=== PATIENT | male | born 1960 | race Caucasian/White ===

== ENCOUNTER 2024-06-16 12:46 | Inpatient (IN) | payer MEDICARE, SELFPAY ==
[2024-06-16] VITALS (7 sets, daily range): BP systolic 111–130; BP diastolic 60–66; PULSE 71–130; RESP 12–24; TEMP 37.1–37.8; O2SAT 93–99; BMI 56.2
--- NOTE | 2024-06-16 12:43 | ECG_ITS ---
APPROVED REPORT Exam: Resting ECG HR:102 bpm ECG Measurements Heart Rate 102 AXES QRSd 101 QRS 132 QT 365 T 115 QTc 424 Conclusion ATRIAL FIBRILLATION WITH RAPID VENTRICULAR RESPONSE POSSIBLE ANTERIOR MYOCARDIAL INFARCTION , OF INDETERMINATE AGE [30 ms Q WAVE IN V3/V4, OR R < 0.2 mV IN V4] ABNORMAL ECG UNCONFIRMED REPORT Electronically signed by : Cullen Felix, 06/16/2024 15:23:35
--- NOTE | 2024-06-16 12:50 | XR_ITS ---
FINAL REPORT CLINICAL HISTORY: Shortness of breath COMPARISON: None FINDINGS: A single frontal view of the chest was obtained. No acute pulmonary opacity is present. There is no evidence of effusion or pneumothorax. Mediastinum is unremarkable. There are fixation rods involving most of the thoracic spine. Heart size is mildly enlarged. IMPRESSION: Mild cardiomegaly. Reviewed, Interpreted and Dictated by Aixa Carrillo MD Transcribed by Amanda Landa Authenticated and [facility]
--- NOTE | 2024-06-16 12:54 | ED_ITS ---
<Statement entered by Jennifer Felix MD - 06/18/24 08:22> I was consulted by the KRISTY, and we discussed the complexity of the problems being addressed. I approved the treatment and management plan for this patient's care in the emergency department, thus performing a substantive portion of the medical decision making. Jennifer Felix MD, MOE, FACEP Discharge Plan Disposition Patient Disposition: Admitted Condition: Serious Prescriptions Prescriptions: No Action torsemide 20 mg tablet 20 mg PO DAILY Patient Comments: TAKE 1 TABLET BY MOUTH ONCE DAILY metoprolol succinate 50 mg tablet extended release 24 hr 50 mg PO DAILY Patient Comments: TAKE 1 TABLET BY MOUTH DAILY valsartan 40 mg tablet 40 mg PO DAILY Patient Comments: TAKE 1 TABLET BY MOUTH DAILY Referrals Follow up/Referrals: Saulo Martinez DO [Primary Care Provider] - See instructions Clinical Impressions Clinical Impression: Adult failure to thrive Cellulitis Qualifiers: Site of cellulitis: extremity Site of cellulitis of extremity: lower extremity Laterality: left Qualified Code(s): L03.116 - Cellulitis of left lower limb Acute exacerbation of CHF (congestive heart failure) Qualifiers: Heart failure type: unspecified Qualified Code(s): I50.9 - Heart failure, unspecified Print Language Print Language: Nigerian Discharge ED Provider: Gino Ardon General Adult HPI General Chief complaint: Weakness Stated complaint: Weakness/LE swelling Time Seen by Provider: 06/16/24 12:50 Mode of Arrival: EMS Source of Information: Patient and EMS Description of Symptoms (Recalled from ER Triage Doc. by RN): increased weakness,fever, wounds. pt spemt 3 weeks in [facility], discharged 3 weeks ago History of Present Illness HPI narrative: Patient presents for increasing swelling weakness redness of his legs. Patient has multiple comorbidities and is spent the majority of April and May hospitalized or in acute rehab. We are waiting on the discharge summary from [facility] for full summary however patient reportedly arrived in March in bad shape with multiple infected decubitus ulcers diabetic foot ulcers venous stasis ulcers. Patient reports that they diuresed over 115 pounds from him over the course of his hospital stays and reports that he weighed 388 pounds at the time of his discharge 3 weeks ago. Patient is residing with his sister who is helping with wound care however she is of limited resources and given the patient's body habitus very difficult to manage him fully. He apparently was not a candidate for rehab placement after his last discharge and so they have been trying to manage at home. Patient also reports that he has been unable to check his blood sugar his he does not have access to a glucometer, he is supposed to be on Eliquis for chronic A-fib has been out of that since his discharge. He does not have a local doctor as he is from [place] and has not establish care with 1 on an outpatient basis yet. Patient denies chest pain fever chills hemoptysis hematochezia melena nausea vomiting diarrhea but does endorse that he has chronic wounds on both the backs of his legs and on his buttocks. He reports that his left leg has turned significantly red proximally which is new since his discharge as well. Related Data Home Medications ?Medication ?Instructions ?Recorded ?Confirmed metoprolol succinate 50 mg 50 mg PO DAILY 06/16/24 06/16/24 tablet,extended release 24 hr torsemide 20 mg tablet 20 mg PO DAILY 06/16/24 06/16/24 valsartan 40 mg tablet 40 mg PO DAILY 06/16/24 06/16/24 Allergies Allergy/AdvReac Type Severity Reaction Status Date / Time hydromorphone (From Dilaudid) AdvReac Vomiting Verified 06/16/24 12:57 morphine AdvReac Vomiting Verified 06/16/24 12:57 [facility] Disclaimer: The information contained in this section may have been updated after the patient was seen, as this information can be updated by other users. Social History Smoking Status: Never smoker alcohol intake: never current occupational status: retired and disabled Travel in the last 8 weeks: None ROS Obtained: Yes Systems reviewed as appropriate & no additional complaints except as documented Physical Exam General General appearance: alert and in no apparent distress Respiratory Respiratory exam: Present normal lung sounds bilaterally Cardiovascular Cardiovascular exam: Present tachycardia and irregular rhythm Neurological Exam Neurological exam: Present alert, oriented X3 and CN II-XII intact Medical Decision Making Medical Records Medical records reviewed: Yes I reviewed the patient's medical records. Screening: Per USPSTF and CDC recommendations, given the prevalence of disease in our region, it is our hospital?s policy to screen for HIV and viral Hepatitis for all patients aged 18 and over and those with ongoing risk factors. Madi Inquiry Pt receiving controlled substance: No Vital Signs: 06/16/24 12:49 06/16/24 13:00 06/16/24 13:30 Temperature 98.7 F Temperature Source Oral Pulse Rate 94 H 105 H Pulse Rate [Right] 102 H Respiratory Rate 24 12 Blood Pressure 124/66 129/64 Blood Pressure [Right Arm] 111/63 Blood Pressure Mean 94 Blood Pressure Mean [Right Arm] 79 02 Sat by Pulse Oximetry 97 97 98 Oxygen Delivery Method Room Air Room Air Room Air 06/16/24 14:00 Temperature Temperature Source Pulse Rate 90 Pulse Rate [Right] Respiratory Rate 14 Blood Pressure 125/65 Blood Pressure [Right Arm] Blood Pressure Mean Blood Pressure Mean [Right Arm] 02 Sat by Pulse Oximetry 97 Oxygen Delivery Method Room Air Lab Data Lab results reviewed: Yes I reviewed the patient's lab results. Lab Results 06/16/24 12:55: Sodium 133 L, Potassium 4.3, Chloride 96 L, Carbon Dioxide 32 H, Anion Gap 9.3, BUN 30 H, Creatinine 0.90, Estimated Creat Clear 92, Estimated GFR 86, Est GFR ( Amer) 103, Glucose 330 H, Calcium 9.0, Magnesium 2.0, Total Bilirubin 0.4, AST 28, ALT 27, Alkaline Phosphatase 183 H, Troponin I < 0.01, NT-Pro-B Natriuret Pep 3540 H, Total Protein 6.9, Albumin 3.7, Globulin 3.2, Albumin/Globulin Ratio 1.2, Procalcitonin 0.301 06/16/24 12:57: WBC 10.9 H, RBC 4.21 L, Hgb 10.3 L, Hct 33.5 L, MCV 79.6 L, MCH 24.5 L, MCHC 30.7 L, RDW 17.9 H, Plt Count 303, MPV 9.8, Neut % (Auto) 84.4 H, L ymph % (Auto) 9.4 L, [place] % (Auto) 5.0, Eos % (Auto) 0.6, Baso % (Auto) 0.1, N eut # (Auto) 9.2 H, Lymph # (Auto) 1.0, [place] # (Auto) 0.5, Eos # (Auto) 0.1, Baso # (Auto) 0.0, PT 11.4, INR 1.02 06/16/24 13:03: VBG pH 7.34, VBG pCO2 54.8 H, VBG pO2 34.2, VBG HCO3 29.0, VBG Total CO2 30.7 H, VBG O2 Saturation 62.1, VBG Base Excess 3.3 H, VBG Lactic Acid 1.2 06/16/24 13:05: Chlamy pneumoniae PCR Not detected, Adenovirus (PCR) Not detected, B. pertussis DNA (PCR) Not detected, Coronavirus OC43 (PCR) Not detected, Coronavirus HKU1 (PCR) Not detected, Coronavirus 229E (PCR) Not detected, SARS-CoV-2 (PCR) Not detected, Coronavirus NL63 (PCR) Not detected, Human Metapneumovir PCR Not detected, Influenza A (H1) PCR Not detected, Influ A (H1N1/09) PCR Not detected, Influenza A (H3) PCR Not detected, Influenza Type A (PCR) Not detected, Influenza Type B (PCR) Not detected, M. pneumoniae (PCR) Not detected, Parainfluenza 1 (PCR) Not detected, Parainfluenza 2 (PCR) Not detected, Parainfluenza 3 (PCR) Not detected, Parainfluenza 4 (PCR) Not detected, RSV (PCR) Not detected, Entero/Rhino (PCR) Not detected 06/16/24 12:57 06/16/24 12:55 Orders (Tests/Meds): ED MEDICATIONS Generic Name Dose Route Start Last Admin Trade Name Freq PRN Reason Stop Dose Admin Benzonatate 100 mg 06/16/24 15:30 06/16/24 15:23 Benzonatate 100mg Capsule PO 07/16/24 15:29 100 mg ONCE JESSICA Administration Vancomycin HCl 3,000 mg/ 500 mls @ 166.667 mls/hr 06/16/24 15:00 06/16/24 14:53 Sodium Chloride IV 06/16/24 17:59 166.667 mls/hr ONCE ONE Administration Discontinued Medications Generic Name Dose Route Start Last Admin Trade Name Freq PRN Reason Stop Dose Admin Albuterol/Ipratropium 3 ml 06/16/24 15:36 06/16/24 15:38 Ipratropium/Albuterol 3 Ml Neb IH 06/16/24 15:37 3 ml ONCE ONE Administration Bumetanide 1 mg 06/16/24 14:07 06/16/24 14:36 Bumetanide 1mg/4ml Vial IV 06/16/24 14:08 1 mg ONCE ONE Administration Ketorolac Tromethamine 15 mg 06/16/24 13:43 06/16/24 13:49 Ketorolac 30mg/Ml Vial IV 06/16/24 13:44 15 mg ONCE ONE Administration Miscellaneous 1 each 06/16/24 14:45 Vancomycin Consult Request NOTAPPLIC 07/16/24 14:44 CONSULT PHARMACY [facility] Ondansetron HCl 4 mg 06/16/24 13:07 06/16/24 13:14 Ondansetron 4mg/2ml Vial IV 06/16/24 13:08 4 mg ONCE ONE Administration ORDERS Category Date Time Status Chest XR -- portable [XR chest portable] Stat Exams 06/16/24 12:50 Completed BNP [NT Pro Brain Natriuretic Pep.] Stat Lab 06/16/24 12:55 Completed CBC w/Auto Diff [Complete Blood Count Auto Diff] Stat Lab 06/16/24 12:57 Completed CMP [Comprehensive Metabolic Panel] Stat Lab 06/16/24 12:55 Completed Full Resp Panel w/COVID ([facility]) Routine Lab 06/16/24 13:05 Completed INR [Prothrombin Time INR] Stat Lab 06/16/24 12:57 Completed Magnesium Stat Lab 06/16/24 12:55 Completed Procalcitonin Stat Lab 06/16/24 12:55 Completed Trop I [Troponin I] Stat Lab 06/16/24 12:55 Completed Troponin I Q3H Lab 06/16/24 16:00 Ordered Troponin I Q3H Lab 06/16/24 19:00 Ordered UA [Urinalysis and Microscopic] Stat Lab 06/16/24 12:51 Ordered Blood Culture Stat Micro 06/16/24 12:57 Received Wound Culture and Gram Stain Stat Micro 06/16/24 14:35 Results VBG [Venous Blood Gas] Stat RT 06/16/24 13:03 Completed Tissue Perfus/Sepsis Re-Eval Sepsis Re-Evaluation Performed: Yes Date Performed: 06/16/24 Time Performed: 14:52 HEART Score History (anamnesis): Slightly suspicious ECG: Non-specific disturbance Age: 45-65 years Risk factors: Atherosclerosis history Troponin: </= normal limit HEART Score: 4 Medical Decision Narrative: In summary patient is a 83-year-old male who presents to the emergency department for evaluation of asthenia and volume overload. Patient is initially normotensive at 111/63 and atrial fibrillation with rapid ventricular response but a rate hovering around 100 and atrial fibrillation RVR on the bedside monitor breathing 24 times a minute satting at 97% on room air upon arrival, afebrile at 98.7. Physical exam is remarkable for a severely morbidly obese, with a BMI of 56 which is only an estimate as he is heavier than our scales in the ER can weigh, who appears to be breathless but otherwise in no acute distress. Physical exam is remarkable for multiple stages of wounds across his entire torso but predominantly concerning all the ones on his posterior calves and buttocks. The ones on his buttocks appear to be superficial the ones on his bilateral posterior lower extremities appear to be venous stasis versus pressure or both. Both feet are erythematous appearing he has tense brawny edema and brawny skin. There is erythema however of the proximal left thigh and the borders have been marked by myself. He also has an area on his right flank that is also been marked by myself. He has no fluctuance no actual purulence noted. Patient has clear breath sounds currently without adventitious sounds noted.. Differential diagnosis includes cellulitis versus lymphangitis versus venous stasis versus heart failure versus hyperglycemia versus blood clot versus sepsis etc. Initial workup will be conducted with [facility] labs twelve-lead EKG plain film chest x-ray analysis.. Initial interventions were considered include fluid challenge versus diuresis versus antibiotics however will await initial workup before initiating as patient is currently hemodynamically stable. Initial workup reviewed by me and his hematologic labs are remarkable for white count of 10.9 hemoglobin and hematocrit of 10.3 and 33.5 respectively with a platelet count of 303 absolute neutrophil count of 9.2, INR is 1.02, VBG shows pH 7.34 with a VBG lactic acid of 1.2. CMP is significant for a sodium of 133 potassium 4.3 CO2 of 32 gap of 9.3 creatinine 0.9 GFR is 86 serum glucose 330, alk phos 183 initial troponin is less than 0.01 NT proBNP is elevated at 3540 and my informal interpretation of his plain from chest x-ray shows no pleural effusions or significant pulmonary edema but does show cardiomegaly. Given his volume overload we have initiated blood cultures, Bumex dose and then started vancomycin. I then had a direct discussion with hospital medicine regarding patient SURESH findings and patient management and he will subsequently be admitted for further evaluation and care.. Critical Care Critical Care Time Critical Care Time: Yes Attestation: On 06/16/24, the high probability of a clinically significant, sudden or life threatening deterioration of the following system(s) required my full and direct attention, intervention and personal management. The time I documented below is in addition to time spent performing reported procedures but includes the following listed in this critical care notation. Total Time Total Critical Care Time: 35
--- NOTE | 2024-06-16 13:04 | PC.NURSE ---
trent guerrier spoke with magdi from respiratory about VBG sent to lab
[2024-06-16 13:07] LABS: Lactate Venous 1.2 mmol/L (0.4-2.0); VBG Base Excess 3.3 mmol/L (-2.4-2.3); VBG Oxygen Saturation 62.1 % (50-70); VBG PCO2 54.8 mmol/L (35-51); VBG PH 7.34 mmol/L (7.31-7.41); VBG PO2 34.2 mmol/L (28-40); VBG Total CO2 30.7 mmol/L (23-27)
[2024-06-16 13:09] LABS: Adenovirus,PCR Not Detected (NotDetected); Bordetella Pertussis Not Detected (NotDetected); Chlamydophila Pneumoniae, PCR Not Detected (NotDetected); Coronavirus 19, PCR Not Detected (NotDetected); Coronavirus 229E Not Detected (NotDetected); Coronavirus NL63 Not Detected (NotDetected); Coronavirus OC43 Not Detected (NotDetected); Coronovirus HKU1,PCR Not Detected (NotDetected); Human Metapneumovirus Not Detected (NotDetected); Influenza A, PCR Not Detected (NotDetected); Influenza AH1, 2009 Not Detected (NotDetected); Influenza AH1, PCR Not Detected (NotDetected); Influenza AH3,PCR Not Detected (NotDetected); Influenza B, PCR Not Detected (NotDetected); Mycoplasma Pneumoniae, PCR Not Detected (NotDetected); Parainfluenza 1, PCR Not Detected (NotDetected); Parainfluenza 2, PCR Not Detected (NotDetected); Parainfluenza 3, PCR Not Detected (NotDetected); Parainfluenza 4, PCR Not Detected (NotDetected); Respiratory Syncytial Virus Not Detected (NotDetected); Rhinovirus/Enterovirus Not Detected (NotDetected)
[2024-06-16 13:11] LABS: Basophils % 0.1 % (0.1-2.0); Eosinophils # 0.1 K/mm3 (0.0-0.4); Eosinophils % 0.6 % (0.1-12.0); Hematocrit 33.5 % (42.0-52.0); Hemoglobin 10.3 g/dL (14.1-18.0); Lymphocytes % 9.4 % (10-50); Mean Corpuscular HGB Conc 30.7 g/dL (31.8-35.4); Mean Corpuscular Hemoglobin 24.5 pg (27.0-31.2); Mean Corpuscular Volume 79.6 fl (80-94); Mean Platelet Volume 9.8 fl (7.4-10.4); Monocytes # 0.5 K/mm3 (0.1-1.0); Neutrophils # 9.2 K/mm3 (1.8-7.8); Neutrophils % 84.4 % (37.0-80.0); Platelet Count 303 K/mm3 (142-424); Red Blood Count 4.21 M/mm3 (4.60-6.20); Red Cell Distribution Width 17.9 % (11.5-17.5); White Blood Count 10.9 K/mm3 (4.8-10.8)
[2024-06-16] MEDS: ONDANSETRON 4MG/2ML VIAL 4 MG IV ×2 (13:14→22:48)
[2024-06-16 13:15] LABS: Albumin Level 3.7 g/dl (3.5-5.0); Chloride 96 mmol/L (98-107)
[2024-06-16 13:16] LABS: Sodium 133 mmol/L (136-145)
[2024-06-16 13:18] LABS: Blood Urea Nitrogen 30 mg/dl (9-20); Carbon Dioxide 32 mmol/L (22.0-30.0); Creatinine Clearance Estimated 92 mL/min (50-200); Estimated Glomerular Filt Rate 86 ml/min (>60); GFR (African American) 103 ML/MIN (>60)
[2024-06-16 13:19] LABS: Alanine Aminotransferase 27 U/L (12-78); Albumin/Globulin Ratio 1.2 (1.1-1.8); Alkaline Phosphatase 183 U/L (38-126); Anion Gap 9.3 mEq/L (5-15); Aspartate Amino Transferase 28 U/L (17-59); Bilirubin,Total 0.4 mg/dl (0.2-1.3); Globulin 3.2 g/dL (1.3-3.2); Glucose 330 mg/dl (74-100); Potassium 4.3 mmoL/L (3.5-5.1); Total Protein,Serum 6.9 g/dl (6.3-8.2)
[2024-06-16 13:20] LABS: INR 1.02 (0.9-1.1); Prothrombin Time 11.4 seconds (10.1-12.5)
[2024-06-16 13:27] LABS: NT Pro Brain Natriuretic Pep. 3540 pg/mL (0-125)
[2024-06-16 13:35] LABS: Troponin I < 0.01 ng/ml (0.00-0.034)
[2024-06-16] MEDS: KETOROLAC 30MG/ML VIAL 15 MG IV (13:49)
--- NOTE | 2024-06-16 14:13 | PC.NURSE ---
Called [facility] to receive records.
--- NOTE | 2024-06-16 14:31 | PC.NURSE ---
cultures obtained of pts wounds in perineum
--- NOTE | 2024-06-16 14:35 | PC.NURSE ---
Received records from [facility], given to MIAH LEAL
[2024-06-16] MEDS: BUMETANIDE 1MG/4ML VIAL 1 MG IV (14:36)
[2024-06-16] MEDS: SODIUM CHLORIDE 0.9% IV (14:53)
[2024-06-16] MEDS: VANCOMYCIN HCL IV (14:53)
[2024-06-16 14:57] LABS: Procalcitonin 0.301 ng/mL (0.0-2.0)
--- NOTE | 2024-06-16 15:22 | [facility].PHAINT1 ---
Pharmacy Intervention Comments: MEDICATION RECONCILIATION COMPLETED ON PATIENT USING EXTERNAL FILL HISTORY FROM PHARMACY. -LISA CALDERON, JEANCARLOSD
[2024-06-16] MEDS: BENZONATATE 100MG CAPSULE 100 MG PO (15:23)
[2024-06-16] MEDS: IPRATROPIUM/ALBUTEROL 3 ML NEB IH ×2 (15:38→20:33)
--- NOTE | 2024-06-16 15:40 | PC.NURSE ---
at bs with pt and famiy member
--- NOTE | 2024-06-16 15:42 | PC.NURSE ---
I rounded on the pt and took him two pillows to help resposition for comfort. no other needs voiced. no new complaints. call wynne in reach.
--- NOTE | 2024-06-16 15:54 | PC.NURSE ---
Dr. Wu at BS for update on POC
--- NOTE | 2024-06-16 16:10 | PC.NURSE ---
AB RN called and requested a bed for admission
--- NOTE | 2024-06-16 16:14 | EXP.HP ---
History of Present Illness *Admission Date: 06/16/24 *Reason for visit:: Shortness of breath, swelling and redness in left leg *History of present illness: Mr. Christiansen is a 63-year-old male who was recently moved to the area to live with his sister due to poor health and declining status living with family in [place]. He has a history of morbid obesity, CHF, diabetes, LORI. Had developed significant debility and numerous pressure wounds. Per review of notes from [facility] and ER documentation, the patient had recently spent 6 weeks hospitalized at [facility] for heart failure, infected decubitus wounds, osteomyelitis of his foot status post amputation, and significant debility. He discharged to rehab for several weeks and then got readmitted to [facility] for 3 more weeks due to recurrent heart failure and volume overload. Was not a candidate for rehab placement after that admission and discharged home where he has been for approximately 3 weeks. Has not had follow-up as an outpatient with PCP or specialists as of yet. Taking some but not all of the medications prescribed at last visit. Has not been on blood thinners due to cost and insurance issues. Received stents in his lower extremities due to peripheral artery disease during one of his previous hospitalizations. Diabetes has been poorly controlled as he has not had a glucometer. He presented to the ER today due to worsening weakness, shortness of breath, swelling in legs and redness especially in his left leg. On presentation, concern for acute on chronic heart failure, volume overload, cellulitis. Patient's weight is up approximately 40 pounds from his last documented weight and discharge from [facility] several weeks ago. He has draining ulcerative wounds on his lower extremities. Redness progressing up his left leg almost to his thigh. Also has a red patch of skin on his right side. Decubitus wound on his bottom reportedly appears better than images from when he first presented to [facility] in March. He is afebrile and has normal kidney function on labs and a white count of 10.9. Is dyspneic, unable to lay flat due to shortness of breath, chest imaging positive for cardiomegaly. Medicine was consulted for consideration for admission and further management. On evaluation, patient appears in moderate distress. Is morbidly obese and chronically ill. Able to answer questions but dyspneic after each sentence. On room air with sats in the low 90s. Currently receiving IV vancomycin. Received one-time dose of Bumex in the ER. After evaluation, determination made that patient was appropriate for admission at this time as there is no emergent need for transfer however had candid conversation with patient that if he has worsening condition, needs imaging such as CT's, we may have to transfer due to his size and complexity and limitations of our facility. Patient states understanding. Patient sisters at bedside helps supplement history. [facility] Disclaimer: The information contained in this section may have been updated after the patient was seen, as this information can be updated by other users. Medical History LORI (obstructive sleep apnea) Social History Smoking Status: Never smoker alcohol intake: never current occupational status: retired and disabled Travel in the last 8 weeks: None Have you lived/traveled outside US in past 30 days?: No Contact w/someone who lives/traveled outside US past 30 days?: No Exposure to someone with infectious disease in past 14 days?: No Do you have a fever (greater than 100.4 F or 38 C)?: No Have you tested positive for COVID-19: No Exposed to someone with COVID-19 in past 14 days?: No Do you have a sore throat?: No Do you have a cough?: No Do you have any weakness?: No Do you have any diarrhea?: No Are you experiencing any unusual bleeding?: No Do you have any muscle aches/pain?: No Do you have any abdominal pain?: No Are you experiencing loss of taste or smell?: No Review of Systems Review of Systems Review of systems (narrative): 14 point review of systems performed, pertinent positives and negatives as per HPI Meds Home Medications and Allergies Home Medications ?Medication ?Instructions ?Recorded ?Confirmed ?Type metoprolol succinate 50 mg 50 mg PO DAILY 06/16/24 06/16/24 History tablet,extended release 24 hr torsemide 20 mg tablet 20 mg PO DAILY 06/16/24 06/16/24 History valsartan 40 mg tablet 40 mg PO DAILY 06/16/24 06/16/24 History New Prescriptions to Start Prescriptions: Allergies Allergy/AdvReac Type Severity Reaction Status Date / Time hydromorphone (From Dilaudid) AdvReac Vomiting Verified 06/16/24 12:57 morphine AdvReac Vomiting Verified 06/16/24 12:57 Exam Data for Last 24 hours Vital signs and Labs for Last 24 Hours: Temp Pulse Resp BP Pulse Ox O2 Del Method 98.7 F 90 14 125/65 97 Room Air 06/16/24 12:49 06/16/24 14:00 06/16/24 14:00 06/16/24 14:00 06/16/24 14:00 06/16/24 14:00 Laboratory Results - last 24 hr 06/16/24 12:55: Sodium 133 L, Potassium 4.3, Chloride 96 L, Carbon Dioxide 32 H, Anion Gap 9.3, BUN 30 H, Creatinine 0.90, Estimated Creat Clear 92, Estimated GFR 86, Est GFR ( Amer) 103, Glucose 330 H, Calcium 9.0, Magnesium 2.0, Total Bilirubin 0.4, AST 28, ALT 27, Alkaline Phosphatase 183 H, Troponin I < 0.01, NT-Pro-B Natriuret Pep 3540 H, Total Protein 6.9, Albumin 3.7, Globulin 3.2, Albumin/Globulin Ratio 1.2, Procalcitonin 0.301 06/16/24 12:57: WBC 10.9 H, RBC 4.21 L, Hgb 10.3 L, Hct 33.5 L, MCV 79.6 L, MCH 24.5 L, MCHC 30.7 L, RDW 17.9 H, Plt Count 303, MPV 9.8, Neut % (Auto) 84.4 H, Lymph % (Auto) 9.4 L, [place] % (Auto) 5.0, Eos % (Auto) 0.6, Baso % (Auto) 0.1, Neut # (Auto) 9.2 H, Lymph # (Auto) 1.0, [place] # (Auto) 0.5, Eos # (Auto) 0.1, Baso # (Auto) 0.0, PT 11.4, INR 1.02 06/16/24 13:03: VBG pH 7.34, VBG pCO2 54.8 H, VBG pO2 34.2, VBG HCO3 29.0, VBG Total CO2 30.7 H, VBG O2 Saturation 62.1, VBG Base Excess 3.3 H, VBG Lactic Acid 1.2 06/16/24 13:05: Chlamy pneumoniae PCR Not detected, Adenovirus (PCR) Not detected, B. pertussis DNA (PCR) Not detected, Coronavirus OC43 (PCR) Not detected, Coronavirus HKU1 (PCR) Not detected, Coronavirus 229E (PCR) Not detected, SARS-CoV-2 (PCR) Not detected, Coronavirus NL63 (PCR) Not detected, Human Metapneumovir PCR Not detected, Influenza A (H1) PCR Not detected, Influ A (H1N1/09) PCR Not detected, Influenza A (H3) PCR Not detected, Influenza Type A (PCR) Not detected, Influenza Type B (PCR) Not detected, M. pneumoniae (PCR) Not detected, Parainfluenza 1 (PCR) Not detected, Parainfluenza 2 (PCR) Not detected, Parainfluenza 3 (PCR) Not detected, Parainfluenza 4 (PCR) Not detected, RSV (PCR) Not detected, Entero/Rhino (PCR) Not detected I & O for Last 24 hours: Intake & Output 06/13/24 06/14/24 06/15/24 06/16/24 23:59 23:59 23:59 23:59 Weight 204.117 kg Microbiology Reports for the Last 24 Hours: Microbiology 06/16/24 14:35 Buttock Gram Stain - Final Constitutional Constitutional: mild distress, morbidly obese, chronically ill appearing, disheveled and cooperative *Routine HEENT Exam Head: Present normocephalic Eye: Present EOMI and PERRL ENT: Present mucous membranes moist *Routine Neck Exam Neck: Present supple; Absent lymphadenopathy *Routine Respiratory Exam Respiratory: Present prolonged expiratory phase, rhonchi, crackles (bases) and distant breath sounds; Absent wheezes *Routine Cardiovascular Exam Cardiovascular: Present RRR *Routine Abdominal Exam Abdominal: Present soft, normoactive bowel sounds and obese; Absent tenderness *Routine Rectal Exam Rectal:: deferred *Routine Genitalia Exam Genitalia:: deferred *Routine Extremities Exam Extremities: Present edema (4+ to abdomen); Absent cyanosis or clubbing *Routine Skin Exam Skin: Present cyanosis (Left foot), erythema (up left leg to thigh), warm, lesions, wounds and rash; Absent mottling Comments: Stasis changes in bilateral lower extremities. Ulcerations posterior lower extremities bilaterally with weeping of serous fluid. Numerous excoriations on extremities and torso *Routine Neurological Exam Neurological: Present alert and oriented X3 Assessment and Plan *Assessment and plan (1) Acute on chronic heart failure with preserved ejection fraction (HFpEF): Status: Acute Category: Medical Code(s): I50.33 - Acute on chronic diastolic (congestive) heart failure (2) Morbid obesity with BMI of 50.0-59.9, adult: Status: Acute Category: Medical Code(s): E66.01 - Morbid (severe) obesity due to excess calories; Z68.43 - Body mass index [BMI] 50.0-59.9, adult (3) Volume overload: Status: Acute Category: Medical Code(s): E87.70 - Fluid overload, unspecified (4) Venous stasis ulcer of both lower extremities without varicose veins: Status: Acute Category: Medical Code(s): I87.2 - Venous insufficiency (chronic) (peripheral); L97.919 - Non-pressure chronic ulcer of unspecified part of right lower leg with unspecified severity; L97.929 - Non-pressure chronic ulcer of unspecified part of left lower leg with unspecified severity (5) Cellulitis of left lower extremity: Status: Acute Category: Medical Code(s): L03.116 - Cellulitis of left lower limb (6) Microcytic anemia: Status: Acute Category: Medical Code(s): D50.9 - Iron deficiency anemia, unspecified (7) Adult failure to thrive: Status: Acute Category: Medical Code(s): R62.7 - Adult failure to thrive (8) LORI (obstructive sleep apnea): Status: Acute Category: Medical Code(s): G47.33 - Obstructive sleep apnea (adult) (pediatric) (9) Diabetes mellitus: Status: Acute Category: Medical Code(s): E11.9 - Type 2 diabetes mellitus without complications Plan 63-year-old male with morbid obesity, acute on chronic HFpEF, volume overload, cellulitis. Discussed case with ER physician, after much discussion and evaluation of patient, decision made to admit for acute on chronic conditions, IV antibiotics, aggressive diuresis, and evaluation by therapy for possible placement. Acute on Chronic HFpEF A-fib Hypertension -Reviewed limited echo from records from [facility], shows diastolic dysfunction with preserved EF. Cardiomegaly on chest imaging. Aggressive diuresis due to volume overload, patient has at least 40 pounds of fluid based on his weights on discharge from [facility] and current weight on admission. Initiated on Bumex drip 0.5 mg/h. Place Chiu for strict I's and O's. -Anticipate electrolyte shifts, potassium 4.3, sodium 133. Will monitor electrolytes closely with CBC, CMP, magnesium ordered for the morning. Electrolyte protocol replacement ordered. -Repeat echo ordered to evaluate EF and RVSP. Cardiology consulted to assist with management and medical optimization. -Supplemental oxygen if needed, currently stable on room air. Goal sats greater 90% -Resume metoprolol succinate 50 mg daily. Will hold on ARELY/ARB/ARNI pending cardiology recommendations -Aspirin 81 mg daily. -Eliquis 40 mg SQ twice daily, will discuss NOAC with cardiology due to [id number] risk. Diabetes: - A1c 9.9. Initiate sliding scale insulin with fingersticks ACHS. Will initiate 20 units Lantus this evening. Evaluate morning glucose. If remains above 150, will double Lantus to 40 units tomorrow. Diabetic counseling during admission from nutrition. Diabetic diet of 1800 jone. -Will consider initiation of Jardiance for diabetes and heart failure as above cellulitis -White count 10.9. ESR and CRP ordered. Repeat inflammatory markers with ESR and CRP ordered for the morning to trend Chronic stasis dermatitis with decubitus ulcers -Concern for cellulitis in left lower leg. Initiate vancomycin IV and cefepime 2gm q8h -Blood cultures obtained and pending along with wound culture from foot. -Wound consult placed for decubitus ulcers on bilateral posterior legs -Mupirocin for excoriations on torso -If wounds on foot worsen, will consider podiatry consult next week when she is back in the hospital. Kidney function appears normal at this time with BUN of 30, creatinine 0.9. Monitor for LUPE. Microcytic anemia: Hemoglobin 10.3. Transfusion threshold hemoglobin less than 7. No active signs of bleeding. Iron studies ordered for the morning, will consider replacement pending study results LORI: Consider oxygen at night versus CPAP after discussion with patient about his home regimen. Morbid obesity complicates all aspects of his care. PT and OT consulted along with social work to assist with dispo planning in next site of care Full code Lovenox 40 mg SQ twice daily Diabetic diet
--- NOTE | 2024-06-16 16:21 | P.CONPHA_ITS ---
Pharmacy Consult Date: 06/16/24 Time: 16:21 Referring provider: DR. ROBERTS Reason for Consult:: VANCOMYCIN DOSING Allergies Allergy/AdvReac Type Severity Reaction Status Date / Time hydromorphone (From Dilaudid) AdvReac Vomiting Verified 06/16/24 12:57 morphine AdvReac Vomiting Verified 06/16/24 12:57 Home Medications ?Medication ?Instructions ?Recorded ?Confirmed ?Type metoprolol succinate 50 mg 50 mg PO DAILY 06/16/24 06/16/24 History tablet,extended release 24 hr torsemide 20 mg tablet 20 mg PO DAILY 06/16/24 06/16/24 History valsartan 40 mg tablet 40 mg PO DAILY 06/16/24 06/16/24 History New Prescriptions to Start Prescriptions: Height: 1.91 m Weight: 204.117 kg Laboratory Results:: Laboratory Results - last 24 hr 06/16/24 12:55: Sodium 133 L, Potassium 4.3, Chloride 96 L, Carbon Dioxide 32 H, Anion Gap 9.3, BUN 30 H, Creatinine 0.90, Estimated Creat Clear 92, Estimated GFR 86, Est GFR ( Amer) 103, Glucose 330 H, Calcium 9.0, Magnesium 2.0, Total Bilirubin 0.4, AST 28, ALT 27, Alkaline Phosphatase 183 H, Troponin I < 0.01, NT-Pro-B Natriuret Pep 3540 H, Total Protein 6.9, Albumin 3.7, Globulin 3.2, Albumin/Globulin Ratio 1.2, Procalcitonin 0.301 06/16/24 12:57: WBC 10.9 H, RBC 4.21 L, Hgb 10.3 L, Hct 33.5 L, MCV 79.6 L, MCH 24.5 L, MCHC 30.7 L, RDW 17.9 H, Plt Count 303, MPV 9.8, Neut % (Auto) 84.4 H, Lymph % (Auto) 9.4 L, [place] % (Auto) 5.0, Eos % (Auto) 0.6, Baso % (Auto) 0.1, Neut # (Auto) 9.2 H, Lymph # (Auto) 1.0, [place] # (Auto) 0.5, Eos # (Auto) 0.1, Baso # (Auto) 0.0, PT 11.4, INR 1.02 06/16/24 13:03: VBG pH 7.34, VBG pCO2 54.8 H, VBG pO2 34.2, VBG HCO3 29.0, VBG Total CO2 30.7 H, VBG O2 Saturation 62.1, VBG Base Excess 3.3 H, VBG Lactic Acid 1.2 06/16/24 13:05: Chlamy pneumoniae PCR Not detected, Adenovirus (PCR) Not detected, B. pertussis DNA (PCR) Not detected, Coronavirus OC43 (PCR) Not detected, Coronavirus HKU1 (PCR) Not detected, Coronavirus 229E (PCR) Not detected, SARS-CoV-2 (PCR) Not detected, Coronavirus NL63 (PCR) Not detected, Human Metapneumovir PCR Not detected, Influenza A (H1) PCR Not detected, Influ A (H1N1/09) PCR Not detected, Influenza A (H3) PCR Not detected, Influenza Type A (PCR) Not detected, Influenza Type B (PCR) Not detected, M. pneumoniae (PCR) Not detected, Parainfluenza 1 (PCR) Not detected, Parainfluenza 2 (PCR) Not detected, Parainfluenza 3 (PCR) Not detected, Parainfluenza 4 (PCR) Not detected, RSV (PCR) Not detected, Entero/Rhino (PCR) Not detected Assessment and Plan Assessment and plan all Dx Assessment and Plan for all problems:: Pharmacokinetic dosing service Objective: Patient: Floor: Age: 63 yo Serum creatinine: 0.90 mg/dL Height: 75.0 Inches Weight (kg): 204.1 Assessment: IBW (kg): 84.50 Dosing wt(kg): 204.1 Estimated Creatinine clearance (ml/min): 101.7 CRCL method: Cockcroft and Gault using ibw(default). Drug selected: Vancomycin Loading dose (mg): Vd (liters): 163.3 (factor used: 0.8 L/kg) Stephan (hr-1): 0.089 Half life (hrs): 7.79 CLvanco=?? 14.534 L/hr Recommended dose: 2500 mg Interval: 8 hrs Infusion time (hrs): 2.0 Predicted peak (mcg/mL): 27.5 Predicted trough (mcg/mL): 16.12 Total body weight is being used for vancomycin dosing. Recommendations: Give Vancomycin 2500 mg q 8 hrs with an expected Cpeak of 27.5 mcg/ml and an expected Ctrough of 16.12 mcg/ml AUC 0-24 /LENARD Data: LENARD 0.5 mcg/mL:?? AUC/LENARD:? 1032.1 LENARD 1.0 mcg/mL:?? AUC/LENARD:? 516.0 --------- LENARD 1.5 mcg/mL:?? AUC/LENARD:? 344.0 LENARD 2.0 mcg/mL:?? AUC/LENARD:? 258.0 Thank you for the consult, will continue to follow. -JEANCARLOS YOUSSEFD
--- NOTE | 2024-06-16 16:22 | PC.NURSE ---
Report called to Susie Kasper RN
[2024-06-16] MEDS: BUMETANIDE 10 MG in 0.9 % SODIUM CHLORIDE 60 ML 5 MG IV (17:46)
[2024-06-16] MEDS: CEFEPIME HCL 2 GM in 0.9 % SODIUM CHLORIDE 100 ML IV (17:48)
[2024-06-16 18:34] LABS: C-Reactive Protein 313.6 mg/L (0-4)
[2024-06-16 18:40] LABS: Erythrocyte Sedimentation Rate 55 mm/hr (0-20)
[2024-06-16 18:49] LABS: Troponin I 0.01 ng/ml (0.00-0.034)
--- NOTE | 2024-06-16 18:49 | PC.NURSE ---
Addendum entered by Debby Maldonado RN 06/16/24 19:27: told pt i would be placing a peña catheter and he said at the last hospital he was at they had a rough time inserting one. pt states he does not want one and would rather have the female cathiwick stating thats what they used at the other hospital. Original Note: pt brought up to room from er in a wheelchair. he smells like urine and has refused a bath. pt states he uses a standard walker at home to get around and he does majority of ADLs independently. attempted to transfer from wheelchair to bed and states he is weak and unable to help. currently waiting on help to transfer. BLE +4 weeping clear fluid. pt has scattered scabs and discoloration t/o body. pt also states hes got a small place on his buttocks, unable to see wounds at this time. med rec not completed, pt does not know all of meds he is on, says my daughter will be in later and she may know .
[2024-06-16 18:52] LABS: HIV Combo NEGATIVE (Negative)
[2024-06-16 19:00] LABS: Hepatitis C Ab Qual. W/ RFX NEGATIVE (Negative)
[2024-06-16 19:00] LABS: Thyroid Stimulating Hormone 1.16 uIU/mL (0.465-4.68)
[2024-06-16 19:03] LABS: Hemoglobin A1C 9.9 % (4.0-6.0)
[2024-06-16] MEDS: MUPIROCIN 2% OINTMENT 22GM TUBE TP (20:33)
[2024-06-16] MEDS: ENOXAPARIN 60MG/0.6ML SYRINGE 60 MG SUBCUT (20:33)
[2024-06-16] MEDS: PANTOPRAZOLE 40MG TABLET 40 MG PO (20:34)
[2024-06-16] MEDS: HYDROCODONE/APAP 5/325 MG TABLET 1 TAB PO (20:34)
[2024-06-16] MEDS: GABAPENTIN 300MG CAPSULE 300 MG PO (20:34)
[2024-06-16] MEDS: humaLOG 100 UNITS/ML 10ML VIAL (SSI) SUBCUT (20:36)
[2024-06-16] MEDS: INSULIN GLARGINE 100 UNITS/ML 3ML FLEXPEN 20 UNIT SUBCUT (20:36)
[2024-06-16 20:45] LABS: POC Glucose,Bedside 331 (70-110)
[2024-06-16] MEDS: BENZONATATE 100MG CAPSULE 200 MG PO (20:50)
--- NOTE | 2024-06-16 20:55 | PC.NURSE ---
unable to insert catheter r/t patient anatomy.
[2024-06-16 21:40] LABS: Troponin I < 0.01 ng/ml (0.00-0.034)
[2024-06-16] MEDS: METOPROLOL TARTRATE 5MG/5ML VIAL 5 MG IV (22:04)
--- NOTE | 2024-06-16 22:44 | XR_ITS ---
PROCEDURE INFORMATION: Exam: XR Chest Exam date and time: 06/16/2024 10:46 PM Age: 63 years old Clinical indication: Shortness of breath; Additional info: SOB TECHNIQUE: Imaging protocol: Radiologic exam of the chest. Views: 1 view. COMPARISON: CR XR CHEST PORTABLE 06/16/2024 1:00 PM FINDINGS: Lungs: Unremarkable. No consolidation. Pleural spaces: Unremarkable. No pleural effusion. No pneumothorax. Heart/Mediastinum: Stable cardiomegaly. Bones/joints: Unremarkable. Stable ORIF of visualized thoracic spine. IMPRESSION: No acute findings.
[2024-06-16] MEDS: HYDROMORPHONE 2MG/ML SYRINGE 0.5 MG IV (22:48)
[2024-06-16 23:34] LABS: Chloride 97 mmol/L (98-107); Sodium 134 mmol/L (136-145)
[2024-06-16 23:35] LABS: Potassium 3.9 mmoL/L (3.5-5.1)
[2024-06-16 23:38] LABS: Anion Gap 9.9 mEq/L (5-15); Blood Urea Nitrogen 27 mg/dl (9-20); Calcium 8.9 mg/dl (8.4-10.2); Carbon Dioxide 31 mmol/L (22.0-30.0); Creatinine Clearance Estimated 92 mL/min (50-200); Estimated Glomerular Filt Rate 86 ml/min (>60); GFR (African American) 103 ML/MIN (>60); Glucose 222 mg/dl (74-100)
[2024-06-17] VITALS (23 sets, daily range): BP systolic 110–152; BP diastolic 55–82; PULSE 70–145; RESP 16–22; TEMP 36.7–37.9; O2SAT 90–98; BMI 55.9
[2024-06-17] MEDS: METOPROLOL TARTRATE 5MG/5ML VIAL 5 MG IV (00:15)
[2024-06-17] MEDS: KETOROLAC 30MG/ML VIAL 15 MG IV ×2 (00:28→21:01)
[2024-06-17] MEDS: dilTIAZem 25MG/5ML VIAL 25 MG IV (01:43)
[2024-06-17] MEDS: LEVALBUTEROL 1.25MG/3ML NEB 1.25 MG IH ×4 (02:33→18:40)
[2024-06-17] MEDS: CEFEPIME HCL 2 GM in 0.9 % SODIUM CHLORIDE 100 ML IV ×3 (03:36→19:20)
[2024-06-17] MEDS: dilTIAZem HCL 100 MG in 0.9 % SODIUM CHLORIDE 100 ML IV (04:04)
--- NOTE | 2024-06-17 04:04 | PC.NURSE ---
patient arrived to ICU unit from [facility] @03:50
[2024-06-17] MEDS: HYDROCODONE/APAP 5/325 MG TABLET 1 TAB PO ×2 (04:18→10:44)
[2024-06-17] MEDS: HYDROMORPHONE 2MG/ML SYRINGE 1 MG IV ×2 (05:03)
[2024-06-17] MEDS: ONDANSETRON 4MG/2ML VIAL 4 MG IV ×3 (05:04→17:25)
--- NOTE | 2024-06-17 05:44 | PC.NURSE ---
positive blood cultures resulted at 0540 called to deysi villatoro rn reported to Olivia gutierres at 0556
[2024-06-17 06:07] LABS: POC Glucose,Bedside 229 (70-110)
[2024-06-17] MEDS: humaLOG 100 UNITS/ML 10ML VIAL (SSI) SUBCUT ×4 (06:17→21:15)
[2024-06-17 06:21] LABS: Microscopic, Urine URINE MICROSCOPIC (MICROSCOPIC)
[2024-06-17 06:32] LABS: Basophils % 0.2 % (0.1-2.0); Eosinophils # 0.2 K/mm3 (0.0-0.4); Eosinophils % 1.2 % (0.1-12.0); Hematocrit 31.8 % (42.0-52.0); Hemoglobin 9.7 g/dL (14.1-18.0); Lymphocytes # 1.2 K/mm3 (0.7-4.5); Mean Corpuscular HGB Conc 30.5 g/dL (31.8-35.4); Mean Corpuscular Hemoglobin 23.8 pg (27.0-31.2); Mean Corpuscular Volume 78.1 fl (80-94); Mean Platelet Volume 9.7 fl (7.4-10.4); Monocytes # 0.8 K/mm3 (0.1-1.0); Monocytes % 6.8 % (1.7-9.3); Neutrophils # 9.8 K/mm3 (1.8-7.8); Neutrophils % 80.8 % (37.0-80.0); Platelet Count 321 K/mm3 (142-424); Red Blood Count 4.07 M/mm3 (4.60-6.20); Red Cell Distribution Width 17.7 % (11.5-17.5); White Blood Count 12.1 K/mm3 (4.8-10.8)
[2024-06-17 06:39] LABS: Alanine Aminotransferase 31 U/L (12-78); Albumin Level 3.4 g/dl (3.5-5.0); Albumin/Globulin Ratio 1.1 (1.1-1.8); Alkaline Phosphatase 172 U/L (38-126); Anion Gap 8.7 mEq/L (5-15); Aspartate Amino Transferase 33 U/L (17-59); Bilirubin,Total 0.4 mg/dl (0.2-1.3); Blood Urea Nitrogen 22 mg/dl (9-20); Calcium 8.4 mg/dl (8.4-10.2); Carbon Dioxide 30 mmol/L (22.0-30.0); Chloride 99 mmol/L (98-107); Chol/HDL Ratio 4.3 (1-3.5); Cholesterol 150 mg/dl (140-200); Creatinine Clearance Estimated 92 mL/min (50-200); Estimated Glomerular Filt Rate 86 ml/min (>60); GFR (African American) 103 ML/MIN (>60); Globulin 3.1 g/dL (1.3-3.2); Glucose 209 mg/dl (74-100); HDL Cholesterol 35 mg/dl (40-60); Magnesium 1.6 mg/dl (1.6-2.3); Potassium 3.7 mmoL/L (3.5-5.1); Sodium 134 mmol/L (136-145); Total Protein,Serum 6.5 g/dl (6.3-8.2); Triglycerides 182 mg/dl (30-150); VLDL Cholesterol 36 mg/dL (0-40)
[2024-06-17 06:50] LABS: C-Reactive Protein 246.9 mg/L (0-4); Direct LDL Cholesterol 65.94 mg/dL (100-129)
[2024-06-17 06:59] LABS: Appearance,Urine CLEAR (Clear); Bilirubin,Urine Negative (Negative); Blood, Urine Negative (Negative); Color,Urine YELLOW (Yellow); Glucose,Urine (UA) Negative (Negative); Ketones,Urine Negative (Negative); Leukocyte Esterase,Urine Negative (Negative); Nitrate,Urine Negative (Negative); PH,Urine 5.5 (5.0-8.5); Protein,Urine Negative (Negative); Urobilinogen,Urine 0.2 EU/dl (0.2)
[2024-06-17 07:05] LABS: Erythrocyte Sedimentation Rate 102 mm/hr (0-20)
[2024-06-17 07:18] LABS: RBC,Urine Occasional #/hpf (0-3); WBC,Urine Occasional #/hpf (0-3)
[2024-06-17] MEDS: MAGNESIUM SULFATE IN WATER 2 GM/50 ML PIGGYBACK IV ×2 (07:51→09:52)
[2024-06-17] MEDS: VANCOMYCIN HCL 2,500 MG in 0.9 % SODIUM CHLORIDE 500 ML 250 MG IV ×2 (07:51)
--- NOTE | 2024-06-17 08:00 | CA_ITS ---
APPROVED REPORT EXAM: Limited 2D Echocardiogram Jewelry Dipper: Jodie Lucio CRT Ht: 6 ft 3 in Wt: 455lbs BSA: 3.11 BP: 125/65 mmHg Indications: Afib, dm, Pt declined additional images due to pain while attempting apical images. Changed to a limited exam. Best exam possible. M-Mode Dimensions RVDd 3.57 cm (0.9-2.6) LA Diam 4.75 cm (1.9-4.0) LVDd 4.68 cm (3.5-5.7) LVDs 3.21 cm (3.5-5.7) IVSd 1.86 cm (0.6-1.1) PWd 1.33 cm (0.6-1.1) EF (Teich) 59.20% FS 31.40% EDV (Teich) 101.30 mL ESV (Teich) 41.30 mL LV Diastology E Decel Time 130 (160-240 msec) E/A Ratio 1.91 Aortic Valve AO Peak GR. 12.50 mmHg Mitral Valve MV E Max Ki. 70.0 (40-130 cm/s) MV A Velocity 36.0 (40-130 cm/s) E/A Ratio 1.91 MV PHT 38.0 ms Pulmonary Valve PV Peak Velocity 148.0 (50-150 cm/s) Tricuspid Valve TR P. Velocity 288.00 cm/s RAP Estimate 10.00 mmHg RVSP 43.10 mmHg Other Information Study Quality: Technically Difficult Conclusion This is a limited TTE to evaluate for LV systolic function. Limited windows are obtained. Technically difficult study. The left ventricle is normal in size. There is increased LV wall thickness. Regional wall motion cannot be reliably estimated due to technically difficult study. LV systolic function is grossly normal. LVEF is 55%. The right ventricle is not well visualized. In the setting of technically difficult study, future TTEs are suggested with administration of ultrasound enhancing agent. Electronically signed by : Shannon Crocker MD 06/17/2024 12:05:34
[2024-06-17] MEDS: BENZONATATE 100MG CAPSULE 200 MG PO (08:15)
--- NOTE | 2024-06-17 08:15 | PC.NURSE ---
Dr. Faye and Dr. Wu at bedside. Pt turned and wounds assessed. Dr. Faye states to use dry dressing. Pt educated on the importance of turning to help with wounds. Attempted to place pt on left side with wedge. patient refused and asked nurse to remove wedge. pt back on his back at this time.
[2024-06-17] MEDS: ENOXAPARIN 60MG/0.6ML SYRINGE 60 MG SUBCUT (08:17)
[2024-06-17] MEDS: ASPIRIN EC 81MG TABLET 81 MG PO (08:17)
--- NOTE | 2024-06-17 08:17 | P.CONS_ITS ---
History of Present Illness *Admission Date: 06/16/24 *Reason for visit:: Sacral/buttock wounds *History of present illness: Is a 61-year-old gentleman seen in consultation from the primary service for evaluation regarding sacral/buttock wounds. The patient reports that his sacral/buttock wounds got much worse after recent hospitalization in [place] . See HPI forwarded from admission H&P/emergency department evaluation below. Forwarded from admission H&P/emergency department evaluation: Mr. Christiansen is a 63-year-old male who was recently moved to the area to live with his sister due to poor health and declining status living with family in [place]. He has a history of morbid obesity, CHF, diabetes, LORI. Had developed significant debility and numerous pressure wounds. Per review of notes from [facility] and ER documentation, the patient had recently spent 6 weeks hospitalized at [facility] for heart failure, infected decubitus wounds, osteomyelitis of his foot status post amputation, and significant debility. He discharged to rehab for several weeks and then got readmitted to [facility] for 3 more weeks due to recurrent heart failure and volume overload. Was not a candidate for rehab placement after that admission and discharged home where he has been for approximately 3 weeks. Has not had follow-up as an outpatient with PCP or specialists as of yet. Taking some but not all of the medications prescribed at last visit. Has not been on blood thinners due to cost and insurance issues. Received stents in his lower extremities due to peripheral artery disease during one of his previous hospitalizations. Diabetes has been poorly controlled as he has not had a glucometer. He presented to the ER today due to worsening weakness, shortness of breath, swelling in legs and redness especially in his left leg. On presentation, concern for acute on chronic heart failure, volume overload, cellulitis. Patient's weight is up approximately 40 pounds from his last documented weight and discharge from [facility] several weeks ago. He has draining ulcerative wounds on his lower extremities. Redness progressing up his left leg almost to his thigh. Also has a red patch of skin on his right side. Decubitus wound on his bottom reportedly appears better than images from when he first presented to [facility] in March. He is afebrile and has normal kidney function on labs and a white count of 10.9. Is dyspneic, unable to lay flat due to shortness of breath, chest imaging positive for cardiomegaly. Medicine was consulted for consideration for admission and further management. On evaluation, patient appears in moderate distress. Is morbidly obese and chronically ill. Able to answer questions but dyspneic after each sentence. On room air with sats in the low 90s. Currently receiving IV vancomycin. Received one-time dose of Bumex in the ER. After evaluation, determination made that patient was appropriate for admission at this time as there is no emergent need for transfer however had candid conversation with patient that if he has worsening condition, needs imaging such as CT's, we may have to transfer due to his size and complexity and limitations of our facility. Patient states understanding. Patient sisters at bedside helps supplement history. [facility] Disclaimer: The information contained in this section may have been updated after the patient was seen, as this information can be updated by other users. Medical History LORI (obstructive sleep apnea) Social History Smoking Status: Never smoker alcohol intake: never current occupational status: retired and disabled Travel in the last 8 weeks: None Have you lived/traveled outside US in past 30 days?: No Contact w/someone who lives/traveled outside US past 30 days?: No Exposure to someone with infectious disease in past 14 days?: No Do you have a fever (greater than 100.4 F or 38 C)?: No Have you tested positive for COVID-19: No Exposed to someone with COVID-19 in past 14 days?: No Do you have a sore throat?: No Do you have a cough?: No Do you have any weakness?: No Do you have any diarrhea?: No Are you experiencing any unusual bleeding?: No Do you have any muscle aches/pain?: No Do you have any abdominal pain?: No Are you experiencing loss of taste or smell?: No Meds Home Medications and Allergies Home Medications ?Medication ?Instructions ?Recorded ?Confirmed ?Type metoprolol succinate 50 mg 50 mg PO DAILY 06/16/24 06/16/24 History tablet,extended release 24 hr torsemide 20 mg tablet 20 mg PO DAILY 06/16/24 06/16/24 History valsartan 40 mg tablet 40 mg PO DAILY 06/16/24 06/16/24 History New Prescriptions to Start Prescriptions: Allergies Allergy/AdvReac Type Severity Reaction Status Date / Time hydromorphone (From Dilaudid) AdvReac Vomiting Verified 06/16/24 12:57 morphine AdvReac Vomiting Verified 06/16/24 12:57 Exam (Inpt) Vital signs and Labs for Last 24 Hours: Temp Pulse Resp BP Pulse Ox O2 Del Method O2 Flow Rate 100.2 F H 115 H 17 128/71 98 Nasal Cannula 4 06/17/24 05:33 06/17/24 07:06 06/17/24 05:01 06/17/24 05:01 06/17/24 07:06 06/17/24 07:06 06/17/24 07:06 Laboratory Results - last 24 hr 06/16/24 12:55: Sodium 133 L, Potassium 4.3, Chloride 96 L, Carbon Dioxide 32 H, Anion Gap 9.3, BUN 30 H, Creatinine 0.90, Estimated Creat Clear 92, Estimated GFR 86, Est GFR ( Amer) 103, Glucose 330 H, Calcium 9.0, Magnesium 2.0, Total Bilirubin 0.4, AST 28, ALT 27, Alkaline Phosphatase 183 H, Troponin I < 0.01, NT-Pro-B Natriuret Pep 3540 H, Total Protein 6.9, Albumin 3.7, Globulin 3.2, Albumin/Globulin Ratio 1.2, Procalcitonin 0.301 06/16/24 12:57: WBC 10.9 H, RBC 4.21 L, Hgb 10.3 L, Hct 33.5 L, MCV 79.6 L, MCH 24.5 L, MCHC 30.7 L, RDW 17.9 H, Plt Count 303, MPV 9.8, Neut % (Auto) 84.4 H, L ymph % (Auto) 9.4 L, [place] % (Auto) 5.0, Eos % (Auto) 0.6, Baso % (Auto) 0.1, N eut # (Auto) 9.2 H, Lymph # (Auto) 1.0, [place] # (Auto) 0.5, Eos # (Auto) 0.1, Baso # (Auto) 0.0, ESR 55 H, PT 11.4, INR 1.02, Hemoglobin A1c 9.9 H, HCV Ab HAROLDO w/Rflx PCR Qn Negative, HIV Ag/Ab Combo Qual Negative 06/16/24 13:03: VBG pH 7.34, VBG pCO2 54.8 H, VBG pO2 34.2, VBG HCO3 29.0, VBG Total CO2 30.7 H, VBG O2 Saturation 62.1, VBG Base Excess 3.3 H, VBG Lactic Acid 1.2 06/16/24 13:05: Chlamy pneumoniae PCR Not detected, Adenovirus (PCR) Not detected, B. pertussis DNA (PCR) Not detected, Coronavirus OC43 (PCR) Not detected, Coronavirus HKU1 (PCR) Not detected, Coronavirus 229E (PCR) Not detected, SARS-CoV-2 (PCR) Not detected, Coronavirus NL63 (PCR) Not detected, Human Metapneumovir PCR Not detected, Influenza A (H1) PCR Not detected, Influ A (H1N1/09) PCR Not detected, Influenza A (H3) PCR Not detected, Influenza Type A (PCR) Not detected, Influenza Type B (PCR) Not detected, M. pneumoniae (PCR) Not detected, Parainfluenza 1 (PCR) Not detected, Parainfluenza 2 (PCR) Not detected, Parainfluenza 3 (PCR) Not detected, Parainfluenza 4 (PCR) Not detected, RSV (PCR) Not detected, Entero/Rhino (PCR) Not detected 06/16/24 17:46: Troponin I 0.01, C-Reactive Protein 313.6 H, TSH 1.16 06/16/24 20:36: POC Glucose 331 H* 06/16/24 20:47: Troponin I < 0.01 06/16/24 23:15: Sodium 134 L, Potassium 3.9, Chloride 97 L, Carbon Dioxide 31 H, Anion Gap 9.9, BUN 27 H, Creatinine 0.90, Estimated Creat Clear 92, Estimated GFR 86, Est GFR ( Amer) 103, Glucose 222 H D, Calcium 8.9 06/17/24 05:20: Urine Color Yellow, Urine Appearance Clear, Urine pH 5.5, Ur Specific [place] 1.020, Urine Protein Negative, Urine Glucose (UA) Negative, Urine Ketones Negative, Urine Blood Negative, Urine Nitrate Negative, Urine Bilirubin Negative, Urine Urobilinogen 0.2, Ur Leukocyte Esterase Negative, Urine RBC Occasional, Urine WBC Occasional, Ur Squamous Epith Cells 3-5 06/17/24 05:42: WBC 12.1 H, RBC 4.07 L, Hgb 9.7 L, Hct 31.8 L, MCV 78.1 L, MCH 23.8 L, MCHC 30.5 L, RDW 17.7 H, Plt Count 321, MPV 9.7, Neut % (Auto) 80.8 H, Lymph % (Auto) 10.0, [place] % (Auto) 6.8, Eos % (Auto) 1.2, Baso % (Auto) 0.2, N eut # (Auto) 9.8 H, Lymph # (Auto) 1.2, [place] # (Auto) 0.8, Eos # (Auto) 0.2, Baso # (Auto) 0.0, ESR 102 H, Sodium 134 L, Potassium 3.7, Chloride 99, Carbon Dioxide 30, Anion Gap 8.7, BUN 22 H, Creatinine 0.90, Estimated Creat Clear 92, Estimated GFR 86, Est GFR ( Amer) 103, Glucose 209 H, Calcium 8.4, M agnesium 1.6 D, Total Bilirubin 0.4, AST 33, ALT 31, Alkaline Phosphatase 172 H , C-Reactive Protein 246.9 H, Total Protein 6.5, Albumin 3.4 L, Globulin 3.1, Albumin/Globulin Ratio 1.1, Triglycerides 182 H, Cholesterol 150, LDL Cholesterol Direct 65.94 L, VLDL Cholesterol 36, HDL Cholesterol 35 L, C holesterol/HDL Ratio 4.3 H 06/17/24 06:00: POC Glucose 229 H I & O for Labs for Last 24 Hours: Intake & Output 06/14/24 06/15/24 06/16/24 06/17/24 11:59 11:59 11:59 11:59 Intake Total 74.666 / 74.666 Output Total 2099 / 2099 Balance -334 / - Weight 450 lb Microbiology Reports for the Last 24 Hours: Microbiology 06/16/24 12:57 Blood Blood Culture - Preliminary 06/16/24 14:35 Buttock Gram Stain - Final Constitutional: morbidly obese Respiratory: Absent respiratory distress Comment:: Multifocal areas of maceration and superficial soft tissue thickening along sacral region, buttock, and malina-scrotal region. No eschar or superficial necrosis. Patchy dark discoloration possibly secondary to hemosiderin deposition/superficial soft tissue damage versus deeper necrosis. Results Labs 06/17/24 05:42 06/17/24 05:42 Labs: Laboratory Results - last 24 hr 06/16/24 12:55: Sodium 133 L, Potassium 4.3, Chloride 96 L, Carbon Dioxide 32 H, Anion Gap 9.3, BUN 30 H, Creatinine 0.90, Estimated Creat Clear 92, Estimated GFR 86, Est GFR ( Amer) 103, Glucose 330 H, Calcium 9.0, Magnesium 2.0, Total Bilirubin 0.4, AST 28, ALT 27, Alkaline Phosphatase 183 H, Troponin I < 0.01, NT-Pro-B Natriuret Pep 3540 H, Total Protein 6.9, Albumin 3.7, Globulin 3.2, Albumin/Globulin Ratio 1.2, Procalcitonin 0.301 06/16/24 12:57: WBC 10.9 H, RBC 4.21 L, Hgb 10.3 L, Hct 33.5 L, MCV 79.6 L, MCH 24.5 L, MCHC 30.7 L, RDW 17.9 H, Plt Count 303, MPV 9.8, Neut % (Auto) 84.4 H, L ymph % (Auto) 9.4 L, [place] % (Auto) 5.0, Eos % (Auto) 0.6, Baso % (Auto) 0.1, N eut # (Auto) 9.2 H, Lymph # (Auto) 1.0, [place] # (Auto) 0.5, Eos # (Auto) 0.1, Baso # (Auto) 0.0, ESR 55 H, PT 11.4, INR 1.02, Hemoglobin A1c 9.9 H, HCV Ab HAROLDO w/Rflx PCR Qn Negative, HIV Ag/Ab Combo Qual Negative 06/16/24 13:03: VBG pH 7.34, VBG pCO2 54.8 H, VBG pO2 34.2, VBG HCO3 29.0, VBG Total CO2 30.7 H, VBG O2 Saturation 62.1, VBG Base Excess 3.3 H, VBG Lactic Acid 1.2 06/16/24 13:05: Chlamy pneumoniae PCR Not detected, Adenovirus (PCR) Not detected, B. pertussis DNA (PCR) Not detected, Coronavirus OC43 (PCR) Not detected, Coronavirus HKU1 (PCR) Not detected, Coronavirus 229E (PCR) Not detected, SARS-CoV-2 (PCR) Not detected, Coronavirus NL63 (PCR) Not detected, Human Metapneumovir PCR Not detected, Influenza A (H1) PCR Not detected, Influ A (H1N1/09) PCR Not detected, Influenza A (H3) PCR Not detected, Influenza Type A (PCR) Not detected, Influenza Type B (PCR) Not detected, M. pneumoniae (PCR) Not detected, Parainfluenza 1 (PCR) Not detected, Parainfluenza 2 (PCR) Not detected, Parainfluenza 3 (PCR) Not detected, Parainfluenza 4 (PCR) Not detected, RSV (PCR) Not detected, Entero/Rhino (PCR) Not detected 06/16/24 17:46: Troponin I 0.01, C-Reactive Protein 313.6 H, TSH 1.16 06/16/24 20:36: POC Glucose 331 H* 06/16/24 20:47: Troponin I < 0.01 06/16/24 23:15: Sodium 134 L, Potassium 3.9, Chloride 97 L, Carbon Dioxide 31 H, Anion Gap 9.9, BUN 27 H, Creatinine 0.90, Estimated Creat Clear 92, Estimated GFR 86, Est GFR ( Amer) 103, Glucose 222 H D, Calcium 8.9 06/17/24 05:20: Urine Color Yellow, Urine Appearance Clear, Urine pH 5.5, Ur Specific [place] 1.020, Urine Protein Negative, Urine Glucose (UA) Negative, Urine Ketones Negative, Urine Blood Negative, Urine Nitrate Negative, Urine Bilirubin Negative, Urine Urobilinogen 0.2, Ur Leukocyte Esterase Negative, Urine RBC Occasional, Urine WBC Occasional, Ur Squamous Epith Cells 3-5 06/17/24 05:42: WBC 12.1 H, RBC 4.07 L, Hgb 9.7 L, Hct 31.8 L, MCV 78.1 L, MCH 23.8 L, MCHC 30.5 L, RDW 17.7 H, Plt Count 321, MPV 9.7, Neut % (Auto) 80.8 H, Lymph % (Auto) 10.0, [place] % (Auto) 6.8, Eos % (Auto) 1.2, Baso % (Auto) 0.2, N eut # (Auto) 9.8 H, Lymph # (Auto) 1.2, [place] # (Auto) 0.8, Eos # (Auto) 0.2, Baso # (Auto) 0.0, ESR 102 H, Sodium 134 L, Potassium 3.7, Chloride 99, Carbon Dioxide 30, Anion Gap 8.7, BUN 22 H, Creatinine 0.90, Estimated Creat Clear 92, Estimated GFR 86, Est GFR ( Amer) 103, Glucose 209 H, Calcium 8.4, M agnesium 1.6 D, Total Bilirubin 0.4, AST 33, ALT 31, Alkaline Phosphatase 172 H , C-Reactive Protein 246.9 H, Total Protein 6.5, Albumin 3.4 L, Globulin 3.1, Albumin/Globulin Ratio 1.1, Triglycerides 182 H, Cholesterol 150, LDL Cholesterol Direct 65.94 L, VLDL Cholesterol 36, HDL Cholesterol 35 L, C holesterol/HDL Ratio 4.3 H 06/17/24 06:00: POC Glucose 229 H Assessment and Plan *Assessment and plan (1) Sacral wound: Status: Acute Qualifiers: Encounter type: initial encounter Qualified Code(s): S31.000A - Unspecified open wound of lower back and pelvis without penetration into retroperitoneum, initial encounter Category: Medical Code(s): S31.000A - Unspecified open wound of lower back and pelvis without penetration into retroperitoneum, initial encounter Plan: No significant superficial breakdown or necrosis. No overlying spreading cellulitis. Secondary fungal overgrowth noted. Deeper soft tissue injury and possible necrosis cannot be ruled out with certainty; however, hemosiderin deposition and superficial tissue injury more likely. Initially proceed with dry dressing changes Keep area as clean and dry as possible Pressure relief to the degree possible Continue serial exams If the patient develops evidence of complex deeper soft tissue necrosis or need for urgent surgical intervention, immediate transfer to tertiary center warranted. (2) Acute exacerbation of CHF (congestive heart failure): Status: Acute Qualifiers: Heart failure type: unspecified Qualified Code(s): I50.9 - Heart failure, unspecified Category: Medical Code(s): I50.9 - Heart failure, unspecified (3) Morbid obesity with BMI of 50.0-59.9, adult: Status: Acute Category: Medical Code(s): E66.01 - Morbid (severe) obesity due to excess calories; Z68.43 - Body mass index [BMI] 50.0-59.9, adult (4) Acute on chronic heart failure with preserved ejection fraction (HFpEF): Status: Acute Category: Medical Code(s): I50.33 - Acute on chronic diastolic (congestive) heart failure (5) Volume overload: Status: Acute Qualifiers: Hypervolemia type: unspecified Qualified Code(s): E87.70 - Fluid overload, unspecified Category: Medical Code(s): E87.70 - Fluid overload, unspecified (6) LORI (obstructive sleep apnea): Status: Acute Category: Medical Code(s): G47.33 - Obstructive sleep apnea (adult) (pediatric)
[2024-06-17] MEDS: MUPIROCIN 2% OINTMENT 22GM TUBE TP ×3 (08:20→21:26)
[2024-06-17] MEDS: METHOCARBAMOL 500MG TABLET 500 MG PO ×3 (08:20→21:01)
[2024-06-17] MEDS: GABAPENTIN 300MG CAPSULE 300 MG PO ×2 (08:20→13:20)
[2024-06-17] MEDS: METOPROLOL SUCCINATE XL 100MG TABLET 100 MG PO (08:21)
--- NOTE | 2024-06-17 08:45 | P.PN_ITS ---
Subjective *Date: 06/17/24 *Time: 14:27 Interval history: Patient initiated on 2 L oxygen overnight while sleeping. Has had at least -2 L volume status since starting Bumex drip. Still complaining of leg pain. Did not want bariatric bed last night but complaining of bed being too small this morning. Blood cultures returned positive overnight for group B strep. Became tachycardic necessitating initiation of Cardizem drip. Moved to ICU. No nausea or vomiting. Alert and oriented x 4. Medical Exam Vital signs and Labs for Last 24 Hours: Vital Signs Temp Pulse Pulse Resp BP BP Pulse Ox 06/17/24 08:01 99.6 F 98 H 20 136/63 95 06/17/24 07:08 124 H 22 136/74 91 L 06/17/24 07:06 115 H 06/17/24 07:06 118 H 06/17/24 07:06 98 06/17/24 06:19 06/17/24 05:33 100.2 F H 06/17/24 05:24 06/17/24 05:01 76 17 97 06/17/24 05:01 128/71 06/17/24 05:00 06/17/24 04:02 98 06/17/24 04:00 100 F H 145 H 19 125/64 98 06/17/24 03:50 100.0 F H 06/17/24 02:35 121 H 06/17/24 02:35 121 H 06/17/24 02:05 06/17/24 01:00 06/17/24 00:00 99.8 F H 128 H 18 117/74 92 L 06/17/24 00:00 130 H 06/16/24 23:55 06/16/24 23:00 06/16/24 21:00 06/16/24 20:45 119 H 06/16/24 20:45 118 H 06/16/24 20:00 06/16/24 20:00 130 H 06/16/24 20:00 100.1 F H 126 H 18 130/60 99 06/16/24 19:00 06/16/24 17:20 98.7 F 71 22 125/65 06/16/24 17:00 06/16/24 16:19 06/16/24 14:00 90 14 125/65 97 06/16/24 13:30 105 H 129/64 98 06/16/24 13:00 94 H 12 124/66 97 06/16/24 12:49 98.7 F 102 H 24 111/63 97 O2 Del Method O2 Flow Rate 06/17/24 08:01 Nasal Cannula 1 06/17/24 07:08 Nasal Cannula 1 06/17/24 07:06 06/17/24 07:06 06/17/24 07:06 Nasal Cannula 4 06/17/24 06:19 Nasal Cannula 1 06/17/24 05:33 06/17/24 05:24 Nasal Cannula 1 06/17/24 05:01 Nasal Cannula 1 06/17/24 05:01 06/17/24 05:00 Nasal Cannula 1 06/17/24 04:02 Nasal Cannula 1 06/17/24 04:00 Nasal Cannula 1 06/17/24 03:50 06/17/24 02:35 06/17/24 02:35 06/17/24 02:05 Nasal Cannula 4 06/17/24 01:00 Nasal Cannula 4 06/17/24 00:00 Nasal Cannula 4 06/17/24 00:00 06/16/24 23:55 Nasal Cannula 2 06/16/24 23:00 Nasal Cannula 4 06/16/24 21:00 Nasal Cannula 4 06/16/24 20:45 06/16/24 20:45 06/16/24 20:00 Nasal Cannula 4 06/16/24 20:00 06/16/24 20:00 Nasal Cannula 2 06/16/24 19:00 Room Air 06/16/24 17:20 Room Air 06/16/24 17:00 Room Air 06/16/24 16:19 Room Air 06/16/24 14:00 Room Air 06/16/24 13:30 Room Air 06/16/24 13:00 Room Air 06/16/24 12:49 Room Air Intake and Output 06/16/24 06/17/24 06/17/24 23:59 07:59 15:59 Intake Total 60 / 60 14.6 14.666 Output Total 400 / 400 1700 / 1700 Balance -340 / -340 -1685.334 / -1685.334 Intake: Intake, Oral Amount 60 / 60 Intake, Total IV Amount 14. Output: Output, Urine Amount 400 / 400 1700 / 1700 Other: Number of Unmeasured Voids 1 0 Weight 204.117 kg 204.117 kg Patient Weight 06/17/24 23:59 Weight 204.117 kg Laboratory Results - last 24 hr 06/16/24 12:55: Sodium 133 L, Potassium 4.3, Chloride 96 L, Carbon Dioxide 32 H, Anion Gap 9.3, BUN 30 H, Creatinine 0.90, Estimated Creat Clear 92, Estimated GFR 86, Est GFR ( Amer) 103, Glucose 330 H, Calcium 9.0, Magnesium 2.0, Total Bilirubin 0.4, AST 28, ALT 27, Alkaline Phosphatase 183 H, Troponin I < 0.01, NT-Pro-B Natriuret Pep 3540 H, Total Protein 6.9, Albumin 3.7, Globulin 3.2, Albumin/Globulin Ratio 1.2, Procalcitonin 0.301 06/16/24 12:57: WBC 10.9 H, RBC 4.21 L, Hgb 10.3 L, Hct 33.5 L, MCV 79.6 L, MCH 24.5 L, MCHC 30.7 L, RDW 17.9 H, Plt Count 303, MPV 9.8, Neut % (Auto) 84.4 H, Lymph % (Auto) 9.4 L, [place] % (Auto) 5.0, Eos % (Auto) 0.6, Baso % (Auto) 0.1, Neut # (Auto) 9.2 H, Lymph # (Auto) 1.0, [place] # (Auto) 0.5, Eos # (Auto) 0.1, Baso # (Auto) 0.0, ESR 55 H, PT 11.4, INR 1.02, Hemoglobin A1c 9.9 H, HCV Ab HAROLDO w/Rflx PCR Qn Negative, HIV Ag/Ab Combo Qual Negative 06/16/24 13:03: VBG pH 7.34, VBG pCO2 54.8 H, VBG pO2 34.2, VBG HCO3 29.0, VBG Total CO2 30.7 H, VBG O2 Saturation 62.1, VBG Base Excess 3.3 H, VBG Lactic Acid 1.2 06/16/24 13:05: Chlamy pneumoniae PCR Not detected, Adenovirus (PCR) Not detected, B. pertussis DNA (PCR) Not detected, Coronavirus OC43 (PCR) Not detected, Coronavirus HKU1 (PCR) Not detected, Coronavirus 229E (PCR) Not detect ed, SARS-CoV-2 (PCR) Not detected, Coronavirus NL63 (PCR) Not detected, Human Metapneumovir PCR Not detected, Influenza A (H1) PCR Not detected, Influ A (H1N1/09) PCR Not detected, Influenza A (H3) PCR Not detected, Influenza Type A (PCR) Not detected, Influenza Type B (PCR) Not detected, M. pneumoniae (PCR) Not detected, Parainfluenza 1 (PCR) Not detected, Parainfluenza 2 (PCR) Not detected, Parainfluenza 3 (PCR) Not detected, Parainfluenza 4 (PCR) Not detected, RSV (PCR) Not detected, Entero/Rhino (PCR) Not detected 06/16/24 17:46: Troponin I 0.01, C-Reactive Protein 313.6 H, TSH 1.16 06/16/24 20:36: POC Glucose 331 H* 06/16/24 20:47: Troponin I < 0.01 06/16/24 23:15: Sodium 134 L, Potassium 3.9, Chloride 97 L, Carbon Dioxide 31 H, Anion Gap 9.9, BUN 27 H, Creatinine 0.90, Estimated Creat Clear 92, Estimated GFR 86, Est GFR ( Amer) 103, Glucose 222 H D, Calcium 8.9 06/17/24 05:20: Urine Color Yellow, Urine Appearance Clear, Urine pH 5.5, Ur Specific [place] 1.020, Urine Protein Negative, Urine Glucose (UA) Negative, Urine Ketones Negative, Urine Blood Negative, Urine Nitrate Negative, Urine Bilirubin Negative, Urine Urobilinogen 0.2, Ur Leukocyte Esterase Negative, Urine RBC Occasional, Urine WBC Occasional, Ur Squamous Epith Cells 3-5 06/17/24 05:42: WBC 12.1 H, RBC 4.07 L, Hgb 9.7 L, Hct 31.8 L, MCV 78.1 L, MCH 23.8 L, MCHC 30.5 L, RDW 17.7 H, Plt Count 321, MPV 9.7, Neut % (Auto) 80.8 H, Lymph % (Auto) 10.0, [place] % (Auto) 6.8, Eos % (Auto) 1.2, Baso % (Auto) 0.2, Neut # (Auto) 9.8 H, Lymph # (Auto) 1.2, [place] # (Auto) 0.8, Eos # (Auto) 0.2, Baso # (Auto) 0.0, ESR 102 H, Sodium 134 L, Potassium 3.7, Chloride 99, Carbon Dioxide 30, Anion Gap 8.7, BUN 22 H, Creatinine 0.90, Estimated Creat Clear 92, Estimated GFR 86, Est GFR ( Amer) 103, Glucose 209 H, Calcium 8.4, Magnesium 1.6 D, Total Bilirubin 0.4, AST 33, ALT 31, Alkaline Phosphatase 172 H, C-Reactive Protein 246.9 H, Total Protein 6.5, Albumin 3.4 L, Globulin 3.1, Albumin/Globulin Ratio 1.1, Triglycerides 182 H, Cholesterol 150, LDL Cholesterol Direct 65.94 L, VLDL Cholesterol 36, HDL Cholesterol 35 L, Cholesterol/HDL Ratio 4.3 H 06/17/24 06:00: POC Glucose 229 H I & O for Labs for Last 24 Hours: Intake & Output 06/14/24 06/15/24 06/16/24 06/17/24 23:59 23:59 23:59 23:59 Intake Total 60 / 60 14.666 / 14.666 Output Total 400 / 400 1700 / 1700 Balance -340 / -340 -1685.334 / -1685.334 Weight 204.117 kg 204.117 kg Microbiology Reports for the Last 24 Hours: Microbiology 06/16/24 14:35 Buttock Gram Stain - Final 06/16/24 14:35 Buttock Wound Culture - Preliminary Gram Negative Rods 06/16/24 12:57 Blood Blood Culture - Preliminary Constitutional: Present mild distress, morbidly obese and chronically ill appearing Comment:: Demanding Head: Present atraumatic and normocephalic ENT: Present normal exam Respiratory: Present accessory muscle use and distant breath sounds; Absent respiratory distress, stridor, wheezes or crackles Cardiac: Present Tachycardia Comment:: Irregularly irregular, tachycardic GI: Present soft, distention and normal bowel sounds; Absent tenderness Rectal (male): Present normal inspection Comments:: In the perianal region however patient has breakdown of skin through the epidermis in multiple spots. No appreciable fluctuance or draining lesions. Area significantly moist. Comment:: Unable to find penis due to prominent suprapubic fat pad. Severely retracted. Extremities: Present full ROM, tenderness and edema (4+ to lower abdomen) Comment:: Erythema bilateral legs, worse in left leg up to thigh, marginally improved after starting antibiotic, retracted from leading edge marking Skin: Present erythema and wounds Comment:: Wounds in perineal region as mentioned above. Draining ulcerations on backs of bilateral lower legs. Numerous scabbed lesions on torso and arms Neuro: Present Grossly Intact, alert, awake, oriented x 3 and moves all extremities Assessment and Plan *Assessment and plan (1) Acute on chronic heart failure with preserved ejection fraction (HFpEF): Status: Acute Category: Medical Code(s): I50.33 - Acute on chronic diastolic (congestive) heart failure (2) Bacteremia due to group B Streptococcus: Status: Acute Category: Medical Code(s): R78.81 - Bacteremia; B95.1 - Streptococcus, group B, as the cause of diseases classified elsewhere (3) Morbid obesity with BMI of 50.0-59.9, adult: Status: Acute Category: Medical Code(s): E66.01 - Morbid (severe) obesity due to excess calories; Z68.43 - Body mass index [BMI] 50.0-59.9, adult (4) Volume overload: Status: Acute Qualifiers: Hypervolemia type: unspecified Qualified Code(s): E87.70 - Fluid overload, unspecified Category: Medical Code(s): E87.70 - Fluid overload, unspecified (5) Venous stasis ulcer of both lower extremities without varicose veins: Status: Acute Category: Medical Code(s): I87.2 - Venous insufficiency (chronic) (peripheral); L97.919 - Non-pressure chronic ulcer of unspecified part of right lower leg with unspecified severity; L97.929 - Non-pressure chronic ulcer of unspecified part of left lower leg with unspecified severity (6) Cellulitis of left lower extremity: Status: Acute Category: Medical Code(s): L03.116 - Cellulitis of left lower limb (7) Microcytic anemia: Status: Acute Category: Medical Code(s): D50.9 - Iron deficiency anemia, unspecified (8) Adult failure to thrive: Status: Acute Category: Medical Code(s): R62.7 - Adult failure to thrive (9) LORI (obstructive sleep apnea): Status: Acute Category: Medical Code(s): G47.33 - Obstructive sleep apnea (adult) (pediatric) (10) Diabetes mellitus: Status: Acute Category: Medical Code(s): E11.9 - Type 2 diabetes mellitus without complications (11) Sacral wound: Status: Acute Qualifiers: Encounter type: initial encounter Qualified Code(s): S31.000A - Unspecified open wound of lower back and pelvis without penetration into retroperitoneum, initial encounter Category: Medical Code(s): S31.000A - Unspecified open wound of lower back and pelvis without penetration into retroperitoneum, initial encounter Plan 63-year-old male with morbid obesity, acute on chronic HFpEF, volume overload, cellulitis. Discussed case with ER physician, after much discussion and evaluation of patient, decision made to admit for acute on chronic conditions, IV antibiotics, aggressive diuresis, and evaluation by therapy for possible placement. Patient's blood cultures came back positive overnight. Escalated to ICU due to A-fib with RVR. Continues to require diltiazem drip. Surgery consu lted to evaluate wounds in scrotal region today. Patient's prognosis guarded. Problems addressed as follows: Acute on Chronic HFpEF A-fib with RVR Hypertension -Cardiology consulted, appreciate their recommendations. Discussed case today. Continue Bumex. Patient increased to 1 mg/h. Monitoring of output as best as possible as we are unable to place a Chiu. Negative at least 2 L as best we can tell. -Continue valsartan per home regimen -Add spironolactone 25 mg daily -Initiate oral diltiazem 360 mg daily and stop diltiazem drip. Continue metoprolol succinate 100 mg daily -Transition to oral Eliquis 5 mg twice daily. -Continue aspirin 81 mg daily for PAD. -Echo obtained, formal read still pending. Preliminary appears to show preserved EF with diastolic dysfunction Diabetes: - A1c 9.9. Initiate sliding scale insulin with fingersticks ACHS. -Morning glucose 209, increase Lantus to 40 units tonight. - diabetic diet of 1800 jone. -Cardiology recommends considering initiation of Jardiance for diabetes and heart failure as above; in light of patient's breakdown of skin in his groin however, concerned that SGLT2 would drastically increase his risk for Marilin's and will hold on initiating at this time. cellulitis Group B strep bacteremia -White count increased at 12.1. CRP 247, ESR increased from 55-1 02. 1 bottle showing GBS and blood cultures. Repeat blood cultures pending -Repeat CBC, CMP, ESR and CRP ordered for the morning -Wound care assisting with ulcerations on legs. Erythema somewhat better in left lower leg -Continue cefepime 2 g every 8 hours. Due to the volume of IV fluids with vancomycin exceeding 1500 cc a day, will transition to Zyvox 600 mg twice daily given patient's severe volume overload and need for aggressive diuresis. - Mupirocin for excoriations on torso -If wounds on foot worsen, will consider podiatry consult next week when she is back in the hospital. -Discussed case with surgery today for wounds and scrotal region. Nothing n eeding debridement at this time. Recommend dry dressings to help keep region dry. Appear to be skin breakdown from moisture and limited mobility. Rotate patient every 2 hours. Will discuss with patient about getting an Bariatric bed as he was not amenable to this last night Kidney function appears normal at this time with BUN of 22, creatinine 0.9. Monitor for LUPE. Microcytic anemia: Hemoglobin 9.7 today, iron studies show low levels. Will administer Venofer 200 mg IV once today; no active signs of bleeding. Transfusion threshold hemoglobin less than 7 LORI: Consider oxygen at night versus CPAP after discussion with patient about his home regimen. Morbid obesity complicates all aspects of his care. PT and OT consulted along with social work to assist with dispo planning in next site of care; PT evaluated and states patient is independently mobile. Safe to discharge home when medically stable. Full code eliquis 5mg BID Diabetic diet
--- NOTE | 2024-06-17 08:51 | PC.NURSE ---
Pete, PT/Wound care at bedside.
[2024-06-17 08:53] LABS: Iron 17 ug/dL (49-181)
[2024-06-17 09:03] LABS: Total Iron Binding Capacity 280 ug/dL (261-462)
[2024-06-17] MEDS: BUMETANIDE 1MG/4ML VIAL 2 MG IV (09:10)
[2024-06-17 09:29] LABS: Ferritin 128 ng/ml (17.9-464)
[2024-06-17] MEDS: BUMETANIDE 10 MG in 0.9 % SODIUM CHLORIDE 60 ML IV ×2 (09:36→20:59)
[2024-06-17] MEDS: dilTIAZem HCL 100 MG in 0.9 % SODIUM CHLORIDE 100 ML 15 MG IV (09:36)
[2024-06-17] MEDS: IRON SUCROSE COMPLEX 200 MG in 0.9 % SODIUM CHLORIDE 100 ML 220 MG IV (09:36)
--- NOTE | 2024-06-17 10:44 | HMH.PTEV ---
Physical Therapy Evaluation Rehab PT IP Evaluation Start: 06/16/24 22:30 Freq: ONCE Status: Active Protocol: Document 06/17/24 09:58 NANCY (Rec: 06/17/24 10:44 NANCY [id number]) Subjective/History History History 63-year-old male who was recently moved to the area to live with his sister due to poor health and declining status living with family in [place]. He has a history of morbid obesity, CHF, diabetes, LORI. Had developed significant debility and numerous pressure wounds. Per review of notes from [facility] and ER documentation, the patient had recently spent 6 weeks hospitalized at [facility] for heart failure, infected decubitus wounds, osteomyelitis of his foot status post amputation, and significant debility. He discharged to rehab for several weeks and then got readmitted to [facility] for 3 more weeks due to recurrent heart failure and volume overload. Was not a candidate for rehab placement after that admission and discharged home where he has been for approximately 3 weeks. Has not had follow-up as an outpatient with PCP or specialists as of yet. Taking some but not all of the medications prescribed at last visit. Has not been on blood thinners due to cost and insurance issues. Received stents in his lower extremities due to peripheral artery disease during one of his previous hospitalizations. Diabetes has been poorly controlled as he has not had a glucometer. He reports he lives with many family members , ramp to enter the home, he is generally independent with all mobility and has walker, manual w/c, power w/c, BSC at home already. Subjective Subjective He reports pain is 8/10 in B LE at this time, but he does agree to mobility assessment. [facility] How much help from another person do you currently need... Turning from your back to your side A little while in a flat bed without using bedrails? Moving from lying on back to sitting on A little the side of a flat bed without using bedrails? Moving to and from a bed to a chair ( A little including a wheelchair)? Standing up from a chair using your arms A little ? (e.g., wheelchair, bedside chair) Walking in hospital room? A little Climbing 3-5 steps with a railing? A lot Mobility Score 17 Mobility Level [facility] Mobility Calculator Mobility 5 Stand (1 or more minutes) Rehab PT IP Eval Objective Appearance Patient Behavior Appropriate Patient Orientation Person,Place,Time Difficulty following instructions none Speech Pattern Clear Ambulation Patient Able to Ambulate No Balance Ability to Arise Able, uses arms to help Sitting Balance Steady, safe Standing Balance Steady, wide stance Dynamic Sitting Balance Ability Good Dynamic Standing Balance Ability Poor Transfers Bed Transfer Ability Minimal x 1 (25% assist) Chair Transfer Ability Minimal x 1 (25% assist) Sit to Stand Bed Transfer Ability Minimal x 1 (25% assist) Sit to Stand Chair Transfer Ability Minimal x 1 (25% assist) Rehab PT IP prob,goals,plan Problems Date of Evaluation: 06/17/24 PT IP Problems Bed Mobility,Transfers,Gait Rehab Potential Rehab Potential Good Plan PT Intervention Plan Bed Mobility,Transfers,Gait, Therapeutic Exercise PT Plan Frequency Daily Duration LOS Discharge Goals Bed Transfer Ability Contact Guard/Hand Hold Sit to Stand Chair Transfer Ability Contact Guard/Hand Hold Ambulation Assistive Device Standard Walker Ambulation Distance (feet) 5 Discharge Plan PT Discharge Plan Pt is currently appropriate to return home once medically stable with currently available equipment and assistance per his report. Skilled inpatient acute therapy is indicated to aid pt return to [facility]. Eval Complexity Eval Charge Codes 71037 - High Complexity PHYSICIAN CERTIFICATION: I certify the specified therapy services for Bebeto Christiansen are required, authorized, and reviewed every 30 days.
--- NOTE | 2024-06-17 10:56 | HMH.PTWOUND ---
Rehab Inpt Wound Evaluation Rehab IP Wound Evaluation Start: 06/16/24 16:07 Freq: ONCE Status: Active Protocol: Document 06/17/24 10:50 NANCY (Rec: 06/17/24 10:56 NANCY [id number]) Rehab PT Wound Assessment Subjective Subjective 63-year-old male who was recently moved to the area to live with his sister due to poor health and declining status living with family in [place]. He has a history of morbid obesity, CHF, diabetes, LORI. Had developed significant debility and numerous pressure wounds. Per review of notes from [facility] and ER documentation, the patient had recently spent 6 weeks hospitalized at [facility] for heart failure, infected decubitus wounds, osteomyelitis of his foot status post amputation, and significant debility. He discharged to rehab for several weeks and then got readmitted to [facility] for 3 more weeks due to recurrent heart failure and volume overload. Was not a candidate for rehab placement after that admission and discharged home where he has been for approximately 3 weeks. Has not had follow-up as an outpatient with PCP or specialists as of yet. Taking some but not all of the medications prescribed at last visit. Has not been on blood thinners due to cost and insurance issues. Received stents in his lower extremities due to peripheral artery disease during one of his previous hospitalizations. Diabetes has been poorly controlled as he has not had a glucometer. Pt presents upon admission with multiple wounds on B lower legs and buttocks. Wound Buttock Wound Type Pressure Ulcer Is This a Chronic Wound Yes Wound Staging Stage II Query Text:Stage I - Unbroken, red skin, no blanching. Stage II - Skin broken, superficial skin loss involving epidermis alone or also dermis. Partial loss of skin layers. Stage III - Pressure area involves epidermis, dermis and subcutaneous tissue, full thickness skin loss. Stage IV - Pressure area involves epidermis, subcutaneous tissue, bone and other supportive tissue. Full thickness skin loss with extensive destruction of underlying tissue and structures. Wound Length (cm) 2.0 Wound Width (cm) 2.0 Wound Depth (cm) 0.1 Wound Bed Appearance [place] Wound Margins Description Well Defined Surrounding Tissue Appearance [place] Wound Drainage Description Serous Drainage Amount Scant Right Anterior Ankle Wound Type Stasis Ulcer Is This a Chronic Wound Yes Wound Length (cm) 2.0 Wound Width (cm) 4.0 Wound Depth (cm) 0.1 Wound Bed Appearance [place] Wound Margins Description Well Defined Surrounding Tissue Appearance Bright Red Edema Type Pitting Edema Degree 2+ Query Text:1+ Trace, Barely Detectable, Rebound 15-30 seconds 2+ Moderate, Slight Indentation, Rebound 10-20 seconds 3+ Deep, Deeper Indentation, Rebound > 30 seconds 4+ Very Deep, Rebound > 60 seconds Edema Appearance Puffy Drainage Amount None Dressing Change Patient Tolerance Tolerated Well Plan/Recommendation Comment AT this time pt has multiple wounds that appear to be pressure injury of the buttock associated with MASD. LE wounds appears to be stais ulcers related to fluid overload and CHF exac. General surgery evaluated the patient and I agree with their recommendations. Petroleum based barrier cream may also be helpful in treatment performed by [facility] staff at this time. No current needs for wound debridement at this time . Continue appropriate pressure relief as able per protocols. Eval Complexity Eval Charge Codes 40071 - High Complexity PHYSICIAN CERTIFICATION: I certify the specified therapy services for Bebeto Christiansen are required, authorized, and reviewed every 30 days.
[2024-06-17 10:57] LABS: POC Glucose,Bedside 294 (70-110)
--- NOTE | 2024-06-17 11:10 | PC.NURSE ---
pt keeps removing bp cuff and pulse ox. pt won't wear gown.
--- NOTE | 2024-06-17 11:51 | P.CONCA_ITS ---
History of Present Illness History of Present Illness Consult date: 06/17/24 Requesting physician: Cullen Wu Chief complaint: SOB, edema History of present illness: This is a 63-year-old white gentleman who presented to the emergency department with complaints of shortness of breath and lower extremity edema. He states that he recently moved to the area from [place] to live with his sister due to poor health and declining status while living with his and daughter at home. The patient has recently been admitted to [facility] for 6 weeks because of heart failure, infected decubitus ulcers and osteomyelitis of the foot status post recent amputation. The patient states that he was discharged home and then readmitted to the hospital for the same issues. He states following the second hospitalization he was discharged to rehab and then recently went home from rehab. He states that he went back to [place] on Thursday of this week and following that visit home he had worsening symptoms. He states that his shortness of breath since significantly worsened after Thursday and riding in the car. He states that his shortness of breath became severe as well as having bilateral lower extremity edema and redness in his bilateral lower extremities. He denies any chest pain or pressure. He has significant orthopnea associated with his shortness of breath. He denies any fever, chills, nausea, vomiting or diarrhea. The patient has very poorly controlled diabetes and does not have a glucometer at home. The patient states that he began swelling and having worsening redness in his lower extremities after his trip to [place] on Thursday. He states that he has gained approximately 40 to 50 pounds since being discharged from the hospital. He has been admitted for an acute on chronic exacerbation of his HFpEF. He is currently getting IV Bumex. He states his shortness of breath has slightly improved. He states he has had no improvement in his edema with diuresis. His BNP is elevated as well as his CRP. His troponins are negative and he is ruled out for an NM. [facility] Disclaimer: The information contained in this section may have been updated after the patient was seen, as this information can be updated by other users. Medical History (Updated 06/17/24 @ 12:11 by Missy Chandra APRN) Atrial fibrillation Peripheral arterial disease Hypertension Diabetes mellitus Cellulitis of left lower extremity Venous stasis ulcer of both lower extremities without varicose veins Volume overload Cellulitis Acute on chronic heart failure with preserved ejection fraction (HFpEF) LORI (obstructive sleep apnea) Surgical History (Updated 06/17/24 @ 12:03 by Missy Chandra APRN) History of amputation of right fourth toe History of amputation of left fifth toe Social History Smoking Status: Never smoker alcohol intake: never current occupational status: retired and disabled Travel in the last 8 weeks: None Have you lived/traveled outside US in past 30 days?: No Contact w/someone who lives/traveled outside US past 30 days?: No Exposure to someone with infectious disease in past 14 days?: No Do you have a fever (greater than 100.4 F or 38 C)?: No Have you tested positive for COVID-19: No Exposed to someone with COVID-19 in past 14 days?: No Do you have a sore throat?: No Do you have a cough?: No Do you have any weakness?: No Do you have any diarrhea?: No Are you experiencing any unusual bleeding?: No Do you have any muscle aches/pain?: No Do you have any abdominal pain?: No Are you experiencing loss of taste or smell?: No Review of Systems Review of Systems Review of systems:: pertinent systems reviewed and negative unless documented below Constitutional Constitutional: Reports system reviewed and no additional complaints, except as documented, Reports fatigue and Reports lethargy Eyes Eyes: Reports system reviewed and no additional complaints, except as documented ENT Ears, Nose, Mouth, and Throat: Reports system reviewed and no additional complaints, except as documented *Cardiovascular Cardiovascular: Reports system reviewed and no additional complaints, except as documented, Denies chest pain, Reports diaphoresis, Reports dyspnea, Reports dyspnea on exertion, Reports edema, Reports leg edema, Reports leg ulcers, Reports orthopnea, Reports palpitations, Reports paroxysmal nocturnal dyspnea and Reports rapid heart rate *Respiratory Respiratory: Reports system reviewed and no additional complaints, except as documented, Reports dyspnea and Reports dyspnea on exertion *Gastrointestinal Gastrointestinal: Reports system reviewed and no additional complaints, except as documented *Genitourinary Genitourinary: Reports system reviewed and no additional complaints, except as documented *Musculoskeletal Musculoskeletal: Reports system reviewed and no additional complaints, except as documented Integumentary/Breasts Skin/Breast: Reports system reviewed and no additional complaints, except as documented, Reports wounds and Reports other (Erythema noted to the lower extremities) *Neurologic Neurologic: Reports system reviewed and no additional complaints, except as documented Psychiatric Psychiatric: Reports system reviewed and no additional complaints, except as documented Endocrine Endocrine: Reports system reviewed and no additional complaints, except as documented, Reports fatigue and Reports palpitations Hematologic/Lymphatic Hematologic/Lymphatic: Reports system reviewed and no additional complaints, except as documented Allergic/Immunologic Allergic/Immunologic: Reports system reviewed and no additional complaints, except as documented Exam Data for Last 24 hours Vital signs and Labs for Last 24 Hours: Temp Pulse Resp BP Pulse Ox O2 Del Method O2 Flow Rate 99.6 F 141 H 18 124/69 90 L Room Air 1 06/17/24 08:01 06/17/24 11:04 06/17/24 10:00 06/17/24 10:00 06/17/24 10:00 06/17/24 11:00 06/17/24 09:00 Laboratory Results - last 24 hr 06/16/24 12:55: Sodium 133 L, Potassium 4.3, Chloride 96 L, Carbon Dioxide 32 H, Anion Gap 9.3, BUN 30 H, Creatinine 0.90, Estimated Creat Clear 92, Estimated GFR 86, Est GFR ( Amer) 103, Glucose 330 H, Calcium 9.0, Magnesium 2.0, Total Bilirubin 0.4, AST 28, ALT 27, Alkaline Phosphatase 183 H, Troponin I < 0.01, NT-Pro-B Natriuret Pep 3540 H, Total Protein 6.9, Albumin 3.7, Globulin 3.2, Albumin/Globulin Ratio 1.2, Procalcitonin 0.301 06/16/24 12:57: WBC 10.9 H, RBC 4.21 L, Hgb 10.3 L, Hct 33.5 L, MCV 79.6 L, MCH 24.5 L, MCHC 30.7 L, RDW 17.9 H, Plt Count 303, MPV 9.8, Neut % (Auto) 84.4 H, Lymph % (Auto) 9.4 L, [place] % (Auto) 5.0, Eos % (Auto) 0.6, Baso % (Auto) 0.1, Neut # (Auto) 9.2 H, Lymph # (Auto) 1.0, [place] # (Auto) 0.5, Eos # (Auto) 0.1, Baso # (Auto) 0.0, ESR 55 H, PT 11.4, INR 1.02, Hemoglobin A1c 9.9 H, HCV Ab HAROLDO w/Rflx PCR Qn Negative, HIV Ag/Ab Combo Qual Negative 06/16/24 13:03: VBG pH 7.34, VBG pCO2 54.8 H, VBG pO2 34.2, VBG HCO3 29.0, VBG Total CO2 30.7 H, VBG O2 Saturation 62.1, VBG Base Excess 3.3 H, VBG Lactic Acid 1.2 06/16/24 13:05: Chlamy pneumoniae PCR Not detected, Adenovirus (PCR) Not detected, B. pertussis DNA (PCR) Not detected, Coronavirus OC43 (PCR) Not detected, Coronavirus HKU1 (PCR) Not detected, Coronavirus 229E (PCR) Not detected, SARS-CoV-2 (PCR) Not detected, Coronavirus NL63 (PCR) Not detected, Human Metapneumovir PCR Not detected, Influenza A (H1) PCR Not detected, Influ A (H1N1/09) PCR Not detected, Influenza A (H3) PCR Not detected, Influenza Type A (PCR) Not detected, Influenza Type B (PCR) Not detected, M. pneumoniae (PCR) Not detected, Parainfluenza 1 (PCR) Not detected, Parainfluenza 2 (PCR) Not detected, Parainfluenza 3 (PCR) Not detected, Parainfluenza 4 (PCR) Not detected, RSV (PCR) Not detected, Entero/Rhino (PCR) Not detected 06/16/24 17:46: Troponin I 0.01, C-Reactive Protein 313.6 H, TSH 1.16 06/16/24 20:36: POC Glucose 331 H* 06/16/24 20:47: Troponin I < 0.01 06/16/24 23:15: Sodium 134 L, Potassium 3.9, Chloride 97 L, Carbon Dioxide 31 H, Anion Gap 9.9, BUN 27 H, Creatinine 0.90, Estimated Creat Clear 92, Estimated GFR 86, Est GFR ( Amer) 103, Glucose 222 H D, Calcium 8.9 06/17/24 05:20: Urine Color Yellow, Urine Appearance Clear, Urine pH 5.5, Ur Specific [place] 1.020, Urine Protein Negative, Urine Glucose (UA) Negative, Urine Ketones Negative, Urine Blood Negative, Urine Nitrate Negative, Urine Bilirubin Negative, Urine Urobilinogen 0.2, Ur Leukocyte Esterase Negative, Urine RBC Occasional, Urine WBC Occasional, Ur Squamous Epith Cells 3-5 06/17/24 05:42: WBC 12.1 H, RBC 4.07 L, Hgb 9.7 L, Hct 31.8 L, MCV 78.1 L, MCH 23.8 L, MCHC 30.5 L, RDW 17.7 H, Plt Count 321, MPV 9.7, Neut % (Auto) 80.8 H, Lymph % (Auto) 10.0, [place] % (Auto) 6.8, Eos % (Auto) 1.2, Baso % (Auto) 0.2, Neut # (Auto) 9.8 H, Lymph # (Auto) 1.2, [place] # (Auto) 0.8, Eos # (Auto) 0.2, Baso # (Auto) 0.0, ESR 102 H, Sodium 134 L, Potassium 3.7, Chloride 99, Carbon Dioxide 30, Anion Gap 8.7, BUN 22 H, Creatinine 0.90, Estimated Creat Clear 92, Estimated GFR 86, Est GFR ( Amer) 103, Glucose 209 H, Calcium 8.4, Magnesium 1.6 D, Iron 17 L, TIBC 280, Iron Saturation 6.77528 L, Ferritin 128, Total Bilirubin 0.4, AST 33, ALT 31, Alkaline Phosphatase 172 H, C-Reactive Protein 246.9 H, Total Protein 6.5, Albumin 3.4 L, Globulin 3.1, Albumin/Globulin Ratio 1.1, Triglycerides 182 H, Cholesterol 150, LDL Cholesterol Direct 65.94 L, VLDL Cholesterol 36, HDL Cholesterol 35 L, Cholesterol/HDL Ratio 4.3 H 06/17/24 06:00: POC Glucose 229 H 06/17/24 10:50: POC Glucose 294 H I & O for Last 24 hours: Intake & Output 06/14/24 06/15/24 06/16/24 06/17/24 23:59 23:59 23:59 23:59 Intake Total 60 / 60 699.583 / 699.583 Output Total 400 / 400 3650 / 3650 Balance -340 / -340 -2950.417 / -2950.417 Weight 450 lb 0.005 oz 449 lb 11.888 oz Microbiology Reports for the Last 24 Hours: Microbiology 06/16/24 14:35 Buttock Gram Stain - Final 06/16/24 14:35 Buttock Wound Culture - Preliminary Gram Negative Rods 06/16/24 12:57 Blood Blood Culture - Preliminary Constitutional Constitutional: no acute distress, morbidly obese and chronically ill appearing *Routine HEENT Exam Head: Present normocephalic and atraumatic ENT: Present mucous membranes moist; Absent dentition normal *Routine Neck Exam Neck: Present supple, full ROM and normal carotid upstroke; Absent JVD, carotid bruit or lymphadenopathy *Routine Respiratory Exam Respiratory: Present decreased breath sounds, rales, rhonchi, wheezes, normal respiratory effort, able to speak in complete sentences and symmetric chest movement *Routine Cardiovascular Exam Cardiovascular: Present Normal S1, Normal S2 and irregularly irregular; Absent murmur or gallop *Routine Abdominal Exam Abdominal: Present soft, normoactive bowel sounds and obese; Absent tenderness, distended or organomegaly *Routine Extremities Exam Extremities: Present edema, pulses intact and normal capillary refill; Absent cyanosis or clubbing *Routine Skin Exam Skin: Present erythema and warm *Routine Neurological Exam Neurological: Present alert, oriented X3 and CN II-XII intact; Absent sensory deficit or motor deficit Routine Psychiatric Exam Psychiatric: Present normal affect Meds Home Medications and Allergies Home Medications ?Medication ?Instructions ?Recorded ?Confirmed ?Type metoprolol succinate 50 mg 50 mg PO DAILY 06/16/24 06/16/24 History tablet,extended release 24 hr torsemide 20 mg tablet 20 mg PO DAILY 06/16/24 06/16/24 History valsartan 40 mg tablet 40 mg PO DAILY 06/16/24 06/16/24 History New Prescriptions to Start Prescriptions: Allergies Allergy/AdvReac Type Severity Reaction Status Date / Time hydromorphone (From Dilaudid) AdvReac Vomiting Verified 06/16/24 12:57 morphine AdvReac Vomiting Verified 06/16/24 12:57 Assessment and Plan *Assessment and plan (1) Acute on chronic heart failure with preserved ejection fraction (HFpEF): Status: Acute Category: Medical Code(s): I50.33 - Acute on chronic diastolic (congestive) heart failure (2) Cellulitis: Status: Acute Qualifiers: Laterality: left Site of cellulitis: extremity Site of cellulitis of extremity: lower extremity Qualified Code(s): L03.116 - Cellulitis of left lower limb Category: Medical Code(s): L03.90 - Cellulitis, unspecified (3) Volume overload: Status: Acute Qualifiers: Hypervolemia type: unspecified Qualified Code(s): E87.70 - Fluid overload, unspecified Category: Medical Code(s): E87.70 - Fluid overload, unspecified (4) Cellulitis of left lower extremity: Status: Acute Category: Medical Code(s): L03.116 - Cellulitis of left lower limb (5) Atrial fibrillation: Status: Acute Qualifiers: Atrial fibrillation type: unspecified chronic Qualified Code(s): I48.20 - Chronic atrial fibrillation, unspecified Category: Medical Code(s): I48.91 - Unspecified atrial fibrillation (6) Peripheral arterial disease: Status: Acute Category: Medical Code(s): I73.9 - Peripheral vascular disease, unspecified (7) Diabetes mellitus: Status: Acute Qualifiers: Diabetes mellitus complication status: with hyperglycemia Diabetes mellitus longterm insulin use: without longterm use Diabetes mellitus type: type 2 Qualified Code(s): E11.65 - Type 2 diabetes mellitus with hyperglycemia Category: Medical Code(s): E11.9 - Type 2 diabetes mellitus without complications (8) Hypertension: Status: Acute Qualifiers: Hypertension type: primary hypertension Qualified Code(s): I10 - Essential (primary) hypertension Category: Medical Code(s): I10 - Essential (primary) hypertension (9) LORI (obstructive sleep apnea): Status: Acute Category: Medical Code(s): G47.33 - Obstructive sleep apnea (adult) (pediatric) Plan Plan: 1. The patient was admitted to the hospital with shortness of breath. He had an elevated BNP. The patient has recently been admitted to [facility] with an exacerbation of CHF. He is currently being treated for acute on chronic HFpEF. He has a -1 L fluid balance. Will continue diuresis with a Bumex drip. 2. Add spironolactone 25 mg p.o. daily for continued diuresis. 3. Continue valsartan for his acute on chronic HFpEF. 4. Once he is euvolemic start Jardiance 10 mg daily for HFpEF. 5. The patient did have atrial fibrillation with RVR on admission. He has been started on a diltiazem drip. He is currently rate controlled in atrial fibrillation. Will start him on oral diltiazem 360 mg p.o. daily and stop his diltiazem drip 1 hour after his first p.o. dose has been given. Continue metoprolol succinate 100 mg p.o. daily as well for atrial fibrillation suppression. 6. The patient reports that he is supposed to be on Eliquis 5 mg p.o. twice daily but after he got discharged from the rehabilitation facility he has not been given any prescriptions for the Eliquis but he has been on this for known atrial fibrillation. He states multiple medications have not been given to him since being discharged from the rehabilitation facility. He will need to be on long-term anticoagulation with Eliquis 5 mg p.o. twice daily before he is discharged from the hospital. He is currently on subcu Lovenox. 7. His blood pressure is well-controlled. 8. His LDL goal is less than 55. His LDL is 65. We do recommend low-dose Lipitor 10 mg p.o. nightly due to his history of PAD. 9. The patient does report a history of PAD with stenting to his lower extremities in the past. We do recommend aspirin 81 mg daily. 10. He denies any chest pain or pressure. His troponins are negative. No plans for invasive left cardiac catheterization at this time. 11. Will obtain an echocardiogram to evaluate his LV function due to his shortness of breath and acute on chronic HFpEF. 12. The patient does have an elevated CRP and known infective decubitus ulcers. He is getting IV antibiotics. Will defer to the hospitalist. 13. The patient is diabetic. He will need aggressive control of his diabetes. Will defer this to the hospitalist. 14. The patient is anemic. He is getting iron studies. Will defer management of this to the hospitalist. 15. Further recommendations will be made pending the patient's response to treatment. The patient will need to be diuresed over the weekend and will resume cardiology follow-up on Thursday. Thank you for the opportunity to help participate in the care of this patient. All recommendations and orders are per Dr. Crocker.
[2024-06-17] MEDS: SPIRONOLACTONE 25MG TABLET 25 MG PO (12:18)
[2024-06-17] MEDS: dilTIAZem HCL 180MG CAP.ER.24H 360 MG PO (12:18)
[2024-06-17] MEDS: IRBESARTAN 75MG TABLET 37.5 MG PO (12:19)
--- NOTE | 2024-06-17 12:27 | HMH.OTEV ---
OT Inpatient Evaluation Rehab OT IP Evaluation Start: 06/16/24 22:30 Freq: ONCE Status: Active Protocol: Document 06/17/24 12:14 GÓMEZ (Rec: 06/17/24 12:24 [id number]) Rehab OT IP Assessment Subjective History Mr. Christiansen is a 63-year-old male who was recently moved to the area to live with his sister due to poor health and declining status living with family in [place]. He has a history of morbid obesity, CHF , diabetes, LORI. Had developed significant debility and numerous pressure wounds. Per review of notes from [facility] and ER documentation, the patient had recently spent 6 weeks hospitalized at [facility] for heart failure, infected decubitus wounds, osteomyelitis of his foot status post amputation, and significant debility. He discharged to rehab for several weeks and then got readmitted to [facility] for 3 more weeks due to recurrent heart failure and volume overload. Was not a candidate for rehab placement after that admission and discharged home where he has been for approximately 3 weeks. Has not had follow-up as an outpatient with PCP or specialists as of yet. Taking some but not all of the medications prescribed at last visit. Has not been on blood thinners due to cost and insurance issues. Received stents in his lower extremities due to peripheral artery disease during one of his previous hospitalizations. Diabetes has been poorly controlled as he has not had a glucometer. He presented to the ER today due to worsening weakness, shortness of breath, swelling in legs and redness especially in his left leg. On presentation, concern for acute on chronic heart failure , volume overload, cellulitis. Patient's weight is up approximately 40 pounds from his last documented weight and discharge from [facility] several weeks ago. He has draining ulcerative wounds on his lower extremities. Redness progressing up his left leg almost to his thigh. Also has a red patch of skin on his right side. Decubitus wound on his bottom reportedly appears better than images from when he first presented to [facility] in March. He is afebrile and has normal kidney function on labs and a white count of 10.9. Is dyspneic, unable to lay flat due to shortness of breath, chest imaging positive for cardiomegaly. Medicine was consulted for consideration for admission and further management. On evaluation, patient appears in moderate distress. Is morbidly obese and chronically ill. Able to answer questions but dyspneic after each sentence. On room air with sats in the low 90s. Currently receiving IV vancomycin. Received one-time dose of Bumex in the ER. After evaluation, determination made that patient was appropriate for admission at this time as there is no emergent need for transfer however had candid conversation with patient that if he has worsening condition , needs imaging such as CT's, we may have to transfer due to his size and complexity and limitations of our facility. Patient states understanding. Patient sisters at bedside helps supplement history. Patient lives in 1 story home with ramp to enter with multiple family members. Patient completed all ADLs and fx'l mobility independently. Subjective I need help to stand. Instructed Patient on STS with usage of RW requiring CGA. Patient completed 3 side steps to move more to the head of the bed. Good static standing balance. Patient requiring Max A x2 from EOB->supine. Left Patient sitting upright in bed with needs met. Objective Patient Orientation Person,Place,Name,Birthday Right Upper Extremity Gross ROM WFL Left Upper Extremity Gross ROM WFL Bed Mobility bed mobility - supine/sit Assist Level Maximum x 2 (75% assist) Transfer Training Sit/Stand Transfer Assist Level Contact Guard/Hand Hold Chair Transfer Ability Supervision/Stand by,Contact Guard/Hand Hold Chair Transfer Assistive Devices Rolling Walker Rehab OT IP prob,goals,plan Problems Date of Evaluation: 06/17/24 OT IP Problems Bed Mobility,Transfers,Balance ,Self care,Safety Rehab Potential Rehab Potential Good Equipment Needs Assistive Devices Rolling / Wheeled Walker Plan OT intervention Plan Bed Mobility,Transfers,Balance ,Self care,Safety,Therapeutic Exercise OT Plan Frequency Daily Duration LOS Discharge Goals Bed Mobility Ability Assistance x1 Sit to Stand Chair Transfer Ability Maximum x 1 (75% assist) Chair Transfer Ability Maximum x 1 (75% assist) Chair Transfer Technique Sit to/from Ambulatory Chair Transfer Assistive Devices Rolling Walker Discharge Plan OT Discharge Plan Recommend placement for patient after medical d/c. Patient will continue to need 1-2 assistance for ADLs and fx 'l mobility. Patient will continue to be seen by OT IP services while here at [facility]. Eval Complexity Eval Charge Codes 23809 - Low Complexity PHYSICIAN CERTIFICATION: I certify the specified therapy services for Bebeto Nease are required, authorized, and reviewed every 30 days.
--- NOTE | 2024-06-17 13:07 | PC.NURSE ---
Alfreda at bedside to do ultrasound of pt's renal arteries. pt refused at this time stating he wants to sit up on the side of the bed right now. This nurse to call Alfreda once patient wants to lay back in bed.
--- NOTE | 2024-06-17 13:20 | PC.NURSE ---
cardizem drip stopped at this time.
[2024-06-17] MEDS: LINEZOLID 600 MG/300 ML IV.SOLN 300 MG IV (14:06)
--- NOTE | 2024-06-17 16:24 | PC.NURSE ---
report given to KARTHIK Valdovinos at this time.
--- NOTE | 2024-06-17 16:44 | PC.NURSE ---
arrived to floor by w/c from ICU
[2024-06-17 17:06] LABS: POC Glucose,Bedside 325 (70-110)
[2024-06-17] MEDS: HYDROCODONE/APAP 5/325 MG TABLET 2 TAB PO ×2 (17:24→21:00)
--- NOTE | 2024-06-17 18:27 | PC.NURSE ---
Pt transferred from ICU at 1644. Controlled afib. Up with 2 and FWW but does not need as much assistance as he requests. Multiple skin issues as charted in photos. Wounds continue to drain. [place] given for chronic pain.
[2024-06-17] MEDS: PANTOPRAZOLE 40MG TABLET 40 MG PO (20:59)
[2024-06-17] MEDS: GABAPENTIN 300MG CAPSULE 600 MG PO (21:00)
[2024-06-17] MEDS: ATORVASTATIN 10MG TABLET 10 MG PO (21:01)
[2024-06-17] MEDS: APIXABAN 5MG TABLET 5 MG PO (21:01)
[2024-06-17 21:15] LABS: POC Glucose,Bedside 379 (70-110)
[2024-06-17] MEDS: INSULIN GLARGINE 100 UNITS/ML 3ML FLEXPEN 40 UNIT SUBCUT (21:15)
[2024-06-18] VITALS (14 sets, daily range): BP systolic 121–136; BP diastolic 43–88; PULSE 70–120; RESP 15–19; TEMP 36.5–37; O2SAT 93–96; BMI 55.9
[2024-06-18] MEDS: LEVALBUTEROL 1.25MG/3ML NEB 1.25 MG IH ×4 (00:19→18:32)
[2024-06-18] MEDS: CEFEPIME HCL 2 GM in 0.9 % SODIUM CHLORIDE 100 ML IV ×3 (03:27→18:27)
[2024-06-18] MEDS: LINEZOLID 600 MG/300 ML IV.SOLN 300 MG IV ×2 (03:28→15:05)
--- NOTE | 2024-06-18 04:25 | INFXCTL.NOTE ---
V/s, Ox4. Pt continues to tolerate IV ABX. No acute events to report. Plan of care ongoing.
[2024-06-18 07:05] LABS: POC Glucose,Bedside 321 (70-110)
[2024-06-18] MEDS: humaLOG 100 UNITS/ML 10ML VIAL (SSI) SUBCUT ×4 (07:08→21:07)
[2024-06-18] MEDS: BUMETANIDE 10 MG in 0.9 % SODIUM CHLORIDE 60 ML IV ×2 (07:29→17:11)
[2024-06-18] MEDS: BENZONATATE 100MG CAPSULE 200 MG PO (08:31)
[2024-06-18] MEDS: HYDROCODONE/APAP 5/325 MG TABLET 2 TAB PO ×2 (08:31→19:48)
[2024-06-18] MEDS: dilTIAZem HCL 180MG CAP.ER.24H 360 MG PO (08:31)
[2024-06-18] MEDS: METOPROLOL SUCCINATE XL 100MG TABLET 100 MG PO ×2 (08:32→21:12)
[2024-06-18] MEDS: IRBESARTAN 75MG TABLET 37.5 MG PO (08:32)
[2024-06-18] MEDS: APIXABAN 5MG TABLET 5 MG PO ×2 (08:32→21:11)
[2024-06-18] MEDS: ASPIRIN EC 81MG TABLET 81 MG PO (08:32)
[2024-06-18] MEDS: METHOCARBAMOL 500MG TABLET 500 MG PO ×3 (08:32→21:13)
[2024-06-18] MEDS: GABAPENTIN 300MG CAPSULE 600 MG PO ×3 (08:32→21:10)
[2024-06-18] MEDS: SPIRONOLACTONE 25MG TABLET 25 MG PO ×2 (08:32→15:16)
[2024-06-18] MEDS: ONDANSETRON 4MG/2ML VIAL 4 MG IV (08:33)
[2024-06-18] MEDS: MUPIROCIN 2% OINTMENT 22GM TUBE TP ×3 (08:55→21:13)
[2024-06-18] MEDS: KETOROLAC 30MG/ML VIAL 15 MG IV (09:18)
--- NOTE | 2024-06-18 10:15 | EXP.SURG.PN ---
Subjective Patient reports: no new complaints, feels better and still having pain Narrative: Complaining of back/leg pain. Exam Data for Last 24 hours Vital signs and Labs for Last 24 Hours: Temp Pulse Resp BP Pulse Ox O2 Del Method O2 Flow Rate 98.6 F 91 H 19 125/58 L 96 Room Air 1 06/18/24 08:00 06/18/24 08:00 06/18/24 08:00 06/18/24 08:00 06/18/24 08:00 06/18/24 09:00 06/18/24 06:59 Laboratory Results - last 24 hr 06/17/24 10:50: POC Glucose 294 H 06/17/24 16:55: POC Glucose 325 H* 06/17/24 20:58: POC Glucose 379 H* 06/18/24 06:54: POC Glucose 321 H* I & O for Last 24 hours: Intake & Output 06/15/24 06/16/24 06/17/24 06/18/24 11:59 11:59 11:59 11:59 Intake Total 759.583 / 899.384 6025 / 1897 Output Total 4050 / 4050 4450 / 4450 Balance -3290.417 / -3290.417 -2553 / -2553 Weight 449 lb 11.888 oz 449 lb 11.888 oz Microbiology Reports for the Last 24 Hours: Microbiology 06/16/24 14:35 Buttock Gram Stain - Final 06/16/24 14:35 Buttock Wound Culture - Preliminary Providencia rettgeri Gram Positive Cocci 06/17/24 05:00 Buttock Gram Stain - Final 06/17/24 05:00 Buttock Wound Culture - Preliminary 06/17/24 05:00 Leg,Left Gram Stain - Final 06/17/24 05:00 Leg,Left Wound Culture - Preliminary 06/16/24 12:57 Blood Blood Culture - Preliminary Gram Positive Cocci 06/17/24 07:50 Blood Blood Culture - Preliminary NO GROWTH AFTER 24 HOURS 06/17/24 07:50 Blood Blood Culture - Preliminary NO GROWTH AFTER 24 HOURS 06/16/24 12:55 Blood Blood Culture - Preliminary NO GROWTH AFTER 24 HOURS Constitutional Constitutional: no acute distress *Routine Skin Exam Comments: Improvement with regard to multifocal areas of maceration and superficial soft tissue thickening along sacral region, buttock, and malina-scrotal region. Stable with regard to patchy dark discoloration . No evidence of spreading cellulitis. No definitive evidence of necrosis. Progress Note: A&P Assessment and plan (1) Sacral wound: Status: Acute Assessment and plan: Overall, showing some improvement with dry dressing changes. Continue dry dressing changes Continue pressure relief to the degree possible
--- NOTE | 2024-06-18 10:16 | PC.NURSE ---
Pt. moved to chair with Dr. Wu and Yunier in patient's room. Multiple towels placed under and around patient's buttock and legs, groin placed L AND R with pillowcase to absorb fluid.
[2024-06-18 11:08] LABS: POC Glucose,Bedside 348 (70-110)
[2024-06-18 11:47] LABS: Basophils % 0.2 % (0.1-2.0); Eosinophils # 0.3 K/mm3 (0.0-0.4); Eosinophils % 3.4 % (0.1-12.0); Hematocrit 29.2 % (42.0-52.0); Lymphocytes # 0.9 K/mm3 (0.7-4.5); Lymphocytes % 9.5 % (10-50); Mean Corpuscular HGB Conc 30.8 g/dL (31.8-35.4); Mean Corpuscular Hemoglobin 24.1 pg (27.0-31.2); Mean Corpuscular Volume 78.3 fl (80-94); Mean Platelet Volume 9.5 fl (7.4-10.4); Monocytes # 0.6 K/mm3 (0.1-1.0); Monocytes % 7.1 % (1.7-9.3); Neutrophils % 78.3 % (37.0-80.0); Platelet Count 313 K/mm3 (142-424); Red Blood Count 3.73 M/mm3 (4.60-6.20); Red Cell Distribution Width 17.5 % (11.5-17.5); White Blood Count 8.9 K/mm3 (4.8-10.8)
[2024-06-18 11:54] LABS: Albumin Level 3.4 g/dl (3.5-5.0); Chloride 93 mmol/L (98-107); Potassium 3.8 mmoL/L (3.5-5.1); Sodium 131 mmol/L (136-145)
[2024-06-18 11:56] LABS: Blood Urea Nitrogen 20 mg/dl (9-20); Creatinine Clearance Estimated 92 mL/min (50-200); Estimated Glomerular Filt Rate 76 ml/min (>60); GFR (African American) 92 ML/MIN (>60)
[2024-06-18 11:57] LABS: Alanine Aminotransferase 32 U/L (12-78); Albumin/Globulin Ratio 1.1 (1.1-1.8); Alkaline Phosphatase 181 U/L (38-126); Anion Gap 9.8 mEq/L (5-15); Aspartate Amino Transferase 32 U/L (17-59); Bilirubin,Total 0.3 mg/dl (0.2-1.3); Carbon Dioxide 32 mmol/L (22.0-30.0); Glucose 318 mg/dl (74-100); Magnesium 1.6 mg/dl (1.6-2.3); Total Protein,Serum 6.4 g/dl (6.3-8.2)
--- NOTE | 2024-06-18 14:20 | P.PN_ITS ---
Subjective *Date: 06/18/24 *Time: 14:25 Interval history: Breathing little better today. Wore oxygen overnight. Weaned to room air during the day. Patient able to get up with assistance from bed and ambulate with walker. Denies chest pain. -5 L total since admission, -3 L in the past 24 hours. Afebrile overnight. Medical Exam Vital signs and Labs for Last 24 Hours: Vital Signs Temp Pulse Pulse Resp BP Pulse Ox O2 Del Method 06/18/24 12:48 Room Air 06/18/24 12:00 120 H 06/18/24 11:48 98.5 F 74 15 121/43 L 94 L Room Air 06/18/24 11:17 72 06/18/24 11:17 71 06/18/24 11:17 94 L Room Air 06/18/24 10:19 Room Air 06/18/24 09:00 Room Air 06/18/24 08:00 120 H 06/18/24 08:00 Room Air 06/18/24 08:00 98.6 F 91 H 19 125/58 L 96 Room Air 06/18/24 06:59 Nasal Cannula 06/18/24 06:22 96 H 06/18/24 06:22 96 H 06/18/24 06:22 94 L Room Air 06/18/24 04:23 Nasal Cannula 06/18/24 04:00 70 06/18/24 04:00 97.9 F 91 H 131/88 96 Nasal Cannula 06/18/24 03:15 70 06/18/24 02:11 Nasal Cannula 06/18/24 00:35 Nasal Cannula 06/18/24 00:20 78 06/18/24 00:20 76 06/18/24 00:00 98.6 F 79 18 128/59 L 93 L Room Air 06/17/24 22:01 Nasal Cannula 06/17/24 20:13 Nasal Cannula 06/17/24 20:00 70 06/17/24 19:41 Room Air, Nasal Cannula 06/17/24 19:39 98.5 F 73 16 110/57 L 96 Room Air 06/17/24 18:57 Room Air 06/17/24 18:44 87 06/17/24 18:44 85 06/17/24 18:44 95 Room Air 06/17/24 17:07 80 06/17/24 17:00 Room Air 06/17/24 16:00 90 06/17/24 16:00 98.0 F 06/17/24 15:59 92 H 18 98 Room Air 06/17/24 15:00 Room Air O2 Flow Rate 06/18/24 12:48 06/18/24 12:00 06/18/24 11:48 06/18/24 11:17 06/18/24 11:17 06/18/24 11:17 06/18/24 10:19 06/18/24 09:00 06/18/24 08:00 06/18/24 08:00 06/18/24 08:00 06/18/24 06:59 1 06/18/24 06:22 06/18/24 06:22 06/18/24 06:22 06/18/24 04:23 1 06/18/24 04:00 06/18/24 04:00 4 06/18/24 03:15 06/18/24 02:11 1 06/18/24 00:35 1 06/18/24 00:20 06/18/24 00:20 06/18/24 00:00 06/17/24 22:01 1 06/17/24 20:13 1 06/17/24 20:00 06/17/24 19:41 1 06/17/24 19:39 06/17/24 18:57 06/17/24 18:44 06/17/24 18:44 06/17/24 18:44 06/17/24 17:07 06/17/24 17:00 06/17/24 16:00 06/17/24 16:00 06/17/24 15:59 06/17/24 15:00 Intake and Output 06/17/24 06/18/24 06/18/24 23:59 07:59 15:59 Intake Total 843 / 2156.583 160 / 500 340 / 500 Output Total 1000 / 5950 1000 / 2150 1150 / 2150 Balance -157 / -3793.417 -840 / -1650 -810 / -1650 Intake: Intake, Oral Amount 240 / 240 Intake, Total IV Amount 843 / 1062.583 160 / 260 100 / 260 Bumetanide 10 mg In 0.9 % 143 / 203 60 / 60 Sodium Chloride 60 ml @ 10 mls/ hr IV .Q10H [facility] Rx#:[id number] Cefepime HCl 2 gm In 0.9 % 100 / 100 Sodium Chloride 100 ml @ 200 mls/hr IV Q8H [facility] Rx#:[id number] Iron Sucrose Complex 200 mg In 100 / 100 0.9 % Sodium Chloride 100 ml @ 220 mls/hr IV ONCE ONE Rx#: [id number] Vancomycin HCl 2,500 mg In 0.9 500 / 500 % Sodium Chloride 500 ml @ 250 mls/hr IV Q8H [facility] Rx#:[id number] Output: Output, Urine Amount 1000 / 5950 1000 / 2150 1150 / 2150 Other: Number of Unmeasured Voids 1 1 0 Weight 204 kg Patient Weight 06/18/24 23:59 Weight 204 kg Laboratory Results - last 24 hr 06/17/24 16:55: POC Glucose 325 H* 06/17/24 20:58: POC Glucose 379 H* 06/18/24 06:54: POC Glucose 321 H* 06/18/24 11:01: POC Glucose 348 H* 06/18/24 11:35: WBC 8.9 D, RBC 3.73 L, Hgb 9.0 L, Hct 29.2 L, MCV 78.3 L, MCH 24.1 L, MCHC 30.8 L, RDW 17.5, Plt Count 313, MPV 9.5, Neut % (Auto) 78.3, Lymph % (Auto) 9.5 L, [place] % (Auto) 7.1, Eos % (Auto) 3.4, Baso % (Auto) 0.2, Neut # (Auto) 7.0, Lymph # (Auto) 0.9, [place] # (Auto) 0.6, Eos # (Auto) 0.3, Baso # (Auto) 0.0, Sodium 131 L, Potassium 3.8, Chloride 93 L, Carbon Dioxide 32 H, Anion Gap 9.8, BUN 20, Creatinine 1.00, Estimated Creat Clear 92, Estimated GFR 76, Est GFR ( Amer) 92, Glucose 318 H, Calcium 8.0 L, Magnesium 1.6, Total Bilirubin 0.3, AST 32, ALT 32, Alkaline Phosphatase 181 H, Total Protein 6.4, Albumin 3.4 L, Globulin 3.0, Albumin/Globulin Ratio 1.1 I & O for Labs for Last 24 Hours: Intake & Output 06/15/24 06/16/24 06/17/24 06/18/24 23:59 23:59 23:59 23:59 Intake Total 60 / 60 2096.583 / 2156.583 500 / 500 Output Total 400 / 400 5950 / 5950 2150 / 2150 Balance -340 / -340 -3853.417 / -3793.417 -1650 / -1650 Weight 204.117 kg 204 kg 204 kg Microbiology Reports for the Last 24 Hours: Microbiology 06/16/24 12:55 Blood Blood Culture - Preliminary 06/16/24 14:35 Buttock Gram Stain - Final 06/16/24 14:35 Buttock Wound Culture - Preliminary Providencia rettgeri Gram Positive Cocci 06/17/24 05:00 Buttock Gram Stain - Final 06/17/24 05:00 Buttock Wound Culture - Preliminary 06/17/24 05:00 Leg,Left Gram Stain - Final 06/17/24 05:00 Leg,Left Wound Culture - Preliminary 06/16/24 12:57 Blood Blood Culture - Preliminary Gram Positive Cocci 06/17/24 07:50 Blood Blood Culture - Preliminary NO GROWTH AFTER 24 HOURS 06/17/24 07:50 Blood Blood Culture - Preliminary NO GROWTH AFTER 24 HOURS Constitutional: Present no acute distress, morbidly obese, chronically ill appearing and cooperative Head: Present atraumatic and normocephalic ENT: Present normal exam Respiratory: Present distant breath sounds and normal respiratory effort; Absent accessory muscle use, respiratory distress, stridor, wheezes or crackles Cardiac: Present Reg Rate and Rhythm Comment:: Irregularly irregular, tachycardic GI: Present soft, distention and normal bowel sounds; Absent tenderness Rectal (male): Present normal inspection Comments:: In the perianal region however patient has breakdown of skin through the epidermis in multiple spots. No appreciable fluctuance or draining lesions. Area significantly moist. Comment:: Unable to find penis due to prominent suprapubic fat pad. Severely retracted. Extremities: Present full ROM, tenderness and edema (4+ to lower abdomen) Comment:: Erythema bilateral legs improving, still has significant stasis dermatitis in lower extremities. Skin: Present erythema and wounds Comment:: Wounds in perineal region as mentioned above. More dry today. No weeping or draining today. Weeping on lower legs however. Numerous scabbed lesions on torso and arms Neuro: Present Grossly Intact, alert, awake, oriented x 3 and moves all extremities Assessment and Plan *Assessment and plan (1) Acute on chronic heart failure with preserved ejection fraction (HFpEF): Status: Acute Category: Medical Code(s): I50.33 - Acute on chronic diastolic (congestive) heart failure (2) Bacteremia due to group B Streptococcus: Status: Acute Category: Medical Code(s): R78.81 - Bacteremia; B95.1 - Streptococcus, group B, as the cause of diseases classified elsewhere (3) Morbid obesity with BMI of 50.0-59.9, adult: Status: Acute Category: Medical Code(s): E66.01 - Morbid (severe) obesity due to excess calories; Z68.43 - Body mass index [BMI] 50.0-59.9, adult (4) Volume overload: Status: Acute Qualifiers: Hypervolemia type: unspecified Qualified Code(s): E87.70 - Fluid overload, unspecified Category: Medical Code(s): E87.70 - Fluid overload, unspecified (5) Venous stasis ulcer of both lower extremities without varicose veins: Status: Acute Category: Medical Code(s): I87.2 - Venous insufficiency (chronic) (peripheral); L97.919 - Non-pressure chronic ulcer of unspecified part of right lower leg with unspecified severity; L97.929 - Non-pressure chronic ulcer of unspecified part of left lower leg with unspecified severity (6) Cellulitis of left lower extremity: Status: Acute Category: Medical Code(s): L03.116 - Cellulitis of left lower limb (7) Microcytic anemia: Status: Acute Category: Medical Code(s): D50.9 - Iron deficiency anemia, unspecified (8) Adult failure to thrive: Status: Acute Category: Medical Code(s): R62.7 - Adult failure to thrive (9) LORI (obstructive sleep apnea): Status: Acute Category: Medical Code(s): G47.33 - Obstructive sleep apnea (adult) (pediatric) (10) Diabetes mellitus: Status: Acute Qualifiers: Diabetes mellitus complication status: with hyperglycemia Diabetes mellitus assisted insulin use: without bed bug exterminator use Diabetes mellitus type: type 2 Qualified Code(s): E11.65 - Type 2 diabetes mellitus with hyperglycemia Category: Medical Code(s): E11.9 - Type 2 diabetes mellitus without complications (11) Sacral wound: Status: Acute Qualifiers: Encounter type: initial encounter Qualified Code(s): S31.000A - Unspecified open wound of lower back and pelvis without penetration into retroperitoneum, initial encounter Category: Medical Code(s): S31.000A - Unspecified open wound of lower back and pelvis without penetration into retroperitoneum, initial encounter Plan 63-year-old male with morbid obesity, acute on chronic HFpEF, volume overload, cellulitis. Discussed case with ER physician, after much discussion and evaluation of patient, decision made to admit for acute on chronic conditions, IV antibiotics, aggressive diuresis, and evaluation by therapy for possible placement. Patient's blood cultures came back positive overnight. Doing better over the past 24 hours. Responding to diuresis. Cardiology and surgery assisting with care and management. Continues to require patient management. Tolerating Bumex drip. On oral rate controlling meds. Problems addressed as follows: Acute on Chronic HFpEF A-fib with RVR Hypertension -Cardiology assisting with care. Will continue Bumex drip 1 mg/h, -5 L since admission, -3 L in the past 24 hours. Continue to monitor close output. Does not include output that has spilled in bed which has been significant. Legs appearing better. Patient reports less swelling in his legs. -Continue spironolactone 25 mg, increase to twice daily. Continue irbesartan as formulary conversion for home valsartan at 37-1/2 mg daily -Continue oral diltiazem 360 mg daily; increase metoprolol succinate to 100 mg twice daily - Eliquis 5 mg twice daily. -Continue aspirin 81 mg daily for PAD. -Echo obtained, formal read still pending. Preliminary appears to show preserved EF with diastolic dysfunction Diabetes: - A1c 9.9. Continue high intensity sliding scale insulin with fingersticks ACHS. Morning glucose 318. Increase Lantus to 65 units tonight - diabetic diet of 1800 jone. -Cardiology recommends considering initiation of Jardiance for diabetes and heart failure as above; in light of patient's breakdown of skin in his groin however, concerned that SGLT2 would drastically increase his risk for Marilin's and will hold on initiating at this time. cellulitis Group B strep bacteremia -White count improved to 8.9, blood cultures growing group B strep, wound culture with Hubbard. -Continue Zyvox 600 mg twice daily and cefepime 2 g every 8 hours. -Repeat CBC, CMP, ESR and CRP ordered for the morning -Wound care assisting with ulcerations on legs. Erythema somewhat better in left lower leg - Mupirocin for excoriations on torso -If wounds on foot worsen, will consider podiatry consult next week when she is back in the hospital. -Wounds evaluated and perineal region, looking better today with dry dressings. Continue dry dressings. No plan for intervention at this time. Discussed case with surgery, continue wound management as stated. Kidney function appears normal at this time with BUN of 20, creatinine 1.2. Monitor for LUPE. Microcytic anemia: Hemoglobin 9.0 today, iron studies show low levels. Status post 1 dose Venofer 200 mg IV, Transfusion threshold hemoglobin less than 7 LORI: Consider oxygen at night versus CPAP after discussion with patient about his home regimen. Morbid obesity complicates all aspects of his care. PT and OT consulted along with social work to assist with dispo planning in next site of care; PT evaluated and states patient is independently mobile. Safe to discharge home when medically stable. Full code eliquis 5mg BID Diabetic diet
[2024-06-18] MEDS: POLYETHYLENE GLYCOL 3350 17 GM PACKET PO (15:05)
--- NOTE | 2024-06-18 16:20 | PC.NURSE ---
Pt is aox 4, up with assistance times 2 with walker to chair, 95% on RA, fsbg achs, 20g AC Bumex gtt at 10ml / hr, 20g L AC SL, consult PT, OT, NUTRITION, SURGERY, cardiology, CM, purewick in place, diabetic diet 1,500 fluid restriction.
[2024-06-18 16:22] LABS: POC Glucose,Bedside 249 (70-110)
[2024-06-18] MEDS: INSULIN GLARGINE 100 UNITS/ML 3ML FLEXPEN 65 UNIT SUBCUT (21:08)
[2024-06-18] MEDS: PANTOPRAZOLE 40MG TABLET 40 MG PO (21:11)
[2024-06-18] MEDS: SENNOSIDES 8.6MG/DOCUSATE 50MG TABLET 2 TAB PO (21:11)
[2024-06-18] MEDS: ATORVASTATIN 10MG TABLET 10 MG PO (21:11)
[2024-06-18 21:27] LABS: POC Glucose,Bedside 333 (70-110)
[2024-06-19] VITALS (12 sets, daily range): BP systolic 100–154; BP diastolic 61–78; PULSE 60–96; RESP 16–20; TEMP 36.2–36.9; O2SAT 94–100
[2024-06-19] MEDS: CEFEPIME HCL 2 GM in 0.9 % SODIUM CHLORIDE 100 ML IV ×2 (01:40→10:50)
[2024-06-19] MEDS: HYDROCODONE/APAP 5/325 MG TABLET 2 TAB PO ×4 (01:46→22:37)
[2024-06-19] MEDS: LINEZOLID 600 MG/300 ML IV.SOLN 300 MG IV (03:51)
[2024-06-19 06:11] LABS: POC Glucose,Bedside 295 (70-110)
[2024-06-19] MEDS: humaLOG 100 UNITS/ML 10ML VIAL (SSI) SUBCUT ×4 (06:25→21:45)
--- NOTE | 2024-06-19 06:32 | PC.NURSE ---
Pt is alert and oriented x4 and tolerating RA well at this time. Pt has c/o back and leg pain this shift and was treated per JUN. Pt Bumex drip continues @ 10/hr. Pt has had multiple snacks and drinks despite education of diet and restrictions.
[2024-06-19] MEDS: LEVALBUTEROL 1.25MG/3ML NEB 1.25 MG IH ×5 (06:45→23:12)
[2024-06-19] MEDS: BUMETANIDE 10 MG in 0.9 % SODIUM CHLORIDE 60 ML IV ×2 (07:29→19:48)
[2024-06-19] MEDS: METOPROLOL SUCCINATE XL 100MG TABLET 100 MG PO ×2 (08:08→21:19)
[2024-06-19] MEDS: GABAPENTIN 300MG CAPSULE 600 MG PO (08:08)
[2024-06-19] MEDS: ASPIRIN EC 81MG TABLET 81 MG PO (08:08)
[2024-06-19] MEDS: APIXABAN 5MG TABLET 5 MG PO ×2 (08:09→21:18)
[2024-06-19] MEDS: dilTIAZem HCL 180MG CAP.ER.24H 360 MG PO (08:09)
[2024-06-19] MEDS: IRBESARTAN 75MG TABLET 37.5 MG PO (08:09)
[2024-06-19] MEDS: METHOCARBAMOL 500MG TABLET 500 MG PO ×3 (08:09→21:18)
[2024-06-19] MEDS: SENNOSIDES 8.6MG/DOCUSATE 50MG TABLET 2 TAB PO ×2 (08:10→21:19)
[2024-06-19] MEDS: MUPIROCIN 2% OINTMENT 22GM TUBE TP ×2 (08:11→21:19)
[2024-06-19] MEDS: SPIRONOLACTONE 25MG TABLET 50 MG PO ×2 (08:12→16:21)
[2024-06-19] MEDS: INSULIN GLARGINE 100 UNITS/ML 3ML FLEXPEN 30 UNIT SUBCUT (08:19)
[2024-06-19 08:44] LABS: POC Glucose,Bedside 291 (70-110)
--- NOTE | 2024-06-19 09:24 | P.PN_ITS ---
Subjective Patient reports: no new complaints Narrative: Feels a little better today . He states that his dressing changes are going fine . Exam Data for Last 24 hours Vital signs and Labs for Last 24 Hours: Temp Pulse Resp BP Pulse Ox O2 Del Method O2 Flow Rate 97.9 F 94 H 17 154/72 H 95 Room Air 1 06/19/24 08:00 06/19/24 08:00 06/19/24 08:00 06/19/24 08:00 06/19/24 08:00 06/19/24 08:00 06/18/24 06:59 Laboratory Results - last 24 hr 06/18/24 11:01: POC Glucose 348 H* 06/18/24 11:35: WBC 8.9 D, RBC 3.73 L, Hgb 9.0 L, Hct 29.2 L, MCV 78.3 L, MCH 24.1 L, MCHC 30.8 L, RDW 17.5, Plt Count 313, MPV 9.5, Neut % (Auto) 78.3, Lymph % (Auto) 9.5 L, [place] % (Auto) 7.1, Eos % (Auto) 3.4, Baso % (Auto) 0.2, Neut # (Auto) 7.0, Lymph # (Auto) 0.9, [place] # (Auto) 0.6, Eos # (Auto) 0.3, Baso # (Auto) 0.0, Sodium 131 L, Potassium 3.8, Chloride 93 L, Carbon Dioxide 32 H, Anion Gap 9.8, BUN 20, Creatinine 1.00, Estimated Creat Clear 92, Estimated GFR 76, Est GFR ( Amer) 92, Glucose 318 H, Calcium 8.0 L, Magnesium 1.6, Total Bilirubin 0.3, AST 32, ALT 32, Alkaline Phosphatase 181 H, Total Protein 6.4, Albumin 3.4 L, Globulin 3.0, Albumin/Globulin Ratio 1.1 06/18/24 16:14: POC Glucose 249 H 06/18/24 21:06: POC Glucose 333 H* 06/19/24 05:59: POC Glucose 295 H 06/19/24 08:17: POC Glucose 291 H I & O for Last 24 hours: Intake & Output 06/16/24 06/17/24 06/18/24 06/19/24 11:59 11:59 11:59 12:59 Intake Total 759.583 / 472.341 2636 / 1897 1287 / 1287 Output Total 4050 / 4050 4450 / 4450 3825 / 3825 Balance -3290.417 / -3290.417 -2553 / -2553 -2538 / -2538 Weight 449 lb 11.888 oz 449 lb 11.888 oz Microbiology Reports for the Last 24 Hours: Microbiology 06/16/24 14:35 Buttock Gram Stain - Final 06/16/24 14:35 Buttock Wound Culture - Final Providencia rettgeri Globicatella sanguinis 06/16/24 12:57 Blood Blood Culture - Final Strep agalactiae - (group b) 06/17/24 07:50 Blood Blood Culture - Preliminary NO GROWTH AFTER 48 HOURS 06/17/24 07:50 Blood Blood Culture - Preliminary NO GROWTH AFTER 48 HOURS 06/16/24 12:55 Blood Blood Culture - Preliminary 06/17/24 05:00 Buttock Gram Stain - Final 06/17/24 05:00 Buttock Wound Culture - Preliminary 06/17/24 05:00 Leg,Left Gram Stain - Final 06/17/24 05:00 Leg,Left Wound Culture - Preliminary Constitutional Constitutional: no acute distress Progress Note: A&P Assessment and plan (1) Sacral wound: Status: Acute Assessment and plan: Continue overall management as per primary service Continue dry dressing changes Continue pressure relief to the degree possible
[2024-06-19 09:56] LABS: Albumin Level 3.7 g/dl (3.5-5.0); Chloride 95 mmol/L (98-107); Potassium 3.9 mmoL/L (3.5-5.1); Sodium 134 mmol/L (136-145)
[2024-06-19 09:59] LABS: Alanine Aminotransferase 31 U/L (12-78); Albumin/Globulin Ratio 1.2 (1.1-1.8); Alkaline Phosphatase 195 U/L (38-126); Anion Gap 8.9 mEq/L (5-15); Aspartate Amino Transferase 31 U/L (17-59); Bilirubin,Total 0.3 mg/dl (0.2-1.3); Blood Urea Nitrogen 23 mg/dl (9-20); Calcium 8.1 mg/dl (8.4-10.2); Carbon Dioxide 34 mmol/L (22.0-30.0); Creatinine Clearance Estimated 76 mL/min (50-200); Estimated Glomerular Filt Rate 61 ml/min (>60); GFR (African American) 74 ML/MIN (>60); Globulin 3.2 g/dL (1.3-3.2); Glucose 239 mg/dl (74-100); Total Protein,Serum 6.9 g/dl (6.3-8.2)
[2024-06-19 10:00] LABS: Magnesium 1.6 mg/dl (1.6-2.3)
[2024-06-19 10:02] LABS: Basophils % 0.3 % (0.1-2.0); Eosinophils # 0.5 K/mm3 (0.0-0.4); Eosinophils % 5.4 % (0.1-12.0); Hematocrit 31.8 % (42.0-52.0); Hemoglobin 9.8 g/dL (14.1-18.0); Lymphocytes # 1.2 K/mm3 (0.7-4.5); Lymphocytes % 13.1 % (10-50); Mean Corpuscular HGB Conc 30.8 g/dL (31.8-35.4); Mean Corpuscular Volume 77.9 fl (80-94); Mean Platelet Volume 9.6 fl (7.4-10.4); Monocytes # 0.7 K/mm3 (0.1-1.0); Neutrophils # 6.8 K/mm3 (1.8-7.8); Neutrophils % 72.6 % (37.0-80.0); Platelet Count 397 K/mm3 (142-424); Red Blood Count 4.08 M/mm3 (4.60-6.20); Red Cell Distribution Width 17.7 % (11.5-17.5); White Blood Count 9.3 K/mm3 (4.8-10.8)
[2024-06-19 10:05] LABS: C-Reactive Protein 181.3 mg/L (0-4)
--- NOTE | 2024-06-19 10:24 | P.PN_ITS ---
Subjective *Date: 06/19/24 *Time: 10:46 Interval history: Patient continues to complain of back pain and leg pain. Tolerating gabapentin 600 mg 3 times a day. States he has been taking this from his previous doctor in [place] at home. Does not feel it is giving much relief. Has taken 2 doses total of hydrocodone yesterday but 2 overnight. Give some temporary relief in pain. Improved oxygenation, will 1 L overnight, on room air during morning rounds. 1 bowel movement in the past 24 hours. No nausea or vomiting. Having good output. -7.6 L at least since admission Medical Exam Vital signs and Labs for Last 24 Hours: Vital Signs Temp Pulse Pulse Resp BP Pulse Ox O2 Del Method 06/19/24 09:00 Room Air 06/19/24 08:00 Room Air 06/19/24 08:00 97.9 F 94 H 17 154/72 H 95 Room Air 06/19/24 06:46 68 06/19/24 06:46 69 06/19/24 06:46 94 L Room Air 06/19/24 06:38 Room Air 06/19/24 05:00 Room Air 06/19/24 04:00 70 06/19/24 04:00 72 16 122/64 96 Room Air 06/19/24 03:00 Room Air 06/19/24 01:00 Room Air 06/19/24 00:35 72 06/19/24 00:34 76 06/19/24 00:00 98.4 F 87 18 134/61 100 Room Air 06/19/24 00:00 70 06/18/24 23:00 Room Air 06/18/24 21:00 Room Air 06/18/24 20:00 Room Air 06/18/24 20:00 97.7 F 91 H 18 136/71 96 Room Air 06/18/24 20:00 100 H 06/18/24 19:06 77 06/18/24 19:05 75 06/18/24 17:42 Room Air 06/18/24 16:17 Room Air 06/18/24 16:00 70 06/18/24 15:30 98.2 F 94 H 134/85 95 Room Air 06/18/24 14:41 Room Air 06/18/24 12:48 Room Air 06/18/24 12:00 120 H 06/18/24 11:48 98.5 F 74 15 121/43 L 94 L Room Air 06/18/24 11:17 72 06/18/24 11:17 71 06/18/24 11:17 94 L Room Air 06/18/24 10:19 Room Air Intake and Output 06/18/24 06/19/24 06/19/24 23:59 08:59 15:59 Intake Total 537 / 1687 450 / 450 Output Total 525 / 4875 2600 / 3300 700 / 3300 Balance 12 / 3188 -2150 / -2850 -700 / -2850 Intake: Intake, Oral Amount 240 / 780 300 / 300 Intake, Total IV Amount 297 / 907 150 / 150 Bumetanide 10 mg In 0.9 % 100 / 210 50 / 50 Sodium Chloride 60 ml @ 10 mls/ hr IV .Q10H [facility] Rx#:[id number] Cefepime HCl 2 gm In 0.9 % 100 / 200 Sodium Chloride 100 ml @ 200 mls/hr IV Q8H [facility] Rx#:[id number] Output: Output, Urine Amount 525 / 4875 2600 / 3300 700 / 3300 Other: Number of Unmeasured Voids 0 0 Number of Bowel Movements 1 1 Laboratory Results - last 24 hr 06/18/24 11:01: POC Glucose 348 H* 06/18/24 11:35: WBC 8.9 D, RBC 3.73 L, Hgb 9.0 L, Hct 29.2 L, MCV 78.3 L, MCH 24.1 L, MCHC 30.8 L, RDW 17.5, Plt Count 313, MPV 9.5, Neut % (Auto) 78.3, Lymph % (Auto) 9.5 L, [place] % (Auto) 7.1, Eos % (Auto) 3.4, Baso % (Auto) 0.2, Neut # (Auto) 7.0, Lymph # (Auto) 0.9, [place] # (Auto) 0.6, Eos # (Auto) 0.3, Baso # (Auto) 0.0, Sodium 131 L, Potassium 3.8, Chloride 93 L, Carbon Dioxide 32 H, Anion Gap 9.8, BUN 20, Creatinine 1.00, Estimated Creat Clear 92, Estimated GFR 76, Est GFR ( Amer) 92, Glucose 318 H, Calcium 8.0 L, Magnesium 1.6, Total Bilirubin 0.3, AST 32, ALT 32, Alkaline Phosphatase 181 H, Total Protein 6.4, Albumin 3.4 L, Globulin 3.0, Albumin/Globulin Ratio 1.1 06/18/24 16:14: POC Glucose 249 H 06/18/24 21:06: POC Glucose 333 H* 06/19/24 05:59: POC Glucose 295 H 06/19/24 08:17: POC Glucose 291 H 06/19/24 09:32: WBC 9.3, RBC 4.08 L, Hgb 9.8 L, Hct 31.8 L, MCV 77.9 L, MCH 24.0 L, MCHC 30.8 L, RDW 17.7 H, Plt Count 397 D, MPV 9.6, Neut % (Auto) 72.6, Lymph % (Auto) 13.1, [place] % (Auto) 7.0, Eos % (Auto) 5.4, Baso % (Auto) 0.3, Neut # (Auto) 6.8, Lymph # (Auto) 1.2, [place] # (Auto) 0.7, Eos # (Auto) 0.5 H, Baso # (Auto) 0.0, Sodium 134 L, Potassium 3.9, Chloride 95 L, Carbon Dioxide 34 H, Anion Gap 8.9, BUN 23 H, Creatinine 1.20, Estimated Creat Clear 76, Estimated GFR 61, Est GFR ( Amer) 74, Glucose 239 H D, Calcium 8.1 L, Magnesium 1.6, Total Bilirubin 0.3, AST 31, ALT 31, Alkaline Phosphatase 195 H, C-Reactive Protein 181.3 H, Total Protein 6.9, Albumin 3.7, Globulin 3.2, Albumin/Globulin Ratio 1.2 I & O for Labs for Last 24 Hours: Intake & Output 06/16/24 06/17/24 06/18/24 06/20/24 23:59 23:59 23:59 00:59 Intake Total 60 / 60 2096.583 / 2156.583 1337 / 1687 450 / 450 Output Total 400 / 400 5950 / 5950 2675 / 4875 3300 / 3300 Balance -340 / -340 -3853.417 / -3793.417 -1338 / -3188 -2850 / -2850 Weight 204.117 kg 204 kg 204 kg Microbiology Reports for the Last 24 Hours: Microbiology 06/16/24 14:35 Buttock Gram Stain - Final 06/16/24 14:35 Buttock Wound Culture - Final Providencia rettgeri Globicatella sanguinis 06/16/24 12:57 Blood Blood Culture - Final Strep agalactiae - (group b) 06/17/24 07:50 Blood Blood Culture - Preliminary NO GROWTH AFTER 48 HOURS 06/17/24 07:50 Blood Blood Culture - Preliminary NO GROWTH AFTER 48 HOURS 06/16/24 12:55 Blood Blood Culture - Preliminary 06/17/24 05:00 Buttock Gram Stain - Final 06/17/24 05:00 Buttock Wound Culture - Preliminary 06/17/24 05:00 Leg,Left Gram Stain - Final 06/17/24 05:00 Leg,Left Wound Culture - Preliminary Constitutional: Present no acute distress, morbidly obese, chronically ill appearing and cooperative Head: Present atraumatic and normocephalic ENT: Present normal exam Respiratory: Present distant breath sounds and normal respiratory effort; Absent accessory muscle use, respiratory distress, stridor, wheezes or crackles Cardiac: Present Reg Rate and Rhythm Comment:: Irregularly irregular, tachycardic GI: Present soft, distention and normal bowel sounds; Absent tenderness Rectal (male): Present normal inspection Comment:: Unable to find penis due to prominent suprapubic fat pad. Severely retracted. Extremities: Present full ROM, tenderness and edema (4+ to lower abdomen) Comment:: Erythema bilateral legs improving, still has significant stasis dermatitis in lower extremities. Skin: Present erythema and wounds Comment:: Wounds in perineal region as mentioned above. More dry today. No weeping or draining today. Weeping on lower legs however. Numerous scabbed lesions on torso and arms Neuro: Present Grossly Intact, alert, awake, oriented x 3 and moves all extremities Assessment and Plan *Assessment and plan (1) Acute on chronic heart failure with preserved ejection fraction (HFpEF): Status: Acute Category: Medical Code(s): I50.33 - Acute on chronic diastolic (congestive) heart failure (2) Bacteremia due to group B Streptococcus: Status: Acute Category: Medical Code(s): R78.81 - Bacteremia; B95.1 - Streptococcus, group B, as the cause of diseases classified elsewhere (3) Morbid obesity with BMI of 50.0-59.9, adult: Status: Acute Category: Medical Code(s): E66.01 - Morbid (severe) obesity due to excess calories; Z68.43 - Body mass index [BMI] 50.0-59.9, adult (4) Volume overload: Status: Acute Qualifiers: Hypervolemia type: unspecified Qualified Code(s): E87.70 - Fluid overload, unspecified Category: Medical Code(s): E87.70 - Fluid overload, unspecified (5) Venous stasis ulcer of both lower extremities without varicose veins: Status: Acute Category: Medical Code(s): I87.2 - Venous insufficiency (chronic) (peripheral); L97.919 - Non-pressure chronic ulcer of unspecified part of right lower leg with unspecified severity; L97.929 - Non-pressure chronic ulcer of unspecified part of left lower leg with unspecified severity (6) Cellulitis of left lower extremity: Status: Acute Category: Medical Code(s): L03.116 - Cellulitis of left lower limb (7) Microcytic anemia: Status: Acute Category: Medical Code(s): D50.9 - Iron deficiency anemia, unspecified (8) Adult failure to thrive: Status: Acute Category: Medical Code(s): R62.7 - Adult failure to thrive (9) LORI (obstructive sleep apnea): Status: Acute Category: Medical Code(s): G47.33 - Obstructive sleep apnea (adult) (pediatric) (10) Diabetes mellitus: Status: Acute Qualifiers: Diabetes mellitus complication status: with hyperglycemia Diabetes mellitus detention insulin use: without detention use Diabetes mellitus type: type 2 Qualified Code(s): E11.65 - Type 2 diabetes mellitus with hyperglycemia Category: Medical Code(s): E11.9 - Type 2 diabetes mellitus without complications (11) Sacral wound: Status: Acute Qualifiers: Encounter type: initial encounter Qualified Code(s): S31.000A - Unspecified open wound of lower back and pelvis without penetration into retroperitoneum, initial encounter Category: Medical Code(s): S31.000A - Unspecified open wound of lower back and pelvis without penetration into retroperitoneum, initial encounter Plan 63-year-old male with morbid obesity, acute on chronic HFpEF, volume overload, cellulitis. Discussed case with ER physician, after much discussion and evaluation of patient, decision made to admit for acute on chronic conditions, IV antibiotics, aggressive diuresis, and evaluation by therapy for possible placement. Patient's blood cultures came back positive overnight. Doing better over the past 24 hours. Responding to diuresis. Cardiology and surgery assisting with care and management. Continues to require patient management. Tolerating Bumex drip. On oral rate controlling meds. Problems addressed as follows: Acute on Chronic HFpEF A-fib with RVR Hypertension -Cardiology assisting with care. Will continue Bumex drip 1 mg/h, -7.6 L since admission, -2.5 L in the past 24 hours. Continue to monitor close output. Does not include output that has spilled in bed which has been significant. Legs appearing better. Patient reports less swelling in his legs. -Continue spironolactone increased to 50 mg BIDL. Continue irbesartan as formulary conversion for home valsartan at 37-1/2 mg daily -Continue oral diltiazem 360 mg daily and metoprolol succinate 100 mg twice da doretha - Eliquis 5 mg twice daily. -Continue aspirin 81 mg daily for PAD. -Echo obtained, formal read still pending. Preliminary appears to show preserved EF with diastolic dysfunction Diabetes: - A1c 9.9. Continue high intensity sliding scale insulin with fingersticks ACHS. Morning glucose slightly improved to 239, continue 65 units Lantus nightly and 30 units of Lantus in the morning. -Received at least 43 units short acting insulin yesterday - diabetic diet of 1800 jone. -Cardiology recommended considering initiation of Jardiance for diabetes and heart failure as above; in light of patient's breakdown of skin in his groin however, concerned that SGLT2 would drastically increase his risk for Marilin's and will hold on initiating at this time. cellulitis Group B strep bacteremia -White count normal at 9.3, CRP improved to 181, hemoglobin 9.8. - Blood and wound cultures with group B strep and providencia, Sensitive to cephalosporins and vancomycin. -Given sensitivities, will discontinue Zyvox. Transition cefepime to ceftriaxone 2 g twice daily. - Repeat CBC, CMP, ESR and CRP ordered for the morning - Wound care assisting with ulcerations on legs. Erythema somewhat better in left lower leg - Mupirocin for excoriations on torso - If wounds on foot worsen, will consider podiatry consult next week when she is back in the hospital. -Continue dry dressings in perineal region. No plan for intervention at this time. Discussed case with surgery, continue wound management as stated. Kidney function appears normal at this time with BUN of 23, creatinine 1.2. Monitor closely with aggressive diuresis. Potassium 3.9, magnesium 1.6. Microcytic anemia: Hemoglobin 9.8 today, iron studies show low levels. Status post 1 dose Venofer 200 mg IV, Transfusion threshold hemoglobin less than 7 LORI: Consider oxygen at night versus CPAP after discussion with patient about his home regimen. On room air during the day for goal sats greater 90%. Morbid obesity complicates all aspects of his care. PT and OT consulted along with social work to assist with dispo planning in next site of care; PT evaluated and states patient is independently mobile. Safe to discharge home when medically stable. Full code eliquis 5mg BID Diabetic diet
[2024-06-19 11:03] LABS: POC Glucose,Bedside 274 (70-110)
[2024-06-19 11:10] LABS: Erythrocyte Sedimentation Rate 91 mm/hr (0-20)
[2024-06-19] MEDS: GABAPENTIN 300MG CAPSULE 900 MG PO ×2 (13:26→21:18)
[2024-06-19] MEDS: MAGNESIUM SULFATE IN WATER 2 GM/50 ML PIGGYBACK IV ×2 (13:40→15:14)
--- NOTE | 2024-06-19 14:14 | PC.NURSE ---
pt is a/o x4. has been on RA this shift, tolerating well above 95%. patient has ambulated via walker to bathroom several times to have BMs. patient has c/o lower back and leg pain, treated per JUN. electrolyte protocol in place. currently sitting up in chair. glucose levels treated per sliding scale insulin.
[2024-06-19 16:49] LABS: POC Glucose,Bedside 507 (70-110)
--- NOTE | 2024-06-19 17:32 | PC.NURSE ---
blood glucose level at 1630 was 507, MD notified, new orders received. also notified of patient intake being 1800 mls.
[2024-06-19 17:45] LABS: Glucose,Random 420 mg/dL (74-100)
[2024-06-19] MEDS: CEFTRIAXONE SODIUM 2 GM in 0.9 % SODIUM CHLORIDE 100 ML IV (21:18)
[2024-06-19] MEDS: ATORVASTATIN 10MG TABLET 10 MG PO (21:18)
[2024-06-19] MEDS: PANTOPRAZOLE 40MG TABLET 40 MG PO (21:19)
[2024-06-19] MEDS: INSULIN GLARGINE 100 UNITS/ML 3ML FLEXPEN 65 UNIT SUBCUT (21:45)
[2024-06-19 21:46] LABS: POC Glucose,Bedside 233 (70-110)
[2024-06-20] VITALS (13 sets, daily range): BP systolic 105–148; BP diastolic 47–77; PULSE 60–102; RESP 16–22; TEMP 36.6–37; O2SAT 94–99
--- NOTE | 2024-06-20 05:09 | PC.NURSE ---
Patient is alert and oriented x4. He was observed to be awake for the majority of the night. Bumex drip has been continuing to infuse at 10 mL/hr. Scheduled medications were administered as appropriately per MAR. Patient has been quite noncompliant with fluid restriction diet despite offered education and reiterating by staff about its significance. A male purewick has remained in place (changed once) this shift with adequate, frequent urine output; urine output has been measured and documented accordingly. He has complained of significant pain in his bilateral lower extremities and back this shift. [place] was given once per MAR with some reported relief. Extremities have been elevated with pillows. Patient has multiple wounds that have been assessed, and placements can be viewed in the patient's nursing biophysical. Some wounds were observed to be seeping, other wounds were observed to be closed. Patient's buttock wound was dressed with a foam flower pad dressing this shift. Patient's bilateral lower extremities are very edematous with redness from the [place] down. Patient has been ambulating fairly well with standby assistance + walker to the bathroom. He has had a couple large, formed bowel movements this shift. He has been up to the chair in the evening and was later transferred back to bed for resting. A bed bath was given this shift. Mupirocin cream was applied to lesions on the patient's torso. ACHS glucose checks performed. Upon auscultation of his lungs, expiratory wheezing and diminished lung sounds were heard. Auscultation of his heart and bowels were within normal findings. Oxygen saturations > 90% on room air. Heart rate has been controlled. At this time, the patient is resting upright in bed without any other complaints. No new needs thus far. Call light within reach.
[2024-06-20 06:02] LABS: POC Glucose,Bedside 243 (70-110)
[2024-06-20] MEDS: humaLOG 100 UNITS/ML 10ML VIAL (SSI) SUBCUT ×4 (06:21→21:07)
[2024-06-20] MEDS: LEVALBUTEROL 1.25MG/3ML NEB 1.25 MG IH ×3 (06:38→18:13)
[2024-06-20 07:18] LABS: Basophils # 0.1 K/mm3 (0-0.2); Basophils % 0.4 % (0.1-2.0); Eosinophils # 0.5 K/mm3 (0.0-0.4); Eosinophils % 4.4 % (0.1-12.0); Hematocrit 34.2 % (42.0-52.0); Hemoglobin 10.5 g/dL (14.1-18.0); Lymphocytes # 1.9 K/mm3 (0.7-4.5); Lymphocytes % 15.8 % (10-50); Mean Corpuscular HGB Conc 30.7 g/dL (31.8-35.4); Mean Corpuscular Hemoglobin 24.6 pg (27.0-31.2); Mean Corpuscular Volume 80.3 fl (80-94); Mean Platelet Volume 9.4 fl (7.4-10.4); Monocytes # 0.7 K/mm3 (0.1-1.0); Monocytes % 6.2 % (1.7-9.3); Neutrophils # 8.6 K/mm3 (1.8-7.8); Neutrophils % 71.5 % (37.0-80.0); Platelet Count 435 K/mm3 (142-424); Red Blood Count 4.26 M/mm3 (4.60-6.20); Red Cell Distribution Width 17.9 % (11.5-17.5)
[2024-06-20 07:25] LABS: Alanine Aminotransferase 28 U/L (12-78); Albumin Level 3.9 g/dl (3.5-5.0); Albumin/Globulin Ratio 1.1 (1.1-1.8); Alkaline Phosphatase 166 U/L (38-126); Anion Gap 16.4 mEq/L (5-15); Aspartate Amino Transferase 34 U/L (17-59); Bilirubin,Total 0.3 mg/dl (0.2-1.3); Blood Urea Nitrogen 21 mg/dl (9-20); Calcium 8.4 mg/dl (8.4-10.2); Carbon Dioxide 31 mmol/L (22.0-30.0); Chloride 98 mmol/L (98-107); Creatinine Clearance Estimated 83 mL/min (50-200); Estimated Glomerular Filt Rate 68 ml/min (>60); GFR (African American) 82 ML/MIN (>60); Globulin 3.4 g/dL (1.3-3.2); Glucose 223 mg/dl (74-100); Potassium 4.4 mmoL/L (3.5-5.1); Sodium 141 mmol/L (136-145); Total Protein,Serum 7.3 g/dl (6.3-8.2)
--- NOTE | 2024-06-20 07:26 | P.PN_ITS ---
Subjective Patient reports: no new complaints Narrative: The patient states he feels better today . He is hopeful that he will be discharged home soon. He states that the nurses are keeping the dressing changes going and keeping everything dry . Exam Data for Last 24 hours Vital signs and Labs for Last 24 Hours: Temp Pulse Resp BP Pulse Ox O2 Del Method O2 Flow Rate 98.0 F 102 H 16 148/77 H 94 L Room Air 1 06/20/24 04:00 06/20/24 06:38 06/20/24 04:00 06/20/24 04:00 06/20/24 06:38 06/20/24 07:00 06/18/24 06:59 Laboratory Results - last 24 hr 06/19/24 08:17: POC Glucose 291 H 06/19/24 09:32: WBC 9.3, RBC 4.08 L, Hgb 9.8 L, Hct 31.8 L, MCV 77.9 L, MCH 24.0 L, MCHC 30.8 L, RDW 17.7 H, Plt Count 397 D, MPV 9.6, Neut % (Auto) 72.6, Lymph % (Auto) 13.1, [place] % (Auto) 7.0, Eos % (Auto) 5.4, Baso % (Auto) 0.3, Neut # (Auto) 6.8, Lymph # (Auto) 1.2, [place] # (Auto) 0.7, Eos # (Auto) 0.5 H, Baso # (Auto) 0.0, ESR 91 H, Sodium 134 L, Potassium 3.9, Chloride 95 L, Carbon Dioxide 34 H, Anion Gap 8.9, BUN 23 H, Creatinine 1.20, Estimated Creat Clear 76, Estimated GFR 61, Est GFR ( Amer) 74, Glucose 239 H D, Calcium 8.1 L, Magnesium 1.6, Total Bilirubin 0.3, AST 31, ALT 31, Alkaline Phosphatase 195 H, C-Reactive Protein 181.3 H, Total Protein 6.9, Albumin 3.7, Globulin 3.2, Albumin/Globulin Ratio 1.2 06/19/24 10:54: POC Glucose 274 H 06/19/24 16:26: POC Glucose 507 H* 06/19/24 17:20: Random Glucose 420 H* 06/19/24 21:32: POC Glucose 233 H 06/20/24 05:51: POC Glucose 243 H I & O for Last 24 hours: Intake & Output 06/17/24 06/18/24 06/19/24 06/20/24 11:59 11:59 12:59 11:59 Intake Total 759.583 / 335.132 0707 / 1897 2229 / 2229 1588 / 1588 Output Total 4050 / 4050 4450 / 4450 3825 / 3825 2300 / 2300 Balance -3290.417 / -3290.417 -2553 / -2553 -1596 / -1596 -712 / -712 Weight 449 lb 11.888 oz 449 lb 11.888 oz Microbiology Reports for the Last 24 Hours: Microbiology 06/17/24 05:00 Buttock Gram Stain - Final 06/17/24 05:00 Buttock Wound Culture - Preliminary Gram Negative Rods 06/17/24 05:00 Anus CRE Surveillance Culture - Final 06/16/24 12:55 Blood Blood Culture - Preliminary 06/16/24 14:35 Buttock Gram Stain - Final 06/16/24 14:35 Buttock Wound Culture - Final Providencia rettgeri Globicatella sanguinis 06/16/24 12:57 Blood Blood Culture - Final Strep agalactiae - (group b) 06/17/24 07:50 Blood Blood Culture - Preliminary NO GROWTH AFTER 48 HOURS 06/17/24 07:50 Blood Blood Culture - Preliminary NO GROWTH AFTER 48 HOURS Constitutional Constitutional: no acute distress Progress Note: A&P Assessment and plan (1) Sacral wound: Status: Acute Assessment and plan: Continue overall management as per primary service Continue dry dressing changes Continue pressure relief to the degree possible
--- NOTE | 2024-06-20 09:10 | PC.NURSE ---
Pt wounds: bilateral lower extremities reddened and edematous. Bilateral feet wrapped and dry and intact. Mupirocin to be applied to upper extremity wounds. Patient declines request to stand and allow me to assess his buttocks wounds.
[2024-06-20] MEDS: MUPIROCIN 2% OINTMENT 22GM TUBE TP ×3 (09:16→21:08)
[2024-06-20] MEDS: IRBESARTAN 75MG TABLET 37.5 MG PO (09:17)
[2024-06-20] MEDS: METOPROLOL SUCCINATE XL 100MG TABLET 100 MG PO ×2 (09:17→21:08)
[2024-06-20] MEDS: dilTIAZem HCL 180MG CAP.ER.24H 360 MG PO (09:18)
[2024-06-20] MEDS: METHOCARBAMOL 500MG TABLET 500 MG PO ×3 (09:18→21:08)
[2024-06-20] MEDS: APIXABAN 5MG TABLET 5 MG PO ×2 (09:18→21:06)
[2024-06-20] MEDS: SPIRONOLACTONE 25MG TABLET 50 MG PO ×2 (09:18→16:19)
[2024-06-20] MEDS: GABAPENTIN 300MG CAPSULE 900 MG PO ×3 (09:19→21:07)
[2024-06-20] MEDS: ASPIRIN EC 81MG TABLET 81 MG PO (09:20)
[2024-06-20] MEDS: CEFTRIAXONE SODIUM 2 GM in 0.9 % SODIUM CHLORIDE 100 ML IV ×2 (09:21→21:06)
[2024-06-20] MEDS: BUMETANIDE 1MG/4ML VIAL 2 MG IV (09:21)
[2024-06-20] MEDS: INSULIN GLARGINE 100 UNITS/ML 3ML FLEXPEN 60 UNIT SUBCUT ×2 (09:22→21:07)
[2024-06-20] MEDS: HYDROCODONE/APAP 5/325 MG TABLET 2 TAB PO ×4 (09:30→23:04)
--- NOTE | 2024-06-20 09:54 | SW/DCPLANNER ---
Per PT/OT no needs at this time.
--- NOTE | 2024-06-20 10:38 | EXP.CARD.PN ---
Subjective Subjective Date: 06/20/24 Time: 08:30 Principal diagnosis: Volume overload, A-fib RVR Interval history: Patient remained on Bumex drip over the weekend and was transitioned to Bumex 2 mg p.o. twice daily today. Aldactone has been increased to 50 mg p.o. twice daily. Patient has diuresed over 8 L and reports shortness of breath and LE edema have improved. This morning patient is sitting in bedside chair complaining of low back pain and leg pain. Denies chest pain. Morning labs reviewed. Exam Data for Last 24 hours Vital signs and Labs for Last 24 Hours: Temp Pulse Resp BP Pulse Ox O2 Del Method O2 Flow Rate 98.2 F 100 H 22 111/47 L 94 L Room Air 1 06/20/24 07:36 06/20/24 08:00 06/20/24 07:36 06/20/24 07:36 06/20/24 07:36 06/20/24 09:20 06/18/24 06:59 Laboratory Results - last 24 hr 06/19/24 09:32: ESR 91 H 06/19/24 10:54: POC Glucose 274 H 06/19/24 16:26: POC Glucose 507 H* 06/19/24 17:20: Random Glucose 420 H* 06/19/24 21:32: POC Glucose 233 H 06/20/24 05:51: POC Glucose 243 H 06/20/24 06:53: WBC 12.0 H D, RBC 4.26 L, Hgb 10.5 L, Hct 34.2 L, MCV 80.3, MCH 24.6 L, MCHC 30.7 L, RDW 17.9 H, Plt Count 435 H, MPV 9.4, Neut % (Auto) 71.5, Lymph % (Auto) 15.8, [place] % (Auto) 6.2, Eos % (Auto) 4.4, Baso % (Auto) 0.4, Neut # (Auto) 8.6 H, Lymph # (Auto) 1.9, [place] # (Auto) 0.7, Eos # (Auto) 0.5 H, Baso # (Auto) 0.1, Sodium 141, Potassium 4.4, Chloride 98, Carbon Dioxide 31 H, Anion Gap 16.4 H, BUN 21 H, Creatinine 1.10, Estimated Creat Clear 83, Estimated GFR 68, Est GFR ( Amer) 82, Glucose 223 H, Calcium 8.4, Magnesium 2.0 D, Total Bilirubin 0.3, AST 34, ALT 28, Alkaline Phosphatase 166 H, Total Protein 7.3, Albumin 3.9, Globulin 3.4 H, Albumin/Globulin Ratio 1.1 I & O for Last 24 hours: Intake & Output 06/17/24 06/18/24 06/20/24 06/20/24 23:59 23:59 00:59 23:59 Intake Total 2096.583 / 2156.583 1337 / 1687 2272 / 2626 708 / 708 Output Total 5950 / 5950 2675 / 4875 4400 / 4400 1200 / 1200 Balance -3853.417 / -3793.417 -1338 / -3188 -2128 / -1774 -492 / -492 Weight 449 lb 11.888 oz 449 lb 11.888 oz Microbiology Reports for the Last 24 Hours: Microbiology 06/17/24 05:00 Leg,Left Gram Stain - Final 06/17/24 05:00 Leg,Left Wound Culture - Preliminary Gram Positive Cocci Gram Positive Cocci#2 06/17/24 05:00 Buttock Gram Stain - Final 06/17/24 05:00 Buttock Wound Culture - Final Proteus mirabilis 06/17/24 05:00 Anus CRE Surveillance Culture - Final 06/16/24 12:55 Blood Blood Culture - Preliminary 06/16/24 14:35 Buttock Gram Stain - Final 06/16/24 14:35 Buttock Wound Culture - Final Providencia rettgeri Globicatella sanguinis 06/16/24 12:57 Blood Blood Culture - Final Strep agalactiae - (group b) 06/17/24 07:50 Blood Blood Culture - Preliminary NO GROWTH AFTER 48 HOURS 06/17/24 07:50 Blood Blood Culture - Preliminary NO GROWTH AFTER 48 HOURS Constitutional Constitutional: no acute distress *Routine Respiratory Exam Respiratory: Present CTA bilaterally and symmetric chest movement *Routine Cardiovascular Exam Cardiovascular: Present Normal S1, Normal S2 and irregular rhythm Comments: A-fib noted *Routine Abdominal Exam Abdominal: Present soft and normoactive bowel sounds; Absent tenderness *Routine Extremities Exam Extremities: Present edema, full ROM and normal capillary refill *Routine Skin Exam Skin: Present intact, dry and warm Detailed Neck Exam: Thyroids Thyroid: Absent bruit Progress Note: A&P Assessment and plan (1) Sacral wound: Status: Acute (2) Atrial fibrillation: Status: Acute (3) Acute on chronic heart failure with preserved ejection fraction (HFpEF): Status: Acute Assessment and Plan Assessment and Plan for All Diagnoses:: Acute on Chronic HFpEF- NYHA III-IV Echo shows an estimated EF of 55% with increased LV wall thickness Patient was on Bumex drip over the weekend and has diuresed over 8 L Continue Bumex at increased rate of 2 mg/h and continue until creatinine increases A-fib RVR Currently rate controlled on diltiazem 360 mg p.o. daily and metoprolol succinate 100 mg p.o. twice daily Continue Eliquis 5 mg p.o. twice daily 06/20/2024 summary: Continue to diurese patient with Bumex drip, increase rate to 2 mg/h. Can continue until creatinine starts to increase. CV Meds: Bumex drip Aldactone 50 mg p.o. twice daily Irbesartan 37.5 mg p.o. daily Diltiazem 360 mg p.o. daily Metoprolol succinate 100 mg p.o. twice daily Eliquis 5 mg p.o. twice daily Aspirin 81 mg p.o. daily
[2024-06-20 11:36] LABS: POC Glucose,Bedside 239 (70-110)
--- NOTE | 2024-06-20 11:42 | SW/DCPLANNER ---
Addendum entered by Olga Maradiaga 06/20/24 14:22: Sent patients info to [facility], [facility], [facility]. Each one that i sent it to either was having staffing issues or they did not take patients Insurance. Talked to patient about coming back for outpatient unna boot changes and patient stated that he will get his nephew's girlfriend to change it. Prashanth BOYCE Business Database Analyst Original Note: Spoke with patient about home health. Patient stated that he has no preference. Faxed patients info to [facility]. Will update when i hear back if they can accept patient or not. Prashanth BOYCE Business Database Analyst
[2024-06-20] MEDS: BUMETANIDE 10 MG in 0.9 % SODIUM CHLORIDE 60 ML 20 MG IV ×2 (13:43→18:42)
--- NOTE | 2024-06-20 15:07 | EXP.ACUTE.PN ---
Subjective *Date: 06/20/24 *Time: 16:58 Interval history: Continues to diurese, -8 L since admission. Stable on room air during the day. 1 to 2 L at night due to suspected sleep apnea. No nausea or vomiting. Continues to have pain in back and legs. Acute on chronic. Leg pain burning likely related to edema and neuropathy. Getting some relief from hydrocodone and gabapentin. Patient ambulating to bathroom with assistance and walker. Cardiology evaluating today. Medical Exam Vital signs and Labs for Last 24 Hours: Vital Signs Temp Pulse Pulse Resp BP Pulse Ox O2 Del Method 06/20/24 12:50 Room Air 06/20/24 12:00 70 06/20/24 11:37 98.6 F 83 22 106/52 L 94 L Room Air 06/20/24 11:29 80 06/20/24 11:29 84 06/20/24 10:57 Room Air 06/20/24 09:20 Room Air 06/20/24 09:10 Room Air 06/20/24 08:00 100 H 06/20/24 07:36 98.2 F 88 22 111/47 L 94 L Room Air 06/20/24 07:00 Room Air 06/20/24 06:38 102 H 06/20/24 06:38 97 H 06/20/24 06:38 94 L Room Air 06/20/24 05:00 Room Air 06/20/24 04:00 98.0 F 64 16 148/77 H 99 Room Air 06/20/24 04:00 70 06/20/24 03:00 Room Air 06/20/24 02:58 77 06/20/24 01:00 Room Air 06/20/24 01:00 98.3 F 96 H 20 105/54 L 99 Room Air 06/20/24 00:00 76 06/20/24 00:00 85 06/19/24 23:00 Room Air 06/19/24 21:00 Room Air 06/19/24 20:00 96 H 20 99 Room Air 06/19/24 20:00 97.2 F L 84 18 130/75 97 Room Air 06/19/24 20:00 80 06/19/24 19:06 73 06/19/24 19:06 73 06/19/24 18:44 Room Air 06/19/24 17:00 Room Air 06/19/24 16:00 70 Intake and Output 06/19/24 06/20/24 06/20/24 23:59 07:59 15:59 Intake Total 880 / 2626 708 / 708 Output Total 1100 / 4400 1200 / 2100 900 / 2100 Balance -220 / -1774 -492 / -1392 -900 / -1392 Intake: Intake, Oral Amount 780 / 2376 708 / 708 Intake, Total IV Amount 100 / 250 Output: Output, Urine Amount 1100 / 4400 1200 / 2100 900 / 2100 Other: Number of Voids 0 Number of Unmeasured Voids 1 Number of Bowel Movements 1 1 1 Laboratory Results - last 24 hr 06/19/24 16:26: POC Glucose 507 H* 06/19/24 17:20: Random Glucose 420 H* 06/19/24 21:32: POC Glucose 233 H 06/20/24 05:51: POC Glucose 243 H 06/20/24 06:53: WBC 12.0 H D, RBC 4.26 L, Hgb 10.5 L, Hct 34.2 L, MCV 80.3, MCH 24.6 L, MCHC 30.7 L, RDW 17.9 H, Plt Count 435 H, MPV 9.4, Neut % (Auto) 71.5, Lymph % (Auto) 15.8, [place] % (Auto) 6.2, Eos % (Auto) 4.4, Baso % (Auto) 0.4, Neut # (Auto) 8.6 H, Lymph # (Auto) 1.9, [place] # (Auto) 0.7, Eos # (Auto) 0.5 H, Baso # (Auto) 0.1, Sodium 141, Potassium 4.4, Chloride 98, Carbon Dioxide 31 H, Anion Gap 16.4 H, BUN 21 H, Creatinine 1.10, Estimated Creat Clear 83, Estimated GFR 68, Est GFR ( Amer) 82, Glucose 223 H, Calcium 8.4, Magnesium 2.0 D, Total Bilirubin 0.3, AST 34, ALT 28, Alkaline Phosphatase 166 H, Total Protein 7.3, Albumin 3.9, Globulin 3.4 H, Albumin/Globulin Ratio 1.1 06/20/24 11:28: POC Glucose 239 H I & O for Labs for Last 24 Hours: Intake & Output 03/0706/18/24 06/20/24 06/20/24 23:59 23:59 00:59 23:59 Intake Total 2096.583 / 2156.583 1337 / 1687 2272 / 2626 708 / 708 Output Total 5950 / 5950 2675 / 4875 4400 / 4400 2099 / 2099 Balance -3853.417 / -3793.417 -1338 / -3188 -2128 / -1774 -1392 / -1392 Weight 204 kg 204 kg Microbiology Reports for the Last 24 Hours: Microbiology 06/17/24 05:00 Leg,Left Gram Stain - Final 06/17/24 05:00 Leg,Left Wound Culture - Preliminary Gram Positive Cocci Gram Positive Cocci#2 06/17/24 05:00 Buttock Gram Stain - Final 06/17/24 05:00 Buttock Wound Culture - Final Proteus mirabilis 06/17/24 05:00 Anus CRE Surveillance Culture - Final 06/16/24 12:55 Blood Blood Culture - Preliminary Constitutional: Present no acute distress, morbidly obese, chronically ill appearing and cooperative Head: Present atraumatic and normocephalic ENT: Present normal exam Respiratory: Present distant breath sounds and normal respiratory effort; Absent accessory muscle use, respiratory distress, stridor, wheezes or crackles Cardiac: Present Reg Rate and Rhythm Comment:: Irregularly irregular, tachycardic GI: Present soft, distention and normal bowel sounds; Absent tenderness Rectal (male): Present normal inspection Comment:: Unable to find penis due to prominent suprapubic fat pad. Severely retracted. Extremities: Present full ROM, tenderness and edema (4+ to lower abdomen) Comment:: Stasis changes bilateral lower extremities. Erythema on left thigh resolved Skin: Present erythema (Bilateral lower legs) and wounds Comment:: Numerous scabbed lesions on arms and torso Neuro: Present Grossly Intact, alert, awake, oriented x 3 and moves all extremities Assessment and Plan *Assessment and plan (1) Acute on chronic heart failure with preserved ejection fraction (HFpEF): Status: Acute Category: Medical Code(s): I50.33 - Acute on chronic diastolic (congestive) heart failure (2) Bacteremia due to group B Streptococcus: Status: Acute Category: Medical Code(s): R78.81 - Bacteremia; B95.1 - Streptococcus, group B, as the cause of diseases classified elsewhere (3) Morbid obesity with BMI of 50.0-59.9, adult: Status: Acute Category: Medical Code(s): E66.01 - Morbid (severe) obesity due to excess calories; Z68.43 - Body mass index [BMI] 50.0-59.9, adult (4) Volume overload: Status: Acute Qualifiers: Hypervolemia type: unspecified Qualified Code(s): E87.70 - Fluid overload, unspecified Category: Medical Code(s): E87.70 - Fluid overload, unspecified (5) Venous stasis ulcer of both lower extremities without varicose veins: Status: Acute Category: Medical Code(s): I87.2 - Venous insufficiency (chronic) (peripheral); L97.919 - Non-pressure chronic ulcer of unspecified part of right lower leg with unspecified severity; L97.929 - Non-pressure chronic ulcer of unspecified part of left lower leg with unspecified severity (6) Cellulitis of left lower extremity: Status: Acute Category: Medical Code(s): L03.116 - Cellulitis of left lower limb (7) Microcytic anemia: Status: Acute Category: Medical Code(s): D50.9 - Iron deficiency anemia, unspecified (8) Adult failure to thrive: Status: Acute Category: Medical Code(s): R62.7 - Adult failure to thrive (9) LORI (obstructive sleep apnea): Status: Acute Category: Medical Code(s): G47.33 - Obstructive sleep apnea (adult) (pediatric) (10) Diabetes mellitus: Status: Acute Qualifiers: Diabetes mellitus complication status: with hyperglycemia Diabetes mellitus long term acute care registered nurse insulin use: without long term acute care registered nurse use Diabetes mellitus type: type 2 Qualified Code(s): E11.65 - Type 2 diabetes mellitus with hyperglycemia Category: Medical Code(s): E11.9 - Type 2 diabetes mellitus without complications (11) Sacral wound: Status: Acute Qualifiers: Encounter type: initial encounter Qualified Code(s): S31.000A - Unspecified open wound of lower back and pelvis without penetration into retroperitoneum, initial encounter Category: Medical Code(s): S31.000A - Unspecified open wound of lower back and pelvis without penetration into retroperitoneum, initial encounter Plan 63-year-old male with morbid obesity, acute on chronic HFpEF, volume overload, cellulitis. Discussed case with ER physician, after much discussion and evaluation of patient, decision made to admit for acute on chronic conditions, IV antibiotics, aggressive diuresis, and evaluation by therapy for possible placement. Patient's blood cultures came back positive overnight. Doing better over the past 24 hours. Responding to diuresis. Cardiology and surgery assisting with care and management. Continues to require patient management. Increase Bumex drip today. On oral rate controlling meds. Problems addressed as follows: Acute on Chronic HFpEF A-fib with RVR Hypertension -Cardiology assisting with care. Recommend increasing Bumex to 2 mg/h. -8 L since admission. Monitor for improved diuresis. Kidney function remains normal with BUN 21, creatinine 1.1. -Continue spironolactone increased to 50 mg BIDL. Continue irbesartan as formulary conversion for home valsartan at 37.5mg daily -Continue oral diltiazem 360 mg daily and metoprolol succinate 100 mg twice daily - Eliquis 5 mg twice daily. -Continue aspirin 81 mg daily for PAD. -Echo obtained, formal read still pending. Preliminary appears to show preserved EF with diastolic dysfunction -Close monitoring of electrolytes with diuresis. Potassium 4.4, magnesium 2.0 Diabetes: - A1c 9.9. Continue high intensity sliding scale insulin with fingersticks ACHS. Morning glucose elevated to 33. Increase Lantus to 60 units twice daily. - Sl continue high intensity sliding scale with fingersticks ACHS - diabetic diet of 1800 jone. -Cardiology recommended considering initiation of Jardiance for diabetes and heart failure as above; in light of patient's breakdown of skin in his groin however, concerned that SGLT2 would drastically increase his risk for Marilin's and will hold on initiating at this time. cellulitis Group B strep bacteremia -White count normal at 12. Hemoglobin 10.5 - Blood and wound cultures with group B strep and providencia, Sensitive to cephalosporins and vancomycin. -Continue ceftriaxone 2 g twice daily. - Repeat CBC, CMP, ESR and CRP ordered for the morning - Wound care assisting with ulcerations on legs. Erythema somewhat better in left lower leg - Mupirocin for excoriations on torso - If wounds on foot worsen, will consider podiatry consult next week when she is back in the hospital. -Continue dry dressings in perineal region. No plan for intervention at this time. Discussed case with surgery, continue wound management as stated. Microcytic anemia: Hemoglobin 9.8 today, iron studies show low levels. Status post 1 dose Venofer 200 mg IV, Transfusion threshold hemoglobin less than 7 LORI: Consider oxygen at night versus CPAP after discussion with patient about his home regimen. On room air during the day for goal sats greater 90%. Morbid obesity complicates all aspects of his care. PT and OT consulted along with social work to assist with dispo planning in next site of care; PT evaluated and states patient is independently mobile. Safe to discharge home when medically stable. Needs referral to outpatient PT, OT, wound at discharge Full code eliquis 5mg BID Diabetic diet
--- NOTE | 2024-06-20 15:20 | PC.NURSE ---
Addendum entered by Aruna Dale 06/20/24 17:10: Patient noncompliant with calorie and fluid restrictions. Education provided regarding fluid overload and importance of fluid restrictions. Education provided regarding hyperglycemia and importance of observing diet restrictions Original Note: Patient alert and oriented. VSS. On room air. Up with 2 and FWW to BR for BM's. Voiding per purewick. [place] prn for pain. Bumex gtt and antibiotics administered per orders. Plan to continue diuresis and reevaluate in the morning.
[2024-06-20 16:37] LABS: POC Glucose,Bedside 214 (70-110)
[2024-06-20] MEDS: ATORVASTATIN 10MG TABLET 10 MG PO (21:06)
[2024-06-20] MEDS: PANTOPRAZOLE 40MG TABLET 40 MG PO (21:08)
[2024-06-20] MEDS: SENNOSIDES 8.6MG/DOCUSATE 50MG TABLET 2 TAB PO (21:09)
[2024-06-21] VITALS (7 sets, daily range): BP systolic 99–156; BP diastolic 59–71; PULSE 70–97; RESP 17–22; TEMP 36.4–37.1; O2SAT 95–98; BMI 56.0
[2024-06-21] MEDS: BUMETANIDE 10 MG in 0.9 % SODIUM CHLORIDE 60 ML 20 MG IV ×3 (00:12→12:39)
--- NOTE | 2024-06-21 04:18 | PC.NURSE ---
Pt A&OX4 and has tolerated room air. Lung sounds clear and bowel sounds active. 4+ edema noted to BLE. Bumex gtt going at 20ml/hr. Purewick in place with good output. He has complained of back and leg pain multiple times this shift and was medicated per JUN. He has ambulated to the bathroom with x1 assist. He has remained AFib on tele. No other complains at this time, call light within reach.
[2024-06-21] MEDS: humaLOG 100 UNITS/ML 10ML VIAL (SSI) 10 UNIT SUBCUT ×3 (05:42→16:43)
[2024-06-21] MEDS: humaLOG 100 UNITS/ML 10ML VIAL (SSI) SUBCUT ×3 (05:43→16:42)
[2024-06-21] MEDS: LEVALBUTEROL 1.25MG/3ML NEB 1.25 MG IH (06:16)
[2024-06-21] MEDS: HYDROCODONE/APAP 5/325 MG TABLET 2 TAB PO (06:22)
[2024-06-21] MEDS: BENZONATATE 100MG CAPSULE 200 MG PO (06:22)
[2024-06-21 06:42] LABS: POC Glucose,Bedside 230 (70-110)
[2024-06-21 06:42] LABS: POC Glucose,Bedside 499 (70-110)
--- NOTE | 2024-06-21 08:21 | P.PN_ITS ---
Subjective Narrative: He states that he had a rough night with coughing . This morning he feels somewhat short of air. When asked about dressing changes he is uncertain. Exam Data for Last 24 hours Vital signs and Labs for Last 24 Hours: Temp Pulse Resp BP Pulse Ox O2 Del Method O2 Flow Rate 97.5 F L 78 19 99/71 L 95 Room Air 1 06/21/24 07:36 06/21/24 07:36 06/21/24 07:36 06/21/24 07:36 06/21/24 07:36 06/21/24 07:36 06/18/24 06:59 Laboratory Results - last 24 hr 06/20/24 11:28: POC Glucose 239 H 06/20/24 16:17: POC Glucose 214 H 06/20/24 20:54: POC Glucose 499 H* 06/21/24 05:41: POC Glucose 230 H I & O for Last 24 hours: Intake & Output 06/18/24 06/19/24 06/20/24 06/21/24 11:59 12:59 11:59 11:59 Intake Total 1897 / 1897 2229 / 2229 1588 / 1588 3094.667 / 3094.667 Output Total 4450 / 4450 3825 / 3825 2300 / 2300 5300 / 5300 Balance -2553 / -2553 -1596 / -1596 -712 / -712 -2205.333 / -2205.333 Weight 449 lb 11.888 oz 450 lb 6.47 oz Microbiology Reports for the Last 24 Hours: Microbiology 06/17/24 07:50 Blood Blood Culture - Preliminary NO GROWTH AFTER 4 DAYS 06/17/24 07:50 Blood Blood Culture - Preliminary NO GROWTH AFTER 4 DAYS 06/17/24 05:00 Leg,Left Gram Stain - Final 06/17/24 05:00 Leg,Left Wound Culture - Preliminary Gram Positive Cocci Gram Positive Cocci#2 06/17/24 05:00 Buttock Gram Stain - Final 06/17/24 05:00 Buttock Wound Culture - Final Proteus mirabilis Constitutional Comments: Exam deferred (patient currently being evaluated by furniture shampooer for a.m. lab draw) Progress Note: A&P Assessment and plan (1) Sacral wound: Status: Acute Assessment and plan: Continue dry dressing changes
[2024-06-21 08:51] LABS: Basophils # 0.1 K/mm3 (0-0.2); Basophils % 0.4 % (0.1-2.0); Eosinophils # 0.6 K/mm3 (0.0-0.4); Eosinophils % 4.7 % (0.1-12.0); Hematocrit 36.6 % (42.0-52.0); Hemoglobin 10.9 g/dL (14.1-18.0); Lymphocytes # 2.2 K/mm3 (0.7-4.5); Lymphocytes % 18.4 % (10-50); Mean Corpuscular HGB Conc 29.8 g/dL (31.8-35.4); Mean Corpuscular Hemoglobin 23.6 pg (27.0-31.2); Mean Corpuscular Volume 79.4 fl (80-94); Mean Platelet Volume 8.8 fl (7.4-10.4); Monocytes # 0.7 K/mm3 (0.1-1.0); Monocytes % 5.4 % (1.7-9.3); Neutrophils # 8.5 K/mm3 (1.8-7.8); Neutrophils % 69.5 % (37.0-80.0); Platelet Count 429 K/mm3 (142-424); Red Blood Count 4.61 M/mm3 (4.60-6.20); Red Cell Distribution Width 17.6 % (11.5-17.5); White Blood Count 12.2 K/mm3 (4.8-10.8)
[2024-06-21 08:55] LABS: Alanine Aminotransferase 26 U/L (12-78); Albumin Level 3.9 g/dl (3.5-5.0); Albumin/Globulin Ratio 1.1 (1.1-1.8); Alkaline Phosphatase 161 U/L (38-126); Anion Gap 9.4 mEq/L (5-15); Aspartate Amino Transferase 27 U/L (17-59); Blood Urea Nitrogen 23 mg/dl (9-20); Carbon Dioxide 39 mmol/L (22.0-30.0); Chloride 91 mmol/L (98-107); Creatinine Clearance Estimated 76 mL/min (50-200); Estimated Glomerular Filt Rate 61 ml/min (>60); GFR (African American) 74 ML/MIN (>60); Globulin 3.5 g/dL (1.3-3.2); Glucose 194 mg/dl (74-100); Potassium 4.4 mmoL/L (3.5-5.1); Sodium 135 mmol/L (136-145); Total Protein,Serum 7.4 g/dl (6.3-8.2)
[2024-06-21 09:17] LABS: Bilirubin,Total 0.1 mg/dl (0.2-1.3)
[2024-06-21] MEDS: GABAPENTIN 300MG CAPSULE 900 MG PO ×2 (09:27→12:27)
[2024-06-21] MEDS: IRBESARTAN 75MG TABLET 37.5 MG PO (09:27)
[2024-06-21] MEDS: METHOCARBAMOL 500MG TABLET 500 MG PO ×2 (09:27→12:38)
[2024-06-21] MEDS: APIXABAN 5MG TABLET 5 MG PO (09:27)
[2024-06-21] MEDS: SENNOSIDES 8.6MG/DOCUSATE 50MG TABLET 2 TAB PO (09:27)
[2024-06-21] MEDS: ASPIRIN EC 81MG TABLET 81 MG PO (09:27)
[2024-06-21] MEDS: SPIRONOLACTONE 25MG TABLET 50 MG PO ×2 (09:27→16:42)
[2024-06-21] MEDS: METOPROLOL SUCCINATE XL 100MG TABLET 100 MG PO (09:27)
[2024-06-21] MEDS: dilTIAZem HCL 180MG CAP.ER.24H 360 MG PO (09:27)
[2024-06-21] MEDS: CEFTRIAXONE SODIUM 2 GM in 0.9 % SODIUM CHLORIDE 100 ML IV (09:27)
[2024-06-21] MEDS: MUPIROCIN 2% OINTMENT 22GM TUBE TP ×2 (09:28→12:38)
[2024-06-21 09:30] LABS: Erythrocyte Sedimentation Rate 37 mm/hr (0-20)
[2024-06-21 09:45] LABS: Magnesium 1.8 mg/dl (1.6-2.3)
[2024-06-21] MEDS: INSULIN GLARGINE 100 UNITS/ML 3ML FLEXPEN 60 UNIT SUBCUT (09:48)
[2024-06-21 09:50] LABS: C-Reactive Protein 116.2 mg/L (0-4)
[2024-06-21] MEDS: ONDANSETRON 4MG/2ML VIAL 4 MG IV (10:04)
[2024-06-21 10:19] LABS: POC Glucose,Bedside 201 (70-110)
[2024-06-21 10:26] LABS: NT Pro Brain Natriuretic Pep. 1130 pg/mL (0-125)
--- NOTE | 2024-06-21 10:36 | EXP.CARD.PN ---
Subjective Subjective Date: 06/21/24 Time: 08:30 Principal diagnosis: Volume overload, A-fib RVR Interval history: Continued on Bumex drip. Labs reviewed. Good urine OP noted. Exam Data for Last 24 hours Vital signs and Labs for Last 24 Hours: Temp Pulse Resp BP Pulse Ox O2 Del Method O2 Flow Rate 97.5 F L 90 19 99/71 L 95 Room Air 1 06/21/24 07:36 06/21/24 08:15 06/21/24 07:36 06/21/24 07:36 06/21/24 07:36 06/21/24 07:36 06/18/24 06:59 Laboratory Results - last 24 hr 06/20/24 11:28: POC Glucose 239 H 06/20/24 16:17: POC Glucose 214 H 06/20/24 20:54: POC Glucose 499 H* 06/21/24 05:41: POC Glucose 230 H 06/21/24 08:30: WBC 12.2 H, RBC 4.61, Hgb 10.9 L, Hct 36.6 L, MCV 79.4 L, MCH 23.6 L, MCHC 29.8 L, RDW 17.6 H, Plt Count 429 H, MPV 8.8, Neut % (Auto) 69.5, Lymph % (Auto) 18.4, [place] % (Auto) 5.4, Eos % (Auto) 4.7, Baso % (Auto) 0.4, Neut # (Auto) 8.5 H, Lymph # (Auto) 2.2, [place] # (Auto) 0.7, Eos # (Auto) 0.6 H, Baso # (Auto) 0.1, ESR 37 H, Sodium 135 L, Potassium 4.4, Chloride 91 L, Carbon Dioxide 39 H, Anion Gap 9.4, BUN 23 H, Creatinine 1.20, Estimated Creat Clear 76, Estimated GFR 61, Est GFR ( Amer) 74, Glucose 194 H, Calcium 9.0, Magnesium 1.8, Total Bilirubin 0.1 L, AST 27, ALT 26, Alkaline Phosphatase 161 H, C-Reactive Protein 116.2 H, Total Protein 7.4, Albumin 3.9, Globulin 3.5 H, Albumin/Globulin Ratio 1.1 06/21/24 09:47: POC Glucose 201 H I & O for Last 24 hours: Intake & Output 06/18/24 06/20/24 06/20/24 06/21/24 23:59 00:59 23:59 23:59 Intake Total 1337 / 1687 2272 / 2626 2571.667 / 3091.667 1638 / 1638 Output Total 2675 / 4875 4400 / 4400 4400 / 4400 2600 / 2600 Balance -1338 / -3188 -2128 / -1774 -1828.333 / -1308.333 -962 / -962 Weight 449 lb 11.888 oz 450 lb 6.47 oz Microbiology Reports for the Last 24 Hours: Microbiology 06/17/24 05:00 Leg,Left Gram Stain - Final 06/17/24 05:00 Leg,Left Wound Culture - Final Staphylococcus aureus Strep agalactiae - (group b) 06/16/24 12:55 Blood Blood Culture - Preliminary Strep agalactiae - (group b) 06/17/24 07:50 Blood Blood Culture - Preliminary NO GROWTH AFTER 4 DAYS 06/17/24 07:50 Blood Blood Culture - Preliminary NO GROWTH AFTER 4 DAYS 06/17/24 05:00 Buttock Gram Stain - Final 06/17/24 05:00 Buttock Wound Culture - Final Proteus mirabilis Constitutional Constitutional: no acute distress *Routine Respiratory Exam Respiratory: Present rhonchi and symmetric chest movement *Routine Cardiovascular Exam Cardiovascular: Present RRR, Normal S1 and Normal S2 *Routine Abdominal Exam Abdominal: Present soft and normoactive bowel sounds; Absent tenderness *Routine Extremities Exam Extremities: Present edema, full ROM and normal capillary refill *Routine Skin Exam Skin: Present intact, dry and warm Detailed Neck Exam: Thyroids Thyroid: Absent bruit Progress Note: A&P Assessment and plan (1) Sacral wound: Status: Acute Assessment and Plan Assessment and Plan for All Diagnoses:: Acute on Chronic HFpEF- NYHA III-IV Echo shows an estimated EF of 55% with increased LV wall thickness Continue Bumex at increased rate of 2 mg/h and continue until creatinine increases A-fib RVR Currently rate controlled on diltiazem 360 mg p.o. daily and metoprolol succinate 100 mg p.o. twice daily Continue Eliquis 5 mg p.o. twice daily 06/21/2024 summary: Continue to diurese patient with Bumex drip, increase rate to 2 mg/h. Can continue until creatinine starts to increase. CV Meds: Bumex drip Aldactone 50 mg p.o. twice daily Irbesartan 37.5 mg p.o. daily Diltiazem 360 mg p.o. daily Metoprolol succinate 100 mg p.o. twice daily Eliquis 5 mg p.o. twice daily Aspirin 81 mg p.o. daily
--- NOTE | 2024-06-21 11:06 | PC.NURSE ---
lab notifed this RN of MRSA positive culture. pt placed in contact precautions
[2024-06-21 11:31] LABS: POC Glucose,Bedside 255 (70-110)
--- NOTE | 2024-06-21 11:57 | PC.NURSE ---
dressing on bottom changed per Dr. Al order. verbally discussed dressing preference with surgeon and placed kerlex and tape per surgeon wishes. this keeps crevices clean. pt unable to stand for long periods for dressing change and refuses to lay in bed for change. dressing applied and inital/dated. pt tolerated well.
[2024-06-21 16:31] LABS: POC Glucose,Bedside 243 (70-110)
[2024-06-21 16:57] LABS: Chloride 89 mmol/L (98-107)
[2024-06-21 16:58] LABS: Potassium 4.7 mmoL/L (3.5-5.1); Sodium 131 mmol/L (136-145)
[2024-06-21 17:00] LABS: Blood Urea Nitrogen 23 mg/dl (9-20); Creatinine Clearance Estimated 70 mL/min (50-200); Estimated Glomerular Filt Rate 56 ml/min (>60); GFR (African American) 68 ML/MIN (>60)
[2024-06-21 17:01] LABS: Calcium 8.8 mg/dl (8.4-10.2); Glucose 255 mg/dl (74-100)
[2024-06-21 17:08] LABS: Anion Gap 11.7 mEq/L (5-15); Carbon Dioxide 35 mmol/L (22.0-30.0)
--- NOTE | 2024-06-21 17:24 | P.DS_ITS ---
General Admission date:: 06/16/24 HPI HPI HPI: Is a 61-year-old gentleman seen in consultation from the primary service for evaluation regarding sacral/buttock wounds. The patient reports that his sacral/buttock wounds got much worse after recent hospitalization in [place] . See HPI forwarded from admission H&P/emergency department evaluation below. Forwarded from admission H&P/emergency department evaluation: Mr. Christiansen is a 63-year-old male who was recently moved to the area to live with his sister due to poor health and declining status living with family in [place]. He has a history of morbid obesity, CHF, diabetes, LORI. Had developed significant debility and numerous pressure wounds. Per review of notes from [facility] and ER documentation, the patient had recently spent 6 weeks hospitalized at [facility] for heart failure, infected decubitus wounds, osteomyelitis of his foot status post amputation, and significant debility. He discharged to rehab for several weeks and then got readmitted to [facility] for 3 more weeks due to recurrent heart failure and volume overload. Was not a candidate for rehab placement after that admission and discharged home where he has been for approximately 3 weeks. Has not had follow-up as an outpatient with PCP or specialists as of yet. Taking some but not all of the medications prescribed at last visit. Has not been on blood thinners due to cost and insurance issues. Received stents in his lower extremities due to peripheral artery disease during one of his previous hospitalizations. Diabetes has been poorly controlled as he has not had a glucometer. He presented to the ER today due to worsening weakness, shortness of breath, swelling in legs and redness especially in his left leg. On presentation, concern for acute on chronic heart failure, volume overload, cellulitis. Patient's weight is up approximately 40 pounds from his last documented weight and discharge from [facility] several weeks ago. He has draining ulcerative wounds on his lower extremities. Redness progressing up his left leg almost to his thigh. Also has a red patch of skin on his right side. Decubitus wound on his bottom reportedly appears better than images from when he first presented to [facility] in March. He is afebrile and has normal kidney function on labs and a white count of 10.9. Is dyspneic, unable to lay flat due to shortness of breath, chest imaging positive for cardiomegaly. Medicine was consulted for consideration for admission and further management. On evaluation, patient appears in moderate distress. Is morbidly obese and chronically ill. Able to answer questions but dyspneic after each sentence. On room air with sats in the low 90s. Currently receiving IV vancomycin. Received one-time dose of Bumex in the ER. After evaluation, determination made that patient was appropriate for admission at this time as there is no emergent need for transfer however had candid conversation with patient that if he has worsening condition, needs imaging such as CT's, we may have to transfer due to his size and complexity and limitations of our facility. Patient states understanding. Patient sisters at bedside helps supplement history. Hospital Course Hospital Course Hospital Course: Bebeto Christiansen is a 63-year-old male with morbid obesity was admitted for acute on chronic HFpEF, volume overload, lower extremity cellulitis. #Acute on chronic HFpEF #Venous insufficiency ? Presented with progressive anasarca, has not been adherent to medications due to unfortunate significant life stressors at this time. Recently admitted to [facility] in [place] within the last month for similar presentation. ? Cardiology consulted, and spironolactone diuresed with Bumex drip, had net -10 L output during admission. ? Still has quite a bit of volume to diurese, but patient wanted to go home to attend to his family affairs today. At this time, I do feel this is reasonable as patient is on room air and responding well to Bumex diuresis. ? Discharged with Bumex 2 mg 3 times daily, spironolactone 50 mg twice daily for now. Strongly encourage patient to follow-up with cardiology within the next week to further evaluate diuretic regimen, and follow-up on renal function. ? Unna boots applied to lower extremities. #Hypertension #A-fib ? Discharged with irbesartan 37.5 mg, metoprolol succinate 100 mg twice daily, spironolactone 50 mg twice daily, diltiazem 360 mg daily. ? Eliquis 5 mg twice daily for A-fib. Currently rate controlled. #Type 2 diabetes ? Hemoglobin A1c 9.9. Will need close follow-up with PCP for further evaluation management. ? Discharged with glargine 60 units twice daily, metformin 500 mg twice daily. - Cardiology recommended considering initiation of Jardiance for diabetes and heart failure as above; in light of patient's breakdown of skin in his groin however, concerned that SGLT2 would drastically increase his risk for Marilin's and will hold on initiating at this time. #Lower extremity cellulitis #Group B strep bacteremia ? Clinically improved with ceftriaxone. Blood and wound cultures. Blood and wound cultures with group B strep and providencia, Sensitive to cephalosporins and clindamycin. ? Discharged with cefdinir, clindamycin. Morbid obesity complicates all aspects of his care. PT and OT consulted along with social work to assist with dispo planning in next site of care; PT evaluated and states patient is independently mobile. Safe to discharge home when medically stable. Referred to to outpatient PT, OT, wound. Exam Data for Last 24 hours Vital signs and Labs for Last 24 Hours: Temp Pulse Resp BP Pulse Ox O2 Del Method O2 Flow Rate 98.7 F 82 22 141/68 H 97 Room Air 1 06/21/24 12:00 06/21/24 12:00 06/21/24 12:00 06/21/24 12:00 06/21/24 12:00 06/21/24 17:00 06/18/24 06:59 Laboratory Results - last 24 hr 06/20/24 20:54: POC Glucose 499 H* 06/21/24 05:41: POC Glucose 230 H 06/21/24 08:30: WBC 12.2 H, RBC 4.61, Hgb 10.9 L, Hct 36.6 L, MCV 79.4 L, MCH 23.6 L, MCHC 29.8 L, RDW 17.6 H, Plt Count 429 H, MPV 8.8, Neut % (Auto) 69.5, Lymph % (Auto) 18.4, [place] % (Auto) 5.4, Eos % (Auto) 4.7, Baso % (Auto) 0.4, Neut # (Auto) 8.5 H, Lymph # (Auto) 2.2, [place] # (Auto) 0.7, Eos # (Auto) 0.6 H, Baso # (Auto) 0.1, ESR 37 H, Sodium 135 L, Potassium 4.4, Chloride 91 L, Carbon Dioxide 39 H, Anion Gap 9.4, BUN 23 H, Creatinine 1.20, Estimated Creat Clear 76, Estimated GFR 61, Est GFR ( Amer) 74, Glucose 194 H, Calcium 9.0, Magnesium 1.8, Total Bilirubin 0.1 L, AST 27, ALT 26, Alkaline Phosphatase 161 H , C-Reactive Protein 116.2 H, NT-Pro-B Natriuret Pep 1130 H, Total Protein 7.4, Albumin 3.9, Globulin 3.5 H, Albumin/Globulin Ratio 1.1 06/21/24 09:47: POC Glucose 201 H 06/21/24 11:24: POC Glucose 255 H 06/21/24 16:15: Sodium 131 L, Potassium 4.7, Chloride 89 L, Carbon Dioxide 35 H, Anion Gap 11.7, BUN 23 H, Creatinine 1.30 H, Estimated Creat Clear 70, Estimated GFR 56 L, Est GFR ( Amer) 68, Glucose 255 H D, Calcium 8.8 06/21/24 16:20: POC Glucose 243 H I & O for Last 24 hours: Intake & Output 06/18/24 06/20/24 06/20/24 06/21/24 23:59 00:59 23:59 23:59 Intake Total 1337 / 1687 2272 / 2626 2571.667 / 3091.667 2248 / 2248 Output Total 2675 / 4875 4400 / 4400 4400 / 4400 3600 / 3600 Balance -1338 / -3188 -2128 / -1774 -1828.333 / -1308.333 -1352 / -1352 Weight 204 kg 204.3 kg Microbiology Reports for the Last 24 Hours: Microbiology 06/17/24 05:00 Leg,Left Gram Stain - Final 06/17/24 05:00 Leg,Left Wound Culture - Final Staphylococcus aureus Strep agalactiae - (group b) 06/16/24 12:55 Blood Blood Culture - Preliminary Strep agalactiae - (group b) 06/17/24 07:50 Blood Blood Culture - Preliminary NO GROWTH AFTER 4 DAYS 06/17/24 07:50 Blood Blood Culture - Preliminary NO GROWTH AFTER 4 DAYS Constitutional Constitutional: no acute distress *Routine Respiratory Exam Respiratory: Present rhonchi and symmetric chest movement *Routine Cardiovascular Exam Cardiovascular: Present RRR, Normal S1 and Normal S2 *Routine Abdominal Exam Abdominal: Present soft and normoactive bowel sounds; Absent tenderness *Routine Extremities Exam Extremities: Present edema, full ROM and normal capillary refill *Routine Skin Exam Skin: Present intact, dry and warm Detailed Neck Exam: Thyroids Thyroid: Absent bruit Results Data Completed and Pending Labs on day of discharge: Labs from last 24 hours 06/21/24 06/21/24 06/21/24 16:20 16:15 11:24 WBC RBC Hgb Hct MCV MCH MCHC RDW Plt Count MPV Neut % (Auto) Lymph % (Auto) [place] % (Auto) Eos % (Auto) Baso % (Auto) Neut # (Auto) Lymph # (Auto) [place] # (Auto) Eos # (Auto) Baso # (Auto) ESR Sodium 131 L Potassium 4.7 Chloride 89 L Carbon Dioxide 35 H Anion Gap 11.7 BUN 23 H Creatinine 1.30 H Estimated Creat Clear 70 Estimated GFR 56 L Est GFR ( Amer) 68 Glucose 255 H D POC Glucose 243 H 255 H Calcium 8.8 Magnesium Total Bilirubin AST ALT Alkaline Phosphatase C-Reactive Protein NT-Pro-B Natriuret Pep Total Protein Albumin Globulin Albumin/Globulin Ratio 06/21/24 06/21/24 06/21/24 09:47 08:30 05:41 WBC 12.2 H RBC 4.61 Hgb 10.9 L Hct 36.6 L MCV 79.4 L MCH 23.6 L MCHC 29.8 L RDW 17.6 H Plt Count 429 H MPV 8.8 Neut % (Auto) 69.5 Lymph % (Auto) 18.4 [place] % (Auto) 5.4 Eos % (Auto) 4.7 Baso % (Auto) 0.4 Neut # (Auto) 8.5 H Lymph # (Auto) 2.2 [place] # (Auto) 0.7 Eos # (Auto) 0.6 H Baso # (Auto) 0.1 ESR 37 H Sodium 135 L Potassium 4.4 Chloride 91 L Carbon Dioxide 39 H Anion Gap 9.4 BUN 23 H Creatinine 1.20 Estimated Creat Clear 76 Estimated GFR 61 Est GFR ( Amer) 74 Glucose 194 H POC Glucose 201 H 230 H Calcium 9.0 Magnesium 1.8 Total Bilirubin 0.1 L AST 27 ALT 26 Alkaline Phosphatase 161 H C-Reactive Protein 116.2 H NT-Pro-B Natriuret Pep 1130 H Total Protein 7.4 Albumin 3.9 Globulin 3.5 H Albumin/Globulin Ratio 1.1 06/20/24 20:54 WBC RBC Hgb Hct MCV MCH MCHC RDW Plt Count MPV Neut % (Auto) Lymph % (Auto) [place] % (Auto) Eos % (Auto) Baso % (Auto) Neut # (Auto) Lymph # (Auto) [place] # (Auto) Eos # (Auto) Baso # (Auto) ESR Sodium Potassium Chloride Carbon Dioxide Anion Gap BUN Creatinine Estimated Creat Clear Estimated GFR Est GFR ( Amer) Glucose POC Glucose 499 H* Calcium Magnesium Total Bilirubin AST ALT Alkaline Phosphatase C-Reactive Protein NT-Pro-B Natriuret Pep Total Protein Albumin Globulin Albumin/Globulin Ratio Preliminary micro results at discharge 06/16/24 12:55 Blood Culture - Preliminary Blood Strep agalactiae - (group b) 06/17/24 07:50 Blood Culture - Preliminary Blood NO GROWTH AFTER 4 DAYS 06/17/24 07:50 Blood Culture - Preliminary Blood NO GROWTH AFTER 4 DAYS DS: Diagnosis Discharge Diagnosis (1) Sacral wound: Status: Acute Code(s): S31.000A - Unspecified open wound of lower back and pelvis without penetration into retroperitoneum, initial encounter Qualifiers: Encounter type: initial encounter Qualified Code(s): S31.000A - Unspecified open wound of lower back and pelvis without penetration into retroperitoneum, initial encounter Meds Home Medications and Allergies Home Medications ?Medication ?Instructions ?Recorded ?Confirmed ?Type apixaban 5 mg tablet (Eliquis) 5 mg PO BID 30 days #60 tabs 06/21/24 Rx aspirin 81 mg tablet,delayed 81 mg PO DAILY 30 days #30 tabs 06/21/24 Rx release atorvastatin 10 mg tablet 10 mg PO HS 30 days #30 tabs 06/21/24 Rx bumetanide 2 mg tablet 2 mg PO TID 30 days #90 tabs 06/21/24 Rx cefdinir 300 mg capsule 300 mg PO BID 5 days #10 caps 06/21/24 Rx diltiazem HCl 180 mg 360 mg (2 x 180 mg) PO DAILY 30 06/21/24 Rx capsule,extended release 24 hr days #60 caps gabapentin 300 mg capsule 900 mg (3 x 300 mg) PO TID 30 days 06/21/24 Rx #270 caps insulin glargine 100 unit/mL (3 60 unit (0.6 mL) SQ BID 30 days 06/21/24 Rx mL) subcutaneous pen (Lantus #36 mL Solostar U-100 Insulin) irbesartan 75 mg tablet 37.5 mg (1/2 x 75 mg) PO DAILY 30 06/21/24 Rx days #15 tabs metformin 500 mg tablet 500 mg PO BID #30 tabs 06/21/24 Rx metoprolol succinate 100 mg 100 mg PO BID 30 days #60 tabs 06/21/24 Rx tablet,extended release 24 hr pantoprazole 40 mg tablet,delayed 40 mg PO HS 30 days #30 tabs 06/21/24 Rx release polyethylene glycol 3350 17 gram 17 g PO DAILY 30 days #30 ea 06/21/24 Rx oral powder packet (HealthyLax) spironolactone 25 mg tablet 50 mg (2 x 25 mg) PO BIDL 30 days 06/21/24 Rx #120 tabs clindamycin HCl 300 mg capsule 300 mg PO TID 7 days #21 caps 06/22/24 Rx New Prescriptions to Start Prescriptions: apixaban [Eliquis] Mario,Jorge A aspirin [place],Jorge A atorvastatin [place],Jorge A bumetanide [place],Jorge A cefdinir [place],Jorge A clindamycin HCl [place],Jorge A diltiazem HCl [place],Jorge A gabapentin [place],Jorge A insulin glargine [Lantus Solostar U-100 Insulin] Pidque,Jorge A irbesartan P[place],Jorge A metformin [place],Jorge A metoprolol succinate [place],Jorge A pantoprazole Mario,Jorge A polyethylene glycol 3350 [HealthyLax] Mario,Jorge A spironolactone Mario,Jorge A Allergies Allergy/AdvReac Type Severity Reaction Status Date / Time hydromorphone (From Dilaudid) AdvReac Vomiting Verified 07/17/24 13:54 morphine AdvReac Vomiting Verified 07/17/24 13:54 Discharge Plan Disposition Patient Disposition: Home, Self-Care Condition: Fair Discharge Order Discharge Orders: Discharge Order (Routine); Ordered 06/21/24 Ordered By: Jorge A Martin Follow up Plan Follow up with: Saulo Martinez DO [Primary Care Provider] - 06/28/24 9:30 am Gordon Crocker MD [Staff Physician] - Enter time for follow up (please call for appointment) Prescriptions/Medication Reconciliation: New polyethylene glycol 3350 [HealthyLax] 17 gram Powder In Packet 17 g PO DAILY 30 Days Qty: 30 0RF atorvastatin 10 mg Tablet 10 mg PO HS 30 Days Qty: 30 0RF diltiazem HCl 180 mg Capsule,Extended Release 24hr 360 mg PO DAILY 30 Days Qty: 60 0RF metoprolol succinate 100 mg Tablet Extended Release 24 Hr 100 mg PO BID 30 Days Qty: 60 0RF aspirin 81 mg Tablet,Delayed Release (Dr/Ec) 81 mg PO DAILY 30 Days Qty: 30 0RF spironolactone 25 mg Tablet 50 mg PO BIDL 30 Days Qty: 120 0RF pantoprazole 40 mg Tablet,Delayed Release (Dr/Ec) 40 mg PO HS 30 Days Qty: 30 0RF irbesartan 75 mg Tablet 37.5 mg PO DAILY 30 Days Qty: 15 0RF insulin glargine [Lantus Solostar U-100 Insulin] 100 unit/mL (3 mL) Insulin Pen 60 unit SQ BID 30 Days Qty: 36 0RF Eliquis 5 mg Tablet 5 mg PO BID 30 Days Qty: 60 0RF cefdinir 300 mg capsule 300 mg PO BID 5 Days Qty: 10 0RF bumetanide 2 mg tablet 2 mg PO TID 30 Days Qty: 90 0RF metformin 500 mg tablet 500 mg PO BID Qty: 30 0RF gabapentin 300 mg capsule 900 mg PO TID 30 Days Qty: 270 0RF clindamycin HCl 300 mg capsule 300 mg PO TID 7 Days Qty: 21 0RF Discontinued torsemide 20 mg tablet 20 mg PO DAILY Patient Comments: TAKE 1 TABLET BY MOUTH ONCE DAILY metoprolol succinate 50 mg tablet extended release 24 hr 50 mg PO DAILY Patient Comments: TAKE 1 TABLET BY MOUTH DAILY valsartan 40 mg tablet 40 mg PO DAILY Patient Comments: TAKE 1 TABLET BY MOUTH DAILY Other Ambulatory Orders: Rehab Eval, OP (Routine) Timeframe: 2 Weeks Facility: [facility] - Location: Physical Therapy Ordered By: Jorge A Martin Problem Reconciliation Problems Reviewed?: Yes Patient Discharge Instructions Patient Instructions: DI for Heart Failure, DI for Atrial Fibrillation Print Language: Maori Providers Primary Care Provider: Saulo Martinez Admit Provider: Cullen Wu Attending Provider: Cullen Wu
--- NOTE | 2024-06-22 09:57 | SW/DCPLANNER ---
Spoke with patient on the phone. patient stated he could be better. Patient stated that he is aware of his upcoming appointments. Patient stated that he has not picked his medicine up from [facility] [place] yet plans on getting them today. Patient stated that he left some things at the hospital and i stated to him to go to 2nd floor and see the floor steward/stewardess. Patient stated that he has no concerns or questions at this time. Prashanth [facility] [employer] Specialist.
--- OUTSIDE RECORDS SUMMARY | 2024-07-21 10:22 | XMS_ITS ---
Author Organization Unknown TREATMENT PLAN Planned [facility] Start Date Provider Encounter for Check-up [phone] [facility]
--- OUTSIDE RECORDS SUMMARY | 2024-07-21 10:23 | XMS_ITS | Continuity of Care Document ---
Author Organization [employer] Formerly [facility] Address [address] [facility] [address] [place] [address] Assessment Encounter Date Assessment Date Assessment LastModified by Organization Details LastModified Time 05/24/2024 05/24/2024 45 mins spent on visit w/ pt, chart review, care coordination and counseling The care of this patient was conducted under the direct supervision of Patricia Brown MD . Chronic care management / Remote patient monitoring was discussed with patient during visit. Pt wishes to participate in CCM/RPM. Health goals and care plans discussed with patient and optimized based on patient's wishes, current health state, resources available and goals of care. Provider recommendations and extensive counseling given to patient, start to follow on CCM/RPM at this time. CCM program services described to patient. Possible cost sharing explained to patient in context of those with secondary insurances will likely have no out of pocket costs and per CMS guidelines CCM may help avoid costly services in the future by proactively managing patient health, rather than only treating severe or acute disease and illness. Patient confirms at this time is not participating in CCM/RPM with another provider. Patient understands can stop RPM/CCM services at any time. ueyoh Not available 05/24/2024 22:21:41 Plan of Treatment Reminders Order Date Submit Date Provider Last Modified By Organization Details Last Modified Time Details Appointments None record ed. Lab None record ed. Referral None record ed. Procedures None record ed. Surgeries None record ed. Imaging None record ed. Medication Orders None record ed. Patient TargetsNo targets recorded. Patient InstructionsNo instructions recorded. Reason for Referral None Reported. Problems Name Problem SNOMED Code Status Onset Date Resolution Date Notes Provider Name and Address Organization Details Recorded Time 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 581745543 Active 2024 Rigoberto Rucker, [employer] [address], [place], [address], [place] [employer] [facility] [facility] 5 09:10:54 Peripheral arterial disease 590437465 Active 2024 Rigoberto Rucker, [employer] [address], [place], [address], [place] [employer] [facility] 5 09:11:40 Paroxysmal atrial fibrillatio n 826397667 Active 2024 Rigoberto Rucker, [employer] [address], [place], [address], [place] [employer] [facility] 5 09:14:46 Type 2 diabetes mellitus with peripheral angiopathy 721384392 Active 2024 Rigoberto Rucker, [employer] [address], [place], [address], [facility] 5 09:16:10 Microcytic anemia 670747014 Active 2024 Rigoberto Rucker [employer] [address], [place], [address], [place] [employer] 5 09:16:33 Essential hypertensio n 91990887 Active 2024 Rigoberto Rucker [employer] [address], [place], [address], [place] [employer] 5 09:16:50 Body mass index 40+ - severely obese 852663298 Active 2024 Rigoberto Rucker NP [address], [place], [address], [employer] 5 09:18:52 Mixed anxiety and depressive disorder 525659730 Active 2024 Rigoberto Rucker [employer] [address], [place], [address], [facility] 5 09:19:48 Peripheral neuropathy due to type 2 diabetes mellitus 7861099291156 Active 2024 Rigoberto Rucker [employer] [address], [place], [address], [employer] 5 09:31:19 Muscle weakness 73638337 Active 2024 Rigoberto Rucker, [employer] [address] [facility] [address], [place], [address], [employer] 5 22:21:47 Problem Notes None recorded. Medical Equipment None Reported. Allergies Allergen ID Allergen Name Allergen Category Reaction Reaction Severity Criticality Documentation Date Start Date Code Code System Note Provider Name and Address Organization Details Recorded Time 90561 Substance with sulfonami de structure and antibacte rial mechanism of action (substanc e) medicatio n Not available Not available Not available 05/23/2024 39211 8003 SNOMED naima page null, [employer] 5 10:26:26 09907 hydromorp desiree medicatio n Not available Not available Not available 05/23/2024 3423 RxNorm naima page null, [employer] 5 10:26:37 20698 furosemid e medicatio n Not available Not available Not available 05/23/2024 4603 RxNorm naima page null, [employer] 5 10:26:45 62875 morphine medicatio n Not available Not available Not available 05/23/2024 7052 RxNorm naima page null, [employer] 5 10:26:52 Medications Name Sig Start Date Stop Date Status Note LastModified by Organization Details LastModified Time Miralax 17 gram oral powder packet Take 1 packet every day by oral route as needed. active Not Available Not Available No t Available bumetanide 2 mg tablet Take 1 tablet twice a day by oral route. active Not Available Not Available No t Available lidocaine 4 % topical patch apply to lower back every 24 hours active Not Available Not Available No t Available trazodone 50 mg tablet Take 2 tablets every day by oral route in the evening. active Not Available Not Available No t Available gabapentin 400 mg capsule Take 1 capsule every 8 hours by oral route. active Not Available Not Available Not Available clopidogrel 75 mg tablet Take 1 tablet every day by oral route. active Not Available Not Available No t Available methocarbamo l 750 mg tablet Take 1 tablet 3 times a day by oral route. active Not Available Not Available No t Available pantoprazole 40 mg tablet,delay ed release Take 1 tablet twice a day by oral route. active Not Available Not Available No t Available hydroxyzine HCl 25 mg tablet Take 1 tablet 3 times a day by oral route as needed. active Not Available Not Available No t Available metoprolol succinate ER 25 mg tablet,exten ded release 24 hr Take 1 tablet twice a day by oral route. active Not Available Not Available No t Available ondansetron 4 mg disintegrati ng tablet Place 1 tablet every 4 hours by translingua l route as needed. active Not Available Not Available No t Available insulin lispro (U-100) 100 unit/mL subcutaneous cartridge s-s, 150-199=2 units, 200-249=4 units, 250-299=6 units, 300-349=8 units, 350-399=10 units active Not Available Not Available No t Available rosuvastatin 40 mg tablet Take 1 tablet every day by oral route in the evening. active Not Available Not Available No t Available Senna with Docusate Sodium 8.6 mg-50 mg tablet Take 2 tablets twice a day by oral route as needed. active Not Available Not Available No t Available diclofenac 1 % topical gel APPLY 2 GRAMS TO THE AFFECTED AREA(S) BY TOPICAL ROUTE 3 TIMES PER DAY active Not Available Not Available No t Available melatonin 5 mg tablet Take 2 tablets every day by oral route in the evening. active Not Available Not Available No t Available Eliquis 5 mg tablet Take 1 tablet twice a day by oral route. active Not Available Not Available No t Available Jardiance 10 mg tablet Take 1 tablet every day by oral route. active Not Available Not Available No t Available Entresto 24 mg-26 mg tablet Take 2 tablets every 12 hours by oral route. active Not Available Not Available Not Available acetaminophe n 325 mg chewable tablet Chew 2 tablets twice a day by oral route. active Not Available Not Available No t Available Semglee (insulin glargine-yfg n) 100 unit/mL subcutaneous solution Inject 34 units every 12 hours by subcutaneou s route. active Not Available Not Available No t Available Vitals Date Recorded Body weight Body mass index (BMI) Body height Provider Name and Address Organization Details Last Updated DateTime 05/24/2024 457143.8 g 49.1 kg/m2 190.5 cm Rigoberto Rucker [employer] [address], [place], [address], [place] - [facility] 05/24/2024 08:59:26 Social History None recorded. Functional Status None recorded. Mental Status None recorded. Family History Nothing Reported. Medical History No medical history recorded. Past Encounters Encounter ID Performer Location Encounter Start Date Encounter Closed Date Diagnosis/Indication Diagnosis SNOMED-CT Code Diagnosis ICD10 Code Diagnosis Note [id number] Rigoberto Rucker NP [facility] [place] [address] [place] [id number] 05/24/2024 08:58:51 05/24/2024 22:25:01 Osteomyelitis of forefoot 604855806 M86.9 S/p right fourth toe amputation on 04/23/2024. Patient completed IV Zosyn. Patient advised to keep f/u appointmen t for suture removal. SN for wound management and close monitoring . Peripheral arterial disease 579826479 I73.9 continue to foot ulcers, s/p right 4th toe amputation . Continue Plavix, statin and AC. F/U with vascular surgeon. Paroxysmal atrial fibrillation 418573168 I48.0 Continue Metoprolol for rate control and Eliquis for stroke risk reduction. High risk med, monitor for bleeding. Type 2 ryan betes mellitus with peripheral angiopathy 796991806 E11.52 Z79.4 Reports BG controlled . Continue current diabetic regimen, monitor BG closely to assess for lows and assist with insulin adjustment . Consistent carbohydra te. Microcytic anemia 805809 007 D50.9 Hgb stable per hospital record, continue to optimize dietary iron intake. F/U with PCP for labs monitoring . Essential hypertension 64187858 I10 Continue b/p meds, monitor b/p closely, limit salt. SN for diseases/m eds management and education. Body mass index 40+ - severely obese 858860264 E66.01 Z68.42 BMI 49.1. Discussed at length most important aspect of weight management being calorie balance, and more specifical ly calorie deficit to begin weight loss. Discussed hypothesis of insulin resistance , intermitte nt fasting, and time restricted feeding. Reviewed protocols and recommenda tions. Mixed anxi ety and depressive disorder 104765778 F41.9 F32.A Continue Hydroxyzin e and Trazodone. Peripheral neuropathy due to type 2 diabetes mellitus 8397800407 107 E11.42 Continue Gabapentin for pain management . Muscle weakness 35877141 M62.81 HH PT/OT eval and treat to address mobility, gait, transfer and ADLs deficits. Fall precaution s. Health Concerns Section Related Observation LastModified by Organization Detai ls LastModified Time None Recorded Concern Status LastModified by Organization Details LastModified Time None Recorded Payers Encounter Date Sequence Insurance Name Policy Number Policy Arevalo Covered Member ID Arevalo Member ID Guarantor Name 05/24/2024 1 [facility] (MEDICARE REPLACEMENT/A DVANTAGE - PPO) [id number] Bebeto Christiansen [id number] Bebeto Christiansen Notes Date Note Type Note Provider Name and Address Organization Details Recorded Time 05/24/2024 text/html A 63 y/o male pa tient was seen remotely via telemedicine using either a 2-way live phone call or video. The method of visit was based on the patient's preference or their inability to use video. Verbal informed consent was obtained from the patient or their caregiver before the visit. Audio only scheduled. Patient seen to establish care and assist home health with care coordination. Patient with h/o PAF (on Eliquis), HTN, HLD, T2DM, chronic anemia, recurrent BLE cellulitis with chronic wounds was admitted to hospital 03/27/24-05/06/24 with progressive leg swelling. Work-up was concerning for sepsis secondary to BLE cellulitis (WBCs 18.80, lactic acid 2.8). Hospital course has been complicated by a-fib RVR. Cardiology and ID followed. Orthopedic surgery was consulted 04/08 for further wound management. However, patient was unable to tolerate being in the MRI machine, so imaging was delayed. Patient also required revascularization by Dr. Lazaro with cardiology after duplex revealed bilateral arterial disease. Patient ultimately underwent right fourth toe amputation with Dr. Richard on 04/23/2024. ID followed for antibiotic management given concern for osteomyelitis. Patient completed IV Zosyn. He was eventually discharged to SNF rehab on 05/06/24 for therapy. Patient was in rehab until 05/21/24 when he was discharged home with home health. Mobility: walker/wheelchair, reports wound is still open and draining with suture intact, does know when his f/u with the surgeon but her sister discharge. Patient advised to keep f/u appointment for suture removal. Patient will benefit from [facility] services to assist with needs. Hospital records reviewed. Medications reviewed and reconciled. Rigoberto Rucker NP [address] [place] [address], [address], [employer] 05/24/2024 22:24:32
== END 2024-06-21 18:30 | disposition home or self-care (01) | DRG 602 ==
LOC: ER 16:09 → 2ND 16:13 → ICU 06-17 05:11 → 2ND 06-17 16:03
PROVIDERS: Nurse Practitioner; Nurse Practitioner Family; Physician Assistant; Student in an Organized Health Care Education/Training Program; Admitting Provider Internal Medicine Adolescent Medicine; Emergency Provider Emergency Medicine; PCP Internal Medicine; Visit Provider Internal Medicine Adolescent Medicine
DX: L03.116 Cellulitis of left lower limb (principal); I50.33 Acute on chronic diastolic (congestive) heart failure; Z68.43 Body mass index [BMI] 50.0-59.9, adult; L97.919 Non-pressure chronic ulcer of unspecified part of right lower leg with unspecified severity; L97.929 Non-pressure chronic ulcer of unspecified part of left lower leg with unspecified severity; Z16.24 Resistance to multiple antibiotics; I11.0 Hypertensive heart disease with heart failure; E66.01 Morbid (severe) obesity due to excess calories; E87.70 Fluid overload, unspecified; I87.2 Venous insufficiency (chronic) (peripheral); D50.9 Iron deficiency anemia, unspecified; R62.7 Adult failure to thrive; G47.33 Obstructive sleep apnea (adult) (pediatric); E11.9 Type 2 diabetes mellitus without complications
CPT/HCPCS: 36415; 71045; 80048; 80053; 80061; 81001; 82728; 82803; 82947; 82962; 83036; 83540; 83550; 83735; 83880; 84145; 84443; 84484; 85025; 85610; 85651; 86140; 86803; 87040; 87070; 87077; 87081; 87186; 87205; 87389; 87633; 93005; 93306; 93308; 94640; 94760; 94761; 97116; 97163; 97165; 97530; 99291; J0696; J1171; J1650; J1756; J1885; J1939; J2020; J2405; J3370; J3475; J7614; J7620

== ENCOUNTER 2024-07-17 13:24 | Observation (INO) | payer MEDICARE, SELFPAY ==
[2024-07-17] VITALS (10 sets, daily range): BP systolic 110–150; BP diastolic 61–90; PULSE 65–97; RESP 16–18; TEMP 36.6–37.1; O2SAT 88–100; BMI 53.1; BMI 54.8
--- NOTE | 2024-07-17 13:45 | ED_ITS ---
Discharge Plan Disposition Patient Disposition: Home, Self-Care Chief Complaint: Skin/Abscess/Foreign Body Prescriptions Prescriptions: No Action polyethylene glycol 3350 [HealthyLax] 17 gram Powder In Packet 17 g PO DAILY 30 Days Qty: 30 0RF atorvastatin 10 mg Tablet 10 mg PO HS 30 Days Qty: 30 0RF diltiazem HCl 180 mg Capsule,Extended Release 24hr 360 mg PO DAILY 30 Days Qty: 60 0RF metoprolol succinate 100 mg Tablet Extended Release 24 Hr 100 mg PO BID 30 Days Qty: 60 0RF aspirin 81 mg Tablet,Delayed Release (Dr/Ec) 81 mg PO DAILY 30 Days Qty: 30 0RF spironolactone 25 mg Tablet 50 mg PO BIDL 30 Days Qty: 120 0RF pantoprazole 40 mg Tablet,Delayed Release (Dr/Ec) 40 mg PO HS 30 Days Qty: 30 0RF irbesartan 75 mg Tablet 37.5 mg PO DAILY 30 Days Qty: 15 0RF insulin glargine [Lantus Solostar U-100 Insulin] 100 unit/mL (3 mL) Insulin Pen 60 unit SQ BID 30 Days Qty: 36 0RF Eliquis 5 mg Tablet 5 mg PO BID 30 Days Qty: 60 0RF cefdinir 300 mg capsule 300 mg PO BID 5 Days Qty: 10 0RF bumetanide 2 mg tablet 2 mg PO TID 30 Days Qty: 90 0RF metformin 500 mg tablet 500 mg PO BID Qty: 30 0RF gabapentin 300 mg capsule 900 mg PO TID 30 Days Qty: 270 0RF clindamycin HCl 300 mg capsule 300 mg PO TID 7 Days Qty: 21 0RF Referrals Follow up/Referrals: Saulo Martinez DO [Primary Care Provider] - See instructions Clinical Impressions Clinical Impression: Cellulitis, Lymphedema Instructions Patient Instructions: DI for Skin Abscess Print Language Print Language: Serbian Discharge ED Provider: Leonard Masterson General Adult HPI General Chief complaint: Skin/Abscess/Foreign Body Stated complaint: BLE CELLULITIS Time Seen by Provider: 07/17/24 13:32 Mode of Arrival: EMS Source of Information: Patient Description of Symptoms (Recalled from ER Triage Doc. by RN): patient states he has been being treated for BLE redness swelling in both legs for a while he has been here and [facility]. he reports he just recently got out of this hospital and had a long car ride yesterday and when he woke up today his legs were red and swollen weeping again. History of Present Illness HPI narrative: Patient is a 64-year-old male past medical history of insulin-dependent diabetes, lymphedema bilateral lower extremities and venous stasis who presents emergency department for evaluation of red swollen legs. History is obtained by patient at bedside. His legs been swollen for a while . However they had not been open and weeping until the last 24 to 48 hours. He says he has been intermittently compliant with his wraps. His right leg is more red than his left causing him to become concerned. He presents here for continued evaluation. No trauma. No other acute complaints at this time. Please note that above description of symptoms, in this electronic medical record under categorization of recalled from ER triage doctor by RN are reflective of an initial nursing assessment, however, is not reflective of my full history and physical exam that was personally taken and clarified. Consequentially, this preceding description of symptoms, which may include the patient's categorized chief complaint in the EMR, do not reflect my personal clinical impression, and the ultimate description of history of present illness and patient stated complaints should be deferred to this section of the note. Unless stated otherwise or congruent with this section of the note, additional signs, symptoms, or incongruence should be interpreted as inaccurate with my clinical impression. Related Data Previous Rx's ?Medication ?Instructions ?Recorded apixaban 5 mg tablet (Eliquis) 5 mg PO BID 30 days #60 tabs 06/21/24 aspirin 81 mg tablet,delayed 81 mg PO DAILY 30 days #30 tabs 06/21/24 release atorvastatin 10 mg tablet 10 mg PO HS 30 days #30 tabs 06/21/24 bumetanide 2 mg tablet 2 mg PO TID 30 days #90 tabs 06/21/24 cefdinir 300 mg capsule 300 mg PO BID 5 days #10 caps 06/21/24 diltiazem HCl 180 mg 360 mg (2 x 180 mg) PO DAILY 30 06/21/24 capsule,extended release 24 hr days #60 caps gabapentin 300 mg capsule 900 mg (3 x 300 mg) PO TID 30 days 06/21/24 #270 caps insulin glargine 100 unit/mL (3 60 unit (0.6 mL) SQ BID 30 days 06/21/24 mL) subcutaneous pen (Lantus #36 mL Solostar U-100 Insulin) irbesartan 75 mg tablet 37.5 mg (1/2 x 75 mg) PO DAILY 30 06/21/24 days #15 tabs metformin 500 mg tablet 500 mg PO BID #30 tabs 06/21/24 metoprolol succinate 100 mg 100 mg PO BID 30 days #60 tabs 06/21/24 tablet,extended release 24 hr pantoprazole 40 mg tablet,delayed 40 mg PO HS 30 days #30 tabs 06/21/24 release polyethylene glycol 3350 17 gram 17 g PO DAILY 30 days #30 ea 06/21/24 oral powder packet (HealthyLax) spironolactone 25 mg tablet 50 mg (2 x 25 mg) PO BIDL 30 days 06/21/24 #120 tabs clindamycin HCl 300 mg capsule 300 mg PO TID 7 days #21 caps 06/22/24 Allergies Allergy/AdvReac Type Severity Reaction Status Date / Time hydromorphone (From Dilaudid) AdvReac Vomiting Verified 07/17/24 13:54 morphine AdvReac Vomiting Verified 07/17/24 13:54 PFSH [facility] Disclaimer: The information contained in this section may have been updated after the patient was seen, as this information can be updated by other users. 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: No Are you experiencing any unusual bleeding?: No Do you have any muscle aches/pain?: No Do you have any abdominal pain?: No Are you experiencing loss of taste or smell?: No Other Medical History Have you received the Flu Vaccine for this season: No Have you received the Pneumonia Vaccine: No ROS Obtained: Yes Systems reviewed as appropriate & no additional complaints except as documented Physical Exam General General appearance: alert and in no apparent distress Head Head exam: atraumatic and normocephalic Eye Eye exam: Present PERRL ENT ENT exam: Present mucous membranes moist Neck Neck exam: Present normal inspection Chest Chest inspection: Present normal inspection and symmetric chest wall rise Respiratory Respiratory exam: Present normal lung sounds bilaterally; Absent respiratory distress Cardiovascular Cardiovascular exam: Present regular rate and normal rhythm Abdominal Exam Abdominal exam: Present soft; Absent tenderness Extremities Exam Extremities exam: Present other (Frankly edematous large bilateral lower extremities with changes consistent with venous stasis. There is fluid-filled blisters some of which are open and weeping some which are closed. Right lower extremity distal to the knee is more erythematous and warm compared to the left.) Neurological Exam Neurological exam: Present alert Psychiatric Psychiatric exam: Present normal affect Skin Skin exam: Present warm and dry Medical Decision Making Medical Records Screening: Per USPSTF and CDC recommendations, given the prevalence of disease in our region, it is our hospital?s policy to screen for HIV and viral Hepatitis for all patients aged 18 and over and those with ongoing risk factors. Madi Inquiry Pt receiving controlled substance: No Vital Signs: 07/17/24 13:30 07/17/24 13:36 07/17/24 14:39 Temperature 98.4 F Temperature Source Oral Pulse Rate 77 91 H Pulse Rate [Right] 83 Respiratory Rate 18 Blood Pressure 150/69 H Blood Pressure [Right Arm] 150/69 H Blood Pressure Mean [Right Arm] 96 Blood Pressure Source [Right Arm] Automatic Cuff Blood Pressure Position [Right Arm] Supine 02 Sat by Pulse Oximetry 99 98 100 Oxygen Delivery Method Room Air Room Air Room Air 07/17/24 14:40 07/17/24 15:00 07/17/24 15:30 Temperature Temperature Source Pulse Rate 77 82 75 Pulse Rate [Right] Respiratory Rate Blood Pressure 127/76 112/67 129/71 Blood Pressure [Right Arm] Blood Pressure Mean [Right Arm] Blood Pressure Source [Right Arm] Blood Pressure Position [Right Arm] 02 Sat by Pulse Oximetry 99 99 99 Oxygen Delivery Method Room Air Room Air Room Air Lab Data Lab Results 07/17/24 13:55: WBC 9.9, RBC 4.43 L, Hgb 11.1 L, Hct 36.0 L, MCV 81.3, MCH 25.1 L, MCHC 30.8 L, RDW 16.6, Plt Count 275, MPV 9.1, Neut % (Auto) 73.6, Lymph % (Auto) 16.4, Runnels % (Auto) 5.5, Eos % (Auto) 3.6, Baso % (Auto) 0.5, Neut # (Auto) 7.3, Lymph # (Auto) 1.6, Runnels # (Auto) 0.5, Eos # (Auto) 0.4, Baso # (Auto) 0.1, Sodium 138, Potassium 4.9, Chloride 100, Carbon Dioxide 30, Anion Gap 12.9, BUN 30 H, Creatinine 1.20, Estimated Creat Clear 75, Estimated GFR 61, Est GFR ( Amer) 74, Glucose 224 H, Calcium 9.4, Total Bilirubin 0.4, AST 21, ALT 15, Alkaline Phosphatase 124, C-Reactive Protein 40.0 H, Total Protein 7.4, Albumin 3.8, Globulin 3.6 H, Albumin/Globulin Ratio 1.1 07/17/24 13:55 07/17/24 13:55 Orders (Tests/Meds): ED MEDICATIONS Generic Name Dose Route Start Last Admin Trade Name Freq PRN Reason Stop Dose Admin Apixaban 5 mg 07/17/24 21:00 Apixaban 5mg Tablet PO 08/16/24 20:59 BID JESSICA Atorvastatin Calcium 10 mg 07/17/24 21:00 Atorvastatin 10mg Tablet PO 08/16/24 20:59 HS JESSICA Bumetanide 2 mg 07/17/24 15:46 Bumetanide 1mg/4ml Vial IV 07/17/24 15:47 ONCE ONE Diltiazem HCl 360 mg 07/18/24 09:00 Diltiazem Hcl 180mg Cap.Er.24h PO 08/17/24 08:59 DAILY [facility] Gabapentin 900 mg 07/17/24 21:00 Gabapentin 300mg Capsule PO 08/16/24 20:59 TID [facility] Vancomycin HCl 3,000 mg/ 500 mls @ 250 mls/hr 07/17/24 14:00 07/17/24 14:40 Sodium Chloride IV 07/17/24 15:59 250 mls/hr ONCE ONE Administration Bumetanide 10 mg/ Sodium 100 mls @ 20 mls/hr 07/17/24 15:46 Chloride IV 08/16/24 15:45 .Q5H [facility] Insulin Glargine 60 unit 07/17/24 21:00 Insulin Glargine 100 Units/Ml 3ml Flexpen SUBCUT 08/16/24 20:59 BID [facility] Metformin HCl 500 mg 07/17/24 21:00 Metformin 500mg Tablet PO 08/16/24 20:59 BID [facility] Metoprolol Succinate 100 mg 07/17/24 21:00 Metoprolol Succinate Xl 100mg Tablet PO 08/16/24 20:59 BID [facility] Miscellaneous 1 each 07/17/24 13:45 07/17/24 14:40 Vancomycin Consult Request NOTAPPLIC 08/16/24 13:44 1 each CONSULT PHARMACY [facility] Administration Pantoprazole Sodium 40 mg 07/17/24 21:00 Pantoprazole 40mg Tablet PO 08/16/24 20:59 HS [facility] Polyethylene Glycol 17 gm 07/18/24 09:00 Polyethylene Glycol 3350 17 Gm Packet PO 08/17/24 08:59 DAILY [facility] Spironolactone 100 mg 07/17/24 16:00 Spironolactone 25mg Tablet PO 08/16/24 15:59 BIDL [facility] Discontinued Medications Generic Name Dose Route Start Last Admin Trade Name Freq PRN Reason Stop Dose Admin Acetaminophen 1,000 mg 07/17/24 13:59 07/17/24 14:18 Acetaminophen 1,000mg/100ml Vial IV 07/17/24 14:00 1,000 mg ONCE ONE Administration Ketorolac Tromethamine 30 mg 07/17/24 13:59 07/17/24 14:18 Ketorolac 30mg/Ml Vial IV 07/17/24 14:00 30 mg ONCE ONE Administration Ondansetron HCl 4 mg 07/17/24 13:59 07/17/24 14:18 Ondansetron 4mg/2ml Vial IV 07/17/24 14:00 4 mg ONCE ONE Administration Oxycodone HCl 5 mg 07/17/24 14:51 07/17/24 14:57 Oxycodone 5mg Immediate Release Tablet PO 07/17/24 14:52 5 mg ONCE ONE Administration ORDERS Category Date Time Status CBC w/Auto Diff [Complete Blood Count Auto Diff] Stat Lab 07/17/24 13:55 Completed CMP [Comprehensive Metabolic Panel] Stat Lab 07/17/24 13:55 Completed CRP [C-Reactive Protein] Stat Lab 07/17/24 13:55 Completed Complete Blood Count Auto Diff [facility] Lab 07/18/24 06:00 Ordered Comprehensive Metabolic Panel [facility] Lab 07/18/24 06:00 Ordered Magnesium [facility] 07/18/24 06:00 Ordered Blood Culture Stat Micro 07/17/24 14:23 ORD Medical Decision Narrative: In summary patient is a 64-year-old male past medical history described above who presents emergency department for evaluation of bilateral lower extremity edema and weeping. Patient is hemodynamically stable nontoxic-appearing upon arrival, afebrile. Right lower extremity is more erythematous and warm compared to the left. I suspect that most of these changes are due to chronic venous stasis and medical noncompliance with his lymphedema regimen. However superimposed infection is on the differential for which vancomycin will be administered. Hematologic labs to be obtained. Patient request to go to [facility] for inpatient management. I agree patient will likely need inpatient management and will call [facility] per his request. Initial workup reviewed by me, hematologic labs are nonactionable, no significant leukocytosis no LUPE or critical electrolyte abnormality, mild hyperglycemia without evidence of DKA. CRP mildly elevated. The case was discussed with [facility], they are on extended wait list. Given this case was discussed with Dr. Wu regarding management who admit the patient to her service for continued evaluation at this time. Critical Care Critical Care Time Critical Care Time: No
[2024-07-17 14:03] LABS: Basophils # 0.1 K/mm3 (0-0.2); Basophils % 0.5 % (0.1-2.0); Eosinophils # 0.4 K/mm3 (0.0-0.4); Eosinophils % 3.6 % (0.1-12.0); Hemoglobin 11.1 g/dL (14.1-18.0); Lymphocytes # 1.6 K/mm3 (0.7-4.5); Lymphocytes % 16.4 % (10-50); Mean Corpuscular HGB Conc 30.8 g/dL (31.8-35.4); Mean Corpuscular Hemoglobin 25.1 pg (27.0-31.2); Mean Corpuscular Volume 81.3 fl (80-94); Mean Platelet Volume 9.1 fl (7.4-10.4); Monocytes # 0.5 K/mm3 (0.1-1.0); Monocytes % 5.5 % (1.7-9.3); Neutrophils # 7.3 K/mm3 (1.8-7.8); Neutrophils % 73.6 % (37.0-80.0); Platelet Count 275 K/mm3 (142-424); Red Blood Count 4.43 M/mm3 (4.60-6.20); Red Cell Distribution Width 16.6 % (11.5-17.5); White Blood Count 9.9 K/mm3 (4.8-10.8)
[2024-07-17] MEDS: ACETAMINOPHEN 1,000MG/100ML VIAL 1000 MG IV (14:18)
[2024-07-17] MEDS: KETOROLAC 30MG/ML VIAL 30 MG IV (14:18)
[2024-07-17] MEDS: ONDANSETRON 4MG/2ML VIAL 4 MG IV ×2 (14:18→21:06)
--- NOTE | 2024-07-17 14:20 | PC.NURSE ---
Spoke with Dr. Masterson related to need for blood cultures. States to obtain one set then start the antibiotic.
[2024-07-17 14:23] LABS: Albumin Level 3.8 g/dl (3.5-5.0); Chloride 100 mmol/L (98-107); Sodium 138 mmol/L (136-145)
[2024-07-17 14:24] LABS: Potassium 4.9 mmoL/L (3.5-5.1)
[2024-07-17 14:26] LABS: Alanine Aminotransferase 15 U/L (12-78); Anion Gap 12.9 mEq/L (5-15); Aspartate Amino Transferase 21 U/L (17-59); Bilirubin,Total 0.4 mg/dl (0.2-1.3); Blood Urea Nitrogen 30 mg/dl (9-20); Carbon Dioxide 30 mmol/L (22.0-30.0); Creatinine Clearance Estimated 75 mL/min (50-200); Estimated Glomerular Filt Rate 61 ml/min (>60); GFR (African American) 74 ML/MIN (>60)
[2024-07-17 14:27] LABS: Albumin/Globulin Ratio 1.1 (1.1-1.8); Alkaline Phosphatase 124 U/L (38-126); Calcium 9.4 mg/dl (8.4-10.2); Globulin 3.6 g/dL (1.3-3.2); Glucose 224 mg/dl (74-100); Total Protein,Serum 7.4 g/dl (6.3-8.2)
--- NOTE | 2024-07-17 14:39 | PC.NURSE ---
Called [facility] per Dr. Masterson for poss transfer. [facility] stated they would give us a call back.
[2024-07-17] MEDS: VANCOMYCIN CONSULT REQUEST 1 EACH NOTAPPLIC (14:40)
[2024-07-17] MEDS: SODIUM CHLORIDE 0.9% IV (14:40)
[2024-07-17] MEDS: VANCOMYCIN HCL IV (14:40)
[2024-07-17] MEDS: OXYCODONE 5MG IMMEDIATE RELEASE TABLET 5 MG PO (14:57)
--- NOTE | 2024-07-17 15:21 | PC.NURSE ---
HOSPITALIST AT BEDSIDE
--- NOTE | 2024-07-17 15:45 | P.HP_ITS ---
History of Present Illness *Admission Date: 07/17/24 *Reason for visit:: leg swelling and pain *History of present illness: Mr. Christiansen is a 64-year-old male who was recently moved to the area to live with his sister due to poor health and declining status living with family in [place]. He has a history of morbid obesity, CHF, diabetes, LORI. Had developed significant debility and numerous pressure wounds. Was previously admitted to our facility a month ago for volume overload and swelling in his legs. Reported worsening weakness. After a week admission with diuresis, was discharged home with plan for outpatient follow-up. Had previously been seen at [facility] multiple times and even spent 6 weeks hospitalized at [facility] for heart failure, infected decubitus wounds, osteomyelitis of his foot status post amputation, and significant debility. He discharged to rehab for several weeks and then got readmitted to [facility] for 3 more weeks due to recurrent heart failure and volume overload. Was not a candidate for rehab placement after that admission and discharged home where he has been for approximately 3 weeks. Has not had follow-up as an outpatient with PCP or specialists as of yet. Was admitted to our facility a month ago, states he was home for a few days and then got readmitted to [facility] for about 3 weeks. After getting out took a trip to [place] and just got back yesterday and noted increased weeping from his right leg. States he did not take his diuretics during his travels due to difficulty with finding a bathroom. Having increased pain and weeping from right leg in particular. Denies any fever or chills. No shortness of breath. On room air at time presentation to the ED. Patient's mobility limited by swelling in his feet and legs, morbid obesity. Of note, received stents in his lower extremities due to peripheral artery disease during one of his previous hospitalizations. Diabetes has been poorly controlled as he has not had a glucometer. On evaluation, patient appears in mild distress. Is morbidly obese and chronically ill. Able to answer questions and speak in complete sentences without dyspnea. On room air with sats in the mid 80s. Currently receiving a dose of IV vancomycin. Discussed discharging home with increased diuretic regimen versus admission for diuretic drip. Patient does not have a ride home as his vehicle broke down on his recent trip to [place]. Due to complex combination of medical conditions and social hurdles, patient will be admitted for management. [facility] Disclaimer: The information contained in this section may have been updated after the patient was seen, as this information can be updated by other users. 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 Social History Smoking Status: Never smoker alcohol intake: never current occupational status: retired and disabled Travel in the last 8 weeks: None Have you lived/traveled outside US in past 30 days?: No Contact w/someone who lives/traveled outside US past 30 days?: No Exposure to someone with infectious disease in past 14 days?: No Do you have a fever (greater than 100.4 F or 38 C)?: No Have you tested positive for COVID-19: No Exposed to someone with COVID-19 in past 14 days?: No Do you have a sore throat?: No Do you have a cough?: No Do you have any weakness?: No Do you have any diarrhea?: No Are you experiencing any unusual bleeding?: No Do you have any muscle aches/pain?: No Do you have any abdominal pain?: No Are you experiencing loss of taste or smell?: No Other Medical History Have you received the Flu Vaccine for this season: No Have you received the Pneumonia Vaccine: No Review of Systems Review of Systems Review of systems (narrative): 14 point review of systems performed, pertinent positives and negatives as per HPI Meds Home Medications and Allergies Home Medications ?Medication ?Instructions ?Recorded ?Confirmed ?Type apixaban 5 mg tablet (Eliquis) 5 mg PO BID 30 days #60 tabs 06/21/24 Rx aspirin 81 mg tablet,delayed 81 mg PO DAILY 30 days #30 tabs 06/21/24 Rx release atorvastatin 10 mg tablet 10 mg PO HS 30 days #30 tabs 06/21/24 Rx bumetanide 2 mg tablet 2 mg PO TID 30 days #90 tabs 06/21/24 Rx cefdinir 300 mg capsule 300 mg PO BID 5 days #10 caps 06/21/24 Rx diltiazem HCl 180 mg 360 mg (2 x 180 mg) PO DAILY 30 06/21/24 Rx capsule,extended release 24 hr days #60 caps gabapentin 300 mg capsule 900 mg (3 x 300 mg) PO TID 30 days 06/21/24 Rx #270 caps insulin glargine 100 unit/mL (3 60 unit (0.6 mL) SQ BID 30 days 06/21/24 Rx mL) subcutaneous pen (Lantus #36 mL Solostar U-100 Insulin) irbesartan 75 mg tablet 37.5 mg (1/2 x 75 mg) PO DAILY 30 06/21/24 Rx days #15 tabs metformin 500 mg tablet 500 mg PO BID #30 tabs 06/21/24 Rx metoprolol succinate 100 mg 100 mg PO BID 30 days #60 tabs 06/21/24 Rx tablet,extended release 24 hr pantoprazole 40 mg tablet,delayed 40 mg PO HS 30 days #30 tabs 06/21/24 Rx release polyethylene glycol 3350 17 gram 17 g PO DAILY 30 days #30 ea 06/21/24 Rx oral powder packet (HealthyLax) spironolactone 25 mg tablet 50 mg (2 x 25 mg) PO BIDL 30 days 06/21/24 Rx #120 tabs clindamycin HCl 300 mg capsule 300 mg PO TID 7 days #21 caps 06/22/24 Rx New Prescriptions to Start Prescriptions: Allergies Allergy/AdvReac Type Severity Reaction Status Date / Time hydromorphone (From Dilaudid) AdvReac Vomiting Verified 07/17/24 13:54 morphine AdvReac Vomiting Verified 07/17/24 13:54 Exam Data for Last 24 hours Vital signs and Labs for Last 24 Hours: Temp Pulse Resp BP Pulse Ox O2 Del Method 98.4 F 75 18 129/71 99 Room Air 07/17/24 13:36 07/17/24 15:30 07/17/24 13:36 07/17/24 15:30 07/17/24 15:30 07/17/24 15:30 Laboratory Results - last 24 hr 07/17/24 13:55: WBC 9.9, RBC 4.43 L, Hgb 11.1 L, Hct 36.0 L, MCV 81.3, MCH 25.1 L, MCHC 30.8 L, RDW 16.6, Plt Count 275, MPV 9.1, Neut % (Auto) 73.6, Lymph % (Auto) 16.4, [place] % (Auto) 5.5, Eos % (Auto) 3.6, Baso % (Auto) 0.5, Neut # (Auto) 7.3, Lymph # (Auto) 1.6, [place] # (Auto) 0.5, Eos # (Auto) 0.4, Baso # (Auto) 0.1, Sodium 138, Potassium 4.9, Chloride 100, Carbon Dioxide 30, Anion Gap 12.9, BUN 30 H, Creatinine 1.20, Estimated Creat Clear 75, Estimated GFR 61, Est GFR ( Amer) 74, Glucose 224 H, Calcium 9.4, Total Bilirubin 0.4, AST 21, ALT 15, Alkaline Phosphatase 124, C-Reactive Protein 40.0 H, Total Protein 7.4, Albumin 3.8, Globulin 3.6 H, Albumin/Globulin Ratio 1.1 I & O for Last 24 hours: Intake & Output 07/14/24 07/15/24 07/16/24 07/17/24 23:59 23:59 23:59 23:59 Weight 192.777 kg Constitutional Constitutional: mild distress, morbidly obese, chronically ill appearing, disheveled and cooperative *Routine HEENT Exam Head: Present normocephalic Eye: Present EOMI and PERRL ENT: Present mucous membranes moist *Routine Neck Exam Neck: Present supple; Absent lymphadenopathy *Routine Respiratory Exam Respiratory: Present prolonged expiratory phase, rhonchi, crackles (bases) and distant breath sounds; Absent wheezes *Routine Cardiovascular Exam Cardiovascular: Present RRR *Routine Abdominal Exam Abdominal: Present soft, normoactive bowel sounds and obese; Absent tenderness *Routine Rectal Exam Rectal:: deferred *Routine Genitalia Exam Genitalia:: deferred *Routine Extremities Exam Extremities: Present edema (3+ to thighs) and tenderness (Bilateral lower extremities. No significant warmth but legs are red from stasis); Absent cyanosis or clubbing *Routine Skin Exam Skin: Present cyanosis (Left foot), erythema (up left leg to thigh), warm, le sions, wounds and rash; Absent mottling Comments: Stasis changes in bilateral lower extremities. Ulcerations posterior lower extremities bilaterally with weeping of serous fluid. Numerous excoriations on extremities and torso *Routine Neurological Exam Neurological: Present alert, oriented X3 and moving all extremities; Absent altered mental status Assessment and Plan *Assessment and plan (1) Acute on chronic heart failure with preserved ejection fraction (HFpEF): Status: Acute Category: Medical Code(s): I50.33 - Acute on chronic diastolic (congestive) heart failure (2) Morbid obesity with BMI of 50.0-59.9, adult: Status: Acute Category: Medical Code(s): E66.01 - Morbid (severe) obesity due to excess calories; Z68.43 - Body mass index [BMI] 50.0-59.9, adult (3) Volume overload: Status: Acute Qualifiers: Hypervolemia type: unspecified Qualified Code(s): E87.70 - Fluid overload, unspecified Category: Medical Code(s): E87.70 - Fluid overload, unspecified (4) Venous stasis ulcer of both lower extremities without varicose veins: Status: Acute Category: Medical Code(s): I87.2 - Venous insufficiency (chronic) (peripheral); L97.919 - Non-pressure chronic ulcer of unspecified part of right lower leg with unspecified severity; L97.929 - Non-pressure chronic ulcer of unspecified part of left lower leg with unspecified severity (5) Cellulitis of left lower extremity: Status: Acute Category: Medical Code(s): L03.116 - Cellulitis of left lower limb (6) Microcytic anemia: Status: Acute Category: Medical Code(s): D50.9 - Iron deficiency anemia, unspecified (7) Adult failure to thrive: Status: Acute Category: Medical Code(s): R62.7 - Adult failure to thrive (8) LORI (obstructive sleep apnea): Status: Acute Category: Medical Code(s): G47.33 - Obstructive sleep apnea (adult) (pediatric) (9) Diabetes mellitus: Status: Acute Qualifiers: Diabetes mellitus complication status: with hyperglycemia Diabetes mellitus assistant terminal manager insulin use: without group home use Diabetes mellitus type: type 2 Qualified Code(s): E11.65 - Type 2 diabetes mellitus with hyperglycemia Category: Medical Code(s): E11.9 - Type 2 diabetes mellitus without complications (10) Sacral wound: Status: Acute Qualifiers: Encounter type: initial encounter Qualified Code(s): S31.000A - Unspecified open wound of lower back and pelvis without penetration into retroperitoneum, initial encounter Category: Medical Code(s): S31.000A - Unspecified open wound of lower back and pelvis without penetration into retroperitoneum, initial encounter Plan 64-year-old male with morbid obesity, acute on chronic HFpEF, volume overload, lower extremity erythema. Discussed case with ER physician. Requested admission for further management of fluid status. Patient's physical and social barriers necessitated him to be admitted. I agreed to admit for further care. Initiate Bumex drip. Monitor urine output and electrolytes over the next 2 to 3 days. Problems addressed as follows: Acute on Chronic HFpEF Atrial fibrillation Hypertension -Heart rate appears controlled at this time. Appears frankly volume overloaded. BNP pending -Weight down at least 8 kg from last admission. -Initiate Bumex drip 2 mg/h after 2 mg IV once load. Strict I's and O's -Fluid restrict to 2 L a day -Continue spironolactone 100 mg twice daily -Continue oral diltiazem 360 mg daily and metoprolol succinate 100 mg twice daily - Eliquis 5 mg twice daily. -Continue aspirin 81 mg daily for PAD. -Echo obtained last visit with severe diastolic dysfunction but preserved ejection fraction. - Electrolytes normal with sodium 138, potassium 4.9, chloride 100. BUN 30, creatinine 1.2. Glucose elevated at 224. CRP 40, improved from last admission Diabetes: - A1c 9.9 1 month ago. Repeat A1c ordered for the morning.. Continue high intensity sliding scale insulin with fingersticks ACHS. Continue Lantus to 60 units twice daily. -Glucose 224 on presentation. -Diabetic diet of 1500 jone -Holding Jardiance due to risk for Marilin's gangrene given groin wounds and retracted penis Cellulitis versus stasis erythema/edema -White count normal at 9.9, CRP 40, improved from last admission. Patient afebrile. Received vancomycin in the ED. Will hold on further treatment pending response to diuresis. -Wound care consulted to assist with management of ulcerations on legs. - Repeat CBC, CMP, ESR and CRP ordered for the morning - Wound care assisting with ulcerations on legs. Erythema somewhat better in left lower leg - If wounds on foot worsen, will consider podiatry consult. -Continue dry dressing on wounds Microcytic anemia: Hemoglobin 11.1, improved from last admission. White count normal at 9.9. No neutrophil predominance. Platelets 275. Previous iron studies showed low levels. Transfusion threshold hemoglobin less than 7 LORI: Consider oxygen at night versus CPAP after discussion with patient about his home regimen. On room air at this time; goal sats greater 90% Morbid obesity complicates all aspects of his care. PT and OT consulted along with social work to assist with dispo planning in next site of care Wound care consulted to assist with legs and stasis ulcers Full code eliquis 5mg BID Diabetic diet
[2024-07-17] MEDS: BUMETANIDE 1MG/4ML VIAL 2 MG IV (16:33)
[2024-07-17] MEDS: BUMETANIDE 10 MG in 0.9 % SODIUM CHLORIDE 60 ML 20 MG IV ×2 (16:33→21:55)
[2024-07-17] MEDS: SPIRONOLACTONE 25MG TABLET 100 MG PO (17:37)
--- NOTE | 2024-07-17 17:39 | PC.NURSE ---
AOX4, UP TO CHAIR. AMBULATED TO RESTROOM WITH WALKER. REFUSED BARIATRIC BED. MALE PUREWICK IN PLACE.
[2024-07-17 18:10] LABS: NT Pro Brain Natriuretic Pep. 1030 pg/mL (0-125)
[2024-07-17] MEDS: APIXABAN 5MG TABLET 5 MG PO (20:43)
[2024-07-17] MEDS: PANTOPRAZOLE 40MG TABLET 40 MG PO (20:43)
[2024-07-17] MEDS: METFORMIN 500MG TABLET 500 MG PO (20:43)
[2024-07-17] MEDS: GABAPENTIN 300MG CAPSULE 900 MG PO (20:43)
[2024-07-17] MEDS: INSULIN GLARGINE 100 UNITS/ML 3ML FLEXPEN 60 UNIT SUBCUT (20:44)
[2024-07-17] MEDS: humaLOG 100 UNITS/ML 10ML VIAL (SSI) SUBCUT (20:45)
[2024-07-17] MEDS: METOPROLOL SUCCINATE XL 100MG TABLET 100 MG PO (20:47)
[2024-07-17 20:49] LABS: POC Glucose,Bedside 282 (70-110)
--- NOTE | 2024-07-17 21:00 | PC.NURSE ---
Pt c/o severe pain in legs, Ashia Carl APRn contacted at this time, new orders obtained (see MAR)
[2024-07-17] MEDS: HYDROCODONE/APAP 5/325 MG TABLET 2 TAB PO (21:06)
[2024-07-18] MEDS: BUMETANIDE 10 MG in 0.9 % SODIUM CHLORIDE 60 ML 20 MG IV ×5 (02:34→21:11)
[2024-07-18] MEDS: HYDROCODONE/APAP 5/325 MG TABLET 2 TAB PO ×5 (02:34→20:49)
[2024-07-18 04:00] VITALS: BP 124/74; PULSE 86; RESP 16; TEMP 36.9; O2SAT 97; BMI 53.4
[2024-07-18 06:45] LABS: POC Glucose,Bedside 144 (70-110)
[2024-07-18] MEDS: ONDANSETRON 4MG/2ML VIAL 4 MG IV ×2 (06:49→23:54)
[2024-07-18 06:53] LABS: Basophils # 0.1 K/mm3 (0-0.2); Basophils % 0.7 % (0.1-2.0); Eosinophils # 0.5 K/mm3 (0.0-0.4); Hematocrit 39.5 % (42.0-52.0); Hemoglobin 11.9 g/dL (14.1-18.0); Lymphocytes # 2.8 K/mm3 (0.7-4.5); Lymphocytes % 20.8 % (10-50); Mean Corpuscular HGB Conc 30.1 g/dL (31.8-35.4); Mean Corpuscular Volume 79.6 fl (80-94); Mean Platelet Volume 9.4 fl (7.4-10.4); Monocytes # 0.8 K/mm3 (0.1-1.0); Monocytes % 5.6 % (1.7-9.3); Neutrophils # 9.2 K/mm3 (1.8-7.8); Neutrophils % 68.5 % (37.0-80.0); Platelet Count 357 K/mm3 (142-424); Red Blood Count 4.96 M/mm3 (4.60-6.20); Red Cell Distribution Width 16.6 % (11.5-17.5); White Blood Count 13.4 K/mm3 (4.8-10.8)
[2024-07-18 07:05] LABS: Alanine Aminotransferase 17 U/L (12-78); Albumin Level 4.1 g/dl (3.5-5.0); Alkaline Phosphatase 108 U/L (38-126); Anion Gap 15.2 mEq/L (5-15); Aspartate Amino Transferase 22 U/L (17-59); Bilirubin,Total 0.6 mg/dl (0.2-1.3); Blood Urea Nitrogen 27 mg/dl (9-20); Calcium 9.2 mg/dl (8.4-10.2); Carbon Dioxide 31 mmol/L (22.0-30.0); Chloride 96 mmol/L (98-107); Creatinine Clearance Estimated 82 mL/min (50-200); Estimated Glomerular Filt Rate 68 ml/min (>60); GFR (African American) 82 ML/MIN (>60); Globulin 4.2 g/dL (1.3-3.2); Glucose 152 mg/dl (74-100); Magnesium 1.8 mg/dl (1.6-2.3); Potassium 4.2 mmoL/L (3.5-5.1); Sodium 138 mmol/L (136-145); Total Protein,Serum 8.3 g/dl (6.3-8.2)
[2024-07-18 07:09] LABS: Hemoglobin A1C 9.8 % (4.0-6.0)
--- NOTE | 2024-07-18 07:38 | HMH.PHAINT1 ---
Pharmacy Intervention Comments: MEDICATION RECONCILIATION COMPLETED ON PATIENT USING EXTERNAL FILL HISTORY FROM PHARMACY AND DISCHARGE SUMMARY FROM PREVIOUS ADMISSION. -LISA CALDERON, JEANCARLOSD
[2024-07-18 07:41] VITALS: BP 157/78; PULSE 88; RESP 21; TEMP 37.2; O2SAT 97
--- NOTE | 2024-07-18 08:45 | EXP.ACUTE.PN ---
Subjective *Date: 07/18/24 *Time: 08:49 Interval history: Remained stable on room air. Showing response to diuresis. -3.5 L since admission. Patient feeling better. Legs less red today. No nausea or vomiting. Medical Exam Vital signs and Labs for Last 24 Hours: Vital Signs Temp Pulse Pulse Resp BP BP Pulse Ox 07/18/24 07:41 98.9 F 88 21 157/78 H 97 07/18/24 06:41 07/18/24 05:00 07/18/24 04:00 98.5 F 86 16 124/74 97 07/18/24 03:00 07/18/24 01:00 07/17/24 23:00 07/17/24 21:00 07/17/24 20:00 07/17/24 20:00 97.9 F 97 H 16 129/90 88 L 07/17/24 18:32 07/17/24 16:45 98.4 F 65 18 110/61 99 07/17/24 16:13 98.7 F 75 16 129/71 07/17/24 16:00 71 110/61 100 07/17/24 15:30 75 129/71 99 07/17/24 15:00 82 112/67 99 07/17/24 14:40 77 127/76 99 07/17/24 14:39 91 H 100 07/17/24 13:36 98.4 F 83 18 150/69 H 98 07/17/24 13:30 77 150/69 H 99 O2 Del Method 07/18/24 07:41 Room Air 07/18/24 06:41 Room Air 07/18/24 05:00 Room Air 07/18/24 04:00 Room Air 07/18/24 03:00 Room Air 07/18/24 01:00 Room Air 07/17/24 23:00 Room Air 07/17/24 21:00 Room Air 07/17/24 20:00 Room Air 07/17/24 20:00 Room Air 07/17/24 18:32 Room Air 07/17/24 16:45 Room Air 07/17/24 16:13 Room Air 07/17/24 16:00 Room Air 07/17/24 15:30 Room Air 07/17/24 15:00 Room Air 07/17/24 14:40 Room Air 07/17/24 14:39 Room Air 07/17/24 13:36 Room Air 07/17/24 13:30 Room Air Intake and Output 07/17/24 07/18/24 07/18/24 23:59 07:59 15:59 Intake Total 750 / 1110 538.333 / 1078.333 540 / 1078.333 Output Total 3700 / 4000 1100 / 1100 Balance -2950 / -2890 -561.667 / -21.667 540 / -21.667 Intake: Intake, Oral Amount 650 / 1010 360 / 900 540 / 900 Intake, Total IV Amount 100 / 100 178.333 / 178.333 Output: Output, Urine Amount 3700 / 4000 1100 / 1100 Other: Number of Unmeasured Voids 0 0 Weight 198.9 kg 194.79 kg Patient Weight 07/18/24 23:59 Weight 194.79 kg Laboratory Results - last 24 hr 07/17/24 13:55: WBC 9.9, RBC 4.43 L, Hgb 11.1 L, Hct 36.0 L, MCV 81.3, MCH 25.1 L, MCHC 30.8 L, RDW 16.6, Plt Count 275, MPV 9.1, Neut % (Auto) 73.6, Lymph % (Auto) 16.4, [place] % (Auto) 5.5, Eos % (Auto) 3.6, Baso % (Auto) 0.5, Neut # (Auto) 7.3, Lymph # (Auto) 1.6, [place] # (Auto) 0.5, Eos # (Auto) 0.4, Baso # (Auto) 0.1, Sodium 138, Potassium 4.9, Chloride 100, Carbon Dioxide 30, Anion Gap 12.9, BUN 30 H, Creatinine 1.20, Estimated Creat Clear 75, Estimated GFR 61, Est GFR ( Amer) 74, Glucose 224 H, Calcium 9.4, Total Bilirubin 0.4, AST 21, ALT 15, Alkaline Phosphatase 124, C-Reactive Protein 40.0 H, NT-Pro-B Natriuret Pep 1030 H, Total Protein 7.4, Albumin 3.8, Globulin 3.6 H, Albumin/Globulin Ratio 1.1 07/17/24 20:38: POC Glucose 282 H 07/18/24 05:21: POC Glucose 144 H 07/18/24 06:18: WBC 13.4 H D, RBC 4.96, Hgb 11.9 L, Hct 39.5 L, MCV 79.6 L, MCH 24.0 L, MCHC 30.1 L, RDW 16.6, Plt Count 357 D, MPV 9.4, Neut % (Auto) 68.5, Lymph % (Auto) 20.8, [place] % (Auto) 5.6, Eos % (Auto) 4.0, Baso % (Auto) 0.7, Neut # (Auto) 9.2 H, Lymph # (Auto) 2.8, [place] # (Auto) 0.8, Eos # (Auto) 0.5 H, Baso # (Auto) 0.1, Sodium 138, Potassium 4.2, Chloride 96 L, Carbon Dioxide 31 H, Anion Gap 15.2 H, BUN 27 H, Creatinine 1.10, Estimated Creat Clear 82, Estimated GFR 68, Est GFR ( Amer) 82, Glucose 152 H D, Hemoglobin A1c 9.8 H, Calcium 9.2, Magnesium 1.8, Total Bilirubin 0.6, AST 22, ALT 17, Alkaline Phosphatase 108, Total Protein 8.3 H, Albumin 4.1, Globulin 4.2 H, Albumin/Globulin Ratio 1.0 L I & O for Labs for Last 24 Hours: Intake & Output 07/15/24 07/16/24 07/17/24 07/18/24 23:59 23:59 23:59 23:59 Intake Total 750 / 1110 1078.333 / 1078.333 Output Total 3700 / 4000 1100 / 1100 Balance -2950 / -2890 -21.667 / -21.667 Weight 198.9 kg 194.79 kg Constitutional: Present no acute distress, morbidly obese, chronically ill appearing and cooperative Head: Present atraumatic and normocephalic ENT: Present normal exam Respiratory: Present distant breath sounds and normal respiratory effort; Absent accessory muscle use, respiratory distress, stridor, wheezes or crackles Cardiac: Present Reg Rate and Rhythm Comment:: Irregularly irregular, tachycardic GI: Present soft, distention and normal bowel sounds; Absent tenderness Rectal (male): Present normal inspection Comment:: Unable to find penis due to prominent suprapubic fat pad. Severely retracted. Comment:: Chronic stasis changes, legs and bandages with improved erythema. Still has 3+ edema to thighs. Improved weeping of legs Skin: Present erythema (Bilateral lower legs) and wounds Comment:: Numerous scabbed lesions on arms and torso Neuro: Present Grossly Intact, alert, awake, oriented x 3 and moves all extremities Assessment and Plan *Assessment and plan (1) Acute on chronic heart failure with preserved ejection fraction (HFpEF): Status: Acute Category: Medical Code(s): I50.33 - Acute on chronic diastolic (congestive) heart failure (2) Morbid obesity with BMI of 50.0-59.9, adult: Status: Acute Category: Medical Code(s): E66.01 - Morbid (severe) obesity due to excess calories; Z68.43 - Body mass index [BMI] 50.0-59.9, adult (3) Volume overload: Status: Acute Qualifiers: Hypervolemia type: unspecified Qualified Code(s): E87.70 - Fluid overload, unspecified Category: Medical Code(s): E87.70 - Fluid overload, unspecified (4) Venous stasis ulcer of both lower extremities without varicose veins: Status: Acute Category: Medical Code(s): I87.2 - Venous insufficiency (chronic) (peripheral); L97.919 - Non-pressure chronic ulcer of unspecified part of right lower leg with unspecified severity; L97.929 - Non-pressure chronic ulcer of unspecified part of left lower leg with unspecified severity (5) Cellulitis of left lower extremity: Status: Acute Category: Medical Code(s): L03.116 - Cellulitis of left lower limb (6) Microcytic anemia: Status: Acute Category: Medical Code(s): D50.9 - Iron deficiency anemia, unspecified (7) Adult failure to thrive: Status: Acute Category: Medical Code(s): R62.7 - Adult failure to thrive (8) LORI (obstructive sleep apnea): Status: Acute Category: Medical Code(s): G47.33 - Obstructive sleep apnea (adult) (pediatric) (9) Diabetes mellitus: Status: Acute Qualifiers: Diabetes mellitus complication status: with hyperglycemia Diabetes mellitus intermediate insulin use: without ad terminal makeup operator use Diabetes mellitus type: type 2 Qualified Code(s): E11.65 - Type 2 diabetes mellitus with hyperglycemia Category: Medical Code(s): E11.9 - Type 2 diabetes mellitus without complications (10) Sacral wound: Status: Acute Qualifiers: Encounter type: initial encounter Qualified Code(s): S31.000A - Unspecified open wound of lower back and pelvis without penetration into retroperitoneum, initial encounter Category: Medical Code(s): S31.000A - Unspecified open wound of lower back and pelvis without penetration into retroperitoneum, initial encounter Plan 64-year-old male with morbid obesity, acute on chronic HFpEF, volume overload, lower extremity erythema. Discussed case with ER physician. Requested admission for further management of fluid status. Patient's physical and social barriers necessitated him to be admitted. I agreed to admit for further care. Continue Bumex drip. Monitoring urine output. Given his clinical response instability today, anticipate discharge tomorrow with adjustments of home diuretic regimen. Problems addressed as follows: Acute on Chronic HFpEF Atrial fibrillation Hypertension -Heart rate appears controlled at this time. Appears frankly volume overloaded. BNP 1000 -Down 3.5 L overnight. Continue Bumex drip 2 mg/h - Fluid restrict to 2 L a day -Continue spironolactone 100 mg twice daily -Continue oral diltiazem 360 mg daily and metoprolol succinate 100 mg twice daily - Eliquis 5 mg twice daily. -Continue aspirin 81 mg daily for PAD. -Echo obtained last visit with severe diastolic dysfunction but preserved ejection fraction. -Electrolytes stable this morning with sodium 138, potassium 4.2, magnesium 1.8. Kidney function stable with BUN 27, creatinine 1.1. -Repeat CBC, CMP, magnesium ordered for the morning Diabetes: - A1c 9. 8 on admission. Continue Lantus 60 units twice daily. Continue sliding scale high intensity. Will consider scheduled mealtime at discharge -Morning glucose 152 -Increase metformin to 1000 mg twice daily -Diabetic diet of 1500 jone -Holding Jardiance due to risk for Marilin's gangrene given groin wounds and retracted penis Cellulitis versus stasis erythema/edema -White count slightly up this morning at 13.4. Patient afebrile. CRP was 40 on admission. Received antibiotics in the ED. Legs actually appear clinically better today with improved erythema after diuresis. -Wound care consulted to assist with management of ulcerations on legs. - Repeat CBC, CMP, ESR and CRP ordered for the morning - Wound care assisting with ulcerations on legs. Erythema somewhat better in left lower leg - If wounds on foot worsen, will consider podiatry consult. - Continue dry dressing on wounds Microcytic anemia: Hemoglobin 11.9, improved from last admission. Platelets 357. Previous iron studies showed low levels. Transfusion threshold hemoglobin less than 7 LORI: Consider oxygen at night versus CPAP after discussion with patient about his home regimen. On room air at this time; goal sats greater 90% Morbid obesity complicates all aspects of his care. PT and OT consulted along with social work to assist with dispo planning in next site of care Wound care consulted to assist with legs and stasis ulcers Full code eliquis 5mg BID Diabetic diet
[2024-07-18] MEDS: dilTIAZem HCL 180MG CAP.ER.24H 360 MG PO (08:51)
[2024-07-18] MEDS: APIXABAN 5MG TABLET 5 MG PO ×2 (08:55→20:49)
[2024-07-18] MEDS: SPIRONOLACTONE 25MG TABLET 100 MG PO ×2 (08:55→15:50)
[2024-07-18] MEDS: GABAPENTIN 300MG CAPSULE 900 MG PO ×3 (08:56→20:48)
[2024-07-18] MEDS: METOPROLOL SUCCINATE XL 100MG TABLET 150 MG PO (08:56)
[2024-07-18] MEDS: INSULIN GLARGINE 100 UNITS/ML 3ML FLEXPEN 60 UNIT SUBCUT ×2 (09:05→20:50)
--- NOTE | 2024-07-18 10:46 | HMH.PTEV ---
Physical Therapy Evaluation Rehab PT IP Evaluation Start: 07/17/24 15:51 Freq: ONCE Status: Active Protocol: Document 07/18/24 10:27 NANCY (Rec: 07/18/24 10:46 NANCY [id number]) Subjective/History History History 64-year-old male who was recently moved to the area to live with his sister due to poor health and declining status living with family in [place]. He has a history of morbid obesity, CHF, diabetes, LORI. Had developed significant debility and numerous pressure wounds. Was previously admitted to our facility a month ago for volume overload and swelling in his legs. Pt reports he lives with family, ramp to enter the home, and he is able to ambulate short household distances with walker. He does typically use a w/c for long distance mobility. He presents with wounds to B lower legs and posterior R thigh upon admission. Subjective Subjective Pt reports increased pain in B lower legs this am, but otherwise feeling better. [facility] How much help from another person do you currently need... Turning from your back to your side None while in a flat bed without using bedrails? Moving from lying on back to sitting on None the side of a flat bed without using bedrails? Moving to and from a bed to a chair ( A little including a wheelchair)? Standing up from a chair using your arms A little ? (e.g., wheelchair, bedside chair) Walking in hospital room? A little Climbing 3-5 steps with a railing? A little Mobility Score 20 Mobility Level [facility] Mobility Calculator Mobility 6 Walk 10 steps or more Rehab PT IP Eval Objective Appearance Patient Behavior Appropriate Patient Orientation Person,Place,Time Difficulty following instructions none Speech Pattern Clear Ambulation Patient Able to Ambulate Yes Ambulation Observation IP General Gait Pattern Observation Wide Based Gait,Shuffling Step Ambulation Distance (feet) 3 Ambulation Assistive Device Rolling Walker Ambulation Ability Supervision/Stand by Balance Ability to Arise Able, uses arms to help Sitting Balance Steady, safe Standing Balance Steady, wide stance Dynamic Sitting Balance Ability Good Dynamic Standing Balance Ability Fair Transfers Chair Transfer Ability Contact Guard/Hand Hold Sit to Stand Bed Transfer Ability Contact Guard/Hand Hold Sit to Stand Chair Transfer Ability Contact Guard/Hand Hold Rehab PT IP prob,goals,plan Problems Date of Evaluation: 07/18/24 PT IP Problems Transfers,Gait Rehab Potential Rehab Potential Good Plan PT Intervention Plan Transfers,Gait,Therapeutic Exercise PT Plan Frequency Daily Duration LOS Discharge Goals Bed Transfer Ability Supervision/Stand by Sit to Stand Chair Transfer Ability Supervision/Stand by Ambulation Assistive Device Rolling Walker Ambulation Distance (feet) 15 Discharge Plan PT Discharge Plan Pt is currently appropriate to return home once medically stable for d/c if he has assistance or ability to receive wound care after d/c. Skilled acute therapy is indicated to improve strength, transfers, and ambulation in order to return pt to [facility]. Eval Complexity Eval Charge Codes 50671 - High Complexity PHYSICIAN CERTIFICATION: I certify the specified therapy services for Bebeto Christiansen are required, authorized, and reviewed every 30 days.
[2024-07-18] MEDS: humaLOG 100 UNITS/ML 10ML VIAL (SSI) SUBCUT ×3 (11:07→20:49)
--- NOTE | 2024-07-18 11:31 | HMH.PTWOUND ---
Rehab Inpt Wound Evaluation Rehab IP Wound Evaluation Start: 07/17/24 15:51 Freq: ONCE Status: Active Protocol: Document 07/18/24 11:24 NANCY (Rec: 07/18/24 11:31 NANCY [id number]) Rehab PT Wound Assessment Subjective Subjective 64-year-old male who was recently moved to the area to live with his sister due to poor health and declining status living with family in [place]. He has a history of morbid obesity, CHF, diabetes, LORI. Had developed significant debility and numerous pressure wounds. Was previously admitted to our facility a month ago for volume overload and swelling in his legs. Pt reports he lives with family, ramp to enter the home, and he is able to ambulate short household distances with walker. He does typically use a w/c for long distance mobility. He presents with wounds to B lower legs and posterior R thigh upon admission. Wound Right Posterior Medial Calf Wound Type Stasis Ulcer Is This a Chronic Wound Yes Wound Length (cm) 11.0 Wound Width (cm) 7.0 Wound Depth (cm) 0.1 Wound Bed Appearance Beefy Red Wound Margins Description Well Defined Surrounding Tissue Appearance Bright Red Wound Drainage Description Serosanguineous Drainage Amount Moderate Primary Dressing Absorbant Pad Comment calcium alginate Wound Secondary Dressing Type Unna Boot Wound Debridement Method Gauze,Mechanical Wound Debridement Amount of Tissue Minimal Removed Dressing Change Patient Tolerance Tolerated Well Plan/Recommendation Comment Unna boot can remain in place to B lower legs x 2-3 days. Will follow as needed for further debridement in necessary. Eval Complexity Eval Charge Codes 90355 - High Complexity PHYSICIAN CERTIFICATION: I certify the specified therapy services for Bebeto Christiansen are required, authorized, and reviewed every 30 days.
--- NOTE | 2024-07-18 15:09 | SW/DCPLANNER ---
Spoke with PT and they stated that patient is at his base line and feels no other needs for patient. Prashanth BOYCE Medical Psychotherapist
[2024-07-18 16:00] VITALS: BP 126/66; PULSE 67; RESP 18; TEMP 36.6; O2SAT 94
[2024-07-18 16:11] LABS: POC Glucose,Bedside 209 (70-110)
--- NOTE | 2024-07-18 16:32 | PC.NURSE ---
PT IS SITTING UP IN THE CHAIR. ALERT AND ORIENTED X4. EATING AND DRINKING WELL. 3-4+ PITTING EDEMA NOTED TO BLE. DRESSINGS TO BLE C/D/I. MEDICATED PER MAR FOR BACK AND LEG DISCOMFORT. PURWICK IN PLACE. 1700 ML'S UOP THIS SHIFT. LUNG SOUNDS DIMINISHED. ABDOMEN LARGE/FIRM WITH HYPOACTIVE BOWEL SOUNDS. VSS. WILL CONTINUE TO MONITOR.
[2024-07-18 20:00] VITALS: BP 131/68; PULSE 68; RESP 16; TEMP 36.4; O2SAT 94
[2024-07-18 20:15] LABS: POC Glucose,Bedside 272 (70-110)
[2024-07-18] MEDS: PANTOPRAZOLE 40MG TABLET 40 MG PO (20:49)
[2024-07-18] MEDS: HYDROMORPHONE 2MG/ML SYRINGE 2 MG IV (23:54)
[2024-07-19] MEDS: BUMETANIDE 10 MG in 0.9 % SODIUM CHLORIDE 60 ML 20 MG IV ×2 (01:44→07:28)
[2024-07-19] MEDS: HYDROCODONE/APAP 5/325 MG TABLET 2 TAB PO ×2 (01:48→06:19)
[2024-07-19 04:00] VITALS: BP 139/67; PULSE 63; RESP 14; TEMP 36.8; O2SAT 97; BMI 53.8
--- NOTE | 2024-07-19 05:57 | PC.NURSE ---
Pt A&OX4 and has tolerated room air. 4+ edema noted to BLE. Dressing remained c/d/i. Bumex gtt has been infusing at 20 ml/hr. He has complained of left leg pain multiple times and was medicated per MAR. Purewick has remained in place and is draining well. He has remained up to chair the majority of the shift. Currently resting with call light within reach.
[2024-07-19] MEDS: humaLOG 100 UNITS/ML 10ML VIAL (SSI) SUBCUT ×2 (06:40→11:58)
[2024-07-19 07:08] LABS: POC Glucose,Bedside 188 (70-110)
[2024-07-19 08:00] VITALS: BP 140/76; PULSE 82; RESP 18; TEMP 36.6; O2SAT 97
[2024-07-19] MEDS: GABAPENTIN 300MG CAPSULE 900 MG PO ×2 (08:57→12:00)
[2024-07-19] MEDS: SPIRONOLACTONE 25MG TABLET 100 MG PO (08:57)
[2024-07-19] MEDS: dilTIAZem HCL 180MG CAP.ER.24H 360 MG PO (08:58)
[2024-07-19] MEDS: METOPROLOL SUCCINATE XL 100MG TABLET 150 MG PO (08:58)
[2024-07-19] MEDS: APIXABAN 5MG TABLET 5 MG PO (08:58)
[2024-07-19] MEDS: INSULIN GLARGINE 100 UNITS/ML 3ML FLEXPEN 60 UNIT SUBCUT (08:59)
[2024-07-19 09:10] LABS: Basophils # 0.1 K/mm3 (0-0.2); Basophils % 0.4 % (0.1-2.0); Eosinophils # 0.4 K/mm3 (0.0-0.4); Eosinophils % 3.4 % (0.1-12.0); Hemoglobin 11.1 g/dL (14.1-18.0); Lymphocytes % 16.6 % (10-50); Mean Corpuscular HGB Conc 30.8 g/dL (31.8-35.4); Mean Corpuscular Hemoglobin 24.6 pg (27.0-31.2); Mean Corpuscular Volume 79.6 fl (80-94); Mean Platelet Volume 9.3 fl (7.4-10.4); Monocytes # 0.7 K/mm3 (0.1-1.0); Monocytes % 6.2 % (1.7-9.3); Neutrophils # 8.8 K/mm3 (1.8-7.8); Neutrophils % 73.2 % (37.0-80.0); Platelet Count 314 K/mm3 (142-424); Red Blood Count 4.52 M/mm3 (4.60-6.20); Red Cell Distribution Width 16.7 % (11.5-17.5)
[2024-07-19 09:16] LABS: POC Glucose,Bedside 194 (70-110)
--- NOTE | 2024-07-19 09:16 | HMH.OTEV ---
OT Inpatient Evaluation Rehab OT IP Evaluation Start: 07/17/24 15:51 Freq: ONCE Status: Active Protocol: Document 07/19/24 09:03 ANDERS (Rec: 07/19/24 09:15 [facility] [id number]) Rehab OT IP Assessment Subjective History Pt oriented x 3 on arrival. Pt agreeable to engage in therapy evaluation. Pt admitted on 07/17/24 due to leg swelling and cellulitis. History and Physical: Mr. Christiansen is a 64-year-old male who was recently moved to the area to live with his sister due to poor health and declining status living with family in [place]. He has a history of morbid obesity, CHF , diabetes, LORI. Had developed significant debility and numerous pressure wounds. Was previously admitted to our facility a month ago for volume overload and swelling in his legs. Reported worsening weakness. After a week admission with diuresis, was discharged home with plan for outpatient follow-up. Had previously been seen at [facility] multiple times and even spent 6 weeks hospitalized at [facility] for heart failure, infected decubitus wounds, osteomyelitis of his foot status post amputation, and significant debility. He discharged to rehab for several weeks and then got readmitted to [facility] for 3 more weeks due to recurrent heart failure and volume overload. Was not a candidate for rehab placement after that admission and discharged home where he has been for approximately 3 weeks. Has not had follow-up as an outpatient with PCP or specialists as of yet. Was admitted to our facility a month ago, states he was home for a few days and then got readmitted to [facility] for about 3 weeks. After getting out took a trip to [place] and just got back yesterday and noted increased weeping from his right leg. States he did not take his diuretics during his travels due to difficulty with finding a bathroom. Having increased pain and weeping from right leg in particular. Denies any fever or chills. No shortness of breath. On room air at time presentation to the ED. Patient's mobility limited by swelling in his feet and legs, morbid obesity. Of note, received stents in his lower extremities due to peripheral artery disease during one of his previous hospitalizations. Diabetes has been poorly controlled as he has not had a glucometer. Subjective Prior to being in the hospital , pt lived at home with his sister and multiple other members of his family. Pt claims normally he is independent with all ADLs and is able to complete simple IADLs. However, family assists with heavier IADLS. He does use a rolling walker during functional transfers and also has wheelchair to complete longer distances. Objective Patient Orientation Person,Place,Birthday Right Upper Extremity Gross ROM WFL Left Upper Extremity Gross ROM WFL Transfer Training Sit/Stand Transfer,Sit/Stand/ Step Transfer Assist Level Contact Guard/Hand Hold Chair Transfer Ability Contact Guard/Hand Hold Chair Transfer Technique Sit to/from Ambulatory Chair Transfer Assistive Devices Rolling Walker Rehab OT IP prob,goals,plan Problems Date of Evaluation: 07/19/24 OT IP Problems Bed Mobility,Transfers,Balance ,Self care,Safety Rehab Potential Rehab Potential Good Equipment Needs Assistive Devices Rolling / Wheeled Walker Plan OT intervention Plan Bed Mobility,Transfers,Balance ,Self care,Safety,Therapeutic Exercise OT Plan Frequency Daily Duration LOS Discharge Goals Bed Mobility Ability Standby Assistance Sit to Stand Chair Transfer Ability Contact Guard/Hand Hold Chair Transfer Ability Contact Guard/Hand Hold Chair Transfer Technique Sit to/from Ambulatory Chair Transfer Assistive Devices Rolling Walker Lower Body Dressing Ability Minimal Assistance Upper Body Dressing Ability Standby Assistance Bathing Ability Minimal Assistance Performing Toilet Hygiene Ability Contact Guard Overall Commode/Toilet Transfer Ability Standby Assistance,Contact Guard Commode/Toilet Transfer Technique Sit to/from Ambulatory Oral Care Assist Contact Guard Decrease in Endurance Yes Discharge Plan OT Discharge Plan Pt will continue to be seen for OT services while at [facility]. Pt can return home with family once he is medically stable per physician. Therapist does recommend OT evaluation upon returning home for continued skilled therapy to reach PLOF. Eval Complexity Eval Charge Codes 23247 - Moderate Complexity PHYSICIAN CERTIFICATION: I certify the specified therapy services for Bebeto Christiansen are required, authorized, and reviewed every 30 days.
[2024-07-19 09:19] LABS: Chloride 94 mmol/L (98-107); Potassium 4.4 mmoL/L (3.5-5.1); Sodium 136 mmol/L (136-145)
[2024-07-19 09:21] LABS: Blood Urea Nitrogen 27 mg/dl (9-20); Creatinine Clearance Estimated 60 mL/min (50-200); Estimated Glomerular Filt Rate 47 ml/min (>60); GFR (African American) 57 ML/MIN (>60)
[2024-07-19 09:22] LABS: Alanine Aminotransferase 17 U/L (12-78); Albumin/Globulin Ratio 1.1 (1.1-1.8); Alkaline Phosphatase 100 U/L (38-126); Anion Gap 14.4 mEq/L (5-15); Aspartate Amino Transferase 22 U/L (17-59); Bilirubin,Total 0.4 mg/dl (0.2-1.3); Calcium 8.5 mg/dl (8.4-10.2); Carbon Dioxide 32 mmol/L (22.0-30.0); Globulin 3.6 g/dL (1.3-3.2); Glucose 239 mg/dl (74-100); Magnesium 1.5 mg/dl (1.6-2.3); Total Protein,Serum 7.6 g/dl (6.3-8.2)
[2024-07-19 09:27] LABS: C-Reactive Protein 49.5 mg/L (0-4)
[2024-07-19 11:52] LABS: POC Glucose,Bedside 238 (70-110)
--- NOTE | 2024-07-19 13:01 | P.DS_ITS ---
General Admission date:: 07/17/24 HPI HPI HPI: Mr. Christiansen is a 64-year-old male who was recently moved to the area to live with his sister due to poor health and declining status living with family in [place]. He has a history of morbid obesity, CHF, diabetes, LORI. Had developed significant debility and numerous pressure wounds. Was previously admitted to our facility a month ago for volume overload and swelling in his legs. Reported worsening weakness. After a week admission with diuresis, was discharged home with plan for outpatient follow-up. Had previously been seen at [facility] multiple times and even spent 6 weeks hospitalized at [facility] for heart failure, infected decubitus wounds, osteomyelitis of his foot status post amputation, and significant debility. He discharged to rehab for several weeks and then got readmitted to [facility], [place] for 3 more weeks due to recurrent heart failure and volume overload. Was not a candidate for rehab placement after that admission and discharged home where he has been for approximately 3 weeks. Has not had follow-up as an outpatient with PCP or specialists as of yet. Was admitted to our facility a month ago, states he was home for a few days and then got readmitted to [facility], [place] for about 3 weeks. After getting out took a trip to [place] and just got back yesterday and noted increased weeping from his right leg. States he did not take his diuretics during his travels due to difficulty with finding a bathroom. Having increased pain and weeping from right leg in particular. Denies any fever or chills. No shortness of breath. On room air at time presentation to the ED. Patient's mobility limited by swelling in his feet and legs, morbid obesity. Of note, received stents in his lower extremities due to peripheral artery disease during one of his previous hospitalizations. Diabetes has been poorly controlled as he has not had a glucometer. On evaluation, patient appears in mild distress. Is morbidly obese and chronically ill. Able to answer questions and speak in complete sentences without dyspnea. On room air with sats in the mid 80s. Currently receiving a dose of IV vancomycin. Discussed discharging home with increased diuretic regimen versus admission for diuretic drip. Patient does not have a ride home as his vehicle broke down on his recent trip to [place]. Due to complex combination of medical conditions and social hurdles, patient will be admitted for management. Hospital Course Hospital Course Hospital Course: Bebeto Christiansen is a 63-year-old male with morbid obesity was admitted for acute on chronic HFpEF, volume overload after not being able to take his diuretics on his trip to [place]. #Acute on chronic HFpEF #Venous insufficiency, stasis dermatitis ? Presented with progressive anasarca, has not been adherent to medications on a trip to [place] lasting 2 days. Recently admitted to our facility for similar presentation, and [facility] in [place] within the last month for similar presentation. ? Clinically improved with IV Bumex drip diuresis, increasing spironolactone dose to 100 mg twice daily. Net -5.2 L output. ? Discharged with Bumex 2 mg 3 times daily for 5 more days then wean to twice daily, spironolactone 100 mg twice daily for now. Strongly encourage patient to follow-up with cardiology within the next week to further evaluate diuretic regimen, and follow-up on renal function. ? Unna boots applied to lower extremities. ? Will follow-up with cardiology within 2 weeks. #Hypertension #A-fib ? Discharged with irbesartan 37.5 mg, metoprolol succinate 100 mg twice daily, spironolactone 50 mg twice daily, diltiazem 360 mg daily. ? Eliquis 5 mg twice daily for A-fib. Currently rate controlled. #Type 2 diabetes ? Hemoglobin A1c 9.7. Will need close follow-up with PCP for further evaluation management. ? Discharged with glargine 60 units twice daily, increased metformin from 500 to 1000 mg twice daily. - Cardiology recommended considering initiation of Jardiance for diabetes and heart failure as above; in light of patient's breakdown of skin in his groin however, concerned that SGLT2 would drastically increase his risk for Marilin's and will hold on initiating at this time. Morbid obesity complicates all aspects of his care. PT and OT consulted along with social work to assist with dispo planning in next site of care; PT evaluated and states patient is independently mobile. Safe to discharge home when medically stable. Referred to to outpatient PT, OT, wound. Total time spent on discharge: 32 minutes on chart review, counseling, documentation, and direct care with patient. Exam Data for Last 24 hours Vital signs and Labs for Last 24 Hours: Temp Pulse Resp BP Pulse Ox O2 Del Method 97.8 F 82 18 140/76 97 Room Air 07/19/24 08:00 07/19/24 08:00 07/19/24 08:00 07/19/24 08:00 07/19/24 08:00 07/19/24 11:00 Laboratory Results - last 24 hr 07/18/24 15:48: POC Glucose 209 H 07/18/24 20:04: POC Glucose 272 H 07/19/24 06:38: POC Glucose 188 H 07/19/24 08:40: WBC 12.0 H, RBC 4.52 L, Hgb 11.1 L, Hct 36.0 L, MCV 79.6 L, MCH 24.6 L, MCHC 30.8 L, RDW 16.7, Plt Count 314, MPV 9.3, Neut % (Auto) 73.2, Lymph % (Auto) 16.6, [place] % (Auto) 6.2, Eos % (Auto) 3.4, Baso % (Auto) 0.4, Neut # (Auto) 8.8 H, Lymph # (Auto) 2.0, [place] # (Auto) 0.7, Eos # (Auto) 0.4, Baso # (Auto) 0.1, Sodium 136, Potassium 4.4, Chloride 94 L, Carbon Dioxide 32 H, Anion Gap 14.4, BUN 27 H, Creatinine 1.50 H D, Estimated Creat Clear 60, Estimated GFR 47 L, Est GFR ( Amer) 57 L D, Glucose 239 H, Calcium 8.5, Magnesium 1.5 L D, Total Bilirubin 0.4, AST 22, ALT 17, Alkaline Phosphatase 100, C-Reactive Protein 49.5 H, Total Protein 7.6, Albumin 4.0, Globulin 3.6 H, Albumin/Globulin Ratio 1.1 07/19/24 08:57: POC Glucose 194 H 07/19/24 11:40: POC Glucose 238 H I & O for Last 24 hours: Intake & Output 07/16/24 07/17/24 07/18/24 07/19/24 23:59 23:59 23:59 23:59 Intake Total 750 / 1110 2893.000 / 3013.000 791 / 791 Output Total 3700 / 4000 3700 / 4500 2825 / 2825 Balance -2950 / -2890 -807.000 / -1487.000 -2034 / -2033 Weight 198.9 kg 194.79 kg 196.547 kg Microbiology Reports for the Last 24 Hours: Microbiology 07/17/24 14:23 Blood Blood Culture - Preliminary 07/17/24 19:37 Blood Blood Culture - Preliminary NO GROWTH AFTER 24 HOURS Results Data Completed and Pending Labs on day of discharge: Labs from last 24 hours 07/19/24 07/19/24 07/19/24 11:40 08:57 08:40 WBC 12.0 H RBC 4.52 L Hgb 11.1 L Hct 36.0 L MCV 79.6 L MCH 24.6 L MCHC 30.8 L RDW 16.7 Plt Count 314 MPV 9.3 Neut % (Auto) 73.2 Lymph % (Auto) 16.6 [place] % (Auto) 6.2 Eos % (Auto) 3.4 Baso % (Auto) 0.4 Neut # (Auto) 8.8 H Lymph # (Auto) 2.0 [place] # (Auto) 0.7 Eos # (Auto) 0.4 Baso # (Auto) 0.1 Sodium 136 Potassium 4.4 Chloride 94 L Carbon Dioxide 32 H Anion Gap 14.4 BUN 27 H Creatinine 1.50 H D Estimated Creat Clear 60 Estimated GFR 47 L Est GFR ( Amer) 57 L D Glucose 239 H POC Glucose 238 H 194 H Calcium 8.5 Magnesium 1.5 L D Total Bilirubin 0.4 AST 22 ALT 17 Alkaline Phosphatase 100 C-Reactive Protein 49.5 H Total Protein 7.6 Albumin 4.0 Globulin 3.6 H Albumin/Globulin Ratio 1.1 07/19/24 07/18/24 07/18/24 06:38 20:04 15:48 WBC RBC Hgb Hct MCV MCH MCHC RDW Plt Count MPV Neut % (Auto) Lymph % (Auto) [place] % (Auto) Eos % (Auto) Baso % (Auto) Neut # (Auto) Lymph # (Auto) [place] # (Auto) Eos # (Auto) Baso # (Auto) Sodium Potassium Chloride Carbon Dioxide Anion Gap BUN Creatinine Estimated Creat Clear Estimated GFR Est GFR ( Amer) Glucose POC Glucose 188 H 272 H 209 H Calcium Magnesium Total Bilirubin AST ALT Alkaline Phosphatase C-Reactive Protein Total Protein Albumin Globulin Albumin/Globulin Ratio Preliminary micro results at discharge 07/17/24 14:23 Blood Culture - Preliminary Blood 07/17/24 19:37 Blood Culture - Preliminary Blood NO GROWTH AFTER 24 HOURS DS: Diagnosis Discharge Diagnosis (1) Acute on chronic heart failure with preserved ejection fraction (HFpEF): Status: Acute Code(s): I50.33 - Acute on chronic diastolic (congestive) heart failure (2) Morbid obesity with BMI of 50.0-59.9, adult: Status: Acute Code(s): E66.01 - Morbid (severe) obesity due to excess calories; Z68.43 - Body mass index [BMI] 50.0-59.9, adult (3) Volume overload: Status: Acute Code(s): E87.70 - Fluid overload, unspecified Qualifiers: Hypervolemia type: unspecified Qualified Code(s): E87.70 - Fluid overload, unspecified (4) Venous stasis ulcer of both lower extremities without varicose veins: Status: Acute Code(s): I87.2 - Venous insufficiency (chronic) (peripheral); L97.919 - Non-pressure chronic ulcer of unspecified part of right lower leg with unspecified severity; L97.929 - Non-pressure chronic ulcer of unspecified part of left lower leg with unspecified severity (5) Cellulitis of left lower extremity: Status: Acute Code(s): L03.116 - Cellulitis of left lower limb (6) Microcytic anemia: Status: Acute Code(s): D50.9 - Iron deficiency anemia, unspecified (7) Adult failure to thrive: Status: Acute Code(s): R62.7 - Adult failure to thrive (8) LORI (obstructive sleep apnea): Status: Acute Code(s): G47.33 - Obstructive sleep apnea (adult) (pediatric) (9) Diabetes mellitus: Status: Acute Code(s): E11.9 - Type 2 diabetes mellitus without complications Qualifiers: Diabetes mellitus complication status: with hyperglycemia Diabetes mellitus intermediate insulin use: without superintendent terminal use Diabetes mellitus type: type 2 Qualified Code(s): E11.65 - Type 2 diabetes mellitus with hyperglycemia (10) Sacral wound: Status: Acute Code(s): S31.000A - Unspecified open wound of lower back and pelvis without penetration into retroperitoneum, initial encounter Qualifiers: Encounter type: initial encounter Qualified Code(s): S31.000A - Unspecified open wound of lower back and pelvis without penetration into retroperitoneum, initial encounter Meds Home Medications and Allergies Home Medications ?Medication ?Instructions ?Recorded ?Confirmed ?Type apixaban 5 mg tablet (Eliquis) 5 mg PO BID 30 days #60 tabs 06/21/24 07/18/24 Rx aspirin 81 mg tablet,delayed 81 mg PO DAILY 30 days #30 tabs 06/21/24 07/18/24 Rx release atorvastatin 10 mg tablet 10 mg PO HS 30 days #30 tabs 06/21/24 07/18/24 Rx diltiazem HCl 180 mg 360 mg (2 x 180 mg) PO DAILY 30 06/21/24 07/18/24 Rx capsule,extended release 24 hr days #60 caps gabapentin 300 mg capsule 900 mg (3 x 300 mg) PO TID 30 days 06/21/24 07/18/24 Rx #270 caps insulin glargine 100 unit/mL (3 60 unit (0.6 mL) SQ BID 30 days 06/21/24 07/18/24 Rx mL) subcutaneous pen (Lantus #36 mL Solostar U-100 Insulin) irbesartan 75 mg tablet 37.5 mg (1/2 x 75 mg) PO DAILY 30 06/21/24 07/18/24 Rx days #15 tabs pantoprazole 40 mg tablet,delayed 40 mg PO HS 30 days #30 tabs 06/21/24 07/18/24 Rx release polyethylene glycol 3350 17 gram 17 g PO DAILY 30 days #30 ea 06/21/24 07/18/24 Rx oral powder packet (HealthyLax) metoprolol succinate 50 mg 150 mg PO DAILY 07/18/24 07/18/24 History tablet,extended release 24 hr spironolactone 100 mg tablet 100 mg PO BIDL 30 days #60 tabs 07/18/24 Rx bumetanide 2 mg tablet See Rx Instructions .Route 07/19/24 07/18/24 Rx .COMPLEX 30 days #90 tabs metformin 500 mg tablet 1,000 mg (2 x 500 mg) PO BID 30 07/19/24 07/18/24 Rx days #30 tabs New Prescriptions to Start Prescriptions: spironolactone Cullen Wu Allergies Allergy/AdvReac Type Severity Reaction Status Date / Time hydromorphone (From Dilaudid) AdvReac Vomiting Verified 07/17/24 13:54 morphine AdvReac Vomiting Verified 07/17/24 13:54 Discharge Plan Disposition Patient Disposition: Home, Self-Care Condition: Fair Follow up Plan Follow up with: Alfredo Burton PA [Physician Beauty Consultant] - 07/25/24 1:45 pm Saulo Martinez DO [Primary Care Provider] - 08/03/24 9:15 am Abimael Herron MD [Staff Physician] - 07/22/24 11:20 am Prescriptions/Medication Reconciliation: New spironolactone 100 mg tablet 100 mg PO BIDL 30 Days Qty: 60 0RF Continued polyethylene glycol 3350 [HealthyLax] 17 gram Powder In Packet 17 g PO DAILY 30 Days Qty: 30 0RF atorvastatin 10 mg Tablet 10 mg PO HS 30 Days Qty: 30 0RF diltiazem HCl 180 mg Capsule,Extended Release 24hr 360 mg PO DAILY 30 Days Qty: 60 0RF aspirin 81 mg Tablet,Delayed Release (Dr/Ec) 81 mg PO DAILY 30 Days Qty: 30 0RF pantoprazole 40 mg Tablet,Delayed Release (Dr/Ec) 40 mg PO HS 30 Days Qty: 30 0RF irbesartan 75 mg Tablet 37.5 mg PO DAILY 30 Days Qty: 15 0RF insulin glargine [Lantus Solostar U-100 Insulin] 100 unit/mL (3 mL) Insulin Pen 60 unit SQ BID 30 Days Qty: 36 0RF Eliquis 5 mg Tablet 5 mg PO BID 30 Days Qty: 60 0RF gabapentin 300 mg capsule 900 mg PO TID 30 Days Qty: 270 0RF metoprolol succinate 50 mg tablet extended release 24 hr 150 mg PO DAILY Patient Comments: TAKE 3 TABLETS BY MOUTH DAILY Changed metformin 500 mg tablet 1,000 mg PO BID 30 Days Qty: 30 0RF bumetanide 2 mg tablet See Rx Instructions .ROUTE .COMPLEX 30 Days Qty: 90 0RF Rx Instructions: Take 2mg three times a day for the next 5 days. Then take 2mg twice a day. Discontinued spironolactone 25 mg Tablet 50 mg PO BIDL 30 Days Qty: 120 0RF Problem Reconciliation Problems Reviewed?: Yes Patient Discharge Instructions ACTIVITY: Continue current activity DIET: continue same diet Patient Instructions: DI for Lymphedema, Venous Stasis Ulcer Print Language: Georgian Providers Primary Care Provider: Saulo Martinez Admjanice Provider: Cullen Wu Attending Provider: Cullen Wu
[2024-07-19] MEDS: ONDANSETRON 4MG/2ML VIAL 4 MG IV (13:18)
[2024-07-19 13:55] LABS: Hemoglobin A1C 9.7 % (4.0-6.0)
--- NOTE | 2024-07-21 10:49 | SW/DCPLANNER ---
Spoke with patient on the phone. Patient stated that he isnt feeling well and that he is weak. Patient stated that he is aware of his upcoming appointments. Patient stated that he isnt able to get his new medicine when he was discharged from the hospital and that he is going today to get it. Patient stated that he has no concerns or questions at this time. Prashanth Hardy
--- OUTSIDE RECORDS SUMMARY | 2024-07-21 19:59 | XMS_ITS | Data Portability ---
Author Organization [employer] [facility], [employer] [facility] Address [address] [facility] [address] [place] [address] Assessment Encounter Date Assessment Date Assessment LastModified [...] Details Recorded Time 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 168545453 Active 2024 Rigoberto Rucker NP [address], [place], [address], [employer] [facility] [employer] 5 09:10:54 Peripheral arterial disease 759184533 Active 2024 Rigoberto Rucker [employer] [address], [place], [address], [place] [employer] 5 09:11:40 Paroxysmal atrial fibrillatio n 560919621 Active 2024 Rigoberto Rucker NP [address], [place], [address], [employer] 5 09:14:46 Type 2 diabetes mellitus with peripheral angiopathy 205811787 Active 2024 Rigoberto Rucker NP [address], [place], [address], [employer] 5 09:16:10 Microcytic anemia 820786995 Active 2024 Rigoberto Rucker NP [address], [place], [address], [employer] 5 09:16:33 Essential hypertensio n 39601089 Active 2024 Rigoberto Rucker NP [address], [place], [address], [employer] 5 09:16:50 Body mass index 40+ - severely obese 947661188 Active 2024 Rigoberto Rucker NP [address], [place], [address], [employer] 5 09:18:52 Mixed anxiety and depressive disorder 625979895 Active 2024 Rigoberto Rucker NP [address], [place], [address], [employer] 5 09:19:48 Peripheral neuropathy due to type 2 diabetes mellitus 5831499094141 Active 2024 Rigoberto Rucker NP [address], [place], [address], [employer] 5 09:31:19 Muscle weakness 41708805 Active 2024 Rigoberto Rucker, [employer] [address], [place], [address], [employer] 5 22:21:47 Problem Notes None recorded. Medical Equipment None Reported. Allergies Allergen ID Allergen Name Allergen Category Reaction Reaction Severity Criticality Documentation Date Start Date Code Code System Note Provider Name and Address Organization Details Recorded Time 29291 Substance with sulfonami de structure and antibacte rial mechanism of action (substanc e) medicatio n Not available Not available Not available 05/23/2024 53447 8003 SNOMED naima page null, [employer] 5 10:26:26 40256 hydromorp desiree medicatio n Not available Not available Not available 05/23/2024 3423 RxNorm naima page null, [employer] 5 10:26:37 32173 furosemid e medicatio n Not available Not available Not available 05/23/2024 4603 RxNorm naima page null, [employer] 5 10:26:45 32757 morphine medicatio n Not available Not available Not available 05/23/2024 7052 RxNorm naima page null, [employer] 5 10:26:52 Medications Name Sig Start Date [...] Address Organization Details Last Updated DateTime 05/24/2024 126339.8 g 49.1 kg/m2 190.5 cm Unyime Eyoh, [employer] [address], [place], [address], [place] - [employer] 05/24/2024 08:59:26 Social History None recorded. Functional Status None recorded. Mental Status None recorded. Family History Nothing Reported. Medical History No medical history recorded. Past Encounters Encounter ID Performer Location Encounter Start Date Encounter Closed Date Diagnosis/Indication Diagnosis SNOMED-CT Code Diagnosis ICD10 Code Diagnosis Note [id number] Rigoberto Rucker NP [place] [facility] [place] [address] [place] [id number] 05/24/2024 08:58:51 05/24/2024 22:25:01 Osteomyelitis of forefoot 938931357 M86.9 S/p right fourth toe amputation on 04/23/2024. Patient completed IV Zosyn. Patient advised to keep f/u appointmen t for suture removal. HH SN for wound management and close monitoring . Peripheral arterial disease 332685926 I73.9 continue to foot ulcers, s/p right 4th toe amputation . Continue Plavix, statin and AC. F/U with vascular surgeon. Paroxysmal atrial fibrillation 195887750 I48.0 Continue Metoprolol for rate control and Eliquis for stroke risk reduction. High risk med, monitor for bleeding. Type 2 ryan betes mellitus with peripheral angiopathy 896934580 E11.52 Z79.4 Reports BG controlled . Continue current diabetic regimen, monitor BG closely to assess for lows and assist with insulin adjustment . Consistent carbohydra te. Microcytic anemia 779089 007 D50.9 Hgb stable per hospital record, continue to optimize dietary iron intake. F/U with PCP for labs monitoring . Essential hypertension 87685771 I10 Continue b/p meds, monitor b/p closely, limit salt. SN for diseases/m eds management and education. Body mass index 40+ - severely obese 529956080 E66.01 Z68.42 BMI 49.1. Discussed at length most important aspect of weight management being calorie balance, and more specifical ly calorie deficit to begin weight loss. Discussed hypothesis of insulin resistance , intermitte nt fasting, and time restricted feeding. Reviewed protocols and recommenda tions. Mixed anxi ety and depressive disorder 042107639 F41.9 F32.A Continue Hydroxyzin e and Trazodone. Peripheral neuropathy due to type 2 diabetes mellitus 3716953525 107 E11.42 Continue Gabapentin for pain management . Muscle weakness 31505438 M62.81 HH PT/OT eval and treat to address mobility, gait, transfer and ADLs deficits. Fall precaution s. Health Concerns Section Related Observation LastModified by Organization Detai ls LastModified Time None Recorded Concern Status LastModified by Organization Details LastModified Time None Recorded Advance Directives Directive None Recorded Payers Encounter Date Sequence Insurance Name Policy Number Policy Arevalo Covered Member ID Arevalo Member ID Guarantor Name 05/24/2024 1 [facility] (MEDICARE REPLACEMENT/A DVANTAGE - PPO) [id number] Bebeto Christiansen [id number] Bebeto Christiansen Notes Date Note Type Note [...] for suture removal. Patient will benefit from [facility] services to assist with needs. Hospital records reviewed. Medications reviewed and reconciled. Rigoberto Rucker NP [address] [place] [address], [address], [employer] 05/24/2024 22:24:32
== END 2024-07-19 14:36 | disposition home or self-care (01) ==
LOC: ER 15:56 → 2ND 17:18
PROVIDERS: Student in an Organized Health Care Education/Training Program; Admitting Provider Internal Medicine Adolescent Medicine; Emergency Provider Emergency Medicine; PCP Internal Medicine; Visit Provider Internal Medicine Adolescent Medicine
DX: I11.0 Hypertensive heart disease with heart failure (principal); I50.33 Acute on chronic diastolic (congestive) heart failure; E66.01 Morbid (severe) obesity due to excess calories; Z68.43 Body mass index [BMI] 50.0-59.9, adult; E87.70 Fluid overload, unspecified; I87.2 Venous insufficiency (chronic) (peripheral); I48.91 Unspecified atrial fibrillation; E11.51 Type 2 diabetes mellitus with diabetic peripheral angiopathy without gangrene; L97.919 Non-pressure chronic ulcer of unspecified part of right lower leg with unspecified severity; L97.929 Non-pressure chronic ulcer of unspecified part of left lower leg with unspecified severity; L03.116 Cellulitis of left lower limb; D50.9 Iron deficiency anemia, unspecified; R62.7 Adult failure to thrive; G47.33 Obstructive sleep apnea (adult) (pediatric); E11.65 Type 2 diabetes mellitus with hyperglycemia; S31.000A Unspecified open wound of lower back and pelvis without penetration into retroperitoneum, initial encounter; I89.0 Lymphedema, not elsewhere classified; Z91.128 Patient's intentional underdosing of medication regimen for other reason; Z95.828 Presence of other vascular implants and grafts; Z74.1 Need for assistance with personal care; Z89.422 Acquired absence of other left toe(s); Z89.421 Acquired absence of other right toe(s); Z79.01 Long term (current) use of anticoagulants; Z79.82 Long term (current) use of aspirin; Z79.2 Long term (current) use of antibiotics; Z79.4 Long term (current) use of insulin; Z79.84 Long term (current) use of oral hypoglycemic drugs; Z79.899 Other long term (current) drug therapy; Z88.6 Allergy status to analgesic agent; Z88.5 Allergy status to narcotic agent; L53.9 Erythematous condition, unspecified; Z99.3 Dependence on wheelchair; Z99.89 Dependence on other enabling machines and devices
CPT/HCPCS: 36415; 80053; 82962; 83036; 83735; 83880; 85025; 86140; 87040; 87186; 97116; 97163; 97166; 99285; G0378; J0131; J1171; J1885; J1939; J2405; J3370

== ENCOUNTER 2024-07-20 09:56 | Emergency (ER) | payer MEDICARE, SELFPAY ==
[2024-07-20] VITALS (9 sets, daily range): BP systolic 91–133; BP diastolic 38–72; PULSE 53–77; RESP 13–18; TEMP 36.6; O2SAT 93–98; BMI 55.0
--- NOTE | 2024-07-20 10:02 | HMH.EDGENADL ---
Discharge Plan Disposition Patient Disposition: Home, Self-Care Condition: Good Prescriptions Prescriptions: New ondansetron 4 mg tablet,disintegrating 4 mg PO Q8H PRN (Reason: nausea and vomiting) 4 Days Qty: 12 0RF No Action polyethylene glycol 3350 [HealthyLax] 17 gram Powder In Packet 17 g PO DAILY 30 Days Qty: 30 0RF atorvastatin 10 mg Tablet 10 mg PO HS 30 Days Qty: 30 0RF diltiazem HCl 180 mg Capsule,Extended Release 24hr 360 mg PO DAILY 30 Days Qty: 60 0RF aspirin 81 mg Tablet,Delayed Release (Dr/Ec) 81 mg PO DAILY 30 Days Qty: 30 0RF pantoprazole 40 mg Tablet,Delayed Release (Dr/Ec) 40 mg PO HS 30 Days Qty: 30 0RF irbesartan 75 mg Tablet 37.5 mg PO DAILY 30 Days Qty: 15 0RF insulin glargine [Lantus Solostar U-100 Insulin] 100 unit/mL (3 mL) Insulin Pen 60 unit SQ BID 30 Days Qty: 36 0RF Eliquis 5 mg Tablet 5 mg PO BID 30 Days Qty: 60 0RF gabapentin 300 mg capsule 900 mg PO TID 30 Days Qty: 270 0RF metoprolol succinate 50 mg tablet extended release 24 hr 150 mg PO DAILY Patient Comments: TAKE 3 TABLETS BY MOUTH DAILY spironolactone 100 mg tablet 100 mg PO BIDL 30 Days Qty: 60 0RF metformin 500 mg tablet 1,000 mg PO BID 30 Days Qty: 30 0RF bumetanide 2 mg tablet See Rx Instructions .ROUTE .COMPLEX 30 Days Qty: 90 0RF Rx Instructions: Take 2mg three times a day for the next 5 days. Then take 2mg twice a day. Referrals Follow up/Referrals: Saulo Martinez DO [Primary Care Provider] - See instructions Activity Restrictions/Add. Instructions Additional Instructions/Restrictions: You were evaluated in the emergency department today. At this time, your labs demonstrate a slight elevation in your creatinine or acute kidney injury. White blood cell count is slightly elevated, but it appears to be chronically elevated. Given that you are acutely sick and have a mild kidney injury, I recommend decreasing your diuresis. You previously were told to take Bumex 2 mg 3 times daily, but I recommend taking 2 mg Bumex twice daily instead of 3 times daily. Please follow-up closely with primary care over the next 48 hours for recheck of your labs and for close monitoring. 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 Eat a bland diet until symptoms have resolved. Make sure you stay hydrated. Return to the emergency department for new or worsening symptoms. Clinical Impressions Clinical Impression: LUPE (acute kidney injury), Nausea & vomiting Instructions Patient Instructions: DI for Nausea -- Adult, DI for Acute Kidney Injury Print Language Print Language: Occitan Discharge ED Provider: Leticia Giang General Adult HPI General Chief complaint: Nausea/Vomiting/Diarrhea Stated complaint: N/V this AM, recently dc from [facility] Time Seen by Provider: 07/20/24 10:01 Mode of Arrival: EMS Source of Information: Patient Description of Symptoms (Recalled from ER Triage Doc. by RN): pt to the ED via EMS with complaints of nausea/vomiting. pt reports he was D/C from [facility] yesterday and was feeling fine until he went to [facility] to run errands. pt reports he has one episode of emesis in [facility] but had no other complaints or episodes until this morning when he reports nausea and dry heaving. pt reports chronic back pain rating a 4 at this time. pt normally smokes marijuana for his pain but has been unable to due to his resent admission History of Present Illness HPI narrative: This patient is a 64-year-old male with a history of morbid obesity, atrial fibrillation, CHF, chronic venous stasis of his lower extremities with chronic weeping and skin wounds, sacral wounds, LORI, and poor overall health with general debility presenting to the emergency department for evaluation concern for nausea and vomiting. Patient was admitted to our hospital 07/17 through 07/19/24 for acute exacerbation of heart failure, lower extremity edema. He was diuresed 5 L and discharged home clinically improved. He states he went to [facility] yesterday after being discharged, and he suddenly started feeling very nauseated and lightheaded. He had an episode of nonbloody nonbilious emesis, did not think much of it until the emesis continued this morning. No pain associated with this. No changes in bowel movements with last bowel movement being today being normal for him. He notes that he is prone to nausea and gets vomiting a lot. No fevers, cough, congestion, shortness of breath, or other concerns. No other significant issues since being discharged Related Data Home Medications ?Medication ?Instructions ?Recorded ?Confirmed metoprolol succinate 50 mg 150 mg PO DAILY 07/18/24 07/18/24 tablet,extended release 24 hr Previous Rx's ?Medication ?Instructions ?Recorded apixaban 5 mg tablet (Eliquis) 5 mg PO BID 30 days #60 tabs 06/21/24 aspirin 81 mg tablet,delayed 81 mg PO DAILY 30 days #30 tabs 06/21/24 release atorvastatin 10 mg tablet 10 mg PO HS 30 days #30 tabs 06/21/24 diltiazem HCl 180 mg 360 mg (2 x 180 mg) PO DAILY 30 06/21/24 capsule,extended release 24 hr days #60 caps gabapentin 300 mg capsule 900 mg (3 x 300 mg) PO TID 30 days 06/21/24 #270 caps insulin glargine 100 unit/mL (3 60 unit (0.6 mL) SQ BID 30 days 06/21/24 mL) subcutaneous pen (Lantus #36 mL Solostar U-100 Insulin) irbesartan 75 mg tablet 37.5 mg (1/2 x 75 mg) PO DAILY 30 06/21/24 days #15 tabs pantoprazole 40 mg tablet,delayed 40 mg PO HS 30 days #30 tabs 06/21/24 release polyethylene glycol 3350 17 gram 17 g PO DAILY 30 days #30 ea 06/21/24 oral powder packet (HealthyLax) spironolactone 100 mg tablet 100 mg PO BIDL 30 days #60 tabs 07/18/24 bumetanide 2 mg tablet See Rx Instructions .Route 07/19/24 .COMPLEX 30 days #90 tabs metformin 500 mg tablet 1,000 mg (2 x 500 mg) PO BID 30 07/19/24 days #30 tabs ondansetron 4 mg disintegrating 4 mg PO Q8H PRN nausea and 07/20/24 tablet vomiting 4 days #12 tabs Allergies Allergy/AdvReac Type Severity Reaction Status Date / Time hydromorphone (From Dilaudid) AdvReac Vomiting Verified 07/17/24 13:54 morphine AdvReac Vomiting Verified 07/17/24 13:54 [facility] Disclaimer: The information contained in this section may have been updated after the patient was seen, as this information can be updated by other users. 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 Social History Smoking Status: Never smoker alcohol intake: never current occupational status: retired and disabled Travel in the last 8 weeks: None Have you lived/traveled outside [place] in past 30 days?: No Contact w/someone who lives/traveled outside [place] past 30 days?: No Exposure to someone with infectious disease in past 14 days?: No Do you have a fever (greater than 100.4 F or 38 C)?: No Have you tested positive for COVID-19: No Exposed to someone with COVID-19 in past 14 days?: No Do you have a sore throat?: No Do you have a cough?: No Do you have any weakness?: Yes Do you have any diarrhea?: Yes Are you experiencing any unusual bleeding?: No Do you have any muscle aches/pain?: No Do you have any abdominal pain?: No Are you experiencing loss of taste or smell?: No Other Medical History Have you received the Flu Vaccine for this season: No Have you received the Pneumonia Vaccine: No ROS Obtained: Yes All systems reviewed & no additional complaints except as documented Physical Exam General General appearance: alert, in no apparent distress and obese Comment: Morbidly obese Head Head exam: atraumatic and normocephalic Eye Eye exam: Present normal appearance, PERRL and EOMI ENT ENT exam: Present normal exam, normal oropharynx, mucous membranes moist and normal external ear exam Neck Neck exam: Present normal inspection, full ROM and trachea midline; Absent tenderness Chest Chest inspection: Present normal inspection and symmetric chest wall rise; Absent tenderness Respiratory Respiratory exam: Present normal lung sounds bilaterally; Absent respiratory distress, wheezes, stridor or accessory muscle use Cardiovascular Cardiovascular exam: Present regular rate and normal rhythm Abdominal Exam Abdominal exam: Present soft; Absent distention, tenderness or guarding Extremities Exam Extremities exam: Present full ROM, normal capillary refill, edema and other (Symmetric bilateral lower extremity edema with chronic skin changes); Absent tenderness Back Exam Back exam: Present normal inspection and full ROM; Absent tenderness Neurological Exam Neurological exam: Present alert, oriented X3 and CN II-XII intact; Absent motor sensory deficit Psychiatric Psychiatric exam: Present normal affect and normal mood Skin Skin exam: Present warm and dry Medical Decision Making Medical Records Medical records reviewed: Yes I reviewed the patient's medical records. Screening: Per USPSTF and CDC recommendations, given the prevalence of disease in our region, it is our hospital?s policy to screen for HIV and viral Hepatitis for all patients aged 18 and over and those with ongoing risk factors. Madi Inquiry Pt receiving controlled substance: No Vital Signs: 07/20/24 09:55 07/20/24 09:56 07/20/24 10:01 Temperature 97.9 F Temperature Source Oral Pulse Rate 60 62 Pulse Rate [Left Radial] 65 Respiratory Rate 15 17 13 Blood Pressure 130/66 110/57 L Blood Pressure [Right Arm] 133/66 Blood Pressure Mean 85 74 Blood Pressure Mean [Right Arm] 88 Blood Pressure Source Blood Pressure Source [Right Arm] Automatic Cuff Blood Pressure Position [Right Arm] Sitting 02 Sat by Pulse Oximetry 96 98 93 L Oxygen Delivery Method Room Air Room Air Room Air 07/20/24 10:31 07/20/24 10:45 07/20/24 11:31 Temperature Temperature Source Pulse Rate 77 73 56 L Pulse Rate [Left Radial] Respiratory Rate 16 17 16 Blood Pressure 91/48 L 104/46 L 122/57 L Blood Pressure [Right Arm] Blood Pressure Mean 62 76 Blood Pressure Mean [Right Arm] Blood Pressure Source Blood Pressure Source [Right Arm] Blood Pressure Position [Right Arm] 02 Sat by Pulse Oximetry 98 94 L 94 L Oxygen Delivery Method Room Air Room Air Room Air 07/20/24 12:01 07/20/24 13:15 07/20/24 13:22 Temperature 97.9 F Temperature Source Oral Pulse Rate 53 L 72 58 L Pulse Rate [Left Radial] Respiratory Rate 16 16 18 Blood Pressure 121/38 L 117/56 L 108/72 L Blood Pressure [Right Arm] Blood Pressure Mean 65 Blood Pressure Mean [Right Arm] Blood Pressure Source Automatic Cuff Blood Pressure Source [Right Arm] Blood Pressure Position [Right Arm] 02 Sat by Pulse Oximetry 98 95 Oxygen Delivery Method Room Air Room Air Lab Data Lab results reviewed: Yes I reviewed the patient's lab results. Lab Results 07/20/24 10:18: WBC 14.5 H, RBC 4.57 L, Hgb 11.2 L, Hct 36.6 L, MCV 80.1, MCH 24.5 L, MCHC 30.6 L, RDW 16.7, Plt Count 322, MPV 9.3, Neut % (Auto) 84.9 H, Lymph % (Auto) 6.8 L, Graves % (Auto) 5.4, Eos % (Auto) 2.3, Baso % (Auto) 0.3, Neut # (Auto) 12.3 H, Lymph # (Auto) 1.0, Graves # (Auto) 0.8, Eos # (Auto) 0.3, Baso # (Auto) 0.1, Sodium 135 L, Potassium 4.9, Chloride 94 L, Carbon Dioxide 31 H, Anion Gap 14.9, BUN 35 H D, Creatinine 1.90 H D, Estimated Creat Clear 48, Estimated GFR 36 L, Est GFR ( Amer) 44 L D, Phosphorus 5.9 H, Magnesium 1.7 D, Total Bilirubin 0.6, AST 23, ALT 17, Alkaline Phosphatase 127 H, Troponin I < 0.01, Albumin 4.1 07/20/24 10:18 07/20/24 10:18 Orders (Tests/Meds): ED MEDICATIONS Discontinued Medications Generic Name Dose Route Start Last Admin Trade Name Freq PRN Reason Stop Dose Admin Lactated Ringer's 500 mls @ 999 mls/hr 07/20/24 10:49 07/20/24 11:00 Lactated Ringer's 500ml IV 07/20/24 11:19 999 mls/hr .Q31M ONE Administration Ondansetron HCl 4 mg 07/20/24 10:01 07/20/24 10:19 Ondansetron 4mg/2ml Vial IV 07/20/24 10:02 4 mg ONCE ONE Administration ORDERS Category Date Time Status Complete Blood Count Auto Diff Stat Lab 07/20/24 10:18 Completed Comprehensive Metabolic Panel Stat Lab 07/20/24 10:18 Results Lipase Stat Lab 07/20/24 10:18 Results MAG [Magnesium] Stat Lab 07/20/24 10:18 Completed PHOS [Phosphorous] Stat Lab 07/20/24 10:18 Completed Trop I [Troponin I] Stat Lab 07/20/24 10:18 Results UA [Urinalysis and Microscopic] Stat Lab 07/20/24 10:40 Ordered ECG Data Tracing #1: I reviewed this ECG and interpreted as documented below: Atrial fibrillation with a ventricular of [address] changes concerning for STEMI. ECG initial impression date: 07/20/24 ECG initial impression time: 10:18 Tracing #2: I reviewed this ECG and interpreted as documented below: Atrial fibrillation with slow ventricular response with a rate of [address] changes concerning for ischemia. Normal QTc at 381 ms ECG initial impression date: 07/20/24 ECG initial impression time: 12:25 Medical Decision Narrative: In summary, this patient is a 64-year-old male presenting to the Emergency Department for evaluation of nausea, vomiting, and lightheadedness that started yesterday after being discharged from the hospital for CHF exacerbation and aggressive diuresis. Differential diagnoses considered include but are not limited to gastroenteritis, colitis, pancreatitis, dehydration, electrolyte derangements, ACS, CHF exacerbation. Ruling out the most morbid conditions drove assessment. It should be noted patient's history includes morbid obesity, extensive cardiovascular history, venous stasis which are not at goal therapy. This complicates all aspects of care by increasing patient's risk for morbidity. I reviewed patient's past medical records and noted recent admission with discharge after aggressive diuresis as detailed in HPI. On exam, the patient is sitting upright in no acute distress. Vitals are normal on cardiac telemetry. He has reassuring abdominal exam with no localizable tenderness. No abdominal pain. Given this, doubt surgical intra-abdominal pathology. Cardiopulmonary exam is also reassuring. Workup included CBC, CMP, lipase, magnesium, phosphorus, troponin, urinalysis, EKG. He was given IV Zofran for symptomatic improvement. EKG obtained demonstrates slow A-fib with a rate in the 60s. He has chronic A-fib. On reassessment, patient is resting comfortably in no acute distress. Labs demonstrated mild leukocytosis, which is chronic. Slightly worse in the setting of aggressive diuresis, possibly hemoconcentration. He also has an LUPE with creatinine up to 1.9. His creatinine was normal at the beginning of his last admission, 1.5 yesterday, today 1.9. Again, this is in the setting of aggressive diuresis and now vomiting. He is afebrile, nontoxic with no complaints of pain, benign abdominal exam. I don't feel sepsis or acute infection is likely. On multiple subsequent reassessments, he is hemodynamically stable, resting comfortably in no acute distress. He has been bradycardic with A-fib, that is chronic. He is normotensive with slow a-fib on EKG. He was given a small bolus of IV fluids, 500 cc, given the recent diuresis and now acute GI illness. Abdominal exam remains benign. He is able to tolerate oral intake without issue after administration of Zofran. He states he is feeling better. I had an interactive discussion with Dr. Martin the hospitalist who discharged the patient yesterday and recommended decreasing Bumex to 2 mg twice daily instead of 3 times daily in the setting of acute illness and LUPE. Patient has close follow-up arranged with primary care provider in 2 days. He was given strict return precautions and was discharged after all questions were answered. Critical Care Critical Care Time Critical Care Time: No
--- NOTE | 2024-07-20 10:17 | ECG_ITS ---
APPROVED REPORT Exam: Resting ECG HR:61 bpm ECG Measurements Heart Rate 61 AXES QRSd 107 QRS 87 QT 430 T 68 QTc 434 Conclusion ATRIAL FIBRILLATION LOW QRS VOLTAGE IN PRECORDIAL LEADS [QRS DEFLECTION < 1.0 mV IN CHEST LEADS] POSSIBLE ANTERIOR MYOCARDIAL INFARCTION , PROBABLY OLD [30 ms Q WAVE IN V3/V4, OR R < 0.2 mV IN V4] no STEMI Electronically signed by : JOCELYN PEREZ, 07/20/2024 15:38:43
[2024-07-20] MEDS: ONDANSETRON 4MG/2ML VIAL 4 MG IV (10:19)
[2024-07-20 10:26] LABS: Basophils # 0.1 K/mm3 (0-0.2); Basophils % 0.3 % (0.1-2.0); Eosinophils # 0.3 K/mm3 (0.0-0.4); Eosinophils % 2.3 % (0.1-12.0); Hematocrit 36.6 % (42.0-52.0); Hemoglobin 11.2 g/dL (14.1-18.0); Lymphocytes % 6.8 % (10-50); Mean Corpuscular HGB Conc 30.6 g/dL (31.8-35.4); Mean Corpuscular Hemoglobin 24.5 pg (27.0-31.2); Mean Corpuscular Volume 80.1 fl (80-94); Mean Platelet Volume 9.3 fl (7.4-10.4); Monocytes # 0.8 K/mm3 (0.1-1.0); Monocytes % 5.4 % (1.7-9.3); Neutrophils # 12.3 K/mm3 (1.8-7.8); Neutrophils % 84.9 % (37.0-80.0); Platelet Count 322 K/mm3 (142-424); Red Blood Count 4.57 M/mm3 (4.60-6.20); Red Cell Distribution Width 16.7 % (11.5-17.5); White Blood Count 14.5 K/mm3 (4.8-10.8)
[2024-07-20 10:34] LABS: Albumin Level 4.1 g/dl (3.5-5.0); Chloride 94 mmol/L (98-107); Sodium 135 mmol/L (136-145)
[2024-07-20 10:35] LABS: Potassium 4.9 mmoL/L (3.5-5.1)
[2024-07-20 10:37] LABS: Alanine Aminotransferase 17 U/L (12-78); Alkaline Phosphatase 127 U/L (38-126); Anion Gap 14.9 mEq/L (5-15); Aspartate Amino Transferase 23 U/L (17-59); Bilirubin,Total 0.6 mg/dl (0.2-1.3); Blood Urea Nitrogen 35 mg/dl (9-20); Carbon Dioxide 31 mmol/L (22.0-30.0); Creatinine Clearance Estimated 48 mL/min (50-200); Estimated Glomerular Filt Rate 36 ml/min (>60); GFR (African American) 44 ML/MIN (>60)
[2024-07-20 10:50] LABS: Troponin I < 0.01 ng/ml (0.00-0.034)
[2024-07-20] MEDS: RINGERS SOLUTION,LACTATED 500 ML 999 ML IV (11:00)
[2024-07-20 11:05] LABS: Magnesium 1.7 mg/dl (1.6-2.3); Phosphorous 5.9 mg/dl (2.5-4.5)
--- NOTE | 2024-07-20 12:23 | ECG_ITS ---
APPROVED REPORT Exam: Resting ECG HR:49 bpm ECG Measurements Heart Rate 49 AXES QRSd 81 QRS 88 QT 410 T 55 QTc 381 Conclusion ATRIAL FIBRILLATION WITH SLOW VENTRICULAR RESPONSE LOW QRS VOLTAGE IN PRECORDIAL LEADS [QRS DEFLECTION < 1.0 mV IN CHEST LEADS] POSSIBLE ANTERIOR MYOCARDIAL INFARCTION , PROBABLY OLD [30 ms Q WAVE IN V3/V4, OR R < 0.2 mV IN V4] No STEMI Electronically signed by : JOCELYN PEREZ, 07/20/2024 15:38:53
--- NOTE | 2024-07-20 13:20 | PC.NURSE ---
pt refused an in and out cath for a urine specimen after 2 failed attempts at collection
--- NOTE | 2024-07-20 13:39 | PC.NURSE ---
attempted x2 to get UA, was unsuccessful at this time.
[2024-07-20 13:56] LABS: Lipase 70 U/L (23-300)
[2024-07-20 13:57] LABS: Albumin/Globulin Ratio 1.2 (1.1-1.8); Calcium 9.2 mg/dl (8.4-10.2); Globulin 3.4 g/dL (1.3-3.2); Glucose 264 mg/dl (74-100); Total Protein,Serum 7.5 g/dl (6.3-8.2)
== END 2024-07-20 15:57 | disposition home or self-care (01) ==
PROVIDERS: Emergency Provider Emergency Medicine; PCP Internal Medicine
DX: N17.9 Acute kidney failure, unspecified (principal); R11.2 Nausea with vomiting, unspecified; M54.9 Dorsalgia, unspecified; G89.29 Other chronic pain; R42 Dizziness and giddiness
CPT/HCPCS: 80053; 83690; 83735; 84100; 84484; 85025; 93005; 96361; 96374; 99283; J2405; J7120

== ENCOUNTER 2024-07-27 20:22 | Inpatient (IN) | payer MEDICARE, SELFPAY ==
--- NOTE | 2024-07-27 20:24 | ECG_ITS ---
APPROVED REPORT Exam: Resting ECG HR:89 bpm ECG Measurements Heart Rate 89 AXES QRSd 94 QRS 109 QT 352 T 31 QTc 399 Conclusion ATRIAL FIBRILLATION RIGHT AXIS DEVIATION [QRS AXIS > 100] LOW QRS VOLTAGE IN PRECORDIAL LEADS [QRS DEFLECTION < 1.0 mV IN CHEST LEADS] ABNORMAL ECG UNCONFIRMED REPORT Electronically signed by : Cullen Felix, 07/27/2024 23:34:51
[2024-07-27 20:27] VITALS: BP 137/73; PULSE 94; RESP 20; TEMP 37.1; O2SAT 100; BMI 53.1
--- OUTSIDE RECORDS SUMMARY | 2024-07-27 20:34 | XMS_ITS | Data Portability ---
Author Organization [employer] [facility], [employer] Address [address] [facility] [address] [place] [address] Assessment Encounter Date Assessment Date Assessment LastModified [...] Details Recorded Time 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 728291011 Active 2024 Rigoberto Rucker NP [address], [place], [address], [employer] 5 09:10:54 Peripheral arterial disease 754207654 Active 2024 Rigoberto Rucker [employer] [address], [place], [address], [place] [employer] 5 09:11:40 Paroxysmal atrial fibrillatio n 434069754 Active 2024 Rigoberto Rucker NP [address], [place], [address], [employer] 5 09:14:46 Type 2 diabetes mellitus with peripheral angiopathy 669079921 Active 2024 Rigoberto Rucker NP [address], [place], [address], [employer] 5 09:16:10 Microcytic anemia 745046149 Active 2024 Rigoberto Rucker NP [address], [place], [address], [employer] 5 09:16:33 Essential hypertensio n 37712954 Active 2024 Rigoberto Rucker NP [address], [place], [address], [employer] 5 09:16:50 Body mass index 40+ - severely obese 784445698 Active 2024 Rigoberto Rucker NP [address], [place], [address], [employer] 5 09:18:52 Mixed anxiety and depressive disorder 772716376 Active 2024 Rigoberto Rucker NP [address], [place], [address], [employer] 5 09:19:48 Peripheral neuropathy due to type 2 diabetes mellitus 0509273762309 Active 2024 Rigoberto Rucker NP [address], [place], [address], [employer] 5 09:31:19 Muscle weakness 43113857 Active 2024 Rigoberto Rucker, [employer] [address], [place], [address], [employer] 5 22:21:47 Problem Notes None recorded. Medical Equipment None Reported. Allergies Allergen ID Allergen Name Allergen Category Reaction Reaction Severity Criticality Documentation Date Start Date Code Code System Note Provider Name and Address Organization Details Recorded Time 08337 Substance with sulfonami de structure and antibacte rial mechanism of action (substanc e) medicatio n Not available Not available Not available 05/23/2024 98854 8003 SNOMED Not Available Not Available Not Available 19164 hydromorp desiree medicatio n Not available Not available Not available 05/23/2024 3423 RxNorm Not Available Not Available Not Available 18345 furosemid e medicatio n Not available Not available Not available 05/23/2024 4603 RxNorm Not Available Not Available Not Available 65904 morphine medicatio n Not available Not available Not available 05/23/2024 7052 RxNorm Not Available Not Available Not Available Medications Name Sig Start Date Stop Date [...] Address Organization Details Last Updated DateTime 05/24/2024 972745.8 g 49.1 kg/m2 190.5 cm Unyime Chaim, [employer] [address] [address], [place], [address], [employer] 05/24/2024 08:59:26 Social History None recorded. Functional Status None recorded. Mental Status None recorded. Family History Nothing Reported. Medical History No medical history recorded. Past Encounters Encounter ID Performer Location Encounter Start Date Encounter Closed Date Diagnosis/Indication Diagnosis SNOMED-CT Code Diagnosis ICD10 Code Diagnosis Note [id number] Unph[employer]ong[employer] CALLUM Rucker [facility] [address] [place] [id number] 05/24/2024 08:58:51 05/24/2024 22:25:01 Osteomyelitis of forefoot 661772156 M86.9 S/p right fourth toe amputation on 04/23/2024. Patient completed IV Zosyn. Patient advised to keep f/u appointmen t for suture removal. SN for wound management and close monitoring . Peripheral arterial disease 676561365 I73.9 continue to foot ulcers, s/p right 4th toe amputation . Continue Plavix, statin and AC. F/U with vascular surgeon. Paroxysmal atrial fibrillation 481729060 I48.0 Continue Metoprolol for rate control and Eliquis for stroke risk reduction. High risk med, monitor for bleeding. Type 2 ryan betes mellitus with peripheral angiopathy 529712474 E11.52 Z79.4 Reports BG controlled . Continue current diabetic regimen, monitor BG closely to assess for lows and assist with insulin adjustment . Consistent carbohydra te. Microcytic anemia 579495 007 D50.9 Hgb stable per hospital record, continue to optimize dietary iron intake. F/U with PCP for labs monitoring . Essential hypertension 61350477 I10 Continue b/p meds, monitor b/p closely, limit salt. SN for diseases/m eds management and education. Body mass index 40+ - severely obese 809193853 E66.01 Z68.42 BMI 49.1. Discussed at length most important aspect of weight management being calorie balance, and more specifical ly calorie deficit to begin weight loss. Discussed hypothesis of insulin resistance , intermitte nt fasting, and time restricted feeding. Reviewed protocols and recommenda tions. Mixed anxi ety and depressive disorder 634079403 F41.9 F32.A Continue Hydroxyzin e and Trazodone. Peripheral neuropathy due to type 2 diabetes mellitus 4379999747 107 E11.42 Continue Gabapentin for pain management . Muscle weakness 74885574 M62.81 PT/OT eval and treat to address mobility, [...] Are[employer] Member ID Guarantor Name 05/24/2024 1 [facility] (MEDICARE REPLACEMENT/A DVANTAGE - PPO) [id number] Bebeto Stuartraul [id number] Bebeto Kuldip Notes Date Note Type Note Provider Name and Address Organization Details Recorded Time 05/24/2024 text/html A 63 y/o male pa zhang was seen remotely via telemedicine using either [...] for suture removal. Patient will benefit from [facility] services to assist with needs. Hospital records reviewed. Medications reviewed and reconciled. Rigoberto Rucker NP [address] [place] [address], [place], [address], [employer] 05/24/2024 22:24:32
--- NOTE | 2024-07-27 20:41 | XR_ITS ---
PROCEDURE INFORMATION: Exam: XR Chest Exam date and time: 07/27/2024 8:55 PM Age: 64 years old Clinical indication: Dyspnea TECHNIQUE: Imaging protocol: Radiologic exam of the chest. Views: 1 view. COMPARISON: CR XR CHEST PORTABLE 06/16/2024 10:46 PM FINDINGS: Lungs: Unremarkable. No consolidation. Pleural spaces: Unremarkable. No pleural effusion. No pneumothorax. Heart/Mediastinum: Cardiomegaly. Bones/joints: Thoracic spinal fixation hardware is unchanged. IMPRESSION: Cardiomegaly. No acute process.
[2024-07-27 20:46] LABS: Basophils # 0.1 K/mm3 (0-0.2); Basophils % 0.4 % (0.1-2.0); Eosinophils # 0.4 K/mm3 (0.0-0.4); Eosinophils % 3.4 % (0.1-12.0); Hematocrit 29.6 % (42.0-52.0); Hemoglobin 9.2 g/dL (14.1-18.0); Lymphocytes % 16.4 % (10-50); Mean Corpuscular HGB Conc 31.1 g/dL (31.8-35.4); Mean Corpuscular Volume 80.4 fl (80-94); Mean Platelet Volume 9.1 fl (7.4-10.4); Monocytes # 0.7 K/mm3 (0.1-1.0); Monocytes % 5.8 % (1.7-9.3); Neutrophils # 8.8 K/mm3 (1.8-7.8); Neutrophils % 72.7 % (37.0-80.0); Nucleated Red Blood Cells # 0 10^3/uL; Nucleated Red Blood Cells % 0 %; Platelet Count 354 K/mm3 (142-424); Red Blood Count 3.68 M/mm3 (4.60-6.20); Red Cell Distribution Width 17.6 % (11.5-17.5); Red Cell Distribution Width-SD 50.3 fL; White Blood Count 12.1 K/mm3 (4.8-10.8)
[2024-07-27] MEDS: ONDANSETRON 4MG/2ML VIAL 4 MG IV (20:47)
--- NOTE | 2024-07-27 20:50 | HMH.EDGENADL ---
Discharge Plan Disposition Patient Disposition: Home, Self-Care Chief Complaint: Shortness of Breath/Dyspnea Clinical Impressions Clinical Impression: Volume overload, Acute exacerbation of chronic heart failure, Dyspnea, Morbid obesity Discharge ED Provider: Jennifer Felix General Adult HPI General Chief complaint: Shortness of Breath/Dyspnea Stated complaint: shortness of air Time Seen by Provider: 07/27/24 20:24 Mode of Arrival: EMS Source of Information: Patient and EMS Description of Symptoms (Recalled from ER Triage Doc. by RN): Pt complains of feeling SOA and multiple wounds on his BLE and buttocks History of Present Illness HPI narrative: Patient is a 64-year-old man who is becoming a well-known patient to our emergency department has a history of morbid obesity chronic lower extremity lymphedema known history of heart failure with preserved ejection fraction atrial fibrillation chronically anticoagulated on Eliquis who presents today with increasing shortness of breath. States that he believes that he is 60 pounds or so up from his discharge dry weight. Denies any other significant symptoms fevers chills cough states that his sister who has been managing his wounds was concerned about the posterior right lower extremity ulceration which is causing him significant pain. Related Data Home Medications ?Medication ?Instructions ?Recorded ?Confirmed metoprolol succinate 50 mg 150 mg PO DAILY 07/18/24 07/18/24 tablet,extended release 24 hr Previous Rx's ?Medication ?Instructions ?Recorded apixaban 5 mg tablet (Eliquis) 5 mg PO BID 30 days #60 tabs 06/21/24 aspirin 81 mg tablet,delayed 81 mg PO DAILY 30 days #30 tabs 06/21/24 release atorvastatin 10 mg tablet 10 mg PO HS 30 days #30 tabs 06/21/24 diltiazem HCl 180 mg 360 mg (2 x 180 mg) PO DAILY 30 06/21/24 capsule,extended release 24 hr days #60 caps gabapentin 300 mg capsule 900 mg (3 x 300 mg) PO TID 30 days 06/21/24 #270 caps insulin glargine 100 unit/mL (3 60 unit (0.6 mL) SQ BID 30 days 06/21/24 mL) subcutaneous pen (Lantus #36 mL Solostar U-100 Insulin) irbesartan 75 mg tablet 37.5 mg (1/2 x 75 mg) PO DAILY 30 06/21/24 days #15 tabs pantoprazole 40 mg tablet,delayed 40 mg PO HS 30 days #30 tabs 06/21/24 release polyethylene glycol 3350 17 gram 17 g PO DAILY 30 days #30 ea 06/21/24 oral powder packet (HealthyLax) spironolactone 100 mg tablet 100 mg PO BIDL 30 days #60 tabs 07/18/24 bumetanide 2 mg tablet See Rx Instructions .Route 07/19/24 .COMPLEX 30 days #90 tabs metformin 500 mg tablet 1,000 mg (2 x 500 mg) PO BID 30 07/19/24 days #30 tabs ondansetron 4 mg disintegrating 4 mg PO Q8H PRN nausea and 07/20/24 tablet vomiting 4 days #12 tabs Allergies Allergy/AdvReac Type Severity Reaction Status Date / Time hydromorphone (From Dilaudid) AdvReac Vomiting Verified 07/17/24 13:54 morphine AdvReac Vomiting Verified 07/17/24 13:54 PFSH PFSH Disclaimer: The information contained in this section may have been updated after the patient was seen, as this information can be updated by other users. 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 Social History Smoking Status: Former smoker alcohol intake: never current occupational status: retired and disabled Travel in the last 8 weeks: None Have you lived/traveled outside [place] in past 30 days?: No Contact w/someone who lives/traveled outside US past 30 days?: No Exposure to someone with infectious disease in past 14 days?: No Do you have a fever (greater than 100.4 F or 38 C)?: No Have you tested positive for COVID-19: No Exposed to someone with COVID-19 in past 14 days?: No Do you have a sore throat?: No Do you have a cough?: No Do you have any weakness?: No Do you have any diarrhea?: No Are you experiencing any unusual bleeding?: No Do you have any muscle aches/pain?: No Do you have any abdominal pain?: No Are you experiencing loss of taste or smell?: No Other Medical History Have you received the Flu Vaccine for this season: No Have you received the Pneumonia Vaccine: No ROS Obtained: Yes All systems reviewed & no additional complaints except as documented Physical Exam General General appearance: alert, in no apparent distress and other (Morbidly obese) Respiratory Respiratory exam: Present normal lung sounds bilaterally; Absent respiratory distress Cardiovascular Cardiovascular exam: Present regular rate and normal rhythm Extremities Exam Extremities exam: Present other (Bilateral lower extremity severe edema on the posterior aspect of the right leg there is a superficial ulceration that has been well-managed for without any pathologic erythema or purulent drainage) Neurological Exam Neurological exam: Present alert and oriented X3 Medical Decision Making Medical Records Screening: Per USPSTF and CDC recommendations, given the prevalence of disease in our region, it is our hospital?s policy to screen for HIV and viral Hepatitis for all patients aged 18 and over and those with ongoing risk factors. Madi Inquiry Pt receiving controlled substance: No Vital Signs: 07/27/24 20:27 07/27/24 21:48 Temperature 98.8 F 98.9 F Temperature Source Axillary Pulse Rate 108 H Pulse Rate [Right Radial] 94 H Respiratory Rate 20 13 Blood Pressure 120/64 Blood Pressure [Right Arm] 137/73 Blood Pressure Mean [Right Arm] 94 Blood Pressure Source [Right Arm] Automatic Cuff 02 Sat by Pulse Oximetry 100 Oxygen Delivery Method Room Air Room Air Lab Data Lab results reviewed: Yes I reviewed the patient's lab results. Lab Results 07/27/24 20:35: WBC 12.1 H, RBC 3.68 L, Hgb 9.2 L, Hct 29.6 L, MCV 80.4, MCH 25.0 L, MCHC 31.1 L, RDW 17.6 H, Plt Count 354, MPV 9.1, Neut % (Auto) 72.7, Lymph % (Auto) 16.4, [place] % (Auto) 5.8, Eos % (Auto) 3.4, Baso % (Auto) 0.4, Neut # (Auto) 8.8 H, Lymph # (Auto) 2.0, [place] # (Auto) 0.7, Eos # (Auto) 0.4, Baso # (Auto) 0.1, D-Dimer 0.55 H, Sodium 137, Potassium 5.5 H, Chloride 101, Carbon Dioxide 27, Anion Gap 14.5, BUN 37 H, Creatinine 1.10, Estimated Creat Clear 82, Estimated GFR 68, Est GFR ( Amer) 82, Glucose 247 H, Calcium 9.1, Total Bilirubin 0.5, AST 24, ALT 17, Alkaline Phosphatase 143 H, Troponin I < 0.01, NT-Pro-B Natriuret Pep 2090 H, Total Protein 7.5, Albumin 3.7, Globulin 3.8 H, Albumin/Globulin Ratio 1.0 L 07/27/24 20:35 07/27/24 20:35 Orders (Tests/Meds): ED MEDICATIONS Generic Name Dose Route Start Last Admin Trade Name Freq PRN Reason Stop Dose Admin Acetaminophen 650 mg 07/27/24 21:53 Acetaminophen 325mg Tab PO 08/26/24 21:52 Q4HP PRN Fever or Mild Pain (1-3) Docusate Sodium 100 mg 07/28/24 09:00 Docusate Sodium 100 Mg Capsule PO 08/27/24 08:59 DAILY JESSICA Heparin Sodium (Porcine) 5,000 unit 07/28/24 09:00 Heparin Sodium 5,000 Unit/Ml Vial SUBCUT 08/27/24 08:59 TID JESSICA Ondansetron HCl 4 mg 07/27/24 21:53 Ondansetron 4mg/2ml Vial IV 08/26/24 21:52 Q8HP PRN Nausea Pantoprazole Sodium 40 mg 07/28/24 21:00 Pantoprazole 40mg Tablet PO 08/27/24 20:59 HS JESSICA Discontinued Medications Generic Name Dose Route Start Last Admin Trade Name Freq PRN Reason Stop Dose Admin Acetaminophen 1,000 mg 07/27/24 20:51 Acetaminophen 1,000mg/100ml Vial IV 07/27/24 20:52 ONCE ONE Ondansetron HCl 4 mg 07/27/24 20:44 07/27/24 20:47 Ondansetron 4mg/2ml Vial IV 07/27/24 20:45 4 mg ONCE ONE Administration ORDERS Category Date Time Status XR chest portable Stat Exams 07/27/24 20:41 Completed BNP [NT Pro Brain Natriuretic Pep.] Stat Lab 07/27/24 20:35 Completed CBC w/Auto Diff [Complete Blood Count Auto Diff] Stat Lab 07/27/24 20:35 Completed CMP [Comprehensive Metabolic Panel] Stat Lab 07/27/24 20:35 Completed D-Dimer Stat Lab 07/27/24 20:35 Completed Trop I [Troponin I] Stat Lab 07/27/24 20:35 Completed Troponin I Q3H Lab 07/27/24 23:45 Ordered Troponin I Q3H Lab 07/28/24 02:45 Ordered Medical Decision Narrative: 64-year-old morbidly obese with above history and physical presented today with worsening shortness of breath. Has a known history of heart failure with reduced ejection fraction chronic lymphedema likely is retaining fluid and heart failure exacerbation again. Does very well with IV Bumex when he comes into the hospital. States his oral Bumex has not been working. Will get basic blood work likely administer IV diuretics while in the emergency department. Other things in the differential would include pneumonia pulmonary embolism etc. However those are less likely. Reassessment 1015 patient remained stable chest x-ray performed I personally interpreted shows cardiomegaly but no significant thoracic abnormality. Radiology read consistent with this. Patient has mild hyperkalemia no significant renal insufficiency some mild anemia with a hemoglobin and hematocrit of 9 and 29. Overall patient has significant clinical whole body edema and states he is short of breath likely needs to be diuresed. States he has been having decreased response to his Bumex. Spoke with hospital medicine who agreed to admit him for further diuresis and management. Critical Care Critical Care Time Critical Care Time: No
[2024-07-27 20:51] VITALS: BP 123/50; PULSE 94; O2SAT 99
[2024-07-27 21:04] LABS: Alanine Aminotransferase 17 U/L (12-78); Albumin Level 3.7 g/dl (3.5-5.0); Alkaline Phosphatase 143 U/L (38-126); Anion Gap 14.5 mEq/L (5-15); Aspartate Amino Transferase 24 U/L (17-59); Bilirubin,Total 0.5 mg/dl (0.2-1.3); Blood Urea Nitrogen 37 mg/dl (9-20); Calcium 9.1 mg/dl (8.4-10.2); Carbon Dioxide 27 mmol/L (22.0-30.0); Chloride 101 mmol/L (98-107); Creatinine Clearance Estimated 82 mL/min (50-200); Estimated Glomerular Filt Rate 68 ml/min (>60); GFR (African American) 82 ML/MIN (>60); Globulin 3.8 g/dL (1.3-3.2); Glucose 247 mg/dl (74-100); Potassium 5.5 mmoL/L (3.5-5.1); Sodium 137 mmol/L (136-145); Total Protein,Serum 7.5 g/dl (6.3-8.2)
[2024-07-27 21:08] LABS: D-Dimer 0.55 ug/mL (0.0-0.5)
[2024-07-27 21:16] LABS: NT Pro Brain Natriuretic Pep. 2090 pg/mL (0-125)
[2024-07-27 21:24] VITALS: BMI 54.1
[2024-07-27 21:30] VITALS: BP 120/64; PULSE 88; RESP 16; O2SAT 100
[2024-07-27 21:50] LABS: Troponin I < 0.01 ng/ml (0.00-0.034)
--- NOTE | 2024-07-27 21:50 | P.HP_ITS ---
<Statement entered by Cullen Wu MD - 07/28/24 21:24> Rounded on patient after nurse practitioner. Personally examined and interviewed patient. Agree with exam findings and care plan as documented. Discussed with ER physician request admission due to volume overload, weeping legs, swelling and pain. Medicine agreed to admit for further management. Agree with Bumex drip. Will increase diabetic regimen. CBC, CMP, magnesium ordered for the morning to monitor kidney function, potassium, sodium. History of Present Illness *Admission Date: 07/27/24 *Reason for visit:: Shortness of breath, lower extremity swelling *History of present illness: A 64-year-old male with a history of morbid obesity, congestive heart failure with preserved ejection fraction (HFpEF, LVEF 55% on 06/17/2024 echocardiogram), diabetes mellitus, obstructive sleep apnea (LORI), chronic lower extremity lymphedema, multiple pressure wounds, and partial right foot amputation for osteomyelitis presents to the emergency department with increasing shortness of breath. He subjectively reports a 60-pound weight gain above his discharge dry weight, suggesting fluid retention, and denies fevers, chills, cough, or chest pain. Recheck weight actually shows weight loss from previous admission. His sister, managing his wounds, noted a painful posterior right lower extremity ulceration. He has frequent hospitalizations, including June and last week at this facility for volume overload and leg swelling, a 6-week stay at [facility] for heart failure, infected decubitus wounds, osteomyelitis, and debility, followed by rehab, and a 3-week readmission at [facility] for recurrent heart failure. He was discharged home without rehab placement due to ineligibility and personal preference. He is chronically anticoagulated on apixaban (Eliquis) for atrial fibrillation and reports poor response to oral bumetanide (Bumex), with IV Bumex effective during hospitalizations. The history was obtained through interactive discussion with the patient and sister, with the patient deemed reliable. On examination, the patient is hemodynamically stable, with significant whole- body edema and a painful right lower extremity ulceration. Physical exam is otherwise unremarkable from previous hospitalization and debility noted in prior records. Diagnostic workup includes labs and chest X-ray. Labs show leukocytosis (WBC 12.1), anemia (hemoglobin 9.2, hematocrit 29.6), hyperkalemia (potassium 5.5), elevated BUN (37), normal creatinine (1.1), GFR (68), elevated glucose (247), normal troponin (<0.01), elevated NT-proBNP (2090), elevated alkaline phosphatase (143), elevated globulin (3.8), and elevated D-dimer (0.55). Chest X-ray, independently interpreted, shows cardiomegaly without significant thoracic abnormality, consistent with radiology read and prior X-ray (06/16/2024). Treatments implemented in the emergency department include planned IV bumetanide (Bumex, dose not specified, assumed 1?2 mg), with no other interventions noted. . Hospital medicine accepted the patient for admission for further diuresis and management in stable condition. [facility] Disclaimer: The information contained in this section may have been updated after the patient was seen, as this information can be updated by other users. 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 Social History (Updated 07/28/24 @ 04:29 by Néstor Haines RN) Smoking Status: Former smoker alcohol intake: never current occupational status: retired and disabled Travel in the last 8 weeks: None Have you lived/traveled outside [place] in past 30 days?: No Contact w/someone who lives/traveled outside US past 30 days?: No Exposure to someone with infectious disease in past 14 days?: No Do you have a fever (greater than 100.4 F or 38 C)?: No Have you tested positive for COVID-19: No Exposed to someone with COVID-19 in past 14 days?: No Do you have a sore throat?: No Do you have a cough?: No Do you have any weakness?: No Do you have any diarrhea?: No Are you experiencing any unusual bleeding?: No Do you have any muscle aches/pain?: No Do you have any abdominal pain?: No Are you experiencing loss of taste or smell?: No Other Medical History Have you received the Flu Vaccine for this season: No Have you received the Pneumonia Vaccine: No Review of Systems Review of Systems Review of systems (narrative): 14 point review of systems negative except as listed in HPI Meds Home Medications and Allergies Home Medications ?Medication ?Instructions ?Recorded ?Confirmed ?Type apixaban 5 mg tablet (Eliquis) 5 mg PO BID 30 days #60 tabs 06/21/24 07/18/24 Rx aspirin 81 mg tablet,delayed 81 mg PO DAILY 30 days #30 tabs 06/21/24 07/18/24 Rx release atorvastatin 10 mg tablet 10 mg PO HS 30 days #30 tabs 06/21/24 07/18/24 Rx diltiazem HCl 180 mg 360 mg (2 x 180 mg) PO DAILY 30 06/21/24 07/18/24 Rx capsule,extended release 24 hr days #60 caps gabapentin 300 mg capsule 900 mg (3 x 300 mg) PO TID 30 days 06/21/24 07/18/24 Rx #270 caps insulin glargine 100 unit/mL (3 60 unit (0.6 mL) SQ BID 30 days 06/21/24 07/18/24 Rx mL) subcutaneous pen (Lantus #36 mL Solostar U-100 Insulin) irbesartan 75 mg tablet 37.5 mg (1/2 x 75 mg) PO DAILY 30 06/21/24 07/18/24 Rx days #15 tabs pantoprazole 40 mg tablet,delayed 40 mg PO HS 30 days #30 tabs 06/21/24 07/18/24 Rx release polyethylene glycol 3350 17 gram 17 g PO DAILY 30 days #30 ea 06/21/24 07/18/24 Rx oral powder packet (HealthyLax) metoprolol succinate 50 mg 150 mg PO DAILY 07/18/24 07/18/24 History tablet,extended release 24 hr spironolactone 100 mg tablet 100 mg PO BIDL 30 days #60 tabs 07/18/24 Rx bumetanide 2 mg tablet See Rx Instructions .Route 07/19/24 07/18/24 Rx .COMPLEX 30 days #90 tabs metformin 500 mg tablet 1,000 mg (2 x 500 mg) PO BID 30 07/19/24 07/18/24 Rx days #30 tabs ondansetron 4 mg disintegrating 4 mg PO Q8H PRN nausea and 07/20/24 Rx tablet vomiting 4 days #12 tabs New Prescriptions to Start Prescriptions: Allergies Allergy/AdvReac Type Severity Reaction Status Date / Time hydromorphone (From Dilaudid) AdvReac Vomiting Verified 07/17/24 13:54 morphine AdvReac Vomiting Verified 07/17/24 13:54 Exam Data for Last 24 hours Vital signs and Labs for Last 24 Hours: Temp Pulse Resp BP Pulse Ox O2 Del Method 98.9 F 108 H 13 120/64 100 Room Air 07/27/24 21:48 07/27/24 21:48 07/27/24 21:48 07/27/24 21:48 07/27/24 20:27 07/27/24 21:48 Laboratory Results - last 24 hr 07/27/24 20:35: WBC 12.1 H, RBC 3.68 L, Hgb 9.2 L, Hct 29.6 L, MCV 80.4, MCH 25.0 L, MCHC 31.1 L, RDW 17.6 H, Plt Count 354, MPV 9.1, Neut % (Auto) 72.7, Lymph % (Auto) 16.4, Ware % (Auto) 5.8, Eos % (Auto) 3.4, Baso % (Auto) 0.4, Neut # (Auto) 8.8 H, Lymph # (Auto) 2.0, Ware # (Auto) 0.7, Eos # (Auto) 0.4, Baso # (Auto) 0.1, D-Dimer 0.55 H, Sodium 137, Potassium 5.5 H, Chloride 101, Carbon Dioxide 27, Anion Gap 14.5, BUN 37 H, Creatinine 1.10, Estimated Creat Clear 82, Estimated GFR 68, Est GFR ( Amer) 82, Glucose 247 H, Calcium 9.1, Total Bilirubin 0.5, AST 24, ALT 17, Alkaline Phosphatase 143 H, Troponin I < 0.01, NT-Pro-B Natriuret Pep 2090 H, Total Protein 7.5, Albumin 3.7, Globulin 3.8 H, Albumin/Globulin Ratio 1.0 L I & O for Last 24 hours: Intake & Output 07/24/24 07/25/24 07/26/24 07/27/24 23:59 23:59 23:59 23:59 Weight 197.766 kg Constitutional Constitutional: mild distress, morbidly obese, chronically ill appearing, disheveled and cooperative *Routine HEENT Exam Head: Present normocephalic Eye: Present EOMI and PERRL ENT: Present mucous membranes moist *Routine Neck Exam Neck: Present supple; Absent lymphadenopathy *Routine Respiratory Exam Respiratory: Present prolonged expiratory phase, rhonchi, crackles (bases) and distant breath sounds; Absent wheezes *Routine Cardiovascular Exam Cardiovascular: Present RRR *Routine Abdominal Exam Abdominal: Present soft, normoactive bowel sounds and obese; Absent tenderness *Routine Rectal Exam Rectal:: deferred *Routine Genitalia Exam Genitalia:: deferred *Routine Extremities Exam Extremities: Present edema (3+ to thighs) and tenderness (Bilateral lower extremities. No significant warmth but legs are red from stasis); Absent cyanosis or clubbing *Routine Skin Exam Skin: Present cyanosis (Left foot), erythema (up left leg to thigh), warm, lesions, wounds and rash; Absent mottling Comments: Stasis changes in bilateral lower extremities. Ulcerations posterior lower extremities bilaterally with weeping of serous fluid. Numerous excoriations on extremities and torso *Routine Neurological Exam Neurological: Present alert, oriented X3 and moving all extremities; Absent altered mental status Assessment and Plan *Assessment and plan (1) Morbid obesity: Status: Acute Category: Medical Code(s): E66.01 - Morbid (severe) obesity due to excess calories (2) Dyspnea: Status: Acute Category: Medical Code(s): R06.00 - Dyspnea, unspecified (3) Volume overload: Status: Acute Category: Medical Code(s): E87.70 - Fluid overload, unspecified (4) Nausea & vomiting: Status: Acute Category: Medical Code(s): R11.2 - Nausea with vomiting, unspecified (5) Lymphedema: Status: Acute Category: Medical Code(s): I89.0 - Lymphedema, not elsewhere classified (6) Atrial fibrillation: Status: Acute Qualifiers: Atrial fibrillation type: unspecified chronic Qualified Code(s): I48.20 - Chronic atrial fibrillation, unspecified Category: Medical Code(s): I48.91 - Unspecified atrial fibrillation (7) History of amputation of right fourth toe: Status: Acute Category: Surgical Code(s): Z89.421 - Acquired absence of other right toe(s) (8) History of amputation of left fifth toe: Status: Acute Category: Surgical Code(s): Z89.422 - Acquired absence of other left toe(s) (9) Peripheral arterial disease: Status: Acute Category: Medical Code(s): I73.9 - Peripheral vascular disease, unspecified (10) Hypertension: Status: Acute Qualifiers: Hypertension type: primary hypertension Qualified Code(s): I10 - Essential (primary) hypertension Category: Medical Code(s): I10 - Essential (primary) hypertension (11) Sacral wound: Status: Acute Qualifiers: Encounter type: initial encounter Qualified Code(s): S31.000A - Unspecified open wound of lower back and pelvis without penetration into retroperitoneum, initial encounter Category: Medical Code(s): S31.000A - Unspecified open wound of lower back and pelvis without penetration into retroperitoneum, initial encounter (12) Diabetes mellitus: Status: Acute Qualifiers: Diabetes mellitus type: type 2 Diabetes mellitus [facility] 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 Diabetes mellitus complication status: with hyperglycemia Qualified Code(s): E11.65 - Type 2 diabetes mellitus with hyperglycemia Category: Medical Code(s): E11.9 - Type 2 diabetes mellitus without complications (13) LORI (obstructive sleep apnea): Status: Acute Category: Medical Code(s): G47.33 - Obstructive sleep apnea (adult) (pediatric) (14) Morbid obesity with BMI of 50.0-59.9, adult: Status: Acute Category: Medical Code(s): E66.01 - Morbid (severe) obesity due to excess calories; Z68.43 - Body mass index [BMI] 50.0-59.9, adult (15) Venous stasis ulcer of both lower extremities without varicose veins: Status: Acute Category: Medical Code(s): I87.2 - Venous insufficiency (chronic) (peripheral); L97.919 - Non-pressure chronic ulcer of unspecified part of right lower leg with unspecified severity; L97.929 - Non-pressure chronic ulcer of unspecified part of left lower leg with unspecified severity (16) Adult failure to thrive: Status: Acute Category: Medical Code(s): R62.7 - Adult failure to thrive (17) Acute on chronic heart failure with preserved ejection fraction (HFpEF): Status: Acute Category: Medical Code(s): I50.33 - Acute on chronic diastolic (congestive) heart failure Plan * Heart Failure Exacerbation with Preserved Ejection Fraction: Worsening shortness of breath, 60-pound weight gain, NT-proBNP 2089, cardiomegaly on chest X-ray, in a patient with HFpEF (LVEF 55%), morbid obesity, atrial fibrillation, diabetes, and LORI, with poor response to oral bumetanide. * Initiate Bumex drip, target output of 200 mL urine per hour, hold for SBP less than 90 * Monitor daily weights, input/output, and edema every 8 hours; restrict sodium to 2 g/day. * Order echocardiogram to reassess LVEF and diastolic function, comparing to 06/17/2024 (LVEF 55%). * Continue apixaban 5 mg twice daily for atrial fibrillation stroke prevention, monitoring for bleeding (hemoglobin 9.2). * Monitor for dyspnea, orthopnea, or worsening edema every 4 hours; consult cardiology for HFpEF optimization. * Recheck NT-proBNP in 24 hours to trend; target weight loss to approach dry weight. * Admit to medical-surgical floor with telemetry for diuresis and heart failure management. * Chronic Lower Extremity Lymphedema with Pressure Wounds: Painful posterior right lower extremity ulceration, likely a pressure wound, worsened by edema and obesity, with history of infected decubitus wounds and debility, in a patient with prior foot amputation. * Consult alternative financing specialist for ulcer assessment, debridement, and dressings; obtain wound culture to rule out infection. * Elevate right leg to reduce edema; apply multilayer compression wraps if tolerated, per wound care guidance. * Monitor ulcer for signs of infection (erythema, warmth, discharge) every 4 hours; order X-ray or MRI of right leg if osteomyelitis suspected (prior history). * Administer acetaminophen 650 mg oral every 6 hours as needed for pain; avoid NSAIDs due to renal (creatinine 1.1) and bleeding risks (Eliquis). * Continue diuresis as above to reduce lymphedema; monitor for new pressure wounds or skin breakdown every 8 hours. * Atrial Fibrillation, Chronic: Chronic A-fib on Eliquis, no current arrhythmia (HR 61 previously noted), but at risk with heart failure exacerbation, hyperkalemia (potassium 5.5), and diabetes. * Continue apixaban as above, ensuring no bleeding (monitor hemoglobin 9.2). * Monitor for palpitations, syncope, or tachycardia every 4 hours; repeat EKG if HR >100 or irregular rhythm noted. * Verify home rate-control medications (e.g., metoprolol); hold if BP <100 systolic due to diuresis. * Consult cardiology for A-fib management, considering rate vs. rhythm control post-diuresis. * Recheck potassium (5.5) every 6 hours to guide heart failure therapy adjustments. * Diabetes Mellitus: Elevated glucose 247, likely uncontrolled diabetes exacerbated by stress or infection in a patient with heart failure and obesity. * Administer sliding-scale insulin restart home Lantus regimen. * Monitor glucose every 6 hours; recheck with morning labs. * Educate patient on low-carb, heart-healthy diet to support diabetes and he art failure management. * Obstructive Sleep Apnea (LORI): History of LORI, likely contributing to heart failure and dyspnea, no mention of CPAP use, with significant debility valencia iting compliance. * Verify home CPAP use and ensure access during admission; encourage nightly use at prescribed settings. * Monitor for snoring, desaturations, or daytime somnolence every 8 hours; c heck oxygen saturation every 4 hours. * Consult pulmonology for LORI management optimization, especially with heart failure exacerbation. * Order overnight pulse oximetry if CPAP non-compliant to assess nocturnal hypoxia. * Hyperkalemia (Potassium 5.5): Mild hyperkalemia, likely from CKD (creatinine 1.1, GFR 68), heart failure medications, or diabetes, no EKG changes reported. * Administer insulin 10 units IV with 10 g dextrose IV to lower potassium followed by dextrose D50, and 1 g calcium gluconate; repeat if potassium remains >5.5 in 6 hours. * Recheck potassium every 6 hours until <5.0; avoid potassium-sparing diuretics (e.g., spironolactone) until resolved. * Monitor EKG for peaked T-waves or arrhythmias; obtain stat EKG if potassium rises above 6.0. * Anemia (Mild): Hemoglobin 9.2, hematocrit 29.6, likely chronic from heart failure, diabetes, or inflammation, no active bleeding noted. * Recheck CBC in 24 hours to monitor anemia; consult hematology if hemoglobin falls below 8.0 or symptoms (fatigue, dyspnea) worsen. * Monitor for pallor, fatigue, or new bleeding (e.g., melena) every 8 hours; ensure Eliquis safety. * Order iron studies and ferritin if anemia progresses to assess for deficiency vs. chronic disease. * Morbid Obesity and Debility: Morbid obesity and significant debility from prior hospitalizations, foot amputation, and pressure wounds, limiting mobility and complicating heart failure/lymphedema management. * Consult physical therapy for mobility assessment and safe ambulation post-diuresis; consider assistive devices, encourage bariatric bed, bariatric chair * Monitor for pressure ulcers or skin breakdown every 8 hours; ensure pressure-relieving mattress. * Consult dietitian for low-sodium, low-carb, heart-healthy diet to support weight loss, diabetes, and heart failure. * Engage social work to assess home support and rehab eligibility post- discharge. * Educate patient/family on weight management and mobility to reduce recurrence risk. * Chronic Kidney Disease (CKD, Stage 3): Creatinine 1.1, GFR 68, elevated BUN (37), stable, likely prerenal from heart failure or dehydration. * Continue IV fluids as above to support renal perfusion; monitor urine output every 4 hours, targeting >0.5 mL/kg/hour. * Avoid nephrotoxic agents (e.g., NSAIDs); adjust Eliquis dose if renal function worsens. Additional Orders: * Admit to stepdown floor for heart failure diuresis, lymphedema, and wound management. * Maintain telemetry for arrhythmia monitoring; check vitals every 2 hours, including glucose every 4 hours. * Offer acetaminophen 650 mg oral every 6 hours as needed; avoid NSAIDs. * Educate patient/family on heart failure, lymphedema, wound care, and diabetes management. * Consider echocardiogram, wound care consult, potassium recheck
[2024-07-27 21:56] VITALS: BP 114/54; PULSE 100; RESP 16; O2SAT 98
[2024-07-27] MEDS: ACETAMINOPHEN 1,000MG/100ML VIAL 1000 MG IV (22:18)
[2024-07-28] VITALS (14 sets, daily range): BP systolic 102–142; BP diastolic 42–86; PULSE 47–120; RESP 13–22; TEMP 36.3–37.2; O2SAT 92–100
--- NOTE | 2024-07-28 00:16 | PC.NURSE ---
Patient arrived to floor via wheelchair from ED at 00:14.
[2024-07-28 00:47] LABS: Troponin I < 0.01 ng/ml (0.00-0.034)
[2024-07-28] MEDS: DEXTROSE 50% 50ML SYRINGE (CRASH CART) 25 ML IVP (00:50)
[2024-07-28] MEDS: CALCIUM GLUC IN NACL, ISO-OSM 2 GM/100 ML BAG IV (00:50)
[2024-07-28] MEDS: INSULIN HUMAN REGULAR 100 UNITS/ML 10ML VIAL 10 UNIT IV (00:50)
[2024-07-28] MEDS: ONDANSETRON 4MG/2ML VIAL 4 MG IV ×3 (01:02→11:29)
[2024-07-28] MEDS: OXYCODONE 10MG W/APAP 325MG TABLET 1 EACH PO ×3 (01:02→14:24)
[2024-07-28] MEDS: BUMETANIDE 10 MG in 0.9 % SODIUM CHLORIDE 60 ML 5 MG IV (01:10)
[2024-07-28 01:22] LABS: POC Glucose,Bedside 236 (70-110)
--- NOTE | 2024-07-28 01:36 | PC.WOUNDNOTE ---
buttocks posterior upper right extremity posterior lower right extremity lateral right lower extremity
[2024-07-28 03:06] LABS: Troponin I < 0.01 ng/ml (0.00-0.034)
[2024-07-28] MEDS: humaLOG 100 UNITS/ML 10ML VIAL (SSI) SUBCUT ×4 (05:19→20:10)
[2024-07-28 05:21] LABS: POC Glucose,Bedside 337 (70-110)
[2024-07-28] MEDS: HYDROMORPHONE 2MG/ML SYRINGE 1 MG IV ×2 (05:27→09:24)
[2024-07-28 08:03] LABS: Basophils # 0.1 K/mm3 (0-0.2); Basophils % 0.4 % (0.1-2.0); Eosinophils # 0.5 K/mm3 (0.0-0.4); Eosinophils % 3.3 % (0.1-12.0); Hematocrit 31.3 % (42.0-52.0); Hemoglobin 9.7 g/dL (14.1-18.0); Lymphocytes # 2.3 K/mm3 (0.7-4.5); Lymphocytes % 16.7 % (10-50); Mean Corpuscular Hemoglobin 24.8 pg (27.0-31.2); Mean Corpuscular Volume 80.1 fl (80-94); Mean Platelet Volume 8.9 fl (7.4-10.4); Monocytes # 0.8 K/mm3 (0.1-1.0); Monocytes % 5.9 % (1.7-9.3); Neutrophils % 72.8 % (37.0-80.0); Nucleated Red Blood Cells # 0 10^3/uL; Nucleated Red Blood Cells % 0 %; Platelet Count 365 K/mm3 (142-424); Red Blood Count 3.91 M/mm3 (4.60-6.20); Red Cell Distribution Width 17.6 % (11.5-17.5); Red Cell Distribution Width-SD 49.8 fL; White Blood Count 13.8 K/mm3 (4.8-10.8)
[2024-07-28 08:08] LABS: Chloride 100 mmol/L (98-107); Potassium 5.3 mmoL/L (3.5-5.1); Sodium 137 mmol/L (136-145)
[2024-07-28 08:11] LABS: Anion Gap 15.3 mEq/L (5-15); Blood Urea Nitrogen 34 mg/dl (9-20); Calcium 9.1 mg/dl (8.4-10.2); Carbon Dioxide 27 mmol/L (22.0-30.0); Creatinine Clearance Estimated 82 mL/min (50-200); Estimated Glomerular Filt Rate 68 ml/min (>60); GFR (African American) 82 ML/MIN (>60); Glucose 260 mg/dl (74-100)
[2024-07-28 08:52] LABS: Magnesium 1.7 mg/dl (1.6-2.3); Phosphorous 4.1 mg/dl (2.5-4.5)
[2024-07-28] MEDS: GABAPENTIN 300MG CAPSULE 900 MG PO ×3 (09:00→20:09)
[2024-07-28] MEDS: SPIRONOLACTONE 25MG TABLET 100 MG PO ×2 (09:00→16:59)
[2024-07-28] MEDS: dilTIAZem HCL 180MG CAP.ER.24H 360 MG PO (09:01)
[2024-07-28] MEDS: ASPIRIN EC 81MG TABLET 81 MG PO (09:01)
[2024-07-28] MEDS: APIXABAN 5MG TABLET 5 MG PO ×2 (09:01→20:09)
[2024-07-28] MEDS: IRBESARTAN 75MG TABLET 37.5 MG PO (09:01)
[2024-07-28] MEDS: METOPROLOL SUCCINATE XL 50MG TABLET 150 MG PO (09:01)
[2024-07-28] MEDS: INSULIN GLARGINE 100 UNITS/ML 3ML FLEXPEN 70 UNIT SUBCUT ×2 (09:02→20:10)
[2024-07-28] MEDS: LIDOCAINE/PRILOCAINE 5GM TUBE 5 GM TP (09:29)
[2024-07-28 11:19] LABS: POC Glucose,Bedside 341 (70-110)
[2024-07-28 11:38] LABS: Anion Gap 16.4 mEq/L (5-15); Blood Urea Nitrogen 35 mg/dl (9-20); Calcium 9.4 mg/dl (8.4-10.2); Carbon Dioxide 26 mmol/L (22.0-30.0); Chloride 97 mmol/L (98-107); Creatinine Clearance Estimated 82 mL/min (50-200); Estimated Glomerular Filt Rate 68 ml/min (>60); GFR (African American) 82 ML/MIN (>60); Glucose 323 mg/dl (74-100); Potassium 5.4 mmoL/L (3.5-5.1); Sodium 134 mmol/L (136-145)
--- NOTE | 2024-07-28 12:02 | [facility].PTEV ---
Physical Therapy Evaluation Rehab PT IP Evaluation Start: 07/27/24 21:53 Freq: ONCE Status: Active Protocol: Document 07/28/24 11:18 NANCY (Rec: 07/28/24 12:02 NANCY [id number]) Subjective/History History History A 64-year-old male with a history of morbid obesity, congestive heart failure with preserved ejection fraction ( HFpEF, LVEF 55% on 06/17/2024 echocardiogram), diabetes mellitus, obstructive sleep apnea (LORI), chronic lower extremity lymphedema, multiple pressure wounds, and partial right foot amputation for osteomyelitis presents to the emergency department with increasing shortness of breath . Patient has significant whole-body edema and a painful right lower extremity ulceration. Subjective Subjective Patient presented sitting at edge of bed and completed a transfer with SBA using a RW to bedside chair. Patient has multiple wounds on buttocks and B LE. Patient was left in chair with nsg staff at bedside. [facility] How much help from another person do you currently need... Turning from your back to your side None while in a flat bed without using bedrails? Moving from lying on back to sitting on None the side of a flat bed without using bedrails? Moving to and from a bed to a chair ( None including a wheelchair)? Standing up from a chair using your arms None ? (e.g., wheelchair, bedside chair) Walking in hospital room? None Climbing 3-5 steps with a railing? None Mobility Score 24 Mobility Level [facility] Mobility Calculator Mobility 8 Walk 250 feet or more Rehab PT IP Eval Objective Appearance Patient Behavior Appropriate,Cooperative Patient Orientation Person,Place,Time Difficulty following instructions none Speech Pattern Clear,Appropriate Ambulation Patient Able to Ambulate Yes Ambulation Observation IP General Gait Pattern Observation Wide Based Gait Ambulation Distance (feet) 5 Ambulation Assistive Device Rolling Walker Ambulation Ability Supervision/Stand by Balance Ability to Arise Able, uses arms to help Sitting Balance Steady, safe Standing Balance Steady, wide stance Dynamic Sitting Balance Ability Normal Dynamic Standing Balance Ability Normal Transfers Bed Transfer Ability Supervision/Stand by Chair Transfer Ability Supervision/Stand by Sit to Stand Bed Transfer Ability Supervision/Stand by Sit to Stand Chair Transfer Ability Supervision/Stand by Rehab PT IP prob,goals,plan Problems Date of Evaluation: 07/28/24 Discharge Plan PT Discharge Plan Patient is currently appropriate to return home once medically stable to d/c with assistance for care of wounds and maintaining skin integrity. Skilled acute therapy is currently not indicated as patient can ambulate short distances independently as he did at baseline. Eval Complexity Eval Charge Codes 59717 - High Complexity PHYSICIAN CERTIFICATION: I certify the specified therapy services for Bebeto Christiansen are required, authorized, and reviewed every 30 days.
[2024-07-28] MEDS: humaLOG 100 UNITS/ML 10ML VIAL (SSI) 10 UNIT SUBCUT ×2 (12:23→17:00)
--- NOTE | 2024-07-28 13:23 | HMH.PHAINT1 ---
Pharmacy Intervention Comments: MEDICATION RECONCILIATION COMPLETED ON PATIENT USING EXTERNAL FILL HISTORY FROM PHARMACY AND DISCHARGE SUMMARY FROM PREVIOUS ADMISSION. -LISA CALDERON, JEANCARLOSD
--- NOTE | 2024-07-28 14:46 | SW/DCPLANNER ---
Patient is scheduled for wound care ([facility]) on 08/03/2024 at 11AM.
--- NOTE | 2024-07-28 16:28 | EXP.ACUTE.PN ---
Subjective *Date: 07/28/24 *Time: 21:13 Interval history: Continues to feel poorly morning. Stable on room air however. Having some nausea and dry heaves. Denies chest pain. Complaining of pain in his legs, mainly cramping in character. Wounds painful on back of his legs, right 1 in particular. Afebrile. Responding well to Bumex drip. -2 L so far since admission. When asked about his follow-ups after last admission, states he missed them because he was not feeling well. Stressed to him the importance of keeping his appointments as he is still yet to establish with a PCP which complicates the ability to care for him in the outpatient setting and is high risk for his readmissions. Medical Exam Vital signs and Labs for Last 24 Hours: Vital Signs Temp Pulse Pulse Pulse Resp BP BP 07/28/24 12:00 110 H 07/28/24 12:00 89 17 106/71 L 07/28/24 11:58 97.6 F 07/28/24 11:15 07/28/24 10:45 110 H 20 122/70 07/28/24 09:00 07/28/24 08:00 120 H 07/28/24 08:00 98 F 116 H 22 138/86 07/28/24 07:25 114 H 07/28/24 06:00 94 H 128/70 07/28/24 04:00 98.2 F 104 H 19 109/57 L 07/28/24 04:00 100 H 07/28/24 02:00 94 H 127/68 07/28/24 01:03 91 H 07/28/24 01:00 07/28/24 00:20 97.9 F 93 H 142/42 H 07/28/24 00:16 98.9 F 80 20 114/54 L 07/28/24 00:16 98.9 F 108 H 13 120/64 07/27/24 21:56 100 H 16 114/54 L 07/27/24 21:30 88 16 120/64 07/27/24 20:51 94 H 123/50 L 07/27/24 20:27 98.8 F 94 H 20 137/73 Pulse Ox O2 Del Method 07/28/24 12:00 07/28/24 12:00 96 Room Air 07/28/24 11:58 07/28/24 11:15 Room Air 07/28/24 10:45 93 L Room Air 07/28/24 09:00 Room Air 07/28/24 08:00 07/28/24 08:00 100 Room Air 07/28/24 07:25 99 Room Air 07/28/24 06:00 92 L Room Air 07/28/24 04:00 95 Room Air 07/28/24 04:00 07/28/24 02:00 07/28/24 01:03 07/28/24 01:00 Room Air 07/28/24 00:20 92 L Room Air 07/28/24 00:16 Room Air 07/28/24 00:16 Room Air 07/27/24 21:56 98 07/27/24 21:30 100 07/27/24 20:51 99 07/27/24 20:27 100 Room Air Intake and Output 07/28/24 07/28/24 07/28/24 07:59 15:59 23:59 Intake Total 0 862 862 / 862 Output Total 2199 / 4249 Balance -2200 / -3388 -1188 / -3388 0 / -3388 Intake: Intake, Oral Amount 0 810 810 / 810 Intake, Total IV Amount Bumetanide 10 mg In 0.9 % Sodium Chloride 60 ml @ 5 mls/ hr IV .Q20H [facility] Rx#:[id number] Output: Output, Urine Amount 2199 / 4250 2049 0 4249 Other: Number of Voids 0 0 Number of Unmeasured Voids 0 Number of Bowel Movements 1 Laboratory Results - last 24 hr 07/27/24 20:35: WBC 12.1 H, RBC 3.68 L, Hgb 9.2 L, Hct 29.6 L, MCV 80.4, MCH 25.0 L, MCHC 31.1 L, RDW 17.6 H, Plt Count 354, MPV 9.1, Neut % (Auto) 72.7, Lymph % (Auto) 16.4, [place] % (Auto) 5.8, Eos % (Auto) 3.4, Baso % (Auto) 0.4, Neut # (Auto) 8.8 H, Lymph # (Auto) 2.0, [place] # (Auto) 0.7, Eos # (Auto) 0.4, Baso # (Auto) 0.1, D-Dimer 0.55 H, Sodium 137, Potassium 5.5 H, Chloride 101, Carbon Dioxide 27, Anion Gap 14.5, BUN 37 H, Creatinine 1.10, Estimated Creat Clear 82, Estimated GFR 68, Est GFR ( Amer) 82, Glucose 247 H, Calcium 9.1, Total Bilirubin 0.5, AST 24, ALT 17, Alkaline Phosphatase 143 H, Troponin I < 0.01, NT-Pro-B Natriuret Pep 2090 H, Total Protein 7.5, Albumin 3.7, Globulin 3.8 H, Albumin/Globulin Ratio 1.0 L 07/28/24 00:05: Troponin I < 0.01 07/28/24 00:40: POC Glucose 236 H 07/28/24 02:32: Troponin I < 0.01 07/28/24 05:14: POC Glucose 337 H* 07/28/24 07:45: WBC 13.8 H, RBC 3.91 L, Hgb 9.7 L, Hct 31.3 L, MCV 80.1, MCH 24.8 L, MCHC 31.0 L, RDW 17.6 H, Plt Count 365, MPV 8.9, Neut % (Auto) 72.8, Lymph % (Auto) 16.7, [place] % (Auto) 5.9, Eos % (Auto) 3.3, Baso % (Auto) 0.4, Neut # (Auto) 10.0 H, Lymph # (Auto) 2.3, [place] # (Auto) 0.8, Eos # (Auto) 0.5 H, Baso # (Auto) 0.1, Sodium 137, Potassium 5.3 H, Chloride 100, Carbon Dioxide 27, Anion Gap 15.3 H, BUN 34 H, Creatinine 1.10, Estimated Creat Clear 82, Estimated GFR 68, Est GFR ( Amer) 82, Glucose 260 H, Calcium 9.1, Phosphorus 4.1, Magnesium 1.7 07/28/24 11:07: POC Glucose 341 H* 07/28/24 11:15: Sodium 134 L, Potassium 5.4 H, Chloride 97 L, Carbon Dioxide 26, Anion Gap 16.4 H, BUN 35 H, Creatinine 1.10, Estimated Creat Clear 82, Estimated GFR 68, Est GFR ( Amer) 82, Glucose 323 H D, Calcium 9.4 I & O for Labs for Last 24 Hours: Intake & Output 07/25/24 07/26/24 07/27/24 07/28/24 23:59 23:59 23:59 23:59 Intake Total 862 / 862 Output Total 4250 / 4250 Balance -3388 / -3388 Weight 197.766 kg Constitutional: Present mild distress, morbidly obese, chronically ill appearing and cooperative Head: Present atraumatic and normocephalic ENT: Present normal exam Comment:: Poor dentition Respiratory: Present distant breath sounds and normal respiratory effort; Absent accessory muscle use, respiratory distress, stridor, wheezes or crackles Cardiac: Present Reg Rate and Rhythm Comment:: Irregularly irregular, tachycardic GI: Present soft, distention and normal bowel sounds; Absent tenderness Rectal (male): Present normal inspection Comment:: Chronic stasis changes. Curlex wraps around bilateral legs. 3+ edema to thighs. Wounds weeping Skin: Present erythema (Bilateral lower legs) and wounds (Stasis ulceration, worse on right posterior leg) Neuro: Present Grossly Intact, alert, awake, oriented x 3 and moves all extremities Assessment and Plan *Assessment and plan (1) Acute on chronic heart failure with preserved ejection fraction (HFpEF): Status: Acute Category: Medical Code(s): I50.33 - Acute on chronic diastolic (congestive) heart failure (2) Morbid obesity with BMI of 50.0-59.9, adult: Status: Acute Category: Medical Code(s): E66.01 - Morbid (severe) obesity due to excess calories; Z68.43 - Body mass index [BMI] 50.0-59.9, adult (3) Volume overload: Status: Acute Qualifiers: Hypervolemia type: unspecified Qualified Code(s): E87.70 - Fluid overload, unspecified Category: Medical Code(s): E87.70 - Fluid overload, unspecified (4) Venous stasis ulcer of both lower extremities without varicose veins: Status: Acute Category: Medical Code(s): I87.2 - Venous insufficiency (chronic) (peripheral); L97.919 - Non-pressure chronic ulcer of unspecified part of right lower leg with unspecified severity; L97.929 - Non-pressure chronic ulcer of unspecified part of left lower leg with unspecified severity (5) Microcytic anemia: Status: Acute Category: Medical Code(s): D50.9 - Iron deficiency anemia, unspecified (6) Adult failure to thrive: Status: Acute Category: Medical Code(s): R62.7 - Adult failure to thrive (7) LORI (obstructive sleep apnea): Status: Acute Category: Medical Code(s): G47.33 - Obstructive sleep apnea (adult) (pediatric) (8) Diabetes mellitus: Status: Acute Qualifiers: Diabetes mellitus complication status: with hyperglycemia 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: without 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 use Diabetes mellitus type: type 2 Qualified Code(s): E11.65 - Type 2 diabetes mellitus with hyperglycemia Category: Medical Code(s): E11.9 - Type 2 diabetes mellitus without complications (9) Sacral wound: Status: Acute Qualifiers: Encounter type: initial encounter Qualified Code(s): S31.000A - Unspecified open wound of lower back and pelvis without penetration into retroperitoneum, initial encounter Category: Medical Code(s): S31.000A - Unspecified open wound of lower back and pelvis without penetration into retroperitoneum, initial encounter Plan 64-year-old male with morbid obesity, acute on chronic HFpEF, volume overload, lower extremity erythema. Admitted due to worsening volume overload. Patient reports missing his scheduled follow-ups to establish with primary care and cardiology. High risk for readmission. Case management assisting with care. Expressed to him that we are unsure how else to help when he is stable to discharge given the need to establish with outpatient providers. In light of previous efforts for close follow-up, patient has still not gone to his appointments. Has various obstacles including car trouble, not feeling well, recurrent admissions. Already has an appointment scheduled next week on Thursday. Stressed the importance of keeping this appointment. Continuing Bumex drip. Having response. Problems addressed as follows: Acute on Chronic HFpEF Atrial fibrillation Hypertension -Heart rate appears controlled at this time. Appears frankly volume overloaded. BNP 2000 -Down 2 L overnight. Continue Bumex drip 2 mg/hr - Fluid restrict to 2 L a day -Continue spironolactone 100 mg twice daily -Continue oral diltiazem 360 mg daily and metoprolol succinate 100 mg twice daily - Eliquis 5 mg twice daily. -Continue aspirin 81 mg daily for PAD. -Echo obtained last month with severe diastolic dysfunction but preserved ejection fraction. -Electrolytes stable this morning with sodium 137, potassium 5.5. Kidney function stable with BUN 37, creatinine 1.1. -Repeat CBC, CMP, magnesium ordered for the morning Diabetes: - A1c 9. 8 last admission. increase Lantus to 70 units twice daily. Continue sliding scale high intensity. Will consider scheduled mealtime at discharge -Morning glucose 247 -metformin to 1000 mg twice daily -Diabetic diet of 1500 jone -Holding Jardiance due to risk for Marilin's gangrene given groin wounds and retracted penis Stasis erythema/edema Leg pain -White count 12. Patient afebrile. n o significant wewrythema, weeping serous, no purulence. -Wound care consulted to assist with management of ulcerations on legs. - Continue dry dressing on wounds - EMLA for pain, initiate tizanidine for leg cramping 2mg TID - decreasing opiates to 5mg oxycodone q6hp due to concern for developing opiate dependence with withdrawal after dscharge due to withdrawal type sx once home Microcytic anemia: Hemoglobin 9.2. Platelets 354. Previous iron studies showed low levels. Transfusion threshold hemoglobin less than 7 LORI: Consider oxygen at night versus CPAP after discussion with patient about his home regimen. On room air at this time; goal sats greater 90% Morbid obesity complicates all aspects of his care. Wound care consulted to assist with legs and stasis ulcers, refer to outpt wound care after DC Full code eliquis 5mg BID Diabetic diet
[2024-07-28 16:50] LABS: POC Glucose,Bedside 307 (70-110)
[2024-07-28] MEDS: BUMETANIDE 10 MG in 0.9 % SODIUM CHLORIDE 60 ML 20 MG IV (16:59)
[2024-07-28 17:46] LABS: Chloride 96 mmol/L (98-107)
[2024-07-28 17:47] LABS: Potassium 5.4 mmoL/L (3.5-5.1); Sodium 135 mmol/L (136-145)
[2024-07-28 17:50] LABS: Anion Gap 15.4 mEq/L (5-15); Blood Urea Nitrogen 38 mg/dl (9-20); Calcium 9.3 mg/dl (8.4-10.2); Carbon Dioxide 29 mmol/L (22.0-30.0); Creatinine Clearance Estimated 75 mL/min (50-200); Estimated Glomerular Filt Rate 61 ml/min (>60); GFR (African American) 74 ML/MIN (>60); Glucose 311 mg/dl (74-100)
[2024-07-28] MEDS: PANTOPRAZOLE 40MG TABLET 40 MG PO (20:09)
[2024-07-28] MEDS: TIZANIDINE 4MG TABLET 2 MG PO (20:09)
[2024-07-28 20:44] LABS: POC Glucose,Bedside 340 (70-110)
[2024-07-28 23:38] LABS: Anion Gap 16.9 mEq/L (5-15); Blood Urea Nitrogen 42 mg/dl (9-20); Carbon Dioxide 28 mmol/L (22.0-30.0); Chloride 94 mmol/L (98-107); Creatinine Clearance Estimated 50 mL/min (50-200); Estimated Glomerular Filt Rate 38 ml/min (>60); GFR (African American) 46 ML/MIN (>60); Glucose 239 mg/dl (74-100); Potassium 5.9 mmoL/L (3.5-5.1); Sodium 133 mmol/L (136-145)
[2024-07-29] MEDS: OXYCODONE 10MG W/APAP 325MG TABLET 0.5 EACH PO ×2 (00:57→08:53)
[2024-07-29] MEDS: BUMETANIDE 10 MG in 0.9 % SODIUM CHLORIDE 60 ML 20 MG IV ×2 (02:12→07:15)
[2024-07-29] MEDS: ACETAMINOPHEN 325MG TAB 650 MG PO (03:04)
[2024-07-29] MEDS: HYDROMORPHONE 2MG/ML SYRINGE 1 MG IV (03:40)
[2024-07-29] MEDS: ONDANSETRON 4MG/2ML VIAL 4 MG IV (03:44)
[2024-07-29 04:00] VITALS: BP 100/60; PULSE 73; RESP 18; TEMP 36.4; O2SAT 100; BMI 54.1
--- NOTE | 2024-07-29 04:57 | PC.NURSE ---
Pt A&OX4 and has tolerated room air. Bumex gtt has remained at 20 ml/hr. Purewick in place and in draining well. He has complained of leg pain multiple times and was medicated per JUN. Dressings of BLE has remained c/d/i. Pt has remained up to the chair the majority of the shift. Currently resting with call light within reach.
[2024-07-29] MEDS: humaLOG 100 UNITS/ML 10ML VIAL (SSI) SUBCUT ×4 (06:28→22:00)
[2024-07-29] MEDS: humaLOG 100 UNITS/ML 10ML VIAL (SSI) 10 UNIT SUBCUT ×3 (06:28→16:26)
[2024-07-29 06:38] LABS: POC Glucose,Bedside 226 (70-110)
[2024-07-29 07:48] LABS: Basophils # 0.1 K/mm3 (0-0.2); Basophils % 0.4 % (0.1-2.0); Eosinophils # 0.6 K/mm3 (0.0-0.4); Eosinophils % 3.5 % (0.1-12.0); Hematocrit 32.1 % (42.0-52.0); Hemoglobin 9.7 g/dL (14.1-18.0); Lymphocytes # 2.7 K/mm3 (0.7-4.5); Mean Corpuscular HGB Conc 30.2 g/dL (31.8-35.4); Mean Corpuscular Hemoglobin 24.6 pg (27.0-31.2); Mean Corpuscular Volume 81.5 fl (80-94); Mean Platelet Volume 8.8 fl (7.4-10.4); Monocytes % 6.1 % (1.7-9.3); Neutrophils # 11.3 K/mm3 (1.8-7.8); Neutrophils % 71.9 % (37.0-80.0); Nucleated Red Blood Cells # 0 10^3/uL; Nucleated Red Blood Cells % 0 %; Platelet Count 395 K/mm3 (142-424); Red Blood Count 3.94 M/mm3 (4.60-6.20); Red Cell Distribution Width 17.7 % (11.5-17.5); Red Cell Distribution Width-SD 51.4 fL; White Blood Count 15.8 K/mm3 (4.8-10.8)
[2024-07-29 07:54] LABS: Chloride 93 mmol/L (98-107); MANUAL DIFFERENTIAL MANUAL DIFFERENTIAL (MANUAL DIFF); Potassium 5.5 mmoL/L (3.5-5.1); Sodium 133 mmol/L (136-145)
[2024-07-29 07:57] LABS: Anion Gap 19.5 mEq/L (5-15); Blood Urea Nitrogen 47 mg/dl (9-20); Carbon Dioxide 26 mmol/L (22.0-30.0); Creatinine Clearance Estimated 45 mL/min (50-200); Estimated Glomerular Filt Rate 34 ml/min (>60); GFR (African American) 41 ML/MIN (>60); Glucose 225 mg/dl (74-100)
[2024-07-29 08:00] VITALS: BP 110/76; PULSE 89; RESP 18; TEMP 36.5; O2SAT 96
[2024-07-29] MEDS: TIZANIDINE 4MG TABLET 2 MG PO ×3 (08:54→21:47)
[2024-07-29 08:56] LABS: Eosinophils % 1 % (0-3); Lymphocytes % 20 % (10-50); Monocytes % 1 % (2-9); Neutrophils % 78 % (42-76); Platelet Estimate Normal; RBC Morphology Normal; Total Cells Counted 100
[2024-07-29] MEDS: APIXABAN 5MG TABLET 5 MG PO ×2 (08:57→21:47)
[2024-07-29] MEDS: *PAT OWN MED* ASPIRIN EC 81MG TABLET 81 MG PO (08:58)
[2024-07-29] MEDS: METOPROLOL SUCCINATE XL 50MG TABLET 150 MG PO (08:59)
[2024-07-29] MEDS: DOCUSATE SODIUM 100 MG CAPSULE PO (08:59)
[2024-07-29] MEDS: SPIRONOLACTONE 100 MG 1 EACH PO (09:00)
[2024-07-29] MEDS: GABAPENTIN 300MG CAPSULE 900 MG PO ×3 (09:02→21:47)
[2024-07-29] MEDS: INSULIN GLARGINE 100 UNITS/ML 3ML FLEXPEN 70 UNIT SUBCUT ×2 (09:10→22:00)
[2024-07-29 09:18] LABS: POC Glucose,Bedside 183 (70-110)
[2024-07-29 12:00] VITALS: BP 111/74; PULSE 89; RESP 17; TEMP 36.6; O2SAT 96
[2024-07-29 12:49] VITALS: BMI 54.6
--- NOTE | 2024-07-29 12:58 | EXP.ACUTE.PN ---
Subjective *Date: 07/29/24 *Time: 21:24 Interval history: Seeing some improvement in his leg pain after starting muscle relaxer. Still having mild drainage from his right leg in particular. -4 L since admission. Denies chest pain shortness of breath. No nausea or vomiting. Patient does have slight bump in his creatinine today however. Tolerating p.o. intake. Afebrile. On room air Medical Exam Vital signs and Labs for Last 24 Hours: Vital Signs Temp Pulse Pulse Resp BP Pulse Ox O2 Del Method 07/29/24 12:51 Room Air 07/29/24 12:00 98 F 89 17 111/74 96 Room Air 07/29/24 11:00 Room Air 07/29/24 09:00 Room Air 07/29/24 08:00 Room Air 07/29/24 08:00 97.7 F 89 18 110/76 96 Room Air 07/29/24 06:47 Room Air 07/29/24 05:00 Room Air 07/29/24 04:00 97.5 F L 73 18 100/60 L 100 Room Air 07/29/24 03:00 Room Air 07/29/24 00:21 Room Air 07/28/24 23:55 97.4 F L 47 L 18 107/49 L 96 Room Air 07/28/24 23:00 Room Air 07/28/24 21:00 Room Air 07/28/24 20:00 Room Air 07/28/24 19:42 97.6 F 65 18 102/52 L 100 Room Air 07/28/24 18:45 Room Air 07/28/24 17:00 Room Air 07/28/24 16:00 97.8 F 76 19 136/77 97 Room Air 07/28/24 15:00 Room Air 07/28/24 13:00 Room Air Intake and Output 07/28/24 07/29/24 07/29/24 23:59 07:59 15:59 Intake Total 719.083 / 1581.083 100 / 460 360 / 460 Output Total 1150 / 5400 550 / 550 Balance -430.917 / -3818.917 -450 / -90 360 / -90 Intake: Intake, Oral Amount 540 / 1350 360 / 360 Intake, Total IV Amount 179.083 / 231.083 100 / 100 Output: Output, Urine Amount 1150 / 5400 550 / 550 Other: Number of Voids 0 700 Number of Unmeasured Voids 0 0 Weight 197.766 kg Patient Weight 07/29/24 23:59 Weight 197.766 kg Laboratory Results - last 24 hr 07/28/24 16:36: POC Glucose 307 H* 07/28/24 17:14: Sodium 135 L, Potassium 5.4 H, Chloride 96 L, Carbon Dioxide 29, Anion Gap 15.4 H, BUN 38 H, Creatinine 1.20, Estimated Creat Clear 75, Estimated GFR 61, Est GFR ( Amer) 74, Glucose 311 H, Calcium 9.3 07/28/24 20:08: POC Glucose 340 H* 07/28/24 23:12: Sodium 133 L, Potassium 5.9 H, Chloride 94 L, Carbon Dioxide 28, Anion Gap 16.9 H, BUN 42 H, Creatinine 1.80 H D, Estimated Creat Clear 50, Estimated GFR 38 L, Est GFR ( Amer) 46 L D, Glucose 239 H D, Calcium 9.0 07/29/24 06:26: POC Glucose 226 H 07/29/24 07:45: WBC 15.8 H, RBC 3.94 L, Hgb 9.7 L, Hct 32.1 L, MCV 81.5, MCH 24.6 L, MCHC 30.2 L, RDW 17.7 H, Plt Count 395, MPV 8.8, Neut % (Auto) 71.9, Lymph % (Auto) 17.0, [place] % (Auto) 6.1, Eos % (Auto) 3.5, Baso % (Auto) 0.4, Neut # (Auto) 11.3 H, Lymph # (Auto) 2.7, [place] # (Auto) 1.0, Eos # (Auto) 0.6 H, Baso # (Auto) 0.1, Total Counted 100, Neutrophils % (Manual) 78 H, Lymphocytes % (Manual) 20, Monocytes % (Manual) 1 L, Eosinophils % (Manual) 1, Platelet Estimate Normal, RBC Morphology Normal, Sodium 133 L, Potassium 5.5 H, Chloride 93 L, Carbon Dioxide 26, Anion Gap 19.5 H, BUN 47 H, Creatinine 2.00 H, Estimated Creat Clear 45, Estimated GFR 34 L, Est GFR ( Amer) 41 L, Glucose 225 H, Calcium 9.0 04/18/25 09:09: POC Glucose 183 H I & O for Labs for Last 24 Hours: Intake & Output 07/26/24 07/27/24 07/28/24 07/29/24 23:59 23:59 23:59 23:59 Intake Total 1581.083 / 1581.083 460 / 460 Output Total 5400 / 5400 550 / 550 Balance -3818.917 / -3818.917 -90 / -90 Weight 197.766 kg 197.766 kg Constitutional: Present no acute distress, morbidly obese, chronically ill appearing and cooperative Head: Present atraumatic and normocephalic ENT: Present normal exam Comment:: Poor dentition Respiratory: Present distant breath sounds and normal respiratory effort; Absent accessory muscle use, respiratory distress, stridor, wheezes or crackles Cardiac: Present Reg Rate and Rhythm Comment:: Irregularly irregular, tachycardic GI: Present soft, distention and normal bowel sounds; Absent tenderness Rectal (male): Present normal inspection Comment:: Chronic stasis changes. Curlex wraps around bilateral legs. 3+ edema to thighs. Wounds weeping Skin: Present erythema (Bilateral lower legs) and wounds (Stasis ulceration, worse on right posterior leg) Neuro: Present Grossly Intact, alert, awake, oriented x 3 and moves all extremities Assessment and Plan *Assessment and plan (1) Acute on chronic heart failure with preserved ejection fraction (HFpEF): Status: Acute Category: Medical Code(s): I50.33 - Acute on chronic diastolic (congestive) heart failure (2) LUPE (acute kidney injury): Status: Acute Category: Medical Code(s): N17.9 - Acute kidney failure, unspecified (3) Morbid obesity with BMI of 50.0-59.9, adult: Status: Acute Category: Medical Code(s): E66.01 - Morbid (severe) obesity due to excess calories; Z68.43 - Body mass index [BMI] 50.0-59.9, adult (4) Volume overload: Status: Acute Qualifiers: Hypervolemia type: unspecified Qualified Code(s): E87.70 - Fluid overload, unspecified Category: Medical Code(s): E87.70 - Fluid overload, unspecified (5) Venous stasis ulcer of both lower extremities without varicose veins: Status: Acute Category: Medical Code(s): I87.2 - Venous insufficiency (chronic) (peripheral); L97.919 - Non-pressure chronic ulcer of unspecified part of right lower leg with unspecified severity; L97.929 - Non-pressure chronic ulcer of unspecified part of left lower leg with unspecified severity (6) Microcytic anemia: Status: Acute Category: Medical Code(s): D50.9 - Iron deficiency anemia, unspecified (7) Adult failure to thrive: Status: Acute Category: Medical Code(s): R62.7 - Adult failure to thrive (8) LORI (obstructive sleep apnea): Status: Acute Category: Medical Code(s): G47.33 - Obstructive sleep apnea (adult) (pediatric) (9) Diabetes mellitus: Status: Acute Qualifiers: Diabetes mellitus type: type 2 Diabetes mellitus long-term insulin use: without long-term use Diabetes mellitus complication status: with hyperglycemia Qualified Code(s): E11.65 - Type 2 diabetes mellitus with hyperglycemia Category: Medical Code(s): E11.9 - Type 2 diabetes mellitus without complications (10) Sacral wound: Status: Acute Qualifiers: Encounter type: initial encounter Qualified Code(s): S31.000A - Unspecified open wound of lower back and pelvis without penetration into retroperitoneum, initial encounter Category: Medical Code(s): S31.000A - Unspecified open wound of lower back and pelvis without penetration into retroperitoneum, initial encounter Plan 64-year-old male with morbid obesity, acute on chronic HFpEF, volume overload, lower extremity erythema. Admitted due to worsening volume overload. Patient reports missing his scheduled follow-ups to establish with primary care and cardiology. High risk for readmission. Case management assisting with care. Expressed to him that we are unsure how else to help when he is stable to discharge given the need to establish with outpatient providers. In light of previous efforts for close follow-up, patient has still not gone to his appointments. Has various obstacles including car trouble, not feeling well, recurrent admissions. Already has an appointment scheduled next week on Thursday. Stressed the importance of keeping this appointment. Discontinue Bumex drip due to LUPE. Negative volume status since admission. Serial labs every 12 hours. Continues to require inpatient management. Problems addressed as follows: Acute on Chronic HFpEF Atrial fibrillation Hypertension -Heart rate appears controlled at this time. Appears frankly volume overloaded. BNP 1999 -Down 4 L since admission. Given LUPE, will hold Bumex. - Fluid restrict to 2 L a day -Continue spironolactone 100 mg twice daily - Continue metoprolol succinate 100 mg twice daily, hold oral diltiazem today due to LUPE and well-controlled heart rate along with soft blood pressure this morning. - Eliquis 5 mg twice daily. -Continue aspirin 81 mg daily for PAD. -Echo obtained last month with severe diastolic dysfunction but preserved ejection fraction. -Electrolytes stable this morning with sodium 133, potassium 5.5. Slight bump in creatinine, BUN 47, creatinine 2.0. Repeat CBC, CMP, magnesium ordered for the morning. Repeat BMP ordered for the evening, monitoring every 12 hours. Diabetes: - A1c 9.8 last admission. increase Lantus to 70 units twice daily. Continue sliding scale high intensity. Will consider scheduled mealtime at discharge -Morning glucose 225 -metformin to 1000 mg twice daily -Diabetic diet of 1500 jone -Holding Jardiance due to risk for Marilin's gangrene given groin wounds and retracted penis - Continue Lantus, increased to 70 units twice daily. Continue scheduled mealtime insulin increased to 15 units with meals plus sliding scale. Glucose is remaining in the 200s. Stasis erythema/edema Leg pain -White count 15. Patient afebrile. n o significant wewrythema, weeping serous, no purulence. -Wound care consulted to assist with management of ulcerations on legs. - Continue dry dressing on wounds - EMLA for pain, initiate tizanidine for leg cramping 2mg TID - decreasing opiates to 5mg hydrocodone today every 6 hours as needed. concern for developing opiate dependence with withdrawal after dscharge due to withdrawal type sx once home Microcytic anemia: Hemoglobin 9.7. Platelets 395. Cell lines consistent with hemoconcentration. Previous iron studies showed low levels. Transfusion threshold hemoglobin less than 7 LORI: Consider oxygen at night versus CPAP after discussion with patient about his home regimen. On room air at this time; goal sats greater 90% Morbid obesity complicates all aspects of his care. Wound care consulted to assist with legs and stasis ulcers, refer to outpt wound care after DC Full code eliquis 5mg BID Diabetic diet
[2024-07-29 16:00] VITALS: BP 116/68; PULSE 64; RESP 18; TEMP 36.6; O2SAT 96
[2024-07-29 17:37] LABS: POC Glucose,Bedside 279 (70-110)
[2024-07-29 17:37] LABS: POC Glucose,Bedside 236 (70-110)
--- NOTE | 2024-07-29 18:05 | PC.NURSE ---
AOX4, HAS SAT UP TO CHAIR FOR MOST OF THE SHIFT. TOLERATING ROOM AIR. PUREWICK IN PLACE. AMBULATED WITH WALKER AND STANDBY ASSIST TO RESTROOM,
[2024-07-29 18:18] LABS: Chloride 94 mmol/L (98-107); Potassium 5.6 mmoL/L (3.5-5.1); Sodium 131 mmol/L (136-145)
[2024-07-29 18:21] LABS: Alanine Aminotransferase 18 U/L (12-78); Alkaline Phosphatase 119 U/L (38-126); Anion Gap 15.6 mEq/L (5-15); Aspartate Amino Transferase 21 U/L (17-59); Bilirubin,Total 0.4 mg/dl (0.2-1.3); Blood Urea Nitrogen 55 mg/dl (9-20); Carbon Dioxide 27 mmol/L (22.0-30.0); Creatinine Clearance Estimated 42 mL/min (50-200); Estimated Glomerular Filt Rate 32 ml/min (>60); GFR (African American) 39 ML/MIN (>60); Total Protein,Serum 7.8 g/dl (6.3-8.2)
[2024-07-29 18:22] LABS: Calcium 8.7 mg/dl (8.4-10.2); Glucose 213 mg/dl (74-100)
[2024-07-29 18:39] LABS: Magnesium 1.9 mg/dl (1.6-2.3)
[2024-07-29 20:00] VITALS: BP 122/61; PULSE 86; RESP 20; TEMP 36.9; O2SAT 92
[2024-07-29 20:31] LABS: Albumin Level 4.1 g/dl (3.5-5.0); Albumin/Globulin Ratio 1.1 (1.1-1.8); Globulin 3.7 g/dL (1.3-3.2)
[2024-07-29] MEDS: PANTOPRAZOLE 40MG TABLET 40 MG PO (21:47)
[2024-07-29 22:25] LABS: POC Glucose,Bedside 302 (70-110)
[2024-07-30] VITALS (8 sets, daily range): BP systolic 101–124; BP diastolic 52–94; PULSE 67–120; RESP 17–24; TEMP 36.6–37; O2SAT 91–100; BMI 54.1
[2024-07-30] MEDS: ONDANSETRON 4MG/2ML VIAL 4 MG IV ×3 (00:40→18:35)
[2024-07-30] MEDS: HYDROCODONE/APAP 5/325 MG TABLET 1 TAB PO ×4 (00:45→19:52)
[2024-07-30] MEDS: LIDOCAINE/PRILOCAINE 5GM TUBE 5 GM TP ×2 (00:50→22:01)
--- NOTE | 2024-07-30 04:30 | PC.NURSE ---
Patient is alert and oriented x4. He was observed to be awake for the majority of the shift. Patient has remained up to chair for personal comfort. He had complaints of generalized pain; Ocate was given per MAR. Zofran was given once per MAR this shift per complaint of sudden nausea. Patient has significant swelling in his bilateral lower extremities. Both shins (with leaky ulcerations) remain wrapped. Dry, flaky skin noted throughout the patient's body. Right foot was newly dressed this shift, using an ABD pad, sterile Kerlix wrap, and coban. Other seeping wounds were noted, with one on the anterior side of his right foot and one towards the ball of the same foot, underneath the pinkie toe. Drainage appearance serosanguineous. Patient has open wounds on his lower buttocks as well; bleeding noted. Absorbent pads were changed regularly in patient's chair (where he has been resting this shift) to minimize constant exposure to moisture. Patient has been ambulating in his room/to the bathroom with standby assistance + use of a walker. He had one bowel movement this shift. A purewick remains in place; urine output emptied and documented accordingly. Scheduled medications administered as appropriately per MAR. Patient has consumed numerous snacks and fluids (daron stella and ice water). ACHS glucose checks performed. Vital signs stable. At this time, the patient is resting up to the chair without any further complaints. No new needs at this time. Call light within reach.
[2024-07-30] MEDS: humaLOG 100 UNITS/ML 10ML VIAL (SSI) SUBCUT ×4 (05:22→21:43)
[2024-07-30] MEDS: humaLOG 100 UNITS/ML 10ML VIAL (SSI) 15 UNIT SUBCUT ×3 (05:22→16:30)
[2024-07-30 05:46] LABS: POC Glucose,Bedside 266 (70-110)
[2024-07-30 08:23] LABS: Albumin Level 3.9 g/dl (3.5-5.0); Chloride 98 mmol/L (98-107); Sodium 130 mmol/L (136-145)
[2024-07-30 08:26] LABS: Alanine Aminotransferase 12 U/L (12-78); Albumin/Globulin Ratio 1.3 (1.1-1.8); Alkaline Phosphatase 124 U/L (38-126); Anion Gap 17.3 mEq/L (5-15); Aspartate Amino Transferase 27 U/L (17-59); Bilirubin,Total 0.5 mg/dl (0.2-1.3); Blood Urea Nitrogen 58 mg/dl (9-20); Carbon Dioxide 21 mmol/L (22.0-30.0); Creatinine Clearance Estimated 53 mL/min (50-200); Estimated Glomerular Filt Rate 41 ml/min (>60); GFR (African American) 50 ML/MIN (>60); Globulin 3.1 g/dL (1.3-3.2)
[2024-07-30 08:27] LABS: Calcium 8.7 mg/dl (8.4-10.2); Glucose 210 mg/dl (74-100)
[2024-07-30 08:29] LABS: Potassium 6.3 mmoL/L (3.5-5.1)
[2024-07-30] MEDS: LOKELMA 5GM PACKET 10 GM PO ×3 (09:12→21:51)
[2024-07-30] MEDS: TIZANIDINE 4MG TABLET 2 MG PO ×3 (09:17→21:40)
[2024-07-30] MEDS: BUMETANIDE 1 MG TABLET 2 MG PO ×2 (09:17→16:30)
[2024-07-30] MEDS: ASPIRIN EC 81MG TABLET 81 MG PO (09:18)
[2024-07-30] MEDS: DOCUSATE SODIUM 100 MG CAPSULE PO (09:18)
[2024-07-30] MEDS: APIXABAN 5MG TABLET 5 MG PO ×2 (09:19→21:40)
[2024-07-30] MEDS: METOPROLOL SUCCINATE XL 50MG TABLET 150 MG PO (09:19)
[2024-07-30] MEDS: GABAPENTIN 300MG CAPSULE 900 MG PO ×3 (09:24→21:40)
[2024-07-30] MEDS: INSULIN GLARGINE 100 UNITS/ML 3ML FLEXPEN 70 UNIT SUBCUT ×2 (09:29→21:42)
--- NOTE | 2024-07-30 09:41 | PC.NURSE ---
lab states they are unable to obtain blood cultures
--- NOTE | 2024-07-30 11:10 | ECG_ITS ---
APPROVED REPORT Exam: Resting ECG HR:110 bpm ECG Measurements Heart Rate 110 AXES QRSd 97 QRS 99 QT 316 T 51 QTc 381 Conclusion ATRIAL FIBRILLATION WITH RAPID VENTRICULAR RESPONSE BORDERLINE RIGHT AXIS DEVIATION [QRS AXIS > 90] LOW QRS VOLTAGE IN PRECORDIAL LEADS [QRS DEFLECTION < 1.0 mV IN CHEST LEADS] POSSIBLE ANTERIOR MYOCARDIAL INFARCTION , PROBABLY OLD [30 ms Q WAVE IN V3/V4, OR R < 0.2 mV IN V4] ABNORMAL RHYTHM ECG UNCONFIRMED REPORT Electronically signed by : Abimael Zee MD 07/31/2024 14:59:11
[2024-07-30] MEDS: PARoxetine 20MG TABLET 20 MG PO (12:25)
[2024-07-30] MEDS: dilTIAZem HCL 180MG CAP.ER.24H 360 MG PO (12:26)
[2024-07-30 12:34] LABS: POC Glucose,Bedside 283 (70-110)
[2024-07-30 12:34] LABS: POC Glucose,Bedside 174 (70-110)
[2024-07-30 16:31] LABS: Basophils % 0.3 % (0.1-2.0); Chloride 94 mmol/L (98-107); Eosinophils # 0.4 Kmm3 (0.0-0.4); Eosinophils % 3.2 % (0.1-12.0); Hematocrit 31.9 % (42.0-52.0); Hemoglobin 9.9 g/dL (14.1-18.0); Lymphocytes # 2.4 K/mm3 (0.7-4.5); Lymphocytes % 20.3 % (10-50); Mean Corpuscular Hemoglobin 24.9 pg (27.0-31.2); Mean Corpuscular Volume 80.2 fl (80-94); Mean Platelet Volume 8.9 fl (7.4-10.4); Monocytes # 0.7 K/mm3 (0.1-1.0); Monocytes % 5.6 % (1.7-9.3); Neutrophils # 8.1 K/mm3 (1.8-7.8); Neutrophils % 69.9 % (37.0-80.0); Nucleated Red Blood Cells # 0 10^3/uL; Nucleated Red Blood Cells % 0 %; Platelet Count 400 K/mm3 (142-424); Potassium 5.3 mmoL/L (3.5-5.1); Red Blood Count 3.98 M/mm3 (4.60-6.20); Red Cell Distribution Width 17.6 % (11.5-17.5); Red Cell Distribution Width-SD 51.2 fL; Sodium 132 mmol/L (136-145); White Blood Count 11.6 K/mm3 (4.8-10.8)
[2024-07-30 16:34] LABS: Anion Gap 15.3 mEq/L (5-15); Blood Urea Nitrogen 54 mg/dl (9-20); Calcium 8.9 mg/dl (8.4-10.2); Carbon Dioxide 28 mmol/L (22.0-30.0); Creatinine Clearance Estimated 56 mL/min (50-200); Estimated Glomerular Filt Rate 44 ml/min (>60); GFR (African American) 53 ML/MIN (>60); Glucose 178 mg/dl (74-100)
[2024-07-30 17:01] LABS: Microscopic, Urine URINE MICROSCOPIC (MICROSCOPIC)
--- NOTE | 2024-07-30 17:01 | PC.NURSE ---
aox4, has sat up to chair for duration of shift. leg dsg changed today.
[2024-07-30 17:21] LABS: Appearance,Urine CLEAR (Clear); Bilirubin,Urine Negative (Negative); Blood, Urine Negative (Negative); Color,Urine YELLOW (Yellow); Glucose,Urine (UA) Negative (Negative); Ketones,Urine Negative (Negative); Leukocyte Esterase,Urine Negative (Negative); Nitrate,Urine Negative (Negative); Protein,Urine Negative (Negative); Urobilinogen,Urine 0.2 EU/dl (0.2)
[2024-07-30 18:24] LABS: POC Glucose,Bedside 235 (70-110)
[2024-07-30 18:44] LABS: POC Glucose,Bedside 207 (70-110)
[2024-07-30 20:55] LABS: POC Glucose,Bedside 175 (70-110)
--- NOTE | 2024-07-30 21:21 | P.PN_ITS ---
Subjective *Date: 07/30/24 *Time: 21:21 Interval history: Patient doing well, LUPE improving. Restarted Bumex 2 mg twice daily. Consider increasing to 3 times daily if LUPE continues to improve. Exam Data for Last 24 hours Vital signs and Labs for Last 24 Hours: Temp Pulse Resp BP Pulse Ox O2 Del Method 97.8 F 72 20 104/58 L 97 Room Air 07/30/24 19:42 07/30/24 19:42 07/30/24 19:42 07/30/24 19:42 07/30/24 19:42 07/30/24 19:42 Laboratory Results - last 24 hr 07/29/24 21:52: POC Glucose 302 H* 07/30/24 05:07: POC Glucose 266 H 07/30/24 06:30: Magnesium 2.0 07/30/24 07:00: Sodium 130 L, Potassium 6.3 H*, Chloride 98, Carbon Dioxide 21 L , Anion Gap 17.3 H, BUN 58 H, Creatinine 1.70 H, Estimated Creat Clear 53, Estimated GFR 41 L, Est GFR ( Amer) 50 L D, Glucose 210 H, Calcium 8.7, Total Bilirubin 0.5, AST 27 D, ALT 12 D, Alkaline Phosphatase 124, Total Protein 7.0, Albumin 3.9, Globulin 3.1, Albumin/Globulin Ratio 1.3 07/30/24 09:28: POC Glucose 174 H 07/30/24 12:11: POC Glucose 283 H 07/30/24 15:36: POC Glucose 235 H 07/30/24 16:10: WBC 11.6 H, RBC 3.98 L, Hgb 9.9 L, Hct 31.9 L, MCV 80.2, MCH 24.9 L, MCHC 31.0 L, RDW 17.6 H, Plt Count 400, MPV 8.9, Neut % (Auto) 69.9, Lymph % (Auto) 20.3, [place] % (Auto) 5.6, Eos % (Auto) 3.2, Baso % (Auto) 0.3, Neut # (Auto) 8.1 H, Lymph # (Auto) 2.4, [place] # (Auto) 0.7, Eos # (Auto) 0.4, Baso # (Auto) 0.0, Sodium 132 L, Potassium 5.3 H, Chloride 94 L, Carbon Dioxide 28, Anion Gap 15.3 H, BUN 54 H, Creatinine 1.60 H, Estimated Creat Clear 56, Estimated GFR 44 L, Est GFR ( Amer) 53 L, Glucose 178 H, Calcium 8.9 07/30/24 16:55: Urine Color Yellow, Urine Appearance Clear, Urine pH 6.0, Ur Specific [place] 1.020, Urine Protein Negative, Urine Glucose (UA) Negative, Urine Ketones Negative, Urine Blood Negative, Urine Nitrate Negative, Urine Bilirubin Negative, Urine Urobilinogen 0.2, Ur Leukocyte Esterase Negative, Urine RBC None, Urine WBC None, Ur Squamous Epith Cells None, Urine Bacteria None 07/30/24 18:32: POC Glucose 207 H 07/30/24 20:26: POC Glucose 175 H I & O for Last 24 hours: Intake & Output 07/27/24 07/28/24 07/29/24 07/30/24 23:59 23:59 23:59 23:59 Intake Total 1581.083 / 3782.778 8127 / 2290 2304 / 2304 Output Total 5400 / 5400 2050 / 2050 1150 / 1150 Balance -3818.917 / -3818.917 -780 / 240 1154 / 1154 Weight 197.766 kg 197 kg 197.766 kg Constitutional Constitutional: no acute distress Comments: Anasarca. *Routine Respiratory Exam Respiratory: Present rhonchi and symmetric chest movement *Routine Cardiovascular Exam Cardiovascular: Present RRR, Normal S1 and Normal S2 *Routine Abdominal Exam Abdominal: Present soft and normoactive bowel sounds; Absent tenderness *Routine Extremities Exam Extremities: Present edema, full ROM and normal capillary refill *Routine Skin Exam Skin: Present intact, dry and warm Detailed Neck Exam: Thyroids Thyroid: Absent bruit Assessment and Plan *Assessment and plan (1) Acute on chronic heart failure with preserved ejection fraction (HFpEF): Status: Acute Category: Medical Code(s): I50.33 - Acute on chronic diastolic (congestive) heart failure (2) LUPE (acute kidney injury): Status: Acute Category: Medical Code(s): N17.9 - Acute kidney failure, unspecified (3) Morbid obesity with BMI of 50.0-59.9, adult: Status: Acute Category: Medical Code(s): E66.01 - Morbid (severe) obesity due to excess calories; Z68.43 - Body mass index [BMI] 50.0-59.9, adult (4) Volume overload: Status: Acute Qualifiers: Hypervolemia type: unspecified Qualified Code(s): E87.70 - Fluid overload, unspecified Category: Medical Code(s): E87.70 - Fluid overload, unspecified (5) Venous stasis ulcer of both lower extremities without varicose veins: Status: Acute Category: Medical Code(s): I87.2 - Venous insufficiency (chronic) (peripheral); L97.919 - Non-pressure geophysical engineer latonya ulcer of unspecified part of right lower leg with unspecified severity; L97.929 - Non-pressure chronic ulcer of unspecified part of left lower leg with unspecified severity (6) Microcytic anemia: Status: Acute Category: Medical Code(s): D50.9 - Iron deficiency anemia, unspecified (7) Adult failure to thrive: Status: Acute Category: Medical Code(s): R62.7 - Adult failure to thrive (8) LORI (obstructive sleep apnea): Status: Acute Category: Medical Code(s): G47.33 - Obstructive sleep apnea (adult) (pediatric) (9) Diabetes mellitus: Status: Acute Qualifiers: Diabetes mellitus type: type 2 Diabetes mellitus custodial insulin use: without long term care pharmacist use Diabetes mellitus complication status: with hyperglycemia Qualified Code(s): E11.65 - Type 2 diabetes mellitus with hyperglycemia Category: Medical Code(s): E11.9 - Type 2 diabetes mellitus without complications (10) Sacral wound: Status: Acute Qualifiers: Encounter type: initial encounter Qualified Code(s): S31.000A - Unspecified open wound of lower back and pelvis without penetration into retroperitoneum, initial encounter Category: Medical Code(s): S31.000A - Unspecified open wound of lower back and pelvis without penetration into retroperitoneum, initial encounter Plan 64-year-old male with morbid obesity, acute on chronic HFpEF, volume overload, lower extremity erythema. Admitted due to worsening volume overload. Patient reports missing his scheduled follow-ups to establish with primary care and cardiology. High risk for readmission. Case management assisting with care. Expressed to him that we are unsure how else to help when he is stable to discharge given the need to establish with outpatient providers. In light of previous efforts for close follow-up, patient has still not gone to his appointments. Has various obstacles including car trouble, not feeling well, recurrent admissions. Already has an appointment scheduled next week on Thursday. Stressed the importance of keeping this appointment. Discontinue Bumex drip due to LUPE. Negative volume status since admission. Serial labs every 12 hours. Continues to require inpatient management. Problems addressed as follows: Acute on Chronic HFpEF Atrial fibrillation Hypertension - Heart rate appears controlled at this time. Appears frankly volume overloaded. BNP 2000 ? Restarted Bumex 2 mg twice daily, LUPE improving. - Continue spironolactone 100 mg twice daily - Continue metoprolol succinate 100 mg twice daily, diltiazem. - Eliquis 5 mg twice daily. -Continue aspirin 81 mg daily for PAD. -Echo obtained last month with severe diastolic dysfunction but preserved ejection fraction. Repeat CBC, CMP, magnesium ordered for the morning. #Hypokalemia ? Potassium 6.2 this morning, improved with Kayexalate 10g 3 times daily. Diabetes: - A1c 9.8 last admission. increase Lantus to 70 units twice daily. Continue sliding scale high intensity. Will consider scheduled mealtime at discharge -metformin to 1000 mg twice daily -Diabetic diet of 1500 jone -Holding Jardiance due to risk for Marilin's gangrene given groin wounds and retracted penis - Continue Lantus, increased to 70 units twice daily. Continue scheduled mealtime insulin increased to 15 units with meals plus sliding scale. Stasis erythema/edema Leg pain -Wound care consulted to assist with management of ulcerations on legs. - Continue dry dressing on wounds - EMLA for pain, initiate tizanidine for leg cramping 2mg TID - decreasing opiates to 5mg hydrocodone today every 6 hours as needed. concern for developing opiate dependence with withdrawal after dscharge due to withdrawal type sx once home Microcytic anemia: Hemoglobin 9.7. Platelets 395. Cell lines consistent with hemoconcentration. Previous iron studies showed low levels. Transfusion threshold hemoglobin less than 7 LORI: Consider oxygen at night versus CPAP after discussion with patient about his home regimen. On room air at this time; goal sats greater 90% Morbid obesity complicates all aspects of his care. Wound care consulted to assist with legs and stasis ulcers, refer to outpt wound care after DC Full code eliquis 5mg BID Diabetic diet
[2024-07-30] MEDS: PANTOPRAZOLE 40MG TABLET 40 MG PO (21:40)
[2024-07-30] MEDS: diazePAM 10MG/2ML SYRINGE 2 MG IV (22:47)
[2024-07-31] VITALS (7 sets, daily range): BP systolic 107–136; BP diastolic 61–88; PULSE 60–80; RESP 16–20; TEMP 36.4–36.6; O2SAT 96–98; BMI 54.1
[2024-07-31] MEDS: ONDANSETRON 4MG/2ML VIAL 4 MG IV ×3 (00:53→13:55)
[2024-07-31] MEDS: HYDROCODONE/APAP 5/325 MG TABLET 1 TAB PO (03:30)
--- NOTE | 2024-07-31 05:15 | PC.NURSE ---
Pt. is alert and orientated x 4. Pt. is on room air. Pt. c/o BLE extremity pain right leg more than left leg. BLE very edematous . Pt. has BLE ulcertive wounds, seeping clear fluids. right leg dressing changed this shift. Pt. c/o cramping pain. Pt. requested Dilaudid but providers did not agree. Due to cramping pain, Pt. medicated with one time dose of Valium . Pt. got some relief of pain with the Valium. Pt. up in chair this whole shift. states that he can not lay down in the bed. Pt. encouaged to have legs elevated. P.t has wounds on buttocks. Pt. did ambulate from the chair to the bathroom 3 times this shift. Pt. had one BM. Purewick in place. Pt. with multiple c/o pain and cramping and not being happy about not getting Dilauidid as requested. Personal items and call wynne in reach.
[2024-07-31] MEDS: humaLOG 100 UNITS/ML 10ML VIAL (SSI) SUBCUT ×4 (06:15→20:32)
[2024-07-31 06:16] LABS: POC Glucose,Bedside 240 (70-110)
[2024-07-31] MEDS: humaLOG 100 UNITS/ML 10ML VIAL (SSI) 15 UNIT SUBCUT ×3 (06:16→16:46)
[2024-07-31] MEDS: TIZANIDINE 4MG TABLET 4 MG PO ×3 (06:38→20:16)
[2024-07-31 08:10] LABS: Basophils % 0.3 % (0.1-2.0); Eosinophils # 0.3 Kmm3 (0.0-0.4); Eosinophils % 2.5 % (0.1-12.0); Hemoglobin 9.3 g/dL (14.1-18.0); Lymphocytes % 16.6 % (10-50); Mean Corpuscular Hemoglobin 24.8 pg (27.0-31.2); Mean Platelet Volume 9.3 fl (7.4-10.4); Monocytes # 0.7 K/mm3 (0.1-1.0); Monocytes % 5.8 % (1.7-9.3); Neutrophils # 8.8 K/mm3 (1.8-7.8); Neutrophils % 74.2 % (37.0-80.0); Nucleated Red Blood Cells # 0 10^3/uL; Nucleated Red Blood Cells % 0 %; Platelet Count 407 K/mm3 (142-424); Red Blood Count 3.75 M/mm3 (4.60-6.20); Red Cell Distribution Width 17.5 % (11.5-17.5); Red Cell Distribution Width-SD 50.2 fL; White Blood Count 11.8 K/mm3 (4.8-10.8)
[2024-07-31 08:38] LABS: Albumin Level 4.1 g/dl (3.5-5.0); Chloride 93 mmol/L (98-107); Potassium 5.4 mmoL/L (3.5-5.1); Sodium 133 mmol/L (136-145)
[2024-07-31 08:40] LABS: Blood Urea Nitrogen 56 mg/dl (9-20); Creatinine Clearance Estimated 56 mL/min (50-200); Estimated Glomerular Filt Rate 44 ml/min (>60); GFR (African American) 53 ML/MIN (>60)
[2024-07-31 08:41] LABS: Alanine Aminotransferase 15 U/L (12-78); Albumin/Globulin Ratio 1.1 (1.1-1.8); Alkaline Phosphatase 118 U/L (38-126); Anion Gap 16.4 mEq/L (5-15); Aspartate Amino Transferase 23 U/L (17-59); Bilirubin,Total 0.3 mg/dl (0.2-1.3); Carbon Dioxide 29 mmol/L (22.0-30.0); Globulin 3.6 g/dL (1.3-3.2); Glucose 223 mg/dl (74-100); Magnesium 2.2 mg/dl (1.6-2.3); Total Protein,Serum 7.7 g/dl (6.3-8.2)
[2024-07-31] MEDS: APIXABAN 5MG TABLET 5 MG PO ×2 (09:21→20:16)
[2024-07-31] MEDS: ASPIRIN EC 81MG TABLET 81 MG PO (09:21)
[2024-07-31] MEDS: BUMETANIDE 1 MG TABLET 2 MG PO ×3 (09:22→16:51)
[2024-07-31] MEDS: dilTIAZem ER 180 MG CAPSULE 360 MG PO (09:23)
[2024-07-31] MEDS: METOPROLOL SUCCINATE XL 50MG TABLET 150 MG PO (09:24)
[2024-07-31] MEDS: INSULIN GLARGINE 100 UNITS/ML 3ML FLEXPEN 70 UNIT SUBCUT ×2 (09:24→20:32)
[2024-07-31] MEDS: PARoxetine 20MG TABLET 20 MG PO (09:25)
[2024-07-31] MEDS: GABAPENTIN 300MG CAPSULE 900 MG PO ×3 (09:27→20:16)
[2024-07-31] MEDS: SPIRONOLACTONE 25MG TABLET 100 MG PO (09:27)
[2024-07-31 11:42] LABS: POC Glucose,Bedside 185 (70-110)
--- NOTE | 2024-07-31 16:11 | EXP.PN ---
Subjective *Date: 07/31/24 *Time: 16:11 Interval history: Patient feeling better today, improvement of edema. Increase Bumex 2 mg to 3 times daily. Follow-up response, kidney function. Anticipate discharge tomorrow if stable on this regimen. Exam Data for Last 24 hours Vital signs and Labs for Last 24 Hours: Temp Pulse Resp BP Pulse Ox O2 Del Method 98 F 68 18 107/72 L 98 Room Air 07/31/24 12:00 07/31/24 15:53 07/31/24 15:53 07/31/24 15:53 07/31/24 15:53 07/31/24 15:53 Laboratory Results - last 24 hr 07/30/24 15:36: POC Glucose 235 H 07/30/24 16:10: WBC 11.6 H, RBC 3.98 L, Hgb 9.9 L, Hct 31.9 L, MCV 80.2, MCH 24.9 L, MCHC 31.0 L, RDW 17.6 H, Plt Count 400, MPV 8.9, Neut % (Auto) 69.9, Lymph % (Auto) 20.3, [place] % (Auto) 5.6, Eos % (Auto) 3.2, Baso % (Auto) 0.3, Neut # (Auto) 8.1 H, Lymph # (Auto) 2.4, [place] # (Auto) 0.7, Eos # (Auto) 0.4, Baso # (Auto) 0.0, Sodium 132 L, Potassium 5.3 H, Chloride 94 L, Carbon Dioxide 28, Anion Gap 15.3 H, BUN 54 H, Creatinine 1.60 H, Estimated Creat Clear 56, Estimated GFR 44 L, Est GFR ( Amer) 53 L, Glucose 178 H, Calcium 8.9 07/30/24 16:55: Urine Color Yellow, Urine Appearance Clear, Urine pH 6.0, Ur Specific [place] 1.020, Urine Protein Negative, Urine Glucose (UA) Negative, Urine Ketones Negative, Urine Blood Negative, Urine Nitrate Negative, Urine Bilirubin Negative, Urine Urobilinogen 0.2, Ur Leukocyte Esterase Negative, Urine RBC None, Urine WBC None, Ur Squamous Epith Cells None, Urine Bacteria None 07/30/24 18:32: POC Glucose 207 H 07/30/24 20:26: POC Glucose 175 H 07/31/24 06:04: POC Glucose 240 H 07/31/24 06:50: WBC 11.8 H, RBC 3.75 L, Hgb 9.3 L, Hct 30.0 L, MCV 80.0, MCH 24.8 L, MCHC 31.0 L, RDW 17.5, Plt Count 407, MPV 9.3, Neut % (Auto) 74.2, Lymph % (Auto) 16.6, [place] % (Auto) 5.8, Eos % (Auto) 2.5, Baso % (Auto) 0.3, Neut # (Auto) 8.8 H, Lymph # (Auto) 2.0, [place] # (Auto) 0.7, Eos # (Auto) 0.3, Baso # (Auto) 0.0, Sodium 133 L, Potassium 5.4 H, Chloride 93 L, Carbon Dioxide 29, Anion Gap 16.4 H, BUN 56 H, Creatinine 1.60 H, Estimated Creat Clear 56, Estimated GFR 44 L, Est GFR ( Amer) 53 L, Glucose 223 H D, Calcium 9.0, Magnesium 2.2, Total Bilirubin 0.3, AST 23, ALT 15, Alkaline Phosphatase 118, Total Protein 7.7, Albumin 4.1, Globulin 3.6 H, Albumin/Globulin Ratio 1.1 07/31/24 11:34: POC Glucose 185 H I & O for Last 24 hours: Intake & Output 07/28/24 07/29/24 07/30/24 07/31/24 23:59 23:59 23:59 23:59 Intake Total 1581.083 / 6893.291 9086 / 2290 2304 / 2304 Output Total 5400 / 5400 2049 / 2049 1850 / 1850 1500 / 1500 Balance -3818.917 / -3818.917 -780 / 240 454 / 454 -1500 / -1500 Weight 197 kg 197.766 kg 197.766 kg Assessment and Plan *Assessment and plan (1) Acute on chronic heart failure with preserved ejection fraction (HFpEF): Status: Acute Category: Medical Code(s): I50.33 - Acute on chronic diastolic (congestive) heart failure (2) LUPE (acute kidney injury): Status: Acute Category: Medical Code(s): N17.9 - Acute kidney failure, unspecified (3) Morbid obesity with BMI of 50.0-59.9, adult: Status: Acute Category: Medical Code(s): E66.01 - Morbid (severe) obesity due to excess calories; Z68.43 - Body mass index [BMI] 50.0-59.9, adult (4) Volume overload: Status: Acute Qualifiers: Hypervolemia type: unspecified Qualified Code(s): E87.70 - Fluid overload, unspecified Category: Medical Code(s): E87.70 - Fluid overload, unspecified (5) Venous stasis ulcer of both lower extremities without varicose veins: Status: Acute Category: Medical Code(s): I87.2 - Venous insufficiency (chronic) (peripheral); L97.919 - Non-pressure chronic ulcer of unspecified part of right lower leg with unspecified severity; L97.929 - Non-pressure chronic ulcer of unspecified part of left lower leg with unspecified severity (6) Microcytic anemia: Status: Acute Category: Medical Code(s): D50.9 - Iron deficiency anemia, unspecified (7) Adult failure to thrive: Status: Acute Category: Medical Code(s): R62.7 - Adult failure to thrive (8) LORI (obstructive sleep apnea): Status: Acute Category: Medical Code(s): G47.33 - Obstructive sleep apnea (adult) (pediatric) (9) Diabetes mellitus: Status: Acute Qualifiers: Diabetes mellitus type: type 2 Diabetes mellitus intermediate frame tender insulin use: without intermediate frame tender use Diabetes mellitus complication status: with hyperglycemia Qualified Code(s): E11.65 - Type 2 diabetes mellitus with hyperglycemia Category: Medical Code(s): E11.9 - Type 2 diabetes mellitus without complications (10) Sacral wound: Status: Acute Qualifiers: Encounter type: initial encounter Qualified Code(s): S31.000A - Unspecified open wound of lower back and pelvis without penetration into retroperitoneum, initial encounter Category: Medical Code(s): S31.000A - Unspecified open wound of lower back and pelvis without penetration into retroperitoneum, initial encounter Plan Bebeto Vegas is a 64-year-old male with morbid obesity, acute on chronic HFpEF, volume overload, lower extremity erythema. Admitted due to worsening volume overload. Patient reports missing his scheduled follow-ups to establish with primary care and cardiology. High risk for readmission. Case management assisting with care. Expressed to him that we are unsure how else to help when he is stable to discharge given the need to establish with outpatient providers. In light of previous efforts for close follow-up, patient has still not gone to his appointments. Has various obstacles including car trouble, not feeling well, recurrent admissions. Already has an appointment scheduled next week on Thursday. Stressed the importance of keeping this appointment. Acute on Chronic HFpEF #Anasarca Atrial fibrillation Hypertension - Heart rate appears controlled at this time. Appears frankly volume overloaded. BNP 2000 ? Increased Bumex 2 mg to 3 times daily, creatinine stable at 1.6. - Decreased spironolactone to 50 mg due to hyperkalemia. - Continue metoprolol succinate 100 mg twice daily, diltiazem 360 mg. - Eliquis 5 mg twice daily. - Continue aspirin 81 mg daily for PAD. - Echo obtained last month with severe diastolic dysfunction but preserved ejection fraction. ?Repeat CBC, CMP, magnesium ordered for the morning. ? Fluid restriction 1800. #Hyperkalemia ? Decrease spironolactone to 50 mg daily. Continue Kayexalate. Potassium 5.4. Diabetes: - A1c 9.8 last admission. Continue Lantus to 70 units twice daily. Continue sliding scale high intensity. Will consider scheduled mealtime at discharge -metformin to 1000 mg twice daily -Diabetic diet of 1500 jone -Holding Jardiance due to risk for Marilin's gangrene given groin wounds and retracted penis - Continue Lantus, increased to 70 units twice daily. Continue scheduled mealtime insulin increased to 15 units with meals plus sliding scale. Stasis erythema/edema Leg pain -Wound care consulted to assist with management of ulcerations on legs. - Continue dry dressing on wounds - EMLA for pain, initiate tizanidine for leg cramping 2mg TID - decreasing opiates to 5mg hydrocodone today every 6 hours as needed. concern for developing opiate dependence with withdrawal after dscharge due to withdrawal type sx once home Microcytic anemia: Hemoglobin 9.7. Platelets 395. Cell lines consistent with hemoconcentration. Previous iron studies showed low levels. Transfusion threshold hemoglobin less than 7 LORI: Consider oxygen at night versus CPAP after discussion with patient about his home regimen. On room air at this time; goal sats greater 90% Morbid obesity complicates all aspects of his care. Wound care consulted to assist with legs and stasis ulcers, refer to outpt wound care after DC Full code eliquis 5mg BID Diabetic diet
[2024-07-31 17:00] LABS: POC Glucose,Bedside 189 (70-110)
[2024-07-31] MEDS: PANTOPRAZOLE 40MG TABLET 40 MG PO (20:16)
[2024-07-31] MEDS: LIDOCAINE/PRILOCAINE 5GM TUBE 5 GM TP ×2 (23:07→23:08)
[2024-08-01] VITALS: BP 111/48; PULSE 60; PULSE 61; RESP 16; TEMP 36.6; O2SAT 98
[2024-08-01] MEDS: HYDROCODONE/APAP 5/325 MG TABLET 1 TAB PO ×2 (02:44→08:42)
[2024-08-01] MEDS: diazePAM 10MG/2ML SYRINGE 2 MG IV (02:44)
[2024-08-01 04:00] VITALS: BP 149/69; PULSE 129; RESP 18; TEMP 36.6; O2SAT 98; BMI 54.1
--- NOTE | 2024-08-01 05:16 | PC.NURSE ---
Pt. is alert and orientated x 4. Pt. is on room air. Pt. sitting up in chair. has not layed in the bed at all. Pt. sleeping off and on in the chair. Pt. ambulates from chair to bathroom using a walker. Pt. stand by assist for safety. Pt. c/o BLE pain right hurt worse than left. Pt. c/o RLL dressing was wet and wanted it changed. Gauze, Kerlix, and Coban dressings very wet, taken off. Leg/foot cleaned with H[place]., and gauze. Pt. has open ulcerations to back of right leg and foot. after cleaning, leg patted dry Lidocaine cream was added to ABD PAD and applied over the wounds. Kerlix dressing was applied over wounds and than coban was applied. Pt. c/o cramping to legs. Zanaflex given and one dose of Valium given overnight. Pt. on fluid restrictions but has ignored the restrictions . Family brings in sugary drinks. Pt. also constantly asking for sndwhiches, chips, ice cream, ect. Pt. very edematous all over body. Personal items and call wynne in reach.
[2024-08-01 06:35] LABS: POC Glucose,Bedside 295 (70-110)
[2024-08-01] MEDS: humaLOG 100 UNITS/ML 10ML VIAL (SSI) 15 UNIT SUBCUT (06:35)
[2024-08-01] MEDS: humaLOG 100 UNITS/ML 10ML VIAL (SSI) SUBCUT ×2 (06:35→11:42)
[2024-08-01] MEDS: BUMETANIDE 1 MG TABLET 2 MG PO (06:37)
[2024-08-01] MEDS: ONDANSETRON 4MG/2ML VIAL 4 MG IV (06:48)
[2024-08-01 07:17] LABS: Basophils # 0.1 K/mm3 (0-0.2); Basophils % 0.4 % (0.1-2.0); Eosinophils # 0.3 Kmm3 (0.0-0.4); Hematocrit 30.6 % (42.0-52.0); Hemoglobin 9.4 g/dL (14.1-18.0); Lymphocytes # 2.1 K/mm3 (0.7-4.5); Lymphocytes % 16.8 % (10-50); Mean Corpuscular HGB Conc 30.7 g/dL (31.8-35.4); Mean Corpuscular Hemoglobin 24.6 pg (27.0-31.2); Mean Corpuscular Volume 80.1 fl (80-94); Mean Platelet Volume 9.2 fl (7.4-10.4); Monocytes # 0.6 K/mm3 (0.1-1.0); Monocytes % 4.9 % (1.7-9.3); Neutrophils # 9.5 K/mm3 (1.8-7.8); Neutrophils % 75.5 % (37.0-80.0); Nucleated Red Blood Cells # 0 10^3/uL; Nucleated Red Blood Cells % 0 %; Platelet Count 424 K/mm3 (142-424); Red Blood Count 3.82 M/mm3 (4.60-6.20); Red Cell Distribution Width 17.4 % (11.5-17.5); Red Cell Distribution Width-SD 50.4 fL; White Blood Count 12.5 K/mm3 (4.8-10.8)
[2024-08-01 07:49] LABS: Alanine Aminotransferase 15 U/L (12-78); Alkaline Phosphatase 125 U/L (38-126); Anion Gap 15.3 mEq/L (5-15); Aspartate Amino Transferase 22 U/L (17-59); Bilirubin,Total 0.4 mg/dl (0.2-1.3); Blood Urea Nitrogen 60 mg/dl (9-20); Calcium 9.2 mg/dl (8.4-10.2); Carbon Dioxide 32 mmol/L (22.0-30.0); Chloride 91 mmol/L (98-107); Creatinine Clearance Estimated 56 mL/min (50-200); Estimated Glomerular Filt Rate 44 ml/min (>60); GFR (African American) 53 ML/MIN (>60); Globulin 3.9 g/dL (1.3-3.2); Glucose 282 mg/dl (74-100); Magnesium 2.7 mg/dl (1.6-2.3); Potassium 5.3 mmoL/L (3.5-5.1); Sodium 133 mmol/L (136-145); Total Protein,Serum 7.9 g/dl (6.3-8.2)
[2024-08-01 08:00] VITALS: BP 138/79; PULSE 69; RESP 21; TEMP 36.6; O2SAT 99
[2024-08-01] MEDS: GABAPENTIN 300MG CAPSULE 900 MG PO ×2 (08:42→12:28)
[2024-08-01] MEDS: ASPIRIN EC 81MG TABLET 81 MG PO (08:43)
[2024-08-01] MEDS: SPIRONOLACTONE 25MG TABLET 25 MG PO (08:43)
[2024-08-01] MEDS: METOPROLOL SUCCINATE XL 50MG TABLET 150 MG PO (08:43)
[2024-08-01] MEDS: TIZANIDINE 4MG TABLET 4 MG PO ×2 (08:44→12:28)
[2024-08-01] MEDS: PARoxetine 20MG TABLET 20 MG PO (08:44)
[2024-08-01] MEDS: APIXABAN 5MG TABLET 5 MG PO (08:44)
[2024-08-01] MEDS: INSULIN GLARGINE 100 UNITS/ML 3ML FLEXPEN 70 UNIT SUBCUT (08:49)
[2024-08-01] MEDS: dilTIAZem ER 180 MG CAPSULE 360 MG PO (08:53)
[2024-08-01 11:48] LABS: POC Glucose,Bedside 190 (70-110)
[2024-08-01 12:00] VITALS: BP 144/66; PULSE 68; RESP 20; TEMP 36.8; O2SAT 97
--- NOTE | 2024-08-01 12:17 | P.DS_ITS ---
General Admission date:: 07/27/24 HPI HPI HPI: A 64-year-old male with a history of morbid obesity, congestive heart failure with preserved ejection fraction (HFpEF, LVEF 55% on 06/17/2024 echocardiogram), diabetes mellitus, obstructive sleep apnea (LORI), chronic lower extremity lymphedema, multiple pressure wounds, and partial right foot amputation for osteomyelitis presents to the emergency department with increasing shortness of breath. He subjectively reports a 60-pound weight gain above his discharge dry weight, suggesting fluid retention, and denies fevers, chills, cough, or chest pain. Recheck weight actually shows weight loss from previous admission. His sister, managing his wounds, noted a painful posterior right lower extremity ulceration. He has frequent hospitalizations, including June and last week at this facility for volume overload and leg swelling, a 6-week stay at [facility] for heart failure, infected decubitus wounds, osteomyelitis, and debility, followed by rehab, and a 3-week readmission at [facility] for recurrent heart failure. He was discharged home without rehab placement due to ineligibility and personal preference. He is chronically anticoagulated on apixaban (Eliquis) for atrial fibrillation and reports poor response to oral bumetanide (Bumex), with IV Bumex effective during hospitalizations. The history was obtained through interactive discussion with the patient and sister, with the patient deemed reliable. On examination, the patient is hemodynamically stable, with significant whole- body edema and a painful right lower extremity ulceration. Physical exam is otherwise unremarkable from previous hospitalization and debility noted in prior records. Diagnostic workup includes labs and chest X-ray. Labs show leukocytosis (WBC 12.1), anemia (hemoglobin 9.2, hematocrit 29.6), hyperkalemia (potassium 5.5), elevated BUN (37), normal creatinine (1.1), GFR (68), elevated glucose (247), normal troponin (<0.01), elevated NT-proBNP (2090), elevated alkaline phosphatase (143), elevated globulin (3.8), and elevated D-dimer (0.55). Chest X-ray, independently interpreted, shows cardiomegaly without significant thoracic abnormality, consistent with radiology read and prior X-ray (06/16/2024). Treatments implemented in the emergency department include planned IV bumetanide (Bumex, dose not specified, assumed 1?2 mg), with no other interventions noted. . Hospital medicine accepted the patient for admission for further diuresis and management in stable condition. Hospital Course Hospital Course Hospital Course: Bebeto Christiansen is a 63-year-old male with morbid obesity was admitted for acute on chronic HFpEF, volume overload after not being able to again take his diuretics on his trip to [place]. 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 Has long-standing history of medical non-adherence, and feels more comfortable in medical facilities. Has had multiple admissions to our facility for similar presentation, and [facility] in [place]. #Acute on chronic HFpEF #Anasarca #Venous insufficiency, stasis dermatitis ? Presented with progressive anasarca, has not been adherent to medications on a trip again to [place] lasting 2 days. 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 Has long-standing history of medical non-adherence, and feels more comfortable in medical facilities. Has had multiple admissions to our facility for similar presentation, and [facility] in [place]. ? Clinically improved with IV Bumex drip diuresis, discontinued spironolactone due to refractory hyperkalemia. ? Continues to be chronically volume overloaded, but on room air with appropriate saturations. Ambulating without dyspnea. Will need to continue oral diuretic regimen upon discharge and have close follow-up with PCP. ? Increased Bumex 2 mg to 3 times daily. Strongly encourage patient to follow- up with cardiology and PCP within the next week to further evaluate diuretic regimen, and follow-up on renal function. ? Unna boots applied to lower extremities. #Hypertension #A-fib ? Metoprolol succinate 100 mg twice daily, diltiazem 360 mg daily. Discontinue spironolactone and irbesartan due to persistent hyperkalemia, and normal pressures. ? Eliquis 5 mg twice daily for A-fib. Currently rate controlled. #Type 2 diabetes ? Hemoglobin A1c 9.7. ? Increase Lantus to 75 units twice daily with sliding scale insulin with meals, continue metformin 1000 mg twice daily. ? Started Mounjaro, will need close follow-up with PCP. ? Holding off on starting SGLT2i due to skin breakdown right groin and high risk for Marilin's disease. Morbid obesity complicates all aspects of his care. PT and OT consulted along with social work to assist with dispo planning in next site of care; PT evaluated and states patient is independently mobile. Safe to discharge home when medically stable. Referred to to outpatient PT, OT, wound. Total time spent on discharge: 33 minutes on chart review, counseling, documentation, and direct care with patient. Exam Data for Last 24 hours Vital signs and Labs for Last 24 Hours: Temp Pulse Resp BP Pulse Ox O2 Del Method 98 F 69 21 138/79 99 Room Air 08/01/24 08:00 08/01/24 08:00 08/01/24 08:00 08/01/24 08:00 08/01/24 08:00 08/01/24 10:26 Laboratory Results - last 24 hr 07/31/24 16:42: POC Glucose 189 H 08/01/24 06:26: POC Glucose 295 H 08/01/24 06:38: WBC 12.5 H, RBC 3.82 L, Hgb 9.4 L, Hct 30.6 L, MCV 80.1, MCH 24.6 L, MCHC 30.7 L, RDW 17.4, Plt Count 424, MPV 9.2, Neut % (Auto) 75.5, Lymph % (Auto) 16.8, [place]ack[place]ord % (Auto) 4.9, Eos % (Auto) 2.0, Baso % (Auto) 0.4, Neut # (Auto) 9.5 H, Lymph # (Auto) 2.1, Shackelford # (Auto) 0.6, Eos # (Auto) 0.3, Baso # (Auto) 0.1, Sodium 133 L, Potassium 5.3 H, Chloride 91 L, Carbon Dioxide 32 H, Anion Gap 15.3 H, BUN 60 H, Creatinine 1.60 H, Estimated Creat Clear 56, Estimated GFR 44 L, Est GFR ( Amer) 53 L, Glucose 282 H D, Calcium 9.2, Magnesium 2.7 H D, Total Bilirubin 0.4, AST 22, ALT 15, Alkaline Phosphatase 125, Total Protein 7.9, Albumin 4.0, Globulin 3.9 H, Albumin/Globulin Ratio 1.0 L 08/01/24 11:29: POC Glucose 190 H I & O for Last 24 hours: Intake & Output 07/29/24 07/30/24 07/31/24 08/01/24 23:59 23:59 23:59 23:59 Intake Total 1270 / 2290 2304 / 2304 1910 / 2910 1360 / 1360 Output Total 2049 / 2049 1850 / 1850 2400 / 3000 1600 / 1600 Balance -780 / 240 454 / 454 -490 / -90 -240 / -240 Weight 197 kg 197.766 kg 197.766 kg 197.766 kg Microbiology Reports for the Last 24 Hours: Microbiology 07/30/24 16:10 Blood Blood Culture - Preliminary NO GROWTH AFTER 24 HOURS 07/30/24 16:10 Blood Blood Culture - Preliminary NO GROWTH AFTER 24 HOURS Constitutional Constitutional: no acute distress *Routine Respiratory Exam Respiratory: Present rhonchi and symmetric chest movement *Routine Cardiovascular Exam Cardiovascular: Present RRR, Normal S1 and Normal S2 *Routine Abdominal Exam Abdominal: Present soft and normoactive bowel sounds; Absent tenderness *Routine Extremities Exam Extremities: Present edema, full ROM and normal capillary refill *Routine Skin Exam Skin: Present intact, dry and warm Detailed Neck Exam: Thyroids Thyroid: Absent bruit Results Data Completed and Pending Labs on day of discharge: Labs from last 24 hours 08/01/24 08/01/24 08/01/24 11:29 06:38 06:26 WBC 12.5 H RBC 3.82 L Hgb 9.4 L Hct 30.6 L MCV 80.1 MCH 24.6 L MCHC 30.7 L RDW 17.4 Plt Count 424 MPV 9.2 Neut % (Auto) 75.5 Lymph % (Auto) 16.8 Shackelford % (Auto) 4.9 Eos % (Auto) 2.0 Baso % (Auto) 0.4 Neut # (Auto) 9.5 H Lymph # (Auto) 2.1 Shackelford # (Auto) 0.6 Eos # (Auto) 0.3 Baso # (Auto) 0.1 Sodium 133 L Potassium 5.3 H Chloride 91 L Carbon Dioxide 32 H Anion Gap 15.3 H BUN 60 H Creatinine 1.60 H Estimated Creat Clear 56 Estimated GFR 44 L Est GFR ( Amer) 53 L Glucose 282 H D POC Glucose 190 H 295 H Calcium 9.2 Magnesium 2.7 H D Total Bilirubin 0.4 AST 22 ALT 15 Alkaline Phosphatase 125 Total Protein 7.9 Albumin 4.0 Globulin 3.9 H Albumin/Globulin Ratio 1.0 L 07/31/24 16:42 WBC RBC Hgb Hct MCV MCH MCHC RDW Plt Count MPV Neut % (Auto) Lymph % (Auto) Shackelford % (Auto) Eos % (Auto) Baso % (Auto) Neut # (Auto) Lymph # (Auto) Shackelford # (Auto) Eos # (Auto) Baso # (Auto) Sodium Potassium Chloride Carbon Dioxide Anion Gap BUN Creatinine Estimated Creat Clear Estimated GFR Est GFR ( Amer) Glucose POC Glucose 189 H Calcium Magnesium Total Bilirubin AST ALT Alkaline Phosphatase Total Protein Albumin Globulin Albumin/Globulin Ratio Preliminary micro results at discharge 07/30/24 16:10 Blood Culture - Preliminary Blood NO GROWTH AFTER 24 HOURS 07/30/24 16:10 Blood Culture - Preliminary Blood NO GROWTH AFTER 24 HOURS DS: Diagnosis Discharge Diagnosis (1) Acute on chronic heart failure with preserved ejection fraction (HFpEF): Status: Acute Code(s): I50.33 - Acute on chronic diastolic (congestive) heart failure (2) LUPE (acute kidney injury): Status: Acute Code(s): N17.9 - Acute kidney failure, unspecified (3) Morbid obesity with BMI of 50.0-59.9, adult: Status: Acute Code(s): E66.01 - Morbid (severe) obesity due to excess calories; Z68.43 - Body mass index [BMI] 50.0-59.9, adult (4) Volume overload: Status: Acute Code(s): E87.70 - Fluid overload, unspecified Qualifiers: Hypervolemia type: unspecified Qualified Code(s): E87.70 - Fluid overload, unspecified (5) Venous stasis ulcer of both lower extremities without varicose veins: Status: Acute Code(s): I87.2 - Venous insufficiency (chronic) (peripheral); L97.919 - Non-pressure chronic ulcer of unspecified part of right lower leg with unspecified severity; L97.929 - Non-pressure chronic ulcer of unspecified part of left lower leg with unspecified severity (6) Microcytic anemia: Status: Acute Code(s): D50.9 - Iron deficiency anemia, unspecified (7) Adult failure to thrive: Status: Acute Code(s): R62.7 - Adult failure to thrive (8) LORI (obstructive sleep apnea): Status: Acute Code(s): G47.33 - Obstructive sleep apnea (adult) (pediatric) (9) Diabetes mellitus: Status: Acute Code(s): E11.9 - Type 2 diabetes mellitus without complications Qualifiers: Diabetes mellitus complication status: with hyperglycemia Diabetes mellitus [facility] insulin use: without intermediate accountant use Diabetes mellitus type: type 2 Qualified Code(s): E11.65 - Type 2 diabetes mellitus with hyperglycemia (10) Sacral wound: Status: Acute Code(s): S31.000A - Unspecified open wound of lower back and pelvis without penetration into retroperitoneum, initial encounter Qualifiers: Encounter type: initial encounter Qualified Code(s): S31.000A - Unspecified open wound of lower back and pelvis without penetration into retroperitoneum, initial encounter Meds Home Medications and Allergies Home Medications ?Medication ?Instructions ?Recorded ?Confirmed ?Type apixaban 5 mg tablet (Eliquis) 5 mg PO BID 30 days #60 tabs 06/21/24 08/12/24 Rx aspirin 81 mg tablet,delayed 81 mg PO DAILY 30 days #30 tabs 06/21/24 08/12/24 Rx release atorvastatin 10 mg tablet 10 mg PO HS 30 days #30 tabs 06/21/24 08/12/24 Rx diltiazem HCl 180 mg 360 mg (2 x 180 mg) PO DAILY 30 06/21/24 08/12/24 Rx capsule,extended release 24 hr days #60 caps gabapentin 300 mg capsule 900 mg (3 x 300 mg) PO TID 30 days 06/21/24 08/12/24 Rx #270 caps pantoprazole 40 mg tablet,delayed 40 mg PO HS 30 days #30 tabs 06/21/24 08/12/24 Rx release polyethylene glycol 3350 17 gram 17 g PO DAILY 30 days #30 ea 06/21/24 08/12/24 Rx oral powder packet (HealthyLax) metoprolol succinate 50 mg 150 mg PO DAILY 07/18/24 08/12/24 History tablet,extended release 24 hr metformin 500 mg tablet 1,000 mg (2 x 500 mg) PO BID 30 07/19/24 08/12/24 Rx days #30 tabs ondansetron 4 mg disintegrating 4 mg PO Q8HP PRN nausea and 07/28/24 08/12/24 History tablet vomiting paroxetine HCl 20 mg tablet 20 mg PO DAILY 07/30/24 08/12/24 History bumetanide 2 mg tablet 2 mg PO TID 30 days #90 tabs 08/01/24 08/12/24 Rx insulin glargine 100 unit/mL (3 75 unit (0.75 mL) SQ BID 30 days 08/01/24 08/12/24 Rx mL) subcutaneous pen (Lantus #36 mL Solostar U-100 Insulin) insulin lispro 100 unit/mL See Protocol SQ ACHS 30 days #1.2 08/01/24 08/12/24 Rx subcutaneous solution (Humalog mL U-100 Insulin) tizanidine 4 mg tablet 4 mg PO TID PRN Muscle cramps 30 08/01/24 08/12/24 Rx days #30 tabs tramadol 50 mg tablet 50 mg PO Q8H PRN pain #15 tabs 08/12/24 Rx New Prescriptions to Start Prescriptions: natalyametanide Jorge A Martin insulin glargine [Lantus Solostar U-100 Insulin] Jorge A Martin insulin lispro [Humalog U-100 Insulin] Jorge A Martin tizanidine Jorge A Martin Allergies Allergy/AdvReac Type Severity Reaction Status Date / Time hydromorphone (From Dilaudid) AdvReac Vomiting Verified 08/12/24 10:36 morphine AdvReac Vomiting Verified 08/12/24 10:36 Discharge Plan Disposition Patient Disposition: Home, Self-Care Condition: Fair Discharge Order Discharge Orders: Discharge Order (Routine); Ordered 08/01/24 Ordered By: Jorge A Martin Follow up Plan Follow up with: Missy Chandra APRN [Nurse Practitioner] - 08/10/24 11:15 am Saulo Martinez DO [Staff Physician] - 08/10/24 3:45 pm Prescriptions/Medication Reconciliation: New insulin lispro [Humalog U-100 Insulin] 100 unit/mL Solution See Protocol SQ ACHS 30 Days Qty: 1.2 4RF Protocol: Insulin Corrective Med-Dose Regimen Condition: Fingerstick Blood Glucose Dose/Route: Insulin Units Condition: 151-200 mg/dl Dose/Route: 2 units/SQ Condition: 201-250 mg/dl Dose/Route: 5 units/SQ Condition: 251-300 mg/dl Dose/Route: 8 units/SQ Condition: 301-350 mg/dl Dose/Route: 10 units/SQ Condition: 351-400 mg/dl Dose/Route: 12 units/SQ Condition: 401-450 mg/dl Dose/Route: 15 units/SQ Condition: > 450 mg/dl Dose/Route: CALL Protocol Text: Medium Intensity Sliding Scale Insulin tizanidine 4 mg Tablet 4 mg PO TID PRN (Reason: Muscle cramps) 30 Days Qty: 30 0RF bumetanide 2 mg tablet 2 mg PO TID 30 Days Qty: 90 0RF Continued ondansetron 4 mg tablet,disintegrating 4 mg PO Q8HP PRN (Reason: nausea and vomiting) paroxetine HCl 20 mg Tablet 20 mg PO DAILY polyethylene glycol 3350 [HealthyLax] 17 gram Powder In Packet 17 g PO DAILY 30 Days Qty: 30 0RF atorvastatin 10 mg Tablet 10 mg PO HS 30 Days Qty: 30 0RF diltiazem HCl 180 mg Capsule,Extended Release 24hr 360 mg PO DAILY 30 Days Qty: 60 0RF aspirin 81 mg Tablet,Delayed Release (Dr/Ec) 81 mg PO DAILY 30 Days Qty: 30 0RF pantoprazole 40 mg Tablet,Delayed Release (Dr/Ec) 40 mg PO HS 30 Days Qty: 30 0RF Eliquis 5 mg Tablet 5 mg PO BID 30 Days Qty: 60 0RF gabapentin 300 mg capsule 900 mg PO TID 30 Days Qty: 270 0RF metoprolol succinate 50 mg tablet extended release 24 hr 150 mg PO DAILY Patient Comments: TAKE 3 TABLETS BY MOUTH DAILY metformin 500 mg tablet 1,000 mg PO BID 30 Days Qty: 30 0RF Changed insulin glargine [Lantus Solostar U-100 Insulin] 100 unit/mL (3 mL) Insulin Pen 75 unit SQ BID 30 Days Qty: 36 0RF Discontinued bumetanide 2 mg tablet 2 mg PO BID irbesartan 75 mg Tablet 37.5 mg PO DAILY 30 Days Qty: 15 0RF spironolactone 100 mg tablet 100 mg PO BIDL 30 Days Qty: 60 0RF No Action Mounjaro 2.5 mg/0.5 mL pen injector 0RF tramadol 50 mg tablet 50 mg PO Q8H PRN (Reason: pain) Qty: 15 0RF Problem Reconciliation Problems Reviewed?: Yes Patient Discharge Instructions Patient Instructions: DI for Obesity -- Adult, DI for Shortness of Breath, DI for Heart Failure Exacerbations, Stop Light Pneumonia, Stop Light Heart Failure, Stop Light Infection Print Language: Welsh Providers Primary Care Provider: Provider,Referral Admit Provider: Cullen Wu Attending Provider: Cullen Wu
--- NOTE | 2024-08-02 12:43 | SW/DCPLANNER ---
Spoke with patient on the phone. Patient stated that he has the diarrhea and has been up and down all day long. Patient stated that he is aware of his upcoming appointments. Patient stated that he was able to get his medicine picked up. Patient stated that he has no concerns or questions at this time. Prashanth Hardy
== END 2024-08-01 14:48 | disposition home or self-care (01) | DRG 291 ==
LOC: ER 20:40 → 2ND 22:16
PROVIDERS: Nurse Practitioner Family; Student in an Organized Health Care Education/Training Program; Admitting Provider Internal Medicine Adolescent Medicine; Emergency Provider Student in an Organized Health Care Education/Training Program; Visit Provider Internal Medicine Adolescent Medicine
DX: I13.0 Hypertensive heart and chronic kidney disease with heart failure and stage 1 through stage 4 chronic kidney disease, or unspecified chronic kidney disease (principal); I50.33 Acute on chronic diastolic (congestive) heart failure; Z68.43 Body mass index [BMI] 50.0-59.9, adult; N17.9 Acute kidney failure, unspecified; L97.819 Non-pressure chronic ulcer of other part of right lower leg with unspecified severity; I48.20 Chronic atrial fibrillation, unspecified; E66.01 Morbid (severe) obesity due to excess calories; R62.7 Adult failure to thrive; G47.33 Obstructive sleep apnea (adult) (pediatric); E11.65 Type 2 diabetes mellitus with hyperglycemia; D72.829 Elevated white blood cell count, unspecified; R11.2 Nausea with vomiting, unspecified; E87.5 Hyperkalemia; I89.0 Lymphedema, not elsewhere classified; I87.2 Venous insufficiency (chronic) (peripheral); E11.51 Type 2 diabetes mellitus with diabetic peripheral angiopathy without gangrene; E11.22 Type 2 diabetes mellitus with diabetic chronic kidney disease; N18.30 Chronic kidney disease, stage 3 unspecified; T50.1X6A Underdosing of loop [high-ceiling] diuretics, initial encounter; L89.899 Pressure ulcer of other site, unspecified stage; R79.89 Other specified abnormal findings of blood chemistry; D64.9 Anemia, unspecified; Z88.5 Allergy status to narcotic agent; Z91.148 Patient's other noncompliance with medication regimen for other reason; Z79.4 Long term (current) use of insulin; Z79.84 Long term (current) use of oral hypoglycemic drugs; Z87.891 Personal history of nicotine dependence; Z79.82 Long term (current) use of aspirin; Z79.899 Other long term (current) drug therapy; Z86.31 Personal history of diabetic foot ulcer; Z89.422 Acquired absence of other left toe(s); Z89.421 Acquired absence of other right toe(s); Z79.01 Long term (current) use of anticoagulants; Z91.198 Patient's noncompliance with other medical treatment and regimen for other reason
CPT/HCPCS: 36415; 71045; 80048; 80053; 81001; 82962; 83735; 83880; 84100; 84484; 85007; 85025; 85378; 87040; 93005; 97163; 99285; J0131; J1171; J1939; J2405; J3360

== ENCOUNTER 2024-08-03 10:59 | Outpatient (RCR) | payer MEDICARE, SELFPAY ==
--- NOTE | 2024-08-03 15:52 | HMH.PTOPWND ---
Rehab Outpt Wound Evaluation Rehab OP Wound Evaluation Start: 08/03/24 14:45 Freq: Status: Active Protocol: Document 08/03/24 14:46 PHOABBE (Rec: 08/03/24 15:51 [email or web address] [id number]) E-signed By Pete Coyle, PT Subjective/History History History This is the initial PT wound care eval for Bebeto Christiansen, 64 yowm who presents with multiple wounds to B lower legs due to CVI and fluid retention. He has been recently hospitalized on several occasions for cellulitis and fluid overload. He reports significant pain this date, worse on the R LE. He does ambulate, but only limited distances with walker. He has PMH of DM, HTN, cellulitis, HFpEF, LORI, R foot toe amputation, PAD, CVI. Subjective Subjective Pain at this time 7/10, intermittently 10/10 in the R lower leg this date. 2+ pitting edema to B lower legs. R LE with copious amts of serous drainage noted. L LE with moderate amts of bright green drainage noted (likely due to pseudomonas). 2/4 TTP to B lower legs. Moderate erythema noted this date. Wound Eval Wound Left Anterior Lateral [place] Wound Type Stasis Ulcer Is This a Chronic Wound Yes Wound Length (cm) 6.5 Wound Width (cm) 5.0 Wound Depth (cm) 0.1 Wound Bed Appearance Beefy Red Percentage Granulated (%) 100 Wound Margins Description Well Defined Surrounding Tissue Appearance [place] Edema Type Pitting Edema Degree 2+ Query Text:1+ Trace, Barely Detectable, Rebound 15-30 seconds 2+ Moderate, Slight Indentation, Rebound 10-20 seconds 3+ Deep, Deeper Indentation, Rebound > 30 seconds 4+ Very Deep, Rebound > 60 seconds Drainage Description Green Drainage Amount Moderate Wound Topical Solution/Irrigant Saline Irrigant Primary Dressing Absorbant Pad Comment optilock Wound Secondary Dressing Type Unna Boot Comment 2 layer zinc compression system Wound Debridement Method Gauze,Mechanical Wound Debridement Amount of Tissue Minimal Removed Dressing Change Patient Tolerance Tolerated Well Right Posterior Calf Wound Type Stasis Ulcer Is This a Chronic Wound Yes Wound Length (cm) 12.0 Wound Width (cm) 10.0 Wound Depth (cm) 0.1 Wound Bed Appearance Beefy Red Percentage Granulated (%) 100 Wound Margins Description Well Defined Surrounding Tissue Appearance [place] Edema Type Pitting Edema Degree 2+ Query Text:1+ Trace, Barely Detectable, Rebound 15-30 seconds 2+ Moderate, Slight Indentation, Rebound 10-20 seconds 3+ Deep, Deeper Indentation, Rebound > 30 seconds 4+ Very Deep, Rebound > 60 seconds Drainage Description Serous Drainage Amount Copious Drainage Odor No Odor Wound Topical Solution/Irrigant Saline Irrigant Primary Dressing Absorbant Pad Comment optilock Wound Secondary Dressing Type Unna Boot Comment 2 layer zinc compression system with kerlix Wound Debridement Method Gauze,Mechanical Wound Debridement Amount of Tissue None Removed Dressing Change Patient Tolerance Tolerated Well Wound Problems/Impairments Impairments Problems/Impairmments Palpation Tenderness,Impaired Endurance,Impaired Transfers, Impaired Gait Pattern,Impaired Walking,Impaired Standing, Impaired Shower/Bathing, Impaired Household Care, Increased Edema,Lymphedema Present,Wound Care Needs, Subjective C/O Pain,Impaired Self Care/Self Management Prognosis Rehab Potential Good Comment Skilled therapy is indicated to reduce overall wound surface area in order to aid pt return to independence with all ADLs. Clinical Impression Consistent with Diagnosis Yes Short Term Goals Number of Weeks 4 Decreased Palpation Tenderness Yes: 1/4 B lower legs Decrease Edema Yes: 1+ pitting edema to B lower legs Decrease Wound Area Yes: by 25% Decrease Subjective C/O Pain Yes: 09/20 B Lower legs Clearance Center Manager Goals Number of Weeks 8 Decreased Palpation Tenderness Yes: 0/4 B lower legs Decrease Edema Yes: no pitting edema B lower legs Decrease Wound Area Yes: by 75% Decrease Subjective C/O Pain Yes: 06/20 B lower legs Patient to be Ind w/ HEP Yes Outpatient Therapy Plan of Care Treatment Plan May Include Therapeutic Exercise Including Home Yes Exercise Program Manual Therapy Techniques Yes Neuromuscular Re-education Yes Therapeutic Activities to Return to Yes Previous Functional/Work Level ADL/Self Care Education Yes Orthotics/Bracing/Splinting Yes Manual Lymphatic Drainage Yes Wound Care Yes Eval/Re-Eval Yes Frequency Times per week 2 Duration Number of Weeks 8 Addendums This patient is a candidate for social No or vocational rehab? Patient/Guardian verbally acknowledges Yes understanding of treatment program and consents to further treatment? Patient/Guardian verbally acknowledges Yes understanding of diagnosis, prognosis and goals for treatment? Eval Complexity PT Charges 83179 - High Complexity PHYSICIAN CERTIFICATION: I certify the specified therapy services for Bebeto Nease are required, authorized, and reviewed every 30 days.
== END 2024-08-03 23:59 | disposition home or self-care (01) ==
LOC: PT 10:59
PROVIDERS: Visit Provider Internal Medicine Adolescent Medicine
DX: L97.919 Non-pressure chronic ulcer of unspecified part of right lower leg with unspecified severity (principal); L97.929 Non-pressure chronic ulcer of unspecified part of left lower leg with unspecified severity
CPT/HCPCS: 29580; 97163

== ENCOUNTER 2024-08-07 11:17 | Emergency (ER) | payer MEDICARE, SELFPAY ==
[2024-08-07] VITALS (9 sets, daily range): BP systolic 108–142; BP diastolic 66–85; PULSE 75–109; RESP 14–25; TEMP 36.9–37.1; O2SAT 96–99; BMI 53.1
--- NOTE | 2024-08-07 10:54 | XR_ITS ---
PROCEDURE INFORMATION: Exam: XR Chest Exam date and time: 08/07/2024 12:22 PM Age: 64 years old Clinical indication: Shortness of breath; Additional info: SOB TECHNIQUE: Imaging protocol: Radiologic exam of the chest. Views: 1 view. COMPARISON: CR XR CHEST PORTABLE 07/27/2024 8:55 PM FINDINGS: Lungs: Streaky airspace opacities in lower lobes could be attributed to atelectasis versus developing pneumonia/aspiration in the appropriate clinical context. There is poor ventilation of the lungs, with perihilar vascular crowding and a diffuse increase in pulmonary parenchymal density. Pleural spaces: Unremarkable. No pleural effusion. No pneumothorax. Heart/Mediastinum: Cardiomegaly noted. Bones/joints: Bilateral Glasgow rods in the thoracic spine. IMPRESSION: Streaky airspace opacities in lower lobes could be attributed to atelectasis versus developing pneumonia/aspiration in the appropriate clinical context.
--- NOTE | 2024-08-07 10:57 | HMH.EDGENADL ---
Discharge Plan Disposition Patient Disposition: Home, Self-Care Prescriptions Prescriptions: No Action ondansetron 4 mg tablet,disintegrating 4 mg PO Q8HP PRN (Reason: nausea and vomiting) paroxetine HCl 20 mg Tablet 20 mg PO DAILY insulin lispro [Humalog U-100 Insulin] 100 unit/mL Solution See Protocol SQ ACHS 30 Days Qty: 1.2 4RF Protocol: Insulin Corrective Med-Dose Regimen Condition: Fingerstick Blood Glucose Dose/Route: Insulin Units Condition: 151-200 mg/dl Dose/Route: 2 units/SQ Condition: 201-250 mg/dl Dose/Route: 5 units/SQ Condition: 251-300 mg/dl Dose/Route: 8 units/SQ Condition: 301-350 mg/dl Dose/Route: 10 units/SQ Condition: 351-400 mg/dl Dose/Route: 12 units/SQ Condition: 401-450 mg/dl Dose/Route: 15 units/SQ Condition: > 450 mg/dl Dose/Route: CALL MD Protocol Text: Medium Intensity Sliding Scale Insulin tizanidine 4 mg Tablet 4 mg PO TID PRN (Reason: Muscle cramps) 30 Days Qty: 30 0RF bumetanide 2 mg tablet 2 mg PO TID 30 Days Qty: 90 0RF insulin glargine [Lantus Solostar U-100 Insulin] 100 unit/mL (3 mL) Insulin Pen 75 unit SQ BID 30 Days Qty: 36 0RF Ozempic 0.25 mg or 0.5 mg (2 mg/3 mL) pen injector 0.25 mg SQ WEEKLY Qty: 3 0RF Rx Instructions: for 4 weeks polyethylene glycol 3350 [HealthyLax] 17 gram Powder In Packet 17 g PO DAILY 30 Days Qty: 30 0RF atorvastatin 10 mg Tablet 10 mg PO HS 30 Days Qty: 30 0RF diltiazem HCl 180 mg Capsule,Extended Release 24hr 360 mg PO DAILY 30 Days Qty: 60 0RF aspirin 81 mg Tablet,Delayed Release (Dr/Ec) 81 mg PO DAILY 30 Days Qty: 30 0RF pantoprazole 40 mg Tablet,Delayed Release (Dr/Ec) 40 mg PO HS 30 Days Qty: 30 0RF Eliquis 5 mg Tablet 5 mg PO BID 30 Days Qty: 60 0RF gabapentin 300 mg capsule 900 mg PO TID 30 Days Qty: 270 0RF metoprolol succinate 50 mg tablet extended release 24 hr 150 mg PO DAILY Patient Comments: TAKE 3 TABLETS BY MOUTH DAILY metformin 500 mg tablet 1,000 mg PO BID 30 Days Qty: 30 0RF Referrals Follow up/Referrals: Provider,Referral, [Primary Care Provider] - See instructions Activity Restrictions/Add. Instructions Additional Instructions/Restrictions: Recommend discontinuing Ozempic. Continue wound care at home. Follow-up with primary care doctor. Otherwise, continue all of your chronic home medications. Clinical Impressions Clinical Impression: Atrial fibrillation with RVR, Shortness of breath, Nausea, vomiting and diarrhea Instructions Patient Instructions: DI for Acute Abdominal Pain Print Language Print Language: Hungarian Discharge ED Provider: Ricardo Estrada General Adult HPI General Chief complaint: Abdominal Pain Stated complaint: n/v/d Time Seen by Provider: 08/07/24 11:25 Mode of Arrival: EMS Source of Information: Patient Limitations: No Limitations History of Present Illness HPI narrative: This is a 64-year-old male with a past medical history of morbid obesity, congestive heart failure with preserved ejection fraction (HFpEF, LVEF 55% on 06/17/2024 echocardiogram), diabetes mellitus, obstructive sleep apnea (LORI), chronic lower extremity lymphedema, multiple pressure wounds, and partial right foot amputation for osteomyelitis who presents with multiple complaints. States that he feels more short of breath than usual as well as feeling sick all night. States that he has had 1 episode of diarrhea. On EMS arrival, patient was placed on 3 L nasal cannula. Unknown initial O2 sat however satting appropriately on nasal cannula during transport. No medications given prior to arrival. Otherwise stable. Related Data Home Medications ?Medication ?Instructions ?Recorded ?Confirmed metoprolol succinate 50 mg 150 mg PO DAILY 07/18/24 07/28/24 tablet,extended release 24 hr ondansetron 4 mg disintegrating 4 mg PO Q8HP PRN nausea and 07/28/24 07/28/24 tablet vomiting paroxetine HCl 20 mg tablet 20 mg PO DAILY 07/30/24 07/30/24 Previous Rx's ?Medication ?Instructions ?Recorded apixaban 5 mg tablet (Eliquis) 5 mg PO BID 30 days #60 tabs 06/21/24 aspirin 81 mg tablet,delayed 81 mg PO DAILY 30 days #30 tabs 06/21/24 release atorvastatin 10 mg tablet 10 mg PO HS 30 days #30 tabs 06/21/24 diltiazem HCl 180 mg 360 mg (2 x 180 mg) PO DAILY 30 06/21/24 capsule,extended release 24 hr days #60 caps gabapentin 300 mg capsule 900 mg (3 x 300 mg) PO TID 30 days 06/21/24 #270 caps pantoprazole 40 mg tablet,delayed 40 mg PO HS 30 days #30 tabs 06/21/24 release polyethylene glycol 3350 17 gram 17 g PO DAILY 30 days #30 ea 06/21/24 oral powder packet (HealthyLax) metformin 500 mg tablet 1,000 mg (2 x 500 mg) PO BID 30 07/19/24 days #30 tabs bumetanide 2 mg tablet 2 mg PO TID 30 days #90 tabs 08/01/24 insulin glargine 100 unit/mL (3 75 unit (0.75 mL) SQ BID 30 days 08/01/24 mL) subcutaneous pen (Lantus #36 mL Solostar U-100 Insulin) insulin lispro 100 unit/mL See Protocol SQ ACHS 30 days #1.2 08/01/24 subcutaneous solution (Humalog mL U-100 Insulin) semaglutide 0.25 mg or 0.5 mg (2 0.25 mg (0.368 mL) SQ WEEKLY #3 mL 08/01/24 mg/3 mL) subcutaneous pen injector (Ozempic) tizanidine 4 mg tablet 4 mg PO TID PRN Muscle cramps 30 08/01/24 days #30 tabs Allergies Allergy/AdvReac Type Severity Reaction Status Date / Time hydromorphone (From Dilaudid) AdvReac Vomiting Verified 07/17/24 13:54 morphine AdvReac Vomiting Verified 07/17/24 13:54 [facility] Disclaimer: The information contained in this section may have been updated after the patient was seen, as this information can be updated by other users. 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 Social History (Updated 07/28/24 @ 04:29 by Néstor Haines RN) Smoking Status: Current every day smoker alcohol intake: never current occupational status: retired and disabled Travel in the last 8 weeks: None Have you lived/traveled outside US in past 30 days?: No Contact w/someone who lives/traveled outside US past 30 days?: No Exposure to someone with infectious disease in past 14 days?: No Do you have a fever (greater than 100.4 F or 38 C)?: No Have you tested positive for COVID-19: No Exposed to someone with COVID-19 in past 14 days?: No Do you have a sore throat?: No Do you have a cough?: No Do you have any weakness?: No Do you have any diarrhea?: Yes Are you experiencing any unusual bleeding?: No Do you have any muscle aches/pain?: No Do you have any abdominal pain?: No Are you experiencing loss of taste or smell?: No Other Medical History Have you received the Flu Vaccine for this season: No Have you received the Pneumonia Vaccine: No ROS Obtained: Yes All systems reviewed & no additional complaints except as documented Physical Exam General General appearance: alert and in distress Head Head exam: atraumatic and normocephalic Eye Eye exam: Present normal appearance, PERRL and EOMI Neck Neck exam: Present normal inspection and full ROM Chest Chest inspection: Present normal inspection and symmetric chest wall rise Respiratory Respiratory exam: Present normal lung sounds bilaterally and respiratory distress (Labored breathing); Absent wheezes, stridor or prolonged expiratory phase Cardiovascular Cardiovascular exam: Present regular rate and normal rhythm Abdominal Exam Abdominal exam: Present soft; Absent distention, tenderness, guarding or rebound Extremities Exam Extremities exam: Present edema (Extensive 3+ bilateral pitting edema) Neurological Exam Neurological exam: Present alert and oriented X3 Psychiatric Psychiatric exam: Present normal affect and normal mood Skin Skin exam: Present warm and dry Medical Decision Making Medical Records Medical records reviewed: Yes I reviewed the patient's medical records. Screening: Per USPSTF and CDC recommendations, given the prevalence of disease in our region, it is our hospital?s policy to screen for HIV and viral Hepatitis for all patients aged 18 and over and those with ongoing risk factors. MR Comment: Hospital medicine discharge summary from 08/01/2024 notable for patient's past medical history as noted above and admission for LUPE Madi Inquiry Pt receiving controlled substance: No Vital Signs: 08/07/24 10:53 08/07/24 11:47 08/07/24 12:00 Temperature 98.7 F Temperature Source Oral Pulse Rate 80 90 Pulse Rate [Apical] 85 Respiratory Rate 20 25 H 14 Blood Pressure 131/66 108/68 L Blood Pressure [Left Arm] 131/72 Blood Pressure Mean [Left Arm] 91 Blood Pressure Source [Left Arm] Automatic Cuff Blood Pressure Position [Left Arm] Sitting 02 Sat by Pulse Oximetry 97 99 98 Oxygen Delivery Method Room Air Room Air Room Air 08/07/24 12:30 08/07/24 13:00 08/07/24 14:13 Temperature Temperature Source Pulse Rate 85 75 109 H Pulse Rate [Apical] Respiratory Rate 20 17 20 Blood Pressure 142/82 H 117/85 129/70 Blood Pressure [Left Arm] Blood Pressure Mean [Left Arm] Blood Pressure Source [Left Arm] Blood Pressure Position [Left Arm] 02 Sat by Pulse Oximetry 99 97 99 Oxygen Delivery Method Room Air Room Air Room Air 08/07/24 14:31 08/07/24 14:49 Temperature Temperature Source Pulse Rate 98 H 105 H Pulse Rate [Apical] Respiratory Rate 14 15 Blood Pressure 126/69 136/75 Blood Pressure [Left Arm] Blood Pressure Mean [Left Arm] Blood Pressure Source [Left Arm] Blood Pressure Position [Left Arm] 02 Sat by Pulse Oximetry 96 99 Oxygen Delivery Method Room Air Room Air Lab Data Lab Results 08/07/24 11:39: WBC 12.8 H, RBC 3.84 L, Hgb 9.4 L, Hct 29.7 L, MCV 77.3 L, MCH 24.5 L, MCHC 31.6 L, RDW 16.8, Plt Count 402, MPV 8.9, Neut % (Auto) 78.9, Lymph % (Auto) 13.3, [place] % (Auto) 6.0, Eos % (Auto) 1.0, Baso % (Auto) 0.4, Neut # (Auto) 10.1 H, Lymph # (Auto) 1.7, [place] # (Auto) 0.8, Eos # (Auto) 0.1, Baso # (Auto) 0.1, VBG pH 7.45 H, VBG pCO2 29.9 L, VBG pO2 49.3 H, VBG HCO3 20.1 L, VBG Total CO2 21.0 L, VBG O2 Saturation 86.6 H, VBG Base Excess -3.9 L, VBG Lactic Acid 3.6 H, Sodium 133 L, Potassium 5.3 H, Chloride 101, Carbon Dioxide 23, Anion Gap 14.3, BUN 39 H, Creatinine 1.00, Estimated Creat Clear 90, Estimated GFR 75, Est GFR ( Amer) 91, Glucose 324 H, Calcium 9.5, Total Bilirubin 0.5, AST 20, ALT 20, Alkaline Phosphatase 148 H, Troponin I < 0.01, NT-Pro-B Natriuret Pep 1870 H, Total Protein 7.4, Albumin 3.9, Globulin 3.5 H, Albumin/Globulin Ratio 1.1 08/07/24 11:43: SARS-CoV-2 (PCR) Not detected, Influenza A Untype (PCR) Not detected, Influenza Type B (PCR) Not detected 08/07/24 11:39 08/07/24 11:39 Orders (Tests/Meds): ED MEDICATIONS Generic Name Dose Route Start Last Admin Trade Name Freq PRN Reason Stop Dose Admin Sodium Chloride 10 ml 08/07/24 11:47 Sodium Chloride 0.9% 10ml Flush Syringe IV 09/06/24 11:46 NEEDED PRN Maintain IV Site Discontinued Medications Generic Name Dose Route Start Last Admin Trade Name Freq PRN Reason Stop Dose Admin Bumetanide 2 mg 08/07/24 13:27 08/07/24 13:30 Bumetanide 1mg/4ml Vial IV 08/07/24 13:28 2 mg ONCE ONE Administration Diltiazem HCl 360 mg 08/07/24 12:35 08/07/24 12:50 Diltiazem Hcl 180mg Cap.Er.24h PO 08/07/24 12:36 360 mg DAILY ONE Administration Metoprolol Succinate 150 mg 08/07/24 12:36 08/07/24 12:50 Metoprolol Succinate Xl 100mg Tablet PO 08/07/24 12:37 150 mg DAILY ONE Administration Metoprolol Tartrate 5 mg 08/07/24 13:58 08/07/24 14:14 Metoprolol Tartrate 5mg/5ml Vial IV 08/07/24 13:59 5 mg ONCE ONE Administration Metoprolol Tartrate 5 mg 08/07/24 14:22 08/07/24 14:26 Metoprolol Tartrate 5mg/5ml Vial IV 08/07/24 14:23 5 mg ONCE ONE Administration Ondansetron HCl 4 mg 08/07/24 13:26 08/07/24 13:29 Ondansetron 4mg/2ml Vial IV 08/07/24 13:27 4 mg ONCE ONE Administration ORDERS Category Date Time Status CT abdomen pelvis w con Stat Cat Scan 08/07/24 10:54 Ordered CTA Chest [CT angio chest PE protocol] Stat Cat Scan 08/07/24 10:53 Ordered Chest XR -- portable [XR chest portable] Stat Exams 08/07/24 10:54 Completed BNP [NT Pro Brain Natriuretic Pep.] Stat Lab 08/07/24 11:39 Completed CBC w/Auto Diff [Complete Blood Count Auto Diff] Stat Lab 08/07/24 11:39 Completed CMP [Comprehensive Metabolic Panel] Stat Lab 08/07/24 11:39 Completed Diarrhea 23 Panel, PCR Stat Lab 08/07/24 13:15 Received Diarrhea 6-11 Panel, Cdiff PCR Stat Lab 08/07/24 10:50 Received Full Resp Panel w/COVID ([facility]) Routine Lab 08/07/24 11:43 Received Rapid PCR Covid and Flu A/B Stat Lab 08/07/24 11:43 Completed Troponin I Stat Lab 08/07/24 11:39 Completed Blood Culture Stat Micro 08/07/24 12:34 Received VBG [Venous Blood Gas] Stat RT 08/07/24 11:39 Completed ECG Data Tracing #1: I reviewed this ECG and interpreted as documented below: Atrial fibrillation with RVR at a rate of 165, QTc 355, normal axis, no STEMI Medical Decision Narrative: In summary, this 64-year-old male with a past medical history of morbid obesity, congestive heart failure with preserved ejection fraction (HFpEF, LVEF 55% on 06/17/2024 echocardiogram), diabetes mellitus, obstructive sleep apnea (LORI), chronic lower extremity lymphedema, multiple pressure wounds, and partial right foot amputation for osteomyelitis, A-fib on Eliquis presents to the emergency department today with shortness of breath and nausea/vomiting. On initial evaluation patient is afebrile, hemodynamically stable, satting 100% on room air. Differential diagnosis includes but is not limited to ACS, arrhythmia, pulmonary embolism, bowel obstruction, gastroenteritis, electrolyte abnormality, CHF exacerbation. Based on these concerns, I ordered CBC, CMP, troponin, BNP, VBG, chest x-ray, blood cultures, urinalysis, viral swab, CT PE, CT abdomen pelvis with IV contrast. ECG personally interpreted as noted above. Labs personally reviewed demonstrate white blood cell count of 12.8 which is similar to labs performed on 08/01, chronic anemia with a hemoglobin of 9.4, respiratory alkalosis with venous pH of 7.45 and a pCO2 of 29, lactate of 3.6, potassium of 5.3 which is similar to prior, baseline renal function. XR personally interpreted demonstrates bilateral airspace opacities that likely represents atelectasis. Patient adamantly refused CT imaging due to claustrophobia. Offered the patient anxiolysis, however he was adamant that he would not agree to CT imaging unless he were fully sedated. It was felt to be unsafe to perform a moderate sedation to perform CT imaging at this time. This was discussed with the patient extensively and he understood the risks of not obtaining CT imaging. At this point, the patient had developed atrial fibrillation with RVR up to the 180s. It was discussed that we could not rule out any acute intra-abdominal pathology or pulmonary embolism that could be causing his RVR. Patient understood this however still refused. Ultimately, I consulted hospital medicine for evaluation of the patient at bedside for admission. The patient disclosed that he had not taken any of his cardiac medications this morning including his diltiazem or metoprolol. After evaluation, it was felt the patient's presentation favored to gastroenteritis. On my initial evaluation, he had stated that he had only had 1 episode of diarrhea however his sister disclosed that he has had many more. It was felt that patient was mildly volume overloaded and diuresis with 2 mg of Bumex was recommended. Also recommended reinitiating cardiac medications including diltiazem and metoprolol which were ordered to be taken orally. Patient remained in atrial fibrillation with RVR with a rate greater than 150. Ultimately administered metoprolol 5 mg IV x 2 with improvement down to the 90s to 100. Discussed with hospitalist again who stated that this is adequate in the setting of patient's likely viral illness. Patient was otherwise stable and in no acute distress with no new oxygen requirement, appropriate for discharge with continued management at home with his oral agents, however hospitalization was considered. Critical Care Critical Care Time Critical Care Time: No Total Time Total Critical Care Time: 35
--- OUTSIDE RECORDS SUMMARY | 2024-08-07 11:35 | XMS_ITS | Data Portability ---
Author Organization [facility], [employer] [facility] Address [address] [place] [address] Assessment Encounter Date Assessment Date Assessment LastModified [...] Details Recorded Time 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 294883365 Active 2024 Rigoberto Rucker NP [address], [place], [address], [employer] 5 09:10:54 Peripheral arterial disease 567054807 Active 2024 Rigoberto Rucker [employer] [address], [place], [address], [employer] 5 09:11:40 Paroxysmal atrial fibrillatio n 644242418 Active 2024 Rigoberto Rucker NP [address], [place], [address], [employer] 5 09:14:46 Type 2 diabetes mellitus with peripheral angiopathy 953309010 Active 2024 Rigoberto Rucker NP [address], [place], [address], [employer] 5 09:16:10 Microcytic anemia 816549314 Active 2024 Rigoberto Rucker NP [address], [place], [address], [employer] 5 09:16:33 Essential hypertensio n 18897338 Active 2024 Rigoberto Rucker NP [address], [place], [address], [employer] 5 09:16:50 Body mass index 40+ - severely obese 441754211 Active 2024 Rigoberto Rucker NP [address], [place], [address], [employer] 5 09:18:52 Mixed anxiety and depressive disorder 886550703 Active 2024 Rigoberto Rucker NP [address], [place], [address], [employer] 5 09:19:48 Peripheral neuropathy due to type 2 diabetes mellitus 9220894408863 Active 2024 Rigoberto Rucker NP [address], [place], [address], [employer] 5 09:31:19 Muscle weakness 81332091 Active 2024 Rigoberto Rucker, [employer] [address], [place], [address], [employer] 5 22:21:47 Problem Notes None recorded. Medical Equipment None Reported. Allergies Allergen ID Allergen Name Allergen Category Reaction Reaction Severity Criticality Documentation Date Start Date Code Code System Note Provider Name and Address Organization Details Recorded Time 33241 Substance with sulfonami de structure and antibacte rial mechanism of action (substanc e) medicatio n Not available Not available Not available 05/23/2024 09155 8003 SNOMED Not Available Not Available Not Available 86909 hydromorp desiree medicatio n Not available Not available Not available 05/23/2024 3423 RxNorm Not Available Not Available Not Available 34151 furosemid e medicatio n Not available Not available Not available 05/23/2024 4603 RxNorm Not Available Not Available Not Available 32588 morphine medicatio n Not available Not available [...] Address Organization Details Last Updated DateTime 05/24/2024 477832.8 g 49.1 kg/m2 190.5 cm Unyime Chaim, [employer] [address] [address], [place], [address], [employer] 05/24/2024 08:59:26 Social History None recorded. Functional Status None recorded. Mental Status None recorded. Family History Nothing Reported. Medical History No medical history recorded. Past Encounters Encounter ID Performer Location Encounter Start Date Encounter Closed Date Diagnosis/Indication Diagnosis SNOMED-CT Code Diagnosis ICD10 Code Diagnosis Note [id number] Unphuongme CALLUM Rucker [facility] [address] [place] [id number] 05/24/2024 08:58:51 05/24/2024 22:25:01 Osteomyelitis of forefoot 532089455 M86.9 S/p right fourth toe amputation on 04/23/2024. Patient completed IV Zosyn. Patient advised to keep f/u appointmen t for suture removal. SN for wound management and close monitoring . Peripheral arterial disease 600703040 I73.9 continue to foot ulcers, s/p right 4th toe amputation . Continue Plavix, statin and AC. F/U with vascular surgeon. Paroxysmal atrial fibrillation 492210504 I48.0 Continue Metoprolol for rate control and Eliquis for stroke risk reduction. High risk med, monitor for bleeding. Type 2 ryan betes mellitus with peripheral angiopathy 846755433 E11.52 Z79.4 Reports BG controlled . Continue current diabetic regimen, monitor BG closely to assess for lows and assist with insulin adjustment . Consistent carbohydra te. Microcytic anemia 553041 007 D50.9 Hgb stable per hospital record, continue to optimize dietary iron intake. F/U with PCP for labs monitoring . Essential hypertension 40039876 I10 Continue b/p meds, monitor b/p closely, limit salt. SN for diseases/m eds management and education. Body mass index 40+ - severely obese 381034487 E66.01 Z68.42 BMI 49.1. Discussed at length most important aspect of weight management being calorie balance, and more specifical ly calorie deficit to begin weight loss. Discussed hypothesis of insulin resistance , intermitte nt fasting, and time restricted feeding. Reviewed protocols and recommenda tions. Mixed anxi ety and depressive disorder 087594332 F41.9 F32.A Continue Hydroxyzin e and Trazodone. Peripheral neuropathy due to type 2 diabetes mellitus 9638928973 107 E11.42 Continue Gabapentin for pain management . Muscle weakness 55668496 M62.81 PT/OT eval and treat to address [...] [employer] Member ID Guarantor Name 05/24/2024 1 [facility] (MEDICARE REPLACEMENT/A DVANTAGE - PPO) [id number] Bebeto Stuartraul [id number] Bebeto Kuldip Notes Date Note Type Note [...] for suture removal. Patient will benefit from [facility] services to assist with needs. Hospital records reviewed. Medications reviewed and reconciled. Rigoberto Rucker NP [address] [place] [address], [place], [address], [employer] 05/24/2024 22:24:32
--- NOTE | 2024-08-07 11:41 | ECG_ITS ---
APPROVED REPORT Exam: Resting ECG HR:165 bpm ECG Measurements Heart Rate 165 AXES QRSd 100 QRS 50 QT 264 T -1 QTc 355 Conclusion ATRIAL FIBRILLATION WITH RAPID VENTRICULAR RESPONSE LOW QRS VOLTAGE IN PRECORDIAL LEADS [QRS DEFLECTION < 1.0 mV IN CHEST LEADS] POSSIBLE ANTERIOR MYOCARDIAL INFARCTION , PROBABLY OLD [30 ms Q WAVE IN V3/V4, OR R < 0.2 mV IN V4] CRITICAL TEST RESULT UNCONFIRMED REPORT Electronically signed by : JENNIFER ELIZONDO, 08/08/2024 03:47:45
[2024-08-07 11:47] LABS: Coronavirus 19, PCR Not Detected (NotDetected); Influenza A, PCR Not Detected (NotDetected); Influenza B, PCR Not Detected (NotDetected)
[2024-08-07 11:47] LABS: VBG Base Excess -3.9 mmol/L (-2.4-2.3); VBG HCO3 20.1 mmol/L (23-30); VBG Oxygen Saturation 86.6 % (50-70); VBG PCO2 29.9 mmol/L (35-51); VBG PH 7.45 mmol/L (7.31-7.41); VBG PO2 49.3 mmol/L (28-40)
[2024-08-07 11:50] LABS: Basophils # 0.1 K/mm3 (0-0.2); Basophils % 0.4 % (0.1-2.0); Eosinophils # 0.1 Kmm3 (0.0-0.4); Hematocrit 29.7 % (42.0-52.0); Hemoglobin 9.4 g/dL (14.1-18.0); Lactate Venous 3.6 mmol/L (0.4-2.0); Lymphocytes # 1.7 K/mm3 (0.7-4.5); Lymphocytes % 13.3 % (10-50); Mean Corpuscular HGB Conc 31.6 g/dL (31.8-35.4); Mean Corpuscular Hemoglobin 24.5 pg (27.0-31.2); Mean Corpuscular Volume 77.3 fl (80-94); Mean Platelet Volume 8.9 fl (7.4-10.4); Monocytes # 0.8 K/mm3 (0.1-1.0); Neutrophils # 10.1 K/mm3 (1.8-7.8); Neutrophils % 78.9 % (37.0-80.0); Nucleated Red Blood Cells # 0 10^3/uL; Nucleated Red Blood Cells % 0 %; Platelet Count 402 K/mm3 (142-424); Red Blood Count 3.84 M/mm3 (4.60-6.20); Red Cell Distribution Width 16.8 % (11.5-17.5); Red Cell Distribution Width-SD 47.3 fL; White Blood Count 12.8 K/mm3 (4.8-10.8)
[2024-08-07 11:56] LABS: Chloride 101 mmol/L (98-107)
[2024-08-07 11:57] LABS: Albumin Level 3.9 g/dl (3.5-5.0); Potassium 5.3 mmoL/L (3.5-5.1); Sodium 133 mmol/L (136-145)
[2024-08-07 11:59] LABS: Alanine Aminotransferase 20 U/L (12-78); Anion Gap 14.3 mEq/L (5-15); Aspartate Amino Transferase 20 U/L (17-59); Blood Urea Nitrogen 39 mg/dl (9-20); Carbon Dioxide 23 mmol/L (22.0-30.0); Creatinine Clearance Estimated 90 mL/min (50-200); Estimated Glomerular Filt Rate 75 ml/min (>60); GFR (African American) 91 ML/MIN (>60)
[2024-08-07 12:00] LABS: Albumin/Globulin Ratio 1.1 (1.1-1.8); Alkaline Phosphatase 148 U/L (38-126); Bilirubin,Total 0.5 mg/dl (0.2-1.3); Calcium 9.5 mg/dl (8.4-10.2); Globulin 3.5 g/dL (1.3-3.2); Glucose 324 mg/dl (74-100); Total Protein,Serum 7.4 g/dl (6.3-8.2)
[2024-08-07 12:09] LABS: NT Pro Brain Natriuretic Pep. 1870 pg/mL (0-125)
[2024-08-07 12:17] LABS: Troponin I < 0.01 ng/ml (0.00-0.034)
--- NOTE | 2024-08-07 12:17 | PC.NURSE ---
pt removed his cardiac monitoring stickers, they were reapplied and he was asked to leave them on. no new complaints at this time. no needs voiced. call wynne in reach.
--- NOTE | 2024-08-07 12:20 | PC.NURSE ---
PT REFUSES TO HAVE CT SCAN, DR HAMPTON AT BEDSIDE EXPLAINING IMPORTANCE OF SCAN. PT YELLING AT STAFF REFUSING CT BECAUSE HE IS CLAUSTROPHOBIC. DR HAMPTON OFFERED MEDICATION FOR ANXIETY. PT CONTINUES TO YELL AT STAFF AND REFUSE CT SCAN
--- NOTE | 2024-08-07 12:24 | PC.NURSE ---
DR HAMPTON SPEAKING WITH HOSPITALIST
--- NOTE | 2024-08-07 12:25 | PC.NURSE ---
XR AT BEDSIDE
--- NOTE | 2024-08-07 12:27 | PC.NURSE ---
DR HAMPTON AT BEDSIDE TO UPDATE PT AND FAMILY
--- NOTE | 2024-08-07 12:28 | PC.NURSE ---
PT REQUESTING TO BE TRANSFERRED TO [facility] FOR CT SCAN UNDER SEDATION, DR HAMPTON EXPLAINING TO PT POC
--- NOTE | 2024-08-07 12:34 | HMH.ITSTN ---
pt refuses to have CT scans
[2024-08-07 12:45] LABS: Adenovirus,PCR Not Detected (NotDetected); Bordetella Pertussis Not Detected (NotDetected); Chlamydophila Pneumoniae, PCR Not Detected (NotDetected); Coronavirus 19, PCR Not Detected (NotDetected); Coronavirus 229E Not Detected (NotDetected); Coronavirus NL63 Not Detected (NotDetected); Coronavirus OC43 Not Detected (NotDetected); Coronovirus HKU1,PCR Not Detected (NotDetected); Human Metapneumovirus Not Detected (NotDetected); Influenza A, PCR Not Detected (NotDetected); Influenza AH1, 2009 Not Detected (NotDetected); Influenza AH1, PCR Not Detected (NotDetected); Influenza AH3,PCR Not Detected (NotDetected); Influenza B, PCR Not Detected (NotDetected); Mycoplasma Pneumoniae, PCR Not Detected (NotDetected); Parainfluenza 1, PCR Not Detected (NotDetected); Parainfluenza 2, PCR Not Detected (NotDetected); Parainfluenza 3, PCR Not Detected (NotDetected); Parainfluenza 4, PCR Not Detected (NotDetected); Respiratory Syncytial Virus Not Detected (NotDetected); Rhinovirus/Enterovirus Not Detected (NotDetected)
[2024-08-07] MEDS: METOPROLOL SUCCINATE XL 100MG TABLET 150 MG PO (12:50)
[2024-08-07] MEDS: dilTIAZem HCL 180MG CAP.ER.24H 360 MG PO (12:50)
--- NOTE | 2024-08-07 12:53 | PC.NURSE ---
PT MEDICATED PER EMAR, REPOSITIONED IN CHAIR, PT REFUSES TO SIT IN BED. CALL LIGHT WITHIN REACH. FAMILY AT BEDSIDE
--- NOTE | 2024-08-07 12:55 | PC.NURSE ---
HOSPITALIST AT BEDSIDE
[2024-08-07 13:17] LABS: Campylobacter Not Detected (NotDetected); Clostridium Difficile A/B, PCR Not Detected (NotDetected); Cryptosporidium Not Detected (NotDetected); Cyclospora Cayetanesis Not Detected (NotDetected); Entamoeba histolytica Not Detected (NotDetected); Enteroaggregative E coli Not Detected (NotDetected); Enteropathogenic E coli Not Detected (NotDetected); Enterotoxigenic E coli Not Detected (NotDetected); Plesimonas Shigalloides, PCR Not Detected (NotDetected); Salmonella, PCR Not Detected (NotDetected); Shiga-like toxin E coli Not Detected (NotDetected); Shigella Enterovasive E coli Not Detected (NotDetected); Vibrio Cholerae Not Detected (NotDetected); Vibrio, PCR Not Detected (NotDetected); Yersinia Entercolitica, PCR Not Detected (NotDetected)
[2024-08-07 13:18] LABS: Adenovirus F 40/41, stool Not Detected (NotDetected); Astrovirus Not Detected (NotDetected); Giardia lamblia Not Detected (NotDetected); Norovirus Not Detected (NotDetected); Rotavirus A Not Detected (NotDetected); Sapovirus Not Detected (NotDetected)
--- NOTE | 2024-08-07 13:19 | P.CONS_ITS ---
[facility] Disclaimer: The information contained in this section may have been updated after the patient was seen, as this information can be updated by other users. 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 Social History (Updated 07/28/24 @ 04:29 by Néstor Haines RN) Smoking Status: Current every day smoker alcohol intake: never current occupational status: retired and disabled Travel in the last 8 weeks: None Have you lived/traveled outside [place] in past 30 days?: No Contact w/someone who lives/traveled outside US past 30 days?: No Exposure to someone with infectious disease in past 14 days?: No Do you have a fever (greater than 100.4 F or 38 C)?: No Have you tested positive for COVID-19: No Exposed to someone with COVID-19 in past 14 days?: No Do you have a sore throat?: No Do you have a cough?: No Do you have any weakness?: No Do you have any diarrhea?: Yes Are you experiencing any unusual bleeding?: No Do you have any muscle aches/pain?: No Do you have any abdominal pain?: No Are you experiencing loss of taste or smell?: No Exam Data for Last 24 hours Vital signs and Labs for Last 24 Hours: Temp Pulse Resp BP Pulse Ox O2 Del Method 98.7 F 75 17 117/85 97 Room Air 08/07/24 10:53 08/07/24 13:00 08/07/24 13:00 08/07/24 13:00 08/07/24 13:00 08/07/24 13:00 Laboratory Results - last 24 hr 08/07/24 11:39: WBC 12.8 H, RBC 3.84 L, Hgb 9.4 L, Hct 29.7 L, MCV 77.3 L, MCH 24.5 L, MCHC 31.6 L, RDW 16.8, Plt Count 402, MPV 8.9, Neut % (Auto) 78.9, Lymph % (Auto) 13.3, Stone % (Auto) 6.0, Eos % (Auto) 1.0, Baso % (Auto) 0.4, Neut # (Auto) 10.1 H, Lymph # (Auto) 1.7, Stone # (Auto) 0.8, Eos # (Auto) 0.1, Baso # (Auto) 0.1, VBG pH 7.45 H, VBG pCO2 29.9 L, VBG pO2 49.3 H, VBG HCO3 20.1 L, VBG Total CO2 21.0 L, VBG O2 Saturation 86.6 H, VBG Base Excess -3.9 L, VBG Lactic Acid 3.6 H, Sodium 133 L, Potassium 5.3 H, Chloride 101, Carbon Dioxide 23, Anion Gap 14.3, BUN 39 H, Creatinine 1.00, Estimated Creat Clear 90, Estimated GFR 75, Est GFR ( Amer) 91, Glucose 324 H, Calcium 9.5, Total Bilirubin 0.5, AST 20, ALT 20, Alkaline Phosphatase 148 H, Troponin I < 0.01, NT-Pro-B Natriuret Pep 1870 H, Total Protein 7.4, Albumin 3.9, Globulin 3.5 H, Albumin/Globulin Ratio 1.1 08/07/24 11:43: SARS-CoV-2 (PCR) Not detected, Influenza A Untype (PCR) Not detected, Influenza Type B (PCR) Not detected I & O for Last 24 hours: Intake & Output 08/04/24 08/05/24 08/06/24 08/07/24 23:59 23:59 23:59 23:59 Weight 192.777 kg Meds Home Medications and Allergies Home Medications ?Medication ?Instructions ?Recorded ?Confirmed ?Type apixaban 5 mg tablet (Eliquis) 5 mg PO BID 30 days #60 tabs 06/21/24 07/28/24 Rx aspirin 81 mg tablet,delayed 81 mg PO DAILY 30 days #30 tabs 06/21/24 07/28/24 Rx release atorvastatin 10 mg tablet 10 mg PO HS 30 days #30 tabs 06/21/24 07/28/24 Rx diltiazem HCl 180 mg 360 mg (2 x 180 mg) PO DAILY 30 06/21/24 07/28/24 Rx capsule,extended release 24 hr days #60 caps gabapentin 300 mg capsule 900 mg (3 x 300 mg) PO TID 30 days 06/21/24 07/28/24 Rx #270 caps pantoprazole 40 mg tablet,delayed 40 mg PO HS 30 days #30 tabs 06/21/24 07/28/24 Rx release polyethylene glycol 3350 17 gram 17 g PO DAILY 30 days #30 ea 06/21/24 07/28/24 Rx oral powder packet (HealthyLax) metoprolol succinate 50 mg 150 mg PO DAILY 07/18/24 07/28/24 History tablet,extended release 24 hr metformin 500 mg tablet 1,000 mg (2 x 500 mg) PO BID 30 07/19/24 07/28/24 Rx days #30 tabs ondansetron 4 mg disintegrating 4 mg PO Q8HP PRN nausea and 07/28/24 07/28/24 History tablet vomiting paroxetine HCl 20 mg tablet 20 mg PO DAILY 07/30/24 07/30/24 History bumetanide 2 mg tablet 2 mg PO TID 30 days #90 tabs 08/01/24 Rx insulin glargine 100 unit/mL (3 75 unit (0.75 mL) SQ BID 30 days 08/01/24 Rx mL) subcutaneous pen (Lantus #36 mL Solostar U-100 Insulin) insulin lispro 100 unit/mL See Protocol SQ ACHS 30 days #1.2 08/01/24 Rx subcutaneous solution (Humalog mL U-100 Insulin) semaglutide 0.25 mg or 0.5 mg (2 0.25 mg (0.368 mL) SQ WEEKLY #3 mL 08/01/24 Rx mg/3 mL) subcutaneous pen injector (Ozempic) tizanidine 4 mg tablet 4 mg PO TID PRN Muscle cramps 30 08/01/24 Rx days #30 tabs New Prescriptions to Start Prescriptions: Allergies Allergy/AdvReac Type Severity Reaction Status Date / Time hydromorphone (From Dilaudid) AdvReac Vomiting Verified 07/17/24 13:54 morphine AdvReac Vomiting Verified 07/17/24 13:54 Results Labs 08/07/24 11:39 08/07/24 11:39 Labs: Abnormal lab results 08/07/24 Range/Units 11:39 WBC 12.8 H (4.8-10.8) K/mm3 RBC 3.84 L (4.60-6.20) M/mm3 Hgb 9.4 L (14.1-18.0) g/dL Hct 29.7 L (42.0-52.0) % MCV 77.3 L (80-94) fl MCH 24.5 L (27.0-31.2) pg MCHC 31.6 L (31.8-35.4) g/dL Neut # (Auto) 10.1 H (1.8-7.8) K/mm3 VBG pH 7.45 H (7.31-7.41) mmol/L VBG pCO2 29.9 L (35-51) mmol/L VBG pO2 49.3 H (28-40) mmol/L VBG HCO3 20.1 L (23-30) mmol/L VBG Total CO2 21.0 L (23-27) mmol/L VBG O2 Saturation 86.6 H (50-70) % VBG Base Excess -3.9 L (-2.4-2.3) mmol/L VBG Lactic Acid 3.6 H (0.4-2.0) mmol/L Sodium 133 L (136-145) mmol/L Potassium 5.3 H (3.5-5.1) mmoL/L BUN 39 H (9-20) mg/dl Glucose 324 H (74-100) mg/dl Alkaline Phosphatase 148 H (38-126) U/L NT-Pro-B Natriuret Pep 1870 H (0-125) pg/mL Globulin 3.5 H (1.3-3.2) g/dL H & H 08/07/24 Range/Units 11:39 Hgb 9.4 L (14.1-18.0) g/dL Hct 29.7 L (42.0-52.0) % All other labs normal.
[2024-08-07] MEDS: ONDANSETRON 4MG/2ML VIAL 4 MG IV (13:29)
[2024-08-07] MEDS: BUMETANIDE 1MG/4ML VIAL 2 MG IV (13:30)
--- NOTE | 2024-08-07 13:32 | PC.NURSE ---
MOP RN replaced the pts cardiac monitoring leads, he removed them again. Pt was asked to leave them on so we can monitor his heart. no needs voiced. call wynne in reach.
[2024-08-07] MEDS: METOPROLOL TARTRATE 5MG/5ML VIAL 5 MG IV ×2 (14:14→14:26)
--- NOTE | 2024-08-07 14:52 | PC.NURSE ---
emptied 900 out of urinal
--- NOTE | 2024-08-07 14:52 | PC.NURSE ---
pt was taken to restroom via wheel chair and back to room
--- NOTE | 2024-08-07 14:52 | PC.NURSE ---
dr wallace at bedside to update pt and family
--- NOTE | 2024-08-07 14:52 | PC.NURSE ---
is at bs speaking with pt and family about next plan of care
[2024-08-07 15:49] LABS: Reflex Lactic Add Lactic Reflex
--- NOTE | 2024-08-08 19:42 | PC.NURSE ---
KARTHIK Bills called pt to inform him that he left home medications here. Pt states he will come and pick them up soon.
== END 2024-08-07 15:13 | disposition home or self-care (01) ==
PROVIDERS: Student in an Organized Health Care Education/Training Program; Emergency Provider Student in an Organized Health Care Education/Training Program
DX: I48.91 Unspecified atrial fibrillation (principal); R06.02 Shortness of breath; E87.3 Alkalosis; R11.2 Nausea with vomiting, unspecified; R19.7 Diarrhea, unspecified
CPT/HCPCS: 71045; 80053; 82803; 83880; 84484; 85025; 87040; 87507; 87633; 87636; 93005; 96374; 96375; 99285; J1939; J2405

== ENCOUNTER 2024-08-10 08:44 | Outpatient (CLI) | payer MEDICARE, SELFPAY ==
--- OUTSIDE RECORDS SUMMARY | 2024-08-12 08:46 | XMS_ITS | Data Portability ---
Author Organization [facility] [facility], [facility] [facility] Address [address] [place] [address] Assessment Encounter Date Assessment Date Assessment LastModified [...] Details Recorded Time 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 495046723 Active 2024 Rigoberto Rucker NP [address], [place], [address], [employer] [facility] 5 09:10:54 Peripheral arterial disease 387072915 Active 2024 Rigoberto Rucker HIM ASSISTANT [address], [place], [address], [place] [employer] 5 09:11:40 Paroxysmal atrial fibrillatio n 296094965 Active 2024 Rigoberto Rucker NP [address], [place], [address], [employer] 5 09:14:46 Type 2 diabetes mellitus with peripheral angiopathy 103644375 Active 2024 Rigoberto Rucker NP [address], [place], [address], [employer] 5 09:16:10 Microcytic anemia 580014438 Active 2024 Rigoberto Rucker NP [address], [place], [address], [employer] 5 09:16:33 Essential hypertensio n 13291065 Active 2024 Rigoberto Rucker NP [address], [place], [address], [employer] 5 09:16:50 Body mass index 40+ - severely obese 568147195 Active 2024 Rigoberto Rucker NP [address], [place], [address], [employer] 5 09:18:52 Mixed anxiety and depressive disorder 557364102 Active 2024 Rigoberto Rucker NP [address], [place], [address], [employer] 5 09:19:48 Peripheral neuropathy due to type 2 diabetes mellitus 6758125993970 Active 2024 Rigoberto Rucker NP [address], [place], [address], [employer] 5 09:31:19 Muscle weakness 21951666 Active 2024 Rigoberto Rucker, HIM ASSISTANT [address], [place], [address], [employer] 5 22:21:47 Problem Notes None recorded. Medical Equipment None Reported. Allergies Allergen ID Allergen Name Allergen Category Reaction Reaction Severity Criticality Documentation Date Start Date Code Code System Note Provider Name and Address Organization Details Recorded Time 55852 Substance with sulfonami de structure and antibacte rial mechanism of action (substanc e) medicatio n Not available Not available Not available 05/23/2024 54548 8003 SNOMED naima page null, [employer] 5 10:26:26 26270 hydromorp desiree medicatio n Not available Not available Not available 05/23/2024 3423 RxNorm naima page null, [employer] 5 10:26:37 00599 furosemid e medicatio n Not available Not available Not available 05/23/2024 4603 RxNorm naima page null, [employer] 5 10:26:45 91952 morphine medicatio n Not available Not available Not available 05/23/2024 7052 RxNorm naima page null, [employer] 5 10:26:52 Medications Name Sig Start Date [...] Address Organization Details Last Updated DateTime 05/24/2024 254195.8 g 49.1 kg/m2 190.5 cm Unyime Eyoh, HIM ASSISTANT [address], [place], [address], [place] - [employer] 05/24/2024 08:59:26 Social History None recorded. Functional Status None recorded. Mental Status None recorded. Family History Nothing Reported. Medical History No medical history recorded. Past Encounters Encounter ID Performer Location Encounter Start Date Encounter Closed Date Diagnosis/Indication Diagnosis SNOMED-CT Code Diagnosis ICD10 Code Diagnosis Note [id number] Rigoberto Rucker NP [place] [facility] [place] [address] [place] [phone] 05/24/2024 08:58:51 05/24/2024 22:25:01 Osteomyelitis of forefoot 025114406 M86.9 S/p right fourth toe amputation on 04/23/2024. Patient completed IV Zosyn. Patient advised to keep f/u appointmen t for suture removal. HH SN for wound management and close monitoring . Peripheral arterial disease 565769297 I73.9 continue to foot ulcers, s/p right 4th toe amputation . Continue Plavix, statin and AC. F/U with vascular surgeon. Paroxysmal atrial fibrillation 472202673 I48.0 Continue Metoprolol for rate control and Eliquis for stroke risk reduction. High risk med, monitor for bleeding. Type 2 ryan betes mellitus with peripheral angiopathy 011172738 E11.52 Z79.4 Reports BG controlled . Continue current diabetic regimen, monitor BG closely to assess for lows and assist with insulin adjustment . Consistent carbohydra te. Microcytic anemia 762690 007 D50.9 Hgb stable per hospital record, continue to optimize dietary iron intake. F/U with PCP for labs monitoring . Essential hypertension 22695044 I10 Continue b/p meds, monitor b/p closely, limit salt. SN for diseases/m eds management and education. Body mass index 40+ - severely obese 498251091 E66.01 Z68.42 BMI 49.1. Discussed at length most important aspect of weight management being calorie balance, and more specifical ly calorie deficit to begin weight loss. Discussed hypothesis of insulin resistance , intermitte nt fasting, and time restricted feeding. Reviewed protocols and recommenda tions. Mixed anxi ety and depressive disorder 847063882 F41.9 F32.A Continue Hydroxyzin e and Trazodone. Peripheral neuropathy due to type 2 diabetes mellitus 0276189667 107 E11.42 Continue Gabapentin for pain management . Muscle weakness 37579898 M62.81 HH PT/OT eval and treat to [...] Are[employer]o Member ID Guarantor Name 05/24/2024 1 [facility] (MEDICARE REPLACEMENT/A DVANTAGE - PPO) [id number] Bebeto Christiansen [id number] Bebeto Christiansen Notes Date Note Type Note [...] for suture removal. Patient will benefit from [facility] services to assist with needs. Hospital records reviewed. Medications reviewed and reconciled. Rigoberto Rucker NP [address] [place] [address], [phone], [employer] 05/24/2024 22:24:32
== END 2024-08-10 23:59 | disposition home or self-care (01) ==
LOC: LAB.DROPOF 08-12 08:44
PROVIDERS: PCP Internal Medicine; Visit Provider Internal Medicine
DX: S81.809A Unspecified open wound, unspecified lower leg, initial encounter (principal); R60.0 Localized edema
CPT/HCPCS: 87070; 87077; 87186; 87205

== ENCOUNTER 2024-08-11 07:34 | Emergency (ER) | payer MEDICARE, SELFPAY ==
[2024-08-11 07:52] VITALS: BP 167/74; PULSE 113; RESP 20; TEMP 36.8; O2SAT 98; BMI 57.7
--- OUTSIDE RECORDS SUMMARY | 2024-08-11 07:58 | XMS_ITS | Data Portability ---
Author Organization [facility], [facility] Address [address] [place] [address] Assessment Encounter Date Assessment Date Assessment LastModified [...] Details Recorded Time 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 702012699 Active 2024 Rigoberto Rucker NP [address], [place], [address], [employer] 5 09:10:54 Peripheral arterial disease 187079747 Active 2024 Rigoberto Rucker [employer] [address], [place], [address], [place] [employer] 5 09:11:40 Paroxysmal atrial fibrillatio n 020156629 Active 2024 Rigoberto Rucker NP [address], [place], [address], [employer] 5 09:14:46 Type 2 diabetes mellitus with peripheral angiopathy 640369656 Active 2024 Rigoberto Rucker NP [address], [place], [address], [employer] 5 09:16:10 Microcytic anemia 934503956 Active 2024 Rigoberto Rucker NP [address], [place], [address], [employer] 5 09:16:33 Essential hypertensio n 36319080 Active 2024 Rigoberto Rucker NP [address], [place], [address], [employer] 5 09:16:50 Body mass index 40+ - severely obese 162214211 Active 2024 Rigoberto Rucker NP [address], [place], [address], [employer] 5 09:18:52 Mixed anxiety and depressive disorder 322477354 Active 2024 Rigoberto Rucker NP [address], [place], [address], [employer] 5 09:19:48 Peripheral neuropathy due to type 2 diabetes mellitus 1758684464503 Active 2024 Rigoberto Rucker NP [address], [place], [address], [employer] 5 09:31:19 Muscle weakness 88362906 Active 2024 Rigoberto Rucker, [employer] [address], [place], [address], [employer] 5 22:21:47 Problem Notes None recorded. Medical Equipment None Reported. Allergies Allergen ID Allergen Name Allergen Category Reaction Reaction Severity Criticality Documentation Date Start Date Code Code System Note Provider Name and Address Organization Details Recorded Time 39718 Substance with sulfonami de structure and antibacte rial mechanism of action (substanc e) medicatio n Not available Not available Not available 05/23/2024 73177 8003 SNOMED niama page null, [employer] 5 10:26:26 29527 hydromorp desiree medicatio n Not available Not available Not available 05/23/2024 3423 RxNorm naima page null, [employer] 5 10:26:37 16288 furosemid e medicatio n Not available Not available Not available 05/23/2024 4603 RxNorm naima page null, [employer] 5 10:26:45 40024 morphine medicatio n Not available Not available Not available 05/23/2024 7052 RxNorm naima page null, [employer] 5 10:26:52 Medications Name Sig Start Date [...] Address Organization Details Last Updated DateTime 05/24/2024 225133.8 g 49.1 kg/m2 190.5 cm Unyime Eyoh, [employer] [address], [place], [address], [place] [facility] [employer] 05/24/2024 08:59:26 Social History None recorded. Functional Status None recorded. Mental Status None recorded. Family History Nothing Reported. Medical History No medical history recorded. Past Encounters Encounter ID Performer Location Encounter Start Date Encounter Closed Date Diagnosis/Indication Diagnosis SNOMED-CT Code Diagnosis ICD10 Code Diagnosis Note [id number] Rigoberto Rucker NP [place] [facility] [place] [address] [place] [id number] 05/24/2024 08:58:51 05/24/2024 22:25:01 Osteomyelitis of forefoot 107643380 M86.9 S/p right fourth toe amputation on 04/23/2024. Patient completed IV Zosyn. Patient advised to keep f/u appointmen t for suture removal. HH SN for wound management and close monitoring . Peripheral arterial disease 066824531 I73.9 continue to foot ulcers, s/p right 4th toe amputation . Continue Plavix, statin and AC. F/U with vascular surgeon. Paroxysmal atrial fibrillation 626306712 I48.0 Continue Metoprolol for rate control and Eliquis for stroke risk reduction. High risk med, monitor for bleeding. Type 2 ryan betes mellitus with peripheral angiopathy 163768312 E11.52 Z79.4 Reports BG controlled . Continue current diabetic regimen, monitor BG closely to assess for lows and assist with insulin adjustment . Consistent carbohydra te. Microcytic anemia 134188 007 D50.9 Hgb stable per hospital record, continue to optimize dietary iron intake. F/U with PCP for labs monitoring . Essential hypertension 16214201 I10 Continue b/p meds, monitor b/p closely, limit salt. SN for diseases/m eds management and education. Body mass index 40+ - severely obese 877238179 E66.01 Z68.42 BMI 49.1. Discussed at length most important aspect of weight management being calorie balance, and more specifical ly calorie deficit to begin weight loss. Discussed hypothesis of insulin resistance , intermitte nt fasting, and time restricted feeding. Reviewed protocols and recommenda tions. Mixed anxi ety and depressive disorder 551308672 F41.9 F32.A Continue Hydroxyzin e and Trazodone. Peripheral neuropathy due to type 2 diabetes mellitus 4062422430 107 E11.42 Continue Gabapentin for pain management . Muscle weakness 24699769 M62.81 HH PT/OT eval and treat to [...] [employer] Member ID Guarantor Name 05/24/2024 1 [facility] (MEDICARE REPLACEMENT/A DVANTAGE - PPO) [id number] Bebeto Christiansen [id number] Bebeto Christiansen Notes Date Note Type Note [...] for suture removal. Patient will benefit from [facility] services to assist with needs. Hospital records reviewed. Medications reviewed and reconciled. Rigoberto Rucekr NP [address] [place] [address], [phone], [employer] 05/24/2024 22:24:32
--- NOTE | 2024-08-11 08:36 | ED_ITS ---
Discharge Plan Disposition Patient Disposition: Home, Self-Care Chief Complaint: Recheck/Abnormal Lab/Rx Prescriptions Prescriptions: No Action ondansetron 4 mg tablet,disintegrating 4 mg PO Q8HP PRN (Reason: nausea and vomiting) paroxetine HCl 20 mg Tablet 20 mg PO DAILY insulin lispro [Humalog U-100 Insulin] 100 unit/mL Solution See Protocol SQ ACHS 30 Days Qty: 1.2 4RF Protocol: Insulin Corrective Med-Dose Regimen Condition: Fingerstick Blood Glucose Dose/Route: Insulin Units Condition: 151-200 mg/dl Dose/Route: 2 units/SQ Condition: 201-250 mg/dl Dose/Route: 5 units/SQ Condition: 251-300 mg/dl Dose/Route: 8 units/SQ Condition: 301-350 mg/dl Dose/Route: 10 units/SQ Condition: 351-400 mg/dl Dose/Route: 12 units/SQ Condition: 401-450 mg/dl Dose/Route: 15 units/SQ Condition: > 450 mg/dl Dose/Route: CALL MD Protocol Text: Medium Intensity Sliding Scale Insulin tizanidine 4 mg Tablet 4 mg PO TID PRN (Reason: Muscle cramps) 30 Days Qty: 30 0RF bumetanide 2 mg tablet 2 mg PO TID 30 Days Qty: 90 0RF insulin glargine [Lantus Solostar U-100 Insulin] 100 unit/mL (3 mL) Insulin Pen 75 unit SQ BID 30 Days Qty: 36 0RF Ozempic 0.25 mg or 0.5 mg (2 mg/3 mL) pen injector 0.25 mg SQ WEEKLY Qty: 3 0RF Rx Instructions: for 4 weeks polyethylene glycol 3350 [HealthyLax] 17 gram Powder In Packet 17 g PO DAILY 30 Days Qty: 30 0RF atorvastatin 10 mg Tablet 10 mg PO HS 30 Days Qty: 30 0RF diltiazem HCl 180 mg Capsule,Extended Release 24hr 360 mg PO DAILY 30 Days Qty: 60 0RF aspirin 81 mg Tablet,Delayed Release (Dr/Ec) 81 mg PO DAILY 30 Days Qty: 30 0RF pantoprazole 40 mg Tablet,Delayed Release (Dr/Ec) 40 mg PO HS 30 Days Qty: 30 0RF Eliquis 5 mg Tablet 5 mg PO BID 30 Days Qty: 60 0RF gabapentin 300 mg capsule 900 mg PO TID 30 Days Qty: 270 0RF metoprolol succinate 50 mg tablet extended release 24 hr 150 mg PO DAILY Patient Comments: TAKE 3 TABLETS BY MOUTH DAILY metformin 500 mg tablet 1,000 mg PO BID 30 Days Qty: 30 0RF Referrals Follow up/Referrals: Saulo Martinez DO [Primary Care Provider] - See instructions Activity Restrictions/Add. Instructions Additional Instructions/Restrictions: Up with your family doctor and with wound care. Have labs intermittently drawn to follow BNP, kidney function. Also continue elevating legs when not using them. Call your family doctor to establish care for this visit to the emergency department and schedule follow-up within 48 hours to ensure improvement. If you have any worsening of your condition or any other concerning signs or symptoms, return to the emergency department or your primary care doctor for further evaluation. Clinical Impressions Clinical Impression: Bilateral edema of lower extremity, LUPE (acute kidney injury) Print Language Print Language: Algerian Discharge ED Provider: Gino Ardon General Adult HPI General Chief complaint: Recheck/Abnormal Lab/Rx Stated complaint: Leg Pain Time Seen by Provider: 08/11/24 07:42 Mode of Arrival: EMS Source of Information: Patient Description of Symptoms (Recalled from ER Triage Doc. by RN): pt is here today for same cc that he is here for frequently, leg wound issues, pt is over 400lbs and refuses to care for himself. pt states he saw pcp yesterday and is suppose to see him again tmrw. pt states he just wants to be admitted to the hospital and have everyone care for him History of Present Illness HPI narrative: Please note that above description of symptoms, in this electronic medical record under categorization of recalled from ER triage doctor by RN are reflective of an initial nursing assessment, however, is not reflective of my full history and physical exam that was personally taken and clarified. Consequentially, this preceding description of symptoms, which may include the patient's categorized chief complaint in the EMR, do not reflect my personal clinical impression, and the ultimate description of history of present illness and patient stated complaints should be deferred to this section of the note. Unless stated otherwise or congruent with this section of the note, additional signs, symptoms, or incongruence should be interpreted as inaccurate with my clinical impression. Related Data Home Medications ?Medication ?Instructions ?Recorded ?Confirmed metoprolol succinate 50 mg 150 mg PO DAILY 07/18/24 08/10/24 tablet,extended release 24 hr ondansetron 4 mg disintegrating 4 mg PO Q8HP PRN nausea and 07/28/24 08/10/24 tablet vomiting paroxetine HCl 20 mg tablet 20 mg PO DAILY 07/30/24 08/10/24 Previous Rx's ?Medication ?Instructions ?Recorded apixaban 5 mg tablet (Eliquis) 5 mg PO BID 30 days #60 tabs 06/21/24 aspirin 81 mg tablet,delayed 81 mg PO DAILY 30 days #30 tabs 06/21/24 release atorvastatin 10 mg tablet 10 mg PO HS 30 days #30 tabs 06/21/24 diltiazem HCl 180 mg 360 mg (2 x 180 mg) PO DAILY 30 06/21/24 capsule,extended release 24 hr days #60 caps gabapentin 300 mg capsule 900 mg (3 x 300 mg) PO TID 30 days 06/21/24 #270 caps pantoprazole 40 mg tablet,delayed 40 mg PO HS 30 days #30 tabs 06/21/24 release polyethylene glycol 3350 17 gram 17 g PO DAILY 30 days #30 ea 06/21/24 oral powder packet (HealthyLax) metformin 500 mg tablet 1,000 mg (2 x 500 mg) PO BID 30 07/19/24 days #30 tabs bumetanide 2 mg tablet 2 mg PO TID 30 days #90 tabs 08/01/24 insulin glargine 100 unit/mL (3 75 unit (0.75 mL) SQ BID 30 days 08/01/24 mL) subcutaneous pen (Lantus #36 mL Solostar U-100 Insulin) insulin lispro 100 unit/mL See Protocol SQ ACHS 30 days #1.2 08/01/24 subcutaneous solution (Humalog mL U-100 Insulin) semaglutide 0.25 mg or 0.5 mg (2 0.25 mg (0.368 mL) SQ WEEKLY #3 mL 08/01/24 mg/3 mL) subcutaneous pen injector (Ozempic) tizanidine 4 mg tablet 4 mg PO TID PRN Muscle cramps 30 08/01/24 days #30 tabs Allergies Allergy/AdvReac Type Severity Reaction Status Date / Time hydromorphone (From Dilaudid) AdvReac Vomiting Verified 08/10/24 15:59 morphine AdvReac Vomiting Verified 08/10/24 15:59 [facility] Disclaimer: The information contained in this section may have been updated after the patient was seen, as this information can be updated by other users. 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 Social History Smoking Status: Never smoker alcohol intake: never current occupational status: retired and disabled Travel in the last 8 weeks?: None Have you lived/traveled outside US in past 30 days?: No Contact w/someone who lives/traveled outside US past 30 days?: No Exposure to someone with infectious disease in past 14 days?: No Do you have a fever (greater than 100.4 F or 38 C)?: No Have you tested positive for COVID-19?: No Exposed to someone with COVID-19 in past 14 days?: No Do you have a sore throat?: No Do you have a cough?: No Do you have any weakness?: No Do you have any diarrhea?: No Are you experiencing any unusual bleeding?: No Do you have any muscle aches/pain?: No Do you have any abdominal pain?: No Are you experiencing loss of taste or smell?: No Other Medical History Have you received the Flu Vaccine for this season: No Have you received the Pneumonia Vaccine: No ROS Obtained: Yes All systems reviewed & no additional complaints except as documented Physical Exam General General appearance: alert, in no apparent distress and obese Head Head exam: atraumatic and normocephalic Eye Eye exam: Present normal appearance, PERRL and EOMI Neck Neck exam: Present normal inspection, full ROM and trachea midline Respiratory Respiratory exam: Absent respiratory distress, wheezes, stridor, accessory muscle use or prolonged expiratory phase Cardiovascular Cardiovascular exam: Present other (Pulses equal symmetric in upper and lower extremities) Abdominal Exam Abdominal exam: Present soft; Absent distention, tenderness or pulsatile mass Extremities Exam Extremities exam: Present edema (With weeping and superficial ulcerations) Neurological Exam Neurological exam: Present alert, oriented X3 and CN II-XII intact; Absent motor sensory deficit Skin Skin exam: Present warm and dry; Absent diaphoresis or erythema Medical Decision Making Medical Records Medical records reviewed: Yes I reviewed the patient's medical records. Screening: Per USPSTF and CDC recommendations, given the prevalence of disease in our region, it is our hospital?s policy to screen for HIV and viral Hepatitis for all patients aged 18 and over and those with ongoing risk factors. Madi Inquiry Pt receiving controlled substance: No Madi was queried for this patient: No Vital Signs: 08/11/24 07:52 Temperature 98.2 F Temperature Source Oral Pulse Rate [Left Radial] 113 H Respiratory Rate 20 Blood Pressure [Right Arm] 167/74 H Blood Pressure Mean [Right Arm] 105 02 Sat by Pulse Oximetry 98 Oxygen Delivery Method Room Air Lab Data Lab Results 08/11/24 08:41: WBC 13.9 H, RBC 3.94 L, Hgb 9.6 L, Hct 30.3 L, MCV 76.9 L, MCH 24.4 L, MCHC 31.7 L, RDW 16.5, Plt Count 409, MPV 9.1, Neut % (Auto) 82.7 H, Lymph % (Auto) 10.6, [place] % (Auto) 5.3, Eos % (Auto) 0.8, Baso % (Auto) 0.4, N eut # (Auto) 11.5 H, Lymph # (Auto) 1.5, [place] # (Auto) 0.7, Eos # (Auto) 0.1, Baso # (Auto) 0.1, Sodium 132 L, Potassium 4.8, Chloride 98, Carbon Dioxide 28, Anion Gap 10.8, BUN 30 H, Creatinine 1.30 H, Estimated Creat Clear 68, Estimated GFR 56 L, Est GFR ( Amer) 67, Glucose 339 H, Calcium 9.4, Total Bilirubin 0.5, AST 21, ALT 16, Alkaline Phosphatase 129 H, NT-Pro-B Natriuret Pep 2510 H, Total Protein 7.4, Albumin 3.9, Globulin 3.5 H, Albumin/Globulin Ratio 1.1 08/11/24 08:47: VBG pH 7.38, VBG pCO2 45.7, VBG pO2 38.1, VBG HCO3 26.4, VBG Total CO2 27.8 H, VBG O2 Saturation 69.8, VBG Base Excess 1.2, VBG Lactic Acid 2.4 H 08/11/24 08:41 08/11/24 08:41 Orders (Tests/Meds): ORDERS Category Date Time Status Consult to Case Management [CONS] Routine Cons 08/11/24 08:04 Active CBC w/Auto Diff [Complete Blood Count Auto Diff] Stat Lab 08/11/24 08:41 Completed CMP [Comprehensive Metabolic Panel] Stat Lab 08/11/24 08:41 Completed NT Pro Brain Natriuretic Pep. Stat Lab 08/11/24 08:41 Completed VBG [Venous Blood Gas] Stat RT 08/11/24 08:47 Completed Medical Decision Narrative: This is a 64-year-old male presenting with lower extremity swelling and weeping. He was just seen in the emergency department a couple days prior to this for lower extremity swelling, CHF, atrial fibrillation. States that he is supposed to follow-up with the family doctor tomorrow, 08/12. Family doctor said that if he had any more hiccups, that he should come back to the emergency department. Patient states that he had a hiccup, today and that he noticed his legs felt like they were more swollen and they were continuing to weep. No changes. States he has not looked at them, his sister lives with him and not to changes his dressings. No fevers or chills, nausea or vomiting, worsening chest pain, shortness of breath, or any changes from baseline. History was obtained via conversation with patient and EMS. On arrival, patient hemodynamically stable, alert, oriented x4, appropriate, GCS 15, moving all extremities spontaneously, pupils equal and reactive to light. Full physical exam performed and significant for chronically ill-appearing male who is obese, in no acute distress. Superficially tender secondary to diabetic neuropathy of the lower extremities. Bilateral lower extremities are edematous, weeping, they have size 8 toddler diapers wrapped around them to control the weeping. Superficial ulcerations associated. No evidence of cellulitis. Does have amputated digits on both feet, neither of which appears to be purulent and both have granulation tissue in the beds. Able to lift legs straight out extend and flex at knees and hips. Differential includes dependent edema, CHF, cellulitis, sepsis, less likely be NSTI, among others. Patient placed on continuous cardiac monitoring and continuous pulse ox with initial blood pressure 167/74, heart rate 113, saturation 98% on room air. Patient's dressings were removed. When he looked down to look at them, he states they actually look a lot better than they did yesterday! Still weeping. Legs are tender secondary to neuropathy. I do not appreciate anything that looks like cellulitis. Basic labs to be drawn to compare with previous, especially since he has no changes from baseline other than continued swelling, which he states is not any worse than he is used to. His biggest concern is the weeping feels that its gotten worse. On independent interpretation, patient has chronically elevated white blood cell count, slight LUPE, mildly elevated BNP, but states that subjectively the swelling is gotten better. No oxygen requirement, no increased work of breathing, patient clinically well otherwise in no acute distress. Given patient presentation, workup, history, this most likely represents chronic lower extremity edema. Patient states that regarding social determinants of health, he has good follow-up tomorrow, 08/12 with his family doctor, family at home able to dress his wounds and help him out, wound consultation to be put in to help him with his wounds chronically. Because patient at baseline without signs or symptoms of clinical decompensation, deemed appropriate for discharge. Results were relayed to patient who voiced understanding and were agreeable to outpatient management and follow up. I discussed my clinical impression with patient and answered all questions. At this time, the evidence for any other entities in the differential is insufficient to warrant any further testing or ED observation. This was explained as well. Advisory was given that persistent or worsening symptoms require further evaluation. I confirmed the understanding of this discussion. Assistant Community Manager disclaimer Much of this encounter note is an electronic annual giving officer spoken language to printed text. Electronic annual giving officer of the spoken language may permit errors. Although I have reviewed the note, some errors may still exist. Critical Care Critical Care Time Critical Care Time: No
--- NOTE | 2024-08-11 08:46 | PC.NURSE ---
respiratory aware of vbg order
[2024-08-11 08:48] LABS: Basophils # 0.1 K/mm3 (0-0.2); Basophils % 0.4 % (0.1-2.0); Eosinophils # 0.1 Kmm3 (0.0-0.4); Eosinophils % 0.8 % (0.1-12.0); Hematocrit 30.3 % (42.0-52.0); Hemoglobin 9.6 g/dL (14.1-18.0); Lymphocytes # 1.5 K/mm3 (0.7-4.5); Lymphocytes % 10.6 % (10-50); Mean Corpuscular HGB Conc 31.7 g/dL (31.8-35.4); Mean Corpuscular Hemoglobin 24.4 pg (27.0-31.2); Mean Corpuscular Volume 76.9 fl (80-94); Mean Platelet Volume 9.1 fl (7.4-10.4); Monocytes # 0.7 K/mm3 (0.1-1.0); Monocytes % 5.3 % (1.7-9.3); Neutrophils # 11.5 K/mm3 (1.8-7.8); Neutrophils % 82.7 % (37.0-80.0); Nucleated Red Blood Cells # 0 10^3/uL; Nucleated Red Blood Cells % 0 %; Platelet Count 409 K/mm3 (142-424); Red Blood Count 3.94 M/mm3 (4.60-6.20); Red Cell Distribution Width 16.5 % (11.5-17.5); Red Cell Distribution Width-SD 46.1 fL; White Blood Count 13.9 K/mm3 (4.8-10.8)
[2024-08-11 08:51] LABS: VBG Base Excess 1.2 mmol/L (-2.4-2.3); VBG HCO3 26.4 mmol/L (23-30); VBG Oxygen Saturation 69.8 % (50-70); VBG PCO2 45.7 mmol/L (35-51); VBG PH 7.38 mmol/L (7.31-7.41); VBG PO2 38.1 mmol/L (28-40); VBG Total CO2 27.8 mmol/L (23-27)
[2024-08-11 08:53] LABS: Lactate Venous 2.4 mmol/L (0.4-2.0)
[2024-08-11 08:54] LABS: Albumin Level 3.9 g/dl (3.5-5.0); Chloride 98 mmol/L (98-107); Potassium 4.8 mmoL/L (3.5-5.1); Sodium 132 mmol/L (136-145)
[2024-08-11 08:57] LABS: Alanine Aminotransferase 16 U/L (12-78); Albumin/Globulin Ratio 1.1 (1.1-1.8); Alkaline Phosphatase 129 U/L (38-126); Anion Gap 10.8 mEq/L (5-15); Aspartate Amino Transferase 21 U/L (17-59); Bilirubin,Total 0.5 mg/dl (0.2-1.3); Blood Urea Nitrogen 30 mg/dl (9-20); Calcium 9.4 mg/dl (8.4-10.2); Carbon Dioxide 28 mmol/L (22.0-30.0); Creatinine Clearance Estimated 68 mL/min (50-200); Estimated Glomerular Filt Rate 56 ml/min (>60); GFR (African American) 67 ML/MIN (>60); Globulin 3.5 g/dL (1.3-3.2); Glucose 339 mg/dl (74-100); Total Protein,Serum 7.4 g/dl (6.3-8.2)
[2024-08-11 09:06] LABS: NT Pro Brain Natriuretic Pep. 2510 pg/mL (0-125)
--- NOTE | 2024-08-11 09:29 | SW/DCPLANNER ---
I received a consult on this patient regarding pt needs LTC and wants to be admitted to [facility]. ED nursing staff suggested an LTAC facility. I did explain to ED staff that patient would not meet LTAC criteria for wound care. Patient expressed that he is not interested in placement at this time. Patient is currently established w/ outpatient wound care and PCP (Dr Martinez). I will continue to follow up w/ patient to assist w/ any further needs. Patient is not a candidate for home health services at this time due to insurance.
[2024-08-11 09:46] VITALS: BP 147/84; PULSE 90; O2SAT 99
[2024-08-11 11:26] VITALS: BP 146/78; PULSE 80; RESP 20; TEMP 36.8; O2SAT 98
[2024-08-11 12:53] LABS: Reflex Lactic Add Lactic Reflex
== END 2024-08-11 11:27 | disposition home or self-care (01) ==
PROVIDERS: Emergency Provider Emergency Medicine; PCP Internal Medicine
DX: I87.2 Venous insufficiency (chronic) (peripheral) (principal); I73.9 Peripheral vascular disease, unspecified; E66.01 Morbid (severe) obesity due to excess calories; E87.1 Hypo-osmolality and hyponatremia; E11.65 Type 2 diabetes mellitus with hyperglycemia; R22.43 Localized swelling, mass and lump, lower limb, bilateral; Z68.43 Body mass index [BMI] 50.0-59.9, adult
CPT/HCPCS: 80053; 82803; 83880; 85025; 99284

== ENCOUNTER 2024-08-31 10:00 | Outpatient (RCR) | payer MEDICARE, SELFPAY ==
--- NOTE | 2024-08-31 13:04 | HMH.RHREAS ---
Rehab Reassessment Rehab OP Re-assessment Start: 08/12/24 16:01 Freq: Status: Active Protocol: Document 08/31/24 12:52 PHORNEGRA (Rec: 08/31/24 13:04 PHORNE [id number]) E-signed By Pete Coyle, PT Jose Alberto Wound Assessment Tool Assessment Wound size 5=Length x Width >80 sq cm Wound depth 2=Partial thickness skin loss involving epidermis &/or dermis Wound edges 2=Distinct, outline clearly visible, attached, even with wound base Wound undermining 1=None present Necrotic tissue type 2=White/bhakta non-viable tissue &/or non-adherent yellow slough Necrotic tissue amount 2=<25% of wound bed covered Exudate type 4=Serous: thin, watery, clear Exudate amount 5=Large Skin color surrounding wound 2=Bright red &/or blanches to touch Peripheral tissue edema 5=Crepitus and/or pitting edema extends > or = 4 cm around wound Peripheral tissue induration 1=None present Granulation tissue 1=Skin intact or partial thickness wound Epithelialization 5= < 25% wound covered Wound assessment total score 37 Rehab Re-assessment Subjective Subjective Pt with much less pain in B LE at this time, remains moderately tender with dressing changes, but overall improved. Imporved mentation this date with medication changes. Objective Objective Notes R Lower leg wound: L= 15.0 cm, W= 15.0 cm, D= 0.1 cm. L Lower leg wound: L= 13.0 cm, W- 11.0 cm, D= 0.1 cm. Drainage remains yellow and copious in nature. Edema: remains 2+ pitting to B LE Assessment Progress Assessment Slower Than Expected Assessment Notes Pt has been present for 3 visits since his initial evaluation. He has shown significant increase in overall B lower leg wound surface area since his initial evaluation. He continues to have severe amounts of yellow drainage from B LE and significant mobility issues that have been a problem for him for some time. Skilled therapy remains indicated to aid reduction of total wound surface area and help control edema in order to return pt to PLOF. Patient goals met ST LT/5 Plan Plan Continue per initial POC. Frequency of Therapy 2 x/wk Duration of therapy 4 wks Time and Billing Re-Eval Time 11 Re-Eval Billing Units 0 Charge for PT reassessment? No PHYSICIAN CERTIFICATION: I certify the specified therapy services for Bebeto Nease are required, authorized, and reviewed every 30 days.
== END 2024-08-31 23:59 | disposition home or self-care (01) ==
LOC: PT 10:00
PROVIDERS: Visit Provider Internal Medicine Adolescent Medicine
DX: L97.919 Non-pressure chronic ulcer of unspecified part of right lower leg with unspecified severity (principal); L97.929 Non-pressure chronic ulcer of unspecified part of left lower leg with unspecified severity
CPT/HCPCS: 97597; 97598

== ENCOUNTER 2024-09-10 22:49 | Inpatient (IN) | payer MEDICARE, SELFPAY ==
[2024-09-10 22:47] VITALS: BP 158/75; PULSE 76; RESP 20; TEMP 37; O2SAT 100; BMI 50.0
[2024-09-10 22:54] VITALS: BP 158/75; PULSE 77; O2SAT 100
--- OUTSIDE RECORDS SUMMARY | 2024-09-10 23:04 | XMS_ITS | Data Portability ---
Author Organization [email or web address] [facility], [employer] Address [address] [place] [address] Assessment Encounter Date Assessment Date Assessment LastModified [...] instructions recorded. Reason for Referral None Reported. Results Created Date Observation Date Name Description Value Unit Range Abnormal Flag Note LastModifiedBy Organization Detail LastModifiedTime 04/23/19 25 04/23/2024 Basic metab olic 2000 panel - Serum or Plasm a glucose [mass/volume ] in capillary blood by glucometer 282 mg/dL low: 70mg/d Lhigh: 130mg/ dL high Gluco se 282 (H) 70 - 130 mg/dL 04/23 7:37 PM EST [facility] Not Available Not Available 09/01/2024 16:25:14 04/23/19 25 04/23/2024 Basic metab olic 2000 panel - Serum or Plasm a interpretati on and review of laboratory results Abnorm al Not Available Not Available 16:25:14 04/23/19 25 04/23/2024 Basic metab olic 2000 panel - Serum or Plasm a glucose [mass/volume ] in capillary blood by glucometer 273 mg/dL low: 70mg/d Lhigh: 130mg/ dL high Gluco se 273 (H) 70 - 130 mg/dL 04/23 4:47 PM EST [facility] [employer] [facility] Not Available Not Available 09/01/2024 16:25:14 04/23/19 25 04/23/2024 Basic metab olic 2000 panel - Serum or Plasm a interpretati on and review of laboratory results Abnorm al Not Available Not Available 16:25:14 04/23/19 25 04/23/2024 Basic metab olic 2000 panel - Serum or Plasm a glucose [mass/volume ] in capillary blood by glucometer 141 mg/dL low: 70mg/d Lhigh: 130mg/ dL high Gluco se 141 (H) 70 - 130 mg/dL 04/23 2:20 PM EST [facility] [employer] [facility] Not Available Not Available 09/01/2024 16:25:14 04/23/19 25 04/23/2024 Basic metab olic 2000 panel - Serum or Plasm a interpretati on and review of laboratory results Abnorm al Not Available Not Available 16:25:14 04/23/19 25 04/23/2024 Basic metab olic 2000 panel - Serum or Plasm a glucose [mass/volume ] in capillary blood by glucometer 137 mg/dL low: 70mg/d Lhigh: 130mg/ dL high Gluco se 137 (H) 70 - 130 mg/dL 04/23 7:18 AM EST [facility] [employer] [employer] Not Available Not Available 09/01/2024 16:25:14 04/23/19 25 04/23/2024 Basic metab olic 2000 panel - Serum or Plasm a interpretati on and review of laboratory results Abnorm al Not Available Not Available 16:25:14 04/23/19 25 04/23/2024 Basic metab olic 1999 panel - Serum or Plasm a glucose [mass/volume ] in serum or plasma 152 mg/dL low: 65mg/d Lhigh: 99mg/d L high Gluco se 152 (H) 65 - 99 mg/dL 04/23 6:03 AM EST [facility] [employer] [employer] Not Available Not Available 09/01/2024 16:25:14 04/23/19 25 04/23/2024 Basic metab olic 1999 panel - Serum or Plasm a urea nitrogen [mass/volume ] in serum or plasma 26 mg/dL low: 8mg/dL high: 23mg/d L high BUN 26 (H) 8 - 23 mg/dL 04/23 6:03 AM EST [facility] [employer] Not Available Not Available 09/01/2024 16:25:14 04/23/19 25 04/23/2024 Basic metab olic 1999 panel - Serum or Plasm a creatinine [mass/volume ] in serum or plasma 1.06 mg/dL low: 0.76mg /dLhig h: 1.27mg /dL Creat inine 1.06 0.76 - 1.27 mg/dL 04/23 6:03 AM EST [employer] [facility] Not Available Not Available 09/01/2024 16:25:14 04/23/19 25 04/23/2024 Basic metab olic 1999 panel - Serum or Plasm a sodium [moles/volum e] in serum or plasma 143 mmol/ L low: 136mmo l/Lhig h: 145mmo l/L Sodiu m 143 136 - 145 mmol/ L 04/23 6:[address] [address] [facility] Not Available Not Available 09/01/2024 16:25:14 04/23/19 25 04/23/2024 Basic metab olic 1999 panel - Serum or Plasm a potassium [moles/volum e] in serum or plasma 4 mmol/ L low: 3.5mmo l/Lhig h: 5.2mmo l/L Potas sium 4.0 3.5 - 5.2 mmol/ L 04/23 6:03 AM EST [facility] [employer] [facility] Not Available Not Available 09/01/2024 16:25:14 04/23/19 25 04/23/2024 Basic metab olic 1999 panel - Serum or Plasm a chloride [moles/volum e] in serum or plasma 101 mmol/ L low: 98mmol /Lhigh : 107mmo l/L Chlor chava 101 98 - 107 mmol/ L 04/23 6:03 AM EST [facility] Not Available Not Available 09/01/2024 16:25:14 04/23/19 25 04/23/2024 Basic metab olic 1999 panel - Serum or Plasm a carbon dioxide, total [moles/volum e] in serum or plasma 33 mmol/ L low: 22mmol /Lhigh : 29mmol /L high CO2 33.0 (H) 22.0 - 29.0 mmol/ L 04/23 6:03 AM EST [facility] [employer] [facility] Not Available Not Available 09/01/2024 16:25:14 04/23/19 25 04/23/2024 Basic metab olic 1999 panel - Serum or Plasm a calcium [moles/volum e] in specimen 9.3 mg/dL low: 8.6mg/ dLhigh : 10.5mg /dL Calci um 9.3 8.6 - 10.5 mg/dL 04/23 6:03 AM EST [employer] [facility] Not Available Not Available 09/01/2024 16:25:14 04/23/19 25 04/23/2024 Basic metab olic 2000 panel - Serum or Plasm a urea nitrogen/cre atinine [mass ratio] in serum or plasma 24.5 low: 7high: 25 BUN/C reati nine Ratio 24.5 7.0 - 25.0 04/23 6:03 AM EST [employer] [facility] [employer] [facility] Not Available Not Available 09/01/2024 16:25:14 04/23/19 25 04/23/2024 Basic metab olic 1999 panel - Serum or Plasm a anion gap in serum or plasma by calculated.3 ions 9 mmol/ L low: 5mmol/ Lhigh: 15mmol /L Anion Gap 9.0 5.0 - 15.0 mmol/ L 04/23 6:03 AM EST [employer] [facility] Not Available Not Available 09/01/2024 16:25:14 04/23/19 25 04/23/2024 Basic metab olic 2000 panel - Serum or Plasm a glomerular filtration rate [volume rate/area] in serum, plasma or blood by creatinine-b ased formula (CKD-epi 2020)/1.73 sq M 79.4 mL/mi n/1.7 3 low: 60mL/m in/1.7 3 eGFR 79.4 >60.0 mL/mi n/1.7 3 04/23 6:03 AM EST [employer] [facility] Not Available Not Available 09/01/2024 16:25:14 04/23/19 25 04/23/2024 Basic metab olic 2000 panel - Serum or Plasm a Unknown Analyte GFR Catego kylee in Chroni c Kidney Diseas e (CKD) GFR Catego ry GFR (mL/mi n/1.73 ) Interp retati on G1 90 or greate r Normal or high (1) G2 60-89 Mild decrea se (1) G3a 45-59 Mild to modera te decrea se G3b 30-44 Modera te to severe decrea se G4 15-29 Severe decrea se G5 14 or less Kidney failur e (1)In the absenc e of eviden ce of kidney diseas e, neithe r GFR catego ry G1 or G2 fulfil l the criter ia for CKD. eGFR calcul ation 2020 CKD-EP I creati nine equati on, which does not includ e race as a factor GFR Categ ories in Chron ic Kidne y Disea se (CKD) GFR Categ ory GFR (mL/m in/1. 73) Inter preta tion G1 90 or great er Etta l or high (1) G2 60-89 Mild decre ase (1) G3a 45-59 Mild to moder ate decre ase G3b 30-44 Moder ate to sever e decre ase G4 15-29 Sever e decre ase G5 14 or less Kidne y failu re (1)In the absen ce of evide nce of kidne y disea se, neith er GFR categ ory G1 or G2 fulfi ll the crite [place] for CKD. eGFR calcu latio n 2020 CKD-E PI creat inine equat ion, which does not inclu de race as a facto r Not Available Not Available 09/01/2024 16:25:14 04/23/19 25 04/23/2024 Basic metab olic 2000 panel - Serum or Plasm a interpretati on and review of laboratory results Abnorm al Not Available Not Available 16:25:14 04/24/19 25 04/24/2024 Basic metab olic 2000 panel - Serum or Plasm a glucose [mass/volume ] in capillary blood by glucometer 144 mg/dL low: 70mg/d Lhigh: 130mg/ dL high Gluco se 144 (H) 70 - 130 mg/dL 04/24 7:[address] Not Available Not Available 09/01/2024 16:25:14 04/24/19 25 04/24/2024 Basic metab olic 2000 panel - Serum or Plasm a interpretati on and review of laboratory results Abnorm al Not Available Not Available 16:25:14 04/24/19 25 04/24/2024 Basic metab olic 2000 panel - Serum or Plasm a glucose [mass/volume ] in capillary blood by glucometer 123 mg/dL low: 70mg/d Lhigh: 130mg/ dL Gluco se 123 70 - 130 mg/dL 04/24 5:[address] Not Available Not Available 09/01/2024 16:25:14 04/24/19 25 04/24/2024 Basic metab olic 2000 panel - Serum or Plasm a interpretati on and review of laboratory results Normal Not Available Not Available 08/12 16:25:14 04/24/19 25 04/24/2024 Basic metab olic 1999 panel - Serum or Plasm a glucose [mass/volume ] in capillary blood by glucometer 184 mg/dL low: 70mg/d Lhigh: 130mg/ dL high Gluco se 184 (H) 70 - 130 mg/dL 04/24 11:[address] Not Available Not Available 09/01/2024 16:25:14 04/24/19 25 04/24/2024 Basic metab olic 2000 panel - Serum or Plasm a interpretati on and review of laboratory results Abnorm al Not Available Not Available 16:25:14 04/24/19 25 04/24/2024 Basic metab olic 2000 panel - Serum or Plasm a glucose [mass/volume ] in serum or plasma 189 mg/dL low: 65mg/d Lhigh: 99mg/d L high Gluco se 189 (H) 65 - 99 mg/dL 04/24 8:[address] Not Available Not Available 09/01/2024 16:25:14 04/24/19 25 04/24/2024 Basic metab olic 2000 panel - Serum or Plasm a urea nitrogen [mass/volume ] in serum or plasma 28 mg/dL low: 8mg/dL high: 23mg/d L high BUN 28 (H) 8 - 23 mg/dL 04/24 8:[address] Not Available Not Available 09/01/2024 16:25:14 04/24/19 25 04/24/2024 Basic metab olic 2000 panel - Serum or Plasm a creatinine [mass/volume ] in serum or plasma 1.14 mg/dL low: 0.76mg /dLhig h: 1.27mg /dL Creat inine 1.14 0.76 - 1.27 mg/dL 04/24 8:[address] Not Available Not Available 09/01/2024 16:25:14 04/24/19 25 04/24/2024 Basic metab olic 1999 panel - Serum or Plasm a sodium [moles/volum e] in serum or plasma 139 mmol/ L low: 136mmo l/Lhig h: 145mmo l/L Sodiu m 139 136 - 145 mmol/ L 04/24 8:43 AM EST [facility] [email or web address] [facility] Not Available Not Available 09/01/2024 16:25:14 04/24/19 25 04/24/2024 Basic metab olic 1999 panel - Serum or Plasm a potassium [moles/volum e] in serum or plasma 4.3 mmol/ L low: 3.5mmo l/Lhig h: 5.2mmo l/L Potas sium 4.3 3.5 - 5.2 mmol/ L 04/24 8:43 AM EST [employer] [facility] Not Available Not Available 09/01/2024 16:25:14 04/24/19 25 04/24/2024 Basic metab olic 1999 panel - Serum or Plasm a chloride [moles/volum e] in serum or plasma 97 mmol/ L low: 98mmol /Lhigh : 107mmo l/L low Chlor chava 97 (L) 98 - 107 mmol/ L 04/24 8:43 AM EST [employer] [facility] Not Available Not Available 09/01/2024 16:25:14 04/24/19 25 04/24/2024 Basic metab olic 1999 panel - Serum or Plasm a carbon dioxide, total [moles/volum e] in serum or plasma 34 mmol/ L low: 22mmol /Lhigh : 29mmol /L high CO2 34.0 (H) 22.0 - 29.0 mmol/ L 04/24 8:43 AM EST [employer] [facility] Not Available Not Available 09/01/2024 16:25:14 04/24/19 25 04/24/2024 Basic metab olic 1999 panel - Serum or Plasm a calcium [moles/volum e] in specimen 9.3 mg/dL low: 8.6mg/ dLhigh : 10.5mg /dL Calci um 9.3 8.6 - 10.5 mg/dL 04/24 8:43 AM EST [employer] [facility] Not Available Not Available 09/01/2024 16:25:14 04/24/19 25 04/24/2024 Basic metab olic 2000 panel - Serum or Plasm a urea nitrogen/cre atinine [mass ratio] in serum or plasma 24.6 low: 7high: 25 BUN/C reati nine Ratio 24.6 7.0 - 25.0 04/24 8:43 AM [employer] [facility] Not Available Not Available 09/01/2024 16:25:14 04/24/19 25 04/24/2024 Basic metab olic 1999 panel - Serum or Plasm a anion gap in serum or plasma by calculated.3 ions 8 mmol/ L low: 5mmol/ Lhigh: 15mmol /L Anion Gap 8.0 5.0 - 15.0 mmol/ L 04/24 8:43 AM [employer] [facility] Not Available Not Available 09/01/2024 16:25:14 04/24/19 25 04/24/2024 Basic metab olic 1999 panel - Serum or Plasm a glomerular filtration rate [volume rate/area] in serum, plasma or blood by creatinine-b ased formula (CKD-epi 2020)/1.73 sq M 72.7 mL/mi n/1.7 3 low: 60mL/m in/1.7 3 eGFR 72.7 >60.0 mL/mi n/1.7 3 04/24 8:43 AM [employer] [facility] Not Available Not Available 09/01/2024 16:25:14 04/24/19 25 04/24/2024 Basic metab olic 2000 panel - Serum or Plasm a Unknown Analyte GFR Catego kylee in Chroni c Kidney Diseas e (CKD) GFR Catego ry GFR (mL/mi n/1.73 ) Interp retati on G1 90 or greate r Normal or high (1) G2 60-89 Mild decrea se (1) G3a 45-59 Mild to modera te decrea se G3b 30-44 Modera te to severe decrea se G4 15-29 Severe decrea se G5 14 or less Kidney failur e (1)In the absenc e of eviden ce of kidney diseas e, neithe r GFR catego ry G1 or G2 fulfil l the criter ia for CKD. eGFR calcul ation 2020 CKD-EP I creati nine equati on, which does not includ e race as a factor GFR Categ ories in Chron ic Kidne y Disea se (CKD) GFR Categ ory GFR (mL/m in/1. 73) Inter preta tion G1 90 or great er Etta l or high (1) G2 60-89 Mild decre ase (1) G3a 45-59 Mild to moder ate decre ase G3b 30-44 Moder ate to sever e decre ase G4 15-29 Sever e decre ase G5 14 or less Kidne y failu re (1)In the absen ce of evide nce of kidne y disea se, neith er GFR categ ory G1 or G2 fulfi ll the crite [place] for CKD. eGFR calcu latio n 2020 CKD-E PI creat inine equat ion, which does not inclu de race as a facto r Not Available Not Available 09/01/2024 16:25:14 04/24/19 25 04/24/2024 Basic metab olic 2000 panel - Serum or Plasm a interpretati on and review of laboratory results Abnorm al Not Available Not Available 16:25:14 04/24/19 25 04/24/2024 Basic metab olic 2000 panel - Serum or Plasm a glucose [mass/volume ] in capillary blood by glucometer 170 mg/dL low: 70mg/d Lhigh: 130mg/ dL high Gluco se 170 (H) 70 - 130 mg/dL 04/24 7:[address] Not Available Not Available 09/01/2024 16:25:14 04/24/19 25 04/24/2024 Basic metab olic 2000 panel - Serum or Plasm a interpretati on and review of laboratory results Abnorm al Not Available Not Available 16:25:14 04/25/19 25 04/25/2024 Basic metab olic 2000 panel - Serum or Plasm a glucose [mass/volume ] in capillary blood by glucometer 107 mg/dL low: 70mg/d Lhigh: 130mg/ dL Gluco se 107 70 - 130 mg/dL 04/25 8:38 PM EST [facility] [employer] [facility] Not Available Not Available 09/01/2024 16:25:14 04/25/19 25 04/25/2024 Basic metab olic 2000 panel - Serum or Plasm a interpretati on and review of laboratory results Normal Not Available Not Available 08/12 16:25:14 04/25/19 25 04/25/2024 Basic metab olic 2000 panel - Serum or Plasm a glucose [mass/volume ] in capillary blood by glucometer 157 mg/dL low: 70mg/d Lhigh: 130mg/ dL high Gluco se 157 (H) 70 - 130 mg/dL 04/25 4:41 PM EST [facility] [employer] [facility] Not Available Not Available 09/01/2024 16:25:14 04/25/19 25 04/25/2024 Basic metab olic 2000 panel - Serum or Plasm a interpretati on and review of laboratory results Abnorm al Not Available Not Available 16:25:14 04/25/19 25 04/25/2024 Basic metab olic 2000 panel - Serum or Plasm a glucose [mass/volume ] in capillary blood by glucometer 198 mg/dL low: 70mg/d Lhigh: 130mg/ dL high Gluco se 198 (H) 70 - 130 mg/dL 04/25 11:28 AM EST [employer] [facility] [employer] [facility] Not Available Not Available 09/01/2024 16:25:14 04/25/19 25 04/25/2024 Basic metab olic 2000 panel - Serum or Plasm a interpretati on and review of laboratory results Abnorm al Not Available Not Available 16:25:14 04/25/19 25 04/25/2024 Basic metab olic 2000 panel - Serum or Plasm a glucose [mass/volume ] in capillary blood by glucometer 128 mg/dL low: 70mg/d Lhigh: 130mg/ dL Gluco se 128 70 - 130 mg/dL 04/25 8:[address] Not Available Not Available 09/01/2024 16:25:14 04/25/19 25 04/25/2024 Basic metab olic 2000 panel - Serum or Plasm a interpretati on and review of laboratory results Normal Not Available Not Available 08/12 16:25:14 04/25/19 25 04/25/2024 Basic metab olic 1999 panel - Serum or Plasm a glucose [mass/volume ] in serum or plasma 131 mg/dL low: 65mg/d Lhigh: 99mg/d L high Gluco se 131 (H) 65 - 99 mg/dL 04/25 5:[address] Not Available Not Available 09/01/2024 16:25:14 04/25/19 25 04/25/2024 Basic metab olic 1999 panel - Serum or Plasm a urea nitrogen [mass/volume ] in serum or plasma 32 mg/dL low: 8mg/dL high: 23mg/d L high BUN 32 (H) 8 - 23 mg/dL 04/25 5:27 AM EST [employer] [facility] Not Available Not Available 09/01/2024 16:25:14 04/25/19 25 04/25/2024 Basic metab olic 1999 panel - Serum or Plasm a creatinine [mass/volume ] in serum or plasma 1.23 mg/dL low: 0.76mg /dLhig h: 1.27mg /dL Creat inine 1.23 0.76 - 1.27 mg/dL 04/25 5:[address] [employer] [facility] Not Available Not Available 09/01/2024 16:25:14 04/25/19 25 04/25/2024 Basic metab olic 1999 panel - Serum or Plasm a sodium [moles/volum e] in serum or plasma 137 mmol/ L low: 136mmo l/Lhig h: 145mmo l/L Sodiu m 137 136 - 145 mmol/ L 04/25 5:[address] Not Available Not Available 09/01/2024 16:25:14 04/25/19 25 04/25/2024 Basic metab olic 1999 panel - Serum or Plasm a potassium [moles/volum e] in serum or plasma 4.2 mmol/ L low: 3.5mmo l/Lhig h: 5.2mmo l/L Potas sium 4.2 3.5 - 5.2 mmol/ L 04/25 5:27 AM EST [facility] [employer] [facility] Not Available Not Available 09/01/2024 16:25:14 04/25/19 25 04/25/2024 Basic metab olic 1999 panel - Serum or Plasm a chloride [moles/volum e] in serum or plasma 96 mmol/ L low: 98mmol /Lhigh : 107mmo l/L low Chlor chava 96 (L) 98 - 107 mmol/ L 04/25 5:27 AM EST [employer] [facility] Not Available Not Available 09/01/2024 16:25:14 04/25/19 25 04/25/2024 Basic metab olic 1999 panel - Serum or Plasm a carbon dioxide, total [moles/volum e] in serum or plasma 35 mmol/ L low: 22mmol /Lhigh : 29mmol /L high CO2 35.0 (H) 22.0 - 29.0 mmol/ L 04/25 5:27 AM EST [employer] [facility] Not Available Not Available 09/01/2024 16:25:14 04/25/19 25 04/25/2024 Basic metab olic 1999 panel - Serum or Plasm a calcium [moles/volum e] in specimen 9 mg/dL low: 8.6mg/ dLhigh : 10.5mg /dL Calci um 9.0 8.6 - 10.5 mg/dL 04/25 5:27 AM EST [employer] [facility] Not Available Not Available 09/01/2024 16:25:14 04/25/19 25 04/25/2024 Basic metab olic 2000 panel - Serum or Plasm a urea nitrogen/cre atinine [mass ratio] in serum or plasma 26 low: 7high: 25 high BUN/C reati nine Ratio 26.0 (H) 7.0 - 25.0 04/25 5:[address] [employer] [facility] [employer] [facility] Not Available Not Available 09/01/2024 16:25:14 04/25/19 25 04/25/2024 Basic metab olic 1999 panel - Serum or Plasm a anion gap in serum or plasma by calculated.3 ions 6 mmol/ L low: 5mmol/ Lhigh: 15mmol /L Anion Gap 6.0 5.0 - 15.0 mmol/ L 04/25 5:[address] [facility] [email or web address] [facility] Not Available Not Available 09/01/2024 16:25:14 04/25/19 25 04/25/2024 Basic metab olic 1999 panel - Serum or Plasm a glomerular filtration rate [volume rate/area] in serum, plasma or blood by creatinine-b ased formula (CKD-epi 2020)/1.73 sq M 66.4 mL/mi n/1.7 3 low: 60mL/m in/1.7 3 eGFR 66.4 >60.0 mL/mi n/1.7 3 04/25 5:27 AM EST [employer] [facility] Not Available Not Available 09/01/2024 16:25:14 04/25/19 25 04/25/2024 Basic metab olic 2000 panel - Serum or Plasm a Unknown Analyte GFR Catego kylee in Chroni c Kidney Diseas e (CKD) GFR Catego ry GFR (mL/mi n/1.73 ) Interp retati on G1 90 or greate r Normal or high (1) G2 60-89 Mild decrea se (1) G3a 45-59 Mild to modera te decrea se G3b 30-44 Modera te to severe decrea se G4 15-29 Severe decrea se G5 14 or less Kidney failur e (1)In the absenc e of eviden ce of kidney diseas e, neithe r GFR catego ry G1 or G2 fulfil l the criter ia for CKD. eGFR calcul ation 2020 CKD-EP I creati nine equati on, which does not includ e race as a factor GFR Categ ories in Chron ic Kidne y Disea se (CKD) GFR Categ ory GFR (mL/m in/1. 73) Inter preta tion G1 90 or great er Etta l or high (1) G2 60-89 Mild decre ase (1) G3a 45-59 Mild to moder ate decre ase G3b 30-44 Moder ate to sever e decre ase G4 15-29 Sever e decre ase G5 14 or less Kidne y failu re (1)In the absen ce of evide nce of kidne y disea se, neith er GFR categ ory G1 or G2 fulfi ll the crite [place] for CKD. eGFR calcu latio n 2020 CKD-E PI creat inine equat ion, which does not inclu de race as a facto r Not Available Not Available 09/01/2024 16:25:14 04/25/19 25 04/25/2024 Basic metab olic 2000 panel - Serum or Plasm a interpretati on and review of laboratory results Abnorm al Not Available Not Available 16:25:14 04/26/19 25 04/26/2024 Basic metab olic 2000 panel - Serum or Plasm a glucose [mass/volume ] in capillary blood by glucometer 96 mg/dL low: 70mg/d Lhigh: 130mg/ dL Gluco se 96 70 - 130 mg/dL 04/26 9:[address] Not Available Not Available 09/01/2024 16:25:15 04/26/19 25 04/26/2024 Basic metab olic 2000 panel - Serum or Plasm a interpretati on and review of laboratory results Normal Not Available Not Available 08/12 16:25:15 04/26/19 25 04/26/2024 Basic metab olic 2000 panel - Serum or Plasm a glucose [mass/volume ] in capillary blood by glucometer 121 mg/dL low: 70mg/d Lhigh: 130mg/ dL Gluco se 121 70 - 130 mg/dL 04/26 3:[address] [facility] Not Available Not Available 09/01/2024 16:25:14 04/26/19 25 04/26/2024 Basic metab olic 2000 panel - Serum or Plasm a interpretati on and review of laboratory results Normal Not Available Not Available 08/12 16:25:14 04/26/19 25 04/26/2024 Basic metab olic 2000 panel - Serum or Plasm a glucose [mass/volume ] in capillary blood by glucometer 157 mg/dL low: 70mg/d Lhigh: 130mg/ dL high Gluco se 157 (H) 70 - 130 mg/dL 04/26 11:[address] Not Available Not Available 09/01/2024 16:25:14 04/26/19 25 04/26/2024 Basic metab olic 2000 panel - Serum or Plasm a interpretati on and review of laboratory results Abnorm al Not Available Not Available 16:25:14 04/26/19 25 04/26/2024 Basic metab olic 2000 panel - Serum or Plasm a glucose [mass/volume ] in capillary blood by glucometer 154 mg/dL low: 70mg/d Lhigh: 130mg/ dL high Gluco se 154 (H) 70 - 130 mg/dL 04/26 7:[address] Not Available Not Available 09/01/2024 16:25:14 04/26/19 25 04/26/2024 Basic metab olic 2000 panel - Serum or Plasm a interpretati on and review of laboratory results Abnorm al Not Available Not Available 16:25:14 04/26/19 25 04/26/2024 Basic metab olic 2000 panel - Serum or Plasm a glucose [mass/volume ] in serum or plasma 161 mg/dL low: 65mg/d Lhigh: 99mg/d L high Gluco se 161 (H) 65 - 99 mg/dL 04/26 6:[address] Not Available Not Available 09/01/2024 16:25:14 04/26/19 25 04/26/2024 Basic metab olic 2000 panel - Serum or Plasm a urea nitrogen [mass/volume ] in serum or plasma 35 mg/dL low: 8mg/dL high: 23mg/d L high BUN 35 (H) 8 - 23 mg/dL 04/26 6:48 AM EST [employer] [facility] [employer] [facility] [employer] [facility] Not Available Not Available 09/01/2024 16:25:14 04/26/19 25 04/26/2024 Basic metab olic 1999 panel - Serum or Plasm a creatinine [mass/volume ] in serum or plasma 1.13 mg/dL low: 0.76mg /dLhig h: 1.27mg /dL Creat inine 1.13 0.76 - 1.27 mg/dL 04/26 6:48 AM EST [employer] [facility] [employer] [facility] [employer] [facility] Not Available Not Available 09/01/2024 16:25:14 04/26/19 25 04/26/2024 Basic metab olic 1999 panel - Serum or Plasm a sodium [moles/volum e] in serum or plasma 140 mmol/ L low: 136mmo l/Lhig h: 145mmo l/L Sodiu m 140 136 - 145 mmol/ L 04/26 6:48 AM EST [employer] [facility] [email or web address] [facility] Not Available Not Available 09/01/2024 16:25:14 04/26/19 25 04/26/2024 Basic metab olic 1999 panel - Serum or Plasm a potassium [moles/volum e] in serum or plasma 4.3 mmol/ L low: 3.5mmo l/Lhig h: 5.2mmo l/L Potas sium 4.3 3.5 - 5.2 mmol/ L 04/26 6:48 AM EST [employer] [facility] [employer] [facility] Not Available Not Available 09/01/2024 16:25:14 04/26/19 25 04/26/2024 Basic metab olic 1999 panel - Serum or Plasm a chloride [moles/volum e] in serum or plasma 98 mmol/ L low: 98mmol /Lhigh : 107mmo l/L Chlor chava 98 98 - 107 mmol/ L 04/26 6:48 AM EST [facility] [employer] [facility] Not Available Not Available 09/01/2024 16:25:14 04/26/19 25 04/26/2024 Basic metab olic 1999 panel - Serum or Plasm a carbon dioxide, total [moles/volum e] in serum or plasma 34 mmol/ L low: 22mmol /Lhigh : 29mmol /L high CO2 34.0 (H) 22.0 - 29.0 mmol/ L 04/26 6:48 AM EST [employer] ATORY Not Available Not Available 09/01/2024 16:25:14 04/26/19 25 04/26/2024 Basic metab olic 2000 panel - Serum or Plasm a calcium [moles/volum e] in specimen 9.4 mg/dL low: 8.6mg/ dLhigh : 10.5mg /dL Calci um 9.4 8.6 - 10.5 mg/dL 04/26 6:48 AM [employer] ATORY Not Available Not Available 09/01/2024 16:25:14 04/26/19 25 04/26/2024 Basic metab olic 1999 panel - Serum or Plasm a urea nitrogen/cre atinine [mass ratio] in serum or plasma 31 low: 7high: 25 high BUN/C reati nine Ratio 31.0 (H) 7.0 - 25.0 04/26 6:48 AM [employer] ATORY Not Available Not Available 09/01/2024 16:25:14 04/26/19 25 04/26/2024 Basic metab olic 2000 panel - Serum or Plasm a anion gap in serum or plasma by calculated.3 ions 8 mmol/ L low: 5mmol/ Lhigh: 15mmol /L Anion Gap 8.0 5.0 - 15.0 mmol/ L 04/26 6:48 AM [employer] ATORY Not Available Not Available 09/01/2024 16:25:14 04/26/19 25 04/26/2024 Basic metab olic 2000 panel - Serum or Plasm a glomerular filtration rate [volume rate/area] in serum, plasma or blood by creatinine-b ased formula (CKD-epi 2020)/1.73 sq M 73.5 mL/mi n/1.7 3 low: 60mL/m in/1.7 3 eGFR 73.5 >60.0 mL/mi n/1.7 3 04/26 6:[address] Not Available Not Available 09/01/2024 16:25:14 04/26/19 25 04/26/2024 Basic metab olic 2000 panel - Serum or Plasm a Unknown Analyte GFR Catego kylee in Chroni c Kidney Diseas e (CKD) GFR Catego ry GFR (mL/mi n/1.73 ) Interp retati on G1 90 or greate r Normal or high (1) G2 60-89 Mild decrea se (1) G3a 45-59 Mild to modera te decrea se G3b 30-44 Modera te to severe decrea se G4 15-29 Severe decrea se G5 14 or less Kidney failur e (1)In the absenc e of eviden ce of kidney diseas e, neithe r GFR catego ry G1 or G2 fulfil l the criter ia for CKD. eGFR calcul ation 2020 CKD-EP I creati nine equati on, which does not includ e race as a factor GFR Categ ories in Chron ic Kidne y Disea se (CKD) GFR Categ ory GFR (mL/m in/1. 73) Inter preta tion G1 90 or great er Etta l or high (1) G2 60-89 Mild decre ase (1) G3a 45-59 Mild to moder ate decre ase G3b 30-44 Moder ate to sever e decre ase G4 15-29 Sever e decre ase G5 14 or less Kidne y failu re (1)In the absen ce of evide nce of kidne y disea se, neith er GFR categ ory G1 or G2 fulfi ll the crite bethany for CKD. eGFR calcu latio n 2020 CKD-E PI creat inine equat ion, which does not inclu de race as a facto r Not Available Not Available 09/01/2024 16:25:14 04/26/19 25 04/26/2024 Basic metab olic 2000 panel - Serum or Plasm a interpretati on and review of laboratory results Abnorm al Not Available Not Available 16:25:14 04/27/19 25 04/27/2024 Basic metab olic 2000 panel - Serum or Plasm a glucose [mass/volume ] in capillary blood by glucometer 194 mg/dL low: 70mg/d Lhigh: 130mg/ dL high Gluco se 194 (H) 70 - 130 mg/dL 04/27 9:39 PM EST [employer] [facility] [employer] Not Available Not Available 09/01/2024 16:25:15 04/27/19 25 04/27/2024 Basic metab olic 2000 panel - Serum or Plasm a interpretati on and review of laboratory results Abnorm al Not Available Not Available 16:25:15 04/27/19 25 04/27/2024 Basic metab olic 2000 panel - Serum or Plasm a glucose [mass/volume ] in capillary blood by glucometer 109 mg/dL low: 70mg/d Lhigh: 130mg/ dL Gluco se 109 70 - 130 mg/dL 04/27 4:[address] [employer] [facility] [email or web address] LAB[facility] AT[facility] Not Available Not Available 09/01/2024 16:25:15 04/27/19 25 04/27/2024 Basic metab olic 2000 panel - Serum or Plasm a interpretati on and review of laboratory results Normal Not Available Not Available 08/12 16:25:15 04/27/19 25 04/27/2024 Basic metab olic 2000 panel - Serum or Plasm a glucose [mass/volume ] in capillary blood by glucometer 214 mg/dL low: 70mg/d Lhigh: 130mg/ dL high Gluco se 214 (H) 70 - 130 mg/dL 04/27 10:[address] [employer] [facility] [employer] LABOR ATORY Not Available Not Available 09/01/2024 16:25:15 04/27/19 25 04/27/2024 Basic metab olic 2000 panel - Serum or Plasm a interpretati on and review of laboratory results Abnorm al Not Available Not Available 16:25:15 04/27/19 25 04/27/2024 Basic metab olic 2000 panel - Serum or Plasm a glucose [mass/volume ] in capillary blood by glucometer 127 mg/dL low: 70mg/d Lhigh: 130mg/ dL Gluco se 127 70 - 130 mg/dL 01/15 /2025 7:36 AM EST [employer] [facility] Not Available Not Available 09/01/2024 16:25:15 04/27/19 25 04/27/2024 Basic metab olic 2000 panel - Serum or Plasm a interpretati on and review of laboratory results Normal Not Available Not Available 08/12 16:25:15 04/28/19 25 04/28/2024 Basic metab olic 2000 panel - Serum or Plasm a glucose [mass/volume ] in capillary blood by glucometer 98 mg/dL low: 70mg/d Lhigh: 130mg/ dL Gluco se 98 70 - 130 mg/dL 04/28 7:49 PM EST [employer] [facility] [employer] [place] Not Available Not Available 09/01/2024 16:25:15 04/28/19 25 04/28/2024 Basic metab olic 2000 panel - Serum or Plasm a interpretati on and review of laboratory results Normal Not Available Not Available 08/12 16:25:15 04/28/19 25 04/28/2024 Basic metab olic 2000 panel - Serum or Plasm a glucose [mass/volume ] in capillary blood by glucometer 155 mg/dL low: 70mg/d Lhigh: 130mg/ dL high Gluco se 155 (H) 70 - 130 mg/dL 04/28 5:22 PM EST [employer] [place] Not Available Not Available 09/01/2024 16:25:15 04/28/19 25 04/28/2024 Basic metab olic 2000 panel - Serum or Plasm a interpretati on and review of laboratory results Abnorm al Not Available Not Available 16:25:15 04/28/19 25 04/28/2024 Basic metab olic 2000 panel - Serum or Plasm a glucose [mass/volume ] in capillary blood by glucometer 160 mg/dL low: 70mg/d Lhigh: 130mg/ dL high Gluco se 160 (H) 70 - 130 mg/dL 04/28 11:27 AM EST [facility] [employer] [facility] Not Available Not Available 09/01/2024 16:25:15 04/28/19 25 04/28/2024 Basic metab olic 2000 panel - Serum or Plasm a interpretati on and review of laboratory results Abnorm al Not Available Not Available 16:25:15 04/28/19 25 04/28/2024 Basic metab olic 2000 panel - Serum or Plasm a glucose [mass/volume ] in capillary blood by glucometer 171 mg/dL low: 70mg/d Lhigh: 130mg/ dL high Gluco se 171 (H) 70 - 130 mg/dL 04/28 7:[address] Not Available Not Available 09/01/2024 16:25:15 04/28/19 25 04/28/2024 Basic metab olic 2000 panel - Serum or Plasm a interpretati on and review of laboratory results Abnorm al Not Available Not Available 16:25:15 04/29/19 25 04/29/2024 Basic metab olic 2000 panel - Serum or Plasm a glucose [mass/volume ] in capillary blood by glucometer 142 mg/dL low: 70mg/d Lhigh: 130mg/ dL high Gluco se 142 (H) 70 - 130 mg/dL 04/29 8:[address] Not Available Not Available 09/01/2024 16:25:15 04/29/19 25 04/29/2024 Basic metab olic 2000 panel - Serum or Plasm a interpretati on and review of laboratory results Abnorm al Not Available Not Available 16:25:15 04/29/19 25 04/29/2024 Basic metab olic 2000 panel - Serum or Plasm a glucose [mass/volume ] in capillary blood by glucometer 108 mg/dL low: 70mg/d Lhigh: 130mg/ dL Gluco se 108 70 - 130 mg/dL 04/29 5:[address] [facility] Not Available Not Available 09/01/2024 16:25:15 04/29/19 25 04/29/2024 Basic metab olic 2000 panel - Serum or Plasm a interpretati on and review of laboratory results Normal Not Available Not Available 08/12 16:25:15 04/29/19 25 04/29/2024 Basic metab olic 2000 panel - Serum or Plasm a glucose [mass/volume ] in capillary blood by glucometer 171 mg/dL low: 70mg/d Lhigh: 130mg/ dL high Gluco se 171 (H) 70 - 130 mg/dL 04/29 11:04 AM EST [employer] LABOR ATORY Not Available Not Available 09/01/2024 16:25:15 04/29/19 25 04/29/2024 Basic metab olic 2000 panel - Serum or Plasm a interpretati on and review of laboratory results Abnorm al Not Available Not Available 16:25:15 04/29/19 25 04/29/2024 Basic metab olic 1999 panel - Serum or Plasm a glucose [mass/volume ] in capillary blood by glucometer 168 mg/dL low: 70mg/d Lhigh: 130mg/ dL high Gluco se 168 (H) 70 - 130 mg/dL 04/29 7:59 AM EST [employer] LABOR ATORY Not Available Not Available 09/01/2024 16:25:15 04/29/19 25 04/29/2024 Basic metab olic 2000 panel - Serum or Plasm a interpretati on and review of laboratory results Abnorm al Not Available Not Available 16:25:15 04/30/19 25 04/30/2024 Basic metab olic 2000 panel - Serum or Plasm a glucose [mass/volume ] in capillary blood by glucometer 156 mg/dL low: 70mg/d Lhigh: 130mg/ dL high Gluco se 156 (H) 70 - 130 mg/dL 04/30 7:48 PM EST [employer] LABOR ATORY Not Available Not Available 09/01/2024 16:25:16 04/30/19 25 04/30/2024 Basic metab olic 2000 panel - Serum or Plasm a interpretati on and review of laboratory results Abnorm al Not Available Not Available 16:25:16 04/30/19 25 04/30/2024 Potas sium [Mole s/vol ume] in Serum or Plasm a potassium [moles/volum e] in serum or plasma 4.3 mmol/ L low: 3.5mmo l/Lhig h: 5.2mmo l/L Potas sium 4.3 3.5 - 5.2 mmol/ L 04/30 5:51 PM EST [employer] [facility] [employer] Not Available Not Available 09/01/2024 16:25:15 04/30/19 25 04/30/2024 Potas sium [Mole s/vol ume] in Serum or Plasm a interpretati on and review of laboratory results Normal Not Available Not Available 08/12 16:25:15 04/30/19 25 04/30/2024 Basic metab olic 2000 panel - Serum or Plasm a glucose [mass/volume ] in capillary blood by glucometer 134 mg/dL low: 70mg/d Lhigh: 130mg/ dL high Gluco se 134 (H) 70 - 130 mg/dL 04/30 4:29 PM EST [facility] [employer] [facility] Not Available Not Available 09/01/2024 16:25:15 04/30/19 25 04/30/2024 Basic metab olic 2000 panel - Serum or Plasm a interpretati on and review of laboratory results Abnorm al Not Available Not Available 16:25:15 04/30/19 25 04/30/2024 Basic metab olic 2000 panel - Serum or Plasm a glucose [mass/volume ] in capillary blood by glucometer 125 mg/dL low: 70mg/d Lhigh: 130mg/ dL Gluco se 125 70 - 130 mg/dL 04/30 11:09 AM EST [employer] LAB[facility] AT[facility] Not Available Not Available 09/01/2024 16:25:15 04/30/19 25 04/30/2024 Basic metab olic 2000 panel - Serum or Plasm a interpretati on and review of laboratory results Normal Not Available Not Available 08/12 16:25:15 04/30/19 25 04/30/2024 CBC W Diffe renti al panel , metho d unspe cifie d - Blood leukocytes [#/volume] corrected for nucleated erythrocytes in blood by automated count 9.64 10*3/ mm3 low: 3.410* 3/mm3h igh: 10.810 *3/mm3 WBC 9.64 3.40 - 10.80 10*3/ mm3 04/30 9:26 AM [employer] ATORY Not Available Not Available 09/01/2024 16:25:15 04/30/19 25 04/30/2024 CBC W Diffe renti al panel , metho d unspe cifie d - Blood erythrocytes [#/volume] in blood by automated count 5.6 10*6/ mm3 low: 4.1410 *6/mm3 high: 5.810* 6/mm3 RBC 5.60 4.14 - 5.80 10*6/ mm3 04/30 9:26 AM [employer] ATORY Not Available Not Available 09/01/2024 16:25:15 04/30/19 25 04/30/2024 CBC W Anthony rodriguezti al panel , metho d unspe cifie d - Blood hemoglobin [mass/volume ] in blood 13.4 g/dL low: 13g/dL high: 17.7g/ dL Hemog lobin 13.4 13.0 - 17.7 g/dL 04/30 9:26 AM [employer] ATORY Not Available Not Available 09/01/2024 16:25:15 04/30/19 25 04/30/2024 CBC W Anthony rodriguezti al panel , metho d unspe cifie d - Blood hematocrit [volume fraction] of blood by automated count 44.1 % low: 37.5%h igh: 51% Hemat ocrit 44.1 37.5 - 51.0 % 04/30 9:26 AM [employer] ATORY Not Available Not Available 09/01/2024 16:25:15 04/30/19 25 04/30/2024 CBC W Diffe renti al panel , metho d unspe cifie d - Blood MCV [entitic mean volume] in red blood cells by automated count 78.8 fL low: 79fLhi gh: 97fL low MCV 78.8 (L) 79.0 - 97.0 fL 04/30 9:26 AM [employer] LAB[facility] AT[facility] Not Available Not Available 09/01/2024 16:25:15 04/30/19 25 04/30/2024 CBC W Diffe renti al panel , metho d unspe cifie d - Blood MCH [entitic mass] by automated count 23.9 pg low: 26.6pg high: 33pg low MCH 23.9 (L) 26.6 - 33.0 pg 04/30 9:26 AM EST [facility] [facility] [facility] Not Available Not Available 09/01/2024 16:25:15 04/30/19 25 04/30/2024 CBC W Diffe renti al panel , metho d unspe cifie d - Blood MCHC [entitic mass/volume] in red blood cells by automated count 30.4 g/dL low: 31.5g/ dLhigh : 35.7g/ dL low MCHC 30.4 (L) 31.5 - 35.7 g/dL 04/30 9:26 AM [facility] [facility] Not Available Not Available 09/01/2024 16:25:15 04/30/19 25 04/30/2024 CBC W Diffe renti al panel , metho d unspe cifie d - Blood erythrocyte [distwidth] in red blood cells by automated count 19.9 % low: 12.3%h igh: 15.4% high RDW 19.9 (H) 12.3 - 15.4 % 04/30 9:26 AM [facility] [facility] Not Available Not Available 09/01/2024 16:25:15 04/30/19 25 04/30/2024 CBC W Diffe renti al panel , metho d unspe cifie d - Blood RDW-SD 54.4 fL low: 37fLhi gh: 54fL high RDW-S D 54.4 (H) 37.0 - 54.0 fl 04/30 9:26 AM EST [facility] [facility] Not Available Not Available 09/01/2024 16:25:15 04/30/19 25 04/30/2024 CBC W Diffe renti al panel , metho d unspe cifie d - Blood platelet [entitic mean volume] in blood by automated count 9.3 fL low: 6fLhig h: 12fL MPV 9.3 6.0 - 12.0 fL 04/30 9:26 AM [employer] ATORY Not Available Not Available 09/01/2024 16:25:15 04/30/19 25 04/30/2024 CBC W Anthony kumar al panel , metho d unspe cifie d - Blood platelets [#/volume] in blood by automated count 232 10*3/ mm3 low: 02873* 3/mm3h igh: 12142* 3/mm3 Plate lets 232 140 - 450 10*3/ mm3 04/30 9:26 AM [employer] ATORY Not Available Not Available 09/01/2024 16:25:15 04/30/19 25 04/30/2024 CBC W Anthony kumar al panel , metho d unspe cifie d - Blood neutrophils/ leukocytes in blood by automated count 63.4 % low: 42.7%h igh: 76% Neutr ophil % 63.4 42.7 - 76.0 % 04/30 9:26 AM [employer] ATORY Not Available Not Available 09/01/2024 16:25:15 04/30/19 25 04/30/2024 CBC W Anthony kumar al panel , metho d unspe cifie d - Blood lymphocytes/ leukocytes in blood by automated count 25 % low: 19.6%h igh: 45.3% Lymph ocyte % 25.0 19.6 - 45.3 % 04/30 9:26 AM [facility] LAB[facility] AT[facility] Not Available Not Available 09/01/2024 16:25:15 04/30/19 25 04/30/2024 CBC W Anthony kumar al panel , metho d unspe cifie d - Blood monocytes/le ukocytes in blood by automated count 6.8 % low: 5%high : 12% Monoc yte % 6.8 5.0 - 12.0 % 04/30 9:[address] [facility] Not Available Not Available 09/01/2024 16:25:15 04/30/19 25 04/30/2024 CBC W Diffe renti al panel , metho d unspe cifie d - Blood eosinophils/ leukocytes in blood by automated count 4.1 % low: 0.3%hi gh: 6.2% Eosin ophil % 4.1 0.3 - 6.2 % 04/30 9:[address] Not Available Not Available 09/01/2024 16:25:15 04/30/19 25 04/30/2024 CBC W Diffe renti al panel , metho d unspe cifie d - Blood basophils/le ukocytes in blood by automated count 0.5 % low: 0%high : 1.5% Basop hil % 0.5 0.0 - 1.5 % 04/30 9:[address] Not Available Not Available 09/01/2024 16:25:15 04/30/19 25 04/30/2024 CBC W Diffe renti al panel , metho d unspe cifie d - Blood immature granulocytes /leukocytes in blood by automated count 0.2 % low: 0%high : 0.5% Immat ure Grans % 0.2 0.0 - 0.5 % 04/30 9:[address] Not Available Not Available 09/01/2024 16:25:15 04/30/19 25 04/30/2024 CBC W Diffe renti al panel , metho d unspe cifie d - Blood neutrophils/ leukocytes in blood by automated count 6.1 10*3/ mm3 low: 1.710* 3/mm3h igh: 710*3/ mm3 Neutr ophil s, Absol naknek 6.10 1.70 - 7.00 10*3/ mm3 04/30 9:[address] [address] [facility] Not Available Not Available 09/01/2024 16:25:15 04/30/19 25 04/30/2024 CBC W Diffe renti al panel , metho d unspe cifie d - Blood lymphocytes [#/volume] in blood by automated count 2.41 10*3/ mm3 low: 0.710* 3/mm3h igh: 3.110* 3/mm3 Lymph ocyte s, Absol naknek 2.41 0.70 - 3.10 10*3/ mm3 04/30 9:26 AM EST [employer] [facility] AT[facility] Not Available Not Available 09/01/2024 16:25:15 04/30/19 25 04/30/2024 CBC W Diffe renti al panel , metho d unspe cifie d - Blood monocytes [#/volume] in blood by automated count 0.66 10*3/ mm3 low: 0.110* 3/mm3h igh: 0.910* 3/mm3 Monoc ytes, Absol naknek 0.66 0.10 - 0.90 10*3/ mm3 04/30 9:26 AM EST [employer] [facility] AT[facility] Not Available Not Available 09/01/2024 16:25:15 04/30/19 25 04/30/2024 CBC W Diffe renti al panel , metho d unspe cifie d - Blood eosinophils [#/volume] in blood by automated count 0.4 10*3/ mm3 low: 010*3/ mm3hig h: 0.410* 3/mm3 Eosin ophil s, Absol naknek 0.40 0.00 - 0.40 10*3/ mm3 04/30 9:26 AM EST [employer] ATORY Not Available Not Available 09/01/2024 16:25:15 04/30/19 25 04/30/2024 CBC W Diffe renti al panel , metho d unspe cifie d - Blood basophils [#/volume] in blood by automated count 0.05 10*3/ mm3 low: 010*3/ mm3hig h: 0.210* 3/mm3 Basop hils, Absol naknek 0.05 0.00 - 0.20 10*3/ mm3 04/30 9:26 AM EST [employer] [facility] Not Available Not Available 09/01/2024 16:25:15 04/30/19 25 04/30/2024 CBC W Diffe renti al panel , metho d unspe cifie d - Blood immature granulocytes [#/volume] in blood by automated count 0.02 10*3/ mm3 low: 010*3/ mm3hig h: 0.0510 *3/mm3 Immat ure Grans , Absol naknek 0.02 0.00 - 0.05 10*3/ mm3 04/30 9:26 AM EST [email or web address] LAB[facility] ATORY Not Available Not Available 09/01/2024 16:25:15 04/30/19 25 04/30/2024 CBC W Diffe renti al panel , metho d unspe cifie d - Blood nucleated erythrocytes /leukocytes [ratio] in blood by automated count 0 text: 0.0 - 0.2 /100 WBC nRBC 0.0 0.0 - 0.2 /100 WBC 04/30 9:26 AM EST [employer] [facility] AT[facility] Not Available Not Available 09/01/2024 16:25:15 04/30/19 25 04/30/2024 CBC W Diffe renti al panel , metho d unspe cifie d - Blood interpretati on and review of laboratory results Abnorm al Not Available Not Available 16:25:15 04/30/19 25 04/30/2024 Magne sium Ioniz ed [Mass /volu me] in Serum or Plasm a magnesium [mass/volume ] in serum or plasma 2.3 mg/dL low: 1.6mg/ dLhigh : 2.4mg/ dL Magne sium 2.3 1.6 - 2.4 mg/dL 04/30 9:[address] [employer] [facility] [employer] [facility] Not Available Not Available 09/01/2024 16:25:15 04/30/19 25 04/30/2024 Magne sium Ioniz ed [Mass /volu me] in Serum or Plasm a interpretati on and review of laboratory results Normal Not Available Not Available 08/12 16:25:15 04/30/19 25 04/30/2024 Basic metab olic 2000 panel - Serum or Plasm a glucose [mass/volume ] in capillary blood by glucometer 131 mg/dL low: 70mg/d Lhigh: 130mg/ dL high Gluco se 131 (H) 70 - 130 mg/dL 04/30 7:08 AM EST [employer] [facility] [employer] [facility] Not Available Not Available 09/01/2024 16:25:15 04/30/19 25 04/30/2024 Basic metab olic 2000 panel - Serum or Plasm a interpretati on and review of laboratory results Abnorm al Not Available Not Available 16:25:15 05/01/19 25 05/01/2024 Basic metab olic 2000 panel - Serum or Plasm a glucose [mass/volume ] in capillary blood by glucometer 166 mg/dL low: 70mg/d Lhigh: 130mg/ dL high Gluco se 166 (H) 70 - 130 mg/dL 05/01 8:36 PM EST [facility] [facility] [employer] [facility] Not Available Not Available 09/01/2024 16:25:16 05/01/19 25 05/01/2024 Basic metab olic 2000 panel - Serum or Plasm a interpretati on and review of laboratory results Abnorm al Not Available Not Available 16:25:16 05/01/19 25 05/01/2024 Basic metab olic 2000 panel - Serum or Plasm a glucose [mass/volume ] in capillary blood by glucometer 146 mg/dL low: 70mg/d Lhigh: 130mg/ dL high Gluco se 146 (H) 70 - 130 mg/dL 05/01 4:58 PM EST [facility] [employer] [facility] [employer] [facility] Not Available Not Available 09/01/2024 16:25:16 05/01/19 25 05/01/2024 Basic metab olic 2000 panel - Serum or Plasm a interpretati on and review of laboratory results Abnorm al Not Available Not Available 16:25:16 05/01/19 25 05/01/2024 Basic metab olic 2000 panel - Serum or Plasm a glucose [mass/volume ] in capillary blood by glucometer 165 mg/dL low: 70mg/d Lhigh: 130mg/ dL high Gluco se 165 (H) 70 - 130 mg/dL 05/01 11:34 AM EST [employer] [facility] Not Available Not Available 09/01/2024 16:25:16 05/01/19 25 05/01/2024 Basic metab olic 2000 panel - Serum or Plasm a interpretati on and review of laboratory results Abnorm al Not Available Not Available 16:25:16 05/01/19 25 05/01/2024 Basic metab olic 2000 panel - Serum or Plasm a glucose [mass/volume ] in capillary blood by glucometer 199 mg/dL low: 70mg/d Lhigh: 130mg/ dL high Gluco se 199 (H) 70 - 130 mg/dL 05/01 7:22 AM EST [facility] Not Available Not Available 09/01/2024 16:25:16 05/01/19 25 05/01/2024 Basic metab olic 2000 panel - Serum or Plasm a interpretati on and review of laboratory results Abnorm al Not Available Not Available 16:25:16 05/02/19 25 05/02/2024 Basic metab olic 2000 panel - Serum or Plasm a glucose [mass/volume ] in capillary blood by glucometer 213 mg/dL low: 70mg/d Lhigh: 130mg/ dL high Gluco se 213 (H) 70 - 130 mg/dL 05/02 9:26 PM EST [facility] [employer] [facility] [employer] [facility] Not Available Not Available 09/01/2024 16:25:16 05/02/19 25 05/02/2024 Basic metab olic 2000 panel - Serum or Plasm a interpretati on and review of laboratory results Abnorm al Not Available Not Available 16:25:16 05/02/19 25 05/02/2024 Basic metab olic 2000 panel - Serum or Plasm a glucose [mass/volume ] in capillary blood by glucometer 71 mg/dL low: 70mg/d Lhigh: 130mg/ dL Gluco se 71 70 - 130 mg/dL 05/02 8:34 PM EST [facility] Not Available Not Available 09/01/2024 16:25:16 05/02/19 25 05/02/2024 Basic metab olic 2000 panel - Serum or Plasm a interpretati on and review of laboratory results Normal Not Available Not Available 08/12 16:25:16 05/02/19 25 05/02/2024 Basic metab olic 2000 panel - Serum or Plasm a glucose [mass/volume ] in capillary blood by glucometer 126 mg/dL low: 70mg/d Lhigh: 130mg/ dL Gluco se 126 70 - 130 mg/dL 05/02 4:[address] [facility] [employer] [facility] Not Available Not Available 09/01/2024 16:25:16 05/02/19 25 05/02/2024 Basic metab olic 2000 panel - Serum or Plasm a interpretati on and review of laboratory results Normal Not Available Not Available 08/12 16:25:16 05/02/19 25 05/02/2024 Basic metab olic 2000 panel - Serum or Plasm a glucose [mass/volume ] in capillary blood by glucometer 269 mg/dL low: 70mg/d Lhigh: 130mg/ dL high Gluco se 269 (H) 70 - 130 mg/dL 05/02 12:21 PM EST [employer] [facility] [employer] [employer] [facility] AT[facility] Not Available Not Available 09/01/2024 16:25:16 05/02/19 25 05/02/2024 Basic metab olic 2000 panel - Serum or Plasm a interpretati on and review of laboratory results Abnorm al Not Available Not Available 16:25:16 05/02/19 25 05/02/2024 Basic metab olic 2000 panel - Serum or Plasm a glucose [mass/volume ] in capillary blood by glucometer 152 mg/dL low: 70mg/d Lhigh: 130mg/ dL high Gluco se 152 (H) 70 - 130 mg/dL 05/02 7:42 AM EST [employer] [facility] [employer] [facility] [employer] Not Available Not Available 09/01/2024 16:25:16 05/02/19 25 05/02/2024 Basic metab olic 2000 panel - Serum or Plasm a interpretati on and review of laboratory results Abnorm al Not Available Not Available 16:25:16 05/02/19 25 05/02/2024 CBC W Diffe renti al panel , metho d unspe cifie d - Blood leukocytes [#/volume] corrected for nucleated erythrocytes in blood by automated count 9.3 10*3/ mm3 low: 3.410* 3/mm3h igh: 10.810 *3/mm3 WBC 9.30 3.40 - 10.80 10*3/ mm3 05/02 6:05 AM EST [employer] [facility] Not Available Not Available 09/01/2024 16:25:16 05/02/19 25 05/02/2024 CBC W Diffe renti al panel , metho d unspe cifie d - Blood erythrocytes [#/volume] in blood by automated count 5.65 10*6/ mm3 low: 4.1410 *6/mm3 high: 5.810* 6/mm3 RBC 5.65 4.14 - 5.80 10*6/ mm3 05/02 6:05 AM EST [employer] [facility] Not Available Not Available 09/01/2024 16:25:16 05/02/19 25 05/02/2024 CBC W Diffe renti al panel , metho d unspe cifie d - Blood hemoglobin [mass/volume ] in blood 13.4 g/dL low: 13g/dL high: 17.7g/ dL Hemog lobin 13.4 13.0 - 17.7 g/dL 05/02 6:05 AM EST [employer] [facility] Not Available Not Available 09/01/2024 16:25:16 05/02/19 25 05/02/2024 CBC W Diffe renti al panel , metho d unspe cifie d - Blood hematocrit [volume fraction] of blood by automated count 44.4 % low: 37.5%h igh: 51% Hemat ocrit 44.4 37.5 - 51.0 % 05/02 6:05 AM EST [employer] Not Available Not Available 09/01/2024 16:25:16 05/02/19 25 05/02/2024 CBC W Diffe renti al panel , metho d unspe cifie d - Blood MCV [entitic mean volume] in red blood cells by automated count 78.6 fL low: 79fLhi gh: 97fL low MCV 78.6 (L) 79.0 - 97.0 fL 05/02 6:05 AM [facility] Not Available Not Available 09/01/2024 16:25:16 05/02/19 25 05/02/2024 CBC W Diffe renti al panel , metho d unspe cifie d - Blood MCH [entitic mass] by automated count 23.7 pg low: 26.6pg high: 33pg low MCH 23.7 (L) 26.6 - 33.0 pg 05/02 6:05 AM [employer] AT[facility] Not Available Not Available 09/01/2024 16:25:16 05/02/19 25 05/02/2024 CBC W Diffe renti al panel , metho d unspe cifie d - Blood MCHC [entitic mass/volume] in red blood cells by automated count 30.2 g/dL low: 31.5g/ dLhigh : 35.7g/ dL low MCHC 30.2 (L) 31.5 - 35.7 g/dL 05/02 6:05 AM [facility] Not Available Not Available 09/01/2024 16:25:16 05/02/19 25 05/02/2024 CBC W Diffe renti al panel , metho d unspe cifie d - Blood erythrocyte [distwidth] in red blood cells by automated count 19.8 % low: 12.3%h igh: 15.4% high RDW 19.8 (H) 12.3 - 15.4 % 05/02 6:05 AM [employer] AT[facility] Not Available Not Available 09/01/2024 16:25:16 05/02/19 25 05/02/2024 CBC W Diffe renti al panel , metho d unspe cifie d - Blood RDW-SD 53.8 fL low: 37fLhi gh: 54fL RDW-S D 53.8 37.0 - 54.0 fl 05/02 6:05 AM [facility] Not Available Not Available 09/01/2024 16:25:16 05/02/19 25 05/02/2024 CBC W Diffe renti al panel , metho d unspe cifie d - Blood platelet [entitic mean volume] in blood by automated count 9.4 fL low: 6fLhig h: 12fL MPV 9.4 6.0 - 12.0 fL 05/02 6:05 AM [facility] Not Available Not Available 09/01/2024 16:25:16 05/02/19 25 05/02/2024 CBC W Diffe michaelti al panel , metho d unspe cifie d - Blood platelets [#/volume] in blood by automated count 245 10*3/ mm3 low: 40207* 3/mm3h igh: 87113* 3/mm3 Plate lets 245 140 - 450 10*3/ mm3 05/02 6:05 AM [facility] Not Available Not Available 09/01/2024 16:25:16 05/02/19 25 05/02/2024 CBC W Diffe michaelti al panel , metho d unspe cifie d - Blood neutrophils/ leukocytes in blood by automated count 61 % low: 42.7%h igh: 76% Neutr ophil % 61.0 42.7 - 76.0 % 05/02 6:05 AM [facility] Not Available Not Available 09/01/2024 16:25:16 05/02/19 25 05/02/2024 CBC W Diffe renti al panel , metho d unspe cifie d - Blood lymphocytes/ leukocytes in blood by automated count 26.2 % low: 19.6%h igh: 45.3% Lymph ocyte % 26.2 19.6 - 45.3 % 05/02 6:[address] Not Available Not Available 09/01/2024 16:25:16 05/02/19 25 05/02/2024 CBC W Diffe renti al panel , metho d unspe cifie d - Blood monocytes/le ukocytes in blood by automated count 7 % low: 5%high : 12% Monoc yte % 7.0 5.0 - 12.0 % 05/02 6:05 AM EST [employer] [facility] Not Available Not Available 09/01/2024 16:25:16 05/02/19 25 05/02/2024 CBC W Diffe renti al panel , metho d unspe cifie d - Blood eosinophils/ leukocytes in blood by automated count 4.7 % low: 0.3%hi gh: 6.2% Eosin ophil % 4.7 0.3 - 6.2 % 05/02 6:05 AM EST [employer] [facility] Not Available Not Available 09/01/2024 16:25:16 05/02/19 25 05/02/2024 CBC W Diffe renti al panel , metho d unspe cifie d - Blood basophils/le ukocytes in blood by automated count 0.8 % low: 0%high : 1.5% Basop hil % 0.8 0.0 - 1.5 % 05/02 6:05 AM EST [employer] [facility] Not Available Not Available 09/01/2024 16:25:16 05/02/19 25 05/02/2024 CBC W Diffe renti al panel , metho d unspe cifie d - Blood immature granulocytes /leukocytes in blood by automated count 0.3 % low: 0%high : 0.5% Immat ure Grans % 0.3 0.0 - 0.5 % 05/02 6:05 AM EST [employer] [facility] Not Available Not Available 09/01/2024 16:25:16 05/02/19 25 05/02/2024 CBC W Diffe renti al panel , metho d unspe cifie d - Blood neutrophils/ leukocytes in blood by automated count 5.67 10*3/ mm3 low: 1.710* 3/mm3h igh: 710*3/ mm3 Neutr ophil s, Absol naknek 5.67 1.70 - 7.00 10*3/ mm3 05/02 6:05 AM EST [employer] [facility] Not Available Not Available 09/01/2024 16:25:16 05/02/19 25 05/02/2024 CBC W Diffe renti al panel , metho d unspe cifie d - Blood lymphocytes [#/volume] in blood by automated count 2.44 10*3/ mm3 low: 0.710* 3/mm3h igh: 3.110* 3/mm3 Lymph ocyte s, Absol n[place] 2.44 0.70 - 3.10 10*3/ mm3 05/02 6:05 AM EST [employer] [facility] Not Available Not Available 09/01/2024 16:25:16 05/02/19 25 05/02/2024 CBC W Diffe renti al panel , metho d unspe cifie d - Blood monocytes [#/volume] in blood by automated count 0.65 10*3/ mm3 low: 0.110* 3/mm3h igh: 0.910* 3/mm3 Monoc ytes, Absol n[place] 0.65 0.10 - 0.90 10*3/ mm3 05/02 6:05 AM EST [employer] [facility] Not Available Not Available 09/01/2024 16:25:16 05/02/19 25 05/02/2024 CBC W Diffe renti al panel , metho d unspe cifie d - Blood eosinophils [#/volume] in blood by automated count 0.44 10*3/ mm3 low: 010*3/ mm3hig h: 0.410* 3/mm3 high Eosin ophil s, Absol naknek 0.44 (H) 0.00 - 0.40 10*3/ mm3 05/02 6:05 AM [employer] AT[facility] Not Available Not Available 09/01/2024 16:25:16 05/02/19 25 05/02/2024 CBC W Diffe renti al panel , metho d unspe cifie d - Blood basophils [#/volume] in blood by automated count 0.07 10*3/ mm3 low: 010*3/ mm3hig h: 0.210* 3/mm3 Basop hils, Absol naknek 0.07 0.00 - 0.20 10*3/ mm3 05/02 6:05 AM EST [employer] [facility] [employer] Not Available Not Available 09/01/2024 16:25:16 05/02/19 25 05/02/2024 CBC W Diffe renti al panel , metho d unspe cifie d - Blood immature granulocytes [#/volume] in blood by automated count 0.03 10*3/ mm3 low: 010*3/ mm3hig h: 0.0510 *3/mm3 Immat ure Grans , Absol naknek 0.03 0.00 - 0.05 10*3/ mm3 05/02 6:05 AM EST [facility] Not Available Not Available 09/01/2024 16:25:16 05/02/19 25 05/02/2024 CBC W Diffe renti al panel , metho d unspe cifie d - Blood nucleated erythrocytes /leukocytes [ratio] in blood by automated count 0 text: 0.0 - 0.2 /100 WBC nRBC 0.0 0.0 - 0.2 /100 WBC 05/02 6:05 AM EST [facility] [employer] [facility] Not Available Not Available 09/01/2024 16:25:16 05/02/19 25 05/02/2024 CBC W Diffe renti al panel , metho d unspe cifie d - Blood interpretati on and review of laboratory results Abnorm al Not Available Not Available 16:25:16 05/02/19 25 05/02/2024 Magne sium Ioniz ed [Mass /volu me] in Serum or Plasm a magnesium [mass/volume ] in serum or plasma 2.3 mg/dL low: 1.6mg/ dLhigh : 2.4mg/ dL Magne sium 2.3 1.6 - 2.4 mg/dL 05/02 6:[address] [facility] [employer] [facility] Not Available Not Available 09/01/2024 16:25:16 05/02/19 25 05/02/2024 Magne sium Ioniz ed [Mass /volu me] in Serum or Plasm a interpretati on and review of laboratory results Normal Not Available Not Available 08/12 16:25:16 05/02/19 25 05/02/2024 Basic metab olic 2000 panel - Serum or Plasm a glucose [mass/volume ] in serum or plasma 143 mg/dL low: 65mg/d Lhigh: 99mg/d L high Gluco se 143 (H) 65 - 99 mg/dL 05/02 6:30 AM EST [employer] [facility] [employer] Not Available Not Available 09/01/2024 16:25:16 05/02/19 25 05/02/2024 Basic metab olic 2000 panel - Serum or Plasm a urea nitrogen [mass/volume ] in serum or plasma 30 mg/dL low: 8mg/dL high: 23mg/d L high BUN 30 (H) 8 - 23 mg/dL 05/02 6:30 AM EST [employer] [facility] Not Available Not Available 09/01/2024 16:25:16 05/02/19 25 05/02/2024 Basic metab olic 2000 panel - Serum or Plasm a creatinine [mass/volume ] in serum or plasma 1.15 mg/dL low: 0.76mg /dLhig h: 1.27mg /dL Creat inine 1.15 0.76 - 1.27 mg/dL 05/02 6:30 AM EST [employer] [facility] [employer] Not Available Not Available 09/01/2024 16:25:16 05/02/19 25 05/02/2024 Basic metab olic 2000 panel - Serum or Plasm a sodium [moles/volum e] in serum or plasma 142 mmol/ L low: 136mmo l/Lhig h: 145mmo l/L Sodiu m 142 136 - 145 mmol/ L 05/02 6:30 AM EST [employer] [facility] [employer] Not Available Not Available 09/01/2024 16:25:16 05/02/19 25 05/02/2024 Basic metab olic 1999 panel - Serum or Plasm a potassium [moles/volum e] in serum or plasma 4.9 mmol/ L low: 3.5mmo l/Lhig h: 5.2mmo l/L Potas sium 4.9 3.5 - 5.2 mmol/ L 05/02 6:30 AM EST [employer] [facility] Not Available Not Available 09/01/2024 16:25:16 05/02/19 25 05/02/2024 Basic metab olic 1999 panel - Serum or Plasm a chloride [moles/volum e] in serum or plasma 98 mmol/ L low: 98mmol /Lhigh : 107mmo l/L Chlor chava 98 98 - 107 mmol/ L 05/02 6:30 AM EST [employer] [facility] Not Available Not Available 09/01/2024 16:25:16 05/02/19 25 05/02/2024 Basic metab olic 1999 panel - Serum or Plasm a carbon dioxide, total [moles/volum e] in serum or plasma 34 mmol/ L low: 22mmol /Lhigh : 29mmol /L high CO2 34.0 (H) 22.0 - 29.0 mmol/ L 05/02 6:30 AM EST [employer] [facility] Not Available Not Available 09/01/2024 16:25:16 05/02/19 25 05/02/2024 Basic metab olic 1999 panel - Serum or Plasm a calcium [moles/volum e] in specimen 9.1 mg/dL low: 8.6mg/ dLhigh : 10.5mg /dL Calci um 9.1 8.6 - 10.5 mg/dL 05/02 6:30 AM EST [employer] [facility] Not Available Not Available 09/01/2024 16:25:16 05/02/19 25 05/02/2024 Basic metab olic 2000 panel - Serum or Plasm a urea nitrogen/cre atinine [mass ratio] in serum or plasma 26.1 low: 7high: 25 high BUN/C reati nine Ratio 26.1 (H) 7.0 - 25.0 05/02 6:30 AM EST [facility] Not Available Not Available 09/01/2024 16:25:16 05/02/19 25 05/02/2024 Basic metab olic 2000 panel - Serum or Plasm a anion gap in serum or plasma by calculated.3 ions 10 mmol/ L low: 5mmol/ Lhigh: 15mmol /L Anion Gap 10.0 5.0 - 15.0 mmol/ L 05/02 6:30 AM EST [employer] [facility] [employer] [facility] [email or web address] [facility] Not Available Not Available 09/01/2024 16:25:16 05/02/19 25 05/02/2024 Basic metab olic 1999 panel - Serum or Plasm a glomerular filtration rate [volume rate/area] in serum, plasma or blood by creatinine-b ased formula (CKD-epi 2020)/1.73 sq M 72 mL/mi n/1.7 3 low: 60mL/m in/1.7 3 eGFR 72.0 >60.0 mL/mi n/1.7 3 05/02 6:30 AM EST [employer] [facility] Not Available Not Available 09/01/2024 16:25:16 05/02/19 25 05/02/2024 Basic metab olic 2000 panel - Serum or Plasm a Unknown Analyte GFR Catego kylee in Chroni c Kidney Diseas e (CKD) GFR Catego ry GFR (mL/mi n/1.73 ) Interp retati on G1 90 or greate r Normal or high (1) G2 60-89 Mild decrea se (1) G3a 45-59 Mild to modera te decrea se G3b 30-44 Modera te to severe decrea se G4 15-29 Severe decrea se G5 14 or less Kidney failur e (1)In the absenc e of eviden ce of kidney diseas e, neithe r GFR catego ry G1 or G2 fulfil l the criter ia for CKD. eGFR calcul ation 2020 CKD-EP I creati nine equati on, which does not includ e race as a factor GFR Categ ories in Chron ic Kidne y Disea se (CKD) GFR Categ ory GFR (mL/m in/1. 73) Inter preta tion G1 90 or great er Etta l or high (1) G2 60-89 Mild decre ase (1) G3a 45-59 Mild to moder ate decre ase G3b 30-44 Moder ate to sever e decre ase G4 15-29 Sever e decre ase G5 14 or less Kidne y failu re (1)In the absen ce of evide nce of kidne y disea se, neith er GFR categ ory G1 or G2 fulfi ll the crite [place] for CKD. eGFR calcu latio n 2020 CKD-E PI creat inine equat ion, which does not inclu de race as a facto r Not Available Not Available 09/01/2024 16:25:16 05/02/19 25 05/02/2024 Basic metab olic 2000 panel - Serum or Plasm a interpretati on and review of laboratory results Abnorm al Not Available Not Available 16:25:16 05/03/19 25 05/03/2024 Basic metab olic 2000 panel - Serum or Plasm a glucose [mass/volume ] in capillary blood by glucometer 202 mg/dL low: 70mg/d Lhigh: 130mg/ dL high Gluco se 202 (H) 70 - 130 mg/dL 05/03 8:[address] Not Available Not Available 09/01/2024 16:25:16 05/03/19 25 05/03/2024 Basic metab olic 2000 panel - Serum or Plasm a interpretati on and review of laboratory results Abnorm al Not Available Not Available 16:25:16 05/03/19 25 05/03/2024 Basic metab olic 2000 panel - Serum or Plasm a glucose [mass/volume ] in capillary blood by glucometer 89 mg/dL low: 70mg/d Lhigh: 130mg/ dL Gluco se 89 70 - 130 mg/dL 05/03 5:[address] Not Available Not Available 09/01/2024 16:25:16 05/03/19 25 05/03/2024 Basic metab olic 2000 panel - Serum or Plasm a interpretati on and review of laboratory results Normal Not Available Not Available 08/12 16:25:16 05/03/19 25 05/03/2024 Basic metab olic 2000 panel - Serum or Plasm a glucose [mass/volume ] in capillary blood by glucometer 191 mg/dL low: 70mg/d Lhigh: 130mg/ dL high Gluco se 191 (H) 70 - 130 mg/dL 05/03 11:[address] Not Available Not Available 09/01/2024 16:25:16 05/03/19 25 05/03/2024 Basic metab olic 2000 panel - Serum or Plasm a interpretati on and review of laboratory results Abnorm al Not Available Not Available 16:25:16 05/03/19 25 05/03/2024 Basic metab olic 2000 panel - Serum or Plasm a glucose [mass/volume ] in capillary blood by glucometer 198 mg/dL low: 70mg/d Lhigh: 130mg/ dL high Gluco se 198 (H) 70 - 130 mg/dL 05/03 7:[address] Not Available Not Available 09/01/2024 16:25:16 05/03/19 25 05/03/2024 Basic metab olic 2000 panel - Serum or Plasm a interpretati on and review of laboratory results Abnorm al Not Available Not Available 16:25:16 05/04/19 25 05/04/2024 Basic metab olic 2000 panel - Serum or Plasm a glucose [mass/volume ] in capillary blood by glucometer 136 mg/dL low: 70mg/d Lhigh: 130mg/ dL high Gluco se 136 (H) 70 - 130 mg/dL 05/04 8:[address] Not Available Not Available 09/01/2024 16:25:17 05/04/19 25 05/04/2024 Basic metab olic 2000 panel - Serum or Plasm a interpretati on and review of laboratory results Abnorm al Not Available Not Available 16:25:17 05/04/19 25 05/04/2024 Basic metab olic 2000 panel - Serum or Plasm a glucose [mass/volume ] in capillary blood by glucometer 169 mg/dL low: 70mg/d Lhigh: 130mg/ dL high Gluco se 169 (H) 70 - 130 mg/dL 05/04 5:05 PM EST [facility] [employer] Not Available Not Available 09/01/2024 16:25:17 05/04/19 25 05/04/2024 Basic metab olic 2000 panel - Serum or Plasm a interpretati on and review of laboratory results Abnorm al Not Available Not Available 16:25:17 05/04/19 25 05/04/2024 Basic metab olic 2000 panel - Serum or Plasm a glucose [mass/volume ] in capillary blood by glucometer 245 mg/dL low: 70mg/d Lhigh: 130mg/ dL high Gluco se 245 (H) 70 - 130 mg/dL 05/04 12:03 PM EST [facility] Not Available Not Available 09/01/2024 16:25:16 05/04/19 25 05/04/2024 Basic metab olic 2000 panel - Serum or Plasm a interpretati on and review of laboratory results Abnorm al Not Available Not Available 16:25:16 05/04/19 25 05/04/2024 Basic metab olic 2000 panel - Serum or Plasm a glucose [mass/volume ] in capillary blood by glucometer 143 mg/dL low: 70mg/d Lhigh: 130mg/ dL high Gluco se 143 (H) 70 - 130 mg/dL 05/04 8:18 AM [employer] [facility] Not Available Not Available 09/01/2024 16:25:16 05/04/19 25 05/04/2024 Basic metab olic 2000 panel - Serum or Plasm a interpretati on and review of laboratory results Abnorm al Not Available Not Available 16:25:16 05/05/19 25 05/05/2024 Basic metab olic 2000 panel - Serum or Plasm a glucose [mass/volume ] in capillary blood by glucometer 224 mg/dL low: 70mg/d Lhigh: 130mg/ dL high Gluco se 224 (H) 70 - 130 mg/dL 05/05 8:[address] [facility] [employer] [facility] Not Available Not Available 09/01/2024 16:25:17 05/05/19 25 05/05/2024 Basic metab olic 2000 panel - Serum or Plasm a interpretati on and review of laboratory results Abnorm al Not Available Not Available 16:25:17 05/05/19 25 05/05/2024 Basic metab olic 2000 panel - Serum or Plasm a glucose [mass/volume ] in capillary blood by glucometer 191 mg/dL low: 70mg/d Lhigh: 130mg/ dL high Gluco se 191 (H) 70 - 130 mg/dL 05/05 4:49 PM EST [employer] [facility] [employer] [facility] Not Available Not Available 09/01/2024 16:25:17 05/05/19 25 05/05/2024 Basic metab olic 2000 panel - Serum or Plasm a interpretati on and review of laboratory results Abnorm al Not Available Not Available 16:25:17 05/05/19 25 05/05/2024 Basic metab olic 2000 panel - Serum or Plasm a glucose [mass/volume ] in capillary blood by glucometer 251 mg/dL low: 70mg/d Lhigh: 130mg/ dL high Gluco se 251 (H) 70 - 130 mg/dL 05/05 12:13 PM EST [facility] [employer] [facility] [employer] Not Available Not Available 09/01/2024 16:25:17 05/05/19 25 05/05/2024 Basic metab olic 2000 panel - Serum or Plasm a interpretati on and review of laboratory results Abnorm al Not Available Not Available 16:25:17 05/05/19 25 05/05/2024 Basic metab olic 2000 panel - Serum or Plasm a glucose [mass/volume ] in capillary blood by glucometer 203 mg/dL low: 70mg/d Lhigh: 130mg/ dL high Gluco se 203 (H) 70 - 130 mg/dL 05/05 7:39 [address] [facility] [employer] [facility] Not Available Not Available 09/01/2024 16:25:17 05/05/19 25 05/05/2024 Basic metab olic 2000 panel - Serum or Plasm a interpretati on and review of laboratory results Abnorm al Not Available Not Available 16:25:17 05/06/19 25 05/06/2024 Basic metab olic 2000 panel - Serum or Plasm a glucose [mass/volume ] in capillary blood by glucometer 153 mg/dL low: 70mg/d Lhigh: 130mg/ dL high Gluco se 153 (H) 70 - 130 mg/dL 05/06 4:[address] Not Available Not Available 09/01/2024 16:25:17 05/06/19 25 05/06/2024 Basic metab olic 2000 panel - Serum or Plasm a interpretati on and review of laboratory results Abnorm al Not Available Not Available 16:25:17 05/06/19 25 05/06/2024 Basic metab olic 2000 panel - Serum or Plasm a glucose [mass/volume ] in capillary blood by glucometer 126 mg/dL low: 70mg/d Lhigh: 130mg/ dL Gluco se 126 70 - 130 mg/dL 05/06 11:[address] [facility] Not Available Not Available 09/01/2024 16:25:17 05/06/19 25 05/06/2024 Basic metab olic 2000 panel - Serum or Plasm a interpretati on and review of laboratory results Normal Not Available Not Available 08/12 16:25:17 05/06/19 25 05/06/2024 Magne sium Ioniz ed [Mass /volu me] in Serum or Plasm a magnesium [mass/volume ] in serum or plasma 2.2 mg/dL low: 1.6mg/ dLhigh : 2.4mg/ dL Magne sium 2.2 1.6 - 2.4 mg/dL 05/06 10:[address] Not Available Not Available 09/01/2024 16:25:17 05/06/19 25 05/06/2024 Magne sium Ioniz ed [Mass /volu me] in Serum or Plasm a interpretati on and review of laboratory results Normal Not Available Not Available 08/12 16:25:17 05/06/19 25 05/06/2024 Basic metab olic 1999 panel - Serum or Plasm a glucose [mass/volume ] in serum or plasma 244 mg/dL low: 65mg/d Lhigh: 99mg/d L high Gluco se 244 (H) 65 - 99 mg/dL 05/06 10:30 AM EST [employer] [facility] [employer] [facility] [employer] [employer] Not Available Not Available 09/01/2024 16:25:17 05/06/19 25 05/06/2024 Basic metab olic 1999 panel - Serum or Plasm a urea nitrogen [mass/volume ] in serum or plasma 24 mg/dL low: 8mg/dL high: 23mg/d L high BUN 24 (H) 8 - 23 mg/dL 05/06 10:30 AM EST [facility] [employer] [facility] [employer] Not Available Not Available 09/01/2024 16:25:17 05/06/19 25 05/06/2024 Basic metab olic 1999 panel - Serum or Plasm a creatinine [mass/volume ] in serum or plasma 0.94 mg/dL low: 0.76mg /dLhig h: 1.27mg /dL Creat inine 0.94 0.76 - 1.27 mg/dL 05/06 10:30 AM EST [employer] [facility] [employer] [facility] Not Available Not Available 09/01/2024 16:25:17 05/06/19 25 05/06/2024 Basic metab olic 1999 panel - Serum or Plasm a sodium [moles/volum e] in serum or plasma 138 mmol/ L low: 136mmo l/Lhig h: 145mmo l/L Sodiu m 138 136 - 145 mmol/ L 05/06 10:30 AM EST [facility] [employer] Not Available Not Available 09/01/2024 16:25:17 05/06/19 25 05/06/2024 Basic metab olic 1999 panel - Serum or Plasm a potassium [moles/volum e] in serum or plasma 4 mmol/ L low: 3.5mmo l/Lhig h: 5.2mmo l/L Potas sium 4.0 3.5 - 5.2 mmol/ L 05/06 10:30 AM EST [employer] LAB[facility] AT[facility] Not Available Not Available 09/01/2024 16:25:17 05/06/19 25 05/06/2024 Basic metab olic 2000 panel - Serum or Plasm a chloride [moles/volum e] in serum or plasma 96 mmol/ L low: 98mmol /Lhigh : 107mmo l/L low Chlor chava 96 (L) 98 - 107 mmol/ L 05/06 10:30 AM EST [employer] [facility] AT[facility] Not Available Not Available 09/01/2024 16:25:17 05/06/19 25 05/06/2024 Basic metab olic 2000 panel - Serum or Plasm a carbon dioxide, total [moles/volum e] in serum or plasma 32 mmol/ L low: 22mmol /Lhigh : 29mmol /L high CO2 32.0 (H) 22.0 - 29.0 mmol/ L 05/06 10:30 AM [facility] Not Available Not Available 09/01/2024 16:25:17 05/06/19 25 05/06/2024 Basic metab olic 2000 panel - Serum or Plasm a calcium [moles/volum e] in specimen 9.1 mg/dL low: 8.6mg/ dLhigh : 10.5mg /dL Calci um 9.1 8.6 - 10.5 mg/dL 05/06 10:30 AM [facility] Not Available Not Available 09/01/2024 16:25:17 05/06/19 25 05/06/2024 Basic metab olic 2000 panel - Serum or Plasm a urea nitrogen/cre atinine [mass ratio] in serum or plasma 25.5 low: 7high: 25 high BUN/C reati nine Ratio 25.5 (H) 7.0 - 25.0 05/06 10:30 AM [facility] Not Available Not Available 09/01/2024 16:25:17 05/06/19 25 05/06/2024 Basic metab olic 2000 panel - Serum or Plasm a anion gap in serum or plasma by calculated.3 ions 10 mmol/ L low: 5mmol/ Lhigh: 15mmol /L Anion Gap 10.0 5.0 - 15.0 mmol/ L 05/06 10:30 AM EST [facility] Not Available Not Available 09/01/2024 16:25:17 05/06/19 25 05/06/2024 Basic metab olic 2000 panel - Serum or Plasm a glomerular filtration rate [volume rate/area] in serum, plasma or blood by creatinine-b ased formula (CKD-epi 2020)/1.73 sq M 91.7 mL/mi n/1.7 3 low: 60mL/m in/1.7 3 eGFR 91.7 >60.0 mL/mi n/1.7 3 05/06 10:30 AM EST [employer] ATORY Not Available Not Available 09/01/2024 16:25:17 05/06/19 25 05/06/2024 Basic metab olic 1999 panel - Serum or Plasm a Unknown Analyte GFR Catego kylee in Chroni c Kidney Diseas e (CKD) GFR Catego ry GFR (mL/mi n/1.73 ) Interp retati on G1 90 or greate r Normal or high (1) G2 60-89 Mild decrea se (1) G3a 45-59 Mild to modera te decrea se G3b 30-44 Modera te to severe decrea se G4 15-29 Severe decrea se G5 14 or less Kidney failur e (1)In the absenc e of eviden ce of kidney diseas e, neithe r GFR catego ry G1 or G2 fulfil l the criter ia for CKD. eGFR calcul ation 2020 CKD-EP I creati nine equati on, which does not includ e race as a factor GFR Categ ories in Chron ic Kidne y Disea se (CKD) GFR Categ ory GFR (mL/m in/1. 73) Inter preta tion G1 90 or great er Etta l or high (1) G2 60-89 Mild decre ase (1) G3a 45-59 Mild to moder ate decre ase G3b 30-44 Moder ate to sever e decre ase G4 15-29 Sever e decre ase G5 14 or less Kidne y failu re (1)In the absen ce of evide nce of kidne y disea se, neith er GFR categ ory G1 or G2 fulfi ll the crite b[place] for CKD. eGFR calcu latio n 2020 CKD-E PI creat inine equat ion, which does not inclu de race as a facto r Not Available Not Available 09/01/2024 16:25:17 05/06/19 25 05/06/2024 Basic metab olic 2000 panel - Serum or Plasm a interpretati on and review of laboratory results Abnorm al Not Available Not Available 16:25:17 05/06/19 25 05/06/2024 CBC panel - Blood by Autom ated count leukocytes [#/volume] corrected for nucleated erythrocytes in blood by automated count 8.88 10*3/ mm3 low: 3.410* 3/mm3h igh: 10.810 *3/mm3 WBC 8.88 3.40 - 10.80 10*3/ mm3 05/06 9:[address] [facility] Not Available Not Available 09/01/2024 16:25:17 05/06/19 25 05/06/2024 CBC panel - Blood by Autom ated count erythrocytes [#/volume] in blood by automated count 5.35 10*6/ mm3 low: 4.1410 *6/mm3 high: 5.810* 6/mm3 RBC 5.35 4.14 - 5.80 10*6/ mm3 05/06 9:[address] [facility] Not Available Not Available 09/01/2024 16:25:17 05/06/1905/06/2024 CBC panel - Blood by Autom ated count hemoglobin [mass/volume ] in blood 12.9 g/dL low: 13g/dL high: 17.7g/ dL low Hemog lobin 12.9 (L) 13.0 - 17.7 g/dL 05/06 9:[address] [facility] Not Available Not Available 09/01/2024 16:25:17 05/06/19 25 05/06/2024 CBC panel - Blood by Autom ated count hematocrit [volume fraction] of blood by automated count 42 % low: 37.5%h igh: 51% Hemat ocrit 42.0 37.5 - 51.0 % 05/06 9:59 AM [facility] [employer] [facility] [employer] ATORY Not Available Not Available 09/01/2024 16:25:17 05/06/19 25 05/06/2024 CBC panel - Blood by Autom ated count MCV [entitic mean volume] in red blood cells by automated count 78.5 fL low: 79fLhi gh: 97fL low MCV 78.5 (L) 79.0 - 97.0 fL 05/06 9:59 AM [facility] [employer] [facility] [employer] ATORY Not Available Not Available 09/01/2024 16:25:17 05/06/19 25 05/06/2024 CBC panel - Blood by Autom ated count MCH [entitic mass] by automated count 24.1 pg low: 26.6pg high: 33pg low MCH 24.1 (L) 26.6 - 33.0 pg 05/06 9:59 AM [facility] [employer] [facility] [employer] ATORY Not Available Not Available 09/01/2024 16:25:17 05/06/19 25 05/06/2024 CBC panel - Blood by Autom ated count MCHC [entitic mass/volume] in red blood cells by automated count 30.7 g/dL low: 31.5g/ dLhigh : 35.7g/ dL low MCHC 30.7 (L) 31.5 - 35.7 g/dL 05/06 9:[address] [employer] [employer] ATORY Not Available Not Available 09/01/2024 16:25:17 05/06/19 25 05/06/2024 CBC panel - Blood by Autom ated count erythrocyte [distwidth] in red blood cells by automated count 19.9 % low: 12.3%h igh: 15.4% high RDW 19.9 (H) 12.3 - 15.4 % 05/06 9:59 AM [facility] Not Available Not Available 09/01/2024 16:25:17 05/06/19 25 05/06/2024 CBC panel - Blood by Autom ated count RDW-SD 53.5 fL low: 37fLhi gh: 54fL RDW-S D 53.5 37.0 - 54.0 fl 05/06 9:59 AM EST [employer] [facility] ATORY Not Available Not Available 09/01/2024 16:25:17 05/06/19 25 05/06/2024 CBC panel - Blood by Autom ated count platelet [entitic mean volume] in blood by automated count 9.5 fL low: 6fLhig h: 12fL MPV 9.5 6.0 - 12.0 fL 05/06 9:59 AM [facility] Not Available Not Available 09/01/2024 16:25:17 05/06/19 25 05/06/2024 CBC panel - Blood by Autom ated count platelets [#/volume] in blood by automated count 256 10*3/ mm3 low: 16317* 3/mm3h igh: 22471* 3/mm3 Plate lets 256 140 - 450 10*3/ mm3 05/06 9:59 AM [employer] ATORY Not Available Not Available 09/01/2024 16:25:17 05/06/19 25 05/06/2024 CBC panel - Blood by Autom ated count interpretati on and review of laboratory results Abnorm al Not Available Not Available 16:25:17 05/06/19 25 05/06/2024 Basic metab olic 2000 panel - Serum or Plasm a glucose [mass/volume ] in capillary blood by glucometer 227 mg/dL low: 70mg/d Lhigh: 130mg/ dL high Gluco se 227 (H) 70 - 130 mg/dL 05/06 7:55 AM [facility] Not Available Not Available 09/01/2024 16:25:17 05/06/19 25 05/06/2024 Basic metab olic 1999 panel - Serum or Plasm a interpretati on and review of laboratory results Abnorm al Not Available Not Available 16:25:17 05/26/19 25 05/26/2024 Basic metab olic 1999 panel - Serum or Plasm a glucose [mass/volume ] in capillary blood by glucometer 189 mg/dL low: 70mg/d Lhigh: 130mg/ dL high Gluco se 189 (H) 70 - 130 mg/dL 05/26 8:[address] [facility] Not Available Not Available 09/01/2024 16:28:05 05/26/19 25 05/26/2024 Basic metab olic 1999 panel - Serum or Plasm a interpretati on and review of laboratory results Abnorm al Not Available Not Available 16:28:05 05/26/19 25 05/26/2024 Tropo basim T.car diac [Mass /volu me] in Serum or Plasm a by High sensi tivit y metho d troponin T.cardiac [mass/volume ] in serum or plasma by high sensitivity method 23 NG/L high: 22NG/L high HS Tropo basim T 23 (H) <22 ng/L 05/26 8:[address] [facility] Not Available Not Available 09/01/2024 16:28:05 05/26/19 25 05/26/2024 Tropo basim T.car diac [Mass /volu me] in Serum or Plasm a by High sensi tivit y metho d Unknown Analyte High Sensit minh Tropon in T Refere nce Range: <14.0 ng/L- Negati ve Female for AMI <22.0 ng/L- Negati ve Male for AMI >=14 - Abnorm al Female indica ting possib le myocar dial injury . >=22 - Abnorm al Male indica ting possib le myocar dial injury . Clinic ians would have to utiliz e clinic al acumen , EKG, Tropon in, and serial change s to determ ine if it is an Acute Myocar dial Infarc tion or myocar dial injury due to an underl andrei chroni c condit ion. High Sensi tive Tropo basim T Refer ence Range : <14.0 ng/L- Negat minh Femal e for AMI <22.0 ng/L- Negat minh Male for AMI >=14 - Abnor mal Femal e indic ating possi ble myoca rdial injur y. >=22 - Abnor mal Male indic ating possi ble myoca rdial injur y. Clini cians would have to utili ze clini jone acume n, EKG, Tropo basim, and seria l manzanares es to deter mine if it is an Acute Myoca rdial Infar ction or myoca rdial injur y due to an under lying chron ic condi tion. Not Available Not Available 09/01/2024 16:28:05/26/1905/26/2024 Tropo basim T.car diac [Mass /volu me] in Serum or Plasm a by High sensi tivit y metho d interpretati on and review of laboratory results Abnorm al Not Available Not Available 16:28:05/26/1905/26/2024 Lipid panel with direc t LDL - Serum or Plasm a cholesterol [mass/volume ] in serum or plasma 155 mg/dL low: 0mg/dL high: 200mg/ dL Total Trudy stero l 155 0 - 200 mg/dL 05/26 4:[address] [facility] Not Available Not Available 09/01/2024 16:28:05/26/1905/26/2024 Lipid panel with direc t LDL - Serum or Plasm a triglyceride [mass/volume ] in serum or plasma 165 mg/dL low: 0mg/dL high: 150mg/ dL high Trigl yceri jagdeep 165 (H) 0 - 150 mg/dL 05/26 4:[address] [facility] Not Available Not Available 09/01/2024 16:28:05/26/19 25 05/26/2024 Lipid panel with direc t LDL - Serum or Plasm a cholesterol in HDL [mass/volume ] in serum or plasma 53 mg/dL low: 40mg/d Lhigh: 60mg/d L HDL Trudy stero l 53 40 - 60 mg/dL 05/26 4:35 PM [address] [facility] [employer] [facility] [employer] [facility] Not Available Not Available 09/01/2024 16:28:05 05/26/19 25 05/26/2024 Lipid panel with direc t LDL - Serum or Plasm a cholesterol in LDL [mass/volume ] in serum or plasma by calculation 74 mg/dL low: 0mg/dL high: 100mg/ dL LDL Trudy stero l 74 0 - 100 mg/dL 05/26 4:35 PM EST [employer] [facility] Not Available Not Available 09/01/2024 16:28:05 05/26/19 25 05/26/2024 Lipid panel with direc t LDL - Serum or Plasm a cholesterol in VLDL [mass/volume ] in serum or plasma 28 mg/dL low: 5mg/dL high: 40mg/d L VLDL Trudy stero l 28 5 - 40 mg/dL 05/26 4:35 PM EST [employer] [facility] Not Available Not Available 09/01/2024 16:28:05 05/26/19 25 05/26/2024 Lipid panel with direc t LDL - Serum or Plasm a cholesterol in LDL/choleste rol in HDL [mass ratio] in serum or plasma 1.3 LDL/H DL Ratio 1.30 05/26 4:35 PM EST [employer] [facility] Not Available Not Available 09/01/2024 16:28:05 05/26/19 25 05/26/2024 Lipid panel with direc t LDL - Serum or Plasm a Unknown Analyte Choles terol Refere nce Ranges ([facility] ATP III Classi ficati ons) Desira ble <200 mg/dL Border line High 200-23 9 mg/dL High Risk >240 mg/dL Trigly ceride Refere nce Ranges ([facility] ATP III Classi ficati ons) Normal <150 mg/dL Border line High 150-19 9 mg/dL High 200-49 9 mg/dL Very High >500 mg/dL HDL Refere nce Ranges ([facility] ATP III Classi ficati ons) Low <40 mg/dl (major risk factor for CHD) High >60 mg/dl ('nega tive' risk factor for CHD) LDL Refere nce Ranges ([facility] ATP III Classi ficati ons) [place] l <100 mg/dL Near [place] l 100-12 9 mg/dL Border line High 130-15 9 mg/dL High 160-18 9 mg/dL Very High >189 mg/dL LDL is calcul ated using the NIH LDL-C calcul ation. Trudy stero l Refer ence Range s ([facility] kristan ATP III Class ifica tions ) Raad able <200 mg/dL Borde rline High 200-2 39 mg/dL High Risk >240 mg/dL Trigl yceri de Refer ence Range s ([facility] kristan ATP III Class ifica tions ) Etta l <150 mg/dL Borde rline High 150-1 99 mg/dL High 200-4 99 mg/dL Very High >500 mg/dL HDL Refer ence Range s ([facility] kristan ATP III Class ifica tions ) Low <40 mg/dl (lanie r risk facto r for CHD) High >60 mg/dl ('neg ative ' risk facto r for CHD) LDL Refer ence Range s ([facility] kristan ATP III Class ifica tions ) Optim al <100 mg/dL Near Optim al 100-1 29 mg/dL Borde rline High 130-1 59 mg/dL High 160-1 89 mg/dL Very High >189 mg/dL LDL is calcu lated using the NIH LDL-C calcu latio n. Not Available Not Available 09/01/2024 16:28:05 05/26/19 25 05/26/2024 Lipid panel with direc t LDL - Serum or Plasm a interpretati on and review of laboratory results Abnorm al Not Available Not Available 16:28:05 05/26/19 25 05/26/2024 Tropo basim T.car diac [Mass /volu me] in Serum or Plasm a by High sensi tivit y metho d hs troponin T 27 NG/L high: 22NG/L high HS Tropo basim T 27 (H) <22 ng/L 05/26 3:[address] [facility] Not Available Not Available 09/01/2024 16:28:05 05/26/19 25 05/26/2024 Tropo basim T.car diac [Mass /volu me] in Serum or Plasm a by High sensi tivit y metho d troponin T numeric delta 4 NG/L Tropo basim T Numer ic Delta 4 ng/L 05/26 3:[address] [facility] Not Available Not Available 09/01/2024 16:28:05 05/26/19 25 05/26/2024 Tropo basim T.car diac [Mass /volu me] in Serum or Plasm a by High sensi tivit y metho d troponin T % delta 17 text: abnorm al if >/= 20% Tropo basim T % Delta 17 Abnor mal if >/= 20% 05/26 3:[address] [facility] Not Available Not Available 09/01/2024 16:28:05 05/26/19 25 05/26/2024 Tropo basim T.car diac [Mass /volu me] in Serum or Plasm a by High sensi tivit y metho d Unknown Analyte High Sensit minh Tropon in T Refere nce Range: <14.0 ng/L- Negati ve Female for AMI <22.0 ng/L- Negati ve Male for AMI >=14 - Abnorm al Female indica ting possib le myocar dial injury . >=22 - Abnorm al Male indica ting possib le myocar dial injury . Clinic ians would have to utiliz e clinic al acumen , EKG, Tropon in, and serial change s to determ ine if it is an Acute Myocar dial Infarc tion or myocar dial injury due to an underl andrei chroni c condit ion. High Sensi tive Tropo basim T Refer ence Range : <14.0 ng/L- Negat minh Femal e for AMI <22.0 ng/L- Negat minh Male for AMI >=14 - Abnor mal Femal e indic ating possi ble myoca rdial injur y. >=22 - Abnor mal Male indic ating possi ble myoca rdial injur y. Clini cians would have to utili ze clini jone acume n, EKG, Tropo basim, and seria l manzanares es to deter mine if it is an Acute Myoca rdial Infar ction or myoca rdial injur y due to an under lying chron ic condi tion. Not Available Not Available 09/01/2024 16:28:05/26/1905/26/2024 Tropo basim T.car diac [Mass /volu me] in Serum or Plasm a by High sensi tivit y metho d interpretati on and review of laboratory results Abnorm al Not Available Not Available 16:28:05/26/1905/26/2024 Magne sium Ioniz ed [Mass /volu me] in Serum or Plasm a magnesium [mass/volume ] in serum or plasma 1.9 mg/dL low: 1.6mg/ dLhigh : 2.4mg/ dL Magne sium 1.9 1.6 - 2.4 mg/dL 05/26 3:[address] [facility] Not Available Not Available 09/01/2024 16:28:05/26/19 25 05/26/2024 Magne sium Ioniz ed [Mass /volu me] in Serum or Plasm a interpretati on and review of laboratory results Normal Not Available Not Available 08/12 16:28:05/26/19 25 05/26/2024 CBC W Diffe renti al panel , metho d unspe cifie d - Blood leukocytes [#/volume] corrected for nucleated erythrocytes in blood by automated count 9.37 10*3/ mm3 low: 3.410* 3/mm3h igh: 10.810 *3/mm3 WBC 9.37 3.40 - 10.80 10*3/ mm3 05/26 2:20 PM EST [employer] [facility] Not Available Not Available 09/01/2024 16:28:04 05/26/1905/26/2024 CBC W Anthony kumar al panel , metho d unspe cifie d - Blood erythrocytes [#/volume] in blood by automated count 4.88 10*6/ mm3 low: 4.1410 *6/mm3 high: 5.810* 6/mm3 RBC 4.88 4.14 - 5.80 10*6/ mm3 05/26 2:20 PM EST [employer] [facility] Not Available Not Available 09/01/2024 16:28:04 05/26/1905/26/2024 CBC W Anthony kumar al panel , metho d unspe cifie d - Blood hemoglobin [mass/volume ] in blood 11.7 g/dL low: 13g/dL high: 17.7g/ dL low Hemog lobin 11.7 (L) 13.0 - 17.7 g/dL 05/26 2:20 PM EST [employer] [facility] AT[facility] Not Available Not Available 09/01/2024 16:28:04 05/26/1905/26/2024 CBC W Anthony kumar al panel , metho d unspe cifie d - Blood hematocrit [volume fraction] of blood by automated count 38.6 % low: 37.5%h igh: 51% Hemat ocrit 38.6 37.5 - 51.0 % 05/26 2:20 PM EST [email or web address] [facility] AT[facility] Not Available Not Available 09/01/2024 16:28:04 05/26/19 25 05/26/2024 CBC W Anthony kumar al panel , metho d unspe cifie d - Blood MCV [entitic mean volume] in red blood cells by automated count 79.1 fL low: 79fLhi gh: 97fL MCV 79.1 79.0 - 97.0 fL 05/26 2:20 PM EST [email or web address] [facility] Not Available Not Available 09/01/2024 16:28:04 05/26/19 25 05/26/2024 CBC W Diffe renti al panel , metho d unspe cifie d - Blood MCH [entitic mass] by automated count 24 pg low: 26.6pg high: 33pg low MCH 24.0 (L) 26.6 - 33.0 pg 05/26 2:20 PM EST [employer] [facility] ATORY Not Available Not Available 09/01/2024 16:28:04 05/26/19 25 05/26/2024 CBC W Diffe renti al panel , metho d unspe cifie d - Blood MCHC [entitic mass/volume] in red blood cells by automated count 30.3 g/dL low: 31.5g/ dLhigh : 35.7g/ dL low MCHC 30.3 (L) 31.5 - 35.7 g/dL 05/26 2:20 PM [facility] Not Available Not Available 09/01/2024 16:28:04 05/26/19 25 05/26/2024 CBC W Diffe renti al panel , metho d unspe cifie d - Blood erythrocyte [distwidth] in red blood cells by automated count 18.4 % low: 12.3%h igh: 15.4% high RDW 18.4 (H) 12.3 - 15.4 % 05/26 2:20 PM [facility] Not Available Not Available 09/01/2024 16:28:04 05/26/19 25 05/26/2024 CBC W Diffe renti al panel , metho d unspe cifie d - Blood RDW-SD 52.8 fL low: 37fLhi gh: 54fL RDW-S D 52.8 37.0 - 54.0 fl 05/26 2:20 PM [facility] Not Available Not Available 09/01/2024 16:28:04 05/26/19 25 05/26/2024 CBC W Diffe renti al panel , metho d unspe cifie d - Blood platelet [entitic mean volume] in blood by automated count 9.2 fL low: 6fLhig h: 12fL MPV 9.2 6.0 - 12.0 fL 05/26 2:20 PM EST [employer] [facility] AT[facility] Not Available Not Available 09/01/2024 16:28:04 05/26/19 25 05/26/2024 CBC W Diffe renti al panel , metho d unspe cifie d - Blood platelets [#/volume] in blood by automated count 279 10*3/ mm3 low: 65047* 3/mm3h igh: 92510* 3/mm3 Plate lets 279 140 - 450 10*3/ mm3 05/26 2:20 PM EST [employer] [facility] ATORY Not Available Not Available 09/01/2024 16:28:04 05/26/19 25 05/26/2024 CBC W Jennifere michaelti al panel , metho d unspe cifie d - Blood neutrophils/ leukocytes in blood by automated count 75 % low: 42.7%h igh: 76% Neutr ophil % 75.0 42.7 - 76.0 % 05/26 2:20 PM EST [employer] [facility] ATORY Not Available Not Available 09/01/2024 16:28:04 05/26/19 25 05/26/2024 CBC W Jennifere michaelti al panel , metho d unspe cifie d - Blood lymphocytes/ leukocytes in blood by automated count 14 % low: 19.6%h igh: 45.3% low Lymph ocyte % 14.0 (L) 19.6 - 45.3 % 05/26 2:20 PM EST [employer] [facility] ATORY Not Available Not Available 09/01/2024 16:28:04 05/26/19 25 05/26/2024 CBC W Diffe renti al panel , metho d unspe cifie d - Blood monocytes/le ukocytes in blood by automated count 6.9 % low: 5%high : 12% Monoc yte % 6.9 5.0 - 12.0 % 05/26 2:[address] Not Available Not Available 09/01/2024 16:28:04 05/26/19 25 05/26/2024 CBC W Diffe renti al panel , metho d unspe cifie d - Blood eosinophils/ leukocytes in blood by automated count 3.5 % low: 0.3%hi gh: 6.2% Eosin ophil % 3.5 0.3 - 6.2 % 05/26 2:[address] [employer] [facility] Not Available Not Available 09/01/2024 16:28:04 05/26/19 25 05/26/2024 CBC W Diffe renti al panel , metho d unspe cifie d - Blood basophils/le ukocytes in blood by automated count 0.3 % low: 0%high : 1.5% Basop hil % 0.3 0.0 - 1.5 % 05/26 2:20 PM [address] [email or web address] [facility] Not Available Not Available 09/01/2024 16:28:04 05/26/19 25 05/26/2024 CBC W Diffe renti al panel , metho d unspe cifie d - Blood immature granulocytes /leukocytes in blood by automated count 0.3 % low: 0%high : 0.5% Immat ure Grans % 0.3 0.0 - 0.5 % 05/26 2:20 PM EST [employer] [facility] Not Available Not Available 09/01/2024 16:28:04 05/26/19 25 05/26/2024 CBC W Diffe renti al panel , metho d unspe cifie d - Blood neutrophils/ leukocytes in blood by automated count 7.02 10*3/ mm3 low: 1.710* 3/mm3h igh: 710*3/ mm3 high Neutr ophil s, Absol naknek 7.02 (H) 1.70 - 7.00 10*3/ mm3 05/26 2:20 PM EST [employer] [facility] Not Available Not Available 09/01/2024 16:28:04 05/26/19 25 05/26/2024 CBC W Diffe renti al panel , metho d unspe cifie d - Blood lymphocytes [#/volume] in blood by automated count 1.31 10*3/ mm3 low: 0.710* 3/mm3h igh: 3.110* 3/mm3 Lymph ocyte s, Absol naknek 1.31 0.70 - 3.10 10*3/ mm3 05/26 2:20 PM [address] [facility] [employer] [facility] AT[facility] Not Available Not Available 09/01/2024 16:28:04 05/26/19 25 05/26/2024 CBC W Diffe renti al panel , metho d unspe cifie d - Blood monocytes [#/volume] in blood by automated count 0.65 10*3/ mm3 low: 0.110* 3/mm3h igh: 0.910* 3/mm3 Monoc ytes, Absol naknek 0.65 0.10 - 0.90 10*3/ mm3 05/26 2:20 PM EST [employer] [facility] AT[facility] Not Available Not Available 09/01/2024 16:28:04 05/26/19 25 05/26/2024 CBC W Diffe renti al panel , metho d unspe cifie d - Blood eosinophils [#/volume] in blood by automated count 0.33 10*3/ mm3 low: 010*3/ mm3hig h: 0.410* 3/mm3 Eosin ophil s, Absol naknek 0.33 0.00 - 0.40 10*3/ mm3 05/26 2:20 PM EST [employer] [facility] Not Available Not Available 09/01/2024 16:28:04 05/26/19 25 05/26/2024 CBC W Diffe renti al panel , metho d unspe cifie d - Blood basophils [#/volume] in blood by automated count 0.03 10*3/ mm3 low: 010*3/ mm3hig h: 0.210* 3/mm3 Basop hils, Absol naknek 0.03 0.00 - 0.20 10*3/ mm3 05/26 2:20 PM EST [employer] [facility] Not Available Not Available 09/01/2024 16:28:04 05/26/19 25 05/26/2024 CBC W Diffe renti al panel , metho d unspe cifie d - Blood immature granulocytes [#/volume] in blood by automated count 0.03 10*3/ mm3 low: 010*3/ mm3hig h: 0.0510 *3/mm3 Immat ure Grans , Absol naknek 0.03 0.00 - 0.05 10*3/ mm3 05/26 2:[address] [employer] [facility] [employer] [facility] Not Available Not Available 09/01/2024 16:28:04 05/26/19 25 05/26/2024 CBC W Diffe renti al panel , metho d unspe cifie d - Blood nucleated erythrocytes /leukocytes [ratio] in blood by automated count 0 text: 0.0 - 0.2 /100 WBC nRBC 0.0 0.0 - 0.2 /100 WBC 05/26 2:[address] [employer] [facility] [employer] [facility] Not Available Not Available 09/01/2024 16:28:04 05/26/19 25 05/26/2024 CBC W Diffe renti al panel , metho d unspe cifie d - Blood interpretati on and review of laboratory results Abnorm al Not Available Not Available 16:28:04 05/26/19 25 05/26/2024 Tropo basim T.car diac [Mass /volu me] in Serum or Plasm a by High sensi tivit y metho d troponin T.cardiac [mass/volume ] in serum or plasma by high sensitivity method 23 NG/L high: 22NG/L high HS Tropo basim T 23 (H) <22 ng/L 05/26 2:[address] [facility] [employer] [facility] Not Available Not Available 09/01/2024 16:28:04 05/26/19 25 05/26/2024 Tropo basim T.car diac [Mass /volu me] in Serum or Plasm a by High sensi tivit y metho d Unknown Analyte High Sensit minh Tropon in T Refere nce Range: <14.0 ng/L- Negati ve Female for AMI <22.0 ng/L- Negati ve Male for AMI >=14 - Abnorm al Female indica ting possib le myocar dial injury . >=22 - Abnorm al Male indica ting possib le myocar dial injury . Clinic ians would have to utiliz e clinic al acumen , EKG, Tropon in, and serial change s to determ ine if it is an Acute Myocar dial Infarc tion or myocar dial injury due to an underl andrei chroni c condit ion. High Sensi tive Tropo basim T Refer ence Range : <14.0 ng/L- Negat minh Femal e for AMI <22.0 ng/L- Negat minh Male for AMI >=14 - Abnor mal Femal e indic ating possi ble myoca rdial injur y. >=22 - Abnor mal Male indic ating possi ble myoca rdial injur y. Clini cians would have to utili ze clini jone acume n, EKG, Tropo basim, and seria l manzanares es to deter mine if it is an Acute Myoca rdial Infar ction or myoca rdial injur y due to an under lying chron ic condi tion. Not Available Not Available 09/01/2024 16:28:04 05/26/1905/26/2024 Tropo basim T.car diac [Mass /volu me] in Serum or Plasm a by High sensi tivit y metho d interpretati on and review of laboratory results Abnorm al Not Available Not Available 16:28:04 05/26/1905/26/2024 Natri ureti c pepti de B [Mass /volu me] in Serum or Plasm a natriuretic peptide.B prohormone N-terminal [mass/volume ] in serum or plasma 1337 pg/mL low: 0pg/mL high: 900pg/ mL high proBN P 1,337 .0 (H) 0.0 - 900.0 pg/mL 05/26 2:[address] [facility] Not Available Not Available 09/01/2024 16:28:04 05/26/1905/26/2024 Natri ureti c pepti de B [Mass /volu me] in Serum or Plasm a Unknown Analyte This assay is used as an aid in the diagno sis of indivi duals suspec contreras of having heart failur e. It can be used as an aid in the diagno sis of acute decomp ensate d heart failur e (ADHF) in patien ts presen ting with signs and sympto ms of ADHF to the emerge ncy depart ment (ED). In additi on, NT-pro BNP of <300 pg/mL indica elizabeth ADHF is not likely . Age Range Result Interp retati on NT-pro BNP Concen tratio n (pg/mL : <50 Positi ve >450 Mac 300-45 0 Negati ve <300 50-75 Positi ve >900 Mac 300-90 0 Negati ve <300 >75 Positi ve >1800 Mac 300-18 00 Negati ve <300 This assay is used as an aid in the diagn osis of indiv idual s suspe cted of havin g heart failu re. It can be used as an aid in the diagn osis of acute decom pensa contreras heart failu re (ADHF ) in patie nts prese nting with signs and sympt oms of ADHF to the emerg ency depar tment (ED). In addit ion, NT-pr oBNP of <300 pg/mL indic ates ADHF is not likel y. Age Range Resul t Inter preta tion NT-pr oBNP Sylvia ntrat ion (pg/m L: <50 Posit minh >450 Mac 300-4 50 Negat minh <300 50-75 Posit minh >900 Mac 300-9 00 Negat minh <300 >75 Posit minh >1800 Mac 300-1 800 Negat minh <300 Not Available Not Available 09/01/2024 16:28:04 05/26/19 25 05/26/2024 Natri ureti c pepti de B [Mass /volu me] in Serum or Plasm a interpretati on and review of laboratory results Abnorm al Not Available Not Available 16:28:04 05/27/19 25 05/27/2024 Basic metab olic 2000 panel - Serum or Plasm a glucose [mass/volume ] in capillary blood by glucometer 203 mg/dL low: 70mg/d Lhigh: 130mg/ dL high Gluco se 203 (H) 70 - 130 mg/dL 05/27 7:57 PM EST [facility] Not Available Not Available 09/01/2024 16:28:05 05/27/19 25 05/27/2024 Basic metab olic 2000 panel - Serum or Plasm a interpretati on and review of laboratory results Abnorm al Not Available Not Available 16:28:05 05/27/19 25 05/27/2024 Basic metab olic 2000 panel - Serum or Plasm a glucose [mass/volume ] in capillary blood by glucometer 257 mg/dL low: 70mg/d Lhigh: 130mg/ dL high Gluco se 257 (H) 70 - 130 mg/dL 05/27 4:43 PM EST [facility] Not Available Not Available 09/01/2024 16:28:05 05/27/19 25 05/27/2024 Basic metab olic 2000 panel - Serum or Plasm a interpretati on and review of laboratory results Abnorm al Not Available Not Available 16:28:05 05/27/19 25 05/27/2024 Basic metab olic 2000 panel - Serum or Plasm a glucose [mass/volume ] in capillary blood by glucometer 188 mg/dL low: 70mg/d Lhigh: 130mg/ dL high Gluco se 188 (H) 70 - 130 mg/dL 05/27 11:47 AM EST [facility] Not Available Not Available 09/01/2024 16:28:05 05/27/19 25 05/27/2024 Basic metab olic 2000 panel - Serum or Plasm a interpretati on and review of laboratory results Abnorm al Not Available Not Available 16:28:05 05/27/19 25 05/27/2024 Basic metab olic 2000 panel - Serum or Plasm a glucose [mass/volume ] in capillary blood by glucometer 171 mg/dL low: 70mg/d Lhigh: 130mg/ dL high Gluco se 171 (H) 70 - 130 mg/dL 05/27 7:[address] [facility] Not Available Not Available 09/01/2024 16:28:05/27/19 25 05/27/2024 Basic metab olic 2000 panel - Serum or Plasm a interpretati on and review of laboratory results Abnorm al Not Available Not Available 16:28:05/27/19 25 05/27/2024 Phosp hate [Mass /volu me] in Serum or Plasm a phosphate [mass/volume ] in serum or plasma 3.9 mg/dL low: 2.5mg/ dLhigh : 4.5mg/ dL Phosp horus 3.9 2.5 - 4.5 mg/dL 05/27 6:[address] [facility] Not Available Not Available 09/01/2024 16:28:05/27/19 25 05/27/2024 Phosp hate [Mass /volu me] in Serum or Plasm a interpretati on and review of laboratory results Normal Not Available Not Available 08/12 16:28:05/27/19 25 05/27/2024 Hemog lobin A1c/H emogl obin. total in Blood hemoglobin A1C/hemoglob in.total in blood 9.2 % low: 4.8%hi gh: 5.6% high Hemog lobin A1C 9.20 (H) 4.80 - 5.60 % 05/27 6:[address] [facility] Not Available Not Available 09/01/2024 16:28:05/27/19 25 05/27/2024 Hemog lobin A1c/H emogl obin. total in Blood Unknown Analyte Hemogl obin A1C Ranges : Increa sed Risk for Diabet es 5.7% to 6.4% Diabet es >= 6.5% Diabet ic Goal < 7.0% Hemog lobin A1C Range s: Incre ased Risk for Diabe elizabeth 5.7% to 6.4% Diabe elizabeth >= 6.5% Diabe tic Goal < 7.0% Not Available Not Available 09/01/2024 16:28:05/27/19 25 05/27/2024 Hemog lobin A1c/H emogl obin. total in Blood interpretati on and review of laboratory results Abnorm al Not Available Not Available 16:28:05/27/1905/27/2024 CBC W Diffe renti al panel , metho d unspe cifie d - Blood leukocytes [#/volume] corrected for nucleated erythrocytes in blood by automated count 8.71 10*3/ mm3 low: 3.410* 3/mm3h igh: 10.810 *3/mm3 WBC 8.71 3.40 - 10.80 10*3/ mm3 05/27 5:[address] [facility] Not Available Not Available 09/01/2024 16:28:05/27/1905/27/2024 CBC W Diffe josé al panel , metho d unspe cifie d - Blood erythrocytes [#/volume] in blood by automated count 4.66 10*6/ mm3 low: 4.1410 *6/mm3 high: 5.810* 6/mm3 RBC 4.66 4.14 - 5.80 10*6/ mm3 05/27 5:[address] [facility] Not Available Not Available 09/01/2024 16:28:05/27/1905/27/2024 CBC W Jennifere josé al panel , metho d unspe cifie d - Blood hemoglobin [mass/volume ] in blood 11.2 g/dL low: 13g/dL high: 17.7g/ dL low Hemog lobin 11.2 (L) 13.0 - 17.7 g/dL 05/27 5:[address] [facility] Not Available Not Available 09/01/2024 16:28:05/27/1905/27/2024 CBC W Diffe renti al panel , metho d unspe cifie d - Blood hematocrit [volume fraction] of blood by automated count 37.7 % low: 37.5%h igh: 51% Hemat ocrit 37.7 37.5 - 51.0 % 05/27 5:[address] [facility] Not Available Not Available 09/01/2024 16:28:05 05/27/19 25 05/27/2024 CBC W Diffe renti al panel , metho d unspe cifie d - Blood MCV [entitic mean volume] in red blood cells by automated count 80.9 fL low: 79fLhi gh: 97fL MCV 80.9 79.0 - 97.0 fL 05/27 5:46 AM EST [employer] [facility] Not Available Not Available 09/01/2024 16:28:05 05/27/19 25 05/27/2024 CBC W Diffe josé al panel , metho d unspe cifie d - Blood MCH [entitic mass] by automated count 24 pg low: 26.6pg high: 33pg low MCH 24.0 (L) 26.6 - 33.0 pg 05/27 5:46 AM EST [employer] [facility] Not Available Not Available 09/01/2024 16:28:05 05/27/19 25 05/27/2024 CBC W Diffe josé al panel , metho d unspe cifie d - Blood MCHC [entitic mass/volume] in red blood cells by automated count 29.7 g/dL low: 31.5g/ dLhigh : 35.7g/ dL low MCHC 29.7 (L) 31.5 - 35.7 g/dL 05/27 5:46 AM EST [employer] [facility] Not Available Not Available 09/01/2024 16:28:05 05/27/19 25 05/27/2024 CBC W Diffe josé al panel , metho d unspe cifie d - Blood erythrocyte [distwidth] in red blood cells by automated count 18.6 % low: 12.3%h igh: 15.4% high RDW 18.6 (H) 12.3 - 15.4 % 05/27 5:46 AM EST [employer] [facility] Not Available Not Available 09/01/2024 16:28:05 05/27/19 25 05/27/2024 CBC W Diffe josé al panel , metho d unspe cifie d - Blood RDW-SD 54.4 fL low: 37fLhi gh: 54fL high RDW-S D 54.4 (H) 37.0 - 54.0 fl 05/27 5:46 AM EST [employer] [facility] Not Available Not Available 09/01/2024 16:28:05 05/27/19 25 05/27/2024 CBC W Anthony kumar al panel , metho d unspe cifie d - Blood platelet [entitic mean volume] in blood by automated count 9.3 fL low: 6fLhig h: 12fL MPV 9.3 6.0 - 12.0 fL 05/27 5:46 AM EST [facility] Not Available Not Available 09/01/2024 16:28:05 05/27/19 25 05/27/2024 CBC W Anthony kumar al panel , metho d unspe cifie d - Blood platelets [#/volume] in blood by automated count 266 10*3/ mm3 low: 90327* 3/mm3h igh: 78352* 3/mm3 Plate lets 266 140 - 450 10*3/ mm3 05/27 5:46 AM EST [facility] Not Available Not Available 09/01/2024 16:28:05 05/27/19 25 05/27/2024 CBC W Anthony kumar al panel , metho d unspe cifie d - Blood neutrophils/ leukocytes in blood by automated count 62 % low: 42.7%h igh: 76% Neutr ophil % 62.0 42.7 - 76.0 % 05/27 5:46 AM [facility] Not Available Not Available 09/01/2024 16:28:05 05/27/19 25 05/27/2024 CBC W Diffnaren kumar al panel , metho d unspe cifie d - Blood lymphocytes/ leukocytes in blood by automated count 23.1 % low: 19.6%h igh: 45.3% Lymph ocyte % 23.1 19.6 - 45.3 % 05/27 5:[address] [facility] Not Available Not Available 09/01/2024 16:28:05 05/27/19 25 05/27/2024 CBC W Diffe renti al panel , metho d unspe cifie d - Blood monocytes/le ukocytes in blood by automated count 10.2 % low: 5%high : 12% Monoc yte % 10.2 5.0 - 12.0 % 05/27 5:[address] [facility] Not Available Not Available 09/01/2024 16:28:05 05/27/19 25 05/27/2024 CBC W Diffe renti al panel , metho d unspe cifie d - Blood eosinophils/ leukocytes in blood by automated count 4.2 % low: 0.3%hi gh: 6.2% Eosin ophil % 4.2 0.3 - 6.2 % 05/27 5:[address] [facility] Not Available Not Available 09/01/2024 16:28:05 05/27/19 25 05/27/2024 CBC W Diffe renti al panel , metho d unspe cifie d - Blood basophils/le ukocytes in blood by automated count 0.2 % low: 0%high : 1.5% Basop hil % 0.2 0.0 - 1.5 % 05/27 5:[address] [facility] Not Available Not Available 09/01/2024 16:28:05 05/27/19 25 05/27/2024 CBC W Diffe renti al panel , metho d unspe cifie d - Blood immature granulocytes /leukocytes in blood by automated count 0.3 % low: 0%high : 0.5% Immat ure Grans % 0.3 0.0 - 0.5 % 05/27 5:[address] [facility] Not Available Not Available 09/01/2024 16:28:05 05/27/19 25 05/27/2024 CBC W Diffe renti al panel , metho d unspe cifie d - Blood neutrophils/ leukocytes in blood by automated count 5.39 10*3/ mm3 low: 1.710* 3/mm3h igh: 710*3/ mm3 Neutr ophil s, Absol naknek 5.39 1.70 - 7.00 10*3/ mm3 05/27 5:[address] [facility] Not Available Not Available 09/01/2024 16:28:05 05/27/19 25 05/27/2024 CBC W Diffe renti al panel , metho d unspe cifie d - Blood lymphocytes [#/volume] in blood by automated count 2.01 10*3/ mm3 low: 0.710* 3/mm3h igh: 3.110* 3/mm3 Lymph ocyte s, Absol naknek 2.01 0.70 - 3.10 10*3/ mm3 05/27 5:[address] [facility] [email or web address] Not Available Not Available 09/01/2024 16:28:05 05/27/19 25 05/27/2024 CBC W Diffe renti al panel , metho d unspe cifie d - Blood monocytes [#/volume] in blood by automated count 0.89 10*3/ mm3 low: 0.110* 3/mm3h igh: 0.910* 3/mm3 Monoc ytes, Absol naknek 0.89 0.10 - 0.90 10*3/ mm3 05/27 5:[address] [facility] Not Available Not Available 09/01/2024 16:28:05 05/27/19 25 05/27/2024 CBC W Diffe renti al panel , metho d unspe cifie d - Blood eosinophils [#/volume] in blood by automated count 0.37 10*3/ mm3 low: 010*3/ mm3hig h: 0.410* 3/mm3 Eosin ophil s, Absol naknek 0.37 0.00 - 0.40 10*3/ mm3 05/27 5:[address] [facility] Not Available Not Available 09/01/2024 16:28:05/27/1905/27/2024 CBC W Diffe renti al panel , metho d unspe cifie d - Blood basophils [#/volume] in blood by automated count 0.02 10*3/ mm3 low: 010*3/ mm3hig h: 0.210* 3/mm3 Basop hils, Absol naknek 0.02 0.00 - 0.20 10*3/ mm3 05/27 5:[address] [facility] Not Available Not Available 09/01/2024 16:28:05/27/19 25 05/27/2024 CBC W Diffe renti al panel , metho d unspe cifie d - Blood immature granulocytes [#/volume] in blood by automated count 0.03 10*3/ mm3 low: 010*3/ mm3hig h: 0.0510 *3/mm3 Immat ure Grans , Absol naknek 0.03 0.00 - 0.05 10*3/ mm3 05/27 5:[address] [facility] Not Available Not Available 09/01/2024 16:28:05/27/19 25 05/27/2024 CBC W Diffe renti al panel , metho d unspe cifie d - Blood nucleated erythrocytes /leukocytes [ratio] in blood by automated count 0 text: 0.0 - 0.2 /100 WBC nRBC 0.0 0.0 - 0.2 /100 WBC 05/27 5:[address] [facility] Not Available Not Available 09/01/2024 16:28:05/27/1905/27/2024 CBC W Diffe renti al panel , metho d unspe cifie d - Blood interpretati on and review of laboratory results Abnorm al Not Available Not Available 16:28:05/27/19 25 05/27/2024 Magne sium Ioniz ed [Mass /volu me] in Serum or Plasm a magnesium [mass/volume ] in serum or plasma 2 mg/dL low: 1.6mg/ dLhigh : 2.4mg/ dL Magne sium 2.0 1.6 - 2.4 mg/dL 05/27 6:04 AM EST [employer] [facility] Not Available Not Available 09/01/2024 16:28:05 05/27/19 25 05/27/2024 Magne sium Ioniz ed [Mass /volu me] in Serum or Plasm a interpretati on and review of laboratory results Normal Not Available Not Available 08/12 16:28:05 05/28/19 25 05/28/2024 Basic metab olic 2000 panel - Serum or Plasm a glucose [mass/volume ] in capillary blood by glucometer 210 mg/dL low: 70mg/d Lhigh: 130mg/ dL high Gluco se 210 (H) 70 - 130 mg/dL 05/28 8:09 PM EST [employer] [facility] Not Available Not Available 09/01/2024 16:28:06 05/28/19 25 05/28/2024 Basic metab olic 2000 panel - Serum or Plasm a interpretati on and review of laboratory results Abnorm al Not Available Not Available 16:28:06 05/28/19 25 05/28/2024 CBC W Diffe renti al panel , metho d unspe cifie d - Blood leukocytes [#/volume] corrected for nucleated erythrocytes in blood by automated count 10 10*3/ mm3 low: 3.410* 3/mm3h igh: 10.810 *3/mm3 WBC 10.00 3.40 - 10.80 10*3/ mm3 05/28 3:17 PM EST [employer] [facility] Not Available Not Available 09/01/2024 16:28:06 05/28/19 25 05/28/2024 CBC W Diffe renti al panel , metho d unspe cifie d - Blood erythrocytes [#/volume] in blood by automated count 4.97 10*6/ mm3 low: 4.1410 *6/mm3 high: 5.810* 6/mm3 RBC 4.97 4.14 - 5.80 10*6/ mm3 05/28 3:17 PM EST [employer] [facility] Not Available Not Available 09/01/2024 16:28:06 05/28/19 25 05/28/2024 CBC W Diffe renti al panel , metho d unspe cifie d - Blood hemoglobin [mass/volume ] in blood 11.9 g/dL low: 13g/dL high: 17.7g/ dL low Hemog lobin 11.9 (L) 13.0 - 17.7 g/dL 05/28 3:17 PM EST [facility] Not Available Not Available 09/01/2024 16:28:06 05/28/19 25 05/28/2024 CBC W Diffe renti al panel , metho d unspe cifie d - Blood hematocrit [volume fraction] of blood by automated count 38.9 % low: 37.5%h igh: 51% Hemat ocrit 38.9 37.5 - 51.0 % 05/28 3:17 PM EST [facility] Not Available Not Available 09/01/2024 16:28:05/28/19 25 05/28/2024 CBC W Diffe renti al panel , metho d unspe cifie d - Blood MCV [entitic mean volume] in red blood cells by automated count 78.3 fL low: 79fLhi gh: 97fL low MCV 78.3 (L) 79.0 - 97.0 fL 05/28 3:17 PM [facility] Not Available Not Available 09/01/2024 16:28:06 05/28/19 25 05/28/2024 CBC W Diffe renti al panel , metho d unspe cifie d - Blood MCH [entitic mass] by automated count 23.9 pg low: 26.6pg high: 33pg low MCH 23.9 (L) 26.6 - 33.0 pg 05/28 3:17 PM EST [employer] [facility] Not Available Not Available 09/01/2024 16:28:06 05/28/19 25 05/28/2024 CBC W Diffe renti al panel , metho d unspe cifie d - Blood MCHC [entitic mass/volume] in red blood cells by automated count 30.6 g/dL low: 31.5g/ dLhigh : 35.7g/ dL low MCHC 30.6 (L) 31.5 - 35.7 g/dL 05/28 3:17 PM [facility] Not Available Not Available 09/01/2024 16:28:06 05/28/19 25 05/28/2024 CBC W Anthony kumar al panel , metho d unspe cifie d - Blood erythrocyte [distwidth] in red blood cells by automated count 17.6 % low: 12.3%h igh: 15.4% high RDW 17.6 (H) 12.3 - 15.4 % 05/28 3:17 PM [facility] Not Available Not Available 09/01/2024 16:28:06 05/28/1905/28/2024 CBC W Anthony kumar al panel , metho d unspe cifie d - Blood RDW-SD 49.8 fL low: 37fLhi gh: 54fL RDW-S D 49.8 37.0 - 54.0 fl 05/28 3:17 PM [facility] Not Available Not Available 09/01/2024 16:28:06 05/28/19 25 05/28/2024 CBC W Anthony kumar al panel , metho d unspe cifie d - Blood platelet [entitic mean volume] in blood by automated count 9.2 fL low: 6fLhig h: 12fL MPV 9.2 6.0 - 12.0 fL 05/28 3:17 PM [facility] Not Available Not Available 09/01/2024 16:28:06 05/28/1905/28/2024 CBC W Anthony kumar al panel , metho d unspe cifie d - Blood platelets [#/volume] in blood by automated count 305 10*3/ mm3 low: 58935* 3/mm3h igh: 88313* 3/mm3 Plate lets 305 140 - 450 10*3/ mm3 05/28 3:17 PM EST [employer] [facility] Not Available Not Available 09/01/2024 16:28:06 05/28/19 25 05/28/2024 CBC W Diffe renti al panel , metho d unspe cifie d - Blood neutrophils/ leukocytes in blood by automated count 65.8 % low: 42.7%h igh: 76% Neutr ophil % 65.8 42.7 - 76.0 % 05/28 3:17 PM EST [employer] [facility] Not Available Not Available 09/01/2024 16:28:06 05/28/1905/28/2024 CBC W Diffe renti al panel , metho d unspe cifie d - Blood lymphocytes/ leukocytes in blood by automated count 20.5 % low: 19.6%h igh: 45.3% Lymph ocyte % 20.5 19.6 - 45.3 % 05/28 3:17 PM EST [facility] Not Available Not Available 09/01/2024 16:28:06 05/28/19 25 05/28/2024 CBC W Diffe renti al panel , metho d unspe cifie d - Blood monocytes/le ukocytes in blood by automated count 7.8 % low: 5%high : 12% Monoc yte % 7.8 5.0 - 12.0 % 05/28 3:17 PM EST [facility] Not Available Not Available 09/01/2024 16:28:06 05/28/19 25 05/28/2024 CBC W Diffe renti al panel , metho d unspe cifie d - Blood eosinophils/ leukocytes in blood by automated count 5.2 % low: 0.3%hi gh: 6.2% Eosin ophil % 5.2 0.3 - 6.2 % 05/28 3:[address] [facility] Not Available Not Available 09/01/2024 16:28:06 05/28/19 25 05/28/2024 CBC W Diffe renti al panel , metho d unspe cifie d - Blood basophils/le ukocytes in blood by automated count 0.4 % low: 0%high : 1.5% Basop hil % 0.4 0.0 - 1.5 % 05/28 3:17 PM EST [employer] [facility] Not Available Not Available 09/01/2024 16:28:06 05/28/19 25 05/28/2024 CBC W Diffe renti al panel , metho d unspe cifie d - Blood immature granulocytes /leukocytes in blood by automated count 0.3 % low: 0%high : 0.5% Immat ure Grans % 0.3 0.0 - 0.5 % 05/28 3:17 PM EST [employer] [facility] Not Available Not Available 09/01/2024 16:28:06 05/28/19 25 05/28/2024 CBC W Diffe renti al panel , metho d unspe cifie d - Blood neutrophils/ leukocytes in blood by automated count 6.58 10*3/ mm3 low: 1.710* 3/mm3h igh: 710*3/ mm3 Neutr ophil s, Absol naknek 6.58 1.70 - 7.00 10*3/ mm3 05/28 3:17 PM EST [employer] [facility] Not Available Not Available 09/01/2024 16:28:06 05/28/19 25 05/28/2024 CBC W Diffe renti al panel , metho d unspe cifie d - Blood lymphocytes [#/volume] in blood by automated count 2.05 10*3/ mm3 low: 0.710* 3/mm3h igh: 3.110* 3/mm3 Lymph ocyte s, Absol naknek 2.05 0.70 - 3.10 10*3/ mm3 05/28 3:17 PM EST [employer] [facility] Not Available Not Available 09/01/2024 16:28:06 05/28/19 25 05/28/2024 CBC W Diffe renti al panel , metho d unspe cifie d - Blood monocytes [#/volume] in blood by automated count 0.78 10*3/ mm3 low: 0.110* 3/mm3h igh: 0.910* 3/mm3 Monoc ytes, Absol naknek 0.78 0.10 - 0.90 10*3/ mm3 05/28 3:[address] [facility] [employer] Not Available Not Available 09/01/2024 16:28:06 05/28/19 25 05/28/2024 CBC W Diffe renti al panel , metho d unspe cifie d - Blood eosinophils [#/volume] in blood by automated count 0.52 10*3/ mm3 low: 010*3/ mm3hig h: 0.410* 3/mm3 high Eosin ophil s, Absol naknek 0.52 (H) 0.00 - 0.40 10*3/ mm3 05/28 3:17 PM [address] [facility] [email or web address] [facility] Not Available Not Available 09/01/2024 16:28:06 05/28/19 25 05/28/2024 CBC W Diffe renti al panel , metho d unspe cifie d - Blood basophils [#/volume] in blood by automated count 0.04 10*3/ mm3 low: 010*3/ mm3hig h: 0.210* 3/mm3 Basop hils, Absol naknek 0.04 0.00 - 0.20 10*3/ mm3 05/28 3:17 PM EST [facility] Not Available Not Available 09/01/2024 16:28:06 05/28/19 25 05/28/2024 CBC W Diffe renti al panel , metho d unspe cifie d - Blood immature granulocytes [#/volume] in blood by automated count 0.03 10*3/ mm3 low: 010*3/ mm3hig h: 0.0510 *3/mm3 Immat ure Grans , Absol naknek 0.03 0.00 - 0.05 10*3/ mm3 05/28 3:17 PM EST [facility] Not Available Not Available 09/01/2024 16:28:06 05/28/19 25 05/28/2024 CBC W Diffe renti al panel , metho d unspe cifie d - Blood nucleated erythrocytes /leukocytes [ratio] in blood by automated count 0 text: 0.0 - 0.2 /100 WBC nRBC 0.0 0.0 - 0.2 /100 WBC 05/28 3:[address] [facility] Not Available Not Available 09/01/2024 16:28:06 05/28/1905/28/2024 CBC W Diffe renti al panel , metho d unspe cifie d - Blood interpretati on and review of laboratory results Abnorm al Not Available Not Available 16:28:05/28/1905/28/2024 Phosp hate [Mass /volu me] in Serum or Plasm a phosphate [mass/volume ] in serum or plasma 5.4 mg/dL low: 2.5mg/ dLhigh : 4.5mg/ dL high Phosp horus 5.4 (H) 2.5 - 4.5 mg/dL 05/28 3:[address] [facility] Not Available Not Available 09/01/2024 16:28:05/28/1905/28/2024 Phosp hate [Mass /volu me] in Serum or Plasm a interpretati on and review of laboratory results Abnorm al Not Available Not Available 16:28:06 05/28/19 25 05/28/2024 Magne sium Ioniz ed [Mass /volu me] in Serum or Plasm a magnesium [mass/volume ] in serum or plasma 1.7 mg/dL low: 1.6mg/ dLhigh : 2.4mg/ dL Magne sium 1.7 1.6 - 2.4 mg/dL 05/28 3:[address] [facility] Not Available Not Available 09/01/2024 16:28:06 05/28/19 25 05/28/2024 Magne sium Ioniz ed [Mass /volu me] in Serum or Plasm a interpretati on and review of laboratory results Normal Not Available Not Available 08/12 16:28:06 05/28/19 25 05/28/2024 Basic metab olic 2000 panel - Serum or Plasm a glucose [mass/volume ] in capillary blood by glucometer 198 mg/dL low: 70mg/d Lhigh: 130mg/ dL high Gluco se 198 (H) 70 - 130 mg/dL 05/28 11:[address] [facility] Not Available Not Available 09/01/2024 16:28:06 05/28/19 25 05/28/2024 Basic metab olic 2000 panel - Serum or Plasm a interpretati on and review of laboratory results Abnorm al Not Available Not Available 16:28:06 05/28/19 25 05/28/2024 Basic metab olic 2000 panel - Serum or Plasm a glucose [mass/volume ] in capillary blood by glucometer 201 mg/dL low: 70mg/d Lhigh: 130mg/ dL high Gluco se 201 (H) 70 - 130 mg/dL 05/28 7:[address] [facility] Not Available Not Available 09/01/2024 16:28:05 05/28/19 25 05/28/2024 Basic metab olic 2000 panel - Serum or Plasm a interpretati on and review of laboratory results Abnorm al Not Available Not Available 16:28:05 05/29/19 25 05/29/2024 Basic metab olic 2000 panel - Serum or Plasm a glucose [mass/volume ] in capillary blood by glucometer 252 mg/dL low: 70mg/d Lhigh: 130mg/ dL high Gluco se 252 (H) 70 - 130 mg/dL 05/29 7:[address] [facility] Not Available Not Available 09/01/2024 16:28:06 05/29/19 25 05/29/2024 Basic metab olic 2000 panel - Serum or Plasm a interpretati on and review of laboratory results Abnorm al Not Available Not Available 16:28:06 05/29/19 25 05/29/2024 Basic metab olic 2000 panel - Serum or Plasm a glucose [mass/volume ] in capillary blood by glucometer 262 mg/dL low: 70mg/d Lhigh: 130mg/ dL high Gluco se 262 (H) 70 - 130 mg/dL 05/29 4:43 PM EST [employer] [facility] Not Available Not Available 09/01/2024 16:28:06 05/29/19 25 05/29/2024 Basic metab olic 2000 panel - Serum or Plasm a interpretati on and review of laboratory results Abnorm al Not Available Not Available 16:28:06 05/29/19 25 05/29/2024 Basic metab olic 2000 panel - Serum or Plasm a glucose [mass/volume ] in capillary blood by glucometer 238 mg/dL low: 70mg/d Lhigh: 130mg/ dL high Gluco se 238 (H) 70 - 130 mg/dL 05/29 11:50 AM EST [employer] [facility] Not Available Not Available 09/01/2024 16:28:06 05/29/19 25 05/29/2024 Basic metab olic 2000 panel - Serum or Plasm a interpretati on and review of laboratory results Abnorm al Not Available Not Available 16:28:06 05/29/19 25 05/29/2024 Basic metab olic 2000 panel - Serum or Plasm a glucose [mass/volume ] in capillary blood by glucometer 305 mg/dL low: 70mg/d Lhigh: 130mg/ dL high Gluco se 305 (H) 70 - 130 mg/dL 05/29 7:26 AM EST [employer] [facility] Not Available Not Available 09/01/2024 16:28:06 05/29/19 25 05/29/2024 Basic metab olic 2000 panel - Serum or Plasm a interpretati on and review of laboratory results Abnorm al Not Available Not Available 16:28:06 05/29/19 25 05/29/2024 Magne sium Ioniz ed [Mass /volu me] in Serum or Plasm a magnesium [mass/volume ] in serum or plasma 2.3 mg/dL low: 1.6mg/ dLhigh : 2.4mg/ dL Magne sium 2.3 1.6 - 2.4 mg/dL 05/29 6:54 AM EST [facility] Not Available Not Available 09/01/2024 16:28:06 05/29/19 25 05/29/2024 Bj Yao ed [Mass /volu me] in Serum or Plasm a interpretati on and review of laboratory results Normal Not Available Not Available 08/12 16:28:06 05/30/19 25 05/30/2024 Basic metab olic 2000 panel - Serum or Plasm a glucose [mass/volume ] in capillary blood by glucometer 188 mg/dL low: 70mg/d Lhigh: 130mg/ dL high Gluco se 188 (H) 70 - 130 mg/dL 05/30 8:08 PM EST [employer] [facility] Not Available Not Available 09/01/2024 16:28:06 05/30/19 25 05/30/2024 Basic metab olic 2000 panel - Serum or Plasm a interpretati on and review of laboratory results Abnorm al Not Available Not Available 16:28:06 05/30/19 25 05/30/2024 Basic metab olic 2000 panel - Serum or Plasm a glucose [mass/volume ] in capillary blood by glucometer 174 mg/dL low: 70mg/d Lhigh: 130mg/ dL high Gluco se 174 (H) 70 - 130 mg/dL 05/30 4:45 PM EST [employer] [facility] [employer] Not Available Not Available 09/01/2024 16:28:06 05/30/19 25 05/30/2024 Basic metab olic 2000 panel - Serum or Plasm a interpretati on and review of laboratory results Abnorm al Not Available Not Available 16:28:06 05/30/19 25 05/30/2024 Respi rator y patho gens DNA and RNA panel - Nasop haryn x by MARVIN with non-p robe detec tion adenovirus DNA [identifier] in specimen by MARVIN with probe detection Not Detect ed text: not detect ed ADENO VIRUS , PCR Not Detec contreras Not Detec contreras BIOFI RE FILMA RRAY 05/30 1:[address] [facility] Not Available Not Available 09/01/2024 16:28:06 05/30/19 25 05/30/2024 Respi rator y patho gens DNA and RNA panel - Nasop haryn x by MARVIN with non-p robe detec tion human coronavirus 229E RNA [presence] in specimen by MARVIN with probe detection Not Detect ed text: not detect ed Coron aviru s 229E Not Detec contreras Not Detec contreras BIOFI RE FILMA RRAY 05/30 1:[address] Not Available Not Available 09/01/2024 16:28:06 05/30/19 25 05/30/2024 Respi rator y patho gens DNA and RNA panel - Nasop haryn x by MARVIN with non-p robe detec tion human coronavirus hku1 RNA [presence] in specimen by MARVIN with probe detection Not Detect ed text: not detect ed Coron aviru s HKU1 Not Detec contreras Not Detec contreras BIOFI RE FILMA RRAY 05/30 1:[address] [facility] Not Available Not Available 09/01/2024 16:28:06 05/30/19 25 05/30/2024 Respi rator y patho gens DNA and RNA panel - Nasop haryn x by MARVIN with non-p robe detec tion human coronavirus nl63 RNA [presence] in specimen by MARVIN with probe detection Not Detect ed text: not detect ed Coron aviru s NL63 Not Detec contreras Not Detec contreras BIOFI RE FILMA RRAY 05/30 1:[address] [facility] Not Available Not Available 09/01/2024 16:28:06 05/30/19 25 05/30/2024 Respi rator y patho gens DNA and RNA panel - Nasop haryn x by MARVIN with non-p robe detec tion human coronavirus oc43 RNA [presence] in specimen by MARVIN with probe detection Not Detect ed text: not detect ed Coron aviru s OC43 Not Detec contreras Not Detec contreras BIOFI RE FILMA RRAY 05/30 1:[address] [facility] Not Available Not Available 09/01/2024 16:28:06 05/30/19 25 05/30/2024 Respi rator y patho gens DNA and RNA panel - Nasop haryn x by MARVIN with non-p robe detec tion sars-cov-2 (covid-19) RNA [presence] in nasopharynx by MARVIN with non-probe detection Not Detect ed text: not detect ed - ref. range COVID 19 Not Detec contreras Not Detec contreras - Ref. Range BIOFI RE FILMA RRAY 05/30 1:[address] [facility] Not Available Not Available 09/01/2024 16:28:06 05/30/1905/30/2024 Respi rator y patho gens DNA and RNA panel - Nasop haryn x by MARVIN with non-p robe detec tion human metapneumovi guillermo RNA [presence] in nasopharynx by MARVIN with non-probe detection Not Detect ed text: not detect ed Human Metap neumo virus Not Detec contreras Not Detec contreras BIOFI RE FILMA RRAY 05/30 1:[address] [facility] Not Available Not Available 09/01/2024 16:28:06 05/30/1905/30/2024 Respi rator y patho gens DNA and RNA panel - Nasop haryn x by MARVIN with non-p robe detec tion rhinovirus RNA [identifier] in specimen by MARVIN with probe detection Detect ed text: not detect ed abnormal Human Rhino virus /Ente rovir us Detec contreras (A) Not Detec contreras BIOFI RE FILMA RRAY 05/30 1:[address] [facility] Not Available Not Available 09/01/2024 16:28:06 05/30/19 25 05/30/2024 Respi rator y patho gens DNA and RNA panel - Nasop haryn x by MARVIN with non-p robe detec tion influenza virus A subtype [identifier] in specimen by MARVIN with probe detection Not Detect ed text: not detect ed Influ eliu A PCR Not Detec contreras Not Detec contreras BIOFI RE FILMA RRAY 05/30 1:[address] [facility] Not Available Not Available 09/01/2024 16:28:06 05/30/19 25 05/30/2024 Respi rator y patho gens DNA and RNA panel - Nasop haryn x by MARVIN with non-p robe detec tion influenza virus B RNA [presence] in isolate by MARVIN with probe detection Not Detect ed text: not detect ed Influ eliu B PCR Not Detec contreras Not Detec contreras BIOFI RE FILMA RRAY 05/30 1:[address] [facility] Not Available Not Available 09/01/2024 16:28:06 05/30/19 25 05/30/2024 Respi rator y patho gens DNA and RNA panel - Nasop haryn x by MARVIN with non-p robe detec tion parainfluenz a virus 1 RNA [presence] in isolate by MARVIN with probe detection Not Detect ed text: not detect ed Parai nflue nza Virus 1 Not Detec contreras Not Detec contreras BIOFI RE FILMA RRAY 05/30 1:[address] [facility] Not Available Not Available 09/01/2024 16:28:06 05/30/19 25 05/30/2024 Respi rator y patho gens DNA and RNA panel - Nasop haryn x by MARVIN with non-p robe detec tion parainfluenz a virus 2 RNA [presence] in specimen by MARVIN with probe detection Not Detect ed text: not detect ed Parai nflue nza Virus 2 Not Detec contreras Not Detec contreras BIOFI RE FILMA RRAY 05/30 1:[address] [facility] Not Available Not Available 09/01/2024 16:28:06 05/30/19 25 05/30/2024 Respi rator y patho gens DNA and RNA panel - Nasop haryn x by MARVIN with non-p robe detec tion parainfluenz a virus 3 RNA [presence] in nasopharynx by MARVIN with probe detection Not Detect ed text: not detect ed Parai nflue nza Virus 3 Not Detec contreras Not Detec contreras BIOFI RE FILMA RRAY 05/30 1:[address] [facility] Not Available Not Available 09/01/2024 16:28:06 05/30/19 25 05/30/2024 Respi rator y patho gens DNA and RNA panel - Nasop haryn x by MARVIN with non-p robe detec tion parainfluenz a virus 4 P gene [presence] in nasopharynx by MARVIN with probe detection Not Detect ed text: not detect ed Parai nflue nza Virus 4 Not Detec contreras Not Detec contreras BIOFI RE FILMA RRAY 05/30 1:[address] [facility] Not Available Not Available 09/01/2024 16:28:06 05/30/19 25 05/30/2024 Respi rator y patho gens DNA and RNA panel - Nasop haryn x by MARVIN with non-p robe detec tion respiratory syncytial virus RNA [presence] in nasopharynx by MARVIN with non-probe detection Not Detect ed text: not detect ed RSV, PCR Not Detec conterras Not Detec contreras BIOFI RE FILMA RRAY 05/30 1:[address] [facility] Not Available Not Available 09/01/2024 16:28:06 05/30/19 25 05/30/2024 Respi rator y patho gens DNA and RNA panel - Nasop haryn x by MARVIN with non-p robe detec tion bordetella pertussis DNA [presence] in specimen by MARVIN with probe detection Not Detect ed text: not detect ed Borde tella pertu ssis pcr Not Detec contreras Not Detec contreras BIOFI RE FILMA RRAY 05/30 1:[address] [facility] Not Available Not Available 09/01/2024 16:28:06 05/30/19 25 05/30/2024 Respi rator y patho gens DNA and RNA panel - Nasop haryn x by MARVIN with non-p robe detec tion bordetella parapertussi s DNA [presence] in specimen by MARVIN with probe detection Not Detect ed text: not detect ed Borde tella parap ertus sis PCR Not Detec contreras Not Detec contreras BIOFI RE FILMA RRAY 05/30 1:[address] [facility] Not Available Not Available 09/01/2024 16:28:06 05/30/19 25 05/30/2024 Respi rator y patho gens DNA and RNA panel - Nasop haryn x by MARVIN with non-p robe detec tion chlamydophil a pneumoniae DNA [presence] in nasopharynx by MARVIN with non-probe detection Not Detect ed text: not detect ed Chlam ydoph africa pneum oniae PCR Not Detec contreras Not Detec contreras BIOFI RE FILMA RRAY 05/30 1:[address] [facility] Not Available Not Available 09/01/2024 16:28:06 05/30/19 25 05/30/2024 Respi rator y patho gens DNA and RNA panel - Nasop haryn x by MARVIN with non-p robe detec tion mycoplasma pneumoniae IgG Ab [units/volum e] in serum by immunoassay Not Detect ed text: not detect ed Mycop lasma pneum o by PCR Not Detec contreras Not Detec contreras BIOFI RE FILMA RRAY 05/30 1:[address] Not Available Not Available 09/01/2024 16:28:06 05/30/19 25 05/30/2024 Respi rator y patho gens DNA and RNA panel - Nasop haryn x by MARVIN with non-p robe detec tion Unknown Analyte In the settin g of a positi ve respir atory panel with a viral infect ion PLUS a negati ve procal citoni n withou t other underl andrei concer n for bacter ial infect ion, consid er observ ing off antibi otics or discon tinuat ion of antibi otics and contin ue suppor tive care. If the respir atory panel is positi ve for atypic al bacter ial infect ion (Borde tella pertus sis, Chlamy dophil a pneumo niae, or Mycopl asma pneumo niae), consid er antibi otic de-esc alatio n to target atypic al bacter ial infect ion. In the setti ng of a posit minh respi rator y panel with a viral infec tion PLUS a negat minh proca lcito basim witho ut other under lying sylvia rn for bacte rial infec tion, consi noe obser ving off antib iotic s or disco ntinu ation of antib iotic s and yumiko nue suppo rtive care. If the respi rator y panel is posit minh for atypi jone bacte rial infec tion (Bord etell a pertu ssis, Chlam ydoph africa pneum oniae , or Mycop lasma pneum oniae ), consi noe antib iotic de-es calat ion to targe t atypi jone bacte rial infec tion. Not Available Not Available 09/01/2024 16:28:05/30/19 25 05/30/2024 Respi rator y patho gens DNA and RNA panel - Nasop haryn x by MARVIN with non-p robe detec tion interpretati on and review of laboratory results Abnorm al Not Available Not Available 16:28:05/30/19 25 05/30/2024 Basic metab olic 2000 panel - Serum or Plasm a glucose [mass/volume ] in capillary blood by glucometer 214 mg/dL low: 70mg/d Lhigh: 130mg/ dL high Gluco se 214 (H) 70 - 130 mg/dL 05/30 11:[address] [facility] Not Available Not Available 09/01/2024 16:28:06 05/30/19 25 05/30/2024 Basic metab olic 2000 panel - Serum or Plasm a interpretati on and review of laboratory results Abnorm al Not Available Not Available 16:28:06 05/30/19 25 05/30/2024 Basic metab olic 2000 panel - Serum or Plasm a glucose [mass/volume ] in capillary blood by glucometer 275 mg/dL low: 70mg/d Lhigh: 130mg/ dL high Gluco se 275 (H) 70 - 130 mg/dL 05/30 7:22 AM EST [employer] [facility] Not Available Not Available 09/01/2024 16:28:06 05/30/19 25 05/30/2024 Basic metab olic 2000 panel - Serum or Plasm a interpretati on and review of laboratory results Abnorm al Not Available Not Available 16:28:06 05/30/19 25 05/30/2024 Magne sium Ioniz ed [Mass /volu me] in Serum or Plasm a magnesium [mass/volume ] in serum or plasma 3.1 mg/dL low: 1.6mg/ dLhigh : 2.4mg/ dL high Magne sium 3.1 (H) 1.6 - 2.4 mg/dL 05/30 6:48 AM EST [employer] [facility] Not Available Not Available 09/01/2024 16:28:06 05/30/19 25 05/30/2024 Magne sium Ioniz ed [Mass /volu me] in Serum or Plasm a interpretati on and review of laboratory results Abnorm al Not Available Not Available 16:28:06 05/30/19 25 05/30/2024 Renal funct ion 1999 panel - Serum or Plasm a glucose [mass/volume ] in serum or plasma 214 mg/dL low: 65mg/d Lhigh: 99mg/d L high Gluco se 214 (H) 65 - 99 mg/dL 05/30 6:41 AM EST [employer] [facility] Not Available Not Available 09/01/2024 16:28:06 05/30/19 25 05/30/2024 Renal funct ion 1999 panel - Serum or Plasm a urea nitrogen [mass/volume ] in serum or plasma 29 mg/dL low: 8mg/dL high: 23mg/d L high BUN 29 (H) 8 - 23 mg/dL 05/30 6:41 AM EST [employer] [facility] Not Available Not Available 09/01/2024 16:28:06 05/30/19 25 05/30/2024 Renal funct ion 1999 panel - Serum or Plasm a creatinine [mass/volume ] in serum or plasma 1.51 mg/dL low: 0.76mg /dLhig h: 1.27mg /dL high Creat inine 1.51 (H) 0.76 - 1.27 mg/dL 05/30 6:41 AM EST [facility] Not Available Not Available 09/01/2024 16:28:06 05/30/19 25 05/30/2024 Renal funct ion 1999 panel - Serum or Plasm a sodium [moles/volum e] in serum or plasma 133 mmol/ L low: 136mmo l/Lhig h: 145mmo l/L low Sodiu m 133 (L) 136 - 145 mmol/ L 05/30 6:41 AM EST [facility] Not Available Not Available 09/01/2024 16:28:06 05/30/19 25 05/30/2024 Renal funct ion 1999 panel - Serum or Plasm a potassium [moles/volum e] in serum or plasma 3.3 mmol/ L low: 3.5mmo l/Lhig h: 5.2mmo l/L low Potas sium 3.3 (L) 3.5 - 5.2 mmol/ L 05/30 6:41 AM EST [facility] Not Available Not Available 09/01/2024 16:28:06 05/30/19 25 05/30/2024 Renal funct ion 1999 panel - Serum or Plasm a chloride [moles/volum e] in serum or plasma 84 mmol/ L low: 98mmol /Lhigh : 107mmo l/L low Chlor chava 84 (L) 98 - 107 mmol/ L 05/30 6:41 AM EST [employer] [facility] Not Available Not Available 09/01/2024 16:28:06 05/30/19 25 05/30/2024 Renal funct ion 1999 panel - Serum or Plasm a carbon dioxide, total [moles/volum e] in serum or plasma 40 mmol/ L low: 22mmol /Lhigh : 29mmol /L high CO2 40.0 (H) 22.0 - 29.0 mmol/ L 05/30 6:41 AM EST [employer] [facility] Not Available Not Available 09/01/2024 16:28:06 05/30/19 25 05/30/2024 Renal funct ion 1999 panel - Serum or Plasm a calcium [moles/volum e] in specimen 9.3 mg/dL low: 8.6mg/ dLhigh : 10.5mg /dL Calci um 9.3 8.6 - 10.5 mg/dL 05/30 6:41 AM EST [employer] [facility] Not Available Not Available 09/01/2024 16:28:06 05/30/19 25 05/30/2024 Renal funct ion 1999 panel - Serum or Plasm a albumin [mass/volume ] in serum or plasma 3.6 g/dL low: 3.5g/d Lhigh: 5.2g/d L Album in 3.6 3.5 - 5.2 g/dL 05/30 6:41 AM EST [employer] [facility] Not Available Not Available 09/01/2024 16:28:06 05/30/19 25 05/30/2024 Renal funct ion 1999 panel - Serum or Plasm a phosphate [mass/volume ] in serum or plasma 5.6 mg/dL low: 2.5mg/ dLhigh : 4.5mg/ dL high Phosp horus 5.6 (H) 2.5 - 4.5 mg/dL 05/30 6:41 AM EST [employer] [facility] [email or web address] [facility] Not Available Not Available 09/01/2024 16:28:06 05/30/19 25 05/30/2024 Renal funct ion 1999 panel - Serum or Plasm a anion gap in serum or plasma by calculated.3 ions 9 mmol/ L low: 5mmol/ Lhigh: 15mmol /L Anion Gap 9.0 5.0 - 15.0 mmol/ L 05/30 6:41 AM EST [facility] [employer] [facility] Not Available Not Available 09/01/2024 16:28:06 05/30/19 25 05/30/2024 Renal funct ion 1999 panel - Serum or Plasm a urea nitrogen/cre atinine [mass ratio] in serum or plasma 19.2 low: 7high: 25 BUN/C reati nine Ratio 19.2 7.0 - 25.0 05/30 6:41 AM EST [facility] Not Available Not Available 09/01/2024 16:28:06 05/30/19 25 05/30/2024 Renal funct ion 1999 panel - Serum or Plasm a glomerular filtration rate [volume rate/area] in serum, plasma or blood by creatinine-b ased formula (CKD-epi 2020)/1.73 sq M 51.9 mL/mi n/1.7 3 low: 60mL/m in/1.7 3 low eGFR 51.9 (L) >60.0 mL/mi n/1.7 3 05/30 6:41 AM EST [facility] Not Available Not Available 09/01/2024 16:28:06 05/30/19 25 05/30/2024 Renal funct ion 1999 panel - Serum or Plasm a Unknown Analyte GFR Catego kylee in Chroni c Kidney Diseas e (CKD) GFR Catego ry GFR (mL/mi n/1.73 ) Interp retati on G1 90 or greate r Normal or high (1) G2 60-89 Mild decrea se (1) G3a 45-59 Mild to modera te decrea se G3b 30-44 Modera te to severe decrea se G4 15-29 Severe decrea se G5 14 or less Kidney failur e (1)In the absenc e of eviden ce of kidney diseas e, neithe r GFR catego ry G1 or G2 fulfil l the criter ia for CKD. eGFR calcul ation 2020 CKD-EP I creati nine equati on, which does not includ e race as a factor GFR Categ ories in Chron ic Kidne y Disea se (CKD) GFR Categ ory GFR (mL/m in/1. 73) Inter preta tion G1 90 or great er Etta l or high (1) G2 60-89 Mild decre ase (1) G3a 45-59 Mild to moder ate decre ase G3b 30-44 Moder ate to sever e decre ase G4 15-29 Sever e decre ase G5 14 or less Kidne y failu re (1)In the absen ce of evide nce of kidne y disea se, neith er GFR categ ory G1 or G2 fulfi ll the crite b[place] for CKD. eGFR calcu latio n 2020 CKD-E PI creat inine equat ion, which does not inclu de race as a facto r Not Available Not Available 09/01/2024 16:28:06 05/30/19 25 05/30/2024 Renal funct ion 1999 panel - Serum or Plasm a interpretati on and review of laboratory results Abnorm al Not Available Not Available 16:28:06 05/31/19 25 05/31/2024 Basic metab olic 2000 panel - Serum or Plasm a glucose [mass/volume ] in capillary blood by glucometer 280 mg/dL low: 70mg/d Lhigh: 130mg/ dL high Gluco se 280 (H) 70 - 130 mg/dL 05/31 7:[address] [facility] Not Available Not Available 09/01/2024 16:28:07 05/31/19 25 05/31/2024 Basic metab olic 2000 panel - Serum or Plasm a interpretati on and review of laboratory results Abnorm al Not Available Not Available 16:28:07 05/31/19 25 05/31/2024 Basic metab olic 2000 panel - Serum or Plasm a glucose [mass/volume ] in capillary blood by glucometer 250 mg/dL low: 70mg/d Lhigh: 130mg/ dL high Gluco se 250 (H) 70 - 130 mg/dL 05/31 4:[address] Not Available Not Available 09/01/2024 16:28:07 05/31/19 25 05/31/2024 Basic metab olic 2000 panel - Serum or Plasm a interpretati on and review of laboratory results Abnorm al Not Available Not Available 16:28:07 05/31/19 25 05/31/2024 Basic metab olic 2000 panel - Serum or Plasm a glucose [mass/volume ] in capillary blood by glucometer 239 mg/dL low: 70mg/d Lhigh: 130mg/ dL high Gluco se 239 (H) 70 - 130 mg/dL 05/31 11:[address] Not Available Not Available 09/01/2024 16:28:07 05/31/19 25 05/31/2024 Basic metab olic 2000 panel - Serum or Plasm a interpretati on and review of laboratory results Abnorm al Not Available Not Available 16:28:07 05/31/19 25 05/31/2024 Basic metab olic 2000 panel - Serum or Plasm a glucose [mass/volume ] in capillary blood by glucometer 248 mg/dL low: 70mg/d Lhigh: 130mg/ dL high Gluco se 248 (H) 70 - 130 mg/dL 05/31 7:42 AM EST [facility] [employer] [facility] Not Available Not Available 09/01/2024 16:28:07 05/31/19 25 05/31/2024 Basic metab olic 2000 panel - Serum or Plasm a interpretati on and review of laboratory results Abnorm al Not Available Not Available 16:28:07 06/01/19 25 06/01/2024 Basic metab olic 2000 panel - Serum or Plasm a glucose [mass/volume ] in capillary blood by glucometer 255 mg/dL low: 70mg/d Lhigh: 130mg/ dL high Gluco se 255 (H) 70 - 130 mg/dL 06/01 8:[address] PM [address] [facility] Not Available Not Available 09/01/2024 16:28:07 06/01/19 25 06/01/2024 Basic metab olic 2000 panel - Serum or Plasm a interpretati on and review of laboratory results Abnorm al Not Available Not Available 16:28:07 06/01/19 25 06/01/2024 Basic metab olic 2000 panel - Serum or Plasm a glucose [mass/volume ] in capillary blood by glucometer 326 mg/dL low: 70mg/d Lhigh: 130mg/ dL high Gluco se 326 (H) 70 - 130 mg/dL 06/01 4:22 PM EST [facility] [employer] [facility] Not Available Not Available 09/01/2024 16:28:07 06/01/19 25 06/01/2024 Basic metab olic 2000 panel - Serum or Plasm a interpretati on and review of laboratory results Abnorm al Not Available Not Available 16:28:07 06/01/19 25 06/01/2024 Basic metab olic 2000 panel - Serum or Plasm a glucose [mass/volume ] in capillary blood by glucometer 432 mg/dL low: 70mg/d Lhigh: 130mg/ dL critical high Gluco se 432 (HH) 70 - 130 mg/dL 06/01 4:22 PM [address] [facility] Not Available Not Available 09/01/2024 16:28:07 06/01/19 25 06/01/2024 Basic metab olic 2000 panel - Serum or Plasm a interpretati on and review of laboratory results Abnorm al Not Available Not Available 16:28:07 06/01/19 25 06/01/2024 Basic metab olic 2000 panel - Serum or Plasm a glucose [mass/volume ] in capillary blood by glucometer 286 mg/dL low: 70mg/d Lhigh: 130mg/ dL high Gluco se 286 (H) 70 - 130 mg/dL 06/01 11:21 AM EST [facility] Not Available Not Available 09/01/2024 16:28:07 06/01/19 25 06/01/2024 Basic metab olic 2000 panel - Serum or Plasm a interpretati on and review of laboratory results Abnorm al Not Available Not Available 16:28:07 06/01/19 25 06/01/2024 Basic metab olic 2000 panel - Serum or Plasm a glucose [mass/volume ] in capillary blood by glucometer 227 mg/dL low: 70mg/d Lhigh: 130mg/ dL high Gluco se 227 (H) 70 - 130 mg/dL 06/01 7:[address] Not Available Not Available 09/01/2024 16:28:07 06/01/19 25 06/01/2024 Basic metab olic 2000 panel - Serum or Plasm a interpretati on and review of laboratory results Abnorm al Not Available Not Available 16:28:07 06/01/19 25 06/01/2024 Basic metab olic 1999 panel - Serum or Plasm a glucose [mass/volume ] in serum or plasma 234 mg/dL low: 65mg/d Lhigh: 99mg/d L high Gluco se 234 (H) 65 - 99 mg/dL 06/01 4:48 AM EST [email or web address] [facility] Not Available Not Available 09/01/2024 16:28:07 06/01/19 25 06/01/2024 Basic metab olic 2000 panel - Serum or Plasm a urea nitrogen [mass/volume ] in serum or plasma 33 mg/dL low: 8mg/dL high: 23mg/d L high BUN 33 (H) 8 - 23 mg/dL 06/01 4:48 AM EST [employer] [facility] Not Available Not Available 09/01/2024 16:28:07 06/01/19 25 06/01/2024 Basic metab olic 1999 panel - Serum or Plasm a creatinine [mass/volume ] in serum or plasma 1.33 mg/dL low: 0.76mg /dLhig h: 1.27mg /dL high Creat inine 1.33 (H) 0.76 - 1.27 mg/dL 06/01 4:48 AM EST [employer] LABOR ATORY Not Available Not Available 09/01/2024 16:28:07 06/01/19 25 06/01/2024 Basic metab olic 1999 panel - Serum or Plasm a sodium [moles/volum e] in serum or plasma 131 mmol/ L low: 136mmo l/Lhig h: 145mmo l/L low Sodiu m 131 (L) 136 - 145 mmol/ L 06/01 4:48 AM EST [email or web address] LABOR ATORY Not Available Not Available 09/01/2024 16:28:07 06/01/19 25 06/01/2024 Basic metab olic 1999 panel - Serum or Plasm a potassium [moles/volum e] in serum or plasma 3.8 mmol/ L low: 3.5mmo l/Lhig h: 5.2mmo l/L Potas sium 3.8 3.5 - 5.2 mmol/ L 06/01 4:48 AM EST [facility] LAB[facility] ATORY Not Available Not Available 09/01/2024 16:28:07 06/01/19 25 06/01/2024 Basic metab olic 1999 panel - Serum or Plasm a chloride [moles/volum e] in serum or plasma 87 mmol/ L low: 98mmol /Lhigh : 107mmo l/L low Chlor chava 87 (L) 98 - 107 mmol/ L 06/01 4:48 AM EST [employer] [facility] LABOR ATORY Not Available Not Available 09/01/2024 16:28:07 06/01/19 25 06/01/2024 Basic metab olic 1999 panel - Serum or Plasm a carbon dioxide, total [moles/volum e] in serum or plasma 37 mmol/ L low: 22mmol /Lhigh : 29mmol /L high CO2 37.0 (H) 22.0 - 29.0 mmol/ L 06/01 4:48 AM EST [employer] [facility] AT[facility] Not Available Not Available 09/01/2024 16:28:07 06/01/19 25 06/01/2024 Basic metab olic 1999 panel - Serum or Plasm a calcium [moles/volum e] in specimen 9.2 mg/dL low: 8.6mg/ dLhigh : 10.5mg /dL Calci um 9.2 8.6 - 10.5 mg/dL 06/01 4:48 AM EST [facility] Not Available Not Available 09/01/2024 16:28:07 06/01/19 25 06/01/2024 Basic metab olic 1999 panel - Serum or Plasm a urea nitrogen/cre atinine [mass ratio] in serum or plasma 24.8 low: 7high: 25 BUN/C reati nine Ratio 24.8 7.0 - 25.0 06/01 4:48 AM EST [employer] [facility] LAB[facility] AT[facility] Not Available Not Available 09/01/2024 16:28:07 06/01/19 25 06/01/2024 Basic metab olic 1999 panel - Serum or Plasm a anion gap in serum or plasma by calculated.3 ions 7 mmol/ L low: 5mmol/ Lhigh: 15mmol /L Anion Gap 7.0 5.0 - 15.0 mmol/ L 06/01 4:48 AM EST [employer] [facility] LAB[facility] AT[facility] Not Available Not Available 09/01/2024 16:28:07 06/01/19 25 06/01/2024 Basic metab olic 1999 panel - Serum or Plasm a glomerular filtration rate [volume rate/area] in serum, plasma or blood by creatinine-b ased formula (CKD-epi 2020)/1.73 sq M 60.4 mL/mi n/1.7 3 low: 60mL/m in/1.7 3 eGFR 60.4 >60.0 mL/mi n/1.7 3 06/01 4:48 AM EST [employer] [facility] LAB[facility] AT[facility] Not Available Not Available 09/01/2024 16:28:07 06/01/19 25 06/01/2024 Basic metab olic 2000 panel - Serum or Plasm a Unknown Analyte GFR Catego kylee in Chroni c Kidney Diseas e (CKD) GFR Catego ry GFR (mL/mi n/1.73 ) Interp retati on G1 90 or greate r Normal or high (1) G2 60-89 Mild decrea se (1) G3a 45-59 Mild to modera te decrea se G3b 30-44 Modera te to severe decrea se G4 15-29 Severe decrea se G5 14 or less Kidney failur e (1)In the absenc e of eviden ce of kidney diseas e, neithe r GFR catego ry G1 or G2 fulfil l the criter ia for CKD. eGFR calcul ation 2020 CKD-EP I creati nine equati on, which does not includ e race as a factor GFR Categ ories in Chron ic Kidne y Disea se (CKD) GFR Categ ory GFR (mL/m in/1. 73) Inter preta tion G1 90 or great er Etta l or high (1) G2 60-89 Mild decre ase (1) G3a 45-59 Mild to moder ate decre ase G3b 30-44 Moder ate to sever e decre ase G4 15-29 Sever e decre ase G5 14 or less Kidne y failu re (1)In the absen ce of evide nce of kidne y disea se, neith er GFR categ ory G1 or G2 fulfi ll the crite [place] for CKD. eGFR calcu latio n 2020 CKD-E PI creat inine equat ion, which does not inclu de race as a facto r Not Available Not Available 09/01/2024 16:28:07 06/01/19 25 06/01/2024 Basic metab olic 2000 panel - Serum or Plasm a interpretati on and review of laboratory results Abnorm al Not Available Not Available 16:28:07 06/02/19 25 06/02/2024 Basic metab olic 2000 panel - Serum or Plasm a glucose [mass/volume ] in capillary blood by glucometer 524 mg/dL low: 70mg/d Lhigh: 130mg/ dL critical high Gluco se 524 (HH) 70 - 130 mg/dL 06/02 7:[address] Not Available Not Available 09/01/2024 16:28:07 06/02/19 25 06/02/2024 Basic metab olic 2000 panel - Serum or Plasm a interpretati on and review of laboratory results Abnorm al Not Available Not Available 16:28:07 06/02/19 25 06/02/2024 Basic metab olic 2000 panel - Serum or Plasm a glucose [mass/volume ] in capillary blood by glucometer 452 mg/dL low: 70mg/d Lhigh: 130mg/ dL critical high Gluco se 452 (HH) 70 - 130 mg/dL 06/02 7:[address] Not Available Not Available 09/01/2024 16:28:07 06/02/19 25 06/02/2024 Basic metab olic 2000 panel - Serum or Plasm a interpretati on and review of laboratory results Abnorm al Not Available Not Available 16:28:07 06/02/19 25 06/02/2024 Basic metab olic 2000 panel - Serum or Plasm a glucose [mass/volume ] in capillary blood by glucometer 390 mg/dL low: 70mg/d Lhigh: 130mg/ dL high Gluco se 390 (H) 70 - 130 mg/dL 06/02 4:[address] [facility] Not Available Not Available 09/01/2024 16:28:07 06/02/19 25 06/02/2024 Basic metab olic 2000 panel - Serum or Plasm a interpretati on and review of laboratory results Abnorm al Not Available Not Available 16:28:07 06/02/19 25 06/02/2024 Basic metab olic 2000 panel - Serum or Plasm a glucose [mass/volume ] in capillary blood by glucometer 392 mg/dL low: 70mg/d Lhigh: 130mg/ dL high Gluco se 392 (H) 70 - 130 mg/dL 06/02 11:[address] Not Available Not Available 09/01/2024 16:28:07 06/02/19 25 06/02/2024 Basic metab olic 2000 panel - Serum or Plasm a interpretati on and review of laboratory results Abnorm al Not Available Not Available 16:28:07 06/02/19 25 06/02/2024 Basic metab olic 2000 panel - Serum or Plasm a glucose [mass/volume ] in capillary blood by glucometer 266 mg/dL low: 70mg/d Lhigh: 130mg/ dL high Gluco se 266 (H) 70 - 130 mg/dL 06/02 7:[address] [facility] Not Available Not Available 09/01/2024 16:28:07 06/02/19 25 06/02/2024 Basic metab olic 2000 panel - Serum or Plasm a interpretati on and review of laboratory results Abnorm al Not Available Not Available 16:28:07 0206/03/2024 Basic metab olic 2000 panel - Serum or Plasm a glucose [mass/volume ] in capillary blood by glucometer 314 mg/dL low: 70mg/d Lhigh: 130mg/ dL high Gluco se 314 (H) 70 - 130 mg/dL 06/03 7:[address] [facility] Not Available Not Available 09/01/2024 16:28:08 06/03/19 25 06/03/2024 Basic metab olic 2000 panel - Serum or Plasm a interpretati on and review of laboratory results Abnorm al Not Available Not Available 16:28:08 06/03/19 25 06/03/2024 CBC W Diffe renti al panel , metho d unspe cifie d - Blood leukocytes [#/volume] corrected for nucleated erythrocytes in blood by automated count 14.07 10*3/ mm3 low: 3.410* 3/mm3h igh: 10.810 *3/mm3 high WBC 14.07 (H) 3.40 - 10.80 10*3/ mm3 06/03 6:[address] [facility] Not Available Not Available 09/01/2024 16:28:08 06/03/1906/03/2024 CBC W Diffe renti al panel , metho d unspe cifie d - Blood erythrocytes [#/volume] in blood by automated count 4.93 10*6/ mm3 low: 4.1410 *6/mm3 high: 5.810* 6/mm3 RBC 4.93 4.14 - 5.80 10*6/ mm3 06/03 6:[address] [facility] Not Available Not Available 09/01/2024 16:28:08 06/03/19 25 06/03/2024 CBC W Diffe renti al panel , metho d unspe cifie d - Blood hemoglobin [mass/volume ] in blood 11.9 g/dL low: 13g/dL high: 17.7g/ dL low Hemog lobin 11.9 (L) 13.0 - 17.7 g/dL 06/03 6:[address] [facility] Not Available Not Available 09/01/2024 16:28:08 06/03/19 25 06/03/2024 CBC W Anthony kumar al panel , metho d unspe cifie d - Blood hematocrit [volume fraction] of blood by automated count 38.7 % low: 37.5%h igh: 51% Hemat ocrit 38.7 37.5 - 51.0 % 06/03 6:50 AM EST [facility] Not Available Not Available 09/01/2024 16:28:08 06/03/19 25 06/03/2024 CBC W Anthony kumar al panel , metho d unspe cifie d - Blood MCV [entitic mean volume] in red blood cells by automated count 78.5 fL low: 79fLhi gh: 97fL low MCV 78.5 (L) 79.0 - 97.0 fL 06/03 6:50 AM EST [facility] Not Available Not Available 09/01/2024 16:28:08 06/03/19 25 06/03/2024 CBC W Anthony kumar al panel , metho d unspe cifie d - Blood MCH [entitic mass] by automated count 24.1 pg low: 26.6pg high: 33pg low MCH 24.1 (L) 26.6 - 33.0 pg 06/03 6:50 AM EST [facility] Not Available Not Available 09/01/2024 16:28:08 06/03/19 25 06/03/2024 CBC W Anthony kumar al panel , metho d unspe cifie d - Blood MCHC [entitic mass/volume] in red blood cells by automated count 30.7 g/dL low: 31.5g/ dLhigh : 35.7g/ dL low MCHC 30.7 (L) 31.5 - 35.7 g/dL 06/03 6:50 AM EST [facility] Not Available Not Available 09/01/2024 16:28:08 06/03/19 25 06/03/2024 CBC W Anthony kumar al panel , metho d unspe cifie d - Blood erythrocyte [distwidth] in red blood cells by automated count 17.6 % low: 12.3%h igh: 15.4% high RDW 17.6 (H) 12.3 - 15.4 % 06/03 6:50 AM EST [employer] LABOR ATORY Not Available Not Available 09/01/2024 16:28:08 06/03/19 25 06/03/2024 CBC W Anthony kumar al panel , metho d unspe cifie d - Blood RDW-SD 48.8 fL low: 37fLhi gh: 54fL RDW-S D 48.8 37.0 - 54.0 fl 06/03 6:50 AM [employer] ATORY Not Available Not Available 09/01/2024 16:28:08 06/03/19 25 06/03/2024 CBC W Anthony kumar al panel , metho d unspe cifie d - Blood platelet [entitic mean volume] in blood by automated count 9.1 fL low: 6fLhig h: 12fL MPV 9.1 6.0 - 12.0 fL 06/03 6:50 AM EST [employer] ATORY Not Available Not Available 09/01/2024 16:28:08 06/03/19 25 06/03/2024 CBC W Anthony kumar al panel , metho d unspe cifie d - Blood platelets [#/volume] in blood by automated count 326 10*3/ mm3 low: 71655* 3/mm3h igh: 65513* 3/mm3 Plate lets 326 140 - 450 10*3/ mm3 06/03 6:50 AM [employer] ATORY Not Available Not Available 09/01/2024 16:28:08 06/03/19 25 06/03/2024 CBC W Diffnaren kumar al panel , metho d unspe cifie d - Blood neutrophils/ leukocytes in blood by automated count 78.7 % low: 42.7%h igh: 76% high Neutr ophil % 78.7 (H) 42.7 - 76.0 % 06/03 6:[address] Not Available Not Available 09/01/2024 16:28:08 06/03/19 25 06/03/2024 CBC W Diffe renti al panel , metho d unspe cifie d - Blood lymphocytes/ leukocytes in blood by automated count 14.6 % low: 19.6%h igh: 45.3% low Lymph ocyte % 14.6 (L) 19.6 - 45.3 % 06/03 6:[address] Not Available Not Available 09/01/2024 16:28:08 06/03/19 25 06/03/2024 CBC W Diffe renti al panel , metho d unspe cifie d - Blood monocytes/le ukocytes in blood by automated count 4.7 % low: 5%high : 12% low Monoc yte % 4.7 (L) 5.0 - 12.0 % 06/03 6:50 AM EST [employer] [facility] Not Available Not Available 09/01/2024 16:28:08 06/03/1906/03/2024 CBC W Diffe renti al panel , metho d unspe cifie d - Blood eosinophils/ leukocytes in blood by automated count 0.1 % low: 0.3%hi gh: 6.2% low Eosin ophil % 0.1 (L) 0.3 - 6.2 % 06/03 6:50 AM EST [employer] [facility] Not Available Not Available 09/01/2024 16:28:08 06/03/19 25 06/03/2024 CBC W Diffe renti al panel , metho d unspe cifie d - Blood basophils/le ukocytes in blood by automated count 0.3 % low: 0%high : 1.5% Basop hil % 0.3 0.0 - 1.5 % 06/03 6:50 AM EST [employer] [facility] Not Available Not Available 09/01/2024 16:28:08 06/03/19 06/03/2024 CBC W Diffe renti al panel , metho d unspe cifie d - Blood immature granulocytes /leukocytes in blood by automated count 1.6 % low: 0%high : 0.5% high Immat ure Grans % 1.6 (H) 0.0 - 0.5 % 06/03 6:[address] [employer] LAB[facility] AT[facility] Not Available Not Available 09/01/2024 16:28:08 06/03/19 25 06/03/2024 CBC W Diffe renti al panel , metho d unspe cifie d - Blood neutrophils/ leukocytes in blood by automated count 11.08 10*3/ mm3 low: 1.710* 3/mm3h igh: 710*3/ mm3 high Neutr ophil s, Absol naknek 11.08 (H) 1.70 - 7.00 10*3/ mm3 06/03 6:50 AM EST [facility] LABOR ATORY Not Available Not Available 09/01/2024 16:28:08 06/03/19 25 06/03/2024 CBC W Diffe renti al panel , metho d unspe cifie d - Blood lymphocytes [#/volume] in blood by automated count 2.05 10*3/ mm3 low: 0.710* 3/mm3h igh: 3.110* 3/mm3 Lymph ocyte s, Absol nak[place] 2.05 0.70 - 3.10 10*3/ mm3 06/03 6:50 AM EST [employer] [facility] LABOR ATORY Not Available Not Available 09/01/2024 16:28:08 06/03/19 25 06/03/2024 CBC W Diffe renti al panel , metho d unspe cifie d - Blood monocytes [#/volume] in blood by automated count 0.66 10*3/ mm3 low: 0.110* 3/mm3h igh: 0.910* 3/mm3 Monoc ytes, Absol naknek 0.66 0.10 - 0.90 10*3/ mm3 06/03 6:50 AM EST [facility] [employer] [facility] [employer] [email or web address] LAB[facility] ATORY Not Available Not Available 09/01/2024 16:28:08 06/03/19 25 06/03/2024 CBC W Diffe renti al panel , metho d unspe cifie d - Blood eosinophils [#/volume] in blood by automated count 0.02 10*3/ mm3 low: 010*3/ mm3hig h: 0.410* 3/mm3 Eosin ophil s, Absol [place]ak[place] 0.02 0.00 - 0.40 10*3/ mm3 06/03 6:[address] Not Available Not Available 09/01/2024 16:28:08 06/03/19 25 06/03/2024 CBC W Diffe renti al panel , metho d unspe cifie d - Blood basophils [#/volume] in blood by automated count 0.04 10*3/ mm3 low: 010*3/ mm3hig h: 0.210* 3/mm3 Basop hils, Absol nak[place] 0.04 0.00 - 0.20 10*3/ mm3 06/03 6:[address] Not Available Not Available 09/01/2024 16:28:08 06/03/19 25 06/03/2024 CBC W Diffe renti al panel , metho d unspe cifie d - Blood immature granulocytes [#/volume] in blood by automated count 0.22 10*3/ mm3 low: 010*3/ mm3hig h: 0.0510 *3/mm3 high Immat ure Grans , Absol naknek 0.22 (H) 0.00 - 0.05 10*3/ mm3 06/03 6:[address] Not Available Not Available 09/01/2024 16:28:08 06/03/19 25 06/03/2024 CBC W Diffe renti al panel , metho d unspe cifie d - Blood nucleated erythrocytes /leukocytes [ratio] in blood by automated count 0 text: 0.0 - 0.2 /100 WBC nRBC 0.0 0.0 - 0.2 /100 WBC 06/03 6:[address] Not Available Not Available 09/01/2024 16:28:08 06/03/19 25 06/03/2024 CBC W Diffe renti al panel , metho d unspe cifie d - Blood interpretati on and review of laboratory results Abnorm al Not Available Not Available 16:28:08 06/03/19 25 06/03/2024 Magne sium Ioniz ed [Mass /volu me] in Serum or Plasm a magnesium [mass/volume ] in serum or plasma 2.5 mg/dL low: 1.6mg/ dLhigh : 2.4mg/ dL high Magne sium 2.5 (H) 1.6 - 2.4 mg/dL 06/03 7:08 AM EST [employer] LABOR ATORY Not Available Not Available 09/01/2024 16:28:08 06/03/19 25 06/03/2024 Magne sium Ioniz ed [Mass /volu me] in Serum or Plasm a interpretati on and review of laboratory results Abnorm al Not Available Not Available 16:28:08 06/03/19 25 06/03/2024 Basic metab olic 2000 panel - Serum or Plasm a glucose [mass/volume ] in serum or plasma 330 mg/dL low: 65mg/d Lhigh: 99mg/d L high Gluco se 330 (H) 65 - 99 mg/dL 06/03 7:08 AM [employer] LABOR ATORY Not Available Not Available 09/01/2024 16:28:08 06/03/19 25 06/03/2024 Basic metab olic 2000 panel - Serum or Plasm a urea nitrogen [mass/volume ] in serum or plasma 30 mg/dL low: 8mg/dL high: 23mg/d L high BUN 30 (H) 8 - 23 mg/dL 06/03 7:08 AM EST [employer] ATORY Not Available Not Available 09/01/2024 16:28:08 06/03/19 25 06/03/2024 Basic metab olic 2000 panel - Serum or Plasm a creatinine [mass/volume ] in serum or plasma 1.11 mg/dL low: 0.76mg /dLhig h: 1.27mg /dL Creat inine 1.11 0.76 - 1.27 mg/dL 06/03 7:08 AM EST [employer] LABOR ATORY Not Available Not Available 09/01/2024 16:28:08 06/03/19 25 06/03/2024 Basic metab olic 1999 panel - Serum or Plasm a sodium [moles/volum e] in serum or plasma 133 mmol/ L low: 136mmo l/Lhig h: 145mmo l/L low Sodiu m 133 (L) 136 - 145 mmol/ L 06/03 7:08 AM EST [employer] LABOR ATORY Not Available Not Available 09/01/2024 16:28:08 06/03/19 25 06/03/2024 Basic metab olic 1999 panel - Serum or Plasm a potassium [moles/volum e] in serum or plasma 4.3 mmol/ L low: 3.5mmo l/Lhig h: 5.2mmo l/L Potas sium 4.3 3.5 - 5.2 mmol/ L 06/03 7:08 AM [facility] LABOR ATORY Not Available Not Available 09/01/2024 16:28:08 06/03/19 25 06/03/2024 Basic metab olic 1999 panel - Serum or Plasm a chloride [moles/volum e] in serum or plasma 89 mmol/ L low: 98mmol /Lhigh : 107mmo l/L low Chlor chava 89 (L) 98 - 107 mmol/ L 06/03 7:08 AM EST [employer] LABOR ATORY Not Available Not Available 09/01/2024 16:28:08 06/03/19 25 06/03/2024 Basic metab olic 1999 panel - Serum or Plasm a carbon dioxide, total [moles/volum e] in serum or plasma 35 mmol/ L low: 22mmol /Lhigh : 29mmol /L high CO2 35.0 (H) 22.0 - 29.0 mmol/ L 06/03 7:08 AM EST [employer] LABOR ATORY Not Available Not Available 09/01/2024 16:28:08 06/03/19 25 06/03/2024 Basic metab olic 1999 panel - Serum or Plasm a calcium [moles/volum e] in specimen 9.4 mg/dL low: 8.6mg/ dLhigh : 10.5mg /dL Calci um 9.4 8.6 - 10.5 mg/dL 06/03 7:08 AM EST [employer] ATORY Not Available Not Available 09/01/2024 16:28:08 06/03/19 25 06/03/2024 Basic metab olic 1999 panel - Serum or Plasm a urea nitrogen/cre atinine [mass ratio] in serum or plasma 27 low: 7high: 25 high BUN/C reati nine Ratio 27.0 (H) 7.0 - 25.0 06/03 7:08 AM [employer] ATORY Not Available Not Available 09/01/2024 16:28:08 06/03/19 25 06/03/2024 Basic metab olic 2000 panel - Serum or Plasm a anion gap in serum or plasma by calculated.3 ions 9 mmol/ L low: 5mmol/ Lhigh: 15mmol /L Anion Gap 9.0 5.0 - 15.0 mmol/ L 06/03 7:08 AM [employer] ATORY Not Available Not Available 09/01/2024 16:28:08 06/03/19 25 06/03/2024 Basic metab olic 2000 panel - Serum or Plasm a glomerular filtration rate [volume rate/area] in serum, plasma or blood by creatinine-b ased formula (CKD-epi 2020)/1.73 sq M 75.1 mL/mi n/1.7 3 low: 60mL/m in/1.7 3 eGFR 75.1 >60.0 mL/mi n/1.7 3 06/03 7:08 AM [employer] ATORY Not Available Not Available 09/01/2024 16:28:08 06/03/19 25 06/03/2024 Basic metab olic 2000 panel - Serum or Plasm a Unknown Analyte GFR Catego kylee in Chroni c Kidney Diseas e (CKD) GFR Catego ry GFR (mL/mi n/1.73 ) Interp retati on G1 90 or greate r Normal or high (1) G2 60-89 Mild decrea se (1) G3a 45-59 Mild to modera te decrea se G3b 30-44 Modera te to severe decrea se G4 15-29 Severe decrea se G5 14 or less Kidney failur e (1)In the absenc e of eviden ce of kidney diseas e, neithe r GFR catego ry G1 or G2 fulfil l the criter ia for CKD. eGFR calcul ation 2020 CKD-EP I creati nine equati on, which does not includ e race as a factor GFR Categ ories in Chron ic Kidne y Disea se (CKD) GFR Categ ory GFR (mL/m in/1. 73) Inter preta tion G1 90 or great er Etta l or high (1) G2 60-89 Mild decre ase (1) G3a 45-59 Mild to moder ate decre ase G3b 30-44 Moder ate to sever e decre ase G4 15-29 Sever e decre ase G5 14 or less Kidne y failu re (1)In the absen ce of evide nce of kidne y disea se, neith er GFR categ ory G1 or G2 fulfi ll the crite [place] for CKD. eGFR calcu latio n 2020 CKD-E PI creat inine equat ion, which does not inclu de race as a facto r Not Available Not Available 09/01/2024 16:28:08 06/03/19 25 06/03/2024 Basic metab olic 1999 panel - Serum or Plasm a interpretati on and review of laboratory results Abnorm al Not Available Not Available 16:28:08 06/03/19 25 06/03/2024 Basic metab olic 2000 panel - Serum or Plasm a glucose [mass/volume ] in capillary blood by glucometer 355 mg/dL low: 70mg/d Lhigh: 130mg/ dL high Gluco se 355 (H) 70 - 130 mg/dL 06/03 12:[address] [facility] Not Available Not Available 09/01/2024 16:28:07 06/03/19 25 06/03/2024 Basic metab olic 2000 panel - Serum or Plasm a interpretati on and review of laboratory results Abnorm al Not Available Not Available 16:28:07 06/30/19 25 06/29/2024 Basic metab olic 2000 panel - Serum or Plasm a glucose [mass/volume ] in capillary blood by glucometer 272 mg/dL low: 70mg/d Lhigh: 130mg/ dL high Gluco se 272 (H) 70 - 130 mg/dL 06/29 10:[address] Not Available Not Available 09/01/2024 16:25:56 06/30/19 25 06/29/2024 Basic metab olic 2000 panel - Serum or Plasm a interpretati on and review of laboratory results Abnorm al Not Available Not Available 16:25:56 06/30/19 25 06/29/2024 Basic metab olic 2000 panel - Serum or Plasm a glucose [mass/volume ] in capillary blood by glucometer 238 mg/dL low: 70mg/d Lhigh: 130mg/ dL high Gluco se 238 (H) 70 - 130 mg/dL 06/29 8:[address] [facility] Not Available Not Available 09/01/2024 16:25:56 06/30/19 25 06/29/2024 Basic metab olic 2000 panel - Serum or Plasm a interpretati on and review of laboratory results Abnorm al Not Available Not Available 16:25:56 06/30/19 25 06/29/2024 Basic metab olic 2000 panel - Serum or Plasm a glucose [mass/volume ] in capillary blood by glucometer 298 mg/dL low: 70mg/d Lhigh: 130mg/ dL high Gluco se 298 (H) 70 - 130 mg/dL 06/29 6:[address] [facility] Not Available Not Available 09/01/2024 16:25:56 06/30/19 25 06/29/2024 Basic metab olic 2000 panel - Serum or Plasm a interpretati on and review of laboratory results Abnorm al Not Available Not Available 16:25:56 06/30/19 25 06/29/2024 Basic metab olic 1999 panel - Serum or Plasm a glucose [mass/volume ] in capillary blood by glucometer 299 mg/dL low: 70mg/d Lhigh: 130mg/ dL high Gluco se 299 (H) 70 - 130 mg/dL 06/29 4:38 PM EDT [facility] Not Available Not Available 09/01/2024 16:25:56 06/30/19 25 06/29/2024 Basic metab olic 2000 panel - Serum or Plasm a interpretati on and review of laboratory results Abnorm al Not Available Not Available 16:25:56 06/30/19 25 06/29/2024 C react minh prote in [Mass /volu me] in Serum or Plasm a C reactive protein [mass/volume ] in serum or plasma 6.38 mg/dL low: 0mg/dL high: 0.5mg/ dL high [place] ctive Prote in 6.38 (H) 0.00 - 0.50 mg/dL 06/29 4:41 PM EDT [facility] Not Available Not Available 09/01/2024 16:25:56 06/30/19 25 06/29/2024 C react minh prote in [Mass /volu me] in Serum or Plasm a interpretati on and review of laboratory results Abnorm al Not Available Not Available 16:25:56 06/30/19 25 06/29/2024 Tropo basim T.car diac [Mass /volu me] in Serum or Plasm a by High sensi tivit y metho d hs troponin T 29 NG/L high: 22NG/L high HS Tropo basim T 29 (H) <22 ng/L 06/29 1:43 PM EDT [facility] Not Available Not Available 09/01/2024 16:25:56 06/30/19 25 06/29/2024 Tropo basim T.car diac [Mass /volu me] in Serum or Plasm a by High sensi tivit y metho d troponin T numeric delta 0 NG/L Tropo basim T Numer ic Delta 0 ng/L 06/29 1:[address] [facility] Not Available Not Available 09/01/2024 16:25:56 06/30/19 25 06/29/2024 Tropo basim T.car diac [Mass /volu me] in Serum or Plasm a by High sensi tivit y metho d troponin T % delta 0 text: abnorm al if >/= 20% Tropo basim T % Delta 0 Abnor mal if >/= 20% 06/29 1:[address] [facility] Not Available Not Available 09/01/2024 16:25:56 06/30/19 25 06/29/2024 Tropo basim T.car diac [Mass /volu me] in Serum or Plasm a by High sensi tivit y metho d Unknown Analyte High Sensit minh Tropon in T Refere nce Range: <14.0 ng/L- Negati ve Female for AMI <22.0 ng/L- Negati ve Male for AMI >=14 - Abnorm al Female indica ting possib le myocar dial injury . >=22 - Abnorm al Male indica ting possib le myocar dial injury . Clinic ians would have to utiliz e clinic al acumen , EKG, Tropon in, and serial change s to determ ine if it is an Acute Myocar dial Infarc tion or myocar dial injury due to an underl andrei chroni c condit ion. High Sensi tive Tropo basim T Refer ence Range : <14.0 ng/L- Negat minh Femal e for AMI <22.0 ng/L- Negat minh Male for AMI >=14 - Abnor mal Femal e indic ating possi ble myoca rdial injur y. >=22 - Abnor mal Male indic ating possi ble myoca rdial injur y. Clini cians would have to utili ze clini jone acume n, EKG, Tropo basim, and seria l manzanares es to deter mine if it is an Acute Myoca rdial Infar ction or myoca rdial injur y due to an under lying chron ic condi tion. Not Available Not Available 09/01/2024 16:25:56 06/30/19 25 06/29/2024 Tropo basim T.car diac [Mass /volu me] in Serum or Plasm a by High sensi tivit y metho d interpretati on and review of laboratory results Abnorm al Not Available Not Available 16:25:56 06/30/19 25 07/01/2024 Strep tococ cus.b eta-h emoly tic [Pres ence] in Throa t by Organ ism speci fic cultu re bacteria identified in specimen by aerobe culture No Beta Hemoly tic Strept ococcu s Isolat ed at 2 days Throa t Cultu re, Beta Strep No Beta Hemol ytic Strep tococ cus [place] contreras at 2 days LENARD 07/01 11:[address] [facility] Not Available Not Available 09/01/2024 16:25:56 06/30/19 25 07/01/2024 Strep tococ cus.b eta-h emoly tic [Pres ence] in Throa t by Organ ism speci fic cultu re Unknown Analyte Group A Strep incide nce is low in adults . Positi ve cultur e for Beta hemoly tic Strept ococcu s specie s can reflec t coloni zation and not true infect ion. Please correl ate clinic ally. Group A Strep incid ence is low in adult s. Posit minh cultu re for Beta hemol ytic Strep tococ cus speci es can refle ct colon izati on and not true infec tion. Pleas e corre late clini mateus . Not Available Not Available 09/01/2024 16:25:56 06/30/19 25 07/01/2024 Strep tococ cus.b eta-h emoly tic [Pres ence] in Throa t by Organ ism speci fic cultu re interpretati on and review of laboratory results Normal Not Available Not Available 08/12 16:25:56 06/30/19 25 06/29/2024 Strep tococ cus pyoge cristobal Ag [Pres ence] in Throa t streptococcu s pyogenes Ag [presence] in throat Negati ve text: negati ve Strep A Ag Negat minh Negat minh DISK DIFFU ELOY 06/29 12:[address] [facility] Not Available Not Available 09/01/2024 16:25:56 06/30/19 25 06/29/2024 Strep tococ cus pyoge cristobal Ag [Pres ence] in [facility] Unknown Analyte Test perfor med by Direct Antige n Testin g. Test perfo rmed by Dire t Antig en Testi ng. Not Available Not Available 09/01/2024 16:25:56 06/30/19 25 06/29/2024 Strep tococ cus pyoge cristobal Ag [Pres ence] in [facility] interpretati on and review of laboratory results Normal Not Available Not Available 08/12 16:25:56 06/30/19 25 06/29/2024 Urina lysis macro (dips tick) panel - Urine color of urine Yellow text: yellow , straw Color , UA Yello w Yello w, Straw 06/29 12:[address] [facility] Not Available Not Available 09/01/2024 16:25:56 06/30/19 25 06/29/2024 Urina lysis macro (dips tick) panel - Urine clarity of urine Clear text: clear Appea emma , UA Clear Clear 06/29 12:[address] [facility] Not Available Not Available 09/01/2024 16:25:56 06/30/19 25 06/29/2024 Urina lysis macro (dips tick) panel - Urine pH of urine by automated test strip 7 low: 5high: 8 pH, UA 7.0 5.0 - 8.0 06/29 12:[address] [facility] Not Available Not Available 09/01/2024 16:25:56 06/30/19 25 06/29/2024 Urina lysis macro (dips tick) panel - Urine specific gravity of urine by test strip 1.018 low: 1.001h igh: 1.03 Speci fic Gravi ty, UA 1.018 1.001 - 1.030 06/29 12:20 PM EDT [facility] [place] [facility] Not Available Not Available 09/01/2024 16:25:56 06/30/19 25 06/29/2024 Urina lysis macro (dips tick) panel - Urine glucose [mass/volume ] in urine by test strip 500 mg/dL (2+) text: negati ve abnormal Gluco se, UA 500 mg/dL (2+) (A) Negat minh 06/29 12:20 PM EDT [facility] [place] [facility] Not Available Not Available 09/01/2024 16:25:56 06/30/19 25 06/29/2024 Urina lysis macro (dips tick) panel - Urine ketones [presence] in urine by test strip Negati ve text: negati ve [place] es, UA Negat minh Negat minh 06/29 12:20 PM EDT [facility] Not Available Not Available 09/01/2024 16:25:56 06/30/19 25 06/29/2024 Urina lysis macro (dips tick) panel - Urine bilirubin.to alberto [presence] in urine by test strip Negati ve text: negati ve Bilir ubin, UA Negat minh Negat minh 06/29 12:20 PM EDT [facility] [place] [facility] Not Available Not Available 09/01/2024 16:25:56 06/30/19 25 06/29/2024 Urina lysis macro (dips tick) panel - Urine hemoglobin [presence] in urine by automated test strip Negati ve text: negati ve Blood , UA Negat minh Negat minh 06/29 12:20 PM EDT [employer] [facility] Not Available Not Available 09/01/2024 16:25:56 06/30/19 25 06/29/2024 Urina lysis macro (dips tick) panel - Urine protein [presence] in urine by test strip 30 mg/dL (1+) text: negati ve abnormal Prote in, UA 30 mg/dL (1+) (A) Negat minh 06/29 12:20 PM EDT [facility] Not Available Not Available 09/01/2024 16:25:56 06/30/19 25 06/29/2024 Urina lysis macro (dips tick) panel - Urine leukocyte esterase [presence] in urine by automated test strip Negati ve text: negati ve Leuk Kacey ase, UA Negat minh Negat minh 06/29 12:20 PM EDT [facility] Not Available Not Available 09/01/2024 16:25:56 06/30/19 25 06/29/2024 Urina lysis macro (dips tick) panel - Urine nitrite [presence] in urine by test strip Negati ve text: negati ve Nitri te, UA Negat minh Negat minh 06/29 12:20 PM EDT [facility] [place] [facility] Not Available Not Available 09/01/2024 16:25:56 06/30/19 25 06/29/2024 Urina lysis macro (dips tick) panel - Urine urobilinogen [presence] in urine by test strip 0.2 E.U./d L text: 0.2 - 1.0 E.U./d L Urobi linog en, UA 0.2 E.U./ dL 0.2 - 1.0 E.U./ dL 06/29 12:20 PM EDT [facility] Not Available Not Available 09/01/2024 16:25:56 06/30/19 25 06/29/2024 Urina lysis macro (dips tick) panel - Urine Unknown Analyte In absenc e of clinic al sympto ms, the presen ce of pyuria , bacter ia, and/or nitrit es on the urinal ysis result does not correl ate with infect ion. In absen ce of clini jone sympt oms, the prese nce of pyuri a, bacte bethany, and/o r nitri elizabeth on the urina lysis resul t does not corre late with infec tion. Not Available Not Available 09/01/2024 16:25:56 06/30/19 25 06/29/2024 Urina lysis macro (dips tick) panel - Urine interpretati on and review of laboratory results Abnorm al Not Available Not Available 16:25:56 06/30/19 25 06/29/2024 Respi rator y patho gens DNA and RNA panel - Nasop haryn x by MARVIN with non-p robe detec tion adenovirus DNA [identifier] in specimen by MARVIN with probe detection Not Detect ed text: not detect ed ADENO VIRUS , PCR Not Detec contreras Not Detec contreras BIOFI RE FILMA RRAY 06/29 1:[address] [facility] Not Available Not Available 09/01/2024 16:25:56 06/30/19 25 06/29/2024 Respi rator y patho gens DNA and RNA panel - Nasop haryn x by MARVIN with non-p robe detec tion human coronavirus 229E RNA [presence] in specimen by MARVIN with probe detection Not Detect ed text: not detect ed Coron aviru s 229E Not Detec contreras Not Detec contreras BIOFI RE FILMA RRAY 06/29 1:[address] [facility] Not Available Not Available 09/01/2024 16:25:56 06/30/19 25 06/29/2024 Respi rator y patho gens DNA and RNA panel - Nasop haryn x by MARVIN with non-p robe detec tion human coronavirus hku1 RNA [presence] in specimen by MARVIN with probe detection Not Detect ed text: not detect ed Coron aviru s HKU1 Not Detec contreras Not Detec contreras BIOFI RE FILMA RRAY 06/29 1:[address] [facility] Not Available Not Available 09/01/2024 16:25:56 06/30/19 25 06/29/2024 Respi rator y patho gens DNA and RNA panel - Nasop haryn x by MARVIN with non-p robe detec tion human coronavirus nl63 RNA [presence] in specimen by MARVIN with probe detection Not Detect ed text: not detect ed Coron aviru s NL63 Not Detec contreras Not Detec contreras BIOFI RE FILMA RRAY 06/29 1:[address] [facility] Not Available Not Available 09/01/2024 16:25:56 06/30/19 25 06/29/2024 Respi rator y patho gens DNA and RNA panel - Nasop haryn x by MARVIN with non-p robe detec tion human coronavirus oc43 RNA [presence] in specimen by MARVIN with probe detection Not Detect ed text: not detect ed Coron aviru s OC43 Not Detec contreras Not Detec contreras BIOFI RE FILMA RRAY 06/29 1:[address] [facility] Not Available Not Available 09/01/2024 16:25:56 06/30/19 25 06/29/2024 Respi rator y patho gens DNA and RNA panel - Nasop haryn x by MARVIN with non-p robe detec tion sars-cov-2 (covid-19) RNA [presence] in nasopharynx by MARVIN with non-probe detection Not Detect ed text: not detect ed - ref. range COVID 19 Not Detec contreras Not Detec contreras - Ref. Range BIOFI RE FILMA RRAY 06/29 1:[address] [facility] Not Available Not Available 09/01/2024 16:25:56 06/30/19 25 06/29/2024 Respi rator y patho gens DNA and RNA panel - Nasop haryn x by MARVIN with non-p robe detec tion human metapneumovi guillermo RNA [presence] in nasopharynx by MARVIN with non-probe detection Not Detect ed text: not detect ed Human Metap neumo virus Not Detec contreras Not Detec contreras BIOFI RE FILMA RRAY 06/29 1:[address] [facility] Not Available Not Available 09/01/2024 16:25:56 06/30/19 25 06/29/2024 Respi rator y patho gens DNA and RNA panel - Nasop haryn x by MARVIN with non-p robe detec tion rhinovirus RNA [identifier] in specimen by MARVIN with probe detection Not Detect ed text: not detect ed Human Rhino virus /Ente rovir us Not Detec contreras Not Detec contreras BIOFI RE FILMA RRAY 06/29 1:[address] [facility] Not Available Not Available 09/01/2024 16:25:56 06/30/19 25 06/29/2024 Respi rator y patho gens DNA and RNA panel - Nasop haryn x by MARVIN with non-p robe detec tion influenza virus A subtype [identifier] in specimen by MARVIN with probe detection Not Detect ed text: not detect ed Influ eliu A PCR Not Detec contreras Not Detec contreras BIOFI RE FILMA RRAY 06/29 1:[address] [facility] Not Available Not Available 09/01/2024 16:25:56 06/30/19 25 06/29/2024 Respi rator y patho gens DNA and RNA panel - Nasop haryn x by MARVIN with non-p robe detec tion influenza virus B RNA [presence] in isolate by MARVIN with probe detection Not Detect ed text: not detect ed Influ eliu B PCR Not Detec contreras Not Detec contreras BIOFI RE FILMA RRAY 06/29 1:[address] [facility] Not Available Not Available 09/01/2024 16:25:56 06/30/19 25 06/29/2024 Respi rator y patho gens DNA and RNA panel - Nasop haryn x by MARVIN with non-p robe detec tion parainfluenz a virus 1 RNA [presence] in isolate by MARVIN with probe detection Not Detect ed text: not detect ed Parai nflue nza Virus 1 Not Detec contreras Not Detec contreras BIOFI RE FILMA RRAY 06/29 1:[address] [facility] Not Available Not Available 09/01/2024 16:25:56 06/30/19 25 06/29/2024 Respi rator y patho gens DNA and RNA panel - Nasop haryn x by MARVIN with non-p robe detec tion parainfluenz a virus 2 RNA [presence] in specimen by MARVIN with probe detection Not Detect ed text: not detect ed Parai nflue nza Virus 2 Not Detec contreras Not Detec contreras BIOFI RE FILMA RRAY 06/29 1:[address] [facility] Not Available Not Available 09/01/2024 16:25:56 06/30/19 25 06/29/2024 Respi rator y patho gens DNA and RNA panel - Nasop haryn x by MARVIN with non-p robe detec tion parainfluenz a virus 3 RNA [presence] in nasopharynx by MARVIN with probe detection Not Detect ed text: not detect ed Parai nflue nza Virus 3 Not Detec contreras Not Detec contreras BIOFI RE FILMA RRAY 06/29 1:[address] [facility] Not Available Not Available 09/01/2024 16:25:56 06/30/19 25 06/29/2024 Respi rator y patho gens DNA and RNA panel - Nasop haryn x by MARVIN with non-p robe detec tion parainfluenz a virus 4 P gene [presence] in nasopharynx by MARVIN with probe detection Not Detect ed text: not detect ed Parai nflue nza Virus 4 Not Detec contreras Not Detec contreras BIOFI RE FILMA RRAY 06/29 1:[address] [facility] Not Available Not Available 09/01/2024 16:25:56 06/30/19 25 06/29/2024 Respi rator y patho gens DNA and RNA panel - Nasop haryn x by MARVIN with non-p robe detec tion respiratory syncytial virus RNA [presence] in nasopharynx by MARVIN with non-probe detection Not Detect ed text: not detect ed RSV, PCR Not Detec contreras Not Detec contreras BIOFI RE FILMA RRAY 06/29 1:[address] [facility] Not Available Not Available 09/01/2024 16:25:56 06/30/19 25 06/29/2024 Respi rator y patho gens DNA and RNA panel - Nasop haryn x by MARVIN with non-p robe detec tion bordetella pertussis DNA [presence] in specimen by MARVIN with probe detection Not Detect ed text: not detect ed Borde tella pertu ssis pcr Not Detec contreras Not Detec contreras BIOFI RE FILMA RRAY 06/29 1:[address] [facility] Not Available Not Available 09/01/2024 16:25:56 06/30/19 25 06/29/2024 Respi rator y patho gens DNA and RNA panel - Nasop haryn x by MARVIN with non-p robe detec tion bordetella parapertussi s DNA [presence] in specimen by MARVIN with probe detection Not Detect ed text: not detect ed Borde tella parap ertus sis PCR Not Detec contreras Not Detec contreras BIOFI RE FILMA RRAY 06/29 1:[address] [facility] Not Available Not Available 09/01/2024 16:25:56 06/30/19 25 06/29/2024 Respi rator y patho gens DNA and RNA panel - Nasop haryn x by MARVIN with non-p robe detec tion chlamydophil a pneumoniae DNA [presence] in nasopharynx by MARVIN with non-probe detection Not Detect ed text: not detect ed Chlam ydoph africa pneum oniae PCR Not Detec contreras Not Detec contreras BIOFI RE FILMA RRAY 06/29 1:[address] [facility] Not Available Not Available 09/01/2024 16:25:56 06/30/19 25 06/29/2024 Respi rator y patho gens DNA and RNA panel - Nasop haryn x by MARVIN with non-p robe detec tion mycoplasma pneumoniae IgG Ab [units/volum e] in serum by immunoassay Not Detect ed text: not detect ed Mycop lasma pneum o by PCR Not Detec contreras Not Detec contreras BIOFI RE FILMA RRAY 06/29 1:[address] [facility] Not Available Not Available 09/01/2024 16:25:56 06/30/1906/29/2024 Respi rator y patho gens DNA and RNA panel - Nasop haryn x by MARVIN with non-p robe detec tion Unknown Analyte In the settin g of a positi ve respir atory panel with a viral infect ion PLUS a negati ve procal citoni n withou t other underl andrei concer n for bacter ial infect ion, consid er observ ing off antibi otics or discon tinuat ion of antibi otics and contin ue suppor tive care. If the respir atory panel is positi ve for atypic al bacter ial infect ion (Borde tella pertus sis, Chlamy dophil a pneumo niae, or Mycopl asma pneumo niae), consid er antibi otic de-esc alatio n to target atypic al bacter ial infect ion. In the setti ng of a posit minh respi rator y panel with a viral infec tion PLUS a negat minh proca lcito basim witho ut other under lying sylvia rn for bacte rial infec tion, consi noe obser ving off antib iotic s or disco ntinu ation of antib iotic s and yumiko nue suppo rtive care. If the respi rator y panel is posit minh for atypi jone bacte rial infec tion (Bord etell a pertu ssis, Chlam ydoph africa pneum oniae , or Mycop lasma pneum oniae ), consi noe antib iotic de-es calat ion to targe t atypi jone bacte rial infec tion. Not Available Not Available 09/01/2024 16:25:56 06/30/1906/29/2024 Respi rator y patho gens DNA and RNA panel - Nasop haryn x by MARVIN with non-p robe detec tion interpretati on and review of laboratory results Normal Not Available Not Available 08/12 16:25:56 06/30/1906/29/2024 Magne sium Ioniz ed [Mass /volu me] in Serum or Plasm a magnesium [mass/volume ] in serum or plasma 2.4 mg/dL low: 1.6mg/ dLhigh : 2.4mg/ dL Magne sium 2.4 1.6 - 2.4 mg/dL 06/29 12:41 PM EDT [facility] [employer] [facility] Not Available Not Available 09/01/2024 16:25:56 06/30/19 25 06/29/2024 Magne sium Ioniz ed [Mass /volu me] in Serum or Plasm a interpretati on and review of laboratory results Normal Not Available Not Available 08/12 16:25:56 06/30/19 25 06/29/2024 Thyro xine (T4) free [Mass /volu me] in Serum or Plasm a thyroxine (T4) free [mass/volume ] in serum or plasma 1.17 NG/dL low: 0.92NG /dLhig h: 1.68NG /dL Free T4 1.17 0.92 - 1.68 ng/dL 06/29 12:25 PM EDT [facility] [facility] Not Available Not Available 09/01/2024 16:25:56 06/30/19 25 06/29/2024 Thyro xine (T4) free [Mass /volu me] in Serum or Plasm a interpretati on and review of laboratory results Normal Not Available Not Available 08/12 16:25:56 06/30/19 25 06/29/2024 Proca lcito basim [Mass /volu me] in Serum or Plasm a procalcitoni n [mass/volume ] in serum or plasma 0.13 NG/mL low: 0NG/mL high: 0.25NG /mL Proca lcito basim 0.13 0.00 - 0.25 ng/mL 06/29 12:24 PM EDT [facility] Not Available Not Available 09/01/2024 16:25:56 06/30/19 25 06/29/2024 Proca lcito basim [Mass /volu me] in Serum or Plasm a Unknown Analyte As a Marker for Sepsis (Non-N eonate s): 1. <0.5 ng/mL repres ents a low risk of severe sepsis and/or septic shock. 2. >2 ng/mL repres ents a high risk of severe sepsis and/or septic shock. As a Marker for Lower Respir atory Tract Infect ions that requir e antibi otic therap y: PCT on Admiss ion Antibi otic Therap y 6-12 Hrs later >0.5 Strong ly Recomm ended >0.25 - <0.5 Recomm ended 0.1 - 0.25 Discou raged Remeas ure/re assess PCT <0.1 Strong ly Discou raged Remeas ure/re assess PCT As 28 day mortal ity risk marker : Kyler sneed in Procal citoni n Result (>80% or <=80%) if Day 0 (or Day 1) and Day 4 values are availa ble. Refer to http:/ /www.[facility]- pct-ca lculat or.com Change in PCT <=80% A decrea se of PCT levels below or equal to 80% define s a positi ve change in PCT test result repres enting a higher risk for 28-day all-ca use mortal ity of patien ts diagno sed with severe sepsis for septic shock. Change in PCT >80% A decrea se of PCT levels of more than 80% define s a negati ve change in PCT result repres enting a lower risk for 28-day all-ca use mortal ity of patien ts diagno sed with severe sepsis or septic shock. As a Marke r for Sepsi s (Non- Neona elizabeth): 1. <0.5 ng/mL repre sents a low risk of sever e sepsi s and/o r septi c shock . 2. >2 ng/mL repre sents a high risk of sever e sepsi s and/o r septi c shock . As a Marke r for Lower Respi rator y Tract Infec tions that requi re antib iotic thera py: PCT on Admis eloy Antib iotic Thera py 6-12 Hrs later >0.5 Stron gly Recom danis d >0.25 - <0.5 Recom danis d 0.1 - 0.25 Disco urage d Remea sure/ reass ess PCT <0.1 Stron gly Disco urage d Remea sure/ reass ess PCT As 28 day morta lity risk marke r: Russ ge in Proca lcito basim Resul t (>80% or <=80% ) if Day 0 (or Day 1) and Day 4 value s are avail able. Refer to http: //www .[facility] ms-pc t-jone culat or.co m Manzanares e in PCT <=80% A decre ase of PCT level s below or equal to 80% defin es a posit minh manzanares e in PCT test resul t repre senti ng a highe r risk for 28-da y all-c ause morta lity of patie nts diagn osed with sever e sepsi s for septi c shock . Manzanares e in PCT >80% A decre ase of PCT level s of more than 80% defin es a negat minh manzanares e in PCT resul t repre senti ng a lower risk for 28-da y all-c ause morta lity of patie nts diagn osed with sever e sepsi s or septi c shock . Not Available Not Available 09/01/2024 16:25:56 06/30/19 25 06/29/2024 Proca lcito basim [Mass /volu me] in Serum or Plasm a interpretati on and review of laboratory results Normal Not Available Not Available 08/12 16:25:56 06/30/19 25 06/29/2024 Lacta te [Mole s/vol ume] in Serum or Plasm a D-lactate [moles/volum e] in serum or plasma 1.8 mmol/ L low: 0.5mmo l/Lhig h: 2mmol/ L Lacta te 1.8 0.5 - 2.0 mmol/ L 06/29 12:[address] [facility] Not Available Not Available 09/01/2024 16:25:56 06/30/19 25 06/29/2024 Lacta te [Mole s/vol ume] in Serum or Plasm a interpretati on and review of laboratory results Normal Not Available Not Available 08/12 16:25:56 06/30/19 25 06/29/2024 CBC W Diffe renti al panel , metho d unspe cifie d - Blood leukocytes [#/volume] corrected for nucleated erythrocytes in blood by automated count 10.35 10*3/ mm3 low: 3.410* 3/mm3h igh: 10.810 *3/mm3 WBC 10.35 3.40 - 10.80 10*3/ mm3 06/29 11:58 AM EDT [employer] [facility] Not Available Not Available 09/01/2024 16:25:56 06/30/19 25 06/29/2024 CBC W Diffe renti al panel , metho d unspe cifie d - Blood erythrocytes [#/volume] in blood by automated count 4.64 10*6/ mm3 low: 4.1410 *6/mm3 high: 5.810* 6/mm3 RBC 4.64 4.14 - 5.80 10*6/ mm3 06/29 11:58 AM EDT [employer] [facility] Not Available Not Available 09/01/2024 16:25:56 06/30/1906/29/2024 CBC W Diffe renti al panel , metho d unspe cifie d - Blood hemoglobin [mass/volume ] in blood 11.2 g/dL low: 13g/dL high: 17.7g/ dL low Hemog lobin 11.2 (L) 13.0 - 17.7 g/dL 06/29 11:58 AM EDT [facility] Not Available Not Available 09/01/2024 16:25:56 06/30/1906/29/2024 CBC W Diffe renti al panel , metho d unspe cifie d - Blood hematocrit [volume fraction] of blood by automated count 38.5 % low: 37.5%h igh: 51% Hemat ocrit 38.5 37.5 - 51.0 % 06/29 11:58 AM EDT [employer] Not Available Not Available 09/01/2024 16:25:56 06/30/19 25 06/29/2024 CBC W Diffe renti al panel , metho d unspe cifie d - Blood MCV [entitic mean volume] in red blood cells by automated count 83 fL low: 79fLhi gh: 97fL MCV 83.0 79.0 - 97.0 fL 06/29 11:58 AM EDT [employer] [facility] Not Available Not Available 09/01/2024 16:25:56 06/30/19 25 06/29/2024 CBC W Diffe renti al panel , metho d unspe cifie d - Blood MCH [entitic mass] by automated count 24.1 pg low: 26.6pg high: 33pg low MCH 24.1 (L) 26.6 - 33.0 pg 06/29 11:58 AM EDT [employer] Not Available Not Available 09/01/2024 16:25:56 06/30/19 25 06/29/2024 CBC W Diffe renti al panel , metho d unspe cifie d - Blood MCHC [entitic mass/volume] in red blood cells by automated count 29.1 g/dL low: 31.5g/ dLhigh : 35.7g/ dL low MCHC 29.1 (L) 31.5 - 35.7 g/dL 06/29 11:58 AM EDT [employer] Not Available Not Available 09/01/2024 16:25:56 06/30/19 25 06/29/2024 CBC W Diffe renti al panel , metho d unspe cifie d - Blood erythrocyte [distwidth] in red blood cells by automated count 17.6 % low: 12.3%h igh: 15.4% high RDW 17.6 (H) 12.3 - 15.4 % 06/29 11:58 AM EDT [employer] Not Available Not Available 09/01/2024 16:25:56 06/30/19 25 06/29/2024 CBC W Diffe renti al panel , metho d unspe cifie d - Blood RDW-SD 53.1 fL low: 37fLhi gh: 54fL RDW-S D 53.1 37.0 - 54.0 fl 06/29 11:58 AM EDT [employer] [facility] Not Available Not Available 09/01/2024 16:25:56 06/30/19 25 06/29/2024 CBC W Diffe renti al panel , metho d unspe cifie d - Blood platelet [entitic mean volume] in blood by automated count 9 fL low: 6fLhig h: 12fL MPV 9.0 6.0 - 12.0 fL 06/29 11:58 AM EDT [facility] Not Available Not Available 09/01/2024 16:25:56 06/30/19 25 06/29/2024 CBC W Diffnaren kumar al panel , metho d unspe cifie d - Blood platelets [#/volume] in blood by automated count 415 10*3/ mm3 low: 81182* 3/mm3h igh: 81901* 3/mm3 Plate lets 415 140 - 450 10*3/ mm3 06/29 11:58 AM EDT [employer] [facility] Not Available Not Available 09/01/2024 16:25:56 06/30/1906/29/2024 CBC W Anthony kumar al panel , metho d unspe cifie d - Blood neutrophils/ leukocytes in blood by automated count 75.9 % low: 42.7%h igh: 76% Neutr ophil % 75.9 42.7 - 76.0 % 06/29 11:58 AM EDT [employer] [facility] Not Available Not Available 09/01/2024 16:25:56 06/30/19 25 06/29/2024 CBC W Diffe josé al panel , metho d unspe cifie d - Blood lymphocytes/ leukocytes in blood by automated count 14.2 % low: 19.6%h igh: 45.3% low Lymph ocyte % 14.2 (L) 19.6 - 45.3 % 06/29 11:58 AM EDT [employer] [facility] Not Available Not Available 09/01/2024 16:25:56 06/30/19 25 06/29/2024 CBC W Diffe renti al panel , metho d unspe cifie d - Blood monocytes/le ukocytes in blood by automated count 6.1 % low: 5%high : 12% Monoc yte % 6.1 5.0 - 12.0 % 06/29 11:58 AM EDT [employer] [facility] [facility] Not Available Not Available 09/01/2024 16:25:56 06/30/19 25 06/29/2024 CBC W Diffe renti al panel , metho d unspe cifie d - Blood eosinophils/ leukocytes in blood by automated count 3.1 % low: 0.3%hi gh: 6.2% Eosin ophil % 3.1 0.3 - 6.2 % 06/29 11:58 AM EDT [employer] [facility] Not Available Not Available 09/01/2024 16:25:56 06/30/19 25 06/29/2024 CBC W Diffe renti al panel , metho d unspe cifie d - Blood basophils/le ukocytes in blood by automated count 0.3 % low: 0%high : 1.5% Basop hil % 0.3 0.0 - 1.5 % 06/29 11:58 AM EDT [employer] Not Available Not Available 09/01/2024 16:25:56 06/30/19 25 06/29/2024 CBC W Diffe renti al panel , metho d unspe cifie d - Blood immature granulocytes /leukocytes in blood by automated count 0.4 % low: 0%high : 0.5% Immat ure Grans % 0.4 0.0 - 0.5 % 06/29 11:58 AM EDT [employer] Not Available Not Available 09/01/2024 16:25:56 06/30/19 25 06/29/2024 CBC W Diffe renti al panel , metho d unspe cifie d - Blood neutrophils/ leukocytes in blood by automated count 7.86 10*3/ mm3 low: 1.710* 3/mm3h igh: 710*3/ mm3 high Neutr ophil s, Absol naknek 7.86 (H) 1.70 - 7.00 10*3/ mm3 06/29 11:58 AM EDT [employer] [facility] Not Available Not Available 09/01/2024 16:25:56 06/30/19 25 06/29/2024 CBC W Diffe renti al panel , metho d unspe cifie d - Blood lymphocytes [#/volume] in blood by automated count 1.47 10*3/ mm3 low: 0.710* 3/mm3h igh: 3.110* 3/mm3 Lymph ocyte s, Absol naknek 1.47 0.70 - 3.10 10*3/ mm3 06/29 11:58 AM EDT [facility] Not Available Not Available 09/01/2024 16:25:56 06/30/19 25 06/29/2024 CBC W Diffe renti al panel , metho d unspe cifie d - Blood monocytes [#/volume] in blood by automated count 0.63 10*3/ mm3 low: 0.110* 3/mm3h igh: 0.910* 3/mm3 Monoc ytes, Absol naknek 0.63 0.10 - 0.90 10*3/ mm3 06/29 11:58 AM EDT [employer] [facility] Not Available Not Available 09/01/2024 16:25:56 06/30/19 25 06/29/2024 CBC W Diffe renti al panel , metho d unspe cifie d - Blood eosinophils [#/volume] in blood by automated count 0.32 10*3/ mm3 low: 010*3/ mm3hig h: 0.410* 3/mm3 Eosin ophil s, Absol naknek 0.32 0.00 - 0.40 10*3/ mm3 06/29 11:58 AM EDT [employer] [facility] Not Available Not Available 09/01/2024 16:25:56 06/30/19 25 06/29/2024 CBC W Diffe renti al panel , metho d unspe cifie d - Blood basophils [#/volume] in blood by automated count 0.03 10*3/ mm3 low: 010*3/ mm3hig h: 0.210* 3/mm3 Basop hils, Absol naknek 0.03 0.00 - 0.20 10*3/ mm3 06/29 11:[address] [facility] Not Available Not Available 09/01/2024 16:25:56 06/30/19 25 06/29/2024 CBC W Diffe renti al panel , metho d unspe cifie d - Blood immature granulocytes [#/volume] in blood by automated count 0.04 10*3/ mm3 low: 010*3/ mm3hig h: 0.0510 *3/mm3 Immat ure Grans , Absol naknek 0.04 0.00 - 0.05 10*3/ mm3 06/29 11:[address] [employer] [email or web address] [facility] Not Available Not Available 09/01/2024 16:25:56 06/30/19 25 06/29/2024 CBC W Diffe renti al panel , metho d unspe cifie d - Blood nucleated erythrocytes /leukocytes [ratio] in blood by automated count 0 text: 0.0 - 0.2 /100 WBC nRBC 0.0 0.0 - 0.2 /100 WBC 06/29 11:[address] Not Available Not Available 09/01/2024 16:25:56 06/30/19 25 06/29/2024 CBC W Diffe renti al panel , metho d unspe cifie d - Blood interpretati on and review of laboratory results Abnorm al Not Available Not Available 16:25:56 06/30/19 25 06/29/2024 Tropo basim T.car diac [Mass /volu me] in Serum or Plasm a by High sensi tivit y metho d troponin T.cardiac [mass/volume ] in serum or plasma by high sensitivity method 29 NG/L high: 22NG/L high HS Tropo basim T 29 (H) <22 ng/L 06/29 12:[address] Not Available Not Available 09/01/2024 16:25:56 06/30/1906/29/2024 Tropo basim T.car diac [Mass /volu me] in Serum or Plasm a by High sensi tivit y metho d Unknown Analyte High Sensit minh Tropon in T Refere nce Range: <14.0 ng/L- Negati ve Female for AMI <22.0 ng/L- Negati ve Male for AMI >=14 - Abnorm al Female indica ting possib le myocar dial injury . >=22 - Abnorm al Male indica ting possib le myocar dial injury . Clinic ians would have to utiliz e clinic al acumen , EKG, Tropon in, and serial change s to determ ine if it is an Acute Myocar dial Infarc tion or myocar dial injury due to an underl andrei chroni c condit ion. High Sensi tive Tropo basim T Refer ence Range : <14.0 ng/L- Negat minh Femal e for AMI <22.0 ng/L- Negat minh Male for AMI >=14 - Abnor mal Femal e indic ating possi ble myoca rdial injur y. >=22 - Abnor mal Male indic ating possi ble myoca rdial injur y. Clini cians would have to utili ze clini jone acume n, EKG, Tropo basim, and seria l manzanares es to deter mine if it is an Acute Myoca rdial Infar ction or myoca rdial injur y due to an under lying chron ic condi tion. Not Available Not Available 09/01/2024 16:25:56 06/30/19 25 06/29/2024 Tropo basim T.car diac [Mass /volu me] in Serum or Plasm a by High sensi tivit y metho d interpretati on and review of laboratory results Abnorm al Not Available Not Available 16:25:56 06/30/19 25 06/29/2024 Natri ureti c pepti de B [Mass /volu me] in Serum or Plasm a natriuretic peptide.B prohormone N-terminal [mass/volume ] in serum or plasma 1620 pg/mL low: 0pg/mL high: 900pg/ mL high proBN P 1,620 .0 (H) 0.0 - 900.0 pg/mL 06/29 12:[address] [facility] Not Available Not Available 09/01/2024 16:25:56 06/30/1906/29/2024 Natri ureti c pepti de B [Mass /volu me] in Serum or Plasm a Unknown Analyte This assay is used as an aid in the diagno sis of indivi duals suspec contreras of having heart failur e. It can be used as an aid in the diagno sis of acute decomp ensate d heart failur e (ADHF) in patien ts presen ting with signs and sympto ms of ADHF to the emerge ncy depart ment (ED). In additi on, NT-pro BNP of <300 pg/mL indica elizabeth ADHF is not likely . Age Range Result Interp retati on NT-pro BNP Concen tratio n (pg/mL : <50 Positi ve >450 Mac 300-45 0 Negati ve <300 50-75 Positi ve >900 Mac 300-90 0 Negati ve <300 >75 Positi ve >1800 Mac 300-18 00 Negati ve <300 This assay is used as an aid in the diagn osis of indiv idual s suspe cted of havin g heart failu re. It can be used as an aid in the diagn osis of acute decom pensa contreras heart failu re (ADHF ) in patie nts prese nting with signs and sympt oms of ADHF to the emerg ency depar tment (ED). In addit ion, NT-pr oBNP of <300 pg/mL indic ates ADHF is not likel y. Age Range Resul t Inter preta tion NT-pr oBNP Sylvia ntrat ion (pg/m L: <50 Posit minh >450 Mac 300-4 50 Negat minh <300 50-75 Posit minh >900 Mac 300-9 00 Negat minh <300 >75 Posit minh >1800 Mac 300-1 800 Negat minh <300 Not Available Not Available 09/01/2024 16:25:56 06/30/19 25 06/29/2024 Natri ureti c pepti de B [Mass /volu me] in Serum or Plasm a interpretati on and review of laboratory results Abnorm al Not Available Not Available 16:25:56 06/30/19 25 07/04/2024 Bacte bethany ident ified in Blood by Cultu re bacteria identified in specimen by aerobe culture No growth at 5 days Blood Cultu re No growt h at 5 days 07/04 12:[address] Not Available Not Available 09/01/2024 16:25:55 06/30/19 25 07/04/2024 Bacte bethany ident ified in Blood by Cultu re Unknown Analyte Less than seven (7) mL's of blood was collec contreras. Insuff icient quanti ty may yield false negati ve result s. Less than seven (7) mL's of blood was colle cted. Insuf ficie nt quant ity may yield false negat minh resul ts. Not Available Not Available 09/01/2024 16:25:55 06/30/19 25 07/04/2024 Bacte bethany ident ified in Blood by Cultu re interpretati on and review of laboratory results Normal Not Available Not Available 08/12 16:25:55 06/30/19 25 07/04/2024 Bacte bethany ident ified in Blood by Cultu re bacteria identified in specimen by aerobe culture No growth at 5 days Blood Cultu re No growt h at 5 days 07/04 12:[address] [facility] Not Available Not Available 09/01/2024 16:25:55 06/30/19 25 07/04/2024 Bacte bethany ident ified in Blood by Cultu re Unknown Analyte Less than seven (7) mL's of blood was collec contreras. Insuff icient quanti ty may yield false negati ve result s. Less than seven (7) mL's of blood was colle cted. Insuf ficie nt quant ity may yield false negat minh resul ts. Not Available Not Available 09/01/2024 16:25:55 06/30/19 25 07/04/2024 Bacte bethany ident ified in Blood by Cultu re interpretati on and review of laboratory results Normal Not Available Not Available 08/12 16:25:55 07/01/19 25 06/30/2024 Basic metab olic 2000 panel - Serum or Plasm a glucose [mass/volume ] in capillary blood by glucometer 281 mg/dL low: 70mg/d Lhigh: 130mg/ dL high Gluco se 281 (H) 70 - 130 mg/dL 06/30 8:[address] Not Available Not Available 09/01/2024 16:25:57 07/01/19 25 06/30/2024 Basic metab olic 2000 panel - Serum or Plasm a interpretati on and review of laboratory results Abnorm al Not Available Not Available 16:25:57 07/01/19 25 06/30/2024 Basic metab olic 2000 panel - Serum or Plasm a glucose [mass/volume ] in capillary blood by glucometer 234 mg/dL low: 70mg/d Lhigh: 130mg/ dL high Gluco se 234 (H) 70 - 130 mg/dL 06/30 7:[address] [facility] Not Available Not Available 09/01/2024 16:25:57 07/01/19 25 06/30/2024 Basic metab olic 2000 panel - Serum or Plasm a interpretati on and review of laboratory results Abnorm al Not Available Not Available 16:25:57 07/01/19 25 06/30/2024 Basic metab olic 2000 panel - Serum or Plasm a glucose [mass/volume ] in capillary blood by glucometer 226 mg/dL low: 70mg/d Lhigh: 130mg/ dL high Gluco se 226 (H) 70 - 130 mg/dL 06/30 4:[address] Not Available Not Available 09/01/2024 16:25:57 07/01/19 25 06/30/2024 Basic metab olic 2000 panel - Serum or Plasm a interpretati on and review of laboratory results Abnorm al Not Available Not Available 16:25:57 07/01/19 25 06/30/2024 Basic metab olic 2000 panel - Serum or Plasm a glucose [mass/volume ] in capillary blood by glucometer 230 mg/dL low: 70mg/d Lhigh: 130mg/ dL high Gluco se 230 (H) 70 - 130 mg/dL 06/30 11:[address] Not Available Not Available 09/01/2024 16:25:57 07/01/19 25 06/30/2024 Basic metab olic 2000 panel - Serum or Plasm a interpretati on and review of laboratory results Abnorm al Not Available Not Available 16:25:57 07/01/19 25 06/30/2024 Basic metab olic 2000 panel - Serum or Plasm a glucose [mass/volume ] in capillary blood by glucometer 251 mg/dL low: 70mg/d Lhigh: 130mg/ dL high Gluco se 251 (H) 70 - 130 mg/dL 06/30 7:[address] [facility] Not Available Not Available 09/01/2024 16:25:57 07/01/19 25 06/30/2024 Basic metab olic 2000 panel - Serum or Plasm a interpretati on and review of laboratory results Abnorm al Not Available Not Available 16:25:57 07/01/19 25 06/30/2024 Basic metab olic 2000 panel - Serum or Plasm a glucose [mass/volume ] in capillary blood by glucometer 238 mg/dL low: 70mg/d Lhigh: 130mg/ dL high Gluco se 238 (H) 70 - 130 mg/dL 06/30 3:[address] [facility] Not Available Not Available 09/01/2024 16:25:57 07/01/19 25 06/30/2024 Basic metab olic 2000 panel - Serum or Plasm a interpretati on and review of laboratory results Abnorm al Not Available Not Available 16:25:57 07/01/19 25 06/30/2024 Creat ine kinas e [Enzy matic activ ity/v olume ] in Serum or Plasm a creatine kinase [enzymatic activity/vol ume] in serum or plasma 85 U/L low: 20U/Lh igh: 200U/L Creat ine Kinas e 85 20 - 200 U/L 06/30 4:[address] [facility] [employer] [facility] Not Available Not Available 09/01/2024 16:25:57 07/01/19 25 06/30/2024 Creat ine kinas e [Enzy matic activ ity/v olume ] in Serum or Plasm a interpretati on and review of laboratory results Normal Not Available Not Available 08/12 16:25:57 07/01/19 25 06/30/2024 Magne sium Ioniz ed [Mass /volu me] in Serum or Plasm a magnesium [mass/volume ] in serum or plasma 2.4 mg/dL low: 1.6mg/ dLhigh : 2.4mg/ dL Magne sium 2.4 1.6 - 2.4 mg/dL 06/30 4:[address] [employer] [facility] [facility] Not Available Not Available 09/01/2024 16:25:57 07/01/19 25 06/30/2024 Magne sium Ioniz ed [Mass /volu me] in Serum or Plasm a interpretati on and review of laboratory results Normal Not Available Not Available 08/12 16:25:57 07/01/19 25 06/30/2024 C react minh prote in [Mass /volu me] in Serum or Plasm a C reactive protein [mass/volume ] in serum or plasma 5.76 mg/dL low: 0mg/dL high: 0.5mg/ dL high [place] ctive Prote in 5.76 (H) 0.00 - 0.50 mg/dL 06/30 4:[address] [employer] [facility] [employer] [employer] [facility] Not Available Not Available 09/01/2024 16:25:57 07/01/19 25 06/30/2024 C react minh prote in [Mass /volu me] in Serum or Plasm a interpretati on and review of laboratory results Abnorm al Not Available Not Available 16:25:57 07/01/19 25 06/30/2024 CBC panel - Blood by Autom ated count leukocytes [#/volume] corrected for nucleated erythrocytes in blood by automated count 7.57 10*3/ mm3 low: 3.410* 3/mm3h igh: 10.810 *3/mm3 WBC 7.57 3.40 - 10.80 10*3/ mm3 06/30 4:35 AM EDT [employer] [facility] Not Available Not Available 09/01/2024 16:25:57 07/01/19 25 06/30/2024 CBC panel - Blood by Autom ated count erythrocytes [#/volume] in blood by automated count 4.28 10*6/ mm3 low: 4.1410 *6/mm3 high: 5.810* 6/mm3 RBC 4.28 4.14 - 5.80 10*6/ mm3 06/30 4:35 AM EDT [employer] [facility] Not Available Not Available 09/01/2024 16:25:57 07/01/19 25 06/30/2024 CBC panel - Blood by Autom ated count hemoglobin [mass/volume ] in blood 10.3 g/dL low: 13g/dL high: 17.7g/ dL low Hemog lobin 10.3 (L) 13.0 - 17.7 g/dL 06/30 4:35 AM EDT [employer] [facility] Not Available Not Available 09/01/2024 16:25:57 07/01/19 25 06/30/2024 CBC panel - Blood by Autom ated count hematocrit [volume fraction] of blood by automated count 35.3 % low: 37.5%h igh: 51% low Hemat ocrit 35.3 (L) 37.5 - 51.0 % 06/30 4:35 AM EDT [employer] [facility] Not Available Not Available 09/01/2024 16:25:57 07/01/19 25 06/30/2024 CBC panel - Blood by Autom ated count MCV [entitic mean volume] in red blood cells by automated count 82.5 fL low: 79fLhi gh: 97fL MCV 82.5 79.0 - 97.0 fL 06/30 4:35 AM EDT [employer] [facility] Not Available Not Available 09/01/2024 16:25:57 07/01/19 25 06/30/2024 CBC panel - Blood by Autom ated count MCH [entitic mass] by automated count 24.1 pg low: 26.6pg high: 33pg low MCH 24.1 (L) 26.6 - 33.0 pg 06/30 4:35 AM EDT [employer] [facility] Not Available Not Available 09/01/2024 16:25:57 07/01/19 25 06/30/2024 CBC panel - Blood by Autom ated count MCHC [entitic mass/volume] in red blood cells by automated count 29.2 g/dL low: 31.5g/ dLhigh : 35.7g/ dL low MCHC 29.2 (L) 31.5 - 35.7 g/dL 06/30 4:35 AM [employer] [facility] Not Available Not Available 09/01/2024 16:25:57 07/01/19 25 06/30/2024 CBC panel - Blood by Autom ated count erythrocyte [distwidth] in red blood cells by automated count 17.6 % low: 12.3%h igh: 15.4% high RDW 17.6 (H) 12.3 - 15.4 % 06/30 4:35 AM EDT [employer] [facility] Not Available Not Available 09/01/2024 16:25:57 07/01/19 25 06/30/2024 CBC panel - Blood by Autom ated count RDW-SD 52.4 fL low: 37fLhi gh: 54fL RDW-S D 52.4 37.0 - 54.0 fl 06/30 4:35 AM [employer] ATORY Not Available Not Available 09/01/2024 16:25:57 07/01/19 25 06/30/2024 CBC panel - Blood by Autom ated count platelet [entitic mean volume] in blood by automated count 9.2 fL low: 6fLhig h: 12fL MPV 9.2 6.0 - 12.0 fL 06/30 4:35 AM EDT [employer] [facility] Not Available Not Available 09/01/2024 16:25:57 07/01/19 25 06/30/2024 CBC panel - Blood by Autom ated count platelets [#/volume] in blood by automated count 376 10*3/ mm3 low: 44528* 3/mm3h igh: 74651* 3/mm3 Plate lets 376 140 - 450 10*3/ mm3 06/30 4:35 AM EDT [employer] [facility] AT[facility] Not Available Not Available 09/01/2024 16:25:57 07/01/19 25 06/30/2024 CBC panel - Blood by Autom ated count interpretati on and review of laboratory results Abnorm al Not Available Not Available 16:25:57 07/01/19 25 06/30/2024 Basic metab olic 2000 panel - Serum or Plasm a glucose [mass/volume ] in serum or plasma 257 mg/dL low: 65mg/d Lhigh: 99mg/d L high Gluco se 257 (H) 65 - 99 mg/dL 06/30 4:47 AM EDT [employer] [facility] Not Available Not Available 09/01/2024 16:25:57 07/01/19 25 06/30/2024 Basic metab olic 2000 panel - Serum or Plasm a urea nitrogen [mass/volume ] in serum or plasma 31 mg/dL low: 8mg/dL high: 23mg/d L high BUN 31 (H) 8 - 23 mg/dL 06/30 4:47 AM EDT [employer] [facility] Not Available Not Available 09/01/2024 16:25:57 07/01/19 25 06/30/2024 Basic metab olic 2000 panel - Serum or Plasm a creatinine [mass/volume ] in serum or plasma 1.16 mg/dL low: 0.76mg /dLhig h: 1.27mg /dL Creat inine 1.16 0.76 - 1.27 mg/dL 06/30 4:47 AM EDT [employer] [facility] Not Available Not Available 09/01/2024 16:25:57 07/01/19 25 06/30/2024 Basic metab olic 1999 panel - Serum or Plasm a sodium [moles/volum e] in serum or plasma 136 mmol/ L low: 136mmo l/Lhig h: 145mmo l/L Sodiu m 136 136 - 145 mmol/ L 06/30 4:47 AM EDT [employer] [facility] Not Available Not Available 09/01/2024 16:25:57 07/01/19 25 06/30/2024 Basic metab olic 1999 panel - Serum or Plasm a potassium [moles/volum e] in serum or plasma 4.7 mmol/ L low: 3.5mmo l/Lhig h: 5.2mmo l/L Potas sium 4.7 3.5 - 5.2 mmol/ L 06/30 4:47 AM EDT [employer] [facility] Not Available Not Available 09/01/2024 16:25:57 07/01/1906/30/2024 Basic metab olic 1999 panel - Serum or Plasm a chloride [moles/volum e] in serum or plasma 96 mmol/ L low: 98mmol /Lhigh : 107mmo l/L low Chlor chava 96 (L) 98 - 107 mmol/ L 06/30 4:47 AM EDT [employer] [facility] Not Available Not Available 09/01/2024 16:25:57 07/01/19 25 06/30/2024 Basic metab olic 1999 panel - Serum or Plasm a carbon dioxide, total [moles/volum e] in serum or plasma 30 mmol/ L low: 22mmol /Lhigh : 29mmol /L high CO2 30.0 (H) 22.0 - 29.0 mmol/ L 06/30 4:47 AM EDT [employer] [facility] Not Available Not Available 09/01/2024 16:25:57 07/01/19 25 06/30/2024 Basic metab olic 1999 panel - Serum or Plasm a calcium [moles/volum e] in specimen 9.1 mg/dL low: 8.6mg/ dLhigh : 10.5mg /dL Calci um 9.1 8.6 - 10.5 mg/dL 06/30 4:47 AM EDT [employer] [facility] Not Available Not Available 09/01/2024 16:25:57 07/01/19 25 06/30/2024 Basic metab olic 1999 panel - Serum or Plasm a urea nitrogen/cre atinine [mass ratio] in serum or plasma 26.7 low: 7high: 25 high BUN/C reati nine Ratio 26.7 (H) 7.0 - 25.0 06/30 4:47 AM EDT [employer] [facility] Not Available Not Available 09/01/2024 16:25:57 07/01/19 25 06/30/2024 Basic [employer] olic 2000 panel - Serum or Plasm a anion gap in serum or plasma by calculated.3 ions 10 mmol/ L low: 5mmol/ Lhigh: 15mmol /L Anion Gap 10.0 5.0 - 15.0 mmol/ L 06/30 4:47 AM EDT [employer] [facility] Not Available Not Available 09/01/2024 16:25:57 07/01/19 25 06/30/2024 Basic metab olic 2000 panel - Serum or Plasm a glomerular filtration rate [volume rate/area] in serum, plasma or blood by creatinine-b ased formula (CKD-epi 2020)/1.73 sq M 70.8 mL/mi n/1.7 3 low: 60mL/m in/1.7 3 eGFR 70.8 >60.0 mL/mi n/1.7 3 06/30 4:47 AM EDT [employer] Not Available Not Available 09/01/2024 16:25:57 07/01/19 25 06/30/2024 Basic metab olic 2000 panel - Serum or Plasm a Unknown Analyte GFR Catego kylee in Chroni c Kidney Diseas e (CKD) GFR Catego ry GFR (mL/mi n/1.73 ) Interp retati on G1 90 or greate r Normal or high (1) G2 60-89 Mild decrea se (1) G3a 45-59 Mild to modera te decrea se G3b 30-44 Modera te to severe decrea se G4 15-29 Severe decrea se G5 14 or less Kidney failur e (1)In the absenc e of eviden ce of kidney diseas e, neithe r GFR catego ry G1 or G2 fulfil l the criter ia for CKD. eGFR calcul ation 2020 CKD-EP I creati nine equati on, which does not includ e race as a factor GFR Categ ories in Chron ic Kidne y Disea se (CKD) GFR Categ ory GFR (mL/m in/1. 73) Inter preta tion G1 90 or great er Etta l or high (1) G2 60-89 Mild decre ase (1) G3a 45-59 Mild to moder ate decre ase G3b 30-44 Moder ate to sever e decre ase G4 15-29 Sever e decre ase G5 14 or less Kidne y failu re (1)In the absen ce of evide nce of kidne y disea se, neith er GFR categ ory G1 or G2 fulfi ll the crite bethany for CKD. eGFR calcu latio n 2020 CKD-E PI creat inine equat ion, which does not inclu de race as a facto r Not Available Not Available 09/01/2024 16:25:57 07/01/19 25 06/30/2024 Basic metab olic 2000 panel - Serum or Plasm a interpretati on and review of laboratory results Abnorm al Not Available Not Available 16:25:57 07/01/19 25 06/30/2024 Hemog lobin A1c/H emogl obin. total in Blood hemoglobin A1C/hemoglob in.total in blood 10.9 % low: 4.8%hi gh: 5.6% high Hemog lobin A1C 10.90 (H) 4.80 - 5.60 % 06/30 4:[address] [facility] Not Available Not Available 09/01/2024 16:25:57 07/01/19 25 06/30/2024 Hemog lobin A1c/H emogl obin. total in Blood Unknown Analyte Hemogl obin A1C Ranges : Increa sed Risk for Diabet es 5.7% to 6.4% Diabet es >= 6.5% Diabet ic Goal < 7.0% Hemog lobin A1C Range s: Incre ased Risk for Diabe elizabeth 5.7% to 6.4% Diabe elizabeth >= 6.5% Diabe tic Goal < 7.0% Not Available Not Available 09/01/2024 16:25:57 07/01/19 25 06/30/2024 Hemog lobin A1c/H emogl obin. total in Blood interpretati on and review of laboratory results Abnorm al Not Available Not Available 16:25:57 07/02/19 25 07/01/2024 Basic metab olic 2000 panel - Serum or Plasm a glucose [mass/volume ] in capillary blood by glucometer 202 mg/dL low: 70mg/d Lhigh: 130mg/ dL high Gluco se 202 (H) 70 - 130 mg/dL 07/01 7:[address] [facility] Not Available Not Available 09/01/2024 16:25:57 07/02/19 25 07/01/2024 Basic metab olic 2000 panel - Serum or Plasm a interpretati on and review of laboratory results Abnorm al Not Available Not Available 16:25:57 07/02/19 25 07/01/2024 Basic metab olic 2000 panel - Serum or Plasm a glucose [mass/volume ] in capillary blood by glucometer 260 mg/dL low: 70mg/d Lhigh: 130mg/ dL high Gluco se 260 (H) 70 - 130 mg/dL 07/01 4:[address] [facility] Not Available Not Available 09/01/2024 16:25:57 07/02/19 25 07/01/2024 Basic metab olic 2000 panel - Serum or Plasm a interpretati on and review of laboratory results Abnorm al Not Available Not Available 16:25:57 07/02/19 25 07/01/2024 Basic metab olic 2000 panel - Serum or Plasm a glucose [mass/volume ] in capillary blood by glucometer 242 mg/dL low: 70mg/d Lhigh: 130mg/ dL high Gluco se 242 (H) 70 - 130 mg/dL 07/01 11:04 AM EDT [facility] Not Available Not Available 09/01/2024 16:25:57 07/02/19 25 07/01/2024 Basic metab olic 2000 panel - Serum or Plasm a interpretati on and review of laboratory results Abnorm al Not Available Not Available 16:25:57 07/02/19 25 07/01/2024 Basic metab olic 2000 panel - Serum or Plasm a glucose [mass/volume ] in capillary blood by glucometer 232 mg/dL low: 70mg/d Lhigh: 130mg/ dL high Gluco se 232 (H) 70 - 130 mg/dL 07/01 6:42 AM EDT [employer] [facility] Not Available Not Available 09/01/2024 16:25:57 07/02/19 25 07/01/2024 Basic metab olic 2000 panel - Serum or Plasm a interpretati on and review of laboratory results Abnorm al Not Available Not Available 16:25:57 07/02/19 25 07/01/2024 CBC panel - Blood by Autom ated count leukocytes [#/volume] corrected for nucleated erythrocytes in blood by automated count 8.6 10*3/ mm3 low: 3.410* 3/mm3h igh: 10.810 *3/mm3 WBC 8.60 3.40 - 10.80 10*3/ mm3 07/01 4:54 AM EDT [facility] Not Available Not Available 09/01/2024 16:25:57 07/02/19 25 07/01/2024 CBC panel - Blood by Autom ated count erythrocytes [#/volume] in blood by automated count 4.48 10*6/ mm3 low: 4.1410 *6/mm3 high: 5.810* 6/mm3 RBC 4.48 4.14 - 5.80 10*6/ mm3 07/01 4:54 AM EDT [employer] [facility] Not Available Not Available 09/01/2024 16:25:57 07/02/19 25 07/01/2024 CBC panel - Blood by Autom ated count hemoglobin [mass/volume ] in blood 10.7 g/dL low: 13g/dL high: 17.7g/ dL low Hemog lobin 10.7 (L) 13.0 - 17.7 g/dL 07/01 4:54 AM EDT [employer] [facility] Not Available Not Available 09/01/2024 16:25:57 07/02/19 25 07/01/2024 CBC panel - Blood by Autom ated count hematocrit [volume fraction] of blood by automated count 37 % low: 37.5%h igh: 51% low Hemat ocrit 37.0 (L) 37.5 - 51.0 % 07/01 4:54 AM EDT [employer] [facility] Not Available Not Available 09/01/2024 16:25:57 07/02/19 25 07/01/2024 CBC panel - Blood by Autom ated count MCV [entitic mean volume] in red blood cells by automated count 82.6 fL low: 79fLhi gh: 97fL MCV 82.6 79.0 - 97.0 fL 07/01 4:54 AM EDT [employer] [facility] Not Available Not Available 09/01/2024 16:25:57 07/02/19 25 07/01/2024 CBC panel - Blood by Autom ated count MCH [entitic mass] by automated count 23.9 pg low: 26.6pg high: 33pg low MCH 23.9 (L) 26.6 - 33.0 pg 07/01 4:54 AM EDT [employer] [facility] Not Available Not Available 09/01/2024 16:25:57 07/02/19 25 07/01/2024 CBC panel - Blood by Autom ated count MCHC [entitic mass/volume] in red blood cells by automated count 28.9 g/dL low: 31.5g/ dLhigh : 35.7g/ dL low MCHC 28.9 (L) 31.5 - 35.7 g/dL 07/01 4:54 AM EDT [employer] [facility] Not Available Not Available 09/01/2024 16:25:57 07/02/19 25 07/01/2024 CBC panel - Blood by Autom ated count erythrocyte [distwidth] in red blood cells by automated count 17.4 % low: 12.3%h igh: 15.4% high RDW 17.4 (H) 12.3 - 15.4 % 07/01 4:54 AM EDT [employer] [facility] Not Available Not Available 09/01/2024 16:25:57 07/02/19 25 07/01/2024 CBC panel - Blood by Autom ated count RDW-SD 52.5 fL low: 37fLhi gh: 54fL RDW-S D 52.5 37.0 - 54.0 fl 07/01 4:54 AM EDT [employer] [facility] Not Available Not Available 09/01/2024 16:25:57 07/02/19 25 07/01/2024 CBC panel - Blood by Autom ated count platelet [entitic mean volume] in blood by automated count 9.6 fL low: 6fLhig h: 12fL MPV 9.6 6.0 - 12.0 fL 07/01 4:54 AM EDT [employer] [facility] Not Available Not Available 09/01/2024 16:25:57 07/02/19 25 07/01/2024 CBC panel - Blood by Autom ated count platelets [#/volume] in blood by automated count 414 10*3/ mm3 low: 51074* 3/mm3h igh: 73008* 3/mm3 Plate lets 414 140 - 450 10*3/ mm3 07/01 4:54 AM EDT [employer] [facility] Not Available Not Available 09/01/2024 16:25:57 07/02/19 25 07/01/2024 CBC panel - Blood by Autom ated count interpretati on and review of laboratory results Abnorm al Not Available Not Available 16:25:57 07/02/19 25 07/01/2024 Basic metab olic 1999 panel - Serum or Plasm a glucose [mass/volume ] in serum or plasma 283 mg/dL low: 65mg/d Lhigh: 99mg/d L high Gluco se 283 (H) 65 - 99 mg/dL 07/01 4:58 AM EDT [facility] Not Available Not Available 09/01/2024 16:25:57 07/02/19 25 07/01/2024 Basic metab olic 1999 panel - Serum or Plasm a urea nitrogen [mass/volume ] in serum or plasma 28 mg/dL low: 8mg/dL high: 23mg/d L high BUN 28 (H) 8 - 23 mg/dL 07/01 4:58 AM EDT [employer] [facility] Not Available Not Available 09/01/2024 16:25:57 07/02/19 25 07/01/2024 Basic metab olic 1999 panel - Serum or Plasm a creatinine [mass/volume ] in serum or plasma 1.19 mg/dL low: 0.76mg /dLhig h: 1.27mg /dL Creat inine 1.19 0.76 - 1.27 mg/dL 07/01 4:58 AM EDT [employer] [facility] Not Available Not Available 09/01/2024 16:25:57 07/02/19 25 07/01/2024 Basic metab olic 1999 panel - Serum or Plasm a sodium [moles/volum e] in serum or plasma 136 mmol/ L low: 136mmo l/Lhig h: 145mmo l/L Sodiu m 136 136 - 145 mmol/ L 07/01 4:58 AM EDT [employer] [facility] Not Available Not Available 09/01/2024 16:25:57 07/02/19 25 07/01/2024 Basic metab olic 1999 panel - Serum or Plasm a potassium [moles/volum e] in serum or plasma 4.6 mmol/ L low: 3.5mmo l/Lhig h: 5.2mmo l/L Potas sium 4.6 3.5 - 5.2 mmol/ L 07/01 4:58 AM EDT [employer] [facility] Not Available Not Available 09/01/2024 16:25:57 07/02/19 25 07/01/2024 Basic metab olic 2000 panel - Serum or Plasm a chloride [moles/volum e] in serum or plasma 95 mmol/ L low: 98mmol /Lhigh : 107mmo l/L low Chlor chava 95 (L) 98 - 107 mmol/ L 07/01 4:58 AM EDT [employer] [facility] Not Available Not Available 09/01/2024 16:25:57 07/02/19 25 07/01/2024 Basic metab olic 2000 panel - Serum or Plasm a carbon dioxide, total [moles/volum e] in serum or plasma 28 mmol/ L low: 22mmol /Lhigh : 29mmol /L CO2 28.0 22.0 - 29.0 mmol/ L 07/01 4:58 AM EDT [employer] [facility] Not Available Not Available 09/01/2024 16:25:57 07/02/19 25 07/01/2024 Basic metab olic 2000 panel - Serum or Plasm a calcium [moles/volum e] in specimen 9.2 mg/dL low: 8.6mg/ dLhigh : 10.5mg /dL Calci um 9.2 8.6 - 10.5 mg/dL 07/01 4:58 AM EDT [employer] [facility] Not Available Not Available 09/01/2024 16:25:57 07/02/19 25 07/01/2024 Basic metab olic 2000 panel - Serum or Plasm a urea nitrogen/cre atinine [mass ratio] in serum or plasma 23.5 low: 7high: 25 BUN/C reati nine Ratio 23.5 7.0 - 25.0 07/01 4:58 AM EDT [employer] [facility] Not Available Not Available 09/01/2024 16:25:57 07/02/19 25 07/01/2024 Basic metab olic 1999 panel - Serum or Plasm a anion gap in serum or plasma by calculated.3 ions 13 mmol/ L low: 5mmol/ Lhigh: 15mmol /L Anion Gap 13.0 5.0 - 15.0 mmol/ L 07/01 4:58 AM EDT [facility] [facility] Not Available Not Available 09/01/2024 16:25:57 07/02/19 25 07/01/2024 Basic metab olic 1999 panel - Serum or Plasm a glomerular filtration rate [volume rate/area] in serum, plasma or blood by creatinine-b ased formula (CKD-epi 2020)/1.73 sq M 68.6 mL/mi n/1.7 3 low: 60mL/m in/1.7 3 eGFR 68.6 >60.0 mL/mi n/1.7 3 07/01 4:58 AM EDT [employer] [facility] Not Available Not Available 09/01/2024 16:25:57 07/02/19 25 07/01/2024 Basic metab olic 1999 panel - Serum or Plasm a Unknown Analyte GFR Catego kylee in Chroni c Kidney Diseas e (CKD) GFR Catego ry GFR (mL/mi n/1.73 ) Interp retati on G1 90 or greate r Normal or high (1) G2 60-89 Mild decrea se (1) G3a 45-59 Mild to modera te decrea se G3b 30-44 Modera te to severe decrea se G4 15-29 Severe decrea se G5 14 or less Kidney failur e (1)In the absenc e of eviden ce of kidney diseas e, neithe r GFR catego ry G1 or G2 fulfil l the criter ia for CKD. eGFR calcul ation 2020 CKD-EP I creati nine equati on, which does not includ e race as a factor GFR Categ ories in Chron ic Kidne y Disea se (CKD) GFR Categ ory GFR (mL/m in/1. 73) Inter preta tion G1 90 or great er Etta l or high (1) G2 60-89 Mild decre ase (1) G3a 45-59 Mild to moder ate decre ase G3b 30-44 Moder ate to sever e decre ase G4 15-29 Sever e decre ase G5 14 or less Kidne y failu re (1)In the absen ce of evide nce of kidne y disea se, neith er GFR categ ory G1 or G2 fulfi ll the crite [place] for CKD. eGFR calcu latio n 2020 CKD-E PI creat inine equat ion, which does not inclu de race as a facto r Not Available Not Available 09/01/2024 16:25:57 07/02/19 25 07/01/2024 Basic metab olic 2000 panel - Serum or Plasm a interpretati on and review of laboratory results Abnorm al Not Available Not Available 16:25:57 07/03/19 25 07/02/2024 Basic metab olic 2000 panel - Serum or Plasm a glucose [mass/volume ] in capillary blood by glucometer 215 mg/dL low: 70mg/d Lhigh: 130mg/ dL high Gluco se 215 (H) 70 - 130 mg/dL 07/02 7:[address] [facility] Not Available Not Available 09/01/2024 16:25:58 07/03/19 25 07/02/2024 Basic metab olic 2000 panel - Serum or Plasm a interpretati on and review of laboratory results Abnorm al Not Available Not Available 16:25:58 07/03/19 25 07/02/2024 Basic metab olic 2000 panel - Serum or Plasm a glucose [mass/volume ] in capillary blood by glucometer 236 mg/dL low: 70mg/d Lhigh: 130mg/ dL high Gluco se 236 (H) 70 - 130 mg/dL 07/02 5:[address] [facility] Not Available Not Available 09/01/2024 16:25:58 07/03/19 25 07/02/2024 Basic metab olic 2000 panel - Serum or Plasm a interpretati on and review of laboratory results Abnorm al Not Available Not Available 16:25:58 07/03/19 25 07/02/2024 Basic metab olic 2000 panel - Serum or Plasm a glucose [mass/volume ] in capillary blood by glucometer 232 mg/dL low: 70mg/d Lhigh: 130mg/ dL high Gluco se 232 (H) 70 - 130 mg/dL 07/02 4:16 PM EDT [facility] [employer] [facility] Not Available Not Available 09/01/2024 16:25:58 07/03/19 25 07/02/2024 Basic metab olic 2000 panel - Serum or Plasm a interpretati on and review of laboratory results Abnorm al Not Available Not Available 16:25:58 07/03/19 25 07/02/2024 Basic metab olic 2000 panel - Serum or Plasm a glucose [mass/volume ] in capillary blood by glucometer 250 mg/dL low: 70mg/d Lhigh: 130mg/ dL high Gluco se 250 (H) 70 - 130 mg/dL 07/02 1:55 PM EDT [facility] [employer] [facility] Not Available Not Available 09/01/2024 16:25:58 07/03/19 25 07/02/2024 Basic metab olic 2000 panel - Serum or Plasm a interpretati on and review of laboratory results Abnorm al Not Available Not Available 16:25:58 07/03/19 25 07/02/2024 Basic metab olic 2000 panel - Serum or Plasm a glucose [mass/volume ] in capillary blood by glucometer 251 mg/dL low: 70mg/d Lhigh: 130mg/ dL high Gluco se 251 (H) 70 - 130 mg/dL 07/02 8:51 AM EDT [facility] [employer] [facility] Not Available Not Available 09/01/2024 16:25:58 07/03/19 25 07/02/2024 Basic metab olic 2000 panel - Serum or Plasm a interpretati on and review of laboratory results Abnorm al Not Available Not Available 16:25:58 07/03/19 25 07/02/2024 Basic metab olic 2000 panel - Serum or Plasm a glucose [mass/volume ] in capillary blood by glucometer 242 mg/dL low: 70mg/d Lhigh: 130mg/ dL high Gluco se 242 (H) 70 - 130 mg/dL 07/02 6:43 AM EDT [facility] Not Available Not Available 09/01/2024 16:25:58 07/03/19 25 07/02/2024 Basic metab olic 2000 panel - Serum or Plasm a interpretati on and review of laboratory results Abnorm al Not Available Not Available 16:25:58 07/03/1907/02/2024 CBC panel - Blood by Autom ated count leukocytes [#/volume] corrected for nucleated erythrocytes in blood by automated count 10.34 10*3/ mm3 low: 3.410* 3/mm3h igh: 10.810 *3/mm3 WBC 10.34 3.40 - 10.80 10*3/ mm3 07/02 6:23 AM EDT [facility] Not Available Not Available 09/01/2024 16:25:58 07/03/1907/02/2024 CBC panel - Blood by Autom ated count erythrocytes [#/volume] in blood by automated count 4.64 10*6/ mm3 low: 4.1410 *6/mm3 high: 5.810* 6/mm3 RBC 4.64 4.14 - 5.80 10*6/ mm3 07/02 6:23 AM EDT [facility] Not Available Not Available 09/01/2024 16:25:58 07/03/1907/02/2024 CBC panel - Blood by Autom ated count hemoglobin [mass/volume ] in blood 11.5 g/dL low: 13g/dL high: 17.7g/ dL low Hemog lobin 11.5 (L) 13.0 - 17.7 g/dL 07/02 6:23 AM EDT [facility] Not Available Not Available 09/01/2024 16:25:58 07/03/19 25 07/02/2024 CBC panel - Blood by Autom ated count hematocrit [volume fraction] of blood by automated count 37.7 % low: 37.5%h igh: 51% Hemat ocrit 37.7 37.5 - 51.0 % 07/02 6:23 AM EDT [facility] Not Available Not Available 09/01/2024 16:25:58 07/03/19 25 07/02/2024 CBC panel - Blood by Autom ated count MCV [entitic mean volume] in red blood cells by automated count 81.3 fL low: 79fLhi gh: 97fL MCV 81.3 79.0 - 97.0 fL 07/02 6:23 AM EDT [employer] [facility] Not Available Not Available 09/01/2024 16:25:58 07/03/19 25 07/02/2024 CBC panel - Blood by Autom ated count MCH [entitic mass] by automated count 24.8 pg low: 26.6pg high: 33pg low MCH 24.8 (L) 26.6 - 33.0 pg 07/02 6:23 AM EDT [facility] Not Available Not Available 09/01/2024 16:25:58 07/03/19 25 07/02/2024 CBC panel - Blood by Autom ated count MCHC [entitic mass/volume] in red blood cells by automated count 30.5 g/dL low: 31.5g/ dLhigh : 35.7g/ dL low MCHC 30.5 (L) 31.5 - 35.7 g/dL 07/02 6:23 AM EDT [employer] Not Available Not Available 09/01/2024 16:25:58 07/03/19 25 07/02/2024 CBC panel - Blood by Autom ated count erythrocyte [distwidth] in red blood cells by automated count 17.5 % low: 12.3%h igh: 15.4% high RDW 17.5 (H) 12.3 - 15.4 % 07/02 6:23 AM [employer] [facility] Not Available Not Available 09/01/2024 16:25:58 07/03/19 25 07/02/2024 CBC panel - Blood by Autom ated count RDW-SD 50.9 fL low: 37fLhi gh: 54fL RDW-S D 50.9 37.0 - 54.0 fl 07/02 6:23 AM EDT [employer] Not Available Not Available 09/01/2024 16:25:58 07/03/19 25 07/02/2024 CBC panel - Blood by Autom ated count platelet [entitic mean volume] in blood by automated count 9.2 fL low: 6fLhig h: 12fL MPV 9.2 6.0 - 12.0 fL 07/02 6:23 AM EDT [facility] Not Available Not Available 09/01/2024 16:25:58 07/03/19 25 07/02/2024 CBC panel - Blood by Autom ated count platelets [#/volume] in blood by automated count 442 10*3/ mm3 low: 94404* 3/mm3h igh: 19051* 3/mm3 Plate lets 442 140 - 450 10*3/ mm3 07/02 6:23 AM EDT [facility] Not Available Not Available 09/01/2024 16:25:58 07/03/19 25 07/02/2024 CBC panel - Blood by Autom ated count interpretati on and review of laboratory results Abnorm al Not Available Not Available 16:25:58 07/03/19 25 07/02/2024 Basic metab olic 2000 panel - Serum or Plasm a glucose [mass/volume ] in serum or plasma 260 mg/dL low: 65mg/d Lhigh: 99mg/d L high Gluco se 260 (H) 65 - 99 mg/dL 07/02 7:40 AM EDT [facility] Not Available Not Available 09/01/2024 16:25:57 07/03/19 25 07/02/2024 Basic metab olic 2000 panel - Serum or Plasm a urea nitrogen [mass/volume ] in serum or plasma 26 mg/dL low: 8mg/dL high: 23mg/d L high BUN 26 (H) 8 - 23 mg/dL 07/02 7:40 AM EDT [facility] [facility] Not Available Not Available 09/01/2024 16:25:57 07/03/19 25 07/02/2024 Basic metab olic 1999 panel - Serum or Plasm a creatinine [mass/volume ] in serum or plasma 1.11 mg/dL low: 0.76mg /dLhig h: 1.27mg /dL Creat inine 1.11 0.76 - 1.27 mg/dL 07/02 7:40 AM EDT [employer] [facility] [facility] [facility] Not Available Not Available 09/01/2024 16:25:57 07/03/19 25 07/02/2024 Basic metab olic 1999 panel - Serum or Plasm a sodium [moles/volum e] in serum or plasma 139 mmol/ L low: 136mmo l/Lhig h: 145mmo l/L Sodiu m 139 136 - 145 mmol/ L 07/02 7:40 AM EDT [employer] [facility] [facility] Not Available Not Available 09/01/2024 16:25:57 07/03/19 25 07/02/2024 Basic metab olic 1999 panel - Serum or Plasm a potassium [moles/volum e] in serum or plasma 4.1 mmol/ L low: 3.5mmo l/Lhig h: 5.2mmo l/L Potas sium 4.1 3.5 - 5.2 mmol/ L 07/02 7:40 AM EDT [facility] [facility] Not Available Not Available 09/01/2024 16:25:57 07/03/19 25 07/02/2024 Basic metab olic 1999 panel - Serum or Plasm a chloride [moles/volum e] in serum or plasma 96 mmol/ L low: 98mmol /Lhigh : 107mmo l/L low Chlor chava 96 (L) 98 - 107 mmol/ L 07/02 7:40 AM EDT [employer] [facility] Not Available Not Available 09/01/2024 16:25:57 07/03/19 25 07/02/2024 Basic metab olic 1999 panel - Serum or Plasm a carbon dioxide, total [moles/volum e] in serum or plasma 24 mmol/ L low: 22mmol /Lhigh : 29mmol /L CO2 24.0 22.0 - 29.0 mmol/ L 07/02 7:40 AM EDT [facility] Not Available Not Available 09/01/2024 16:25:57 07/03/19 25 07/02/2024 Basic metab olic 2000 panel - Serum or Plasm a calcium [moles/volum e] in specimen 9.2 mg/dL low: 8.6mg/ dLhigh : 10.5mg /dL Calci um 9.2 8.6 - 10.5 mg/dL 07/02 7:40 AM EDT [facility] Not Available Not Available 09/01/2024 16:25:57 07/03/19 25 07/02/2024 Basic metab olic 1999 panel - Serum or Plasm a urea nitrogen/cre atinine [mass ratio] in serum or plasma 23.4 low: 7high: 25 BUN/C reati nine Ratio 23.4 7.0 - 25.0 07/02 7:40 AM EDT [facility] Not Available Not Available 09/01/2024 16:25:57 07/03/19 25 07/02/2024 Basic metab olic 2000 panel - Serum or Plasm a anion gap in serum or plasma by calculated.3 ions 19 mmol/ L low: 5mmol/ Lhigh: 15mmol /L high Anion Gap 19.0 (H) 5.0 - 15.0 mmol/ L 07/02 7:40 AM EDT [employer] Not Available Not Available 09/01/2024 16:25:57 07/03/19 25 07/02/2024 Basic metab olic 2000 panel - Serum or Plasm a glomerular filtration rate [volume rate/area] in serum, plasma or blood by creatinine-b ased formula (CKD-epi 2020)/1.73 sq M 74.6 mL/mi n/1.7 3 low: 60mL/m in/1.7 3 eGFR 74.6 >60.0 mL/mi n/1.7 3 07/02 7:[address] [facility] Not Available Not Available 09/01/2024 16:25:57 07/03/19 25 07/02/2024 Basic metab olic 2000 panel - Serum or Plasm a Unknown Analyte GFR Catego kylee in Chroni c Kidney Diseas e (CKD) GFR Catego ry GFR (mL/mi n/1.73 ) Interp retati on G1 90 or greate r Normal or high (1) G2 60-89 Mild decrea se (1) G3a 45-59 Mild to modera te decrea se G3b 30-44 Modera te to severe decrea se G4 15-29 Severe decrea se G5 14 or less Kidney failur e (1)In the absenc e of eviden ce of kidney diseas e, neithe r GFR catego ry G1 or G2 fulfil l the criter ia for CKD. eGFR calcul ation 2020 CKD-EP I creati nine equati on, which does not includ e race as a factor GFR Categ ories in Chron ic Kidne y Disea se (CKD) GFR Categ ory GFR (mL/m in/1. 73) Inter preta tion G1 90 or great er Etta l or high (1) G2 60-89 Mild decre ase (1) G3a 45-59 Mild to moder ate decre ase G3b 30-44 Moder ate to sever e decre ase G4 15-29 Sever e decre ase G5 14 or less Kidne y failu re (1)In the absen ce of evide nce of kidne y disea se, neith er GFR categ ory G1 or G2 fulfi ll the crite [place] for CKD. eGFR calcu latio n 2020 CKD-E PI creat inine equat ion, which does not inclu de race as a facto r Not Available Not Available 09/01/2024 16:25:57 07/03/19 25 07/02/2024 Basic metab olic 2000 panel - Serum or Plasm a interpretati on and review of laboratory results Abnorm al Not Available Not Available 16:25:57 07/04/19 25 07/03/2024 Basic metab olic 2000 panel - Serum or Plasm a glucose [mass/volume ] in capillary blood by glucometer 250 mg/dL low: 70mg/d Lhigh: 130mg/ dL high Gluco se 250 (H) 70 - 130 mg/dL 07/03 10:30 PM EDT [facility] [employer] [facility] Not Available Not Available 09/01/2024 16:25:58 07/04/19 25 07/03/2024 Basic metab olic 2000 panel - Serum or Plasm a interpretati on and review of laboratory results Abnorm al Not Available Not Available 16:25:58 07/04/19 25 07/03/2024 Basic metab olic 2000 panel - Serum or Plasm a glucose [mass/volume ] in capillary blood by glucometer 269 mg/dL low: 70mg/d Lhigh: 130mg/ dL high Gluco se 269 (H) 70 - 130 mg/dL 07/03 8:11 PM EDT [facility] [employer] [facility] Not Available Not Available 09/01/2024 16:25:58 07/04/19 25 07/03/2024 Basic metab olic 2000 panel - Serum or Plasm a interpretati on and review of laboratory results Abnorm al Not Available Not Available 16:25:58 07/04/19 25 07/03/2024 Basic metab olic 2000 panel - Serum or Plasm a glucose [mass/volume ] in capillary blood by glucometer 182 mg/dL low: 70mg/d Lhigh: 130mg/ dL high Gluco se 182 (H) 70 - 130 mg/dL 07/03 5:39 PM EDT [facility] [employer] [facility] Not Available Not Available 09/01/2024 16:25:58 07/04/19 25 07/03/2024 Basic metab olic 2000 panel - Serum or Plasm a interpretati on and review of laboratory results Abnorm al Not Available Not Available 16:25:58 07/04/19 25 07/03/2024 Basic metab olic 2000 panel - Serum or Plasm a glucose [mass/volume ] in capillary blood by glucometer 157 mg/dL low: 70mg/d Lhigh: 130mg/ dL high Gluco se 157 (H) 70 - 130 mg/dL 07/03 12:22 PM EDT [facility] [facility] Not Available Not Available 09/01/2024 16:25:58 07/04/19 25 07/03/2024 Basic metab olic 2000 panel - Serum or Plasm a interpretati on and review of laboratory results Abnorm al Not Available Not Available 16:25:58 07/04/19 25 07/03/2024 Basic metab olic 2000 panel - Serum or Plasm a glucose [mass/volume ] in capillary blood by glucometer 324 mg/dL low: 70mg/d Lhigh: 130mg/ dL high Gluco se 324 (H) 70 - 130 mg/dL 07/03 8:30 AM EDT [facility] [facility] Not Available Not Available 09/01/2024 16:25:58 07/04/19 25 07/03/2024 Basic metab olic 2000 panel - Serum or Plasm a interpretati on and review of laboratory results Abnorm al Not Available Not Available 16:25:58 07/04/19 25 07/03/2024 Basic metab olic 2000 panel - Serum or Plasm a glucose [mass/volume ] in capillary blood by glucometer 283 mg/dL low: 70mg/d Lhigh: 130mg/ dL high Gluco se 283 (H) 70 - 130 mg/dL 07/03 7:07 AM EDT [employer] [facility] [facility] [facility] Not Available Not Available 09/01/2024 16:25:58 07/04/19 25 07/03/2024 Basic metab olic 2000 panel - Serum or Plasm a interpretati on and review of laboratory results Abnorm al Not Available Not Available 16:25:58 07/04/19 25 07/03/2024 CBC panel - Blood by Autom ated count leukocytes [#/volume] corrected for nucleated erythrocytes in blood by automated count 11.21 10*3/ mm3 low: 3.410* 3/mm3h igh: 10.810 *3/mm3 high WBC 11.21 (H) 3.40 - 10.80 10*3/ mm3 07/03 5:55 AM EDT [facility] [employer] Not Available Not Available 09/01/2024 16:25:58 07/04/19 25 07/03/2024 CBC panel - Blood by Autom ated count erythrocytes [#/volume] in blood by automated count 4.71 10*6/ mm3 low: 4.1410 *6/mm3 high: 5.810* 6/mm3 RBC 4.71 4.14 - 5.80 10*6/ mm3 07/03 5:55 AM EDT [facility] [employer] Not Available Not Available 09/01/2024 16:25:58 07/04/19 25 07/03/2024 CBC panel - Blood by Autom ated count hemoglobin [mass/volume ] in blood 11.5 g/dL low: 13g/dL high: 17.7g/ dL low Hemog lobin 11.5 (L) 13.0 - 17.7 g/dL 07/03 5:55 AM EDT [facility] [employer] ATORY Not Available Not Available 09/01/2024 16:25:58 07/04/19 25 07/03/2024 CBC panel - Blood by Autom ated count hematocrit [volume fraction] of blood by automated count 40 % low: 37.5%h igh: 51% Hemat ocrit 40.0 37.5 - 51.0 % 07/03 5:55 AM [facility] [employer] ATORY Not Available Not Available 09/01/2024 16:25:58 07/04/1907/03/2024 CBC panel - Blood by Autom ated count MCV [entitic mean volume] in red blood cells by automated count 84.9 fL low: 79fLhi gh: 97fL MCV 84.9 79.0 - 97.0 fL 07/03 5:55 AM [facility] [employer] ATORY Not Available Not Available 09/01/2024 16:25:58 07/04/19 25 07/03/2024 CBC panel - Blood by Autom ated count MCH [entitic mass] by automated count 24.4 pg low: 26.6pg high: 33pg low MCH 24.4 (L) 26.6 - 33.0 pg 07/03 5:55 AM EDT [employer] ATORY Not Available Not Available 09/01/2024 16:25:58 07/04/19 25 07/03/2024 CBC panel - Blood by Autom ated count MCHC [entitic mass/volume] in red blood cells by automated count 28.8 g/dL low: 31.5g/ dLhigh : 35.7g/ dL low MCHC 28.8 (L) 31.5 - 35.7 g/dL 07/03 5:55 AM EDT [employer] ATORY Not Available Not Available 09/01/2024 16:25:58 07/04/1907/03/2024 CBC panel - Blood by Autom ated count erythrocyte [distwidth] in red blood cells by automated count 17.7 % low: 12.3%h igh: 15.4% high RDW 17.7 (H) 12.3 - 15.4 % 07/03 5:55 AM EDT [employer] ATORY Not Available Not Available 09/01/2024 16:25:58 07/04/19 25 07/03/2024 CBC panel - Blood by Autom ated count RDW-SD 53.3 fL low: 37fLhi gh: 54fL RDW-S D 53.3 37.0 - 54.0 fl 07/03 5:55 AM EDT [employer] AT[facility] Not Available Not Available 09/01/2024 16:25:58 07/04/19 25 07/03/2024 CBC panel - Blood by Autom ated count platelet [entitic mean volume] in blood by automated count 9.3 fL low: 6fLhig h: 12fL MPV 9.3 6.0 - 12.0 fL 07/03 5:55 AM EDT [employer] ATORY Not Available Not Available 09/01/2024 16:25:58 07/04/19 25 07/03/2024 CBC panel - Blood by Autom ated count platelets [#/volume] in blood by automated count 409 10*3/ mm3 low: 00526* 3/mm3h igh: 61921* 3/mm3 Plate lets 409 140 - 450 10*3/ mm3 07/03 5:55 AM EDT [employer] ATORY Not Available Not Available 09/01/2024 16:25:58 07/04/19 25 07/03/2024 CBC panel - Blood by Autom ated count interpretati on and review of laboratory results Abnorm al Not Available Not Available 16:25:58 07/04/19 25 07/03/2024 Basic metab olic 2000 panel - Serum or Plasm a glucose [mass/volume ] in serum or plasma 256 mg/dL low: 65mg/d Lhigh: 99mg/d L high Gluco se 256 (H) 65 - 99 mg/dL 07/03 7:11 AM EDT [employer] ATORY Not Available Not Available 09/01/2024 16:25:58 07/04/19 25 07/03/2024 Basic metab olic 1999 panel - Serum or Plasm a urea nitrogen [mass/volume ] in serum or plasma 24 mg/dL low: 8mg/dL high: 23mg/d L high BUN 24 (H) 8 - 23 mg/dL 07/03 7:11 AM EDT [employer] AT[facility] Not Available Not Available 09/01/2024 16:25:58 07/04/19 25 07/03/2024 Basic metab olic 1999 panel - Serum or Plasm a creatinine [mass/volume ] in serum or plasma 1.04 mg/dL low: 0.76mg /dLhig h: 1.27mg /dL Creat inine 1.04 0.76 - 1.27 mg/dL 07/03 7:11 AM EDT [employer] ATORY Not Available Not Available 09/01/2024 16:25:58 07/04/19 25 07/03/2024 Basic metab olic 2000 panel - Serum or Plasm a sodium [moles/volum e] in serum or plasma 133 mmol/ L low: 136mmo l/Lhig h: 145mmo l/L low Sodiu m 133 (L) 136 - 145 mmol/ L 07/03 7:11 AM EDT [employer] [facility] [employer] [facility] AT[facility] Not Available Not Available 09/01/2024 16:25:58 07/04/19 25 07/03/2024 Basic metab olic 2000 panel - Serum or Plasm a potassium [moles/volum e] in serum or plasma 4.9 mmol/ L low: 3.5mmo l/Lhig h: 5.2mmo l/L Potas sium 4.9 3.5 - 5.2 mmol/ L 07/03 7:[address] [facility] [employer] [employer] ATORY Not Available Not Available 09/01/2024 16:25:58 07/04/19 25 07/03/2024 Basic metab olic 1999 panel - Serum or Plasm a chloride [moles/volum e] in serum or plasma 92 mmol/ L low: 98mmol /Lhigh : 107mmo l/L low Chlor chava 92 (L) 98 - 107 mmol/ L 07/03 7:[address] [facility] [employer] AT[facility] Not Available Not Available 09/01/2024 16:25:58 07/04/19 25 07/03/2024 Basic metab olic 1999 panel - Serum or Plasm a carbon dioxide, total [moles/volum e] in serum or plasma 21 mmol/ L low: 22mmol /Lhigh : 29mmol /L low CO2 21.0 (L) 22.0 - 29.0 mmol/ L 07/03 7:11 AM EDT [employer] [facility] [employer] [facility] AT[facility] Not Available Not Available 09/01/2024 16:25:58 07/04/19 25 07/03/2024 Basic metab olic 1999 panel - Serum or Plasm a calcium [moles/volum e] in specimen 9.2 mg/dL low: 8.6mg/ dLhigh : 10.5mg /dL Calci um 9.2 8.6 - 10.5 mg/dL 07/03 7:[address] [facility] [facility] [employer] ATORY Not Available Not Available 09/01/2024 16:25:58 07/04/19 25 07/03/2024 Basic metab olic 1999 panel - Serum or Plasm a urea nitrogen/cre atinine [mass ratio] in serum or plasma 23.1 low: 7high: 25 BUN/C reati nine Ratio 23.1 7.0 - 25.0 07/03 7:11 AM EDT [employer] ATORY Not Available Not Available 09/01/2024 16:25:58 07/04/19 25 07/03/2024 Basic [employer] olic 1999 panel - Serum or Plasm a anion gap in serum or plasma by calculated.3 ions 20 mmol/ L low: 5mmol/ Lhigh: 15mmol /L high Anion Gap 20.0 (H) 5.0 - 15.0 mmol/ L 07/03 7:11 AM EDT [employer] ATORY Not Available Not Available 09/01/2024 16:25:58 07/04/19 25 07/03/2024 Basic [employer] olic 1999 panel - Serum or Plasm a glomerular filtration rate [volume rate/area] in serum, plasma or blood by creatinine-b ased formula (CKD-epi 2020)/1.73 sq M 80.7 mL/mi n/1.7 3 low: 60mL/m in/1.7 3 eGFR 80.7 >60.0 mL/mi n/1.7 3 07/03 7:11 AM EDT [employer] ATORY Not Available Not Available 09/01/2024 16:25:58 07/04/19 25 07/03/2024 Basic [employer] olic 1999 panel - Serum or Plasm a Unknown Analyte GFR Catego kylee in Chroni c Kidney Diseas e (CKD) GFR Catego ry GFR (mL/mi n/1.73 ) Interp retati on G1 90 or greate r Normal or high (1) G2 60-89 Mild decrea se (1) G3a 45-59 Mild to modera te decrea se G3b 30-44 Modera te to severe decrea se G4 15-29 Severe decrea se G5 14 or less Kidney failur e (1)In the absenc e of eviden ce of kidney diseas e, neithe r GFR catego ry G1 or G2 fulfil l the criter ia for CKD. eGFR calcul ation 2020 CKD-EP I creati nine equati on, which does not includ e race as a factor GFR Categ ories in Chron ic Kidne y Disea se (CKD) GFR Categ ory GFR (mL/m in/1. 73) Inter preta tion G1 90 or great er Etta l or high (1) G2 60-89 Mild decre ase (1) G3a 45-59 Mild to moder ate decre ase G3b 30-44 Moder ate to sever e decre ase G4 15-29 Sever e decre ase G5 14 or less Kidne y failu re (1)In the absen ce of evide nce of kidne y disea se, neith er GFR categ ory G1 or G2 fulfi ll the crite [place] for CKD. eGFR calcu latio n 2020 CKD-E PI creat inine equat ion, which does not inclu de race as a facto r Not Available Not Available 09/01/2024 16:25:58 07/04/19 25 07/03/2024 Basic metab olic 2000 panel - Serum or Plasm a interpretati on and review of laboratory results Abnorm al Not Available Not Available 16:25:58 07/05/19 25 07/04/2024 Basic metab olic 2000 panel - Serum or Plasm a glucose [mass/volume ] in capillary blood by glucometer 221 mg/dL low: 70mg/d Lhigh: 130mg/ dL high Gluco se 221 (H) 70 - 130 mg/dL 07/04 9:[address] [facility] AT[facility] Not Available Not Available 09/01/2024 16:25:59 07/05/19 25 07/04/2024 Basic metab olic 2000 panel - Serum or Plasm a interpretati on and review of laboratory results Abnorm al Not Available Not Available 16:25:59 07/05/19 25 07/04/2024 Basic metab olic 2000 panel - Serum or Plasm a glucose [mass/volume ] in capillary blood by glucometer 222 mg/dL low: 70mg/d Lhigh: 130mg/ dL high Gluco se 222 (H) 70 - 130 mg/dL 07/04 7:[address] [facility] Not Available Not Available 09/01/2024 16:25:59 07/05/19 25 07/04/2024 Basic metab olic 2000 panel - Serum or Plasm a interpretati on and review of laboratory results Abnorm al Not Available Not Available 16:25:59 07/05/19 25 07/04/2024 Basic metab olic 2000 panel - Serum or Plasm a glucose [mass/volume ] in capillary blood by glucometer 220 mg/dL low: 70mg/d Lhigh: 130mg/ dL high Gluco se 220 (H) 70 - 130 mg/dL 07/04 5:[address] [facility] Not Available Not Available 09/01/2024 16:25:59 07/05/19 25 07/04/2024 Basic metab olic 2000 panel - Serum or Plasm a interpretati on and review of laboratory results Abnorm al Not Available Not Available 16:25:59 07/05/19 25 07/04/2024 Basic metab olic 2000 panel - Serum or Plasm a glucose [mass/volume ] in capillary blood by glucometer 171 mg/dL low: 70mg/d Lhigh: 130mg/ dL high Gluco se 171 (H) 70 - 130 mg/dL 07/04 12:28 PM EDT [facility] [employer] [facility] [employer] [facility] Not Available Not Available 09/01/2024 16:25:59 07/05/19 25 07/04/2024 Basic metab olic 2000 panel - Serum or Plasm a interpretati on and review of laboratory results Abnorm al Not Available Not Available 16:25:59 07/05/19 25 07/04/2024 Basic metab olic 2000 panel - Serum or Plasm a glucose [mass/volume ] in capillary blood by glucometer 310 mg/dL low: 70mg/d Lhigh: 130mg/ dL high Gluco se 310 (H) 70 - 130 mg/dL 07/04 7:[address] [facility] Not Available Not Available 09/01/2024 16:25:59 07/05/19 25 07/04/2024 Basic metab olic 2000 panel - Serum or Plasm a interpretati on and review of laboratory results Abnorm al Not Available Not Available 16:25:59 07/05/19 25 07/04/2024 CBC panel - Blood by Autom ated count leukocytes [#/volume] corrected for nucleated erythrocytes in blood by automated count 10.95 10*3/ mm3 low: 3.410* 3/mm3h igh: 10.810 *3/mm3 high WBC 10.95 (H) 3.40 - 10.80 10*3/ mm3 07/04 5:18 AM EDT [employer] ATORY Not Available Not Available 09/01/2024 16:25:59 07/05/19 25 07/04/2024 CBC panel - Blood by Autom ated count erythrocytes [#/volume] in blood by automated count 4.54 10*6/ mm3 low: 4.1410 *6/mm3 high: 5.810* 6/mm3 RBC 4.54 4.14 - 5.80 10*6/ mm3 07/04 5:18 AM EDT [employer] [facility] ATORY Not Available Not Available 09/01/2024 16:25:59 07/05/1907/04/2024 CBC panel - Blood by Autom ated count hemoglobin [mass/volume ] in blood 11.1 g/dL low: 13g/dL high: 17.7g/ dL low Hemog lobin 11.1 (L) 13.0 - 17.7 g/dL 07/04 5:18 AM EDT [employer] ATORY Not Available Not Available 09/01/2024 16:25:59 07/05/19 25 07/04/2024 CBC panel - Blood by Autom ated count hematocrit [volume fraction] of blood by automated count 37.3 % low: 37.5%h igh: 51% low Hemat ocrit 37.3 (L) 37.5 - 51.0 % 07/04 5:18 AM EDT [employer] [facility] ATORY Not Available Not Available 09/01/2024 16:25:59 07/05/19 25 07/04/2024 CBC panel - Blood by Autom ated count MCV [entitic mean volume] in red blood cells by automated count 82.2 fL low: 79fLhi gh: 97fL MCV 82.2 79.0 - 97.0 fL 07/04 5:18 AM EDT [employer] [facility] ATORY Not Available Not Available 09/01/2024 16:25:59 07/05/19 25 07/04/2024 CBC panel - Blood by Autom ated count MCH [entitic mass] by automated count 24.4 pg low: 26.6pg high: 33pg low MCH 24.4 (L) 26.6 - 33.0 pg 07/04 5:18 AM EDT [employer] ATORY Not Available Not Available 09/01/2024 16:25:59 07/05/19 25 07/04/2024 CBC panel - Blood by Autom ated count MCHC [entitic mass/volume] in red blood cells by automated count 29.8 g/dL low: 31.5g/ dLhigh : 35.7g/ dL low MCHC 29.8 (L) 31.5 - 35.7 g/dL 07/04 5:18 AM EDT [employer] ATORY Not Available Not Available 09/01/2024 16:25:59 07/05/19 25 07/04/2024 CBC panel - Blood by Autom ated count erythrocyte [distwidth] in red blood cells by automated count 17.6 % low: 12.3%h igh: 15.4% high RDW 17.6 (H) 12.3 - 15.4 % 07/04 5:18 AM EDT [employer] ATORY Not Available Not Available 09/01/2024 16:25:59 07/05/19 25 07/04/2024 CBC panel - Blood by Autom ated count RDW-SD 51.4 fL low: 37fLhi gh: 54fL RDW-S D 51.4 37.0 - 54.0 fl 07/04 5:18 AM EDT [employer] ATORY Not Available Not Available 09/01/2024 16:25:59 07/05/19 25 07/04/2024 CBC panel - Blood by Autom ated count platelet [entitic mean volume] in blood by automated count 8.8 fL low: 6fLhig h: 12fL MPV 8.8 6.0 - 12.0 fL 07/04 5:18 AM EDT [facility] [employer] AT[facility] Not Available Not Available 09/01/2024 16:25:59 07/05/19 25 07/04/2024 CBC panel - Blood by Autom ated count platelets [#/volume] in blood by automated count 442 10*3/ mm3 low: 89369* 3/mm3h igh: 49429* 3/mm3 Plate lets 442 140 - 450 10*3/ mm3 07/04 5:18 AM EDT [facility] [email or web address] [facility] ATORY Not Available Not Available 09/01/2024 16:25:59 07/05/19 25 07/04/2024 CBC panel - Blood by Autom ated count interpretati on and review of laboratory results Abnorm al Not Available Not Available 16:25:59 07/05/19 25 07/04/2024 Basic metab olic 2000 panel - Serum or Plasm a glucose [mass/volume ] in serum or plasma 320 mg/dL low: 65mg/d Lhigh: 99mg/d L high Gluco se 320 (H) 65 - 99 mg/dL 07/04 5:52 AM EDT [facility] [employer] ATORY Not Available Not Available 09/01/2024 16:25:59 07/05/19 25 07/04/2024 Basic metab olic 2000 panel - Serum or Plasm a urea nitrogen [mass/volume ] in serum or plasma 22 mg/dL low: 8mg/dL high: 23mg/d L BUN 22 8 - 23 mg/dL 07/04 5:52 AM EDT [facility] [email or web address] [facility] ATORY Not Available Not Available 09/01/2024 16:25:59 07/05/19 25 07/04/2024 Basic metab olic 2000 panel - Serum or Plasm a creatinine [mass/volume ] in serum or plasma 1.12 mg/dL low: 0.76mg /dLhig h: 1.27mg /dL Creat inine 1.12 0.76 - 1.27 mg/dL 07/04 5:52 AM EDT [employer] ATORY Not Available Not Available 09/01/2024 16:25:59 07/05/19 25 07/04/2024 Basic metab olic 1999 panel - Serum or Plasm a sodium [moles/volum e] in serum or plasma 133 mmol/ L low: 136mmo l/Lhig h: 145mmo l/L low Sodiu m 133 (L) 136 - 145 mmol/ L 07/04 5:52 AM EDT [employer] ATORY Not Available Not Available 09/01/2024 16:25:59 07/05/19 25 07/04/2024 Basic metab olic 1999 panel - Serum or Plasm a potassium [moles/volum e] in serum or plasma 4.4 mmol/ L low: 3.5mmo l/Lhig h: 5.2mmo l/L Potas sium 4.4 3.5 - 5.2 mmol/ L 07/04 5:52 AM EDT [employer] ATORY Not Available Not Available 09/01/2024 16:25:59 07/05/19 25 07/04/2024 Basic metab olic 1999 panel - Serum or Plasm a chloride [moles/volum e] in serum or plasma 93 mmol/ L low: 98mmol /Lhigh : 107mmo l/L low Chlor chava 93 (L) 98 - 107 mmol/ L 07/04 5:52 AM EDT [employer] [facility] ATORY Not Available Not Available 09/01/2024 16:25:59 07/05/19 25 07/04/2024 Basic metab olic 1999 panel - Serum or Plasm a carbon dioxide, total [moles/volum e] in serum or plasma 29 mmol/ L low: 22mmol /Lhigh : 29mmol /L CO2 29.0 22.0 - 29.0 mmol/ L 07/04 5:52 AM EDT [employer] ATORY Not Available Not Available 09/01/2024 16:25:59 07/05/19 25 07/04/2024 Basic metab olic 2000 panel - Serum or Plasm a calcium [moles/volum e] in specimen 9.3 mg/dL low: 8.6mg/ dLhigh : 10.5mg /dL Calci um 9.3 8.6 - 10.5 mg/dL 07/04 5:52 AM EDT [employer] ATORY Not Available Not Available 09/01/2024 16:25:59 07/05/19 25 07/04/2024 Basic metab olic 1999 panel - Serum or Plasm a urea nitrogen/cre atinine [mass ratio] in serum or plasma 19.6 low: 7high: 25 BUN/C reati nine Ratio 19.6 7.0 - 25.0 07/04 5:52 AM EDT [employer] ATORY Not Available Not Available 09/01/2024 16:25:59 07/05/19 25 07/04/2024 Basic metab olic 1999 panel - Serum or Plasm a anion gap in serum or plasma by calculated.3 ions 11 mmol/ L low: 5mmol/ Lhigh: 15mmol /L Anion Gap 11.0 5.0 - 15.0 mmol/ L 07/04 5:52 AM EDT [employer] ATORY Not Available Not Available 09/01/2024 16:25:59 07/05/19 25 07/04/2024 Basic [employer] olic 2000 panel - Serum or Plasm a glomerular filtration rate [volume rate/area] in serum, plasma or blood by creatinine-b ased formula (CKD-epi 2020)/1.73 sq M 73.8 mL/mi n/1.7 3 low: 60mL/m in/1.7 3 eGFR 73.8 >60.0 mL/mi n/1.7 3 07/04 5:52 AM EDT [employer] ATORY Not Available Not Available 09/01/2024 16:25:59 07/05/19 25 07/04/2024 Basic metab olic 2000 panel - Serum or Plasm a Unknown Analyte GFR Catego kylee in Chroni c Kidney Diseas e (CKD) GFR Catego ry GFR (mL/mi n/1.73 ) Interp retati on G1 90 or greate r Normal or high (1) G2 60-89 Mild decrea se (1) G3a 45-59 Mild to modera te decrea se G3b 30-44 Modera te to severe decrea se G4 15-29 Severe decrea se G5 14 or less Kidney failur e (1)In the absenc e of eviden ce of kidney diseas e, neithe r GFR catego ry G1 or G2 fulfil l the criter ia for CKD. eGFR calcul ation 2020 CKD-EP I creati nine equati on, which does not includ e race as a factor GFR Categ ories in Chron ic Kidne y Disea se (CKD) GFR Categ ory GFR (mL/m in/1. 73) Inter preta tion G1 90 or great er Etta l or high (1) G2 60-89 Mild decre ase (1) G3a 45-59 Mild to moder ate decre ase G3b 30-44 Moder ate to sever e decre ase G4 15-29 Sever e decre ase G5 14 or less Kidne y failu re (1)In the absen ce of evide nce of kidne y disea se, neith er GFR categ ory G1 or G2 fulfi ll the crite [place] for CKD. eGFR calcu latio n 2020 CKD-E PI creat inine equat ion, which does not inclu de race as a facto r Not Available Not Available 09/01/2024 16:25:59 07/05/1907/04/2024 Basic metab olic 2000 panel - Serum or Plasm a interpretati on and review of laboratory results Abnorm al Not Available Not Available 16:25:59 07/06/19 25 07/05/2024 Basic metab olic 2000 panel - Serum or Plasm a glucose [mass/volume ] in capillary blood by glucometer 194 mg/dL low: 70mg/d Lhigh: 130mg/ dL high Gluco se 194 (H) 70 - 130 mg/dL 07/05 8:[address] [employer] [facility] [employer] AT[facility] Not Available Not Available 09/01/2024 16:25:59 07/06/19 25 07/05/2024 Basic metab olic 2000 panel - Serum or Plasm a interpretati on and review of laboratory results Abnorm al Not Available Not Available 16:25:59 07/06/19 25 07/05/2024 Basic metab olic 2000 panel - Serum or Plasm a glucose [mass/volume ] in capillary blood by glucometer 220 mg/dL low: 70mg/d Lhigh: 130mg/ dL high Gluco se 220 (H) 70 - 130 mg/dL 07/05 5:[address] [employer] [facility] [employer] [employer] [facility] AT[facility] Not Available Not Available 09/01/2024 16:25:59 07/06/19 25 07/05/2024 Basic metab olic 2000 panel - Serum or Plasm a interpretati on and review of laboratory results Abnorm al Not Available Not Available 16:25:59 07/06/19 25 07/05/2024 Basic metab olic 2000 panel - Serum or Plasm a glucose [mass/volume ] in capillary blood by glucometer 214 mg/dL low: 70mg/d Lhigh: 130mg/ dL high Gluco se 214 (H) 70 - 130 mg/dL 07/05 12:52 PM EDT [employer] [facility] AT[facility] Not Available Not Available 09/01/2024 16:25:59 07/06/19 25 07/05/2024 Basic metab olic 2000 panel - Serum or Plasm a interpretati on and review of laboratory results Abnorm al Not Available Not Available 16:25:59 07/06/19 25 07/05/2024 Basic metab olic 2000 panel - Serum or Plasm a glucose [mass/volume ] in capillary blood by glucometer 213 mg/dL low: 70mg/d Lhigh: 130mg/ dL high Gluco se 213 (H) 70 - 130 mg/dL 07/05 8:27 AM EDT [employer] [employer] [facility] AT[facility] Not Available Not Available 09/01/2024 16:25:59 07/06/19 25 07/05/2024 Basic metab olic 2000 panel - Serum or Plasm a interpretati on and review of laboratory results Abnorm al Not Available Not Available 16:25:59 07/06/1907/05/2024 Basic metab olic 2000 panel - Serum or Plasm a glucose [mass/volume ] in capillary blood by glucometer 242 mg/dL low: 70mg/d Lhigh: 130mg/ dL high Gluco se 242 (H) 70 - 130 mg/dL 07/05 7:38 AM EDT [employer] LABOR ATORY Not Available Not Available 09/01/2024 16:25:59 07/06/19 25 07/05/2024 Basic metab olic 2000 panel - Serum or Plasm a interpretati on and review of laboratory results Abnorm al Not Available Not Available 16:25:59 07/06/1907/05/2024 CBC panel - Blood by Autom ated count leukocytes [#/volume] corrected for nucleated erythrocytes in blood by automated count 11.56 10*3/ mm3 low: 3.410* 3/mm3h igh: 10.810 *3/mm3 high WBC 11.56 (H) 3.40 - 10.80 10*3/ mm3 07/05 5:00 AM EDT [employer] ATORY Not Available Not Available 09/01/2024 16:25:59 07/06/1907/05/2024 CBC panel - Blood by Autom ated count erythrocytes [#/volume] in blood by automated count 4.52 10*6/ mm3 low: 4.1410 *6/mm3 high: 5.810* 6/mm3 RBC 4.52 4.14 - 5.80 10*6/ mm3 07/05 5:00 AM EDT [employer] ATORY Not Available Not Available 09/01/2024 16:25:59 07/06/19 25 07/05/2024 CBC panel - Blood by Autom ated count hemoglobin [mass/volume ] in blood 11.2 g/dL low: 13g/dL high: 17.7g/ dL low Hemog lobin 11.2 (L) 13.0 - 17.7 g/dL 07/05 5:00 AM EDT [employer] [facility] [facility] [employer] ATORY Not Available Not Available 09/01/2024 16:25:59 07/06/1907/05/2024 CBC panel - Blood by Autom ated count hematocrit [volume fraction] of blood by automated count 36.7 % low: 37.5%h igh: 51% low Hemat ocrit 36.7 (L) 37.5 - 51.0 % 07/05 5:00 AM EDT [employer] [facility] [employer] ATORY Not Available Not Available 09/01/2024 16:25:59 07/06/1907/05/2024 CBC panel - Blood by Autom ated count MCV [entitic mean volume] in red blood cells by automated count 81.2 fL low: 79fLhi gh: 97fL MCV 81.2 79.0 - 97.0 fL 07/05 5:00 AM ED [employer] [facility] [facility] [employer] ATORY Not Available Not Available 09/01/2024 16:25:59 07/06/1907/05/2024 CBC panel - Blood by Autom ated count MCH [entitic mass] by automated count 24.8 pg low: 26.6pg high: 33pg low MCH 24.8 (L) 26.6 - 33.0 pg 07/05 5:00 AM ED [employer] [facility] [employer] ATORY Not Available Not Available 09/01/2024 16:25:59 07/06/1907/05/2024 CBC panel - Blood by Autom ated count MCHC [entitic mass/volume] in red blood cells by automated count 30.5 g/dL low: 31.5g/ dLhigh : 35.7g/ dL low MCHC 30.5 (L) 31.5 - 35.7 g/dL 07/05 5:00 AM EDVinfolio [employer] [facility] [employer] ATORY Not Available Not Available 09/01/2024 16:25:59 07/06/1907/05/2024 CBC panel - Blood by Autom ated count erythrocyte [distwidth] in red blood cells by automated count 18 % low: 12.3%h igh: 15.4% high RDW 18.0 (H) 12.3 - 15.4 % 07/05 5:00 AM EDT [employer] ATORY Not Available Not Available 09/01/2024 16:25:59 07/06/1907/05/2024 CBC panel - Blood by Autom ated count RDW-SD 50.7 fL low: 37fLhi gh: 54fL RDW-S D 50.7 37.0 - 54.0 fl 07/05 5:00 AM EDT [facility] [employer] AT[facility] Not Available Not Available 09/01/2024 16:25:59 07/06/1907/05/2024 CBC panel - Blood by Autom ated count platelet [entitic mean volume] in blood by automated count 9 fL low: 6fLhig h: 12fL MPV 9.0 6.0 - 12.0 fL 07/05 5:00 AM EDT [employer] ATORY Not Available Not Available 09/01/2024 16:25:59 07/06/1907/05/2024 CBC panel - Blood by Autom ated count platelets [#/volume] in blood by automated count 395 10*3/ mm3 low: 39940* 3/mm3h igh: 51921* 3/mm3 Plate lets 395 140 - 450 10*3/ mm3 07/05 5:00 AM EDT [facility] Not Available Not Available 09/01/2024 16:25:59 07/06/1907/05/2024 CBC panel - Blood by Autom ated count interpretati on and review of laboratory results Abnorm al Not Available Not Available 16:25:59 07/06/1907/05/2024 Basic metab olic 2000 panel - Serum or Plasm a glucose [mass/volume ] in serum or plasma 233 mg/dL low: 65mg/d Lhigh: 99mg/d L high Gluco se 233 (H) 65 - 99 mg/dL 07/05 5:42 AM EDT [facility] Not Available Not Available 09/01/2024 16:25:59 07/06/1907/05/2024 Basic metab olic 1999 panel - Serum or Plasm a urea nitrogen [mass/volume ] in serum or plasma 21 mg/dL low: 8mg/dL high: 23mg/d L BUN 21 8 - 23 mg/dL 07/05 5:42 AM EDT [facility] [facility] Not Available Not Available 09/01/2024 16:25:59 07/06/19 25 07/05/2024 Basic metab olic 1999 panel - Serum or Plasm a creatinine [mass/volume ] in serum or plasma 1.18 mg/dL low: 0.76mg /dLhig h: 1.27mg /dL Creat inine 1.18 0.76 - 1.27 mg/dL 07/05 5:42 AM EDT [facility] [place] [employer] [facility] [employer] [facility] ATORY Not Available Not Available 09/01/2024 16:25:59 07/06/1907/05/2024 Basic metab olic 1999 panel - Serum or Plasm a sodium [moles/volum e] in serum or plasma 140 mmol/ L low: 136mmo l/Lhig h: 145mmo l/L Sodiu m 140 136 - 145 mmol/ L 07/05 5:42 AM EDT [facility] [employer] [facility] ATORY Not Available Not Available 09/01/2024 16:25:59 07/06/1907/05/2024 Basic metab olic 1999 panel - Serum or Plasm a potassium [moles/volum e] in serum or plasma 3.9 mmol/ L low: 3.5mmo l/Lhig h: 5.2mmo l/L Potas sium 3.9 3.5 - 5.2 mmol/ L 07/05 5:42 AM EDT [facility] [employer] [facility] AT[facility] Not Available Not Available 09/01/2024 16:25:59 07/06/19 25 07/05/2024 Basic metab olic 1999 panel - Serum or Plasm a chloride [moles/volum e] in serum or plasma 97 mmol/ L low: 98mmol /Lhigh : 107mmo l/L low Chlor chava 97 (L) 98 - 107 mmol/ L 07/05 5:42 AM EDT [employer] [facility] ATORY Not Available Not Available 09/01/2024 16:25:59 07/06/1907/05/2024 Basic metab olic 2000 panel - Serum or Plasm a carbon dioxide, total [moles/volum e] in serum or plasma 31 mmol/ L low: 22mmol /Lhigh : 29mmol /L high CO2 31.0 (H) 22.0 - 29.0 mmol/ L 07/05 5:42 AM EDT [employer] LABOR ATORY Not Available Not Available 09/01/2024 16:25:59 07/06/1907/05/2024 Basic metab olic 2000 panel - Serum or Plasm a calcium [moles/volum e] in specimen 8.9 mg/dL low: 8.6mg/ dLhigh : 10.5mg /dL Calci um 8.9 8.6 - 10.5 mg/dL 07/05 5:42 AM EDT [employer] LABOR ATORY Not Available Not Available 09/01/2024 16:25:59 07/06/1907/05/2024 Basic metab olic 2000 panel - Serum or Plasm a urea nitrogen/cre atinine [mass ratio] in serum or plasma 17.8 low: 7high: 25 BUN/C reati nine Ratio 17.8 7.0 - 25.0 07/05 5:42 AM EDT [employer] LABOR ATORY Not Available Not Available 09/01/2024 16:25:59 07/06/1907/05/2024 Basic metab olic 1999 panel - Serum or Plasm a anion gap in serum or plasma by calculated.3 ions 12 mmol/ L low: 5mmol/ Lhigh: 15mmol /L Anion Gap 12.0 5.0 - 15.0 mmol/ L 07/05 5:42 AM EDT [employer] LABOR ATORY Not Available Not Available 09/01/2024 16:25:59 07/06/1905 0707/05/2024 Basic metab olic 1999 panel - Serum or Plasm a glomerular filtration rate [volume rate/area] in serum, plasma or blood by creatinine-b ased formula (CKD-epi 2020)/1.73 sq M 69.3 mL/mi n/1.7 3 low: 60mL/m in/1.7 3 eGFR 69.3 >60.0 mL/mi n/1.7 3 07/05 5:[address] [facility] Not Available Not Available 09/01/2024 16:25:59 07/06/19 25 07/05/2024 Basic metab olic 1999 panel - Serum or Plasm a Unknown Analyte GFR Catego kylee in Chroni c Kidney Diseas e (CKD) GFR Catego ry GFR (mL/mi n/1.73 ) Interp retati on G1 90 or greate r Normal or high (1) G2 60-89 Mild decrea se (1) G3a 45-59 Mild to modera te decrea se G3b 30-44 Modera te to severe decrea se G4 15-29 Severe decrea se G5 14 or less Kidney failur e (1)In the absenc e of eviden ce of kidney diseas e, neithe r GFR catego ry G1 or G2 fulfil l the criter ia for CKD. eGFR calcul ation 2020 CKD-EP I creati nine equati on, which does not includ e race as a factor GFR Categ ories in Chron ic Kidne y Disea se (CKD) GFR Categ ory GFR (mL/m in/1. 73) Inter preta tion G1 90 or great er Etta l or high (1) G2 60-89 Mild decre ase (1) G3a 45-59 Mild to moder ate decre ase G3b 30-44 Moder ate to sever e decre ase G4 15-29 Sever e decre ase G5 14 or less Kidne y failu re (1)In the absen ce of evide nce of kidne y disea se, neith er GFR categ ory G1 or G2 fulfi ll the crite [place] for CKD. eGFR calcu latio n 2020 CKD-E PI creat inine equat ion, which does not inclu de race as a facto r Not Available Not Available 09/01/2024 16:25:59 07/06/19 25 07/05/2024 Basic metab olic 2000 panel - Serum or Plasm a interpretati on and review of laboratory results Abnorm al Not Available Not Available 16:25:59 07/07/19 25 07/06/2024 Basic metab olic 2000 panel - Serum or Plasm a glucose [mass/volume ] in capillary blood by glucometer 239 mg/dL low: 70mg/d Lhigh: 130mg/ dL high Gluco se 239 (H) 70 - 130 mg/dL 07/06 8:[address] [facility] Not Available Not Available 09/01/2024 16:26:00 07/07/19 25 07/06/2024 Basic metab olic 2000 panel - Serum or Plasm a interpretati on and review of laboratory results Abnorm al Not Available Not Available 16:26:00 07/07/19 25 07/06/2024 Basic metab olic 2000 panel - Serum or Plasm a glucose [mass/volume ] in capillary blood by glucometer 182 mg/dL low: 70mg/d Lhigh: 130mg/ dL high Gluco se 182 (H) 70 - 130 mg/dL 07/06 4:[address] [facility] Not Available Not Available 09/01/2024 16:26:00 07/07/19 25 07/06/2024 Basic metab olic 2000 panel - Serum or Plasm a interpretati on and review of laboratory results Abnorm al Not Available Not Available 16:26:00 07/07/19 25 07/06/2024 Basic metab olic 2000 panel - Serum or Plasm a glucose [mass/volume ] in capillary blood by glucometer 166 mg/dL low: 70mg/d Lhigh: 130mg/ dL high Gluco se 166 (H) 70 - 130 mg/dL 07/06 12:[address] [facility] Not Available Not Available 09/01/2024 16:26:00 07/07/19 25 07/06/2024 Basic metab olic 2000 panel - Serum or Plasm a interpretati on and review of laboratory results Abnorm al Not Available Not Available 16:26:00 07/07/1907/06/2024 Basic metab olic 2000 panel - Serum or Plasm a glucose [mass/volume ] in capillary blood by glucometer 251 mg/dL low: 70mg/d Lhigh: 130mg/ dL high Gluco se 251 (H) 70 - 130 mg/dL 07/06 8:43 AM EDT [employer] [facility] [facility] AT[facility] Not Available Not Available 09/01/2024 16:26:00 07/07/19 25 07/06/2024 Basic metab olic 2000 panel - Serum or Plasm a interpretati on and review of laboratory results Abnorm al Not Available Not Available 16:26:00 07/07/1907/06/2024 CBC panel - Blood by Autom ated count leukocytes [#/volume] corrected for nucleated erythrocytes in blood by automated count 12.55 10*3/ mm3 low: 3.410* 3/mm3h igh: 10.810 *3/mm3 high WBC 12.55 (H) 3.40 - 10.80 10*3/ mm3 07/06 5:22 AM EDT [employer] ATORY Not Available Not Available 09/01/2024 16:25:59 07/07/1907/06/2024 CBC panel - Blood by Autom ated count erythrocytes [#/volume] in blood by automated count 4.62 10*6/ mm3 low: 4.1410 *6/mm3 high: 5.810* 6/mm3 RBC 4.62 4.14 - 5.80 10*6/ mm3 07/06 5:22 AM EDT [employer] LABOR ATORY Not Available Not Available 09/01/2024 16:25:59 07/07/1907/06/2024 CBC panel - Blood by Autom ated count hemoglobin [mass/volume ] in blood 11.1 g/dL low: 13g/dL high: 17.7g/ dL low Hemog lobin 11.1 (L) 13.0 - 17.7 g/dL 07/06 5:22 AM EDT [facility] [employer] ATORY Not Available Not Available 09/01/2024 16:25:59 07/07/1907/06/2024 CBC panel - Blood by Autom ated count hematocrit [volume fraction] of blood by automated count 37.5 % low: 37.5%h igh: 51% Hemat ocrit 37.5 37.5 - 51.0 % 07/06 5:22 AM EDT [facility] [employer] ATORY Not Available Not Available 09/01/2024 16:25:59 07/07/1907/06/2024 CBC panel - Blood by Autom ated count MCV [entitic mean volume] in red blood cells by automated count 81.2 fL low: 79fLhi gh: 97fL MCV 81.2 79.0 - 97.0 fL 07/06 5:22 AM EDT [facility] [employer] ATORY Not Available Not Available 09/01/2024 16:25:59 07/07/1907/06/2024 CBC panel - Blood by Autom ated count MCH [entitic mass] by automated count 24 pg low: 26.6pg high: 33pg low MCH 24.0 (L) 26.6 - 33.0 pg [facility]06 [facility] [employer] [facility] Not Available Not Available 09/01/2024 16:25:59 07/07/1907/06/2024 CBC panel - Blood by Autom ated count MCHC [entitic mass/volume] in red blood cells by automated count 29.6 g/dL low: 31.5g/ dLhigh : 35.7g/ dL low MCHC 29.6 (L) 31.5 - 35.7 g/dL 07/06 5:22 AM EDT [facility] [employer] ATORY Not Available Not Available 09/01/2024 16:25:59 07/07/1907/06/2024 CBC panel - Blood by Autom ated count erythrocyte [distwidth] in red blood cells by automated count 18.1 % low: 12.3%h igh: 15.4% high RDW 18.1 (H) 12.3 - 15.4 % 07/06 5:22 AM EDT [employer] ATORY Not Available Not Available 09/01/2024 16:25:59 07/07/1907/06/2024 CBC panel - Blood by Autom ated count RDW-SD 52.5 fL low: 37fLhi gh: 54fL RDW-S D 52.5 37.0 - 54.0 fl 07/06 5:22 AM EDT [employer] ATORY Not Available Not Available 09/01/2024 16:25:59 07/07/1907/06/2024 CBC panel - Blood by Autom ated count platelet [entitic mean volume] in blood by automated count 9.1 fL low: 6fLhig h: 12fL MPV 9.1 6.0 - 12.0 fL 07/06 5:22 AM EDT [employer] ATORY Not Available Not Available 09/01/2024 16:25:59 07/07/1907/06/2024 CBC panel - Blood by Autom ated count platelets [#/volume] in blood by automated count 454 10*3/ mm3 low: 77942* 3/mm3h igh: 16945* 3/mm3 high Plate lets 454 (H) 140 - 450 10*3/ mm3 07/06 5:22 AM EDT [employer] ATORY Not Available Not Available 09/01/2024 16:25:59 07/07/1907/06/2024 CBC panel - Blood by Autom ated count interpretati on and review of laboratory results Abnorm al Not Available Not Available 16:25:59 07/07/1907/06/2024 Basic metab olic 2000 panel - Serum or Plasm a glucose [mass/volume ] in serum or plasma 297 mg/dL low: 65mg/d Lhigh: 99mg/d L high Gluco se 297 (H) 65 - 99 mg/dL 07/06 5:45 AM EDT [employer] ATORY Not Available Not Available 09/01/2024 16:25:59 07/07/19 25 07/06/2024 Basic metab olic 1999 panel - Serum or Plasm a urea nitrogen [mass/volume ] in serum or plasma 23 mg/dL low: 8mg/dL high: 23mg/d L BUN 23 8 - 23 mg/dL 07/06 5:45 AM EDT [employer] LABOR ATORY Not Available Not Available 09/01/2024 16:25:59 07/07/19 25 07/06/2024 Basic metab olic 1999 panel - Serum or Plasm a creatinine [mass/volume ] in serum or plasma 1.26 mg/dL low: 0.76mg /dLhig h: 1.27mg /dL Creat inine 1.26 0.76 - 1.27 mg/dL 07/06 5:45 AM EDT [employer] LABOR ATORY Not Available Not Available 09/01/2024 16:25:59 07/07/19 25 07/06/2024 Basic metab olic 1999 panel - Serum or Plasm a sodium [moles/volum e] in serum or plasma 135 mmol/ L low: 136mmo l/Lhig h: 145mmo l/L low Sodiu m 135 (L) 136 - 145 mmol/ L 07/06 5:45 AM EDT [employer] ATORY Not Available Not Available 09/01/2024 16:25:59 07/07/19 25 07/06/2024 Basic metab olic 1999 panel - Serum or Plasm a potassium [moles/volum e] in serum or plasma 3.9 mmol/ L low: 3.5mmo l/Lhig h: 5.2mmo l/L Potas sium 3.9 3.5 - 5.2 mmol/ L 07/06 5:45 AM EDT [employer] LABOR ATORY Not Available Not Available 09/01/2024 16:25:59 07/07/19 25 07/06/2024 Basic metab olic 1999 panel - Serum or Plasm a chloride [moles/volum e] in serum or plasma 90 mmol/ L low: 98mmol /Lhigh : 107mmo l/L low Chlor chava 90 (L) 98 - 107 mmol/ L 07/06 5:45 AM EDT [facility] [facility] Not Available Not Available 09/01/2024 16:25:59 07/07/1907/06/2024 Basic metab olic 1999 panel - Serum or Plasm a carbon dioxide, total [moles/volum e] in serum or plasma 30 mmol/ L low: 22mmol /Lhigh : 29mmol /L high CO2 30.0 (H) 22.0 - 29.0 mmol/ L 07/06 5:[address] [employer] [facility] [employer] LABOR ATORY Not Available Not Available 09/01/2024 16:25:59 07/07/1907/06/2024 Basic metab olic 1999 panel - Serum or Plasm a calcium [moles/volum e] in specimen 8.9 mg/dL low: 8.6mg/ dLhigh : 10.5mg /dL Calci um 8.9 8.6 - 10.5 mg/dL 07/06 5:[address] [employer] [facility] [employer] LABOR ATORY Not Available Not Available 09/01/2024 16:25:59 07/07/1907/06/2024 Basic metab olic 1999 panel - Serum or Plasm a urea nitrogen/cre atinine [mass ratio] in serum or plasma 18.3 low: 7high: 25 BUN/C reati nine Ratio 18.3 7.0 - 25.0 07/06 5:45 AM EDT [employer] [facility] [employer] LABOR ATORY Not Available Not Available 09/01/2024 16:25:59 07/07/1907/06/2024 Basic metab olic 1999 panel - Serum or Plasm a anion gap in serum or plasma by calculated.3 ions 15 mmol/ L low: 5mmol/ Lhigh: 15mmol /L Anion Gap 15.0 5.0 - 15.0 mmol/ L 07/06 5:45 AM EDT [facility] [facility] Not Available Not Available 09/01/2024 16:25:59 07/07/1907/06/2024 Basic metab olic 1999 panel - Serum or Plasm a glomerular filtration rate [volume rate/area] in serum, plasma or blood by creatinine-b ased formula (CKD-epi 2020)/1.73 sq M 64.1 mL/mi n/1.7 3 low: 60mL/m in/1.7 3 eGFR 64.1 >60.0 mL/mi n/1.7 3 07/06 5:[address] [facility] Not Available Not Available 09/01/2024 16:25:59 07/07/19 25 07/06/2024 Basic metab olic 1999 panel - Serum or Plasm a Unknown Analyte GFR Catego kylee in Chroni c Kidney Diseas e (CKD) GFR Catego ry GFR (mL/mi n/1.73 ) Interp retati on G1 90 or greate r Normal or high (1) G2 60-89 Mild decrea se (1) G3a 45-59 Mild to modera te decrea se G3b 30-44 Modera te to severe decrea se G4 15-29 Severe decrea se G5 14 or less Kidney failur e (1)In the absenc e of eviden ce of kidney diseas e, neithe r GFR catego ry G1 or G2 fulfil l the criter ia for CKD. eGFR calcul ation 2020 CKD-EP I creati nine equati on, which does not includ e race as a factor GFR Categ ories in Chron ic Kidne y Disea se (CKD) GFR Categ ory GFR (mL/m in/1. 73) Inter preta tion G1 90 or great er Etta l or high (1) G2 60-89 Mild decre ase (1) G3a 45-59 Mild to moder ate decre ase G3b 30-44 Moder ate to sever e decre ase G4 15-29 Sever e decre ase G5 14 or less Kidne y failu re (1)In the absen ce of evide nce of kidne y disea se, neith er GFR categ ory G1 or G2 fulfi ll the crite [place] for CKD. eGFR calcu latio n 2020 CKD-E PI creat inine equat ion, which does not inclu de race as a facto r Not Available Not Available 09/01/2024 16:25:59 07/07/19 25 07/06/2024 Basic metab olic 2000 panel - Serum or Plasm a interpretati on and review of laboratory results Abnorm al Not Available Not Available 16:25:59 07/08/19 25 07/07/2024 Basic metab olic 2000 panel - Serum or Plasm a glucose [mass/volume ] in capillary blood by glucometer 194 mg/dL low: 70mg/d Lhigh: 130mg/ dL high Gluco se 194 (H) 70 - 130 mg/dL 07/07 11:34 AM EDT [facility] [employer] [facility] ATORY Not Available Not Available 09/01/2024 16:26:00 07/08/19 25 07/07/2024 Basic metab olic 2000 panel - Serum or Plasm a interpretati on and review of laboratory results Abnorm al Not Available Not Available 16:26:00 07/08/19 25 07/07/2024 Basic metab olic 2000 panel - Serum or Plasm a glucose [mass/volume ] in capillary blood by glucometer 232 mg/dL low: 70mg/d Lhigh: 130mg/ dL high Gluco se 232 (H) 70 - 130 mg/dL 07/07 7:24 AM EDT [employer] LAB[facility] ATORY Not Available Not Available 09/01/2024 16:26:00 07/08/19 25 07/07/2024 Basic metab olic 2000 panel - Serum or Plasm a interpretati on and review of laboratory results Abnorm al Not Available Not Available 16:26:00 07/08/19 25 07/07/2024 Basic metab olic 2000 panel - Serum or Plasm a glucose [mass/volume ] in serum or plasma 299 mg/dL low: 65mg/d Lhigh: 99mg/d L high Gluco se 299 (H) 65 - 99 mg/dL 07/07 5:17 AM EDT [employer] [facility] [employer] [employer] AT[facility] Not Available Not Available 09/01/2024 16:26:00 07/08/19 25 07/07/2024 Basic metab olic 2000 panel - Serum or Plasm a urea nitrogen [mass/volume ] in serum or plasma 25 mg/dL low: 8mg/dL high: 23mg/d L high BUN 25 (H) 8 - 23 mg/dL 07/07 5:17 AM EDT [employer] [facility] AT[facility] Not Available Not Available 09/01/2024 16:26:00 07/08/1907/07/2024 Basic metab olic 1999 panel - Serum or Plasm a creatinine [mass/volume ] in serum or plasma 1.19 mg/dL low: 0.76mg /dLhig h: 1.27mg /dL Creat inine 1.19 0.76 - 1.27 mg/dL 07/07 5:17 AM EDT [employer] [facility] AT[facility] Not Available Not Available 09/01/2024 16:26:00 07/08/1907/07/2024 Basic metab olic 1999 panel - Serum or Plasm a sodium [moles/volum e] in serum or plasma 137 mmol/ L low: 136mmo l/Lhig h: 145mmo l/L Sodiu m 137 136 - 145 mmol/ L 07/07 5:17 AM EDT [employer] [facility] Not Available Not Available 09/01/2024 16:26:00 07/08/1907/07/2024 Basic metab olic 1999 panel - Serum or Plasm a potassium [moles/volum e] in serum or plasma 3.6 mmol/ L low: 3.5mmo l/Lhig h: 5.2mmo l/L Potas sium 3.6 3.5 - 5.2 mmol/ L 07/07 5:17 AM EDT [employer] [facility] Not Available Not Available 09/01/2024 16:26:00 07/08/1907/07/2024 Basic metab olic 1999 panel - Serum or Plasm a chloride [moles/volum e] in serum or plasma 91 mmol/ L low: 98mmol /Lhigh : 107mmo l/L low Chlor chava 91 (L) 98 - 107 mmol/ L 07/07 5:17 AM EDT [employer] LABOR ATORY Not Available Not Available 09/01/2024 16:26:00 07/08/1907/07/2024 Basic metab olic 1999 panel - Serum or Plasm a carbon dioxide, total [moles/volum e] in serum or plasma 34 mmol/ L low: 22mmol /Lhigh : 29mmol /L high CO2 34.0 (H) 22.0 - 29.0 mmol/ L 07/07 5:17 AM EDT [employer] ATORY Not Available Not Available 09/01/2024 16:26:00 07/08/1907/07/2024 Basic metab olic 1999 panel - Serum or Plasm a calcium [moles/volum e] in specimen 9 mg/dL low: 8.6mg/ dLhigh : 10.5mg /dL Calci um 9.0 8.6 - 10.5 mg/dL 07/07 5:17 AM EDT [employer] ATORY Not Available Not Available 09/01/2024 16:26:00 07/08/1907/07/2024 Basic metab olic 1999 panel - Serum or Plasm a urea nitrogen/cre atinine [mass ratio] in serum or plasma 21 low: 7high: 25 BUN/C reati nine Ratio 21.0 7.0 - 25.0 07/07 5:17 AM EDT [employer] ATORY Not Available Not Available 09/01/2024 16:26:00 07/08/1907/07/2024 Basic metab olic 1999 panel - Serum or Plasm a anion gap in serum or plasma by calculated.3 ions 12 mmol/ L low: 5mmol/ Lhigh: 15mmol /L Anion Gap 12.0 5.0 - 15.0 mmol/ L 07/07 5:17 AM EDT [employer] ATORY Not Available Not Available 09/01/2024 16:26:00 07/08/1907/07/2024 Basic metab olic 2000 panel - Serum or Plasm a glomerular filtration rate [volume rate/area] in serum, plasma or blood by creatinine-b ased formula (CKD-epi 2020)/1.73 sq M 68.6 mL/mi n/1.7 3 low: 60mL/m in/1.7 3 eGFR 68.6 >60.0 mL/mi n/1.7 3 07/07 5:[address] [facility] Not Available Not Available 09/01/2024 16:26:00 07/08/19 25 07/07/2024 Basic metab olic 1999 panel - Serum or Plasm a Unknown Analyte GFR Catego kylee in Chroni c Kidney Diseas e (CKD) GFR Catego ry GFR (mL/mi n/1.73 ) Interp retati on G1 90 or greate r Normal or high (1) G2 60-89 Mild decrea se (1) G3a 45-59 Mild to modera te decrea se G3b 30-44 Modera te to severe decrea se G4 15-29 Severe decrea se G5 14 or less Kidney failur e (1)In the absenc e of eviden ce of kidney diseas e, neithe r GFR catego ry G1 or G2 fulfil l the criter ia for CKD. eGFR calcul ation 2020 CKD-EP I creati nine equati on, which does not includ e race as a factor GFR Categ ories in Chron ic Kidne y Disea se (CKD) GFR Categ ory GFR (mL/m in/1. 73) Inter preta tion G1 90 or great er Etta l or high (1) G2 60-89 Mild decre ase (1) G3a 45-59 Mild to moder ate decre ase G3b 30-44 Moder ate to sever e decre ase G4 15-29 Sever e decre ase G5 14 or less Kidne y failu re (1)In the absen ce of evide nce of kidne y disea se, neith er GFR categ ory G1 or G2 fulfi ll the crite [place] for CKD. eGFR calcu latio n 2020 CKD-E PI creat inine equat ion, which does not inclu de race as a facto r Not Available Not Available 09/01/2024 16:26:00 07/08/19 25 07/07/2024 Basic metab olic 2000 panel - Serum or Plasm a interpretati on and review of laboratory results Abnorm al Not Available Not Available 16:26:00 08/19/19 25 08/18/2024 Basic metab olic 1999 panel - Serum or Plasm a glucose [mass/volume ] in capillary blood by glucometer 174 mg/dL low: 70mg/d Lhigh: 130mg/ dL high Gluco se 174 (H) 70 - 130 mg/dL 08/18 8:[address] [facility] Not Available Not Available 09/01/2024 16:24:24 08/19/19 25 08/18/2024 Basic metab olic 1999 panel - Serum or Plasm a interpretati on and review of laboratory results Abnorm al Not Available Not Available 16:24:24 08/19/19 25 08/18/2024 Potas sium [Mole s/vol ume] in Serum or Plasm a potassium [moles/volum e] in serum or plasma 6.4 mmol/ L low: 3.5mmo l/Lhig h: 5.2mmo l/L critical high Potas sium 6.4 (HH) 3.5 - 5.2 mmol/ L 08/18 3:[address] [facility] Not Available Not Available 09/01/2024 16:24:24 08/19/19 25 08/18/2024 Potas sium [Mole s/vol ume] in Serum or Plasm a interpretati on and review of laboratory results Abnorm al Not Available Not Available 16:24:24 08/19/19 25 08/18/2024 Tropo basim T.car diac [Mass /volu me] in Serum or Plasm a by High sensi tivit y metho d hs troponin T 44 NG/L high: 22NG/L high HS Tropo basim T 44 (H) <22 ng/L 08/18 2:[address] [facility] Not Available Not Available 09/01/2024 16:24:23 08/19/19 25 08/18/2024 Tropo basim T.car diac [Mass /volu me] in Serum or Plasm a by High sensi tivit y metho d troponin T numeric delta 0 NG/L Tropo basim T Numer ic Delta 0 ng/L 08/18 2:[address] [facility] Not Available Not Available 09/01/2024 16:24:23 08/19/19 25 08/18/2024 Tropo basim T.car diac [Mass /volu me] in Serum or Plasm a by High sensi tivit y metho d troponin T % delta 0 text: abnorm al if >/= 20% Tropo basim T % Delta 0 Abnor mal if >/= 20% 08/18 2:[address] [facility] Not Available Not Available 09/01/2024 16:24:23 08/19/19 25 08/18/2024 Tropo basim T.car diac [Mass /volu me] in Serum or Plasm a by High sensi tivit y metho d Unknown Analyte High Sensit minh Tropon in T Refere nce Range: <14.0 ng/L- Negati ve Female for AMI <22.0 ng/L- Negati ve Male for AMI >=14 - Abnorm al Female indica ting possib le myocar dial injury . >=22 - Abnorm al Male indica ting possib le myocar dial injury . Clinic ians would have to utiliz e clinic al acumen , EKG, Tropon in, and serial change s to determ ine if it is an Acute Myocar dial Infarc tion or myocar dial injury due to an underl andrei chroni c condit ion. High Sensi tive Tropo basim T Refer ence Range : <14.0 ng/L- Negat minh Femal e for AMI <22.0 ng/L- Negat minh Male for AMI >=14 - Abnor mal Femal e indic ating possi ble myoca rdial injur y. >=22 - Abnor mal Male indic ating possi ble myoca rdial injur y. Clini cians would have to utili ze clini jone acume n, EKG, Tropo basim, and seria l manzanares es to deter mine if it is an Acute Myoca rdial Infar ction or myoca rdial injur y due to an under lying chron ic condi tion. Not Available Not Available 09/01/2024 16:24:23 08/19/19 25 08/18/2024 Tropo basim T.car diac [Mass /volu me] in Serum or Plasm a by High sensi tivit y metho d interpretati on and review of laboratory results Abnorm al Not Available Not Available 16:24:23 08/19/19 25 08/18/2024 CBC W Diffe renti al panel , metho d unspe cifie d - Blood leukocytes [#/volume] corrected for nucleated erythrocytes in blood by automated count 11.41 10*3/ mm3 low: 3.410* 3/mm3h igh: 10.810 *3/mm3 high WBC 11.41 (H) 3.40 - 10.80 10*3/ mm3 08/18 2:32 PM EDT [facility] [email or web address] Not Available Not Available 09/01/2024 16:24:23 08/19/19 25 08/18/2024 CBC W Diffe renti al panel , metho d unspe cifie d - Blood erythrocytes [#/volume] in blood by automated count 3.9 10*6/ mm3 low: 4.1410 *6/mm3 high: 5.810* 6/mm3 low RBC 3.90 (L) 4.14 - 5.80 10*6/ mm3 08/18 2:32 PM EDT [facility] [employer] [facility] Not Available Not Available 09/01/2024 16:24:23 08/19/19 25 08/18/2024 CBC W Diffe renti al panel , metho d unspe cifie d - Blood hemoglobin [mass/volume ] in blood 9.3 g/dL low: 13g/dL high: 17.7g/ dL low Hemog lobin 9.3 (L) 13.0 - 17.7 g/dL 08/18 2:32 [address] [facility] [employer] Not Available Not Available 09/01/2024 16:24:23 08/19/19 25 08/18/2024 CBC W Diffe renti al panel , metho d unspe cifie d - Blood hematocrit [volume fraction] of blood by automated count 30.4 % low: 37.5%h igh: 51% low Hemat ocrit 30.4 (L) 37.5 - 51.0 % 08/18 2:32 PM EDT [employer] [facility] [facility] [employer] Not Available Not Available 09/01/2024 16:24:23 08/19/19 25 08/18/2024 CBC W Diffe josé al panel , metho d unspe cifie d - Blood MCV [entitic mean volume] in red blood cells by automated count 77.9 fL low: 79fLhi gh: 97fL low MCV 77.9 (L) 79.0 - 97.0 fL 08/18 2:32 PM EDT [employer] [facility] [employer] Not Available Not Available 09/01/2024 16:24:23 08/19/19 25 08/18/2024 CBC W Diffnaren kumar al panel , metho d unspe cifie d - Blood MCH [entitic mass] by automated count 23.8 pg low: 26.6pg high: 33pg low MCH 23.8 (L) 26.6 - 33.0 pg 08/18 2:32 PM EDT [employer] [facility] [facility] [employer] Not Available Not Available 09/01/2024 16:24:23 08/19/19 25 08/18/2024 CBC W Diffnaren kumar al panel , metho d unspe cifie d - Blood MCHC [entitic mass/volume] in red blood cells by automated count 30.6 g/dL low: 31.5g/ dLhigh : 35.7g/ dL low MCHC 30.6 (L) 31.5 - 35.7 g/dL 08/18 2:32 PM EDT [employer] [facility] [employer] Not Available Not Available 09/01/2024 16:24:23 08/19/19 25 08/18/2024 CBC W Diffe renti al panel , metho d unspe cifie d - Blood erythrocyte [distwidth] in red blood cells by automated count 17.2 % low: 12.3%h igh: 15.4% high RDW 17.2 (H) 12.3 - 15.4 % 08/18 2:32 PM EDT [employer] [facility] [employer] ATORY Not Available Not Available 09/01/2024 16:24:23 08/19/19 25 08/18/2024 CBC W Diffe renti al panel , metho d unspe cifie d - Blood RDW-SD 48.5 fL low: 37fLhi gh: 54fL RDW-S D 48.5 37.0 - 54.0 fl 08/18 2:32 PM EDT [employer] [facility] [employer] [facility] AT[facility] Not Available Not Available 09/01/2024 16:24:23 08/19/19 25 08/18/2024 CBC W Anthony kumar al panel , metho d unspe cifie d - Blood platelet [entitic mean volume] in blood by automated count 8.8 fL low: 6fLhig h: 12fL MPV 8.8 6.0 - 12.0 fL 08/18 2:32 PM EDT [employer] [facility] [employer] Not Available Not Available 09/01/2024 16:24:23 08/19/1908/18/2024 CBC W Anthony kumar al panel , metho d unspe cifie d - Blood platelets [#/volume] in blood by automated count 405 10*3/ mm3 low: 11821* 3/mm3h igh: 71550* 3/mm3 Plate lets 405 140 - 450 10*3/ mm3 08/18 2:32 PM EDT [facility] [place] [facility] [employer] Not Available Not Available 09/01/2024 16:24:23 08/19/19 25 08/18/2024 CBC W Diffe josé al panel , metho d unspe cifie d - Blood neutrophils/ leukocytes in blood by automated count 80.6 % low: 42.7%h igh: 76% high Neutr ophil % 80.6 (H) 42.7 - 76.0 % 08/18 2:32 PM EDT [employer] [facility] Not Available Not Available 09/01/2024 16:24:23 08/19/19 25 08/18/2024 CBC W Diffe renti al panel , metho d unspe cifie d - Blood lymphocytes/ leukocytes in blood by automated count 11 % low: 19.6%h igh: 45.3% low Lymph ocyte % 11.0 (L) 19.6 - 45.3 % 08/18 2:32 PM EDT [facility] [place] [facility] [employer] Not Available Not Available 09/01/2024 16:24:23 08/19/19 25 08/18/2024 CBC W Diffe renti al panel , metho d unspe cifie d - Blood monocytes/le ukocytes in blood by automated count 6.6 % low: 5%high : 12% Monoc yte % 6.6 5.0 - 12.0 % 08/18 2:32 PM EDT [facility] [employer] Not Available Not Available 09/01/2024 16:24:23 08/19/19 25 08/18/2024 CBC W Diffe renti al panel , metho d unspe cifie d - Blood eosinophils/ leukocytes in blood by automated count 0.7 % low: 0.3%hi gh: 6.2% Eosin ophil % 0.7 0.3 - 6.2 % 08/18 2:32 PM EDT [facility] [place] [facility] [employer] Not Available Not Available 09/01/2024 16:24:23 08/19/19 25 08/18/2024 CBC W Diffe renti al panel , metho d unspe cifie d - Blood basophils/le ukocytes in blood by automated count 0.4 % low: 0%high : 1.5% Basop hil % 0.4 0.0 - 1.5 % 08/18 2:32 PM EDT [employer] [facility] [facility] [employer] Not Available Not Available 09/01/2024 16:24:23 08/19/19 25 08/18/2024 CBC W Diffe renti al panel , metho d unspe cifie d - Blood immature granulocytes /leukocytes in blood by automated count 0.7 % low: 0%high : 0.5% high Immat ure Grans % 0.7 (H) 0.0 - 0.5 % 08/18 2:32 PM EDT [employer] Not Available Not Available 09/01/2024 16:24:23 08/19/19 25 08/18/2024 CBC W Diffe renti al panel , metho d unspe cifie d - Blood neutrophils/ leukocytes in blood by automated count 9.2 10*3/ mm3 low: 1.710* 3/mm3h igh: 710*3/ mm3 high Neutr ophil s, Absol naknek 9.20 (H) 1.70 - 7.00 10*3/ mm3 08/18 2:32 PM EDT [employer] Not Available Not Available 09/01/2024 16:24:23 08/19/19 25 08/18/2024 CBC W Diffe renti al panel , metho d unspe cifie d - Blood lymphocytes [#/volume] in blood by automated count 1.26 10*3/ mm3 low: 0.710* 3/mm3h igh: 3.110* 3/mm3 Lymph ocyte s, Absol naknek 1.26 0.70 - 3.10 10*3/ mm3 08/18 2:32 PM EDT [employer] Not Available Not Available 09/01/2024 16:24:23 08/19/19 25 08/18/2024 CBC W Diffe renti al panel , metho d unspe cifie d - Blood monocytes [#/volume] in blood by automated count 0.75 10*3/ mm3 low: 0.110* 3/mm3h igh: 0.910* 3/mm3 Monoc ytes, Absol naknek 0.75 0.10 - 0.90 10*3/ mm3 08/18 2:32 PM EDT [employer] Not Available Not Available 09/01/2024 16:24:23 08/19/19 25 08/18/2024 CBC W Diffe renti al panel , metho d unspe cifie d - Blood eosinophils [#/volume] in blood by automated count 0.08 10*3/ mm3 low: 010*3/ mm3hig h: 0.410* 3/mm3 Eosin ophil s, Absol naknek 0.08 0.00 - 0.40 10*3/ mm3 08/18 2:32 PM EDT [employer] [facility] [facility] Not Available Not Available 09/01/2024 16:24:23 08/19/19 25 08/18/2024 CBC W Diffe renti al panel , metho d unspe cifie d - Blood basophils [#/volume] in blood by automated count 0.04 10*3/ mm3 low: 010*3/ mm3hig h: 0.210* 3/mm3 Basop hils, Absol naknek 0.04 0.00 - 0.20 10*3/ mm3 08/18 2:32 PM EDT [employer] [facility] [facility] Not Available Not Available 09/01/2024 16:24:23 08/19/19 25 08/18/2024 CBC W Diffe renti al panel , metho d unspe cifie d - Blood immature granulocytes [#/volume] in blood by automated count 0.08 10*3/ mm3 low: 010*3/ mm3hig h: 0.0510 *3/mm3 high Immat ure Grans , Absol naknek 0.08 (H) 0.00 - 0.05 10*3/ mm3 08/18 2:32 PM EDT [employer] [facility] AT[facility] Not Available Not Available 09/01/2024 16:24:23 08/19/19 25 08/18/2024 CBC W Diffe renti al panel , metho d unspe cifie d - Blood nucleated erythrocytes /leukocytes [ratio] in blood by automated count 0.4 text: 0.0 - 0.2 /100 WBC high nRBC 0.4 (H) 0.0 - 0.2 /100 WBC 08/18 2:32 PM EDT [employer] [facility] AT[facility] Not Available Not Available 09/01/2024 16:24:23 08/19/19 25 08/18/2024 CBC W Diffe renti al panel , metho d unspe cifie d - Blood interpretati on and review of laboratory results Abnorm al Not Available Not Available 16:24:23 08/19/19 25 08/23/2024 Bacte bethany ident ified in Blood by Cultu re bacteria identified in specimen by aerobe culture No growth at 5 days Blood Cultu re No growt h at 5 days 08/23 1:[address] [facility] Not Available Not Available 09/01/2024 16:24:23 08/19/19 25 08/23/2024 Bacte bethany ident ified in Blood by Cultu re interpretati on and review of laboratory results Normal Not Available Not Available 08/12 16:24:23 08/19/19 25 08/23/2024 Bacte bethany ident ified in Blood by Cultu re bacteria identified in specimen by aerobe culture No growth at 5 days Blood Cultu re No growt h at 5 days 08/23 1:[address] [facility] Not Available Not Available 09/01/2024 16:24:23 08/19/19 25 08/23/2024 Bacte bethany ident ified in Blood by Cultu re interpretati on and review of laboratory results Normal Not Available Not Available 08/12 16:24:23 08/19/19 25 08/18/2024 Natri ureti c pepti de.B proho rmone N-Ter claudio [Mass /volu me] in Serum or Plasm a natriuretic peptide.B prohormone N-terminal [mass/volume ] in serum or plasma 3014 pg/mL low: 0pg/mL high: 900pg/ mL high proBN P 3,014 .0 (H) 0.0 - 900.0 pg/mL 08/18 1:[address] [facility] Not Available Not Available 09/01/2024 16:24:23 08/19/19 25 08/18/2024 Natri ureti c pepti de.B proho rmone N-Ter claudio [Mass /volu me] in Serum or Plasm a Unknown Analyte This assay is used as an aid in the diagno sis of indivi duals suspec contreras of having heart failur e. It can be used as an aid in the diagno sis of acute decomp ensate d heart failur e (ADHF) in patien ts presen ting with signs and sympto ms of ADHF to the emerge ncy depart ment (ED). In additi on, NT-pro BNP of <300 pg/mL indica elizabeth ADHF is not likely . Age Range Result Interp retati on NT-pro BNP Concen tratio n (pg/mL : <50 Positi ve >450 Mac 300-45 0 Negati ve <300 50-75 Positi ve >900 Mac 300-90 0 Negati ve <300 >75 Positi ve >1800 Mac 300-18 00 Negati ve <300 This assay is used as an aid in the diagn osis of indiv idual s suspe cted of havin g heart failu re. It can be used as an aid in the diagn osis of acute decom pensa contreras heart failu re (ADHF ) in patie nts prese nting with signs and sympt oms of ADHF to the emerg ency depar tment (ED). In addit ion, NT-pr oBNP of <300 pg/mL indic ates ADHF is not likel y. Age Range Resul t Inter preta tion NT-pr oBNP Sylvia ntrat ion (pg/m L: <50 Posit minh >450 Mac 300-4 50 Negat minh <300 50-75 Posit minh >900 Mac 300-9 00 Negat minh <300 >75 Posit minh >1800 Mac 300-1 800 Negat minh <300 Not Available Not Available 09/01/2024 16:24:23 08/19/19 25 08/18/2024 Natri ureti c pepti de.B proho rmone N-Ter claudio [Mass /volu me] in Serum or Plasm a interpretati on and review of laboratory results Abnorm al Not Available Not Available 16:24:23 08/19/19 25 08/18/2024 Proca lcito basim [Mass /volu me] in Serum or Plasm a procalcitoni n [mass/volume ] in serum or plasma 0.34 NG/mL low: 0NG/mL high: 0.25NG /mL high Proca lcito basim 0.34 (H) 0.00 - 0.25 ng/mL 08/18 1:[address] [facility] Not Available Not Available 09/01/2024 16:24:23 08/19/19 25 08/18/2024 Proca lcito basim [Mass /volu me] in Serum or Plasm a Unknown Analyte As a Marker for Sepsis (Non-N eonate s): 1. <0.5 ng/mL repres ents a low risk of severe sepsis and/or septic shock. 2. >2 ng/mL repres ents a high risk of severe sepsis and/or septic shock. As a Marker for Lower Respir atory Tract Infect ions that requir e antibi otic therap y: PCT on Admiss ion Antibi otic Therap y 6-12 Hrs later >0.5 Strong ly Recomm ended >0.25 - <0.5 Recomm ended 0.1 - 0.25 Discou raged Remeas ure/re assess PCT <0.1 Strong ly Discou raged Remeas ure/re assess PCT As 28 day mortal ity risk marker : Manzanares e in Procal citoni n Result (>80% or <=80%) if Day 0 (or Day 1) and Day 4 values are availa ble. Refer to http:/ /www.[facility]- pct-ca lculat or.com Change in PCT <=80% A decrea se of PCT levels below or equal to 80% define s a positi ve change in PCT test result repres enting a higher risk for 28-day all-ca use mortal ity of patien ts diagno sed with severe sepsis for septic shock. Change in PCT >80% A decrea se of PCT levels of more than 80% define s a negati ve change in PCT result repres enting a lower risk for 28-day all-ca use mortal ity of patien ts diagno sed with severe sepsis or septic shock. As a Marke r for Sepsi s (Non- Neona elizabeth): 1. <0.5 ng/mL repre sents a low risk of sever e sepsi s and/o r septi c shock . 2. >2 ng/mL repre sents a high risk of sever e sepsi s and/o r septi c shock . As a Marke r for Lower Respi rator y Tract Infec tions that requi re antib iotic thera py: PCT on Admis eloy Antib iotic Thera py 6-12 Hrs later >0.5 Stron gly Recom danis d >0.25 - <0.5 Recom danis d 0.1 - 0.25 Disco urage d Remea sure/ reass ess PCT <0.1 Stron gly Disco urage d Remea sure/ reass ess PCT As 28 day morta lity risk marke r: Russ flood in Proca lcito basim Resul t (>80% or <=80% ) if Day 0 (or Day 1) and Day 4 value s are avail able. Refer to http: //www .[facility]- t-jone culat or.co m Manzanares e in PCT <=80% A decre ase of PCT level s below or equal to 80% defin es a posit minh manzanares e in PCT test resul t repre senti ng a highe r risk for 28-da y all-c ause morta lity of patie nts diagn osed with sever e sepsi s for septi c shock . Manzanares e in PCT >80% A decre ase of PCT level s of more than 80% defin es a negat minh manzanares e in PCT resul t repre senti ng a lower risk for 28-da y all-c ause morta lity of patie nts diagn osed with sever e sepsi s or septi c shock . Not Available Not Available 09/01/2024 16:24:23 08/19/19 25 08/18/2024 Proca lcito basim [Mass /volu me] in Serum or Plasm a interpretati on and review of laboratory results Abnorm al Not Available Not Available 16:24:23 08/19/19 25 08/18/2024 Lacta te [Mole s/vol ume] in Serum or Plasm a D-lactate [moles/volum e] in serum or plasma 1.5 mmol/ L low: 0.5mmo l/Lhig h: 2mmol/ L Lacta te 1.5 0.5 - 2.0 mmol/ L 08/18 1:21 PM EDT [employer] Not Available Not Available 09/01/2024 16:24:23 08/19/19 25 08/18/2024 Lacta te [Mole s/vol ume] in Serum or Plasm a interpretati on and review of laboratory results Normal Not Available Not Available 08/12 16:24:23 08/19/19 25 08/18/2024 CBC W Diffe renti al panel , metho d unspe cifie d - Blood leukocytes [#/volume] corrected for nucleated erythrocytes in blood by automated count 11.23 10*3/ mm3 low: 3.410* 3/mm3h igh: 10.810 *3/mm3 high WBC 11.23 (H) 3.40 - 10.80 10*3/ mm3 08/18 1:00 PM EDT [facility] [employer] [facility] Not Available Not Available 09/01/2024 16:24:23 08/19/19 25 08/18/2024 CBC W Diffe renti al panel , metho d unspe cifie d - Blood erythrocytes [#/volume] in blood by automated count 3.94 10*6/ mm3 low: 4.1410 *6/mm3 high: 5.810* 6/mm3 low RBC 3.94 (L) 4.14 - 5.80 10*6/ mm3 08/18 1:00 PM EDT [employer] [facility] Not Available Not Available 09/01/2024 16:24:23 08/19/19 25 08/18/2024 CBC W Diffe renti al panel , metho d unspe cifie d - Blood hemoglobin [mass/volume ] in blood 9.1 g/dL low: 13g/dL high: 17.7g/ dL low Hemog lobin 9.1 (L) 13.0 - 17.7 g/dL 08/18 1:00 PM EDT [employer] AT[employer] Not Available Not Available 09/01/2024 16:24:23 08/19/19 25 08/18/2024 CBC W Diffe renti al panel , metho d unspe cifie d - Blood hematocrit [volume fraction] of blood by automated count 30.8 % low: 37.5%h igh: 51% low Hemat ocrit 30.8 (L) 37.5 - 51.0 % 08/18 1:00 PM EDT [employer] AT[employer] Not Available Not Available 09/01/2024 16:24:23 08/19/19 25 08/18/2024 CBC W Diffe renti al panel , metho d unspe cifie d - Blood MCV [entitic mean volume] in red blood cells by automated count 78.2 fL low: 79fLhi gh: 97fL low MCV 78.2 (L) 79.0 - 97.0 fL 08/18 1:00 PM EDT [employer] [facility] [employer] ATORY Not Available Not Available 09/01/2024 16:24:23 08/19/19 25 08/18/2024 CBC W Diffe renti al panel , metho d unspe cifie d - Blood MCH [entitic mass] by automated count 23.1 pg low: 26.6pg high: 33pg low MCH 23.1 (L) 26.6 - 33.0 pg 08/18 1:00 PM EDT [employer] [facility] [employer] AT[employer] Not Available Not Available 09/01/2024 16:24:23 08/19/19 25 08/18/2024 CBC W Diffe renti al panel , metho d unspe cifie d - Blood MCHC [entitic mass/volume] in red blood cells by automated count 29.5 g/dL low: 31.5g/ dLhigh : 35.7g/ dL low MCHC 29.5 (L) 31.5 - 35.7 g/dL 08/18 1:00 PM EDT [employer] [facility] [employer] AT[employer] Not Available Not Available 09/01/2024 16:24:23 08/19/19 25 08/18/2024 CBC W Diffe renti al panel , metho d unspe cifie d - Blood erythrocyte [distwidth] in red blood cells by automated count 17.2 % low: 12.3%h igh: 15.4% high RDW 17.2 (H) 12.3 - 15.4 % 08/18 1:00 PM EDT [facility] [employer] [facility] AT[facility] Not Available Not Available 09/01/2024 16:24:23 08/19/19 25 08/18/2024 CBC W Diffe renti al panel , metho d unspe cifie d - Blood RDW-SD 48.8 fL low: 37fLhi gh: 54fL RDW-S D 48.8 37.0 - 54.0 fl 08/18 1:00 PM EDT [facility] [employer] Not Available Not Available 09/01/2024 16:24:23 08/19/19 25 08/18/2024 CBC W Diffe renti al panel , metho d unspe cifie d - Blood platelet [entitic mean volume] in blood by automated count 8.7 fL low: 6fLhig h: 12fL MPV 8.7 6.0 - 12.0 fL 08/18 1:00 PM EDT [facility] [employer] Not Available Not Available 09/01/2024 16:24:23 08/19/19 25 08/18/2024 CBC W Diffe michaelti al panel , metho d unspe cifie d - Blood platelets [#/volume] in blood by automated count 403 10*3/ mm3 low: 18469* 3/mm3h igh: 21693* 3/mm3 Plate lets 403 140 - 450 10*3/ mm3 08/18 1:00 PM EDT [facility] [employer] Not Available Not Available 09/01/2024 16:24:23 08/19/19 25 08/18/2024 CBC W Diffe renti al panel , metho d unspe cifie d - Blood neutrophils/ leukocytes in blood by automated count 79.5 % low: 42.7%h igh: 76% high Neutr ophil % 79.5 (H) 42.7 - 76.0 % 08/18 1:00 PM EDT [facility] [employer] [facility] AT[facility] Not Available Not Available 09/01/2024 16:24:23 08/19/19 25 08/18/2024 CBC W Diffe renti al panel , metho d unspe cifie d - Blood lymphocytes/ leukocytes in blood by automated count 11.9 % low: 19.6%h igh: 45.3% low Lymph ocyte % 11.9 (L) 19.6 - 45.3 % 08/18 1:00 PM EDT [facility] [employer] Not Available Not Available 09/01/2024 16:24:23 08/19/19 25 08/18/2024 CBC W Diffe renti al panel , metho d unspe cifie d - Blood monocytes/le ukocytes in blood by automated count 6.9 % low: 5%high : 12% Monoc yte % 6.9 5.0 - 12.0 % 08/18 1:00 PM EDT [facility] [employer] Not Available Not Available 09/01/2024 16:24:23 08/19/19 25 08/18/2024 CBC W Diffe renti al panel , metho d unspe cifie d - Blood eosinophils/ leukocytes in blood by automated count 0.8 % low: 0.3%hi gh: 6.2% Eosin ophil % 0.8 0.3 - 6.2 % 08/18 1:00 PM EDT [facility] [employer] [facility] AT[facility] Not Available Not Available 09/01/2024 16:24:23 08/19/19 25 08/18/2024 CBC W Diffe renti al panel , metho d unspe cifie d - Blood basophils/le ukocytes in blood by automated count 0.2 % low: 0%high : 1.5% Basop hil % 0.2 0.0 - 1.5 % 08/18 1:00 PM EDT [employer] [facility] [employer] Not Available Not Available 09/01/2024 16:24:23 08/19/19 25 08/18/2024 CBC W Diffe renti al panel , metho d unspe cifie d - Blood immature granulocytes /leukocytes in blood by automated count 0.7 % low: 0%high : 0.5% high Immat ure Grans % 0.7 (H) 0.0 - 0.5 % 08/18 1:00 PM EDT [employer] [facility] Not Available Not Available 09/01/2024 16:24:23 08/19/19 25 08/18/2024 CBC W Diffe renti al panel , metho d unspe cifie d - Blood neutrophils/ leukocytes in blood by automated count 8.92 10*3/ mm3 low: 1.710* 3/mm3h igh: 710*3/ mm3 high Neutr ophil s, Absol naknek 8.92 (H) 1.70 - 7.00 10*3/ mm3 08/18 1:00 PM EDT [employer] [facility] Not Available Not Available 09/01/2024 16:24:23 08/19/19 25 08/18/2024 CBC W Jennifere michaelti al panel , metho d unspe cifie d - Blood lymphocytes [#/volume] in blood by automated count 1.34 10*3/ mm3 low: 0.710* 3/mm3h igh: 3.110* 3/mm3 Lymph ocyte s, Absol naknek 1.34 0.70 - 3.10 10*3/ mm3 08/18 1:00 PM EDT [employer] [facility] Not Available Not Available 09/01/2024 16:24:23 08/19/19 25 08/18/2024 CBC W Diffe renti al panel , metho d unspe cifie d - Blood monocytes [#/volume] in blood by automated count 0.78 10*3/ mm3 low: 0.110* 3/mm3h igh: 0.910* 3/mm3 Monoc ytes, Absol naknek 0.78 0.10 - 0.90 10*3/ mm3 08/18 1:00 PM EDT [facility] [employer] [facility] Not Available Not Available 09/01/2024 16:24:23 08/19/19 25 08/18/2024 CBC W Diffe renti al panel , metho d unspe cifie d - Blood eosinophils [#/volume] in blood by automated count 0.09 10*3/ mm3 low: 010*3/ mm3hig h: 0.410* 3/mm3 Eosin ophil s, Absol naknek 0.09 0.00 - 0.40 10*3/ mm3 08/18 1:00 PM EDT [employer] Not Available Not Available 09/01/2024 16:24:23 08/19/19 25 08/18/2024 CBC W Diffe renti al panel , metho d unspe cifie d - Blood basophils [#/volume] in blood by automated count 0.02 10*3/ mm3 low: 010*3/ mm3hig h: 0.210* 3/mm3 Basop hils, Absol naknek 0.02 0.00 - 0.20 10*3/ mm3 08/18 1:00 PM EDT [employer] [facility] Not Available Not Available 09/01/2024 16:24:23 08/19/19 25 08/18/2024 CBC W Diffe renti al panel , metho d unspe cifie d - Blood immature granulocytes [#/volume] in blood by automated count 0.08 10*3/ mm3 low: 010*3/ mm3hig h: 0.0510 *3/mm3 high Immat ure Grans , Absol naknek 0.08 (H) 0.00 - 0.05 10*3/ mm3 08/18 1:00 PM EDT [employer] Not Available Not Available 09/01/2024 16:24:23 08/19/19 25 08/18/2024 CBC W Diffe renti al panel , metho d unspe cifie d - Blood nucleated erythrocytes /leukocytes [ratio] in blood by automated count 0.4 text: 0.0 - 0.2 /100 WBC high nRBC 0.4 (H) 0.0 - 0.2 /100 WBC 08/18 1:00 PM EDT [employer] [facility] Not Available Not Available 09/01/2024 16:24:23 08/19/19 25 08/18/2024 CBC W Diffe renti al panel , metho d unspe cifie d - Blood interpretati on and review of laboratory results Abnorm al Not Available Not Available 16:24:23 08/19/19 25 08/18/2024 Magne sium Ioniz ed [Mass /volu me] in Serum or Plasm a magnesium [mass/volume ] in serum or plasma 2.7 mg/dL low: 1.6mg/ dLhigh : 2.4mg/ dL high Magne sium 2.7 (H) 1.6 - 2.4 mg/dL 08/18 1:[address] [facility] Not Available Not Available 09/01/2024 16:24:23 08/19/19 25 08/18/2024 Magne sium Ioniz ed [Mass /volu me] in Serum or Plasm a interpretati on and review of laboratory results Abnorm al Not Available Not Available 16:24:23 08/19/19 25 08/18/2024 Tropo basim T.car diac [Mass /volu me] in Serum or Plasm a by High sensi tivit y metho d troponin T.cardiac [mass/volume ] in serum or plasma by high sensitivity method 44 NG/L high: 22NG/L high HS Tropo basim T 44 (H) <22 ng/L 08/18 1:[address] [facility] Not Available Not Available 09/01/2024 16:24:23 08/19/19 25 08/18/2024 Tropo basim T.car diac [Mass /volu me] in Serum or Plasm a by High sensi tivit y metho d Unknown Analyte High Sensit minh Tropon in T Refere nce Range: <14.0 ng/L- Negati ve Female for AMI <22.0 ng/L- Negati ve Male for AMI >=14 - Abnorm al Female indica ting possib le myocar dial injury . >=22 - Abnorm al Male indica ting possib le myocar dial injury . Clinic ians would have to utiliz e clinic al acumen , EKG, Tropon in, and serial change s to determ ine if it is an Acute Myocar dial Infarc tion or myocar dial injury due to an underl andrei chroni c condit ion. High Sensi tive Tropo basim T Refer ence Range : <14.0 ng/L- Negat minh Femal e for AMI <22.0 ng/L- Negat minh Male for AMI >=14 - Abnor mal Femal e indic ating possi ble myoca rdial injur y. >=22 - Abnor mal Male indic ating possi ble myoca rdial injur y. Clini cians would have to utili ze clini jone acume n, EKG, Tropo basim, and seria l manzanares es to deter mine if it is an Acute Myoca rdial Infar ction or myoca rdial injur y due to an under lying chron ic condi tion. Not Available Not Available 09/01/2024 16:24:23 08/19/19 25 08/18/2024 Tropo basim T.car diac [Mass /volu me] in Serum or Plasm a by High sensi tivit y metho d interpretati on and review of laboratory results Abnorm al Not Available Not Available 16:24:23 08/19/19 25 08/18/2024 Urina lysis macro (dips tick) panel - Urine color of urine Yellow text: yellow , straw Color , UA Yello w Yello w, Straw 08/18 1:[address] [facility] Not Available Not Available 09/01/2024 16:24:23 08/19/19 25 08/18/2024 Urina lysis macro (dips tick) panel - Urine clarity of urine Clear text: clear Appea emma , UA Clear Clear 08/18 1:09 PM EDT [facility] Not Available Not Available 09/01/2024 16:24:23 08/19/19 25 08/18/2024 Urina lysis macro (dips tick) panel - Urine pH of urine by automated test strip 5.5 low: 5high: 8 pH, UA 5.5 5.0 - 8.0 08/18 1:09 PM EDT [facility] [place] [facility] [employer] [facility] Not Available Not Available 09/01/2024 16:24:23 08/19/19 25 08/18/2024 Urina lysis macro (dips tick) panel - Urine specific gravity of urine by test strip 1.014 low: 1.001h igh: 1.03 Speci fic Gravi ty, UA 1.014 1.001 - 1.030 08/18 1:09 PM EDT [facility] [facility] Not Available Not Available 09/01/2024 16:24:23 08/19/19 25 08/18/2024 Urina lysis macro (dips tick) panel - Urine glucose [mass/volume ] in urine by test strip Negati ve text: negati ve Gluco se, UA Negat minh Negat minh 08/18 1:09 PM EDT [facility] Not Available Not Available 09/01/2024 16:24:23 08/19/19 25 08/18/2024 Urina lysis macro (dips tick) panel - Urine ketones [presence] in urine by test strip Negati ve text: negati ve K[place] es, UA Negat minh Negat minh 08/18 1:09 PM EDT [facility] [facility] Not Available Not Available 09/01/2024 16:24:23 08/19/19 25 08/18/2024 Urina lysis macro (dips tick) panel - Urine bilirubin.to alberto [presence] in urine by test strip Negati ve text: negati ve Bilir ubin, UA Negat minh Negat minh 08/18 1:09 PM EDT [facility] [place] [facility] [facility] Not Available Not Available 09/01/2024 16:24:23 08/19/19 25 08/18/2024 Urina lysis macro (dips tick) panel - Urine hemoglobin [presence] in urine by automated test strip Negati ve text: negati ve Blood , UA Negat minh Negat minh 08/18 1:09 PM EDT [facility] Not Available Not Available 09/01/2024 16:24:23 08/19/19 25 08/18/2024 Urina lysis macro (dips tick) panel - Urine protein [presence] in urine by test strip Trace text: negati ve abnormal Prote in, UA Trace (A) Negat minh 08/18 1:09 PM EDT [facility] Not Available Not Available 09/01/2024 16:24:23 08/19/19 25 08/18/2024 Urina lysis macro (dips tick) panel - Urine leukocyte esterase [presence] in urine by automated test strip Trace text: negati ve abnormal Leuk Kacey ase, UA Trace (A) Negat minh 08/18 1:09 PM EDT [facility] Not Available Not Available 09/01/2024 16:24:23 08/19/19 25 08/18/2024 Urina lysis macro (dips tick) panel - Urine nitrite [presence] in urine by test strip Negati ve text: negati ve Nitri te, UA Negat minh Negat minh 08/18 1:09 PM EDT [facility] Not Available Not Available 09/01/2024 16:24:23 08/19/19 25 08/18/2024 Urina lysis macro (dips tick) panel - Urine urobilinogen [presence] in urine by test strip 0.2 E.U./d L text: 0.2 - 1.0 E.U./d L Urobi linog en, UA 0.2 E.U./ dL 0.2 - 1.0 E.U./ dL 08/18 1:09 PM EDT [facility] [place] [facility] [facility] Not Available Not Available 09/01/2024 16:24:23 08/19/19 25 08/18/2024 Urina lysis macro (dips tick) panel - Urine interpretati on and review of laboratory results Abnorm al Not Available Not Available 16:24:23 08/20/19 25 08/19/2024 Basic metab olic 1999 panel - Serum or Plasm a glucose [mass/volume ] in capillary blood by glucometer 186 mg/dL low: 70mg/d Lhigh: 130mg/ dL high Gluco se 186 (H) 70 - 130 mg/dL 08/19 10:[address] [address] [facility] Not Available Not Available 09/01/2024 16:24:24 08/20/19 25 08/19/2024 Basic metab olic 2000 panel - Serum or Plasm a interpretati on and review of laboratory results Abnorm al Not Available Not Available 16:24:24 08/20/19 25 08/19/2024 Potas sium [Mole s/vol ume] in Serum or Plasm a potassium [moles/volum e] in serum or plasma 6.2 mmol/ L low: 3.5mmo l/Lhig h: 5.2mmo l/L critical high Potas sium 6.2 (HH) 3.5 - 5.2 mmol/ L 08/19 10:47 PM EDT [facility] [place] [facility] [employer] [facility] Not Available Not Available 09/01/2024 16:24:24 08/20/19 25 08/19/2024 Potas sium [Mole s/vol ume] in Serum or Plasm a interpretati on and review of laboratory results Abnorm al Not Available Not Available 16:24:24 08/20/19 25 08/19/2024 Basic metab olic 1999 panel - Serum or Plasm a glucose [mass/volume ] in capillary blood by glucometer 191 mg/dL low: 70mg/d Lhigh: 130mg/ dL high Gluco se 191 (H) 70 - 130 mg/dL 08/19 8:[address] [employer] [facility] [employer] [facility] [facility] Not Available Not Available 09/01/2024 16:24:24 08/20/19 25 08/19/2024 Basic metab olic 2000 panel - Serum or Plasm a interpretati on and review of laboratory results Abnorm al Not Available Not Available 16:24:24 08/20/19 25 08/19/2024 Basic metab olic 2000 panel - Serum or Plasm a glucose [mass/volume ] in capillary blood by glucometer 194 mg/dL low: 70mg/d Lhigh: 130mg/ dL high Gluco se 194 (H) 70 - 130 mg/dL 08/19 4:51 PM EDT [facility] [employer] [facility] Not Available Not Available 09/01/2024 16:24:24 08/20/19 25 08/19/2024 Basic metab olic 2000 panel - Serum or Plasm a interpretati on and review of laboratory results Abnorm al Not Available Not Available 16:24:24 08/20/19 25 08/19/2024 Basic metab olic 2000 panel - Serum or Plasm a glucose [mass/volume ] in capillary blood by glucometer 201 mg/dL low: 70mg/d Lhigh: 130mg/ dL high Gluco se 201 (H) 70 - 130 mg/dL 08/19 11:57 AM EDT [facility] Not Available Not Available 09/01/2024 16:24:24 08/20/19 25 08/19/2024 Basic metab olic 2000 panel - Serum or Plasm a interpretati on and review of laboratory results Abnorm al Not Available Not Available 16:24:24 08/20/19 25 08/19/2024 Basic metab olic 2000 panel - Serum or Plasm a glucose [mass/volume ] in capillary blood by glucometer 343 mg/dL low: 70mg/d Lhigh: 130mg/ dL high Gluco se 343 (H) 70 - 130 mg/dL 08/19 10:24 AM EDT [facility] [employer] [facility] Not Available Not Available 09/01/2024 16:24:24 08/20/19 25 08/19/2024 Basic metab olic 2000 panel - Serum or Plasm a interpretati on and review of laboratory results Abnorm al Not Available Not Available 16:24:24 08/20/19 25 08/19/2024 Basic metab olic 2000 panel - Serum or Plasm a glucose [mass/volume ] in capillary blood by glucometer 187 mg/dL low: 70mg/d Lhigh: 130mg/ dL high Gluco se 187 (H) 70 - 130 mg/dL 08/19 7:08 AM EDT [facility] [place] [facility] Not Available Not Available 09/01/2024 16:24:24 08/20/19 25 08/19/2024 Basic metab olic 2000 panel - Serum or Plasm a interpretati on and review of laboratory results Abnorm al Not Available Not Available 16:24:24 08/20/19 25 08/19/2024 Creat ine kinas e [Enzy matic activ ity/v olume ] in Serum or Plasm a creatine kinase [enzymatic activity/vol ume] in serum or plasma 30 U/L low: 20U/Lh igh: 200U/L Creat ine Kinas e 30 20 - 200 U/L 08/19 6:53 AM EDT [facility] [place] [facility] Not Available Not Available 09/01/2024 16:24:24 08/20/19 25 08/19/2024 Creat ine kinas e [Enzy matic activ ity/v olume ] in Serum or Plasm a interpretati on and review of laboratory results Normal Not Available Not Available 08/12 16:24:24 08/20/19 25 08/19/2024 CBC W Diffe renti al panel , metho d unspe cifie d - Blood leukocytes [#/volume] corrected for nucleated erythrocytes in blood by automated count 11.1 10*3/ mm3 low: 3.410* 3/mm3h igh: 10.810 *3/mm3 high WBC 11.10 (H) 3.40 - 10.80 10*3/ mm3 08/19 6:27 AM EDT [facility] Not Available Not Available 09/01/2024 16:24:24 08/20/19 25 08/19/2024 CBC W Diffe renti al panel , metho d unspe cifie d - Blood erythrocytes [#/volume] in blood by automated count 3.54 10*6/ mm3 low: 4.1410 *6/mm3 high: 5.810* 6/mm3 low RBC 3.54 (L) 4.14 - 5.80 10*6/ mm3 08/19 6:27 AM EDT [facility] Not Available Not Available 09/01/2024 16:24:24 08/20/19 25 08/19/2024 CBC W Diffnaren kumar al panel , metho d unspe cifie d - Blood hemoglobin [mass/volume ] in blood 8.4 g/dL low: 13g/dL high: 17.7g/ dL low Hemog lobin 8.4 (L) 13.0 - 17.7 g/dL 08/19 6:27 AM EDT [employer] [facility] Not Available Not Available 09/01/2024 16:24:24 08/20/1908/19/2024 CBC W Diffe josé al panel , metho d unspe cifie d - Blood hematocrit [volume fraction] of blood by automated count 28 % low: 37.5%h igh: 51% low Hemat ocrit 28.0 (L) 37.5 - 51.0 % 08/19 6:27 AM EDT [employer] [facility] Not Available Not Available 09/01/2024 16:24:24 08/20/1908/19/2024 CBC W Anthony kumar al panel , metho d unspe cifie d - Blood MCV [entitic mean volume] in red blood cells by automated count 79.1 fL low: 79fLhi gh: 97fL MCV 79.1 79.0 - 97.0 fL 08/19 6:27 AM EDT [facility] Not Available Not Available 09/01/2024 16:24:24 08/20/19 25 08/19/2024 CBC W Diffe josé al panel , metho d unspe cifie d - Blood MCH [entitic mass] by automated count 23.7 pg low: 26.6pg high: 33pg low MCH 23.7 (L) 26.6 - 33.0 pg 08/19 6:27 AM EDT [employer] [facility] Not Available Not Available 09/01/2024 16:24:24 08/20/19 25 08/19/2024 CBC W Diffe renti al panel , metho d unspe cifie d - Blood MCHC [entitic mass/volume] in red blood cells by automated count 30 g/dL low: 31.5g/ dLhigh : 35.7g/ dL low MCHC 30.0 (L) 31.5 - 35.7 g/dL 08/19 6:27 AM EDT [facility] Not Available Not Available 09/01/2024 16:24:24 08/20/19 25 08/19/2024 CBC W Diffe renti al panel , metho d unspe cifie d - Blood erythrocyte [distwidth] in red blood cells by automated count 17.2 % low: 12.3%h igh: 15.4% high RDW 17.2 (H) 12.3 - 15.4 % 08/19 6:27 AM EDT [facility] Not Available Not Available 09/01/2024 16:24:24 08/20/19 25 08/19/2024 CBC W Diffe renti al panel , metho d unspe cifie d - Blood RDW-SD 49.6 fL low: 37fLhi gh: 54fL RDW-S D 49.6 37.0 - 54.0 fl 08/19 6:27 AM EDT [facility] Not Available Not Available 09/01/2024 16:24:24 08/20/19 25 08/19/2024 CBC W Diffe renti al panel , metho d unspe cifie d - Blood platelet [entitic mean volume] in blood by automated count 8.7 fL low: 6fLhig h: 12fL MPV 8.7 6.0 - 12.0 fL 08/19 6:27 AM EDT [facility] Not Available Not Available 09/01/2024 16:24:24 08/20/19 25 08/19/2024 CBC W Diffe renti al panel , metho d unspe cifie d - Blood platelets [#/volume] in blood by automated count 390 10*3/ mm3 low: 69072* 3/mm3h igh: 73497* 3/mm3 Plate lets 390 140 - 450 10*3/ mm3 08/19 6:27 AM EDT [facility] Not Available Not Available 09/01/2024 16:24:24 08/20/19 25 08/19/2024 CBC W Diffe renti al panel , metho d unspe cifie d - Blood neutrophils/ leukocytes in blood by automated count 76.7 % low: 42.7%h igh: 76% high Neutr ophil % 76.7 (H) 42.7 - 76.0 % 08/19 6:27 AM EDT [facility] Not Available Not Available 09/01/2024 16:24:24 08/20/19 25 08/19/2024 CBC W Diffe renti al panel , metho d unspe cifie d - Blood lymphocytes/ leukocytes in blood by automated count 12.6 % low: 19.6%h igh: 45.3% low Lymph ocyte % 12.6 (L) 19.6 - 45.3 % 08/19 6:27 AM EDT [facility] Not Available Not Available 09/01/2024 16:24:24 08/20/19 25 08/19/2024 CBC W Diffe renti al panel , metho d unspe cifie d - Blood monocytes/le ukocytes in blood by automated count 8.8 % low: 5%high : 12% Monoc yte % 8.8 5.0 - 12.0 % 08/19 6:27 AM EDT [facility] Not Available Not Available 09/01/2024 16:24:24 08/20/19 25 08/19/2024 CBC W Diffe renti al panel , metho d unspe cifie d - Blood eosinophils/ leukocytes in blood by automated count 0.7 % low: 0.3%hi gh: 6.2% Eosin ophil % 0.7 0.3 - 6.2 % 08/19 6:27 AM EDT [facility] [email or web address] [facility] Not Available Not Available 09/01/2024 16:24:24 08/20/19 25 08/19/2024 CBC W Diffe renti al panel , metho d unspe cifie d - Blood basophils/le ukocytes in blood by automated count 0.4 % low: 0%high : 1.5% Basop hil % 0.4 0.0 - 1.5 % 08/19 6:27 AM EDT [facility] [employer] [facility] Not Available Not Available 09/01/2024 16:24:24 08/20/19 25 08/19/2024 CBC W Diffe renti al panel , metho d unspe cifie d - Blood immature granulocytes /leukocytes in blood by automated count 0.8 % low: 0%high : 0.5% high Immat ure Grans % 0.8 (H) 0.0 - 0.5 % 08/19 6:27 AM EDT [facility] [facility] Not Available Not Available 09/01/2024 16:24:24 08/20/19 25 08/19/2024 CBC W Diffe renti al panel , metho d unspe cifie d - Blood neutrophils/ leukocytes in blood by automated count 8.51 10*3/ mm3 low: 1.710* 3/mm3h igh: 710*3/ mm3 high Neutr ophil s, Absol naknek 8.51 (H) 1.70 - 7.00 10*3/ mm3 08/19 6:27 AM EDT [facility] [place] [employer] [facility] [employer] AT[facility] Not Available Not Available 09/01/2024 16:24:24 08/20/19 25 08/19/2024 CBC W Diffe renti al panel , metho d unspe cifie d - Blood lymphocytes [#/volume] in blood by automated count 1.4 10*3/ mm3 low: 0.710* 3/mm3h igh: 3.110* 3/mm3 Lymph ocyte s, Absol naknek 1.40 0.70 - 3.10 10*3/ mm3 08/19 6:27 AM EDT [employer] [facility] [facility] Not Available Not Available 09/01/2024 16:24:24 08/20/19 25 08/19/2024 CBC W Diffe renti al panel , metho d unspe cifie d - Blood monocytes [#/volume] in blood by automated count 0.98 10*3/ mm3 low: 0.110* 3/mm3h igh: 0.910* 3/mm3 high Monoc ytes, Absol naknek 0.98 (H) 0.10 - 0.90 10*3/ mm3 08/19 6:27 AM EDT [employer] [facility] [employer] [facility] Not Available Not Available 09/01/2024 16:24:24 08/20/19 25 08/19/2024 CBC W Diffe renti al panel , metho d unspe cifie d - Blood eosinophils [#/volume] in blood by automated count 0.08 10*3/ mm3 low: 010*3/ mm3hig h: 0.410* 3/mm3 Eosin ophil s, Absol naknek 0.08 0.00 - 0.40 10*3/ mm3 08/19 6:27 AM EDT [employer] [facility] [facility] Not Available Not Available 09/01/2024 16:24:24 08/20/19 25 08/19/2024 CBC W Diffe renti al panel , metho d unspe cifie d - Blood basophils [#/volume] in blood by automated count 0.04 10*3/ mm3 low: 010*3/ mm3hig h: 0.210* 3/mm3 Basop hils, Absol naknek 0.04 0.00 - 0.20 10*3/ mm3 08/19 6:27 AM EDT [employer] [facility] [facility] Not Available Not Available 09/01/2024 16:24:24 08/20/19 25 08/19/2024 CBC W Diffe renti al panel , metho d unspe cifie d - Blood immature granulocytes [#/volume] in blood by automated count 0.09 10*3/ mm3 low: 010*3/ mm3hig h: 0.0510 *3/mm3 high Immat ure Grans , Absol naknek 0.09 (H) 0.00 - 0.05 10*3/ mm3 08/19 6:27 AM EDT [facility] Not Available Not Available 09/01/2024 16:24:24 08/20/19 25 08/19/2024 CBC W Diffe renti al panel , metho d unspe cifie d - Blood nucleated erythrocytes /leukocytes [ratio] in blood by automated count 0.2 text: 0.0 - 0.2 /100 WBC nRBC 0.2 0.0 - 0.2 /100 WBC 08/19 6:27 AM EDT [employer] [facility] Not Available Not Available 09/01/2024 16:24:24 08/20/19 25 08/19/2024 CBC W Diffe renti al panel , metho d unspe cifie d - Blood interpretati on and review of laboratory results Abnorm al Not Available Not Available 16:24:24 08/20/19 25 08/19/2024 Basic metab olic 2000 panel - Serum or Plasm a glucose [mass/volume ] in serum or plasma 220 mg/dL low: 65mg/d Lhigh: 99mg/d L high Gluco se 220 (H) 65 - 99 mg/dL 08/19 6:58 AM EDT [facility] Not Available Not Available 09/01/2024 16:24:24 08/20/19 25 08/19/2024 Basic metab olic 2000 panel - Serum or Plasm a urea nitrogen [mass/volume ] in serum or plasma 69 mg/dL low: 8mg/dL high: 23mg/d L high BUN 69 (H) 8 - 23 mg/dL 08/19 6:58 AM EDT [facility] Not Available Not Available 09/01/2024 16:24:24 08/20/19 25 08/19/2024 Basic metab olic 2000 panel - Serum or Plasm a creatinine [mass/volume ] in serum or plasma 2.29 mg/dL low: 0.76mg /dLhig h: 1.27mg /dL high Creat inine 2.29 (H) 0.76 - 1.27 mg/dL 08/19 6:58 AM EDT [employer] [facility] [employer] [facility] Not Available Not Available 09/01/2024 16:24:24 08/20/19 25 08/19/2024 Basic metab olic 1999 panel - Serum or Plasm a sodium [moles/volum e] in serum or plasma 136 mmol/ L low: 136mmo l/Lhig h: 145mmo l/L Sodiu m 136 136 - 145 mmol/ L 08/19 6:58 AM EDT [employer] [facility] [employer] [facility] Not Available Not Available 09/01/2024 16:24:24 08/20/19 25 08/19/2024 Basic metab olic 1999 panel - Serum or Plasm a potassium [moles/volum e] in serum or plasma 6.8 mmol/ L low: 3.5mmo l/Lhig h: 5.2mmo l/L critical high Potas sium 6.8 (HH) 3.5 - 5.2 mmol/ L 08/19 6:58 AM EDT [facility] [employer] [facility] Not Available Not Available 09/01/2024 16:24:24 08/20/19 25 08/19/2024 Basic metab olic 1999 panel - Serum or Plasm a chloride [moles/volum e] in serum or plasma 102 mmol/ L low: 98mmol /Lhigh : 107mmo l/L Chlor chava 102 98 - 107 mmol/ L 08/19 6:58 AM EDT [employer] [facility] [employer] [facility] Not Available Not Available 09/01/2024 16:24:24 08/20/19 25 08/19/2024 Basic metab olic 1999 panel - Serum or Plasm a carbon dioxide, total [moles/volum e] in serum or plasma 21 mmol/ L low: 22mmol /Lhigh : 29mmol /L low CO2 21.0 (L) 22.0 - 29.0 mmol/ L 08/19 6:58 AM EDT [employer] [facility] [employer] [facility] Not Available Not Available 09/01/2024 16:24:24 08/20/19 25 08/19/2024 Basic metab olic 1999 panel - Serum or Plasm a calcium [moles/volum e] in specimen 9.5 mg/dL low: 8.6mg/ dLhigh : 10.5mg /dL Calci um 9.5 8.6 - 10.5 mg/dL 08/19 6:58 AM EDT [facility] Not Available Not Available 09/01/2024 16:24:24 08/20/19 25 08/19/2024 Basic metab olic 1999 panel - Serum or Plasm a urea nitrogen/cre atinine [mass ratio] in serum or plasma 30.1 low: 7high: 25 high BUN/C reati nine Ratio 30.1 (H) 7.0 - 25.0 08/19 6:58 AM EDT [facility] Not Available Not Available 09/01/2024 16:24:24 08/20/19 25 08/19/2024 Basic metab olic 2000 panel - Serum or Plasm a anion gap in serum or plasma by calculated.3 ions 13 mmol/ L low: 5mmol/ Lhigh: 15mmol /L Anion Gap 13.0 5.0 - 15.0 mmol/ L 08/19 6:58 AM EDT [facility] Not Available Not Available 09/01/2024 16:24:24 08/20/19 25 08/19/2024 Basic metab olic 2000 panel - Serum or Plasm a glomerular filtration rate [volume rate/area] in serum, plasma or blood by creatinine-b ased formula (CKD-epi 2020)/1.73 sq M 31.3 mL/mi n/1.7 3 low: 60mL/m in/1.7 3 low eGFR 31.3 (L) >60.0 mL/mi n/1.7 3 08/19 6:58 AM EDT [facility] Not Available Not Available 09/01/2024 16:24:24 08/20/19 25 08/19/2024 Basic metab olic 2000 panel - Serum or Plasm a Unknown Analyte GFR Catego kylee in Chroni c Kidney Diseas e (CKD) GFR Catego ry GFR (mL/mi n/1.73 ) Interp retati on G1 90 or greate r Normal or high (1) G2 60-89 Mild decrea se (1) G3a 45-59 Mild to modera te decrea se G3b 30-44 Modera te to severe decrea se G4 15-29 Severe decrea se G5 14 or less Kidney failur e (1)In the absenc e of eviden ce of kidney diseas e, neithe r GFR catego ry G1 or G2 fulfil l the criter ia for CKD. eGFR calcul ation 2020 CKD-EP I creati nine equati on, which does not includ e race as a factor GFR Categ ories in Chron ic Kidne y Disea se (CKD) GFR Categ ory GFR (mL/m in/1. 73) Inter preta tion G1 90 or great er Etta l or high (1) G2 60-89 Mild decre ase (1) G3a 45-59 Mild to moder ate decre ase G3b 30-44 Moder ate to sever e decre ase G4 15-29 Sever e decre ase G5 14 or less Kidne y failu re (1)In the absen ce of evide nce of kidne y disea se, neith er GFR categ ory G1 or G2 fulfi ll the crite bethany for CKD. eGFR calcu latio n 2020 CKD-E PI creat inine equat ion, which does not inclu de race as a facto r Not Available Not Available 09/01/2024 16:24:24 08/20/19 25 08/19/2024 Basic metab olic 2000 panel - Serum or Plasm a interpretati on and review of laboratory results Abnorm al Not Available Not Available 16:24:24 08/20/19 25 08/19/2024 Methi cilli n resis tant Staph yloco ccus aureu s (MRSA ) DNA [Pres ence] in Speci men by MARVIN with probe detec tion methicillin resistant staphylococc us aureus (MRSA) DNA [presence] in specimen by MARVIN with probe detection Negati ve text: negati ve MRSA PCR Negat minh Negat minh CEPHE ID GENEX PERT 08/19 8:[address] [facility] Not Available Not Available 09/01/2024 16:24:24 08/20/1908/19/2024 Methi cilli n resis tant Staph yloco ccus aureu s (MRSA ) DNA [Pres ence] in Speci men by MARVIN with probe detec tion Unknown Analyte The negati ve predic tive value of this diagno stic test is high and should only be used to consid er de-esc alatin g anti-M RSA therap y. A positi ve result may indica te coloni zation with MRSA and must be correl ated clinic ally. MRSA Negati ve The negat minh predi ctive value of this diagn ostic test is high and shoul d only be used to consi noe de-es calat ing anti- MRSA thera py. A posit minh resul t may indic ate colon izati on with MRSA and must be corre lated clini mateus . MRSA Negat minh Not Available Not Available 09/01/2024 16:24:24 08/20/19 25 08/19/2024 Methi cilli n resis tant Staph yloco ccus aureu s (MRSA ) DNA [Pres ence] in Speci men by MARVIN with probe detec tion interpretati on and review of laboratory results Normal Not Available Not Available 08/12 16:24:24 08/21/19 25 08/20/2024 Basic metab olic 2000 panel - Serum or Plasm a glucose [mass/volume ] in capillary blood by glucometer 226 mg/dL low: 70mg/d Lhigh: 130mg/ dL high Gluco se 226 (H) 70 - 130 mg/dL 08/20 9:[address] [facility] Not Available Not Available 09/01/2024 16:24:25 08/21/19 25 08/20/2024 Basic metab olic 2000 panel - Serum or Plasm a interpretati on and review of laboratory results Abnorm al Not Available Not Available 16:24:25 08/21/19 25 08/20/2024 Sodiu m [Mole s/vol ume] in Urine sodium [moles/volum e] in urine 52 mmol/ L Sodiu m, Urine 52 mmol/ L 08/20 10:04 PM [facility] Not Available Not Available 09/01/2024 16:24:25 08/21/19 25 08/20/2024 Sodiu m [Mole s/vol ume] in Urine Unknown Analyte Refere nce interv als for random urine have not been establ ished. Clinic al usage is depend ent upon physic melvin's interp retati on in combin ation with other labora tory tests. Refer ence inter vals for rando m urine have not been estab lishe d. Clini jone usage is depen dent upon physi colette' s inter preta tion in combi natio n with other labor atory tests . Not Available Not Available 09/01/2024 16:24:25 08/21/19 25 08/21/2024 Creat inine [Mass /volu me] in Urine creatinine [mass/volume ] in urine 59.4 mg/dL Creat inine , Urine 59.4 mg/dL 08/21 12:21 PM EDT [facility] Not Available Not Available 09/01/2024 16:24:25 08/21/19 25 08/21/2024 Creat inine [Mass /volu me] in Urine Unknown Analyte Refere nce interv als for random urine have not been establ ished. Clinic al usage is depend ent upon physic melvin's interp retati on in combin ation with other labora tory tests. Refer ence inter vals for rando m urine have not been estab lishe d. Clini jone usage is depen dent upon physi colette' s inter preta tion in combi natio n with other labor atory tests . Not Available Not Available 09/01/2024 16:24:25 08/21/19 25 08/20/2024 Prote in [Mass /volu me] in Urine protein [mass/volume ] in urine collected for unspecified duration 6 mg/dL Total Prote in, Urine 6.0 mg/dL 08/20 10:[address] [facility] Not Available Not Available 09/01/2024 16:24:25 08/21/19 25 08/20/2024 Prote in [Mass /volu me] in Urine Unknown Analyte Refere nce interv als for random urine have not been establ ished. Clinic al usage is depend ent upon physic melvin's interp retati on in combin ation with other labora tory tests. Refer ence inter vals for rando m urine have not been estab lishe d. Clini jone usage is depen dent upon physi colette' s inter preta tion in combi natio n with other labor atory tests . Not Available Not Available 09/01/2024 16:24:25 08/21/19 25 08/21/2024 Urea nitro gen [Mass /volu me] in Urine urea nitrogen [mass/volume ] in 24 hour urine 460 mg/dL Urea Nitro gen, Urine 460 mg/dL 08/21 12:21 PM EDT [facility] Not Available Not Available 09/01/2024 16:24:24 08/21/19 25 08/21/2024 Urea nitro gen [Mass /volu me] in Urine Unknown Analyte Refere nce interv als for random urine have not been establ ished. Clinic al usage is depend ent upon physic melvin's interp retati on in combin ation with other labora tory tests. Refer ence inter vals for rando m urine have not been estab lishe d. Clini jone usage is depen dent upon physi colette' s inter preta tion in combi natio n with other labor atory tests . Not Available Not Available 09/01/2024 16:24:24 08/21/19 25 08/20/2024 Basic metab olic 2000 panel - Serum or Plasm a glucose [mass/volume ] in capillary blood by glucometer 295 mg/dL low: 70mg/d Lhigh: 130mg/ dL high Gluco se 295 (H) 70 - 130 mg/dL 08/20 4:45 PM EDT [facility] Not Available Not Available 09/01/2024 16:24:24 05/01/30 2508/20/2024 Basic metab olic 2000 panel - Serum or Plasm a interpretati on and review of laboratory results Abnorm al Not Available Not Available 16:24:24 08/21/1908/20/2024 CBC panel - Blood by Autom ated count leukocytes [#/volume] corrected for nucleated erythrocytes in blood by automated count 11.4 10*3/ mm3 low: 3.410* 3/mm3h igh: 10.810 *3/mm3 high WBC 11.40 (H) 3.40 - 10.80 10*3/ mm3 08/20 2:28 PM EDT [facility] [employer] [facility] Not Available Not Available 09/01/2024 16:24:24 08/21/1908/20/2024 CBC panel - Blood by Autom ated count erythrocytes [#/volume] in blood by automated count 3.91 10*6/ mm3 low: 4.1410 *6/mm3 high: 5.810* 6/mm3 low RBC 3.91 (L) 4.14 - 5.80 10*6/ mm3 08/20 2:28 PM EDT [facility] Not Available Not Available 09/01/2024 16:24:24 08/21/1908/20/2024 CBC panel - Blood by Autom ated count hemoglobin [mass/volume ] in blood 9 g/dL low: 13g/dL high: 17.7g/ dL low Hemog lobin 9.0 (L) 13.0 - 17.7 g/dL 08/20 2:28 PM EDT [facility] Not Available Not Available 09/01/2024 16:24:24 08/21/19 25 08/20/2024 CBC panel - Blood by Autom ated count hematocrit [volume fraction] of blood by automated count 30.5 % low: 37.5%h igh: 51% low Hemat ocrit 30.5 (L) 37.5 - 51.0 % 08/20 2:28 PM EDT [facility] [employer] [facility] Not Available Not Available 09/01/2024 16:24:24 08/21/19 25 08/20/2024 CBC panel - Blood by Autom ated count MCV [entitic mean volume] in red blood cells by automated count 78 fL low: 79fLhi gh: 97fL low MCV 78.0 (L) 79.0 - 97.0 fL 08/20 2:28 PM EDT [facility] Not Available Not Available 09/01/2024 16:24:24 08/21/19 25 08/20/2024 CBC panel - Blood by Autom ated count MCH [entitic mass] by automated count 23 pg low: 26.6pg high: 33pg low MCH 23.0 (L) 26.6 - 33.0 pg 08/20 2:28 PM EDT [facility] Not Available Not Available 09/01/2024 16:24:24 08/21/1908/20/2024 CBC panel - Blood by Autom ated count MCHC [entitic mass/volume] in red blood cells by automated count 29.5 g/dL low: 31.5g/ dLhigh : 35.7g/ dL low MCHC 29.5 (L) 31.5 - 35.7 g/dL 08/20 2:28 PM EDT [facility] Not Available Not Available 09/01/2024 16:24:24 08/21/19 25 08/20/2024 CBC panel - Blood by Autom ated count erythrocyte [distwidth] in red blood cells by automated count 17.2 % low: 12.3%h igh: 15.4% high RDW 17.2 (H) 12.3 - 15.4 % 08/20 2:28 PM EDT [facility] Not Available Not Available 09/01/2024 16:24:24 08/21/19 25 08/20/2024 CBC panel - Blood by Autom ated count RDW-SD 48.8 fL low: 37fLhi gh: 54fL RDW-S D 48.8 37.0 - 54.0 fl 08/20 2:[address] [facility] Not Available Not Available 09/01/2024 16:24:24 08/21/19 25 08/20/2024 CBC panel - Blood by Autom ated count platelet [entitic mean volume] in blood by automated count 8.8 fL low: 6fLhig h: 12fL MPV 8.8 6.0 - 12.0 fL 08/20 2:28 PM EDT [employer] [facility] [employer] [facility] Not Available Not Available 09/01/2024 16:24:24 08/21/19 25 08/20/2024 CBC panel - Blood by Autom ated count platelets [#/volume] in blood by automated count 425 10*3/ mm3 low: 79486* 3/mm3h igh: 88886* 3/mm3 Plate lets 425 140 - 450 10*3/ mm3 08/20 2:28 PM EDT [facility] [facility] Not Available Not Available 09/01/2024 16:24:24 08/21/19 25 08/20/2024 CBC panel - Blood by Autom ated count interpretati on and review of laboratory results Abnorm al Not Available Not Available 16:24:24 08/21/19 25 08/20/2024 Basic metab olic 2000 panel - Serum or Plasm a glucose [mass/volume ] in serum or plasma 177 mg/dL low: 65mg/d Lhigh: 99mg/d L high Gluco se 177 (H) 65 - 99 mg/dL 08/20 2:47 PM EDT [employer] [facility] [facility] Not Available Not Available 09/01/2024 16:24:24 08/21/19 25 08/20/2024 Basic metab olic 2000 panel - Serum or Plasm a urea nitrogen [mass/volume ] in serum or plasma 55 mg/dL low: 8mg/dL high: 23mg/d L high BUN 55 (H) 8 - 23 mg/dL 08/20 2:47 PM EDT [employer] [facility] [facility] Not Available Not Available 09/01/2024 16:24:24 08/21/19 25 08/20/2024 Basic metab olic 2000 panel - Serum or Plasm a creatinine [mass/volume ] in serum or plasma 1.64 mg/dL low: 0.76mg /dLhig h: 1.27mg /dL high Creat inine 1.64 (H) 0.76 - 1.27 mg/dL 08/20 2:47 PM EDT [employer] [facility] [facility] Not Available Not Available 09/01/2024 16:24:24 08/21/19 25 08/20/2024 Basic metab olic 1999 panel - Serum or Plasm a sodium [moles/volum e] in serum or plasma 135 mmol/ L low: 136mmo l/Lhig h: 145mmo l/L low Sodiu m 135 (L) 136 - 145 mmol/ L 08/20 2:47 PM EDT [employer] [facility] [employer] [facility] Not Available Not Available 09/01/2024 16:24:24 08/21/19 25 08/20/2024 Basic metab olic 1999 panel - Serum or Plasm a potassium [moles/volum e] in serum or plasma 5 mmol/ L low: 3.5mmo l/Lhig h: 5.2mmo l/L Potas sium 5.0 3.5 - 5.2 mmol/ L 08/20 2:47 PM EDT [facility] [employer] [facility] Not Available Not Available 09/01/2024 16:24:24 08/21/19 25 08/20/2024 Basic metab olic 1999 panel - Serum or Plasm a chloride [moles/volum e] in serum or plasma 98 mmol/ L low: 98mmol /Lhigh : 107mmo l/L Chlor chava 98 98 - 107 mmol/ L 08/20 2:47 PM EDT [employer] [facility] [facility] Not Available Not Available 09/01/2024 16:24:24 08/21/19 25 08/20/2024 Basic metab olic 1999 panel - Serum or Plasm a carbon dioxide, total [moles/volum e] in serum or plasma 26 mmol/ L low: 22mmol /Lhigh : 29mmol /L CO2 26.0 22.0 - 29.0 mmol/ L 08/20 2:47 PM EDT [employer] [facility] [facility] Not Available Not Available 09/01/2024 16:24:24 08/21/19 25 08/20/2024 Basic metab olic 2000 panel - Serum or Plasm a calcium [moles/volum e] in specimen 9.5 mg/dL low: 8.6mg/ dLhigh : 10.5mg /dL Calci um 9.5 8.6 - 10.5 mg/dL 08/20 2:47 PM EDT [facility] Not Available Not Available 09/01/2024 16:24:24 08/21/19 25 08/20/2024 Basic metab olic 2000 panel - Serum or Plasm a urea nitrogen/cre atinine [mass ratio] in serum or plasma 33.5 low: 7high: 25 high BUN/C reati nine Ratio 33.5 (H) 7.0 - 25.0 08/20 2:47 PM EDT [employer] [facility] [facility] Not Available Not Available 09/01/2024 16:24:24 08/21/19 25 08/20/2024 Basic metab olic 2000 panel - Serum or Plasm a anion gap in serum or plasma by calculated.3 ions 11 mmol/ L low: 5mmol/ Lhigh: 15mmol /L Anion Gap 11.0 5.0 - 15.0 mmol/ L 08/20 2:47 PM EDT [employer] [facility] Not Available Not Available 09/01/2024 16:24:24 08/21/19 25 08/20/2024 Basic [employer] olic 2000 panel - Serum or Plasm a glomerular filtration rate [volume rate/area] in serum, plasma or blood by creatinine-b ased formula (CKD-epi 2020)/1.73 sq M 46.7 mL/mi n/1.7 3 low: 60mL/m in/1.7 3 low eGFR 46.7 (L) >60.0 mL/mi n/1.7 3 08/20 2:47 PM EDT [employer] [facility] Not Available Not Available 09/01/2024 16:24:24 08/21/19 25 08/20/2024 Basic metab olic 2000 panel - Serum or Plasm a Unknown Analyte GFR Catego kylee in Chroni c Kidney Diseas e (CKD) GFR Catego ry GFR (mL/mi n/1.73 ) Interp retati on G1 90 or greate r Normal or high (1) G2 60-89 Mild decrea se (1) G3a 45-59 Mild to modera te decrea se G3b 30-44 Modera te to severe decrea se G4 15-29 Severe decrea se G5 14 or less Kidney failur e (1)In the absenc e of eviden ce of kidney diseas e, neithe r GFR catego ry G1 or G2 fulfil l the criter ia for CKD. eGFR calcul ation 2020 CKD-EP I creati nine equati on, which does not includ e race as a factor GFR Categ ories in Chron ic Kidne y Disea se (CKD) GFR Categ ory GFR (mL/m in/1. 73) Inter preta tion G1 90 or great er Etta l or high (1) G2 60-89 Mild decre ase (1) G3a 45-59 Mild to moder ate decre ase G3b 30-44 Moder ate to sever e decre ase G4 15-29 Sever e decre ase G5 14 or less Kidne y failu re (1)In the absen ce of evide nce of kidne y disea se, neith er GFR categ ory G1 or G2 fulfi ll the crite bethany for CKD. eGFR calcu latio n 2020 CKD-E PI creat inine equat ion, which does not inclu de race as a facto r Not Available Not Available 09/01/2024 16:24:24 08/21/19 25 08/20/2024 Basic metab olic 2000 panel - Serum or Plasm a interpretati on and review of laboratory results Abnorm al Not Available Not Available 16:24:24 08/21/19 25 08/20/2024 Basic metab olic 2000 panel - Serum or Plasm a glucose [mass/volume ] in capillary blood by glucometer 213 mg/dL low: 70mg/d Lhigh: 130mg/ dL high Gluco se 213 (H) 70 - 130 mg/dL 08/20 11:25 AM EDT [facility] [facility] Not Available Not Available 09/01/2024 16:24:24 08/21/19 25 08/20/2024 Basic metab olic 2000 panel - Serum or Plasm a interpretati on and review of laboratory results Abnorm al Not Available Not Available 16:24:24 08/21/19 25 08/20/2024 Basic metab olic 2000 panel - Serum or Plasm a glucose [mass/volume ] in capillary blood by glucometer 170 mg/dL low: 70mg/d Lhigh: 130mg/ dL high Gluco se 170 (H) 70 - 130 mg/dL 08/20 7:08 AM EDT [employer] [facility] [facility] Not Available Not Available 09/01/2024 16:24:24 08/21/19 25 08/20/2024 Basic metab olic 2000 panel - Serum or Plasm a interpretati on and review of laboratory results Abnorm al Not Available Not Available 16:24:24 08/22/19 25 08/21/2024 CBC W Diffe renti al panel , metho d unspe cifie d - Blood leukocytes [#/volume] corrected for nucleated erythrocytes in blood by automated count 10.51 10*3/ mm3 low: 3.410* 3/mm3h igh: 10.810 *3/mm3 WBC 10.51 3.40 - 10.80 10*3/ mm3 08/21 9:49 PM EDT [employer] [facility] [facility] Not Available Not Available 09/01/2024 16:24:25 08/22/19 25 08/21/2024 CBC W Diffe renti al panel , metho d unspe cifie d - Blood erythrocytes [#/volume] in blood by automated count 3.75 10*6/ mm3 low: 4.1410 *6/mm3 high: 5.810* 6/mm3 low RBC 3.75 (L) 4.14 - 5.80 10*6/ mm3 08/21 9:49 PM EDT [facility] Not Available Not Available 09/01/2024 16:24:08/22/19 25 08/21/2024 CBC W Diffe renti al panel , metho d unspe cifie d - Blood hemoglobin [mass/volume ] in blood 8.8 g/dL low: 13g/dL high: 17.7g/ dL low Hemog lobin 8.8 (L) 13.0 - 17.7 g/dL 08/21 9:49 PM EDT [employer] [facility] [facility] Not Available Not Available 09/01/2024 16:24:25 08/22/19 25 08/21/2024 CBC W Diffe renti al panel , metho d unspe cifie d - Blood hematocrit [volume fraction] of blood by automated count 29 % low: 37.5%h igh: 51% low Hemat ocrit 29.0 (L) 37.5 - 51.0 % 08/21 9:49 PM EDT [employer] [facility] [facility] Not Available Not Available 09/01/2024 16:24:25 08/22/19 25 08/21/2024 CBC W Diffe renti al panel , metho d unspe cifie d - Blood MCV [entitic mean volume] in red blood cells by automated count 77.3 fL low: 79fLhi gh: 97fL low MCV 77.3 (L) 79.0 - 97.0 fL 08/21 9:49 PM EDT [employer] [facility] [employer] [facility] Not Available Not Available 09/01/2024 16:24:25 08/22/19 25 08/21/2024 CBC W Diffe renti al panel , metho d unspe cifie d - Blood MCH [entitic mass] by automated count 23.5 pg low: 26.6pg high: 33pg low MCH 23.5 (L) 26.6 - 33.0 pg 08/21 9:49 PM EDT [employer] [facility] [employer] [facility] Not Available Not Available 09/01/2024 16:24:25 08/22/19 25 08/21/2024 CBC W Diffe renti al panel , metho d unspe cifie d - Blood MCHC [entitic mass/volume] in red blood cells by automated count 30.3 g/dL low: 31.5g/ dLhigh : 35.7g/ dL low MCHC 30.3 (L) 31.5 - 35.7 g/dL 08/21 9:49 PM EDT [employer] [facility] Not Available Not Available 09/01/2024 16:24:25 08/22/19 25 08/21/2024 CBC W Diffe renti al panel , metho d unspe cifie d - Blood erythrocyte [distwidth] in red blood cells by automated count 16.9 % low: 12.3%h igh: 15.4% high RDW 16.9 (H) 12.3 - 15.4 % 08/21 9:49 PM EDT [facility] Not Available Not Available 09/01/2024 16:24:25 08/22/19 25 08/21/2024 CBC W Diffe renti al panel , metho d unspe cifie d - Blood RDW-SD 47.4 fL low: 37fLhi gh: 54fL RDW-S D 47.4 37.0 - 54.0 fl 08/21 9:49 PM EDT [employer] [facility] Not Available Not Available 09/01/2024 16:24:25 08/22/19 25 08/21/2024 CBC W Diffe renti al panel , metho d unspe cifie d - Blood platelet [entitic mean volume] in blood by automated count 8.6 fL low: 6fLhig h: 12fL MPV 8.6 6.0 - 12.0 fL 08/21 9:49 PM EDT [employer] [facility] Not Available Not Available 09/01/2024 16:24:25 08/22/19 25 08/21/2024 CBC W Diffe renti al panel , metho d unspe cifie d - Blood platelets [#/volume] in blood by automated count 433 10*3/ mm3 low: 42552* 3/mm3h igh: 93420* 3/mm3 Plate lets 433 140 - 450 10*3/ mm3 08/21 9:49 PM EDT [facility] [employer] [facility] Not Available Not Available 09/01/2024 16:24:25 08/22/19 25 08/21/2024 CBC W Diffe renti al panel , metho d unspe cifie d - Blood neutrophils/ leukocytes in blood by automated count 69.8 % low: 42.7%h igh: 76% Neutr ophil % 69.8 42.7 - 76.0 % 08/21 9:49 PM EDT [facility] [employer] [facility] Not Available Not Available 09/01/2024 16:24:25 08/22/19 25 08/21/2024 CBC W Diffe renti al panel , metho d unspe cifie d - Blood lymphocytes/ leukocytes in blood by automated count 16.7 % low: 19.6%h igh: 45.3% low Lymph ocyte % 16.7 (L) 19.6 - 45.3 % 08/21 9:49 PM EDT [facility] [email or web address] [facility] Not Available Not Available 09/01/2024 16:24:25 08/22/19 25 08/21/2024 CBC W Diffe renti al panel , metho d unspe cifie d - Blood monocytes/le ukocytes in blood by automated count 6.9 % low: 5%high : 12% Monoc yte % 6.9 5.0 - 12.0 % 08/21 9:49 PM EDT [facility] [employer] [facility] Not Available Not Available 09/01/2024 16:24:25 08/22/19 25 08/21/2024 CBC W Diffe renti al panel , metho d unspe cifie d - Blood eosinophils/ leukocytes in blood by automated count 3.4 % low: 0.3%hi gh: 6.2% Eosin ophil % 3.4 0.3 - 6.2 % 08/21 9:49 PM EDT [facility] [employer] [facility] Not Available Not Available 09/01/2024 16:24:25 08/22/19 25 08/21/2024 CBC W Diffe renti al panel , metho d unspe cifie d - Blood basophils/le ukocytes in blood by automated count 0.4 % low: 0%high : 1.5% Basop hil % 0.4 0.0 - 1.5 % 08/21 9:49 PM EDT [employer] [facility] Not Available Not Available 09/01/2024 16:24:25 08/22/19 25 08/21/2024 CBC W Diffe renti al panel , metho d unspe cifie d - Blood immature granulocytes /leukocytes in blood by automated count 2.8 % low: 0%high : 0.5% high Immat ure Grans % 2.8 (H) 0.0 - 0.5 % 08/21 9:49 PM EDT [facility] Not Available Not Available 09/01/2024 16:24:25 08/22/19 25 08/21/2024 CBC W Diffe renti al panel , metho d unspe cifie d - Blood neutrophils/ leukocytes in blood by automated count 7.35 10*3/ mm3 low: 1.710* 3/mm3h igh: 710*3/ mm3 high Neutr ophil s, Absol naknek 7.35 (H) 1.70 - 7.00 10*3/ mm3 08/21 9:49 PM EDT [employer] [facility] Not Available Not Available 09/01/2024 16:24:25 08/22/19 25 08/21/2024 CBC W Diffe renti al panel , metho d unspe cifie d - Blood lymphocytes [#/volume] in blood by automated count 1.75 10*3/ mm3 low: 0.710* 3/mm3h igh: 3.110* 3/mm3 Lymph ocyte s, Absol naknek 1.75 0.70 - 3.10 10*3/ mm3 08/21 9:49 PM EDT [employer] [facility] Not Available Not Available 09/01/2024 16:24:25 08/22/19 25 08/21/2024 CBC W Diffe renti al panel , metho d unspe cifie d - Blood monocytes [#/volume] in blood by automated count 0.72 10*3/ mm3 low: 0.110* 3/mm3h igh: 0.910* 3/mm3 Monoc ytes, Absol naknek 0.72 0.10 - 0.90 10*3/ mm3 08/21 9:[address] [employer] [facility] Not Available Not Available 09/01/2024 16:24:25 08/22/19 25 08/21/2024 CBC W Diffe renti al panel , metho d unspe cifie d - Blood eosinophils [#/volume] in blood by automated count 0.36 10*3/ mm3 low: 010*3/ mm3hig h: 0.410* 3/mm3 Eosin ophil s, Absol naknek 0.36 0.00 - 0.40 10*3/ mm3 08/21 9:49 PM EDT [employer] [facility] Not Available Not Available 09/01/2024 16:24:25 08/22/19 25 08/21/2024 CBC W Diffe renti al panel , metho d unspe cifie d - Blood basophils [#/volume] in blood by automated count 0.04 10*3/ mm3 low: 010*3/ mm3hig h: 0.210* 3/mm3 Basop hils, Absol naknek 0.04 0.00 - 0.20 10*3/ mm3 08/21 9:49 PM EDT [employer] [facility] Not Available Not Available 09/01/2024 16:24:25 08/22/19 25 08/21/2024 CBC W Diffe renti al panel , metho d unspe cifie d - Blood immature granulocytes [#/volume] in blood by automated count 0.29 10*3/ mm3 low: 010*3/ mm3hig h: 0.0510 *3/mm3 high Immat ure Grans , Absol naknek 0.29 (H) 0.00 - 0.05 10*3/ mm3 08/21 9:49 PM EDT [email or web address] [facility] Not Available Not Available 09/01/2024 16:24:25 08/22/19 25 08/21/2024 CBC W Diffe renti al panel , metho d unspe cifie d - Blood nucleated erythrocytes /leukocytes [ratio] in blood by automated count 0.2 text: 0.0 - 0.2 /100 WBC nRBC 0.2 0.0 - 0.2 /100 WBC 08/21 9:49 PM EDT [facility] Not Available Not Available 09/01/2024 16:24:25 08/22/19 25 08/21/2024 CBC W Diffe renti al panel , metho d unspe cifie d - Blood interpretati on and review of laboratory results Abnorm al Not Available Not Available 16:24:25 08/22/1908/21/2024 Proca lcito basim [Mass /volu me] in Serum or Plasm a procalcitoni n [mass/volume ] in serum or plasma 0.12 NG/mL low: 0NG/mL high: 0.25NG /mL Proca lcito basim 0.12 0.00 - 0.25 ng/mL 08/21 10:18 PM EDT [facility] Not Available Not Available 09/01/2024 16:24:25 08/22/1908/21/2024 Proca lcito basim [Mass /volu me] in Serum or Plasm a Unknown Analyte As a Marker for Sepsis (Non-N eonate s): 1. <0.5 ng/mL repres ents a low risk of severe sepsis and/or septic shock. 2. >2 ng/mL repres ents a high risk of severe sepsis and/or septic shock. As a Marker for Lower Respir atory Tract Infect ions that requir e antibi otic therap y: PCT on Admiss ion Antibi otic Therap y 6-12 Hrs later >0.5 Strong ly Recomm ended >0.25 - <0.5 Recomm ended 0.1 - 0.25 Discou raged Remeas ure/re assess PCT <0.1 Strong ly Discou raged Remeas ure/re assess PCT As 28 day mortal ity risk marker : Manzanares e in Procal citoni n Result (>80% or <=80%) if Day 0 (or Day 1) and Day 4 values are availa ble. Refer to http:/ /www.[email or web address] [place]- pct-ca lculat or.com Change in PCT <=80% A decrea se of PCT levels below or equal to 80% define s a positi ve change in PCT test result repres enting a higher risk for 28-day all-ca use mortal ity of patien ts diagno sed with severe sepsis for septic shock. Change in PCT >80% A decrea se of PCT levels of more than 80% define s a negati ve change in PCT result repres enting a lower risk for 28-day all-ca use mortal ity of patien ts diagno sed with severe sepsis or septic shock. As a Marke r for Sepsi s (Non- Neona elizabeth): 1. <0.5 ng/mL repre sents a low risk of sever e sepsi s and/o r septi c shock . 2. >2 ng/mL repre sents a high risk of sever e sepsi s and/o r septi c shock . As a Marke r for Lower Respi rator y Tract Infec tions that requi re antib iotic thera py: PCT on Admis eloy Antib iotic Thera py 6-12 Hrs later >0.5 Stron gly Recom danis d >0.25 - <0.5 Recom danis d 0.1 - 0.25 Disco urage d Remea sure/ reass ess PCT <0.1 Stron gly Disco urage d Remea sure/ reass ess PCT As 28 day morta lity risk marke r: Russ flood in Proca lcito basim Resul t (>80% or <=80% ) if Day 0 (or Day 1) and Day 4 value s are avail able. Refer to http: //www .[email or web address] ms- isaias-jone farias or.co aleksandr sneed in PCT <=80% A decre ase of PCT level s below or equal to 80% defin es a posit minh sneed in PCT test resul t repre senti ng a highe r risk for 28-da y all-c ause morta lity of patie nts diagn osed with sever e sepsi s for septi c shock . Manzanares e in PCT >80% A decre ase of PCT level s of more than 80% defin es a negat minh manzanares e in PCT resul t repre senti ng a lower risk for 28-da y all-c ause morta lity of patie nts diagn osed with sever e sepsi s or septi c shock . Not Available Not Available 09/01/2024 16:24:25 08/22/19 25 08/21/2024 Proca lcito basim [Mass /volu me] in Serum or Plasm a interpretati on and review of laboratory results Normal Not Available Not Available 08/12 16:24:25 08/22/19 25 08/21/2024 Tropo basim T.car diac [Mass /volu me] in Serum or Plasm a by High sensi tivit y metho d troponin T.cardiac [mass/volume ] in serum or plasma by high sensitivity method 24 NG/L high: 22NG/L high HS Tropo basim T 24 (H) <22 ng/L 08/21 10:[address] Not Available Not Available 09/01/2024 16:24:25 08/22/19 25 08/21/2024 Tropo basim T.car diac [Mass /volu me] in Serum or Plasm a by High sensi tivit y metho d Unknown Analyte High Sensit minh Tropon in T Refere nce Range: <14.0 ng/L- Negati ve Female for AMI <22.0 ng/L- Negati ve Male for AMI >=14 - Abnorm al Female indica ting possib le myocar dial injury . >=22 - Abnorm al Male indica ting possib le myocar dial injury . Clinic ians would have to utiliz e clinic al acumen , EKG, Tropon in, and serial change s to determ ine if it is an Acute Myocar dial Infarc tion or myocar dial injury due to an underl andrei chroni c condit ion. High Sensi tive Tropo basim T Refer ence Range : <14.0 ng/L- Negat minh Femal e for AMI <22.0 ng/L- Negat minh Male for AMI >=14 - Abnor mal Femal e indic ating possi ble myoca rdial injur y. >=22 - Abnor mal Male indic ating possi ble myoca rdial injur y. Clini dionisions would have to utili ze clini jone acume n, EKG, Tropo basim, and seria l manzanares es to deter mine if it is an Acute Myoca rdial Infar ction or myoca rdial injur y due to an under lying chron ic condi tion. Not Available Not Available 09/01/2024 16:24:25 08/22/19 25 08/21/2024 Tropo basim T.car diac [Mass /volu me] in Serum or Plasm a by High sensi tivit y metho d interpretati on and review of laboratory results Abnorm al Not Available Not Available 16:24:25 08/22/19 25 08/21/2024 Basic metab olic 2000 panel - Serum or Plasm a glucose [mass/volume ] in capillary blood by glucometer 240 mg/dL low: 70mg/d Lhigh: 130mg/ dL high Gluco se 240 (H) 70 - 130 mg/dL 08/21 8:[address] [facility] Not Available Not Available 09/01/2024 16:24:25 08/22/19 25 08/21/2024 Basic metab olic 2000 panel - Serum or Plasm a interpretati on and review of laboratory results Abnorm al Not Available Not Available 16:24:25 08/22/19 25 08/21/2024 Basic metab olic 2000 panel - Serum or Plasm a glucose [mass/volume ] in capillary blood by glucometer 267 mg/dL low: 70mg/d Lhigh: 130mg/ dL high Gluco se 267 (H) 70 - 130 mg/dL 08/21 4:[address] [facility] Not Available Not Available 09/01/2024 16:24:25 08/22/19 25 08/21/2024 Basic metab olic 2000 panel - Serum or Plasm a interpretati on and review of laboratory results Abnorm al Not Available Not Available 16:24:25 08/22/19 25 08/21/2024 Basic metab olic 2000 panel - Serum or Plasm a glucose [mass/volume ] in capillary blood by glucometer 232 mg/dL low: 70mg/d Lhigh: 130mg/ dL high Gluco se 232 (H) 70 - 130 mg/dL 08/21 11:31 AM EDT [employer] [facility] Not Available Not Available 09/01/2024 16:24:25 08/22/19 25 08/21/2024 Basic metab olic 2000 panel - Serum or Plasm a interpretati on and review of laboratory results Abnorm al Not Available Not Available 16:24:25 08/22/19 25 08/21/2024 CBC panel - Blood by Autom ated count leukocytes [#/volume] corrected for nucleated erythrocytes in blood by automated count 11.91 10*3/ mm3 low: 3.410* 3/mm3h igh: 10.810 *3/mm3 high WBC 11.91 (H) 3.40 - 10.80 10*3/ mm3 08/21 11:03 AM EDT [facility] Not Available Not Available 09/01/2024 16:24:25 08/22/19 25 08/21/2024 CBC panel - Blood by Autom ated count erythrocytes [#/volume] in blood by automated count 3.76 10*6/ mm3 low: 4.1410 *6/mm3 high: 5.810* 6/mm3 low RBC 3.76 (L) 4.14 - 5.80 10*6/ mm3 08/21 11:03 AM EDT [facility] Not Available Not Available 09/01/2024 16:24:25 08/22/19 25 08/21/2024 CBC panel - Blood by Autom ated count hemoglobin [mass/volume ] in blood 8.8 g/dL low: 13g/dL high: 17.7g/ dL low Hemog lobin 8.8 (L) 13.0 - 17.7 g/dL 08/21 11:03 AM EDT [employer] [facility] Not Available Not Available 09/01/2024 16:24:25 08/22/19 25 08/21/2024 CBC panel - Blood by Autom ated count hematocrit [volume fraction] of blood by automated count 28.9 % low: 37.5%h igh: 51% low Hemat ocrit 28.9 (L) 37.5 - 51.0 % 08/21 11:03 AM EDT [facility] Not Available Not Available 09/01/2024 16:24:25 08/22/19 25 08/21/2024 CBC panel - Blood by Autom ated count MCV [entitic mean volume] in red blood cells by automated count 76.9 fL low: 79fLhi gh: 97fL low MCV 76.9 (L) 79.0 - 97.0 fL 08/21 11:03 AM EDT [facility] Not Available Not Available 09/01/2024 16:24:25 08/22/19 25 08/21/2024 CBC panel - Blood by Autom ated count MCH [entitic mass] by automated count 23.4 pg low: 26.6pg high: 33pg low MCH 23.4 (L) 26.6 - 33.0 pg 08/21 11:03 AM EDT [facility] Not Available Not Available 09/01/2024 16:24:25 08/22/19 25 08/21/2024 CBC panel - Blood by Autom ated count MCHC [entitic mass/volume] in red blood cells by automated count 30.4 g/dL low: 31.5g/ dLhigh : 35.7g/ dL low MCHC 30.4 (L) 31.5 - 35.7 g/dL 08/21 11:03 AM [employer] AT[facility] Not Available Not Available 09/01/2024 16:24:25 08/22/19 25 08/21/2024 CBC panel - Blood by Autom ated count erythrocyte [distwidth] in red blood cells by automated count 17 % low: 12.3%h igh: 15.4% high RDW 17.0 (H) 12.3 - 15.4 % 08/21 11:03 AM EDT [facility] Not Available Not Available 09/01/2024 16:24:25 08/22/19 25 08/21/2024 CBC panel - Blood by Autom ated count RDW-SD 47.3 fL low: 37fLhi gh: 54fL RDW-S D 47.3 37.0 - 54.0 fl 08/21 11:03 AM EDT [facility] [employer] [facility] Not Available Not Available 09/01/2024 16:24:25 08/22/19 25 08/21/2024 CBC panel - Blood by Autom ated count platelet [entitic mean volume] in blood by automated count 8.2 fL low: 6fLhig h: 12fL MPV 8.2 6.0 - 12.0 fL 08/21 11:03 AM EDT [employer] [facility] [employer] [facility] Not Available Not Available 09/01/2024 16:24:25 08/22/19 25 08/21/2024 CBC panel - Blood by Autom ated count platelets [#/volume] in blood by automated count 415 10*3/ mm3 low: 30048* 3/mm3h igh: 00639* 3/mm3 Plate lets 415 140 - 450 10*3/ mm3 08/21 11:03 AM EDT [employer] [facility] [employer] [facility] Not Available Not Available 09/01/2024 16:24:25 08/22/19 25 08/21/2024 CBC panel - Blood by Autom ated count interpretati on and review of laboratory results Abnorm al Not Available Not Available 16:24:25 08/22/19 25 08/21/2024 Basic metab olic 2000 panel - Serum or Plasm a glucose [mass/volume ] in serum or plasma 212 mg/dL low: 65mg/d Lhigh: 99mg/d L high Gluco se 212 (H) 65 - 99 mg/dL 08/21 11:38 AM EDT [facility] [employer] [facility] Not Available Not Available 09/01/2024 16:24:25 08/22/19 25 08/21/2024 Basic metab olic 2000 panel - Serum or Plasm a urea nitrogen [mass/volume ] in serum or plasma 48 mg/dL low: 8mg/dL high: 23mg/d L high BUN 48 (H) 8 - 23 mg/dL 08/21 11:38 AM [employer] ATORY Not Available Not Available 09/01/2024 16:24:25 08/22/19 25 08/21/2024 Basic metab olic 1999 panel - Serum or Plasm a creatinine [mass/volume ] in serum or plasma 1.35 mg/dL low: 0.76mg /dLhig h: 1.27mg /dL high Creat inine 1.35 (H) 0.76 - 1.27 mg/dL 08/21 11:38 AM EDT [facility] Not Available Not Available 09/01/2024 16:24:25 08/22/19 25 08/21/2024 Basic metab olic 1999 panel - Serum or Plasm a sodium [moles/volum e] in serum or plasma 135 mmol/ L low: 136mmo l/Lhig h: 145mmo l/L low Sodiu m 135 (L) 136 - 145 mmol/ L 08/21 11:38 AM [employer] ATORY Not Available Not Available 09/01/2024 16:24:25 08/22/19 25 08/21/2024 Basic metab olic 1999 panel - Serum or Plasm a potassium [moles/volum e] in serum or plasma 4.7 mmol/ L low: 3.5mmo l/Lhig h: 5.2mmo l/L Potas sium 4.7 3.5 - 5.2 mmol/ L 08/21 11:38 AM EDT [facility] Not Available Not Available 09/01/2024 16:24:25 08/22/19 25 08/21/2024 Basic metab olic 1999 panel - Serum or Plasm a chloride [moles/volum e] in serum or plasma 96 mmol/ L low: 98mmol /Lhigh : 107mmo l/L low Chlor chava 96 (L) 98 - 107 mmol/ L 08/21 11:[address] [employer] [facility] [employer] [facility] Not Available Not Available 09/01/2024 16:24:25 08/22/19 25 08/21/2024 Basic metab olic 1999 panel - Serum or Plasm a carbon dioxide, total [moles/volum e] in serum or plasma 28 mmol/ L low: 22mmol /Lhigh : 29mmol /L CO2 28.0 22.0 - 29.0 mmol/ L 08/21 11:38 AM EDT [employer] [facility] [employer] [facility] Not Available Not Available 09/01/2024 16:24:25 08/22/19 25 08/21/2024 Basic metab olic 1999 panel - Serum or Plasm a calcium [moles/volum e] in specimen 9.4 mg/dL low: 8.6mg/ dLhigh : 10.5mg /dL Calci um 9.4 8.6 - 10.5 mg/dL 08/21 11:38 AM EDT [employer] [facility] [facility] Not Available Not Available 09/01/2024 16:24:25 08/22/19 25 08/21/2024 Basic metab olic 1999 panel - Serum or Plasm a urea nitrogen/cre atinine [mass ratio] in serum or plasma 35.6 low: 7high: 25 high BUN/C reati nine Ratio 35.6 (H) 7.0 - 25.0 08/21 11:38 AM EDT [employer] [facility] [facility] Not Available Not Available 09/01/2024 16:24:25 08/22/19 25 08/21/2024 Basic metab olic 1999 panel - Serum or Plasm a anion gap in serum or plasma by calculated.3 ions 11 mmol/ L low: 5mmol/ Lhigh: 15mmol /L Anion Gap 11.0 5.0 - 15.0 mmol/ L 08/21 11:38 AM EDT [employer] [facility] Not Available Not Available 09/01/2024 16:24:25 08/22/19 25 08/21/2024 Basic metab olic 2000 panel - Serum or Plasm a glomerular filtration rate [volume rate/area] in serum, plasma or blood by creatinine-b ased formula (CKD-epi 2020)/1.73 sq M 59 mL/mi n/1.7 3 low: 60mL/m in/1.7 3 low eGFR 59.0 (L) >60.0 mL/mi n/1.7 3 08/21 11:[address] [facility] Not Available Not Available 09/01/2024 16:24:25 08/22/1908/21/2024 Basic metab olic 2000 panel - Serum or Plasm a Unknown Analyte GFR Catego kylee in Chroni c Kidney Diseas e (CKD) GFR Catego ry GFR (mL/mi n/1.73 ) Interp retati on G1 90 or greate r Normal or high (1) G2 60-89 Mild decrea se (1) G3a 45-59 Mild to modera te decrea se G3b 30-44 Modera te to severe decrea se G4 15-29 Severe decrea se G5 14 or less Kidney failur e (1)In the absenc e of eviden ce of kidney diseas e, neithe r GFR catego ry G1 or G2 fulfil l the criter ia for CKD. eGFR calcul ation 2020 CKD-EP I creati nine equati on, which does not includ e race as a factor GFR Categ ories in Chron ic Kidne y Disea se (CKD) GFR Categ ory GFR (mL/m in/1. 73) Inter preta tion G1 90 or great er Etta l or high (1) G2 60-89 Mild decre ase (1) G3a 45-59 Mild to moder ate decre ase G3b 30-44 Moder ate to sever e decre ase G4 15-29 Sever e decre ase G5 14 or less Kidne y failu re (1)In the absen ce of evide nce of kidne y disea se, neith er GFR categ ory G1 or G2 fulfi ll the crite beth[place] for CKD. eGFR calcu latio n 2020 CKD-E PI creat inine equat ion, which does not inclu de race as a facto r Not Available Not Available 09/01/2024 16:24:08/22/19 25 08/21/2024 Basic metab olic 2000 panel - Serum or Plasm a interpretati on and review of laboratory results Abnorm al Not Available Not Available 16:24:25 08/22/19 25 08/21/2024 Basic metab olic 2000 panel - Serum or Plasm a glucose [mass/volume ] in capillary blood by glucometer 217 mg/dL low: 70mg/d Lhigh: 130mg/ dL high Gluco se 217 (H) 70 - 130 mg/dL 08/21 7:[address] [facility] Not Available Not Available 09/01/2024 16:24:25 08/22/19 25 08/21/2024 Basic metab olic 2000 panel - Serum or Plasm a interpretati on and review of laboratory results Abnorm al Not Available Not Available 16:24:25 08/23/19 25 08/22/2024 Basic metab olic 2000 panel - Serum or Plasm a glucose [mass/volume ] in capillary blood by glucometer 360 mg/dL low: 70mg/d Lhigh: 130mg/ dL high Gluco se 360 (H) 70 - 130 mg/dL 08/22 8:[address] [employer] [facility] [facility] Not Available Not Available 09/01/2024 16:24:25 08/23/19 25 08/22/2024 Basic metab olic 2000 panel - Serum or Plasm a interpretati on and review of laboratory results Abnorm al Not Available Not Available 16:24:25 08/23/19 25 08/22/2024 Basic metab olic 2000 panel - Serum or Plasm a glucose [mass/volume ] in capillary blood by glucometer 297 mg/dL low: 70mg/d Lhigh: 130mg/ dL high Gluco se 297 (H) 70 - 130 mg/dL 08/22 4:[address] [employer] [facility] Not Available Not Available 09/01/2024 16:24:25 08/23/19 25 08/22/2024 Basic metab olic 2000 panel - Serum or Plasm a interpretati on and review of laboratory results Abnorm al Not Available Not Available 16:24:25 08/23/19 25 08/22/2024 Basic metab olic 1999 panel - Serum or Plasm a glucose [mass/volume ] in capillary blood by glucometer 276 mg/dL low: 70mg/d Lhigh: 130mg/ dL high Gluco se 276 (H) 70 - 130 mg/dL 08/22 11:[address] Not Available Not Available 09/01/2024 16:24:25 08/23/19 25 08/22/2024 Basic metab olic 2000 panel - Serum or Plasm a interpretati on and review of laboratory results Abnorm al Not Available Not Available 16:24:25 08/23/19 25 08/22/2024 Basic metab olic 1999 panel - Serum or Plasm a glucose [mass/volume ] in capillary blood by glucometer 323 mg/dL low: 70mg/d Lhigh: 130mg/ dL high Gluco se 323 (H) 70 - 130 mg/dL 08/22 7:[address] [facility] Not Available Not Available 09/01/2024 16:24:25 08/23/19 25 08/22/2024 Basic metab olic 2000 panel - Serum or Plasm a interpretati on and review of laboratory results Abnorm al Not Available Not Available 16:24:25 08/23/19 25 08/22/2024 Tropo basim T.car diac [Mass /volu me] in Serum or Plasm a by High sensi tivit y metho d hs troponin T 27 NG/L high: 22NG/L high HS Tropo basim T 27 (H) <22 ng/L 08/22 12:[address] [facility] Not Available Not Available 09/01/2024 16:24:25 08/23/19 25 08/22/2024 Tropo basim T.car diac [Mass /volu me] in Serum or Plasm a by High sensi tivit y metho d troponin T numeric delta 3 NG/L Tropo basim T Numer ic Delta 3 ng/L 08/22 12:[address] Not Available Not Available 09/01/2024 16:24:25 08/23/19 25 08/22/2024 Tropo basim T.car diac [Mass /volu me] in Serum or Plasm a by High sensi tivit y metho d troponin T % delta 13 text: abnorm al if >/= 20% Tropo basim T % Delta 13 Abnor mal if >/= 20% 08/22 12:[address] Not Available Not Available 09/01/2024 16:24:25 08/23/19 25 08/22/2024 Tropo basim T.car diac [Mass /volu me] in Serum or Plasm a by High sensi tivit y metho d Unknown Analyte High Sensit minh Tropon in T Refere nce Range: <14.0 ng/L- Negati ve Female for AMI <22.0 ng/L- Negati ve Male for AMI >=14 - Abnorm al Female indica ting possib le myocar dial injury . >=22 - Abnorm al Male indica ting possib le myocar dial injury . Clinic ians would have to utiliz e clinic al acumen , EKG, Tropon in, and serial change s to determ ine if it is an Acute Myocar dial Infarc tion or myocar dial injury due to an underl andrei chroni c condit ion. High Sensi tive Tropo basim T Refer ence Range : <14.0 ng/L- Negat minh Femal e for AMI <22.0 ng/L- Negat minh Male for AMI >=14 - Abnor mal Femal e indic ating possi ble myoca rdial injur y. >=22 - Abnor mal Male indic ating possi ble myoca rdial injur y. Clini cians would have to utili ze clini jone acume n, EKG, Tropo basim, and seria l manzanares es to deter mine if it is an Acute Myoca rdial Infar ction or myoca rdial injur y due to an under lying chron ic condi tion. Not Available Not Available 09/01/2024 16:24:25 08/23/19 25 08/22/2024 Tropo basim T.car diac [Mass /volu me] in Serum or Plasm a by High sensi tivit y metho d interpretati on and review of laboratory results Abnorm al Not Available Not Available 16:24:25 08/24/19 25 08/23/2024 Basic metab olic 2000 panel - Serum or Plasm a glucose [mass/volume ] in capillary blood by glucometer 257 mg/dL low: 70mg/d Lhigh: 130mg/ dL high Gluco se 257 (H) 70 - 130 mg/dL 08/23 11:[address] Not Available Not Available 09/01/2024 16:24:26 08/24/19 25 08/23/2024 Basic metab olic 2000 panel - Serum or Plasm a interpretati on and review of laboratory results Abnorm al Not Available Not Available 16:24:26 08/24/19 25 08/23/2024 Basic metab olic 2000 panel - Serum or Plasm a glucose [mass/volume ] in capillary blood by glucometer 378 mg/dL low: 70mg/d Lhigh: 130mg/ dL high Gluco se 378 (H) 70 - 130 mg/dL 08/23 6:59 AM EDT [employer] [facility] [employer] [facility] [employer] [employer] [facility] Not Available Not Available 09/01/2024 16:24:26 08/24/19 25 08/23/2024 Basic metab olic 2000 panel - Serum or Plasm a interpretati on and review of laboratory results Abnorm al Not Available Not Available 16:24:26 08/24/19 25 08/23/2024 Basic metab olic 2000 panel - Serum or Plasm a glucose [mass/volume ] in capillary blood by glucometer 413 mg/dL low: 70mg/d Lhigh: 130mg/ dL critical high Gluco se 413 (HH) 70 - 130 mg/dL 08/23 6:[address] Not Available Not Available 09/01/2024 16:24:26 08/24/19 25 08/23/2024 Basic metab olic 2000 panel - Serum or Plasm a interpretati on and review of laboratory results Abnorm al Not Available Not Available 16:24:26 08/24/19 25 08/23/2024 CBC W Diffe renti al panel , metho d unspe cifie d - Blood leukocytes [#/volume] corrected for nucleated erythrocytes in blood by automated count 12.41 10*3/ mm3 low: 3.410* 3/mm3h igh: 10.810 *3/mm3 high WBC 12.41 (H) 3.40 - 10.80 10*3/ mm3 08/23 6:21 AM EDT [employer] [facility] Not Available Not Available 09/01/2024 16:24:26 08/24/19 25 08/23/2024 CBC W Diffe renti al panel , metho d unspe cifie d - Blood erythrocytes [#/volume] in blood by automated count 4.15 10*6/ mm3 low: 4.1410 *6/mm3 high: 5.810* 6/mm3 RBC 4.15 4.14 - 5.80 10*6/ mm3 08/23 6:21 AM EDT [employer] [facility] Not Available Not Available 09/01/2024 16:24:26 08/24/19 25 08/23/2024 CBC W Diffe renti al panel , metho d unspe cifie d - Blood hemoglobin [mass/volume ] in blood 9.5 g/dL low: 13g/dL high: 17.7g/ dL low Hemog lobin 9.5 (L) 13.0 - 17.7 g/dL 08/23 6:21 AM EDT [employer] [facility] Not Available Not Available 09/01/2024 16:24:26 08/24/19 25 08/23/2024 CBC W Diffe renti al panel , metho d unspe cifie d - Blood hematocrit [volume fraction] of blood by automated count 32 % low: 37.5%h igh: 51% low Hemat ocrit 32.0 (L) 37.5 - 51.0 % 08/23 6:21 AM EDT [employer] [facility] Not Available Not Available 09/01/2024 16:24:26 08/24/19 25 08/23/2024 CBC W Diffe renti al panel , metho d unspe cifie d - Blood MCV [entitic mean volume] in red blood cells by automated count 77.1 fL low: 79fLhi gh: 97fL low MCV 77.1 (L) 79.0 - 97.0 fL 08/23 6:21 AM EDT [employer] [facility] Not Available Not Available 09/01/2024 16:24:26 08/24/19 25 08/23/2024 CBC W Diffe renti al panel , metho d unspe cifie d - Blood MCH [entitic mass] by automated count 22.9 pg low: 26.6pg high: 33pg low MCH 22.9 (L) 26.6 - 33.0 pg 08/23 6:21 AM EDT [employer] [facility] [facility] Not Available Not Available 09/01/2024 16:24:26 08/24/19 25 08/23/2024 CBC W Diffe renti al panel , metho d unspe cifie d - Blood MCHC [entitic mass/volume] in red blood cells by automated count 29.7 g/dL low: 31.5g/ dLhigh : 35.7g/ dL low MCHC 29.7 (L) 31.5 - 35.7 g/dL 08/23 6:21 AM EDT [employer] [facility] Not Available Not Available 09/01/2024 16:24:26 08/24/19 25 08/23/2024 CBC W Diffe renti al panel , metho d unspe cifie d - Blood erythrocyte [distwidth] in red blood cells by automated count 16.8 % low: 12.3%h igh: 15.4% high RDW 16.8 (H) 12.3 - 15.4 % 08/23 6:21 AM EDT [employer] [facility] Not Available Not Available 09/01/2024 16:24:26 08/24/19 08/23/2024 CBC W Diffnaren kumar al panel , metho d unspe cifie d - Blood RDW-SD 46.9 fL low: 37fLhi gh: 54fL RDW-S D 46.9 37.0 - 54.0 fl 08/23 6:21 AM EDT [employer] [facility] Not Available Not Available 09/01/2024 16:24:26 08/24/19 25 08/23/2024 CBC W Anthony kumar al panel , metho d unspe cifie d - Blood platelet [entitic mean volume] in blood by automated count 8.4 fL low: 6fLhig h: 12fL MPV 8.4 6.0 - 12.0 fL 08/23 6:21 AM EDT [employer] ATORY Not Available Not Available 09/01/2024 16:24:26 08/24/19 25 08/23/2024 CBC W Anthony kumar al panel , metho d unspe cifie d - Blood platelets [#/volume] in blood by automated count 472 10*3/ mm3 low: 89310* 3/mm3h igh: 53551* 3/mm3 high Plate lets 472 (H) 140 - 450 10*3/ mm3 08/23 6:21 AM EDT [employer] [facility] Not Available Not Available 09/01/2024 16:24:26 08/24/19 25 08/23/2024 CBC W Anthony kumar al panel , metho d unspe cifie d - Blood neutrophils/ leukocytes in blood by automated count 72.6 % low: 42.7%h igh: 76% Neutr ophil % 72.6 42.7 - 76.0 % 08/23 6:21 AM EDT [employer] Not Available Not Available 09/01/2024 16:24:26 08/24/19 25 08/23/2024 CBC W Diffe josé al panel , metho d unspe cifie d - Blood lymphocytes/ leukocytes in blood by automated count 16.5 % low: 19.6%h igh: 45.3% low Lymph ocyte % 16.5 (L) 19.6 - 45.3 % 08/23 6:21 AM EDT [email or web address] [facility] Not Available Not Available 09/01/2024 16:24:26 08/24/19 25 08/23/2024 CBC W Diffe renti al panel , metho d unspe cifie d - Blood monocytes/le ukocytes in blood by automated count 6 % low: 5%high : 12% Monoc yte % 6.0 5.0 - 12.0 % 08/23 6:21 AM EDT [facility] [facility] Not Available Not Available 09/01/2024 16:24:26 08/24/19 25 08/23/2024 CBC W Diffe renti al panel , metho d unspe cifie d - Blood eosinophils/ leukocytes in blood by automated count 0.6 % low: 0.3%hi gh: 6.2% Eosin ophil % 0.6 0.3 - 6.2 % 08/23 6:21 AM EDT [facility] [facility] Not Available Not Available 09/01/2024 16:24:26 08/24/19 25 08/23/2024 CBC W Diffe renti al panel , metho d unspe cifie d - Blood basophils/le ukocytes in blood by automated count 0.4 % low: 0%high : 1.5% Basop hil % 0.4 0.0 - 1.5 % 08/23 6:21 AM EDT [employer] [facility] Not Available Not Available 09/01/2024 16:24:26 08/24/19 25 08/23/2024 CBC W Diffe renti al panel , metho d unspe cifie d - Blood immature granulocytes /leukocytes in blood by automated count 3.9 % low: 0%high : 0.5% high Immat ure Grans % 3.9 (H) 0.0 - 0.5 % 08/23 6:21 AM EDT [employer] [facility] Not Available Not Available 09/01/2024 16:24:26 08/24/19 25 08/23/2024 CBC W Diffe renti al panel , metho d unspe cifie d - Blood neutrophils/ leukocytes in blood by automated count 9 10*3/ mm3 low: 1.710* 3/mm3h igh: 710*3/ mm3 high Neutr ophil s, Absol naknek 9.00 (H) 1.70 - 7.00 10*3/ mm3 08/23 6:21 AM EDT [employer] [facility] Not Available Not Available 09/01/2024 16:24:26 08/24/19 25 08/23/2024 CBC W Diffe renti al panel , metho d unspe cifie d - Blood lymphocytes [#/volume] in blood by automated count 2.05 10*3/ mm3 low: 0.710* 3/mm3h igh: 3.110* 3/mm3 Lymph ocyte s, Absol naknek 2.05 0.70 - 3.10 10*3/ mm3 08/23 6:21 AM EDT [employer] [facility] Not Available Not Available 09/01/2024 16:24:26 08/24/19 25 08/23/2024 CBC W Diffe renti al panel , metho d unspe cifie d - Blood monocytes [#/volume] in blood by automated count 0.74 10*3/ mm3 low: 0.110* 3/mm3h igh: 0.910* 3/mm3 Monoc ytes, Absol naknek 0.74 0.10 - 0.90 10*3/ mm3 08/23 6:21 AM EDT [employer] [facility] Not Available Not Available 09/01/2024 16:24:26 08/24/19 25 08/23/2024 CBC W Diffe renti al panel , metho d unspe cifie d - Blood eosinophils [#/volume] in blood by automated count 0.08 10*3/ mm3 low: 010*3/ mm3hig h: 0.410* 3/mm3 Eosin ophil s, Absol naknek 0.08 0.00 - 0.40 10*3/ mm3 05/13 /2025 6:21 AM EDT [employer] [facility] Not Available Not Available 09/01/2024 16:24:26 08/24/19 25 08/23/2024 CBC W Diffe renti al panel , metho d unspe cifie d - Blood basophils [#/volume] in blood by automated count 0.05 10*3/ mm3 low: 010*3/ mm3hig h: 0.210* 3/mm3 Basop hils, Absol naknek 0.05 0.00 - 0.20 10*3/ mm3 08/23 6:[address] [employer] [facility] Not Available Not Available 09/01/2024 16:24:26 08/24/19 25 08/23/2024 CBC W Diffe renti al panel , metho d unspe cifie d - Blood immature granulocytes [#/volume] in blood by automated count 0.49 10*3/ mm3 low: 010*3/ mm3hig h: 0.0510 *3/mm3 high Immat ure Grans , Absol naknek 0.49 (H) 0.00 - 0.05 10*3/ mm3 08/23 6:21 [address] ED[address] [facility] [employer] [facility] Not Available Not Available 09/01/2024 16:24:26 08/24/19 25 08/23/2024 CBC W Diffe renti al panel , metho d unspe cifie d - Blood nucleated erythrocytes /leukocytes [ratio] in blood by automated count 0.2 text: 0.0 - 0.2 /100 WBC nRBC 0.2 0.0 - 0.2 /100 WBC 08/23 6:21 AM EDT [facility] [place] [facility] [email or web address] [facility] Not Available Not Available 09/01/2024 16:24:26 08/24/19 25 08/23/2024 CBC W Diffe renti al panel , metho d unspe cifie d - Blood interpretati on and review of laboratory results Abnorm al Not Available Not Available 16:24:26 Result Notes None recorded. Problems Name Problem SNOMED Code Status Onset Date Resolution Date Notes Provider Name and Address Organization Details Recorded Time 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 726899663 Active 2024 Rigoberto Rucker, PHYSICS AND ASTRONOMY PROFESSOR [address], [place], [address], [email or web address] 5 09:10:54 Peripheral arterial disease 262201954 Active 2024 Rigoberto Rucker, PHYSICS AND ASTRONOMY PROFESSOR [address], [place], [address], [email or web address] 5 09:11:40 Paroxysmal atrial fibrillatio n [id number] Active 2024 Rigoberto Rucker, PHYSICS AND ASTRONOMY PROFESSOR [address], [place], [address], [email or web address] 5 09:14:46 Type 2 diabetes mellitus with peripheral angiopathy 270103406 Active 2024 Rigoberto Rucker, PHYSICS AND ASTRONOMY PROFESSOR [address], [place], [address], [email or web address] 5 09:16:10 Microcytic anemia 881491899 Active 2024 Rigoberto Rucker, PHYSICS AND ASTRONOMY PROFESSOR [address], [place], [address], [email or web address] 5 09:16:33 Essential hypertensio n 81772002 Active 2024 Rigoberto Rucker, PHYSICS AND ASTRONOMY PROFESSOR [address], [place], [address], [email or web address] 5 09:16:50 Body mass index 40+ - severely obese 079537937 Active 2024 Rigoberto Rucker, PHYSICS AND ASTRONOMY PROFESSOR [address], [place], [address], [email or web address] 5 09:18:52 Mixed anxiety and depressive disorder 671210348 Active 2024 Rigoberto Rucker, PHYSICS AND ASTRONOMY PROFESSOR [address], [place], [address], [email or web address] 5 09:19:48 Peripheral neuropathy due to type 2 diabetes mellitus 0531794721489 Active 2024 Unyime Eyoh, PHYSICS AND ASTRONOMY PROFESSOR [address], [place], [place], [address], [place] [employer] 5 09:31:19 Muscle weakness 40150874 Active 2024 Unyime Eyoh, PHYSICS AND ASTRONOMY PROFESSOR [address], [place], [address], [place] [employer] 5 22:21:47 Problem Notes None recorded. Medical Equipment None Reported. Allergies Allergen ID Allergen Name Allergen Category Reaction Reaction Severity Criticality Documentation Date Start Date Code Code System Note Provider Name and Address Organization Details Recorded Time 94661 Substance with sulfonami de structure and antibacte rial mechanism of action (substanc e) medicatio n Not available Not available Not available 05/23/2024 08236 8003 SNOMED naima page null, [employer] 5 10:26:26 19592 hydromorp desiree medicatio n Not available Not available Not available 05/23/2024 3423 RxNorm naima page null, [employer] 5 10:26:37 04814 furosemid e medicatio n Not available Not available Not available 05/23/2024 4603 RxNorm naima page null, [employer] 5 10:26:45 79937 morphine medicatio n Not available Not available Not available 05/23/2024 7052 RxNorm naima page null, [employer] 5 10:26:52 90922 sulfameth oxazole / trimethop rim medicatio n Not available Not available Not available 09/01/20242023 15970 RxNorm unrec ogniz ed react ion (text : Nause a And Vomit ing, code: 84113 [id number]) (from exter nal sourc e) Not Available yaron - External Data Service - prod 16:35:13 Medications Name Sig Start Date Stop Date [...] Address Organization Details Last Updated DateTime 05/24/2024 771788.8 g 49.1 kg/m2 190.5 cm Rigoberto Rucker NP [address], [place], [address], [place] [employer] 05/24/2024 08:59:26 Social History None recorded. Functional Status None recorded. Mental Status None recorded. Family History Nothing Reported. Medical History No medical history recorded. Past Encounters Encounter ID Performer Location Encounter Start Date Encounter Closed Date Diagnosis/Indication Diagnosis SNOMED-CT Code Diagnosis ICD10 Code Diagnosis Note [id number] Rigoberto Rucker NP [facility] [address] [place] [address] 05/24/2024 08:58:51 05/24/2024 22:25:01 Osteomyelitis of forefoot 208392617 M86.9 S/p right fourth toe amputation on 04/23/2024. Patient completed IV Zosyn. Patient advised to keep f/u appointmen t for suture removal. SN for wound management and close monitoring . Peripheral arterial disease 313189656 I73.9 continue to foot ulcers, s/p right 4th toe amputation . Continue Plavix, statin and AC. F/U with vascular surgeon. Paroxysmal atrial fibrillation 856550057 I48.0 Continue Metoprolol for rate control and Eliquis for stroke risk reduction. High risk med, monitor for bleeding. Type 2 ryan betes mellitus with peripheral angiopathy 244316777 E11.52 Z79.4 Reports BG controlled . Continue current diabetic regimen, monitor BG closely to assess for lows and assist with insulin adjustment . Consistent carbohydra te. Microcytic anemia 914333 007 D50.9 Hgb stable per hospital record, continue to optimize dietary iron intake. F/U with PCP for labs monitoring . Essential hypertension 59617589 I10 Continue b/p meds, monitor b/p closely, limit salt. HH SN for diseases/m eds management and education. Body mass index 40+ - severely obese 098284825 E66.01 Z68.42 BMI 49.1. Discussed at length most important aspect of weight management being calorie balance, and more specifical ly calorie deficit to begin weight loss. Discussed hypothesis of insulin resistance , intermitte nt fasting, and time restricted feeding. Reviewed protocols and recommenda tions. Mixed anxi ety and depressive disorder 705766233 F41.9 F32.A Continue Hydroxyzin e and Trazodone. Peripheral neuropathy due to type 2 diabetes mellitus 8200994591 107 E11.42 Continue Gabapentin for pain management . Muscle weakness 13914425 M62.81 PT/OT eval and treat to address mobility, gait, transfer and ADLs deficits. Fall precaution s. Health Concerns Section Related Observation LastModified by Organization Detai ls LastModified Time None Recorded Concern Status LastModified by Organization Details LastModified Time None Recorded Advance Directives Directive None Recorded Payers Insurance Date Sequence Insurance Name Policy Number Policy Arevalo Covered Member ID Arevalo Member ID Guarantor Name 08/11/2024 1 [facility] (MEDICARE REPLACEMENT/A DVANTAGE - PPO) [id number] Bebeto Christiansen [id number] Bebeto Christiansen Notes Date Note Type Note [...] suture removal. Patient will benefit from [facility] services to assist with needs. Hospital records reviewed. Medications reviewed and reconciled. Rigoberto Rucker NP [address] [place] [address], [place], [address], [employer] 05/24/2024 22:24:32
[2024-09-10 23:08] LABS: Basophils # 0.1 K/mm3 (0-0.2); Basophils % 0.5 % (0.1-2.0); Eosinophils # 0.3 Kmm3 (0.0-0.4); Eosinophils % 2.7 % (0.1-12.0); Hematocrit 31.4 % (42.0-52.0); Hemoglobin 9.5 g/dL (14.1-18.0); Immature Granulocytes # 0.18 10^3uL; Immature Granulocytes % 1.5 %; Lymphocytes % 16.2 % (10-50); Mean Corpuscular HGB Conc 30.3 g/dL (31.8-35.4); Mean Corpuscular Hemoglobin 22.2 pg (27.0-31.2); Mean Corpuscular Volume 73.4 fl (80-94); Mean Platelet Volume 8.7 fl (7.4-10.4); Monocytes # 0.9 K/mm3 (0.1-1.0); Monocytes % 7.1 % (1.7-9.3); Neutrophils # 8.7 K/mm3 (1.8-7.8); Nucleated Red Blood Cells # 0.02 10^3/uL; Nucleated Red Blood Cells % 0.2 %; Platelet Count 578 K/mm3 (142-424); Red Blood Count 4.28 M/mm3 (4.60-6.20); Red Cell Distribution Width 16.6 % (11.5-17.5); Red Cell Distribution Width-SD 43.7 fL
[2024-09-10 23:13] LABS: Chloride 100 mmol/L (98-107)
[2024-09-10 23:14] LABS: Albumin Level 3.7 g/dl (3.5-5.0); Potassium 4.8 mmoL/L (3.5-5.1); Sodium 131 mmol/L (136-145)
[2024-09-10 23:16] LABS: Blood Urea Nitrogen 58 mg/dl (9-20); Creatinine Clearance Estimated 50 mL/min (50-200); Estimated Glomerular Filt Rate 38 ml/min (>60); GFR (African American) 46 ML/MIN (>60)
[2024-09-10 23:17] LABS: Alanine Aminotransferase 14 U/L (12-78); Alkaline Phosphatase 191 U/L (38-126); Anion Gap 9.8 mEq/L (5-15); Aspartate Amino Transferase 15 U/L (17-59); Bilirubin,Total 0.3 mg/dl (0.2-1.3); Carbon Dioxide 26 mmol/L (22.0-30.0); Globulin 3.7 g/dL (1.3-3.2); Glucose 380 mg/dl (74-100); Total Protein,Serum 7.4 g/dl (6.3-8.2)
[2024-09-10 23:22] LABS: C-Reactive Protein 100.1 mg/L (0-4); INR 1.06 (0.9-1.1); Prothrombin Time 11.7 seconds (10.1-12.5)
[2024-09-10 23:26] LABS: Calcium 12.2 mg/dl (8.4-10.2)
--- NOTE | 2024-09-10 23:32 | XR_ITS ---
PROCEDURE INFORMATION: Exam: XR Left Tibia and Fibula Exam date and time: 09/11/2024 12:48 AM Age: 64 years old Clinical indication: Edema; No, it is generalized; Additional info: Possible osteo TECHNIQUE: Imaging protocol: Radiologic exam of the left tibia and fibula. Views: 2 views. COMPARISON: CR XR FOOT LT MIN 3V 09/11/2024 12:48 AM FINDINGS: Bones/joints: The tibia and fibula are intact. There is no fracture, lytic or blastic abnormality. Degenerative changes of the knee and ankle are noted. Soft tissues: There is diffuse significant subcutaneous edema. IMPRESSION: 1. Diffuse subcutaneous edema. 2. No acute findings of tibia or fibula.
--- NOTE | 2024-09-10 23:32 | XR_ITS ---
PROCEDURE INFORMATION: Exam: XR Left Foot Exam date and time: 09/11/2024 12:48 AM Age: 64 years old Clinical indication: Edema; No, it is generalized; Additional info: C/f osteo TECHNIQUE: Imaging protocol: Radiologic exam of the left foot. Views: 3 or more views. COMPARISON: CR XR FOOT LT MIN 3V 09/11/2024 12:48 AM FINDINGS: Bones/joints: There is evidence of amputation at the mid 5th metatarsal level. No acute osseous abnormalities noted. Moderate degenerative changes of the midfoot are evident. Soft tissues: There is significant soft tissue edema. IMPRESSION: 1. Significant soft tissue edema. 2. No acute osseous abnormality or plain film evidence of osteomyelitis.
--- NOTE | 2024-09-10 23:32 | XR_ITS ---
PROCEDURE INFORMATION: Exam: XR Right Tibia and Fibula Exam date and time: 09/11/2024 12:48 AM Age: 64 years old Clinical indication: Edema; No, it is generalized; Additional info: Possible osteo TECHNIQUE: Imaging protocol: Radiologic exam of the right tibia and fibula. Views: 2 views. COMPARISON: CR XR TIBIA FIBULA RT 2V 09/11/2024 12:48 AM FINDINGS: Bones/joints: The tibia and fibula are intact. There is no fracture, lytic or blastic abnormality. Degenerative changes of the knee and ankle are noted. Soft tissues: There is diffuse significant subcutaneous edema. Questionable soft tissue ulceration laterally at the distal lower leg level. IMPRESSION: 1. Diffuse significant subcutaneous edema. 2. No acute osseous abnormality.
--- NOTE | 2024-09-10 23:32 | XR_ITS ---
PROCEDURE INFORMATION: Exam: XR Right Foot Exam date and time: 09/11/2024 12:48 AM Age: 64 years old Clinical indication: Edema; No, it is generalized; Additional info: C/f osteo TECHNIQUE: Imaging protocol: Radiologic exam of the right foot. Views: 3 or more views. COMPARISON: CR XR TIBIA FIBULA RT 2V 09/11/2024 12:48 AM FINDINGS: Bones/joints: There has been amputation of the 4th toe. No acute osseous abnormality. No lytic process to suggest osteomyelitis. [id number] degenerative changes of the midfoot. Soft tissues: No significant soft tissue edema. 10 mm linear metallic foreign body within the soft tissues posterior to the calcaneus having the appearance of a needle tip. IMPRESSION: 1. Diffuse soft tissue swelling. 2. No acute osseous abnormality or plain film evidence for osteomyelitis. 3. Linear metallic foreign body within the soft tissues posterior to the calcaneus having the appearance of a needle tip.
--- NOTE | 2024-09-10 23:33 | PC.NURSE ---
late entry: 2326 pt refusing staff suggestions regarding bowel elimination methods. Pt made aware of the danger of him getting out of the bed and staff capability of not being able to help him up if he was fall. Pt signs paper for refusal of suggestion.
[2024-09-10 23:35] LABS: Lactic Acid 1.6 mmol/L (0.7-2.1)
--- NOTE | 2024-09-10 23:36 | XR_ITS ---
PROCEDURE INFORMATION: Exam: XR Chest Exam date and time: 09/11/2024 12:01 AM Age: 64 years old Clinical indication: Other: General weakness TECHNIQUE: Imaging protocol: Radiologic exam of the chest. Views: 1 view. COMPARISON: CR XR CHEST PORTABLE 08/07/2024 12:22 PM FINDINGS: Lungs: Unremarkable. No consolidation. Pleural spaces: Unremarkable. No pleural effusion. No pneumothorax. Heart/Mediastinum: Unremarkable. The heart is top-normal to mildly enlarged. Vasculature: Unremarkable. Bones/joints: There is hardware fusion of the thoracic spine. IMPRESSION: No acute findings.
--- NOTE | 2024-09-10 23:36 | ECG_ITS ---
APPROVED REPORT Exam: Resting ECG HR:129 bpm ECG Measurements Heart Rate 129 AXES QRSd 108 QRS 106 QT 294 T 24 QTc 370 Conclusion ATRIAL FIBRILLATION WITH RAPID VENTRICULAR RESPONSE RIGHT AXIS DEVIATION [QRS AXIS > 100] LOW QRS VOLTAGE IN PRECORDIAL LEADS [QRS DEFLECTION < 1.0 mV IN CHEST LEADS] No STEMI Electronically signed by : NICOL NUNEZ, 09/11/2024 03:06:40
[2024-09-10 23:41] LABS: Erythrocyte Sedimentation Rate 66 mm/hr (0-20)
--- NOTE | 2024-09-10 23:59 | PC.NURSE ---
patient refusing to wear monitoring devices including BP cuff, O2 probe, cardiac monitoring
[2024-09-11] VITALS (7 sets, daily range): BP systolic 96–156; BP diastolic 48–89; PULSE 46–108; RESP 17–21; TEMP 36.5–36.9; O2SAT 93–100; BMI 51.9
[2024-09-11] MEDS: HYDROMORPHONE 2MG/ML SYRINGE 1 MG IV ×2 (00:09→04:31)
[2024-09-11] MEDS: ONDANSETRON 4MG/2ML VIAL 4 MG IV ×4 (00:09→22:04)
[2024-09-11 00:17] LABS: NT Pro Brain Natriuretic Pep. 2130 pg/mL (0-125); Troponin I < 0.01 ng/ml (0.00-0.034)
[2024-09-11] MEDS: CEFEPIME HCL 2 GM in 0.9 % SODIUM CHLORIDE 100 ML IV ×2 (01:14→20:01)
--- NOTE | 2024-09-11 01:28 | ED_ITS ---
Discharge Plan Disposition Patient Disposition: Admitted Condition: Fair Clinical Impressions Clinical Impression: Morbid obesity, Chronic wound, Cellulitis, Hypercalcemia, Foreign body of right heel Diabetes mellitus Qualifiers: Diabetes mellitus type: type 2 Diabetes mellitus senior care insulin use: without terminal worker use Diabetes mellitus complication status: with hyperglycemia Q ualified Code(s): E11.65 - Type 2 diabetes mellitus with hyperglycemia Discharge ED Provider: Lucia Tinoco Adult HPI General Chief complaint: Wound/Laceration Stated complaint: weakness, drainage from wound dressing Time Seen by Provider: 09/10/24 23:02 Mode of Arrival: EMS Source of Information: Patient and EMS Description of Symptoms (Recalled from ER Triage Doc. by RN): patient c/o weakness and leg pain. patient has wounds to lower bilateral extremities that he goes to wound care for twice a week. patient has missed two visits. History of Present Illness HPI narrative: 64-year-old male with history of diabetes, obesity, atrial fibrillation, chronic wounds of the bilateral lower extremities, HFpEF presents to the ER with complaints of generalized weakness and leg pain. Patient reports he has missed the last 2 visits with wound care. He and family state that his left leg is looking worse in the last few days again. Patient also reports there was an illness that recently went through the house and he just has not felt good since that time but does not specifically have any complaints other than feeling under the weather. He denies any chest pain or difficulty breathing, no nausea, vomiting, or diarrhea. No dysuria or hematuria. Patient has not had fevers or chills. Patient reports wounds on the left lower extremity are getting deeper and he is having more weeping from the wounds than previous. The toes on the left leg were noted to be purple and he and family states they have been like that for years since his spinal stenosis surgery a few years ago. Related Data Home Medications ?Medication ?Instructions ?Recorded ?Confirmed metoprolol succinate 50 mg 150 mg PO DAILY 07/18/24 tablet,extended release 24 hr ondansetron 4 mg disintegrating 4 mg PO Q8HP PRN nause a and 07/28/24 08/12/24 tablet vomiting paroxetine HCl 20 mg tablet 20 mg PO DAILY 07/30/24 insulin glargine 100 unit/mL (3 60 unit SQ BID 5 mL) subcutaneous pen (Lantus Solostar U-100 Insulin) spironolactone 100 mg tablet 100 mg PO DAILY 09/02/24 09/02/24 Previous Rx's ?Medication ?Instructions ?Recorded aspirin 81 mg tablet,delayed 81 mg PO DAILY 30 days #3 0 tabs 06/21/24 release diltiazem HCl 180 mg 360 mg (2 x 180 mg) PO DAILY 30 06/21/24 capsule,extended release 24 hr days #60 caps pantoprazole 40 mg tablet,delayed 40 mg PO HS 30 days #30 tabs 06/21/24 release bumetanide 2 mg tablet 2 mg PO TID 30 days #90 tabs 08/01/24 insulin lispro 100 unit/mL See Protocol SQ ACHS 30 day s #1.2 08/01/24 subcutaneous solution (Humalog mL U-100 Insulin) tizanidine 4 mg tablet 4 mg PO TID PRN Muscle cramp s 30 08/01/24 days #30 tabs tramadol 50 mg tablet 50 mg PO Q8H PRN pain #15 ta bs 08/12/24 gabapentin 300 mg capsule 900 mg (3 x 300 mg) PO TID 3 0 days 08/26/24 #270 caps Allergies Allergy/AdvReac Type Severity Reaction Status Date / Time hydromorphone (From Dilaudid) AdvReac Vomiting Verified 09/02/24 10:49 morphine AdvReac Vomiting Verified 09/02/24 10:49 [facility] Disclaimer: The information contained in this section may have been updated after the patient was seen, as this information can be updated by other users. 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 Social History Smoking Status: Never smoker alcohol intake: never current occupational status: retired and disabled Travel in the last 8 weeks?: None Have you lived/traveled outside [place] in past 30 days?: No Contact w/someone who lives/traveled outside [place] past 30 days?: No Exposure to someone with infectious disease in past 14 days?: No Do you have a fever (greater than 100.4 F or 38 C)?: No Have you tested positive for COVID-19?: No Exposed to someone with COVID-19 in past 14 days?: No Do you have a sore throat?: No Do you have a cough?: No Do you have any weakness?: Yes Do you have any diarrhea?: No Are you experiencing any unusual bleeding?: No Do you have any muscle aches/pain?: No Do you have any abdominal pain?: No Are you experiencing loss of taste or smell?: No Other Medical History Have you received the Flu Vaccine for this season: No Have you received the Pneumonia Vaccine: No ROS Obtained: Yes Systems reviewed as appropriate & no additional complaints except as documented Per HPI Physical Exam General General appearance: alert, in no apparent distress and obese Comment: Chronically ill-appearing Head Head exam: atraumatic and normocephalic Eye Eye exam: Present PERRL and EOMI ENT ENT exam: Present mucous membranes moist Neck Neck exam: Present normal inspection and full ROM Chest Chest inspection: Present symmetric chest wall rise Respiratory Respiratory exam: Present normal lung sounds bilaterally; Absent respiratory distress, wheezes or stridor Cardiovascular Cardiovascular exam: Present regular rate and irregular rhythm Abdominal Exam Abdominal exam: Present soft; Absent distention or tenderness Extremities Exam Extremities exam: Present full ROM and edema (Significant bilateral lower extremity edema) Expanded Lower Extremity Exam Left: Lower leg exam: Present tenderness, swelling, erythema and other (Extensive chronic wounds from the proximal tibia circumferentially all the way down to the end of the toes. There are deep ulcerating wounds within the chronically ulcerated skin of the left leg and foot) Foot/toe exam: Present amputation (Toe amputation) and other (Toes are purple and cool to the touch but brisk capillary refill, dopplerable DP and PT pulses) Comment: Absent sensation in the left foot but sensation is present proximal to the ankle, patient reports this is baseline; wounds on the left lower extremity are weeping extensively, nonpurulent oozing from the wounds Right: Lower leg exam: Present tenderness, swelling, erythema and other (Oozing erythematous wounds from the proximal tibia circumferentially distally all the way to the ends of the toes with areas of deeper ulceration in the chronically ulcerated skin) Foot/toe exam: Present tenderness (Diffuse, sensation present in the foot), swelling and erythema Comment: Nonpurulent weeping from the wounds, dopplerable DP and PT pulses Neurological Exam Neurological exam: Present alert and oriented X3; Absent motor sensory deficit Psychiatric Psychiatric exam: Present normal affect and normal mood Skin Skin exam: Present warm and dry Medical Decision Making Medical Records Medical records reviewed: Yes I reviewed the patient's medical records. Screening: Per USPSTF and CDC recommendations, given the prevalence of disease in our region, it is our hospital?s policy to screen for HIV and viral Hepatitis for all patients aged 18 and over and those with ongoing risk factors. MR Comment: Wound cultures from July with Proteus mirabilis, Pseudomonas aeruginosa, Klebsiella oxytoca, wound cultures from June with Staph aureus and group B strep. Sensitivities were also reviewed. Madi Inquiry Pt receiving controlled substance: No Vital Signs: 09/10/24 22:47 09/10/24 22:54 09/11/24 00:56 Temperature 98.6 F Temperature Source Oral Pulse Rate 77 70 Pulse Rate [Right] 76 Respiratory Rate 20 Blood Pressure 158/75 H Blood Pressure [Left Arm] 158/75 H Blood Pressure Mean [Left Arm] 102 Blood Pressure Source Blood Pressure Source [Left Arm] Automatic Cuff Blood Pressure Position Blood Pressure Position [Left Arm] Supine 02 Sat by Pulse Oximetry 100 100 99 Oxygen Delivery Method 09/11/24 02:22 Temperature 97.9 F Temperature Source Oral Pulse Rate 70 Pulse Rate [Right] Respiratory Rate 20 Blood Pressure 156/78 H Blood Pressure [Left Arm] Blood Pressure Mean [Left Arm] Blood Pressure Source Automatic Cuff Blood Pressure Source [Left Arm] Blood Pressure Position Supine Blood Pressure Position [Left Arm] 02 Sat by Pulse Oximetry Oxygen Delivery Method Room Air Lab Data Lab Results 09/10/24 22:51: WBC 12.0 H, RBC 4.28 L, Hgb 9.5 L, Hct 31.4 L, MCV 73.4 L, MCH 22.2 L, MCHC 30.3 L, RDW 16.6, Plt Count 578 H, MPV 8.7, Neut % (Auto) 72.0, Lymph % (Auto) 16.2, [place] % (Auto) 7.1, Eos % (Auto) 2.7, Baso % (Auto) 0.5, N eut # (Auto) 8.7 H, Lymph # (Auto) 2.0, [place] # (Auto) 0.9, Eos # (Auto) 0.3, Baso # (Auto) 0.1, ESR 66 H, PT 11.7, INR 1.06, Sodium 131 L, Potassium 4.8, Chloride 100, Carbon Dioxide 26, Anion Gap 9.8, BUN 58 H, Creatinine 1.80 H, Estimated Creat Clear 50, Estimated GFR 38 L, Est GFR ( Amer) 46 L, G lucose 380 H, Lactate 1.6, Calcium 12.2 H*, Total Bilirubin 0.3, AST 15 L, ALT 14, Alkaline Phosphatase 191 H, Troponin I < 0.01, C-Reactive Protein 100.1 H, N T-Pro-B Natriuret Pep 2130 H, Total Protein 7.4, Albumin 3.7, Globulin 3.7 H, A lbumin/Globulin Ratio 1.0 L 09/10/24 22:51 09/10/24 22:51 Orders (Tests/Meds): ED MEDICATIONS Generic Name Dose Route Start Last Admin Trade Name Freq PRN Reason Stop Dose Admin Acetaminophen 650 mg 09/11/24 02:00 Acetaminophen 325mg Tab PO 10/11/24 01:59 Q4HP PRN Fever or Mild Pain (1-3) Enoxaparin Sodium 40 mg 09/11/24 09:00 Enoxaparin 40mg/0.4ml Syringe SUBCUT 10/11/24 08:59 DAILY JESSICA Ondansetron HCl 4 mg 09/11/24 02:00 Ondansetron 4mg/2ml Vial IV 10/11/24 01:59 Q8HP PRN Nausea Pantoprazole Sodium 40 mg 09/11/24 21:00 Pantoprazole 40mg Tablet PO 10/11/24 20:59 HS JESSICA Discontinued Medications Generic Name Dose Route Start Last Admin Trade Name Freq PRN Reason Stop Dose Admin Hydromorphone HCl 1 mg 09/11/24 00:01 09/11/24 00:09 Hydromorphone 2mg/Ml Syringe IV 09/11/24 00:02 1 mg ONCE ONE Administration Cefepime HCl 2 gm/ Sodium 100 mls @ 200 mls/hr 09/11/24 00:46 09/11/24 01:14 Chloride IV 09/11/24 01:15 200 mls/hr ONCE ONE Administration Sodium Chloride 500 mls @ 500 mls/hr 09/11/24 01:45 09/11/24 01:51 Sod Chlor 0.9% 1000ml Bag IV 10/11/24 01:44 500 mls/hr .Q1H JESSICA Administration Ondansetron HCl 4 mg 09/11/24 00:01 09/11/24 00:09 Ondansetron 4mg/2ml Vial IV 09/11/24 00:02 4 mg ONCE ONE Administration ORDERS Category Date Time Status CXR --portable [XR chest portable] Stat Exams 09/10/24 23:36 Completed Foot XR left minimum 3 views [XR foot LT min 3V] Stat Exams 09/10/24 23:32 Completed Tibia/fibula XR left 2 views [XR tibia fibula LT 2V] Exams 09/10/24 23:32 Completed Stat Tibia/fibula XR right 2 views [XR tibia fibula RT 2V] Exams 09/10/24 23:32 Completed Stat XR foot RT min 3V Stat Exams 09/10/24 23:32 Completed BNP [NT Pro Brain Natriuretic Pep.] Stat Lab 09/10/24 22:51 Completed CBC w/Auto Diff [Complete Blood Count Auto Diff] Stat Lab 09/10/24 22:51 Completed CMP [Comprehensive Metabolic Panel] Stat Lab 09/10/24 22:51 Completed CRP [C-Reactive Protein] Stat Lab 09/10/24 22:51 Completed ESR [Erythrocyte Sedimentation Rate] Stat Lab 09/10/24 22:51 Completed Hemoglobin A1C Stat Lab 09/11/24 02:10 Received Lactic Acid Stat Lab 09/10/24 22:51 Completed PT INR [Prothrombin Time INR] Stat Lab 09/10/24 22:51 Completed Trop I [Troponin I] Stat Lab 09/10/24 22:51 Completed Troponin I Q3H Lab 09/11/24 05:45 Ordered Blood Culture Stat Micro 09/11/24 00:38 Received Wound Culture and Gram Stain Stat Micro 09/11/24 01:58 Received ECG Request Stat Y 09/10/24 23:36 Ordered Medical Decision Narrative: In summary, this 64-year-old male with comorbidities described in the HPI which are not at goal therapy presents to the emergency department today with generalized weakness, worsening leg wounds. On initial evaluation patient is in atrial fibrillation which is a previously known problem but is hemodynamically stable, afebrile, patient has extensive bilateral lower extremity wounds with areas of deeper ulceration and chronically ulcerated skin, oozing nonpurulent material, malodorous, dopplerable DP and PT pulses bilaterally despite the distal left lower extremity being discolored purple and cool to the touch but brisk capillary refill is present, decreased sensation in the distal left lower extremity reportedly at baseline according to patient and family, patient is chronically ill-appearing. Differential diagnosis includes but is not limited to chronic wounds, poorly controlled diabetes, considered cellulitis or abscess but there is no specific area of fluctuance, cellulitis more likely than abscess, also considered fluid overload, have low suspicion for ACS, higher suspicion for electrolyte abnormality, kidney dysfunction, osteomyelitis, failure to thrive, I considered the possibility of NSTI but have extremely low suspicion for this given the chronicity of wounds and no pain out of proportion of exam, among others. Based on these concerns, I ordered serum labs, cardiac workup, x-ray imaging. ECG personally interpreted demonstrates A-fib with RVR rate 129, right axis deviation, normal QTc, no STEMI. 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 No intervention for A-fib at this time. Patient received Dilaudid, Zofran initially for treatment. Labs personally reviewed are notable for leukocytosis though slightly improved from prior, inflammatory markers increased including CRP now over 100, patient also has kidney dysfunction with creatinine up to 1.8 from 1.2 previously, significantly hypercalcemic with calcium 12.2. EKG does not demonstrate hypercalcemic changes. Patient has elevated BNP and a history of HFpEF with peripheral edema but I did start him on a small amount of normal saline for hypercalcemia. With the findings in his legs and his increasing inflammatory markers, I will treat the patient for suspected infection of the bilateral lower extremities. Based on his most recent cultures and sensitivities I believe cefepime is the best choice. I discussed this with the on-call pharmacist Parish ledbetter. He agrees with cefepime and provided recommendation for 2 g IV every 8 hours. Cefepime initiated. XR personally interpreted demonstrates no acute intrathoracic abnormality, x- rays of the bilateral lower extremities demonstrate soft tissue swelling but I do not appreciate evidence of osteomyelitis. There is a radiopaque foreign body in the right heel, patient has no known history of this but there is no wound that appears to be associated with it and we do not know when this foreign body may have entered the foot. Given his extensive history of diabetes and infections, I am not going to attempt to remove this foreign body at this time. Since patient will require admission for management of his wounds and hypercalcemia I will recommend to the hospitalist that podiatry evaluate him when he is admitted. See radiology read for full interpretation. Patient has been belligerent with staff, at 1 point he threatened to leave AGAINST MEDICAL ADVICE and go to [facility]. I informed him he has that right since he does have capacity to make this decision, however when he asked if he would be admitted and I confirmed that he would be, he was agreeable to stay. I discussed with him the reasons for admission. He is agreeable. Pain has been controlled by the medications that were administered earlier. I discussed this case with the hospitalist including patient's presentation, his history, cultures and antibiotic choice, and hypercalcemia. I recommended that podiatry evaluate the patient for his wounds and for the foreign body in the right heel. Hospitalist agrees with this thoughts. Patient was accepted for admission and admitted in stable condition. Critical Care Critical Care Time Critical Care Time: No
[2024-09-11] MEDS: 0.9 % SODIUM CHLORIDE 1000ML 500 ML IV (01:51)
--- NOTE | 2024-09-11 02:13 | PC.NURSE ---
Attempted to call and give report to jas perea. States she is unable to take report at this time.
--- NOTE | 2024-09-11 02:21 | PC.NURSE ---
Report given to KARTHIK perea med/surg
--- NOTE | 2024-09-11 03:20 | P.HP_ITS ---
<Statement entered by Cullen Wu MD - 09/11/24 18:16> Rounded on patient after nurse practitioner. Personally examined and interviewed patient. Agree with exam findings and care plan as documented. History of Present Illness *Admission Date: 09/11/24 *Reason for visit:: Cellulitis secondary to peripheral edema and diabetes melitis, new hypercal *History of present illness: Mr. Vegas is an extremely obese male with approximately 400 pound, he has had diabetes for quite some time and has been going to a wound center for significant peripheral vascular disease diabetic lower extremities and feet., There has been some upper respiratory illnesses in the family and he has ended up missing the last 2 wound appointments. Redness and drainage of the lower extremities bilaterally has increased., During workup in the ER secondary to the cellulitis found that there was new onset of hypercalcemia that was never noted in his past record. Also noting that there is a foreign body possibly metal located in the posterior right heel. With the patient sitting in a wheelchair noting that both legs are weeping some bloody discharge that the toes are blue. ER provider noted though that there was positive pulses to both lower extremities The patient he has not had any fever he has had no nausea or vomiting bowel and bladder habits have remained the same. Per the patient's and also family history he has had blue toes for quite some time. Also chronic atrial fibs [facility] Disclaimer: The information contained in this section may have been updated after the patient was seen, as this information can be updated by other users. 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 Social History (Updated 09/11/24 @ 04:11 by Johnna Baltazar RN) Smoking Status: Smoker, status unknown alcohol intake: never current occupational status: retired and disabled Travel in the last 8 weeks?: None Have you lived/traveled outside US in past 30 days?: No Contact w/someone who lives/traveled outside US past 30 days?: No Exposure to someone with infectious disease in past 14 days?: No Do you have a fever (greater than 100.4 F or 38 C)?: No Have you tested positive for COVID-19?: No Exposed to someone with COVID-19 in past 14 days?: No Do you have a sore throat?: No Do you have a cough?: No Do you have any weakness?: Yes Do you have any diarrhea?: No Are you experiencing any unusual bleeding?: No Do you have any muscle aches/pain?: No Do you have any abdominal pain?: No Are you experiencing loss of taste or smell?: No Other Medical History Have you received the Flu Vaccine for this season: No Have you received the Pneumonia Vaccine: No Review of Systems Review of Systems Review of systems:: pertinent systems reviewed and negative unless documented below Constitutional Constitutional: Reports as per HPI Comments: Denies fever Eyes Eyes: Reports as per HPI Comments: Denies changes in vision ENT Ears, Nose, Mouth, and Throat: Reports as per HPI *Cardiovascular Cardiovascular: Reports as per HPI and Reports rapid heart rate Comments: Chronic atrial fibs *Respiratory Comments: Patient reports he feels good as far as his breathing he is never smoked *Genitourinary Genitourinary: Reports as per HPI *Musculoskeletal Musculoskeletal: Reports as per HPI Comments: Decreased sensation to both lower extremities *Neurologic Neurologic: Reports as per HPI Comments: Patient has great difficulty walking related to size and peripheral or vascular and neurologic deficit Psychiatric Comments: The patient is very nice he is able to tell you what he wants a little demanding at times, but he is able to tell you what equipment works the best for him for his body habitus Endocrine Endocrine: Reports as per HPI Hematologic/Lymphatic Hematologic/Lymphatic: Reports as per HPI Allergic/Immunologic Allergic/Immunologic: Reports as per HPI Meds Home Medications and Allergies Home Medications ?Medication ?Instructions ?Recorded ?Confirmed ?Type aspirin 81 mg tablet,delayed 81 mg PO DAILY 30 days #3 0 tabs 06/21/24 09/11/24 Rx release diltiazem HCl 180 mg 360 mg (2 x 180 mg) PO DAILY 30 06/21/24 09/11/24 Rx capsule,extended release 24 hr days #60 caps pantoprazole 40 mg tablet,delayed 40 mg PO HS 30 days #30 tabs 06/21/24 09/11/24 Rx release metoprolol succinate 50 mg 150 mg PO DAILY 07/18/24 History tablet,extended release 24 hr ondansetron 4 mg disintegrating 4 mg PO Q8HP PRN nause a and 07/28/24 09/11/24 History tablet vomiting paroxetine HCl 20 mg tablet 20 mg PO DAILY 07/30/24 History bumetanide 2 mg tablet 2 mg PO TID 30 days #90 tabs 08/01/24 09/11/24 Rx insulin lispro 100 unit/mL See Protocol SQ ACHS 30 day s #1.2 08/01/24 09/11/24 Rx subcutaneous solution (Humalog mL U-100 Insulin) tizanidine 4 mg tablet 4 mg PO TID PRN Muscle cramp s 30 08/01/24 09/11/24 Rx days #30 tabs tramadol 50 mg tablet 50 mg PO Q8H PRN pain #15 ta bs 08/12/24 09/11/24 Rx gabapentin 300 mg capsule 900 mg (3 x 300 mg) PO TID 3 0 days 08/26/24 09/11/24 Rx #270 caps insulin glargine 100 unit/mL (3 60 unit SQ BID 5 09/11/24 History mL) subcutaneous pen (Lantus Solostar U-100 Insulin) spironolactone 100 mg tablet 100 mg PO DAILY 09/02/24 09/11/24 History New Prescriptions to Start Prescriptions: Allergies Allergy/AdvReac Type Severity Reaction Status Date / Time hydromorphone (From Dilaudid) AdvReac Vomiting Verified 09/02/24 10:49 morphine AdvReac Vomiting Verified 09/02/24 10:49 Exam Data for Last 24 hours Vital signs and Labs for Last 24 Hours: Temp Pulse Resp BP Pulse Ox O2 Del Method 97.9 F 70 20 156/78 H 99 Room Air 09/11/24 02:22 09/11/24 02:22 09/11/24 02:22 09/11/24 02:22 09/11/24 00:56 09/11/24 02:22 Laboratory Results - last 24 hr 09/10/24 22:51: WBC 12.0 H, RBC 4.28 L, Hgb 9.5 L, Hct 31.4 L, MCV 73.4 L, MCH 22.2 L, MCHC 30.3 L, RDW 16.6, Plt Count 578 H, MPV 8.7, Neut % (Auto) 72.0, Lymph % (Auto) 16.2, Green % (Auto) 7.1, Eos % (Auto) 2.7, Baso % (Auto) 0.5, Neut # (Auto) 8.7 H, Lymph # (Auto) 2.0, Green # (Auto) 0.9, Eos # (Auto) 0.3, Baso # (Auto) 0.1, ESR 66 H, PT 11.7, INR 1.06, Sodium 131 L, Potassium 4.8, Chloride 100, Carbon Dioxide 26, Anion Gap 9.8, BUN 58 H, Creatinine 1.80 H, Estimated Creat Clear 50, Estimated GFR 38 L, Est GFR ( Amer) 46 L, Glucose 380 H, Lactate 1.6, Calcium 12.2 H*, Total Bilirubin 0.3, AST 15 L, ALT 14, Alkaline Phosphatase 191 H, Troponin I < 0.01, C-Reactive Protein 100.1 H, NT-Pro-B Natriuret Pep 2130 H, Total Protein 7.4, Albumin 3.7, Globulin 3.7 H, Albumin/Globulin Ratio 1.0 L I & O for Last 24 hours: Intake & Output 09/08/24 09/09/24 09/10/24 09/11/24 05:59 05:59 05:59 05:59 Weight 400 lb Microbiology Reports for the Last 24 Hours: Not from the last 24 hours but last culture showed Proteus Klebsiella and Pseudomonas the leg wound, presently cultures have been sent from the ER Radiology Reports for the Last 24 Hours: Possible tip of a needle in the right posterior heel Constitutional Constitutional: mild distress, morbidly obese, chronically ill appearing and cooperative Comments: Average weight 400 pounds, noting that the patient is actually pale he says he never gets outside in the sun *Routine HEENT Exam Head: Present atraumatic Eye: Present EOMI and PERRL ENT: Present mucous membranes moist, nares patent and external ear normal *Routine Neck Exam Neck: Present supple *Routine Respiratory Exam Respiratory: Present decreased breath sounds, CTA bilaterally, diminished air movement, normal respiratory effort, able to speak in complete sentences and symmetric chest movement Comments: Patient has a very large chest did not hear really any abnormal sounds but difficult to assess due to the size *Routine Cardiovascular Exam Cardiovascular: Present tachycardia Comments: As noted the patient's been in chronic A-fib rate usually around the 120s he is on medication for the *Routine Abdominal Exam Abdominal: Present soft Comments: Patient's abdomen exam showed no significant pain to palpation very large abdomen unable to assess for any organomegaly related to his body habitus *Routine Rectal Exam Rectal:: deferred *Routine Genitalia Exam Genitalia:: deferred Comment:: Patient was in a wheelchair he is wearing a pair of shorts due to this and his size and the ability to stand unable to fully assess buttocks and groin area. Orders have been placed for the nursing communication order to let me know after patient is in bed he would be able to be assessed for any skin breakdown in the REGAN area *Routine Extremities Exam Extremities: Present edema Comments: Both lower extremities starting just below the knee has redness with significant peripheral diabetic dermatitis with breakdown of the skin weeping some bleeding, skin remaining relatively pink until entering into the midfoot where there is continuous cyanosis to most of the toes bilaterally to both legs. Left a little worse than the right. As noted missing several toes due to amputation Routine Back/Spine/Pelvis Exam Back/Spine: Present full ROM Comments: Did not stand the patient but he sitting up in a wheelchair he is able to move uses his upper extremities well stated that he was not having any back pain sitting in the chair but standing would be extremely difficult *Routine Skin Exam Skin: Present erythema, petechiae, lesions and wounds Comments: Description of both lower extremities and feet there is cyanosis in the feet there is anywhere from clear to bloody drainage from several different areas of the lower extremity above the ankle to just below the knee., Legs are fairly hard to touch there is really no pitting but the legs are actually extremely edematous *Routine Neurological Exam Neurological: Present alert, oriented X3, CN II-XII intact, abnormal gait and normal speech Comments: Patient shows no weakness to either side no acute sign of any cerebral vascular accident. But it definitely decreased to sensation to both lower extremities secondary to significant diabetes that is poorly controlled Routine Psychiatric Exam Psychiatric: Present normal affect, normal thought process, cooperative, good insight and good judgment Comments: Patient is able to express all of his needs clearly., Very clear and what he is needing to help him take care of himself such as what equipment bariatric bed bariatric bedside commode and also a bariatric recliner. Patient prefers to sit up in the recliner when sleeping H&P: Result Impressions 1. Chronic A-fib, with congestive heart failure and significant peripheral vascular disease 2. Slowly worsening kidney function since July of this year with decreased GFR and increased creatinine 3. Lower leg edema with diabetic neuropathy and cellulitis. With significant cyanosis to toes of both feet Imaging and Cardiology Foot: Status: image reviewed by me Additional comments: Small metal object posterior right heel question tip of needle Assessment and Plan *Assessment and plan (1) Acute on chronic heart failure with preserved ejection fraction (HFpEF): Status: Acute Category: Medical Code(s): I50.33 - Acute on chronic diastolic (congestive) heart failure (2) Venous stasis ulcer of both lower extremities without varicose veins: Status: Acute Category: Medical Code(s): I87.2 - Venous insufficiency (chronic) (peripheral); L97.919 - Non-pressure chr onic ulcer of unspecified part of right lower leg with unspecified severity; L97.929 - Non-pressure chronic ulcer of unspecified part of left lower leg with unspecified severity (3) Peripheral vascular disease: Status: Acute Category: Medical Code(s): I73.9 - Peripheral vascular disease, unspecified (4) Cellulitis: Status: Acute Qualifiers: Laterality: unspecified laterality Site of cellulitis: extremity Site of cellulitis of extremity: lower extremity Qualified Code(s): L03.119 - Cellulitis of unspecified part of limb Category: Medical Code(s): L03.90 - Cellulitis, unspecified (5) Hypercalcemia: Status: Acute Category: Medical Code(s): E83.52 - Hypercalcemia (6) Chronic wound: Status: Acute Category: Medical Code(s): T14.8XXA - Other injury of unspecified body region, initial encounter (7) Bilateral edema of lower extremity: Status: Acute Category: Medical Code(s): R60.0 - Localized edema (8) Atrial fibrillation with RVR: Status: Acute Category: Medical Code(s): I48.91 - Unspecified atrial fibrillation (9) Morbid obesity: Status: Acute Category: Medical Code(s): E66.01 - Morbid (severe) obesity due to excess calories (10) Diabetic neuropathy: Status: Acute Qualifiers: Diabetes mellitus complication detail: diabetic polyneuropathy Diabetes mellitus type: type 2 Qualified Code(s): E11.42 - Type 2 diabetes mellitus with diabetic polyneuropathy Category: Medical Code(s): E11.40 - Type 2 diabetes mellitus with diabetic neuropathy, unspecified (11) Morbid obesity with BMI of 50.0-59.9, adult: Status: Acute Category: Medical Code(s): E66.01 - Morbid (severe) obesity due to excess calories; Z68.43 - Body mass index [BMI] 50.0-59.9, adult (12) Volume overload: Status: Acute Qualifiers: Hypervolemia type: unspecified Qualified Code(s): E87.70 - Fluid overload, unspecified Category: Medical Code(s): E87.70 - Fluid overload, unspecified (13) Microcytic anemia: Status: Acute Category: Medical Code(s): D50.9 - Iron deficiency anemia, unspecified (14) Adult failure to thrive: Status: Acute Category: Medical Code(s): R62.7 - Adult failure to thrive (15) LORI (obstructive sleep apnea): Status: Acute Category: Medical Code(s): G47.33 - Obstructive sleep apnea (adult) (pediatric) (16) Diabetes mellitus: Status: Acute Qualifiers: Diabetes mellitus type: type 2 Diabetes mellitus longterm insulin use: without 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 wall shear 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 use Diabetes mellitus complication status: with hyperglycemia Qualified Code(s): E11.65 - Type 2 diabetes mellitus with hyperglycemia Category: Medical Code(s): E11.9 - Type 2 diabetes mellitus without complications (17) Sacral wound: Status: Acute Qualifiers: Encounter type: initial encounter Qualified Code(s): S31.000A - Unspecified open wound of lower back and pelvis without penetration into retroperitoneum, initial encounter Category: Medical Code(s): S31.000A - Unspecified open wound of lower back and pelvis without penetration into retroperitoneum, initial encounter Plan Bebeto Christiansen is a 64-year-old male with morbid obesity, acute on chronic HFpEF, volume overload, lower extremity erythema, stasis ulcerations. Presented with worsening cellulitis and drainage of his legs. Discussed case with ER sanjana varghese, request admission for antibiotics and further management. Medicine agreed to admit for further care. Initiating aggressive diuresis. Initiated on Bumex drip. Podiatry evaluate in the morning. Necessitating inpatient care. Problems addressed as follows: Acute on Chronic HFpEF Anasarca Atrial fibrillation Hypertension - Heart rate appears controlled at this time. Appears frankly volume o verloaded. BNP 2000 ? Initiate Bumex drip 1 mg/h. BUN 55, creatinine 1.4. - Continue spironolactone 50 mg daily. Monitor hyperkalemia. Potassium 5.4 this morning. - Continue metoprolol succinate 150 mg daily and diltiazem 360 mg daily - Eliquis 5 mg twice daily. - Continue aspirin 81 mg daily for PAD. - Echo obtained within the past 2 months with severe diastolic dysfunction but preserved ejection fraction ?Repeat CBC, CMP, magnesium ordered for the morning. ? Fluid restriction 1800. #Hyperkalemia ? spironolactone to 50 mg daily. Potassium 5.4, will consider Kayexalate if potassium continues to elevate. Diabetes: - A1c worsening at 10.5. States he has been compliant. States he is taking 60 units twice a day of Lantus, was on 70 twice daily last admission. Will increase to 75 units twice daily given hyperglycemia and worsening A1c. - Continue sliding scale insulin +10 units ACHS. -Diabetic diet of 1500 jone -Holding Jardiance due to risk for Marilin's gangrene given groin wounds and retracted penis Stasis erythema/edema Leg pain - Wound care consulted to assist with management of ulcerations on legs. - Continue dry dressing on wounds - tizanidine for leg cramping 2mg TID - Continue tramadol 50 mg every 6 hours for pain Microcytic anemia: Hemoglobin 9.1. Platelets 500, likely reactive. Previous iron studies showed low levels. Transfusion threshold hemoglobin less than 7. Administer 1 dose Venofer in the morning LORI: Consider oxygen at night versus CPAP after discussion with patient about his home regimen. On room air at this time; goal sats greater 90% Morbid obesity complicates all aspects of his care. Wound care consulted to assist with legs and stasis ulcers, refer to outpt wound care after DC Full code eliquis 5mg BID Diabetic diet
[2024-09-11 03:29] LABS: Hemoglobin A1C 10.5 % (4.0-6.0)
[2024-09-11 06:26] LABS: POC Glucose,Bedside 307 (70-110)
[2024-09-11 06:38] LABS: Troponin I 0.01 ng/ml (0.00-0.034)
--- NOTE | 2024-09-11 07:35 | PC.NURSE ---
Pt. was admitted overnight with chronic wounds to BLE, BLE with open weeping wounds. Pt. is alert and orientated x 4. Pt. is on room air. C/O pain to BLE. medicated for pain. this RN spent over and hour cleaning and dressing BLE 's. LLE worse than the right. all skin is sloughing off from knee to foot.BLE oozing serrous fluid. After cleaning with wound cleanser, gauze and water. patting dry. Gauze soaked in sterile saline applied to BLE, ABD pads placed next, wrapped in Kerlix and coban. Per patient this is what his sister does at home. Pt. also has wounds to his buttocks. Pt. to weak to stand for long to inspect wounds, sacral foam pad applied to area of concern. Pt. does not roll side to side. Personal items and call wynne in reach.
[2024-09-11 08:07] LABS: Basophils # 0.1 K/mm3 (0-0.2); Basophils % 0.5 % (0.1-2.0); Eosinophils # 0.3 Kmm3 (0.0-0.4); Hematocrit 29.8 % (42.0-52.0); Hemoglobin 9.1 g/dL (14.1-18.0); Immature Granulocytes # 0.17 10^3uL; Immature Granulocytes % 1.3 %; Lymphocytes # 1.6 K/mm3 (0.7-4.5); Lymphocytes % 11.9 % (10-50); Mean Corpuscular HGB Conc 30.5 g/dL (31.8-35.4); Mean Corpuscular Hemoglobin 22.6 pg (27.0-31.2); Mean Corpuscular Volume 74.1 fl (80-94); Mean Platelet Volume 9.1 fl (7.4-10.4); Monocytes % 7.3 % (1.7-9.3); Neutrophils # 10.2 K/mm3 (1.8-7.8); Nucleated Red Blood Cells # 0.02 10^3/uL; Nucleated Red Blood Cells % 0.2 %; Platelet Count 500 K/mm3 (142-424); Red Blood Count 4.02 M/mm3 (4.60-6.20); Red Cell Distribution Width 16.4 % (11.5-17.5); Red Cell Distribution Width-SD 44.2 fL; White Blood Count 13.2 K/mm3 (4.8-10.8)
[2024-09-11 08:14] LABS: Chloride 107 mmol/L (98-107)
[2024-09-11 08:15] LABS: Potassium 5.4 mmoL/L (3.5-5.1); Sodium 132 mmol/L (136-145)
[2024-09-11 08:17] LABS: Anion Gap 11.4 mEq/L (5-15); Blood Urea Nitrogen 55 mg/dl (9-20); Carbon Dioxide 19 mmol/L (22.0-30.0); Creatinine Clearance Estimated 65 mL/min (50-200); Estimated Glomerular Filt Rate 51 ml/min (>60); GFR (African American) 62 ML/MIN (>60)
[2024-09-11 08:18] LABS: Alanine Aminotransferase 13 U/L (12-78); Alkaline Phosphatase 167 U/L (38-126); Aspartate Amino Transferase 14 U/L (17-59); Bilirubin,Total 0.2 mg/dl (0.2-1.3); Calcium 11.5 mg/dl (8.4-10.2); Glucose 330 mg/dl (74-100); Magnesium 1.9 mg/dl (1.6-2.3)
[2024-09-11] MEDS: GABAPENTIN 300MG CAPSULE 900 MG PO ×3 (09:29→20:00)
[2024-09-11] MEDS: TIZANIDINE 4MG TABLET 4 MG PO (09:29)
[2024-09-11] MEDS: PARoxetine 20MG TABLET 20 MG PO (09:30)
[2024-09-11] MEDS: dilTIAZem HCL 180MG CAP.ER.24H 360 MG PO (09:30)
[2024-09-11] MEDS: BUMETANIDE 10 MG in 0.9 % SODIUM CHLORIDE 60 ML IV ×2 (09:30→15:41)
[2024-09-11] MEDS: ASPIRIN EC 81MG TABLET 81 MG PO (09:30)
[2024-09-11] MEDS: ENOXAPARIN 40MG/0.4ML SYRINGE 40 MG SUBCUT (09:30)
[2024-09-11] MEDS: METOPROLOL SUCCINATE XL 50MG TABLET 150 MG PO (09:31)
[2024-09-11] MEDS: SPIRONOLACTONE 25MG TABLET 100 MG PO (09:31)
[2024-09-11] MEDS: INSULIN GLARGINE 100 UNITS/ML 3ML FLEXPEN 60 UNIT SUBCUT (09:32)
[2024-09-11] MEDS: TRAMADOL 50MG TABLET 100 MG PO ×3 (09:59→22:10)
[2024-09-11 10:08] LABS: POC Glucose,Bedside 357 (70-110)
[2024-09-11] MEDS: humaLOG 100 UNITS/ML 10ML VIAL (SSI) SUBCUT ×3 (10:08→20:13)
[2024-09-11] MEDS: humaLOG 100 UNITS/ML 10ML VIAL (SSI) 10 UNIT SUBCUT ×2 (10:09→15:20)
--- NOTE | 2024-09-11 11:25 | [facility].PTEV ---
Physical Therapy Evaluation Rehab PT IP Evaluation Start: 09/11/24 02:00 Freq: ONCE Status: Active Protocol: Document 09/11/24 11:19 ROSA (Rec: 09/11/24 11:24 ROSA [id number]) Subjective/History History History Per H&P: Mr. Vegas is an extremely obese male with approximately 400 pound, he has had diabetes for quite some time and has been going to a wound center for significant peripheral vascular disease diabetic lower extremities and feet., There has been some upper respiratory illnesses in the family and he has ended up missing the last 2 wound appointments. Redness and drainage of the lower extremities bilaterally has increased., During workup in the ER secondary to the cellulitis found that there was new onset of hypercalcemia that was never noted in his past record. Also noting that there is a foreign body possibly metal located in the posterior right heel. With the patient sitting in a wheelchair noting that both legs are weeping some bloody discharge that the toes are blue. ER provider noted though that there was positive pulses to both lower extremities The patient he has not had any fever he has had no nausea or vomiting bowel and bladder habits have remained the same. Per the patient's and also family history he has had blue toes for quite some time. Also chronic atrial fibs Subjective Subjective Pt reports he lives with his sister in a 3 story home ( pt stays on ground floor). Pt reports he is IND with mobility using a RW. Pt reports his sister is able to assist as needed. Pt reports he is weaker. Pt sleeps in a lift chair. [facility] How much help from another person do you currently need... Turning from your A lot back to your side while in a flat bed without using bedrails? Moving from lying on A lot back to sitting on the side of a flat bed without using bedrails? Moving to and from a A little bed to a chair ( including a wheelchair)? Standing up from a A little chair using your arms? (e.g., wheelchair, bedside chair) Walking in hospital A lot room? Climbing 3-5 steps A lot with a railing? Mobility Score 14 Mobility Level [facility] Mobility 4 Move to chair/commode Mobility Calculator Rehab PT IP Eval Objective Appearance Patient Behavior Appropriate,Cooperative Patient Orientation Person Difficulty following none instructions Speech Pattern Clear Ambulation Patient Able to No Ambulate Ambulation Observation IP General Gait Wide Based Gait Pattern Observation Ambulation Distance 1 (feet) Ambulation Assistive Rolling Walker Device Ambulation Ability Supervision/Stand by Balance Ability to Arise Able, uses arms to help Sitting Balance Steady, safe Standing Balance Steady, wide stance Dynamic Sitting Good Balance Ability Dynamic Standing Fair Balance Ability Transfers Chair Transfer Contact Guard/Hand Hold Ability Sit to Stand Bed Contact Guard/Hand Hold Transfer Ability Rehab PT IP prob,goals,plan Problems Date of Evaluation: 09/11/24 PT IP Problems Bed Mobility,Transfers,Gait,Balance,Self care,Safety Rehab Potential Rehab Potential Good Plan PT Intervention Plan Bed Mobility,Transfers,Gait,Balance,Self care,Safety, Therapeutic Exercise Other Intervention 1-2 times Plan PT Plan Frequency Daily Duration LOS Discharge Goals Bed Transfer Ability Maximum x 1 (75% assist) Sit to Stand Chair Independent Transfer Ability Ambulation Distance 10 (feet) Discharge Plan PT Discharge Plan Pt presents below baseline in strength, transfers, and gait. Pt with poor ambulation and standing endurance. Pt required elevated EOB to be able to perform a stand. PT recommending short term rehabilitation stay upon d/c d/t current level of mobility. Pt would benefit from skilled acute care PT while at [facility] to address mobility deficits and prevent further functional decline. Eval Complexity Eval Charge Codes 82280 - Moderate Complexity PHYSICIAN CERTIFICATION: I certify the specified therapy services for Bebeto Christiansen are required, authorized, and reviewed every 30 days.
--- NOTE | 2024-09-11 15:02 | PC.NURSE ---
Aox 4, up with assistance times 2, fsbg, purewick in place on bumex gtt, on RA, 20g r ac, on lovenox, consult to cm, diabetic diet, pain meds given once.
[2024-09-11 15:23] LABS: POC Glucose,Bedside 252 (70-110)
[2024-09-11] MEDS: BUMETANIDE 1MG/4ML VIAL 2 MG IV (15:34)
[2024-09-11] MEDS: PANTOPRAZOLE 40MG TABLET 40 MG PO (20:00)
[2024-09-11] MEDS: INSULIN GLARGINE 100 UNITS/ML 3ML FLEXPEN 75 UNIT SUBCUT (20:13)
[2024-09-11 20:24] LABS: POC Glucose,Bedside 202 (70-110)
[2024-09-12] VITALS (11 sets, daily range): BP systolic 78–115; BP diastolic 32–71; PULSE 34–76; RESP 11–19; TEMP 36.4–36.8; O2SAT 91–100; BMI 51.7
[2024-09-12] MEDS: CEFEPIME HCL 2 GM in 0.9 % SODIUM CHLORIDE 100 ML IV ×2 (01:31→16:24)
[2024-09-12] MEDS: BUMETANIDE 10 MG in 0.9 % SODIUM CHLORIDE 60 ML IV (02:17)
--- NOTE | 2024-09-12 03:27 | PC.NURSE ---
Pt AOx4. Receiving bumex drip at 10mL/hr. Received pain meds and nausea meds prn earlier this shift. Purewick in place. Resting in bed with eyes closed. Respirations even and unlabored on room air. Bed is low, locked, and call light is in reach.
[2024-09-12] MEDS: TIZANIDINE 4MG TABLET 4 MG PO (05:02)
[2024-09-12] MEDS: TRAMADOL 50MG TABLET 100 MG PO ×2 (05:02→10:15)
[2024-09-12] MEDS: humaLOG 100 UNITS/ML 10ML VIAL (SSI) SUBCUT ×4 (05:10→21:33)
[2024-09-12] MEDS: humaLOG 100 UNITS/ML 10ML VIAL (SSI) 15 UNIT SUBCUT ×3 (05:10→16:55)
[2024-09-12 05:12] LABS: POC Glucose,Bedside 205 (70-110)
[2024-09-12 07:20] LABS: Basophils # 0.1 K/mm3 (0-0.2); Basophils % 0.4 % (0.1-2.0); Eosinophils # 0.1 Kmm3 (0.0-0.4); Hematocrit 26.7 % (42.0-52.0); Hemoglobin 8.1 g/dL (14.1-18.0); Immature Granulocytes # 0.28 10^3uL; Immature Granulocytes % 2.3 %; Lymphocytes % 16.2 % (10-50); Mean Corpuscular HGB Conc 30.3 g/dL (31.8-35.4); Mean Corpuscular Hemoglobin 22.4 pg (27.0-31.2); Mean Corpuscular Volume 73.8 fl (80-94); Mean Platelet Volume 8.7 fl (7.4-10.4); Monocytes # 0.8 K/mm3 (0.1-1.0); Monocytes % 6.7 % (1.7-9.3); Neutrophils % 73.4 % (37.0-80.0); Nucleated Red Blood Cells # 0.08 10^3/uL; Nucleated Red Blood Cells % 0.7 %; Platelet Count 492 K/mm3 (142-424); Red Blood Count 3.62 M/mm3 (4.60-6.20); Red Cell Distribution Width 16.6 % (11.5-17.5); Red Cell Distribution Width-SD 44.6 fL; White Blood Count 12.2 K/mm3 (4.8-10.8)
[2024-09-12 07:22] LABS: Albumin Level 3.1 g/dl (3.5-5.0); Chloride 103 mmol/L (98-107); Sodium 130 mmol/L (136-145)
[2024-09-12 07:23] LABS: Potassium 5.2 mmoL/L (3.5-5.1)
[2024-09-12 07:25] LABS: Alanine Aminotransferase 13 U/L (12-78); Albumin/Globulin Ratio 0.9 (1.1-1.8); Anion Gap 9.2 mEq/L (5-15); Aspartate Amino Transferase 15 U/L (17-59); Blood Urea Nitrogen 63 mg/dl (9-20); Carbon Dioxide 23 mmol/L (22.0-30.0); Creatinine Clearance Estimated 41 mL/min (50-200); Estimated Glomerular Filt Rate 30 ml/min (>60); GFR (African American) 37 ML/MIN (>60); Globulin 3.3 g/dL (1.3-3.2); Total Protein,Serum 6.4 g/dl (6.3-8.2)
[2024-09-12 07:26] LABS: Alkaline Phosphatase 117 U/L (38-126); Bilirubin,Total 0.3 mg/dl (0.2-1.3); Glucose 271 mg/dl (74-100); Phosphorous 5.4 mg/dl (2.5-4.5)
--- NOTE | 2024-09-12 07:51 | P.PN_ITS ---
Subjective *Date: 09/12/24 *Time: 22:06 Medical Exam Vital signs and Labs for Last 24 Hours: Vital Signs Temp Pulse Resp BP Pulse Ox O2 Del Method 09/12/24 06:34 Room Air 09/12/24 05:00 Room Air 09/12/24 03:00 Room Air 09/12/24 01:00 Room Air 09/11/24 23:00 Room Air 09/11/24 21:00 Room Air 09/11/24 20:00 Room Air 09/11/24 20:00 98.4 F 62 17 96/48 L 98 09/11/24 17:57 Room Air 09/11/24 17:00 Room Air 09/11/24 16:00 97.7 F 46 L 17 100/48 L 93 L Room Air 09/11/24 14:56 Room Air 09/11/24 12:21 Room Air 09/11/24 09:52 Room Air 09/11/24 09:00 Room Air 09/11/24 08:00 Room Air 09/11/24 08:00 97.8 F 108 H 18 147/89 H 100 Intake and Output 09/11/24 09/11/24 09/12/24 15:59 23:59 07:59 Intake Total 541.833 / 1221.833 480 / 1221.833 300 / 300 Output Total 800 / 950 150 / 950 300 / 300 Balance -258.167 / 271.833 330 / 271.833 0 / 0 Intake: Intake, Oral Amount 480 / 960 480 / 960 Intake, Total IV Amount 61.833 / 261.833 300 / 300 Cefepime HCl 2 gm In 0.9 % 200 / 200 Sodium Chloride 100 ml @ 200 mls/hr IV Q8H [facility] Rx#:[id number] Output: Output, Urine Amount 800 / 950 150 / 950 300 / 300 Other: Number of Unmeasured Voids 0 0 Laboratory Results - last 24 hr 09/11/24 05:40: WBC 13.2 H, RBC 4.02 L, Hgb 9.1 L, Hct 29.8 L, MCV 74.1 L, MCH 22.6 L, MCHC 30.5 L, RDW 16.4, Plt Count 500 H, MPV 9.1, Neut % (Auto) 77.0, Lymph % (Auto) 11.9, [place] % (Auto) 7.3, Eos % (Auto) 2.0, Baso % (Auto) 0.5, Neut # (Auto) 10.2 H, Lymph # (Auto) 1.6, [place] # (Auto) 1.0, Eos # (Auto) 0.3, Baso # (Auto) 0.1, Sodium 132 L, Potassium 5.4 H, Chloride 107, Carbon Dioxide 19 L, Anion Gap 11.4, BUN 55 H, Creatinine 1.40 H D, Estimated Creat Clear 65, Estimated GFR 51 L, Est GFR ( Amer) 62 D, Glucose 330 H, Calcium 11.5 H, Magnesium 1.9, Total Bilirubin 0.2, AST 14 L, ALT 13, Alkaline Phosphatase 167 H , Total Protein 6.0 L, Albumin 3.0 L D, Globulin 3.0, Albumin/Globulin Ratio 1.0 L 09/11/24 09:58: POC Glucose 357 H* 09/11/24 15:16: POC Glucose 252 H 09/11/24 20:09: POC Glucose 202 H 09/12/24 05:04: POC Glucose 205 H 09/12/24 06:40: WBC 12.2 H, RBC 3.62 L, Hgb 8.1 L, Hct 26.7 L, MCV 73.8 L, MCH 22.4 L, MCHC 30.3 L, RDW 16.6, Plt Count 492 H, MPV 8.7, Neut % (Auto) 73.4, Lymph % (Auto) 16.2, [place] % (Auto) 6.7, Eos % (Auto) 1.0, Baso % (Auto) 0.4, Neut # (Auto) 9.0 H, Lymph # (Auto) 2.0, [place] # (Auto) 0.8, Eos # (Auto) 0.1, Baso # (Auto) 0.1 I & O for Labs for Last 24 Hours: Intake & Output 09/09/24 09/10/24 09/11/24 09/12/24 23:59 23:59 23:59 23:59 Intake Total 1021.833 / 1221.833 300 / 300 Output Total 950 / 950 300 / 300 Balance 71.833 / 271.833 0 / 0 Weight 181.437 kg 189.346 kg Microbiology Reports for the Last 24 Hours: Microbiology 09/11/24 00:38 Blood Blood Culture - Preliminary NO GROWTH AFTER 24 HOURS 09/10/24 22:51 Blood Blood Culture - Preliminary NO GROWTH AFTER 24 HOURS 09/11/24 01:58 Leg,Left Gram Stain - Final Assessment and Plan *Assessment and plan (1) Acute on chronic heart failure with preserved ejection fraction (HFpEF): Status: Acute Category: Medical Code(s): I50.33 - Acute on chronic diastolic (congestive) heart failure (2) Venous stasis ulcer of both lower extremities without varicose veins: Status: Acute Category: Medical Code(s): I87.2 - Venous insufficiency (chronic) (peripheral); L97.919 - Non-pressure chronic ulcer of unspecified part of right lower leg with unspecified severity; L97.929 - Non-pressure chronic ulcer of unspecified part of left lower leg with unspecified severity (3) Peripheral vascular disease: Status: Acute Category: Medical Code(s): I73.9 - Peripheral vascular disease, unspecified (4) Cellulitis: Status: Acute Qualifiers: Laterality: unspecified laterality Site of cellulitis: extremity Site of cellulitis of extremity: lower extremity Qualified Code(s): L03.119 - Cellulitis of unspecified part of limb Category: Medical Code(s): L03.90 - Cellulitis, unspecified (5) Hypercalcemia: Status: Acute Category: Medical Code(s): E83.52 - Hypercalcemia (6) Chronic wound: Status: Acute Category: Medical Code(s): T14.8XXA - Other injury of unspecified body region, initial encounter (7) Bilateral edema of lower extremity: Status: Acute Category: Medical Code(s): R60.0 - Localized edema (8) Atrial fibrillation with RVR: Status: Acute Category: Medical Code(s): I48.91 - Unspecified atrial fibrillation (9) Morbid obesity: Status: Acute Category: Medical Code(s): E66.01 - Morbid (severe) obesity due to excess calories (10) Diabetic neuropathy: Status: Acute Qualifiers: Diabetes mellitus complication detail: diabetic polyneuropathy Diabetes mellitus type: type 2 Qualified Code(s): E11.42 - Type 2 diabetes mellitus with diabetic polyneuropathy Category: Medical Code(s): E11.40 - Type 2 diabetes mellitus with diabetic neuropathy, unspecified (11) Morbid obesity with BMI of 50.0-59.9, adult: Status: Acute Category: Medical Code(s): E66.01 - Morbid (severe) obesity due to excess calories; Z68.43 - Body mass index [BMI] 50.0-59.9, adult (12) Volume overload: Status: Acute Qualifiers: Hypervolemia type: unspecified Qualified Code(s): E87.70 - Fluid overload, unspecified Category: Medical Code(s): E87.70 - Fluid overload, unspecified (13) Microcytic anemia: Status: Acute Category: Medical Code(s): D50.9 - Iron deficiency anemia, unspecified (14) Adult failure to thrive: Status: Acute Category: Medical Code(s): R62.7 - Adult failure to thrive (15) LORI (obstructive sleep apnea): Status: Acute Category: Medical Code(s): G47.33 - Obstructive sleep apnea (adult) (pediatric) (16) Diabetes mellitus: Status: Acute Qualifiers: Diabetes mellitus complication status: with hyperglycemia Diabetes mellitus shelter insulin use: without terminal computer operator use Diabetes mellitus type: type 2 Qualified Code(s): E11.65 - Type 2 diabetes mellitus with hyperglycemia Category: Medical Code(s): E11.9 - Type 2 diabetes mellitus without complications (17) Sacral wound: Status: Acute Qualifiers: Encounter type: initial encounter Qualified Code(s): S31.000A - Unspecified open wound of lower back and pelvis without penetration into retroperitoneum, initial encounter Category: Medical Code(s): S31.000A - Unspecified open wound of lower back and pelvis without penetration into retroperitoneum, initial encounter Plan Bebeto Christiansen is a 64-year-old male with morbid obesity, acute on chronic HFpEF, volume overload, lower extremity erythema, stasis ulcerations. Presented with worsening cellulitis and drainage of his legs. Discussed case with ER physician, request admission for antibiotics and further management. Medicine agreed to admit for further care. Bump in creatinine today, will discontinue Bumex drip. Cardiology evaluating today to assist with fluid management. Continues to necessitate inpatient care. Problems addressed as follows: Acute on Chronic HFpEF Anasarca Atrial fibrillation Hypertension - Heart rate appears controlled at this time. Appears frankly volume o verloaded. BNP 1999 ? Unclear his volume status but legs look better with less edema. Given bump in creatinine, hold on further Bumex today. Discontinue drip. Will reevaluate daily diuretic needs - BUN 67, creatinine 2.2. Potassium 5.2 with magnesium 2.0. - Holding spironolactone in the setting of hyperkalemia - Continue metoprolol succinate 150 mg daily and diltiazem 360 mg daily per home regimen - Eliquis 5 mg twice daily. - Continue aspirin 81 mg daily for PAD. - Echo obtained within the past 2 months with severe diastolic dysfunction but preserved ejection fraction ? Repeat CBC, CMP, magnesium ordered for the morning. ? Fluid restriction 1800. #Hyperkalemia ? Hold spironolactone. Potassium 5.2. Will consider Kayexalate if potassium continues to elevate. Diabetes: - A1c worsening at 10.5. States he has been compliant. Lantus increased to 75 units twice daily. Morning glucose 205 - Continue sliding scale insulin +10 units ACHS. -Diabetic diet of 1500 jone -Holding Jardiance due to risk for Marilin's gangrene given groin wounds and retracted penis Stasis erythema/edema Leg pain - Wound care consulted to assist with management of ulcerations on legs. - Continue dry dressing on wounds - tizanidine for leg cramping 2mg TID - Continue tramadol 50 mg every 6 hours for pain Microcytic anemia: Hemoglobin 8, platelets 492, white count improved to 12. Transfusion threshold hemoglobin less than 7. Status post 1 dose Venofer this morning LORI: Consider oxygen at night versus CPAP after discussion with patient about his home regimen. On room air at this time; goal sats greater 90% Morbid obesity complicates all aspects of his care. Wound care consulted to assist with legs and stasis ulcers, refer to outpt wound care after DC Full code eliquis 5mg BID Diabetic diet
[2024-09-12] MEDS: HYDROMORPHONE 2MG/ML SYRINGE 2 MG IV (08:01)
--- NOTE | 2024-09-12 08:05 | EXP.PHA.CONS ---
Pharmacy Consult Date: 09/12/24 Time: 08:05 Referring provider: DR. ROBERTS Reason for Consult:: VANCOMYCIN DOSING Allergies Allergy/AdvReac Type Severity Reaction Status Date / Time hydromorphone (From Dilaudid) AdvReac Vomiting Verified 09/02/24 10:49 morphine AdvReac Vomiting Verified 09/02/24 10:49 Home Medications ?Medication ?Instructions ?Recorded ?Confirmed ?Type aspirin 81 mg tablet,delayed 81 mg PO DAILY 30 days #30 tabs 06/21/24 09/11/24 Rx release diltiazem HCl 180 mg 360 mg (2 x 180 mg) PO DAILY 30 06/21/24 09/11/24 Rx capsule,extended release 24 hr days #60 caps pantoprazole 40 mg tablet,delayed 40 mg PO HS 30 days #30 tabs 06/21/24 09/11/24 Rx release metoprolol succinate 50 mg 150 mg PO DAILY 07/18/24 09/11/24 History tablet,extended release 24 hr ondansetron 4 mg disintegrating 4 mg PO Q8HP PRN nausea and 07/28/24 09/11/24 History tablet vomiting paroxetine HCl 20 mg tablet 20 mg PO DAILY 07/30/24 09/11/24 History bumetanide 2 mg tablet 2 mg PO TID 30 days #90 tabs 08/01/24 09/11/24 Rx insulin lispro 100 unit/mL See Protocol SQ ACHS 30 days #1.2 08/01/24 09/11/24 Rx subcutaneous solution (Humalog mL U-100 Insulin) tizanidine 4 mg tablet 4 mg PO TID PRN Muscle cramps 30 08/01/24 09/11/24 Rx days #30 tabs tramadol 50 mg tablet 50 mg PO Q8H PRN pain #15 tabs 08/12/24 09/11/24 Rx gabapentin 300 mg capsule 900 mg (3 x 300 mg) PO TID 30 days 08/26/24 09/11/24 Rx #270 caps insulin glargine 100 unit/mL (3 60 unit SQ BID 09/02/24 09/11/24 History mL) subcutaneous pen (Lantus Solostar U-100 Insulin) spironolactone 100 mg tablet 100 mg PO DAILY 09/02/24 09/11/24 History New Prescriptions to Start Prescriptions: Height: 1.91 m Weight: 189.346 kg Laboratory Results:: Laboratory Results - last 24 hr 09/11/24 05:40: WBC 13.2 H, RBC 4.02 L, Hgb 9.1 L, Hct 29.8 L, MCV 74.1 L, MCH 22.6 L, MCHC 30.5 L, RDW 16.4, Plt Count 500 H, MPV 9.1, Neut % (Auto) 77.0, Lymph % (Auto) 11.9, [place] % (Auto) 7.3, Eos % (Auto) 2.0, Baso % (Auto) 0.5, Neut # (Auto) 10.2 H, Lymph # (Auto) 1.6, [place] # (Auto) 1.0, Eos # (Auto) 0.3, Baso # (Auto) 0.1, Sodium 132 L, Potassium 5.4 H, Chloride 107, Carbon Dioxide 19 L, Anion Gap 11.4, BUN 55 H, Creatinine 1.40 H D, Estimated Creat Clear 65, Estimated GFR 51 L, Est GFR ( Amer) 62 D, Glucose 330 H, Calcium 11.5 H, Magnesium 1.9, Total Bilirubin 0.2, AST 14 L, ALT 13, Alkaline Phosphatase 167 H, Total Protein 6.0 L, Albumin 3.0 L D, Globulin 3.0, Albumin/Globulin Ratio 1.0 L 09/11/24 09:58: POC Glucose 357 H* 09/11/24 15:16: POC Glucose 252 H 09/11/24 20:09: POC Glucose 202 H 09/12/24 05:04: POC Glucose 205 H 09/12/24 06:40: WBC 12.2 H, RBC 3.62 L, Hgb 8.1 L, Hct 26.7 L, MCV 73.8 L, MCH 22.4 L, MCHC 30.3 L, RDW 16.6, Plt Count 492 H, MPV 8.7, Neut % (Auto) 73.4, Lymph % (Auto) 16.2, [place] % (Auto) 6.7, Eos % (Auto) 1.0, Baso % (Auto) 0.4, Neut # (Auto) 9.0 H, Lymph # (Auto) 2.0, [place] # (Auto) 0.8, Eos # (Auto) 0.1, Baso # (Auto) 0.1 Medical History: Medical History (Updated 09/11/24 @ 03:53 by Tony Carl APRN) Atrial fibrillation Peripheral arterial disease Hypertension Diabetes mellitus Cellulitis of left lower extremity Venous stasis ulcer of both lower extremities without varicose veins Volume overload Cellulitis Acute on chronic heart failure with preserved ejection fraction (HFpEF) LORI (obstructive sleep apnea) Assessment and Plan Assessment and plan all Dx Assessment and Plan for all problems:: Pharmacokinetic dosing service Objective: Patient: Floor: Age: 64 yo Serum creatinine: 1.40 mg/dL Height: 75.2 Inches Weight (kg): 189.3 Assessment: IBW (kg): 84.96 Dosing wt(kg): 189.3 Estimated Creatinine clearance (ml/min): 64.9 CRCL method: Cockcroft and Gault using ibw(default). Drug selected: Vancomycin Loading dose (mg): Vd (liters): 151.4 (factor used: 0.8 L/kg) Stephan (hr-1): 0.058 Half life (hrs): 11.95 CLvanco=?? 8.781 L/hr Recommended dose: 2500 mg Interval: 12 hrs Infusion time (hrs): 2.0 Predicted peak (mcg/mL): 31.1 Predicted trough (mcg/mL): 17.41 Total body weight is being used for vancomycin dosing. Recommendations: Give Vancomycin 2500 mg q 12 hrs with an expected Cpeak of 31.1 mcg/ml and an expected Ctrough of 17.41 mcg/ml AUC 0-24 /LENARD Data: LENARD 0.5 mcg/mL:?? AUC/LENARD:? 1138.8 LENARD 1.0 mcg/mL:?? AUC/LENARD:? 569.4 --------- LENARD 1.5 mcg/mL:?? AUC/LENARD:? 379.6 LENARD 2.0 mcg/mL:?? AUC/LENARD:? 284.7 Thank you for the consult, will continue to follow. -LISA CALDERON, JEANCARLOSD
[2024-09-12] MEDS: IRON SUCROSE COMPLEX 200 MG in 0.9 % SODIUM CHLORIDE 100 ML 220 MG IV (08:23)
[2024-09-12] MEDS: ONDANSETRON 4MG/2ML VIAL 4 MG IV ×3 (08:24→22:05)
--- NOTE | 2024-09-12 08:30 | SW/DCPLANNER ---
Addendum entered by [facility] 09/21/24 12:03: Patient is now refusing placement and prefers to return home. Patient understands that home health services are not available at this time due to insurance. Per MD patient will discharge home tomorrow. I have updated Homer fletcher/ Arcenio Blevins. Addendum entered by [facility] 09/21/24 08:31: Per Homer uribe is still pending at this time. Addendum entered by Bhumika Houston RN 09/20/24 13:53: Per Homer uribe is still pending. Addendum entered by [facility] 09/19/24 15:10: Per Homer fletcher/ Arcenio Blevins precert has been started today. I will update patient. Addendum entered by [facility] 09/19/24 13:28: Patient information has also been faxed to [facility], [facility], [facility], [facility], [facility], [facility] and [facility]. [facility] is not able to accept this patient. Addendum entered by [facility] 09/19/24 08:43: Patient is now agreeable to SNF level of care stating that he is too weak to return home. Patient voiced he preferred [facility] but no preference on facility. I explained to patient that [facility] is the only facility in [place] that accepts his insurance. Patient is agreeable to surrounding [facility] as well. Patient information will be faxed to [facility] [address], [facility] and [facility]. Addendum entered by [facility] 09/15/24 14:00: I did confirm w/ SANDIE, [facility] and [facility] that they could not accept patient for services. Addendum entered by [facility] 09/15/24 13:23: Per [facility] cost will be $100 total for 10 days. Patient is fine w/ cost and will contact [employer] back via phone today. Addendum entered by [facility] 09/15/24 11:23: Patient will require IV antibiotics (Meropenem 3 x day) at time of discharge. CM discussed outpatient vs home w/ prescription from [facility] vs placement. Patient stated that returning 3 times a day would be an issue and is NOT interested in placement. 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 Patient is agreeable for information to be faxed to [facility] this AM. I will fax patient information and order for IV antibiotics and follow up. Discharge date is unknown at this time. Original Note: I spoke w/ this patient regarding plans once medically stable for discharge. PT evaluated patient and recommended placement at this time. I spoke w/ patient regarding placement and he was quick to refuse. Patient stated that he has been to nursing facilities in the past and will not be returning at discharge. I also discussed home health services. Patient stated that he lives close to the hospital and prefers to return to outpatient wound care. Patient is currently established w/ outpatient wound care. I will continue to follow up w/ patient during hospital admission. Discharge date is unknown at this time.
--- NOTE | 2024-09-12 09:36 | EXP.POD.CONS ---
History of Present Illness *Admission Date: 09/11/24 *Reason for visit:: B/L LE cellulitis *History of present illness: Mr. Vegas is an extremely obese male with approximately 400 pound, he has had diabetes for quite some time and has been going to a wound center for significant peripheral vascular disease diabetic lower extremities and feet., There has been some upper respiratory illnesses in the family and he has ended up missing the last 2 wound appointments. Redness and drainage of the lower extremities bilaterally has increased., During workup in the ER secondary to the cellulitis found that there was new onset of hypercalcemia that was never noted in his past record. Also noting that there is a foreign body possibly metal located in the posterior right heel. With the patient sitting in a wheelchair noting that both legs are weeping some bloody discharge that the toes are blue. ER provider noted though that there was positive pulses to both lower extremities The patient he has not had any fever he has had no nausea or vomiting bowel and bladder habits have remained the same. Per the patient's and also family history he has had blue toes for quite some time. Also chronic atrial fibs Podiatry consult: Patient is a 64-year-old obese diabetic male with a history of bilateral lymphedema, PAD, diabetic foot ulcers, right fourth toe amputation, left fifth toe amputation at [facility] March 2024. Podiatry consulted to evaluate for bilateral lower extremity cellulitis and DFU. Patient is well-known to the [facility] wound care team as he has been seeing them outpatient. Patient is new to podiatry team. Podiatry SOFTWARE PACKAGING ENGINEER and myself saw and evaluated the patient this morning. He was abrupt and not pleasant. He seemed annoyed by us asking questions and wanting to evaluate him. He reports Pete knows me, ask him the questions . He reports significant pain to the lower legs, left worse than right. There are some drainage noted to the wounds, strikethrough on the bandage. He denies F/C, N/V. Wants to eat. [facility] Disclaimer: The information contained in this section may have been updated after the patient was seen, as this information can be updated by other users. 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 Social History (Updated 09/11/24 @ 04:11 by Johnna Baltazar RN) Smoking Status: Smoker, status unknown alcohol intake: never current occupational status: retired and disabled Travel in the last 8 weeks?: None Have you lived/traveled outside US in past 30 days?: No Contact w/someone who lives/traveled outside US past 30 days?: No Exposure to someone with infectious disease in past 14 days?: No Do you have a fever (greater than 100.4 F or 38 C)?: No Have you tested positive for COVID-19?: No Exposed to someone with COVID-19 in past 14 days?: No Do you have a sore throat?: No Do you have a cough?: No Do you have any weakness?: Yes Do you have any diarrhea?: No Are you experiencing any unusual bleeding?: No Do you have any muscle aches/pain?: No Do you have any abdominal pain?: No Are you experiencing loss of taste or smell?: No Review of Systems Review of Systems Review of systems:: pertinent systems reviewed and negative unless documented below Constitutional Constitutional: Reports system reviewed and no additional complaints, except as documented Eyes Eyes: Reports system reviewed and no additional complaints, except as documented ENT Ears, Nose, Mouth, and Throat: Reports system reviewed and no additional complaints, except as documented *Cardiovascular Cardiovascular: Reports system reviewed and no additional complaints, except as documented and Reports leg edema *Respiratory Respiratory: Reports system reviewed and no additional complaints, except as documented *Gastrointestinal Gastrointestinal: Reports system reviewed and no additional complaints, except as documented *Genitourinary Genitourinary: Reports system reviewed and no additional complaints, except as documented *Musculoskeletal Musculoskeletal: Reports system reviewed and no additional complaints, except as documented and Reports radiating pain into limb Integumentary/Breasts Skin/Breast: Reports skin ulcer, Reports skin swelling and Reports wounds *Neurologic Neurologic: Reports as per HPI and Reports paresthesias Psychiatric Psychiatric: Reports system reviewed and no additional complaints, except as documented Endocrine Endocrine: Reports system reviewed and no additional complaints, except as documented Hematologic/Lymphatic Hematologic/Lymphatic: Reports system reviewed and no additional complaints, except as documented Allergic/Immunologic Allergic/Immunologic: Reports system reviewed and no additional complaints, except as documented Meds Home Medications and Allergies Home Medications ?Medication ?Instructions ?Recorded ?Confirmed ?Type aspirin 81 mg tablet,delayed 81 mg PO DAILY 30 days #30 tabs 06/21/24 09/11/24 Rx release diltiazem HCl 180 mg 360 mg (2 x 180 mg) PO DAILY 30 06/21/24 09/11/24 Rx capsule,extended release 24 hr days #60 caps pantoprazole 40 mg tablet,delayed 40 mg PO HS 30 days #30 tabs 06/21/24 09/11/24 Rx release metoprolol succinate 50 mg 150 mg PO DAILY 07/18/24 09/11/24 History tablet,extended release 24 hr ondansetron 4 mg disintegrating 4 mg PO Q8HP PRN nausea and 07/28/24 09/11/24 History tablet vomiting paroxetine HCl 20 mg tablet 20 mg PO DAILY 07/30/24 09/11/24 History bumetanide 2 mg tablet 2 mg PO TID 30 days #90 tabs 08/01/24 09/11/24 Rx insulin lispro 100 unit/mL See Protocol SQ ACHS 30 days #1.2 08/01/24 09/11/24 Rx subcutaneous solution (Humalog mL U-100 Insulin) tizanidine 4 mg tablet 4 mg PO TID PRN Muscle cramps 30 08/01/24 09/11/24 Rx days #30 tabs tramadol 50 mg tablet 50 mg PO Q8H PRN pain #15 tabs 08/12/24 09/11/24 Rx gabapentin 300 mg capsule 900 mg (3 x 300 mg) PO TID 30 days 08/26/24 09/11/24 Rx #270 caps insulin glargine 100 unit/mL (3 60 unit SQ BID 09/02/24 09/11/24 History mL) subcutaneous pen (Lantus Solostar U-100 Insulin) spironolactone 100 mg tablet 100 mg PO DAILY 09/02/24 09/11/24 History New Prescriptions to Start Prescriptions: Allergies Allergy/AdvReac Type Severity Reaction Status Date / Time hydromorphone (From Dilaudid) AdvReac Vomiting Verified 09/02/24 10:49 morphine AdvReac Vomiting Verified 09/02/24 10:49 Exam (Inpt) Vital signs and Labs for Last 24 Hours: Temp Pulse Resp BP Pulse Ox O2 Del Method 98.4 F 62 17 96/48 L 98 Room Air 09/11/24 20:00 09/11/24 20:00 09/11/24 20:00 09/11/24 20:00 09/11/24 20:00 09/12/24 06:34 Laboratory Results - last 24 hr 09/11/24 09:58: POC Glucose 357 H* 09/11/24 15:16: POC Glucose 252 H 09/11/24 20:09: POC Glucose 202 H 09/12/24 05:04: POC Glucose 205 H 09/12/24 06:40: WBC 12.2 H, RBC 3.62 L, Hgb 8.1 L, Hct 26.7 L, MCV 73.8 L, MCH 22.4 L, MCHC 30.3 L, RDW 16.6, Plt Count 492 H, MPV 8.7, Neut % (Auto) 73.4, Lymph % (Auto) 16.2, Millard % (Auto) 6.7, Eos % (Auto) 1.0, Baso % (Auto) 0.4, Neut # (Auto) 9.0 H, Lymph # (Auto) 2.0, Millard # (Auto) 0.8, Eos # (Auto) 0.1, Baso # (Auto) 0.1, Sodium 130 L, Potassium 5.2 H, Chloride 103, Carbon Dioxide 23, Anion Gap 9.2, BUN 63 H, Creatinine 2.20 H D, Estimated Creat Clear 41, Estimated GFR 30 L, Est GFR ( Amer) 37 L D, Glucose 271 H, Calcium 10.0, Phosphorus 5.4 H, Magnesium 2.0, Total Bilirubin 0.3, AST 15 L, ALT 13, Alkaline Phosphatase 117, Total Protein 6.4, Albumin 3.1 L, Globulin 3.3 H, Albumin/Globulin Ratio 0.9 L I & O for Labs for Last 24 Hours: Intake & Output 09/09/24 09/10/24 09/11/24 09/12/24 11:59 11:59 11:59 11:59 Intake Total 480 / 480 1150.833 / 1150.833 Output Total 800 / 800 450 / 450 Balance -320 / -320 700.833 / 700.833 Weight 417 lb 7 oz 417 lb 7 oz Microbiology Reports for the Last 24 Hours: Microbiology 09/11/24 00:38 Blood Blood Culture - Preliminary NO GROWTH AFTER 24 HOURS 09/10/24 22:51 Blood Blood Culture - Preliminary NO GROWTH AFTER 24 HOURS 09/11/24 01:58 Leg,Left Gram Stain - Final Constitutional: Present no acute distress and morbidly obese Head: Present normocephalic Neck: Present normal inspection Respiratory: Present normal respiratory effort Cardiac: Present pedal pulses present Comment:: Difficult to palpate secondary to lymphedema, swelling. No pedal hair growth. GI: Present soft Rectal (male): Present deferred (male): Present deferred Extremities: Present edema Skin: Present erythema Comment:: B/L LE edema, erythema with weeping drainage from both legs. Multiple areas of loose peeling sloughing skin to both anterior ankles. Right 2nd toe DFU, sub 5th met DFU. Sharp excisional full-thickness debridement with 15 blade through skin into subcu. Post debridement: Right second toe DFU: 100% granular, 0.3 x 0.3 x 0.2 cm. Right subfifth metatarsal DFU: 100% granular, 4 x 3.1 x 0.2 cm. Dry scab intact to distal right hallux, left hallux. Neuro: Present oriented x 3; Absent Sensory Function Intact Comment:: Some decreased/absent sensation to plantar feet secondary to DM neuropathy. Ankle: bilateral: erythema (cellulitis), bilateral: swelling (2+ pitting edema) and bilateral: tenderness (L>R LE) Feet/Toes: bilateral: amputation (R 4th toe, L 5th toe amp), bilateral: erythema and bilateral: hammer toe Inspection: Present foot deformity deformity: Present hammer toes, nail disorder, skin break, infection and ulceration Pulses: L dorsalis pedis pulse: diminished, R dorsalis pedis pulse: diminished, L posterior tibial pulse: diminished and R posterior tibial pulse: diminished CFT: dim: CFT Results Labs 09/12/24 06:40 09/12/24 06:40 Labs: Abnormal lab results 06/01/25 06/01/25 06/01/25 Range/Units 09:58 15:16 20:09 WBC (4.8-10.8) K/mm3 RBC (4.60-6.20) M/mm3 Hgb (14.1-18.0) g/dL Hct (42.0-52.0) % MCV (80-94) fl MCH (27.0-31.2) pg MCHC (31.8-35.4) g/dL Plt Count (142-424) K/mm3 Neut # (Auto) (1.8-7.8) K/mm3 Sodium (136-145) mmol/L Potassium (3.5-5.1) mmoL/L BUN (9-20) mg/dl Creatinine (0.66-1.25) mg/dl Estimated GFR (>60) ml/min Est GFR ( Amer) (>60) ML/MIN Glucose (74-100) mg/dl POC Glucose 357 H* 252 H 202 H (70-110) Phosphorus (2.5-4.5) mg/dl AST (17-59) U/L Albumin (3.5-5.0) g/dl Globulin (1.3-3.2) g/dL Albumin/Globulin Ratio (1.1-1.8) 09/12/24 09/12/24 Range/Units 05:04 06:40 WBC 12.2 H (4.8-10.8) K/mm3 RBC 3.62 L (4.60-6.20) M/mm3 Hgb 8.1 L (14.1-18.0) g/dL Hct 26.7 L (42.0-52.0) % MCV 73.8 L (80-94) fl MCH 22.4 L (27.0-31.2) pg MCHC 30.3 L (31.8-35.4) g/dL Plt Count 492 H (142-424) K/mm3 Neut # (Auto) 9.0 H (1.8-7.8) K/mm3 Sodium 130 L (136-145) mmol/L Potassium 5.2 H (3.5-5.1) mmoL/L BUN 63 H (9-20) mg/dl Creatinine 2.20 H D (0.66-1.25) mg/dl Estimated GFR 30 L (>60) ml/min Est GFR ( Amer) 37 L D (>60) ML/MIN Glucose 271 H (74-100) mg/dl POC Glucose 205 H (70-110) Phosphorus 5.4 H (2.5-4.5) mg/dl AST 15 L (17-59) U/L Albumin 3.1 L (3.5-5.0) g/dl Globulin 3.3 H (1.3-3.2) g/dL Albumin/Globulin Ratio 0.9 L (1.1-1.8) H & H 09/10/24 09/11/24 09/12/24 Range/Units 22:51 05:40 06:40 Hgb 9.5 L 9.1 L 8.1 L (14.1-18.0) g/dL Hct 31.4 L 29.8 L 26.7 L (42.0-52.0) % Coagulation 09/10/24 Range/Units 22:51 INR 1.06 (0.9-1.1) All other labs normal. Assessment and Plan *Assessment and plan (1) Diabetic neuropathy: Status: Acute Qualifiers: Diabetes mellitus complication detail: diabetic polyneuropathy Diabetes mellitus type: type 2 Qualified Code(s): E11.42 - Type 2 diabetes mellitus with diabetic polyneuropathy Category: Medical Code(s): E11.40 - Type 2 diabetes mellitus with diabetic neuropathy, unspecified (2) Peripheral vascular disease: Status: Acute Category: Medical Code(s): I73.9 - Peripheral vascular disease, unspecified (3) Foreign body of right heel: Status: Acute Category: Medical Code(s): S90.851A - Superficial foreign body, right foot, initial encounter (4) Cellulitis: Status: Acute Qualifiers: Laterality: unspecified laterality Site of cellulitis: extremity Site of cellulitis of extremity: lower extremity Qualified Code(s): L03.119 - Cellulitis of unspecified part of limb Category: Medical Code(s): L03.90 - Cellulitis, unspecified (5) History of amputation of right fourth toe: Status: Acute Category: Surgical Code(s): Z89.421 - Acquired absence of other right toe(s) (6) History of amputation of left fifth toe: Status: Acute Category: Surgical Code(s): Z89.422 - Acquired absence of other left toe(s) (7) Peripheral arterial disease: Status: Acute Category: Medical Code(s): I73.9 - Peripheral vascular disease, unspecified (8) Venous stasis ulcer of both lower extremities without varicose veins: Status: Acute Category: Medical Code(s): I87.2 - Venous insufficiency (chronic) (peripheral); L97.919 - Non-pressure chronic ulcer of unspecified part of right lower leg with unspecified severity; L97.929 - Non-pressure chronic ulcer of unspecified part of left lower leg with unspecified severity (9) Morbid obesity with BMI of 50.0-59.9, adult: Status: Acute Category: Medical Code(s): E66.01 - Morbid (severe) obesity due to excess calories; Z68.43 - Body mass index [BMI] 50.0-59.9, adult (10) Diabetic ulcer of right foot: Status: Acute Qualifiers: Diabetes mellitus type: type 2 Diabetic foot ulcer location: other Non-pressure ulcer stage: with fat layer exposed Qualified Code(s): E11.621 - Type 2 diabetes mellitus with foot ulcer; L97.512 - Non-pressure chronic ulcer of other part of right foot with fat layer exposed Category: Medical Code(s): E11.621 - Type 2 diabetes mellitus with foot ulcer; L97.519 - Non-pressure chronic ulcer of other part of right foot with unspecified severity Plan Specimens: 08/10/24, Right leg WCx (Dr Martinez): Proteus mirabilis, Pseudomonas aeruginosa, Klebsiella oxytoca 09/12/24, Right leg WCx: pending 09/12/24, Left leg WCx: pending Labs: 09/10/24: wbc 12, esr 66, crp 100.1, cr 1.8, gfr 38, glucose 380, albumin 3.7, Ha1c 10.5% 09/12/24: wbc 12.2, cr 1.4, gfr 51, glucose 320/205, albumin 3.0 09/12/24, Podiatry Consult: -B/L LE cellulitis. -New to [facility] Podiatry but sees Pete at [facility]. -Podiatry SOFTWARE PACKAGING ENGINEER and I evaluated patient this am. -I independently reviewed imaging 09/11/24, 3v b/l foot, tib-fib: no acute fracture, no obvious cortial erosions/OM, small FB to right heel. -Suspect FB to heel is chronic. No open to right heel. Given patient large body habitus, uncontrolled diabetes with an A1c of 10.5, history of noncompliance, active infection, no opening to that area, potential difficulty with surgical exploration and foreign body removal to the site-I would not recommend FB removal. -Labs, previous WCx reviewed. -B/L dressing removed, drainage/strike thru noted to both dsg. -Patient was not pleasant and wanted Pete to evaluate since he has been seeing him. -Right foot DFU x2 sharp excisional debridement with 15' blade full thickness. see skin PE for details. -Xerofrom, betadine soaked gauze laid over open wounds. -B/L dsg not fully applied, so Pete could access. -Discussed plan of care with Pete-[facility]. -Discussed plan of care with Dr. Wu. -Continue IV abx based on 08/10/24 WCx results. -No plan for Podiatry surgery. -Defer wound care and dressing changes to [facility]. -Request [facility] workup: ABIs/arterial doppler, CTA, etc. -Podiatry will coordinate with Pete for continued care (patient requesting wound care team.
[2024-09-12] MEDS: SPIRONOLACTONE 25MG TABLET 100 MG PO (10:12)
[2024-09-12] MEDS: ASPIRIN EC 81MG TABLET 81 MG PO (10:13)
[2024-09-12] MEDS: dilTIAZem HCL 180MG CAP.ER.24H 360 MG PO (10:14)
[2024-09-12] MEDS: METOPROLOL SUCCINATE XL 50MG TABLET 150 MG PO (10:14)
[2024-09-12] MEDS: PARoxetine 20MG TABLET 20 MG PO (10:14)
[2024-09-12] MEDS: INSULIN GLARGINE 100 UNITS/ML 3ML FLEXPEN 75 UNIT SUBCUT ×2 (10:17→21:33)
[2024-09-12] MEDS: GABAPENTIN 300MG CAPSULE 900 MG PO ×2 (10:26→14:09)
--- NOTE | 2024-09-12 11:31 | HMH.PTWOUND ---
Rehab Inpt Wound Evaluation Rehab IP Wound Evaluation Start: 09/11/24 18:14 Freq: ONCE Status: Active Protocol: Document 09/12/24 11:18 PHOABBE (Rec: 09/12/24 11:31 PHORNE [id number]) Rehab PT Wound Assessment Subjective Subjective Mr. Vegas is 64yowm adm to [facility] hx of extremely obese male with approximately 400 pound, he has had diabetes for quite some time and has been going to a wound center for significant peripheral vascular disease diabetic lower extremities and feet., There has been some upper respiratory illnesses in the family and he has ended up missing the last 2 wound appointments. Redness and drainage of the lower extremities bilaterally has increased., During workup in the ER secondary to the cellulitis found that there was new onset of hypercalcemia that was never noted in his past record. Also noting that there is a foreign body possibly metal located in the posterior right heel. With the patient sitting in a wheelchair noting that both legs are weeping some bloody discharge that the toes are blue. ER provider noted though that there was positive pulses to both lower extremities The patient he has not had any fever he has had no nausea or vomiting bowel and bladder habits have remained the same. Per the patient's and also family history he has had blue toes for quite some time. Also chronic atrial fibs Wound Right Lower Leg Wound Type Stasis Ulcer Is This a Chronic Yes Wound Wound Length (cm) 20.0 Wound Width (cm) 20.0 Wound Depth (cm) 0.1 Wound Bed Appearance Beefy Red Wound Margins Indistinct Description Surrounding Tissue Bright Red Appearance Edema Degree 2+ Query Text:1+ Trace, Barely Detectable, Rebound 15-30 seconds 2+ Moderate, Slight Indentation, Rebound 10-20 seconds 3+ Deep, Deeper Indentation, Rebound > 30 seconds 4+ Very Deep, Rebound > 60 seconds Edema Appearance Weeping,Open Sores,Red Wound Drainage Yellow Description Drainage Amount Copious Primary Dressing 2 layer compression Comment 2 layer zinc compression wrap Wound Secondary Absorbant Pad Dressing Type Comment optilock and ABD pads Wound Debridement Mechanical Method Dressing Change Tolerated Poorly Patient Tolerance Left Lower Leg Wound Type Stasis Ulcer Is This a Chronic Yes Wound Wound Length (cm) 15.0 Wound Width (cm) 15.0 Wound Depth (cm) 0.1 Wound Bed Appearance Beefy Red,[place] Wound Margins Indistinct Description Surrounding Tissue Bright Red Appearance Edema Degree 2+ Query Text:1+ Trace, Barely Detectable, Rebound 15-30 seconds 2+ Moderate, Slight Indentation, Rebound 10-20 seconds 3+ Deep, Deeper Indentation, Rebound > 30 seconds 4+ Very Deep, Rebound > 60 seconds Edema Appearance Weeping,Open Sores,Red Wound Drainage Yellow Description Drainage Amount Copious Primary Dressing 2 layer compression Comment 2 layer zinc compression system Wound Secondary Absorbant Pad Dressing Type Comment optilock and ABD pads Wound Debridement Mechanical Method Dressing Change Tolerated Poorly Patient Tolerance Plan/Recommendation Comment Topical analgesic medication applied prior to dressing application. Pt remains very tender to palpation throughout B lower legs. Wounds heavily draining and drainage will be very difficult to control. Continue dressing changes as indicated by amount of drainage. Likely will require frequent dressing changes. Will follow and assist nsg staff with dressings as able. Eval Complexity Eval Charge Codes 58181 - High Complexity Rojas-Cornejo Wound Assessment Tool Assessment Wound size 5=Length x Width >80 sq cm Wound depth 3=Full thickness skin loss involving damage or necrosis of Wound edges 3=Well-defined, not attached to wound base Wound undermining 1=None present Necrotic tissue type 1=Non visible Necrotic tissue 1=None visible amount Exudate type 5=Purulent: thin or thick, opaque, martinez/yellow, withour without odor Exudate amount 5=Large Skin color 2=Bright red &/or blanches to touch surrounding wound Peripheral tissue 5=Crepitus and/or pitting edema extends > or = 4 cm edema around wound Peripheral tissue 1=None present induration Granulation tissue 2=Bright, beefy red;75% to 100% of wound filled &/or tissue overgrowth Epithelialization 5= < 25% wound covered Wound assessment 39 total score PHYSICIAN CERTIFICATION: I certify the specified therapy services for Bebeto Christiansen are required, authorized, and reviewed every 30 days.
[2024-09-12] MEDS: BUMETANIDE 10 MG in 0.9 % SODIUM CHLORIDE 60 ML 20 MG IV ×2 (12:20→14:08)
[2024-09-12 12:34] LABS: POC Glucose,Bedside 183 (70-110)
--- NOTE | 2024-09-12 14:57 | EXP.CARD.CON ---
History of Present Illness History of Present Illness Consult date: 09/12/24 Requesting physician: Cullen Wu Consult reason: shortness of breath Chief complaint: Cellulitis and peripheral edema History of present illness: Hospitalist note: Mr. Christiansen is an extremely obese male with approximately 400 pound, he has had diabetes for quite some time and has been going to a wound center for significant peripheral vascular disease diabetic lower extremities and feet., There has been some upper respiratory illnesses in the family and he has ended up missing the last 2 wound appointments. Redness and drainage of the lower extremities bilaterally has increased., During workup in the ER secondary to the cellulitis found that there was new onset of hypercalcemia that was never noted in his past record. Also noting that there is a foreign body possibly metal located in the posterior right heel. With the patient sitting in a wheelchair noting that both legs are weeping some bloody discharge that the toes are blue. ER provider noted though that there was positive pulses to both lower extremities The patient he has not had any fever he has had no nausea or vomiting bowel and bladder habits have remained the same. Per the patient's and also family history he has had blue toes for quite some time. Also chronic atrial fibs Cardiology: This is a 64-year-old white male with a past medical history of heart failure preserved ejection fraction, medical noncompliance and A-fib who is currently inpatient being diuresed and treated for bilateral lower extremity edema and cellulitis per hospital service. Upon presentation to hospital patient was volume overloaded and was started on Bumex drip. He diuresed well over the weekend and has experienced a bump in creatinine up to 2.2 today. Cardiology was asked to evaluate for further management of volume status. This morning patient is resting in bed reporting bilateral lower extremity pain from wraps that were placed on his legs. He denies chest pain or shorntess of breath. [facility] Disclaimer: The information contained in this section may have been updated after the patient was seen, as this information can be updated by other users. 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 Social History (Updated 09/11/24 @ 04:11 by Johnna Baltazar RN) Smoking Status: Smoker, status unknown alcohol intake: never current occupational status: retired and disabled Travel in the last 8 weeks?: None Have you lived/traveled outside [place] in past 30 days?: No Contact w/someone who lives/traveled outside US past 30 days?: No Exposure to someone with infectious disease in past 14 days?: No Do you have a fever (greater than 100.4 F or 38 C)?: No Have you tested positive for COVID-19?: No Exposed to someone with COVID-19 in past 14 days?: No Do you have a sore throat?: No Do you have a cough?: No Do you have any weakness?: Yes Do you have any diarrhea?: No Are you experiencing any unusual bleeding?: No Do you have any muscle aches/pain?: No Do you have any abdominal pain?: No Are you experiencing loss of taste or smell?: No Review of Systems Review of Systems Review of systems:: pertinent systems reviewed and negative unless documented below *Cardiovascular Cardiovascular: Denies chest pain and Reports dyspnea *Respiratory Respiratory: Reports dyspnea *Neurologic Neurologic: Reports as per HPI and Reports paresthesias Exam Data for Last 24 hours Vital signs and Labs for Last 24 Hours: Temp Pulse Resp BP Pulse Ox O2 Del Method 98.2 F 76 19 100/52 L 98 Room Air 09/12/24 08:00 09/12/24 08:00 09/12/24 08:00 09/12/24 08:00 09/12/24 08:00 09/12/24 11:00 Laboratory Results - last 24 hr 09/11/24 15:16: POC Glucose 252 H 09/11/24 20:09: POC Glucose 202 H 09/12/24 05:04: POC Glucose 205 H 09/12/24 06:40: WBC 12.2 H, RBC 3.62 L, Hgb 8.1 L, Hct 26.7 L, MCV 73.8 L, MCH 22.4 L, MCHC 30.3 L, RDW 16.6, Plt Count 492 H, MPV 8.7, Neut % (Auto) 73.4, Lymph % (Auto) 16.2, [place] % (Auto) 6.7, Eos % (Auto) 1.0, Baso % (Auto) 0.4, Neut # (Auto) 9.0 H, Lymph # (Auto) 2.0, [place] # (Auto) 0.8, Eos # (Auto) 0.1, Baso # (Auto) 0.1, Sodium 130 L, Potassium 5.2 H, Chloride 103, Carbon Dioxide 23, Anion Gap 9.2, BUN 63 H, Creatinine 2.20 H D, Estimated Creat Clear 41, Estimated GFR 30 L, Est GFR ( Amer) 37 L D, Glucose 271 H, Calcium 10.0, Phosphorus 5.4 H, Magnesium 2.0, Total Bilirubin 0.3, AST 15 L, ALT 13, Alkaline Phosphatase 117, Total Protein 6.4, Albumin 3.1 L, Globulin 3.3 H, Albumin/Globulin Ratio 0.9 L 09/12/24 12:17: POC Glucose 183 H I & O for Last 24 hours: Intake & Output 09/09/24 09/10/24 09/11/24 09/12/24 23:59 23:59 23:59 23:59 Intake Total 1021.833 / 2129.602 6538 / 1216 Output Total 950 / 950 850 / 850 Balance 71.833 / 271.833 366 / 366 Weight 400 lb 417 lb 7 oz 416 lb 10.778 oz Microbiology Reports for the Last 24 Hours: Microbiology 09/11/24 01:58 Leg,Left Gram Stain - Final 09/11/24 01:58 Leg,Left Wound Culture - Preliminary 09/11/24 00:38 Blood Blood Culture - Preliminary NO GROWTH AFTER 24 HOURS 09/10/24 22:51 Blood Blood Culture - Preliminary NO GROWTH AFTER 24 HOURS Constitutional Constitutional: no acute distress *Routine Respiratory Exam Respiratory: Present CTA bilaterally and symmetric chest movement *Routine Cardiovascular Exam Cardiovascular: Present RRR, Normal S1 and Normal S2 *Routine Abdominal Exam Abdominal: Present soft and normoactive bowel sounds; Absent tenderness *Routine Extremities Exam Extremities: Present edema, full ROM and normal capillary refill *Routine Skin Exam Skin: Present intact, dry and warm Detailed Neck Exam: Thyroids Thyroid: Absent bruit Meds Home Medications and Allergies Home Medications ?Medication ?Instructions ?Recorded ?Confirmed ?Type aspirin 81 mg tablet,delayed 81 mg PO DAILY 30 days #30 tabs 06/21/24 09/11/24 Rx release diltiazem HCl 180 mg 360 mg (2 x 180 mg) PO DAILY 30 06/21/24 09/11/24 Rx capsule,extended release 24 hr days #60 caps pantoprazole 40 mg tablet,delayed 40 mg PO HS 30 days #30 tabs 06/21/24 09/11/24 Rx release metoprolol succinate 50 mg 150 mg PO DAILY 07/18/24 09/11/24 History tablet,extended release 24 hr ondansetron 4 mg disintegrating 4 mg PO Q8HP PRN nausea and 07/28/24 09/11/24 History tablet vomiting paroxetine HCl 20 mg tablet 20 mg PO DAILY 07/30/24 09/11/24 History bumetanide 2 mg tablet 2 mg PO TID 30 days #90 tabs 08/01/24 09/11/24 Rx insulin lispro 100 unit/mL See Protocol SQ ACHS 30 days #1.2 08/01/24 09/11/24 Rx subcutaneous solution (Humalog mL U-100 Insulin) tizanidine 4 mg tablet 4 mg PO TID PRN Muscle cramps 30 08/01/24 09/11/24 Rx days #30 tabs tramadol 50 mg tablet 50 mg PO Q8H PRN pain #15 tabs 08/12/24 09/11/24 Rx gabapentin 300 mg capsule 900 mg (3 x 300 mg) PO TID 30 days 08/26/24 09/11/24 Rx #270 caps insulin glargine 100 unit/mL (3 60 unit SQ BID 09/02/24 09/11/24 History mL) subcutaneous pen (Lantus Solostar U-100 Insulin) spironolactone 100 mg tablet 100 mg PO DAILY 09/02/24 09/11/24 History New Prescriptions to Start Prescriptions: Allergies Allergy/AdvReac Type Severity Reaction Status Date / Time hydromorphone (From Dilaudid) AdvReac Vomiting Verified 09/02/24 10:49 morphine AdvReac Vomiting Verified 09/02/24 10:49 Assessment and Plan *Assessment and plan (1) Heart failure with reduced ejection fraction: Status: Acute Category: Medical Code(s): I50.20 - Unspecified systolic (congestive) heart failure (2) Morbid obesity: Status: Acute Category: Medical Code(s): E66.01 - Morbid (severe) obesity due to excess calories Plan Acute on Chronic HFpEF Echo 06/2024- Normal EF Hx of noncompliance BNP is 2130 on admission Serial troponins negative Chest xray on admission showed no acute findings Patient was started on Bumex drip and has diuresed well Creatinine went from 1.3-2.2 on Bumex drip. Recommend stopping drip at this time Resume Bumex at 2 mg IV twice daily tomorrow Continue Aldactone 100 mg daily. Monitor potassium- if potassium continues to rise consider decreasing to 50 mg daily. History of A-fib Chronic A-fib, currently rate controlled in the 70s Continue metoprolol succinate 150 mg p.o. daily Continue diltiazem 360 mg p.o. daily Currently on Lovenox will need transitioned back to Eliquis or Xarelto prior to discharge home. CV summary 09/12/2024: Stop Bumex drip. Resume Bumex 2 mg IV twice daily tomorrow.
[2024-09-12 16:32] LABS: POC Glucose,Bedside 182 (70-110)
[2024-09-12] MEDS: VANCOMYCIN HCL 2,500 MG in 0.9 % SODIUM CHLORIDE 500 ML 250 MG IV (17:15)
--- NOTE | 2024-09-12 20:05 | PC.NURSE ---
PATIENT ALERT AND ORIENTED X4, VSS. PATIENT HAS REPORTED PAIN THROUGHOUT THE SHIFT, TREATED PER MAR. PATIENT HAS ALSO COMPLAINED OF NAUSEA THROUGHOUT THE SHIFT AND HAS BEEN DRY HEAVING. NAUSEA TREATED PER MAR. THIS NURSE WAS UNABLE TO OBTAIN PICTURES OF CHRONIC WOUNDS TO BILATERAL LOWER EXTREMITIES DUE TO NEW DRESSINGS APPLIED BY WOUND CARE STAFF. PATIENT REMAINS ON BUMEX DRIP AT 20ML/HR, MALE EXTERNAL CATHETER APPLIED. 1800ML FLUID RESTRICTION. CALLED TO REQUEST ADDITIONAL IV ACCESS GUIDED BY ULTRASOUND.
--- NOTE | 2024-09-12 21:04 | PC.NURSE ---
Acute Change in Patient's Status Upon assessment around 21:00, the patient was very feeling nauseous (patient stated that his nausea occurred very suddenly after returning from the bathroom), appeared to be pallor in skin color and [id number] overall, and stated that he was not feeling good at all. Vital sign assessments were not within a desirable range (see vital sign assessments at 20:00). Glucose was checked; the reading was 202. Heart rate irregular, respirations slow, oxygen saturations decreased on room air. servomechanism assembler in place. Carlitos Carl APRN was paged around 21:06 about the patient's change in status, glucose reading, and undesirable vital signs. Datascope was applied to the patient, vital sign assessments set to circulate every 15 minutes. Carlitos Carl APRN requested to place the patient onto 2 L of oxygen via nasal cannula as well for an O2 saturation goal of > 93%. Gabapentin was held for tonight due to change in status and vital signs. Bumex drip had been discontinued during the previous shift and was not infusing during any of this shift. A 500 cc normal saline bolus was ordered. An EKG was performed at 21:11 by Aarti TOWNSEND and Aarti TOWNSEND. Jose Gleason RN (charge nurse) and Carlitos Carl APRN arrived at the bedside, along with additional RNs and SRNAs to help with the patient. Crash cart outside room. Carlitos Carl APRN reviewed the EKG result. Patient was assisted back into the bed using the mechanical temitope lift. He was unable to ambulate or stand safely for longer than 1 minute due to weakness and altered consciousness + lightheadedness. Patient's heart rate continues to remain within the 30s and 40s range. Oxygen saturations 99% to 100% on 2 L. Scheduled medications (except gabapentin) were able to be administered per MAR at 21:33. Additional vital sign assessments documented accordingly. Bolus of 500 cc infusing at 500 mL/hr (initially) at 21:34, decreased to 100 mL/hr at 22:00 per MD/GLASS DRILLER. Patient remains drowsy and lethargic, but is still aware of his situation and surroundings at this time. Zofran was administered for nausea per MAR at 22:05. Blood pressure readings continue to trend down (see vital sign assessments). Report was called to Santos Lloyd RN in the ICU at around 22:14. Patient was transferred to the ICU (room 266) around 22:20 for declining condition and critical care orders per Carlitos Carl APRN.
--- NOTE | 2024-09-12 21:11 | ECG_ITS ---
APPROVED REPORT Exam: Resting ECG HR:34 bpm ECG Measurements Heart Rate 34 AXES QRSd 109 QRS 69 QT 499 T 42 QTc 395 Conclusion ATRIAL FIBRILLATION WITH SLOW VENTRICULAR RESPONSE LOW QRS VOLTAGE IN PRECORDIAL LEADS [QRS DEFLECTION < 1.0 mV IN CHEST LEADS] POSSIBLE ANTERIOR MYOCARDIAL INFARCTION , PROBABLY OLD [30 ms Q WAVE IN V3/V4, OR R < 0.2 mV IN V4] CRITICAL TEST RESULT UNCONFIRMED REPORT Electronically signed by : Abimael Zee MD 09/13/2024 09:20:00
[2024-09-12] MEDS: ENOXAPARIN 60MG/0.6ML SYRINGE 60 MG SUBCUT (21:33)
[2024-09-12] MEDS: PANTOPRAZOLE 40MG TABLET 40 MG PO (21:33)
[2024-09-12] MEDS: 0.9 % SODIUM CHLORIDE 1000ML 1,000 ML 500 ML IV (21:36)
[2024-09-12 22:03] LABS: POC Glucose,Bedside 201 (70-110)
--- NOTE | 2024-09-12 22:37 | PC.NURSE ---
Pt arrived on unit @ 2210 M Funes SRNA
--- NOTE | 2024-09-12 23:17 | P.EN_ITS ---
At approximately at 2100 floor nurse gave me a call that the patient's heart rate had decreased below 40. Also that blood pressure was low. Patient had been up to the bathroom became weak was able to be put into a wheelchair. On arrival found the patient appeared pale but he was alert oriented talking with me heart rate between 34 and 42 bpm twelve-lead EKG done which showed a staci cardia with atrial fibs which is chronic for him. Blood pressure going into the 70 systolic to as high as upper 80s systolic. Was placed on oxygen but O2 saturations remained at 100%, lift was used to put the patient back to the bed. Dr. Wu was updated by phone. exam patient was pale he is looking a little better now that we moved over to the ICU but he remains nauseated holding onto a emesis bag he has received extra Zofran. Blood pressure and pulse slightly elevated but still bradycardic, norepinephrine has not been started and no atropine has been used yet. Plan patient is sitting on the side of the bed sitting up he is talking with me but we will draw a troponin and CMP we will try Reglan 5 mg IV to see if will help with this nausea as it may be more of diabetic gastroparesis. ICU nurses are in the room with him right now if blood pressure was too low or have a ER in order for the norepinephrine and for atropine use as needed. 23:21 will await results of labs for further action. 12: all lab was returned with potassium being at 6.1 normally at about 5.4. This lab has been drawn since the patient had dropped his pulse down into the 30s which is now back into the 70s, blood pressure systolic had been in 80 and sometimes slightly lower for a period of time to getting over to the ICU now around 110. Question whether the patient become acidotic during this severe br adycardic episode.. Patient is doing well at this time he is resting well he is color is looking better his vital signs are much better. Will wait and draw labs again in the morning to see what the potassium is as the patient is stable. Nursing is made aware of this will have a standing order for 20 units of regular insulin followed by 1 amp of glucose and also 150 cc bag of calcium if for some reason the patient did become symptomatic. This would be to draw the potassium back into the cells in case this was an acidotic event and also then keep the patient's blood sugars from really falling below 200 as the patient's blood sugars are usually much higher I do not want to take them below 200 and a rapid rate anyway. Once again the patient is stable at this time sitting up in bed color is much better alert interactive and showing no distress. 02:30 nursing notified me that the patient still has nausea. Not time for the Zofran yet. But nurse noted that the 1 dose of Reglan worked very well we will start 5 mg Reglan every every 6 hours as needed nausea or vomiting, increase to 10 mg if needed. There is some research showing that it works well for diabetic gastroparesis hopefully this medication will be of benefit to the patient
[2024-09-12] MEDS: METOCLOPRAMIDE HCL 10MG/2ML VIAL 5 MG IVP (23:27)
[2024-09-12 23:54] LABS: Alanine Aminotransferase 14 U/L (12-78); Albumin Level 3.6 g/dl (3.5-5.0); Albumin/Globulin Ratio 0.9 (1.1-1.8); Alkaline Phosphatase 120 U/L (38-126); Anion Gap 14.1 mEq/L (5-15); Aspartate Amino Transferase 16 U/L (17-59); Bilirubin,Total 0.5 mg/dl (0.2-1.3); Blood Urea Nitrogen 73 mg/dl (9-20); Calcium 9.3 mg/dl (8.4-10.2); Carbon Dioxide 21 mmol/L (22.0-30.0); Chloride 101 mmol/L (98-107); Creatinine Clearance Estimated 31 mL/min (50-200); Estimated Glomerular Filt Rate 22 ml/min (>60); GFR (African American) 27 ML/MIN (>60); Globulin 3.8 g/dL (1.3-3.2); Glucose 196 mg/dl (74-100); Sodium 130 mmol/L (136-145); Total Protein,Serum 7.4 g/dl (6.3-8.2)
[2024-09-13] VITALS (31 sets, daily range): BP systolic 75–162; BP diastolic 39–94; PULSE 33–93; RESP 12–17; TEMP 36.3–36.7; O2SAT 95–99; BMI 51.0
[2024-09-13 00:01] LABS: Potassium 6.1 mmoL/L (3.5-5.1)
[2024-09-13 00:06] LABS: Troponin I < 0.01 ng/ml (0.00-0.034)
--- NOTE | 2024-09-13 01:32 | PC.NURSE ---
Hospitalist Tony was notified of pts potassium lab value of 6.1. Tony wanted to wait until AM labs were drawn unless pt declines tonight and then orders will be placed.
[2024-09-13] MEDS: METOCLOPRAMIDE HCL 10MG/2ML VIAL 5 MG IVP (02:33)
[2024-09-13] MEDS: ACETAMINOPHEN 325MG TAB 650 MG PO (03:44)
[2024-09-13] MEDS: CEFEPIME HCL 2 GM in 0.9 % SODIUM CHLORIDE 100 ML IV (04:02)
[2024-09-13] MEDS: VANCOMYCIN HCL 2,500 MG in 0.9 % SODIUM CHLORIDE 500 ML 250 MG IV (04:58)
[2024-09-13 05:18] LABS: POC Glucose,Bedside 213 (70-110)
[2024-09-13] MEDS: humaLOG 100 UNITS/ML 10ML VIAL (SSI) 15 UNIT SUBCUT ×2 (06:14→11:39)
[2024-09-13] MEDS: humaLOG 100 UNITS/ML 10ML VIAL (SSI) SUBCUT ×2 (06:18→11:40)
[2024-09-13 06:20] LABS: Basophils # 0.1 K/mm3 (0-0.2); Basophils % 0.3 % (0.1-2.0); Hematocrit 31.9 % (42.0-52.0); Immature Granulocytes # 0.86 10^3uL; Immature Granulocytes % 3.7 %; Lymphocytes # 1.7 K/mm3 (0.7-4.5); Lymphocytes % 7.2 % (10-50); Mean Corpuscular HGB Conc 28.2 g/dL (31.8-35.4); Mean Corpuscular Hemoglobin 21.4 pg (27.0-31.2); Mean Corpuscular Volume 75.8 fl (80-94); Mean Platelet Volume 8.9 fl (7.4-10.4); Monocytes % 4.2 % (1.7-9.3); Neutrophils # 19.8 K/mm3 (1.8-7.8); Neutrophils % 84.6 % (37.0-80.0); Nucleated Red Blood Cells # 0.42 10^3/uL; Nucleated Red Blood Cells % 1.8 %; Platelet Count 653 K/mm3 (142-424); Red Blood Count 4.21 M/mm3 (4.60-6.20); Red Cell Distribution Width 17.1 % (11.5-17.5); Red Cell Distribution Width-SD 46.2 fL; White Blood Count 23.4 K/mm3 (4.8-10.8)
[2024-09-13 06:24] LABS: Albumin Level 3.6 g/dl (3.5-5.0); Chloride 102 mmol/L (98-107)
[2024-09-13 06:27] LABS: Blood Urea Nitrogen 77 mg/dl (9-20); Calcium 9.2 mg/dl (8.4-10.2); Carbon Dioxide 17 mmol/L (22.0-30.0); Creatinine Clearance Estimated 27 mL/min (50-200); Estimated Glomerular Filt Rate 19 ml/min (>60); GFR (African American) 23 ML/MIN (>60); Globulin 3.7 g/dL (1.3-3.2); Glucose 248 mg/dl (74-100); Total Protein,Serum 7.3 g/dl (6.3-8.2)
[2024-09-13 06:28] LABS: Alanine Aminotransferase 64 U/L (12-78); Alkaline Phosphatase 141 U/L (38-126); Aspartate Amino Transferase 89 U/L (17-59); Bilirubin,Total 0.5 mg/dl (0.2-1.3)
[2024-09-13 06:29] LABS: Magnesium 2.2 mg/dl (1.6-2.3)
[2024-09-13 06:37] LABS: MANUAL DIFFERENTIAL MANUAL DIFFERENTIAL (MANUAL DIFF)
[2024-09-13 06:45] LABS: Potassium 6.8 mmoL/L (3.5-5.1)
[2024-09-13 06:49] LABS: Anion Gap 17.8 mEq/L (5-15); Sodium 130 mmol/L (136-145)
--- NOTE | 2024-09-13 07:12 | P.PN_ITS ---
Subjective *Date: 09/13/24 *Time: 07:12 Interval history: 09/13/24: Patient had an bradycardia event yesterday and was moved to the ICU, where he is still having low blood pressures and heart rate between 34-42bpm. He seems to be alert and talking this morning, finished eating his breakfast, HR now at low 50's. Ortho Exam (Inpt) Vital signs and Labs for Last 24 Hours: Temp Pulse Resp BP Pulse Ox O2 Del Method O2 Flow Rate 97.5 F L 37 L 14 99/83 L 96 Room Air 2 09/13/24 04:00 09/13/24 06:00 09/13/24 06:00 09/13/24 06:00 09/13/24 06:00 09/13/24 06:00 09/13/24 02:00 Laboratory Results - last 24 hr 09/12/24 06:40: WBC 12.2 H, RBC 3.62 L, Hgb 8.1 L, Hct 26.7 L, MCV 73.8 L, MCH 22.4 L, MCHC 30.3 L, RDW 16.6, Plt Count 492 H, MPV 8.7, Neut % (Auto) 73.4, Lymph % (Auto) 16.2, [place] % (Auto) 6.7, Eos % (Auto) 1.0, Baso % (Auto) 0.4, Neut # (Auto) 9.0 H, Lymph # (Auto) 2.0, [place] # (Auto) 0.8, Eos # (Auto) 0.1, Baso # (Auto) 0.1, Sodium 130 L, Potassium 5.2 H, Chloride 103, Carbon Dioxide 23, Anion Gap 9.2, BUN 63 H, Creatinine 2.20 H D, Estimated Creat Clear 41, Estimated GFR 30 L, Est GFR ( Amer) 37 L D, Glucose 271 H, Calcium 10.0, Phosphorus 5.4 H, Magnesium 2.0, Total Bilirubin 0.3, AST 15 L, ALT 13, Alkaline Phosphatase 117, Total Protein 6.4, Albumin 3.1 L, Globulin 3.3 H, Albumin/Globulin Ratio 0.9 L 09/12/24 12:17: POC Glucose 183 H 09/12/24 16:21: POC Glucose 182 H 09/12/24 20:59: POC Glucose 201 H 09/12/24 23:36: Sodium 130 L, Potassium 6.1 H*, Chloride 101, Carbon Dioxide 21 L, Anion Gap 14.1, BUN 73 H, Creatinine 2.90 H D, Estimated Creat Clear 31, Estimated GFR 22 L, Est GFR ( Amer) 27 L D, Glucose 196 H D, Calcium 9.3, Total Bilirubin 0.5, AST 16 L, ALT 14, Alkaline Phosphatase 120, Troponin I < 0.01, Total Protein 7.4, Albumin 3.6 D, Globulin 3.8 H, Albumin/Globulin Ratio 0.9 L 09/13/24 05:06: POC Glucose 213 H 09/13/24 05:37: WBC 23.4 H* D, RBC 4.21 L, Hct 31.9 L, MCV 75.8 L, MCH 21.4 L, MCHC 28.2 L, RDW 17.1, Plt Count 653 H D, MPV 8.9, Neut % (Auto) 84.6 H, Lymph % (Auto) 7.2 L, [place] % (Auto) 4.2, Eos % (Auto) 0.0 L, Baso % (Auto) 0.3, Neut # (Auto) 19.8 H, Lymph # (Auto) 1.7, [place] # (Auto) 1.0, Eos # (Auto) 0.0, Baso # (Auto) 0.1, Sodium 130 L, Potassium 6.8 H*, Chloride 102, Carbon Dioxide 17 L, Anion Gap 17.8 H, BUN 77 H, Creatinine 3.30 H, Estimated Creat Clear 27, Estimated GFR 19 L*, Est GFR ( Amer) 23 L, Glucose 248 H D, Calcium 9.2, Magnesium 2.2, Total Bilirubin 0.5, AST 89 H D, ALT 64 D, Alkaline Phosphatase 141 H, Total Protein 7.3, Albumin 3.6, Globulin 3.7 H, Albumin/Globulin Ratio 1.0 L I & O for Labs for Last 24 Hours: Intake & Output 09/10/24 09/11/24 09/12/24 09/13/24 23:59 23:59 23:59 23:59 Intake Total 1021.833 / 3851.967 4144 / 1486 722 / 722 Output Total 950 / 950 1450 / 1450 Balance 71.833 / 71.833 36 / 36 722 / 722 Weight 400 lb 417 lb 7 oz 416 lb 10.778 oz 410 lb 14.4 oz Microbiology Reports for the Last 24 Hours: Microbiology 09/11/24 00:38 Blood Blood Culture - Preliminary NO GROWTH AFTER 48 HOURS 09/10/24 22:51 Blood Blood Culture - Preliminary NO GROWTH AFTER 48 HOURS 09/12/24 07:47 Foot,Right - Wound Gram Stain - Final 09/12/24 07:47 Leg,Left - Drainage Gram Stain - Final 09/11/24 01:58 Leg,Left Gram Stain - Final 09/11/24 01:58 Leg,Left Wound Culture - Preliminary Constitutional: Present no acute distress and cooperative Head: Present normocephalic Eyes: Present as per HPI Neck: Present trachea midline Respiratory: Present normal respiratory effort Cardiac: Present pedal pulses present Comment:: HR improving now in the low 50's. Comments:: deferred (male): Present deferred Extremities: Present edema (B/l lower legs cellulitis/lymphedema wraps intact, no drainage or strikethrough noted. ) Skin: Present erythema, dry, warm and wounds Comment:: B/L LE edema, erythema with weeping drainage from both legs. Multiple areas of loose peeling sloughing skin to both anterior ankles. Right 2nd toe DFU, sub 5th met DFU. -Dressing to b/l lower legs were done per [facility] yesterday and remain intact today with no drainage seen on outer dressings. Neuro: Present oriented x 3; Absent Sensory Function Intact Comment:: Some decreased/absent sensation to plantar feet secondary to DM neuropathy. Ankle: bilateral: erythema, bilateral: swelling and bilateral: tenderness (tenderness (L>R LE)) Feet/Toes: bilateral: amputation (amputation (R 4th toe, L 5th toe amp)), bilateral: erythema and bilateral: tenderness ((L>R LE)) Assessment and Plan *Assessment and plan (1) Diabetic neuropathy: Status: Acute Qualifiers: Diabetes mellitus type: type 2 Diabetes mellitus complication detail: diabetic polyneuropathy Qualified Code(s): E11.42 - Type 2 diabetes mellitus with diabetic polyneuropathy Category: Medical Code(s): E11.40 - Type 2 diabetes mellitus with diabetic neuropathy, unspecified (2) Peripheral vascular disease: Status: Acute Category: Medical Code(s): I73.9 - Peripheral vascular disease, unspecified (3) Foreign body of right heel: Status: Acute Category: Medical Code(s): S90.851A - Superficial foreign body, right foot, initial encounter (4) Cellulitis: Status: Acute Qualifiers: Site of cellulitis: extremity Site of cellulitis of extremity: lower extremity Laterality: unspecified laterality Qualified Code(s): L03.119 - Cellulitis of unspecified part of limb Category: Medical Code(s): L03.90 - Cellulitis, unspecified (5) History of amputation of right fourth toe: Status: Acute Category: Surgical Code(s): Z89.421 - Acquired absence of other right toe(s) (6) History of amputation of left fifth toe: Status: Acute Category: Surgical Code(s): Z89.422 - Acquired absence of other left toe(s) (7) Peripheral arterial disease: Status: Acute Category: Medical Code(s): I73.9 - Peripheral vascular disease, unspecified (8) Venous stasis ulcer of both lower extremities without varicose veins: Status: Acute Category: Medical Code(s): I87.2 - Venous insufficiency (chronic) (peripheral); L97.919 - Non-pressure chronic ulcer of unspecified part of right lower leg with unspecified severity; L97.929 - Non-pressure chronic ulcer of unspecified part of left lower leg with unspecified severity (9) Morbid obesity with BMI of 50.0-59.9, adult: Status: Acute Category: Medical Code(s): E66.01 - Morbid (severe) obesity due to excess calories; Z68.43 - Body mass index [BMI] 50.0-59.9, adult (10) Diabetic ulcer of right foot: Status: Acute Qualifiers: Diabetic foot ulcer location: other Diabetes mellitus type: type 2 Non-pressure ulcer stage: with fat layer exposed Qualified Code(s): E11.621 - Type 2 diabetes mellitus with foot ulcer; L97.512 - Non-pressure chronic ulcer of other part of right foot with fat layer exposed Category: Medical Code(s): E11.621 - Type 2 diabetes mellitus with foot ulcer; L97.519 - Non-pressure chronic ulcer of other part of right foot with unspecified severity Plan Specimens: 08/10/24, Right leg WCx (Dr Martinez): Proteus mirabilis, Pseudomonas aeruginosa, Klebsiella oxytoca 09/12/24, Right leg WCx: pending 09/12/24, Left leg WCx: pending Labs: 09/10/24: wbc 12, esr 66, crp 100.1, cr 1.8, gfr 38, glucose 380, albumin 3.7, Ha1c 10.5% 09/12/24: wbc 12.2, cr 1.4, gfr 51, glucose 320/205, albumin 3.0 09/13/24:wbc 23.4, cr. 3.3 gfr 19, glucose 248, albumin 3.6 09/12/24, Podiatry Consult: -B/L LE cellulitis. -New to [facility] Podiatry but sees Pete at [facility]. -Podiatry [employer] and I evaluated patient this am. -I independently reviewed imaging 09/11/24, 3v b/l foot, tib-fib: no acute fracture, no obvious cortial erosions/OM, small FB to right heel. -Suspect FB to heel is chronic. No open to right heel. Given patient large body habitus, uncontrolled diabetes with an A1c of 10.5, history of noncompliance, active infection, no opening to that area, potential difficulty with surgical exploration and foreign body removal to the site-I would not recommend FB removal. -Labs, previous WCx reviewed. -B/L dressing removed, drainage/strike thru noted to both dsg. -Patient was not pleasant and wanted Pete to evaluate since he has been seeing him. -Right foot DFU x2 sharp excisional debridement with 15' blade full thickness. see skin PE for details. -Xerofrom, betadine soaked gauze laid over open wounds. -B/L dsg not fully applied, so Pete could access. -Discussed plan of care with Pete-[facility]. -Discussed plan of care with Dr. Wu. -Continue IV abx based on 08/10/24 WCx results. -No plan for Podiatry surgery. -Defer wound care and dressing changes to [facility]. -Request [facility] workup: ABIs/arterial doppler, CTA, etc. -Podiatry will coordinate with Pete for continued care (patient requesting wound care team. 09/13/24: Podiatry Consult: -B/L LE cellulitis -B/L dressing were not removed,no drainage or strike thru noted on dressings. -Patient sees Pete at [facility] -Continue IV abx based on 08/10/24 WCx results. -No plan for Podiatry surgery. -Discussed plan of care with Pete-[facility]. -Discussed plan of care with Dr. Wu and Dr. Martin -Defer wound care and dressing changes to [facility]. -All orders and recommendations per Dr. Romero
[2024-09-13] MEDS: INSULIN HUMAN REGULAR 100 UNITS/ML 10ML VIAL 20 UNIT IV (07:16)
[2024-09-13] MEDS: CALCIUM GLUC IN NACL, ISO-OSM 1 GM/50 ML BAG IV (07:17)
[2024-09-13] MEDS: DEXTROSE 50% 50ML SYRINGE (CRASH CART) 50 ML IV (07:17)
[2024-09-13 07:19] LABS: Hypochromasia 2+; Lymphocytes % 12 % (10-50); Monocytes % 3 % (2-9); Neutrophils % 85 % (42-76); Nucleated Red Blood Cells 2; Platelet Estimate Moderate Increase; Total Cells Counted 100
[2024-09-13 07:20] LABS: Microcytosis 1+
[2024-09-13 07:42] LABS: POC Glucose,Bedside 278 (70-110)
[2024-09-13] MEDS: GABAPENTIN 400MG CAPSULE 400 MG PO ×2 (08:20→20:04)
[2024-09-13] MEDS: INSULIN GLARGINE 100 UNITS/ML 3ML FLEXPEN 75 UNIT SUBCUT ×2 (08:21→20:04)
[2024-09-13] MEDS: PARoxetine 20MG TABLET 20 MG PO (08:21)
[2024-09-13] MEDS: ASPIRIN EC 81MG TABLET 81 MG PO (08:21)
[2024-09-13] MEDS: ENOXAPARIN 60MG/0.6ML SYRINGE 60 MG SUBCUT (08:24)
--- NOTE | 2024-09-13 09:04 | CA_ITS ---
APPROVED REPORT EXAM: Limited 2D Echocardiogram Beater Operator: MILO Lane, RVS Ht: 6 ft 2 in Wt: 410lbs BSA: 2.95 BP: 99/83 mmHg Indications: [place], Cellulitis, DM, HTN, HLD, Palpitations, SOB Echo Enhancing Agent Comments: Patient intolerant to test and became hostile, threatening and unwilling to allow exam. Other Information Study Quality: Technically Difficult. Technically limited study due to body habitus. Conclusion This is a very limited TTE to look for LV systolic function. Very limited with those are obtained due to poor acoustic windows. Patient also declined further imaging. Grossly, the left ventricle is normal in size. There is increased LV wall thickness. The global LV systolic function is grossly normal in the available views. LVEF cannot be estimated due to technically difficult study. Electronically signed by : Shannon Crocker MD 09/13/2024 13:18:11
--- NOTE | 2024-09-13 09:44 | XR_ITS ---
FINAL REPORT CLINICAL HISTORY: elevated wbc COMPARISON: 09/11/2024 FINDINGS: A portable view of the chest was obtained. The heart is stable in size. The esophagus within normal limits. The lungs are clear. There is no pleural effusion or pneumothorax. Postoperative changes in the thoracic spine again noted. IMPRESSION: No acute process on this portable exam. Reviewed, Interpreted and Dictated by Samara Buenrostro MD Transcribed by Amanda Landa Authenticated and [facility]
--- NOTE | 2024-09-13 09:54 | EXP.CARD.PN ---
Subjective Subjective Date: 09/13/24 Time: 08:00 Principal diagnosis: Volume overload and LE edema Exam Data for Last 24 hours Vital signs and Labs for Last 24 Hours: Temp Pulse Resp BP Pulse Ox O2 Del Method O2 Flow Rate 97.5 F L 53 L 16 122/76 97 Room Air 2 09/13/24 04:00 09/13/24 09:01 09/13/24 09:01 09/13/24 09:01 09/13/24 09:01 09/13/24 09:01 09/13/24 02:00 Laboratory Results - last 24 hr 09/12/24 12:17: POC Glucose 183 H 09/12/24 16:21: POC Glucose 182 H 09/12/24 20:59: POC Glucose 201 H 09/12/24 23:36: Sodium 130 L, Potassium 6.1 H*, Chloride 101, Carbon Dioxide 21 L, Anion Gap 14.1, BUN 73 H, Creatinine 2.90 H D, Estimated Creat Clear 31, Estimated GFR 22 L, Est GFR ( Amer) 27 L D, Glucose 196 H D, Calcium 9.3, Total Bilirubin 0.5, AST 16 L, ALT 14, Alkaline Phosphatase 120, Troponin I < 0.01, Total Protein 7.4, Albumin 3.6 D, Globulin 3.8 H, Albumin/Globulin Ratio 0.9 L 09/13/24 05:06: POC Glucose 213 H 09/13/24 05:37: WBC 23.4 H* D, RBC 4.21 L, Hgb 9.0 L D, Hct 31.9 L, MCV 75.8 L, MCH 21.4 L, MCHC 28.2 L, RDW 17.1, Plt Count 653 H D, MPV 8.9, Neut % (Auto) 84.6 H, Lymph % (Auto) 7.2 L, [place] % (Auto) 4.2, Eos % (Auto) 0.0 L, Baso % (Auto) 0.3, Neut # (Auto) 19.8 H, Lymph # (Auto) 1.7, [place] # (Auto) 1.0, Eos # (Auto) 0.0, Baso # (Auto) 0.1, Total Counted 100, Neutrophils % (Manual) 85 H, Lymphocytes % (Manual) 12, Monocytes % (Manual) 3, Nucleated RBCs 2, Platelet Estimate Moderate increase, Hypochromasia 2+, Microcytosis 1+, Sodium 130 L, Potassium 6.8 H*, Chloride 102, Carbon Dioxide 17 L, Anion Gap 17.8 H, BUN 77 H, Creatinine 3.30 H, Estimated Creat Clear 27, Estimated GFR 19 L*, Est GFR ( Amer) 23 L, Glucose 248 H D, Calcium 9.2, Magnesium 2.2, Total Bilirubin 0.5, AST 89 H D, ALT 64 D, Alkaline Phosphatase 141 H, Total Protein 7.3, Albumin 3.6, Globulin 3.7 H, Albumin/Globulin Ratio 1.0 L 09/13/24 07:33: POC Glucose 278 H I & O for Last 24 hours: Intake & Output 09/10/24 09/11/24 09/12/24 09/13/24 23:59 23:59 23:59 23:59 Intake Total 1021.833 / 0404.563 9438 / 2208 1652 / 1652 Output Total 950 / 950 1450 / 1450 Balance 71.833 / 271.833 36 / 758 1652 / 1652 Weight 400 lb 417 lb 7 oz 416 lb 10.778 oz 410 lb 14.4 oz Microbiology Reports for the Last 24 Hours: Microbiology 09/12/24 07:47 Foot,Right - Wound Gram Stain - Final 09/12/24 07:47 Foot,Right - Wound Wound Culture - Preliminary 09/12/24 07:47 Leg,Left - Drainage Gram Stain - Final 09/12/24 07:47 Leg,Left - Drainage Wound Culture - Preliminary 09/11/24 00:38 Blood Blood Culture - Preliminary NO GROWTH AFTER 48 HOURS 09/10/24 22:51 Blood Blood Culture - Preliminary NO GROWTH AFTER 48 HOURS 09/11/24 01:58 Leg,Left Gram Stain - Final 09/11/24 01:58 Leg,Left Wound Culture - Preliminary Progress Note: A&P Assessment and plan (1) Diabetic neuropathy: Status: Acute (2) Peripheral vascular disease: Status: Acute (3) Foreign body of right heel: Status: Acute (4) Cellulitis: Status: Acute (5) History of amputation of right fourth toe: Status: Acute (6) History of amputation of left fifth toe: Status: Acute (7) Peripheral arterial disease: Status: Acute (8) Venous stasis ulcer of both lower extremities without varicose veins: Status: Acute (9) Morbid obesity with BMI of 50.0-59.9, adult: Status: Acute (10) Diabetic ulcer of right foot: Status: Acute
--- NOTE | 2024-09-13 10:50 | ECG_ITS ---
APPROVED REPORT Exam: Resting ECG HR:49 bpm ECG Measurements Heart Rate 49 AXES QRSd 112 QRS 74 QT 436 T 42 QTc 408 Conclusion ATRIAL FIBRILLATION WITH SLOW VENTRICULAR RESPONSE LOW QRS VOLTAGE IN PRECORDIAL LEADS [QRS DEFLECTION < 1.0 mV IN CHEST LEADS] POSSIBLE ANTERIOR MYOCARDIAL INFARCTION , PROBABLY OLD [30 ms Q WAVE IN V3/V4, OR R < 0.2 mV IN V4] ABNORMAL RHYTHM ECG UNCONFIRMED REPORT Electronically signed by : Abimael Zee MD 09/15/2024 08:38:32
[2024-09-13] MEDS: 0.9 % SODIUM CHLORIDE 1000ML 500 ML 250 ML IV (11:34)
--- NOTE | 2024-09-13 13:34 | P.PN_ITS ---
Subjective Subjective Date: 09/13/24 Time: 08:00 Principal diagnosis: Volume overload and LE edema Interval history: Patient had an episode last night where he became bradycardic and hypotensive, please see event note. Patient was moved to the ICU unit. This morning he remains bradycardic and hypotensive. Morning labs reviewed. Exam Data for Last 24 hours Vital signs and Labs for Last 24 Hours: Temp Pulse Resp BP Pulse Ox O2 Del Method O2 Flow Rate 97.8 F 54 L 16 133/75 96 Room Air 2 09/13/24 12:00 09/13/24 13:01 09/13/24 13:01 09/13/24 13:01 09/13/24 13:01 09/13/24 13:01 09/13/24 02:00 Laboratory Results - last 24 hr 09/12/24 16:21: POC Glucose 182 H 09/12/24 20:59: POC Glucose 201 H 09/12/24 23:36: Sodium 130 L, Potassium 6.1 H*, Chloride 101, Carbon Dioxide 21 L, Anion Gap 14.1, BUN 73 H, Creatinine 2.90 H D, Estimated Creat Clear 31, Estimated GFR 22 L, Est GFR ( Amer) 27 L D, Glucose 196 H D, Calcium 9.3, Total Bilirubin 0.5, AST 16 L, ALT 14, Alkaline Phosphatase 120, Troponin I < 0.01, Total Protein 7.4, Albumin 3.6 D, Globulin 3.8 H, Albumin/Globulin Ratio 0.9 L 09/13/24 05:06: POC Glucose 213 H 09/13/24 05:37: WBC 23.4 H* D, RBC 4.21 L, Hgb 9.0 L D, Hct 31.9 L, MCV 75.8 L, MCH 21.4 L, MCHC 28.2 L, RDW 17.1, Plt Count 653 H D, MPV 8.9, Neut % (Auto) 84.6 H, Lymph % (Auto) 7.2 L, [place] % (Auto) 4.2, Eos % (Auto) 0.0 L, Baso % (Auto) 0.3, Neut # (Auto) 19.8 H, Lymph # (Auto) 1.7, [place] # (Auto) 1.0, Eos # (Auto) 0.0, Baso # (Auto) 0.1, Total Counted 100, Neutrophils % (Manual) 85 H, L ymphocytes % (Manual) 12, Monocytes % (Manual) 3, Nucleated RBCs 2, Platelet Estimate Moderate increase, Hypochromasia 2+, Microcytosis 1+, Sodium 130 L, Potassium 6.8 H*, Chloride 102, Carbon Dioxide 17 L, Anion Gap 17.8 H, BUN 77 H, Creatinine 3.30 H, Estimated Creat Clear 27, Estimated GFR 19 L*, Est GFR ( Amer) 23 L, Glucose 248 H D, Calcium 9.2, Magnesium 2.2, Total Bilirubin 0.5, AST 89 H D, ALT 64 D, Alkaline Phosphatase 141 H, Total Protein 7.3, Albumin 3.6, Globulin 3.7 H, Albumin/Globulin Ratio 1.0 L 09/13/24 07:33: POC Glucose 278 H I & O for Last 24 hours: Intake & Output 09/10/24 09/11/24 09/12/24 09/13/24 23:59 23:59 23:59 23:59 Intake Total 1021.833 / 3558.752 0377 / 2208 1757 / 1757 Output Total 950 / 950 1450 / 1450 200 / 200 Balance 71.833 / 271.833 36 / 758 1557 / 1557 Weight 400 lb 417 lb 7 oz 416 lb 10.778 oz 410 lb 14.4 oz Microbiology Reports for the Last 24 Hours: Microbiology 09/11/24 01:58 Leg,Left Gram Stain - Final 09/11/24 01:58 Leg,Left Wound Culture - Preliminary Gram Negative Rods Gram Negative Rods#2 Gram Positive Cocci 09/12/24 07:47 Foot,Right - Wound Gram Stain - Final 09/12/24 07:47 Foot,Right - Wound Wound Culture - Preliminary 09/12/24 07:47 Leg,Left - Drainage Gram Stain - Final 09/12/24 07:47 Leg,Left - Drainage Wound Culture - Preliminary 09/11/24 00:38 Blood Blood Culture - Preliminary NO GROWTH AFTER 48 HOURS 09/10/24 22:51 Blood Blood Culture - Preliminary NO GROWTH AFTER 48 HOURS Constitutional Constitutional: no acute distress and obese Comments: Pale *Routine Respiratory Exam Respiratory: Present CTA bilaterally and symmetric chest movement *Routine Cardiovascular Exam Cardiovascular: Present RRR, Normal S1, Normal S2 and bradycardia *Routine Abdominal Exam Abdominal: Present soft and normoactive bowel sounds; Absent tenderness *Routine Extremities Exam Extremities: Present edema, full ROM and normal capillary refill *Routine Skin Exam Skin: Present intact, dry and warm Detailed Neck Exam: Thyroids Thyroid: Absent bruit Progress Note: A&P Assessment and plan (1) Diabetic neuropathy: Status: Acute (2) Peripheral vascular disease: Status: Acute (3) Foreign body of right heel: Status: Acute (4) Cellulitis: Status: Acute (5) History of amputation of right fourth toe: Status: Acute (6) History of amputation of left fifth toe: Status: Acute (7) Peripheral arterial disease: Status: Acute (8) Venous stasis ulcer of both lower extremities without varicose veins: Status: Acute (9) Morbid obesity with BMI of 50.0-59.9, adult: Status: Acute (10) Diabetic ulcer of right foot: Status: Acute Assessment and Plan Assessment and Plan for All Diagnoses:: Bradycardia Hypotension Concern for cardiogenic versus septic shock Acute kidney injury Heart rate in the 30s to 50s range- remains in A-fib Systolic blood pressure less than 110 Creatinine up to 3.3 from a baseline of 1.3 on admission Potassium 6.8 Troponins remain negative WBC 23 Repeat chest x-ray this morning remains clear Will defer management of possible septic shock to primary service Patient is not a candidate for right heart cath due to weight exceeding cath table limit Limited echo obtained today which shows the LV systolic function remains grossly normal. This is likely a result from overdiuresis along with use of multiple high dose AV blockers. Will hold all diuresing and AV blockers at this time. Give patient 500 normal saline bolus and monitor heart rate and blood pressure History of A-fib Chronic A-fib, remains staci AV blockers on hold Currently on Lovenox will need transitioned back to Eliquis or Xarelto prior to discharge home. CV summary 09/13/2024: Continue to hold AV blockers and diuresing today. Give 500 normal saline bolus. Continue to monitor heart rate and blood pressure. Blood pressure has continued to improve and is now in the 130s, pulse remains in the 50s. Patient is maintaining oxygen saturation of 96% on room air. He is afebrile. EF remains grossly normal. Chest x-ray is clear.
[2024-09-13 15:13] LABS: Chloride 102 mmol/L (98-107)
[2024-09-13 15:14] LABS: Albumin Level 3.5 g/dl (3.5-5.0); Sodium 131 mmol/L (136-145)
[2024-09-13 15:16] LABS: Creatinine Clearance Estimated 28 mL/min (50-200); Estimated Glomerular Filt Rate 20 ml/min (>60); GFR (African American) 24 ML/MIN (>60)
[2024-09-13 15:17] LABS: Alanine Aminotransferase 128 U/L (12-78); Alkaline Phosphatase 131 U/L (38-126); Aspartate Amino Transferase 237 U/L (17-59); Bilirubin,Total 0.4 mg/dl (0.2-1.3); Calcium 8.9 mg/dl (8.4-10.2); Carbon Dioxide 20 mmol/L (22.0-30.0); Globulin 3.5 g/dL (1.3-3.2); Glucose 190 mg/dl (74-100)
[2024-09-13 15:25] LABS: Blood Urea Nitrogen 80 mg/dl (9-20)
[2024-09-13] MEDS: SODIUM POLY SULFON 15GM/60ML ORAL.SUSP 30 GM PO ×2 (18:37→20:20)
--- NOTE | 2024-09-13 18:52 | PC.NURSE ---
Pt was assisted to the bsc by staff r/t stating he needs to have a BM. when assisting pt back to bed but was insistent on using his bidet from home. pt bidet was a pump sprayer. pt was informed that staff would not be using the device but would instead use wipes to clean the pt up. pt stated that he would use it himself. pt then proceeded to use his bidet from home. pt took the lid off asking staff to dump old water out and refill it with warm water. pt then proceeded to spill water all of floor and staff feet. it was noted that end of spray nozzle was covered in dry crusted feces appearing material. staff informed pt that from this point on, the bidet would not be used any longer as it was a potential infection control and patient/staff safety risk. manager switch was notified as well and also indicated that we would no longer be allowing pt to use device while an inpatient. item cleaned by staff and placed in closet with pt other belongings.
[2024-09-13] MEDS: PANTOPRAZOLE 40MG TABLET 40 MG PO (20:04)
[2024-09-13] MEDS: NYSTATIN TOPICAL POWDER 30GM 30 GM TP (21:23)
--- NOTE | 2024-09-13 22:20 | EXP.PN ---
Subjective *Date: 09/13/24 *Time: 22:20 Exam Data for Last 24 hours Vital signs and Labs for Last 24 Hours: Temp Pulse Resp BP Pulse Ox O2 Del Method O2 Flow Rate 97.6 F 64 12 137/81 97 Room Air 2 09/13/24 20:00 09/13/24 22:00 09/13/24 22:00 09/13/24 22:00 09/13/24 22:00 09/13/24 22:00 09/13/24 02:00 Laboratory Results - last 24 hr 09/12/24 23:36: Sodium 130 L, Potassium 6.1 H*, Chloride 101, Carbon Dioxide 21 L, Anion Gap 14.1, BUN 73 H, Creatinine 2.90 H D, Estimated Creat Clear 31, Estimated GFR 22 L, Est GFR ( Amer) 27 L D, Glucose 196 H D, Calcium 9.3, Total Bilirubin 0.5, AST 16 L, ALT 14, Alkaline Phosphatase 120, Troponin I < 0.01, Total Protein 7.4, Albumin 3.6 D, Globulin 3.8 H, Albumin/Globulin Ratio 0.9 L 09/13/24 05:06: POC Glucose 213 H 09/13/24 05:37: WBC 23.4 H* D, RBC 4.21 L, Hgb 9.0 L D, Hct 31.9 L, MCV 75.8 L, MCH 21.4 L, MCHC 28.2 L, RDW 17.1, Plt Count 653 H D, MPV 8.9, Neut % (Auto) 84.6 H, Lymph % (Auto) 7.2 L, [place] % (Auto) 4.2, Eos % (Auto) 0.0 L, Baso % (Auto) 0.3, Neut # (Auto) 19.8 H, Lymph # (Auto) 1.7, [place] # (Auto) 1.0, Eos # (Auto) 0.0, Baso # (Auto) 0.1, Total Counted 100, Neutrophils % (Manual) 85 H, Lymphocytes % (Manual) 12, Monocytes % (Manual) 3, Nucleated RBCs 2, Platelet Estimate Moderate increase, Hypochromasia 2+, Microcytosis 1+, Sodium 130 L, Potassium 6.8 H*, Chloride 102, Carbon Dioxide 17 L, Anion Gap 17.8 H, BUN 77 H, Creatinine 3.30 H, Estimated Creat Clear 27, Estimated GFR 19 L*, Est GFR ( Amer) 23 L, Glucose 248 H D, Calcium 9.2, Magnesium 2.2, Total Bilirubin 0.5, AST 89 H D, ALT 64 D, Alkaline Phosphatase 141 H, Total Protein 7.3, Albumin 3.6, Globulin 3.7 H, Albumin/Globulin Ratio 1.0 L 09/13/24 07:33: POC Glucose 278 H 09/13/24 14:57: Sodium 131 L, Potassium 6.0 H, Chloride 102, Carbon Dioxide 20 L, Anion Gap 15.0, BUN 80 H, Creatinine 3.20 H, Estimated Creat Clear 28, Estimated GFR 20 L, Est GFR ( Amer) 24 L, Glucose 190 H D, Calcium 8.9, Total Bilirubin 0.4, AST 237 H D, ALT 128 H D, Alkaline Phosphatase 131 H, Total Protein 7.0, Albumin 3.5, Globulin 3.5 H, Albumin/Globulin Ratio 1.0 L I & O for Last 24 hours: Intake & Output 09/10/24 09/11/24 09/12/24 09/13/24 23:59 23:59 23:59 23:59 Intake Total 1021.833 / 9882.804 4464 / 2208 2787 / 2787 Output Total 950 / 950 1450 / 1450 200 / 200 Balance 71.833 / 271.833 36 / 758 2587 / 2587 Weight 181.437 kg 189.346 kg 189 kg 186.381 kg Microbiology Reports for the Last 24 Hours: Microbiology 09/11/24 01:58 Leg,Left Gram Stain - Final 09/11/24 01:58 Leg,Left Wound Culture - Preliminary Gram Negative Rods Gram Negative Rods#2 Gram Positive Cocci 09/12/24 07:47 Foot,Right - Wound Gram Stain - Final 09/12/24 07:47 Foot,Right - Wound Wound Culture - Preliminary 09/12/24 07:47 Leg,Left - Drainage Gram Stain - Final 09/12/24 07:47 Leg,Left - Drainage Wound Culture - Preliminary 09/11/24 00:38 Blood Blood Culture - Preliminary NO GROWTH AFTER 48 HOURS 09/10/24 22:51 Blood Blood Culture - Preliminary NO GROWTH AFTER 48 HOURS Constitutional Constitutional: no acute distress and obese Comments: Pale *Routine Respiratory Exam Respiratory: Present CTA bilaterally and symmetric chest movement *Routine Cardiovascular Exam Cardiovascular: Present RRR, Normal S1, Normal S2 and bradycardia *Routine Abdominal Exam Abdominal: Present soft and normoactive bowel sounds; Absent tenderness *Routine Extremities Exam Extremities: Present edema, full ROM and normal capillary refill *Routine Skin Exam Skin: Present intact, dry and warm Detailed Neck Exam: Thyroids Thyroid: Absent bruit Assessment and Plan *Assessment and plan (1) Acute on chronic heart failure with preserved ejection fraction (HFpEF): Status: Acute Category: Medical Code(s): I50.33 - Acute on chronic diastolic (congestive) heart failure (2) Venous stasis ulcer of both lower extremities without varicose veins: Status: Acute Category: Medical Code(s): I87.2 - Venous insufficiency (chronic) (peripheral); L97.919 - Non-pressure chronic ulcer of unspecified part of right lower leg with unspecified severity; L97.929 - Non-pressure chronic ulcer of unspecified part of left lower leg with unspecified severity (3) Peripheral vascular disease: Status: Acute Category: Medical Code(s): I73.9 - Peripheral vascular disease, unspecified (4) Cellulitis: Status: Acute Qualifiers: Site of cellulitis: extremity Site of cellulitis of extremity: lower extremity Laterality: unspecified laterality Qualified Code(s): L03.119 - Cellulitis of unspecified part of limb Category: Medical Code(s): L03.90 - Cellulitis, unspecified (5) Hypercalcemia: Status: Acute Category: Medical Code(s): E83.52 - Hypercalcemia (6) Chronic wound: Status: Acute Category: Medical Code(s): T14.8XXA - Other injury of unspecified body region, initial encounter (7) Bilateral edema of lower extremity: Status: Acute Category: Medical Code(s): R60.0 - Localized edema (8) Atrial fibrillation with RVR: Status: Acute Category: Medical Code(s): I48.91 - Unspecified atrial fibrillation (9) Morbid obesity: Status: Acute Category: Medical Code(s): E66.01 - Morbid (severe) obesity due to excess calories (10) Diabetic neuropathy: Status: Acute Qualifiers: Diabetes mellitus type: type 2 Diabetes mellitus complication detail: diabetic polyneuropathy Qualified Code(s): E11.42 - Type 2 diabetes mellitus with diabetic polyneuropathy Category: Medical Code(s): E11.40 - Type 2 diabetes mellitus with diabetic neuropathy, unspecified (11) Morbid obesity with BMI of 50.0-59.9, adult: Status: Acute Category: Medical Code(s): E66.01 - Morbid (severe) obesity due to excess calories; Z68.43 - Body mass index [BMI] 50.0-59.9, adult (12) Volume overload: Status: Acute Qualifiers: Hypervolemia type: unspecified Qualified Code(s): E87.70 - Fluid overload, unspecified Category: Medical Code(s): E87.70 - Fluid overload, unspecified (13) Microcytic anemia: Status: Acute Category: Medical Code(s): D50.9 - Iron deficiency anemia, unspecified (14) Adult failure to thrive: Status: Acute Category: Medical Code(s): R62.7 - Adult failure to thrive (15) LORI (obstructive sleep apnea): Status: Acute Category: Medical Code(s): G47.33 - Obstructive sleep apnea (adult) (pediatric) (16) Diabetes mellitus: Status: Acute Qualifiers: Diabetes mellitus type: type 2 Diabetes mellitus skilled nursing insulin use: without meterman use Diabetes mellitus complication status: with hyperglycemia Qualified Code(s): E11.65 - Type 2 diabetes mellitus with hyperglycemia Category: Medical Code(s): E11.9 - Type 2 diabetes mellitus without complications (17) Sacral wound: Status: Acute Qualifiers: Encounter type: initial encounter Qualified Code(s): S31.000A - Unspecified open wound of lower back and pelvis without penetration into retroperitoneum, initial encounter Category: Medical Code(s): S31.000A - Unspecified open wound of lower back and pelvis without penetration into retroperitoneum, initial encounter Plan Bebeto Christiansen is a 64-year-old male with morbid obesity, acute on chronic HFpEF, volume overload, lower extremity erythema, stasis ulcerations. Presented with worsening cellulitis and drainage of his legs. Discussed case with ER physician, request admission for antibiotics and further management. Medicine agreed to admit for further care. Bump in creatinine today, will discontinue Bumex drip. Cardiology evaluating today to assist with fluid management. Continues to necessitate inpatient care. Problems addressed as follows: Acute on Chronic HFpEF Anasarca Atrial fibrillation Hypertension #ATN #Bradycardia - Heart rate appears controlled at this time. Appears frankly volume overloaded. BNP 1999 ? Unclear his volume status but legs look better with less edema. Given bump in creatinine, hold on further Bumex. ?Creatinine worsened to 3.3 from 2.9 yesterday. Likely in the setting of overdiuresis. Also became hypotensive overnight requiring IV fluids with improvement. ? Bradycardia is also improved with IV fluids today, treatment of hyperkalemia. No signs of AV max block. - Discontinue spironolactone in the setting of refractory hyperkalemia. - Hold metoprolol, diltiazem due to bradycardia. - Eliquis 5 mg twice daily. - Continue aspirin 81 mg daily for PAD. - Echo obtained within the past 2 months with severe diastolic dysfunction but preserved ejection fraction ? Repeat CBC, CMP, magnesium ordered for the morning. ? Allow kidney to auto diuresis in the setting of ATN, may require additional small IV fluid boluses. #Hyperkalemia ? Discontinue spironolactone due to refractory hyperkalemia. Started Kayexalate. Diabetes: - A1c worsening at 10.5. States he has been compliant. Lantus increased to 75 units twice daily. Morning glucose 205 - Continue sliding scale insulin +10 units ACHS. -Diabetic diet of 1500 jone -Holding Jardiance due to risk for Marilin's gangrene given groin wounds and retracted penis Stasis erythema/edema Leg pain #Possible cellulitis - Wound care consulted to assist with management of ulcerations on legs. - Continue dry dressing on wounds - tizanidine for leg cramping 2mg TID - Continue tramadol 50 mg every 6 hours for pain ? Continue vancomycin, cefepime. Microcytic anemia: Hemoglobin 8, platelets 492, white count improved to 12. Transfusion threshold hemoglobin less than 7. Status post 1 dose Venofer this morning LORI: Consider oxygen at night versus CPAP after discussion with patient about his home regimen. On room air at this time; goal sats greater 90% Morbid obesity complicates all aspects of his care. Wound care consulted to assist with legs and stasis ulcers, refer to outpt wound care after DC Full code eliquis 5mg BID Diabetic diet
[2024-09-14] VITALS (20 sets, daily range): BP systolic 99–150; BP diastolic 49–89; PULSE 68–120; RESP 13–21; TEMP 36.6–37.1; O2SAT 92–100; BMI 51.3
[2024-09-14 00:34] LABS: POC Glucose,Bedside 178 (70-110)
[2024-09-14 00:34] LABS: POC Glucose,Bedside 313 (70-110)
[2024-09-14 00:34] LABS: POC Glucose,Bedside 178 (70-110)
[2024-09-14 00:34] LABS: POC Glucose,Bedside 196 (70-110)
[2024-09-14] MEDS: CEFEPIME HCL 2 GM in 0.9 % SODIUM CHLORIDE 100 ML IV (04:03)
[2024-09-14 06:54] LABS: Albumin Level 3.3 g/dl (3.5-5.0); Chloride 105 mmol/L (98-107); Sodium 135 mmol/L (136-145)
[2024-09-14 06:55] LABS: Potassium 4.2 mmoL/L (3.5-5.1)
[2024-09-14 06:57] LABS: Alanine Aminotransferase 119 U/L (12-78); Alkaline Phosphatase 127 U/L (38-126); Anion Gap 12.2 mEq/L (5-15); Aspartate Amino Transferase 112 U/L (17-59); Bilirubin,Total 0.2 mg/dl (0.2-1.3); Blood Urea Nitrogen 76 mg/dl (9-20); Carbon Dioxide 22 mmol/L (22.0-30.0); Creatinine Clearance Estimated 36 mL/min (50-200); Estimated Glomerular Filt Rate 26 ml/min (>60); GFR (African American) 32 ML/MIN (>60); Globulin 3.3 g/dL (1.3-3.2); Total Protein,Serum 6.6 g/dl (6.3-8.2)
[2024-09-14 06:58] LABS: Calcium 8.4 mg/dl (8.4-10.2); Glucose 96 mg/dl (74-100)
--- NOTE | 2024-09-14 07:12 | PC.NURSE ---
Patient refused to turn @6:00am for chux to be changed, and for backside to be washed up, Nurse Angeline RN is aware. Patient chux were changed and patient was washed partially @04:00am. Front was washed and fresh powder was placed as well with pillow cases to help with breakdown @6:00am.
[2024-09-14 07:15] LABS: POC Glucose,Bedside 95 (70-110)
[2024-09-14] MEDS: ASPIRIN EC 81MG TABLET 81 MG PO (08:18)
[2024-09-14] MEDS: PARoxetine 20MG TABLET 20 MG PO (08:19)
[2024-09-14] MEDS: NYSTATIN TOPICAL POWDER 30GM TP ×4 (08:21→21:52)
[2024-09-14] MEDS: GABAPENTIN 400MG CAPSULE 400 MG PO ×4 (08:27→20:55)
[2024-09-14] MEDS: ENOXAPARIN 30MG/0.3ML SYRINGE 30 MG SUBCUT (08:28)
--- NOTE | 2024-09-14 09:31 | P.PN_ITS ---
Subjective Subjective Date: 09/14/24 Time: 09:00 Principal diagnosis: Volume overload and LE edema Interval history: Patient doing much better this morning. Blood pressure is stable 110/89, heart rate 86 at rest up to 100 with movement. Patient denies chest pain or shortness of breath. Continues to complain of bilateral lower extremity pain. Potassium improved to 4.2, sodium 135, creatinine down to 2.5. Exam Data for Last 24 hours Vital signs and Labs for Last 24 Hours: Temp Pulse Resp BP Pulse Ox O2 Del Method O2 Flow Rate 98.7 F 86 15 110/89 97 Room Air 2 09/14/24 08:01 09/14/24 08:01 09/14/24 08:01 09/14/24 08:01 09/14/24 08:01 09/14/24 08:44 09/13/24 02:00 Laboratory Results - last 24 hr 09/13/24 11:05: POC Glucose 313 H* 09/13/24 13:04: POC Glucose 196 H 09/13/24 14:57: Sodium 131 L, Potassium 6.0 H, Chloride 102, Carbon Dioxide 20 L , Anion Gap 15.0, BUN 80 H, Creatinine 3.20 H, Estimated Creat Clear 28, Estimated GFR 20 L, Est GFR ( Amer) 24 L, Glucose 190 H D, Calcium 8.9, Total Bilirubin 0.4, AST 237 H D, ALT 128 H D, Alkaline Phosphatase 131 H, Total Protein 7.0, Albumin 3.5, Globulin 3.5 H, Albumin/Globulin Ratio 1.0 L 09/13/24 16:15: POC Glucose 178 H 09/13/24 19:44: POC Glucose 178 H 09/14/24 06:00: Sodium 135 L, Potassium 4.2 D, Chloride 105, Carbon Dioxide 22, Anion Gap 12.2, BUN 76 H, Creatinine 2.50 H D, Estimated Creat Clear 36, Estimated GFR 26 L, Est GFR ( Amer) 32 L D, Glucose 96 D, Calcium 8.4, Total Bilirubin 0.2, AST 112 H D, ALT 119 H, Alkaline Phosphatase 127 H, Total Protein 6.6, Albumin 3.3 L, Globulin 3.3 H, Albumin/Globulin Ratio 1.0 L 09/14/24 06:16: POC Glucose 95 I & O for Last 24 hours: Intake & Output 09/11/24 09/12/24 09/13/24 09/14/24 23:59 23:59 23:59 23:59 Intake Total 1021.833 / 8238.839 6770 / 2208 2787 / 2787 785 / 785 Output Total 950 / 950 1450 / 1450 700 / 700 200 / 200 Balance 71.833 / 271.833 36 / 758 2087 / 2087 585 / 585 Weight 417 lb 7 oz 416 lb 10.778 oz 410 lb 14.4 oz 413 lb 1.6 oz Microbiology Reports for the Last 24 Hours: Microbiology 09/12/24 07:47 Leg,Left - Drainage Gram Stain - Final 09/12/24 07:47 Leg,Left - Drainage Wound Culture - Preliminary Gram Negative Rods Gram Negative Rods#2 09/11/24 01:58 Leg,Left Gram Stain - Final 09/11/24 01:58 Leg,Left Wound Culture - Final Klebsiella pneumoniae Pseudomonas aeruginosa Strep agalactiae - (group b) 09/12/24 07:47 Foot,Right - Wound Gram Stain - Final 09/12/24 07:47 Foot,Right - Wound Wound Culture - Preliminary Constitutional Constitutional: no acute distress *Routine Respiratory Exam Respiratory: Present CTA bilaterally and symmetric chest movement *Routine Cardiovascular Exam Cardiovascular: Present Normal S1 and Normal S2 *Routine Abdominal Exam Abdominal: Present soft and normoactive bowel sounds; Absent tenderness *Routine Extremities Exam Extremities: Present edema, full ROM and normal capillary refill *Routine Skin Exam Skin: Present intact, dry and warm Detailed Neck Exam: Thyroids Thyroid: Absent bruit Progress Note: A&P Assessment and plan (1) Acute on chronic heart failure with preserved ejection fraction (HFpEF): Status: Acute (2) Venous stasis ulcer of both lower extremities without varicose veins: Status: Acute (3) Peripheral vascular disease: Status: Acute (4) Cellulitis: Status: Acute (5) Hypercalcemia: Status: Acute (6) Chronic wound: Status: Acute (7) Bilateral edema of lower extremity: Status: Acute (8) Atrial fibrillation with RVR: Status: Acute (9) Morbid obesity: Status: Acute (10) Diabetic neuropathy: Status: Acute (11) Morbid obesity with BMI of 50.0-59.9, adult: Status: Acute (12) Volume overload: Status: Acute (13) Microcytic anemia: Status: Acute (14) Adult failure to thrive: Status: Acute (15) LORI (obstructive sleep apnea): Status: Acute (16) Diabetes mellitus: Status: Acute (17) Sacral wound: Status: Acute Assessment and Plan Assessment and Plan for All Diagnoses:: Bradycardia-resolved Hypotension-resolved Acute kidney injury-resolving Blood pressure and heart rate both have improved. Potassium down to 4.2 Sodium down to 135 Creatinine down to 2.5 Making urine Will resume home Toprol 12.5 mg p.o. daily Resume Bumex 2 mg IV daily History of A-fib Chronic A-fib, remains staci Resume Toprol 12.5 mg p.o. daily Resume Eliquis 5 mg p.o. twice daily CV summary 09/14/2024: Heart rate and blood pressure both improved. Patient becomes achycardic with exertion. Will restart reduced dose of Toprol 12.5 mg p.o. daily and restart Bumex 2 mg IV daily. Cardiac Meds Aspirin 81 mg p.o. once daily Bumex 2 mg IV once daily Metoprolol succinate 12.5 mg p.o. daily Eliquis 5 mg p.o. twice daily
[2024-09-14] MEDS: TRAMADOL 50MG TABLET 100 MG PO ×3 (11:20→21:11)
[2024-09-14] MEDS: METOPROLOL SUCCINATE XL 25MG TABLET 12.5 MG PO (11:29)
[2024-09-14] MEDS: BUMETANIDE 1MG/4ML VIAL 2 MG IV (11:29)
--- NOTE | 2024-09-14 12:10 | PC.NURSE ---
Primary RN gave report to KARTHIK Basilio.
[2024-09-14] MEDS: APIXABAN 5MG TABLET 5 MG PO ×2 (12:11→20:54)
--- NOTE | 2024-09-14 12:51 | PC.NURSE ---
Pt tx to [facility] room 200 from room 266 via bed by ms RN at [id number]
[2024-09-14 15:46] LABS: Vancomycin,Trough 12.4 ug/mL (5.0-10.0)
[2024-09-14] MEDS: PHA TO NURSING INSTRUCTION 1 EACH NOTAPPLIC (15:57)
[2024-09-14 16:09] LABS: POC Glucose,Bedside 141 (70-110)
[2024-09-14] MEDS: TIZANIDINE 4MG TABLET 4 MG PO ×2 (16:33→21:11)
[2024-09-14] MEDS: humaLOG 100 UNITS/ML 10ML VIAL (SSI) 15 UNIT SUBCUT (16:34)
[2024-09-14] MEDS: VANCOMYCIN HCL 2,500 MG in 0.9 % SODIUM CHLORIDE 500 ML 250 MG IV (16:34)
[2024-09-14 19:56] LABS: POC Glucose,Bedside 111 (70-110)
[2024-09-14] MEDS: PANTOPRAZOLE 40MG TABLET 40 MG PO (20:54)
[2024-09-14 21:45] LABS: Vancomycin,Peak 28.4 ug/ml (11-39)
--- NOTE | 2024-09-14 22:12 | P.PN_ITS ---
<Statement entered by Jorge A Martin MD - 09/19/24 17:40> Personally evaluated the patient and agree with the plan of care as outlined by the MACHINE PRESERVATIVE FILLER. Subjective *Date: 09/14/24 *Time: 22:12 Interval history: Patient feeling much better today, kidney function improving and making urine. Cardiology restarted Bumex, will continue monitor. Exam Data for Last 24 hours Vital signs and Labs for Last 24 Hours: Temp Pulse Resp BP Pulse Ox O2 Del Method O2 Flow Rate 98.2 F 88 16 99/49 L 94 L Room Air 2 09/14/24 20:00 09/14/24 20:00 09/14/24 20:00 09/14/24 20:00 09/14/24 20:00 09/14/24 21:00 09/13/24 02:00 Laboratory Results - last 24 hr 09/13/24 11:05: POC Glucose 313 H* 09/13/24 13:04: POC Glucose 196 H 09/13/24 16:15: POC Glucose 178 H 09/13/24 19:44: POC Glucose 178 H 09/14/24 06:00: Sodium 135 L, Potassium 4.2 D, Chloride 105, Carbon Dioxide 22, Anion Gap 12.2, BUN 76 H, Creatinine 2.50 H D, Estimated Creat Clear 36, Estimated GFR 26 L, Est GFR ( Amer) 32 L D, Glucose 96 D, Calcium 8.4, Total Bilirubin 0.2, AST 112 H D, ALT 119 H, Alkaline Phosphatase 127 H, Total Protein 6.6, Albumin 3.3 L, Globulin 3.3 H, Albumin/Globulin Ratio 1.0 L 09/14/24 06:16: POC Glucose 95 09/14/24 15:11: Vancomycin Trough 12.4 H 09/14/24 16:01: POC Glucose 141 H 09/14/24 19:46: POC Glucose 111 H 09/14/24 20:31: Vancomycin Peak 28.4 I & O for Last 24 hours: Intake & Output 09/11/24 09/12/24 09/13/24 09/14/24 23:59 23:59 23:59 23:59 Intake Total 1021.833 / 5835.212 4251 / 2208 2787 / 2787 1708 / 1708 Output Total 950 / 950 1450 / 1450 700 / 700 900 / 900 Balance 71.833 / 271.833 36 / 758 2087 / 2087 808 / 808 Weight 189.346 kg 189 kg 186.381 kg 187.379 kg Microbiology Reports for the Last 24 Hours: Microbiology 09/12/24 07:47 Leg,Left - Drainage Gram Stain - Final 09/12/24 07:47 Leg,Left - Drainage Wound Culture - Preliminary Gram Negative Rods Gram Negative Rods#2 09/11/24 01:58 Leg,Left Gram Stain - Final 09/11/24 01:58 Leg,Left Wound Culture - Final Klebsiella pneumoniae Pseudomonas aeruginosa Strep agalactiae - (group b) Constitutional Constitutional: no acute distress and obese Comments: Pale *Routine Respiratory Exam Respiratory: Present CTA bilaterally and symmetric chest movement *Routine Cardiovascular Exam Cardiovascular: Present RRR, Normal S1, Normal S2 and bradycardia *Routine Abdominal Exam Abdominal: Present soft and normoactive bowel sounds; Absent tenderness *Routine Extremities Exam Extremities: Present edema, full ROM and normal capillary refill *Routine Skin Exam Skin: Present intact, dry and warm Detailed Neck Exam: Thyroids Thyroid: Absent bruit Assessment and Plan *Assessment and plan (1) Acute on chronic heart failure with preserved ejection fraction (HFpEF): Status: Acute Category: Medical Code(s): I50.33 - Acute on chronic diastolic (congestive) heart failure (2) Venous stasis ulcer of both lower extremities without varicose veins: Status: Acute Category: Medical Code(s): I87.2 - Venous insufficiency (chronic) (peripheral); L97.919 - Non-pressure chronic ulcer of unspecified part of right lower leg with unspecified severity; L97.929 - Non-pressure chronic ulcer of unspecified part of left lower leg with unspecified severity (3) Peripheral vascular disease: Status: Acute Category: Medical Code(s): I73.9 - Peripheral vascular disease, unspecified (4) Cellulitis: Status: Acute Qualifiers: Site of cellulitis: extremity Site of cellulitis of extremity: lower extremity Laterality: unspecified laterality Qualified Code(s): L03.119 - Cellulitis of unspecified part of limb Category: Medical Code(s): L03.90 - Cellulitis, unspecified (5) Hypercalcemia: Status: Acute Category: Medical Code(s): E83.52 - Hypercalcemia (6) Chronic wound: Status: Acute Category: Medical Code(s): T14.8XXA - Other injury of unspecified body region, initial encounter (7) Bilateral edema of lower extremity: Status: Acute Category: Medical Code(s): R60.0 - Localized edema (8) Atrial fibrillation with RVR: Status: Acute Category: Medical Code(s): I48.91 - Unspecified atrial fibrillation (9) Morbid obesity: Status: Acute Category: Medical Code(s): E66.01 - Morbid (severe) obesity due to excess calories (10) Diabetic neuropathy: Status: Acute Qualifiers: Diabetes mellitus type: type 2 Diabetes mellitus complication detail: diabetic polyneuropathy Qualified Code(s): E11.42 - Type 2 diabetes mellitus with diabetic polyneuropathy Category: Medical Code(s): E11.40 - Type 2 diabetes mellitus with diabetic neuropathy, unspecified (11) Morbid obesity with BMI of 50.0-59.9, adult: Status: Acute Category: Medical Code(s): E66.01 - Morbid (severe) obesity due to excess calories; Z68.43 - Body mass index [BMI] 50.0-59.9, adult (12) Volume overload: Status: Acute Qualifiers: Hypervolemia type: unspecified Qualified Code(s): E87.70 - Fluid overload, unspecified Category: Medical Code(s): E87.70 - Fluid overload, unspecified (13) Microcytic anemia: Status: Acute Category: Medical Code(s): D50.9 - Iron deficiency anemia, unspecified (14) Adult failure to thrive: Status: Acute Category: Medical Code(s): R62.7 - Adult failure to thrive (15) LORI (obstructive sleep apnea): Status: Acute Category: Medical Code(s): G47.33 - Obstructive sleep apnea (adult) (pediatric) (16) Diabetes mellitus: Status: Acute Qualifiers: Diabetes mellitus type: type 2 Diabetes mellitus assistant terminal manager insulin use: without penitentiary use Diabetes mellitus complication status: with hyperglycemia Qualified Code(s): E11.65 - Type 2 diabetes mellitus with hyperglycemia Category: Medical Code(s): E11.9 - Type 2 diabetes mellitus without complications (17) Sacral wound: Status: Acute Qualifiers: Encounter type: initial encounter Qualified Code(s): S31.000A - Unspeci fied open wound of lower back and pelvis without penetration into retroperitoneum, initial encounter Category: Medical Code(s): S31.000A - Unspecified open wound of lower back and pelvis without penetration into retroperitoneum, initial encounter Plan Bebeto Christiansen is a 64-year-old male with morbid obesity, acute on chronic HFpEF, volume overload, lower extremity erythema, stasis ulcerations. Presented with worsening cellulitis and drainage of his legs. Discussed case with ER physician, request admission for antibiotics and further management. Medicine agreed to admit for further care. Bump in creatinine today, will discontinue Bumex drip. Cardiology evaluating today to assist with fluid management. Continues to necessitate inpatient care. Problems addressed as follows: Acute on Chronic HFpEF Anasarca Atrial fibrillation Hypertension #ATN #Bradycardia - Heart rate appears controlled at this time. Appears frankly volume overloaded. BNP 1999 ? Unclear his volume status but legs look better with less edema. Given bump in creatinine, hold on further Bumex. ?Creatinine worsened to 3.3 from 2.9 yesterday. Likely in the setting of overdiuresis. Also became hypotensive overnight requiring IV fluids with improvement. ? Bradycardia is also improved with IV fluids today, treatment of hyperkalemia. No signs of AV max block. - Discontinue spironolactone in the setting of refractory hyperkalemia. - Hold metoprolol, diltiazem due to bradycardia. - Eliquis 5 mg twice daily. - Continue aspirin 81 mg daily for PAD. - Echo obtained within the past 2 months with severe diastolic dysfunction but preserved ejection fraction ? Repeat CBC, CMP, magnesium ordered for the morning. ? Allow kidney to auto diuresis in the setting of ATN, may require additional small IV fluid boluses. #Hyperkalemia ? Discontinue spironolactone due to refractory hyperkalemia. Started Kayexalate. Diabetes: - A1c worsening at 10.5. States he has been compliant. Lantus increased to 75 units twice daily. Morning glucose 205 - Continue sliding scale insulin +10 units ACHS. -Diabetic diet of 1500 jone -Holding Jardiance due to risk for Marilin's gangrene given groin wounds and retracted penis Stasis erythema/edema Leg pain #Possible cellulitis - Wound care consulted to assist with management of ulcerations on legs. - Continue dry dressing on wounds - tizanidine for leg cramping 2mg TID - Continue tramadol 50 mg every 6 hours for pain ? Continue vancomycin, cefepime. Microcytic anemia: Hemoglobin 8, platelets 492, white count improved to 12. Transfusion threshold hemoglobin less than 7. Status post 1 dose Venofer this morning LORI: Consider oxygen at night versus CPAP after discussion with patient about his home regimen. On room air at this time; goal sats greater 90% Morbid obesity complicates all aspects of his care. Wound care consulted to assist with legs and stasis ulcers, refer to outpt wound care after DC Full code eliquis 5mg BID Diabetic diet
[2024-09-15] VITALS (8 sets, daily range): BP systolic 84–133; BP diastolic 44–69; PULSE 60–90; RESP 13–23; TEMP 36.6–36.9; O2SAT 90–100; BMI 52.1
[2024-09-15] MEDS: TIZANIDINE 4MG TABLET 4 MG PO ×4 (01:03→21:15)
[2024-09-15] MEDS: TRAMADOL 50MG TABLET 100 MG PO ×5 (01:04→21:14)
[2024-09-15] MEDS: CEFEPIME HCL 2 GM in 0.9 % SODIUM CHLORIDE 100 ML IV (04:05)
[2024-09-15] MEDS: RINGERS SOLUTION,LACTATED 500 ML 250 ML IV (04:56)
--- NOTE | 2024-09-15 05:27 | PC.NURSE ---
Pt. is alert and orientated x 4. Pt. is on room air. Pt. sat in bariatric recliner chair for 1/2 of the shift. Pt. than wanted to get in the bed. Pt. assisted to be with use of a walker and 2 staff. Pt. sleeping off and on . Pt. c/o BLE extremity pain. Pt. medicated for pain per MAR. BLE wrapped in dressings Gauze and tegaderm. . Pt. has purewick in place. Pt. has some breakdown on his bottom and scrotum area. Blood pressure soft overnight. Pt. got and LR bolus of 250 ml. BP improved. Pt. slept off and on . Personal items and call wynne in reach.
[2024-09-15 06:05] LABS: POC Glucose,Bedside 137 (70-110)
[2024-09-15 07:32] LABS: POC Glucose,Bedside 125 (70-110)
[2024-09-15 07:32] LABS: POC Glucose,Bedside 147 (70-110)
[2024-09-15 08:52] LABS: Chloride 105 mmol/L (98-107)
[2024-09-15 08:53] LABS: Albumin Level 3.1 g/dl (3.5-5.0); Potassium 4.3 mmoL/L (3.5-5.1); Sodium 135 mmol/L (136-145)
[2024-09-15 08:55] LABS: Alanine Aminotransferase 101 U/L (12-78); Anion Gap 9.3 mEq/L (5-15); Aspartate Amino Transferase 67 U/L (17-59); Blood Urea Nitrogen 56 mg/dl (9-20); Carbon Dioxide 25 mmol/L (22.0-30.0); Creatinine Clearance Estimated 60 mL/min (50-200); Estimated Glomerular Filt Rate 47 ml/min (>60); GFR (African American) 57 ML/MIN (>60)
[2024-09-15 08:56] LABS: Alkaline Phosphatase 128 U/L (38-126); Basophils % 0.2 % (0.1-2.0); Bilirubin,Total 0.3 mg/dl (0.2-1.3); Calcium 7.8 mg/dl (8.4-10.2); Eosinophils # 0.1 Kmm3 (0.0-0.4); Eosinophils % 0.7 % (0.1-12.0); Globulin 3.1 g/dL (1.3-3.2); Glucose 177 mg/dl (74-100); Hematocrit 25.9 % (42.0-52.0); Hemoglobin 7.8 g/dL (14.1-18.0); Immature Granulocytes # 0.26 10^3uL; Immature Granulocytes % 1.9 %; Lymphocytes % 14.6 % (10-50); Mean Corpuscular HGB Conc 30.1 g/dL (31.8-35.4); Mean Corpuscular Hemoglobin 22.2 pg (27.0-31.2); Mean Corpuscular Volume 73.6 fl (80-94); Mean Platelet Volume 8.3 fl (7.4-10.4); Monocytes # 1.1 K/mm3 (0.1-1.0); Monocytes % 7.8 % (1.7-9.3); Neutrophils # 10.2 K/mm3 (1.8-7.8); Neutrophils % 74.8 % (37.0-80.0); Nucleated Red Blood Cells # 0.09 10^3/uL; Nucleated Red Blood Cells % 0.7 %; Platelet Count 383 K/mm3 (142-424); Red Blood Count 3.52 M/mm3 (4.60-6.20); Red Cell Distribution Width 17.4 % (11.5-17.5); Red Cell Distribution Width-SD 45.3 fL; Total Protein,Serum 6.2 g/dl (6.3-8.2); White Blood Count 13.7 K/mm3 (4.8-10.8)
[2024-09-15 09:23] LABS: Magnesium 2.2 mg/dl (1.6-2.3)
[2024-09-15] MEDS: BUMETANIDE 1MG/4ML VIAL 2 MG IV (09:32)
[2024-09-15] MEDS: ONDANSETRON 4MG/2ML VIAL 4 MG IV (09:32)
[2024-09-15] MEDS: ASPIRIN EC 81MG TABLET 81 MG PO (09:33)
[2024-09-15] MEDS: GABAPENTIN 400MG CAPSULE 400 MG PO (09:33)
[2024-09-15] MEDS: APIXABAN 5MG TABLET 5 MG PO ×2 (09:33→21:15)
--- NOTE | 2024-09-15 09:33 | EXP.PHA.CONS ---
Pharmacy Consult Date: 09/15/24 Time: 09:33 Referring provider: DR. ROBERTS Reason for Consult:: VANCOMYCIN LEVELS Allergies Allergy/AdvReac Type Severity Reaction Status Date / Time hydromorphone (From Dilaudid) AdvReac Vomiting Verified 09/02/24 10:49 morphine AdvReac Vomiting Verified 09/02/24 10:49 Home Medications ?Medication ?Instructions ?Recorded ?Confirmed ?Type aspirin 81 mg tablet,delayed 81 mg PO DAILY 30 days #30 tabs 06/21/24 09/11/24 Rx release diltiazem HCl 180 mg 360 mg (2 x 180 mg) PO DAILY 30 06/21/24 09/11/24 Rx capsule,extended release 24 hr days #60 caps pantoprazole 40 mg tablet,delayed 40 mg PO HS 30 days #30 tabs 06/21/24 09/11/24 Rx release metoprolol succinate 50 mg 150 mg PO DAILY 07/18/24 09/11/24 History tablet,extended release 24 hr ondansetron 4 mg disintegrating 4 mg PO Q8HP PRN nausea and 07/28/24 09/11/24 History tablet vomiting paroxetine HCl 20 mg tablet 20 mg PO DAILY 07/30/24 09/11/24 History bumetanide 2 mg tablet 2 mg PO TID 30 days #90 tabs 08/01/24 09/11/24 Rx insulin lispro 100 unit/mL See Protocol SQ ACHS 30 days #1.2 08/01/24 09/11/24 Rx subcutaneous solution (Humalog mL U-100 Insulin) tizanidine 4 mg tablet 4 mg PO TID PRN Muscle cramps 30 08/01/24 09/11/24 Rx days #30 tabs tramadol 50 mg tablet 50 mg PO Q8H PRN pain #15 tabs 08/12/24 09/11/24 Rx gabapentin 300 mg capsule 900 mg (3 x 300 mg) PO TID 30 days 08/26/24 09/11/24 Rx #270 caps insulin glargine 100 unit/mL (3 60 unit SQ BID 09/02/24 09/11/24 History mL) subcutaneous pen (Lantus Solostar U-100 Insulin) spironolactone 100 mg tablet 100 mg PO DAILY 09/02/24 09/11/24 History New Prescriptions to Start Prescriptions: Height: 1.91 m Weight: 190.197 kg Laboratory Results:: Laboratory Results - last 24 hr 09/14/24 08:32: POC Glucose 125 H 09/14/24 11:11: POC Glucose 147 H 09/14/24 15:11: Vancomycin Trough 12.4 H 09/14/24 16:01: POC Glucose 141 H 09/14/24 19:46: POC Glucose 111 H 09/14/24 20:31: Vancomycin Peak 28.4 09/15/24 05:51: POC Glucose 137 H 09/15/24 08:40: Sodium 135 L, Potassium 4.3, Chloride 105, Carbon Dioxide 25, Anion Gap 9.3, BUN 56 H D, Creatinine 1.50 H D, Estimated Creat Clear 60, Estimated GFR 47 L, Est GFR ( Amer) 57 L D, Glucose 177 H, Calcium 7.8 L, Magnesium 2.2, Total Bilirubin 0.3, AST 67 H D, ALT 101 H, Alkaline Phosphatase 128 H, Total Protein 6.2 L, Albumin 3.1 L, Globulin 3.1, Albumin/Globulin Ratio 1.0 L Medical History: Medical History (Updated 09/12/24 @ 15:17 by Halima Hough, VAN) Atrial fibrillation Peripheral arterial disease Hypertension Diabetes mellitus Cellulitis of left lower extremity Venous stasis ulcer of both lower extremities without varicose veins Volume overload Cellulitis Acute on chronic heart failure with preserved ejection fraction (HFpEF) LORI (obstructive sleep apnea) Assessment and Plan Assessment and plan all Dx Assessment and Plan for all problems:: Pharmacokinetic dosing service Objective: Patient: Floor: Age: 64 yo Serum creatinine: 1.5 mg/dL Height: 75.2 Inches Weight (kg): 190.2 Assessment: IBW (kg): 84.96 Dosing wt(kg): 190.2 Estimated Creatinine clearance (ml/min): 60.6 CRCL method: Cockcroft and Gault using ibw(default). Drug selected: Vancomycin Loading dose (mg): 0 Vd (liters): 152.2 (factor used: 0.8 L/kg) Stephan (hr-1): 0.055 Half life (hrs): 12.60 Recommended dose: 2500 mg Interval: 12 hrs Infusion time (hrs): 2.0 Predicted peak (mcg/mL): 32.2 Predicted trough (mcg/mL): 18.58 Total body weight is being used for vancomycin dosing. Recommendations: PATIENT HAD BEEN RECEIVING VANCOMYCIN 1250 MG Q12H. SRCR INCREASED TO 3.3 MG/DL ON 09/13, NOW DOWN TO SRCR 1.5 MG/DL. Give Vancomycin 2500 mg q 12 hrs with an expected Cpeak of 32.2 mcg/ml and an expected Ctrough of 18.58 mcg/ml. ----Vanco only - ignore for aminoglycosides----- CLvanco= 8.37 L/hr AUC 0-24 /LENARD Data: LENARD 0.5 mcg/mL: AUC/LENARD: 1194.7 LENARD 1.0 mcg/mL: AUC/LENARD: 597.4 --------- LENARD 1.5 mcg/mL: AUC/LENARD: 398.2 LENARD 2.0 mcg/mL: AUC/LENARD: 298.7
[2024-09-15] MEDS: METOPROLOL SUCCINATE XL 25MG TABLET 12.5 MG PO (09:34)
[2024-09-15] MEDS: PARoxetine 20MG TABLET 20 MG PO (09:34)
[2024-09-15 09:57] LABS: POC Glucose,Bedside 166 (70-110)
--- NOTE | 2024-09-15 10:04 | PC.WOUNDNOTE ---
ulcerations to bottom ulcerations and erythema to LLE ulcerations and erythema to LLE
[2024-09-15] MEDS: MEROPENEM 1 GM in 0.9 % SODIUM CHLORIDE 100 ML IV ×2 (10:05→16:58)
[2024-09-15] MEDS: humaLOG 100 UNITS/ML 10ML VIAL (SSI) 15 UNIT SUBCUT (10:06)
[2024-09-15] MEDS: humaLOG 100 UNITS/ML 10ML VIAL (SSI) SUBCUT (10:06)
[2024-09-15] MEDS: NYSTATIN TOPICAL POWDER 30GM TP ×4 (10:06→21:15)
--- NOTE | 2024-09-15 10:07 | PC.WOUNDNOTE ---
ulcerations and erythema with sanguineous drainage to LLE erythema and scaling to (L) foot erythema, scaling and ulcerations to RLE ulceration and scaling to (R) foot (R) foot with erythema, scaling and amputation of toe
--- NOTE | 2024-09-15 11:32 | EXP.CARD.PN ---
Subjective Subjective Date: 09/15/24 Time: 08:00 Principal diagnosis: Volume overload and LE edema Interval history: Patient doing well this morning. Blood pressure and heart rate have both improved and are stable. Patient has been moved from ICU to [facility]. Morning labs reviewed and improving Exam Data for Last 24 hours Vital signs and Labs for Last 24 Hours: Temp Pulse Resp BP Pulse Ox O2 Del Method O2 Flow Rate 97.8 F 74 20 133/55 L 100 Room Air 2 09/15/24 08:00 09/15/24 08:00 09/15/24 08:00 09/15/24 08:00 09/15/24 08:00 09/15/24 09:51 09/13/24 02:00 Laboratory Results - last 24 hr 09/14/24 08:32: POC Glucose 125 H 09/14/24 11:11: POC Glucose 147 H 09/14/24 15:11: Vancomycin Trough 12.4 H 09/14/24 16:01: POC Glucose 141 H 09/14/24 19:46: POC Glucose 111 H 09/14/24 20:31: Vancomycin Peak 28.4 09/15/24 05:51: POC Glucose 137 H 09/15/24 08:40: WBC 13.7 H D, RBC 3.52 L, Hgb 7.8 L, Hct 25.9 L, MCV 73.6 L, MCH 22.2 L, MCHC 30.1 L, RDW 17.4, Plt Count 383 D, MPV 8.3, Neut % (Auto) 74.8, Lymph % (Auto) 14.6, [place] % (Auto) 7.8, Eos % (Auto) 0.7, Baso % (Auto) 0.2, Neut # (Auto) 10.2 H, Lymph # (Auto) 2.0, [place] # (Auto) 1.1 H, Eos # (Auto) 0.1, Baso # (Auto) 0.0, Sodium 135 L, Potassium 4.3, Chloride 105, Carbon Dioxide 25, Anion Gap 9.3, BUN 56 H D, Creatinine 1.50 H D, Estimated Creat Clear 60, Estimated GFR 47 L, Est GFR ( Amer) 57 L D, Glucose 177 H, Calcium 7.8 L, Magnesium 2.2, Total Bilirubin 0.3, AST 67 H D, ALT 101 H, Alkaline Phosphatase 128 H, Total Protein 6.2 L, Albumin 3.1 L, Globulin 3.1, Albumin/Globulin Ratio 1.0 L 09/15/24 09:37: POC Glucose 166 H I & O for Last 24 hours: Intake & Output 09/12/24 09/13/24 09/14/24 09/15/24 23:59 23:59 23:59 23:59 Intake Total 1486 / 2208 2787 / 2787 1708 / 2208 920 / 920 Output Total 1450 / 1450 700 / 700 900 / 900 1000 / 1000 Balance 36 / 758 2087 / 2087 808 / 1308 -80 / -80 Weight 416 lb 10.778 oz 410 lb 14.4 oz 413 lb 1.6 oz 419 lb 5 oz Microbiology Reports for the Last 24 Hours: Microbiology 09/12/24 07:47 Leg,Left - Drainage Gram Stain - Final 09/12/24 07:47 Leg,Left - Drainage Wound Culture - Preliminary Pseudomonas aeruginosa Klebsiella pneumoniae 09/11/24 00:38 Blood Blood Culture - Preliminary NO GROWTH AFTER 4 DAYS 09/10/24 22:51 Blood Blood Culture - Preliminary NO GROWTH AFTER 4 DAYS 09/11/24 01:58 Leg,Left Gram Stain - Final 09/11/24 01:58 Leg,Left Wound Culture - Final Klebsiella pneumoniae Pseudomonas aeruginosa Strep agalactiae - (group b) Constitutional Constitutional: no acute distress *Routine Respiratory Exam Respiratory: Present CTA bilaterally and symmetric chest movement *Routine Cardiovascular Exam Cardiovascular: Present RRR, Normal S1 and Normal S2 *Routine Abdominal Exam Abdominal: Present soft and normoactive bowel sounds; Absent tenderness *Routine Extremities Exam Extremities: Present edema, full ROM and normal capillary refill *Routine Skin Exam Skin: Present intact, dry and warm Detailed Neck Exam: Thyroids Thyroid: Absent bruit Progress Note: A&P Assessment and plan (1) Acute on chronic heart failure with preserved ejection fraction (HFpEF): Status: Acute (2) Venous stasis ulcer of both lower extremities without varicose veins: Status: Acute (3) Peripheral vascular disease: Status: Acute (4) Cellulitis: Status: Acute (5) Hypercalcemia: Status: Acute (6) Chronic wound: Status: Acute (7) Bilateral edema of lower extremity: Status: Acute (8) Atrial fibrillation with RVR: Status: Acute (9) Morbid obesity: Status: Acute (10) Diabetic neuropathy: Status: Acute (11) Morbid obesity with BMI of 50.0-59.9, adult: Status: Acute (12) Volume overload: Status: Acute (13) Microcytic anemia: Status: Acute (14) Adult failure to thrive: Status: Acute (15) LORI (obstructive sleep apnea): Status: Acute (16) Diabetes mellitus: Status: Acute (17) Sacral wound: Status: Acute Assessment and Plan Assessment and Plan for All Diagnoses:: Bradycardia-resolved Hypotension-resolved Acute kidney injury-resolving Blood pressure and heart rate both have improved. Grossly normal EF, limited views were obtained due to patient being intolerant to test and unwilling to participate Potassium normal today Sodium 135 Creatinine down to 1.5 Making urine Continue Toprol 12.5 mg p.o. daily Continue Bumex 2 mg p.o. daily. Of note patient usually requires more diuretics on board. Can advance over the weekend as patient will tolerate. History of A-fib Chronic A-fib, remains staci Resume Toprol 12.5 mg p.o. daily Resume Eliquis 5 mg p.o. twice daily CV summary 09/15/2024: Heart rate and blood pressure both improved. Continue meds as outlined below, increasing diuretics as patient will tolerate/needs. Cardiology will sign off. Please contact service as needed for any additional concerns. Cardiac Meds Aspirin 81 mg p.o. once daily Bumex 2 mg p.o. daily-can increase as patient will tolerate/needs. Metoprolol succinate 12.5 mg p.o. daily Eliquis 5 mg p.o. twice daily
[2024-09-15] MEDS: DOXYCYCLINE HYCLATE 100 MG in 0.9 % SODIUM CHLORIDE 250 ML 166.667 MG IV ×2 (11:33→23:52)
[2024-09-15] MEDS: GABAPENTIN 400MG CAPSULE 800 MG PO ×2 (13:42→21:13)
[2024-09-15] MEDS: FAMOTIDINE 20MG TABLET 20 MG PO ×2 (13:42→21:15)
[2024-09-15] MEDS: DULOXETINE 30MG CAPSULE.DR 30 MG PO (13:42)
[2024-09-15 16:03] LABS: POC Glucose,Bedside 100 (70-110)
--- NOTE | 2024-09-15 16:43 | PC.NURSE ---
Aox 4, up with assist times 2 with walker, PT did leg dressings today, fsbg achs, purewick in place, diabetic diet with 1,500 fluid restriction, pain meds given twice during my shift.
--- NOTE | 2024-09-15 20:48 | PC.NURSE ---
Pt recieved can of soda (260ml), and was made aware of fluid restriction. Pt is also irritated over restriction and is reluctant to adhere to it.
[2024-09-15] MEDS: PANTOPRAZOLE 40MG TABLET 40 MG PO (21:15)
[2024-09-15 21:37] LABS: POC Glucose,Bedside 139 (70-110)
--- NOTE | 2024-09-15 22:14 | P.PN_ITS ---
Subjective *Date: 09/28/24 *Time: 13:51 Interval history: Patient feeling well today, kidney function is also improving. Lower extremity wound cultures growing ESBL Klebsiella Pseudomonas. Switched to meropenem. Midline placed. Anticipate discharge tomorrow as cellulitis improves. Exam Data for Last 24 hours Vital signs and Labs for Last 24 Hours: Temp Pulse Resp BP Pulse Ox O2 Del Method O2 Flow Rate 97.8 F 76 17 106/58 L 98 Room Air 2 09/15/24 20:00 09/15/24 20:00 09/15/24 20:00 09/15/24 20:00 09/15/24 20:00 09/15/24 20:00 09/13/24 02:00 Laboratory Results - last 24 hr 09/14/24 08:32: POC Glucose 125 H 09/14/24 11:11: POC Glucose 147 H 09/15/24 05:51: POC Glucose 137 H 09/15/24 08:40: WBC 13.7 H D, RBC 3.52 L, Hgb 7.8 L, Hct 25.9 L, MCV 73.6 L, MCH 22.2 L, MCHC 30.1 L, RDW 17.4, Plt Count 383 D, MPV 8.3, Neut % (Auto) 74.8, Lymph % (Auto) 14.6, [place] % (Auto) 7.8, Eos % (Auto) 0.7, Baso % (Auto) 0.2, Neut # (Auto) 10.2 H, Lymph # (Auto) 2.0, [place] # (Auto) 1.1 H, Eos # (Auto) 0.1, Baso # (Auto) 0.0, Sodium 135 L, Potassium 4.3, Chloride 105, Carbon Dioxide 25, Anion Gap 9.3, BUN 56 H D, Creatinine 1.50 H D, Estimated Creat Clear 60, Estimated GFR 47 L, Est GFR ( Amer) 57 L D, Glucose 177 H, Calcium 7.8 L, Magnesium 2.2, Total Bilirubin 0.3, AST 67 H D, ALT 101 H, Alkaline Phosphatase 128 H, Total Protein 6.2 L, Albumin 3.1 L, Globulin 3.1, Albumin/Globulin Ratio 1.0 L 09/15/24 09:37: POC Glucose 166 H 09/15/24 15:56: POC Glucose 100 09/15/24 21:14: POC Glucose 139 H I & O for Last 24 hours: Intake & Output 09/12/24 09/13/24 09/14/24 09/15/24 23:59 23:59 23:59 23:59 Intake Total 1486 / 2208 2787 / 2787 1708 / 2208 2170 / 2170 Output Total 1450 / 1450 700 / 700 900 / 900 2450 / 2450 Balance 36 / 758 2087 / 2087 808 / 1308 -280 / -280 Weight 189 kg 186.381 kg 187.379 kg 190.197 kg Microbiology Reports for the Last 24 Hours: Microbiology 09/12/24 07:47 Leg,Left - Drainage Gram Stain - Final 09/12/24 07:47 Leg,Left - Drainage Wound Culture - Preliminary Pseudomonas aeruginosa Klebsiella pneumoniae 09/11/24 00:38 Blood Blood Culture - Preliminary NO GROWTH AFTER 4 DAYS 09/10/24 22:51 Blood Blood Culture - Preliminary NO GROWTH AFTER 4 DAYS Assessment and Plan *Assessment and plan (1) Acute on chronic heart failure with preserved ejection fraction (HFpEF): Status: Acute Category: Medical Code(s): I50.33 - Acute on chronic diastolic (congestive) heart failure (2) Venous stasis ulcer of both lower extremities without varicose veins: Status: Acute Category: Medical Code(s): I87.2 - Venous insufficiency (chronic) (peripheral); L97.919 - Non-pressure chronic ulcer of unspecified part of right lower leg with unspecified severity; L97.929 - Non-pressure chronic ulcer of unspecified part of left lower leg with unspecified severity (3) Peripheral vascular disease: Status: Acute Category: Medical Code(s): I73.9 - Peripheral vascular disease, unspecified (4) Cellulitis: Status: Acute Qualifiers: Laterality: unspecified laterality Site of cellulitis: extremity Site of cellulitis of extremity: lower extremity Qualified Code(s): L03.119 - Cellulitis of unspecified part of limb Category: Medical Code(s): L03.90 - Cellulitis, unspecified (5) Hypercalcemia: Status: Acute Category: Medical Code(s): E83.52 - Hypercalcemia (6) Chronic wound: Status: Acute Category: Medical Code(s): T14.8XXA - Other injury of unspecified body region, initial encounter (7) Bilateral edema of lower extremity: Status: Acute Category: Medical Code(s): R60.0 - Localized edema (8) Atrial fibrillation with RVR: Status: Resolved Category: Medical Code(s): I48.91 - Unspecified atrial fibrillation (9) Morbid obesity: Status: Acute Category: Medical Code(s): E66.01 - Morbid (severe) obesity due to excess calories (10) Diabetic neuropathy: Status: Acute Qualifiers: Diabetes mellitus complication detail: diabetic polyneuropathy Diabetes mellitus type: type 2 Qualified Code(s): E11.42 - Type 2 diabetes mellitus with diabetic polyneuropathy Category: Medical Code(s): E11.40 - Type 2 diabetes mellitus with diabetic neuropathy, unspecified (11) Morbid obesity with BMI of 50.0-59.9, adult: Status: Acute Category: Medical Code(s): E66.01 - Morbid (severe) obesity due to excess calories; Z68.43 - Body mass index [BMI] 50.0-59.9, adult (12) Volume overload: Status: Acute Qualifiers: Hypervolemia type: unspecified Qualified Code(s): E87.70 - Fluid overload, unspecified Category: Medical Code(s): E87.70 - Fluid overload, unspecified (13) Microcytic anemia: Status: Acute Category: Medical Code(s): D50.9 - Iron deficiency anemia, unspecified (14) Adult failure to thrive: Status: Acute Category: Medical Code(s): R62.7 - Adult failure to thrive (15) LORI (obstructive sleep apnea): Status: Acute Category: Medical Code(s): G47.33 - Obstructive sleep apnea (adult) (pediatric) (16) Diabetes mellitus: Status: Acute Qualifiers: Diabetes mellitus complication status: with hyperglycemia Diabetes mellitus intermediate insulin use: without manager long term care use Diabetes mellitus type: type 2 Qualified Code(s): E11.65 - Type 2 diabetes mellitus with hyperglycemia Category: Medical Code(s): E11.9 - Type 2 diabetes mellitus without complications (17) Sacral wound: Status: Acute Qualifiers: Encounter type: initial encounter Qualified Code(s): S31.000A - Unspecified open wound of lower back and pelvis without penetration into retroperitoneum, initial encounter Category: Medical Code(s): S31.000A - Unspecified open wound of lower back and pelvis without penetration into retroperitoneum, initial encounter Plan Bebeto Christiansen is a 64-year-old male with morbid obesity, acute on chronic HFpEF, volume overload, lower extremity erythema, stasis ulcerations. Presented with worsening cellulitis and drainage of his legs. Discussed case with ER physician, request admission for antibiotics and further management. Medicine agreed to admit for further care. Bump in creatinine today, will discontinue Bumex drip. Cardiology evaluating today to assist with fluid management. Continues to necessitate inpatient care. Problems addressed as follows: Acute on Chronic HFpEF Anasarca Atrial fibrillation Hypertension #ATN #Bradycardia - Heart rate appears controlled at this time. Appears frankly volume overloaded. BNP 1999 ? Unclear his volume status but legs look better with less edema. Given bump in creatinine, hold on further Bumex. ?Creatinine worsened to 3.3 from 2.9 yesterday. Likely in the setting of overdiuresis. Also became hypotensive overnight requiring IV fluids with improvement. ? Bradycardia is also improved with IV fluids today, treatment of hyperkalemia. No signs of AV max block. - Discontinue spironolactone in the setting of refractory hyperkalemia. - Hold metoprolol, diltiazem due to bradycardia. - Eliquis 5 mg twice daily. - Continue aspirin 81 mg daily for PAD. - Echo obtained within the past 2 months with severe diastolic dysfunction but preserved ejection fraction ? Repeat CBC, CMP, magnesium ordered for the morning. ? Allow kidney to auto diuresis in the setting of ATN, may require additional small IV fluid boluses. #Hyperkalemia ? Discontinue spironolactone due to refractory hyperkalemia. Started Kayexalate. Diabetes: - A1c worsening at 10.5. States he has been compliant. Lantus increased to 75 units twice daily. Morning glucose 205 - Continue sliding scale insulin +10 units ACHS. -Diabetic diet of 1500 jone -Holding Jardiance due to risk for Marilin's gangrene given groin wounds and retracted penis Stasis erythema/edema Leg pain #Possible cellulitis - Wound care consulted to assist with management of ulcerations on legs. - Continue dry dressing on wounds - tizanidine for leg cramping 2mg TID - Continue tramadol 50 mg every 6 hours for pain ? Continue vancomycin, cefepime. Microcytic anemia: Hemoglobin 8, platelets 492, white count improved to 12. Transfusion threshold hemoglobin less than 7. Status post 1 dose Venofer this morning LORI: Consider oxygen at night versus CPAP after discussion with patient about his home regimen. On room air at this time; goal sats greater 90% Morbid obesity complicates all aspects of his care. Wound care consulted to assist with legs and stasis ulcers, refer to outpt wound care after DC Full code eliquis 5mg BID Diabetic diet
[2024-09-16] VITALS (7 sets, daily range): BP systolic 104–155; BP diastolic 57–72; PULSE 79–101; RESP 17–20; TEMP 36.5–37.2; O2SAT 93–100; BMI 51.6
[2024-09-16] MEDS: ONDANSETRON 4MG/2ML VIAL 4 MG IV ×2 (02:09→09:46)
[2024-09-16] MEDS: MEROPENEM 1 GM in 0.9 % SODIUM CHLORIDE 100 ML IV ×3 (02:09→17:12)
[2024-09-16] MEDS: TRAMADOL 50MG TABLET 100 MG PO ×3 (04:03→23:59)
--- NOTE | 2024-09-16 04:23 | PC.NURSE ---
Pt frequently seeks out nursing staff. Pt is on a 1800ml fluid restriction and is non compliant. Pt was rude with nurse and PCT about his fluid restriction and became rudly demanding. v/s, ox4. Pt c/o pain and nausea, treated per MAR. Blood glucose monitored. Provider long acting night insulin. Plan of care ongoing.
[2024-09-16 06:10] LABS: Hematocrit 32.5 % (42.0-52.0); Red Blood Count 4.22 M/mm3 (4.60-6.20); White Blood Count 9.5 K/mm3 (4.8-10.8)
[2024-09-16 06:11] LABS: Basophils # 0.1 K/mm3 (0-0.2); Basophils % 0.8 % (0.1-2.0); Eosinophils # 0.1 Kmm3 (0.0-0.4); Eosinophils % 0.7 % (0.1-12.0); Immature Granulocytes # 0.21 10^3uL; Immature Granulocytes % 2.2 %; Lymphocytes # 1.2 K/mm3 (0.7-4.5); Lymphocytes % 12.4 % (10-50); Mean Corpuscular HGB Conc 28.9 g/dL (31.8-35.4); Mean Corpuscular Hemoglobin 22.3 pg (27.0-31.2); Mean Platelet Volume 9.1 fl (7.4-10.4); Monocytes # 0.8 K/mm3 (0.1-1.0); Monocytes % 7.9 % (1.7-9.3); Neutrophils # 7.2 K/mm3 (1.8-7.8); Nucleated Red Blood Cells # 0.06 10^3/uL; Nucleated Red Blood Cells % 0.6 %; Platelet Count 268 K/mm3 (142-424); Red Cell Distribution Width 18.6 % (11.5-17.5); Red Cell Distribution Width-SD 48.7 fL
[2024-09-16 06:14] LABS: Hemoglobin 9.4 g/dL (14.1-18.0)
[2024-09-16 06:21] LABS: Chloride 103 mmol/L (98-107)
[2024-09-16 06:22] LABS: Albumin Level 3.5 g/dl (3.5-5.0); Potassium 5.3 mmoL/L (3.5-5.1); Sodium 133 mmol/L (136-145)
[2024-09-16 06:25] LABS: Alanine Aminotransferase 101 U/L (12-78); Alkaline Phosphatase 135 U/L (38-126); Aspartate Amino Transferase 92 U/L (17-59); Bilirubin,Total 0.6 mg/dl (0.2-1.3); Blood Urea Nitrogen 42 mg/dl (9-20); Calcium 7.7 mg/dl (8.4-10.2); Carbon Dioxide 26 mmol/L (22.0-30.0); Creatinine Clearance Estimated 82 mL/min (50-200); Estimated Glomerular Filt Rate 68 ml/min (>60); GFR (African American) 82 ML/MIN (>60); Glucose 217 mg/dl (74-100); Magnesium 2.1 mg/dl (1.6-2.3); Total Protein,Serum 6.7 g/dl (6.3-8.2)
[2024-09-16] MEDS: TIZANIDINE 4MG TABLET 4 MG PO ×2 (06:54→20:52)
[2024-09-16] MEDS: humaLOG 100 UNITS/ML 10ML VIAL (SSI) SUBCUT ×4 (07:00→20:53)
[2024-09-16 07:02] LABS: POC Glucose,Bedside 184 (70-110)
[2024-09-16] MEDS: BUMETANIDE 1 MG TABLET 2 MG PO ×3 (09:37→20:52)
[2024-09-16] MEDS: DULOXETINE 30MG CAPSULE.DR 30 MG PO (09:37)
[2024-09-16] MEDS: METOPROLOL SUCCINATE XL 25MG TABLET 12.5 MG PO (09:38)
[2024-09-16] MEDS: FAMOTIDINE 20MG TABLET 20 MG PO ×2 (09:38→20:52)
[2024-09-16] MEDS: PANTOPRAZOLE 40MG TABLET 40 MG PO ×2 (09:38→20:53)
[2024-09-16] MEDS: APIXABAN 5MG TABLET 5 MG PO ×2 (09:38→20:53)
[2024-09-16] MEDS: ASPIRIN EC 81MG TABLET 81 MG PO (09:38)
[2024-09-16] MEDS: INSULIN GLARGINE 100 UNITS/ML 3ML FLEXPEN 75 UNIT SUBCUT (09:39)
[2024-09-16] MEDS: NYSTATIN TOPICAL POWDER 30GM TP ×4 (09:46→21:30)
[2024-09-16 09:59] LABS: POC Glucose,Bedside 197 (70-110)
[2024-09-16] MEDS: DOXYCYCLINE HYCLATE 100 MG in 0.9 % SODIUM CHLORIDE 250 ML 166.667 MG IV ×2 (11:00→23:59)
[2024-09-16] MEDS: GABAPENTIN 400MG CAPSULE 800 MG PO (11:49)
[2024-09-16] MEDS: ACETAMINOPHEN 325MG TAB 650 MG PO (11:50)
[2024-09-16 13:13] LABS: POC Glucose,Bedside 201 (70-110)
[2024-09-16] MEDS: PREGABALIN 50MG CAPSULE 100 MG PO ×2 (13:38→20:52)
[2024-09-16] MEDS: HYDROCODONE/APAP 5/325 MG TABLET 1 TAB PO ×2 (15:18→19:39)
--- NOTE | 2024-09-16 15:54 | SW/DCPLANNER ---
Phoned [facility]s and let them know that patient will not DC till Thursday and with the same medicine for 8 days. Prashanth Hardy
[2024-09-16 17:53] LABS: POC Glucose,Bedside 174 (70-110)
--- NOTE | 2024-09-16 19:33 | PC.NURSE ---
patient is alert and oriented x4, patient has reported pain in BLE throughout the shift, treated per MAR. Patient instructed to suck on sugar free hard candy and chew gum to assist with limiting fluid intake. Dressings to BLE intact and being managed by wound care staff. VSS.
[2024-09-16 19:46] LABS: POC Glucose,Bedside 228 (70-110)
--- NOTE | 2024-09-16 20:53 | PC.NURSE ---
Pt. long acting insulin held d/t concern for hypoglycemia, charge nurse notified.
--- NOTE | 2024-09-16 21:23 | P.PN_ITS ---
Subjective *Date: 09/16/24 *Time: 21:23 Interval history: Patient complains of lower extremity pain, started [place] And switch gabapentin to pregabalin. Likely from significant volume overload. Continue diuresis, antibiotics. Increase Bumex to 2 mg 3 times daily. Next be discharged tomorrow after aggressive diuresis. Exam Data for Last 24 hours Vital signs and Labs for Last 24 Hours: Temp Pulse Resp BP Pulse Ox O2 Del Method O2 Flow Rate 99.0 F 98 H 17 131/72 94 L Room Air 2 09/16/24 19:39 09/16/24 19:39 09/16/24 19:39 09/16/24 19:39 09/16/24 19:39 09/16/24 19:39 09/13/24 02:00 Laboratory Results - last 24 hr 09/15/24 21:14: POC Glucose 139 H 09/16/24 05:17: WBC 9.5 D, RBC 4.22 L, Hgb 9.4 L D, Hct 32.5 L, MCV 77.0 L, MCH 22.3 L, MCHC 28.9 L, RDW 18.6 H, Plt Count 268 D, MPV 9.1, Neut % (Auto) 76.0, Lymph % (Auto) 12.4, [place] % (Auto) 7.9, Eos % (Auto) 0.7, Baso % (Auto) 0.8, Neut # (Auto) 7.2, Lymph # (Auto) 1.2, [place] # (Auto) 0.8, Eos # (Auto) 0.1, Baso # (Auto) 0.1, Sodium 133 L, Potassium 5.3 H D, Chloride 103, Carbon Dioxide 26, Anion Gap Not Reportable, BUN 42 H, Creatinine 1.10 D, Estimated Creat Clear 82, Estimated GFR 68, Est GFR ( Amer) 82 D, Glucose 217 H D, Calcium 7.7 L, Magnesium 2.1, Total Bilirubin 0.6, AST 92 H D, ALT 101 H, Alkaline Phosphatase 135 H, Total Protein 6.7, Albumin 3.5 D, Globulin Not Reportable, Albumin/Globulin Ratio Not Reportable 09/16/24 06:53: POC Glucose 184 H 09/16/24 09:36: POC Glucose 197 H 09/16/24 12:59: POC Glucose 201 H 09/16/24 17:14: POC Glucose 174 H 09/16/24 19:36: POC Glucose 228 H I & O for Last 24 hours: Intake & Output 09/13/24 09/14/24 09/15/24 09/16/24 23:59 23:59 23:59 23:59 Intake Total 2787 / 2787 1708 / 2208 2170 / 2780 2640 / 2640 Output Total 700 / 700 900 / 900 2450 / 2850 3930 / 3930 Balance 2087 / 2087 808 / 1308 -280 / -70 -1290 / -1290 Weight 186.381 kg 187.379 kg 190.197 kg 188.468 kg Microbiology Reports for the Last 24 Hours: Microbiology 09/12/24 07:47 Foot,Right - Wound Gram Stain - Final 09/12/24 07:47 Foot,Right - Wound Wound Culture - Preliminary 09/12/24 07:47 Leg,Left - Drainage Gram Stain - Final 09/12/24 07:47 Leg,Left - Drainage Wound Culture - Preliminary Pseudomonas aeruginosa Klebsiella pneumoniae 09/11/24 00:38 Blood Blood Culture - Final NO GROWTH AFTER 5 DAYS 09/10/24 22:51 Blood Blood Culture - Final NO GROWTH AFTER 5 DAYS Constitutional Constitutional: no acute distress *Routine Respiratory Exam Respiratory: Present CTA bilaterally and symmetric chest movement *Routine Cardiovascular Exam Cardiovascular: Present RRR, Normal S1 and Normal S2 *Routine Abdominal Exam Abdominal: Present soft and normoactive bowel sounds; Absent tenderness *Routine Extremities Exam Extremities: Present edema, full ROM and normal capillary refill *Routine Skin Exam Skin: Present intact, dry and warm Detailed Neck Exam: Thyroids Thyroid: Absent bruit Assessment and Plan *Assessment and plan (1) Acute on chronic heart failure with preserved ejection fraction (HFpEF): Status: Acute Category: Medical Code(s): I50.33 - Acute on chronic diastolic (congestive) heart failure (2) Venous stasis ulcer of both lower extremities without varicose veins: Status: Acute Category: Medical Code(s): I87.2 - Venous insufficiency (chronic) (peripheral); L97.919 - Non-pressure chronic ulcer of unspecified part of right lower leg with unspecified severity; L97.929 - Non-pressure chronic ulcer of unspecified part of left lower leg with unspecified severity (3) Peripheral vascular disease: Status: Acute Category: Medical Code(s): I73.9 - Peripheral vascular disease, unspecified (4) Cellulitis: Status: Acute Qualifiers: Site of cellulitis: extremity Site of cellulitis of extremity: lower extremity Laterality: unspecified laterality Qualified Code(s): L03.119 - Cellulitis of unspecified part of limb Category: Medical Code(s): L03.90 - Cellulitis, unspecified (5) Hypercalcemia: Status: Acute Category: Medical Code(s): E83.52 - Hypercalcemia (6) Chronic wound: Status: Acute Category: Medical Code(s): T14.8XXA - Other injury of unspecified body region, initial encounter (7) Bilateral edema of lower extremity: Status: Acute Category: Medical Code(s): R60.0 - Localized edema (8) Atrial fibrillation with RVR: Status: Acute Category: Medical Code(s): I48.91 - Unspecified atrial fibrillation (9) Morbid obesity: Status: Acute Category: Medical Code(s): E66.01 - Morbid (severe) obesity due to excess calories (10) Diabetic neuropathy: Status: Acute Qualifiers: Diabetes mellitus type: type 2 Diabetes mellitus complication detail: diabetic polyneuropathy Qualified Code(s): E11.42 - Type 2 diabetes mellitus with diabetic polyneuropathy Category: Medical Code(s): E11.40 - Type 2 diabetes mellitus with diabetic neuropathy, unspecified (11) Morbid obesity with BMI of 50.0-59.9, adult: Status: Acute Category: Medical Code(s): E66.01 - Morbid (severe) obesity due to excess calories; Z68.43 - Body mass index [BMI] 50.0-59.9, adult (12) Volume overload: Status: Acute Qualifiers: Hypervolemia type: unspecified Qualified Code(s): E87.70 - Fluid overload, unspecified Category: Medical Code(s): E87.70 - Fluid overload, unspecified (13) Microcytic anemia: Status: Acute Category: Medical Code(s): D50.9 - Iron deficiency anemia, unspecified (14) Adult failure to thrive: Status: Acute Category: Medical Code(s): R62.7 - Adult failure to thrive (15) LORI (obstructive sleep apnea): Status: Acute Category: Medical Code(s): G47.33 - Obstructive sleep apnea (adult) (pediatric) (16) Diabetes mellitus: Status: Acute Qualifiers: Diabetes mellitus type: type 2 Diabetes mellitus senior living insulin use: without intermediate designer use Diabetes mellitus complication status: with hyperglycemia Qualified Code(s): E11.65 - Type 2 diabetes mellitus with hyperglycemia Category: Medical Code(s): E11.9 - Type 2 diabetes mellitus without complications (17) Sacral wound: Status: Acute Qualifiers: Encounter type: initial encounter Qualified Code(s): S31.000A - Unspecified open wound of lower back and pelvis without penetration into retroperitoneum, initial encounter Category: Medical Code(s): S31.000A - Unspecified open wound of lower back and pelvis without penetration into retroperitoneum, initial encounter Plan Bebeto Christiansen is a 64-year-old male with morbid obesity, acute on chronic HFpEF, volume overload, lower extremity erythema, stasis ulcerations. Presented with worsening cellulitis and drainage of his legs. Discussed case with ER physician, request admission for antibiotics and further management. Medicine agreed to admit for further care. Bump in creatinine today, will discontinue Bumex drip. Cardiology evaluating today to assist with fluid management. Continues to necessitate inpatient care. Problems addressed as follows: #Acute on Chronic HFpEF #Anasarca #Atrial fibrillation #Hypertension #ATN ? Patient well-known to our facility, noncompliant to heart failure regimen. States he is always thirsty, drinks nonalcoholic profusely at home. Returns volume overloaded. ? Initially started IV Bumex drip, unfortunately went into ATN. Kidney function has significantly improved since. ? Bumex was hold during ATN, patient became volume overloaded again. Complains of significant lower extremity pain from swelling, cellulitis. ? Increased Bumex to 2 mg 3 times daily today. Has had great diuresis/response. No spironolactone due to refractory hyperkalemia with. ? For always feeling thirsty and drinking fluids profusely, extensively discussed importance of fluid restriction for his heart failure. Patient does acknowledge this, but does state that he is always thirsty. Recommended chewing gum, unsweetened mints. Patient states he will try unsweetened gum and jellybeans. Also discontinued paroxetine, duloxetine as this may be contributing to dry mouth. ? Patient complains of lower extremity pain, switched to gabapentin to pregabalin milligrams 3 times daily. Could also be contributing to dry mouth. ? DVT Dopplers ordered for lower extremities, patient refused. ? Creatinine 1.1, GFR 68. ? Follow-up CMP, CBC in the morning. #Lower extremity swelling, lymphedema # Bilateral lower extremity cellulitis #Multidrug-resistant cellulitis ? Due to significant volume anasarca, lymphedema this has caused stasis and allowed opportunistic ESBL bacteria to grow including Klebsiella, Pseudomonas. - Wound care consulted to assist with management of ulcerations on legs. Continue dry dressing on wounds - Tizanidine, pregabalin, [place] for lower extremity pain. ? Continue meropenem, doxycycline day 05/23. ? Midline placed, plan to discharge tomorrow with 8 more days of meropenem. Diabetes: - A1c worsening at 10.5. States he has been compliant. Lantus increased to 75 units twice daily. Morning glucose 205 - Continue sliding scale insulin +10 units ACHS. -Diabetic diet of 1500 jone -Holding Jardiance due to risk for Marilin's gangrene given groin wounds and retracted penis Microcytic anemia ? Hemoglobin 9.4, MCV 77. Received Venofer during admission. ? Follow-up ferritin B12, folate levels. LORI: Consider oxygen at night versus CPAP after discussion with patient about his home regimen. On room air at this time; goal sats greater 90% Morbid obesity complicates all aspects of his care. Wound care consulted to assist with legs and stasis ulcers, refer to outpt wound care after DC Full code eliquis 5mg BID Diabetic diet
[2024-09-17] VITALS (7 sets, daily range): BP systolic 125–144; BP diastolic 54–89; PULSE 63–91; RESP 17–24; TEMP 36.6–37.1; O2SAT 96–99; BMI 49.8
[2024-09-17] MEDS: MEROPENEM 1 GM in 0.9 % SODIUM CHLORIDE 100 ML IV ×3 (01:39→16:57)
[2024-09-17] MEDS: HYDROCODONE 10MG/APAP 325MG TAB 1 TAB PO ×4 (01:47→14:15)
--- NOTE | 2024-09-17 04:34 | PC.NURSE ---
Pt. is alert and oriented x4. Pt. reported pain throughout shift in BLE, treated per MAR. Pt. is on a 1800ml fluid restriction. Dressings on BLE are c/d/i. Call light is in reach.
[2024-09-17 05:17] LABS: POC Glucose,Bedside 155 (70-110)
[2024-09-17] MEDS: humaLOG 100 UNITS/ML 10ML VIAL (SSI) SUBCUT ×4 (05:34→21:52)
--- NOTE | 2024-09-17 05:38 | PC.NURSE ---
Pt. FSBS 155, gave 5 units of insulin per mar, held 15 units d/t concerns of lowering glucose levels, notified charge nurse.
[2024-09-17] MEDS: ONDANSETRON 4MG/2ML VIAL 4 MG IV ×4 (06:17→22:40)
[2024-09-17 07:41] LABS: Basophils # 0.1 K/mm3 (0-0.2); Basophils % 0.5 % (0.1-2.0); Eosinophils # 0.1 Kmm3 (0.0-0.4); Eosinophils % 1.4 % (0.1-12.0); Hematocrit 34.2 % (42.0-52.0); Immature Granulocytes # 0.22 10^3uL; Immature Granulocytes % 2.2 %; Lymphocytes # 1.4 K/mm3 (0.7-4.5); Lymphocytes % 13.7 % (10-50); Mean Corpuscular HGB Conc 29.2 g/dL (31.8-35.4); Mean Corpuscular Hemoglobin 21.8 pg (27.0-31.2); Mean Corpuscular Volume 74.5 fl (80-94); Mean Platelet Volume 8.4 fl (7.4-10.4); Monocytes # 0.8 K/mm3 (0.1-1.0); Monocytes % 7.8 % (1.7-9.3); Neutrophils # 7.4 K/mm3 (1.8-7.8); Neutrophils % 74.4 % (37.0-80.0); Nucleated Red Blood Cells # 0.05 10^3/uL; Nucleated Red Blood Cells % 0.5 %; Platelet Count 412 K/mm3 (142-424); Red Blood Count 4.59 M/mm3 (4.60-6.20); Red Cell Distribution Width 18.3 % (11.5-17.5); Red Cell Distribution Width-SD 46.6 fL; White Blood Count 9.9 K/mm3 (4.8-10.8)
[2024-09-17 08:02] LABS: Chloride 100 mmol/L (98-107); Sodium 135 mmol/L (136-145)
[2024-09-17 08:05] LABS: Alanine Aminotransferase 82 U/L (12-78); Albumin/Globulin Ratio 1.1 (1.1-1.8); Alkaline Phosphatase 152 U/L (38-126); Aspartate Amino Transferase 41 U/L (17-59); Bilirubin,Total 0.4 mg/dl (0.2-1.3); Blood Urea Nitrogen 29 mg/dl (9-20); Calcium 8.2 mg/dl (8.4-10.2); Carbon Dioxide 32 mmol/L (22.0-30.0); Creatinine Clearance Estimated 82 mL/min (50-200); Estimated Glomerular Filt Rate 68 ml/min (>60); GFR (African American) 82 ML/MIN (>60); Globulin 3.6 g/dL (1.3-3.2); Glucose 138 mg/dl (74-100); Total Protein,Serum 7.6 g/dl (6.3-8.2)
[2024-09-17] MEDS: BUMETANIDE 1 MG TABLET 2 MG PO ×2 (09:32→13:15)
[2024-09-17] MEDS: PREGABALIN 50MG CAPSULE 100 MG PO ×3 (09:32→21:20)
[2024-09-17] MEDS: FAMOTIDINE 20MG TABLET 20 MG PO ×2 (09:32→21:20)
[2024-09-17] MEDS: METOPROLOL SUCCINATE XL 25MG TABLET 12.5 MG PO (09:33)
[2024-09-17] MEDS: ASPIRIN EC 81MG TABLET 81 MG PO (09:34)
[2024-09-17] MEDS: PANTOPRAZOLE 40MG TABLET 40 MG PO ×2 (09:34→21:20)
[2024-09-17] MEDS: APIXABAN 5MG TABLET 5 MG PO ×2 (09:35→21:20)
[2024-09-17] MEDS: NYSTATIN TOPICAL POWDER 30GM TP ×4 (09:37→21:20)
[2024-09-17 09:50] LABS: POC Glucose,Bedside 194 (70-110)
[2024-09-17 10:40] LABS: Magnesium 1.8 mg/dl (1.6-2.3)
[2024-09-17] MEDS: DOXYCYCLINE HYCLATE 100 MG in 0.9 % SODIUM CHLORIDE 250 ML 166.667 MG IV ×2 (10:46→22:08)
[2024-09-17 11:10] LABS: POC Glucose,Bedside 183 (70-110)
--- NOTE | 2024-09-17 12:10 | HMH.ITSTN ---
pt is eating lunch & needs wound cleaned+dressed before coming to scan per charge nurse. nurse to call when pt is ready
[2024-09-17] MEDS: TIZANIDINE 4MG TABLET 4 MG PO ×2 (13:37→18:13)
[2024-09-17] MEDS: BUMETANIDE 1MG/4ML VIAL 1 MG IV (14:15)
--- NOTE | 2024-09-17 14:21 | PC.WOUNDNOTE ---
UPDATED PICTURES OF PATIENT'S LEFT LEG AND FOOT.
[2024-09-17 16:48] LABS: POC Glucose,Bedside 233 (70-110)
--- NOTE | 2024-09-17 17:46 | PC.NURSE ---
around 1500 pt requesting for nursing staff to get him something to drink. at that time pt was at 1440ml for oral intake. educated pt on 1800ml fluid restriction, and that he had 360ml remaining until midnight tonight. pt also educated on the use of hard candy and chewing gum to reduce the sensation of dry mouth. pt stated that he did not care and that he wanted a drink. pt given 120ml glass of ice bringing him to 240ml remaining for the day. pt aware of this. dinner tray arrived at 1700 with a 240ml glass of water. pt educated that this would put him at his 1800ml fluid restriction cap. pt drank entirety of 240ml glass at once. pt called out around 1730 requesting a drink. pt educated that he had reached his 1800ml restriction max. pt became extremely hostile, screaming at nursing staff. pt stated, i am 64 years old. i am going to drink what i want . educated pt on need for staff to maintain restriction in order to benefit pt health condition and comply with Dr. orders. pt repetitively stated, minh put out more than im taking in . educated pt that intravenious fluids also were being given via abx and that this was added fluids that were not displayed on the sheet on his door. pt began yelling at staff again, pointing fingers in this RNs face and stating in an aggressive tone, get out of my room right now. i do not want you in my room. , along with cursing. educated pt on the need to remain respectful to staff, despite frustration and that the staff here have his best interest in mind when obeying orders. provided pt with oral swab to moisten mouth. this rn notified hospitalist of pt behavior and knowledge deficit regarding intake and output. sister at bedside due to pt calling for her to bring him water. sister educated on restriction and very understanding. charge nurse, hospitalist, and this rn entered pt room to discuss fluid status. pt educated by hospitalist on need to comply with restriction, the use of hard candy and gum, and diuretic regimen. hospitalist increased restriction to 2000ml daily. pt aware of 200ml remaining for the rest of the 24hr period. pt being given cooling off period at this time. no needs voiced at this time per pt.
[2024-09-17] MEDS: HYDROCODONE/APAP 5/325 MG TABLET 1 TAB PO ×2 (18:13→22:40)
--- NOTE | 2024-09-17 18:19 | P.PN_ITS ---
Subjective *Date: 09/17/24 *Time: 18:19 Exam Data for Last 24 hours Vital signs and Labs for Last 24 Hours: Temp Pulse Resp BP Pulse Ox O2 Del Method O2 Flow Rate 98.6 F 63 20 143/66 H 98 Room Air 2 09/17/24 16:00 09/17/24 16:00 09/17/24 16:00 09/17/24 16:00 09/17/24 16:00 09/17/24 17:00 09/13/24 02:00 Laboratory Results - last 24 hr 09/16/24 19:36: POC Glucose 228 H 09/17/24 05:09: POC Glucose 155 H 09/17/24 07:10: WBC 9.9, RBC 4.59 L, Hgb 10.0 L, Hct 34.2 L, MCV 74.5 L, MCH 21.8 L, MCHC 29.2 L, RDW 18.3 H, Plt Count 412 D, MPV 8.4, Neut % (Auto) 74.4, Lymph % (Auto) 13.7, [place] % (Auto) 7.8, Eos % (Auto) 1.4, Baso % (Auto) 0.5, Neut # (Auto) 7.4, Lymph # (Auto) 1.4, [place] # (Auto) 0.8, Eos # (Auto) 0.1, Baso # (Auto) 0.1, Sodium 135 L, Potassium 4.0 D, Chloride 100, Carbon Dioxide 32 H, Anion Gap 7.0, BUN 29 H D, Creatinine 1.10, Estimated Creat Clear 82, Estimated GFR 68, Est GFR ( Amer) 82, Glucose 138 H, Calcium 8.2 L, Magnesium 1.8 D, Total Bilirubin 0.4, AST 41 D, ALT 82 H, Alkaline Phosphatase 152 H, Total Protein 7.6, Albumin 4.0 D, Globulin 3.6 H, Albumin/Globulin Ratio 1.1 09/17/24 09:30: POC Glucose 194 H 09/17/24 11:01: POC Glucose 183 H 09/17/24 16:39: POC Glucose 233 H I & O for Last 24 hours: Intake & Output 09/14/24 09/15/24 09/16/24 09/17/24 23:59 23:59 23:59 23:59 Intake Total 1708 / 2208 2170 / 2780 2640 / 2640 2240 / 2240 Output Total 900 / 900 2450 / 2850 3930 / 3980 2450 / 2450 Balance 808 / 1308 -280 / -70 -1290 / -1340 -210 / -210 Weight 187.379 kg 190.197 kg 188.468 kg 182.072 kg Microbiology Reports for the Last 24 Hours: Microbiology 09/12/24 07:47 Foot,Right - Wound Gram Stain - Final 09/12/24 07:47 Foot,Right - Wound Wound Culture - Preliminary Gram Negative Rods Constitutional Constitutional: no acute distress and obese *Routine HEENT Exam Head: Present normocephalic Eye: Present EOMI and PERRL ENT: Present mucous membranes moist *Routine Neck Exam Neck: Present supple; Absent lymphadenopathy *Routine Respiratory Exam Respiratory: Present CTA bilaterally *Routine Cardiovascular Exam Cardiovascular: Present RRR *Routine Abdominal Exam Abdominal: Present soft and normoactive bowel sounds; Absent tenderness *Routine Extremities Exam Extremities: Present edema; Absent cyanosis or clubbing *Routine Skin Exam Skin: Present warm; Absent rash *Routine Neurological Exam Neurological: Present alert and oriented X3 Assessment and Plan *Assessment and plan (1) Acute on chronic heart failure with preserved ejection fraction (HFpEF): Status: Acute Category: Medical Code(s): I50.33 - Acute on chronic diastolic (congestive) heart failure (2) Venous stasis ulcer of both lower extremities without varicose veins: Status: Acute Category: Medical Code(s): I87.2 - Venous insufficiency (chronic) (peripheral); L97.919 - Non-pressure chronic ulcer of unspecified part of right lower leg with unspecified severity; L97.929 - Non-pressure chronic ulcer of unspecified part of left lower leg with unspecified severity (3) Peripheral vascular disease: Status: Acute Category: Medical Code(s): I73.9 - Peripheral vascular disease, unspecified (4) Cellulitis: Status: Acute Qualifiers: Site of cellulitis: extremity Site of cellulitis of extremity: lower extremity Laterality: unspecified laterality Qualified Code(s): L03.119 - Cellulitis of unspecified part of limb Category: Medical Code(s): L03.90 - Cellulitis, unspecified (5) Hypercalcemia: Status: Acute Category: Medical Code(s): E83.52 - Hypercalcemia (6) Chronic wound: Status: Acute Category: Medical Code(s): T14.8XXA - Other injury of unspecified body region, initial encounter (7) Bilateral edema of lower extremity: Status: Acute Category: Medical Code(s): R60.0 - Localized edema (8) Atrial fibrillation with RVR: Status: Acute Category: Medical Code(s): I48.91 - Unspecified atrial fibrillation (9) Morbid obesity: Status: Acute Category: Medical Code(s): E66.01 - Morbid (severe) obesity due to excess calories (10) Diabetic neuropathy: Status: Acute Qualifiers: Diabetes mellitus type: type 2 Diabetes mellitus complication detail: diabetic polyneuropathy Qualified Code(s): E11.42 - Type 2 diabetes mellitus with diabetic polyneuropathy Category: Medical Code(s): E11.40 - Type 2 diabetes mellitus with diabetic neuropathy, unspecified (11) Morbid obesity with BMI of 50.0-59.9, adult: Status: Acute Category: Medical Code(s): E66.01 - Morbid (severe) obesity due to excess calories; Z68.43 - Body mass index [BMI] 50.0-59.9, adult (12) Volume overload: Status: Acute Qualifiers: Hypervolemia type: unspecified Qualified Code(s): E87.70 - Fluid overload, unspecified Category: Medical Code(s): E87.70 - Fluid overload, unspecified (13) Microcytic anemia: Status: Acute Category: Medical Code(s): D50.9 - Iron deficiency anemia, unspecified (14) Adult failure to thrive: Status: Acute Category: Medical Code(s): R62.7 - Adult failure to thrive (15) LORI (obstructive sleep apnea): Status: Acute Category: Medical Code(s): G47.33 - Obstructive sleep apnea (adult) (pediatric) (16) Diabetes mellitus: Status: Acute Qualifiers: Diabetes mellitus type: type 2 Diabetes mellitus longterm insulin use: without longterm use Diabetes mellitus complication status: with hyperglycemia Qualified Code(s): E11.65 - Type 2 diabetes mellitus with hyperglycemia Category: Medical Code(s): E11.9 - Type 2 diabetes mellitus without complications (17) Sacral wound: Status: Acute Qualifiers: Encounter type: initial encounter Qualified Code(s): S31.000A - Unspecified open wound of lower back and pelvis without penetration into retroperitoneum, initial encounter Category: Medical Code(s): S31.000A - Unspecified open wound of lower back and pelvis without penetration into retroperitoneum, initial encounter Plan Bebeto Christiansen is a 64-year-old male with morbid obesity, acute on chronic HFpEF, volume overload, lower extremity erythema, stasis ulcerations. Presented with worsening cellulitis and drainage of his legs. Discussed case with ER physician, request admission for antibiotics and further management. Medicine agreed to admit for further care. Bump in creatinine today, will discontinue Bumex drip. Cardiology evaluating today to assist with fluid management. Continues to necessitate inpatient care. Problems addressed as follows: #Acute on Chronic HFpEF #Anasarca #Atrial fibrillation #Hypertension #ATN ? Patient well-known to our facility, noncompliant to heart failure regimen. States he is always thirsty, drinks nonalcoholic profusely at home. Returns volume overloaded. ? Initially started IV Bumex drip, unfortunately went into ATN. Kidney function has significantly improved since. ? Bumex was hold during ATN, patient became volume overloaded again. Complains of significant lower extremity pain from swelling, cellulitis. ? Continue Bumex to 2 mg 3 times daily. Continues to have great diuresis/response. No spironolactone due to refractory hyperkalemia with. ? For always feeling thirsty and drinking fluids profusely, extensively discussed importance of fluid restriction for his heart failure. Patient does acknowledge this, but does state that he is always thirsty. Recommended chewing gum, unsweetened mints. Patient states he will try unsweetened gum and jellybeans. Also discontinued paroxetine, duloxetine as this may be contributing to dry mouth. ? In addition, I do not believe that fluid restricting truly creates realistic environment for this patient especially due to dry mouth. He will invariably go home and drink as he feels appropriate. As such, we will find a diuretic regimen that is appropriate for him. ? DVT Dopplers ordered for lower extremities, patient refused. CTA lower extremity with runoff ordered due to nonhealing wounds, patient refused. ? Creatinine 1.1, GFR 68. ? Follow-up CMP, CBC in the morning. #Lower extremity swelling, lymphedema # Bilateral lower extremity cellulitis #Multidrug-resistant cellulitis #Lower extremity pain ? Due to significant volume anasarca, lymphedema this has caused stasis and allowed opportunistic ESBL bacteria to grow including Klebsiella, Pseudomonas. - Wound care consulted to assist with management of ulcerations on legs. Continue dry dressing on wounds. ? Patient continues to complain about left lower extremity pain, his dressing was removed and rewrapped. With significant improvement in symptoms. Lately wrapped too tightly before. - Tizanidine, pregabalin, [place] for lower extremity pain. ? Continue meropenem, doxycycline day 06/20. ? Midline ready, plan to discharge tomorrow with 8 more days of meropenem. Diabetes: - A1c worsening at 10.5. States he has been compliant. Lantus increased to 75 units twice daily. Morning glucose 205 - Continue sliding scale insulin +10 units ACHS. -Diabetic diet of 1500 jone -Holding Jardiance due to risk for Marilin's gangrene given groin wounds and retracted penis Microcytic anemia ? Hemoglobin 9.4, MCV 77. Received Venofer during admission. ? Follow-up ferritin B12, folate levels. LORI: Consider oxygen at night versus CPAP after discussion with patient about his home regimen. On room air at this time; goal sats greater 90% Morbid obesity complicates all aspects of his care. Wound care consulted to assist with legs and stasis ulcers, refer to outpt wound care after DC Full code eliquis 5mg BID Diabetic diet
--- NOTE | 2024-09-17 18:20 | PC.NURSE ---
hospitalist notified this rn of increase in fluid restriction loosely to 2500 daily.
--- NOTE | 2024-09-17 18:44 | PC.NURSE ---
WENT IN WITH SUPPLIES TO RE-DRESS PATIENT'S LEFT LEG AND FOOT. SUPPLIES WERE PER JEFERSON WITH WOUND CARE. UPON ENTERING ROOM, PATIENT STATES THAT HIS LEG IS NOT HURTING RIGHT NOW AND THAT HE WANTS TO LEAVE DRESSING ON IS, UNTIL JEFERSON SEES HIM AGAIN. EARLIER THIS AFTERNOON, THIS NURSE CLEANED WITH NORMAL SALINE AND DRESSED WOUND WITH ABD PADS AND KERLEX SIMPLY FOR PROTECTION. PATIENT WAS ORDERED CT SCAN AT THE TIME WHICH WAS REFUSED BY PATIENT. PATIENT WISHES TO LEAVE THIS DRESSING ON, EVEN THOUGH IT IS VISIBLY SOILED AND WET WITH SEROUS DRAINAGE. EDUCATED PATIENT ON WOUND CARE, DRESSING CHANGES, AND PROPER SUPPLIES. PATIENT VERBALIZED UNDERSTANDING AND STATED HE DOES NOT WANT DRESSING CHANGED AT THIS TIME.
--- NOTE | 2024-09-17 19:05 | PC.NURSE ---
FOUND PATIENT'S LEFT PEDAL PULSE PER DOPPLER. PULSE WAS BOUNDING AND EASY TO HEAR.
[2024-09-17] MEDS: BUMETANIDE 1MG/4ML VIAL 2 MG IV (21:20)
[2024-09-17] MEDS: TRAMADOL 50MG TABLET 100 MG PO (21:35)
[2024-09-17 21:50] LABS: POC Glucose,Bedside 227 (70-110)
[2024-09-18] VITALS: BP 126/67; PULSE 78; RESP 19; TEMP 36.7; O2SAT 100
[2024-09-18] MEDS: TIZANIDINE 4MG TABLET 4 MG PO ×5 (00:40→22:30)
[2024-09-18] MEDS: MEROPENEM 1 GM in 0.9 % SODIUM CHLORIDE 100 ML IV ×3 (00:45→17:30)
[2024-09-18 04:00] VITALS: BP 142/97; PULSE 102; RESP 18; TEMP 36.7; O2SAT 100; BMI 49.7
--- NOTE | 2024-09-18 04:10 | PC.NURSE ---
Patient is alert and oriented x4. Upon initial assessment, he stated that he just feels miserable. He was observed to have both wakeful periods and resting periods (eyes closed, respirations even and unlabored on room air) without apparent distress throughout the majority of the night; he has also remained resting up to chair per comfort for the entirety of the shift. Elevation of his legs was encouraged; patient did oblige to this while sleeping. He has had consistent complaints of bilateral leg pain this shift. [place] and Tramadol (one dose) were administered per MAR for pain relief. Zofran was administered per MAR for nausea complaints; Mitali Shanelle also provided per patient's request. Other scheduled medications were administered per JUN. Nystatin powder applied to lower abdominal folds; mild erythema and moisture noted in this area. Bilateral lower extremity ulcerations remain dressed accordingly; however, the patient verbally refused all offers of dressing changes this shift due to noticed saturation/leakage. He stated that he would like the dressing changes performed later today by the wound care team. Significant swelling noted to legs as well. Other skin issues documented accordingly (see nursing shift biophysical for this shift); open wound on buttocks and rawness on upper lip/philtrum noted. Chapstick at bedside. Despite his awareness of fluid restriction, the patient has asked for multiple beverages this shift. Intake has been documented appropriately. Patient stated that he has also been unable to tolerate sugar-free hard candy and gum this shift due to the artificial ingredients upsetting his stomach. Mouth swabs provided. A male purewick remains in place for urination needs. A walker remains in the room as an aid during ambulation/transfers; patient requires vast assistance from sitting to standing. Midline intact to the right antecubital area. Lung sounds diminished, heart and bowel sounds within normal findings. ACHS glucose checks performed. At this time, the patient is resting up to chair without any further complaints. No new needs at this time. Call light within reach.
[2024-09-18] MEDS: HYDROCODONE/APAP 5/325 MG TABLET 1 TAB PO ×5 (04:20→21:56)
[2024-09-18] MEDS: ONDANSETRON 4MG/2ML VIAL 4 MG IV ×3 (05:40→21:59)
[2024-09-18 05:51] LABS: POC Glucose,Bedside 218 (70-110)
[2024-09-18] MEDS: humaLOG 100 UNITS/ML 10ML VIAL (SSI) SUBCUT ×4 (06:14→21:48)
--- NOTE | 2024-09-18 06:55 | PC.WOUNDNOTE ---
Pictured is an updated image of the left lower extremity. Open areas are shown, with serosanguinous drainage noted. No odor present. Skin surrounding the open areas are very erythemic and dry/flaky. A small ulceration to the top of the left foot is noted as well. Left Lower Extremity Dressing Change Procedure Patient requested his left leg dressing to be changed this morning due to ongoing serosanguinous saturation and increased discomfort. Five ABD pads (4 were placed around the circumference of the calf/[place] area and 1 was placed horizontally over the top of the patient's foot), two rolls of cotton gauze wrap (1 full roll of Kerlix was used for the calf/denton area and 1 full roll of Kerlix was used for the ankle and foot), and Coban (used for the ankle and foot) were the materials utilized. Hand washing was performed prior to the procedure. Patient tolerated the procedure well; however, he complained of severe leg pain in the calf/d[place] area with any kind of movement or touch. He stated that the left foot has no pain. Post-procedure, the patient stated that his left leg feels much better after the change and continues to elevate both lower extremities at this time.
[2024-09-18 07:19] LABS: Basophils % 0.4 % (0.1-2.0); Eosinophils # 0.1 Kmm3 (0.0-0.4); Eosinophils % 0.7 % (0.1-12.0); Hematocrit 32.8 % (42.0-52.0); Hemoglobin 9.4 g/dL (14.1-18.0); Immature Granulocytes # 0.16 10^3uL; Immature Granulocytes % 1.6 %; Lymphocytes # 1.4 K/mm3 (0.7-4.5); Lymphocytes % 14.1 % (10-50); Mean Corpuscular HGB Conc 28.7 g/dL (31.8-35.4); Mean Corpuscular Hemoglobin 21.1 pg (27.0-31.2); Mean Corpuscular Volume 73.5 fl (80-94); Mean Platelet Volume 8.3 fl (7.4-10.4); Monocytes % 10.1 % (1.7-9.3); Neutrophils # 7.1 K/mm3 (1.8-7.8); Neutrophils % 73.1 % (37.0-80.0); Nucleated Red Blood Cells # 0.03 10^3/uL; Nucleated Red Blood Cells % 0.3 %; Platelet Count 340 K/mm3 (142-424); Red Blood Count 4.46 M/mm3 (4.60-6.20); Red Cell Distribution Width 18.1 % (11.5-17.5); Red Cell Distribution Width-SD 47.1 fL; White Blood Count 9.8 K/mm3 (4.8-10.8)
[2024-09-18 07:35] LABS: Albumin Level 3.7 g/dl (3.5-5.0); Chloride 95 mmol/L (98-107); Sodium 132 mmol/L (136-145)
[2024-09-18 07:38] LABS: Alanine Aminotransferase 58 U/L (12-78); Albumin/Globulin Ratio 1.1 (1.1-1.8); Alkaline Phosphatase 154 U/L (38-126); Aspartate Amino Transferase 38 U/L (17-59); Bilirubin,Total 0.4 mg/dl (0.2-1.3); Blood Urea Nitrogen 31 mg/dl (9-20); Calcium 8.2 mg/dl (8.4-10.2); Carbon Dioxide 33 mmol/L (22.0-30.0); Creatinine Clearance Estimated 82 mL/min (50-200); Estimated Glomerular Filt Rate 68 ml/min (>60); GFR (African American) 82 ML/MIN (>60); Globulin 3.5 g/dL (1.3-3.2); Glucose 237 mg/dl (74-100); Total Protein,Serum 7.2 g/dl (6.3-8.2)
[2024-09-18 08:00] VITALS: BP 149/57; PULSE 83; RESP 24; TEMP 36.6; O2SAT 98
[2024-09-18 08:15] LABS: Magnesium 1.5 mg/dl (1.6-2.3)
[2024-09-18] MEDS: PREGABALIN 50MG CAPSULE 100 MG PO ×3 (08:28→23:16)
[2024-09-18] MEDS: PANTOPRAZOLE 40MG TABLET 40 MG PO ×2 (08:29→21:47)
[2024-09-18] MEDS: FAMOTIDINE 20MG TABLET 20 MG PO ×2 (08:29→21:47)
[2024-09-18] MEDS: ASPIRIN EC 81MG TABLET 81 MG PO (08:29)
[2024-09-18] MEDS: APIXABAN 5MG TABLET 5 MG PO ×2 (08:29→21:47)
[2024-09-18] MEDS: BUMETANIDE 1MG/4ML VIAL 2 MG IV (08:29)
[2024-09-18] MEDS: METOPROLOL SUCCINATE XL 25MG TABLET 12.5 MG PO (08:30)
[2024-09-18] MEDS: NYSTATIN TOPICAL POWDER 30GM TP ×4 (08:31→23:16)
--- NOTE | 2024-09-18 08:32 | EXP.PHA.PN ---
Subjective *Date: 09/18/24 *Time: 08:32 Medical Exam Vital signs and Labs for Last 24 Hours: Vital Signs Temp Pulse Pulse Resp BP Pulse Ox O2 Del Method 09/18/24 07:00 Room Air 09/18/24 05:00 Room Air 09/18/24 04:00 98.1 F 102 H 18 142/97 H 100 Room Air 09/18/24 03:00 Room Air 09/18/24 01:00 Room Air 09/18/24 00:00 98.0 F 78 19 126/67 100 Room Air 09/17/24 23:00 Room Air 09/17/24 21:00 Room Air 09/17/24 20:00 66 18 97 Room Air 09/17/24 19:58 98.5 F 66 18 138/54 L 97 Room Air 09/17/24 18:48 Room Air 09/17/24 17:00 Room Air 09/17/24 16:00 98.6 F 63 20 143/66 H 98 Room Air 09/17/24 15:00 Room Air 09/17/24 13:00 Room Air 09/17/24 12:00 98.8 F 64 22 144/63 H 99 Room Air 09/17/24 11:00 Room Air 09/17/24 09:00 Room Air Intake and Output 09/17/24 09/18/24 09/18/24 23:59 07:59 15:59 Intake Total 1795 / 3657 970 / 970 Output Total 1410 / 3660 925 / 925 Balance 385 / -3 45 / 45 Intake: Intake, Oral Amount 1445 / 2867 620 / 620 Intake, Total IV Amount 350 / 440 Doxycycline Hyclate 100 mg In 0 250 / 250 .9 % Sodium Chloride 250 ml @ 166.667 mls/hr IV Q12H JESSICA Rx#: [id number] Meropenem 1 gm In 0.9 % Sodium 100 / 190 Chloride 100 ml @ 100 mls/hr IV Q8H JESSICA Rx#:[id number] Infusion Intake 350 / 350 Doxycycline Hyclate 100 mg In 0 250 / 250 .9 % Sodium Chloride 250 ml @ 166.667 mls/hr IV Q12H JESSICA Rx#: [id number] Meropenem 1 gm In 0.9 % Sodium 100 / 100 Chloride 100 ml @ 100 mls/hr IV Q8H JESSICA Rx#:[id number] Output: Output, Urine Amount 1410 / 3660 925 / 925 Other: Number of Unmeasured Voids 0 0 Weight 181.437 kg Patient Weight 09/18/24 23:59 Weight 181.437 kg Laboratory Results - last 24 hr 09/17/24 07:10: Magnesium 1.8 D 09/17/24 09:30: POC Glucose 194 H 09/17/24 11:01: POC Glucose 183 H 09/17/24 16:39: POC Glucose 233 H 09/17/24 21:37: POC Glucose 227 H 09/18/24 05:44: POC Glucose 218 H 09/18/24 06:50: WBC 9.8, RBC 4.46 L, Hgb 9.4 L, Hct 32.8 L, MCV 73.5 L, MCH 21.1 L, MCHC 28.7 L, RDW 18.1 H, Plt Count 340, MPV 8.3, Neut % (Auto) 73.1, Lymph % (Auto) 14.1, [place] % (Auto) 10.1 H, Eos % (Auto) 0.7, Baso % (Auto) 0.4, Neut # (Auto) 7.1, Lymph # (Auto) 1.4, [place] # (Auto) 1.0, Eos # (Auto) 0.1, Baso # (Auto) 0.0, Sodium 132 L, Potassium 4.0, Chloride 95 L, Carbon Dioxide 33 H, Anion Gap 8.0, BUN 31 H, Creatinine 1.10, Estimated Creat Clear 82, Estimated GFR 68, Est GFR ( Amer) 82, Glucose 237 H D, Calcium 8.2 L, Magnesium 1.5 L D, Total Bilirubin 0.4, AST 38, ALT 58 D, Alkaline Phosphatase 154 H, Total Protein 7.2, Albumin 3.7, Globulin 3.5 H, Albumin/Globulin Ratio 1.1 I & O for Labs for Last 24 Hours: Intake & Output 09/15/24 09/16/24 09/17/24 09/18/24 23:59 23:59 23:59 23:59 Intake Total 2170 / 2780 2640 / 2640 3085 / 3657 970 / 970 Output Total 2450 / 2850 3930 / 3980 3060 / 3660 925 / 925 Balance -280 / -70 -1290 / -1340 25 / -3 45 / 45 Weight 190.197 kg 188.468 kg 182.072 kg 181.437 kg Microbiology Reports for the Last 24 Hours: Microbiology 09/12/24 07:47 Leg,Left - Drainage Gram Stain - Final 09/12/24 07:47 Leg,Left - Drainage Wound Culture - Preliminary Pseudomonas aeruginosa Klebsiella pneumoniae Proteus mirabilis Strep agalactiae - (group b) 09/12/24 07:47 Foot,Right - Wound Gram Stain - Final 09/12/24 07:47 Foot,Right - Wound Wound Culture - Preliminary Gram Negative Rods The patient's infection will respond to the chosen ABx?: No (MEROPENEM YES PSEUDOMONAS AND KLEBSIELLA, PROTEUS AND GBS RESISTANT TO DOXY) Is the patient receiving the right drug, dose, and route?: Yes Could a more targeted ABx be ordered?: Yes (CEFEPIME, WOULD COVER PSEUDOMONAS, KLEBSIELLA, PROTEUS, AND GROUP B STREP.) How long ABx needed (days)?: 7
[2024-09-18] MEDS: DOXYCYCLINE HYCL 100 MG TABLET PO ×2 (09:27→21:47)
[2024-09-18] MEDS: MAGNESIUM SULFATE IN WATER 2 GM/50 ML PIGGYBACK IV ×2 (11:24→13:09)
[2024-09-18] MEDS: metOLazone 2.5MG TABLET 5 MG PO (11:59)
[2024-09-18 12:00] VITALS: BP 105/60; PULSE 68; RESP 22; TEMP 37; O2SAT 100
[2024-09-18 12:37] LABS: POC Glucose,Bedside 218 (70-110)
[2024-09-18] MEDS: BUMETANIDE 1MG/4ML VIAL 3 MG IV ×2 (13:04→22:00)
--- NOTE | 2024-09-18 15:42 | PC.NURSE ---
PT IS SITTING UP IN THE CHAIR. ALERT AND ORIENTED X4. EATING AND DRINKING FAIR. MEDICATED PER MAR FOR PAIN AND NAUSEA. LUNG SOUNDS DIMINISHED. ABDOMEN LARGE/SOFT/NON TENDER WITH HYPOACTIVE BOWEL SOUNDS. REDNESS NOTED TO ABDOMINAL FOLD. DRESSING TO LLE CHANGED THIS SHIFT. MULTIPLE CONTINUOUS DRAINING ULCERATIONS NOTED TO LLE. REDNESS AND 3+ PITTING EDEMA NOTED TO BLE. PT ATTEMPTED TO HAVE A BOWEL MOVEMENT THIS SHIFT AND WAS UNABLE. PASSING FLATUS. MIDLINE NOTED TO RUE. PT HAS BEEN A 2-3 ASSIST TO TRANSFER. PURWICK IN PLACE. DIURESING WELL. PT HAS BEEN NONCOMPLIANT WITH FLUID RESTRICTION. OF THIS AFTERNOON PT IS AGREEABLE TO GOING TO SHORT TERM REHAB WHEN DISCHARGED. WILL CONTINUE TO MONITOR.
[2024-09-18 16:00] VITALS: BP 119/58; PULSE 74; RESP 22; TEMP 37.2; O2SAT 98
[2024-09-18 17:09] LABS: POC Glucose,Bedside 256 (70-110)
--- NOTE | 2024-09-18 19:16 | PC.NURSE ---
THIS NURSE CHANGED DRESSING TO PATIENT'S LEFT LOWER LEG TODAY. OLD DRESSING REMOVED. COPIOUS AMOUNTS OF DRAINAGE FROM LEFT LEG NOTED DRIPPING ONTO FLOOR. NEW DRESSING APPLIED INCLUDED: OPTILOCK PADS, ABD PADS, KERLEX, AND STRETCH WRAP. PATIENT TOLERATED FAIRLY WELL. PATIENT DID NOT WANT RIGHT LEG TOUCHED OR REDRESSED.
[2024-09-18 20:00] VITALS: BP 132/75; PULSE 64; RESP 17; TEMP 37; O2SAT 100
--- NOTE | 2024-09-18 20:54 | EXP.PN ---
Subjective *Date: 09/18/24 *Time: 20:54 Interval history: After extensive conversations of severity of disease process and recurrent admissions, I was south with patient that this trend does not have a good prognosis and will continue to significantly shorten his life span. After consideration, patient states he is agreeable to short-term rehab. Case management assisting with placement. Exam Data for Last 24 hours Vital signs and Labs for Last 24 Hours: Temp Pulse Resp BP Pulse Ox O2 Del Method O2 Flow Rate 98.6 F 64 17 132/75 100 Room Air 2 09/18/24 20:00 09/18/24 20:00 09/18/24 20:00 09/18/24 20:00 09/18/24 20:00 09/18/24 20:00 09/13/24 02:00 Laboratory Results - last 24 hr 09/17/24 21:37: POC Glucose 227 H 09/18/24 05:44: POC Glucose 218 H 09/18/24 06:50: WBC 9.8, RBC 4.46 L, Hgb 9.4 L, Hct 32.8 L, MCV 73.5 L, MCH 21.1 L, MCHC 28.7 L, RDW 18.1 H, Plt Count 340, MPV 8.3, Neut % (Auto) 73.1, Lymph % (Auto) 14.1, [place] % (Auto) 10.1 H, Eos % (Auto) 0.7, Baso % (Auto) 0.4, Neut # (Auto) 7.1, Lymph # (Auto) 1.4, [place] # (Auto) 1.0, Eos # (Auto) 0.1, Baso # (Auto) 0.0, Sodium 132 L, Potassium 4.0, Chloride 95 L, Carbon Dioxide 33 H, Anion Gap 8.0, BUN 31 H, Creatinine 1.10, Estimated Creat Clear 82, Estimated GFR 68, Est GFR ( Amer) 82, Glucose 237 H D, Calcium 8.2 L, Magnesium 1.5 L D, Total Bilirubin 0.4, AST 38, ALT 58 D, Alkaline Phosphatase 154 H, Total Protein 7.2, Albumin 3.7, Globulin 3.5 H, Albumin/Globulin Ratio 1.1 09/18/24 12:05: POC Glucose 218 H 09/18/24 17:00: POC Glucose 256 H I & O for Last 24 hours: Intake & Output 09/15/24 09/16/24 09/17/24 09/18/24 23:59 23:59 23:59 23:59 Intake Total 2170 / 2780 2640 / 2640 3085 / 3657 2225 / 2225 Output Total 2450 / 2850 3930 / 3980 3060 / 3660 2525 / 2525 Balance -280 / -70 -1290 / -1340 25 / -3 -300 / -300 Weight 190.197 kg 188.468 kg 182.072 kg 181.437 kg Microbiology Reports for the Last 24 Hours: Microbiology 09/12/24 07:47 Leg,Left - Drainage Gram Stain - Final 09/12/24 07:47 Leg,Left - Drainage Wound Culture - Final Pseudomonas aeruginosa Klebsiella pneumoniae Proteus mirabilis Strep agalactiae - (group b) 09/12/24 07:47 Foot,Right - Wound Gram Stain - Final 09/12/24 07:47 Foot,Right - Wound Wound Culture - Preliminary Acinetobacter baumannii Constitutional Constitutional: no acute distress and obese *Routine HEENT Exam Head: Present normocephalic Eye: Present EOMI and PERRL ENT: Present mucous membranes moist *Routine Neck Exam Neck: Present supple; Absent lymphadenopathy *Routine Respiratory Exam Respiratory: Present CTA bilaterally *Routine Cardiovascular Exam Cardiovascular: Present RRR *Routine Abdominal Exam Abdominal: Present soft and normoactive bowel sounds; Absent tenderness *Routine Extremities Exam Extremities: Present edema; Absent cyanosis or clubbing *Routine Skin Exam Skin: Present warm; Absent rash *Routine Neurological Exam Neurological: Present alert and oriented X3 Assessment and Plan *Assessment and plan (1) Acute on chronic heart failure with preserved ejection fraction (HFpEF): Status: Acute Category: Medical Code(s): I50.33 - Acute on chronic diastolic (congestive) heart failure (2) Venous stasis ulcer of both lower extremities without varicose veins: Status: Acute Category: Medical Code(s): I87.2 - Venous insufficiency (chronic) (peripheral); L97.919 - Non-pressure chronic ulcer of unspecified part of right lower leg with unspecified severity; L97.929 - Non-pressure chronic ulcer of unspecified part of left lower leg with unspecified severity (3) Peripheral vascular disease: Status: Acute Category: Medical Code(s): I73.9 - Peripheral vascular disease, unspecified (4) Cellulitis: Status: Acute Qualifiers: Site of cellulitis: extremity Site of cellulitis of extremity: lower extremity Laterality: unspecified laterality Qualified Code(s): L03.119 - Cellulitis of unspecified part of limb Category: Medical Code(s): L03.90 - Cellulitis, unspecified (5) Hypercalcemia: Status: Acute Category: Medical Code(s): E83.52 - Hypercalcemia (6) Chronic wound: Status: Acute Category: Medical Code(s): T14.8XXA - Other injury of unspecified body region, initial encounter (7) Bilateral edema of lower extremity: Status: Acute Category: Medical Code(s): R60.0 - Localized edema (8) Atrial fibrillation with RVR: Status: Acute Category: Medical Code(s): I48.91 - Unspecified atrial fibrillation (9) Morbid obesity: Status: Acute Category: Medical Code(s): E66.01 - Morbid (severe) obesity due to excess calories (10) Diabetic neuropathy: Status: Acute Qualifiers: Diabetes mellitus type: type 2 Diabetes mellitus complication detail: diabetic polyneuropathy Qualified Code(s): E11.42 - Type 2 diabetes mellitus with diabetic polyneuropathy Category: Medical Code(s): E11.40 - Type 2 diabetes mellitus with diabetic neuropathy, unspecified (11) Morbid obesity with BMI of 50.0-59.9, adult: Status: Acute Category: Medical Code(s): E66.01 - Morbid (severe) obesity due to excess calories; Z68.43 - Body mass index [BMI] 50.0-59.9, adult (12) Volume overload: Status: Acute Qualifiers: Hypervolemia type: unspecified Qualified Code(s): E87.70 - Fluid overload, unspecified Category: Medical Code(s): E87.70 - Fluid overload, unspecified (13) Microcytic anemia: Status: Acute Category: Medical Code(s): D50.9 - Iron deficiency anemia, unspecified (14) Adult failure to thrive: Status: Acute Category: Medical Code(s): R62.7 - Adult failure to thrive (15) LORI (obstructive sleep apnea): Status: Acute Category: Medical Code(s): G47.33 - Obstructive sleep apnea (adult) (pediatric) (16) Diabetes mellitus: Status: Acute Qualifiers: Diabetes mellitus type: type 2 Diabetes mellitus group home insulin use: without foundation director use Diabetes mellitus complication status: with hyperglycemia Qualified Code(s): E11.65 - Type 2 diabetes mellitus with hyperglycemia Category: Medical Code(s): E11.9 - Type 2 diabetes mellitus without complications (17) Sacral wound: Status: Acute Qualifiers: Encounter type: initial encounter Qualified Code(s): S31.000A - Unspecified open wound of lower back and pelvis without penetration into retroperitoneum, initial encounter Category: Medical Code(s): S31.000A - Unspecified open wound of lower back and pelvis without penetration into retroperitoneum, initial encounter Plan Bebeto Christiansen is a 64-year-old male with morbid obesity, acute on chronic HFpEF, volume overload, lower extremity erythema, stasis ulcerations. Presented with worsening cellulitis and drainage of his legs. Discussed case with ER physician, request admission for antibiotics and further management. Medicine agreed to admit for further care. Bump in creatinine today, will discontinue Bumex drip. Cardiology evaluating today to assist with fluid management. Continues to necessitate inpatient care. Problems addressed as follows: #Acute on Chronic HFpEF #Anasarca #Atrial fibrillation #Hypertension #ATN ? Patient well-known to our facility, noncompliant to heart failure regimen. States he is always thirsty, drinks water/tea profusely at home. Returns volume overloaded. ? Initially started IV Bumex drip, unfortunately went into ATN. Kidney function has significantly improved since. ? Bumex was hold during ATN, patient became volume overloaded again. Complains of significant lower extremity pain from swelling, cellulitis that's improving. ? Continue Bumex to 3 mg 3 times daily, started metolazone 5mg today (uptitrate as needed). Continues to have great diuresis/response. No spironolactone due to refractory hyperkalemia with. ? For always feeling thirsty and drinking fluids profusely, extensively discussed importance of fluid restriction for his heart failure. Patient does acknowledge this, but does state that he is always thirsty. Recommended chewing gum, unsweetened mints. Patient states he will try unsweetened gum and jellybeans. Also discontinued paroxetine, duloxetine as this may be contributing to dry mouth. ? In addition, I do not believe that fluid restricting truly creates realistic environment for this patient especially due to dry mouth. He will invariably go home and drink as he feels appropriate due to dry mouth. As such, will find a diuretic regimen that is appropriate for him. ? DVT Dopplers ordered for lower extremities, patient refused. CTA lower extremity with runoff ordered due to nonhealing wounds, patient refused. ? After extensive conversations of severity of disease process and recurrent admissions, I was south with patient that this trend does not have a good prognosis and will continue to significantly shorten his life span. After consideration, patient states he is agreeable to short-term rehab. Case management assisting with placement. ? Creatinine 1.1, GFR 68. ? Follow-up CMP, CBC in the morning. #Lower extremity swelling, lymphedema # Bilateral lower extremity cellulitis #Multidrug-resistant cellulitis #Lower extremity pain ? Due to significant volume anasarca, lymphedema this has caused stasis and allowed opportunistic ESBL bacteria to grow including Klebsiella, Pseudomonas. - Wound care consulted to assist with management of ulcerations on legs. Continue dry dressing on wounds. ? Patient continues to complain about left lower extremity pain, his dressing was removed and rewrapped. With significant improvement in symptoms. Lately wrapped too tightly before. - Tizanidine, pregabalin, [place] for lower extremity pain. ? Continue meropenem day 4/10. Discontinue doxycycline. ? Midline ready for IV meropenem upon discharge. Diabetes: - A1c worsening at 10.5. States he has been compliant. Patient has been using for using the Lantus over the past few days due to hypoglycemic events overnight, his sugars today are staying relatively stable at low 200s. Restarted Lantus to 20 units daily. - Continue sliding scale insulin +10 units ACHS. -Diabetic diet of 1500 jone -Holding Jardiance due to risk for Marilin's gangrene given groin wounds and retracted penis Microcytic anemia ? Hemoglobin 9.4, MCV 77. Received Venofer during admission. ? Follow-up ferritin B12, folate levels. LORI: Consider oxygen at night versus CPAP after discussion with patient about his home regimen. On room air at this time; goal sats greater 90% Morbid obesity complicates all aspects of his care. Wound care consulted to assist with legs and stasis ulcers, refer to outpt wound care after DC Full code eliquis 5mg BID Diabetic diet
[2024-09-19] VITALS (7 sets, daily range): BP systolic 62–161; BP diastolic 31–81; PULSE 64–112; RESP 13–17; TEMP 36.5–37.1; O2SAT 79–100; BMI 50.1
[2024-09-19] MEDS: MEROPENEM 1 GM in 0.9 % SODIUM CHLORIDE 100 ML IV ×3 (01:12→16:35)
[2024-09-19] MEDS: SODIUM CHLORIDE 0.9% 10ML FLUSH SYRINGE 10 ML IV (01:12)
[2024-09-19 01:34] LABS: POC Glucose,Bedside 211 (70-110)
[2024-09-19] MEDS: HYDROCODONE/APAP 5/325 MG TABLET 1 TAB PO (02:34)
[2024-09-19] MEDS: TRAMADOL 50MG TABLET 100 MG PO (02:35)
--- NOTE | 2024-09-19 04:15 | PC.NURSE ---
Pt. is alert and orientated x 4. Pt. is on room air. Pt. up in bariatric recliner chair for 1/2 of the shift than transferred to bed. Pt. used walker and assist x 2 for transfer from chair to bed. Pt. c/o pain to BLE.'s. Pt. medicated per MAR for pain. BLE 's have dressings in place. there is drainage seeping through the dressings. Pt. did not want dressings changed this shift. Pt. has a midline IV to right upper arm. It flushes well and aspirates blood well. Pt. getting IV antibiotics. Purewick in place. Pt.has been non-compliant with fluid restrictions. Pt. also c/o nausea and was medicated with Zofran. Personal items and call wynne in reach,.
[2024-09-19 06:06] LABS: POC Glucose,Bedside 326 (70-110)
[2024-09-19] MEDS: humaLOG 100 UNITS/ML 10ML VIAL (SSI) SUBCUT ×4 (06:11→21:44)
[2024-09-19] MEDS: humaLOG 100 UNITS/ML 10ML VIAL (SSI) 15 UNIT SUBCUT ×3 (06:12→16:35)
[2024-09-19] MEDS: TIZANIDINE 4MG TABLET 4 MG PO ×2 (06:13→12:11)
[2024-09-19 07:31] LABS: Basophils % 0.4 % (0.1-2.0); Eosinophils # 0.1 Kmm3 (0.0-0.4); Eosinophils % 0.5 % (0.1-12.0); Hematocrit 30.5 % (42.0-52.0); Hemoglobin 9.3 g/dL (14.1-18.0); Immature Granulocytes # 0.07 10^3uL; Immature Granulocytes % 0.7 %; Lymphocytes # 1.5 K/mm3 (0.7-4.5); Lymphocytes % 14.6 % (10-50); Mean Corpuscular HGB Conc 30.5 g/dL (31.8-35.4); Mean Corpuscular Hemoglobin 21.8 pg (27.0-31.2); Mean Corpuscular Volume 71.4 fl (80-94); Mean Platelet Volume 8.6 fl (7.4-10.4); Monocytes # 1.1 K/mm3 (0.1-1.0); Monocytes % 10.3 % (1.7-9.3); Neutrophils # 7.5 K/mm3 (1.8-7.8); Neutrophils % 73.5 % (37.0-80.0); Nucleated Red Blood Cells # 0 10^3/uL; Nucleated Red Blood Cells % 0 %; Platelet Count 305 K/mm3 (142-424); Red Blood Count 4.27 M/mm3 (4.60-6.20); Red Cell Distribution Width 17.8 % (11.5-17.5); Red Cell Distribution Width-SD 44.4 fL; White Blood Count 10.2 K/mm3 (4.8-10.8)
[2024-09-19 07:48] LABS: Magnesium 1.8 mg/dl (1.6-2.3)
[2024-09-19 08:00] LABS: Alanine Aminotransferase 40 U/L (12-78); Albumin Level 3.4 g/dl (3.5-5.0); Alkaline Phosphatase 130 U/L (38-126); Anion Gap 12.1 mEq/L (5-15); Aspartate Amino Transferase 33 U/L (17-59); Bilirubin,Total 0.7 mg/dl (0.2-1.3); Blood Urea Nitrogen 36 mg/dl (9-20); Calcium 8.3 mg/dl (8.4-10.2); Carbon Dioxide 35 mmol/L (22.0-30.0); Chloride 87 mmol/L (98-107); Creatinine Clearance Estimated 70 mL/min (50-200); Estimated Glomerular Filt Rate 56 ml/min (>60); GFR (African American) 67 ML/MIN (>60); Globulin 3.3 g/dL (1.3-3.2); Glucose 271 mg/dl (74-100); Potassium 3.1 mmoL/L (3.5-5.1); Sodium 131 mmol/L (136-145); Total Protein,Serum 6.7 g/dl (6.3-8.2)
[2024-09-19] MEDS: metOLazone 2.5MG TABLET 5 MG PO (08:21)
[2024-09-19] MEDS: BUMETANIDE 1MG/4ML VIAL 3 MG IV ×2 (08:21→12:21)
[2024-09-19] MEDS: ONDANSETRON 4MG/2ML VIAL 4 MG IV (08:22)
[2024-09-19] MEDS: HYDROCODONE 10MG/APAP 325MG TAB 1 TAB PO (08:22)
[2024-09-19] MEDS: PREGABALIN 50MG CAPSULE 100 MG PO ×3 (08:22→21:43)
[2024-09-19] MEDS: DOXYCYCLINE HYCL 100 MG TABLET PO ×2 (08:24→21:43)
[2024-09-19] MEDS: METOPROLOL SUCCINATE XL 25MG TABLET 12.5 MG PO (08:24)
[2024-09-19] MEDS: ASPIRIN EC 81MG TABLET 81 MG PO (08:24)
[2024-09-19] MEDS: PANTOPRAZOLE 40MG TABLET 40 MG PO ×2 (08:25→21:43)
[2024-09-19] MEDS: APIXABAN 5MG TABLET 5 MG PO ×2 (08:25→21:43)
[2024-09-19] MEDS: FAMOTIDINE 20MG TABLET 20 MG PO ×2 (08:25→21:43)
[2024-09-19] MEDS: NYSTATIN TOPICAL POWDER 30GM TP ×3 (08:25→16:35)
[2024-09-19] MEDS: INSULIN GLARGINE 100 UNITS/ML 3ML FLEXPEN 40 UNIT SUBCUT ×2 (08:26→21:43)
[2024-09-19] MEDS: POTASSIUM CHLORIDE 20MEQ TAB 40 MEQ PO ×3 (08:59→16:34)
[2024-09-19] MEDS: POLYETHYLENE GLYCOL 3350 17 GM PACKET 34 GM PO (12:11)
[2024-09-19] MEDS: SENNOSIDES 8.6MG/DOCUSATE 50MG TABLET 2 TAB PO ×2 (12:11→21:43)
[2024-09-19 12:35] LABS: POC Glucose,Bedside 192 (70-110)
--- NOTE | 2024-09-19 13:02 | P.PN_ITS ---
Subjective *Date: 09/19/24 *Time: 20:53 Interval history: Stable on room air. No nausea or vomiting. Diuresing well. Continues to have pain in legs. Afebrile. Tolerating antibiotics and diuretics Medical Exam Vital signs and Labs for Last 24 Hours: Vital Signs Temp Pulse Pulse Resp BP Pulse Ox O2 Del Method 09/19/24 12:31 Room Air 09/19/24 11:00 Room Air 09/19/24 08:35 Room Air 09/19/24 08:00 Room Air 09/19/24 07:50 97.9 F 74 17 103/55 L 97 Room Air 09/19/24 07:00 Room Air 09/19/24 05:00 Room Air 09/19/24 04:00 97.7 F 93 H 17 149/78 H 100 Room Air 09/19/24 03:00 Room Air 09/19/24 01:00 Room Air 09/19/24 00:00 98.6 F 98 H 16 161/75 H 97 Room Air 09/18/24 23:00 Room Air 09/18/24 21:00 Room Air 09/18/24 20:00 100 Room Air 09/18/24 20:00 98.6 F 64 17 132/75 100 Room Air 09/18/24 18:28 Room Air 09/18/24 17:00 Room Air 09/18/24 16:00 98.9 F 74 22 119/58 L 98 Room Air 09/18/24 14:44 Room Air Intake and Output 09/18/24 09/19/24 09/19/24 23:59 07:59 15:59 Intake Total 240 / 2325 100 / 460 360 / 460 Output Total 750 / 3325 1200 / 1200 Balance -510 / -1000 -1100 / -740 360 / -740 Intake: Intake, Oral Amount 240 / 1680 360 / 360 Intake, Total IV Amount 100 / 100 Meropenem 1 gm In 0.9 % Sodium 100 / 100 Chloride 100 ml @ 100 mls/hr IV Q8H [facility] Rx#:[id number] Output: Output, Urine Amount 750 / 3325 1200 / 1200 Other: Number of Unmeasured Voids 0 0 Weight 182.888 kg Patient Weight 09/19/24 23:59 Weight 182.888 kg Laboratory Results - last 24 hr 09/18/24 17:00: POC Glucose 256 H 09/18/24 21:35: POC Glucose 211 H 09/19/24 05:54: POC Glucose 326 H* 09/19/24 07:17: WBC 10.2, RBC 4.27 L, Hgb 9.3 L, Hct 30.5 L, MCV 71.4 L, MCH 21.8 L, MCHC 30.5 L, RDW 17.8 H, Plt Count 305, MPV 8.6, Neut % (Auto) 73.5, Lymph % (Auto) 14.6, [place] % (Auto) 10.3 H, Eos % (Auto) 0.5, Baso % (Auto) 0.4, Neut # (Auto) 7.5, Lymph # (Auto) 1.5, [place] # (Auto) 1.1 H, Eos # (Auto) 0.1, Baso # (Auto) 0.0, Sodium 131 L, Potassium 3.1 L D, Chloride 87 L, Carbon Dioxide 35 H, Anion Gap 12.1, BUN 36 H, Creatinine 1.30 H, Estimated Creat Clear 70, Estimated GFR 56 L, Est GFR ( Amer) 67, Glucose 271 H, Calcium 8.3 L, Magnesium 1.8 D, Total Bilirubin 0.7, AST 33, ALT 40 D, Alkaline Phosphatase 130 H, Total Protein 6.7, Albumin 3.4 L, Globulin 3.3 H, Albumin/Globulin Ratio 1.0 L 09/19/24 12:25: POC Glucose 192 H I & O for Labs for Last 24 Hours: Intake & Output 09/16/24 09/17/24 09/18/24 09/19/24 23:59 23:59 23:59 23:59 Intake Total 2640 / 2640 3085 / 3657 2225 / 2325 460 / 460 Output Total 3930 / 3980 3060 / 3660 2525 / 3325 1200 / 1200 Balance -1290 / -1340 25 / -3 -300 / -1000 -740 / -740 Weight 188.468 kg 182.072 kg 181.437 kg 182.888 kg Microbiology Reports for the Last 24 Hours: Microbiology 09/12/24 07:47 Leg,Left - Drainage Gram Stain - Final 09/12/24 07:47 Leg,Left - Drainage Wound Culture - Final Pseudomonas aeruginosa Klebsiella pneumoniae Proteus mirabilis Strep agalactiae - (group b) Constitutional: Present no acute distress, morbidly obese, chronically ill appearing and cooperative Head: Present atraumatic and normocephalic ENT: Present normal exam Comment:: Poor dentition Respiratory: Present distant breath sounds and normal respiratory effort; Absent accessory muscle use, respiratory distress, stridor, wheezes or crackles Cardiac: Present Reg Rate and Rhythm Comment:: Irregularly irregular, tachycardic GI: Present soft, distention and normal bowel sounds; Absent tenderness Rectal (male): Present normal inspection Comment:: Chronic stasis changes. Curlex wraps around bilateral legs. Weeping on left foot. Right foot dry. Edema showing improvement Skin: Present erythema (Bilateral lower legs) and wounds (Stasis ulceration, worse on right posterior leg) Neuro: Present Grossly Intact, alert, awake, oriented x 3 and moves all extremities Assessment and Plan *Assessment and plan (1) Acute on chronic heart failure with preserved ejection fraction (HFpEF): Status: Acute Category: Medical Code(s): I50.33 - Acute on chronic diastolic (congestive) heart failure (2) Venous stasis ulcer of both lower extremities without varicose veins: Status: Acute Category: Medical Code(s): I87.2 - Venous insufficiency (chronic) (peripheral); L97.919 - Non-pressure chronic ulcer of unspecified part of right lower leg with unspecified severity; L97.929 - Non-pressure chronic ulcer of unspecified part of left lower leg with unspecified severity (3) Peripheral vascular disease: Status: Acute Category: Medical Code(s): I73.9 - Peripheral vascular disease, unspecified (4) Cellulitis: Status: Acute Qualifiers: Laterality: unspecified laterality Site of cellulitis: extremity Site of cellulitis of extremity: lower extremity Qualified Code(s): L03.119 - Cellulitis of unspecified part of limb Category: Medical Code(s): L03.90 - Cellulitis, unspecified (5) Hypercalcemia: Status: Acute Category: Medical Code(s): E83.52 - Hypercalcemia (6) Chronic wound: Status: Acute Category: Medical Code(s): T14.8XXA - Other injury of unspecified body region, initial encounter (7) Bilateral edema of lower extremity: Status: Acute Category: Medical Code(s): R60.0 - Localized edema (8) Atrial fibrillation with RVR: Status: Acute Category: Medical Code(s): I48.91 - Unspecified atrial fibrillation (9) Morbid obesity: Status: Acute Category: Medical Code(s): E66.01 - Morbid (severe) obesity due to excess calories (10) Diabetic neuropathy: Status: Acute Qualifiers: Diabetes mellitus complication detail: diabetic polyneuropathy Diabetes mellitus type: type 2 Qualified Code(s): E11.42 - Type 2 diabetes mellitus with diabetic polyneuropathy Category: Medical Code(s): E11.40 - Type 2 diabetes mellitus with diabetic neuropathy, unspecified (11) Morbid obesity with BMI of 50.0-59.9, adult: Status: Acute Category: Medical Code(s): E66.01 - Morbid (severe) obesity due to excess calories; Z68.43 - Body mass index [BMI] 50.0-59.9, adult (12) Volume overload: Status: Acute Qualifiers: Hypervolemia type: unspecified Qualified Code(s): E87.70 - Fluid overload, unspecified Category: Medical Code(s): E87.70 - Fluid overload, unspecified (13) Microcytic anemia: Status: Acute Category: Medical Code(s): D50.9 - Iron deficiency anemia, unspecified (14) Adult failure to thrive: Status: Acute Category: Medical Code(s): R62.7 - Adult failure to thrive (15) LORI (obstructive sleep apnea): Status: Acute Category: Medical Code(s): G47.33 - Obstructive sleep apnea (adult) (pediatric) (16) Diabetes mellitus: Status: Acute Qualifiers: Diabetes mellitus complication status: with hyperglycemia 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 insulin 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: without fci use Diabetes mellitus type: type 2 Qualified Code(s): E11.65 - Type 2 diabetes mellitus with hyperglycemia Category: Medical Code(s): E11.9 - Type 2 diabetes mellitus without complications (17) Sacral wound: Status: Acute Qualifiers: Encounter type: initial encounter Qualified Code(s): S31.000A - Unspecified open wound of lower back and pelvis without penetration into retroperitoneum, initial encounter Category: Medical Code(s): S31.000A - Unspecified open wound of lower back and pelvis without penetration into retroperitoneum, initial encounter Plan Bebeto Christiansen is a 64-year-old male with morbid obesity, acute on chronic HFpEF, volume overload, lower extremity erythema, stasis ulcerations. Presented with worsening cellulitis and drainage of his legs. Discussed case with ER physician, request admission for antibiotics and further management. Medicine agreed to admit for further care. Creatinine showing improvement. Currently awaiting discharge to rehab. Continuing IV antibiotics. Cardiology assisting with care along with podiatry. Problems addressed as follows: #Acute on Chronic HFpEF #Anasarca #Atrial fibrillation #Hypertension #ATN ? Patient well-known to our facility, noncompliant to heart failure regimen. States he is always thirsty, drinks water/tea profusely at home. Returns volume overloaded. ? Initially started IV Bumex drip, unfortunately went into ATN. Kidney function has significantly improved since. -BUN 36, creatinine 1.3. Having negative daily volume status. -1.4 L in the past 24 hours. ? Continue Bumex to 3 mg 3 times daily, metolazone 5mg daily - For always feeling thirsty and drinking fluids profusely, extensively discussed importance of fluid restriction for his heart failure. Patient does acknowledge this, but does state that he is always thirsty. Recommended chewing gum, unsweetened mints. Patient states he will try unsweetened gum and jellybeans. Also discontinued paroxetine, duloxetine as this may be contributing to dry mouth. ? In addition, I do not believe that fluid restricting truly creates realistic environment for this patient especially due to dry mouth. He will invariably go home and drink as he feels appropriate due to dry mouth. As such, will find a diuretic regimen that is appropriate for him. ? DVT Dopplers ordered for lower extremities, patient refused. CTA lower extremity with runoff ordered due to nonhealing wounds, patient refused. ? After extensive conversations of severity of disease process and recurrent admissions, I was south with patient that this trend does not have a good prognosis and will continue to significantly shorten his life span. After consideration, patient states he is agreeable to short-term rehab. Case management assisting with placement. - repeat CBC, CMP, magnesium ordered for the morning #Lower extremity swelling, lymphedema # Bilateral lower extremity cellulitis #Multidrug-resistant cellulitis #Lower extremity pain ? Due to significant volume anasarca, lymphedema this has caused stasis and allowed opportunistic ESBL bacteria to grow including Klebsiella, Pseudomonas. - Wound care consulted to assist with management of ulcerations on legs. Continue dry dressing on wounds. ? Continues to have lower extremity pain. Caution with leg wraps. Tolerating current pain regimen with fair control - Tizanidine, pregabalin, [place] for lower extremity pain. ? Continue meropenem day 08/20. Last dose due on 09/24. Continue twice daily dosing ? Midline ready for IV meropenem upon discharge. Diabetes: - A1c worsening at 10.5. States he has been compliant. - Continue sliding scale insulin with additional 15 units with meals. Fingersticks ACHS. Resume Lantus 40 units twice daily. Monitor for tolerance. Morning glucose 271 -Diabetic diet of 1500 jone -Holding Jardiance due to risk for Marilin's gangrene given groin wounds and retracted penis Microcytic anemia ? Hemoglobin 9.3, stable. Received Venofer x1, consider second dose prior to discharge LORI: Consider oxygen at night versus CPAP after discussion with patient about his home regimen. On room air at this time; goal sats greater 90% Morbid obesity complicates all aspects of his care. Wound care consulted to assist with legs and stasis ulcers, refer to outpt wound care after DC Full code eliquis 5mg BID Diabetic diet
--- NOTE | 2024-09-19 14:46 | PC.NURSE ---
Aox4, up with assistance times 2 with walker to bsc, on RA, GUERRERO midline, purewick in place, pain meds given this shift, awaiting rehab.
[2024-09-19 17:03] LABS: POC Glucose,Bedside 169 (70-110)
[2024-09-19 22:02] LABS: POC Glucose,Bedside 176 (70-110)
[2024-09-20] VITALS: BP 76/55; PULSE 60; RESP 14; TEMP 36.9; O2SAT 96
[2024-09-20] MEDS: MEROPENEM 1 GM in 0.9 % SODIUM CHLORIDE 100 ML IV ×3 (01:12→17:01)
[2024-09-20 04:00] VITALS: BP 131/75; PULSE 89; RESP 16; TEMP 36.9; O2SAT 92
[2024-09-20] MEDS: humaLOG 100 UNITS/ML 10ML VIAL (SSI) 15 UNIT SUBCUT ×3 (06:20→17:01)
[2024-09-20] MEDS: TIZANIDINE 4MG TABLET 4 MG PO ×2 (06:20→14:18)
[2024-09-20] MEDS: humaLOG 100 UNITS/ML 10ML VIAL (SSI) SUBCUT ×3 (06:21→17:02)
[2024-09-20 06:31] LABS: POC Glucose,Bedside 216 (70-110)
[2024-09-20 07:18] LABS: Basophils # 0.1 K/mm3 (0-0.2); Basophils % 0.3 % (0.1-2.0); Hematocrit 36.8 % (42.0-52.0); Immature Granulocytes # 0.13 10^3uL; Immature Granulocytes % 0.5 %; Lymphocytes # 2.3 K/mm3 (0.7-4.5); Lymphocytes % 9.5 % (10-50); Mean Corpuscular HGB Conc 30.7 g/dL (31.8-35.4); Mean Corpuscular Hemoglobin 21.6 pg (27.0-31.2); Mean Corpuscular Volume 70.5 fl (80-94); Mean Platelet Volume 9.2 fl (7.4-10.4); Monocytes % 8.5 % (1.7-9.3); Neutrophils # 19.3 K/mm3 (1.8-7.8); Neutrophils % 81.2 % (37.0-80.0); Nucleated Red Blood Cells # 0.04 10^3/uL; Nucleated Red Blood Cells % 0.2 %; Platelet Count 399 K/mm3 (142-424); Red Blood Count 5.22 M/mm3 (4.60-6.20); Red Cell Distribution Width 18.4 % (11.5-17.5); Red Cell Distribution Width-SD 44.1 fL; White Blood Count 23.8 K/mm3 (4.8-10.8)
[2024-09-20 07:19] LABS: Chloride 89 mmol/L (98-107)
[2024-09-20 07:20] LABS: Potassium 4.3 mmoL/L (3.5-5.1); Sodium 129 mmol/L (136-145)
[2024-09-20 07:21] LABS: MANUAL DIFFERENTIAL MANUAL DIFFERENTIAL (MANUAL DIFF)
[2024-09-20 07:22] LABS: Alanine Aminotransferase 48 U/L (12-78); Alkaline Phosphatase 178 U/L (38-126); Anion Gap 15.3 mEq/L (5-15); Aspartate Amino Transferase 33 U/L (17-59); Bilirubin,Total 1.1 mg/dl (0.2-1.3); Blood Urea Nitrogen 51 mg/dl (9-20); Calcium 9.4 mg/dl (8.4-10.2); Carbon Dioxide 29 mmol/L (22.0-30.0); Creatinine Clearance Estimated 36 mL/min (50-200); Estimated Glomerular Filt Rate 26 ml/min (>60); GFR (African American) 32 ML/MIN (>60); Globulin 4.1 g/dL (1.3-3.2); Glucose 261 mg/dl (74-100); Total Protein,Serum 8.1 g/dl (6.3-8.2)
[2024-09-20 08:00] VITALS: BP 93/34; PULSE 81; RESP 18; TEMP 37.5; O2SAT 99
[2024-09-20] MEDS: PREGABALIN 50MG CAPSULE 100 MG PO ×3 (08:24→20:23)
[2024-09-20] MEDS: APIXABAN 5MG TABLET 5 MG PO ×2 (08:26→20:23)
[2024-09-20] MEDS: metOLazone 2.5MG TABLET 5 MG PO (08:26)
[2024-09-20] MEDS: ASPIRIN EC 81MG TABLET 81 MG PO (08:26)
[2024-09-20] MEDS: PANTOPRAZOLE 40MG TABLET 40 MG PO ×2 (08:26→20:23)
[2024-09-20] MEDS: DOXYCYCLINE HYCL 100 MG TABLET PO ×2 (08:26→20:23)
[2024-09-20] MEDS: FAMOTIDINE 20MG TABLET 20 MG PO ×2 (08:26→20:22)
[2024-09-20] MEDS: SENNOSIDES 8.6MG/DOCUSATE 50MG TABLET 2 TAB PO (08:27)
[2024-09-20] MEDS: METOPROLOL SUCCINATE XL 25MG TABLET 12.5 MG PO (08:29)
[2024-09-20] MEDS: NYSTATIN TOPICAL POWDER 30GM TP ×3 (08:30→21:29)
[2024-09-20] MEDS: IRON SUCROSE COMPLEX 200 MG in 0.9 % SODIUM CHLORIDE 100 ML 220 MG IV (08:34)
[2024-09-20 09:06] LABS: Lymphocytes % 13 % (10-50); Monocytes % 6 % (2-9); Neutrophils % 81 % (42-76); Platelet Estimate Normal; RBC Morphology Normal; Total Cells Counted 100
[2024-09-20 09:32] LABS: Hemoglobin 11.2 g/dL (14.1-18.0)
[2024-09-20 09:53] LABS: POC Glucose,Bedside 223 (70-110)
[2024-09-20] MEDS: INSULIN GLARGINE 100 UNITS/ML 3ML FLEXPEN 40 UNIT SUBCUT (10:28)
[2024-09-20 11:46] LABS: Basophils % 0.2 % (0.1-2.0); Eosinophils % 0.1 % (0.1-12.0); Hematocrit 32.7 % (42.0-52.0); Immature Granulocytes # 0.13 10^3uL; Immature Granulocytes % 0.6 %; Lymphocytes # 1.8 K/mm3 (0.7-4.5); Lymphocytes % 8.4 % (10-50); Mean Corpuscular HGB Conc 30.6 g/dL (31.8-35.4); Mean Corpuscular Hemoglobin 21.5 pg (27.0-31.2); Mean Corpuscular Volume 70.3 fl (80-94); Mean Platelet Volume 8.6 fl (7.4-10.4); Monocytes # 2.1 K/mm3 (0.1-1.0); Monocytes % 9.6 % (1.7-9.3); Neutrophils # 17.3 K/mm3 (1.8-7.8); Neutrophils % 81.1 % (37.0-80.0); Nucleated Red Blood Cells # 0 10^3/uL; Nucleated Red Blood Cells % 0 %; Platelet Count 306 K/mm3 (142-424); Red Blood Count 4.65 M/mm3 (4.60-6.20); Red Cell Distribution Width-SD 44.2 fL; White Blood Count 21.3 K/mm3 (4.8-10.8)
[2024-09-20 12:00] VITALS: BP 112/61; PULSE 79; RESP 17; O2SAT 100
[2024-09-20 12:03] LABS: Chloride 87 mmol/L (98-107)
[2024-09-20 12:04] LABS: Hemoglobin 9.9 g/dL (14.1-18.0); Potassium 4.2 mmoL/L (3.5-5.1); Sodium 127 mmol/L (136-145)
[2024-09-20 12:06] LABS: Blood Urea Nitrogen 57 mg/dl (9-20); Creatinine Clearance Estimated 35 mL/min (50-200); Estimated Glomerular Filt Rate 25 ml/min (>60); GFR (African American) 30 ML/MIN (>60)
[2024-09-20 12:07] LABS: Anion Gap 11.2 mEq/L (5-15); Carbon Dioxide 33 mmol/L (22.0-30.0); Glucose 229 mg/dl (74-100)
[2024-09-20] MEDS: HYDROCODONE 10MG/APAP 325MG TAB 1 TAB PO ×2 (14:18→20:23)
[2024-09-20 14:57] LABS: POC Glucose,Bedside 229 (70-110)
[2024-09-20 16:00] VITALS: BP 118/66; PULSE 69; RESP 19; O2SAT 94
--- NOTE | 2024-09-20 16:44 | P.PN_ITS ---
Subjective *Date: 09/20/24 *Time: 16:44 Interval history: Significant weeping from left leg. Dressings taken off today, significant maceration of leg. No foul odor. Stable on room air. Afebrile. Did have a change in his labs today with bump in white count and bump in creatinine. Tole rating p.o. intake. Having bowel movements. Loose stools today after starting stool softeners yesterday. No nausea or vomiting. Medical Exam Vital signs and Labs for Last 24 Hours: Vital Signs Temp Pulse Resp BP Pulse Ox O2 Del Method 09/20/24 15:00 Room Air 09/20/24 13:00 Room Air 09/20/24 12:00 79 17 112/61 100 Room Air 09/20/24 11:00 Room Air 09/20/24 09:00 Room Air 09/20/24 08:00 Room Air 09/20/24 08:00 99.5 F 81 18 93/34 L 99 Room Air 09/20/24 07:00 Room Air 09/20/24 04:42 Room Air 09/20/24 04:00 98.4 F 89 16 131/75 92 L 09/20/24 03:00 Room Air 09/20/24 01:00 Room Air 09/20/24 00:00 98.4 F 60 14 76/55 L 96 Room Air 09/19/24 23:00 Room Air 09/19/24 21:00 Room Air 09/19/24 21:00 89/56 L 97 Room Air 09/19/24 20:00 Room Air 09/19/24 20:00 98.8 F 64 13 62/31 L 79 L Room Air 09/19/24 18:19 Room Air 09/19/24 17:00 Room Air Intake and Output 09/20/24 09/20/24 09/20/24 07:59 15:59 23:59 Intake Total 150 / 660 510 / 660 Output Total 400 / 1800 1400 / 1800 Balance -250 / -1140 -890 / -1140 Intake: Intake, Oral Amount 150 / 660 510 / 660 Output: Output, Urine Amount 400 / 1800 1400 / 1800 Other: Number of Voids 1 Number of Unmeasured Voids 0 1 Number of Bowel Movements 1 Laboratory Results - last 24 hr 09/19/24 16:26: POC Glucose 169 H 09/19/24 21:42: POC Glucose 176 H 09/20/24 06:19: POC Glucose 216 H 09/20/24 07:03: WBC 23.8 H* D, RBC 5.22, Hgb 11.2 L D, Hct 36.8 L, MCV 70.5 L, MCH 21.6 L, MCHC 30.7 L, RDW 18.4 H, Plt Count 399 D, MPV 9.2, Neut % (Auto) 81.2 H, Lymph % (Auto) 9.5 L, [place] % (Auto) 8.5, Eos % (Auto) 0.0 L, Baso % (Auto) 0.3, Neut # (Auto) 19.3 H, Lymph # (Auto) 2.3, [place] # (Auto) 2.0 H, Eos # (Auto) 0.0, Baso # (Auto) 0.1, Total Counted 100, Neutrophils % (Manual) 81 H, Lymphocytes % (Manual) 13, Monocytes % (Manual) 6, Platelet Estimate Normal, RBC Morphology Normal, Sodium 129 L, Potassium 4.3 D, Chloride 89 L, Carbon Dioxide 29, Anion Gap 15.3 H, BUN 51 H D, Creatinine 2.50 H D, Estimated Creat Clear 36, Estimated GFR 26 L, Est GFR ( Amer) 32 L D, Glucose 261 H, Calcium 9.4, Magnesium 2.0 D, Total Bilirubin 1.1, AST 33, ALT 48, Alkaline Phosphatase 178 H, Total Protein 8.1, Albumin 4.0 D, Globulin 4.1 H, Albumin/Globulin Ratio 1.0 L 09/20/24 09:46: POC Glucose 223 H 09/20/24 11:08: POC Glucose 229 H 09/20/24 11:38: WBC 21.3 H*, RBC 4.65, Hgb 9.9 L D, Hct 32.7 L, MCV 70.3 L, MCH 21.5 L, MCHC 30.6 L, RDW 18.0 H, Plt Count 306, MPV 8.6, Neut % (Auto) 81.1 H, Lymph % (Auto) 8.4 L, [place] % (Auto) 9.6 H, Eos % (Auto) 0.1, Baso % (Auto) 0.2, Neut # (Auto) 17.3 H, Lymph # (Auto) 1.8, [place] # (Auto) 2.1 H, Eos # (Auto) 0.0, Baso # (Auto) 0.0, Sodium 127 L, Potassium 4.2, Chloride 87 L, Carbon Dioxide 33 H, Anion Gap 11.2, BUN 57 H, Creatinine 2.60 H, Estimated Creat Clear 35, Estimated GFR 25 L, Est GFR ( Amer) 30 L, Glucose 229 H, Calcium 9.0 I & O for Labs for Last 24 Hours: Intake & Output 09/17/24 09/18/24 09/19/24 09/20/24 23:59 23:59 23:59 23:59 Intake Total 3085 / 3657 2225 / 2325 560 / 710 660 / 660 Output Total 3060 / 3660 2525 / 3325 1200 / 1400 1800 / 1800 Balance 25 / -3 -300 / -1000 -640 / -690 -1140 / -1140 Weight 182.072 kg 181.437 kg 182.888 kg Microbiology Reports for the Last 24 Hours: Microbiology 09/12/24 07:47 Foot,Right - Wound Aerobic Organism ID Result 1 - Final Not Reportable 09/12/24 07:47 Foot,Right - Wound Aerobic Organism ID Result 2 - Final Not Reportable 09/12/24 07:47 Foot,Right - Wound Aerobic Organism ID Result 3 - Final Not Reportable 09/12/24 07:47 Foot,Right - Wound Aerobic Organism ID Result 4 - Final Not Reportable 09/12/24 07:47 Foot,Right - Wound Antimicrobic Susceptibility - Final Not Reportable 09/12/24 07:47 Foot,Right - Wound Gram Stain - Final 09/12/24 07:47 Foot,Right - Wound Wound Culture - Preliminary Acinetobacter baumannii Constitutional: Present mild distress, morbidly obese, chronically ill appearing and cooperative Head: Present atraumatic and normocephalic ENT: Present normal exam Comment:: Poor dentition Respiratory: Present distant breath sounds and normal respiratory effort; Absent accessory muscle use, respiratory distress, stridor, wheezes or crackles Cardiac: Present Reg Rate and Rhythm Comment:: Irregularly irregular, tachycardic GI: Present soft, distention and normal bowel sounds; Absent tenderness Rectal (male): Present normal inspection Comment:: Chronic stasis changes. Maceration of left lower extremity, weeping from leg. Dressing was saturated, removed on rounds. Ulcerations present on leg. Poor circulation to feet, discoloration of left foot that improves with elevation. Right leg and foot dry Skin: Present erythema (Bilateral lower legs) and wounds (Stasis ulceration, worse on right posterior leg) Neuro: Present Grossly Intact, alert, awake, oriented x 3 and moves all extremities Assessment and Plan *Assessment and plan (1) Acute on chronic heart failure with preserved ejection fraction (HFpEF): Status: Acute Category: Medical Code(s): I50.33 - Acute on chronic diastolic (congestive) heart failure (2) Venous stasis ulcer of both lower extremities without varicose veins: Status: Acute Category: Medical Code(s): I87.2 - Venous insufficiency (chronic) (peripheral); L97.919 - Non-pressure chronic ulcer of unspecified part of right lower leg with unspecified severity; L97.929 - Non-pressure chronic ulcer of unspecified part of left lower leg with unspecified severity (3) Peripheral vascular disease: Status: Acute Category: Medical Code(s): I73.9 - Peripheral vascular disease, unspecified (4) Cellulitis: Status: Acute Qualifiers: Site of cellulitis: extremity Site of cellulitis of extremity: lower extremity Laterality: unspecified laterality Qualified Code(s): L03.119 - Cellulitis of unspecified part of limb Category: Medical Code(s): L03.90 - Cellulitis, unspecified (5) Hypercalcemia: Status: Acute Category: Medical Code(s): E83.52 - Hypercalcemia (6) Chronic wound: Status: Acute Category: Medical Code(s): T14.8XXA - Other injury of unspecified body region, initial encounter (7) Bilateral edema of lower extremity: Status: Acute Category: Medical Code(s): R60.0 - Localized edema (8) Atrial fibrillation with RVR: Status: Acute Category: Medical Code(s): I48.91 - Unspecified atrial fibrillation (9) Morbid obesity: Status: Acute Category: Medical Code(s): E66.01 - Morbid (severe) obesity due to excess calories (10) Diabetic neuropathy: Status: Acute Qualifiers: Diabetes mellitus type: type 2 Diabetes mellitus complication detail: diabetic polyneuropathy Qualified Code(s): E11.42 - Type 2 diabetes mellitus with diabetic polyneuropathy Category: Medical Code(s): E11.40 - Type 2 diabetes mellitus with diabetic neuropathy, unspecified (11) Morbid obesity with BMI of 50.0-59.9, adult: Status: Acute Category: Medical Code(s): E66.01 - Morbid (severe) obesity due to excess calories; Z68.43 - Body mass index [BMI] 50.0-59.9, adult (12) Volume overload: Status: Acute Qualifiers: Hypervolemia type: unspecified Qualified Code(s): E87.70 - Fluid overload, unspecified Category: Medical Code(s): E87.70 - Fluid overload, unspecified (13) Microcytic anemia: Status: Acute Category: Medical Code(s): D50.9 - Iron deficiency anemia, unspecified (14) Adult failure to thrive: Status: Acute Category: Medical Code(s): R62.7 - Adult failure to thrive (15) LORI (obstructive sleep apnea): Status: Acute Category: Medical Code(s): G47.33 - Obstructive sleep apnea (adult) (pediatric) (16) Diabetes mellitus: Status: Acute Qualifiers: Diabetes mellitus type: type 2 Diabetes mellitus assisted insulin use: without 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 use Diabetes mellitus complication status: with hyperglycemia Qualified Code(s): E11.65 - Type 2 diabetes mellitus with hyperglycemia Category: Medical Code(s): E11.9 - Type 2 diabetes mellitus without complications (17) Sacral wound: Status: Acute Qualifiers: Encounter type: initial encounter Qualified Code(s): S31.000A - Unspecified open wound of lower back and pelvis without penetration into retroperitoneum, initial encounter Category: Medical Code(s): S31.000A - Unspecified open wound of lower back and pelvis without penetration into retroperitoneum, initial encounter Plan Bebeto Christiansen is a 64-year-old male with morbid obesity, acute on chronic HFpEF, volume overload, lower extremity erythema, stasis ulcerations. Presented with worsening cellulitis and drainage of his legs. Discussed case with ER physician, request admission for antibiotics and further management. Medicine agreed to admit for further care. Continuing antibiotics for cellulitis. Holding diuresis today due to bump in creatinine. Cardiology and wound care assisting with care. Problems addressed as follows: #Acute on Chronic HFpEF #Anasarca #Atrial fibrillation #Hypertension #ATN ? Patient well-known to our facility, noncompliant to heart failure regimen. States he is always thirsty, drinks water/tea profusely at home. Returns volume overloaded. ? Holding diuretics today. Creatinine bumped to 2.5, BUN 51. Repeat BMP ordered for the afternoon. Repeat CBC, CMP, magnesium ordered for the morning. Creatinine had been doing well at approximately 1.3-1.4 for the past few days. - Holding Bumex, will hold metolazone, reevaluate tomorrow - For always feeling thirsty and drinking fluids profusely, extensively discussed importance of fluid restriction for his heart failure. Patient does acknowledge this, but does state that he is always thirsty. Recommended chewing gum, unsweetened mints. Patient states he will try unsweetened gum and jellybeans. Also discontinued paroxetine, duloxetine as this may be contributing to dry mouth. ? In addition, I do not believe that fluid restricting truly creates realistic environment for this patient especially due to dry mouth. He will invariably go home and drink as he feels appropriate due to dry mouth. As such, will find a diuretic regimen that is appropriate for him. ? DVT Dopplers ordered for lower extremities, patient refused. CTA lower extremity with runoff ordered due to nonhealing wounds, patient refused. ? After extensive conversations of severity of disease process and recurrent admissions, I was south with patient that this trend does not have a good prognosis and will continue to significantly shorten his life span. After consideration, patient states he is agreeable to short-term rehab. Case management assisting with placement. #Lower extremity swelling, lymphedema # Bilateral lower extremity cellulitis #Multidrug-resistant cellulitis #Lower extremity pain ? Due to significant volume anasarca, lymphedema this has caused stasis and allowed opportunistic ESBL bacteria to grow including Klebsiella, Pseudomonas. - Wound care consulted to assist with management of ulcerations on legs. Continue dry dressing on wounds. -White count bumped to 23.8 today. Patient afebrile. Unclear the source. Concern for stress reaction. Hemoglobin increased as well. Component of hemoconcentration. ? Continues to have lower extremity pain. Caution with leg wraps. Tolerating current pain regimen with fair control - Tizanidine, pregabalin, [place] for lower extremity pain. ? Continue meropenem day 6/10. Last dose due on 09/24. Continue twice daily do sing -Continue doxycycline 100 mg twice daily for 10 days ? Midline ready for IV meropenem upon discharge. Diabetes: - A1c worsening at 10.5. States he has been compliant. - Morning glucose 261. Continue sliding scale insulin with additional 15 units with meals. Fingersticks ACHS. lantus 40 units twice daily. Monitor for tolerance. Morning glucose 271 -Diabetic diet of 1500 jone -Holding Jardiance due to risk for Marilin's gangrene given groin wounds and retracted penis Microcytic anemia ? Hemoglobin 10 stable. Repeat dose of Venofer ordered for this morning. This will be his second dose during admission LORI: Consider oxygen at night versus CPAP after discussion with patient about his home regimen. On room air at this time; goal sats greater 90% Morbid obesity complicates all aspects of his care. Wound care consulted to assist with legs and stasis ulcers, refer to outpt wound care after DC Full code eliquis 5mg BID Diabetic diet
[2024-09-20 17:13] LABS: POC Glucose,Bedside 220 (70-110)
[2024-09-20 19:46] VITALS: BP 116/65; PULSE 97; RESP 17; TEMP 36.9; O2SAT 98
[2024-09-21] VITALS (7 sets, daily range): BP systolic 90–136; BP diastolic 52–68; PULSE 56–105; RESP 14–20; TEMP 36.4–36.8; O2SAT 96–100; BMI 49.4
[2024-09-21] MEDS: HYDROCODONE 10MG/APAP 325MG TAB 1 TAB PO ×3 (00:12→21:45)
[2024-09-21] MEDS: TIZANIDINE 4MG TABLET 4 MG PO ×3 (00:12→21:45)
[2024-09-21] MEDS: MEROPENEM 1 GM in 0.9 % SODIUM CHLORIDE 100 ML IV ×3 (00:24→17:01)
[2024-09-21 01:50] LABS: POC Glucose,Bedside 117 (70-110)
--- NOTE | 2024-09-21 04:58 | PC.NURSE ---
Pt. is A/ox4. Pt. is on RA. Pt. remained up in chair throughout shift. Pt. used walker with assist x2 from BSC to chair. Pt. complained of leg pain, treated per jun. BLE dressings were changed today by previous shift. Pt. has open bleeding wounds under his scrotum/ buttock, barrier cream was placed unable to place dressing due to moisture. Pt. has purewick in place. Pt. has a GUERRERO midline. Pt. is awaiting rehab. Call light is in reach.
[2024-09-21 05:54] LABS: POC Glucose,Bedside 189 (70-110)
[2024-09-21] MEDS: humaLOG 100 UNITS/ML 10ML VIAL (SSI) 15 UNIT SUBCUT ×3 (06:11→16:56)
[2024-09-21] MEDS: humaLOG 100 UNITS/ML 10ML VIAL (SSI) SUBCUT ×4 (06:11→21:45)
[2024-09-21 07:36] LABS: Basophils % 0.2 % (0.1-2.0); Eosinophils # 0.3 Kmm3 (0.0-0.4); Eosinophils % 2.2 % (0.1-12.0); Immature Granulocytes # 0.08 10^3uL; Immature Granulocytes % 0.7 %; Lymphocytes # 1.6 K/mm3 (0.7-4.5); Lymphocytes % 13.4 % (10-50); Mean Corpuscular Hemoglobin 21.4 pg (27.0-31.2); Mean Corpuscular Volume 71.3 fl (80-94); Mean Platelet Volume 9.8 fl (7.4-10.4); Monocytes # 1.2 K/mm3 (0.1-1.0); Neutrophils # 8.8 K/mm3 (1.8-7.8); Neutrophils % 73.5 % (37.0-80.0); Nucleated Red Blood Cells # 0 10^3/uL; Nucleated Red Blood Cells % 0 %; Platelet Count 324 K/mm3 (142-424); Red Blood Count 4.07 M/mm3 (4.60-6.20); Red Cell Distribution Width 17.7 % (11.5-17.5); Red Cell Distribution Width-SD 44.6 fL
--- NOTE | 2024-09-21 07:47 | P.PN_ITS ---
Subjective *Date: 09/21/24 *Time: 07:47 Medical Exam Vital signs and Labs for Last 24 Hours: Vital Signs Temp Pulse Resp BP Pulse Ox O2 Del Method 09/21/24 07:00 Room Air 09/21/24 05:00 Room Air 09/21/24 04:00 97.8 F 56 L 16 128/68 96 Room Air 09/21/24 03:00 Room Air 09/21/24 01:00 Room Air 09/21/24 00:00 97.7 F 105 H 17 136/66 99 Room Air 09/20/24 23:00 Room Air 09/20/24 21:00 Room Air 09/20/24 20:00 Room Air 09/20/24 19:46 98.4 F 97 H 17 116/65 98 Room Air 09/20/24 18:02 Room Air 09/20/24 17:00 Room Air 09/20/24 16:00 69 19 118/66 94 L Room Air 09/20/24 15:00 Room Air 09/20/24 13:00 Room Air 09/20/24 12:00 79 17 112/61 100 Room Air 09/20/24 11:00 Room Air 09/20/24 09:00 Room Air 09/20/24 08:00 Room Air 09/20/24 08:00 99.5 F 81 18 93/34 L 99 Room Air Intake and Output 09/20/24 09/20/24 09/21/24 15:59 23:59 07:59 Intake Total 510 / 1210 450 / 1210 100 / 100 Output Total 1400 / 2701 901 / 2701 200 / 200 Balance -890 / -1491 -451 / -1491 -100 / -100 Intake: Intake, Oral Amount 510 / 1110 450 / 1110 Intake, Total IV Amount 100 / 100 Meropenem 1 gm In 0.9 % Sodium 100 / 100 Chloride 100 ml @ 100 mls/hr IV Q8H [facility] Rx#:[id number] Output: Output, Urine Amount 1400 / 2700 900 / 2700 200 / 200 Output, Stool Amount 1 / 1 Other: Number of Voids 1 Number of Unmeasured Voids 1 0 Number of Bowel Movements 1 1 Weight 180.394 kg Patient Weight 09/21/24 23:59 Weight 180.394 kg Laboratory Results - last 24 hr 09/20/24 07:03: Hgb 11.2 L D, Total Counted 100, Neutrophils % (Manual) 81 H, Lymphocytes % (Manual) 13, Monocytes % (Manual) 6, Platelet Estimate Normal, RBC Morphology Normal, Sodium 129 L, Potassium 4.3 D, Chloride 89 L, Carbon Dioxide 29, Anion Gap 15.3 H, BUN 51 H D, Creatinine 2.50 H D, Estimated Creat Clear 36, Estimated GFR 26 L, Est GFR ( Amer) 32 L D, Glucose 261 H, Calcium 9.4, Magnesium 2.0 D, Total Bilirubin 1.1, AST 33, ALT 48, Alkaline Phosphatase 178 H, Total Protein 8.1, Albumin 4.0 D, Globulin 4.1 H, Albumin/Globulin Ratio 1.0 L 09/20/24 09:46: POC Glucose 223 H 09/20/24 11:08: POC Glucose 229 H 09/20/24 11:38: WBC 21.3 H*, RBC 4.65, Hgb 9.9 L D, Hct 32.7 L, MCV 70.3 L, MCH 21.5 L, MCHC 30.6 L, RDW 18.0 H, Plt Count 306, MPV 8.6, Neut % (Auto) 81.1 H, Lymph % (Auto) 8.4 L, [place] % (Auto) 9.6 H, Eos % (Auto) 0.1, Baso % (Auto) 0.2, Neut # (Auto) 17.3 H, Lymph # (Auto) 1.8, [place] # (Auto) 2.1 H, Eos # (Auto) 0.0, Baso # (Auto) 0.0, Sodium 127 L, Potassium 4.2, Chloride 87 L, Carbon Dioxide 33 H, Anion Gap 11.2, BUN 57 H, Creatinine 2.60 H, Estimated Creat Clear 35, Estimated GFR 25 L, Est GFR ( Amer) 30 L, Glucose 229 H, Calcium 9.0 09/20/24 16:58: POC Glucose 220 H 09/20/24 20:31: POC Glucose 117 H 09/21/24 05:47: POC Glucose 189 H 09/21/24 06:58: WBC 12.0 H D, RBC 4.07 L, Hct 29.0 L, MCV 71.3 L, MCH 21.4 L, MCHC 30.0 L, RDW 17.7 H, Plt Count 324, MPV 9.8, Neut % (Auto) 73.5, Lymph % (Auto) 13.4, [place] % (Auto) 10.0 H, Eos % (Auto) 2.2, Baso % (Auto) 0.2, Neut # (Auto) 8.8 H, Lymph # (Auto) 1.6, [place] # (Auto) 1.2 H, Eos # (Auto) 0.3, Baso # (Auto) 0.0 I & O for Labs for Last 24 Hours: Intake & Output 09/18/24 09/19/24 09/20/24 09/21/24 23:59 23:59 23:59 23:59 Intake Total 2225 / 2325 560 / 710 1110 / 1210 100 / 100 Output Total 2525 / 3325 1200 / 1400 2701 / 2701 200 / 200 Balance -300 / -1000 -640 / -690 -1591 / -1491 -100 / -100 Weight 181.437 kg 182.888 kg 180.394 kg Microbiology Reports for the Last 24 Hours: Microbiology 09/12/24 07:47 Foot,Right - Wound Aerobic Organism ID Result 1 - Final Not Reportable 09/12/24 07:47 Foot,Right - Wound Aerobic Organism ID Result 2 - Final Not Reportable 09/12/24 07:47 Foot,Right - Wound Aerobic Organism ID Result 3 - Final Not Reportable 09/12/24 07:47 Foot,Right - Wound Aerobic Organism ID Result 4 - Final Not Reportable 09/12/24 07:47 Foot,Right - Wound Antimicrobic Susceptibility - Final Not Reportable The patient's infection will respond to the chosen ABx?: Yes Is the patient receiving the right drug, dose, and route?: Yes Could a more targeted ABx be ordered?: No (Multiple organisms in wound cx, wbc down, afebrile, cont for 10 days.)
[2024-09-21 07:49] LABS: Albumin Level 3.1 g/dl (3.5-5.0); Chloride 87 mmol/L (98-107); Potassium 3.5 mmoL/L (3.5-5.1); Sodium 126 mmol/L (136-145)
[2024-09-21 07:51] LABS: Blood Urea Nitrogen 66 mg/dl (9-20); Creatinine Clearance Estimated 41 mL/min (50-200); Estimated Glomerular Filt Rate 30 ml/min (>60); GFR (African American) 37 ML/MIN (>60)
[2024-09-21 07:52] LABS: Alanine Aminotransferase 23 U/L (12-78); Alkaline Phosphatase 141 U/L (38-126); Anion Gap 8.5 mEq/L (5-15); Aspartate Amino Transferase 22 U/L (17-59); Bilirubin,Total 0.5 mg/dl (0.2-1.3); Calcium 8.8 mg/dl (8.4-10.2); Carbon Dioxide 34 mmol/L (22.0-30.0); Globulin 3.1 g/dL (1.3-3.2); Glucose 201 mg/dl (74-100); Total Protein,Serum 6.2 g/dl (6.3-8.2)
[2024-09-21 08:24] LABS: Hemoglobin 8.8 g/dL (14.1-18.0)
[2024-09-21] MEDS: NYSTATIN TOPICAL POWDER 30GM TP ×4 (09:58→21:49)
[2024-09-21] MEDS: PREGABALIN 50MG CAPSULE 100 MG PO ×3 (09:59→21:30)
[2024-09-21] MEDS: METOPROLOL SUCCINATE XL 25MG TABLET 12.5 MG PO (10:44)
[2024-09-21] MEDS: APIXABAN 5MG TABLET 5 MG PO ×2 (10:44→21:30)
[2024-09-21] MEDS: ASPIRIN EC 81MG TABLET 81 MG PO (10:44)
[2024-09-21] MEDS: PANTOPRAZOLE 40MG TABLET 40 MG PO ×2 (10:47→21:30)
[2024-09-21] MEDS: DOXYCYCLINE HYCL 100 MG TABLET PO ×2 (10:49→21:30)
[2024-09-21] MEDS: HYDROCODONE/APAP 5/325 MG TABLET 1 TAB PO ×2 (10:54→16:54)
[2024-09-21 13:52] LABS: POC Glucose,Bedside 190 (70-110)
[2024-09-21] MEDS: ONDANSETRON 4MG/2ML VIAL 4 MG IV ×2 (16:06→23:47)
[2024-09-21 16:19] LABS: POC Glucose,Bedside 212 (70-110)
--- NOTE | 2024-09-21 16:25 | P.PN_ITS ---
Subjective *Date: 09/21/24 *Time: 19:12 Interval history: Patient stable on room air. Has decided he does not want to go to rehab any longer. Stating he has things he needs to take care of at home. Wants to go back home with his sister when medically appropriate. Afebrile. No nausea or vomiting. Continuing to have bowel movements today Medical Exam Vital signs and Labs for Last 24 Hours: Vital Signs Temp Pulse Pulse Resp BP Pulse Ox O2 Del Method 09/21/24 12:00 97.8 F 76 20 90/52 L 100 Room Air 09/21/24 09:00 Room Air 09/21/24 08:00 97.6 F 90 14 90/55 L 98 Room Air 09/21/24 07:00 Room Air 09/21/24 05:00 Room Air 09/21/24 04:00 97.8 F 56 L 16 128/68 96 Room Air 09/21/24 03:00 Room Air 09/21/24 01:00 Room Air 09/21/24 00:00 97.7 F 105 H 17 136/66 99 Room Air 09/20/24 23:00 Room Air 09/20/24 21:00 Room Air 09/20/24 20:00 Room Air 09/20/24 19:46 98.4 F 97 H 17 116/65 98 Room Air 09/20/24 18:02 Room Air 09/20/24 17:00 Room Air Intake and Output 09/21/24 09/21/24 09/21/24 07:59 15:59 23:59 Intake Total 100 / 1120 1020 / 1120 Output Total 200 / 900 700 / 900 Balance -100 / 220 320 / 220 Intake: Intake, Oral Amount 1020 / 1020 Intake, Total IV Amount 100 / 100 Meropenem 1 gm In 0.9 % Sodium 100 / 100 Chloride 100 ml @ 100 mls/hr IV Q8H [facility] Rx#:[id number] Output: Output, Urine Amount 200 / 900 700 / 900 Other: Number of Unmeasured Voids 0 0 Number of Bowel Movements 1 1 Weight 180.394 kg Patient Weight 09/21/24 23:59 Weight 180.394 kg Laboratory Results - last 24 hr 09/20/24 16:58: POC Glucose 220 H 09/20/24 20:31: POC Glucose 117 H 09/21/24 05:47: POC Glucose 189 H 09/21/24 06:58: WBC 12.0 H D, RBC 4.07 L, Hgb 8.8 L D, Hct 29.0 L, MCV 71.3 L, MCH 21.4 L, MCHC 30.0 L, RDW 17.7 H, Plt Count 324, MPV 9.8, Neut % (Auto) 73.5, Lymph % (Auto) 13.4, [place] % (Auto) 10.0 H, Eos % (Auto) 2.2, Baso % (Auto) 0.2, Neut # (Auto) 8.8 H, Lymph # (Auto) 1.6, [place] # (Auto) 1.2 H, Eos # (Auto) 0.3, Baso # (Auto) 0.0, Sodium 126 L, Potassium 3.5, Chloride 87 L, Carbon Dioxide 34 H, Anion Gap 8.5, BUN 66 H, Creatinine 2.20 H, Estimated Creat Clear 41, Estimated GFR 30 L, Est GFR ( Amer) 37 L D, Glucose 201 H, Calcium 8.8, Magnesium 2.0, Total Bilirubin 0.5, AST 22 D, ALT 23 D, Alkaline Phosphatase 141 H, Total Protein 6.2 L, Albumin 3.1 L D, Globulin 3.1, Albumin/Globulin Ratio 1.0 L 09/21/24 13:37: POC Glucose 190 H 09/21/24 16:11: POC Glucose 212 H I & O for Labs for Last 24 Hours: Intake & Output 09/18/24 09/19/24 09/20/24 09/21/24 23:59 23:59 23:59 23:59 Intake Total 2225 / 2325 560 / 710 1110 / 1210 1120 / 1120 Output Total 2525 / 3325 1200 / 1400 2701 / 2701 900 / 900 Balance -300 / -1000 -640 / -690 -1591 / -1491 220 / 220 Weight 181.437 kg 182.888 kg 180.394 kg Constitutional: Present mild distress, morbidly obese, chronically ill appearing and cooperative Head: Present atraumatic and normocephalic ENT: Present normal exam Comment:: Poor dentition Respiratory: Present distant breath sounds and normal respiratory effort; Absent accessory muscle use, respiratory distress, stridor, wheezes or crackles Cardiac: Present Reg Rate and Rhythm Comment:: Irregularly irregular, tachycardic GI: Present soft, distention and normal bowel sounds; Absent tenderness Rectal (male): Present normal inspection Comment:: Dressings in place today are clean dry and intact. Mild discoloration of toes that is stable. Skin: Present erythema (Bilateral lower legs) and wounds (Stasis ulceration, worse on right posterior leg) Neuro: Present Grossly Intact, alert, awake, oriented x 3 and moves all extremities Assessment and Plan *Assessment and plan (1) Acute on chronic heart failure with preserved ejection fraction (HFpEF): Status: Acute Category: Medical Code(s): I50.33 - Acute on chronic diastolic (congestive) heart failure (2) Venous stasis ulcer of both lower extremities without varicose veins: Status: Acute Category: Medical Code(s): I87.2 - Venous insufficiency (chronic) (peripheral); L97.919 - Non-pressure chronic ulcer of unspecified part of right lower leg with unspecified severity; L97.929 - Non-pressure chronic ulcer of unspecified part of left lower leg with unspecified severity (3) Peripheral vascular disease: Status: Acute Category: Medical Code(s): I73.9 - Peripheral vascular disease, unspecified (4) Cellulitis: Status: Acute Qualifiers: Laterality: unspecified laterality Site of cellulitis: extremity Site of cellulitis of extremity: lower extremity Qualified Code(s): L03.119 - Cellulitis of unspecified part of limb Category: Medical Code(s): L03.90 - Cellulitis, unspecified (5) Hypercalcemia: Status: Acute Category: Medical Code(s): E83.52 - Hypercalcemia (6) Chronic wound: Status: Acute Category: Medical Code(s): T14.8XXA - Other injury of unspecified body region, initial encounter (7) Bilateral edema of lower extremity: Status: Acute Category: Medical Code(s): R60.0 - Localized edema (8) Atrial fibrillation with RVR: Status: Acute Category: Medical Code(s): I48.91 - Unspecified atrial fibrillation (9) Morbid obesity: Status: Acute Category: Medical Code(s): E66.01 - Morbid (severe) obesity due to excess calories (10) Diabetic neuropathy: Status: Acute Qualifiers: Diabetes mellitus complication detail: diabetic polyneuropathy Diabetes mellitus type: type 2 Qualified Code(s): E11.42 - Type 2 diabetes mellitus with diabetic polyneuropathy Category: Medical Code(s): E11.40 - Type 2 diabetes mellitus with diabetic neuropathy, unspecified (11) Morbid obesity with BMI of 50.0-59.9, adult: Status: Acute Category: Medical Code(s): E66.01 - Morbid (severe) obesity due to excess calories; Z68.43 - Body mass index [BMI] 50.0-59.9, adult (12) Volume overload: Status: Acute Qualifiers: Hypervolemia type: unspecified Qualified Code(s): E87.70 - Fluid overload, unspecified Category: Medical Code(s): E87.70 - Fluid overload, unspecified (13) Microcytic anemia: Status: Acute Category: Medical Code(s): D50.9 - Iron deficiency anemia, unspecified (14) Adult failure to thrive: Status: Acute Category: Medical Code(s): R62.7 - Adult failure to thrive (15) LORI (obstructive sleep apnea): Status: Acute Category: Medical Code(s): G47.33 - Obstructive sleep apnea (adult) (pediatric) (16) Diabetes mellitus: Status: Acute Qualifiers: Diabetes mellitus complication status: with hyperglycemia 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: without mcc use Diabetes mellitus type: type 2 Qualified Code(s): E11.65 - Type 2 diabetes mellitus with hyperglycemia Category: Medical Code(s): E11.9 - Type 2 diabetes mellitus without complications (17) Sacral wound: Status: Acute Qualifiers: Encounter type: initial encounter Qualified Code(s): S31.000A - Unspecified open wound of lower back and pelvis without penetration into retroperitoneum, initial encounter Category: Medical Code(s): S31.000A - Unspecified open wound of lower back and pelvis without penetration into retroperitoneum, initial encounter Plan Bebeto Christiansen is a 64-year-old male with morbid obesity, acute on chronic HFpEF, volume overload, lower extremity erythema, stasis ulcerations. Presented with worsening cellulitis and drainage of his legs. Discussed case with ER physician, request admission for antibiotics and further management. Medicine agreed to admit for further care. Continuing antibiotics for cellulitis. Holding diuresis today due to slowly improving LUPE. Cardiology and wound care assisting with care. Problems addressed as follows: #Acute on Chronic HFpEF #Anasarca #Atrial fibrillation #Hypertension #ATN ? Patient well-known to our facility, noncompliant to heart failure regimen. States he is always thirsty, drinks water/tea profusely at home. Returns volume overloaded. ? Holding diuretics. BUN 66, creatinine 2.2. Potassium 3.5, magnesium 2.0. Repeat BMP ordered for the afternoon, repeat CBC, CMP, magnesium ordered for the morning. Creatinine had been doing well at approximately 1.3-1.4 for the past few days. - Holding Bumex, will hold metolazone, reevaluate tomorrow - For always feeling thirsty and drinking fluids profusely, extensively discussed importance of fluid restriction for his heart failure. Patient does acknowledge this, but does state that he is always thirsty. Recommended chewing gum, unsweetened mints. Patient states he will try unsweetened gum and jellybeans. Also discontinued paroxetine, duloxetine as this may be contributing to dry mouth. ? In addition, I do not believe that fluid restricting truly creates realistic environment for this patient especially due to dry mouth. He will invariably go home and drink as he feels appropriate due to dry mouth. As such, will find a diuretic regimen that is appropriate for him. ? DVT Dopplers ordered for lower extremities, patient refused. CTA lower extremity with runoff ordered due to nonhealing wounds, patient refused. ? After extensive conversations of severity of disease process and recurrent admissions, I was south with patient that this trend does not have a good prognosis and will continue to significantly shorten his life span. After consideration, patient states he is agreeable to short-term rehab. Case management assisting with placement. #Lower extremity swelling, lymphedema # Bilateral lower extremity cellulitis #Multidrug-resistant cellulitis #Lower extremity pain ? Due to significant volume anasarca, lymphedema this has caused stasis and allowed opportunistic ESBL bacteria to grow including Klebsiella, Pseudomonas. - White count improved to 12 today. Patient afebrile. ? Continues to have lower extremity pain. Caution with leg wraps. Tolerating current pain regimen with fair control - Tizanidine, pregabalin, [place] for lower extremity pain. ? Continue meropenem day 7/10. Will continue twice daily dosing. Complete course tomorrow -Continue doxycycline 100 mg twice daily for 10 days Diabetes: - A1c worsening at 10.5. States he has been compliant. - Morning glucose 189. Continue sliding scale insulin with additional 15 units with meals. Fingersticks ACHS. lantus 40 units twice daily. -Diabetic diet of 1500 jone -Holding Jardiance due to risk for Mrailin's gangrene given groin wounds and retracted penis Microcytic anemia ? Hemoglobin dropped to 8.8. Status post 2 doses of Venofer during admission. LORI: Consider oxygen at night versus CPAP after discussion with patient about his home regimen. On room air at this time; goal sats greater 90% Morbid obesity complicates all aspects of his care. Wound care consulted to assist with legs and stasis ulcers, refer to outpt wound care after DC Full code eliquis 5mg BID Diabetic diet
[2024-09-21 17:39] LABS: Anion Gap 12.7 mEq/L (5-15); Blood Urea Nitrogen 67 mg/dl (9-20); Calcium 10.5 mg/dl (8.4-10.2); Carbon Dioxide 31 mmol/L (22.0-30.0); Chloride 85 mmol/L (98-107); Creatinine Clearance Estimated 43 mL/min (50-200); Estimated Glomerular Filt Rate 32 ml/min (>60); GFR (African American) 39 ML/MIN (>60); Glucose 223 mg/dl (74-100); Potassium 3.7 mmoL/L (3.5-5.1); Sodium 125 mmol/L (136-145)
[2024-09-21] MEDS: INSULIN GLARGINE 100 UNITS/ML 3ML FLEXPEN 40 UNIT SUBCUT (21:30)
[2024-09-21] MEDS: FAMOTIDINE 20MG TABLET 20 MG PO (21:30)
[2024-09-22 01:52] LABS: POC Glucose,Bedside 248 (70-110)
[2024-09-22] MEDS: HYDROCODONE 10MG/APAP 325MG TAB 1 TAB PO ×2 (01:55→08:36)
[2024-09-22] MEDS: MEROPENEM 1 GM in 0.9 % SODIUM CHLORIDE 100 ML IV ×2 (01:55→08:31)
[2024-09-22] MEDS: TRAMADOL 50MG TABLET 100 MG PO (02:02)
[2024-09-22 04:00] VITALS: BP 96/62; PULSE 91; RESP 16; TEMP 36.4; O2SAT 95
[2024-09-22] MEDS: humaLOG 100 UNITS/ML 10ML VIAL (SSI) 15 UNIT SUBCUT (06:26)
[2024-09-22] MEDS: humaLOG 100 UNITS/ML 10ML VIAL (SSI) SUBCUT (06:26)
[2024-09-22 06:35] LABS: POC Glucose,Bedside 192 (70-110)
--- NOTE | 2024-09-22 06:47 | PC.NURSE ---
Pt complained of pain in BLE 2x during shift requiring PRN medication. Pt AOx4. Pt has refused to transfer to bed and has remained in chair despite encouragment and education from staff. Pt states he feels much better this AM. Call light within reach.
[2024-09-22 06:52] LABS: Basophils # 0.1 K/mm3 (0-0.2); Basophils % 0.4 % (0.1-2.0); Eosinophils # 0.3 Kmm3 (0.0-0.4); Eosinophils % 2.2 % (0.1-12.0); Hematocrit 29.8 % (42.0-52.0); Hemoglobin 8.9 g/dL (14.1-18.0); Immature Granulocytes # 0.08 10^3uL; Immature Granulocytes % 0.7 %; Lymphocytes # 2.1 K/mm3 (0.7-4.5); Lymphocytes % 18.5 % (10-50); Mean Corpuscular HGB Conc 29.9 g/dL (31.8-35.4); Mean Corpuscular Hemoglobin 21.3 pg (27.0-31.2); Mean Corpuscular Volume 71.5 fl (80-94); Mean Platelet Volume 9.7 fl (7.4-10.4); Monocytes # 1.1 K/mm3 (0.1-1.0); Monocytes % 9.7 % (1.7-9.3); Neutrophils # 7.9 K/mm3 (1.8-7.8); Neutrophils % 68.5 % (37.0-80.0); Nucleated Red Blood Cells # 0 10^3/uL; Nucleated Red Blood Cells % 0 %; Platelet Count 359 K/mm3 (142-424); Red Blood Count 4.17 M/mm3 (4.60-6.20); Red Cell Distribution Width 17.7 % (11.5-17.5); Red Cell Distribution Width-SD 45.7 fL; White Blood Count 11.6 K/mm3 (4.8-10.8)
[2024-09-22 06:59] LABS: Albumin Level 3.4 g/dl (3.5-5.0); Chloride 88 mmol/L (98-107); Potassium 3.7 mmoL/L (3.5-5.1); Sodium 128 mmol/L (136-145)
[2024-09-22 07:01] LABS: Alanine Aminotransferase 22 U/L (12-78); Aspartate Amino Transferase 24 U/L (17-59); Blood Urea Nitrogen 70 mg/dl (9-20); Creatinine Clearance Estimated 50 mL/min (50-200); Estimated Glomerular Filt Rate 38 ml/min (>60); GFR (African American) 46 ML/MIN (>60)
[2024-09-22 07:02] LABS: Albumin/Globulin Ratio 1.1 (1.1-1.8); Alkaline Phosphatase 166 U/L (38-126); Anion Gap 9.7 mEq/L (5-15); Bilirubin,Total 0.4 mg/dl (0.2-1.3); Calcium 10.1 mg/dl (8.4-10.2); Carbon Dioxide 34 mmol/L (22.0-30.0); Globulin 3.2 g/dL (1.3-3.2); Glucose 185 mg/dl (74-100); Magnesium 2.2 mg/dl (1.6-2.3); Total Protein,Serum 6.6 g/dl (6.3-8.2)
[2024-09-22 07:51] VITALS: BP 125/66; PULSE 89; RESP 17; TEMP 36.4; O2SAT 94
[2024-09-22] MEDS: ASPIRIN EC 81MG TABLET 81 MG PO (08:29)
[2024-09-22] MEDS: DOXYCYCLINE HYCL 100 MG TABLET PO (08:29)
[2024-09-22] MEDS: PANTOPRAZOLE 40MG TABLET 40 MG PO (08:29)
[2024-09-22] MEDS: PREGABALIN 50MG CAPSULE 100 MG PO ×2 (08:30→12:09)
[2024-09-22] MEDS: METOPROLOL SUCCINATE XL 25MG TABLET 12.5 MG PO (08:30)
[2024-09-22] MEDS: APIXABAN 5MG TABLET 5 MG PO (08:30)
[2024-09-22] MEDS: ONDANSETRON 4MG/2ML VIAL 4 MG IV (08:36)
[2024-09-22 09:22] LABS: POC Glucose,Bedside 184 (70-110)
[2024-09-22] MEDS: NYSTATIN TOPICAL POWDER 30GM TP ×2 (11:46→12:09)
--- NOTE | 2024-09-22 11:47 | P.DS_ITS ---
General Admission date:: 09/11/24 Discharge date: 09/22/24 HPI HPI HPI: Mr. Christiansen is an extremely obese male with approximately 400 pound, he has had diabetes for quite some time and has been going to a wound center for significant peripheral vascular disease diabetic lower extremities and feet., There has been some upper respiratory illnesses in the family and he has ended up missing the last 2 wound appointments. Redness and drainage of the lower extremities bilaterally has increased., During workup in the ER secondary to the cellulitis found that there was new onset of hypercalcemia that was never n oted in his past record. Also noting that there is a foreign body possibly metal located in the posterior right heel. With the patient sitting in a wheelchair noting that both legs are weeping some bloody discharge that the toes are blue. ER provider noted though that there was positive pulses to both lower extremities The patient he has not had any fever he has had no nausea or vomiting bowel and bladder habits have remained the same. Per the patient's and also family history he has had blue toes for quite some time. Also chronic atrial fibs Podiatry consult: Patient is a 64-year-old obese diabetic male with a history of bilateral lymphedema, PAD, diabetic foot ulcers, right fourth toe amputation, left fifth toe amputation at [facility] March 2024. Podiatry consulted to evaluate for bilateral lower extremity cellulitis and DFU. Patient is well- known to the [facility] wound care team as he has been seeing them outpatient. Patient is new to podiatry team. Podiatry PRESS PIPE INSPECTOR and myself saw and evaluated the patient this morning. He was abrupt and not pleasant. He seemed annoyed by us asking questions and wanting to evaluate him. He reports Pete knows me, ask him the questions . He reports significant pain to the lower legs, left worse than right. There are some drainage noted to the wounds, strikethrough on the bandage. He denies F/C, N/V. Wants to eat. Hospital Course Hospital Course Hospital Course: Bebeto Christiansen is a 64-year-old male with morbid obesity, acute on chronic HFpEF, volume overload, lower extremity erythema, stasis ulcerations. Presented with worsening cellulitis and drainage of his legs. Discussed case with ER physician, request admission for antibiotics and further management. Medicine agreed to admit for further care. Treated for overload. Developed brief episode of LUPE and suspected ATN. This resolved while cellulitis was being treated in his legs. During stay, patient decided he was open to placement for rehab and nursing care. Prior to discharge, he changed his mind and stated he just wanted to go home. He is returning home with his sister stable condition. Has completed antibiotic course. Adjustments made to diuretic regimen for heart failure and volume overload. Multiple candid conversations about patient's volume status. Strong concern about his kidney function with the waxing and waning function during admission. If kidney function worsens, would definitely recommend referral to nephrology for further evaluation and management. Needs close outpatient follow-up with subspecialists. Problems addressed as follows: #Acute on Chronic HFpEF #Anasarca #Atrial fibrillation #Hypertension #ATN ? Patient well-known to our facility, noncompliant to heart failure regimen. States he is always thirsty, drinks water/tea profusely at home. Return to the hospital frankly volume overloaded. Initially on aggressive diuretics. Developed LUPE with subsequent ATN. Slow improvement in kidney function by holding diuretics. Able to resume while treating his cellulitis below. Adjustments were made throughout his course. Cardiology consulted to assist with management. Able to diurese significantly during admission. Electrolytes stable. Better controlled potassium with transition to metolazone and discontinuation of spironolactone. See med rec for full details of Bumex and metolazone regimen. Extensive discussions about fluid intake. For always feeling thirsty and drinking fluids profusely, extensively discussed importance of fluid restriction for his heart failure. Patient does acknowledge this, but does state that he is always thirsty. Recommended chewing gum, sugar-free mints. Patient states he will try sugar-free gum and jellybeans. Also discontinued duloxetine as this may be contributing to dry mouth. In addition, I do not believe that fluid restricting truly creates realistic environment for this patient especially due to dry mouth. He will invariably go home and drink as he feels appropriate due to dry mouth. As such, diuretic regimen adjusted based on kidney function, volume status, will need close monitoring and reevaluation. Recommend repeat labs with CBC, CMP, magnesium in the next week I recommend follow-up with PCP and cardiology within the next week. ? DVT Dopplers ordered for lower extremities, patient refused. CTA lower extremity with runoff ordered due to nonhealing wounds, patient refused. #Lower extremity swelling, lymphedema # Bilateral lower extremity cellulitis #Multidrug-resistant cellulitis #Lower extremity pain ? Due to significant volume anasarca, lymphedema this has caused stasis and allowed opportunistic ESBL bacteria to grow including Klebsiella, Pseudomonas. White count fluctuated during admission but was improved on day of discharge of 11. Continue Unna boots. Will have close follow-up with wound care as an outpatient. Patient instructed on exchanging bandages on his own at home. Treated with meropenem based on polymicrobial cultures. Completed prolonged course of antibiotics. At least 8 days of meropenem. Over 12 days total of antibiotics. No indication for antibiotics at discharge after completion of extensive course with meropenem and doxycycline - Continue tizanidine and [place] for pain Diabetes: - A1c worsening at 10.5. States he has been compliant. Morning glucose 185 on day of discharge. On sliding scale insulin fingerstick ACHS. Initiate Mounjaro at discharge. Continue mealtime insulin and 60 units of insulin glargine twice daily for improved control. Will need repeat A1c in 10 weeks. -Holding Jardiance due to risk for Marilin's gangrene given groin wounds and retracted penis Microcytic anemia: Hemoglobin stable at 8.9 on day of discharge. Completed 2 IV doses of 200 mg Venofer during admission. LORI: Consider oxygen at night versus CPAP after discussion with patient about his home regimen. On room air at this time; goal sats greater 90% Morbid obesity complicates all aspects of his care. Wound care consulted to assist with legs and stasis ulcers, refer to outpt wound care after DC Total time spent on discharge 42 minutes in counseling, documentation, chart review, and direct care with patient. Exam Data for Last 24 hours Vital signs and Labs for Last 24 Hours: Temp Pulse Resp BP Pulse Ox O2 Del Method O2 Flow Rate 97.6 F 89 17 125/66 94 L Room Air 2 09/22/24 07:51 09/22/24 07:51 09/22/24 07:51 09/22/24 07:51 09/22/24 07:51 09/22/24 09:00 09/13/24 02:00 Laboratory Results - last 24 hr 09/21/24 13:37: POC Glucose 190 H 09/21/24 16:11: POC Glucose 212 H 09/21/24 17:05: Sodium 125 L, Potassium 3.7, Chloride 85 L, Carbon Dioxide 31 H, Anion Gap 12.7, BUN 67 H, Creatinine 2.10 H, Estimated Creat Clear 43, Estimated GFR 32 L, Est GFR ( Amer) 39 L, Glucose 223 H, Calcium 10.5 H 09/21/24 21:27: POC Glucose 248 H 09/22/24 06:25: POC Glucose 192 H 09/22/24 06:27: WBC 11.6 H, RBC 4.17 L, Hgb 8.9 L, Hct 29.8 L, MCV 71.5 L, MCH 21.3 L, MCHC 29.9 L, RDW 17.7 H, Plt Count 359, MPV 9.7, Neut % (Auto) 68.5, Lymph % (Auto) 18.5, [place] % (Auto) 9.7 H, Eos % (Auto) 2.2, Baso % (Auto) 0.4, Neut # (Auto) 7.9 H, Lymph # (Auto) 2.1, [place] # (Auto) 1.1 H, Eos # (Auto) 0.3, Baso # (Auto) 0.1, Sodium 128 L, Potassium 3.7, Chloride 88 L, Carbon Dioxide 34 H, Anion Gap 9.7, BUN 70 H, Creatinine 1.80 H, Estimated Creat Clear 50, Estimated GFR 38 L, Est GFR ( Amer) 46 L, Glucose 185 H, Calcium 10.1, Magnesium 2.2, Total Bilirubin 0.4, AST 24, ALT 22, Alkaline Phosphatase 166 H, Total Protein 6.6, Albumin 3.4 L, Globulin 3.2, Albumin/Globulin Ratio 1.1 09/22/24 08:28: POC Glucose 184 H I & O for Last 24 hours: Intake & Output 09/19/24 09/20/24 09/21/24 09/22/24 23:59 23:59 23:59 23:59 Intake Total 560 / 710 1110 / 1210 1720 / 1720 240 / 240 Output Total 1200 / 1400 2701 / 2701 1200 / 1200 950 / 950 Balance -640 / -690 -1591 / -1491 520 / 520 -710 / -710 Weight 182.888 kg 180.394 kg Constitutional Constitutional: mild distress, morbidly obese, chronically ill appearing and cooperative *Routine HEENT Exam Head: Present normocephalic and atraumatic Eye: Present EOMI and PERRL ENT: Present mucous membranes moist Comments: dime sized abrasion on upper lip *Routine Neck Exam Neck: Present supple *Routine Respiratory Exam Respiratory: Present rhonchi, distant breath sounds, normal respiratory effort and symmetric chest movement; Absent wheezes or crackles *Routine Cardiovascular Exam Cardiovascular: Present Normal S1, Normal S2 and irregularly irregular *Routine Abdominal Exam Abdominal: Present soft, normoactive bowel sounds and obese; Absent tenderness *Routine Rectal Exam Patient deferred: visual exam *Routine Exam Comments: Severely retracted penis *Routine Extremities Exam Extremities: Present edema, full ROM and normal capillary refill *Routine Skin Exam Skin: Present dry and warm Comments: Severe wounds on bilateral shins, left worse than right. Bandages in place that are dry. Poor blood flow to feet, blue discoloration of toes which is chronic and stable *Routine Neurological Exam Neurological: Present alert, oriented X3 and moving all extremities; Absent altered mental status Detailed Neck Exam: Thyroids Thyroid: Absent bruit Results Data Completed and Pending Labs on day of discharge: Labs from last 24 hours 09/22/24 09/22/24 09/22/24 08:28 06:27 06:25 WBC 11.6 H RBC 4.17 L Hgb 8.9 L Hct 29.8 L MCV 71.5 L MCH 21.3 L MCHC 29.9 L RDW 17.7 H Plt Count 359 MPV 9.7 Neut % (Auto) 68.5 Lymph % (Auto) 18.5 [place] % (Auto) 9.7 H Eos % (Auto) 2.2 Baso % (Auto) 0.4 Neut # (Auto) 7.9 H Lymph # (Auto) 2.1 [place] # (Auto) 1.1 H Eos # (Auto) 0.3 Baso # (Auto) 0.1 Sodium 128 L Potassium 3.7 Chloride 88 L Carbon Dioxide 34 H Anion Gap 9.7 BUN 70 H Creatinine 1.80 H Estimated Creat Clear 50 Estimated GFR 38 L Est GFR ( Amer) 46 L Glucose 185 H POC Glucose 184 H 192 H Calcium 10.1 Magnesium 2.2 Total Bilirubin 0.4 AST 24 ALT 22 Alkaline Phosphatase 166 H Total Protein 6.6 Albumin 3.4 L Globulin 3.2 Albumin/Globulin Ratio 1.1 09/21/24 09/21/24 09/21/24 21:27 17:05 16:11 WBC RBC Hgb Hct MCV MCH MCHC RDW Plt Count MPV Neut % (Auto) Lymph % (Auto) [place] % (Auto) Eos % (Auto) Baso % (Auto) Neut # (Auto) Lymph # (Auto) [place] # (Auto) Eos # (Auto) Baso # (Auto) Sodium 125 L Potassium 3.7 Chloride 85 L Carbon Dioxide 31 H Anion Gap 12.7 BUN 67 H Creatinine 2.10 H Estimated Creat Clear 43 Estimated GFR 32 L Est GFR ( Amer) 39 L Glucose 223 H POC Glucose 248 H 212 H Calcium 10.5 H Magnesium Total Bilirubin AST ALT Alkaline Phosphatase Total Protein Albumin Globulin Albumin/Globulin Ratio 09/21/24 13:37 WBC RBC Hgb Hct MCV MCH MCHC RDW Plt Count MPV Neut % (Auto) Lymph % (Auto) [place] % (Auto) Eos % (Auto) Baso % (Auto) Neut # (Auto) Lymph # (Auto) [place] # (Auto) Eos # (Auto) Baso # (Auto) Sodium Potassium Chloride Carbon Dioxide Anion Gap BUN Creatinine Estimated Creat Clear Estimated GFR Est GFR ( Amer) Glucose POC Glucose 190 H Calcium Magnesium Total Bilirubin AST ALT Alkaline Phosphatase Total Protein Albumin Globulin Albumin/Globulin Ratio Preliminary micro results at discharge 09/12/24 07:47 Wound Culture - Preliminary Foot,Right - Wound Acinetobacter baumannii DS: Diagnosis Discharge Diagnosis (1) Acute on chronic heart failure with preserved ejection fraction (HFpEF): Status: Acute Code(s): I50.33 - Acute on chronic diastolic (congestive) heart failure (2) Venous stasis ulcer of both lower extremities without varicose veins: Status: Acute Code(s): I87.2 - Venous insufficiency (chronic) (peripheral); L97.919 - Non-pressure chronic ulcer of unspecified part of right lower leg with unspecified severity; L97.929 - Non-pressure chronic ulcer of unspecified part of left lower leg with unspecified severity (3) Peripheral vascular disease: Status: Acute Code(s): I73.9 - Peripheral vascular disease, unspecified (4) Cellulitis: Status: Acute Code(s): L03.90 - Cellulitis, unspecified Qualifiers: Laterality: unspecified laterality Site of cellulitis: extremity Site of cellulitis of extremity: lower extremity Qualified Code(s): L03.119 - Cellulitis of unspecified part of limb (5) Hypercalcemia: Status: Acute Code(s): E83.52 - Hypercalcemia (6) Chronic wound: Status: Acute Code(s): T14.8XXA - Other injury of unspecified body region, initial encounter (7) Bilateral edema of lower extremity: Status: Acute Code(s): R60.0 - Localized edema (8) Atrial fibrillation with RVR: Status: Acute Code(s): I48.91 - Unspecified atrial fibrillation (9) Morbid obesity: Status: Acute Code(s): E66.01 - Morbid (severe) obesity due to excess calories (10) Diabetic neuropathy: Status: Acute Code(s): E11.40 - Type 2 diabetes mellitus with diabetic neuropathy, unspecified Qualifiers: Diabetes mellitus complication detail: diabetic polyneuropathy Diabetes mellitus type: type 2 Qualified Code(s): E11.42 - Type 2 diabetes mellitus with diabetic polyneuropathy (11) Morbid obesity with BMI of 50.0-59.9, adult: Status: Acute Code(s): E66.01 - Morbid (severe) obesity due to excess calories; Z68.43 - Body mass index [BMI] 50.0-59.9, adult (12) Volume overload: Status: Acute Code(s): E87.70 - Fluid overload, unspecified Qualifiers: Hypervolemia type: unspecified Qualified Code(s): E87.70 - Fluid overload, unspecified (13) Microcytic anemia: Status: Acute Code(s): D50.9 - Iron deficiency anemia, unspecified (14) Adult failure to thrive: Status: Acute Code(s): R62.7 - Adult failure to thrive (15) LORI (obstructive sleep apnea): Status: Acute Code(s): G47.33 - Obstructive sleep apnea (adult) (pediatric) (16) Diabetes mellitus: Status: Acute Code(s): E11.9 - Type 2 diabetes mellitus without complications Qualifiers: Diabetes mellitus complication status: with hyperglycemia Diabetes mellitus senior living insulin use: without senior living use Diabetes mellitus type: type 2 Qualified Code(s): E11.65 - Type 2 diabetes mellitus with hyperglycemia (17) Sacral wound: Status: Acute Code(s): S31.000A - Unspecified open wound of lower back and pelvis without penetration into retroperitoneum, initial encounter Qualifiers: Encounter type: initial encounter Qualified Code(s): S31.000A - Unspecified open wound of lower back and pelvis without penetration into retroperitoneum, initial encounter Meds Home Medications and Allergies Home Medications ?Medication ?Instructions ?Recorded ?Confirmed ?Type pantoprazole 40 mg tablet,delayed 40 mg PO HS 30 days #30 tabs 06/21/24 09/11/24 Rx release ondansetron 4 mg disintegrating 4 mg PO Q8HP PRN nause a and 07/28/24 09/11/24 History tablet vomiting paroxetine HCl 20 mg tablet 20 mg PO DAILY 07/30/24 History insulin lispro 100 unit/mL See Protocol SQ ACHS 30 day s #1.2 08/01/24 09/11/24 Rx subcutaneous solution (Humalog mL U-100 Insulin) tizanidine 4 mg tablet 4 mg PO TID PRN Muscle cramp s 30 08/01/24 09/11/24 Rx days #30 tabs tramadol 50 mg tablet 50 mg PO Q8H PRN pain #15 ta bs 08/12/24 09/11/24 Rx insulin glargine 100 unit/mL (3 60 unit SQ BID 5 09/11/24 History mL) subcutaneous pen (Lantus Solostar U-100 Insulin) tirzepatide 2.5 mg/0.5 mL 2.5 mg (0.5 mL) SQ WEEKLY 30 days 09/15/24 Rx subcutaneous pen injector #2.5 mL (Mounjaro) apixaban 5 mg tablet (Eliquis) 5 mg PO BID 30 days #60 tabs 09/22/24 Rx bumetanide 2 mg tablet 3 mg (1.5 x 2 mg) PO TID 30 days 09/22/24 Rx #90 tabs hydrocodone 5 mg-acetaminophen 325 1 tab PO Q6HP PRN M oderate Pain 09/22/24 Rx mg tablet (4-6) 3 days #11 tabs metolazone 2.5 mg tablet 5 mg (2 x 2.5 mg) PO DAILY 3 0 days 06/12/25 Rx #60 tabs metoprolol succinate 25 mg 25 mg PO DAILY 30 days #30 tabs 09/22/24 Rx tablet,extended release 24 hr nystatin 100,000 unit/gram topical 1 applic topical QI D #60 grams 09/22/24 Rx powder pregabalin 100 mg capsule 100 mg PO TID 30 days #90 ca ps 09/22/24 Rx empagliflozin 10 mg tablet 10 mg PO DAILY #30 tabs Rx (Jardiance) New Prescriptions to Start Prescriptions: apixaban [Eliquis] Jazmin,Cullen bumetanide Jazmin,Cullen hydrocodone-acetaminophen Jazmin,Cullen metolazone Jazmin,Cullen metoprolol succinate Jazmin,Cullen nystatin Jazmin,Cullen pregabalin Jazmin,Cullen tirzepatide [Mounjaro] Jorge A Martin Allergies Allergy/AdvReac Type Severity Reaction Status Date / Time hydromorphone (From Dilaudid) AdvReac Vomiting Verified 09/02/24 10:49 morphine AdvReac Vomiting Verified 09/02/24 10:49 Discharge Plan Disposition Patient Disposition: Home, Self-Care Condition: Fair Discharge Order Discharge Orders: Discharge Order (Routine); Ordered 09/22/24 Ordered By: Cullen Wu Follow up Plan Follow up with: Saulo Martinez DO [Primary Care Provider, Family Practice] - 09/29/24 3:15 pm Pete Coyle PT [Physical Therapist, Rehab Therapy] - 09/29/24 11:00 am Gordon Crocker MD [Staff Physician, Cardiology] - 10/19/24 1:45 pm Prescriptions/Medication Reconciliation: New Mounjaro 2.5 mg/0.5 mL pen injector 2.5 mg SQ WEEKLY 30 Days Qty: 2.5 0RF Rx Instructions: for 4 weeks metolazone 2.5 mg Tablet 5 mg PO DAILY 30 Days Qty: 60 0RF hydrocodone-acetaminophen 5-325 mg Tablet 1 tab PO Q6HP PRN (Reason: Moderate Pain (4-6)) 3 Days Qty: 11 0RF nystatin 100,000 unit/gram Powder 1 applic topical QID Qty: 60 0RF metoprolol succinate 25 mg Tablet Extended Release 24 Hr 25 mg PO DAILY 30 Days Qty: 30 0RF pregabalin 100 mg capsule 100 mg PO TID 30 Days Qty: 90 0RF Eliquis 5 mg Tablet 5 mg PO BID 30 Days Qty: 60 0RF Continued insulin glargine [Lantus Solostar U-100 Insulin] 100 unit/mL (3 mL) insulin pen 60 unit SQ BID Mounjaro 2.5 mg/0.5 mL pen injector 2.5 mg SQ WEEKLY 0RF Rx Instructions: MD OFFICE SAMPLES tramadol 50 mg tablet 50 mg PO Q8H PRN (Reason: pain) Qty: 15 0RF ondansetron 4 mg tablet,disintegrating 4 mg PO Q8HP PRN (Reason: nausea and vomiting) paroxetine HCl 20 mg Tablet 20 mg PO DAILY insulin lispro [Humalog U-100 Insulin] 100 unit/mL Solution See Protocol SQ ACHS 30 Days Qty: 1.2 4RF Protocol: Insulin Corrective Med-Dose Regimen Condition: Fingerstick Blood Glucose Dose/Route: Insulin Units Condition: 151-200 mg/dl Dose/Route: 2 units/SQ Condition: 201-250 mg/dl Dose/Route: 5 units/SQ Condition: 251-300 mg/dl Dose/Route: 8 units/SQ Condition: 301-350 mg/dl Dose/Route: 10 units/SQ Condition: 351-400 mg/dl Dose/Route: 12 units/SQ Condition: 401-450 mg/dl Dose/Route: 15 units/SQ Condition: > 450 mg/dl Dose/Route: CALL MD Protocol Text: Medium Intensity Sliding Scale Insulin tizanidine 4 mg Tablet 4 mg PO TID PRN (Reason: Muscle cramps) 30 Days Qty: 30 0RF pantoprazole 40 mg Tablet,Delayed Release (Dr/Ec) 40 mg PO HS 30 Days Qty: 30 0RF Changed bumetanide 2 mg tablet 3 mg PO TID 30 Days Qty: 90 0RF Discontinued spironolactone 100 mg tablet 100 mg PO DAILY Patient Comments: TAKE ONE TABLET BY MOUTH TWICE DAILY gabapentin 300 mg capsule 900 mg PO TID 30 Days Qty: 270 0RF diltiazem HCl 180 mg Capsule,Extended Release 24hr 360 mg PO DAILY 30 Days Qty: 60 0RF aspirin 81 mg Tablet,Delayed Release (Dr/Ec) 81 mg PO DAILY 30 Days Qty: 30 0RF metoprolol succinate 50 mg tablet extended release 24 hr 150 mg PO DAILY Patient Comments: TAKE 3 TABLETS BY MOUTH DAILY No Action Jardiance 10 mg tablet 10 mg PO DAILY Qty: 30 2RF Other Ambulatory Orders: Rehab Eval, OP (Routine) Timeframe: 3 Days Facility: [facility] - Location: Physical Therapy Ordered By: Cullen Wu Problem Reconciliation Problems Reviewed?: Yes Patient Discharge Instructions ACTIVITY: Continue current activity and Ambulate as tolerated DIET: continue same diet, diabetic diet and low fat, low cholesterol Patient Instructions: Heart Failure, Cellulitis, DI for Atrial Fibrillation, DI for Peripheral Vascular (Arterial) Disease, DI for Diabetic Foot Ulcer, DI for Diabetes Type 1 -- Adult, DI for Diabetic Neuropathy, Stop Light Heart Failure, Stop Light Infection Print Language: Kazakh Providers Primary Care Provider: Saulo Martinez Admit Provider: Cullen Wu Attending Provider: Cullen Wu
[2024-09-22 11:57] LABS: POC Glucose,Bedside 150 (70-110)
[2024-09-22] MEDS: TIZANIDINE 4MG TABLET 4 MG PO (12:09)
--- NOTE | 2024-09-23 10:21 | SW/DCPLANNER ---
Spoke with patient on the phone. Patient stated that he is doing good. Patient stated that he is aware of his upcoming appointments. Patient stated that they brought his medicine to his room. Patient stated that he has no concern or questions at this time. Prashanth Hardy
== END 2024-09-22 16:00 | disposition home or self-care (01) | DRG 622 ==
LOC: ER 09-11 01:32 → 2ND 09-11 18:17 → ICU 09-12 22:17 → 2ND 09-14 12:18
PROVIDERS: Nurse Practitioner; Nurse Practitioner Family; Student in an Organized Health Care Education/Training Program; Admitting Provider Internal Medicine Adolescent Medicine; Emergency Provider Emergency Medicine; PCP Internal Medicine; Visit Provider Internal Medicine Adolescent Medicine
DX: E11.628 Type 2 diabetes mellitus with other skin complications (principal); I50.33 Acute on chronic diastolic (congestive) heart failure; I48.20 Chronic atrial fibrillation, unspecified; Z68.42 Body mass index [BMI] 45.0-49.9, adult; Z16.12 Extended spectrum beta lactamase (ESBL) resistance; L03.116 Cellulitis of left lower limb; L03.115 Cellulitis of right lower limb; Z16.24 Resistance to multiple antibiotics; L97.821 Non-pressure chronic ulcer of other part of left lower leg limited to breakdown of skin; L97.811 Non-pressure chronic ulcer of other part of right lower leg limited to breakdown of skin; I11.0 Hypertensive heart disease with heart failure; N17.0 Acute kidney failure with tubular necrosis; I87.2 Venous insufficiency (chronic) (peripheral); E83.52 Hypercalcemia; E66.01 Morbid (severe) obesity due to excess calories; E11.42 Type 2 diabetes mellitus with diabetic polyneuropathy; D50.9 Iron deficiency anemia, unspecified; R62.7 Adult failure to thrive; G47.33 Obstructive sleep apnea (adult) (pediatric); E11.65 Type 2 diabetes mellitus with hyperglycemia; S31.000A Unspecified open wound of lower back and pelvis without penetration into retroperitoneum, initial encounter; E11.51 Type 2 diabetes mellitus with diabetic peripheral angiopathy without gangrene; I87.8 Other specified disorders of veins; E87.5 Hyperkalemia; I89.0 Lymphedema, not elsewhere classified; R00.1 Bradycardia, unspecified; I95.9 Hypotension, unspecified; B96.5 Pseudomonas (aeruginosa) (mallei) (pseudomallei) as the cause of diseases classified elsewhere; E11.621 Type 2 diabetes mellitus with foot ulcer; B96.1 Klebsiella pneumoniae [K. pneumoniae] as the cause of diseases classified elsewhere; B96.4 Proteus (mirabilis) (morganii) as the cause of diseases classified elsewhere; L97.512 Non-pressure chronic ulcer of other part of right foot with fat layer exposed; B95.1 Streptococcus, group B, as the cause of diseases classified elsewhere; M79.5 Residual foreign body in soft tissue; X58.XXXA Exposure to other specified factors, initial encounter; Z18.10 Retained metal fragments, unspecified; Z79.82 Long term (current) use of aspirin; Z86.19 Personal history of other infectious and parasitic diseases; Z91.199 Patient's noncompliance with other medical treatment and regimen due to unspecified reason; Z79.899 Other long term (current) drug therapy; Z79.4 Long term (current) use of insulin; Z88.5 Allergy status to narcotic agent; Z89.422 Acquired absence of other left toe(s); Z89.421 Acquired absence of other right toe(s)
CPT/HCPCS: 36410; 36415; 71045; 73590; 73630; 80048; 80053; 80202; 82962; 83036; 83605; 83735; 83880; 84100; 84484; 85007; 85025; 85610; 85651; 86140; 87040; 87070; 87077; 87186; 87205; 93005; 93308; 97110; 97162; 97530; J1171; J1650; J1756; J1939; J2185; J2405; J2765; J3370; J3475; J7030; J7120

== ENCOUNTER 2024-10-05 08:50 | Inpatient (IN) | payer MEDICARE, SELFPAY ==
[2024-10-05] VITALS (22 sets, daily range): BP systolic 98–145; BP diastolic 61–82; PULSE 70–134; RESP 11–29; TEMP 36.6–37; O2SAT 87–100; BMI 49.1
--- NOTE | 2024-10-05 08:55 | ECG_ITS ---
APPROVED REPORT Exam: Resting ECG HR:147 bpm ECG Measurements Heart Rate 147 AXES QRSd 105 QRS 82 QT 337 T 30 QTc 421 Conclusion A-fib RVR Intermittent PACs Old myocardial ischemia, but no obvious acute ischemic change Electronically signed by : MUNIR WIGGINS, 10/05/2024 13:25:28
--- NOTE | 2024-10-05 09:00 | PC.NURSE ---
@ 0900- pt arrived to bed #4 via EMS. Upon transfer from ems stretcher to er stretcher it was noted that pt has stage 1 & 2 pressure injuring to his bilateral lower gluteal skin folds. Dr Ardon made aware of skin issues.
--- OUTSIDE RECORDS SUMMARY | 2024-10-05 09:01 | XMS_ITS | Clinical Summary ---
Author Organization [facility] Address [address] [facility] [address] [place] [address] Phone Care Team Providers Care Splitter Head Name Role Phone Isiah Cline MD Unavailable [phone] Conditions or Problems Problem Name Problem Code Onset Date Status Entry Date Provider Comment Standard Description Annotate Edema, BLE 376383787 (SNOMED CT) 07/18 Active 07/18 Swetha Raul Edema of lower extremity Cellulitis of RLE 925445698 (SNOMED CT) 07/18 Active 07/18 Swetha Raul Cellulitis of lower limb Cellulitis of LLE 005054564 (SNOMED CT) 07/18 Active 07/18 Swetha Raul Cellulitis of lower limb Infection, local skin/subcutan eous tissue 875122125 (SNOMED CT) 07/18 Active 07/18 Swetha Raul Localized infection of skin AND/OR subcutaneous tissue Citrobacter infection B96.89 (ICD-10-CM ) 07/18 Active 07/18 Swetha Raul Other specified bacterial agents as the cause of diseases classified elsewhere Proteus infection 513813184 (SNOMED CT) 07/18 Active 07/18 Swetha Raul Proteus infection DM II with diabetic PVD 193283985 (SNOMED CT) 07/18 Active 07/18 Swteha Raul Peripheral vascular disease 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) 123018132 (SNOMED CT) 07/18 Active 07/18 Swetha Raul Peripheral vascular disease Paroxysmal atrial fib 988845109 (SNOMED CT) 07/18 Active 07/18 Swetha Raul Paroxysmal atrial flutter Obesity, class 3, BMI 40 or greater 28152746 ([facility] CT) 07/18 Active 07/18 Swetha Carter Coronary arteriosclerosis DM II with diabetic polyneuropath y 720988796 ([facility] CT) 07/18 Active 07/18 Swetha Carter Neuropathy Hypertensive heart and CKD, benign, 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 trazodone 04454421410 QIE qieuser TORSEMIDE 20 MG TABS Take 1 tablet by mouth Daily. torsemide 15979141754 QIE qieuser TIZANIDINE HCL 4 MG TABS Take 1 tablet by mouth Every 6 (Six) Hours As Needed for Muscle Spasms. tizanidine 45167618832 QIE qieuser SPIRONOLACTONE 50 MG TABS Take 1 tablet by mouth 2 (Two) Times a Day. spironolactone 81472078178 QIE qieuser rivaroxaban (XARELTO) 20 MG tablet Take 1 tablet by mouth Daily. XARELTO QIE qieuser PEG 3350 17 GM PACK Take 17 g by mouth Daily As Needed (Use if senna-docusate is ineffective). polyethylene glycol 3350 [id number] QIE qieuser PAROXETINE HCL 40 MG TABS Take 0.5 tablets by mouth Every Morning. paroxetine hcl 75915025900 QIE qieuser PANTOPRAZOLE SODIUM 40 MG TBEC Take 1 tablet by mouth Every Night. pantoprazole 25634079974 QIE qieuser METOPROLOL SUCCINATE ER 50 MG [id number] Take 3 tablets by mouth Daily. metoprolol succinate 77960038911 QIE qieuser METFORMIN HCL 500 MG TABS Take 1 tablet by mouth 2 (Two) Times a Day With Meals. metformin 19926921785 QIE qieuser MELATONIN 5 MG TABS Take 1 tablet by mouth At Night As Needed (insomnia). melatonin 46027328639 QIE qieuser IRBESARTAN 75 MG TABS Take 1 tablet by mouth Daily. TAKE 0.5 TABLET ONCE DAILY. irbesartan 54717679771 QIE qieuser Insulin Pen Needle 30G X 8 MM misc Use 1 Needle 4 (Four) Times a Day for 30 days. Insulin Pen Needle 30G X 8 MM misc QIE qieuser INSULIN LISPRO 100 UNIT/ML SOLN Inject 2-9 Units under the skin into the appropriate area as directed 3 (Three) Times a Day With Meals. insulin lispro 66604861034 QIE qieuser HYDROXYZINE HCL 25 MG TABS Take 1 tablet by mouth 3 (Three) Times a Day As Needed for Anxiety. hydroxyzine hcl 35375177391 QIE qieuser glucose monitor monitoring kit Use 1 each 4 (Four) Times a Day Before Meals & at Bedtime. glucose monitor monitoring kit QIE qieuser glucose blood test strip Use as instructed glucose blood test strip QIE qieuser GLIPIZIDE ER 10 MG [id number] Take 1 tablet by mouth 2 (Two) Times a Day. glipizide 18366039399 QIE qieuser GABAPENTIN 400 MG CAPS Take 1 capsule by mouth Every 8 (Eight) Hours. gabapentin 19816597677 QIE qieuser empagliflozin (JARDIANCE) 10 MG tablet tablet Take 1 tablet by mouth Daily. JARDIANCE QIE qieuser DOXYCYCLINE MONOHYDRATE 100 MG CAPS Take 1 capsule by mouth Every 12 (Twelve) Hours for 8 doses. Indications: Infection of the Skin and/or Soft Tissue doxycycline monohydrate 11024121241 QIE qieuser DICLOFENAC SODIUM 1 % GEL Apply 2 g topically to the appropriate area as directed 4 (Four) Times a Day. diclofenac sodium 57271233179 QIE qieuser CLOPIDOGREL BISULFATE 75 MG TABS Take 1 tablet by mouth Daily. clopidogrel 18058310360 QIE qieuser CEPHALEXIN 500 MG CAPS Take 1 capsule by mouth Every 6 (Six) Hours for 15 doses. Indications: Infection of the Skin and/or Soft Tissue cephalexin 28080279569 QIE qieuser BENZONATATE 200 MG CAPS Take 1 capsule by mouth 3 (Three) Times a Day As Needed for Cough. benzonatate 87911682781 QIE qieuser ATORVASTATIN CALCIUM 10 MG TABS Take 1 tablet by mouth Every Night. atorvastatin 58404001222 QIE qieuser ASPIRIN LOW DOSE 81 MG TBEC Take 1 tablet by mouth Daily. aspirin 37640831136 QIE qieuser Medications Administered No information available. Allergies, Adverse Reactions, Alerts Allergy Name Reaction Description Start Date Severity Statu s Provider SULFAMETHOXAZOLE-TRIMETHOP RIM Nausea And Vomiting Mild Active Wilder Hu ff MORPHINE Nausea And Vomiting Mild Active Wilder Leal HYDROMORPHONE Nausea And Vomiting Mild Activ e Wilder Leal Results Date Name Value Unit Range Flag Description Clinical Lists Update: Prelo ad MEDS REVIEW Done Documenta tion of current medications (procedure) Plan of Care No information available. Procedures No information available. Vital Signs No information available. Immunizations No information available. Advance Directives No information available.
--- NOTE | 2024-10-05 09:02 | XR_ITS ---
FINAL REPORT CLINICAL HISTORY: soa, afib rvr COMPARISON: 09/13/2024 FINDINGS: No acute pulmonary opacity is present. There is no evidence of effusion or pneumothorax. Mediastinum is unremarkable. Heart size is normal. Thoracic spinal fixation rods are identified. IMPRESSION: No acute abnormality. Reviewed, Interpreted and Dictated by Aixa Carrillo MD Transcribed by Selma Gerard Authenticated and [facility]
--- OUTSIDE RECORDS SUMMARY | 2024-10-05 09:02 | XMS_ITS | Encounter Summary ---
Author Organization [facility] [place] [address] Care Team Providers Care Human Projectile Name Role Phone Lincoln Hillman MD Primary Care Provider [phone] Juan Cantu MD Primary Care Provider [phone] Kym Frias RN Unavailable Unavailable Julee Giang GATEKEEPER Unavailable Unavailable Encounter Details Date Type Department Care Team (Late st Contact Info) Description 12/28/2017 Lab Requisition [facility] [address] [place] [address] Cullen Resendez, [address] [place] [id number] Atrial fibrillation (HCC) Social History Tobacco Use Types Packs/Day Years Used Date Smoking Tobacco: Never Assessed Sex and Gender Information Value Date Recorded Sex Assigned at Not on file Legal Sex Male 9:30 AM EDT Gender Identity Other 05/30/2024 11:37 AM EST Sexual Orientation Don't know 05/30/2024 11 :37 AM EST documented as of this encounter Plan of Treatment Not on file documented as of this encounter Procedures Procedure Name Priority Date/Time Associated Diagnosis Comments CBC WITH DIFF Routine 12/28/2017 6:05 AM EDT Atrial fibrillation (HCC) BASIC METABOLIC PANEL Routine 12/28/2017 6:05 AM EDT Atrial fibrillation (HCC) documented in this encounter Results * (ABNORMAL) CBC WITH DIFF (12/28/2017 6:05 AM EDT) WBC 9.3 4.5 - 11.0 x10(3)/mcL 12/28/2017 7:46 AM EDT [facility] RBC 5.17 4.30 - 5.90 x10(6)/mcL 12/28/2017 7:46 AM EDT [facility] Hgb 14.3 13.2 - 17.3 g/dL 12/28/2017 7:46 AM EDT [facility] Hct 44.3 39.0 - 55.0 % 12/28/2017 7:46 AM EDT [facility] MCV 85.7 81.0 - 101.0 fL 12/28/2017 7:46 AM EDT [facility] MCH 27.7 27.0 - 31.0 pg 12/28/2017 7:46 AM EDT [facility] MCHC 32.3(L) 33.0 - 36.0 g/dL 12/28/2017 7:46 AM EDT [facility] Platelet 245 150 - 400 x10(3)/mcL 12/28/2017 7:46 AM EDT [facility] MPV 9.8 7.4 - 10.4 fL 12/28/2017 7:46 AM EDT [facility] Neut Percent 58.2 % 12/28/2017 7:46 AM EDT [facility] Lymph Percent 31.9 % 12/28/2017 7:46 AM EDT [facility] [place] Percent 6.3 % 12/28/2017 7:46 AM EDT [facility] Eos Percent 2.9 % 12/28/2017 7:46 AM EDT [facility] Baso Percent 0.4 % 12/28/2017 7:46 AM EDT [facility] RDW 41.3 35.1 - 43.9 fL 12/28/2017 7:46 AM EDT [facility] NRBC Auto % 0.0 <=1.0 % 12/28/2017 7:46 AM EDT [facility] Imm Gran% 0.3 % 12/28/2017 7:46 AM EDT [facility] IMMGRAN# 0.0 <=0.0 x10(3)/mcL 12/28/2017 7:46 AM EDT [facility] Neut # 5.4 1.8 - 7.7 x10(3)/[facility] 12/28/2017 7:46 AM EDT [facility] Lymph # 3.0 1.0 - 4.8 x10(3)/[facility] 12/28/2017 7:46 AM EDT [facility] [place] # 0.6 0.0 - 0.8 x10(3)/[facility] 12/28/2017 7:46 AM EDT [facility] Eos# 0.3 0.0 - 0.7 x10(3)/[facility] 12/28/2017 7:46 AM EDT [facility] Baso # 0.0 0.0 - 0.2 x10(3)/[facility] 12/28/2017 7:46 AM EDT [facility] Blood VENOUS BLOOD / Unknown 12/28/2017 6:05 AM EDT 12/28/2017 7:05 AM EDT Cullen Resendez DO HEMATOLOGY ORDERABLES Final Resu lt [facility] [address] [place] [phone] * (ABNORMAL) BASIC METABOLIC PANEL (12/28/2017 6:05 AM EDT) Sodium 138 137 - 145 mmol/L 12/28/2017 7:57 AM EDT [facility] Potassium 3.8 3.5 - 5.1 mmol/L 12/28/2017 7:57 AM EDT [facility] Chloride 100 98 - 107 mmol/L 12/28/2017 7:57 AM EDT [facility] Total CO2 29 22 - 30 mmol/L 12/28/2017 7:57 AM EDT [facility] Anion Gap 9 7 - 16 mmol/L 12/28/2017 7:57 AM EDT [facility] Calcium 9.0 8.4 - 10.3 mg/dL 12/28/2017 7:57 AM EDT [facility] BUN 17 9 - 20 mg/dL 12/28/2017 7:57 AM EDT [facility] Creatinine 0.81 0.66 - 1.25 mg/dL 12/28/2017 7:57 AM EDT [facility] GFR Afr Am 115 >=60 mL/min/1.7 3 m2 12/28/2017 7:57 AM EDT [facility] GFR Non Afr Am 99 >=60 mL/min/1.7 3 m2 12/28/2017 7:57 AM EDT [facility] Comment: This estimated GFR was calculated using CKD-EPI equation which is modified based on ethnicity for Non Americans and Americans. Both results are reported since it is not always possible to determine the patient's ethnicity. This equation should only be used for individuals 18 and older. It has not been validated for use with the elderly (>70 years), women, or in some racial or ethnic subgroups, such as Hispanics. The equation will be less accurate in people with differences in nutritional status or muscle mass. Glucose Lvl 144(H) 60 - 99 mg/dL 12/28/2017 7:57 AM EDT [facility] Blood VENOUS BLOOD / Unknown 12/28/2017 6:05 AM EDT 12/28/2017 7:24 AM EDT Cullen Resendez DO CHEMISTRY ORDERABLES Final Resul t [facility] [address] [facility] [place] [id number] documented in this encounter Visit Diagnoses Diagnosis Atrial fibrillation (HCC) Atrial fibrillation documented in this encounter Care Teams Human Projectile Relationship Specialty Start Date End Date Lincoln Hillman MD [address] [facility] [address] [place] [address] PCP - General Family Medicine 03/25/18 08/26/18 Juan Cantu MD [address] [place] [address] [place] [address] PCP - General Internal Medicine 08/27/18 03/27/24 Frias, Kym A, hairspring adjuster Team 07/25/19 08/24/19 Julee Giang LCSW Care Transition Team 01/06/20 0 documented as of this encounter
--- OUTSIDE RECORDS SUMMARY | 2024-10-05 09:02 | XMS_ITS | Data Portability ---
Author Organization [employer] I ca, [employer] Address [address] [place] [address] Assessment Encounter Date Assessment Date Assessment LastModified [...] Abnormal Flag Note LastModifiedBy Organization Detail LastModifiedTime 04/23/1904/23/2024 Basic metab olic 2000 panel - Serum or Plasm a glucose [mass/volume ] in capillary blood by glucometer 282 mg/dL low: 70mg/d Lhigh: 130mg/ dL high Gluco se 282 (H) 70 - 130 mg/dL 04/23 7:[address] [facility] stickKIN [employer]ON [facility] ATORY Not Available Not Available 09/01/2024 [...] - 130 mg/dL 04/23 4:47 PM EST [facility] H Lat[employer]ON LABOR ATORY Not Available Not Available 09/01/2024 [...] - 130 mg/dL 04/23 2:[address] [facility] stickKIN [employer]ON LABOR ATORY Not Available Not Available 09/01/2024 [...] - 130 mg/dL 04/23 7:[address] [employer] [facility] AT[facility] Not Available [...] - 99 mg/dL 04/23 6:[address] [facility] Not Available Not Available 09/01/2024 16:25:14 04/23/19 25 04/23/2024 Basic metab olic 1999 panel - Serum or Plasm a urea nitrogen [mass/volume ] in serum or plasma 26 mg/dL low: 8mg/dL high: 23mg/d L high BUN 26 (H) 8 - 23 mg/dL 04/23 6:[address] [facility] Not Available Not Available 09/01/2024 16:25:14 04/23/19 25 04/23/2024 Basic metab olic 1999 panel - Serum or Plasm a creatinine [mass/volume ] in serum or plasma 1.06 mg/dL low: 0.76mg /dLhig h: 1.27mg /dL Creat inine 1.06 0.76 - 1.27 mg/dL 04/23 6:[address] [facility] Not Available Not Available 09/01/2024 16:25:14 04/23/19 25 04/23/2024 Basic metab olic 1999 panel - Serum or Plasm a sodium [moles/volum e] in serum or plasma 143 mmol/ L low: 136mmo l/Lhig h: 145mmo l/L Sodiu m 143 136 - 145 mmol/ L 04/23 6:[address] [facility] Not Available Not Available 09/01/2024 16:25:14 04/23/19 25 04/23/2024 Basic metab olic 1999 panel - Serum or Plasm a potassium [moles/volum e] in serum or plasma 4 mmol/ L low: 3.5mmo l/Lhig h: 5.2mmo l/L Potas sium 4.0 3.5 - 5.2 mmol/ L 04/23 6:03 AM [facility]IGNON [employer] [facility] AT[facility] Not Available Not Available 09/01/2024 16:25:14 04/23/19 25 04/23/2024 Basic metab olic 1999 panel - Serum or Plasm a chloride [moles/volum e] in serum or plasma 101 mmol/ L low: 98mmol /Lhigh : 107mmo l/L Chlor chava 101 98 - 107 mmol/ L 04/23 6:03 AM [facility] [employer] [facility] AT[facility] Not Available Not Available 09/01/2024 16:25:14 04/23/19 25 04/23/2024 Basic metab olic 1999 panel - Serum or Plasm a carbon dioxide, total [moles/volum e] in serum or plasma 33 mmol/ L low: 22mmol /Lhigh : 29mmol /L high CO2 33.0 (H) 22.0 - 29.0 mmol/ L 04/23 6:03 AM [facility] [employer] [facility] AT[facility] Not Available Not Available 09/01/2024 16:25:14 04/23/19 25 04/23/2024 Basic metab olic 1999 panel - Serum or Plasm a calcium [moles/volum e] in specimen 9.3 mg/dL low: 8.6mg/ dLhigh : 10.5mg /dL Calci um 9.3 8.6 - 10.5 mg/dL 04/23 6:03 AM [facility] stickKMIGNON [employer] [facility] AT[facility] Not Available Not Available 09/01/2024 16:25:14 04/23/19 25 04/23/2024 Basic metab olic 1999 panel - Serum or Plasm a urea nitrogen/cre atinine [mass ratio] in serum or plasma 24.5 low: 7high: 25 BUN/C reati nine Ratio 24.5 7.0 - 25.0 04/23 6:03 AM [employer] ATORY Not Available Not Available 09/01/2024 16:25:14 04/23/19 25 04/23/2024 Basic metab olic 2000 panel - Serum or Plasm a anion gap in serum or plasma by calculated.3 ions 9 mmol/ L low: 5mmol/ Lhigh: 15mmol /L Anion Gap 9.0 5.0 - 15.0 mmol/ L 04/23 6:03 AM [employer] ATORY Not Available Not Available 09/01/2024 16:25:14 04/23/19 25 04/23/2024 Basic metab olic 2000 panel - Serum or Plasm a glomerular filtration rate [volume rate/area] in serum, plasma or blood by creatinine-b ased formula (CKD-epi 2020)/1.73 sq M 79.4 mL/mi n/1.7 3 low: 60mL/m in/1.7 3 eGFR 79.4 >60.0 mL/mi n/1.7 3 04/23 6:03 AM [employer] ATORY Not Available Not Available 09/01/2024 16:25:14 [...] 145 mmol/ L 04/24 8:43 AM EST [employer] Cloud [employer] LABOR ATORY Not Available Not Available 09/01/2024 16:25:14 04/24/19 25 04/24/2024 Basic metab olic 1999 panel - Serum or Plasm a potassium [moles/volum e] in serum or plasma 4.3 mmol/ L low: 3.5mmo l/Lhig h: 5.2mmo l/L Potas sium 4.3 3.5 - 5.2 mmol/ L 04/24 8:43 AM EST [employer] LABOR ATORY Not Available Not Available 09/01/2024 16:25:14 04/24/19 25 04/24/2024 Basic metab olic 1999 panel - Serum or Plasm a chloride [moles/volum e] in serum or plasma 97 mmol/ L low: 98mmol /Lhigh : 107mmo l/L low Chlor chava 97 (L) 98 - 107 mmol/ L 04/24 8:43 AM EST [facility] LABOR ATORY Not Available Not Available 09/01/2024 16:25:14 04/24/19 25 04/24/2024 Basic metab olic 1999 panel - Serum or Plasm a carbon dioxide, total [moles/volum e] in serum or plasma 34 mmol/ L low: 22mmol /Lhigh : 29mmol /L high CO2 34.0 (H) 22.0 - 29.0 mmol/ L 04/24 8:43 AM EST [employer] LABOR ATORY Not Available Not Available 09/01/2024 16:25:14 04/24/19 25 04/24/2024 Basic metab olic 2000 panel - Serum or Plasm a calcium [moles/volum e] in specimen 9.3 mg/dL low: 8.6mg/ dLhigh : 10.5mg /dL Calci um 9.3 8.6 - 10.5 mg/dL 04/24 8:43 AM EST [employer] ATORY Not Available Not Available 09/01/2024 16:25:14 04/24/19 25 04/24/2024 Basic metab olic 2000 panel - Serum or Plasm a urea nitrogen/cre atinine [mass ratio] in serum or plasma 24.6 low: 7high: 25 BUN/C reati nine Ratio 24.6 7.0 - 25.0 04/24 8:43 AM [employer] ATORY Not Available Not Available 09/01/2024 16:25:14 04/24/19 25 04/24/2024 Basic metab olic 2000 panel - Serum or Plasm a anion gap in serum or plasma by calculated.3 ions 8 mmol/ L low: 5mmol/ Lhigh: 15mmol /L Anion Gap 8.0 5.0 - 15.0 mmol/ L 04/24 8:43 AM [employer] ATORY Not Available Not Available 09/01/2024 16:25:14 04/24/19 25 04/24/2024 Basic metab olic 2000 panel - Serum or Plasm a glomerular filtration rate [volume rate/area] in serum, plasma or blood by creatinine-b ased formula (CKD-epi 2020)/1.73 sq M 72.7 mL/mi n/1.7 3 low: 60mL/m in/1.7 3 eGFR 72.7 >60.0 mL/mi n/1.7 3 04/24 8:43 AM [employer] ATORY Not Available Not Available 09/01/2024 16:25:14 [...] - 130 mg/dL 04/25 8:38 PM EST [facility] Not Available Not Available [...] - 130 mg/dL 04/25 4:41 PM EST [facility] H stickKIN [employer]ON LABOR ATORY Not Available Not Available 09/01/2024 [...] - 130 mg/dL 04/25 11:28 AM EST [facility] H stickKIN [employer]ON LABOR ATORY Not Available Not Available 09/01/2024 [...] - 23 mg/dL 04/25 5:[address] [...] 5.2 mmol/ L 04/25 5:[address] [employer] LABOR ATORY Not Available Not Available 09/01/2024 16:25:14 04/25/19 25 04/25/2024 Basic metab olic 1999 panel - Serum or Plasm a chloride [moles/volum e] in serum or plasma 96 mmol/ L low: 98mmol /Lhigh : 107mmo l/L low Chlor hcava 96 (L) 98 - 107 mmol/ L 04/25 5:27 AM EST [employer] H [employer] LABOR ATORY Not Available Not Available 09/01/2024 16:25:14 04/25/19 25 04/25/2024 Basic metab olic 1999 panel - Serum or Plasm a carbon dioxide, total [moles/volum e] in serum or plasma 35 mmol/ L low: 22mmol /Lhigh : 29mmol /L high CO2 35.0 (H) 22.0 - 29.0 mmol/ L 04/25 5:27 AM EST [employer] Cloud [employer]T [employer] ATORY Not Available Not Available 09/01/2024 16:25:14 04/25/19 25 04/25/2024 Basic metab olic 1999 panel - Serum or Plasm a calcium [moles/volum e] in specimen 9 mg/dL low: 8.6mg/ dLhigh : 10.5mg /dL Calci um 9.0 8.6 - 10.5 mg/dL 04/25 5:[address] [facility] LABOR ATORY Not Available Not Available 09/01/2024 16:25:14 04/25/19 25 04/25/2024 Basic metab olic 2000 panel - Serum or Plasm a urea nitrogen/cre atinine [mass ratio] in serum or plasma 26 low: 7high: 25 high BUN/C reati nine Ratio 26.0 (H) 7.0 - 25.0 04/25 5:27 AM EST [employer] ATORY Not Available Not Available 09/01/2024 16:25:14 04/25/19 25 04/25/2024 Basic metab olic 2000 panel - Serum or Plasm a anion gap in serum or plasma by calculated.3 ions 6 mmol/ L low: 5mmol/ Lhigh: 15mmol /L Anion Gap 6.0 5.0 - 15.0 mmol/ L 04/25 5:27 AM EST [employer] H [employer] ATORY Not Available Not Available 09/01/2024 16:25:14 04/25/19 25 04/25/2024 Basic metab olic 2000 panel - Serum or Plasm a glomerular filtration rate [volume rate/area] in serum, plasma or blood by creatinine-b ased formula (CKD-epi 2020)/1.73 sq M 66.4 mL/mi n/1.7 3 low: 60mL/m in/1.7 3 eGFR 66.4 >60.0 mL/mi n/1.7 3 04/25 5:27 AM EST [facility] ATORY Not Available Not Available 09/01/2024 16:25:14 [...] - 130 mg/dL 04/26 7:[address] [facility] Media[employer] H stickKIN [facility] LABOR ATORY Not Available Not Available [...] 6:[address] [facility] stickKIN [facility] Not Available Not Available 09/01/2024 16:25:14 04/26/19 25 04/26/2024 Basic metab olic 2000 panel - Serum or Plasm a urea nitrogen [mass/volume ] in serum or plasma 35 mg/dL low: 8mg/dL high: 23mg/d L high BUN 35 (H) 8 - 23 mg/dL 04/26 6:[address] [facility] H [facility] Not Available Not Available 09/01/2024 16:25:14 04/26/19 25 04/26/2024 Basic metab olic 1999 panel - Serum or Plasm a creatinine [mass/volume ] in serum or plasma 1.13 mg/dL low: 0.76mg /dLhig h: 1.27mg /dL Creat inine 1.13 0.76 - 1.27 mg/dL 04/26 6:[address] [facility]T H [facility] AT[facility] Not Available Not Available 09/01/2024 16:25:14 04/26/19 25 04/26/2024 Basic metab olic 1999 panel - Serum or Plasm a sodium [moles/volum e] in serum or plasma 140 mmol/ L low: 136mmo l/Lhig h: 145mmo l/L Sodiu m 140 136 - 145 mmol/ L 04/26 6:[address] [facility] [employer] H stickKIN [facility] LABOR ATORY Not Available Not Available 09/01/2024 16:25:14 04/26/19 25 04/26/2024 Basic metab olic 1999 panel - Serum or Plasm a potassium [moles/volum e] in serum or plasma 4.3 mmol/ L low: 3.5mmo l/Lhig h: 5.2mmo l/L Potas sium 4.3 3.5 - 5.2 mmol/ L 04/26 6:[address] [facility]T H stickKIN [facility] LABOR ATORY Not Available Not Available 09/01/2024 16:25:14 04/26/19 25 04/26/2024 Basic metab olic 1999 panel - Serum or Plasm a chloride [moles/volum e] in serum or plasma 98 mmol/ L low: 98mmol /Lhigh : 107mmo l/L Chlor chava 98 98 - 107 mmol/ L 04/26 6:[address] [employer] H [facility] AT[facility] Not Available Not Available 09/01/2024 16:25:14 04/26/19 25 04/26/2024 Basic metab olic 1999 panel - Serum or Plasm a carbon dioxide, total [moles/volum e] in serum or plasma 34 mmol/ L low: 22mmol /Lhigh : 29mmol /L high CO2 34.0 (H) 22.0 - 29.0 mmol/ L 04/26 6:48 AM [employer] ATORY Not Available Not Available 09/01/2024 16:25:14 04/26/19 25 04/26/2024 Basic metab olic 1999 panel - Serum or Plasm a calcium [moles/volum e] in specimen 9.4 mg/dL low: 8.6mg/ dLhigh : 10.5mg /dL Calci um 9.4 8.6 - 10.5 mg/dL 04/26 6:48 AM [employer] ATORY Not Available Not Available 09/01/2024 16:25:14 04/26/19 25 04/26/2024 Basic metab olic 1999 panel - Serum or Plasm a urea nitrogen/cre atinine [mass ratio] in serum or plasma 31 low: 7high: 25 high BUN/C reati nine Ratio 31.0 (H) 7.0 - 25.0 04/26 6:48 AM [employer] ATORY Not Available Not Available 09/01/2024 16:25:14 04/26/19 25 04/26/2024 Basic metab olic 1999 panel - Serum or Plasm a anion gap in serum or plasma by calculated.3 ions 8 mmol/ L low: 5mmol/ Lhigh: 15mmol /L Anion Gap 8.0 5.0 - 15.0 mmol/ L 04/26 6:48 AM [employer] ATORY Not Available Not Available 09/01/2024 16:25:14 [...] G1 or G2 fulfi ll the crite bethayn for CKD. eGFR calcu latio n 2020 [...] - 130 mg/dL 04/27 9:39 PM EST [facility] LABOR ATORY Not Available Not Available 09/01/2024 [...] - 130 mg/dL 04/27 4:37 PM EST [facility] LABOR ATORY Not Available Not Available 09/01/2024 [...] - 130 mg/dL 04/27 10:54 AM EST [facility] ATORY Not Available Not Available 09/01/2024 16:25:15 [...] Gluco se 127 70 - 130 mg/dL 04/27 7:[address] [facility] Not Available Not Available 09/01/2024 16:25:15 04/27/19 25 04/27/2024 Basic metab olic 2000 panel - Serum or Plasm a interpretati on and review of laboratory results Normal Not Available Not Available 08/12 16:25:15 04/28/19 25 04/28/2024 Basic metab olic 1999 panel - Serum or Plasm a glucose [mass/volume ] in capillary blood by glucometer 98 mg/dL low: 70mg/d Lhigh: 130mg/ dL Gluco se 98 70 - 130 mg/dL 04/28 7:[address] [facility] LEX[facility] [...] - 130 mg/dL 04/28 5:[address] [facility] H stickKIN [facility] LABOR ATORY Not Available Not Available [...] - 130 mg/dL 04/28 11:[address] [facility] LEXIN [...] - 130 mg/dL 04/29 8:[address] [facility] H stickKIN [facility] LABOR ATORY Not Available Not Available [...] - 130 mg/dL 04/29 11:04 AM EST [email or web address] LABOR ATORY Not Available Not Available 09/01/2024 [...] - 130 mg/dL 04/29 7:59 AM EST [employer] H [email or web address] LABOR ATORY Not Available Not Available 09/01/2024 [...] - 130 mg/dL 04/30 7:48 PM EST [facility] LAB[facility] ATORY Not Available Not Available 09/01/2024 [...] 5.2 mmol/ L 04/30 5:51 PM EST [email or web address] LABOR ATORY Not Available Not Available 09/01/2024 [...] - 130 mg/dL 04/30 4:29 PM EST [employer] H [email or web address] LABOR ATORY Not Available Not Available 09/01/2024 [...] - 130 mg/dL 04/30 11:09 AM EST [facility] LAB[facility] AT[facility] Not Available Not Available 09/01/2024 [...] - 10.80 10*3/ mm3 04/30 9:26 AM [employer] ATORY Not Available Not Available 09/01/2024 16:25:15 04/30/19 25 04/30/2024 CBC W Diffe renti al panel , metho d unspe cifie d - Blood erythrocytes [#/volume] in blood by automated count 5.6 10*6/ mm3 low: 4.1410 *6/mm3 high: 5.810* 6/mm3 RBC 5.60 4.14 - 5.80 10*6/ mm3 04/30 9:26 AM [employer] ATORY Not Available Not Available 09/01/2024 16:25:15 04/30/19 25 04/30/2024 CBC W Diffe renti al panel , metho d unspe cifie d - Blood hemoglobin [mass/volume ] in blood 13.4 g/dL low: 13g/dL high: 17.7g/ dL Hemog lobin 13.4 13.0 - 17.7 g/dL 04/30 9:26 AM [employer] LABOR ATORY Not Available Not Available 09/01/2024 16:25:15 04/30/1904/30/2024 CBC W Diffe renti al panel , metho d unspe cifie d - Blood hematocrit [volume fraction] of blood by automated count 44.1 % low: 37.5%h igh: 51% Hemat ocrit 44.1 37.5 - 51.0 % 04/30 9:26 AM [employer] LABOR ATORY Not Available Not Available 09/01/2024 16:25:15 04/30/19 25 04/30/2024 CBC W Diffe renti al panel , metho d unspe cifie d - Blood MCV [entitic mean volume] in red blood cells by automated count 78.8 fL low: 79fLhi gh: 97fL low MCV 78.8 (L) 79.0 - 97.0 fL 04/30 9:26 AM [employer] LABOR ATORY Not Available Not Available 09/01/2024 16:25:15 04/30/19 25 04/30/2024 CBC W Diffe renti al panel , metho d unspe cifie d - Blood MCH [entitic mass] by automated count 23.9 pg low: 26.6pg high: 33pg low MCH 23.9 (L) 26.6 - 33.0 pg 04/30 9:26 AM [email or web address] Not Available Not Available 09/01/2024 16:25:15 04/30/19 25 04/30/2024 CBC W Diffe renti al panel , metho d unspe cifie d - Blood MCHC [entitic mass/volume] in red blood cells by automated count 30.4 g/dL low: 31.5g/ dLhigh : 35.7g/ dL low MCHC 30.4 (L) 31.5 - 35.7 g/dL 04/30 9:26 AM [facility] Not Available Not Available 09/01/2024 16:25:15 04/30/19 25 04/30/2024 CBC W Diffe renti al panel , metho d unspe cifie d - Blood erythrocyte [distwidth] in red blood cells by automated count 19.9 % low: 12.3%h igh: 15.4% high RDW 19.9 (H) 12.3 - 15.4 % 04/30 9:26 AM [facility] [employer] LABOR ATORY Not Available Not Available 09/01/2024 16:25:15 04/30/19 25 04/30/2024 CBC W Diffe renti al panel , metho d unspe cifie d - Blood RDW-SD 54.4 fL low: 37fLhi gh: 54fL high RDW-S D 54.4 (H) 37.0 - 54.0 fl 04/30 9:26 AM [employer] [facility] [employer] [facility] AT[facility] Not Available Not Available 09/01/2024 16:25:15 04/30/19 25 04/30/2024 CBC W Diffe renti al panel , metho d unspe cifie d - Blood platelet [entitic mean volume] in blood by automated count 9.3 fL low: 6fLhig h: 12fL MPV 9.3 6.0 - 12.0 fL 04/30 9:26 AM [employer] LABOR ATORY Not Available Not Available 09/01/2024 16:25:15 04/30/19 25 04/30/2024 CBC W Diffe josé al panel , metho d unspe cifie d - Blood platelets [#/volume] in blood by automated count 232 10*3/ mm3 low: 76587* 3/mm3h igh: 47960* 3/mm3 Plate lets 232 140 - 450 10*3/ mm3 04/30 9:26 AM [employer] LABOR ATORY Not Available Not Available 09/01/2024 16:25:15 04/30/19 25 04/30/2024 CBC W Jennifere michaelti al panel , metho d unspe cifie d - Blood neutrophils/ leukocytes in blood by automated count 63.4 % low: 42.7%h igh: 76% Neutr ophil % 63.4 42.7 - 76.0 % 04/30 9:26 AM [employer] LABOR ATORY Not Available Not Available 09/01/2024 16:25:15 04/30/19 25 04/30/2024 CBC W Jennifere josé al panel , metho d unspe cifie d - Blood lymphocytes/ leukocytes in blood by automated count 25 % low: 19.6%h igh: 45.3% Lymph ocyte % 25.0 19.6 - 45.3 % 04/30 9:26 AM [employer] LABOR ATORY Not Available Not Available 09/01/2024 16:25:15 04/30/19 25 04/30/2024 CBC W Diffe renti al panel , metho d unspe cifie d - Blood monocytes/le ukocytes in blood by automated count 6.8 % low: 5%high : 12% Monoc yte % 6.8 5.0 - 12.0 % 04/30 9:[address] [employer] [facility] LAB[facility] AT[facility] Not Available Not Available 09/01/2024 16:25:15 04/30/19 25 04/30/2024 CBC W Diffe renti al panel , metho d unspe cifie d - Blood eosinophils/ leukocytes in blood by automated count 4.1 % low: 0.3%hi gh: 6.2% Eosin ophil % 4.1 0.3 - 6.2 % 04/30 9:[address] [employer] H [facility] LAB[facility] AT[facility] Not Available Not Available 09/01/2024 16:25:15 04/30/19 25 04/30/2024 CBC W Diffe renti al panel , metho d unspe cifie d - Blood basophils/le ukocytes in blood by automated count 0.5 % low: 0%high : 1.5% Basop hil % 0.5 0.0 - 1.5 % 04/30 9:[address] [facility] H stickKIN [facility] LABOR ATORY Not Available Not Available 09/01/2024 16:25:15 04/30/19 25 04/30/2024 CBC W Diffe renti al panel , metho d unspe cifie d - Blood immature granulocytes /leukocytes in blood by automated count 0.2 % low: 0%high : 0.5% Immat ure Grans % 0.2 0.0 - 0.5 % 04/30 9:[address] [facility] H stickKIN [facility] LABOR ATORY Not Available Not Available 09/01/2024 16:25:15 04/30/19 25 04/30/2024 CBC W Diffe renti al panel , metho d unspe cifie d - Blood neutrophils/ leukocytes in blood by automated count 6.1 10*3/ mm3 low: 1.710* 3/mm3h igh: 710*3/ mm3 Neutr ophil s, Absol [place] 6.10 1.70 - 7.00 10*3/ mm3 04/30 9:[address] [employer] H [facility] LABOR AT[facility] Not Available Not Available 09/01/2024 16:25:15 04/30/19 25 04/30/2024 CBC W Diffe renti al panel , metho d unspe cifie d - Blood lymphocytes [#/volume] in blood by automated count 2.41 10*3/ mm3 low: 0.710* 3/mm3h igh: 3.110* 3/mm3 Lymph ocyte s, Absol [place] 2.41 0.70 - 3.10 10*3/ mm3 04/30 9:[address] [facility] H [employer]KIN [employer] LABOR ATORY Not Available Not Available 09/01/2024 16:25:15 04/30/19 25 04/30/2024 CBC W Diffe renti al panel , metho d unspe cifie d - Blood monocytes [#/volume] in blood by automated count 0.66 10*3/ mm3 low: 0.110* 3/mm3h igh: 0.910* 3/mm3 Monoc ytes, Absol [place] 0.66 0.10 - 0.90 10*3/ mm3 04/30 9:26 AM EST [employer] LABOR ATORY Not Available Not Available 09/01/2024 16:25:15 04/30/19 25 04/30/2024 CBC W Diffe renti al panel , metho d unspe cifie d - Blood eosinophils [#/volume] in blood by automated count 0.4 10*3/ mm3 low: 010*3/ mm3hig h: 0.410* 3/mm3 Eosin ophil s, Absol [place] 0.40 0.00 - 0.40 10*3/ mm3 04/30 9:26 AM EST [employer] LABOR ATORY Not Available Not Available 09/01/2024 16:25:15 04/30/19 25 04/30/2024 CBC W Diffe renti al panel , metho d unspe cifie d - Blood basophils [#/volume] in blood by automated count 0.05 10*3/ mm3 low: 010*3/ mm3hig h: 0.210* 3/mm3 Basop hils, Absol [place] 0.05 0.00 - 0.20 10*3/ mm3 04/30 9:26 AM EST [facility] ATORY Not Available Not Available 09/01/2024 16:25:15 04/30/19 25 04/30/2024 CBC W Diffe renti al panel , metho d unspe cifie d - Blood immature granulocytes [#/volume] in blood by automated count 0.02 10*3/ mm3 low: 010*3/ mm3hig h: 0.0510 *3/mm3 Immat ure Grans , Absol [place] 0.02 0.00 - 0.05 10*3/ mm3 04/30 9:26 AM EST [facility] ATORY Not Available Not Available 09/01/2024 16:25:15 04/30/19 25 04/30/2024 CBC W Diffe renti al panel , metho d unspe cifie d - Blood nucleated erythrocytes /leukocytes [ratio] in blood by automated count 0 text: 0.0 - 0.2 /100 WBC nRBC 0.0 0.0 - 0.2 /100 WBC 04/30 9:26 AM [employer] ATORY Not Available Not Available 09/01/2024 16:25:15 [...] 1.6 - 2.4 mg/dL 04/30 9:41 AM [employer] ATORY Not Available Not Available 09/01/2024 16:25:15 [...] - 130 mg/dL 04/30 7:[address] [facility] [employer] H stickKIN [facility] LABOR ATORY Not Available Not Available [...] - 130 mg/dL 05/01 8:36 PM EST [employer] [facility] MediaT H stickKIN [employer]ON LABOR ATORY Not Available Not Available 09/01/2024 [...] - 130 mg/dL 05/01 4:[address] [facility] H stickKIN [employer] LABOR ATORY Not Available Not Available 09/01/2024 [...] - 130 mg/dL 05/01 11:34 AM EST [employer] stickKIN [facility] LABOR ATORY Not Available Not Available [...] - 130 mg/dL 05/01 7:22 AM EST [employer] stickKIN [employer] LABOR ATORY Not Available Not Available 09/01/2024 [...] - 130 mg/dL 05/02 9:26 PM EST Spanning Cloud AppsT [employer]osome Diagn[employer]IN [employer]ON LABOR ATORY Not Available Not Available 09/01/2024 [...] - 130 mg/dL 05/02 8:34 PM EST [employer] H [facility] LABOR ATORY Not Available [...] - 130 mg/dL 05/02 4:18 PM EST [employer] [facility] LABOR ATORY Not Available Not Available 09/01/2024 [...] - 130 mg/dL 05/02 12:21 PM EST [facility] AT[facility] Not Available Not Available 09/01/2024 [...] - 130 mg/dL 05/02 7:42 AM EST [employer] LABOR ATORY Not Available Not Available 09/01/2024 [...] 10.80 10*3/ mm3 05/02 6:[address] [facility] Not Available Not Available 09/01/2024 16:25:16 05/02/19 25 05/02/2024 CBC W Diffe renti al panel , metho d unspe cifie d - Blood erythrocytes [#/volume] in blood by automated count 5.65 10*6/ mm3 low: 4.1410 *6/mm3 high: 5.810* 6/mm3 RBC 5.65 4.14 - 5.80 10*6/ mm3 05/02 6:[address] [facility] Not Available Not Available 09/01/2024 16:25:16 05/02/19 25 05/02/2024 CBC W Diffe renti al panel , metho d unspe cifie d - Blood hemoglobin [mass/volume ] in blood 13.4 g/dL low: 13g/dL high: 17.7g/ dL Hemog lobin 13.4 13.0 - 17.7 g/dL 05/02 6:[address] [facility] Not Available Not Available 09/01/2024 16:25:16 05/02/19 25 05/02/2024 CBC W Diffe renti al panel , metho d unspe cifie d - Blood hematocrit [volume fraction] of blood by automated count 44.4 % low: 37.5%h igh: 51% Hemat ocrit 44.4 37.5 - 51.0 % 05/02 6:[address] [facility] Not Available Not Available 09/01/2024 16:25:16 05/02/19 25 05/02/2024 CBC W Diffe renti al panel , metho d unspe cifie d - Blood MCV [entitic mean volume] in red blood cells by automated count 78.6 fL low: 79fLhi gh: 97fL low MCV 78.6 (L) 79.0 - 97.0 fL 05/02 6:05 AM [facility] Not Available Not Available 09/01/2024 16:25:16 05/02/19 25 05/02/2024 CBC W Diffe renti al panel , metho d unspe cifie d - Blood MCH [entitic mass] by automated count 23.7 pg low: 26.6pg high: 33pg low MCH 23.7 (L) 26.6 - 33.0 pg 05/02 6:05 AM [facility] Not Available Not Available 09/01/2024 16:25:16 05/02/19 25 05/02/2024 CBC W Diffe renti al panel , metho d unspe cifie d - Blood MCHC [entitic mass/volume] in red blood cells by automated count 30.2 g/dL low: 31.5g/ dLhigh : 35.7g/ dL low MCHC 30.2 (L) 31.5 - 35.7 g/dL 05/02 6:05 AM [facility] Not Available Not Available 09/01/2024 16:25:16 05/02/19 25 05/02/2024 CBC W Diffe renti al panel , metho d unspe cifie d - Blood erythrocyte [distwidth] in red blood cells by automated count 19.8 % low: 12.3%h igh: 15.4% high RDW 19.8 (H) 12.3 - 15.4 % 05/02 6:05 AM [facility] Not Available Not Available 09/01/2024 16:25:16 05/02/19 25 05/02/2024 CBC W Diffe renti al panel , metho d unspe cifie d - Blood RDW-SD 53.8 fL low: 37fLhi gh: 54fL RDW-S D 53.8 37.0 - 54.0 fl 05/02 6:05 AM [facility] Not Available Not Available 09/01/2024 16:25:16 05/02/19 25 05/02/2024 CBC W Diffe renti al panel , metho d unspe cifie d - Blood platelet [entitic mean volume] in blood by automated count 9.4 fL low: 6fLhig h: 12fL MPV 9.4 6.0 - 12.0 fL 05/02 6:05 AM [facility] Not Available Not Available 09/01/2024 16:25:16 05/02/19 25 05/02/2024 CBC W Diffe michaelti al panel , metho d unspe cifie d - Blood platelets [#/volume] in blood by automated count 245 10*3/ mm3 low: 68410* 3/mm3h igh: 50451* 3/mm3 Plate lets 245 140 - 450 10*3/ mm3 05/02 6:05 AM [facility] Not Available Not Available 09/01/2024 16:25:16 05/02/19 25 05/02/2024 CBC W Diffe michaelti al panel , metho d unspe cifie d - Blood neutrophils/ leukocytes in blood by automated count 61 % low: 42.7%h igh: 76% Neutr ophil % 61.0 42.7 - 76.0 % 05/02 6:05 AM [facility] Not Available Not Available 09/01/2024 [...] - 12.0 % 05/02 6:05 AM EST BAPTI [employer] [facility] Not Available Not Available 09/01/2024 16:25:16 05/02/19 25 05/02/2024 CBC W Diffe renti al panel , metho d unspe cifie d - Blood eosinophils/ leukocytes in blood by automated count 4.7 % low: 0.3%hi gh: 6.2% Eosin ophil % 4.7 0.3 - 6.2 % 05/02 6:05 AM EST [employer]TI [employer] [facility] Not Available Not Available 09/01/2024 16:25:16 05/02/19 25 05/02/2024 CBC W Diffe renti al panel , metho d unspe cifie d - Blood basophils/le ukocytes in blood by automated count 0.8 % low: 0%high : 1.5% Basop hil % 0.8 0.0 - 1.5 % 05/02 6:05 AM EST [employer]TI [employer] [facility] Not Available Not Available 09/01/2024 16:25:16 05/02/19 25 05/02/2024 CBC W Diffe renti al panel , metho d unspe cifie d - Blood immature granulocytes /leukocytes in blood by automated count 0.3 % low: 0%high : 0.5% Immat ure Grans % 0.3 0.0 - 0.5 % 05/02 6:05 AM EST OncoscopeTI [employer]T [facility] [employer] [facility] Not Available Not Available 09/01/2024 16:25:16 05/02/19 25 05/02/2024 CBC W Diffe renti al panel , metho d unspe cifie d - Blood neutrophils/ leukocytes in blood by automated count 5.67 10*3/ mm3 low: 1.710* 3/mm3h igh: 710*3/ mm3 Neutr ophil s, Absol [place] 5.67 1.70 - 7.00 10*3/ mm3 05/02 6:05 AM EST [email or web address] [facility] Not Available Not Available 09/01/2024 16:25:16 05/02/19 25 05/02/2024 CBC W Diffe renti al panel , metho d unspe cifie d - Blood lymphocytes [#/volume] in blood by automated count 2.44 10*3/ mm3 low: 0.710* 3/mm3h igh: 3.110* 3/mm3 Lymph ocyte s, Absol [place] 2.44 0.70 - 3.10 10*3/ mm3 05/02 6:05 AM EST [email or web address] [facility] Not Available Not Available 09/01/2024 16:25:16 05/02/19 25 05/02/2024 CBC W Diffe renti al panel , metho d unspe cifie d - Blood monocytes [#/volume] in blood by automated count 0.65 10*3/ mm3 low: 0.110* 3/mm3h igh: 0.910* 3/mm3 Monoc ytes, Absol [place] 0.65 0.10 - 0.90 10*3/ mm3 05/02 6:05 AM EST [employer] [facility] [email or web address] [facility] Not Available Not Available 09/01/2024 16:25:16 05/02/19 25 05/02/2024 CBC W Diffe renti al panel , metho d unspe cifie d - Blood eosinophils [#/volume] in blood by automated count 0.44 10*3/ mm3 low: 010*3/ mm3hig h: 0.410* 3/mm3 high Eosin ophil s, Absol [place] 0.44 (H) 0.00 - 0.40 10*3/ mm3 05/02 6:05 AM EST [employer] [facility] [email or web address] [facility] Not Available Not Available 09/01/2024 16:25:16 05/02/19 25 05/02/2024 CBC W Diffe renti al panel , metho d unspe cifie d - Blood basophils [#/volume] in blood by automated count 0.07 10*3/ mm3 low: 010*3/ mm3hig h: 0.210* 3/mm3 Basop hils, Absol [place] 0.07 0.00 - 0.20 10*3/ mm3 05/02 6:[address] [facility] [employer] [employer]IN [employer] [facility] AT[facility] Not Available Not Available 09/01/2024 16:25:16 05/02/19 25 05/02/2024 CBC W Diffe renti al panel , metho d unspe cifie d - Blood immature granulocytes [#/volume] in blood by automated count 0.03 10*3/ mm3 low: 010*3/ mm3hig h: 0.0510 *3/mm3 Immat ure Grans , Absol [place] 0.03 0.00 - 0.05 10*3/ mm3 05/02 6:05 AM EST [email or web address] [facility] Not Available Not Available 09/01/2024 16:25:16 05/02/19 25 05/02/2024 CBC W Diffe renti al panel , metho d unspe cifie d - Blood nucleated erythrocytes /leukocytes [ratio] in blood by automated count 0 text: 0.0 - 0.2 /100 WBC nRBC 0.0 0.0 - 0.2 /100 WBC 05/02 6:05 AM EST [employer] H [employer] ATORY Not Available Not Available 09/01/2024 16:25:16 [...] - 2.4 mg/dL 05/02 6:[address] [facility] Not Available [...] - 99 mg/dL 05/02 6:30 AM EST [employer] [facility]IN [facility] Not Available Not Available 09/01/2024 16:25:16 05/02/19 25 05/02/2024 Basic metab olic 2000 panel - Serum or Plasm a urea nitrogen [mass/volume ] in serum or plasma 30 mg/dL low: 8mg/dL high: 23mg/d L high BUN 30 (H) 8 - 23 mg/dL 05/02 6:30 AM EST [employer] [facility] H [employer]KIN [employer] Not Available Not Available 09/01/2024 16:25:16 05/02/19 25 05/02/2024 Basic metab olic 2000 panel - Serum or Plasm a creatinine [mass/volume ] in serum or plasma 1.15 mg/dL low: 0.76mg /dLhig h: 1.27mg /dL Creat inine 1.15 0.76 - 1.27 mg/dL 05/02 6:[address] [facility]T H [facility]KIN [facility] Not Available Not Available 09/01/2024 16:25:16 05/02/19 25 05/02/2024 Basic metab olic 2000 panel - Serum or Plasm a sodium [moles/volum e] in serum or plasma 142 mmol/ L low: 136mmo l/Lhig h: 145mmo l/L Sodiu m 142 136 - 145 mmol/ L 05/02 6:[address] [facility] Not Available Not Available 09/01/2024 16:25:16 05/02/19 25 05/02/2024 Basic metab olic 1999 panel - Serum or Plasm a potassium [moles/volum e] in serum or plasma 4.9 mmol/ L low: 3.5mmo l/Lhig h: 5.2mmo l/L Potas sium 4.9 3.5 - 5.2 mmol/ L 05/02 6:[address] [facility] [facility] Not Available Not Available 09/01/2024 16:25:16 05/02/19 25 05/02/2024 Basic metab olic 1999 panel - Serum or Plasm a chloride [moles/volum e] in serum or plasma 98 mmol/ L low: 98mmol /Lhigh : 107mmo l/L Chlor chava 98 98 - 107 mmol/ L 05/02 6:30 AM EST [employer] [facility] Not Available Not Available 09/01/2024 16:25:16 05/02/19 25 05/02/2024 Basic metab olic 1999 panel - Serum or Plasm a carbon dioxide, total [moles/volum e] in serum or plasma 34 mmol/ L low: 22mmol /Lhigh : 29mmol /L high CO2 34.0 (H) 22.0 - 29.0 mmol/ L 05/02 6:[address] [facility] [employer]T [employer] AT[facility] Not Available Not Available 09/01/2024 16:25:16 05/02/19 25 05/02/2024 Basic metab olic 1999 panel - Serum or Plasm a calcium [moles/volum e] in specimen 9.1 mg/dL low: 8.6mg/ dLhigh : 10.5mg /dL Calci um 9.1 8.6 - 10.5 mg/dL 05/02 6:[address] [facility] [employer] [facility] Not Available Not Available 09/01/2024 16:25:16 05/02/19 25 05/02/2024 Basic metab olic 2000 panel - Serum or Plasm a urea nitrogen/cre atinine [mass ratio] in serum or plasma 26.1 low: 7high: 25 high BUN/C reati nine Ratio 26.1 (H) 7.0 - 25.0 05/02 6:30 AM EST [facility] AT[facility] Not Available Not Available 09/01/2024 16:25:16 05/02/19 25 05/02/2024 Basic metab olic 2000 panel - Serum or Plasm a anion gap in serum or plasma by calculated.3 ions 10 mmol/ L low: 5mmol/ Lhigh: 15mmol /L Anion Gap 10.0 5.0 - 15.0 mmol/ L 05/02 6:30 AM EST re[employer]ounces H [employer] ATORY Not Available Not Available 09/01/2024 16:25:16 05/02/19 25 05/02/2024 Basic metab olic 2000 panel - Serum or Plasm a glomerular filtration rate [volume rate/area] in serum, plasma or blood by creatinine-b ased formula (CKD-epi 2020)/1.73 sq M 72 mL/mi n/1.7 3 low: 60mL/m in/1.7 3 eGFR 72.0 >60.0 mL/mi n/1.7 3 05/02 6:30 AM EST [facility] AT[facility] Not Available Not Available 09/01/2024 16:25:16 [...] - 130 mg/dL 05/04 5:05 PM EST [employer] [facility] stickKIN [employer] Not Available Not Available 09/01/2024 [...] - 130 mg/dL 05/04 12:03 PM EST [email or web address] [facility] Not Available Not Available 09/01/2024 [...] 70 - 130 mg/dL 05/04 8:18 AM [employer] [facility] Not Available Not Available 09/01/2024 [...] - 130 mg/dL 05/05 8:[address] [facility] Not Available [...] - 130 mg/dL 05/05 4:49 PM EST [employer] [facility] Not Available [...] - 130 mg/dL 05/05 12:13 PM EST [employer] [facility]IN [facility] Not Available Not Available [...] mg/dL 05/05 7:[address] [facility] Not Available [...] 11:[address] [facility] stickKIN [employer] Not Available Not Available 09/01/2024 [...] - 99 mg/dL 05/06 10:30 AM EST [employer] Cloud [employer]T [facility] [employer] Not Available Not Available 09/01/2024 16:25:17 05/06/19 25 05/06/2024 Basic metab olic 1999 panel - Serum or Plasm a urea nitrogen [mass/volume ] in serum or plasma 24 mg/dL low: 8mg/dL high: 23mg/d L high BUN 24 (H) 8 - 23 mg/dL 05/06 10:30 AM [facility] Not Available Not Available 09/01/2024 16:25:17 05/06/19 25 05/06/2024 Basic metab olic 1999 panel - Serum or Plasm a creatinine [mass/volume ] in serum or plasma 0.94 mg/dL low: 0.76mg /dLhig h: 1.27mg /dL Creat inine 0.94 0.76 - 1.27 mg/dL 05/06 10:30 AM [facility] Not Available Not Available 09/01/2024 16:25:17 05/06/19 25 05/06/2024 Basic metab olic 1999 panel - Serum or Plasm a sodium [moles/volum e] in serum or plasma 138 mmol/ L low: 136mmo l/Lhig h: 145mmo l/L Sodiu m 138 136 - 145 mmol/ L 05/06 10:30 AM [employer] [facility] Not Available Not Available 09/01/2024 16:25:17 05/06/19 25 05/06/2024 Basic metab olic 1999 panel - Serum or Plasm a potassium [moles/volum e] in serum or plasma 4 mmol/ L low: 3.5mmo l/Lhig h: 5.2mmo l/L Potas sium 4.0 3.5 - 5.2 mmol/ L 05/06 10:30 AM EST [facility] Not Available Not Available 09/01/2024 16:25:17 05/06/19 25 05/06/2024 Basic metab olic 2000 panel - Serum or Plasm a chloride [moles/volum e] in serum or plasma 96 mmol/ L low: 98mmol /Lhigh : 107mmo l/L low Chlor chava 96 (L) 98 - 107 mmol/ L 05/06 10:30 AM EST [facility] Not Available Not Available 09/01/2024 16:25:17 05/06/19 25 05/06/2024 Basic metab olic 2000 panel - Serum or Plasm a carbon dioxide, total [moles/volum e] in serum or plasma 32 mmol/ L low: 22mmol /Lhigh : 29mmol /L high CO2 32.0 (H) 22.0 - 29.0 mmol/ L 05/06 10:30 AM [facility] Not Available Not Available 09/01/2024 16:25:17 05/06/19 25 05/06/2024 Basic metab olic 2000 panel - Serum or Plasm a calcium [moles/volum e] in specimen 9.1 mg/dL low: 8.6mg/ dLhigh : 10.5mg /dL Calci um 9.1 8.6 - 10.5 mg/dL 05/06 10:30 AM [facility] Not Available Not Available 09/01/2024 16:25:17 05/06/19 25 05/06/2024 Basic metab olic 2000 panel - Serum or Plasm a urea nitrogen/cre atinine [mass ratio] in serum or plasma 25.5 low: 7high: 25 high BUN/C reati nine Ratio 25.5 (H) 7.0 - 25.0 05/06 10:30 AM [facility] Not Available Not Available 09/01/2024 16:25:17 05/06/19 25 05/06/2024 Basic metab olic 2000 panel - Serum or Plasm a anion gap in serum or plasma by calculated.3 ions 10 mmol/ L low: 5mmol/ Lhigh: 15mmol /L Anion Gap 10.0 5.0 - 15.0 mmol/ L 05/06 10:[address] [facility] [employer] [employer] AT[facility] Not Available Not Available 09/01/2024 16:25:17 05/06/19 25 05/06/2024 Basic metab olic 1999 panel - Serum or Plasm a glomerular filtration rate [volume rate/area] in serum, plasma or blood by creatinine-b ased formula (CKD-epi 2020)/1.73 sq M 91.7 mL/mi n/1.7 3 low: 60mL/m in/1.7 3 eGFR 91.7 >60.0 mL/mi n/1.7 3 05/06 10:30 AM EST [employer] ATORY Not Available Not Available 09/01/2024 16:25:17 [...] 9:[address] [facility] stickKMIGNON [employer] ATORY Not Available Not Available 09/01/2024 16:25:17 05/06/19 25 05/06/2024 CBC panel - Blood by Autom ated count hematocrit [volume fraction] of blood by automated count 42 % low: 37.5%h igh: 51% Hemat ocrit 42.0 37.5 - 51.0 % 05/06 9:59 AM [employer] [facility] stickKMIGNON [employer] ATORY Not Available Not Available 09/01/2024 16:25:17 05/06/19 25 05/06/2024 CBC panel - Blood by Autom ated count MCV [entitic mean volume] in red blood cells by automated count 78.5 fL low: 79fLhi gh: 97fL low MCV 78.5 (L) 79.0 - 97.0 fL 05/06 9:59 AM [employer] [facility] ATORY Not Available Not Available 09/01/2024 16:25:17 05/06/19 25 05/06/2024 CBC panel - Blood by Autom ated count MCH [entitic mass] by automated count 24.1 pg low: 26.6pg high: 33pg low MCH 24.1 (L) 26.6 - 33.0 pg 05/06 9:59 AM [employer] [facility] stickKMIGNON [employer] ATORY Not Available Not Available 09/01/2024 16:25:17 05/06/19 25 05/06/2024 CBC panel - Blood by Autom ated count MCHC [entitic mass/volume] in red blood cells by automated count 30.7 g/dL low: 31.5g/ dLhigh : 35.7g/ dL low MCHC 30.7 (L) 31.5 - 35.7 g/dL 05/06 9:59 AM [employer] [facility] [employer] ATORY Not Available Not Available 09/01/2024 16:25:17 05/06/19 25 05/06/2024 CBC panel - Blood by Autom ated count erythrocyte [distwidth] in red blood cells by automated count 19.9 % low: 12.3%h igh: 15.4% high RDW 19.9 (H) 12.3 - 15.4 % 05/06 9:59 AM EST [employer] [facility] [employer] [employer] [facility] AT[facility] Not Available Not Available 09/01/2024 16:25:17 05/06/19 25 05/06/2024 CBC panel - Blood by Autom ated count RDW-SD 53.5 fL low: 37fLhi gh: 54fL RDW-S D 53.5 37.0 - 54.0 fl 05/06 9:59 AM EST [email or web address] LAB[facility] AT[facility] Not Available Not Available 09/01/2024 16:25:17 05/06/19 25 05/06/2024 CBC panel - Blood by Autom ated count platelet [entitic mean volume] in blood by automated count 9.5 fL low: 6fLhig h: 12fL MPV 9.5 6.0 - 12.0 fL 05/06 9:59 AM EST [employer] [facility] AT[facility] Not Available Not Available 09/01/2024 16:25:17 05/06/19 25 05/06/2024 CBC panel - Blood by Autom ated count platelets [#/volume] in blood by automated count 256 10*3/ mm3 low: 66066* 3/mm3h igh: 10935* 3/mm3 Plate lets 256 140 - 450 10*3/ mm3 05/06 9:59 AM EST [employer] [facility] AT[facility] Not Available Not Available 09/01/2024 [...] 70 - 130 mg/dL 05/06 7:55 AM EST [employer] [facility] AT[facility] Not Available Not Available 09/01/2024 16:25:17 05/06/19 25 05/06/2024 Basic metab olic 2000 panel - Serum or Plasm a interpretati on and review of laboratory results Abnorm al Not Available Not Available 16:25:17 05/26/19 25 05/26/2024 Basic metab olic 2000 panel - Serum or Plasm a glucose [mass/volume ] in capillary blood by glucometer 189 mg/dL low: 70mg/d Lhigh: 130mg/ dL high Gluco se 189 (H) 70 - 130 mg/dL 05/26 8:[address] [facility] Not Available Not Available 09/01/2024 16:28:05 05/26/19 25 05/26/2024 Basic metab olic 2000 panel - Serum [...] results Abnorm al Not Available Not Available 16:28:05/26/19 25 05/26/2024 Lipid panel with direc [...] - 60 mg/dL 05/26 4:35 PM EST [employer] [facility] [employer] [employer]IN [employer] [facility] ATORY Not Available Not Available 09/01/2024 16:28:05 05/26/19 25 05/26/2024 Lipid panel with direc t LDL - Serum or Plasm a cholesterol in LDL [mass/volume ] in serum or plasma by calculation 74 mg/dL low: 0mg/dL high: 100mg/ dL LDL Trudy stero l 74 0 - 100 mg/dL 05/26 4:35 PM EST [employer]KIN [employer] LABOR ATORY Not Available Not Available 09/01/2024 16:28:05 05/26/19 25 05/26/2024 Lipid panel with direc t LDL - Serum or Plasm a cholesterol in VLDL [mass/volume ] in serum or plasma 28 mg/dL low: 5mg/dL high: 40mg/d L VLDL Trudy stero l 28 5 - 40 mg/dL 05/26 4:35 PM EST [employer] Cloud [employer] [facility] [employer] LAB[facility] ATORY Not Available Not Available 09/01/2024 16:28:05 05/26/19 25 05/26/2024 Lipid panel with direc t LDL - Serum or Plasm a cholesterol in LDL/choleste rol in HDL [mass ratio] in serum or plasma 1.3 LDL/H DL Ratio 1.30 05/26 4:35 PM EST [employer] [facility] [employer] LAB[facility] ATORY Not Available Not Available 09/01/2024 16:28:05 05/26/19 25 05/26/2024 Lipid panel with direc t LDL - Serum or Plasm a Unknown Analyte Choles terol Refere nce Ranges ([facility] ATP III Classi ficati ons) Desira ble <200 mg/dL Border line High 200-23 9 mg/dL High Risk >240 mg/dL Trigly ceride Refere nce Ranges ([facility] ATP III Classi ficati ons) Normal <150 mg/dL Border line High 150-19 9 mg/dL High 200-49 9 mg/dL Very High >500 mg/dL HDL Refere nce Ranges ([facility] ATP III Classi ficati ons) Low <40 mg/dl (major risk factor for CHD) High >60 mg/dl ('nega tive' risk factor for CHD) LDL Refere nce Ranges ([facility] ATP III Classi ficati ons) [employer] l <100 mg/dL Near [employer] l 100-12 9 mg/dL Border line High 130-15 9 mg/dL High 160-18 9 mg/dL Very High >189 mg/dL LDL is calcul ated using the NIH LDL-C calcul ation. Trudy stero l Refer ence Range s ([facility] ATP III Class ifica tions ) Raad able <200 mg/dL Borde rline High 200-2 39 mg/dL High Risk >240 mg/dL Trigl yceri de Refer ence Range s ([facility] Servi kristan ATP III Class ifica tions ) Etta l <150 mg/dL Borde rline High 150-1 99 mg/dL High 200-4 99 mg/dL Very High >500 mg/dL HDL Refer ence Range s ([facility] ATP III Class ifica tions ) Low <40 mg/dl (lanie r risk facto r for CHD) High >60 mg/dl ('neg ative ' risk facto r for CHD) LDL Refer ence Range s ([facility] tment of [facility] h and Human Servi kristan ATP III Class ifica tions ) [...] 10.80 10*3/ mm3 05/26 2:20 PM EST [employer] Cloud [employer]T [employer] LABOR ATORY Not Available Not Available 09/01/2024 16:28:04 05/26/1905/26/2024 CBC W Diffe michaelti al panel , metho d unspe cifie d - Blood erythrocytes [#/volume] in blood by automated count 4.88 10*6/ mm3 low: 4.1410 *6/mm3 high: 5.810* 6/mm3 RBC 4.88 4.14 - 5.80 10*6/ mm3 05/26 2:20 PM EST [employer] LABOR ATORY Not Available Not Available 09/01/2024 16:28:04 05/26/1905/26/2024 CBC W Anthony kumar al panel , metho d unspe cifie d - Blood hemoglobin [mass/volume ] in blood 11.7 g/dL low: 13g/dL high: 17.7g/ dL low Hemog lobin 11.7 (L) 13.0 - 17.7 g/dL 05/26 2:20 PM EST [facility] ATORY Not Available Not Available 09/01/2024 16:28:04 05/26/1905/26/2024 CBC W Anthony kumar al panel , metho d unspe cifie d - Blood hematocrit [volume fraction] of blood by automated count 38.6 % low: 37.5%h igh: 51% Hemat ocrit 38.6 37.5 - 51.0 % 05/26 2:20 PM EST [facility] ATORY Not Available Not Available 09/01/2024 16:28:04 05/26/19 25 05/26/2024 CBC W Diffe renti al panel , metho d unspe cifie d - Blood MCV [entitic mean volume] in red blood cells by automated count 79.1 fL low: 79fLhi gh: 97fL MCV 79.1 79.0 - 97.0 fL 05/26 2:20 PM EST [facility] ATORY Not Available Not Available 09/01/2024 16:28:04 05/26/19 25 05/26/2024 CBC W Diffe renti al panel , metho d unspe cifie d - Blood MCH [entitic mass] by automated count 24 pg low: 26.6pg high: 33pg low MCH 24.0 (L) 26.6 - 33.0 pg 05/26 2:20 PM EST [employer] [facility] [email or web address] LABOR ATORY Not Available Not Available 09/01/2024 16:28:04 05/26/19 25 05/26/2024 CBC W Diffe renti al panel , metho d unspe cifie d - Blood MCHC [entitic mass/volume] in red blood cells by automated count 30.3 g/dL low: 31.5g/ dLhigh : 35.7g/ dL low MCHC 30.3 (L) 31.5 - 35.7 g/dL 05/26 2:20 PM EST [employer] [facility] [email or web address] LABOR ATORY Not Available Not Available 09/01/2024 16:28:04 05/26/19 25 05/26/2024 CBC W Diffe renti al panel , metho d unspe cifie d - Blood erythrocyte [distwidth] in red blood cells by automated count 18.4 % low: 12.3%h igh: 15.4% high RDW 18.4 (H) 12.3 - 15.4 % 05/26 2:20 PM EST [employer] [facility] [email or web address] LABOR ATORY Not Available Not Available 09/01/2024 16:28:04 05/26/19 25 05/26/2024 CBC W Diffe renti al panel , metho d unspe cifie d - Blood RDW-SD 52.8 fL low: 37fLhi gh: 54fL RDW-S D 52.8 37.0 - 54.0 fl 05/26 2:[address] [facility] [email or web address] LAB[facility] AT[facility] Not Available Not Available 09/01/2024 16:28:04 05/26/19 25 05/26/2024 CBC W Diffe renti al panel , metho d unspe cifie d - Blood platelet [entitic mean volume] in blood by automated count 9.2 fL low: 6fLhig h: 12fL MPV 9.2 6.0 - 12.0 fL 05/26 2:20 PM EST [email or web address] LABOR ATORY Not Available Not Available 09/01/2024 16:28:04 05/26/19 25 05/26/2024 CBC W Diffe josé al panel , metho d unspe cifie d - Blood platelets [#/volume] in blood by automated count 279 10*3/ mm3 low: 63949* 3/mm3h igh: 23462* 3/mm3 Plate lets 279 140 - 450 10*3/ mm3 05/26 2:20 PM EST [facility] LAB[facility] ATORY Not Available Not Available 09/01/2024 16:28:04 05/26/19 25 05/26/2024 CBC W Jennifere josé al panel , metho d unspe cifie d - Blood neutrophils/ leukocytes in blood by automated count 75 % low: 42.7%h igh: 76% Neutr ophil % 75.0 42.7 - 76.0 % 05/26 2:20 PM EST [facility] ATORY Not Available Not Available 09/01/2024 16:28:04 05/26/19 25 05/26/2024 CBC W [place] josé al panel , metho d unspe cifie d - Blood lymphocytes/ leukocytes in blood by automated count 14 % low: 19.6%h igh: 45.3% low Lymph ocyte % 14.0 (L) 19.6 - 45.3 % 05/26 2:20 PM EST [facility] Not Available Not Available 09/01/2024 16:28:04 05/26/19 25 05/26/2024 CBC W [place] josé al panel , [...] - 6.2 % 05/26 2:[address] [facility] [employer] [facility] Not Available Not Available 09/01/2024 16:28:04 05/26/19 25 05/26/2024 CBC W Diffe renti al panel , metho d unspe cifie d - Blood basophils/le ukocytes in blood by automated count 0.3 % low: 0%high : 1.5% Basop hil % 0.3 0.0 - 1.5 % 05/26 2:20 PM EST [employer] [facility] [employer] [facility] Not Available Not Available 09/01/2024 16:28:04 05/26/19 25 05/26/2024 CBC W Diffe renti al panel , metho d unspe cifie d - Blood immature granulocytes /leukocytes in blood by automated count 0.3 % low: 0%high : 0.5% Immat ure Grans % 0.3 0.0 - 0.5 % 05/26 2:20 PM EST [employer] [facility] [employer] [facility] Not Available Not Available 09/01/2024 16:28:04 05/26/19 25 05/26/2024 CBC W Diffe renti al panel , metho d unspe cifie d - Blood neutrophils/ leukocytes in blood by automated count 7.02 10*3/ mm3 low: 1.710* 3/mm3h igh: 710*3/ mm3 high Neutr ophil s, Absol [place] 7.02 (H) 1.70 - 7.00 10*3/ mm3 05/26 2:[address] [facility] Not Available Not Available 09/01/2024 16:28:04 05/26/19 05/26/2024 CBC W Diffe renti al panel , metho d unspe cifie d - Blood lymphocytes [#/volume] in blood by automated count 1.31 10*3/ mm3 low: 0.710* 3/mm3h igh: 3.110* 3/mm3 Lymph ocyte s, Absol [place] 1.31 0.70 - 3.10 10*3/ mm3 05/26 2:20 PM EST [email or web address] [facility] Not Available Not Available 09/01/2024 16:28:04 05/26/19 25 05/26/2024 CBC W Diffe renti al panel , metho d unspe cifie d - Blood monocytes [#/volume] in blood by automated count 0.65 10*3/ mm3 low: 0.110* 3/mm3h igh: 0.910* 3/mm3 Monoc ytes, Absol [place] 0.65 0.10 - 0.90 10*3/ mm3 05/26 2:20 PM EST [employer]ounces [email or web address] Not Available Not Available 09/01/2024 16:28:04 05/26/19 25 05/26/2024 CBC W Diffe renti al panel , metho d unspe cifie d - Blood eosinophils [#/volume] in blood by automated count 0.33 10*3/ mm3 low: 010*3/ mm3hig h: 0.410* 3/mm3 Eosin ophil s, Absol [place] 0.33 0.00 - 0.40 10*3/ mm3 05/26 2:20 PM EST [employer] [email or web address] Not Available Not Available 09/01/2024 16:28:04 05/26/19 25 05/26/2024 CBC W Diffe renti al panel , metho d unspe cifie d - Blood basophils [#/volume] in blood by automated count 0.03 10*3/ mm3 low: 010*3/ mm3hig h: 0.210* 3/mm3 Basop hils, Absol [place] 0.03 0.00 - 0.20 10*3/ mm3 05/26 2:20 PM EST [employer] [facility] Not Available Not Available 09/01/2024 16:28:04 05/26/19 25 05/26/2024 CBC W Diffe renti al panel , metho d unspe cifie d - Blood immature granulocytes [#/volume] in blood by automated count 0.03 10*3/ mm3 low: 010*3/ mm3hig h: 0.0510 *3/mm3 Immat ure Grans , Absol [place] 0.03 0.00 - 0.05 10*3/ mm3 05/26 2:[address] [facility] [employer] [employer] [facility] Not Available Not Available 09/01/2024 16:28:04 05/26/19 25 05/26/2024 CBC W Diffe renti al panel , metho d unspe cifie d - Blood nucleated erythrocytes /leukocytes [ratio] in blood by automated count 0 text: 0.0 - 0.2 /100 WBC nRBC 0.0 0.0 - 0.2 /100 WBC 05/26 2:[address] [email or web address] Not Available Not Available 09/01/2024 [...] 2:[address] [facility] [employer] [facility] Not Available Not Available 09/01/2024 [...] tion. Not Available Not Available 09/01/2024 16:28:04 05/26/19 25 05/26/2024 Tropo basim T.car diac [Mass /volu me] in Serum or Plasm a by High sensi tivit y metho d interpretati on and review of laboratory results Abnorm al Not Available Not Available 16:28:04 05/26/19 25 05/26/2024 Natri ureti c [...] - 130 mg/dL 05/27 7:[address] [facility] [employer] [facility] Not Available Not Available 09/01/2024 [...] - 130 mg/dL 05/27 4:[address] [facility] [employer] [facility] Not Available Not Available 09/01/2024 [...] - 130 mg/dL 05/27 11:47 AM EST [employer] [facility] [employer] Not Available Not Available 09/01/2024 [...] Available Not Available 16:28:05 05/27/19 25 05/27/2024 Phosp hate [Mass /volu me] [...] 7.0% Not Available Not Available 09/01/2024 16:28:05/27/19 05/27/2024 Hemog lobin A1c/H emogl obin. total [...] AM EST [facility] Not Available Not Available 09/01/2024 16:28:05 05/27/19 25 05/27/2024 CBC W Anthony kumar al panel , metho d unspe cifie d - Blood MCV [entitic mean volume] in red blood cells by automated count 80.9 fL low: 79fLhi gh: 97fL MCV 80.9 79.0 - 97.0 fL 05/27 5:46 AM EST [employer] [facility] Not Available Not Available 09/01/2024 16:28:05 05/27/19 25 05/27/2024 CBC W Anthony kumar al panel , metho d unspe cifie d - Blood MCH [entitic mass] by automated count 24 pg low: 26.6pg high: 33pg low MCH 24.0 (L) 26.6 - 33.0 pg 05/27 5:46 AM EST [facility] Not Available Not Available 09/01/2024 16:28:05 05/27/19 25 05/27/2024 CBC W Anthony kumar al panel , metho d unspe cifie d - Blood MCHC [entitic mass/volume] in red blood cells by automated count 29.7 g/dL low: 31.5g/ dLhigh : 35.7g/ dL low MCHC 29.7 (L) 31.5 - 35.7 g/dL 05/27 5:46 AM EST [employer] [facility] Not Available Not Available 09/01/2024 16:28:05 05/27/19 25 05/27/2024 CBC W Anthony kumar al panel , metho d unspe cifie d - Blood erythrocyte [distwidth] in red blood cells by automated count 18.6 % low: 12.3%h igh: 15.4% high RDW 18.6 (H) 12.3 - 15.4 % 05/27 5:46 AM EST [facility] Not Available Not Available 09/01/2024 16:28:05 05/27/19 25 05/27/2024 CBC W Anthony kumar al panel , metho d unspe cifie d - Blood RDW-SD 54.4 fL low: 37fLhi gh: 54fL high RDW-S D 54.4 (H) 37.0 - 54.0 fl 05/27 5:46 AM EST [employer] [facility] [email or web address] Not Available Not Available 09/01/2024 16:28:05 05/27/19 25 05/27/2024 CBC W Anthony kumar al panel , metho d unspe cifie d - Blood platelet [entitic mean volume] in blood by automated count 9.3 fL low: 6fLhig h: 12fL MPV 9.3 6.0 - 12.0 fL 05/27 5:46 AM EST [facility] Not Available Not Available 09/01/2024 16:28:05 05/27/19 25 05/27/2024 CBC W Anthony kumar al panel , metho d unspe cifie d - Blood platelets [#/volume] in blood by automated count 266 10*3/ mm3 low: 97901* 3/mm3h igh: 27566* 3/mm3 Plate lets 266 140 - 450 10*3/ mm3 05/27 5:46 AM EST [facility] Not Available Not Available 09/01/2024 16:28:05 05/27/19 25 05/27/2024 CBC W Anthony kumar al panel , metho d unspe cifie d - Blood neutrophils/ leukocytes in blood by automated count 62 % low: 42.7%h igh: 76% Neutr ophil % 62.0 42.7 - 76.0 % 05/27 5:46 AM [employer] [facility] Not Available Not Available 09/01/2024 [...] % 05/27 5:[address] [employer] [facility] Not Available Not Available 09/01/2024 16:28:05 05/27/19 25 05/27/2024 CBC W Diffe josé al panel , metho d unspe cifie d - Blood eosinophils/ leukocytes in blood by automated count 4.2 % low: 0.3%hi gh: 6.2% Eosin ophil % 4.2 0.3 - 6.2 % 05/27 5:[address] [employer] [facility] Not Available Not Available 09/01/2024 16:28:05 05/27/19 25 05/27/2024 CBC W Jennifere josé al panel , metho d unspe cifie d - Blood basophils/le ukocytes in blood by automated count 0.2 % low: 0%high : 1.5% Basop hil % 0.2 0.0 - 1.5 % 05/27 5:[address] [employer] [facility] Not Available [...] igh: 710*3/ mm3 Neutr ophil s, Absol [place] 5.39 1.70 - 7.00 10*3/ mm3 05/27 5:[address] [facility] Not Available Not Available 09/01/2024 16:28:05 05/27/19 25 05/27/2024 CBC W Diffe renti al panel , metho d unspe cifie d - Blood lymphocytes [#/volume] in blood by automated count 2.01 10*3/ mm3 low: 0.710* 3/mm3h igh: 3.110* 3/mm3 Lymph ocyte s, Absol [place] 2.01 0.70 - 3.10 10*3/ mm3 05/27 5:[address] [facility] [employer] [facility] Not Available Not Available 09/01/2024 16:28:05 05/27/19 25 05/27/2024 CBC W Diffe renti al panel , metho d unspe cifie d - Blood monocytes [#/volume] in blood by automated count 0.89 10*3/ mm3 low: 0.110* 3/mm3h igh: 0.910* 3/mm3 Monoc ytes, Absol [place] 0.89 0.10 - 0.90 10*3/ mm3 05/27 5:[address] [facility] [employer] Not Available Not Available 09/01/2024 16:28:05 05/27/19 25 05/27/2024 CBC W Diffe renti al panel , metho d unspe cifie d - Blood eosinophils [#/volume] in blood by automated count 0.37 10*3/ mm3 low: 010*3/ mm3hig h: 0.410* 3/mm3 Eosin ophil s, Absol [place] 0.37 0.00 - 0.40 10*3/ mm3 05/27 5:[address] [facility] [employer] Not Available Not Available 09/01/2024 16:28:05 05/27/19 25 05/27/2024 CBC W Diffe renti al panel , metho d unspe cifie d - Blood basophils [#/volume] in blood by automated count 0.02 10*3/ mm3 low: 010*3/ mm3hig h: 0.210* 3/mm3 Basop hils, Absol [place] 0.02 0.00 - 0.20 10*3/ mm3 05/27 5:[address] [facility] [employer] Not Available Not Available 09/01/2024 16:28:05/27/19 25 05/27/2024 CBC W Diffe renti al panel , metho d unspe cifie d - Blood immature granulocytes [#/volume] in blood by automated count 0.03 10*3/ mm3 low: 010*3/ mm3hig h: 0.0510 *3/mm3 Immat ure Grans , Absol [place] 0.03 0.00 - 0.05 10*3/ mm3 05/27 5:[address] [facility] [facility] [employer] [facility] Not Available Not Available 09/01/2024 16:28:05/27/19 25 05/27/2024 CBC W Diffe renti al panel , metho d unspe cifie d - Blood nucleated erythrocytes /leukocytes [ratio] in blood by automated count 0 text: 0.0 - 0.2 /100 WBC nRBC 0.0 0.0 - 0.2 /100 WBC 05/27 5:[address] [facility] [employer] [employer] [facility] Not Available Not Available 09/01/2024 [...] - 2.4 mg/dL 05/27 6:04 AM EST [email or web address] [facility] Not Available Not Available 09/01/2024 [...] - 130 mg/dL 05/28 8:09 PM EST [email or web address] [facility] Not Available Not Available 09/01/2024 [...] 10.80 10*3/ mm3 05/28 3:17 PM EST [email or web address] [facility] Not Available Not Available 09/01/2024 16:28:06 05/28/19 25 05/28/2024 CBC W Diffe renti al panel , metho d unspe cifie d - Blood erythrocytes [#/volume] in blood by automated count 4.97 10*6/ mm3 low: 4.1410 *6/mm3 high: 5.810* 6/mm3 RBC 4.97 4.14 - 5.80 10*6/ mm3 05/28 3:17 PM EST [employer] [facility] Not Available Not Available 09/01/2024 16:28:06 05/28/19 25 05/28/2024 CBC W Diffe renti al panel , metho d unspe cifie d - Blood hemoglobin [mass/volume ] in blood 11.9 g/dL low: 13g/dL high: 17.7g/ dL low Hemog lobin 11.9 (L) 13.0 - 17.7 g/dL 05/28 3:17 PM EST [employer] [facility] Not Available Not Available 09/01/2024 16:28:06 05/28/19 25 05/28/2024 CBC W Diffe renti al panel , metho d unspe cifie d - Blood hematocrit [volume fraction] of blood by automated count 38.9 % low: 37.5%h igh: 51% Hemat ocrit 38.9 37.5 - 51.0 % 05/28 3:17 PM EST [email or web address] Not Available Not Available 09/01/2024 16:28:05/28/19 25 05/28/2024 CBC W Diffe renti al panel , metho d unspe cifie d - Blood MCV [entitic mean volume] in red blood cells by automated count 78.3 fL low: 79fLhi gh: 97fL low MCV 78.3 (L) 79.0 - 97.0 fL 05/28 3:[address] [email or web address] Not Available Not Available 09/01/2024 16:28:06 05/28/19 25 05/28/2024 CBC W Diffe renti al panel , metho d unspe cifie d - Blood MCH [entitic mass] by automated count 23.9 pg low: 26.6pg high: 33pg low MCH 23.9 (L) 26.6 - 33.0 pg 05/28 3:17 PM EST Oncoscope [facility]St[email or web address] Not Available Not Available 09/01/2024 16:28:06 05/28/19 25 05/28/2024 CBC W Diffe renti al panel , metho d unspe cifie d - Blood MCHC [entitic mass/volume] in red blood cells by automated count 30.6 g/dL low: 31.5g/ dLhigh : 35.7g/ dL low MCHC 30.6 (L) 31.5 - 35.7 g/dL 05/28 3:17 PM [employer] [facility] Not Available Not Available 09/01/2024 16:28:06 05/28/19 25 05/28/2024 CBC W Diffnaren kumar al panel , metho d unspe cifie d - Blood erythrocyte [distwidth] in red blood cells by automated count 17.6 % low: 12.3%h igh: 15.4% high RDW 17.6 (H) 12.3 - 15.4 % 05/28 3:17 PM [employer] [facility] Not Available Not Available 09/01/2024 16:28:06 05/28/1905/28/2024 CBC W Diffnaren kumar al panel , metho d unspe cifie d - Blood RDW-SD 49.8 fL low: 37fLhi gh: 54fL RDW-S D 49.8 37.0 - 54.0 fl 05/28 3:17 PM [employer] [facility] Not Available Not Available 09/01/2024 16:28:06 05/28/19 25 05/28/2024 CBC W Diffnaren kumar al panel , metho d unspe cifie d - Blood platelet [entitic mean volume] in blood by automated count 9.2 fL low: 6fLhig h: 12fL MPV 9.2 6.0 - 12.0 fL 05/28 3:17 PM [employer] [facility] Not Available Not Available 09/01/2024 16:28:06 05/28/19 25 05/28/2024 CBC W Diffnaren kumar al panel , metho d unspe cifie d - Blood platelets [#/volume] in blood by automated count 305 10*3/ mm3 low: 77113* 3/mm3h igh: 00704* 3/mm3 Plate lets 305 140 - 450 10*3/ mm3 02/15 /2025 3:[address] [facility] [employer] [facility] Not Available Not Available 09/01/2024 16:28:06 05/28/19 25 05/28/2024 CBC W Diffe renti al panel , metho d unspe cifie d - Blood neutrophils/ leukocytes in blood by automated count 65.8 % low: 42.7%h igh: 76% Neutr ophil % 65.8 42.7 - 76.0 % 05/28 3:[address] [employer] [facility] Not Available Not Available 09/01/2024 16:28:06 05/28/1905/28/2024 CBC W Diffe renti al panel , metho d unspe cifie d - Blood lymphocytes/ leukocytes in blood by automated count 20.5 % low: 19.6%h igh: 45.3% Lymph ocyte % 20.5 19.6 - 45.3 % 05/28 3:17 PM EST [employer] [facility] Not Available Not Available 09/01/2024 16:28:06 05/28/19 25 05/28/2024 CBC W Diffe renti al panel , metho d unspe cifie d - Blood monocytes/le ukocytes in blood by automated count 7.8 % low: 5%high : 12% Monoc yte % 7.8 5.0 - 12.0 % 05/28 3:[address] [facility] [facility] Not Available [...] - 1.5 % 05/28 3:17 PM EST [facility] Not Available Not Available 09/01/2024 16:28:06 05/28/19 25 05/28/2024 CBC W Diffe renti al panel , metho d unspe cifie d - Blood immature granulocytes /leukocytes in blood by automated count 0.3 % low: 0%high : 0.5% Immat ure Grans % 0.3 0.0 - 0.5 % 05/28 3:17 PM EST [facility] Not Available Not Available 09/01/2024 16:28:06 05/28/19 25 05/28/2024 CBC W Jennifere josé al panel , metho d unspe cifie d - Blood neutrophils/ leukocytes in blood by automated count 6.58 10*3/ mm3 low: 1.710* 3/mm3h igh: 710*3/ mm3 Neutr ophil s, Absol [place] 6.58 1.70 - 7.00 10*3/ mm3 05/28 3:17 PM EST [facility] Not Available Not Available 09/01/2024 16:28:06 05/28/19 25 05/28/2024 CBC W Jennifere josé al panel , metho d unspe cifie d - Blood lymphocytes [#/volume] in blood by automated count 2.05 10*3/ mm3 low: 0.710* 3/mm3h igh: 3.110* 3/mm3 Lymph ocyte s, Absol [place] 2.05 0.70 - 3.10 10*3/ mm3 05/28 3:17 PM EST [facility] Not Available Not Available 09/01/2024 16:28:06 05/28/19 25 05/28/2024 CBC W Diffe josé al panel , metho d unspe cifie d - Blood monocytes [#/volume] in blood by automated count 0.78 10*3/ mm3 low: 0.110* 3/mm3h igh: 0.910* 3/mm3 Monoc ytes, Absol [place] 0.78 0.10 - 0.90 10*3/ mm3 05/28 3:[address] [facility] Not Available Not Available 09/01/2024 16:28:06 05/28/19 25 05/28/2024 CBC W Diffe renti al panel , metho d unspe cifie d - Blood eosinophils [#/volume] in blood by automated count 0.52 10*3/ mm3 low: 010*3/ mm3hig h: 0.410* 3/mm3 high Eosin ophil s, Absol [place] 0.52 (H) 0.00 - 0.40 10*3/ mm3 05/28 3:[address] [facility] Not Available Not Available 09/01/2024 16:28:06 05/28/19 25 05/28/2024 CBC W Diffe renti al panel , metho d unspe cifie d - Blood basophils [#/volume] in blood by automated count 0.04 10*3/ mm3 low: 010*3/ mm3hig h: 0.210* 3/mm3 Basop hils, Absol [place] 0.04 0.00 - 0.20 10*3/ mm3 05/28 3:[address] [facility] [employer] Not Available Not Available 09/01/2024 16:28:06 05/28/19 25 05/28/2024 CBC W Diffe renti al panel , metho d unspe cifie d - Blood immature granulocytes [#/volume] in blood by automated count 0.03 10*3/ mm3 low: 010*3/ mm3hig h: 0.0510 *3/mm3 Immat ure Grans , Absol [place] 0.03 0.00 - 0.05 10*3/ mm3 05/28 3:[address] [facility] [employer] [facility] Not Available Not Available 09/01/2024 [...] Available Not Available 16:28:06 05/28/19 25 05/28/2024 Phosp hate [Mass /volu me] in Serum or Plasm a phosphate [mass/volume ] in serum or plasma 5.4 mg/dL low: 2.5mg/ dLhigh : 4.5mg/ dL high Phosp horus 5.4 (H) 2.5 - 4.5 mg/dL 05/28 3:[address] [facility] Not Available Not Available 09/01/2024 16:28:05/28/19 25 05/28/2024 Phosp hate [Mass /volu me] in Serum [...] - 130 mg/dL 05/29 4:43 PM EST [facility] Not Available Not Available 09/01/2024 [...] - 130 mg/dL 05/29 11:50 AM EST [facility] Not Available Not Available 09/01/2024 [...] - 130 mg/dL 05/29 7:26 AM EST [facility] Not Available Not Available 09/01/2024 16:28:06 [...] - 2.4 mg/dL 05/29 6:54 AM EST [employer] [facility] [employer] Not Available Not Available 09/01/2024 [...] - 130 mg/dL 05/30 8:08 PM EST [employer] [facility] [employer] Not Available Not Available 09/01/2024 [...] - 130 mg/dL 05/30 4:45 PM EST [employer] [facility] [email or web address] [facility] Not Available Not Available 09/01/2024 [...] RE FILMA RRAY 05/30 1:[address] [facility] Not Available [...] RRAY 05/30 1:[address] [employer] [facility] Not Available [...] infec tion. Not Available Not Available 09/01/2024 16:28:06 05/30/19 [...] - 130 mg/dL 05/30 7:22 AM EST [employer]KIN [employer] [facility] Not Available Not Available 09/01/2024 16:28:06 05/30/19 25 05/30/2024 Basic metab olic 1999 panel - Serum [...] - 2.4 mg/dL 05/30 6:48 AM EST [employer]anning Cloud AppsT [facility] [employer] [employer] Not Available Not Available 09/01/2024 [...] - 99 mg/dL 05/30 6:41 AM EST [employer]KIN [employer] Not Available Not Available 09/01/2024 16:28:06 05/30/19 25 05/30/2024 Renal funct ion 1999 panel - Serum or Plasm a urea nitrogen [mass/volume ] in serum or plasma 29 mg/dL low: 8mg/dL high: 23mg/d L high BUN 29 (H) 8 - 23 mg/dL 05/30 6:41 AM EST [facility] [employer] ATORY Not Available Not Available 09/01/2024 16:28:06 05/30/19 25 05/30/2024 Renal funct ion 1999 panel - Serum or Plasm a creatinine [mass/volume ] in serum or plasma 1.51 mg/dL low: 0.76mg /dLhig h: 1.27mg /dL high Creat inine 1.51 (H) 0.76 - 1.27 mg/dL 05/30 6:41 AM EST [facility] AT[facility] Not Available Not Available 09/01/2024 16:28:06 05/30/19 25 05/30/2024 Renal funct ion 1999 panel - Serum or Plasm a sodium [moles/volum e] in serum or plasma 133 mmol/ L low: 136mmo l/Lhig h: 145mmo l/L low Sodiu m 133 (L) 136 - 145 mmol/ L 05/30 6:41 AM EST [facility] AT[facility] Not Available Not Available 09/01/2024 16:28:06 05/30/19 25 05/30/2024 Renal funct ion 1999 panel - Serum or Plasm a potassium [moles/volum e] in serum or plasma 3.3 mmol/ L low: 3.5mmo l/Lhig h: 5.2mmo l/L low Potas sium 3.3 (L) 3.5 - 5.2 mmol/ L 05/30 6:41 AM EST [facility] AT[facility] Not Available Not Available 09/01/2024 16:28:06 05/30/19 25 05/30/2024 Renal funct ion 1999 panel - Serum or Plasm a chloride [moles/volum e] in serum or plasma 84 mmol/ L low: 98mmol /Lhigh : 107mmo l/L low Chlor chava 84 (L) 98 - 107 mmol/ L 05/30 6:41 AM EST [facility] AT[facility] Not Available Not Available 09/01/2024 16:28:06 05/30/19 25 05/30/2024 Renal funct ion 1999 panel - Serum or Plasm a carbon dioxide, total [moles/volum e] in serum or plasma 40 mmol/ L low: 22mmol /Lhigh : 29mmol /L high CO2 40.0 (H) 22.0 - 29.0 mmol/ L 05/30 6:41 AM [employer] ATORY Not Available Not Available 09/01/2024 16:28:06 05/30/19 25 05/30/2024 Renal funct ion 1999 panel - Serum or Plasm a calcium [moles/volum e] in specimen 9.3 mg/dL low: 8.6mg/ dLhigh : 10.5mg /dL Calci um 9.3 8.6 - 10.5 mg/dL 05/30 6:41 AM EST [facility] Not Available Not Available 09/01/2024 16:28:06 05/30/19 25 05/30/2024 Renal funct ion 1999 panel - Serum or Plasm a albumin [mass/volume ] in serum or plasma 3.6 g/dL low: 3.5g/d Lhigh: 5.2g/d L Album in 3.6 3.5 - 5.2 g/dL 05/30 6:41 AM [employer] AT[facility] Not Available Not Available 09/01/2024 16:28:06 05/30/19 25 05/30/2024 Renal funct ion 1999 panel - Serum or Plasm a phosphate [mass/volume ] in serum or plasma 5.6 mg/dL low: 2.5mg/ dLhigh : 4.5mg/ dL high Phosp horus 5.6 (H) 2.5 - 4.5 mg/dL 05/30 6:41 AM [employer] AT[facility] Not Available Not Available 09/01/2024 16:28:06 05/30/19 25 05/30/2024 Renal funct ion 1999 panel - Serum or Plasm a anion gap in serum or plasma by calculated.3 ions 9 mmol/ L low: 5mmol/ Lhigh: 15mmol /L Anion Gap 9.0 5.0 - 15.0 mmol/ L 05/30 6:41 AM [employer] AT[facility] Not Available Not Available 09/01/2024 16:28:06 05/30/19 25 05/30/2024 Renal funct ion 1999 panel - Serum or Plasm a urea nitrogen/cre atinine [mass ratio] in serum or plasma 19.2 low: 7high: 25 BUN/C reati nine Ratio 19.2 7.0 - 25.0 05/30 6:41 AM EST [facility] AT[facility] Not Available Not Available 09/01/2024 16:28:06 05/30/19 25 05/30/2024 Renal funct ion 1999 panel - Serum or Plasm a glomerular filtration rate [volume rate/area] in serum, plasma or blood by creatinine-b ased formula (CKD-epi 2020)/1.73 sq M 51.9 mL/mi n/1.7 3 low: 60mL/m in/1.7 3 low eGFR 51.9 (L) >60.0 mL/mi n/1.7 3 05/30 6:41 AM [employer] AT[facility] Not Available Not Available 09/01/2024 16:28:06 [...] 16:28:06 05/30/19 25 05/30/2024 Renal funct ion 2000 panel - Serum or Plasm a [...] 11:[address] [facility] [...] - 130 mg/dL 05/31 7:[address] [facility] [...] - 130 mg/dL 06/01 8:[address] [facility] [...] - 130 mg/dL 06/01 4:[address] [facility] [facility] Not Available Not Available [...] - 130 mg/dL 06/01 4:22 PM EST [employer] [facility] [employer] [facility] Not Available Not Available 09/01/2024 [...] - 130 mg/dL 06/01 11:21 AM EST [employer] [facility] [employer] [employer] [facility] Not Available Not Available 09/01/2024 [...] se 227 (H) 70 - 130 mg/dL 02/19 /2025 7:19 AM EST [employer] [facility] Not Available [...] - 99 mg/dL 06/01 4:[address] [facility] Not Available Not Available 09/01/2024 16:28:07 06/01/19 25 06/01/2024 Basic metab olic 2000 panel - Serum or Plasm a urea nitrogen [mass/volume ] in serum or plasma 33 mg/dL low: 8mg/dL high: 23mg/d L high BUN 33 (H) 8 - 23 mg/dL 06/01 4:[address] [facility] Not Available Not Available 09/01/2024 16:28:07 06/01/19 25 06/01/2024 Basic metab olic 1999 panel - Serum or Plasm a creatinine [mass/volume ] in serum or plasma 1.33 mg/dL low: 0.76mg /dLhig h: 1.27mg /dL high Creat inine 1.33 (H) 0.76 - 1.27 mg/dL 06/01 4:[address] [facility] Not Available Not Available 09/01/2024 16:28:07 06/01/19 25 06/01/2024 Basic metab olic 1999 panel - Serum or Plasm a sodium [moles/volum e] in serum or plasma 131 mmol/ L low: 136mmo l/Lhig h: 145mmo l/L low Sodiu m 131 (L) 136 - 145 mmol/ L 06/01 4:[address] [facility] Not Available Not Available 09/01/2024 16:28:07 06/01/19 25 06/01/2024 Basic metab olic 1999 panel - Serum or Plasm a potassium [moles/volum e] in serum or plasma 3.8 mmol/ L low: 3.5mmo l/Lhig h: 5.2mmo l/L Potas sium 3.8 3.5 - 5.2 mmol/ L 06/01 4:[address] [facility] Not Available Not Available 09/01/2024 16:28:07 06/01/19 25 06/01/2024 Basic metab olic 1999 panel - Serum or Plasm a chloride [moles/volum e] in serum or plasma 87 mmol/ L low: 98mmol /Lhigh : 107mmo l/L low Chlor chava 87 (L) 98 - 107 mmol/ L 06/01 4:48 AM EST [employer] [facility] Not Available Not Available 09/01/2024 16:28:07 06/01/19 25 06/01/2024 Basic metab olic 1999 panel - Serum or Plasm a carbon dioxide, total [moles/volum e] in serum or plasma 37 mmol/ L low: 22mmol /Lhigh : 29mmol /L high CO2 37.0 (H) 22.0 - 29.0 mmol/ L 06/01 4:48 AM EST [employer] [facility] Not Available Not Available 09/01/2024 16:28:07 06/01/19 25 06/01/2024 Basic metab olic 1999 panel - Serum or Plasm a calcium [moles/volum e] in specimen 9.2 mg/dL low: 8.6mg/ dLhigh : 10.5mg /dL Calci um 9.2 8.6 - 10.5 mg/dL 06/01 4:[address] [facility] [employer] LABOR ATORY Not Available Not Available 09/01/2024 16:28:07 06/01/19 25 06/01/2024 Basic metab olic 1999 panel - Serum or Plasm a urea nitrogen/cre atinine [mass ratio] in serum or plasma 24.8 low: 7high: 25 BUN/C reati nine Ratio 24.8 7.0 - 25.0 06/01 4:[address] [email or web address] LABOR ATORY Not Available Not Available 09/01/2024 16:28:07 06/01/19 25 06/01/2024 Basic metab olic 1999 panel - Serum or Plasm a anion gap in serum or plasma by calculated.3 ions 7 mmol/ L low: 5mmol/ Lhigh: 15mmol /L Anion Gap 7.0 5.0 - 15.0 mmol/ L 06/01 4:[address] [facility] [employer] [facility] [email or web address] LABOR ATORY Not Available Not Available 09/01/2024 16:28:07 06/01/19 25 06/01/2024 Basic metab olic 1999 panel - Serum or Plasm a glomerular filtration rate [volume rate/area] in serum, plasma or blood by creatinine-b ased formula (CKD-epi 2020)/1.73 sq M 60.4 mL/mi n/1.7 3 low: 60mL/m in/1.7 3 eGFR 60.4 >60.0 mL/mi n/1.7 3 06/01 4:48 AM EST [employer] [facility] [employer] [employer] LABOR ATORY Not Available Not Available 09/01/2024 16:28:07 06/01/1906/01/2024 Basic metab olic 2000 panel - Serum [...] - 130 mg/dL 06/02 11:[address] [facility] [employer] H [facility] LABOR ATORY Not Available Not Available [...] 7:[address] [facility] LABOR AT[facility] Not Available Not Available 09/01/2024 16:28:07 06/02/19 25 06/02/2024 Basic metab olic 2000 panel - Serum or Plasm a interpretati on and review of laboratory results Abnorm al Not Available Not Available 16:28:06/03/1906/03/2024 Basic metab olic 2000 panel - Serum [...] Abnorm al Not Available Not Available 16:28:08 06/03/1906/03/2024 CBC W Diffe renti al [...] 6:[address] [facility] LABOR ATORY Not Available Not Available 09/01/2024 16:28:08 06/03/1906/03/2024 CBC W Anthony kumar al panel , metho d unspe cifie d - Blood hematocrit [volume fraction] of blood by automated count 38.7 % low: 37.5%h igh: 51% Hemat ocrit 38.7 37.5 - 51.0 % 06/03 6:50 AM EST [email or web address] LABOR ATORY Not Available Not Available 09/01/2024 16:28:08 06/03/19 25 06/03/2024 CBC W Anthony kumar al panel , metho d unspe cifie d - Blood MCV [entitic mean volume] in red blood cells by automated count 78.5 fL low: 79fLhi gh: 97fL low MCV 78.5 (L) 79.0 - 97.0 fL 06/03 6:50 AM EST [email or web address] LAB[facility] AT[facility] Not Available Not Available 09/01/2024 16:28:08 06/03/19 25 06/03/2024 CBC W Anthony kumar al panel , metho d unspe cifie d - Blood MCH [entitic mass] by automated count 24.1 pg low: 26.6pg high: 33pg low MCH 24.1 (L) 26.6 - 33.0 pg 06/03 6:50 AM EST [email or web address] LAB[facility] AT[facility] Not Available Not Available 09/01/2024 16:28:08 06/03/19 25 06/03/2024 CBC W Anthony kumar al panel , metho d unspe cifie d - Blood MCHC [entitic mass/volume] in red blood cells by automated count 30.7 g/dL low: 31.5g/ dLhigh : 35.7g/ dL low MCHC 30.7 (L) 31.5 - 35.7 g/dL 06/03 6:50 AM EST [employer] LABOR ATORY Not Available Not Available 09/01/2024 16:28:08 02/21/06/03/2024 CBC W Diffe renti al panel , metho d unspe cifie d - Blood erythrocyte [distwidth] in red blood cells by automated count 17.6 % low: 12.3%h igh: 15.4% high RDW 17.6 (H) 12.3 - 15.4 % 06/03 6:50 AM EST [facility] LABOR ATORY Not Available Not Available 09/01/2024 16:28:08 06/03/19 25 06/03/2024 CBC W Diffe josé al panel , metho d unspe cifie d - Blood RDW-SD 48.8 fL low: 37fLhi gh: 54fL RDW-S D 48.8 37.0 - 54.0 fl 06/03 6:50 AM [employer] ATORY Not Available Not Available 09/01/2024 16:28:08 06/03/19 25 06/03/2024 CBC W Anthony kumar al panel , metho d unspe cifie d - Blood platelet [entitic mean volume] in blood by automated count 9.1 fL low: 6fLhig h: 12fL MPV 9.1 6.0 - 12.0 fL 06/03 6:50 AM EST [facility] ATORY Not Available Not Available 09/01/2024 16:28:08 06/03/19 25 06/03/2024 CBC W Anthony kumar al panel , metho d unspe cifie d - Blood platelets [#/volume] in blood by automated count 326 10*3/ mm3 low: 93161* 3/mm3h igh: 80873* 3/mm3 Plate lets 326 140 - 450 10*3/ mm3 06/03 6:50 AM [employer] ATORY Not Available Not Available 09/01/2024 16:28:08 06/03/19 25 06/03/2024 CBC W Diffe josé al panel , metho d unspe cifie d - Blood neutrophils/ leukocytes in blood by automated count 78.7 % low: 42.7%h igh: 76% high Neutr ophil % 78.7 (H) 42.7 - 76.0 % 06/03 6:[address] [employer] [facility] LABOR ATORY Not Available Not Available 09/01/2024 16:28:08 06/03/19 25 06/03/2024 CBC W Diffe renti al panel , metho d unspe cifie d - Blood lymphocytes/ leukocytes in blood by automated count 14.6 % low: 19.6%h igh: 45.3% low Lymph ocyte % 14.6 (L) 19.6 - 45.3 % 06/03 6:[address] [facility] [employer] [facility] LABOR ATORY Not Available Not Available 09/01/2024 16:28:08 06/03/1906/03/2024 CBC W Diffe renti al panel , metho d unspe cifie d - Blood monocytes/le ukocytes in blood by automated count 4.7 % low: 5%high : 12% low Monoc yte % 4.7 (L) 5.0 - 12.0 % 06/03 6:50 AM EST [employer] [facility] LABOR ATORY Not Available Not Available 09/01/2024 16:28:08 06/03/1906/03/2024 CBC W Diffe renti al panel , metho d unspe cifie d - Blood eosinophils/ leukocytes in blood by automated count 0.1 % low: 0.3%hi gh: 6.2% low Eosin ophil % 0.1 (L) 0.3 - 6.2 % 06/03 6:50 AM EST [employer] Cloud [employer] stickKIN [facility] LABOR ATORY Not Available Not Available 09/01/2024 16:28:08 06/03/19 25 06/03/2024 CBC W Diffe renti al panel , metho d unspe cifie d - Blood basophils/le ukocytes in blood by automated count 0.3 % low: 0%high : 1.5% Basop hil % 0.3 0.0 - 1.5 % 06/03 6:[address] [facility] [employer] [facility] [place] LABOR ATORY Not Available Not Available 09/01/2024 16:28:08 02/21/20 25 06/03/2024 CBC W Diffe renti al panel , metho d unspe cifie d - Blood immature granulocytes /leukocytes in blood by automated count 1.6 % low: 0%high : 0.5% high Immat ure Grans % 1.6 (H) 0.0 - 0.5 % 06/03 6:[address] [facility] [email or web address] LAB[facility] ATORY Not Available Not Available 09/01/2024 16:28:08 06/03/19 25 06/03/2024 CBC W Diffe renti al panel , metho d unspe cifie d - Blood neutrophils/ leukocytes in blood by automated count 11.08 10*3/ mm3 low: 1.710* 3/mm3h igh: 710*3/ mm3 high Neutr ophil s, Absol [place] 11.08 (H) 1.70 - 7.00 10*3/ mm3 06/03 6:50 AM EST [facility] [email or web address] LABOR ATORY Not Available Not Available 09/01/2024 16:28:08 06/03/19 25 06/03/2024 CBC W Diffe renti al panel , metho d unspe cifie d - Blood lymphocytes [#/volume] in blood by automated count 2.05 10*3/ mm3 low: 0.710* 3/mm3h igh: 3.110* 3/mm3 Lymph ocyte s, Absol [place] 2.05 0.70 - 3.10 10*3/ mm3 06/03 6:50 AM EST [facility] [email or web address] LABOR ATORY Not Available Not Available 09/01/2024 16:28:08 06/03/19 25 06/03/2024 CBC W Diffe renti al panel , metho d unspe cifie d - Blood monocytes [#/volume] in blood by automated count 0.66 10*3/ mm3 low: 0.110* 3/mm3h igh: 0.910* 3/mm3 Monoc ytes, Absol [place] 0.66 0.10 - 0.90 10*3/ mm3 06/03 6:50 AM EST [facility] [employer] [facility] LABOR ATORY Not Available Not Available 09/01/2024 16:28:08 06/03/19 25 06/03/2024 CBC W Diffe renti al panel , metho d unspe cifie d - Blood eosinophils [#/volume] in blood by automated count 0.02 10*3/ mm3 low: 010*3/ mm3hig h: 0.410* 3/mm3 Eosin ophil s, Absol [place] 0.02 0.00 - 0.40 10*3/ mm3 06/03 6:[address] [facility] LABOR ATORY Not Available Not Available 09/01/2024 16:28:08 06/03/19 25 06/03/2024 CBC W Diffe renti al panel , metho d unspe cifie d - Blood basophils [#/volume] in blood by automated count 0.04 10*3/ mm3 low: 010*3/ mm3hig h: 0.210* 3/mm3 Basop hils, Absol [place] 0.04 0.00 - 0.20 10*3/ mm3 06/03 6:[address] [facility] [employer] [facility] [employer]KIN [facility] LABOR ATORY Not Available Not Available 09/01/2024 16:28:08 06/03/19 25 06/03/2024 CBC W Diffe renti al panel , metho d unspe cifie d - Blood immature granulocytes [#/volume] in blood by automated count 0.22 10*3/ mm3 low: 010*3/ mm3hig h: 0.0510 *3/mm3 high Immat ure Grans , Absol [place] 0.22 (H) 0.00 - 0.05 10*3/ mm3 06/03 6:[address] [facility] LABOR ATORY Not Available Not Available 09/01/2024 16:28:08 06/03/19 25 06/03/2024 CBC W Diffe renti al panel , metho d unspe cifie d - Blood nucleated erythrocytes /leukocytes [ratio] in blood by automated count 0 text: 0.0 - 0.2 /100 WBC nRBC 0.0 0.0 - 0.2 /100 WBC 06/03 6:50 AM [facility] [employer] ATORY Not Available Not Available 09/01/2024 16:28:08 [...] 1.6 - 2.4 mg/dL 06/03 7:08 AM [facility] [employer] ATORY Not Available Not Available 09/01/2024 16:28:08 [...] 65 - 99 mg/dL 06/03 7:08 AM [facility] [email or web address] LABOR ATORY Not Available Not Available 09/01/2024 16:28:08 06/03/19 25 06/03/2024 Basic metab olic 2000 panel - Serum or Plasm a urea nitrogen [mass/volume ] in serum or plasma 30 mg/dL low: 8mg/dL high: 23mg/d L high BUN 30 (H) 8 - 23 mg/dL 06/03 7:08 AM [facility] Not Available Not Available 09/01/2024 16:28:08 06/03/19 25 06/03/2024 Basic metab olic 2000 panel - Serum or Plasm a creatinine [mass/volume ] in serum or plasma 1.11 mg/dL low: 0.76mg /dLhig h: 1.27mg /dL Creat inine 1.11 0.76 - 1.27 mg/dL 06/03 7:08 AM EST [facility] LABOR ATORY Not Available Not Available 09/01/2024 16:28:08 06/03/19 25 06/03/2024 Basic metab olic 1999 panel - Serum or Plasm a sodium [moles/volum e] in serum or plasma 133 mmol/ L low: 136mmo l/Lhig h: 145mmo l/L low Sodiu m 133 (L) 136 - 145 mmol/ L 06/03 7:08 AM [facility] LABOR ATORY Not Available Not Available 09/01/2024 16:28:08 06/03/19 25 06/03/2024 Basic metab olic 1999 panel - Serum or Plasm a potassium [moles/volum e] in serum or plasma 4.3 mmol/ L low: 3.5mmo l/Lhig h: 5.2mmo l/L Potas sium 4.3 3.5 - 5.2 mmol/ L 06/03 7:08 AM [facility] LABOR ATORY Not Available Not Available 09/01/2024 16:28:08 06/03/19 25 06/03/2024 Basic metab olic 1999 panel - Serum or Plasm a chloride [moles/volum e] in serum or plasma 89 mmol/ L low: 98mmol /Lhigh : 107mmo l/L low Chlor chava 89 (L) 98 - 107 mmol/ L 06/03 7:08 AM [facility] LABOR ATORY Not Available Not Available 09/01/2024 16:28:08 06/03/19 25 06/03/2024 Basic metab olic 1999 panel - Serum or Plasm a carbon dioxide, total [moles/volum e] in serum or plasma 35 mmol/ L low: 22mmol /Lhigh : 29mmol /L high CO2 35.0 (H) 22.0 - 29.0 mmol/ L 06/03 7:08 AM EST [facility] ATORY Not Available Not Available 09/01/2024 16:28:08 06/03/19 25 06/03/2024 Basic metab olic 2000 panel - Serum or Plasm a calcium [moles/volum e] in specimen 9.4 mg/dL low: 8.6mg/ dLhigh : 10.5mg /dL Calci um 9.4 8.6 - 10.5 mg/dL 06/03 7:08 AM EST [facility] ATORY Not Available Not Available 09/01/2024 16:28:08 06/03/19 25 06/03/2024 Basic metab olic 1999 panel - Serum or Plasm a urea nitrogen/cre atinine [mass ratio] in serum or plasma 27 low: 7high: 25 high BUN/C reati nine Ratio 27.0 (H) 7.0 - 25.0 06/03 7:08 AM EST [facility] ATORY Not Available Not Available 09/01/2024 16:28:08 06/03/19 25 06/03/2024 Basic metab olic 2000 panel - Serum or Plasm a anion gap in serum or plasma by calculated.3 ions 9 mmol/ L low: 5mmol/ Lhigh: 15mmol /L Anion Gap 9.0 5.0 - 15.0 mmol/ L 06/03 7:08 AM EST [facility] ATORY Not Available Not Available 09/01/2024 16:28:08 06/03/19 25 06/03/2024 Basic metab olic 1999 panel - Serum or Plasm a glomerular filtration rate [volume rate/area] in serum, plasma or blood by creatinine-b ased formula (CKD-epi 2020)/1.73 sq M 75.1 mL/mi n/1.7 3 low: 60mL/m in/1.7 3 eGFR 75.1 >60.0 mL/mi n/1.7 3 06/03 7:08 AM EST [facility] ATORY Not Available Not Available 09/01/2024 16:28:08 [...] - 130 mg/dL 06/29 10:11 PM EDT [facility] [employer] LAB[facility] ATORY Not Available Not Available 09/01/2024 [...] - 130 mg/dL 06/29 8:37 PM EDT [facility] H stickKIN [employer] LABOR ATORY Not Available Not Available 09/01/2024 [...] - 130 mg/dL 06/29 6:40 PM EDT [facility] [employer] LABOR ATORY Not Available Not Available 09/01/2024 [...] - 130 mg/dL 06/29 4:38 PM EDT [facility] stickKIN [employer] LABOR ATORY Not Available Not Available 09/01/2024 [...] mg/dL low: 0mg/dL high: 0.5mg/ dL high C-Gisela ctive Prote in 6.38 (H) 0.00 - 0.50 mg/dL 06/29 4:41 PM EDT [facility] [email or web address] LABOR ATORY Not Available Not Available 09/01/2024 [...] (H) <22 ng/L 06/29 1:43 PM EDT [facility] stickKIN [employer]ON LABOR ATORY Not Available Not Available 09/01/2024 [...] No Beta Hemol ytic Strep tococ cus [place] contreras at 2 days LENARD 07/01 11:03 [...] DISK DIFFU ELOY 06/29 12:[address] [facility] Not Available Not Available 09/01/2024 16:25:56 06/30/19 25 06/29/2024 Strep tococ cus pyoge cristobal Ag [Pres ence] in [facility] Unknown Analyte Test perfor med by Direct Antige n Testin g. Test perfo rmed by Dire t Antig en Testi ng. Not Available Not Available 09/01/2024 16:25:56 06/30/19 25 06/29/2024 Strep tococ cus pyoge cristobal Ag [Pres ence] in [facility] interpretati on and review of laboratory results Normal Not Available Not Available 08/12 16:25:56 06/30/19 25 06/29/2024 Urina lysis macro (dips tick) panel - Urine color of urine Yellow text: yellow , straw Color , UA Yello w Yello w, Straw 06/29 12:20 PM EDT [facility] Not Available Not Available 09/01/2024 16:25:56 06/30/19 25 06/29/2024 Urina lysis macro (dips tick) panel - Urine clarity of urine Clear text: clear Appea emma , UA Clear Clear 06/29 12:20 PM EDT [facility] AT[facility] Not Available Not Available 09/01/2024 16:25:56 06/30/19 25 06/29/2024 Urina lysis macro (dips tick) panel - Urine pH of urine by automated test strip 7 low: 5high: 8 pH, UA 7.0 5.0 - 8.0 06/29 12:[address] [facility] AT[facility] Not Available Not Available 09/01/2024 16:25:56 06/30/19 25 06/29/2024 Urina lysis macro (dips tick) panel - Urine specific gravity of urine by test strip 1.018 low: 1.001h igh: 1.03 Speci fic Gravi ty, UA 1.018 1.001 - 1.030 06/29 12:20 PM EDT [facility] [employer] [facility] [employer]ON LABOR ATORY Not Available Not Available 09/01/2024 16:25:56 06/30/19 25 06/29/2024 Urina lysis macro (dips tick) panel - Urine glucose [mass/volume ] in urine by test strip 500 mg/dL (2+) text: negati ve abnormal Gluco se, UA 500 mg/dL (2+) (A) Negat minh 06/29 12:20 PM EDT [facility] [employer] LABOR ATORY Not Available Not Available 09/01/2024 16:25:56 06/30/19 25 06/29/2024 Urina lysis macro (dips tick) panel - Urine ketones [presence] in urine by test strip Negati ve text: negati ve [place] es, UA Negat minh Negat minh 06/29 12:20 PM EDT [facility] [employer] [facility] [employer] LABOR ATORY Not Available Not Available 09/01/2024 16:25:56 06/30/19 25 06/29/2024 Urina lysis macro (dips tick) panel - Urine bilirubin.to alberto [presence] in urine by test strip Negati ve text: negati ve Bilir ubin, UA Negat minh Negat minh 06/29 12:20 PM EDT [facility] [employer] [facility] [employer] LABOR ATORY Not Available Not Available 09/01/2024 16:25:56 06/30/19 25 06/29/2024 Urina lysis macro (dips tick) panel - Urine hemoglobin [presence] in urine by automated test strip Negati ve text: negati ve Blood , UA Negat minh Negat minh 06/29 12:20 PM EDT [employer] [employer] LABOR ATORY Not Available Not Available 09/01/2024 16:25:56 06/30/19 25 06/29/2024 Urina lysis macro (dips tick) panel - Urine protein [presence] in urine by test strip 30 mg/dL (1+) text: negati ve abnormal Prote in, UA 30 mg/dL (1+) (A) Negat minh 06/29 12:20 PM EDT [facility] [email or web address] LABOR ATORY Not Available Not Available 09/01/2024 16:25:56 06/30/19 25 06/29/2024 Urina lysis macro (dips tick) panel - Urine leukocyte esterase [presence] in urine by automated test strip Negati ve text: negati ve Leuk Kacey ase, UA Negat minh Negat minh 06/29 12:20 PM EDT [facility] [email or web address] LABOR ATORY Not Available Not Available 09/01/2024 16:25:56 06/30/19 25 06/29/2024 Urina lysis macro (dips tick) panel - Urine nitrite [presence] in urine by test strip Negati ve text: negati ve Nitri te, UA Negat minh Negat minh 06/29 12:20 PM EDT [facility] [email or web address] LABOR ATORY Not Available Not Available 09/01/2024 16:25:56 06/30/19 25 06/29/2024 Urina lysis macro (dips tick) panel - Urine urobilinogen [presence] in urine by test strip 0.2 E.U./d L text: 0.2 - 1.0 E.U./d L Urobi linog en, UA 0.2 E.U./ dL 0.2 - 1.0 E.U./ dL 06/29 12:20 PM EDT [facility] [employer] [facility] [email or web address] LABOR ATORY Not Available Not Available 09/01/2024 [...] Not Available 08/12 16:25:56 06/30/19 25 06/29/2024 Magne sium Ioniz ed [Mass /volu me] in Serum or Plasm a magnesium [mass/volume ] in serum or plasma 2.4 mg/dL low: 1.6mg/ dLhigh : 2.4mg/ dL Magne sium 2.4 1.6 - 2.4 mg/dL 06/29 12:41 PM EDT [facility] LABOR ATORY Not Available Not [...] - 1.68 ng/dL 06/29 12:25 PM EDT [facility] [employer]KIN [facility] LABOR ATORY Not Available Not Available [...] - 0.25 ng/mL 06/29 12:24 PM EDT [facility] LABOR ATORY Not Available Not [...] day mortal ity risk marker : Manzanares naren in Procal citoni n Result (>80% or <=80%) if Day 0 (or Day 1) and Day 4 values are availa ble. Refer to http:/ /www.[facility]- pct-ca lculat or.com Change in PCT <=80% [...] are avail able. Refer to http: //www .[facility] ms-pc t-jone culat or.co m Manzanares [...] 09/01/2024 16:25:56 06/30/19 25 06/29/2024 Proca lcito absim [Mass /volu me] in Serum or Plasm [...] 10.80 10*3/ mm3 06/29 11:58 AM EDT [facility] LABOR ATORY Not Available Not Available 09/01/2024 16:25:56 06/30/19 25 06/29/2024 CBC W Diffe renti al panel , metho d unspe cifie d - Blood erythrocytes [#/volume] in blood by automated count 4.64 10*6/ mm3 low: 4.1410 *6/mm3 high: 5.810* 6/mm3 RBC 4.64 4.14 - 5.80 10*6/ mm3 06/29 11:58 AM EDT [employer] ATORY Not Available Not Available 09/01/2024 16:25:56 06/30/1906/29/2024 CBC W Diffe renti al panel , metho d unspe cifie d - Blood hemoglobin [mass/volume ] in blood 11.2 g/dL low: 13g/dL high: 17.7g/ dL low Hemog lobin 11.2 (L) 13.0 - 17.7 g/dL 06/29 11:58 AM EDT [facility] ATORY Not Available Not Available 09/01/2024 16:25:56 06/30/19 25 06/29/2024 CBC W Diffe renti al panel , metho d unspe cifie d - Blood hematocrit [volume fraction] of blood by automated count 38.5 % low: 37.5%h igh: 51% Hemat ocrit 38.5 37.5 - 51.0 % 06/29 11:58 AM EDT [facility] LABOR ATORY Not Available Not Available 09/01/2024 16:25:56 06/30/19 25 06/29/2024 CBC W Diffe renti al panel , metho d unspe cifie d - Blood MCV [entitic mean volume] in red blood cells by automated count 83 fL low: 79fLhi gh: 97fL MCV 83.0 79.0 - 97.0 fL 06/29 11:58 AM EDT [facility] [email or web address] LAB[facility] ATORY Not Available Not Available 09/01/2024 16:25:56 06/30/19 25 06/29/2024 CBC W Diffe renti al panel , metho d unspe cifie d - Blood MCH [entitic mass] by automated count 24.1 pg low: 26.6pg high: 33pg low MCH 24.1 (L) 26.6 - 33.0 pg 06/29 11:58 AM EDT [facility] [employer] ATORY Not Available Not Available 09/01/2024 16:25:56 06/30/19 25 06/29/2024 CBC W Diffe renti al panel , metho d unspe cifie d - Blood MCHC [entitic mass/volume] in red blood cells by automated count 29.1 g/dL low: 31.5g/ dLhigh : 35.7g/ dL low MCHC 29.1 (L) 31.5 - 35.7 g/dL 06/29 11:58 AM EDT [employer] LABOR ATORY Not Available Not Available 09/01/2024 16:25:56 06/30/1906/29/2024 CBC W Diffe renti al panel , metho d unspe cifie d - Blood erythrocyte [distwidth] in red blood cells by automated count 17.6 % low: 12.3%h igh: 15.4% high RDW 17.6 (H) 12.3 - 15.4 % 06/29 11:58 AM EDT [employer] ATORY Not Available Not Available 09/01/2024 16:25:56 06/30/19 25 06/29/2024 CBC W Diffe renti al panel , metho d unspe cifie d - Blood RDW-SD 53.1 fL low: 37fLhi gh: 54fL RDW-S D 53.1 37.0 - 54.0 fl 06/29 11:58 AM EDT [employer] [email or web address] LABOR ATORY Not Available Not Available 09/01/2024 16:25:56 06/30/19 25 06/29/2024 CBC W Diffe renti al panel , metho d unspe cifie d - Blood platelet [entitic mean volume] in blood by automated count 9 fL low: 6fLhig h: 12fL MPV 9.0 6.0 - 12.0 fL 06/29 11:58 AM EDT [employer] [email or web address] LABOR ATORY Not Available Not Available 09/01/2024 16:25:56 06/30/19 25 06/29/2024 CBC W Diffe renti al panel , metho d unspe cifie d - Blood platelets [#/volume] in blood by automated count 415 10*3/ mm3 low: 59008* 3/mm3h igh: 08274* 3/mm3 Plate lets 415 140 - 450 10*3/ mm3 06/29 11:58 AM EDT [email or web address] [email or web address] LABOR ATORY Not Available Not Available 09/01/2024 16:25:56 06/30/1906/29/2024 CBC W Diffe renti al panel , metho d unspe cifie d - Blood neutrophils/ leukocytes in blood by automated count 75.9 % low: 42.7%h igh: 76% Neutr ophil % 75.9 42.7 - 76.0 % 06/29 11:58 AM EDT [employer] LABOR ATORY Not Available Not Available 09/01/2024 16:25:56 06/30/19 25 06/29/2024 CBC W Diffe renti al panel , metho d unspe cifie d - Blood lymphocytes/ leukocytes in blood by automated count 14.2 % low: 19.6%h igh: 45.3% low Lymph ocyte % 14.2 (L) 19.6 - 45.3 % 06/29 11:58 AM EDT [facility] LABOR ATORY Not Available Not Available 09/01/2024 16:25:56 06/30/19 25 06/29/2024 CBC W Diffe renti al panel , metho d unspe cifie d - Blood monocytes/le ukocytes in blood by automated count 6.1 % low: 5%high : 12% Monoc yte % 6.1 5.0 - 12.0 % 06/29 11:58 AM EDT [facility] [employer] [facility] [email or web address] [facility] Not Available Not Available 09/01/2024 16:25:56 06/30/19 25 06/29/2024 CBC W Diffe renti al panel , metho d unspe cifie d - Blood eosinophils/ leukocytes in blood by automated count 3.1 % low: 0.3%hi gh: 6.2% Eosin ophil % 3.1 0.3 - 6.2 % 06/29 11:58 AM EDT [facility] [employer] [facility] [email or web address] [facility] Not Available Not Available 09/01/2024 16:25:56 06/30/19 25 06/29/2024 CBC W Diffe renti al panel , metho d unspe cifie d - Blood basophils/le ukocytes in blood by automated count 0.3 % low: 0%high : 1.5% Basop hil % 0.3 0.0 - 1.5 % 06/29 11:58 AM EDT [facility] [employer] [facility] [email or web address] [facility] Not Available Not Available 09/01/2024 16:25:56 06/30/19 25 06/29/2024 CBC W Diffe renti al panel , metho d unspe cifie d - Blood immature granulocytes /leukocytes in blood by automated count 0.4 % low: 0%high : 0.5% Immat ure Grans % 0.4 0.0 - 0.5 % 06/29 11:58 AM EDT [facility] [email or web address] [facility] Not Available Not Available 09/01/2024 16:25:56 06/30/19 25 06/29/2024 CBC W Diffe renti al panel , metho d unspe cifie d - Blood neutrophils/ leukocytes in blood by automated count 7.86 10*3/ mm3 low: 1.710* 3/mm3h igh: 710*3/ mm3 high Neutr ophil s, Absol [place] 7.86 (H) 1.70 - 7.00 10*3/ mm3 06/29 11:58 AM EDT [employer] [facility] [employer] [facility] [email or web address] [facility] Not Available Not Available 09/01/2024 16:25:56 06/30/19 25 06/29/2024 CBC W Diffe renti al panel , metho d unspe cifie d - Blood lymphocytes [#/volume] in blood by automated count 1.47 10*3/ mm3 low: 0.710* 3/mm3h igh: 3.110* 3/mm3 Lymph ocyte s, [place]ol [place] 1.47 0.70 - 3.10 10*3/ mm3 06/29 11:58 AM EDT [email or web address] LABOR ATORY Not Available Not Available 09/01/2024 16:25:56 06/30/19 25 06/29/2024 CBC W Diffe renti al panel , metho d unspe cifie d - Blood monocytes [#/volume] in blood by automated count 0.63 10*3/ mm3 low: 0.110* 3/mm3h igh: 0.910* 3/mm3 Monoc ytes, Absol [place] 0.63 0.10 - 0.90 10*3/ mm3 06/29 11:58 AM EDT [facility] H [email or web address] LABOR ATORY Not Available Not Available 09/01/2024 16:25:56 06/30/19 25 06/29/2024 CBC W Diffe renti al panel , metho d unspe cifie d - Blood eosinophils [#/volume] in blood by automated count 0.32 10*3/ mm3 low: 010*3/ mm3hig h: 0.410* 3/mm3 Eosin ophil s, Absol [place] 0.32 0.00 - 0.40 10*3/ mm3 06/29 11:58 AM EDT [employer] H [email or web address] LABOR ATORY Not Available Not Available 09/01/2024 16:25:56 03/19/06/29/2024 CBC W Diffe renti al panel , metho d unspe cifie d - Blood basophils [#/volume] in blood by automated count 0.03 10*3/ mm3 low: 010*3/ mm3hig h: 0.210* 3/mm3 Basop hils, Absol [place] 0.03 0.00 - 0.20 10*3/ mm3 06/29 11:58 AM EDT [employer] [facility] [email or web address] LABOR ATORY Not Available Not Available 09/01/2024 16:25:56 06/30/19 25 06/29/2024 CBC W Diffe renti al panel , metho d unspe cifie d - Blood immature granulocytes [#/volume] in blood by automated count 0.04 10*3/ mm3 low: 010*3/ mm3hig h: 0.0510 *3/mm3 Immat ure Grans , Absol [place] 0.04 0.00 - 0.05 10*3/ mm3 06/29 11:58 AM EDT [employer] H [email or web address] LABOR ATORY Not Available Not Available 09/01/2024 16:25:56 06/30/19 25 06/29/2024 CBC W Diffe renti al panel , metho d unspe cifie d - Blood nucleated erythrocytes /leukocytes [ratio] in blood by automated count 0 text: 0.0 - 0.2 /100 WBC nRBC 0.0 0.0 - 0.2 /100 WBC 06/29 11:58 AM EDT [employer] AppsT [employer] ATORY Not Available Not Available 09/01/2024 16:25:56 [...] mg/dL 06/30 7:[address] [facility] [...] mg/dL 06/30 11:[address] [facility] [...] - 130 mg/dL 06/30 7:[address] [facility] stickKIN [place] [facility] Not Available Not Available [...] - 130 mg/dL 06/30 3:[address] [facility] [place] [facility] Not Available Not Available [...] - 200 U/L 06/30 4:[address] [facility] [...] - 2.4 mg/dL 06/30 4:[address] [facility] stickKIN Powa [employer]ON LABOR ATORY Not Available Not Available 09/01/2024 [...] mg/dL low: 0mg/dL high: 0.5mg/ dL high C-Gisela ctive Prote in 5.76 (H) 0.00 - 0.50 mg/dL 06/30 4:[address] [facility] Not Available Not Available 09/01/2024 16:25:57 07/01/19 25 06/30/2024 C react minh prote in [Mass /volu me] in Serum or Plasm a interpretati on and review of laboratory results Abnorm al Not Available Not Available 16:25:57 07/01/1906/30/2024 CBC panel - Blood by Autom ated count leukocytes [#/volume] corrected for nucleated erythrocytes in blood by automated count 7.57 10*3/ mm3 low: 3.410* 3/mm3h igh: 10.810 *3/mm3 WBC 7.57 3.40 - 10.80 10*3/ mm3 06/30 4:35 AM EDT [facility] ATORY Not Available Not Available 09/01/2024 16:25:57 07/01/19 25 06/30/2024 CBC panel - Blood by Autom ated count erythrocytes [#/volume] in blood by automated count 4.28 10*6/ mm3 low: 4.1410 *6/mm3 high: 5.810* 6/mm3 RBC 4.28 4.14 - 5.80 10*6/ mm3 06/30 4:35 AM EDT [facility] ATORY Not Available Not Available 09/01/2024 16:25:57 07/01/19 25 06/30/2024 CBC panel - Blood by Autom ated count hemoglobin [mass/volume ] in blood 10.3 g/dL low: 13g/dL high: 17.7g/ dL low Hemog lobin 10.3 (L) 13.0 - 17.7 g/dL 06/30 4:35 AM EDT [facility] ATORY Not Available Not Available 09/01/2024 16:25:57 07/01/19 25 06/30/2024 CBC panel - Blood by Autom ated count hematocrit [volume fraction] of blood by automated count 35.3 % low: 37.5%h igh: 51% low Hemat ocrit 35.3 (L) 37.5 - 51.0 % 06/30 4:35 AM EDT [facility] LABOR ATORY Not Available Not Available 09/01/2024 16:25:57 07/01/19 25 06/30/2024 CBC panel - Blood by Autom ated count MCV [entitic mean volume] in red blood cells by automated count 82.5 fL low: 79fLhi gh: 97fL MCV 82.5 79.0 - 97.0 fL 06/30 4:35 AM EDT [facility] ATORY Not Available Not Available 09/01/2024 16:25:57 07/01/19 25 06/30/2024 CBC panel - Blood by Autom ated count MCH [entitic mass] by automated count 24.1 pg low: 26.6pg high: 33pg low MCH 24.1 (L) 26.6 - 33.0 pg 06/30 4:35 AM EDT [facility] ATORY Not Available Not Available 09/01/2024 16:25:57 07/01/19 25 06/30/2024 CBC panel - Blood by Autom ated count MCHC [entitic mass/volume] in red blood cells by automated count 29.2 g/dL low: 31.5g/ dLhigh : 35.7g/ dL low MCHC 29.2 (L) 31.5 - 35.7 g/dL 06/30 4:35 AM EDT [facility] ATORY Not Available Not Available 09/01/2024 16:25:57 07/01/19 25 06/30/2024 CBC panel - Blood by Autom ated count erythrocyte [distwidth] in red blood cells by automated count 17.6 % low: 12.3%h igh: 15.4% high RDW 17.6 (H) 12.3 - 15.4 % 06/30 4:35 AM EDT [facility] ATORY Not Available Not Available 09/01/2024 16:25:57 07/01/19 25 06/30/2024 CBC panel - Blood by Autom ated count RDW-SD 52.4 fL low: 37fLhi gh: 54fL RDW-S D 52.4 37.0 - 54.0 fl 06/30 4:35 AM EDCRAiLAR ATORY Not Available Not Available 09/01/2024 16:25:57 07/01/19 25 06/30/2024 CBC panel - Blood by Autom ated count platelet [entitic mean volume] in blood by automated count 9.2 fL low: 6fLhig h: 12fL MPV 9.2 6.0 - 12.0 fL 06/30 4:35 AM EDT [employer] ATORY Not Available Not Available 09/01/2024 16:25:57 07/01/19 25 06/30/2024 CBC panel - Blood by Autom ated count platelets [#/volume] in blood by automated count 376 10*3/ mm3 low: 98639* 3/mm3h igh: 38860* 3/mm3 Plate lets 376 140 - 450 10*3/ mm3 06/30 4:35 AM EDT [employer] ATORY Not Available Not Available 09/01/2024 16:25:57 [...] - 99 mg/dL 06/30 4:47 AM EDT [employer] ATORY Not Available Not Available 09/01/2024 16:25:57 07/01/19 25 06/30/2024 Basic metab olic 2000 panel - Serum or Plasm a urea nitrogen [mass/volume ] in serum or plasma 31 mg/dL low: 8mg/dL high: 23mg/d L high BUN 31 (H) 8 - 23 mg/dL 06/30 4:47 AM EDT [employer] ATORY Not Available Not Available 09/01/2024 16:25:57 07/01/19 25 06/30/2024 Basic metab olic 2000 panel - Serum or Plasm a creatinine [mass/volume ] in serum or plasma 1.16 mg/dL low: 0.76mg /dLhig h: 1.27mg /dL Creat inine 1.16 0.76 - 1.27 mg/dL 06/30 4:47 AM EDT [employer] [facility] stickKIN [employer]ON LABOR ATORY Not Available Not Available 09/01/2024 16:25:57 07/01/19 25 06/30/2024 Basic metab olic 1999 panel - Serum or Plasm a sodium [moles/volum e] in serum or plasma 136 mmol/ L low: 136mmo l/Lhig h: 145mmo l/L Sodiu m 136 136 - 145 mmol/ L 06/30 4:47 AM EDT [employer] [facility] stickKIN [employer] LABOR ATORY Not Available Not Available 09/01/2024 16:25:57 07/01/19 25 06/30/2024 Basic metab olic 1999 panel - Serum or Plasm a potassium [moles/volum e] in serum or plasma 4.7 mmol/ L low: 3.5mmo l/Lhig h: 5.2mmo l/L Potas sium 4.7 3.5 - 5.2 mmol/ L 06/30 4:47 AM EDT [facility] [email or web address] LABOR ATORY Not Available Not Available 09/01/2024 16:25:57 07/01/19 25 06/30/2024 Basic metab olic 1999 panel - Serum or Plasm a chloride [moles/volum e] in serum or plasma 96 mmol/ L low: 98mmol /Lhigh : 107mmo l/L low Chlor chava 96 (L) 98 - 107 mmol/ L 06/30 4:47 AM EDT [facility] stickKIN [employer]ON LABOR ATORY Not Available Not Available 09/01/2024 16:25:57 07/01/19 25 06/30/2024 Basic metab olic 1999 panel - Serum or Plasm a carbon dioxide, total [moles/volum e] in serum or plasma 30 mmol/ L low: 22mmol /Lhigh : 29mmol /L high CO2 30.0 (H) 22.0 - 29.0 mmol/ L 06/30 4:47 AM EDT [employer] Cloud AppsT H LEXIN [facility] LABOR ATORY Not Available Not Available 09/01/2024 16:25:57 07/01/19 25 06/30/2024 Basic metab olic 1999 panel - Serum or Plasm a calcium [moles/volum e] in specimen 9.1 mg/dL low: 8.6mg/ dLhigh : 10.5mg /dL Calci um 9.1 8.6 - 10.5 mg/dL 06/30 4:47 AM EDT [facility] Etacts ATORY Not Available Not Available 09/01/2024 16:25:57 07/01/19 25 06/30/2024 Basic metab olic 1999 panel - Serum or Plasm a urea nitrogen/cre atinine [mass ratio] in serum or plasma 26.7 low: 7high: 25 high BUN/C reati nine Ratio 26.7 (H) 7.0 - 25.0 06/30 4:47 AM EDT [employer] [facility] Etacts ATORY Not Available Not Available 09/01/2024 16:25:57 07/01/19 25 06/30/2024 Basic metab olic 2000 panel - Serum or Plasm a anion gap in serum or plasma by calculated.3 ions 10 mmol/ L low: 5mmol/ Lhigh: 15mmol /L Anion Gap 10.0 5.0 - 15.0 mmol/ L 06/30 4:47 AM EDT [facility] Etacts ATORY Not Available Not Available 09/01/2024 16:25:57 07/01/19 25 06/30/2024 Basic metab olic 2000 panel - Serum or Plasm a glomerular filtration rate [volume rate/area] in serum, plasma or blood by creatinine-b ased formula (CKD-epi 2020)/1.73 sq M 70.8 mL/mi n/1.7 3 low: 60mL/m in/1.7 3 eGFR 70.8 >60.0 mL/mi n/1.7 3 06/30 4:47 AM EDT [facility] Etacts ATORY Not Available Not Available 09/01/2024 16:25:57 [...] - 130 mg/dL 07/01 7:16 PM EDT [facility] stickKIN [employer]ON LABOR ATORY Not Available Not Available 09/01/2024 [...] - 130 mg/dL 07/01 4:23 PM EDT [facility] stickKIN [employer]ON LABOR ATORY Not Available Not Available 09/01/2024 [...] - 130 mg/dL 07/01 11:04 AM EDT [employer] [facility] MediaT H [email or web address] LABOR ATORY Not Available Not Available 09/01/2024 [...] - 130 mg/dL 07/01 6:42 AM EDT [facility] LABOR ATORY Not Available Not Available 09/01/2024 [...] 10.80 10*3/ mm3 07/01 4:54 AM EDT [employer] Cloud [employer] LABOR ATORY Not Available Not Available 09/01/2024 16:25:57 07/02/19 25 07/01/2024 CBC panel - Blood by Autom ated count erythrocytes [#/volume] in blood by automated count 4.48 10*6/ mm3 low: 4.1410 *6/mm3 high: 5.810* 6/mm3 RBC 4.48 4.14 - 5.80 10*6/ mm3 07/01 4:54 AM [facility] Not Available Not Available 09/01/2024 16:25:57 07/02/19 25 07/01/2024 CBC panel - Blood by Autom ated count hemoglobin [mass/volume ] in blood 10.7 g/dL low: 13g/dL high: 17.7g/ dL low Hemog lobin 10.7 (L) 13.0 - 17.7 g/dL 07/01 4:54 AM EDT [facility] Not Available Not Available 09/01/2024 16:25:57 07/02/1907/01/2024 CBC panel - Blood by Autom ated count hematocrit [volume fraction] of blood by automated count 37 % low: 37.5%h igh: 51% low Hemat ocrit 37.0 (L) 37.5 - 51.0 % 07/01 4:54 AM EDT [facility] Not Available Not Available 09/01/2024 16:25:57 07/02/19 25 07/01/2024 CBC panel - Blood by Autom ated count MCV [entitic mean volume] in red blood cells by automated count 82.6 fL low: 79fLhi gh: 97fL MCV 82.6 79.0 - 97.0 fL 07/01 4:54 AM EDT [facility] Not Available Not Available 09/01/2024 16:25:57 07/02/19 25 07/01/2024 CBC panel - Blood by Autom ated count MCH [entitic mass] by automated count 23.9 pg low: 26.6pg high: 33pg low MCH 23.9 (L) 26.6 - 33.0 pg 07/01 4:54 AM EDT [facility] Not Available Not Available 09/01/2024 16:25:57 07/02/19 25 07/01/2024 CBC panel - Blood by Autom ated count MCHC [entitic mass/volume] in red blood cells by automated count 28.9 g/dL low: 31.5g/ dLhigh : 35.7g/ dL low MCHC 28.9 (L) 31.5 - 35.7 g/dL 07/01 4:54 AM EDT [employer] ATORY Not Available Not Available 09/01/2024 16:25:57 07/02/19 25 07/01/2024 CBC panel - Blood by Autom ated count erythrocyte [distwidth] in red blood cells by automated count 17.4 % low: 12.3%h igh: 15.4% high RDW 17.4 (H) 12.3 - 15.4 % 07/01 4:54 AM EDT [employer] [facility] Etacts ATORY Not Available Not Available 09/01/2024 16:25:57 07/02/19 25 07/01/2024 CBC panel - Blood by Autom ated count RDW-SD 52.5 fL low: 37fLhi gh: 54fL RDW-S D 52.5 37.0 - 54.0 fl 07/01 4:54 AM EDT [employer] [facility] Im[employer]Rx ATORY Not Available Not Available 09/01/2024 16:25:57 07/02/1907/01/2024 CBC panel - Blood by Autom ated count platelet [entitic mean volume] in blood by automated count 9.6 fL low: 6fLhig h: 12fL MPV 9.6 6.0 - 12.0 fL 07/01 4:54 AM EDT [employer] [facility] [employer] ATORY Not Available Not Available 09/01/2024 16:25:57 07/02/19 25 07/01/2024 CBC panel - Blood by Autom ated count platelets [#/volume] in blood by automated count 414 10*3/ mm3 low: 49393* 3/mm3h igh: 25548* 3/mm3 Plate lets 414 140 - 450 10*3/ mm3 07/01 4:54 AM EDT [employer] ATORY Not Available Not Available 09/01/2024 16:25:57 03/21/07/01/2024 CBC panel - Blood by Autom ated count interpretati on and review of laboratory results Abnorm al Not Available Not Available 16:25:57 07/02/19 25 07/01/2024 Basic metab olic 1999 panel - Serum or Plasm a glucose [mass/volume ] in serum or plasma 283 mg/dL low: 65mg/d Lhigh: 99mg/d L high Gluco se 283 (H) 65 - 99 mg/dL 07/01 4:58 AM EDT [employer] Cloud AppsT H stickKIN [employer]ON LABOR ATORY Not Available Not Available 09/01/2024 16:25:57 07/02/19 25 07/01/2024 Basic metab olic 1999 panel - Serum or Plasm a urea nitrogen [mass/volume ] in serum or plasma 28 mg/dL low: 8mg/dL high: 23mg/d L high BUN 28 (H) 8 - 23 mg/dL 07/01 4:58 AM EDT [facility] LABOR ATORY Not Available Not Available 09/01/2024 16:25:57 07/02/19 25 07/01/2024 Basic metab olic 1999 panel - Serum or Plasm a creatinine [mass/volume ] in serum or plasma 1.19 mg/dL low: 0.76mg /dLhig h: 1.27mg /dL Creat inine 1.19 0.76 - 1.27 mg/dL 07/01 4:58 AM EDT [facility] LABOR ATORY Not Available Not Available 09/01/2024 16:25:57 07/02/19 25 07/01/2024 Basic metab olic 1999 panel - Serum or Plasm a sodium [moles/volum e] in serum or plasma 136 mmol/ L low: 136mmo l/Lhig h: 145mmo l/L Sodiu m 136 136 - 145 mmol/ L 07/01 4:58 AM EDT [employer]anning Cloud AppsT [employer]IN Powa TechnologiesON LABOR ATORY Not Available Not Available 09/01/2024 16:25:57 07/02/19 25 07/01/2024 Basic metab olic 1999 panel - Serum or Plasm a potassium [moles/volum e] in serum or plasma 4.6 mmol/ L low: 3.5mmo l/Lhig h: 5.2mmo l/L Potas sium 4.6 3.5 - 5.2 mmol/ L 07/01 4:58 AM EDT [employer] LABOR ATORY Not Available Not Available 09/01/2024 16:25:57 07/02/19 25 07/01/2024 Basic metab olic 1999 panel - Serum or Plasm a chloride [moles/volum e] in serum or plasma 95 mmol/ L low: 98mmol /Lhigh : 107mmo l/L low Chlor chava 95 (L) 98 - 107 mmol/ L 07/01 4:58 AM EDT [employer] LABOR ATORY Not Available Not Available 09/01/2024 16:25:57 07/02/19 25 07/01/2024 Basic metab olic 1999 panel - Serum or Plasm a carbon dioxide, total [moles/volum e] in serum or plasma 28 mmol/ L low: 22mmol /Lhigh : 29mmol /L CO2 28.0 22.0 - 29.0 mmol/ L 07/01 4:58 AM EDT [employer] LABOR ATORY Not Available Not Available 09/01/2024 16:25:57 07/02/19 25 07/01/2024 Basic metab olic 2000 panel - Serum or Plasm a calcium [moles/volum e] in specimen 9.2 mg/dL low: 8.6mg/ dLhigh : 10.5mg /dL Calci um 9.2 8.6 - 10.5 mg/dL 07/01 4:58 AM EDT [employer] LABOR ATORY Not Available Not Available 09/01/2024 16:25:57 07/02/19 25 07/01/2024 Basic metab olic 1999 panel - Serum or Plasm a urea nitrogen/cre atinine [mass ratio] in serum or plasma 23.5 low: 7high: 25 BUN/C reati nine Ratio 23.5 7.0 - 25.0 07/01 4:58 AM EDT [facility] LABOR ATORY Not Available Not Available 09/01/2024 16:25:57 07/02/19 25 07/01/2024 Basic metab olic 2000 panel - Serum or Plasm a anion gap in serum or plasma by calculated.3 ions 13 mmol/ L low: 5mmol/ Lhigh: 15mmol /L Anion Gap 13.0 5.0 - 15.0 mmol/ L 07/01 4:[address] [facility] [employer]IN [employer] ATORY Not Available Not Available 09/01/2024 16:25:57 07/02/19 25 07/01/2024 Basic metab olic 1999 panel - Serum or Plasm a glomerular filtration rate [volume rate/area] in serum, plasma or blood by creatinine-b ased formula (CKD-epi 2020)/1.73 sq M 68.6 mL/mi n/1.7 3 low: 60mL/m in/1.7 3 eGFR 68.6 >60.0 mL/mi n/1.7 3 07/01 4:[address] [facility] MediaT H stickKIN [employer] ATORY Not Available Not Available 09/01/2024 16:25:57 [...] G1 or G2 fulfi ll the crite betahny for CKD. eGFR calcu latio n 2020 [...] - 130 mg/dL 07/02 4:16 PM EDT [facility] LEXIN [facility] LABOR ATORY Not Available [...] - 130 mg/dL 07/02 1:55 PM EDT [facility] stickKIN [facility] LABOR ATORY Not Available Not Available [...] - 130 mg/dL 07/02 8:51 AM EDT [facility] L[facility]IN [facility] LABOR ATORY Not Available [...] - 130 mg/dL 07/02 6:43 AM EDT [facility] ATORY Not Available Not Available 09/01/2024 16:25:58 07/03/19 25 07/02/2024 Basic metab olic 2000 panel - Serum or Plasm a interpretati on and review of laboratory results Abnorm al Not Available Not Available 16:25:58 07/03/19 25 07/02/2024 CBC panel - Blood by Autom ated count leukocytes [#/volume] corrected for nucleated erythrocytes in blood by automated count 10.34 10*3/ mm3 low: 3.410* 3/mm3h igh: 10.810 *3/mm3 WBC 10.34 3.40 - 10.80 10*3/ mm3 07/02 6:23 AM EDT [facility] ATORY Not Available Not Available 09/01/2024 16:25:58 07/03/19 25 07/02/2024 CBC panel - Blood by Autom ated count erythrocytes [#/volume] in blood by automated count 4.64 10*6/ mm3 low: 4.1410 *6/mm3 high: 5.810* 6/mm3 RBC 4.64 4.14 - 5.80 10*6/ mm3 07/02 6:23 AM EDT [facility] ATORY Not Available Not Available 09/01/2024 16:25:58 07/03/1907/02/2024 CBC panel - Blood by Autom ated count hemoglobin [mass/volume ] in blood 11.5 g/dL low: 13g/dL high: 17.7g/ dL low Hemog lobin 11.5 (L) 13.0 - 17.7 g/dL 07/02 6:23 AM EDT [facility] ATORY Not Available Not Available 09/01/2024 16:25:58 07/03/19 25 07/02/2024 CBC panel - Blood by Autom ated count hematocrit [volume fraction] of blood by automated count 37.7 % low: 37.5%h igh: 51% Hemat ocrit 37.7 37.5 - 51.0 % 07/02 6:23 AM ED[facility] Not Available Not Available 09/01/2024 16:25:58 07/03/19 25 07/02/2024 CBC panel - Blood by Autom ated count MCV [entitic mean volume] in red blood cells by automated count 81.3 fL low: 79fLhi gh: 97fL MCV 81.3 79.0 - 97.0 fL 07/02 6:23 AM EDT [facility] Etacts ATORY Not Available Not Available 09/01/2024 16:25:58 07/03/19 25 07/02/2024 CBC panel - Blood by Autom ated count MCH [entitic mass] by automated count 24.8 pg low: 26.6pg high: 33pg low MCH 24.8 (L) 26.6 - 33.0 pg 07/02 6:23 AM EDT [facility] [employer]acts ATORY Not Available Not Available 09/01/2024 16:25:58 07/03/19 25 07/02/2024 CBC panel - Blood by Autom ated count MCHC [entitic mass/volume] in red blood cells by automated count 30.5 g/dL low: 31.5g/ dLhigh : 35.7g/ dL low MCHC 30.5 (L) 31.5 - 35.7 g/dL 07/02 6:23 AM EDT [facility] [employer]acts ATORY Not Available Not Available 09/01/2024 16:25:58 07/03/19 25 07/02/2024 CBC panel - Blood by Autom ated count erythrocyte [distwidth] in red blood cells by automated count 17.5 % low: 12.3%h igh: 15.4% high RDW 17.5 (H) 12.3 - 15.4 % 07/02 6:23 AM EDT [employer] [facility] Etacts ATORY Not Available Not Available 09/01/2024 16:25:58 07/03/19 25 07/02/2024 CBC panel - Blood by Autom ated count RDW-SD 50.9 fL low: 37fLhi gh: 54fL RDW-S D 50.9 37.0 - 54.0 fl 07/02 6:23 AM EDT [employer] ATORY Not Available Not Available 09/01/2024 16:25:58 07/03/19 25 07/02/2024 CBC panel - Blood by Autom ated count platelet [entitic mean volume] in blood by automated count 9.2 fL low: 6fLhig h: 12fL MPV 9.2 6.0 - 12.0 fL 07/02 6:23 AM EDT [facility] ATORY Not Available Not Available 09/01/2024 16:25:58 07/03/19 25 07/02/2024 CBC panel - Blood by Autom ated count platelets [#/volume] in blood by automated count 442 10*3/ mm3 low: 24269* 3/mm3h igh: 89715* 3/mm3 Plate lets 442 140 - 450 10*3/ mm3 07/02 6:23 AM EDT [facility] ATORY Not Available Not Available 09/01/2024 16:25:58 [...] - 99 mg/dL 07/02 7:40 AM EDT [facility] ATORY Not Available Not Available 09/01/2024 16:25:57 07/03/19 25 07/02/2024 Basic metab olic 2000 panel - Serum or Plasm a urea nitrogen [mass/volume ] in serum or plasma 26 mg/dL low: 8mg/dL high: 23mg/d L high BUN 26 (H) 8 - 23 mg/dL 07/02 7:40 AM EDT [facility] stickKIN [employer]ON LABOR ATORY Not Available Not Available 09/01/2024 16:25:57 07/03/19 25 07/02/2024 Basic metab olic 1999 panel - Serum or Plasm a creatinine [mass/volume ] in serum or plasma 1.11 mg/dL low: 0.76mg /dLhig h: 1.27mg /dL Creat inine 1.11 0.76 - 1.27 mg/dL 07/02 7:40 AM EDT [facility]IN [employer] LAB[facility] ATORY Not Available Not Available 09/01/2024 16:25:57 07/03/19 25 07/02/2024 Basic metab olic 1999 panel - Serum or Plasm a sodium [moles/volum e] in serum or plasma 139 mmol/ L low: 136mmo l/Lhig h: 145mmo l/L Sodiu m 139 136 - 145 mmol/ L 07/02 7:40 AM EDT [facility] [email or web address] [facility] AT[facility] Not Available Not Available 09/01/2024 16:25:57 07/03/19 25 07/02/2024 Basic metab olic 1999 panel - Serum or Plasm a potassium [moles/volum e] in serum or plasma 4.1 mmol/ L low: 3.5mmo l/Lhig h: 5.2mmo l/L Potas sium 4.1 3.5 - 5.2 mmol/ L 07/02 7:40 AM EDT [facility] [employer] LAB[facility] ATORY Not Available Not Available 09/01/2024 16:25:57 07/03/19 25 07/02/2024 Basic metab olic 1999 panel - Serum or Plasm a chloride [moles/volum e] in serum or plasma 96 mmol/ L low: 98mmol /Lhigh : 107mmo l/L low Chlor chava 96 (L) 98 - 107 mmol/ L 07/02 7:40 AM EDT [employer] [facility] [employer]KIN [employer] LABOR ATORY Not Available Not Available 09/01/2024 16:25:57 07/03/19 25 07/02/2024 Basic metab olic 1999 panel - Serum or Plasm a carbon dioxide, total [moles/volum e] in serum or plasma 24 mmol/ L low: 22mmol /Lhigh : 29mmol /L CO2 24.0 22.0 - 29.0 mmol/ L 07/02 7:40 AM EDT [facility] Not Available Not Available 09/01/2024 16:25:57 07/03/19 25 07/02/2024 Basic metab olic 1999 panel - Serum or Plasm a calcium [moles/volum e] in specimen 9.2 mg/dL low: 8.6mg/ dLhigh : 10.5mg /dL Calci um 9.2 8.6 - 10.5 mg/dL 07/02 7:40 AM EDT [facility] Not Available Not Available 09/01/2024 16:25:57 07/03/19 25 07/02/2024 Basic metab olic 1999 panel - Serum or Plasm a urea nitrogen/cre atinine [mass ratio] in serum or plasma 23.4 low: 7high: 25 BUN/C reati nine Ratio 23.4 7.0 - 25.0 07/02 7:40 AM EDT [facility] Not Available Not Available 09/01/2024 16:25:57 07/03/19 25 07/02/2024 Basic metab olic 1999 panel - Serum or Plasm a anion gap in serum or plasma by calculated.3 ions 19 mmol/ L low: 5mmol/ Lhigh: 15mmol /L high Anion Gap 19.0 (H) 5.0 - 15.0 mmol/ L 07/02 7:40 AM EDT [facility] Not Available Not Available 09/01/2024 16:25:57 [...] - 130 mg/dL 07/03 10:30 PM EDT [facility] [employer] [facility] Not Available Not Available 09/01/2024 [...] - 130 mg/dL 07/03 8:11 PM EDT [facility] [email or web address] [facility] Not Available Not Available 09/01/2024 [...] - 130 mg/dL 07/03 5:39 PM EDT [facility] [email or web address] [facility] Not Available Not Available 09/01/2024 [...] - 130 mg/dL 07/03 12:22 PM EDT [facility] [employer] [place] [facility] Not Available Not Available [...] - 130 mg/dL 07/03 8:30 AM EDT [facility] [employer] [place] [facility] Not Available Not Available [...] - 130 mg/dL 07/03 7:07 AM EDT [facility] [employer] [facility] Not Available Not Available 09/01/2024 [...] 11.21 (H) 3.40 - 10.80 10*3/ mm3 03/23 /2025 5:55 AM EDT [facility] Not Available Not Available 09/01/2024 16:25:58 07/04/1907/03/2024 CBC panel - Blood by Autom ated count erythrocytes [#/volume] in blood by automated count 4.71 10*6/ mm3 low: 4.1410 *6/mm3 high: 5.810* 6/mm3 RBC 4.71 4.14 - 5.80 10*6/ mm3 07/03 5:55 AM EDT [facility] Not Available Not Available 09/01/2024 16:25:58 07/04/1907/03/2024 CBC panel - Blood by Autom ated count hemoglobin [mass/volume ] in blood 11.5 g/dL low: 13g/dL high: 17.7g/ dL low Hemog lobin 11.5 (L) 13.0 - 17.7 g/dL 07/03 5:55 AM EDT [facility] Not Available Not Available 09/01/2024 16:25:58 07/04/19 25 07/03/2024 CBC panel - Blood by Autom ated count hematocrit [volume fraction] of blood by automated count 40 % low: 37.5%h igh: 51% Hemat ocrit 40.0 37.5 - 51.0 % 07/03 5:55 AM EDCRAiLAR ATORY Not Available Not Available 09/01/2024 16:25:58 07/04/1907/03/2024 CBC panel - Blood by Autom ated count MCV [entitic mean volume] in red blood cells by automated count 84.9 fL low: 79fLhi gh: 97fL MCV 84.9 79.0 - 97.0 fL 07/03 5:55 AM EDCRAiLAR ATORY Not Available Not Available 09/01/2024 16:25:58 07/04/19 25 07/03/2024 CBC panel - Blood by Autom ated count MCH [entitic mass] by automated count 24.4 pg low: 26.6pg high: 33pg low MCH 24.4 (L) 26.6 - 33.0 pg 07/03 5:55 AM EDT [facility] Not Available Not Available 09/01/2024 16:25:58 07/04/19 25 07/03/2024 CBC panel - Blood by Autom ated count MCHC [entitic mass/volume] in red blood cells by automated count 28.8 g/dL low: 31.5g/ dLhigh : 35.7g/ dL low MCHC 28.8 (L) 31.5 - 35.7 g/dL 07/03 5:55 AM EDT [facility] Not Available Not Available 09/01/2024 16:25:58 07/04/1907/03/2024 CBC panel - Blood by Autom ated count erythrocyte [distwidth] in red blood cells by automated count 17.7 % low: 12.3%h igh: 15.4% high RDW 17.7 (H) 12.3 - 15.4 % 07/03 5:55 AM EDT [facility] Not Available Not Available 09/01/2024 16:25:58 07/04/1907/03/2024 CBC panel - Blood by Autom ated count RDW-SD 53.3 fL low: 37fLhi gh: 54fL RDW-S D 53.3 37.0 - 54.0 fl 07/03 5:55 AM EDT [facility] Not Available Not Available 09/01/2024 16:25:58 07/04/1907/03/2024 CBC panel - Blood by Autom ated count platelet [entitic mean volume] in blood by automated count 9.3 fL low: 6fLhig h: 12fL MPV 9.3 6.0 - 12.0 fL 07/03 5:55 AM EDT [facility] Not Available Not Available 09/01/2024 16:25:58 07/04/19 25 07/03/2024 CBC panel - Blood by Autom ated count platelets [#/volume] in blood by automated count 409 10*3/ mm3 low: 45225* 3/mm3h igh: 96360* 3/mm3 Plate lets 409 140 - 450 10*3/ mm3 07/03 5:55 AM EDT [facility] Not Available Not Available 09/01/2024 16:25:58 [...] - 99 mg/dL 07/03 7:11 AM EDT [facility] Not Available Not Available 09/01/2024 16:25:58 07/04/19 25 07/03/2024 Basic metab olic 1999 panel - Serum or Plasm a urea nitrogen [mass/volume ] in serum or plasma 24 mg/dL low: 8mg/dL high: 23mg/d L high BUN 24 (H) 8 - 23 mg/dL 07/03 7:11 AM EDT [facility] Not Available Not Available 09/01/2024 16:25:58 07/04/19 25 07/03/2024 Basic metab olic 1999 panel - Serum or Plasm a creatinine [mass/volume ] in serum or plasma 1.04 mg/dL low: 0.76mg /dLhig h: 1.27mg /dL Creat inine 1.04 0.76 - 1.27 mg/dL 07/03 7:11 AM EDT [facility] Not Available Not Available 09/01/2024 16:25:58 07/04/19 25 07/03/2024 Basic metab olic 2000 panel - Serum or Plasm a sodium [moles/volum e] in serum or plasma 133 mmol/ L low: 136mmo l/Lhig h: 145mmo l/L low Sodiu m 133 (L) 136 - 145 mmol/ L 07/03 7:11 AM EDT [employer] [facility] stickKIN [employer] TechnologiesON [facility] ATORY Not Available Not Available 09/01/2024 16:25:58 07/04/19 25 07/03/2024 Basic metab olic 1999 panel - Serum or Plasm a potassium [moles/volum e] in serum or plasma 4.9 mmol/ L low: 3.5mmo l/Lhig h: 5.2mmo l/L Potas sium 4.9 3.5 - 5.2 mmol/ L 07/03 7:11 AM EDT [facility] stickKIN [employer] TechnologiesON LABOR ATORY Not Available Not Available 09/01/2024 16:25:58 07/04/19 25 07/03/2024 Basic metab olic 1999 panel - Serum or Plasm a chloride [moles/volum e] in serum or plasma 92 mmol/ L low: 98mmol /Lhigh : 107mmo l/L low Chlor chava 92 (L) 98 - 107 mmol/ L 07/03 7:11 AM EDT [employer] [facility] stickKIN Powa TechnologiesON LABOR ATORY Not Available Not Available 09/01/2024 16:25:58 07/04/1907/03/2024 Basic metab olic 1999 panel - Serum or Plasm a carbon dioxide, total [moles/volum e] in serum or plasma 21 mmol/ L low: 22mmol /Lhigh : 29mmol /L low CO2 21.0 (L) 22.0 - 29.0 mmol/ L 07/03 7:11 AM EDT [employer] [facility] stickKIN [employer] LAB[facility] AT[facility] Not Available Not Available 09/01/2024 16:25:58 07/04/19 25 07/03/2024 Basic metab olic 1999 panel - Serum or Plasm a calcium [moles/volum e] in specimen 9.2 mg/dL low: 8.6mg/ dLhigh : 10.5mg /dL Calci um 9.2 8.6 - 10.5 mg/dL 07/03 7:11 AM EDT [facility] stickKIN [employer] TechnologiesON LABOR ATORY Not Available Not Available 09/01/2024 16:25:58 07/04/19 25 07/03/2024 Basic metab olic 1999 panel - Serum or Plasm a urea nitrogen/cre atinine [mass ratio] in serum or plasma 23.1 low: 7high: 25 BUN/C reati nine Ratio 23.1 7.0 - 25.0 07/03 7:11 AM EDT [employer] ATORY Not Available Not Available 09/01/2024 16:25:58 07/04/19 25 07/03/2024 Basic [email or web address] olic 1999 panel - Serum or Plasm a anion gap in serum or plasma by calculated.3 ions 20 mmol/ L low: 5mmol/ Lhigh: 15mmol /L high Anion Gap 20.0 (H) 5.0 - 15.0 mmol/ L 07/03 7:11 AM EDT [employer] [facility] Not Available Not Available 09/01/2024 16:25:58 07/04/19 25 07/03/2024 Basic metab olic 1999 panel - Serum or Plasm a glomerular filtration rate [volume rate/area] in serum, plasma or blood by creatinine-b ased formula (CKD-epi 2020)/1.73 sq M 80.7 mL/mi n/1.7 3 low: 60mL/m in/1.7 3 eGFR 80.7 >60.0 mL/mi n/1.7 3 07/03 7:11 AM EDT [facility] Not Available Not Available 09/01/2024 16:25:58 07/04/19 25 07/03/2024 Basic [email or web address] olic 1999 panel - Serum or Plasm [...] - 130 mg/dL 07/04 7:39 PM EDT [employer] Cloud AppsT H stickKIN [employer] TechnologiesON LABOR ATORY Not Available Not Available 09/01/2024 [...] - 130 mg/dL 07/04 5:29 PM EDT [employer] AppsT H [employer]KIN [employer] LAB[facility] Not Available Not Available 09/01/2024 [...] - 130 mg/dL 07/04 12:28 PM EDT [facility] Not Available Not Available 09/01/2024 [...] - 130 mg/dL 07/04 7:34 AM EDT [employer] Cloud AppsT [facility] DiagnosticsIN Powa TechnologiesON LABOR ATORY Not Available Not Available 09/01/2024 [...] 10.80 10*3/ mm3 07/04 5:18 AM EDT [facility] Not Available Not Available 09/01/2024 16:25:59 07/05/19 25 07/04/2024 CBC panel - Blood by Autom ated count erythrocytes [#/volume] in blood by automated count 4.54 10*6/ mm3 low: 4.1410 *6/mm3 high: 5.810* 6/mm3 RBC 4.54 4.14 - 5.80 10*6/ mm3 07/04 5:18 AM EDT [facility] Not Available Not Available 09/01/2024 16:25:59 07/05/19 25 07/04/2024 CBC panel - Blood by Autom ated count hemoglobin [mass/volume ] in blood 11.1 g/dL low: 13g/dL high: 17.7g/ dL low Hemog lobin 11.1 (L) 13.0 - 17.7 g/dL 07/04 5:18 AM EDT [facility] Not Available Not Available 09/01/2024 16:25:59 07/05/19 25 07/04/2024 CBC panel - Blood by Autom ated count hematocrit [volume fraction] of blood by automated count 37.3 % low: 37.5%h igh: 51% low Hemat ocrit 37.3 (L) 37.5 - 51.0 % 07/04 5:18 AM EDT [facility] Not Available Not Available 09/01/2024 16:25:59 07/05/19 25 07/04/2024 CBC panel - Blood by Autom ated count MCV [entitic mean volume] in red blood cells by automated count 82.2 fL low: 79fLhi gh: 97fL MCV 82.2 79.0 - 97.0 fL 07/04 5:18 AM EDT [facility] Not Available Not Available 09/01/2024 16:25:59 07/05/19 25 07/04/2024 CBC panel - Blood by Autom ated count MCH [entitic mass] by automated count 24.4 pg low: 26.6pg high: 33pg low MCH 24.4 (L) 26.6 - 33.0 pg 07/04 5:18 AM EDT [facility] Not Available Not Available 09/01/2024 16:25:59 07/05/19 25 07/04/2024 CBC panel - Blood by Autom ated count MCHC [entitic mass/volume] in red blood cells by automated count 29.8 g/dL low: 31.5g/ dLhigh : 35.7g/ dL low MCHC 29.8 (L) 31.5 - 35.7 g/dL 07/04 5:18 AM EDT [facility] Not Available Not Available 09/01/2024 16:25:59 07/05/19 25 07/04/2024 CBC panel - Blood by Autom ated count erythrocyte [distwidth] in red blood cells by automated count 17.6 % low: 12.3%h igh: 15.4% high RDW 17.6 (H) 12.3 - 15.4 % 07/04 5:18 AM EDT [facility] Not Available Not Available 09/01/2024 16:25:59 07/05/19 25 07/04/2024 CBC panel - Blood by Autom ated count RDW-SD 51.4 fL low: 37fLhi gh: 54fL RDW-S D 51.4 37.0 - 54.0 fl 07/04 5:18 AM EDT SEJENT [employer] TechnologiesLILIAM 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 Not Available Not Available 09/01/2024 16:25:59 07/05/19 25 07/04/2024 CBC panel - Blood by Autom ated count platelet [entitic mean volume] in blood by automated count 8.8 fL low: 6fLhig h: 12fL MPV 8.8 6.0 - 12.0 fL 07/04 5:18 AM EDT [facility] stickKMIGNON [facility]LIL[facility] Not Available Not Available 09/01/2024 16:25:59 07/05/19 25 07/04/2024 CBC panel - Blood by Autom ated count platelets [#/volume] in blood by automated count 442 10*3/ mm3 low: 58542* 3/mm3h igh: 00433* 3/mm3 Plate lets 442 140 - 450 10*3/ mm3 07/04 5:18 AM EDT [facility] stickKMIGNON [facility] TechnologiesLIL[facility] Not Available Not Available 09/01/2024 16:25:59 [...] - 99 mg/dL 07/04 5:52 AM EDT [facility] stickKMIGNON [facility] TechnologiesL[facility] Not Available Not Available 09/01/2024 16:25:59 07/05/19 25 07/04/2024 Basic metab olic 2000 panel - Serum or Plasm a urea nitrogen [mass/volume ] in serum or plasma 22 mg/dL low: 8mg/dL high: 23mg/d L BUN 22 8 - 23 mg/dL 07/04 5:52 AM ED[facility]IGN[facility] [employer] TechnologiesLILIAM [facility] Not Available Not Available 09/01/2024 16:25:59 07/05/19 25 07/04/2024 Basic metab olic 2000 panel - Serum or Plasm a creatinine [mass/volume ] in serum or plasma 1.12 mg/dL low: 0.76mg /dLhig h: 1.27mg /dL Creat inine 1.12 0.76 - 1.27 mg/dL 07/04 5:52 AM EDT [facility] Not Available Not Available 09/01/2024 16:25:59 07/05/19 25 07/04/2024 Basic metab olic 1999 panel - Serum or Plasm a sodium [moles/volum e] in serum or plasma 133 mmol/ L low: 136mmo l/Lhig h: 145mmo l/L low Sodiu m 133 (L) 136 - 145 mmol/ L 07/04 5:52 AM EDT [facility] Not Available Not Available 09/01/2024 16:25:59 07/05/19 25 07/04/2024 Basic metab olic 1999 panel - Serum or Plasm a potassium [moles/volum e] in serum or plasma 4.4 mmol/ L low: 3.5mmo l/Lhig h: 5.2mmo l/L Potas sium 4.4 3.5 - 5.2 mmol/ L 07/04 5:52 AM EDT [facility] Not Available Not Available 09/01/2024 16:25:59 07/05/19 25 07/04/2024 Basic metab olic 1999 panel - Serum or Plasm a chloride [moles/volum e] in serum or plasma 93 mmol/ L low: 98mmol /Lhigh : 107mmo l/L low Chlor chava 93 (L) 98 - 107 mmol/ L 07/04 5:52 AM EDT [facility] Not Available Not Available 09/01/2024 16:25:59 07/05/19 25 07/04/2024 Basic metab olic 1999 panel - Serum or Plasm a carbon dioxide, total [moles/volum e] in serum or plasma 29 mmol/ L low: 22mmol /Lhigh : 29mmol /L CO2 29.0 22.0 - 29.0 mmol/ L 07/04 5:52 AM EDT [facility] Not Available Not Available 09/01/2024 16:25:59 07/05/1907/04/2024 Basic metab olic 2000 panel - Serum or Plasm a calcium [moles/volum e] in specimen 9.3 mg/dL low: 8.6mg/ dLhigh : 10.5mg /dL Calci um 9.3 8.6 - 10.5 mg/dL 07/04 5:52 AM EDT [facility] Not Available Not Available 09/01/2024 16:25:59 07/05/19 25 07/04/2024 Basic metab olic 1999 panel - Serum or Plasm a urea nitrogen/cre atinine [mass ratio] in serum or plasma 19.6 low: 7high: 25 BUN/C reati nine Ratio 19.6 7.0 - 25.0 07/04 5:52 AM EDT [facility] Not Available Not Available 09/01/2024 16:25:59 07/05/19 25 07/04/2024 Basic metab olic 1999 panel - Serum or Plasm a anion gap in serum or plasma by calculated.3 ions 11 mmol/ L low: 5mmol/ Lhigh: 15mmol /L Anion Gap 11.0 5.0 - 15.0 mmol/ L 07/04 5:52 AM EDT [facility] Not Available Not Available 09/01/2024 16:25:59 07/05/19 25 07/04/2024 Basic [email or web address] olic 2000 panel - Serum or Plasm a glomerular filtration rate [volume rate/area] in serum, plasma or blood by creatinine-b ased formula (CKD-epi 2020)/1.73 sq M 73.8 mL/mi n/1.7 3 low: 60mL/m in/1.7 3 eGFR 73.8 >60.0 mL/mi n/1.7 3 07/04 5:52 AM EDT [facility] Not Available Not Available 09/01/2024 16:25:59 [...] r Not Available Not Available 09/01/2024 16:25:59 07/05/19 [...] mg/dL 07/05 8:[address] [facility] [...] - 130 mg/dL 07/05 5:[address] [facility] [...] - 130 mg/dL 07/05 12:[address] [facility] [...] - 130 mg/dL 07/05 8:[address] [facility] Not Available Not Available 09/01/2024 16:25:59 07/06/1905 0707/05/2024 Basic metab olic 2000 panel - Serum or Plasm a interpretati on and review of laboratory results Abnorm al Not Available Not Available 16:25:59 07/06/1907/05/2024 Basic metab olic 2000 panel - Serum or Plasm a glucose [mass/volume ] in capillary blood by glucometer 242 mg/dL low: 70mg/d Lhigh: 130mg/ dL high Gluco se 242 (H) 70 - 130 mg/dL 07/05 7:38 AM EDT [facility] Not Available Not Available 09/01/2024 16:25:59 07/06/19 25 07/05/2024 Basic metab olic 2000 panel - Serum or Plasm a interpretati on and review of laboratory results Abnorm al Not Available Not Available 16:25:59 07/06/19 25 07/05/2024 CBC panel - Blood by Autom ated count leukocytes [#/volume] corrected for nucleated erythrocytes in blood by automated count 11.56 10*3/ mm3 low: 3.410* 3/mm3h igh: 10.810 *3/mm3 high WBC 11.56 (H) 3.40 - 10.80 10*3/ mm3 07/05 5:00 AM EDT [facility] Not Available Not Available 09/01/2024 16:25:59 07/06/19 25 07/05/2024 CBC panel - Blood by Autom ated count erythrocytes [#/volume] in blood by automated count 4.52 10*6/ mm3 low: 4.1410 *6/mm3 high: 5.810* 6/mm3 RBC 4.52 4.14 - 5.80 10*6/ mm3 07/05 5:00 AM EDT [facility] Not Available Not Available 09/01/2024 16:25:59 07/06/19 25 07/05/2024 CBC panel - Blood by Autom ated count hemoglobin [mass/volume ] in blood 11.2 g/dL low: 13g/dL high: 17.7g/ dL low Hemog lobin 11.2 (L) 13.0 - 17.7 g/dL 07/05 5:00 AM EDNexavis [employer] ATORY Not Available Not Available 09/01/2024 16:25:59 07/06/1907/05/2024 CBC panel - Blood by Autom ated count hematocrit [volume fraction] of blood by automated count 36.7 % low: 37.5%h igh: 51% low Hemat ocrit 36.7 (L) 37.5 - 51.0 % 07/05 5:00 AM [employer] ATORY Not Available Not Available 09/01/2024 16:25:59 07/06/1907/05/2024 CBC panel - Blood by Autom ated count MCV [entitic mean volume] in red blood cells by automated count 81.2 fL low: 79fLhi gh: 97fL MCV 81.2 79.0 - 97.0 fL 07/05 5:00 AM [employer] [facility] [employer] ATORY Not Available Not Available 09/01/2024 16:25:59 07/06/19 25 07/05/2024 CBC panel - Blood by Autom ated count MCH [entitic mass] by automated count 24.8 pg low: 26.6pg high: 33pg low MCH 24.8 (L) 26.6 - 33.0 pg 07/05 5:00 AM [employer] [facility] ATORY Not Available Not Available 09/01/2024 16:25:59 07/06/1907/05/2024 CBC panel - Blood by Autom ated count MCHC [entitic mass/volume] in red blood cells by automated count 30.5 g/dL low: 31.5g/ dLhigh : 35.7g/ dL low MCHC 30.5 (L) 31.5 - 35.7 g/dL 07/05 5:00 AM [employer] ATORY Not Available Not Available 09/01/2024 16:25:59 07/06/1907/05/2024 CBC panel - Blood by Autom ated count erythrocyte [distwidth] in red blood cells by automated count 18 % low: 12.3%h igh: 15.4% high RDW 18.0 (H) 12.3 - 15.4 % 07/05 5:00 AM EDT [employer] [facility] [employer] ATORY Not Available Not Available 09/01/2024 16:25:59 07/06/1907/05/2024 CBC panel - Blood by Autom ated count RDW-SD 50.7 fL low: 37fLhi gh: 54fL RDW-S D 50.7 37.0 - 54.0 fl 07/05 5:00 AM EDT [employer] [facility] [employer] ATORY Not Available Not Available 09/01/2024 16:25:59 07/06/1907/05/2024 CBC panel - Blood by Autom ated count platelet [entitic mean volume] in blood by automated count 9 fL low: 6fLhig h: 12fL MPV 9.0 6.0 - 12.0 fL 07/05 5:00 AM EDT [employer] [facility] [employer] ATORY Not Available Not Available 09/01/2024 16:25:59 07/06/1907/05/2024 CBC panel - Blood by Autom ated count platelets [#/volume] in blood by automated count 395 10*3/ mm3 low: 47280* 3/mm3h igh: 69585* 3/mm3 Plate lets 395 140 - 450 10*3/ mm3 07/05 5:00 AM EDT [employer] [facility] [employer] ATORY Not Available Not Available 09/01/2024 16:25:59 [...] 65 - 99 mg/dL 07/05 5:42 [facility] stickKMIGNON [facility] Not Available Not Available 09/01/2024 16:25:59 07/06/19 25 07/05/2024 Basic metab olic 1999 panel - Serum or Plasm a urea nitrogen [mass/volume ] in serum or plasma 21 mg/dL low: 8mg/dL high: 23mg/d L BUN 21 8 - 23 mg/dL 07/05 5:42 AM EDT [facility]ANGE[facility]HA [facility] Not Available Not Available 09/01/2024 16:25:59 07/06/1907/05/2024 Basic metab olic 1999 panel - Serum or Plasm a creatinine [mass/volume ] in serum or plasma 1.18 mg/dL low: 0.76mg /dLhig h: 1.27mg /dL Creat inine 1.18 0.76 - 1.27 mg/dL 07/05 5:42 AM EDT [facility] stickKMIGNON [facility] ATORY Not Available Not Available 09/01/2024 16:25:59 07/06/1907/05/2024 Basic metab olic 1999 panel - Serum or Plasm a sodium [moles/volum e] in serum or plasma 140 mmol/ L low: 136mmo l/Lhig h: 145mmo l/L Sodiu m 140 136 - 145 mmol/ L 07/05 5:42 AM EDT [facility] stickKMIGNON [facility] AT[facility] Not Available Not Available 09/01/2024 16:25:59 07/06/1907/05/2024 Basic metab olic 1999 panel - Serum or Plasm a potassium [moles/volum e] in serum or plasma 3.9 mmol/ L low: 3.5mmo l/Lhig h: 5.2mmo l/L Potas sium 3.9 3.5 - 5.2 mmol/ L 07/05 5:42 AM EDT [facility] stickKMIGNON [facility] AT[facility] Not Available Not Available 09/01/2024 16:25:59 07/06/19 25 07/05/2024 Basic metab olic 1999 panel - Serum or Plasm a chloride [moles/volum e] in serum or plasma 97 mmol/ L low: 98mmol /Lhigh : 107mmo l/L low Chlor chava 97 (L) 98 - 107 mmol/ L 07/05 5:42 AM EDT [employer] ATORY Not Available Not Available 09/01/2024 16:25:59 07/06/1907/05/2024 Basic metab olic 2000 panel - Serum or Plasm a carbon dioxide, total [moles/volum e] in serum or plasma 31 mmol/ L low: 22mmol /Lhigh : 29mmol /L high CO2 31.0 (H) 22.0 - 29.0 mmol/ L 07/05 5:42 AM EDT [employer] LABOR ATORY Not Available Not Available 09/01/2024 16:25:59 07/06/1907/05/2024 Basic metab olic 2000 panel - Serum or Plasm a calcium [moles/volum e] in specimen 8.9 mg/dL low: 8.6mg/ dLhigh : 10.5mg /dL Calci um 8.9 8.6 - 10.5 mg/dL 07/05 5:42 AM EDT [facility] AT[facility] Not Available Not Available 09/01/2024 16:25:59 07/06/1907/05/2024 Basic [email or web address] olic 2000 panel - Serum or Plasm a urea nitrogen/cre atinine [mass ratio] in serum or plasma 17.8 low: 7high: 25 BUN/C reati nine Ratio 17.8 7.0 - 25.0 07/05 5:42 AM EDT [facility] Not Available Not Available 09/01/2024 16:25:59 07/06/1907/05/2024 Basic metab olic 2000 panel - Serum or Plasm a anion gap in serum or plasma by calculated.3 ions 12 mmol/ L low: 5mmol/ Lhigh: 15mmol /L Anion Gap 12.0 5.0 - 15.0 mmol/ L 07/05 5:42 AM EDT [facility] AT[facility] Not Available Not Available 09/01/2024 [...] - 130 mg/dL 07/06 8:43 AM EDT [facility] Not Available Not Available 09/01/2024 [...] 10.80 10*3/ mm3 07/06 5:22 AM EDT [facility] Not Available Not Available 09/01/2024 16:25:59 07/07/1907/06/2024 CBC panel - Blood by Autom ated count erythrocytes [#/volume] in blood by automated count 4.62 10*6/ mm3 low: 4.1410 *6/mm3 high: 5.810* 6/mm3 RBC 4.62 4.14 - 5.80 10*6/ mm3 07/06 5:22 AM EDT [facility] Not Available Not Available 09/01/2024 16:25:59 07/07/1907/06/2024 CBC panel - Blood by Autom ated count hemoglobin [mass/volume ] in blood 11.1 g/dL low: 13g/dL high: 17.7g/ dL low Hemog lobin 11.1 (L) 13.0 - 17.7 g/dL 07/06 5:22 AM EDT [employer] [facility] [employer]acts ATORY Not Available Not Available 09/01/2024 16:25:59 07/07/1907/06/2024 CBC panel - Blood by Autom ated count hematocrit [volume fraction] of blood by automated count 37.5 % low: 37.5%h igh: 51% Hemat ocrit 37.5 37.5 - 51.0 % 07/06 5:22 AM EDT [employer] [facility] [employer] ATORY Not Available Not Available 09/01/2024 16:25:59 07/07/1907/06/2024 CBC panel - Blood by Autom ated count MCV [entitic mean volume] in red blood cells by automated count 81.2 fL low: 79fLhi gh: 97fL MCV 81.2 79.0 - 97.0 fL 07/06 5:22 AM EDMinbox [employer] [facility] [employer]acts ATORY Not Available Not Available 09/01/2024 16:25:59 07/07/1907/06/2024 CBC panel - Blood by Autom ated count MCH [entitic mass] by automated count 24 pg low: 26.6pg high: 33pg low MCH 24.0 (L) 26.6 - 33.0 pg 07/06 5:22 [facility] Not Available Not Available 09/01/2024 16:25:59 07/07/1907/06/2024 CBC panel - Blood by Autom ated count MCHC [entitic mass/volume] in red blood cells by automated count 29.6 g/dL low: 31.5g/ dLhigh : 35.7g/ dL low MCHC 29.6 (L) 31.5 - 35.7 g/dL 07/06 5:22 AM EDT [employer] [facility] [employer] ATORY Not Available Not Available 09/01/2024 16:25:59 07/07/1907/06/2024 CBC panel - Blood by Autom ated count erythrocyte [distwidth] in red blood cells by automated count 18.1 % low: 12.3%h igh: 15.4% high RDW 18.1 (H) 12.3 - 15.4 % 07/06 5:22 AM EDT [facility] Not Available Not Available 09/01/2024 16:25:59 07/07/19 25 07/06/2024 CBC panel - Blood by Autom ated count RDW-SD 52.5 fL low: 37fLhi gh: 54fL RDW-S D 52.5 37.0 - 54.0 fl 07/06 5:22 AM EDT [facility] Not Available Not Available 09/01/2024 16:25:59 07/07/19 25 07/06/2024 CBC panel - Blood by Autom ated count platelet [entitic mean volume] in blood by automated count 9.1 fL low: 6fLhig h: 12fL MPV 9.1 6.0 - 12.0 fL 07/06 5:22 AM EDT [facility] Not Available Not Available 09/01/2024 16:25:59 07/07/1907/06/2024 CBC panel - Blood by Autom ated count platelets [#/volume] in blood by automated count 454 10*3/ mm3 low: 31142* 3/mm3h igh: 64230* 3/mm3 high Plate lets 454 (H) 140 - 450 10*3/ mm3 07/06 5:22 AM EDT [facility] Not Available Not Available 09/01/2024 16:25:59 [...] - 99 mg/dL 07/06 5:45 AM EDT [facility] Not Available Not Available 09/01/2024 16:25:59 07/07/19 25 07/06/2024 Basic metab olic 1999 panel - Serum or Plasm a urea nitrogen [mass/volume ] in serum or plasma 23 mg/dL low: 8mg/dL high: 23mg/d L BUN 23 8 - 23 mg/dL 07/06 5:45 AM EDT [facility] Not Available Not Available 09/01/2024 16:25:59 07/07/19 25 07/06/2024 Basic metab olic 1999 panel - Serum or Plasm a creatinine [mass/volume ] in serum or plasma 1.26 mg/dL low: 0.76mg /dLhig h: 1.27mg /dL Creat inine 1.26 0.76 - 1.27 mg/dL 07/06 5:45 AM EDT [facility] Not Available Not Available 09/01/2024 16:25:59 07/07/19 25 07/06/2024 Basic metab olic 1999 panel - Serum or Plasm a sodium [moles/volum e] in serum or plasma 135 mmol/ L low: 136mmo l/Lhig h: 145mmo l/L low Sodiu m 135 (L) 136 - 145 mmol/ L 07/06 5:45 AM EDT [facility] Not Available Not Available 09/01/2024 16:25:59 07/07/19 25 07/06/2024 Basic metab olic 1999 panel - Serum or Plasm a potassium [moles/volum e] in serum or plasma 3.9 mmol/ L low: 3.5mmo l/Lhig h: 5.2mmo l/L Potas sium 3.9 3.5 - 5.2 mmol/ L 07/06 5:45 AM EDT [employer] [facility] Not Available Not Available 09/01/2024 16:25:59 07/07/19 25 07/06/2024 Basic metab olic 1999 panel - Serum or Plasm a chloride [moles/volum e] in serum or plasma 90 mmol/ L low: 98mmol /Lhigh : 107mmo l/L low Chlor chava 90 (L) 98 - 107 mmol/ L 07/06 5:45 AM EDT [employer] [facility] Not Available Not Available 09/01/2024 16:25:59 07/07/1907/06/2024 Basic metab olic 1999 panel - Serum or Plasm a carbon dioxide, total [moles/volum e] in serum or plasma 30 mmol/ L low: 22mmol /Lhigh : 29mmol /L high CO2 30.0 (H) 22.0 - 29.0 mmol/ L 07/06 5:45 AM EDT [facility] Not Available Not Available 09/01/2024 16:25:59 07/07/1907/06/2024 Basic [email or web address] olic 1999 panel - Serum or Plasm a calcium [moles/volum e] in specimen 8.9 mg/dL low: 8.6mg/ dLhigh : 10.5mg /dL Calci um 8.9 8.6 - 10.5 mg/dL 07/06 5:45 AM EDT [facility] Not Available Not Available 09/01/2024 16:25:59 07/07/1907/06/2024 Basic [email or web address] olic 2000 panel - Serum or Plasm a urea nitrogen/cre atinine [mass ratio] in serum or plasma 18.3 low: 7high: 25 BUN/C reati nine Ratio 18.3 7.0 - 25.0 07/06 5:45 AM EDT [facility] Not Available Not Available 09/01/2024 16:25:59 07/07/19 25 07/06/2024 Basic metab olic 1999 panel - Serum or Plasm a anion gap in serum or plasma by calculated.3 ions 15 mmol/ L low: 5mmol/ Lhigh: 15mmol /L Anion Gap 15.0 5.0 - 15.0 mmol/ L 07/06 5:45 AM EDT [facility] Not Available Not Available 09/01/2024 [...] - 130 mg/dL 07/07 11:34 AM EDT [employer] [facility] AT[facility] Not Available Not Available 09/01/2024 [...] - 130 mg/dL 07/07 7:24 AM EDT [facility] Not Available Not Available 09/01/2024 [...] - 99 mg/dL 07/07 5:17 AM EDT [employer] [facility] AT[facility] Not Available Not Available 09/01/2024 16:26:00 07/08/19 25 07/07/2024 Basic metab olic 2000 panel - Serum or Plasm a urea nitrogen [mass/volume ] in serum or plasma 25 mg/dL low: 8mg/dL high: 23mg/d L high BUN 25 (H) 8 - 23 mg/dL 07/07 5:17 AM EDT [facility] Not Available Not Available 09/01/2024 16:26:00 07/08/1907/07/2024 Basic metab olic 1999 panel - Serum or Plasm a creatinine [mass/volume ] in serum or plasma 1.19 mg/dL low: 0.76mg /dLhig h: 1.27mg /dL Creat inine 1.19 0.76 - 1.27 mg/dL 07/07 5:17 AM EDT [facility] Not Available Not Available 09/01/2024 16:26:00 07/08/1907/07/2024 Basic metab olic 1999 panel - Serum or Plasm a sodium [moles/volum e] in serum or plasma 137 mmol/ L low: 136mmo l/Lhig h: 145mmo l/L Sodiu m 137 136 - 145 mmol/ L 07/07 5:17 AM EDT [facility] Not Available Not Available 09/01/2024 16:26:00 07/08/1907/07/2024 Basic metab olic 1999 panel - Serum or Plasm a potassium [moles/volum e] in serum or plasma 3.6 mmol/ L low: 3.5mmo l/Lhig h: 5.2mmo l/L Potas sium 3.6 3.5 - 5.2 mmol/ L 07/07 5:17 AM EDT [facility] Not Available Not Available 09/01/2024 16:26:00 07/08/1907/07/2024 Basic metab olic 1999 panel - Serum or Plasm a chloride [moles/volum e] in serum or plasma 91 mmol/ L low: 98mmol /Lhigh : 107mmo l/L low Chlor chava 91 (L) 98 - 107 mmol/ L 07/07 5:17 AM EDT [employer] [facility] Not Available Not Available 09/01/2024 16:26:00 07/08/1907/07/2024 Basic metab olic 1999 panel - Serum or Plasm a carbon dioxide, total [moles/volum e] in serum or plasma 34 mmol/ L low: 22mmol /Lhigh : 29mmol /L high CO2 34.0 (H) 22.0 - 29.0 mmol/ L 07/07 5:17 AM EDT [employer] [facility] Not Available Not Available 09/01/2024 16:26:00 07/08/1907/07/2024 Basic metab olic 1999 panel - Serum or Plasm a calcium [moles/volum e] in specimen 9 mg/dL low: 8.6mg/ dLhigh : 10.5mg /dL Calci um 9.0 8.6 - 10.5 mg/dL 07/07 5:17 AM ED[facility] [email or web address] [facility] Not Available Not Available 09/01/2024 16:26:00 07/08/1907/07/2024 Basic metab olic 1999 panel - Serum or Plasm a urea nitrogen/cre atinine [mass ratio] in serum or plasma 21 low: 7high: 25 BUN/C reati nine Ratio 21.0 7.0 - 25.0 07/07 5:17 AM EDT [facility] [email or web address] [facility] Not Available Not Available 09/01/2024 16:26:00 07/08/1907/07/2024 Basic metab olic 1999 panel - Serum or Plasm a anion gap in serum or plasma by calculated.3 ions 12 mmol/ L low: 5mmol/ Lhigh: 15mmol /L Anion Gap 12.0 5.0 - 15.0 mmol/ L 07/07 5:17 AM EDT [employer] [facility] [email or web address] [facility] AT[facility] Not Available Not Available 09/01/2024 16:26:00 [...] mg/dL 08/18 8:[address] [facility] [...] 5.2 mmol/ L 08/18 3:[address] [facility] Not Available Not [...] 10.80 10*3/ mm3 08/18 2:32 PM EDT [employer] Cloud [employer] H [email or web address] LABOR ATORY Not Available Not Available 09/01/2024 16:24:23 08/19/19 25 08/18/2024 CBC W Diffe renti al panel , metho d unspe cifie d - Blood erythrocytes [#/volume] in blood by automated count 3.9 10*6/ mm3 low: 4.1410 *6/mm3 high: 5.810* 6/mm3 low RBC 3.90 (L) 4.14 - 5.80 10*6/ mm3 08/18 2:32 PM EDT [employer] Cloud [employer] H [email or web address] LABOR ATORY Not Available Not Available 09/01/2024 16:24:23 08/19/19 25 08/18/2024 CBC W Diffe renti al panel , metho d unspe cifie d - Blood hemoglobin [mass/volume ] in blood 9.3 g/dL low: 13g/dL high: 17.7g/ dL low Hemog lobin 9.3 (L) 13.0 - 17.7 g/dL 08/18 2:32 PM EDT [employer] Cloud [employer] LAB[facility] ATORY Not Available Not Available 09/01/2024 16:24:23 08/19/19 25 08/18/2024 CBC W Diffe renti al panel , metho d unspe cifie d - Blood hematocrit [volume fraction] of blood by automated count 30.4 % low: 37.5%h igh: 51% low Hemat ocrit 30.4 (L) 37.5 - 51.0 % 08/18 2:32 PM EDT [facility] [email or web address] [facility] Not Available Not Available 09/01/2024 16:24:23 08/19/19 25 08/18/2024 CBC W Diffe renti al panel , metho d unspe cifie d - Blood MCV [entitic mean volume] in red blood cells by automated count 77.9 fL low: 79fLhi gh: 97fL low MCV 77.9 (L) 79.0 - 97.0 fL 08/18 2:32 PM EDT [facility] Etacts ATORY Not Available Not Available 09/01/2024 16:24:23 08/19/19 25 08/18/2024 CBC W Diffe renti al panel , metho d unspe cifie d - Blood MCH [entitic mass] by automated count 23.8 pg low: 26.6pg high: 33pg low MCH 23.8 (L) 26.6 - 33.0 pg 08/18 2:32 PM EDT [facility] [employer] [facility] Etacts ATORY Not Available Not Available 09/01/2024 16:24:23 08/19/19 25 08/18/2024 CBC W Diffe renti al panel , metho d unspe cifie d - Blood MCHC [entitic mass/volume] in red blood cells by automated count 30.6 g/dL low: 31.5g/ dLhigh : 35.7g/ dL low MCHC 30.6 (L) 31.5 - 35.7 g/dL 08/18 2:32 PM EDT [employer] [facility] Etacts ATORY Not Available Not Available 09/01/2024 16:24:23 08/19/19 25 08/18/2024 CBC W Diffe renti al panel , metho d unspe cifie d - Blood erythrocyte [distwidth] in red blood cells by automated count 17.2 % low: 12.3%h igh: 15.4% high RDW 17.2 (H) 12.3 - 15.4 % 08/18 2:32 PM EDT [employer] [facility] [employer] LABOR ATORY Not Available Not Available 09/01/2024 16:24:23 08/19/19 25 08/18/2024 CBC W Diffe renti al panel , metho d unspe cifie d - Blood RDW-SD 48.5 fL low: 37fLhi gh: 54fL RDW-S D 48.5 37.0 - 54.0 fl 08/18 2:32 PM EDT [employer] [facility] [employer] LABOR ATORY Not Available Not Available 09/01/2024 16:24:23 08/19/19 25 08/18/2024 CBC W Diffe josé al panel , metho d unspe cifie d - Blood platelet [entitic mean volume] in blood by automated count 8.8 fL low: 6fLhig h: 12fL MPV 8.8 6.0 - 12.0 fL 08/18 2:32 PM EDT [employer] [facility] [employer] LABOR ATORY Not Available Not Available 09/01/2024 16:24:23 08/19/19 25 08/18/2024 CBC W Diffe josé al panel , metho d unspe cifie d - Blood platelets [#/volume] in blood by automated count 405 10*3/ mm3 low: 09593* 3/mm3h igh: 32931* 3/mm3 Plate lets 405 140 - 450 10*3/ mm3 08/18 2:32 PM EDT [employer] [facility] [employer] LABOR ATORY Not Available Not Available 09/01/2024 16:24:23 08/19/19 25 08/18/2024 CBC W Diffe renti al panel , metho d unspe cifie d - Blood neutrophils/ leukocytes in blood by automated count 80.6 % low: 42.7%h igh: 76% high Neutr ophil % 80.6 (H) 42.7 - 76.0 % 08/18 2:[address] [facility] [employer] ATORY Not Available Not Available 09/01/2024 16:24:23 08/19/19 25 08/18/2024 CBC W Diffe renti al panel , metho d unspe cifie d - Blood lymphocytes/ leukocytes in blood by automated count 11 % low: 19.6%h igh: 45.3% low Lymph ocyte % 11.0 (L) 19.6 - 45.3 % 08/18 2:32 PM EDT [facility] [employer] [facility] Etacts ATORY Not Available Not Available 09/01/2024 16:24:23 08/19/19 25 08/18/2024 CBC W Diffe renti al panel , metho d unspe cifie d - Blood monocytes/le ukocytes in blood by automated count 6.6 % low: 5%high : 12% Monoc yte % 6.6 5.0 - 12.0 % 08/18 2:32 PM EDT [facility] Etacts ATORY Not Available Not Available 09/01/2024 16:24:23 08/19/19 25 08/18/2024 CBC W Diffe renti al panel , metho d unspe cifie d - Blood eosinophils/ leukocytes in blood by automated count 0.7 % low: 0.3%hi gh: 6.2% Eosin ophil % 0.7 0.3 - 6.2 % 08/18 2:32 PM EDT [facility] [employer] [facility] Etacts ATORY Not Available Not Available 09/01/2024 16:24:23 08/19/19 25 08/18/2024 CBC W Diffe renti al panel , metho d unspe cifie d - Blood basophils/le ukocytes in blood by automated count 0.4 % low: 0%high : 1.5% Basop hil % 0.4 0.0 - 1.5 % 08/18 2:32 PM EDT [facility] Etacts ATORY Not Available Not Available 09/01/2024 16:24:23 08/19/19 25 08/18/2024 CBC W Diffe renti al panel , metho d unspe cifie d - Blood immature granulocytes /leukocytes in blood by automated count 0.7 % low: 0%high : 0.5% high Immat ure Grans % 0.7 (H) 0.0 - 0.5 % 08/18 2:32 PM EDT [employer] Etacts ATORY Not Available Not Available 09/01/2024 16:24:23 08/19/19 25 08/18/2024 CBC W Diffe renti al panel , metho d unspe cifie d - Blood neutrophils/ leukocytes in blood by automated count 9.2 10*3/ mm3 low: 1.710* 3/mm3h igh: 710*3/ mm3 high Neutr ophil s, Absol [place] 9.20 (H) 1.70 - 7.00 10*3/ mm3 08/18 2:32 PM EDT [employer]acts ATORY Not Available Not Available 09/01/2024 16:24:23 08/19/19 25 08/18/2024 CBC W Diffe renti al panel , metho d unspe cifie d - Blood lymphocytes [#/volume] in blood by automated count 1.26 10*3/ mm3 low: 0.710* 3/mm3h igh: 3.110* 3/mm3 Lymph ocyte s, Absol [place] 1.26 0.70 - 3.10 10*3/ mm3 08/18 2:32 PM EDT [email or web address] LAB[facility] ATORY Not Available Not Available 09/01/2024 16:24:23 08/19/19 25 08/18/2024 CBC W Diffe renti al panel , metho d unspe cifie d - Blood monocytes [#/volume] in blood by automated count 0.75 10*3/ mm3 low: 0.110* 3/mm3h igh: 0.910* 3/mm3 Monoc ytes, Absol [place] 0.75 0.10 - 0.90 10*3/ mm3 08/18 2:32 PM EDT [employer] Etacts ATORY Not Available Not Available 09/01/2024 16:24:23 08/19/19 25 08/18/2024 CBC W Diffe renti al panel , metho d unspe cifie d - Blood eosinophils [#/volume] in blood by automated count 0.08 10*3/ mm3 low: 010*3/ mm3hig h: 0.410* 3/mm3 Eosin ophil s, Absol [place] 0.08 0.00 - 0.40 10*3/ mm3 08/18 2:32 PM EDT [email or web address] LABOR ATORY Not Available Not Available 09/01/2024 16:24:23 08/19/19 25 08/18/2024 CBC W Diffe renti al panel , metho d unspe cifie d - Blood basophils [#/volume] in blood by automated count 0.04 10*3/ mm3 low: 010*3/ mm3hig h: 0.210* 3/mm3 Basop hils, Absol [place] 0.04 0.00 - 0.20 10*3/ mm3 08/18 2:32 PM EDT [employer] H [employer] LABOR ATORY Not Available Not Available 09/01/2024 16:24:23 08/19/19 25 08/18/2024 CBC W Diffe renti al panel , metho d unspe cifie d - Blood immature granulocytes [#/volume] in blood by automated count 0.08 10*3/ mm3 low: 010*3/ mm3hig h: 0.0510 *3/mm3 high Immat ure Grans , Absol [place] 0.08 (H) 0.00 - 0.05 10*3/ mm3 08/18 2:32 PM EDT [employer] H [employer] LABOR ATORY Not Available Not Available 09/01/2024 16:24:23 08/19/19 25 08/18/2024 CBC W Diffe renti al panel , metho d unspe cifie d - Blood nucleated erythrocytes /leukocytes [ratio] in blood by automated count 0.4 text: 0.0 - 0.2 /100 WBC high nRBC 0.4 (H) 0.0 - 0.2 /100 WBC 08/18 2:32 PM EDT [employer] H [employer] LABOR ATORY Not Available Not Available 09/01/2024 [...] are availa ble. Refer to http:/ /www.b ras- pct-ca lculat or.com Change in PCT <=80% [...] are avail able. Refer to http: //www .[facility] ms-pc t-jone culat or.co m [place] [...] 2.0 mmol/ L 08/18 1:21 PM EDT [facility] Etacts ATORY Not Available Not Available 09/01/2024 16:24:23 [...] 10.80 10*3/ mm3 08/18 1:00 PM EDT [facility] [employer] [facility] Etacts ATORY Not Available Not Available 09/01/2024 16:24:23 08/19/19 25 08/18/2024 CBC W Diffe renti al panel , metho d unspe cifie d - Blood erythrocytes [#/volume] in blood by automated count 3.94 10*6/ mm3 low: 4.1410 *6/mm3 high: 5.810* 6/mm3 low RBC 3.94 (L) 4.14 - 5.80 10*6/ mm3 08/18 1:00 PM EDT [facility] Etacts ATORY Not Available Not Available 09/01/2024 16:24:23 08/19/19 25 08/18/2024 CBC W Diffe renti al panel , metho d unspe cifie d - Blood hemoglobin [mass/volume ] in blood 9.1 g/dL low: 13g/dL high: 17.7g/ dL low Hemog lobin 9.1 (L) 13.0 - 17.7 g/dL 08/18 1:00 PM EDT [facility] Etacts ATORY Not Available Not Available 09/01/2024 16:24:23 08/19/19 25 08/18/2024 CBC W Diffe renti al panel , metho d unspe cifie d - Blood hematocrit [volume fraction] of blood by automated count 30.8 % low: 37.5%h igh: 51% low Hemat ocrit 30.8 (L) 37.5 - 51.0 % 08/18 1:00 PM EDT [facility] Etacts ATORY Not Available Not Available 09/01/2024 16:24:23 08/19/19 25 08/18/2024 CBC W Diffe renti al panel , metho d unspe cifie d - Blood MCV [entitic mean volume] in red blood cells by automated count 78.2 fL low: 79fLhi gh: 97fL low MCV 78.2 (L) 79.0 - 97.0 fL 08/18 1:00 PM EDT [employer] [facility] Etacts ATORY Not Available Not Available 09/01/2024 16:24:23 08/19/19 25 08/18/2024 CBC W Diffe renti al panel , metho d unspe cifie d - Blood MCH [entitic mass] by automated count 23.1 pg low: 26.6pg high: 33pg low MCH 23.1 (L) 26.6 - 33.0 pg 08/18 1:00 PM EDT [employer] [facility] Etacts ATORY Not Available Not Available 09/01/2024 16:24:23 08/19/19 25 08/18/2024 CBC W Diffe renti al panel , metho d unspe cifie d - Blood MCHC [entitic mass/volume] in red blood cells by automated count 29.5 g/dL low: 31.5g/ dLhigh : 35.7g/ dL low MCHC 29.5 (L) 31.5 - 35.7 g/dL 08/18 1:00 PM EDT [employer] [facility] [employer] ATORY Not Available Not Available 09/01/2024 16:24:23 08/19/19 25 08/18/2024 CBC W Diffe renti al panel , metho d unspe cifie d - Blood erythrocyte [distwidth] in red blood cells by automated count 17.2 % low: 12.3%h igh: 15.4% high RDW 17.2 (H) 12.3 - 15.4 % 08/18 1:00 PM EDT [employer] [facility] Etacts ATORY Not Available Not Available 09/01/2024 16:24:23 08/19/19 25 08/18/2024 CBC W Diffe michaelti al panel , metho d unspe cifie d - Blood RDW-SD 48.8 fL low: 37fLhi gh: 54fL RDW-S D 48.8 37.0 - 54.0 fl 08/18 1:00 PM EDT [facility] Not Available Not Available 09/01/2024 16:24:23 08/19/19 25 08/18/2024 CBC W Diffe josé al panel , metho d unspe cifie d - Blood platelet [entitic mean volume] in blood by automated count 8.7 fL low: 6fLhig h: 12fL MPV 8.7 6.0 - 12.0 fL 08/18 1:00 PM EDT [employer] [facility] Etacts ATORY Not Available Not Available 09/01/2024 16:24:23 08/19/19 25 08/18/2024 CBC W Diffe josé al panel , metho d unspe cifie d - Blood platelets [#/volume] in blood by automated count 403 10*3/ mm3 low: 41934* 3/mm3h igh: 89714* 3/mm3 Plate lets 403 140 - 450 10*3/ mm3 08/18 1:00 PM EDT [employer] [employer] [facility] Etacts ATORY Not Available Not Available 09/01/2024 16:24:23 08/19/19 25 08/18/2024 CBC W Diffe renashlie al panel , metho d unspe cifie d - Blood neutrophils/ leukocytes in blood by automated count 79.5 % low: 42.7%h igh: 76% high Neutr ophil % 79.5 (H) 42.7 - 76.0 % 08/18 1:00 PM EDT [facility] [email or web address] LABOR ATORY Not Available Not Available 09/01/2024 16:24:23 08/19/19 25 08/18/2024 CBC W Diffe renti al panel , metho d unspe cifie d - Blood lymphocytes/ leukocytes in blood by automated count 11.9 % low: 19.6%h igh: 45.3% low Lymph ocyte % 11.9 (L) 19.6 - 45.3 % 08/18 1:00 PM EDT [facility] [email or web address] LABOR ATORY Not Available Not Available 09/01/2024 16:24:23 08/19/19 25 08/18/2024 CBC W Diffe renti al panel , metho d unspe cifie d - Blood monocytes/le ukocytes in blood by automated count 6.9 % low: 5%high : 12% Monoc yte % 6.9 5.0 - 12.0 % 08/18 1:00 PM EDT [facility] [email or web address] LABOR ATORY Not Available Not Available 09/01/2024 16:24:23 08/19/19 25 08/18/2024 CBC W Diffe renti al panel , metho d unspe cifie d - Blood eosinophils/ leukocytes in blood by automated count 0.8 % low: 0.3%hi gh: 6.2% Eosin ophil % 0.8 0.3 - 6.2 % 08/18 1:00 PM EDT [facility] [email or web address] LABOR ATORY Not Available Not Available 09/01/2024 16:24:23 08/19/19 25 08/18/2024 CBC W Diffe renti al panel , metho d unspe cifie d - Blood basophils/le ukocytes in blood by automated count 0.2 % low: 0%high : 1.5% Basop hil % 0.2 0.0 - 1.5 % 08/18 1:00 PM EDT [facility] [email or web address] LABOR ATORY Not Available Not Available 09/01/2024 16:24:23 08/19/19 25 08/18/2024 CBC W Diffe renti al panel , metho d unspe cifie d - Blood immature granulocytes /leukocytes in blood by automated count 0.7 % low: 0%high : 0.5% high Immat ure Grans % 0.7 (H) 0.0 - 0.5 % 08/18 1:[address] [employer] [facility] [employer] LABOR ATORY Not Available Not Available 09/01/2024 16:24:23 08/19/19 25 08/18/2024 CBC W Diffe renti al panel , metho d unspe cifie d - Blood neutrophils/ leukocytes in blood by automated count 8.92 10*3/ mm3 low: 1.710* 3/mm3h igh: 710*3/ mm3 high Neutr ophil s, Absol [place] 8.92 (H) 1.70 - 7.00 10*3/ mm3 08/18 1:00 PM EDT [email or web address] LABOR ATORY Not Available Not Available 09/01/2024 16:24:23 08/19/19 25 08/18/2024 CBC W Diffe renti al panel , metho d unspe cifie d - Blood lymphocytes [#/volume] in blood by automated count 1.34 10*3/ mm3 low: 0.710* 3/mm3h igh: 3.110* 3/mm3 Lymph ocyte s, Absol [place] 1.34 0.70 - 3.10 10*3/ mm3 08/18 1:00 PM EDT [email or web address] LABOR ATORY Not Available Not Available 09/01/2024 16:24:23 08/19/19 25 08/18/2024 CBC W Diffe renti al panel , metho d unspe cifie d - Blood monocytes [#/volume] in blood by automated count 0.78 10*3/ mm3 low: 0.110* 3/mm3h igh: 0.910* 3/mm3 Monoc ytes, Absol [place] 0.78 0.10 - 0.90 10*3/ mm3 08/18 1:00 PM EDT [employer] LABOR ATORY Not Available Not Available 09/01/2024 16:24:23 08/19/19 25 08/18/2024 CBC W Diffe renti al panel , metho d unspe cifie d - Blood eosinophils [#/volume] in blood by automated count 0.09 10*3/ mm3 low: 010*3/ mm3hig h: 0.410* 3/mm3 Eosin ophil s, Absol [place] 0.09 0.00 - 0.40 10*3/ mm3 08/18 1:00 PM EDT [employer] LABOR ATORY Not Available Not Available 09/01/2024 16:24:23 08/19/19 25 08/18/2024 CBC W Diffe renti al panel , metho d unspe cifie d - Blood basophils [#/volume] in blood by automated count 0.02 10*3/ mm3 low: 010*3/ mm3hig h: 0.210* 3/mm3 Basop hils, Absol [place] 0.02 0.00 - 0.20 10*3/ mm3 08/18 1:00 PM EDT [facility] [email or web address] Application Etacts ATORY Not Available Not Available 09/01/2024 16:24:23 08/19/19 25 08/18/2024 CBC W Diffe renti al panel , metho d unspe cifie d - Blood immature granulocytes [#/volume] in blood by automated count 0.08 10*3/ mm3 low: 010*3/ mm3hig h: 0.0510 *3/mm3 high Immat ure Grans , Absol [place] 0.08 (H) 0.00 - 0.05 10*3/ mm3 08/18 1:00 PM EDT [employer] LABOR ATORY Not Available Not Available 09/01/2024 16:24:23 08/19/19 25 08/18/2024 CBC W Diffe renti al panel , metho d unspe cifie d - Blood nucleated erythrocytes /leukocytes [ratio] in blood by automated count 0.4 text: 0.0 - 0.2 /100 WBC high nRBC 0.4 (H) 0.0 - 0.2 /100 WBC 08/18 1:00 PM EDT [employer] [facility] AT[facility] Not Available Not [...] - 2.4 mg/dL 08/18 1:35 PM EDT [facility] Not Available Not Available 09/01/2024 16:24:23 [...] (H) <22 ng/L 08/18 1:27 PM EDT [facility] Not Available Not Available 09/01/2024 16:24:23 [...] 5.0 - 8.0 08/18 1:09 PM EDT [facility] [email or web address] LABOR ATORY Not Available Not Available 09/01/2024 16:24:23 08/19/19 25 08/18/2024 Urina lysis macro (dips tick) panel - Urine specific gravity of urine by test strip 1.014 low: 1.001h igh: 1.03 Speci fic Gravi ty, UA 1.014 1.001 - 1.030 08/18 1:09 PM EDT [facility] [email or web address] LABOR ATORY Not Available Not Available 09/01/2024 16:24:23 08/19/19 25 08/18/2024 Urina lysis macro (dips tick) panel - Urine glucose [mass/volume ] in urine by test strip Negati ve text: negati ve Gluco se, UA Negat minh Negat minh 08/18 1:09 PM EDT [facility] [email or web address] LABOR ATORY Not Available Not Available 09/01/2024 16:24:23 08/19/19 25 08/18/2024 Urina lysis macro (dips tick) panel - Urine ketones [presence] in urine by test strip Negati ve text: negati ve [place] es, UA Negat minh Negat minh 08/18 1:09 PM EDT [facility] [employer] [facility] AT[facility] Not Available Not Available 09/01/2024 16:24:23 08/19/19 25 08/18/2024 Urina lysis macro (dips tick) panel - Urine bilirubin.to alberto [presence] in urine by test strip Negati ve text: negati ve Bilir ubin, UA Negat minh Negat minh 08/18 1:09 PM EDT [facility] [employer] LAB[facility] AT[facility] Not Available Not Available 09/01/2024 16:24:23 08/19/19 25 08/18/2024 Urina lysis macro (dips tick) panel - Urine hemoglobin [presence] in urine by automated test strip Negati ve text: negati ve Blood , UA Negat minh Negat minh 08/18 1:09 PM EDT [facility] [employer] LABOR ATORY Not Available Not Available 09/01/2024 16:24:23 08/19/19 25 08/18/2024 Urina lysis macro (dips tick) panel - Urine protein [presence] in urine by test strip Trace text: negati ve abnormal Prote in, UA Trace (A) Negat minh 08/18 1:09 PM EDT [facility] [employer] LABOR ATORY Not Available Not Available 09/01/2024 16:24:23 08/19/19 25 08/18/2024 Urina lysis macro (dips tick) panel - Urine leukocyte esterase [presence] in urine by automated test strip Trace text: negati ve abnormal Leuk Kacey ase, UA Trace (A) Negat minh 08/18 1:09 PM EDT [facility] [employer] LABOR AT[facility] Not Available Not Available 09/01/2024 16:24:23 08/19/19 25 08/18/2024 Urina lysis macro (dips tick) panel - Urine nitrite [presence] in urine by test strip Negati ve text: negati ve Nitri te, UA Negat minh Negat minh 08/18 1:09 PM EDT [facility] [employer] LABOR ATORY Not Available Not Available 09/01/2024 16:24:23 08/19/19 25 08/18/2024 Urina lysis macro (dips tick) panel - Urine urobilinogen [presence] in urine by test strip 0.2 E.U./d L text: 0.2 - 1.0 E.U./d L Urobi linog en, UA 0.2 E.U./ dL 0.2 - 1.0 E.U./ dL 08/18 1:09 PM EDT [facility] [employer] LABOR ATORY Not Available Not Available 09/01/2024 16:24:23 08/19/19 25 08/18/2024 Urina lysis macro (dips tick) panel - Urine interpretati on and review of laboratory results Abnorm al Not Available Not Available 16:24:23 08/20/19 25 08/19/2024 Basic metab olic 2000 panel - Serum or Plasm a glucose [mass/volume ] in capillary blood by glucometer 186 mg/dL low: 70mg/d Lhigh: 130mg/ dL high Gluco se 186 (H) 70 - 130 mg/dL 08/19 10:[address] [facility] [...] 5.2 mmol/ L 08/19 10:[address] [employer] [facility] Not Available Not Available [...] - 130 mg/dL 08/19 8:[address] [facility] [...] - 130 mg/dL 08/19 4:51 PM EDT [facility] [facility] Not Available [...] - 130 mg/dL 08/19 11:57 AM EDT [facility] [employer] LABOR ATORY Not Available Not Available 09/01/2024 [...] - 130 mg/dL 08/19 10:24 AM EDT [facility] [employer] LABOR ATORY Not Available Not Available 09/01/2024 [...] - 130 mg/dL 08/19 7:08 AM EDT [facility] [employer] LABOR ATORY Not Available Not Available 09/01/2024 [...] - 200 U/L 08/19 6:53 AM EDT [facility] [employer] LABOR ATORY Not Available Not Available 09/01/2024 [...] 10.80 10*3/ mm3 08/19 6:27 AM EDT [facility] [employer] LABOR ATORY Not Available Not Available 09/01/2024 16:24:24 08/20/19 25 08/19/2024 CBC W Diffe renti al panel , metho d unspe cifie d - Blood erythrocytes [#/volume] in blood by automated count 3.54 10*6/ mm3 low: 4.1410 *6/mm3 high: 5.810* 6/mm3 low RBC 3.54 (L) 4.14 - 5.80 10*6/ mm3 08/19 6:27 AM EDT [facility] Not Available Not Available 09/01/2024 16:24:24 08/20/19 25 08/19/2024 CBC W Diffe renti al panel , metho d unspe cifie d - Blood hemoglobin [mass/volume ] in blood 8.4 g/dL low: 13g/dL high: 17.7g/ dL low Hemog lobin 8.4 (L) 13.0 - 17.7 g/dL 08/19 6:27 AM EDT [facility] Not Available Not Available 09/01/2024 16:24:24 08/20/19 25 08/19/2024 CBC W Diffe michaelti al panel , metho d unspe cifie d - Blood hematocrit [volume fraction] of blood by automated count 28 % low: 37.5%h igh: 51% low Hemat ocrit 28.0 (L) 37.5 - 51.0 % 08/19 6:27 AM EDT [facility] Not Available Not Available 09/01/2024 16:24:24 08/20/19 25 08/19/2024 CBC W Diffe michaelti al panel , metho d unspe cifie d - Blood MCV [entitic mean volume] in red blood cells by automated count 79.1 fL low: 79fLhi gh: 97fL MCV 79.1 79.0 - 97.0 fL 08/19 6:27 AM EDT [facility] Not Available Not Available 09/01/2024 16:24:24 08/20/19 25 08/19/2024 CBC W Diffe renti al panel , metho d unspe cifie d - Blood MCH [entitic mass] by automated count 23.7 pg low: 26.6pg high: 33pg low MCH 23.7 (L) 26.6 - 33.0 pg 08/19 6:27 AM EDT [facility] Not Available Not Available 09/01/2024 16:24:24 08/20/19 25 08/19/2024 CBC W Diffe renti al panel , metho d unspe cifie d - Blood MCHC [entitic mass/volume] in red blood cells by automated count 30 g/dL low: 31.5g/ dLhigh : 35.7g/ dL low MCHC 30.0 (L) 31.5 - 35.7 g/dL 08/19 6:27 AM EDT [facility] Not Available Not Available 09/01/2024 16:24:24 08/20/19 25 08/19/2024 CBC W Diffe renti al panel , metho d unspe cifie d - Blood erythrocyte [distwidth] in red blood cells by automated count 17.2 % low: 12.3%h igh: 15.4% high RDW 17.2 (H) 12.3 - 15.4 % 08/19 6:27 AM EDT [facility] Not Available Not Available 09/01/2024 16:24:24 08/20/19 25 08/19/2024 CBC W Diffe renti al panel , metho d unspe cifie d - Blood RDW-SD 49.6 fL low: 37fLhi gh: 54fL RDW-S D 49.6 37.0 - 54.0 fl 08/19 6:27 AM EDT [facility] Not Available Not Available 09/01/2024 16:24:24 08/20/19 25 08/19/2024 CBC W Diffe renti al panel , metho d unspe cifie d - Blood platelet [entitic mean volume] in blood by automated count 8.7 fL low: 6fLhig h: 12fL MPV 8.7 6.0 - 12.0 fL 08/19 6:27 AM EDT [facility] Not Available Not Available 09/01/2024 16:24:24 08/20/19 25 08/19/2024 CBC W Diffe renti al panel , metho d unspe cifie d - Blood platelets [#/volume] in blood by automated count 390 10*3/ mm3 low: 11498* 3/mm3h igh: 00312* 3/mm3 Plate lets 390 140 - 450 10*3/ mm3 08/19 6:27 AM EDT [facility] Not Available Not Available 09/01/2024 16:24:24 08/20/19 25 08/19/2024 CBC W Diffe renti al panel , metho d unspe cifie d - Blood neutrophils/ leukocytes in blood by automated count 76.7 % low: 42.7%h igh: 76% high Neutr ophil % 76.7 (H) 42.7 - 76.0 % 08/19 6:27 AM EDT [facility] Not Available Not Available 09/01/2024 16:24:24 08/20/19 25 08/19/2024 CBC W Diffe renti al panel , metho d unspe cifie d - Blood lymphocytes/ leukocytes in blood by automated count 12.6 % low: 19.6%h igh: 45.3% low Lymph ocyte % 12.6 (L) 19.6 - 45.3 % 08/19 6:27 AM EDT [facility] Not Available Not Available 09/01/2024 16:24:24 08/20/19 25 08/19/2024 CBC W Diffe renti al panel , metho d unspe cifie d - Blood monocytes/le ukocytes in blood by automated count 8.8 % low: 5%high : 12% Monoc yte % 8.8 5.0 - 12.0 % 08/19 6:27 AM EDT [facility] Not Available Not Available 09/01/2024 16:24:24 08/20/19 25 08/19/2024 CBC W Diffe renti al panel , metho d unspe cifie d - Blood eosinophils/ leukocytes in blood by automated count 0.7 % low: 0.3%hi gh: 6.2% Eosin ophil % 0.7 0.3 - 6.2 % 08/19 6:27 AM EDT [facility] [email or web address] [facility] Not Available Not Available 09/01/2024 16:24:24 08/20/19 25 08/19/2024 CBC W Diffe renti al panel , metho d unspe cifie d - Blood basophils/le ukocytes in blood by automated count 0.4 % low: 0%high : 1.5% Basop hil % 0.4 0.0 - 1.5 % 08/19 6:27 AM EDT [facility] [email or web address] LAB[facility] AT[facility] Not Available Not Available 09/01/2024 16:24:24 08/20/19 25 08/19/2024 CBC W Diffe renti al panel , metho d unspe cifie d - Blood immature granulocytes /leukocytes in blood by automated count 0.8 % low: 0%high : 0.5% high Immat ure Grans % 0.8 (H) 0.0 - 0.5 % 08/19 6:27 AM EDT [facility] [email or web address] LAB[facility] AT[facility] Not Available Not Available 09/01/2024 16:24:24 08/20/19 25 08/19/2024 CBC W Diffe renti al panel , metho d unspe cifie d - Blood neutrophils/ leukocytes in blood by automated count 8.51 10*3/ mm3 low: 1.710* 3/mm3h igh: 710*3/ mm3 high Neutr ophil s, Absol [place] 8.51 (H) 1.70 - 7.00 10*3/ mm3 08/19 6:27 AM EDT [facility] [employer] [facility] [email or web address] LABOR ATORY Not Available Not Available 09/01/2024 16:24:24 08/20/19 25 08/19/2024 CBC W Diffe renti al panel , metho d unspe cifie d - Blood lymphocytes [#/volume] in blood by automated count 1.4 10*3/ mm3 low: 0.710* 3/mm3h igh: 3.110* 3/mm3 Lymph ocyte s, Absol [place] 1.40 0.70 - 3.10 10*3/ mm3 05/09 /2025 6:27 AM EDT [employer] [facility] [employer] [facility] [email or web address] [facility] Not Available Not Available 09/01/2024 16:24:24 08/20/19 25 08/19/2024 CBC W Diffe renti al panel , metho d unspe cifie d - Blood monocytes [#/volume] in blood by automated count 0.98 10*3/ mm3 low: 0.110* 3/mm3h igh: 0.910* 3/mm3 high Monoc ytes, Absol [place] 0.98 (H) 0.10 - 0.90 10*3/ mm3 08/19 6:27 AM EDT [employer] [facility] [email or web address] [facility] Not Available Not Available 09/01/2024 16:24:24 08/20/19 25 08/19/2024 CBC W Diffe renti al panel , metho d unspe cifie d - Blood eosinophils [#/volume] in blood by automated count 0.08 10*3/ mm3 low: 010*3/ mm3hig h: 0.410* 3/mm3 Eosin ophil s, Absol [place] 0.08 0.00 - 0.40 10*3/ mm3 08/19 6:27 AM EDT [employer] [facility] [email or web address] [facility] Not Available Not Available 09/01/2024 16:24:24 08/20/19 25 08/19/2024 CBC W Diffe renti al panel , metho d unspe cifie d - Blood basophils [#/volume] in blood by automated count 0.04 10*3/ mm3 low: 010*3/ mm3hig h: 0.210* 3/mm3 Basop hils, Absol [place] 0.04 0.00 - 0.20 10*3/ mm3 08/19 6:27 AM EDT [employer] [facility] [employer] [email or web address] [facility] Not Available Not Available 09/01/2024 16:24:24 08/20/19 25 08/19/2024 CBC W Diffe renti al panel , metho d unspe cifie d - Blood immature granulocytes [#/volume] in blood by automated count 0.09 10*3/ mm3 low: 010*3/ mm3hig h: 0.0510 *3/mm3 high Immat ure Grans , Absol [place] 0.09 (H) 0.00 - 0.05 10*3/ mm3 08/19 6:27 AM EDT [facility] Not Available Not Available 09/01/2024 16:24:24 08/20/19 25 08/19/2024 CBC W Diffe renti al panel , metho d unspe cifie d - Blood nucleated erythrocytes /leukocytes [ratio] in blood by automated count 0.2 text: 0.0 - 0.2 /100 WBC nRBC 0.2 0.0 - 0.2 /100 WBC 08/19 6:27 AM EDT [facility] Not Available Not Available 09/01/2024 16:24:24 [...] - 99 mg/dL 08/19 6:58 AM EDT [facility] Not Available Not Available 09/01/2024 16:24:24 08/20/19 25 08/19/2024 Basic metab olic 2000 panel - Serum or Plasm a urea nitrogen [mass/volume ] in serum or plasma 69 mg/dL low: 8mg/dL high: 23mg/d L high BUN 69 (H) 8 - 23 mg/dL 08/19 6:58 AM EDT [facility] Not Available Not Available 09/01/2024 16:24:24 08/20/19 25 08/19/2024 Basic metab olic 2000 panel - Serum or Plasm a creatinine [mass/volume ] in serum or plasma 2.29 mg/dL low: 0.76mg /dLhig h: 1.27mg /dL high Creat inine 2.29 (H) 0.76 - 1.27 mg/dL 08/19 6:58 AM EDT [employer] [facility] Not Available Not Available 09/01/2024 16:24:24 08/20/19 25 08/19/2024 Basic metab olic 1999 panel - Serum or Plasm a sodium [moles/volum e] in serum or plasma 136 mmol/ L low: 136mmo l/Lhig h: 145mmo l/L Sodiu m 136 136 - 145 mmol/ L 08/19 6:58 AM EDT [facility] [employer] [facility] AT[facility] Not Available Not Available 09/01/2024 16:24:24 08/20/19 25 08/19/2024 Basic metab olic 1999 panel - Serum or Plasm a potassium [moles/volum e] in serum or plasma 6.8 mmol/ L low: 3.5mmo l/Lhig h: 5.2mmo l/L critical high Potas sium 6.8 (HH) 3.5 - 5.2 mmol/ L 08/19 6:58 AM EDT [employer] [facility] Not Available Not Available 09/01/2024 16:24:24 08/20/19 25 08/19/2024 Basic metab olic 1999 panel - Serum or Plasm a chloride [moles/volum e] in serum or plasma 102 mmol/ L low: 98mmol /Lhigh : 107mmo l/L Chlor chava 102 98 - 107 mmol/ L 08/19 6:58 AM EDT [employer] [facility] Not Available Not Available 09/01/2024 16:24:24 08/20/19 25 08/19/2024 Basic metab olic 1999 panel - Serum or Plasm a carbon dioxide, total [moles/volum e] in serum or plasma 21 mmol/ L low: 22mmol /Lhigh : 29mmol /L low CO2 21.0 (L) 22.0 - 29.0 mmol/ L 08/19 6:58 AM EDT [employer] [employer] AT[facility] Not Available Not Available 09/01/2024 16:24:24 08/20/19 25 08/19/2024 Basic metab olic 2000 panel - Serum or Plasm a calcium [moles/volum e] in specimen 9.5 mg/dL low: 8.6mg/ dLhigh : 10.5mg /dL Calci um 9.5 8.6 - 10.5 mg/dL 08/19 6:58 AM EDT [employer] ATORY Not Available Not Available 09/01/2024 16:24:24 08/20/19 25 08/19/2024 Basic metab olic 2000 panel - Serum or Plasm a urea nitrogen/cre atinine [mass ratio] in serum or plasma 30.1 low: 7high: 25 high BUN/C reati nine Ratio 30.1 (H) 7.0 - 25.0 08/19 6:58 AM EDT [facility] Not Available Not Available 09/01/2024 16:24:24 08/20/19 25 08/19/2024 Basic [email or web address] olic 2000 panel - Serum or Plasm a anion gap in serum or plasma by calculated.3 ions 13 mmol/ L low: 5mmol/ Lhigh: 15mmol /L Anion Gap 13.0 5.0 - 15.0 mmol/ L 08/19 6:58 AM EDT [facility] Not Available Not Available 09/01/2024 16:24:24 08/20/19 25 08/19/2024 Basic metab olic 2000 panel - Serum or Plasm a glomerular filtration rate [volume rate/area] in serum, plasma or blood by creatinine-b ased formula (CKD-epi 2020)/1.73 sq M 31.3 mL/mi n/1.7 3 low: 60mL/m in/1.7 3 low eGFR 31.3 (L) >60.0 mL/mi n/1.7 3 08/19 6:58 AM EDT [facility] Not Available Not Available 09/01/2024 16:24:24 [...] 52 mmol/ L 08/20 10:04 PM EDT [facility] Not Available Not [...] Urine 59.4 mg/dL 08/21 12:21 PM EDT [facility] [employer] [facility] Not Available Not [...] Urine 460 mg/dL 08/21 12:21 PM EDT [facility] Not Available Not [...] - 130 mg/dL 08/20 4:45 PM EDT [facility] Not Available Not Available 09/01/2024 16:24:24 08/21/1908/20/2024 Basic metab olic 2000 panel - Serum [...] 10.80 10*3/ mm3 08/20 2:28 PM EDT [employer] [facility] Not Available Not Available 09/01/2024 16:24:24 08/21/1908/20/2024 CBC panel - Blood by Autom ated count erythrocytes [#/volume] in blood by automated count 3.91 10*6/ mm3 low: 4.1410 *6/mm3 high: 5.810* 6/mm3 low RBC 3.91 (L) 4.14 - 5.80 10*6/ mm3 08/20 2:28 PM EDT [facility] Not Available Not Available 09/01/2024 16:24:24 08/21/1908/20/2024 CBC panel - Blood by Autom ated count hemoglobin [mass/volume ] in blood 9 g/dL low: 13g/dL high: 17.7g/ dL low Hemog lobin 9.0 (L) 13.0 - 17.7 g/dL 08/20 2:28 PM EDT [facility] Not Available Not Available 09/01/2024 16:24:24 08/21/19 25 08/20/2024 CBC panel - Blood by Autom ated count hematocrit [volume fraction] of blood by automated count 30.5 % low: 37.5%h igh: 51% low Hemat ocrit 30.5 (L) 37.5 - 51.0 % 08/20 2:28 PM EDT [employer] [facility] Not Available Not Available 09/01/2024 16:24:24 08/21/1908/20/2024 CBC panel - Blood by Autom ated count MCV [entitic mean volume] in red blood cells by automated count 78 fL low: 79fLhi gh: 97fL low MCV 78.0 (L) 79.0 - 97.0 fL 08/20 2:28 PM EDT [facility] Not Available Not Available 09/01/2024 16:24:24 08/21/19 25 08/20/2024 CBC panel - Blood by Autom ated count MCH [entitic mass] by automated count 23 pg low: 26.6pg high: 33pg low MCH 23.0 (L) 26.6 - 33.0 pg 08/20 2:28 PM EDT [facility] Not Available Not Available 09/01/2024 16:24:24 08/21/19 25 08/20/2024 CBC panel - Blood by Autom ated count MCHC [entitic mass/volume] in red blood cells by automated count 29.5 g/dL low: 31.5g/ dLhigh : 35.7g/ dL low MCHC 29.5 (L) 31.5 - 35.7 g/dL 08/20 2:28 PM EDT [facility] Not Available Not Available 09/01/2024 16:24:24 08/21/1908/20/2024 CBC panel - Blood by Autom ated count erythrocyte [distwidth] in red blood cells by automated count 17.2 % low: 12.3%h igh: 15.4% high RDW 17.2 (H) 12.3 - 15.4 % 08/20 2:28 PM EDT [facility] Not Available Not Available 09/01/2024 16:24:24 [...] - 12.0 fL 08/20 2:28 PM EDT [facility]KMIGNON [facility] Not Available Not Available 09/01/2024 16:24:24 08/21/19 25 08/20/2024 CBC panel - Blood by Autom ated count platelets [#/volume] in blood by automated count 425 10*3/ mm3 low: 75245* 3/mm3h igh: 14818* 3/mm3 Plate lets 425 140 - 450 10*3/ mm3 08/20 2:28 PM EDT [facility] [employer]KM[employer]ON [employer] [facility] Not Available Not Available 09/01/2024 16:24:24 [...] - 99 mg/dL 08/20 2:47 PM EDT [facility] [employer]ON [employer] [facility] AT[facility] Not Available Not Available 09/01/2024 16:24:24 08/21/19 25 08/20/2024 Basic metab olic 2000 panel - Serum or Plasm a urea nitrogen [mass/volume ] in serum or plasma 55 mg/dL low: 8mg/dL high: 23mg/d L high BUN 55 (H) 8 - 23 mg/dL 08/20 2:47 PM EDT [facility] [employer]ON [employer] [facility] AT[facility] Not Available Not Available 09/01/2024 16:24:24 08/21/19 25 08/20/2024 Basic metab olic 2000 panel - Serum or Plasm a creatinine [mass/volume ] in serum or plasma 1.64 mg/dL low: 0.76mg /dLhig h: 1.27mg /dL high Creat inine 1.64 (H) 0.76 - 1.27 mg/dL 08/20 2:47 PM EDT [facility] [email or web address] [facility] AT[facility] Not Available Not Available 09/01/2024 16:24:24 08/21/19 25 08/20/2024 Basic metab olic 1999 panel - Serum or Plasm a sodium [moles/volum e] in serum or plasma 135 mmol/ L low: 136mmo l/Lhig h: 145mmo l/L low Sodiu m 135 (L) 136 - 145 mmol/ L 08/20 2:47 PM EDT [employer] [facility] [employer] ATORY Not Available Not Available 09/01/2024 16:24:24 08/21/19 25 08/20/2024 Basic metab olic 1999 panel - Serum or Plasm a potassium [moles/volum e] in serum or plasma 5 mmol/ L low: 3.5mmo l/Lhig h: 5.2mmo l/L Potas sium 5.0 3.5 - 5.2 mmol/ L 08/20 2:47 PM EDT [employer] [facility] [email or web address] LABOR ATORY Not Available Not Available 09/01/2024 16:24:24 08/21/19 25 08/20/2024 Basic metab olic 1999 panel - Serum or Plasm a chloride [moles/volum e] in serum or plasma 98 mmol/ L low: 98mmol /Lhigh : 107mmo l/L Chlor chava 98 98 - 107 mmol/ L 08/20 2:47 PM EDT [facility] [email or web address] [facility] AT[facility] Not Available Not Available 09/01/2024 16:24:24 08/21/19 25 08/20/2024 Basic metab olic 1999 panel - Serum or Plasm a carbon dioxide, total [moles/volum e] in serum or plasma 26 mmol/ L low: 22mmol /Lhigh : 29mmol /L CO2 26.0 22.0 - 29.0 mmol/ L 08/20 2:47 PM EDT [employer] [facility] [employer] LABOR ATORY Not Available Not Available 09/01/2024 16:24:24 08/21/19 25 08/20/2024 Basic metab olic 2000 panel - Serum or Plasm a calcium [moles/volum e] in specimen 9.5 mg/dL low: 8.6mg/ dLhigh : 10.5mg /dL Calci um 9.5 8.6 - 10.5 mg/dL 08/20 2:47 PM EDT [employer] LABOR ATORY Not Available Not Available 09/01/2024 16:24:24 08/21/19 25 08/20/2024 Basic metab olic 1999 panel - Serum or Plasm a urea nitrogen/cre atinine [mass ratio] in serum or plasma 33.5 low: 7high: 25 high BUN/C reati nine Ratio 33.5 (H) 7.0 - 25.0 08/20 2:47 PM EDT [email or web address] LAB[facility] ATORY Not Available Not Available 09/01/2024 16:24:24 08/21/19 25 08/20/2024 Basic metab olic 2000 panel - Serum or Plasm a anion gap in serum or plasma by calculated.3 ions 11 mmol/ L low: 5mmol/ Lhigh: 15mmol /L Anion Gap 11.0 5.0 - 15.0 mmol/ L 08/20 2:47 PM EDT [facility] [email or web address] [facility] AT[facility] Not Available Not Available 09/01/2024 16:24:24 08/21/19 25 08/20/2024 Basic [email or web address] olic 2000 panel - Serum or Plasm a glomerular filtration rate [volume rate/area] in serum, plasma or blood by creatinine-b ased formula (CKD-epi 2020)/1.73 sq M 46.7 mL/mi n/1.7 3 low: 60mL/m in/1.7 3 low eGFR 46.7 (L) >60.0 mL/mi n/1.7 3 08/20 2:47 PM EDT [employer] LABOR ATORY Not Available Not Available 09/01/2024 [...] - 130 mg/dL 08/20 11:25 AM EDT [facility] [email or web address] [facility] ATORY Not Available Not Available 09/01/2024 [...] - 130 mg/dL 08/20 7:08 AM EDT [facility] [email or web address] [facility] AT[facility] Not Available Not Available 09/01/2024 [...] 10.80 10*3/ mm3 08/21 9:49 PM EDT [employer] [facility] [email or web address] LAB[facility] ATORY Not Available Not Available 09/01/2024 16:24:25 08/22/19 25 08/21/2024 CBC W Diffe renti al panel , metho d unspe cifie d - Blood erythrocytes [#/volume] in blood by automated count 3.75 10*6/ mm3 low: 4.1410 *6/mm3 high: 5.810* 6/mm3 low RBC 3.75 (L) 4.14 - 5.80 10*6/ mm3 08/21 9:49 PM EDT [facility] [email or web address] [facility] AT[facility] Not Available Not Available 09/01/2024 16:24:25 08/22/19 25 08/21/2024 CBC W Diffe renti al panel , metho d unspe cifie d - Blood hemoglobin [mass/volume ] in blood 8.8 g/dL low: 13g/dL high: 17.7g/ dL low Hemog lobin 8.8 (L) 13.0 - 17.7 g/dL 08/21 9:49 PM ED[facility] [email or web address] [facility] Not Available Not Available 09/01/2024 16:24:25 08/22/19 25 08/21/2024 CBC W Diffe renti al panel , metho d unspe cifie d - Blood hematocrit [volume fraction] of blood by automated count 29 % low: 37.5%h igh: 51% low Hemat ocrit 29.0 (L) 37.5 - 51.0 % 08/21 9:49 PM EDT [facility] [email or web address] [facility] Not Available Not Available 09/01/2024 16:24:25 08/22/19 25 08/21/2024 CBC W Diffe renti al panel , metho d unspe cifie d - Blood MCV [entitic mean volume] in red blood cells by automated count 77.3 fL low: 79fLhi gh: 97fL low MCV 77.3 (L) 79.0 - 97.0 fL 08/21 9:49 PM EDT [facility] [email or web address] [facility] Not Available Not Available 09/01/2024 16:24:25 08/22/19 25 08/21/2024 CBC W Diffe renti al panel , metho d unspe cifie d - Blood MCH [entitic mass] by automated count 23.5 pg low: 26.6pg high: 33pg low MCH 23.5 (L) 26.6 - 33.0 pg 08/21 9:49 PM EDT [facility] [email or web address] [facility] Not Available Not Available 09/01/2024 16:24:25 08/22/19 25 08/21/2024 CBC W Diffe renti al panel , metho d unspe cifie d - Blood MCHC [entitic mass/volume] in red blood cells by automated count 30.3 g/dL low: 31.5g/ dLhigh : 35.7g/ dL low MCHC 30.3 (L) 31.5 - 35.7 g/dL 08/21 9:49 PM EDT [employer] [facility] [employer] LAB[facility] ATORY Not Available Not Available 09/01/2024 16:24:25 08/22/19 25 08/21/2024 CBC W Diffe renti al panel , metho d unspe cifie d - Blood erythrocyte [distwidth] in red blood cells by automated count 16.9 % low: 12.3%h igh: 15.4% high RDW 16.9 (H) 12.3 - 15.4 % 08/21 9:49 PM EDT [employer] [facility] [email or web address] LAB[facility] ATORY Not Available Not Available 09/01/2024 16:24:25 08/22/19 25 08/21/2024 CBC W Diffe renti al panel , metho d unspe cifie d - Blood RDW-SD 47.4 fL low: 37fLhi gh: 54fL RDW-S D 47.4 37.0 - 54.0 fl 08/21 9:49 PM EDT [facility] [email or web address] [facility] Not Available Not Available 09/01/2024 16:24:25 08/22/19 25 08/21/2024 CBC W Diffe renti al panel , metho d unspe cifie d - Blood platelet [entitic mean volume] in blood by automated count 8.6 fL low: 6fLhig h: 12fL MPV 8.6 6.0 - 12.0 fL 08/21 9:49 PM EDT [employer] [facility] [email or web address] LAB[facility] ATORY Not Available Not Available 09/01/2024 16:24:25 08/22/19 25 08/21/2024 CBC W Diffe renti al panel , metho d unspe cifie d - Blood platelets [#/volume] in blood by automated count 433 10*3/ mm3 low: 72389* 3/mm3h igh: 26943* 3/mm3 Plate lets 433 140 - 450 10*3/ mm3 08/21 9:49 PM EDT [facility] [employer] LABOR ATORY Not Available Not Available 09/01/2024 16:24:25 08/22/19 25 08/21/2024 CBC W Diffe josé al panel , metho d unspe cifie d - Blood neutrophils/ leukocytes in blood by automated count 69.8 % low: 42.7%h igh: 76% Neutr ophil % 69.8 42.7 - 76.0 % 08/21 9:49 PM EDT [facility] [employer] LABOR ATORY Not Available Not Available 09/01/2024 16:24:25 08/22/19 25 08/21/2024 CBC W [place] josé al panel , metho d unspe cifie d - Blood lymphocytes/ leukocytes in blood by automated count 16.7 % low: 19.6%h igh: 45.3% low Lymph ocyte % 16.7 (L) 19.6 - 45.3 % 08/21 9:49 PM EDT [facility] [email or web address] [facility] Not Available Not Available 09/01/2024 16:24:25 08/22/19 25 08/21/2024 CBC W [place] josé al panel , metho d unspe cifie d - Blood monocytes/le ukocytes in blood by automated count 6.9 % low: 5%high : 12% Monoc yte % 6.9 5.0 - 12.0 % 08/21 9:49 PM EDT [facility] [employer] [facility] Not Available Not Available 09/01/2024 16:24:25 08/22/19 25 08/21/2024 CBC W Diffe josé al panel , metho d unspe cifie d - Blood eosinophils/ leukocytes in blood by automated count 3.4 % low: 0.3%hi gh: 6.2% Eosin ophil % 3.4 0.3 - 6.2 % 08/21 9:49 PM [facility] [employer] [employer] [facility] Not Available Not Available 09/01/2024 16:24:25 08/22/19 25 08/21/2024 CBC W Diffe renti al panel , metho d unspe cifie d - Blood basophils/le ukocytes in blood by automated count 0.4 % low: 0%high : 1.5% Basop hil % 0.4 0.0 - 1.5 % 08/21 9:[address] [facility] [employer] [facility] Not Available Not Available 09/01/2024 16:24:25 08/22/19 25 08/21/2024 CBC W Diffe renti al panel , metho d unspe cifie d - Blood immature granulocytes /leukocytes in blood by automated count 2.8 % low: 0%high : 0.5% high Immat ure Grans % 2.8 (H) 0.0 - 0.5 % 08/21 9:49 PM EDT [facility] [employer] [facility] Not Available Not Available 09/01/2024 16:24:25 08/22/19 25 08/21/2024 CBC W Diffe renti al panel , metho d unspe cifie d - Blood neutrophils/ leukocytes in blood by automated count 7.35 10*3/ mm3 low: 1.710* 3/mm3h igh: 710*3/ mm3 high Neutr ophil s, Absol [place] 7.35 (H) 1.70 - 7.00 10*3/ mm3 08/21 9:49 PM EDT [employer] [employer] [facility] [employer] [facility] [facility] Not Available Not Available 09/01/2024 16:24:25 08/22/19 25 08/21/2024 CBC W Diffe renti al panel , metho d unspe cifie d - Blood lymphocytes [#/volume] in blood by automated count 1.75 10*3/ mm3 low: 0.710* 3/mm3h igh: 3.110* 3/mm3 Lymph ocyte s, Absol [place] 1.75 0.70 - 3.10 10*3/ mm3 08/21 9:49 PM EDT [employer] [facility] [facility] [employer] LABOR ATORY Not Available Not Available 09/01/2024 16:24:25 08/22/19 25 08/21/2024 CBC W Diffe renti al panel , metho d unspe cifie d - Blood monocytes [#/volume] in blood by automated count 0.72 10*3/ mm3 low: 0.110* 3/mm3h igh: 0.910* 3/mm3 Monoc ytes, Absol [place] 0.72 0.10 - 0.90 10*3/ mm3 08/21 9:[address] [email or web address] LAB[facility] ATORY Not Available Not Available 09/01/2024 16:24:25 08/22/19 25 08/21/2024 CBC W Diffe renti al panel , metho d unspe cifie d - Blood eosinophils [#/volume] in blood by automated count 0.36 10*3/ mm3 low: 010*3/ mm3hig h: 0.410* 3/mm3 Eosin ophil s, Absol [place] 0.36 0.00 - 0.40 10*3/ mm3 08/21 9:49 PM EDT [employer] [facility] [email or web address] LABOR ATORY Not Available Not Available 09/01/2024 16:24:25 08/22/19 25 08/21/2024 CBC W Diffe renti al panel , metho d unspe cifie d - Blood basophils [#/volume] in blood by automated count 0.04 10*3/ mm3 low: 010*3/ mm3hig h: 0.210* 3/mm3 Basop hils, Absol [place] 0.04 0.00 - 0.20 10*3/ mm3 08/21 9:49 PM EDT [email or web address] LABOR ATORY Not Available Not Available 09/01/2024 16:24:25 08/22/19 25 08/21/2024 CBC W Diffe renti al panel , metho d unspe cifie d - Blood immature granulocytes [#/volume] in blood by automated count 0.29 10*3/ mm3 low: 010*3/ mm3hig h: 0.0510 *3/mm3 high Immat ure Grans , Absol [place] 0.29 (H) 0.00 - 0.05 10*3/ mm3 08/21 9:49 PM EDT [employer] [facility] LABOR ATORY Not Available Not Available 09/01/2024 16:24:25 08/22/19 25 08/21/2024 CBC W Diffe renti al panel , metho d unspe cifie d - Blood nucleated erythrocytes /leukocytes [ratio] in blood by automated count 0.2 text: 0.0 - 0.2 /100 WBC nRBC 0.2 0.0 - 0.2 /100 WBC 08/21 9:49 PM EDT [facility] LABOR ATORY Not Available Not Available 09/01/2024 16:24:25 08/22/19 25 08/21/2024 CBC W Diffe renti al panel , metho d unspe cifie d - Blood interpretati on and review of laboratory results Abnorm al Not Available Not Available 16:24:25 08/22/19 25 08/21/2024 Proca lcito basim [Mass /volu me] in Serum or Plasm a procalcitoni n [mass/volume ] in serum or plasma 0.12 NG/mL low: 0NG/mL high: 0.25NG /mL Proca lcito basim 0.12 0.00 - 0.25 ng/mL 08/21 10:18 PM EDT [facility] [employer] LABOR ATORY Not Available Not Available 09/01/2024 [...] 28 day mortal ity risk marker : Leighton sneed in Procal citoni n Result (>80% or <=80%) if Day 0 (or Day 1) and Day 4 values are availa ble. Refer to http:/ /www.[facility]- pct-ca lculat or.com Change in PCT <=80% [...] are avail able. Refer to http: //www .[facility] ms-pc isaias-jone farias or.co m Leighton sneed in PCT <=80% A decre ase of PCT level s below or equal to 80% defin es a posit minh leighton sneed in PCT test resul t repre [...] - 130 mg/dL 08/21 11:31 AM EDT [email or web address] LABOR ATORY Not Available Not Available 09/01/2024 [...] 10.80 10*3/ mm3 08/21 11:03 AM EDT [facility] ATORY Not Available Not Available 09/01/2024 16:24:25 08/22/19 25 08/21/2024 CBC panel - Blood by Autom ated count erythrocytes [#/volume] in blood by automated count 3.76 10*6/ mm3 low: 4.1410 *6/mm3 high: 5.810* 6/mm3 low RBC 3.76 (L) 4.14 - 5.80 10*6/ mm3 08/21 11:03 AM EDT [facility] LABOR ATORY Not Available Not Available 09/01/2024 16:24:25 08/22/19 25 08/21/2024 CBC panel - Blood by Autom ated count hemoglobin [mass/volume ] in blood 8.8 g/dL low: 13g/dL high: 17.7g/ dL low Hemog lobin 8.8 (L) 13.0 - 17.7 g/dL 08/21 11:03 AM EDT [facility] LABOR ATORY Not Available Not Available 09/01/2024 16:24:25 08/22/19 25 08/21/2024 CBC panel - Blood by Autom ated count hematocrit [volume fraction] of blood by automated count 28.9 % low: 37.5%h igh: 51% low Hemat ocrit 28.9 (L) 37.5 - 51.0 % 08/21 11:03 AM EDCRAiLAR ATORY Not Available Not Available 09/01/2024 16:24:25 08/22/19 25 08/21/2024 CBC panel - Blood by Autom ated count MCV [entitic mean volume] in red blood cells by automated count 76.9 fL low: 79fLhi gh: 97fL low MCV 76.9 (L) 79.0 - 97.0 fL 08/21 11:03 AM [employer] ATORY Not Available Not Available 09/01/2024 16:24:25 08/22/19 25 08/21/2024 CBC panel - Blood by Autom ated count MCH [entitic mass] by automated count 23.4 pg low: 26.6pg high: 33pg low MCH 23.4 (L) 26.6 - 33.0 pg 08/21 11:03 AM EDCRAiLAR ATORY Not Available Not Available 09/01/2024 16:24:25 08/22/19 25 08/21/2024 CBC panel - Blood by Autom ated count MCHC [entitic mass/volume] in red blood cells by automated count 30.4 g/dL low: 31.5g/ dLhigh : 35.7g/ dL low MCHC 30.4 (L) 31.5 - 35.7 g/dL 08/21 11:03 AM [employer] ATORY Not Available Not Available 09/01/2024 16:24:25 08/22/19 25 08/21/2024 CBC panel - Blood by Autom ated count erythrocyte [distwidth] in red blood cells by automated count 17 % low: 12.3%h igh: 15.4% high RDW 17.0 (H) 12.3 - 15.4 % 08/21 11:03 AM EDT [facility] AT[facility] Not Available Not Available 09/01/2024 16:24:25 08/22/19 25 08/21/2024 CBC panel - Blood by Autom ated count RDW-SD 47.3 fL low: 37fLhi gh: 54fL RDW-S D 47.3 37.0 - 54.0 fl 08/21 11:03 AM EDT [facility] ATORY Not Available Not Available 09/01/2024 16:24:25 08/22/19 25 08/21/2024 CBC panel - Blood by Autom ated count platelet [entitic mean volume] in blood by automated count 8.2 fL low: 6fLhig h: 12fL MPV 8.2 6.0 - 12.0 fL 08/21 11:03 AM EDT [facility] ATORY Not Available Not Available 09/01/2024 16:24:25 08/22/19 25 08/21/2024 CBC panel - Blood by Autom ated count platelets [#/volume] in blood by automated count 415 10*3/ mm3 low: 82401* 3/mm3h igh: 42157* 3/mm3 Plate lets 415 140 - 450 10*3/ mm3 08/21 11:03 AM EDT [facility] ATORY Not Available Not Available 09/01/2024 16:24:25 [...] - 99 mg/dL 08/21 11:38 AM EDT [facility] AT[facility] Not Available Not Available 09/01/2024 16:24:25 08/22/19 25 08/21/2024 Basic metab olic 1999 panel - Serum or Plasm a urea nitrogen [mass/volume ] in serum or plasma 48 mg/dL low: 8mg/dL high: 23mg/d L high BUN 48 (H) 8 - 23 mg/dL 08/21 11:38 AM EDT [facility] ATORY Not Available Not Available 09/01/2024 16:24:25 08/22/19 25 08/21/2024 Basic metab olic 1999 panel - Serum or Plasm a creatinine [mass/volume ] in serum or plasma 1.35 mg/dL low: 0.76mg /dLhig h: 1.27mg /dL high Creat inine 1.35 (H) 0.76 - 1.27 mg/dL 08/21 11:38 AM EDT [facility] AT[facility] Not Available Not Available 09/01/2024 16:24:25 08/22/19 25 08/21/2024 Basic metab olic 1999 panel - Serum or Plasm a sodium [moles/volum e] in serum or plasma 135 mmol/ L low: 136mmo l/Lhig h: 145mmo l/L low Sodiu m 135 (L) 136 - 145 mmol/ L 08/21 11:38 AM EDT [facility] ATORY Not Available Not Available 09/01/2024 16:24:25 08/22/19 25 08/21/2024 Basic metab olic 1999 panel - Serum or Plasm a potassium [moles/volum e] in serum or plasma 4.7 mmol/ L low: 3.5mmo l/Lhig h: 5.2mmo l/L Potas sium 4.7 3.5 - 5.2 mmol/ L 08/21 11:38 AM EDT [facility] ATORY Not Available Not Available 09/01/2024 16:24:25 08/22/19 25 08/21/2024 Basic metab olic 1999 panel - Serum or Plasm a chloride [moles/volum e] in serum or plasma 96 mmol/ L low: 98mmol /Lhigh : 107mmo l/L low Chlor chava 96 (L) 98 - 107 mmol/ L 08/21 11:38 AM EDT [employer] [facility] [email or web address] LABOR ATORY Not Available Not Available 09/01/2024 16:24:25 08/22/19 25 08/21/2024 Basic metab olic 1999 panel - Serum or Plasm a carbon dioxide, total [moles/volum e] in serum or plasma 28 mmol/ L low: 22mmol /Lhigh : 29mmol /L CO2 28.0 22.0 - 29.0 mmol/ L 08/21 11:38 AM EDT [employer] [employer] [facility] [email or web address] LABOR ATORY Not Available Not Available 09/01/2024 16:24:25 08/22/1908/21/2024 Basic metab olic 1999 panel - Serum or Plasm a calcium [moles/volum e] in specimen 9.4 mg/dL low: 8.6mg/ dLhigh : 10.5mg /dL Calci um 9.4 8.6 - 10.5 mg/dL 08/21 11:38 AM EDT [employer] [facility] [employer]acts ATORY Not Available Not Available 09/01/2024 16:24:25 08/22/19 25 08/21/2024 Basic metab olic 1999 panel - Serum or Plasm a urea nitrogen/cre atinine [mass ratio] in serum or plasma 35.6 low: 7high: 25 high BUN/C reati nine Ratio 35.6 (H) 7.0 - 25.0 08/21 11:38 AM EDT [employer] [facility] [email or web address] LABOR ATORY Not Available Not Available 09/01/2024 16:24:25 08/22/19 25 08/21/2024 Basic metab olic 1999 panel - Serum or Plasm a anion gap in serum or plasma by calculated.3 ions 11 mmol/ L low: 5mmol/ Lhigh: 15mmol /L Anion Gap 11.0 5.0 - 15.0 mmol/ L 08/21 11:38 AM EDT [facility] [email or web address] LAB[facility] ATORY Not Available Not Available 09/01/2024 [...] Available 09/01/2024 16:24:25 08/22/1908/21/2024 Basic metab olic 1999 panel - Serum [...] facto r Not Available Not Available 09/01/2024 16:24:25 08/22/19 [...] - 130 mg/dL 08/21 7:26 AM [facility]IN [facility] Not Available Not Available [...] - 130 mg/dL 08/22 8:55 PM EDT [facility] H stickKIN [employer]ON LABOR ATORY Not Available Not Available 09/01/2024 [...] - 130 mg/dL 08/22 4:[address] [facility]IN [facility] Not Available Not Available [...] mg/dL 08/22 11:[address] [facility] [...] - 130 mg/dL 08/22 7:[address] [...] ATORY Not Available Not Available 09/01/2024 16:24:25 08/23/1908/22/2024 Tropo basim T.car diac [Mass /volu me] in Serum or Plasm a by High sensi tivit y metho d troponin T % delta 13 text: abnorm al if >/= 20% Tropo basim T % Delta 13 Abnor mal if >/= 20% 08/22 12:[address] Not Available Not Available 09/01/2024 16:24:25 08/23/1908/22/2024 Tropo basim T.car diac [Mass /volu me] [...] tion. Not Available Not Available 09/01/2024 16:24:25 08/23/1904 0908/22/2024 Tropo basim TNadinecar diac [Mass /volu me] in Serum or [...] mg/dL 08/23 11:[address] [facility] [...] - 130 mg/dL 08/23 6:[address] [...] mg/dL 08/23 6:[address] [facility] [...] 10.80 10*3/ mm3 08/23 6:21 AM EDT [facility] Not Available Not Available 09/01/2024 16:24:26 08/24/19 25 08/23/2024 CBC W Diffe renti al panel , metho d unspe cifie d - Blood erythrocytes [#/volume] in blood by automated count 4.15 10*6/ mm3 low: 4.1410 *6/mm3 high: 5.810* 6/mm3 RBC 4.15 4.14 - 5.80 10*6/ mm3 08/23 6:21 AM ED[facility] Not Available Not Available 09/01/2024 16:24:26 08/24/19 25 08/23/2024 CBC W Diffe michaelti al panel , metho d unspe cifie d - Blood hemoglobin [mass/volume ] in blood 9.5 g/dL low: 13g/dL high: 17.7g/ dL low Hemog lobin 9.5 (L) 13.0 - 17.7 g/dL 08/23 6:21 AM EDT [facility] Not Available Not Available 09/01/2024 16:24:26 08/24/19 25 08/23/2024 CBC W Diffe renti al panel , metho d unspe cifie d - Blood hematocrit [volume fraction] of blood by automated count 32 % low: 37.5%h igh: 51% low Hemat ocrit 32.0 (L) 37.5 - 51.0 % 08/23 6:21 AM EDT [facility] Not Available Not Available 09/01/2024 16:24:26 08/24/19 25 08/23/2024 CBC W Diffe renti al panel , metho d unspe cifie d - Blood MCV [entitic mean volume] in red blood cells by automated count 77.1 fL low: 79fLhi gh: 97fL low MCV 77.1 (L) 79.0 - 97.0 fL 08/23 6:21 AM EDT [facility] [email or web address] LAB[facility] ATORY Not Available Not Available 09/01/2024 16:24:26 08/24/19 25 08/23/2024 CBC W Diffe renti al panel , metho d unspe cifie d - Blood MCH [entitic mass] by automated count 22.9 pg low: 26.6pg high: 33pg low MCH 22.9 (L) 26.6 - 33.0 pg 08/23 6:21 AM EDT [facility] [email or web address] LABOR ATORY Not Available Not Available 09/01/2024 16:24:26 08/24/19 25 08/23/2024 CBC W Diffe renti al panel , metho d unspe cifie d - Blood MCHC [entitic mass/volume] in red blood cells by automated count 29.7 g/dL low: 31.5g/ dLhigh : 35.7g/ dL low MCHC 29.7 (L) 31.5 - 35.7 g/dL 08/23 6:21 AM EDT [facility] [employer] [facility] [email or web address] LABOR ATORY Not Available Not Available 09/01/2024 16:24:26 08/24/19 25 08/23/2024 CBC W Diffe renti al panel , metho d unspe cifie d - Blood erythrocyte [distwidth] in red blood cells by automated count 16.8 % low: 12.3%h igh: 15.4% high RDW 16.8 (H) 12.3 - 15.4 % 08/23 6:21 AM EDT [employer] [facility] [email or web address] LABOR ATORY Not Available Not Available 09/01/2024 16:24:26 08/24/19 25 08/23/2024 CBC W Diffnaren kumar al panel , metho d unspe cifie d - Blood RDW-SD 46.9 fL low: 37fLhi gh: 54fL RDW-S D 46.9 37.0 - 54.0 fl 08/23 6:21 AM EDT [employer] [facility] [email or web address] LABOR ATORY Not Available Not Available 09/01/2024 16:24:26 08/24/19 25 08/23/2024 CBC W Anthony ukmar al panel , metho d unspe cifie d - Blood platelet [entitic mean volume] in blood by automated count 8.4 fL low: 6fLhig h: 12fL MPV 8.4 6.0 - 12.0 fL 08/23 6:21 AM [facility] Not Available Not Available 09/01/2024 16:24:26 08/24/19 25 08/23/2024 CBC W Anthony kumar al panel , metho d unspe cifie d - Blood platelets [#/volume] in blood by automated count 472 10*3/ mm3 low: 60664* 3/mm3h igh: 04336* 3/mm3 high Plate lets 472 (H) 140 - 450 10*3/ mm3 08/23 6:21 AM EDT [employer] [facility] [email or web address] LABOR ATORY Not Available Not Available 09/01/2024 16:24:26 08/24/19 25 08/23/2024 CBC W Anthony kumar al panel , metho d unspe cifie d - Blood neutrophils/ leukocytes in blood by automated count 72.6 % low: 42.7%h igh: 76% Neutr ophil % 72.6 42.7 - 76.0 % 08/23 6:21 AM EDT [employer] [facility] [email or web address] LABOR ATORY Not Available Not Available 09/01/2024 16:24:26 08/24/19 25 08/23/2024 CBC W Diffe josé al panel , metho d unspe cifie d - Blood lymphocytes/ leukocytes in blood by automated count 16.5 % low: 19.6%h igh: 45.3% low Lymph ocyte % 16.5 (L) 19.6 - 45.3 % 08/23 6:21 AM EDT [facility] [email or web address] LAB[facility] ATORY Not Available Not Available 09/01/2024 16:24:26 08/24/19 25 08/23/2024 CBC W Diffe renti al panel , metho d unspe cifie d - Blood monocytes/le ukocytes in blood by automated count 6 % low: 5%high : 12% Monoc yte % 6.0 5.0 - 12.0 % 08/23 6:21 AM EDT [employer] [employer] [facility] [email or web address] LABOR ATORY Not Available Not Available 09/01/2024 16:24:26 08/24/19 25 08/23/2024 CBC W Diffe renti al panel , metho d unspe cifie d - Blood eosinophils/ leukocytes in blood by automated count 0.6 % low: 0.3%hi gh: 6.2% Eosin ophil % 0.6 0.3 - 6.2 % 08/23 6:21 AM EDT [employer] [employer] [facility] [email or web address] LABOR ATORY Not Available Not Available 09/01/2024 16:24:26 08/24/19 25 08/23/2024 CBC W Diffe renti al panel , metho d unspe cifie d - Blood basophils/le ukocytes in blood by automated count 0.4 % low: 0%high : 1.5% Basop hil % 0.4 0.0 - 1.5 % 08/23 6:21 AM EDT [employer] [employer] LABOR ATORY Not Available Not Available 09/01/2024 16:24:26 08/24/19 25 08/23/2024 CBC W Diffe renti al panel , metho d unspe cifie d - Blood immature granulocytes /leukocytes in blood by automated count 3.9 % low: 0%high : 0.5% high Immat ure Grans % 3.9 (H) 0.0 - 0.5 % 08/23 6:21 AM EDT [facility] LABOR ATORY Not Available Not Available 09/01/2024 16:24:26 08/24/19 25 08/23/2024 CBC W Diffe renti al panel , metho d unspe cifie d - Blood neutrophils/ leukocytes in blood by automated count 9 10*3/ mm3 low: 1.710* 3/mm3h igh: 710*3/ mm3 high Neutr ophil s, Absol [place] 9.00 (H) 1.70 - 7.00 10*3/ mm3 08/23 6:21 AM EDT [employer] stickKIN [employer]ON LABOR ATORY Not Available Not Available 09/01/2024 16:24:26 08/24/19 25 08/23/2024 CBC W Diffe renti al panel , metho d unspe cifie d - Blood lymphocytes [#/volume] in blood by automated count 2.05 10*3/ mm3 low: 0.710* 3/mm3h igh: 3.110* 3/mm3 Lymph ocyte s, Absol [place] 2.05 0.70 - 3.10 10*3/ mm3 08/23 6:21 AM EDT [employer] stickKIN [employer]ON LABOR ATORY Not Available Not Available 09/01/2024 16:24:26 08/24/19 25 08/23/2024 CBC W Diffe renti al panel , metho d unspe cifie d - Blood monocytes [#/volume] in blood by automated count 0.74 10*3/ mm3 low: 0.110* 3/mm3h igh: 0.910* 3/mm3 Monoc ytes, Absol [place] 0.74 0.10 - 0.90 10*3/ mm3 08/23 6:21 AM EDT [employer] [facility] [employer]KIN [employer] LABOR ATORY Not Available Not Available 09/01/2024 16:24:26 08/24/19 25 08/23/2024 CBC W Diffe renti al panel , metho d unspe cifie d - Blood eosinophils [#/volume] in blood by automated count 0.08 10*3/ mm3 low: 010*3/ mm3hig h: 0.410* 3/mm3 Eosin ophil s, Absol [place] 0.08 0.00 - 0.40 10*3/ mm3 08/23 6:21 AM EDT [facility] [employer]KIN [employer] LABOR ATORY Not Available Not Available 09/01/2024 16:24:26 08/24/19 25 08/23/2024 CBC W Diffe renti al panel , metho d unspe cifie d - Blood basophils [#/volume] in blood by automated count 0.05 10*3/ mm3 low: 010*3/ mm3hig h: 0.210* 3/mm3 Basop hils, Absol [place] 0.05 0.00 - 0.20 10*3/ mm3 08/23 6:[address] [employer] stickKIN [employer]ON LABOR ATORY Not Available Not Available 09/01/2024 16:24:26 08/24/19 25 08/23/2024 CBC W Diffe renti al panel , metho d unspe cifie d - Blood immature granulocytes [#/volume] in blood by automated count 0.49 10*3/ mm3 low: 010*3/ mm3hig h: 0.0510 *3/mm3 high Immat ure Grans , Absol [place] 0.49 (H) 0.00 - 0.05 10*3/ mm3 08/23 6:[address] [facility] H Lat[facility]ON LABOR ATORY Not Available Not Available 09/01/2024 16:24:26 08/24/19 25 08/23/2024 CBC W Diffe renti al panel , metho d unspe cifie d - Blood nucleated erythrocytes /leukocytes [ratio] in blood by automated count 0.2 text: 0.0 - 0.2 /100 WBC nRBC 0.2 0.0 - 0.2 /100 WBC 08/23 6:21 AM EDT [employer] [facility] H stickKIN [employer]ON LABOR ATORY Not Available Not Available 09/01/2024 [...] Details Recorded Time 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 979327619 Active 2024 Rigoberto Rucker, BACK SHOE WORKER [address], [place], [address], [employer] 5 09:10:54 Peripheral arterial disease 623398506 Active 2024 Rigoberto Rucker, BACK SHOE WORKER [address], [place], [address], [employer] 5 09:11:40 Paroxysmal atrial fibrillatio n 335081417 Active 2024 Rigoberto Rucker, BACK SHOE WORKER [address], [place], [address], [employer] 5 09:14:46 Type 2 diabetes mellitus with peripheral angiopathy 450573685 Active 2024 Rigoberto Rucker BACK SHOE WORK[employer] [address], [place], [address], [employer] 5 09:16:10 Microcytic anemia 099449225 Active 2024 Rigoberto Rucker, BACK SHOE WORKER [address], [place], [address], [employer] 5 09:16:33 Essential hypertensio n 20844593 Active 2024 Rigoberto Rucker, BACK SHOE WORKER [address], [place], [address], [employer] 5 09:16:50 Body mass index 40+ - severely obese 443950350 Active 2024 Rigoberto Rucker, BACK SHOE WORKER [address], [place], [address], [employer] 5 09:18:52 Mixed anxiety and depressive disorder 982414064 Active 2024 Rigoberto Rucker, BACK SHOE WORKER [address], [place], [address], [employer] 5 09:19:48 Peripheral neuropathy due to type 2 diabetes mellitus 7095428009046 Active 2024 Unyime Eyoh, BACK SHOE WORKER [address], [address], [address], [employer] 5 09:31:19 Muscle weakness 42604562 Active 2024 Unyime Eyoh, BACK SHOE WORKER [address], [address], [address], [place] [employer] 5 22:21:47 Problem Notes None recorded. Medical Equipment None Reported. Allergies Allergen ID Allergen Name Allergen Category Reaction Reaction Severity Criticality Documentation Date Start Date Code Code System Note Provider Name and Address Organization Details Recorded Time 15288 Substance with sulfonami de structure and antibacte rial mechanism of action (substanc e) medicatio n Not available Not available Not available 05/23/2024 80621 8003 SNOMED naima page null, [employer] 5 10:26:26 66709 hydromorp desiree medicatio n Not available Not available Not available 05/23/2024 3423 RxNorm naima page null, [employer] 5 10:26:37 04836 furosemid e medicatio n Not available Not available Not available 05/23/2024 4603 RxNorm naima page null, [employer] 5 10:26:45 13662 morphine medicatio n Not available Not available Not available 05/23/2024 7052 RxNorm naima page null, [employer] 5 10:26:52 60767 sulfameth oxazole / trimethop rim medicatio n Not available Not available Not available 09/01/20242023 95591 RxNorm unrec ogniz ed react ion (text : Nause a And Vomit ing, code: [id number]) (from exter nal sourc e) Not [...] Address Organization Details Last Updated DateTime 05/24/2024 310046.8 g 49.1 kg/m2 190.5 cm Rigoberto Rucker NP [address] [facility] [address], [place], [address], [place] - [employer] [facility] 05/24/2024 08:59:26 Social History None recorded. Functional Status None recorded. Mental Status None recorded. Family History Nothing Reported. Medical History No medical history recorded. Past Encounters Encounter ID Performer Location Encounter Start Date Encounter Closed Date Diagnosis/Indication Diagnosis SNOMED-CT Code Diagnosis ICD10 Code Diagnosis Note [id number] Rigoberto Rucker NP [facility] [address] [facility] [address] [place] [address] 05/24/2024 08:58:51 05/24/2024 22:25:01 Osteomyelitis of forefoot 337443576 M86.9 S/p right fourth toe amputation on 04/23/2024. Patient completed IV Zosyn. Patient advised to keep f/u appointmen t for suture removal. HH SN for wound management and close monitoring . Peripheral arterial disease 752172568 I73.9 continue to foot ulcers, s/p right 4th toe amputation . Continue Plavix, statin and AC. F/U with vascular surgeon. Paroxysmal atrial fibrillation 654545403 I48.0 Continue Metoprolol for rate control and Eliquis for stroke risk reduction. High risk med, monitor for bleeding. Type 2 ryan betes mellitus with peripheral angiopathy 085076219 E11.52 Z79.4 Reports BG controlled . Continue current diabetic regimen, monitor BG closely to assess for lows and assist with insulin adjustment . Consistent carbohydra te. Microcytic anemia [id number] D50.9 Hgb stable per hospital record, continue to optimize dietary iron intake. F/U with PCP for labs monitoring . Essential hypertension [id number] I10 Continue b/p meds, monitor b/p closely, limit salt. HH SN for diseases/m eds management and education. Body mass index 40+ - severely obese [id number] E66.01 Z68.42 BMI 49.1. Discussed at length most important aspect of weight management being calorie balance, and more specifical ly calorie deficit to begin weight loss. Discussed hypothesis of insulin resistance , intermitte nt fasting, and time restricted feeding. Reviewed protocols and recommenda tions. Mixed anxi ety and depressive disorder [id number] F41.9 F32.A Continue Hydroxyzin e and Trazodone. Peripheral neuropathy due to type 2 diabetes mellitus [id number] 107 E11.42 Continue Gabapentin for pain management . Muscle weakness [id number] M62.81 PT/OT eval and treat to address mobility, gait, transfer and ADLs deficits. Fall precaution s. Health Concerns Section Related Observation LastModified by Organization Detai ls LastModified Time None Recorded Concern Status LastModified by Organization Details LastModified Time None Recorded Advance Directives Directive None Recorded Payers Insurance Date Sequence Insurance Name Policy Number Policy Arevalo Covered Member ID Arevalo Member ID Guarantor Name 09/11/2024 1 [facility] (MEDICARE REPLACEMENT/A DVANTAGE - PPO) [id number] Bebeto Christiansen [id number] Bebeto Christiansen Notes Date Note Type Note [...] for suture removal. Patient will benefit from [facility] services to assist with needs. Hospital records reviewed. Medications reviewed and reconciled. Rigoberto Rucker NP [address] [place] [address], [place], [address], [employer] 05/24/2024 22:24:32
--- OUTSIDE RECORDS SUMMARY | 2024-10-05 09:02 | XMS_ITS | Encounter Summary ---
Author Organization [facility] [address] Care Team Providers Care Mds Coordinator Name Role Phone Lincoln Hillman MD Primary Care Provider [phone] Juan Cantu MD Primary Care Provider [phone] Kym Frias RN Unavailable Unavailable Julee Giang MANAGER LAND Unavailable Unavailable Encounter Details Date Type Department Care Team (Late st Contact Info) Description 01/11/2018 Lab Requisition [facility] [address] [place] [address] Cullen Resendez, [address] [place] [address] [id number] Type 2 diabetes mellitus without complications (HCC) Social History Tobacco Use Types Packs/Day [...] Associated Diagnosis Comments CBC WITH DIFF Routine 01/11/2018 5:31 AM EDT Type 2 diabetes mellitus without complications (HCC) BASIC METABOLIC PANEL Routine 01/11/2018 5:31 AM EDT Type 2 diabetes mellitus without complications (HCC) documented in this encounter Results * (ABNORMAL) CBC WITH DIFF (01/11/2018 5:31 AM EDT) [facility] WBC 10.9 4.5 - 11.0 x10(3)/mcL 01/11/2018 6:16 AM EDT [facility] RBC 5.34 4.30 - 5.90 x10(6)/mcL 01/11/2018 6:16 AM EDT [facility] Hgb 14.7 13.2 - 17.3 g/dL 01/11/2018 6:16 AM EDT [facility] Hct 45.9 39.0 - 55.0 % 01/11/2018 6:16 AM EDT [facility] MCV 86.0 81.0 - 101.0 fL 01/11/2018 6:16 AM EDT [facility] MCH 27.5 27.0 - 31.0 pg 01/11/2018 6:16 AM EDT [facility] MCHC 32.0(L) 33.0 - 36.0 g/dL 01/11/2018 6:16 AM EDT [facility] Platelet 284 150 - 400 x10(3)/mcL 01/11/2018 6:16 AM EDT [facility] MPV 9.7 7.4 - 10.4 fL 01/11/2018 6:16 AM EDT [facility] Neut Percent 61.8 % 01/11/2018 6:16 AM EDT [facility] Lymph Percent 28.6 % 01/11/2018 6:16 AM EDT [facility] [place] Percent 6.2 % 01/11/2018 6:16 AM EDT [facility] Eos Percent 2.4 % 01/11/2018 6:16 AM EDT [facility] Baso Percent 0.5 % 01/11/2018 6:16 AM EDT [facility] RDW 40.7 35.1 - 43.9 fL 01/11/2018 6:16 AM EDT [facility] NRBC Auto % 0.0 <=1.0 % 01/11/2018 6:16 AM EDT [facility] Imm Gran% 0.5 % 01/11/2018 6:16 AM EDT [facility] IMMGRAN# 0.1(H) <=0.0 x10(3)/[facility] 01/11/2018 6:16 AM EDT [facility] Neut # 6.7 1.8 - 7.7 x10(3)/[facility] 01/11/2018 6:16 AM EDT [facility] Lymph # 3.1 1.0 - 4.8 x10(3)/[facility] 01/11/2018 6:16 AM EDT [facility] [place] # 0.7 0.0 - 0.8 x10(3)/[facility] 01/11/2018 6:16 AM EDT [facility] Eos# 0.3 0.0 - 0.7 x10(3)/[facility] 01/11/2018 6:16 AM EDT [facility] Baso # 0.1 0.0 - 0.2 x10(3)/[facility] 01/11/2018 6:16 AM EDT [facility] Blood VENOUS BLOOD / Unknown 01/11/2018 5:31 AM EDT 01/11/2018 5:56 AM EDT us Cullen Resendez DO HEMATOLOGY ORDERABLES Final Resu lt [facility] [address] [place] [id number] * (ABNORMAL) BASIC METABOLIC PANEL (01/11/2018 5:31 AM EDT) Sodium 138 137 - 145 mmol/L 01/11/2018 6:48 AM EDT [facility] Potassium 4.0 3.5 - 5.1 mmol/L 01/11/2018 6:48 AM EDT [facility] Chloride 100 98 - 107 mmol/L 01/11/2018 6:48 AM EDT [facility] Total CO2 34(H) 22 - 30 mmol/L 01/11/2018 6:48 AM EDT [facility] Anion Gap 4(L) 7 - 16 mmol/L 01/11/2018 6:48 AM EDT [facility] Calcium 8.9 8.4 - 10.3 mg/dL 01/11/2018 6:48 AM EDT [facility] BUN 20 9 - 20 mg/dL 01/11/2018 6:48 AM EDT [facility] Creatinine 0.82 0.66 - 1.25 mg/dL 01/11/2018 6:48 AM EDT [facility] GFR Afr Am 114 >=60 mL/min/1.7 3 m2 01/11/2018 6:48 AM EDT [facility] GFR Non Afr Am 99 >=60 mL/min/1.7 3 m2 01/11/2018 6:48 AM EDT [facility] Comment: This estimated GFR [...] nutritional status or muscle mass. Glucose Lvl 183(H) 60 - 99 mg/dL 01/11/2018 6:48 AM EDT [facility] Blood VENOUS BLOOD / Unknown 01/11/2018 5:31 AM EDT 01/11/2018 5:57 AM EDT Cullen Resendez DO CHEMISTRY ORDERABLES Final Resul t [facility] [address] [facility] [place] [id number] documented in this encounter Visit Diagnoses Diagnosis Type 2 diabetes mellitus without complications (HCC) Type II or unspecified type diabetes mellitus without mention of complication, not stated as uncontrolled documented in this encounter Care Teams Mds Coordinator Relationship Specialty Start Date End Date Lincoln Hillman MD [address] [place] [address] PCP - General Family Medicine 03/25/18 08/26/18 Juan Cantu MD [address] [place], [place] [address] [address] PCP - General Internal Medicine 08/27/18 03/27/24 Kym Frias RNwell drill operator helper cable tool Team 07/25/19 08/24/19 Julee Giang LCSW Care Transition Team 01/06/20 0 documented as of this encounter
--- OUTSIDE RECORDS SUMMARY | 2024-10-05 09:02 | XMS_ITS | Encounter Summary ---
Author Organization [facility] [place] [address] Care Team Providers Care Hair Rooting Machine Operator Name Role Phone Lincoln Hillman MD Primary Care Provider [phone] Juan Cantu MD Primary Care Provider [phone] Kym Frias RN Unavailable Unavailable Julee Giang RACK LOADER Unavailable Unavailable Encounter Details Date Type Department Care Team (Late st Contact Info) Description 02/08/2018 Lab Requisition [facility] [address] [place] [address] Cullen Resendez, [address] [place] [address] [phone] Heart failure (HCC) Social History Tobacco Use Types Packs/Day [...] Associated Diagnosis Comments CBC WITH DIFF Routine 02/08/2018 6:07 AM EDT Heart failure (HCC) BASIC METABOLIC PANEL Routine 02/08/2018 6:07 AM EDT Heart failure (HCC) documented in this encounter Results * (ABNORMAL) CBC WITH DIFF (02/08/2018 6:07 AM EDT) WBC 7.3 4.5 - 11.0 x10(3)/mcL 02/08/2018 6:37 AM EDT [facility] RBC 5.06 4.30 - 5.90 x10(6)/mcL 02/08/2018 6:37 AM EDT [facility] Hgb 13.9 13.2 - 17.3 g/dL 02/08/2018 6:37 AM EDT [facility] Hct 43.2 39.0 - 55.0 % 02/08/2018 6:37 AM EDT [facility] MCV 85.4 81.0 - 101.0 fL 02/08/2018 6:37 AM EDT [facility] MCH 27.5 27.0 - 31.0 pg 02/08/2018 6:37 AM EDT [facility] MCHC 32.2(L) 33.0 - 36.0 g/dL 02/08/2018 6:37 AM EDT [facility] Platelet 260 150 - 400 x10(3)/mcL 02/08/2018 6:37 AM EDT [facility] MPV 9.8 7.4 - 10.4 fL 02/08/2018 6:37 AM EDT [facility] Neut Percent 57.4 % 02/08/2018 6:37 AM EDT [facility] Lymph Percent 33.2 % 02/08/2018 6:37 AM EDT [facility] [place] Percent 5.9 % 02/08/2018 6:37 AM EDT [facility] Eos Percent 2.6 % 02/08/2018 6:37 AM EDT [facility] Baso Percent 0.4 % 02/08/2018 6:37 AM EDT [facility] RDW 40.1 35.1 - 43.9 fL 02/08/2018 6:37 AM EDT [facility] NRBC Auto % 0.0 <=1.0 % 02/08/2018 6:37 AM EDT [facility] Imm Gran% 0.5 % 02/08/2018 6:37 AM EDT [facility] IMMGRAN# 0.0 <=0.0 x10(3)/mcL 02/08/2018 6:37 AM EDT [facility] Neut # 4.2 1.8 - 7.7 x10(3)/[facility] 02/08/2018 6:37 AM EDT [facility] Lymph # 2.4 1.0 - 4.8 x10(3)/[facility] 02/08/2018 6:37 AM EDT [facility] [place] # 0.4 0.0 - 0.8 x10(3)/[facility] 02/08/2018 6:37 AM EDT [facility] Eos# 0.2 0.0 - 0.7 x10(3)/[facility] 02/08/2018 6:37 AM EDT [facility] Baso # 0.0 0.0 - 0.2 x10(3)/[facility] 02/08/2018 6:37 AM EDT [facility] Blood VENOUS BLOOD / Unknown Venipuncture / Unknown 02/08/2018 6:07 AM EDT 02/08/2018 6:26 AM EDT us Cullen Resendez DO HEMATOLOGY ORDERABLES Final Resu lt [facility] [address] [place] [address] * (ABNORMAL) BASIC METABOLIC PANEL (02/08/2018 6:07 AM EDT) Sodium 140 137 - 145 mmol/L 02/08/2018 7:09 AM EDT [facility] Potassium 4.2 3.5 - 5.1 mmol/L 02/08/2018 7:09 AM EDT [facility] Chloride 99 98 - 107 mmol/L 02/08/2018 7:09 AM EDT [facility] Total CO2 34(H) 22 - 30 mmol/L 02/08/2018 7:09 AM EDT [facility] Anion Gap 7 7 - 16 mmol/L 02/08/2018 7:09 AM EDT [facility] Calcium 9.5 8.4 - 10.3 mg/dL 02/08/2018 7:09 AM EDT [facility] BUN 13 9 - 20 mg/dL 02/08/2018 7:09 AM EDT [facility] Creatinine 0.54(L) 0.66 - 1.25 mg/dL 02/08/2018 7:09 AM EDT [facility] GFR Afr Am 136 >=60 mL/min/1.7 3 m2 02/08/2018 7:09 AM EDT [facility] GFR Non Afr Am 117 >=60 mL/min/1.7 3 m2 02/08/2018 7:09 AM EDT [facility] Comment: This estimated GFR [...] nutritional status or muscle mass. Glucose Lvl 151(H) 60 - 99 mg/dL 02/08/2018 7:09 AM EDT [facility] Blood VENOUS BLOOD / Unknown 02/08/2018 6:07 AM EDT 02/08/2018 6:27 AM EDT Cullen Resendez DO CHEMISTRY ORDERABLES Final Resul t [facility] [address] [facility] [place] [id number] documented in this encounter Visit Diagnoses Diagnosis Heart failure (HCC) Heart failure, unspecified documented in this encounter Care Teams Hair Rooting Machine Operator Relationship Specialty Start Date End Date Lincoln Hillman MD [address] [place] [address] PCP - General Family Medicine 03/25/18 08/26/18 Juan Cantu MD [address] [facility] [address] PCP - General Internal Medicine 08/27/18 03/27/24 Kym Frias, foley artist Team 07/25/19 08/24/19 Julee Giang LCSW Care Transition Team 01/06/20 0 documented as of this encounter
--- OUTSIDE RECORDS SUMMARY | 2024-10-05 09:02 | XMS_ITS | Encounter Summary ---
Author Organization [facility] [place] [address] Care Team Providers Care Motion Picture Equipment Machinist Name Role Phone Lincoln Hillman MD Primary Care Provider [phone] Juan Cantu MD Primary Care Provider [phone] Kym Frias RN Unavailable Unavailable Julee Giang QUALITY IMPROVEMENT CONSULTANT Unavailable Unavailable Encounter Details Date Type Department Care Team (Late st Contact Info) Description 01/07/2018 Lab Requisition [facility] [address] [place], [place] [id number] Cullen Resendez, [address] [place] [address] Type 2 diabetes mellitus without complications (HCC) [...] Associated Diagnosis Comments CBC WITH DIFF Routine 01/07/2018 6:31 AM EDT Type 2 diabetes mellitus without complications (HCC) BASIC METABOLIC PANEL Routine 01/07/2018 6:31 AM EDT Type 2 diabetes mellitus without complications (HCC) documented in this encounter Results * (ABNORMAL) CBC WITH DIFF (01/07/2018 6:31 AM EDT) WBC 13.1(H) 4.5 - 11.0 x10(3)/[facility] 01/07/2018 8:48 AM EDT [facility] RBC 5.24 4.30 - 5.90 x10(6)/[facility] 01/07/2018 8:48 AM EDT [facility] Hgb 14.8 13.2 - 17.3 g/dL 01/07/2018 8:48 AM EDT [facility] Hct 44.6 39.0 - 55.0 % 01/07/2018 8:48 AM EDT [facility] MCV 85.1 81.0 - 101.0 fL 01/07/2018 8:48 AM EDT [facility] MCH 28.2 27.0 - 31.0 pg 01/07/2018 8:48 AM EDT [facility] MCHC 33.2 33.0 - 36.0 g/dL 01/07/2018 8:48 AM EDT [facility] Platelet 262 150 - 400 x10(3)/[facility] 01/07/2018 8:48 AM EDT [facility] MPV 10.6(H) 7.4 - 10.4 fL 01/07/2018 8:48 AM EDT [facility] Neut Percent 70.3 % 01/07/2018 8:48 AM EDT [facility] Lymph Percent 20.8 % 01/07/2018 8:48 AM EDT [facility] [place] Percent 6.2 % 01/07/2018 8:48 AM EDT [facility] Eos Percent 2.5 % 01/07/2018 8:48 AM EDT [facility] RDW 42.1 35.1 - 43.9 fL 01/07/2018 8:48 AM EDT [facility] Neut # 9.2(H) 1.8 - 7.7 x10(3)/[facility] 01/07/2018 8:48 AM EDT [facility] Lymph # 2.7 1.0 - 4.8 x10(3)/[facility] 01/07/2018 8:48 AM EDT [facility] [place] # 0.8 0.0 - 0.8 x10(3)/mcL 01/07/2018 8:48 AM EDT [facility] Eos# 0.3 0.0 - 0.7 x10(3)/[facility] 01/07/2018 8:48 AM EDT [facility] Baso # 0.0 0.0 - 0.2 x10(3)/[facility] 01/07/2018 8:48 AM EDT [facility] Blood VENOUS BLOOD / Unknown 01/07/2018 6:31 AM EDT 01/07/2018 7:25 AM EDT us Cullen Resendez DO HEMATOLOGY ORDERABLES Final Resu lt [facility] [address] [place], [place] [id number] * (ABNORMAL) BASIC METABOLIC PANEL (01/07/2018 6:31 AM EDT) Sodium 137 137 - 145 mmol/L 01/07/2018 9:42 AM EDT [facility] Potassium 4.1 3.5 - 5.1 mmol/L 01/07/2018 9:42 AM EDT [facility] Chloride 100 98 - 107 mmol/L 01/07/2018 9:42 AM EDT [facility] Total CO2 28 22 - 30 mmol/L 01/07/2018 9:42 AM EDT [facility] Anion Gap 9 7 - 16 mmol/L 01/07/2018 9:42 AM EDT [facility] Calcium 9.1 8.4 - 10.3 mg/dL 01/07/2018 9:42 AM EDT [facility] BUN 18 9 - 20 mg/dL 01/07/2018 9:42 AM EDT [facility] Creatinine 0.70 0.66 - 1.25 mg/dL 01/07/2018 9:42 AM EDT [facility] GFR Afr Am 122 >=60 mL/min/1.7 3 m2 01/07/2018 9:42 AM EDT [facility] GFR Non Afr Am 105 >=60 mL/min/1.7 3 m2 01/07/2018 9:42 AM EDT [facility] Comment: This estimated GFR was calculated [...] nutritional status or muscle mass. Glucose Lvl 239(H) 60 - 99 mg/dL 01/07/2018 9:42 AM EDT [facility] Blood VENOUS BLOOD / Unknown 01/07/2018 6:31 AM EDT 01/07/2018 7:25 AM EDT us Cullen Resendez DO CHEMISTRY ORDERABLES Final Resul t [facility] [address] [place] [address] documented in this encounter Visit Diagnoses Diagnosis Type 2 diabetes mellitus without complications (HCC) Type II or unspecified type diabetes mellitus without mention of complication, not stated as uncontrolled documented in this encounter Care Teams Motion Picture Equipment Machinist Relationship Specialty Start Date End Date Lincoln Hillman MD [address] [facility] [address] [place] [address] [place] [address] PCP - General Family Medicine 03/25/18 08/26/18 Juan Cantu MD [address] [place] [address] [place] [address] PCP - General Internal Medicine 08/27/18 03/27/24 Kym Frias RNinstructional technology facilitator Team 07/25/19 08/24/19 Julee Giang LCSW Care Transition Team 01/06/20 0 documented as of this encounter
--- OUTSIDE RECORDS SUMMARY | 2024-10-05 09:02 | XMS_ITS | Encounter Summary ---
Author Organization [facility] [place] [address] Care Team Providers Care Pilot Plant Research Technician Name Role Phone Lincoln Hillman MD Primary Care Provider [phone] Juan Cantu MD Primary Care Provider [phone] Kym Frias RN Unavailable Unavailable Julee Giang CLINICAL WRITER Unavailable Unavailable Encounter Details Date Type Department Care Team (Late st Contact Info) Description 02/11/2018 Lab Requisition [facility] [address] [facility] [place] [id number] Cullen Resendez, [address] [place] [address] Cardiac arrhythmia Social History Tobacco Use Types Packs/Day Years [...] Procedure Name Priority Date/Time Associated Diagnosis Comments LIPID SCREEN Routine 02/11/2018 7:23 AM EDT Cardiac arrhythmia documented in this encounter Results * (ABNORMAL) LIPID SCREEN (02/11/2018 7:23 AM EDT) Cholesterol 182 <=200 mg/dL 02/11/2018 8:58 AM EDT [facility] Comment: < 200 Desirable 200 - 239 Borderline High >= 240 High Triglyceride 213(H) <=150 mg/dL 02/11/2018 8:58 AM EDT [facility] HDL 36(L) 40 - 60 mg/dL 02/11/2018 8:58 AM EDT [facility] LDL Calculated 103 mg/dL 02/11/2018 8:58 AM EDT [facility] Comment: Desireable LDL Cholesterol: <130 mg/dL Borderline High Risk LDL Chol: 130-159 mg/dL High Risk LDL Cholesterol: >=160 mg/dL Coronary Risk Factor 19.8 02/11/2018 8:58 AM EDT [facility] Comment: Coronary Risk Factor......Male....Female 1/2 Average...............29.2....30.6 Average...................20.1....22.5 2X Average................10.5....14.2 3X Average................ 4.3.... 9.1 Blood VENOUS BLOOD / Unknown 02/11/2018 7:23 AM EDT 02/11/2018 7:36 AM EDT Cullen Resendez DO CHEMISTRY ORDERABLES Final Resul t Performing Organization Address City/State/[facility] Co de Phone Number [facility] [address] [place] [address] documented in this encounter Visit Diagnoses Diagnosis Cardiac arrhythmia Cardiac dysrhythmia, unspecified documented in this encounter Care Teams Pilot Plant Research Technician Relationship Specialty Start Date End Date Lincoln Hillman MD [address] [place] [address] PCP - General Family Medicine 03/25/18 08/26/18 Juan Cantu MD [address] [facility] [place] [address] PCP - General Internal Medicine 08/27/18 03/27/24 Kym Frisa RNperl software engineer Team 07/25/19 08/24/19 Julee Giang LCSW Care Transition Team 01/06/20 0 documented as of this encounter
--- OUTSIDE RECORDS SUMMARY | 2024-10-05 09:03 | XMS_ITS | Clinical Summary ---
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 07/31/19 23 Active PARoxetine (PAXIL) 20 mg Oral TabletIndications :MDD (major depressive disorder), recurrent episode, moderate (HCC) Take 1 Tablet by mouth daily. 90 Tablet 3 05/20/19 24 Active gabapentin (NEURONTIN) 600 mg Oral TabletIndications :Type 2 diabetes mellitus with peripheral neuropathy (HCC) Take 1 Tablet by mouth 3 times daily. 270 Tablet 3 05/20/19 24 Active carvediloL (COREG) 12.5 mg Oral TabletIndications :hypertension Take 1 Tablet by mouth 2 times daily. Indications: high blood pressure 180 Tablet 2 07/10/19 24 Active losartan (COZAAR) 50 mg Oral Tablet Take 1 Tablet by mouth daily. 90 Tablet 3 09/04/19 24 Active clopidogreL (PLAVIX) 75 mg Oral Tablet Take 1 Tablet by mouth daily. 90 Tablet 3 09/04/19 24 Active fUROsemide (LASIX) 40 mg Oral Tablet Take 1 Tablet by mouth daily. 30 Tablet 2 11/03/19 24 Active Additional Information Patient taking differently:40 mg Oral DAILY,patient taking prn, Reason: Other, Reported on 11/12/2023 HYDROcodone-aceta minophen (NORCO) 5-325 mg Oral Tablet Take 1 Tablet by mouth 2 times daily as needed for Acute Pain (R52). 20 Tablet 11/02/19 24 Active Melatonin 3 mg Oral Tablet Take 2 Tablets by mouth nightly as needed (sleep). 30 Tablet 11/02/19 24 Active zinc oxide-cod liver oil (DESITIN) 40 % Top Paste Apply 5 g topically as needed. 1 Each 2 11/02/19 24 Active insulin glargine (LANTUS) 100 unit/mL (3 mL) SubQ Insulin Pen Subcutaneous (Inject under the skin) 30 Units 2 times daily. 5 Each 11/02/19 24 Active insulin lispro (HUMALOG) 100 unit/mL SubQ Insulin Pen Subcutaneous (Inject under the skin) 5 Units 3 times daily (with meals). 5 Each 11/02/19 24 Active cefepime HCl in dextrose 5 % (CEFEPIME IN D5W) 2 gram/50 mL IV Piggyback Inject 2 g into the vein every 8 hours. 21 Each 11/02/19 24 Active acetaminophen (TYLENOL) 500 mg Oral Tablet Take 500 mg by mouth every 6 hours as needed for Pain. Active glipiZIDE (GLUCOTROL) 10 mg Oral Tablet Take 10 mg by mouth 2 times daily (with meals). 11/06/19 24 Active ELIQUIS 5 mg Oral TabletIndications :Chronic atrial fibrillation (HCC) Take 1 Tablet by mouth 2 times daily. 180 Tablet 3 12/07/19 24 Active tiZANidine (ZANAFLEX) 4 mg Oral TabletIndications :muscle spasm Take 1 Tablet by mouth 4 times daily as needed for Muscle spasms. Indications: muscle spasm 360 Tablet 1 12/31/19 24 Active ondansetron (ZOFRAN-ODT) 4 mg Oral Tablet, Rapid DissolveIndicatio ns:Nausea Take 1 Tablet by mouth every 6 hours as needed for Nausea. 15 Tablet 2 02/25/20 24 Active Active Problems Problem Noted Date Diagnosed Date Asymptomatic bacteriuria 10/26/2023 Assessment & Plan (10/27/2023 7:24 PM EDT): UCX with GPR suggestive of diphtheroids per Micro Assessment & Plan (10/26/2023 2:43 PM EDT): 10/26/2023: Urine culture grew 25,000 colonies gram-negative rods, likely diphtheroids. No urinary symptoms Covered with cefepime Stage 3 acute kidney injury 10/25/2023 Assessment & Plan (10/29/2023 11:04 PM EDT): Secondary to septic shock. Now resolved. Baseline creatinine around 0.9 Creatinine on admission 3.1 KDIGO 3 Creatinine back to baseline as of 10/24 Assessment & Plan (10/26/2023 2:01 PM EDT): Secondary to septic shock. Now resolved. Will initiate Lasix given swelling Creatinine Date/Time Value Ref Range Status 10/26/2023 07:13 AM 0.60 0.52 - 1.25 mg/dL Final 10/25/2023 06:14 AM 0.90 0.52 - 1.25 mg/dL Final 10/24/2023 06:25 AM 1.30 (H) 0.52 - 1.25 mg/dL Final 10/23/2023 04:03 AM 3.10 (H) 0.52 - 1.25 mg/dL Final 10/22/2023 01:48 PM 5.10 (H) 0.52 - 1.25 mg/dL Final 08/22/2022 12:00 AM 0.7 0.6 - 1.3 MG/DL Final 09/29/2019 12:00 AM 1.7 (A) 0.6 - 1.3 MG/DL Final 12/21/2017 06:11 AM 0.9 0.66 - 1.25 MG/DL Final 12/15/2017 06:01 AM 0.9 0.66 - 1.25 MG/DL Final 09/08/2017 11:40 AM 0.9 0.66 - 1.25 MG/DL Final Cellulitis of lower extremity 10/22/2023 Assessment & Plan (11/02/2023 2:59 PM EDT): Completed Cefepime under ID recommendations. Assessment & Plan (10/26/2023 1:58 PM EDT): Currently on cefepime... arterial Dopplers to be performed soon per infectious disease Assessment & Plan (11/02/2023 4:49 PM EDT): 10/23/2023: Assessment: 63-year-old male admitted with bilateral lower extremity cellulitis. Patient had been following in the [facility] wound clinic with Dr. Fischer, but has not been seen since June 2023. Presented to the ED with worsening swelling, pain, and redness of his bilateral lower extremities. Patient admitted with sepsis and started on empiric cefepime and vancomycin. Wound cultures from 2022 had growth of Serratia marcescens, MSSA, Staph simulans, and Pseudomonas aeruginosa. He has a history of MRSA infection in 2007, but recent cultures have been MSSA. Plan: Continue cefepime. This will cover most recent microbiology. Okay to stop vancomycin today. Follow-up with blood and wound cultures and adjust antibiotics as needed. Wound care has been consulted. X-rays of bilateral feet do not show any concerning changes of osteomyelitis at this time. 10/26/2023: Continue cefepime. Suspect that he has PAD in the right lower extremity as well. Will get ABIs on Thursday during his next dressing change Continue wound care PT/OT recommending SNF 10/28/2023: Currently on cefepime due to history of Pseudomonas, MSSA, Serratia Scheduled for ABIs Will need to address any blockages or reduced blood flow prior to starting formulating final plan of care for discharge Continue cefepime as ordered 10/29/2023: Currently on cefepime, tolerating without any adverse side effects Refused ABIs Continue cefepime as prescribed Dr. Day plans on seeing Niall today or tomorrow 10/30/2023: Currently on cefepime for history of Pseudomonas, MSSA, Serratia and wounds Bilateral foot x-ray negative for osteomyelitis Attempted to get a CTA instead of ABIs, refused CTA as he is too claustrophobic States he will do the ABIs if he is premedicated, hospitalist order dose of Dilaudid prior to JADE measurement White count 13.1 today, down from 14.9 yesterday 11/02/2023: White blood count 10.4 today Remains afebrile Currently on cefepime Dr. Day saw Niall today 7 additional days of cefepime at discharge Needs close follow-up in wound center See detailed orders under treatment plan Assessment & Plan (10/22/2023 5:50 PM EDT): Severe. Vancomycin and Zosyn. Nothing clearly to culture. Wound therapy, leg wraps, PT OT, Septic shock 10/22/2023 Assessment & Plan (10/26/2023 2:04 PM EDT): Questionable septic shock. His BP cuff is unreliable. He has some dizziness. Resolved in ICU predominatly with IVF. Short term peripheral levophed used. Assessment & Plan (10/22/2023 5:57 PM EDT): Questionable septic shock. His BP cuff is unreliable. He has some dizziness. 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 Septic shock 10/22/2023 Assessment & Plan (10/27/2023 7:24 PM EDT): Post IV fluids. Antibiotics. Very short-lived Levophed peripherally in the ICU. Septic shock resolved. Assessment & Plan (10/26/2023 1:59 PM EDT): Post IV fluids. Antibiotics. Very short-lived Levophed peripherally in the ICU. Septic shock resolved. Assessment & Plan (10/22/2023 5:50 PM EDT): Sepsis Evaluation: [place] body weight: 84.5 kg (186 lb 4.6 oz) Adjusted ideal body weight: 129.1 kg (284 lb 9.8 oz) Weight: (!) 432 lb 1.6 oz (196 kg) Lab Results Component Value Date WBC 17.2 (H) 10/22/2023 Patient Vitals for the past 6 hrs: BP Temp Temp src Pulse Resp SpO2 Height Weight 10/22/23 1700 (!) 81/63 -- -- 63 16 98 % -- -- 10/22/23 1630 (!) 75/41 -- -- 72 15 93 % -- -- 10/22/23 1612 -- -- -- 68 14 -- -- -- 10/22/23 161 -- -- 84 (!) 21 (!) 89 % -- -- 10/22/23 1600 -- -- 76 -- 100 % 6' 3 (1.905 m) (!) 432 lb 1.6 oz (196 kg) 10/22/23 1542 (!) 8568 -- -- -- -- -- -- -- 10/22/23 1503 -- (!) 96.4 F (35.8 C) Oral 66 -- 94 % -- -- 10/22/23 1502 (!) 82/60 -- -- -- -- -- -- -- 10/22/23 1432 -- -- -- 71 -- 93 % -- -- 10/22/23 1431 (!) 83/62 -- -- -- -- -- -- -- 10/22/23 1405 (!) 82/65 -- -- 66 -- 95 % -- -- 10/22/23 1342 -- -- -- 67 -- 94 % -- -- 10/22/23 1340 (!) 145/91 -- -- -- -- -- -- -- 10/22/23 1317 (!) 73/40 -- -- 74 18 96 % 6' 3 (1.905 m) (!) 442 lb 7.4 oz (200.7 kg) SIRS [x]WBC >12 or <4 []RR>20 [x]T >100.4 or <96.4 []HR > 90 [] other Lab Results Component Value Date LACTA 1.4 10/22/2023 LACTA 0.7 12/20/2019 LACTA 1.5 07/20/2019 CREATININE 5.10 (H) 10/22/2023 LABBILI 0.5 10/22/2023 INR 1.2 12/19/2015 PLT 277 10/22/2023 ORGAN DYSFN: []Lactate >2 [x]Creatinine >2 []T bili >2 []INR >1.5 []Platelets <100 [] Vent/Bipap/Cpap [] Other Vitals: 10/22/23 1340 10/22/23 1405 10/22/23 1431 10/22/23 1502 BP MAP (mmHg): 107 73 70 66 10/22/23 1542 10/22/23 1600 10/22/23 1610 10/22/23 1630 BP MAP (mmHg): 75 79 79 52 10/22/23 1700 BP MAP (mmHg): 70 SHOCK []Lactate>4 or [x]SBP<90 or []DBP<40 or []MAP<65 or []other Lab Results Component Value Date/Time NITRITE Negative 05/23/2021 10:06 PM LEUKOCYTESUR Negative 05/23/2021 10:06 PM Systemic Anti-Infective Meds (IV, IM, Digestive, Respiratory, Rectal) (1d ago, onward) Start Dose/Rate Route Frequency Ordered Stop 10/22/23 1400 vancomycin (VANCOCIN) 2,000 mg in sodium chloride 0.9 % 500 mL IVPB 20 mg/kg 200.7 kg 133.3 mL/hr over 3.75 Hours Intravenous ONCE 10/22/23 1333 10/23/23 0200 Sepsis Evaluation:* * Lack of meeting SIRS criteria does not necessarily exclude sepsis * Septic Shock = Sepsis + [LACTATE >= 4 or hypotension (<90/40 or MAP <65)] Infection: cellulitis SIRS criteria: Temp > 100.9 or < 96.8 and WBC > 12 or < 4 or Bands >10% Sepsis organ dysfunction:Cr >2.0 / Urine output <0.5 ml/kg/hour for 2 consecutive hours Sepsis with organ dyfunction: yes Sepsis time : 1357 (Patient met the diagnosis of sepsis when the patient both screened for sepsis and had an infection diagnosis) ----- Septic Shock Criteria: yes (Time: Same as above) Physical Exam: Cap refill < 2 sec, peripheral pulses normal; skin warm,dry,& normal color? yes qSOFA (score of >=2 are associated with 3-14 fold increase in in-hospital mortality in sepsis) RR>= 22 Resp: 16 GCS< 15 [place] Coma Scale Score: 15 SBP< 100 mmHg BP: (!) 81/63 qSOFA score 2-3? no ----- Assessment / Plan : The patient demonstrates having Sepsis. Sepsis is defined as life threatening organ dysfunction caused by a dysregulated host response to infection. Sepsis w/ organ dysfunction: Diagnostics: Draw lactate level, Draw blood culture, and Administer broad spectrum antibiotic Antibiotics: cefepime and vancomycin IVF: A 30mg/kg fluid bolus was not given, but instead the patient received 2000 ml ns, and 600ml of antibiotic totaling 2600 ml . Because congestive heart failure at time of admission and limited fluid administration would be appropriate. Also his blood pressure cuff is likely inaccurate. Septic Shock: IVF: Fluid bolus of 30ml/KG NOT given due to: Concern for fluid overload; administer 2000 ml bolus and re-evaluate patient Pressors: norepinephrine Septic Shock Reassessment (Shock time + 6hr) : 1956 (re-eval must be before this time) The patient likely meets some criteria for septic shock. His blood pressures are inaccurate. We will start peripheral Levophed. He got <30 mg/kg fluid bolus due to CHF. Source is cellulitis. Time of septic shock is 1357. He has received cefepime, Flagyl, vancomycin. IV fluids including vancomycin and metronidazole and cefepime yield 2600 cc. Ulcer of extremity due to chronic venous insuffi ciency 05/19/2023 Overview (05/19/2023): Patient was referred to the [facility] ED. I personally contacted the ED. Shortness of breath 05/19/2023 Overview (05/19/2023): Referred to the ED. Absence of toe of left foot 05/19/2023 Type 2 diabetes mellitus with peripheral vascula r disease 05/19/2023 Statin declined 05/19/2023 Morbid obesity with BMI of 50.0-59.9, adult 11/2022 Overview (08/18/2022): Met with nutrition services at hospital. Left arm pain 07/14/2022 Assessment & Plan (07/25/2022 10:35 PM EDT): Niall complained of left arm pain today. It extended from the axilla to the forearm. The pain was most localized at the insertion site of the PICC line. Arm was not swollen. There is no surrounding erythema and no purulent drainage Left upper extremity venous Doppler negative for thrombosis. 07/17 No complaints of pain at PICC line site today. Localized pain at insertion site of PICC line. PICC is functioning properly and there is no evidence of DVT Resolved Anxiety and depression 07/12/2022 Assessment & Plan (07/13/2022 12:05 PM EDT): Niall tells me he has been having a lot of anxiety during his hospitalization. He tells me he has been needing ativan, but also told me today he felt too drugged up after I was given ativan today. 07/13: Niall said that he woke up at 4am today with his skin crawling. He said he has issues with claustrophobia and feels cooped up in the hospital. He tells me that he takes ativan as needed at home, though this is not listed on his inspect report. Plan: Continue Paxil Ativan was stopped in the hospital. This is not a home medication, so we will not continue it. Added hydroxyzine as needed for anxiety Peripheral neuropathy 07/12/2022 Assessment & Plan (07/12/2022 4:48 PM EDT): Continue gabapentin 600mg TID Decreased functional mobility 07/12/2022 Assessment & Plan (07/25/2022 10:35 PM EDT): During his hospitalization, Niall was seen by PT and OT. They noted him to have decreased functional mobility, balance, activity tolerance, and endurance. They recommended he be admitted to SNF to continue PT and OT. Plan: Admit to [facility] for continued PT/OT Anticipate discharge to home next week after completion of IV antibiotics Peripheral artery disease 07/08/2022 Overview (08/18/2022): Status post HEALTH INSURANCE ADJUSTER left anterior tibial artery and left popliteal artery. Food Service Agent Dr. Espinoza. Assessment & Plan (10/30/2023 9:20 PM EDT): On Eliquis and Plavix chronically. Plavix was on hold due to some bleeding issues out of the wound. Resumed Plavix 10/27 as hemoglobin stable. Continue Eliquis. JADE study pending if patient amenable. CTA lower extremity was also offered by ID, patient refused. Assessment & Plan (10/26/2023 2:03 PM EDT): On Eliquis and Plavix chronically. Plavix has been on hold. Some bleeding issues out of the wound. Resume plavix soon Assessment & Plan (11/02/2023 4:48 PM EDT): PV angio from 07/04/22: Findings: Distal aorta: Patent Right common external iliac and common femoral artery patent Left common and external iliac arteries are patent Left common femoral artery is patent Left SFA and profunda femoris are patent Left distal SFA above-knee and proximal and below-knee distal popliteal artery had multiple lesions up to 80 with calcified plaque The left TP trunk had disease. The left anterior tibial artery has 100% occlusion. The left peroneal artery and posterior tibial artery have mild disease and provide runoff to the foot. Impression: Successful revascularization to the left lower extremity with HEALTH INSURANCE ADJUSTER to the left popliteal artery and anterior tibial artery sabianism of three-vessel runoff to the left foot Recommendation: Aspirin and Plavix Diabetes control Wound care follow-up 10/26/2023: Suspect that he has PAD in the right lower extremity as well. Will get ABIs on Thursday during his next dressing change 10/28/2023: Complains of leg pain and cramping Requested increase in pain meds, defer to hospitalist Scheduled for ABIs and lower leg dressing change 10/29/2023: Complains of pain in his legs, unable to sleep due to pain Discussed with hospitalist Refused ABIs due to pain, cannot tolerate procedure 10/30/2023: Discussed CTA instead of ABIs, refused CTA as he is too claustrophobic States he will allow ABIs to be completed if he is premedicated, hospital order Dilaudid to be given prior to JADE measurement 11/02/2023: ABIs completed today Report: Noninvasive arterial study was done the lower extremity. The right brachial blood pressures 114. The left could not be obtained because of a PICC line. The right lower thigh pressure is 185, calf pressure is 125, posterior tibial pressure is 136, dorsal pedal pressure is 129 and the digital pressure is 101. The right JADE is 1.19 with normal biphasic arterial waveforms in the right lower extremity. The left lower thigh pressure is 193, calf pressure is 155, posterior tibial pressure is 109, dorsal pedal pressure is 105 and digital pressure is 144. The left JADE 0.96 with monophasic waveforms in the left lower extremity. IMPRESSION: Impression: 1. Normal bilateral ankle brachial indices 2. Monophasic wave patterns in the left lower extremity 2. No findings to suggest significant arterial impairment Assessment & Plan (10/22/2023 5:53 PM EDT): On Eliquis and Plavix chronically. Assessment & Plan (07/21/2022 5:10 PM EDT): 07/08/[address] Espinoza's efforts at revascularization and augmenting his blood flow to his left lower extremity. He was able to dilate and 80% occlusion of his distal popliteal artery and opened up 100% occlusion of his anterior tib. He has 3 vessels to his foot which should optimize wound healing Assessment & Plan (07/25/2022 10:36 PM EDT): Niall developed osteomyelitis of left fifth metatarsal. He underwent partial amputation and debridement. CTA showed a questionable filling defect of the left popliteal artery. Interventional cardiology was consulted. He had PV angiography with HEALTH INSURANCE ADJUSTER to the left popliteal artery and anterior tibial artery 07/07/[address] Naranjo. He was started on plavix. Plan: Continue plavix 75mg daily Continue apixaban 5mg BID Stopped Statin at patient's request followup with cardiology Assessment & Plan (07/12/2022 5:12 PM EDT): Cardiology saw the patient this admission. They started Plavix, patient is already on Eliquis for A-fib Per procedure report Dr. Naranjo, 07/07/2022: Impression: Successful revascularization to the left lower extremity with HEALTH INSURANCE ADJUSTER to the left popliteal artery and anterior tibial artery sabianism of three-vessel runoff to the left foot Assessment & Plan (07/08/2022 12:49 PM EDT): 07/08/[address] Espinoza's efforts at revascularization and augmenting his blood flow to his left lower extremity. He was able to dilate and 80% occlusion of his distal popliteal artery and opened up 100% occlusion of his anterior tib. He has 3 vessels to his foot which should optimize wound healing Poor intravenous access 07/05/2022 Assessment & Plan (07/10/2022 1:47 PM EDT): Single-lumen PICC given long-term grams IV Rocephin Assessment & Plan (07/09/2022 3:05 PM EDT): Single-lumen PICC given long-term grams IV Rocephin Multiple wounds 07/02/2022 Assessment & Plan (07/29/2022 4:38 PM EDT): 07/03/2022: Wound culture 06/30/22: MSSA, Serratia marcescens Assessment & Plan (07/12/2022 4:47 PM EDT): Defer management to wound team Assessment & Plan (07/11/2022 3:22 PM EDT): Defer to wound therapy Assessment & Plan (07/05/2022 1:09 PM EDT): Defer to wound therapy Assessment & Plan (07/09/2022 9:57 AM EDT): 07/03/2022: Wound culture 06/30/22: MSSA, Serratia marcescens Currently on Zosyn continue Zosyn for anaerobic coverage 07/09/2022 We are changing coverage to IV ceftriaxone 2 g daily for 4 weeks Acute osteomyelitis of metatarsal bone of left f oot 07/01/2022 Overview (08/18/2022): Follow-up scheduled with orthopedics and wound management. Assessment & Plan (11/02/2023 3:00 PM EDT): Foot XR this admission without acute OM --- will need to clarify with ID if concern for acute OM or further imaging warranted. PT cannot tolerate MRI due to claustrophobia. The plan has been for an JADE study which has been canceled multiple times this admission as patient has reported he is worried about pain during exam and not on wound care personnel opening his leg wraps. Discussed with patient today 10/31, as needed pain medicine for JADE study has been ordered and Wound care will return 11/01, JADE US ordered for 11/01 and patient amenable. ID following Continue cefepime per ID, last dose is tomorrow 11/01, will await ID recs to see if needs longer course. Wound therapy following Assessment & Plan (10/26/2023 2:00 PM EDT): Obtain wound therapy consult. Broad-spectrum IV antibiotics. Above diagnosis appears to be from 2022. Resolved? Assessment & Plan (10/22/2023 5:52 PM EDT): Obtain wound therapy consult. Broad-spectrum IV antibiotics. Above diagnosis appears to be from 2022. May need reevaluation given worsening left foot cellulitis. Follow daily Assessment & Plan (07/29/2022 4:37 PM EDT): 07/29/2022 Our patient is getting ready for anticipated discharge to outpatient management. He will be switching over to oral therapy and we are discontinuing his IV ceftriaxone and PICC line. He will transition to outpatient wound care for now and the biggest challenge will be offloading for this gentleman who has a BMI over 50 kg/m2. For now 1. DC ceftriaxone 2. Keflex 1 g p.o. twice daily for 30 days 3. [place] offloading with dressing change, walker, knee roller 4. We will see him and wound care early next week and follow-up 5. Anticipate discharge soon Assessment & Plan (07/25/2022 10:34 PM EDT): Images from the original note were not included. Niall Christiansen is a 62 y/o male with a past medical history of type 2 diabetes on oral agents, atrial fibrillation on chronic anticoagulation, and HTN who was admitted to the hospital 06/30 with a left foot ulcer. Niall says he first noticed the wound in April. He was set up with home care for management of the wound and dressing changes. This wound continued to worsen and he developed other wounds on his lower extremities. He was referred to wound care here. He was seen in the wound clinic. His wound was noted have purulent drainage and was malodorous. His wound was debrided and he was then referred to the ED for admission to the hospital for IV antibiotics. Xray of the foot revealed extensive soft tissue ulceration over the left fifth MTP joint with extensive osteomyelitis involving the fifth metatarsal head and proximal phalanx Orthopedic surgery was consulted. He underwent partial left fifth metatarsal amputation and debridement of the left lateral ulcer as well as a left dorsal ulcer. CTA also showed a questionable filling defect of the left popliteal artery. Interventional cardiology was consulted. He had PV angiography with HEALTH INSURANCE ADJUSTER tot he left popliteal artery and anterior tibial artery 07/07/[address] Naranjo. He was started on plavix. Infectious disease was also consulted. He was initially started on broad spectrum antibiotics with vanc and zosyn pending cultures. Wound culutres later came back positive for moderate growth serratia marcescens and MSSA. He was transitioned to ceftriaxone. ID recommends this be continued for 4 weeks of treatment. 07/18: discussed length of treatment of IV antibiotics with Beulah Ward with ID. Will treat with ceftriaxone for 4 weeks from date of surgery. (through 08/01). Niall says he is unable to go to an infusion center daily for the antibiotics and is unable to do them at home so he will remain on [facility] through 08/01. 07/25: Evaluated patient during dressing change. Some oozing of blood from the wound. No purulent drainage. Debridement performed by wound care. Swelling improving. Plan: Contacted infectious disease today to confirm that we will continue ceftriaxone 2gm daily for 4 weeks per ID recs. Through 07/29. Then recommended transition to oral Levaquin. Dr. Day planning on evaluating the patient on Friday 07/28. CBC, CMP every Thursday [facility] 5-325 1-2 tab Q6 PRN pain Continue wound care per wound team Followup with ortho outpatient Assessment & Plan (07/12/2022 5:18 PM EDT): Status post partial left fifth toe amputation and debridement of abscess Left lower extremity angioplasty without stent ID following-2 g IV Rocephin daily for MSSA predominant infection and Serratia, has PICC Infectious disease will follow-up outpatient, wound therapy will follow-up outpatient Orthopedic surgery follow-up outpatient [facility] for pain management until follow-up with Dr. Baron with orthopedic Infectious disease anticipating 4-week course of Rocephin at the infusion center outpatient after discharge Assessment & Plan (07/09/2022 8:47 AM EDT): Postop day #5 partial left fifth ray amputation with debridement of abscess Patient's pain has improved Wound care to change dressing today - will review images following this. Appreciate vascular input. Cultures positive for Staph aureus and gram-negative rods, appreciate infectious disease input Minimal heel weightbearing left lower extremity Patient requests to work with therapy services as he is feeling weak and feels his strength is not what it used to be. Further recommendations to follow based on vascular work-up and serial dressing changes and wound care intervention. Assessment & Plan (07/09/2022 9:57 AM EDT): 07/01/2022: Assessment: Wound on left foot, culture 06/30/2022: Gram-negative rods, MSSA Remote history of Pseudomonas in wounds (2019) Currently on Zosyn and vancomycin Plan for surgical intervention on Thursday CT angio ordered by Dr. Day Plan: Discontinue vancomycin, continue Zosyn Will review recommendations by Dr. Baron Continue to follow microbiology and adjust antibiotics as appropriate 07/03/2022: Refused CT angio ordered by Dr. Day, reordered with sedation refused CT angio with sedation due to fear of confinement in CT Need to assess blood flow, Dr. Day is exploring the possibility of angiogram with cardiology Decreased blood flow without intervention will compromise treatment plan/healing 07/08/2022 Patient is now status post 4 days from undergoing fifth metatarsal subtotal resection. Intraoperative cultures yielded MSSA and previous Serratia. We will likely be recommending 1. Ceftriaxone 2 g daily for 4 weeks through our infusion center 2. He will also be obtaining outpatient wound care management through the wound care clinic 3. He will need to offload and being on a knee roller and booted 07/09/2022 No new developments at this time and cultures yielded both MSSA (likely main culprit) and Serratia 1. Continue ceftriaxone 2 g daily for 4 weeks 2. He will need ongoing wound care 3. He will need physical therapy and a knee roller with the boot. We will want him ideally in an [facility] prior to discharge to home. Case discussed with Dr. Lisa Assessment & Plan (07/09/2022 3:03 PM EDT): Status post partial left fifth toe amputation and debridement of abscess Left lower extremity angioplasty without stent Non-healing wound of lower extremity, sequela Overview (07/04/2022): Added automatically from request for surgery [id number] Wound healing, delayed 06/30/2022 Overview (07/07/2022): Added automatically from request for surgery [id number] MDD (major depressive disord er), recurrent episode, moderate 03/04/2022 Assessment & Plan (10/28/2023 8:29 PM EDT): Continue Paxil Assessment & Plan (10/25/2023 2:45 PM EDT): On Paxil. Resume Paxil now that kidney function result Assessment & Plan (10/22/2023 5:53 PM EDT): On Paxil. Hold in the setting of acute kidney injury Assessment & Plan (08/18/2022 3:39 PM EDT): Increase paroxetine to 20 mg. Assessment & Plan (07/12/2022 5:11 PM EDT): Continue Paxil 10 mg daily Patient is not on benzodiazepines at home per inspect report S/p trial klonopin and subsequently Ativan as needed inpatient, did not prescribe at discharge Assessment & Plan (07/09/2022 3:07 PM EDT): Continue Paxil 10 mg daily Was acutely on Klonopin but this did not help with anxiety Trial Ativan Assessment & Plan (03/04/2022 12:44 PM EST): Begin paroxetine as he reports past success with paroxetine in the past. Type 2 diabetes mellitus with hyperglycemia 02/12 Overview (05/19/2023): Hemoglobin A1c 11.2%. Assessment & Plan (03/04/2022 12:47 PM EST): Given samples of Trulicity. Need for immunization against influenza 04/24/19 Need for hepatitis C screening test 04/24/2021 Essential hypertension 04/24/2021 Assessment & Plan (07/12/2022 5:52 PM EDT): Recent blood pressures stable Plan: Continue coreg 25mg BID Continue lisinopril 10mg daily Assessment & Plan (07/12/2022 5:16 PM EDT): Continue carvedilol 25 mg twice daily Continue lisinopril 10 mg daily Continue home torsemide 20 mg daily Assessment & Plan (07/09/2022 3:06 PM EDT): Plan: Continue carvedilol 25 mg twice daily Continue lisinopril 10 mg daily Continue torsemide 20 mg daily -patient has refused torsemide while hospitalized Hypercoagulable state due to atrial fibrillation 07/19/2020 Overview (08/18/2022): Chronic atrial fibrillation [id number] score of 3 Assessment & Plan (10/27/2023 7:20 PM EDT): Previously on Lovenox with subsequent wound bleeding. Continue home eliquis Assessment & Plan (10/25/2023 2:45 PM EDT): Previously on Lovenox with subsequent wound bleeding. Will resume Eliquis and due time Assessment & Plan (10/22/2023 5:53 PM EDT): Continue Eliquis as tolerated, renally dosed Assessment & Plan (07/19/2020 2:35 PM EDT): Continue Eliquis. Non-intractable vomiting with nausea 06/15/2020 Assessment & Plan (06/15/2020 5:40 PM EST): Omeprazole 20 mg daily. Continue Zofran as needed. If symptoms worsen he will need to go to the emergency room. Voices understanding. Atrial fibrillation with rapid ventricular respo nse 12/21/2019 Overview (04/24/2021): Continue Eliquis. Assessment & Plan (11/02/2023 2:59 PM EDT): While in ICU required IV metoprolol with reasonable rate control Resumed home Coreg and achieved rate control Was on Lovenox with bleeding issues and have now resumed home Eliquis; continue eliquis discharge Hgb 11.6 Assessment & Plan (10/26/2023 2:00 PM EDT): While in ICU required IV metoprolol with reasonable rate control Resume home Coreg and achieved rate control Was on Lovenox with bleeding issues and have now resumed home Eliquis Assessment & Plan (10/22/2023 5:52 PM EDT): Rate controlled. On apixaban 5 mg twice daily Assessment & Plan (07/12/2022 5:32 PM EDT): Rate controlled. Plan: Continue coreg 25mg BID Continue apixaban 5mg BID Assessment & Plan (07/12/2022 5:10 PM EDT): Eliquis held initially for anticipation of surgery. This has been resumed since that time. He received intermittent doses of Lovenox when able. -Continue Eliquis -Heart rate controlled Assessment & Plan (07/09/2022 3:05 PM EDT): Eliquis held initially for anticipation of surgery. This has been resumed since that time. He received intermittent doses of Lovenox when able. -Continue Eliquis Assessment & Plan (03/04/2022 12:42 PM EST): Advised to take Eliquis twice daily. Assessment & Plan (07/19/2020 1:17 PM EDT): Continue Eliquis and carvedilol Assessment & Plan (04/20/2020 7:52 AM EST): Continue Eliquis Morbid obesity 11/26/2018 Assessment & Plan (10/27/2023 7:18 PM EDT): Complicating care and increasing morbidity and mortality Assessment & Plan (10/23/2023 4:41 PM EDT): Complicating care and increasing morbidity and mortality Assessment & Plan (10/22/2023 5:53 PM EDT): Complicating care and increasing morbidity and mortality Assessment & Plan (07/12/2022 4:48 PM EDT): Further complicates care including management of multiple wounds, venous stasis, hypertension, diabetes. Assessment & Plan (07/11/2022 3:22 PM EDT): Complicates care with regards to healing Assessment & Plan (07/06/2022 8:48 AM EDT): Complicates care including management of wounds, venous stasis, hypertension, diabetes. Patient also at risk of postoperative surgical complications should surgical intervention become necessary. Assessment & Plan (03/04/2022 12:51 PM EST): Resume Trulicity. Assessment & Plan (04/24/2021 5:58 PM EST): Given diet information. Encourage 40 pound weight reduction. Assessment & Plan (01/02/2020 6:20 PM EDT): DASH diet Assessment & Plan (12/20/2019 5:49 PM EDT): - recommend diet and weight loss Assessment & Plan (07/20/2019 6:27 PM EDT): - recommend diet and exercise Type 2 diabetes mellitus with peripheral neuropa thy 08/27/2018 Assessment & Plan (11/02/2023 3:01 PM EDT): Continue Lantus to 30 units twice daily . Continue carb coverage and sliding scale insulin. Patient's home medication glipizide held. It appears insulin was started during this admission as a new medication. Per chart review, notes from July 2022, patient at that time had refused insulin and checking blood sugars at home. Hemoglobin A1c 9.2 on admission Blood sugars controlled Prefer insulin at this time ( not opposed to returning to orals once infection proves cleared up for perhaps at least 3 months). Avoid uncontrolled hyperglycemia for long periods of time. Assessment & Plan (10/26/2023 2:01 PM EDT): Mildly uncontrolled. Increasing to Lantus 25 units twice daily . utilize carb coverage and sliding scale insulin. Assessment & Plan (10/23/2023 1:13 PM EDT): Most recent A1c 9.2% Assessment & Plan (10/22/2023 5:52 PM EDT): Blood glucose 244 at admission. Takes oral medications at home which we will hold. Utilize carb coverage and sliding scale insulin. Assessment & Plan (07/12/2022 5:10 PM EDT): Lab Results Component Value Date HGBA1C 7.8 (H) 06/30/2022 Chronic glipizide 10 twice daily. This was exchanged for short acting insulin carb coverage perioperatively. He is now stable and his glipizide has since been resumed with good blood glucose control. The patient has requested a regular diet. His sugars remain controlled nonetheless. Assessment & Plan (07/09/2022 3:04 PM EDT): Lab Results Component Value Date HGBA1C 7.8 (H) 06/30/2022 Chronic glipizide 10 twice daily. This was exchanged for short acting insulin carb coverage perioperatively. He is now stable and his glipizide has since been resumed with good blood glucose control. The patient has requested a regular diet. His sugars remain controlled nonetheless Assessment & Plan (04/24/2021 5:58 PM EST): Continue current management. He will attempt to be more compliant with his diet. Follow-up 6 months. Assessment & Plan (06/15/2020 5:44 PM EST): Continue current management Assessment & Plan (01/02/2020 6:12 PM EDT): Hemoglobin A1c at hospital was 7.4%. Assessment & Plan (12/20/2019 5:49 PM EDT): Lab Results Component Value Date HGBA1C 7.3 (H) 07/20/2019 - monitor accuchecks ac/hs with humalog sliding scale - holding oral meds for now - diabetic diet Lower extremity edema 08/27/2018 Assessment & Plan (11/01/2023 6:35 PM EDT): Continue Lasix edema seems to be improving; has been on Lasix IV 40 twice daily, de-escalated to 20 daily IV 10/31->deescalated to oral lasix 40 mg daily on 11/01. He has been on IV lasix until 10/31. Deescalated to oral lasix 11/01. LOS I/O -11L Echo ordered and pending, follow up results Lasix is new for him this admission, at discharge, he may need prescription. Per chart review, previously he had not wanted to be on diuretics. Discharge summary 07/[address] Owen as follows: Was treated with diuretics in the hospital for his chronic lower extremity edema. He informed us that he he takes torsemide once every couple of weeks at home. Because of this, he refused doses of torsemide. He voiced concerns about his limited mobility and difficulty getting to the commode. He was concerned about incontinence. He had a Peña catheter in place. He was reluctant to have this removed, but this was eventually accomplished. He does note a difference in his urine output with torsemide compared to furosemide. He therefore agreed to taking doses of furosemide. Later in his hospital stay, he refused diuretics altogether. Assessment & Plan (10/26/2023 2:10 PM EDT): 10/25: Will start Lasix 3 times daily while Peña catheter remains in to diurese 2 to 3 L daily to improve his pain in his lower extremities Assessment & Plan (07/17/2022 4:53 PM EDT): Prior to admission, he tells me he was taking torsemide as needed, 1-2 times per month. He was diuresed with IV lasix during his hospitalization for worsening peripheral edema. He was refusing diuresis without a peña catheter due to difficulty in getting up to use the restroom. Peña was discontinued today. He has been able to void without issue. Echo from [place] in 2018 with LV EF 50-55%, tough very technically difficult study. 07/13: Niall does not want to take torsemide without having a peña catheter in place. He says that the torsemide is just too brutal on him and it is too difficult to get up and use the bathroom that frequently. He is able to use a urinal at the bedside, but prefers not to do that. He is adamant that he will not take it until he is home. He is willing to take furosemide instead of torsemide as that is more manageable for him. 07/17: Niall has been refusing to take his furosemide. He refused it 07/14, 07/16, and 07/17. He says he does not have any more swelling and so he does not need it. I explained to him that this is something he should be on everyday to control his chronic edema. He is adamant that he will continue to take it only as needed as he does at home. I discontinued his lasix and potassium today. Plan: Discontinued lasix as patient is adamantly refusing to take it. Potassium supplementation discontinued LE with compression wraps per wound team Encouraged him to notify us if he notices any increased swelling. Assessment & Plan (07/12/2022 5:16 PM EDT): At home patient is on torsemide 20 mg daily Per chart review, he was refusing torsemide without a Peña catheter for the time being due to foot ulcers and decreased ambulation due to discomfort including to the bathroom. S/P IV Lasix with a Peña catheter Discontinued Peña catheter on discharge day; resume torsemide home regimen Venous stasis dermatitis of both lower extremiti es Assessment & Plan (07/17/2022 4:53 PM EDT): Niall has a history for chronic venous stasis, lymphedema, and multiple venous stasis ulcers. He has been following in the wound clinic for management of these ulcers. Wound team also using compression wraps. Plan: Defer management per wound team Refusing diuretics Assessment & Plan (07/11/2022 3:33 PM EDT): History of chronic venous stasis, lymphedema, and multiple venous stasis ulcers. He has been seen in the wound care clinic for these ulcers. Plan: Management per wound care Compression wraps are being worn at this time Assessment & Plan (07/09/2022 3:07 PM EDT): History of chronic venous stasis, lymphedema, and multiple venous stasis ulcers. He has been seen in the wound care clinic for these ulcers. Plan: Management per wound care Compression wraps are being worn at this time Cont torsemide, noncompliant while hospitalized unless he has a catheter Assessment & Plan (04/02/2018 6:19 PM EST): Chronic venous stasis dermatitis. The patient also picks scabs in these areas. There are multiple scabbed areas, they do have some mild surrounding redness, but nothing appears to be acutely cellulitic on my examination. wound care team saw him. Spinal stenosis Assessment & Plan (04/02/2018 6:20 PM EST): Procedure(s) (LRB): POSTERIOR LUMBAR FUSION (N/A) Day of Surgery - 03/29/18 Significant spinal stenosis causing bilateral lower extremity weakness. Continue care per Dr. Moulton. Sleep apnea Assessment & Plan (07/13/2022 11:55 AM EDT): Has a CPAP at home, but has not been wearing it here. I told him he could have someone bring it in so that he can use it. Plan: Nocturnal CPAP Assessment & Plan (12/21/2019 1:01 PM EDT): CPAP Assessment & Plan (07/20/2019 6:28 PM EDT): - continue home CPAP settings Assessment & Plan (03/30/2018 4:49 PM EST): Chronic central sleep apnea on home positive pressure ventilation. BiPAP while asleep for now secondary to his continuous narcotic infusion. Hypertension complicating diabetes Overview (05/19/2023): Blood pressure is not controlled. Currently taking carvedilol. Assessment & Plan (11/01/2023 6:35 PM EDT): BP controlled Patient on coreg, losartan On lasix, new; see LE edema section for details Assessment & Plan (10/26/2023 2:02 PM EDT): resolved. On Coreg. Resume losartan if significantly elevated blood sugars occur Assessment & Plan (10/22/2023 5:53 PM EDT): Low. Hold all home BP meds. This includes losartan, Coreg. Assessment & Plan (03/04/2022 12:42 PM EST): Blood pressure is acceptable. Assessment & Plan (04/24/2021 5:56 PM EST): Blood pressure is well controlled. Continue current medication. Assessment & Plan (07/19/2020 1:21 PM EDT): Continue current medication Assessment & Plan (04/20/2020 7:52 AM EST): Self monitor blood pressure. Assessment & Plan (12/20/2019 5:48 PM EDT): - continue home meds and monitor Assessment & Plan (07/20/2019 6:33 PM EDT): - continue home meds and monitor Assessment & Plan (03/29/2018 7:28 PM EST): Continue home antihypertensives and Lasix. Hyperlipidemia Assessment & Plan (07/25/2022 10:35 PM EDT): Lipid panel 2019: Total: 232, Tri, LDL: 129, HDL: 41 He said he has taken a statin previously and had myalgias with it. He is willing to try a low dose statin given his PAD and recent stents. 07/17: Reviewed results of lipid panel 07/14/22: Total: 163, Tri, LDL: 96, HDL: 36 Today he is complaining of pain all over since last night because of the statin. He does not want to take this any longer and does not want to try another statin. Plan: Stopped statin at patient's request Assessment & Plan (07/20/2019 6:27 PM EDT): - continue statin Assessment & Plan (03/29/2018 7:29 PM EST): Continue home statin Resolved Problems Problem Noted Date Diagnosed Date Resolved Date Hyperkalemia 07/28/2022 08/18/2022 Assessment & Plan (07/28/2022 6:26 PM EDT): Potassium 5.7 today. Repeat was 5.2 Blood pressure low normal Patient is not on a potassium supplement or potassium sparing diuretic. Plan: Hold lisinopril for now Antibiotic-associated diarrhea 07/03/2022 08/18/2022 Assessment & Plan (07/12/2022 5:59 PM EDT): Developed diarrhea after initiation of IV antibiotics. Now improved Plan: Continue florastor Assessment & Plan (07/12/2022 5:16 PM EDT): Resolved Flowsheet with normal bowel movements Assessment & Plan (07/09/2022 3:06 PM EDT): Resolved Type 2 diabetes mellitus wit h left diabetic foot ulcer 06/30/2022 05/19/2023 Assessment & Plan (08/18/2022 10:02 AM EDT): Wound culture obtained. Doxycycline added. Follow-up with wound management. Assessment & Plan (07/28/2022 6:27 PM EDT): A1C: 7.8% Home regimen: Glipizide 10mg BID Glucoses have been at goal 07/18: Refusing accuchecks. Only wants his blood sugar checked once a week. Does not want to take any more insulin. 07/27: Glucose 245, 144 patient attributes high blood sugars to antibiotics which are mixed in D5W. He is refusing regular Accu-Cheks and refuses insulin. 07/28: Random glucose today 178 Plan: Glucose check daily if he will allow Continue glipizide 10mg BID Sliding scale insulin D/C'd at patient's request Assessment & Plan (07/12/2022 5:12 PM EDT): He presents with 1 month onset of large ulcer, foul-smelling but without purulent drainage at time of presentation. Imaging showed bony destruction of the fifth MPT joint and proximal phalanx consistent with osteomyelitis. Initially admitted for IV vancomycin and Zosyn. Doppler did show some decreased blood flow. Wound culture suggest MSSA as the predominant source. He ultimately underwent a partial left fifth toe amputation with debridement of abscess on 07/04. He underwent angiogram with angioplasty of his left lower extremity by interventional cardiology 07/07. Single-lumen PICC line has been placed for long-term IV Rocephin. Assessment & Plan (07/09/2022 3:02 PM EDT): He presents with 1 month onset of large ulcer, foul-smelling but without purulent drainage at time of presentation. Imaging showed bony destruction of the fifth MPT joint and proximal phalanx consistent with osteomyelitis. Initially admitted for IV vancomycin and Zosyn. Doppler did show some decreased blood flow. Wound culture suggest MSSA as the predominant source. He ultimately underwent a partial left fifth toe amputation with debridement of abscess on 07/04. He underwent angiogram with angioplasty of his left lower extremity by interventional cardiology. Single- lumen PICC line has been placed for long-term IV Rocephin 2 g. Ulcer of toe of left foot 06/30/2022 Overview (07/02/2022): Added automatically from request for surgery [id number] Venous stasis ulcer of right lower extremity 0 08/18/2022 Assessment & Plan (04/24/2021 5:59 PM EST): Continue current wound management with home health care. Assessment & Plan (07/19/2020 1:21 PM EDT): Continue current wound care. Assessment & Plan (06/15/2020 5:44 PM EST): Continue current management Assessment & Plan (04/20/2020 7:53 AM EST): Continue current management Assessment & Plan (12/23/2019 6:00 PM EDT): Lasix IV BID. Follow clniical course. Assessment & Plan (12/23/2019 2:05 PM EDT): Chronic venous insufficiency with chronic venous ulcers which have become infected. His wound cultures from July were Pseudomonas. No culture has yet been completed on this admission. There is a [facility] notation of Osteomyelitis of the left fibula from 04/13/2017 however I did not see any form of testing or note that confirmed this. A x-ray was done today which noted questionable early changes of osteomyelitis I would doubt this as actual. If he did in fact have this in 2018 there would be a chronic indication. A MRI has been ordered we will wait to see how this turns out. Anticipate this will be pseudomonas which can be successfully treated with Levaquin. He has not had a arterial doppler however, he would not allow this at this time due to pain. I have requested a culture be collected. Our plan: 1. Collect drainage culture 2. If pseudomonas will transition to Levaqin 750mg po daily 3. Wound care to see him later today. He has refused Coban-2 compression at this time. 12/22/19 Awaiting cultures. He refused his MRI. He has refused arterial dopplers and Coban -2 treatment to this point. He agreed to try tomorrow with Coban - 2. Will continue his current regimen until his cultures are back. Feel it is unlikely osteomyelitis though his ESR and CRP are somewhat elevated. Ulcers are not typical ulcers associated with osteomyelitis and he has not had previous injury or surgery to the area noted on the x-ray. His diabetes is under relative control considering his frequent non-compliance. Hopefully he will undergo MRI tomorrow to give a more clear picture. Our plan: 1. Continue current IV antibiotics 2. Monitor culture 3. Hopeful he will undergo imaging tomorrow. 4. Aquacel ag to lower legs ulcers - Coban 2 starting 12/23/19 12/23/19 Patient continues to refuse our treatment plans do to pain. He did not allow coban-2 which is a baseline treatment for venous ulcers to heal. 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 Ideally he should receive another 3-5 days of Merrem outpatient. We would like for him to have Merrem 2gm IV over 2 hrs as an outpatient. This can be done at [facility] outpatient therapy, or an F. It is unlikely his insurance will pay for the medication at home however, JAVIER is welcome to try. I feel he can be discharged if arrangements for IV treatment can be made. He is resistant to Levaquin and there is not another oral agent that will treat his resistant Pseudomonas. He typically refuses to come to any outpatient wound care or IV therapy appointments. However, I have scheduled him with Dr. Day for next Thursday. Our Plan: 1. Treat his resistant Pseudomonas A. DC Vanc. And Zosyn B. Start Merrem 2. Outpatient plan when ready for discharge A. Wound care appointment with Dr. Day on ThursdayDecember 27 at 10:45 B. Merrem 2gm IV q24 hrs to be given over a 2 hour period x 7 days total including inpatient this will get him to his appointment with Dr. Day. 3. [facility] orders: Will need dressing changes QOD A. 1/4 strength Dakins - patient has with refills already at home. B. Nursing will wash ulcers with Dakins at each dressing change C. Silver alginate base dressing with ABD and Kerlix. May use Coban-2 if patient tolerates. Diabetic ulcer of left lower leg 07/21/2019 06/15/2020 Assessment & Plan (01/02/2020 6:10 PM EDT): Follow-up at wound therapy. Assessment & Plan (07/21/2019 11:10 AM EDT): - Superficial, partial thickness with active infection and surrounding cellulitis. Treatment as above - Check wound Cx - May need outpatient surgical consultation if not adequately improving with wound care tx and abx Fall 04/01/2018 06/15/2020 Overview (04/01/2018): Pt fell and hit his head and knees this evening. I will get HCT and knee X rays. RN to call Dr Moulton to let him know. Acute on chronic respiratory failure with hypercapnia 03/29/2018 06/15/2020 Assessment & Plan (04/02/2018 6:19 PM EST): Patient is a history of obstructive sleep apnea and morbid obesity. He is on high levels of C Pap, 16 cm H2O, at home. He now presents with increasing agitation and worsening difficulty breathing secondary to his thoracic spinal surgery as well as his underlying lung disease. In order to control his pain, we will put him on [employer] with continuous rate, but he will need to be on BiPAP while asleep in order to maintain his breathing while on this therapy. Patient and nursing are aware. He states that he would like to use his own CPAP machine at the rehabilitation facility. I have noted this in the discharge orders. Osteomyelitis of left fibula 04/13/2017 07/19/2020 Assessment & Plan (01/02/2020 6:11 PM EDT): Follow-up at wound therapy Assessment & Plan (12/23/2019 11:18 AM EDT): Do not anticipate Osteomyelitis. Dr. Day will see him on ThursdayDecember 27 in the outpatient wound care clinic and can evaluate and continue any needed treatment plan. Assessment & Plan (12/23/2019 5:59 PM EDT): - presumed diagnosis as MRI unable to be obtained due to patient's discomfort and inability to lay down for exam - B/L lower extremity cellulitis failed outpatient abx and home nursing wound care - L leg xray with presumed L distal fibula osteomyelitis - ID following - ordered MRI left LE and right XR as both LE with wounds --> may not be able to obtain due to patient's discomfort. - he may need IV Abx - BCX 12/19 - sent - WCX - GNR - will treat empirically with vancomycin and zosyn IV --> change to daily merrem - wound care eval and treat; JAVIER to assist with outpatient resources Assessment & Plan (07/21/2019 11:10 AM EDT): - B/L purulent lower leg cellulitis without identifiable drainable abscess, non-septic, failed outpatient abx with amoxicillin x10 days - complicated by DM, lymphedema, chronic venous stasis. - Empirical tx with vanc/zosyn IV. Will transition to oral Clindamycin as an outpatient. - wound care consult eval and treat; recommend completion of vascular arterial and venous ultrasound. - BCx pending. Type 2 diabetes mellitus wit hout complication, without long-term current use of insulin 04/24/2021 Assessment & Plan (07/19/2020 1:20 PM EDT): Continue current diabetes management Assessment & Plan (04/20/2020 7:53 AM EST): Labs per orders. Assessment & Plan (07/20/2019 6:27 PM EDT): Lab Results Component Value Date HGBA1C 6.7 11/26/2018 - monitor accuchecks ac/hs with humalog sliding scale - holding oral meds for now - recheck A1C - diabetic diet Assessment & Plan (04/02/2018 6:18 PM EST): Diabetes mellitus type II, not well controlled at baseline. Last A1c was 9.7%. He states he was previously on Trulicity but this was stopped when he went to the [facility] a few months ago, I suspect due to expense. His sugars have not been well controlled on the sliding scale over there. For the time being we'll put him on sliding scale as well as carbohydrate coverage. Since I expect to return to the [facility], I don't think there is any reason to start Trulicity now. I will increase the patient's Lantus to 40 units daily at bedtime. Continue sliding scale. We are holding his oral blood sugar medication. Chronic a-fib 07/19/2020 Assessment & Plan (01/02/2020 6:10 PM EDT): Continue Eliquis Assessment & Plan (12/21/2019 1:05 PM EDT): Images from the original note were not included. - anticoagulated on eliquis - continue coreg Echo 2018 from [facility]: Assessment & Plan (04/02/2018 6:18 PM EST): Chronic atrial fibrillation on Eliquis anticoagulation. Eliquis had been on hold secondary to his surgery but Dr. Moulton approved it to be restarted today. I will hold his aspirin upon discharge. Currently rate is reasonably controlled. telemetry for monitoring. Continue his carvedilol and digoxin. Encounters Date Type Department Care Team Description 08/08/[address] [id number] Lora Harrison MA Other from Last 3 Months Immunizations Immunization Administration Dates Next Due Influenza Patient Reported 02/11/2018 Influenza Vaccine Quadrivalent PF 03/03/2022, PPD Test 07/22/2022,07/12/2022 Pneumococcal Polysaccharide 23 Valent 07/22/2019 Tdap 04/02/2015 Zoster Recombinant 01/02/2020 Surgical History Surgery Date Site/Laterality Comments SHOULDER ARTHROSCOPY RECTAL SURGERY Abscess CARDIOVERSION x2 AFIB BACK SURGERY 03/28/2018 Dr. 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, I&D of Left Foot Abcess and Intra-operative Cultures; Surgeon: Yifan Baron DO; Location: [facility] [place]; Service: Orthopedics IR PICC INSERTION EQUAL OR > 5 YEARS 07/08/2022 IR PICC INSERTION EQUAL OR > 5 YEARS 07/08/2022 Bill Guadalupe MD [facility] IR IR PICC INSERTION EQUAL OR > 5 YEARS 10/23/2023 IR PICC INSERTION EQUAL OR > 5 YEARS 10/23/2023 Rohit Shen MD [facility] IR Medical History Medical History Date Comments Chronic a-fib (HCC) Hypertension Hyperlipidemia Sleep apnea Spinal stenosis Arthritis Neuropathy, peripheral Enlarged prostate History of diabetes mellitus, type II Venous stasis dermatitis of both lower extremiti es Cellulitis of leg 2017 Diabetes mellitus (HCC) Personal history of kidney stones History of MRSA infection 2007 Post-operative nausea and vomiting Atrial fibrillation (HCC) Anxiety Depression Family History Medical History Relation Name Comments Heart Disease Brother 1 No Known Problems Daughter 1 No Known Problems Daughter 2 Heart Disease Father Heart Disease Mother Heart Disease Sister 1 No Known Problems Son Relation Name Status Comments Brother 1 Alive Brother 2 Daughter 1 Alive Daughter 2 Alive Father Mother Sister 1 Alive Sister 2 Alive Sister 3 Alive Sister 4 Alive Sister 5 Alive Sister 6 Son Alive Social History Tobacco Use Types Packs/Day Years Used Date Smoking Tobacco: Former Cigarettes 1 3 1 977 - 1980 Smokeless Tobacco: Never Tobacco Cessation:Counseling Given: Not Answered Alcohol Use Standard Drinks/Week Comments Yes 1 (1 standard drink = 0.6 oz pur e alcohol) rarely B1300 Health Literacy Answer Date Recor ded How often do you need to hav e someone help you when you read instructions, pamphlets, or other written material from your doctor or pharmacy? Never 10/26/2023 [facility] Utilities Answer Date Recorded In the past 12 months has e electric, gas, oil, or water company threatened to shut off services in your home? No 10/26/2023 Social Connection and Isolat ion Panel [NHANES] Answer Date Recorded In a typical week, how many times do you talk on the phone with family, friends, or neighbors? More than three times a week 10/26/2023 How often do you get togethe r with friends or relatives? More than three times a week 10/26/2023 How often do you attend chur ch or confucianist services? Never 10/26/2023 Do you belong to any clubs o r organizations such as samaritan groups, unions, fraternal or athletic groups, or school groups? No 10/26/2023 How often do you attend meet ings of the clubs or organizations you belong to? Never 10/26/2023 Are you , , di vorced, , never , or living with a partner? 10/26/2023 AUDIT-C Answer Date Recorded Q1: How often do you have a drink containing alc ohol? Monthly or less 10/26/2023 Q2: How many drinks containi ng alcohol do you have on a typical day when you are drinking? 1 or 2 10/26/2023 Q3: How often do you have si x or more drinks on one occasion? Never 10/26/2023 Overall Financial Resource Strain (CARDIA) Answe r Date Recorded How hard is it for you to pa y for the very basics like food, housing, medical care, and heating? Not hard at all 10/22/2023 PHQ-2 Answer Date Recorded PHQ-2 Total Score 2 10/26/2023 [facility] - Occupational Stress Questionnaire Answer Date Recorded Do you feel stress - tense, restless, nervous, or anxious, or unable to sleep at night because your mind is troubled all the time - these days? Not at all 10/26/2023 Exercise Vital Sign Answer Date Recorde d On average, how many days pe r week do you engage in moderate to strenuous exercise (like a brisk walk)? 0 days 10/22/2023 On average, how many minutes do you engage in exercise at this level? 0 min 10/22/2023 Hunger Vital Sign Answer Date Recorded Within the past 12 months, y ou worried that your food would run out before you got the money to buy more. Never true 10/22/19 24 Within the past 12 months, t he food you bought just didn't last and you didn't have money to get more. Never true 10/22/2023 [facility] - Transportation Answer Date Re corded In the past 12 months, has l ack of transportation kept you from medical appointments or from getting medications? No 10/11 In the past 12 months, has l ack of transportation kept you from meetings, work, or from getting things needed for daily living? No 10/22/2023 Housing Stability Vital Sign Answer Te e Recorded In the last 12 months, was t here a time when you were not able to pay the mortgage or rent on time? No 07/16/2022 In the last 12 months, how many places have you lived? 1 07/16/2022 In the last 12 months, was t here a time when you did not have a steady place to sleep or slept in a correction (including now)? No 07/16/2022 Housing Stability Vital Sign Answer Te e Recorded In the last 12 months, was t here a time when you were not able to pay the mortgage or rent on time? No 10/22/2023 In the past 12 months, how m any times have you moved where you were living? 1 10/22/2023 At any time in the past 12 m [facility], were you homeless or living in a correction (including now)? No 10/22/2023 Education Answer Date Recorded What is the highest level of school you have completed or the highest degree you have received? Associate degree: academic program 10/26/2023 Sex and Gender Information Value Date Recorded Sex Assigned at Not on file Legal Sex Male 9:30 AM EDT Gender Identity Other 05/30/2024 11:37 AM EST Sexual Orientation Don't know 05/30/2024 11 :37 AM EST Obstetrics History Last Filed Vital Signs Vital Sign Reading Time Taken Comments Blood Pressure 125/63 12/17/2023 3:48 PM EDT Pulse 101 12/17/2023 3:48 PM EDT Temperature 36.8 C (98.3 F) 12/17/2023 3:48 PM EDT Respiratory Rate 20 12/17/2023 3:48 PM EDT Oxygen Saturation 98% 11/02/2023 3:53 PM EDT Inhaled Oxygen Concentration - - Weight 200.9 kg (443 lb) 12/17/2023 3:48 PM EDT Height 190.5 cm (6' 3 ) 12/17/2023 3:48 PM EDT Body Mass Index 55.37 12/17/2023 3:48 PM EDT Plan of Treatment Health Maintenance Due Date Last Done Comments HIV Screening 1961 Diabetic Eye Exam 06/28/1979 Breast Cancer Screening 2001 Cologuard 2006 Colon Cancer Screening 2006 Colonoscopy 2006 FIT 2006 Sigmoidoscopy 2006 Virtual Colonography 2006 Zoster (2 of 2) 02/27/2020 01/02/2020 Pneumococcal Vaccine 50+ (2 of 2 - PCV) 07/21/2020 07/22/2019 RSV or 60+ (1 - Risk 60-74 years 1-dose series) 2021 Wellness Exam Medicare 03/04/2023 03/03/2022 Kidney Health: uACR 08/23/2023 08/22/2022 COVID-19 Vaccine ( - season) 2023 Kidney Health: eGFR 11/08/2024 11/09/2023, 11/02/2023, 11/01/2023, Additional history exists Hemoglobin A1c 11/24/2024 05/27/2024, 03/13, 10/23/2023, Additional history exists Influenza Vaccine (Season Ended) 2024 03/03/2022, 01/02/2020, 02/11/2018 DTaP/TDaP/Td (2 - Td or Tdap) 04/02/2025 04/02/2015 Lipids 05/26/2025 05/26/2024, 03/14, 07/14/2022, Additional history exists Hepatitis C Screening Completed 08/22/2022 Hepatitis B Vaccine Aged Out No longe r eligible based on patient's age to complete this topic Meningococcal B Vaccine Aged Out No l onger eligible based on patient's age to complete this topic Medical Devices Implanted Type Area Gauger Chief Delivery Device Identifier Shelf Expiration Date Model / Serial / Lot Floseal Hemostatic Matrix 10ml - [id number] Implanted:Qty: 6 on 03/29/2018 by Clark Moulton MD at [facility] N/A: Spine Thoracic [employer] 07/28/2019 [id number] / / [id number] Screw Multi Axial 5.5 X 30 Ti - [id number] Implanted:Qty: 4 on 03/29/2018 by Clark Moulton MD at [facility] N/A: Spine Thoracic [employer] [id number] / / Screw Multi Axial 5.5 X 35 Ti - [id number] Implanted:Qty: 4 on 03/29/2018 by Clark Moulton MD at [facility]/A: Spine Thoracic [employer] [id number] / / Screw Multi Axial 5.5 X 40 Ti - [id number] Implanted:Qty: 8 on 03/29/2018 by Calrk Moulton MD at [facility]/A: Spine Thoracic [employer] [id number] / / Matrix Dural Regeneration 1x3 - [id number] Implanted:Qty: 1 on 03/29/2018 by Clark Moulton MD at [facility]/A: Spine Thoracic [employer] 10/10/2020 [id number] / / [id number] [place] Matrix 5cm - [id number] Implanted:Qty: 1 on 03/29/2018 by Clark Moulton MD at [facility] 07/05/2020 [id number] / / Procedures Procedure Name Priority Date/Time Associated Diagnosis Comments BASIC METABOLIC PANEL Routine 11/09/2023 7:29 AM EDT Hypertension secondary to endocrine disorders Type 2 diabetes mellitus with diabetic neuropathy, unspecified (HCC) HEMOGLOBIN A1C Add-On 10/23/2023 4:03 AM EDT MICROALBUMIN/CREATI NINE RATIO URINE Routine 08/22/2022 LIPID SCREEN Routine 07/14/2022 5:15 AM EDT from Last 3 Months or Most Recently Relevant to Health Maintenance Results * (ABNORMAL) BASIC METABOLIC PANEL (11/09/2023 7:29 AM EDT) Sodium 136 135 - 145 mmol/L 11/09/2023 8:22 AM EDT [facility] Potassium 3.9 3.8 - 4.9 mmol/L 11/09/2023 8:22 AM EDT [facility] Chloride 100 98 - 107 mmol/L 11/09/2023 8:22 AM EDT [facility] Total CO2 33(H) 21 - 29 mmol/L 11/09/2023 8:22 AM EDT [facility] Anion Gap 3(L) 7 - 16 mmol/L 11/09/2023 8:22 AM EDT [facility] Calcium 9.1 8.4 - 10.2 mg/dL 11/09/2023 8:22 AM EDT [facility] BUN 17 9 - 20 mg/dL 11/09/2023 8:22 AM EDT [facility] Creatinine 0.70 0.52 - 1.25 mg/dL 11/09/2023 8:22 AM EDT [facility] Glucose Lvl 231(H) 70 - 140 mg/dL 11/09/2023 8:22 AM EDT [facility] eGFR (CKD-EPIcr 2020) 104 >=60 mL/min/1.7 3 m2 11/09/2023 8:22 AM EDT [facility] Comment:Estimated GFR was ca lculated using the CKD-EPIcr (2020) equation refit without race. The equation is recommended by the National Kidney Foundation - [place] Society of Nephrology Task Force. Blood VENOUS BLOOD / Unknown 11/09/2023 7:29 AM EDT 11/09/2023 7:30 AM EDT Aixa Aguilera MD CHEMISTRY ORDERABLES Final Res ult Performing Organization Address [facility] de Phone Number [facility] [address] [place] [address] * (ABNORMAL) HEMOGLOBIN A1C (10/23/2023 4:03 AM EDT) Hgb A1C 9.2(H) <=5.6 % 10/23/2023 12:41 PM EDT [facility] Comment:Indicative of diabet es Est. Avg Glucose 217 mg/dL 10/23/2023 12:41 PM EDT [facility] Blood VENOUS BLOOD / Unknown Venipuncture / Unknown 10/23/2023 4:03 AM EDT 10/23/2023 4:08 AM EDT Rafael Lisa MD CHEMISTRY ORDERABLES Final Res ult Performing Organization Address [facility] de Phone Number [facility] [address] [place] [address] [place] [address] * MICROALBUMIN/CREATININE RATIO URINE (08/22/2022) Sodium 138 137 - 147 MMOL/L [facility] Potassium 4.7 3.4 - 5.3 MMOL/L [facility] Chloride 103 99 - 108 MMOL/L [facility] CO2 30 MMOL/L [facility] Glucose 124 60 - 200 MG/DL [facility] BUN 21 4 - 21 MG/DL [facility] Creatinine 0.7 0.6 - 1.3 MG/DL [facility] EGFR 133.0 ML/MIN/1.7 3M2 [facility] WBC 9.0 X10(3)/MCL [facility] Hemoglobin, Plasma 13.3 [facility] Hematocrit 42.5 % [facility] Platelet 268 150 - 399 X10(3)/MCL [facility] Microalb, Ur 0.6 <=31 MG/L [facility] Creatinine, Urine 113 MG/DL [facility] Hep C Ab neg S/CORATIO [facility] Calcium 9.10 8.70 - 10.70 MG/DL [facility] Urine URINE SPECIMEN COLLECTION / Unknown 08/22/2022 Juan Cantu MD URINE ORDERABLES Final Re sult [facility] * (ABNORMAL) LIPID SCREEN (07/14/2022 5:15 AM EDT) Pathologist [facility] Cholesterol 163 <=200 mg/dL 07/14/2022 5:54 AM EDT [facility] Comment: < 200 Desirable 200 - 239 Borderline High >= 240 High Triglyceride 155(H) <=150 mg/dL 07/14/2022 5:54 AM EDT [facility] HDL 36(L) >=50 mg/dL 07/14/2022 5:54 AM EDT [facility] LDL Calculated 96 mg/dL 07/14/2022 5:54 AM EDT [facility] Comment: Desireable LDL Cholesterol: <130 mg/dL Borderline High Risk LDL Chol: 130-159 mg/dL High Risk LDL Cholesterol: >=160 mg/dL Blood VENOUS BLOOD / Unknown Venipuncture / Unknown 07/14/2022 5:15 AM EDT 07/14/2022 5:26 AM EDT Olga Lovelace NP CHEMISTRY ORDERABLES Final Res ult [facility] [address] [place] [address] from Last 3 Months or Most Recently Relevant to Health Maintenance Insurance [employer] MEDICARE ADVANTAGE PPO LIFE1 Advance Directives For more information, please contact: [phone] * Full Code (Latest Code Status on File) Date Activated Date Inactivated Comments 10/22/2023 4:17 PM 11/02/2023 10:16 PM * Full Code Date Activated Date Inactivated Comments 07/12/2022 6:03 PM 07/30/2022 6:03 PM * Full Code Date Activated Date Inactivated Comments 06/30/2022 1:52 PM 07/12/2022 5:45 PM * Full Code Date Activated Date Inactivated Comments 12/20/2019 6:08 PM 12/24/2019 10:02 PM * Full Code Date Activated Date Inactivated Comments 07/20/2019 7:32 PM 07/22/2019 7:58 PM
--- OUTSIDE RECORDS SUMMARY | 2024-10-05 09:03 | XMS_ITS | Encounter Summary ---
Author Organization [facility] [place] [address] Care Team Providers Care Automatic Edger Name Role Phone Unavailable Primary Care Provider Unavailabl e Reason for Visit * Reason Onset Date Comments Other 08/08/2024 Encounter Details Date Type Department Care Team (Late st Contact Info) Description 08/08/[address] [address] ReglaLora Arnold MA Other Social History Tobacco Use Types Packs/Day Years Used Date Smoking Tobacco: Former Cigarettes 1 3 1 977 - 1979 Smokeless Tobacco: Never Alcohol Use Standard Drinks/Week Comments Yes 1 (1 standard drink = 0.6 oz pur e alcohol) rarely B1300 Health Literacy Answer Date Recor ded How often do you need to hav e someone help you when you read instructions, pamphlets, or other written material from your doctor or pharmacy? Never 10/26/2023 [employer] Utilities Answer Date Recorded In the past 12 months has [employer], gas, oil, or water [employer] threatened to shut off services in your [...] week 10/26/2023 How often do you attend [facility] or sabianist services? Never 10/26/2023 Do you belong to any clubs o r organizations such as episcopalian groups, unions, fraternal or athletic groups, or [...] Date Recorded PHQ-2 Total Score 2 10/26/2023 [facility] - Occupational Stress Questionnaire Answer Date Recorded [...] place to sleep or slept in a mcfp (including now)? No 07/16/2022 Housing Stability Vital Sign Answer Te e Recorded In the last 12 months, was t here a time when you were not able to pay the mortgage or rent on time? No 10/22/2023 In the past 12 months, how m any times have you moved where you were living? 1 10/22/2023 At any time in the past 12 m ont, were you homeless or living in a mcfp (including now)? No 10/22/2023 Education Answer Date [...] AM EST documented as of this encounter Miscellaneous Notes * Telephone Encounter - Lora Harrison MA - 08/08/2024 10:47 AM EDT Spoke with [facility] Calls about names of previous wound care company's. Gave last two home health company names. No other information given. documented in this encounter Plan of Treatment Not on file documented as of this encounter Visit Diagnoses Not on filedocumented in this encounter Additional Health Concerns Assessment Noted Time PHQ-9 Depression Total Score: 2 10/26/19 24 2:00 PM EDT PHQ-2 Depression Total Score: 2 10/26/19 24 2:00 PM EDT documented as of this encounter
--- OUTSIDE RECORDS SUMMARY | 2024-10-05 09:03 | XMS_ITS | Encounter Summary ---
Author Organization [facility] [place] [address] Care Team Providers Care Information Systems Security Specialist Name Role Phone Juan Cantu MD Primary Care Provider [phone] Encounter Details Date Type Department Care Team (Late st Contact Info) Description 11/09/2023 Lab Requisition [facility] [address] [place] [address] Aixa Aguilera MD [address] [place] [address] [place] [id number] Hypertension secondary to endocrine disorders; Type 2 diabetes mellitus with diabetic neuropathy, unspecified (HCC) Social History Tobacco Use Types Packs/Day Years Used Date Smoking Tobacco: Former Cigarettes 1 3 1 977 - 1980 Smokeless Tobacco: Never Alcohol Use Standard Drinks/Week Comments Yes 1 (1 standard drink = 0.6 oz pur e alcohol) rarely B1300 Health Literacy Answer Date Recor ded How often do you need to hav e someone help you when you read instructions, pamphlets, or other written material from your doctor or pharmacy? Never 10/26/2023 [facility] Utilities Answer Date Recorded In the past [...] often do you attend chur ch or congregational services? Never 10/26/2023 Do you belong to any clubs o r organizations such as gnosticism groups, unions, fraternal or athletic groups, or [...] Date Recorded PHQ-2 Total Score 2 10/26/2023 [facility] - Occupational Stress Questionnaire Answer Date Recorded [...] place to sleep or slept in a fci (including now)? No 07/16/2022 Housing Stability Vital Sign Answer Te e Recorded In the last 12 months, was t here a time when you were not able to pay the mortgage or rent on time? No 10/22/2023 In the past 12 months, how m any times have you moved where you were living? 1 10/22/2023 At any time in the past 12 m [facility], were you homeless or living in a fci (including now)? No 10/22/2023 Education Answer Date [...] Associated Diagnosis Comments CBC WITH DIFF Routine 11/09/2023 7:29 AM EDT Hypertension secondary to endocrine disorders Type 2 diabetes mellitus with diabetic neuropathy, unspecified (HCC) BASIC METABOLIC PANEL Routine 11/09/2023 7:29 AM EDT Hypertension secondary to endocrine disorders Type 2 diabetes mellitus with diabetic neuropathy, unspecified (HCC) documented in this encounter Results * (ABNORMAL) CBC WITH DIFF (11/09/2023 7:29 AM EDT) WBC 6.0 4.5 - 11.0 x10(3)/[facility] 11/09/2023 8:21 AM EDT [facility] RBC 4.42 4.30 - 5.90 x10(6)/mcL 11/09/2023 8:21 AM EDT [facility] Hgb 10.7(L) 13.2 - 17.3 g/dL 11/09/2023 8:21 AM EDT [facility] Hct 36.0(L) 39.0 - 55.0 % 11/09/2023 8:21 AM EDT [facility] MCV 81.4 81.0 - 101.0 fL 11/09/2023 8:21 AM EDT [facility] MCH 24.2(L) 27.0 - 31.0 pg 11/09/2023 8:21 AM EDT [facility] MCHC 29.7(L) 33.0 - 36.0 g/dL 11/09/2023 8:21 AM EDT [facility] Platelet 302 150 - 400 x10(3)/[facility] 11/09/2023 8:21 AM EDT [facility] MPV 9.9 7.4 - 10.4 fL 11/09/2023 8:21 AM EDT [facility] Neut Percent 50.9 % 11/09/2023 8:21 AM EDT [facility] Lymph Percent 33.9 % 11/09/2023 8:21 AM EDT [facility] [place] Percent 9.9 % 11/09/2023 8:21 AM EDT [facility] Eos Percent 4.0 % 11/09/2023 8:21 AM EDT [facility] Baso Percent 0.8 % 11/09/2023 8:21 AM EDT [facility] RDW 48.1(H) 35.1 - 43.9 fL 11/09/2023 8:21 AM EDT [facility] NRBC Auto % 0.0 <=1.0 % 11/09/2023 8:21 AM EDT [facility] Imm Gran% 0.5 % 11/09/2023 8:21 AM EDT [facility] IMMGRAN# 0.0 <=0.0 x10(3)/[facility] 11/09/2023 8:21 AM EDT [facility] Neut # 3.0 1.8 - 7.7 x10(3)/[facility] 11/09/2023 8:21 AM EDT [facility] Lymph # 2.0 1.0 - 4.8 x10(3)/[facility] 11/09/2023 8:21 AM EDT [facility] [place] # 0.6 0.0 - 0.8 x10(3)/[facility] 11/09/2023 8:21 AM EDT [facility] Eos# 0.2 0.0 - 0.7 x10(3)/[facility] 11/09/2023 8:21 AM EDT [facility] Baso # 0.1 0.0 - 0.2 x10(3)/[facility] 11/09/2023 8:21 AM EDT [facility] Blood VENOUS BLOOD / Unknown 11/09/2023 7:29 AM EDT 11/09/2023 7:30 AM EDT us Aixa Aguilera MD HEMATOLOGY ORDERABLES Final Re sult [facility] [address] [place] [id number] * (ABNORMAL) BASIC METABOLIC PANEL (11/09/2023 7:29 AM EDT) Sodium 136 135 - 145 mmol/L 11/09/2023 8:22 AM EDT [facility] Potassium 3.9 3.8 - 4.9 mmol/L 11/09/2023 8:22 AM EDT [facility] Chloride 100 98 - 107 mmol/L 11/09/2023 8:22 AM EDT [facility] Total CO2 33(H) 21 - 29 mmol/L 11/09/2023 8:22 AM EDT [facility] Anion Gap 3(L) 7 - 16 mmol/L 11/09/2023 8:22 AM EDT [facility] Calcium 9.1 8.4 - 10.2 mg/dL 11/09/2023 8:22 AM EDT [facility] BUN 17 9 - 20 mg/dL 11/09/2023 8:22 AM EDT [facility] Creatinine 0.70 0.52 - 1.25 mg/dL 11/09/2023 8:22 AM EDT [facility] Glucose Lvl 231(H) 70 - 140 mg/dL 11/09/2023 8:22 AM EDT [facility] eGFR (CKD-EPIcr 2020) 104 >=60 mL/min/1.7 3 m2 11/09/2023 8:22 AM EDT [facility] Comment:Estimated GFR was ca lculated using the CKD-EPIcr (2020) equation refit without race. The equation is recommended by the [employer] - [place] [employer]ph[employer] Task Force. Blood VENOUS BLOOD / Unknown 11/09/2023 7:29 AM EDT 11/09/2023 7:30 AM EDT Aixa Aguilera MD CHEMISTRY ORDERABLES Final Res ult [facility] [address] [place] [address] documented in this encounter Visit Diagnoses Diagnosis Hypertension secondary to endocrine disorders Other secondary hypertension, unspecified Type 2 diabetes mellitus with diabetic neuropathy, unspecified (HCC) documented in this encounter Additional Health Concerns Assessment Noted Time PHQ-9 Depression Total Score: 2 10/26/19 24 2:00 PM EDT PHQ-2 Depression Total Score: 2 10/26/19 2:00 PM EDT documented as of this encounter Care Teams Information Systems Security Specialist Relationship Specialty Start Date End Date Juan Cantu MD [address] [place] [address] PCP - General Internal Medicine 08/27/18 03/27/24 documented as of this encounter
[2024-10-05 09:11] LABS: Basophils % 0.1 % (0.1-2.0); Hematocrit 34.3 % (42.0-52.0); Hemoglobin 10.3 g/dL (14.1-18.0); Immature Granulocytes # 0.12 10^3uL; Immature Granulocytes % 0.7 %; Lymphocytes # 1.3 K/mm3 (0.7-4.5); Lymphocytes % 6.8 % (10-50); Mean Corpuscular Hemoglobin 21.3 pg (27.0-31.2); Mean Platelet Volume 9.3 fl (7.4-10.4); Monocytes # 0.7 K/mm3 (0.1-1.0); Monocytes % 3.7 % (1.7-9.3); Neutrophils # 16.4 K/mm3 (1.8-7.8); Neutrophils % 88.7 % (37.0-80.0); Nucleated Red Blood Cells # 0 10^3/uL; Nucleated Red Blood Cells % 0 %; Platelet Count 592 K/mm3 (142-424); Red Blood Count 4.83 M/mm3 (4.60-6.20); Red Cell Distribution Width 18.6 % (11.5-17.5); Red Cell Distribution Width-SD 46.4 fL; White Blood Count 18.4 K/mm3 (4.8-10.8)
[2024-10-05 09:20] LABS: Albumin Level 3.5 g/dl (3.5-5.0)
[2024-10-05 09:21] LABS: Sodium 126 mmol/L (136-145)
[2024-10-05 09:23] LABS: Blood Urea Nitrogen 45 mg/dl (9-20); Creatinine Clearance Estimated 75 mL/min (50-200); Estimated Glomerular Filt Rate 61 ml/min (>60); GFR (African American) 74 ML/MIN (>60)
[2024-10-05 09:24] LABS: Alanine Aminotransferase 29 U/L (12-78); Albumin/Globulin Ratio 0.9 (1.1-1.8); Alkaline Phosphatase 191 U/L (38-126); Anion Gap 19.6 mEq/L (5-15); Aspartate Amino Transferase 32 U/L (17-59); Bilirubin,Total 1.2 mg/dl (0.2-1.3); Carbon Dioxide 35 mmol/L (22.0-30.0); Globulin 3.8 g/dL (1.3-3.2); Total Protein,Serum 7.3 g/dl (6.3-8.2)
[2024-10-05 09:29] LABS: Chloride 74 mmol/L (98-107); Glucose 584 mg/dl (74-100); Potassium 2.6 mmoL/L (3.5-5.1)
[2024-10-05 09:33] LABS: NT Pro Brain Natriuretic Pep. 4220 pg/mL (0-125)
[2024-10-05] MEDS: dilTIAZem 25MG/5ML VIAL 20 MG IV ×2 (09:33→12:38)
[2024-10-05] MEDS: SODIUM CHLORIDE 0.9% 500ML BAG 500 ML IV (09:33)
[2024-10-05] MEDS: MAGNESIUM SULFATE IN WATER 2 GM/50 ML PIGGYBACK IV (09:33)
[2024-10-05 09:35] LABS: Troponin I 0.04 ng/ml (0.00-0.034)
[2024-10-05] MEDS: dilTIAZem HCL 180MG CAP.ER.24H 180 MG PO (09:45)
[2024-10-05] MEDS: POTASSIUM CHLORIDE 20MEQ TAB 60 MEQ PO (09:47)
[2024-10-05] MEDS: KCl 20mEq/100ml 100 ML 50 MEQ IV ×3 (09:48→13:29)
[2024-10-05 09:50] LABS: VBG Base Excess 10.3 mmol/L (-2.4-2.3); VBG Oxygen Saturation 82.1 % (50-70); VBG PCO2 34.3 mmol/L (35-51); VBG PO2 41.8 mmol/L (28-40); VBG Total CO2 33.1 mmol/L (23-27)
[2024-10-05 09:53] LABS: VBG PH 7.59 mmol/L (7.31-7.41)
[2024-10-05 09:54] LABS: Lactate Venous 4.7 mmol/L (0.4-2.0)
--- NOTE | 2024-10-05 09:59 | ED_ITS ---
Discharge Plan Disposition Patient Disposition: Admitted Clinical Impressions Clinical Impression: CHF exacerbation, DKA (diabetic ketoacidosis), Alkalosis, metabolic, SIRS (systemic inflammatory response syndrome), Atrial fibrillation with RVR Discharge ED Provider: Gino Ardon HPI General Chief Complaint: Shortness of Breath/Dyspnea Stated Complaint: SOA Time Seen by Provider: 10/05/24 09:02 Mode of Arrival: EMS Source of Information: Patient, EMS and Medical Record Description of Symptoms (Recalled from ER Triage Doc. by RN): Pt c/o SOA for 3 days. Denies any cough, congestion, body aches, fever, or chills. Denies any chest pain. Per EMS pt's sp02 is > 90%. Denies any hx of copd/asthma. He does have CHF and reports to be taking his medication for afib and chf. BLE have unna boots in place. History of Present Illness HPI narrative: Please note that above description of symptoms, in this electronic medical record under categorization of recalled from ER triage doctor by RN are reflective of an initial nursing assessment, however, is not reflective of my full history and physical exam that was personally taken and clarified. Consequentially, this preceding description of symptoms, which may include the patient's categorized chief complaint in the EMR, do not reflect my personal clinical impression, and the ultimate description of history of present illness and patient stated complaints should be deferred to this section of the note. Unless stated otherwise or congruent with this section of the note, additional signs, symptoms, or incongruence should be interpreted as inaccurate with my clinical impression. Related Data Home Medications ?Medication ?Instructions ?Recorded ?Confirmed ondansetron 4 mg disintegrating 4 mg PO Q8HP PRN nause a and 07/28/24 10/05/24 tablet vomiting paroxetine HCl 20 mg tablet 20 mg PO DAILY 07/30/24 insulin glargine 100 unit/mL (3 75 unit SQ BID 5 10/05/24 mL) subcutaneous pen (Lantus Solostar U-100 Insulin) Previous Rx's ?Medication ?Instructions ?Recorded pantoprazole 40 mg tablet,delayed 40 mg PO HS 30 days #30 tabs 06/21/24 release insulin lispro 100 unit/mL See Protocol SQ ACHS 30 day s #1.2 08/01/24 subcutaneous solution (Humalog mL U-100 Insulin) tizanidine 4 mg tablet 4 mg PO TID PRN Muscle cramp s 30 08/01/24 days #30 tabs tramadol 50 mg tablet 50 mg PO Q8H PRN pain #15 ta bs 08/12/24 tirzepatide 2.5 mg/0.5 mL 2.5 mg (0.5 mL) SQ WEEKLY 30 days 09/15/24 subcutaneous pen injector #2.5 mL (Mounjaro) apixaban 5 mg tablet (Eliquis) 5 mg PO BID 30 days #60 tabs 09/22/24 bumetanide 2 mg tablet 3 mg (1.5 x 2 mg) PO TID 30 days 09/22/24 #90 tabs hydrocodone 5 mg-acetaminophen 325 1 tab PO Q6HP PRN M oderate Pain 09/22/24 mg tablet (4-6) 3 days #11 tabs metolazone 2.5 mg tablet 5 mg (2 x 2.5 mg) PO DAILY 3 0 days 09/22/24 #60 tabs metoprolol succinate 25 mg 25 mg PO DAILY 30 days #30 tabs 09/22/24 tablet,extended release 24 hr nystatin 100,000 unit/gram topical 1 applic topical QI D #60 grams 09/22/24 powder pregabalin 100 mg capsule 100 mg PO TID 30 days #90 ca ps 09/22/24 Allergies Allergy/AdvReac Type Severity Reaction Status Date / Time hydromorphone (From Dilaudid) AdvReac Vomiting Verified 09/02/24 10:49 morphine AdvReac Vomiting Verified 09/02/24 10:49 [facility] Disclaimer: The information contained in this section may have been updated after the patient was seen, as this information can be updated by other users. 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 Social History Smoking Status: Former smoker alcohol intake: never current occupational status: retired and disabled Travel in the last 8 weeks?: None Have you lived/traveled outside [place] in past 30 days?: No Contact w/someone who lives/traveled outside US past 30 days?: No Exposure to someone with infectious disease in past 14 days?: No Do you have a fever (greater than 100.4 F or 38 C)?: No Have you tested positive for COVID-19?: No Exposed to someone with COVID-19 in past 14 days?: No Do you have a sore throat?: No Do you have a cough?: No Do you have any weakness?: No Do you have any diarrhea?: No Are you experiencing any unusual bleeding?: No Do you have any muscle aches/pain?: No Do you have any abdominal pain?: No Are you experiencing loss of taste or smell?: No Other Medical History Have you received the Flu Vaccine for this season: No Have you received the Pneumonia Vaccine: No ROS Obtained: Yes All systems reviewed & no additional complaints except as documented Physical Exam General General appearance: alert Head Head exam: atraumatic and normocephalic Eye Eye exam: Present normal appearance, PERRL and EOMI Neck Neck exam: Present normal inspection, full ROM and trachea midline Chest Chest inspection: Present normal inspection and symmetric chest wall rise Respiratory Respiratory exam: Absent respiratory distress, wheezes, stridor, accessory muscle use or prolonged expiratory phase Cardiovascular Cardiovascular exam: Present tachycardia, irregular rhythm and other (Pulses equal symmetric in upper and lower extremities) Abdominal Exam Abdominal exam: Present soft; Absent distention, tenderness, guarding, rebound or pulsatile mass Extremities Exam Extremities exam: Present edema Back Exam Back exam: Present other (Sacral decubitus wounds) Neurological Exam Neurological exam: Present alert, oriented X3 and CN II-XII intact; Absent motor sensory deficit Skin Skin exam: Present warm and dry; Absent diaphoresis or erythema HEART Score HEART Score HEART Score assessment performed?: Yes History (anamnesis): Slightly suspicious ECG: Non-specific disturbance Age: 45-65 years Risk factors: 3 or more risk factors Troponin: 1-3x normal limit HEART Score: 5 Critical Care Critical Care Time Critical Care Time: Yes (cardiac, metabolic, infectious) Attestation: On 10/05/24, the high probability of a clinically significant, sudden or life threatening deterioration of the following system(s) required my full and direct attention, intervention and personal management. The time I documented below is in addition to time spent performing reported procedures but includes the following listed in this critical care notation. Total Time Total Critical Care Time: 75 Medical Decision Making Medical Records Medical records reviewed: Yes I reviewed the patient's medical records. Madi Inquiry Pt receiving controlled substance: No Madi was queried for this patient: No Vital Signs Vital Signs: 10/05/24 08:51 10/05/24 09:01 10/05/24 09:30 Temperature 98.0 F Temperature Source Axillary Pulse Rate 73 118 H Pulse Rate [Right] 112 H Respiratory Rate 29 H 22 Blood Pressure 100/76 L 125/79 Blood Pressure [Right Arm] 98/61 L Blood Pressure Mean 80 Blood Pressure Mean [Right Arm] 73 Blood Pressure Source [Right Arm] Automatic Cuff 02 Sat by Pulse Oximetry 96 97 87 L Oxygen Delivery Method Room Air Room Air 10/05/24 10:31 10/05/24 12:01 10/05/24 12:31 Temperature Temperature Source Pulse Rate 70 126 H 117 H Pulse Rate [Right] Respiratory Rate 20 22 22 Blood Pressure 131/65 120/81 136/82 Blood Pressure [Right Arm] Blood Pressure Mean 87 92 86 Blood Pressure Mean [Right Arm] Blood Pressure Source [Right Arm] 02 Sat by Pulse Oximetry 98 96 96 Oxygen Delivery Method Lab Data Labs: Lab Results 10/05/24 08:55: WBC 18.4 H, RBC 4.83, Hgb 10.3 L, Hct 34.3 L, MCV 71.0 L, MCH 21.3 L, MCHC 30.0 L, RDW 18.6 H, Plt Count 592 H, MPV 9.3, Neut % (Auto) 88.7 H, Lymph % (Auto) 6.8 L, [place] % (Auto) 3.7, Eos % (Auto) 0.0 L, Baso % (Auto) 0.1, Neut # (Auto) 16.4 H, Lymph # (Auto) 1.3, [place] # (Auto) 0.7, Eos # (Auto) 0.0, Baso # (Auto) 0.0, Sodium 126 L, Potassium 2.6 L*, Chloride 74 L, Carbon Dioxide 35 H, Anion Gap 19.6 H, BUN 45 H, Creatinine 1.20, Estimated Creat Clear 75, Estimated GFR 61, Est GFR ( Amer) 74, Glucose 584 H*, Calcium 9.0, Total Bilirubin 1.2, AST 32, ALT 29, Alkaline Phosphatase 191 H, Troponin I 0.04 H, N T-Pro-B Natriuret Pep 4220 H, Total Protein 7.3, Albumin 3.5, Globulin 3.8 H, A lbumin/Globulin Ratio 0.9 L 10/05/24 09:37: VBG pH 7.59 H, VBG pCO2 34.3 L, VBG pO2 41.8 H, VBG HCO3 32.0 H, VBG Total CO2 33.1 H, VBG O2 Saturation 82.1 H, VBG Base Excess 10.3 H, VBG Lactic Acid 4.7 H 10/05/24 10:38: Urine Color Yellow, Urine Appearance Clear, Urine pH 6.0, Ur Specific [place] <= 1.005, Urine Protein Trace, Urine Glucose (UA) 3+, Urine Ketones 1+, Urine Blood Trace-l, Urine Nitrate Negative, Urine Bilirubin Negative, Urine Urobilinogen 0.2, Ur Leukocyte Esterase Negative, Urine RBC Occasional, Urine WBC 5-10, Ur Squamous Epith Cells Occasional, Urine Bacteria Trace, Urine Yeast Occasional 10/05/24 08:55 10/05/24 08:55 Response Orders (Tests/Meds): ED MEDICATIONS Generic Name Dose Route Start Last Admin Trade Name Freq PRN Reason Stop Dose Admin Acetazolamide 250 mg 10/05/24 13:15 Acetazolamide 250 Mg Tablet PO 11/04/24 13:14 BID JESSICA Apixaban 5 mg 10/05/24 21:00 Apixaban 5mg Tablet PO 11/04/24 20:59 BID JESSICA Potassium Chloride/Water 100 mls @ 50 mls/hr 10/05/24 09:37 10/05/24 11:15 Potassium Chloride 20meq/100ml Ivpb IV 10/05/24 15:36 50 mls/hr Q2H JESSICA Administration Vancomycin HCl 3,000 mg/ 500 mls @ 166.667 mls/hr 10/05/24 10:30 10/05/24 11:15 Sodium Chloride IV 10/05/24 13:29 166.667 mls/hr ONCE ONE Administration Insulin Glargine 60 unit 10/05/24 21:00 Insulin Glargine 100 Units/Ml 3ml Flexpen SUBCUT 11/04/24 20:59 BID [facility] Insulin Human Lispro 0 unit 10/05/24 13:15 Humalog 100 Units/Ml 10ml Vial ([facility]) SUBCUT 11/04/24 13:14 Q4H [facility] Protocol Metoprolol Succinate 25 mg 10/06/24 09:00 Metoprolol Succinate Xl 25mg Tablet PO 11/05/24 08:59 DAILY [facility] Non-Formulary Medication 3 mg 10/05/24 16:00 Bumetanide PO 11/04/24 15:59 BIDL [facility] Pantoprazole Sodium 40 mg 10/05/24 21:00 Pantoprazole 40mg Tablet PO 11/04/24 20:59 HS [facility] Paroxetine HCl 20 mg 10/06/24 09:00 Paroxetine 20mg Tablet PO 11/05/24 08:59 DAILY [facility] Pregabalin 100 mg 10/05/24 21:00 Pregabalin 100mg Capsule PO 11/04/24 20:59 TID [facility] Tramadol HCl 50 mg 10/05/24 13:04 Tramadol 50mg Tablet PO 11/04/24 13:03 Q6HP PRN Moderate to Severe Pain (4-10) Discontinued Medications Generic Name Dose Route Start Last Admin Trade Name Freq PRN Reason Stop Dose Admin Diltiazem HCl 20 mg 10/05/24 09:11 10/05/24 09:33 Diltiazem 25mg/5ml Vial IV 10/05/24 09:12 20 mg ONCE ONE Administration Diltiazem HCl 180 mg 10/05/24 09:11 10/05/24 09:45 Diltiazem Hcl 180mg Cap.Er.24h PO 10/05/24 09:12 180 mg ONCE ONE Administration Diltiazem HCl 20 mg 10/05/24 12:35 10/05/24 12:38 Diltiazem 25mg/5ml Vial IV 10/05/24 12:36 20 mg ONCE ONE Administration Furosemide 40 mg 10/05/24 11:27 10/05/24 12:38 Furosemide 40mg/4ml Vial IV 10/05/24 11:28 40 mg ONCE ONE Administration Magnesium Sulfate 2 gm in 50 mls @ 50 mls/hr 10/05/24 09:02 10/05/24 09:33 Magnesium Sulfate 2gm/50ml Premix IV 10/05/24 10:01 50 mls/hr ONCE ONE Administration Cefepime HCl 2 gm/ Sodium 100 mls @ 200 mls/hr 10/05/24 10:02 10/05/24 10:43 Chloride IV 10/05/24 10:31 200 mls/hr ONCE ONE Administration Miscellaneous 1 each 10/05/24 10:15 Vancomycin Consult Request NOTAPPLIC 11/04/24 10:14 CONSULT PHARMACY [facility] Potassium Chloride 60 meq 10/05/24 09:37 10/05/24 09:47 Potassium Chloride 20meq Tab PO 10/05/24 09:38 60 meq ONCE ONE Administration Sodium Chloride 500 ml 10/05/24 09:12 10/05/24 09:33 Sodium Chloride 0.9% 500ml Bag IV 10/05/24 09:13 500 ml ONCE ONE Administration ORDERS Category Date Time Status CXR --portable [XR chest portable] Stat Exams 10/05/24 09:02 Completed Basic Metabolic Panel Routine Lab 10/05/24 16:00 Ordered CBC w/Auto Diff [Complete Blood Count Auto Diff] Stat Lab 10/05/24 08:55 Completed CMP [Comprehensive Metabolic Panel] Stat Lab 10/05/24 08:55 Completed Complete Blood Count Auto Diff AMLAB Lab 10/06/24 06:00 Ordered Comprehensive Metabolic Panel AMLAB Lab 10/06/24 06:00 Ordered Magnesium AMLAB Lab 10/06/24 06:00 Ordered NT Pro Brain Natriuretic Pep. Stat Lab 10/05/24 08:55 Completed Trop I [Troponin I] Stat Lab 10/05/24 08:55 Completed Troponin I Q3H Lab 10/05/24 12:43 Received Troponin I Q3H Lab 10/05/24 15:15 Ordered UA [Urinalysis and Microscopic] Stat Lab 10/05/24 10:38 Completed Blood Culture Stat Micro 10/05/24 10:39 Received VBG [Venous Blood Gas] Stat RT 10/05/24 09:37 Completed MDM Narrative Medical Decision Narrative: This is a 64-year-old male with history of hypertension, hyperlipidemia, type 2 diabetes, CHF, LORI, atrial fibrillation on Eliquis presenting with shortness of breath. Getting worse over the last 3 to 4 days. States he has been taking his medications. No fevers or chills, vomiting, diarrhea, abdominal pain, chest pain. Sleeps sitting up, this has not changed. Lower extremity edema has not gotten any better or worse. Came in for further evaluation with EMS. On arrival, appears clinically well. He speaking in full sentences, lungs are clear, he is tachycardic with irregular rhythm in the 120s to 130s. Cardiac exam without murmurs gallops or rubs. Abdomen is soft, nontender, nondistended. History was obtained via conversation with patient. On arrival, patient hemodynamically stable, alert, oriented x4, appropriate, GCS 15, moving all extremities spontaneously, pupils equal and reactive to light. Differential includes medication noncompliance, CHF, ACS, KS, pneumothorax, pneumonia, sepsis, DKA, thyroid abnormality, other endocrinologic abnormality, dehydration, heat exhaustion, among others. Patient was given fluids initially for symptomatic management and correction of underlying abnormalities. Patient placed on continuous cardiac monitoring and continuous pulse ox with initial blood pressure 98/61, heart rate 112, saturation 96% on room air. Independent interpretation of EKG shows atrial fibrillation 147 bpm with QRS 105, QTc 421. Leftward axis. Wandering baseline, but no obvious acute ischemic changes. Intermittent PACs. Workup independently interpreted and significant for leukocytosis to 18,000 with neutrophilia as well as reactive thrombocytosis of 592. Patient's VBG with metabolic alkalosis 7.59 CO2 a little low at 34.3. Lactate 4.7. Patient's chemistry with hyponatremia versus pseudohyponatremia 126, hypokalemia 2.6, glucose 584 and anion gap 19.6. Normal kidney function consistent with DKA. Patient's troponin 0.04 and BNP elevated at 4000, highest its ever been. On independent interpretation of imaging, patient has cardiomegaly, otherwise clear lung john. See radiology read for full review of final results. Heart score 5. Patient was given IV and p.o. potassium, also given IV fluids prior to receiving insulin. Did not want to cause patient become any more hypokalemic. Hospital medicine was contacted and case was discussed at length, doing rounds needed to be called back around 940. Called back around 1005, in patient's room. Needed callback. Called back around 11:40 AM, patient's medical complexity out stripping capacity here at [facility]. 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 Also currently in mixed metabolic alkalosis and respiratory acidosis and what appears to be DKA as well. Patient's anion gap 19.6, could be related to lactic acid of 4.7, but with elevated glucose at 584 and potassium low at 2.6, sodium low at 126 and chloride low at 74, what appears to be hypochloremic metabolic alkalosis. Given the patient is also in heart failure necessitating diuresis, IV Lasix was administered, but concern for continued worsening of alkalosis was also weighed knowing that contraction alkalosis possible. Hospital medicine requesting transfer for endocrinology as well as potentially nephrology in the setting of patient developing severe LUPE nearly every time he is admitted here. [facility] was contacted and case was discussed, they are on divert. [facility] in [place] contacted state that they do not have inpatient endocrinology. I checked on patient in between phone calls, states he is still feeling all right, but remains tachycardic in the 120s, another dose of diltiazem was administered. Appropriate response with rates in the mid to high 90s. Patient continues to be unpleasant making call outs every 2 to 5 minutes and being rude to staff. Because of diuresis, recommended catheter, patient adamantly declining catheter states he wants the vacuum. This to be placed. Patient also states that he wants to be in a hospital bed. It was explained that we cannot put him in a hospital bed until we know where he is going as we do not have any true hospital beds down here in the emergency department. He voices understanding. [facility] was called, they also do not have inpatient endocrinology. [facility] was called around 1230, they have inpatient endocrinology, but are at capacity at this time. Waitlisted patient but took all information. I contacted hospital medicine at [facility] again to discuss the case patient to be admitted until waitlisted bed opens up at . Treatment for DKA, decompensated metabolic alkalosis, CHF exacerbation and A-fib with RVR, will be covered empirically for sepsis. Nursing Associate disclaimer Much of this encounter note is an electronic varnisher plasticoater spoken language to printed text. Electronic varnisher plasticoater of the spoken language may permit errors. Although I have reviewed the note, some errors may still exist.
--- NOTE | 2024-10-05 10:19 | PC.NURSE ---
Still waiting to hear back from about possibly admitting the pt.
[2024-10-05 10:42] LABS: Microscopic, Urine URINE MICROSCOPIC (MICROSCOPIC)
[2024-10-05] MEDS: CEFEPIME HCL 2 GM in 0.9 % SODIUM CHLORIDE 100 ML IV (10:43)
[2024-10-05 10:44] LABS: Appearance,Urine CLEAR (Clear); Bilirubin,Urine Negative (Negative); Blood, Urine TRACE-L (Negative); Color,Urine YELLOW (Yellow); Glucose,Urine (UA) 3+ (Negative); Ketones,Urine 1+ (Negative); Leukocyte Esterase,Urine Negative (Negative); Nitrate,Urine Negative (Negative); Protein,Urine TRACE (Negative); Specific Gravity, Urine <= 1.005 (1.005-1.030); Urobilinogen,Urine 0.2 EU/dl (0.2)
[2024-10-05 11:06] LABS: Bacteria,Urine Trace /lpf; RBC,Urine Occasional #/hpf (0-3); Squamous Epithelial Cell,Urine Occasional #/hpf (0-5); Yeast,Urine Occasional /lpf
[2024-10-05] MEDS: VANCOMYCIN HCL IV (11:15)
[2024-10-05] MEDS: SODIUM CHLORIDE 0.9% IV (11:15)
--- NOTE | 2024-10-05 12:11 | PC.NURSE ---
Pt called out stated I pooped myself and I need cleaned up . Pt knows when he needs to go and typically goes to the bathroom via walker/wheelchair at home however he did not call out to use the bathroom this occasion. Staff have been in the room multiple times for recurrent requests for water, urinal, blanket, and help to reposition pt. Asked for pt to call out when he has the need to go to the bathroom for a BM he stated You can clean me up . I again let pt know to call out when he has the need to go. He requested a chux behind his bottom so he can have a BM in it rather that walking. Pt refuses to get into the stretcher/bed or recliner chair. He only wants to sit in a bariatric wheelchair.
--- NOTE | 2024-10-05 12:16 | PC.NURSE ---
Per i called [facility] for a possible patient transfer and they were at dull capacity so he asked me to call [facility] and they were also at full capacity. At this time he also asked me to call [facility] and for a possible patient transfer and they will call back when the hospitalist is ready to speak with Dr. Ardon.
--- NOTE | 2024-10-05 12:20 | PC.NURSE ---
Pt called out and asked are they admitting me or not . I let him know that our hospitalist felt he needed to see endocrinology and recommended that we send to a tertiary facility. I updated him on the provider has reached out to [facility], [facility], [facility], and . Pt states, send me the doctor . I let him know the Dr Ardon is currently on the phone with but I would let him know pt requests to speak with him. Pt yelled I want the doctor! . I let him know we are not going to yell, that I will talk to the doctor. I asked if there were any questions I could answer, pt proceeded to yell again the doctor, I want the doctor! . I educated the pt on hospital policies. He is also now requesting a real bed . He is refusing the er stretcher. I called dry house tender, Valerie Lal RN, to request a hospital bed. I let her know pt is refusing the Air mattress bed .
--- NOTE | 2024-10-05 12:34 | PC.NURSE ---
Pt sister at bedside. Dr Ardon spent approx 15 min at bedside to s/w pt & his sister and update them on the plan.
[2024-10-05] MEDS: FUROSEMIDE 40MG/4ML VIAL 40 MG IV (12:38)
--- NOTE | 2024-10-05 12:52 | PC.NURSE ---
place purewick on pt
--- NOTE | 2024-10-05 12:55 | PC.NURSE ---
Dr Ardon s/w Dr Wu
--- NOTE | 2024-10-05 13:04 | PC.NURSE ---
Dr Wu does agree to accept pt for sepsis, dka, and chf exacerbation.
--- NOTE | 2024-10-05 13:05 | PC.NURSE ---
notified salesperson household appliances for admission
--- NOTE | 2024-10-05 13:07 | EXP.HP ---
History of Present Illness *Admission Date: 10/05/24 *Reason for visit:: Feeling weak and confused *History of present illness: Mr. Christiansen is a 64-year-old male with significant past medical history and recurrent readmissions to hospital. He has a history of morbid obesity for entheses though his weight appears down somewhat this visit compared to last visit), HFpEF, uncontrolled diabetes, LORI, chronic lower extremity lymphedema, multiple pressure wounds, partial right foot amputation, urinary incontinence, inability to care for his self, A-fib, chronic anticoagulation and CKD with several episodes of LUPE in the past 6 months. He presented to the ER today due to worsening shortness of breath and feeling dehydrated over the past few days per his report. States has been taking his medication. Denies fever or chills. No vomiting or diarrhea. No chest pain. Denies any cough. Sleeps sitting up at home, this is chronic. Legs in clean wraps today. Not having as much weeping in his legs. Was brought to the ER via EMS. On arrival, is speaking in full sentences. Workup in the ER showed tachycardia with heart rate in the 120s to 130s. Significant disturbances on labs with white count of 18.4, sodium of 126, chloride of 74, pH of 7.59 on VBG with pCO2 of 34 and bicarb of 35. Kidney function with BUN 45 creatinine 1.2 which is improved from last admission 2 weeks ago. BNP elevated higher than it has been in the past at 4200. Potassium low at 2.6. Glucose severely elevated to 584. Given his significant disturbances, worsening diabetes control, initially recommended to the ER that patient be transferred for endocrine and multidisciplinary approach given complexity of patient and episodes of worsening kidney function when he has been admitted to our institution. Attempts were made to transfer patient. He was placed on a wait list at . At this time, unable to transfer however. Medicine admitted for further management. On arrival to the floor, patient states he feels a little bit better than when he first came in. Has no oxygen requirement at this time. Heart rate is improved. [facility] Disclaimer: The information contained in this section may have been updated after the patient was seen, as this information can be updated by other users. 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 Family History Other No significant family history Social History Smoking Status: Former smoker alcohol intake: never current occupational status: retired and disabled Travel in the last 8 weeks?: None Have you lived/traveled outside [place] in past 30 days?: No Contact w/someone who lives/traveled outside US past 30 days?: No Exposure to someone with infectious disease in past 14 days?: No Do you have a fever (greater than 100.4 F or 38 C)?: No Have you tested positive for COVID-19?: No Exposed to someone with COVID-19 in past 14 days?: No Do you have a sore throat?: No Do you have a cough?: No Do you have any weakness?: No Do you have any diarrhea?: No Are you experiencing any unusual bleeding?: No Do you have any muscle aches/pain?: No Do you have any abdominal pain?: No Are you experiencing loss of taste or smell?: No Other Medical History Have you received the Flu Vaccine for this season: No Have you received the Pneumonia Vaccine: No Review of Systems Review of Systems Review of systems (narrative): 14 point review of systems performed, pertinent positives and negatives as per HPI Meds Home Medications and Allergies Home Medications ?Medication ?Instructions ?Recorded ?Confirmed ?Type paroxetine HCl 20 mg tablet 20 mg PO DAILY 07/30/24 10/05/24 History insulin lispro 100 unit/mL See Protocol SQ ACHS 30 days #1.2 08/01/24 10/05/24 Rx subcutaneous solution (Humalog mL U-100 Insulin) tramadol 50 mg tablet 50 mg PO Q8H PRN pain #15 tabs 08/12/24 10/05/24 Rx insulin glargine 100 unit/mL (3 75 unit SQ BID 09/02/24 10/05/24 History mL) subcutaneous pen (Lantus Solostar U-100 Insulin) tirzepatide 2.5 mg/0.5 mL 2.5 mg (0.5 mL) SQ WEEKLY 30 days 09/15/24 10/05/24 Rx subcutaneous pen injector #2.5 mL (Mounjaro) apixaban 5 mg tablet (Eliquis) 5 mg PO BID 30 days #60 tabs 09/22/24 10/05/24 Rx bumetanide 2 mg tablet 3 mg (1.5 x 2 mg) PO TID 30 days 09/22/24 10/05/24 Rx #90 tabs metolazone 2.5 mg tablet 5 mg (2 x 2.5 mg) PO DAILY 30 days 09/22/24 10/05/24 Rx #60 tabs metoprolol succinate 25 mg 25 mg PO DAILY 30 days #30 tabs 09/22/24 10/05/24 Rx tablet,extended release 24 hr nystatin 100,000 unit/gram topical 1 applic topical QID #60 grams 09/22/24 10/05/24 Rx powder pregabalin 100 mg capsule 100 mg PO TID 30 days #90 caps 09/22/24 10/05/24 Rx New Prescriptions to Start Prescriptions: Allergies Allergy/AdvReac Type Severity Reaction Status Date / Time hydromorphone (From Dilaudid) AdvReac Vomiting Verified 09/02/24 10:49 morphine AdvReac Vomiting Verified 09/02/24 10:49 Exam Data for Last 24 hours Vital signs and Labs for Last 24 Hours: Temp Pulse Resp BP Pulse Ox O2 Del Method 98.0 F 117 H 22 136/82 96 Room Air 10/05/24 08:51 10/05/24 12:31 10/05/24 12:31 10/05/24 12:31 10/05/24 12:31 10/05/24 09:01 Laboratory Results - last 24 hr 10/05/24 08:55: WBC 18.4 H, RBC 4.83, Hgb 10.3 L, Hct 34.3 L, MCV 71.0 L, MCH 21.3 L, MCHC 30.0 L, RDW 18.6 H, Plt Count 592 H, MPV 9.3, Neut % (Auto) 88.7 H, Lymph % (Auto) 6.8 L, Jackson % (Auto) 3.7, Eos % (Auto) 0.0 L, Baso % (Auto) 0.1, Neut # (Auto) 16.4 H, Lymph # (Auto) 1.3, Jackson # (Auto) 0.7, Eos # (Auto) 0.0, Baso # (Auto) 0.0, Sodium 126 L, Potassium 2.6 L*, Chloride 74 L, Carbon Dioxide 35 H, Anion Gap 19.6 H, BUN 45 H, Creatinine 1.20, Estimated Creat Clear 75, Estimated GFR 61, Est GFR ( Amer) 74, Glucose 584 H*, Calcium 9.0, Total Bilirubin 1.2, AST 32, ALT 29, Alkaline Phosphatase 191 H, Troponin I 0.04 H, NT-Pro-B Natriuret Pep 4220 H, Total Protein 7.3, Albumin 3.5, Globulin 3.8 H, Albumin/Globulin Ratio 0.9 L 10/05/24 09:37: VBG pH 7.59 H, VBG pCO2 34.3 L, VBG pO2 41.8 H, VBG HCO3 32.0 H, VBG Total CO2 33.1 H, VBG O2 Saturation 82.1 H, VBG Base Excess 10.3 H, VBG Lactic Acid 4.7 H 10/05/24 10:38: Urine Color Yellow, Urine Appearance Clear, Urine pH 6.0, Ur Specific [place] <= 1.005, Urine Protein Trace, Urine Glucose (UA) 3+, Urine Ketones 1+, Urine Blood Trace-l, Urine Nitrate Negative, Urine Bilirubin Negative, Urine Urobilinogen 0.2, Ur Leukocyte Esterase Negative, Urine RBC Occasional, Urine WBC 5-10, Ur Squamous Epith Cells Occasional, Urine Bacteria Trace, Urine Yeast Occasional I & O for Last 24 hours: Intake & Output 10/02/24 10/03/24 10/04/24 10/05/24 23:59 23:59 23:59 23:59 Intake Total 1465 / 1465 Output Total 950 / 950 Balance 515 / 515 Weight 178.262 kg Constitutional Constitutional: mild distress, morbidly obese, chronically ill appearing, disheveled and cooperative *Routine HEENT Exam Head: Present normocephalic Eye: Present EOMI and PERRL ENT: Present mucous membranes moist Comments: poor dentition *Routine Neck Exam Neck: Present supple; Absent lymphadenopathy *Routine Respiratory Exam Respiratory: Present prolonged expiratory phase, rhonchi and distant breath sounds; Absent wheezes or crackles *Routine Cardiovascular Exam Cardiovascular: Present RRR *Routine Abdominal Exam Abdominal: Present soft, normoactive bowel sounds and obese; Absent tenderness *Routine Rectal Exam Rectal:: deferred Comments:: does have shearing of skin and breakdown on posterior medial thighs near buttocks where skin stays moist. Chronic. Present on admission *Routine Genitalia Exam Genitalia:: deferred Comment:: Skin breakdown in right inguinal fold *Routine Extremities Exam Extremities: Present edema (2+ to knees, improved from last admission; no weeping on dressings) and tenderness (Bilateral lower extremities. No significant warmth but legs are red from stasis); Absent cyanosis or clubbing *Routine Skin Exam Skin: Present erythema, warm, lesions, wounds and rash; Absent cyanosis or mottling Comments: Stasis changes in bilateral lower extremities. Ulcerations posterior lower extremities bilaterally, decreased weeping from previous admissions. Skin breakdown upper posterior medial thighs bilaterally along with right inguinal crease. *Routine Neurological Exam Neurological: Present alert, oriented X3 and moving all extremities; Absent altered mental status Routine Psychiatric Exam Psychiatric: Present normal affect Assessment and Plan *Assessment and plan (1) Alkalosis, metabolic: Status: Acute Category: Medical Code(s): E87.3 - Alkalosis (2) DKA (diabetic ketoacidosis): Status: Acute Category: Medical Code(s): E11.10 - Type 2 diabetes mellitus with ketoacidosis without coma (3) Acute on chronic heart failure with preserved ejection fraction (HFpEF): Status: Acute Category: Medical Code(s): I50.33 - Acute on chronic diastolic (congestive) heart failure (4) Venous stasis ulcer of both lower extremities without varicose veins: Status: Acute Category: Medical Code(s): I87.2 - Venous insufficiency (chronic) (peripheral); L97.919 - Non-pressure chronic ulcer of unspecified part of right lower leg with unspecified severity; L97.929 - Non-pressure chronic ulcer of unspecified part of left lower leg with unspecified severity (5) Peripheral vascular disease: Status: Acute Category: Medical Code(s): I73.9 - Peripheral vascular disease, unspecified (6) Cellulitis: Status: Acute Qualifiers: Laterality: unspecified laterality Site of cellulitis: extremity Site of cellulitis of extremity: lower extremity Qualified Code(s): L03.119 - Cellulitis of unspecified part of limb Category: Medical Code(s): L03.90 - Cellulitis, unspecified (7) Chronic wound: Status: Acute Category: Medical Code(s): T14.8XXA - Other injury of unspecified body region, initial encounter (8) Bilateral edema of lower extremity: Status: Acute Category: Medical Code(s): R60.0 - Localized edema (9) Atrial fibrillation with RVR: Status: Resolved Category: Medical Code(s): I48.91 - Unspecified atrial fibrillation (10) Diabetic neuropathy: Status: Acute Qualifiers: Diabetes mellitus complication detail: diabetic polyneuropathy Diabetes mellitus type: type 2 Qualified Code(s): E11.42 - Type 2 diabetes mellitus with diabetic polyneuropathy Category: Medical Code(s): E11.40 - Type 2 diabetes mellitus with diabetic neuropathy, unspecified (11) Volume overload: Status: Acute Qualifiers: Hypervolemia type: unspecified Qualified Code(s): E87.70 - Fluid overload, unspecified Category: Medical Code(s): E87.70 - Fluid overload, unspecified (12) Microcytic anemia: Status: Acute Category: Medical Code(s): D50.9 - Iron deficiency anemia, unspecified (13) Adult failure to thrive: Status: Acute Category: Medical Code(s): R62.7 - Adult failure to thrive (14) LORI (obstructive sleep apnea): Status: Acute Category: Medical Code(s): G47.33 - Obstructive sleep apnea (adult) (pediatric) (15) Diabetes mellitus: Status: Acute Qualifiers: Diabetes mellitus complication status: with hyperglycemia Diabetes mellitus ocean transportation intermediary insulin use: without ocean transportation intermediary use Diabetes mellitus type: type 2 Qualified Code(s): E11.65 - Type 2 diabetes mellitus with hyperglycemia Category: Medical Code(s): E11.9 - Type 2 diabetes mellitus without complications (16) Sacral wound: Status: Acute Qualifiers: Encounter type: initial encounter Qualified Code(s): S31.000A - Unspecified open wound of lower back and pelvis without penetration into retroperitoneum, initial encounter Category: Medical Code(s): S31.000A - Unspecified open wound of lower back and pelvis without penetration into retroperitoneum, initial encounter (17) Morbid obesity with BMI of 45.0-49.9, adult: Status: Acute Category: Medical Code(s): E66.01 - Morbid (severe) obesity due to excess calories; Z68.42 - Body mass index [BMI] 45.0-49.9, adult Plan Bebeto Christiansen is a 64-year-old male with morbid obesity, acute on chronic HFpEF, volume overload, lower extremity erythema, stasis ulcerations. Presented with worsening fatigue and shortness of breath. Found to have metabolic alkalosis, hyponatremia, severe hypokalemia. Discussed case with ER physician, requests admission for treatment of metabolic disturbances. Discussed patient's complexity and need for multidisciplinary approach. Attempts are made to transfer patient, but unable to transfer due to hospitals around us on divert. I decided to admit for further care. Patient's condition serious, prognosis guarded. Problems addressed as follows: #Metabolic alkalosis: #Hypokalemia #Hyponatremia #Hypochloremia - Unclear etiology at this time. Will obtain urine sodium and urine chloride. Given hypokalemia, differential includes diuretic use, diarrhea, contraction alkalosis. High suspicion this is related to his diuretics. Patient does not appears volume overloaded at previous visits - De-escalate loop diuretic, will decrease to Bumex 2 mg IV twice daily - Initiate acetazolamide 250 mg p.o. twice daily - Aggressive correction of potassium. Initiated electrolyte protocol. Serial potassium monitoring every 8 hours with repeat level ordered for this evening and in the morning. - pH 7.59 on labs at presentation. pCO2 34. Suspect respiratory component as well is pCO2 lower than expected. - Will consider repeat VBG in the morning pending electrolyte response to replacement - Sodium 126 on presentation, chloride 75, bicarb 35. Repeat BMP ordered for this evening, repeat CBC, CMP, magnesium ordered for the morning - If sodium drops, will consider hypertonic saline overnight at low rate of 25 cc an hour. #Acute on Chronic HFpEF #Atrial fibrillation #Hypertension -Does not appear volume overloaded this visit COVID-19 normal. BNP above his normal however at 4200. - Continue Bumex, transition to 2 mg p.o. twice daily. - Acetazolamide as above - Potassium 2.6, BUN 45, creatinine 1.2. - Fluid restrict to 2 L daily #Lower extremity swelling, lymphedema #Chronic ulceration of lower legs; skin breakdown on buttocks #Lower extremity pain ? Patient afebrile, white count elevated however at 18.4. Completed antibiotics for polymicrobial mixed resistance skin infection. Will reevaluate in the morning. Repeat CBC ordered for the morning. Received cefepime 2 g IV in the ER. Holding on further antibiotics at this time ? Continues to have lower extremity pain. Caution with leg wraps. Tolerating current pain regimen with fair control -Continue Lyrica 3 times a day and tramadol every 6 hours as needed - Caution with opiates due to concern for possible withdrawal symptoms in the past Diabetes: - A1c worse last visit at 10.5. Reports compliance. Recent increase in glargine to 75 units twice daily with mealtime insulin of 15 units 2-3 times a day with meals - Resume insulin glargine 60 units twice daily. Continue high intensity sliding scale with additional 15 units with meals. - Diabetic diet of 1500 jone - Holding Jardiance due to risk for Marilin's gangrene given groin wounds and retracted penis Microcytic anemia: Hemoglobin 10.3, received iron infusions last visit. Holding on transfusion or iron at this time. Showing improvement LORI: Consider oxygen at night versus CPAP after discussion with patient about his home regimen. On room air at this time; goal sats greater 90% Morbid obesity complicates all aspects of his care. Does appear to be losing some weight however after starting tirzepatide. Plan to continue after discharge. BMI is less than 50 this admission Wound care consulted to assist with legs and stasis ulcers, refer to outpt wound care after DC Full code eliquis 5mg BID Diabetic diet
--- NOTE | 2024-10-05 13:17 | PC.NURSE ---
Gave report to Sherrill RN is SCU
--- NOTE | 2024-10-05 13:30 | PC.NURSE ---
recheck FS 580. Dr Ardon notified. He ordered a BMP to recheck potassium prior to administering insulin
[2024-10-05 13:31] LABS: Troponin I 0.04 ng/ml (0.00-0.034)
--- NOTE | 2024-10-05 13:33 | HMH.PHAINT1 ---
Pharmacy Intervention Comments: MEDICATION RECONCILIATION COMPLETED ON PATIENT USING EXTERNAL FILL HISTORY FROM PHARMACY AND DISCHARGE SUMMARY FROM PREVIOUS ADMISSION. -LISA CALDERON, JEANCARLOSD
[2024-10-05 13:52] LABS: Reflex Lactic Add Lactic Reflex
[2024-10-05 14:00] LABS: Chloride 76 mmol/L (98-107); Potassium 3.2 mmoL/L (3.5-5.1); Sodium 122 mmol/L (136-145)
[2024-10-05 14:03] LABS: Anion Gap 15.2 mEq/L (5-15); Blood Urea Nitrogen 45 mg/dl (9-20); Calcium 8.6 mg/dl (8.4-10.2); Carbon Dioxide 34 mmol/L (22.0-30.0); Creatinine Clearance Estimated 90 mL/min (50-200); Estimated Glomerular Filt Rate 75 ml/min (>60); GFR (African American) 91 ML/MIN (>60)
--- NOTE | 2024-10-05 14:20 | PC.NURSE ---
Report received from [facility]. Patient arrived to ICU room 266. Continuation of care plan.
[2024-10-05 14:25] LABS: Glucose 624 mg/dl (74-100)
--- NOTE | 2024-10-05 14:52 | PC.WOUNDNOTE ---
right buttock and crease between right leg and scrotum
--- NOTE | 2024-10-05 14:54 | PC.WOUNDNOTE ---
right groin and left buttock
--- NOTE | 2024-10-05 14:55 | PC.WOUNDNOTE ---
right groin/ upper thigh and pannus
--- NOTE | 2024-10-05 14:57 | PC.WOUNDNOTE ---
bottom with skin tears/ulcers
[2024-10-05] MEDS: acetaZOLAMIDE 250 MG TABLET PO ×2 (15:41→20:58)
[2024-10-05] MEDS: humaLOG 100 UNITS/ML 10ML VIAL (SSI) SUBCUT ×3 (15:43→20:58)
--- NOTE | 2024-10-05 15:43 | PC.NURSE ---
notified of blood sugar of 624. Per administer 40 units of Humalog at this time. Continuation of care plan.
[2024-10-05] MEDS: BUMETANIDE 1 MG TABLET 3 MG PO (15:45)
[2024-10-05 15:50] LABS: Lactic Acid Follow Up (RFLX 1) 2.8 mmol/L (0.7-2.1)
[2024-10-05 15:54] LABS: Troponin I 0.04 ng/ml (0.00-0.034)
[2024-10-05 16:08] LABS: Anion Gap 12.1 mEq/L (5-15); Blood Urea Nitrogen 45 mg/dl (9-20); Calcium 9.4 mg/dl (8.4-10.2); Carbon Dioxide 36 mmol/L (22.0-30.0); Creatinine Clearance Estimated 82 mL/min (50-200); Estimated Glomerular Filt Rate 68 ml/min (>60); GFR (African American) 82 ML/MIN (>60); Potassium 3.1 mmoL/L (3.5-5.1); Sodium 120 mmol/L (136-145)
--- NOTE | 2024-10-05 16:10 | PC.NURSE ---
Patient complains of Potassium run burning at this time. Primary RN decreased rated to 25ml/hr. notified. No new orders received. Continuation of care plan.
[2024-10-05 16:16] LABS: Chloride 75 mmol/L (98-107); Glucose 612 mg/dl (74-100)
[2024-10-05 17:21] LABS: Reflex Lactic (2 hrs) Add Lactic Reflex
--- NOTE | 2024-10-05 17:30 | PC.NURSE ---
notified of patients blood sugar of 559 at 1640. states administer 30 units sliding scale at this time. Continuation of care plan.
[2024-10-05] MEDS: SODIUM CHLORIDE 3 % 500 ML 25 ML IV (17:50)
[2024-10-05 18:34] LABS: Lactic Acid Follow up (RFLX 2) 4.4 mmol/L (0.7-2.1)
[2024-10-05 20:16] LABS: POC Glucose,Bedside 305 (70-110)
[2024-10-05] MEDS: PREGABALIN 100MG CAPSULE 100 MG PO (20:58)
[2024-10-05] MEDS: APIXABAN 5MG TABLET 5 MG PO (20:58)
[2024-10-05] MEDS: PANTOPRAZOLE 40MG TABLET 40 MG PO (20:58)
[2024-10-05] MEDS: INSULIN GLARGINE 100 UNITS/ML 3ML FLEXPEN 60 UNIT SUBCUT (21:00)
--- NOTE | 2024-10-05 21:17 | PC.NURSE ---
Patient has been making unruly requests since my arrival to shift and has been on the call light after spending 20 mins at minimum in the room the first 2 call light responses and requests. patient continues to hit the call light, yell in the room and be rude to the staff. I have informed him multiple times he will not be speaking to my coworkers or myself disrespectfully and that we are not going to be repositioning him in the bed every 10 mins because he is stating he is uncomfortable but refusing all interventions to aid his wound healing and overall care (being put on the bakari bed for example). Nurse and other staff have been in room many times and have provided education and compassionate care to the patient, call light in reach, side rails are up and he states he has no complaints at this time.
[2024-10-05] MEDS: TRAMADOL 50MG TABLET 50 MG PO (23:03)
[2024-10-05 23:50] LABS: Blood Urea Nitrogen 41 mg/dl (9-20); Calcium 9.6 mg/dl (8.4-10.2); Chloride 78 mmol/L (98-107); Creatinine Clearance Estimated 65 mL/min (50-200); Estimated Glomerular Filt Rate 51 ml/min (>60); GFR (African American) 62 ML/MIN (>60); Glucose 108 mg/dl (74-100); Sodium 129 mmol/L (136-145)
[2024-10-06] VITALS (32 sets, daily range): BP systolic 111–144; BP diastolic 40–75; PULSE 62–125; RESP 11–22; TEMP 36.4–37.1; O2SAT 89–100; BMI 47.4
[2024-10-06 00:02] LABS: Anion Gap 13.6 mEq/L (5-15)
[2024-10-06 00:05] LABS: Potassium 2.6 mmoL/L (3.5-5.1)
--- NOTE | 2024-10-06 00:06 | PC.NURSE ---
Lab called with critical lab value for potassium. 2.6. Called hospitalist to inform her.
[2024-10-06 00:12] LABS: Carbon Dioxide > 40 mmol/L (22.0-30.0)
[2024-10-06 00:20] LABS: POC Glucose,Bedside 100 (70-110)
[2024-10-06] MEDS: POTASSIUM CHLORIDE 20MEQ TAB 40 MEQ PO ×5 (00:23→23:11)
[2024-10-06 04:13] LABS: POC Glucose,Bedside 120 (70-110)
--- NOTE | 2024-10-06 05:46 | PC.NURSE ---
patient blood glucose 128 on check just now, not in range for me to give sliding scale for 515 ordered and patient is not eating breakfast yet so holding off on giving 0600 dose of insulin as well due to blood sugar. Will pass off to dayshift.
[2024-10-06 05:54] LABS: Basophils # 0.1 K/mm3 (0-0.2); Basophils % 0.3 % (0.1-2.0); Eosinophils # 0.1 Kmm3 (0.0-0.4); Eosinophils % 0.6 % (0.1-12.0); Hematocrit 32.5 % (42.0-52.0); Hemoglobin 9.4 g/dL (14.1-18.0); Immature Granulocytes # 0.12 10^3uL; Immature Granulocytes % 0.7 %; Lymphocytes # 2.1 K/mm3 (0.7-4.5); Lymphocytes % 11.7 % (10-50); Mean Corpuscular HGB Conc 28.9 g/dL (31.8-35.4); Mean Corpuscular Hemoglobin 20.4 pg (27.0-31.2); Mean Corpuscular Volume 70.5 fl (80-94); Monocytes % 5.4 % (1.7-9.3); Neutrophils # 14.4 K/mm3 (1.8-7.8); Neutrophils % 81.3 % (37.0-80.0); Nucleated Red Blood Cells # 0 10^3/uL; Nucleated Red Blood Cells % 0 %; Platelet Count 469 K/mm3 (142-424); Red Blood Count 4.61 M/mm3 (4.60-6.20); Red Cell Distribution Width 18.7 % (11.5-17.5); Red Cell Distribution Width-SD 45.8 fL; White Blood Count 17.7 K/mm3 (4.8-10.8)
[2024-10-06 06:07] LABS: Albumin Level 3.5 g/dl (3.5-5.0); Chloride 81 mmol/L (98-107); Sodium 128 mmol/L (136-145)
[2024-10-06 06:09] LABS: Potassium 2.7 mmoL/L (3.5-5.1)
[2024-10-06 06:09] LABS: POC Glucose,Bedside 128 (70-110)
[2024-10-06 06:10] LABS: Alanine Aminotransferase 16 U/L (12-78); Alkaline Phosphatase 155 U/L (38-126); Anion Gap 11.7 mEq/L (5-15); Aspartate Amino Transferase 33 U/L (17-59); Bilirubin,Total 0.7 mg/dl (0.2-1.3); Blood Urea Nitrogen 41 mg/dl (9-20); Calcium 8.8 mg/dl (8.4-10.2); Carbon Dioxide 38 mmol/L (22.0-30.0); Creatinine Clearance Estimated 70 mL/min (50-200); Estimated Glomerular Filt Rate 56 ml/min (>60); GFR (African American) 67 ML/MIN (>60); Globulin 3.5 g/dL (1.3-3.2); Glucose 136 mg/dl (74-100); Magnesium 2.3 mg/dl (1.6-2.3)
--- NOTE | 2024-10-06 08:12 | PC.NURSE ---
pt assisted to bedside commode, chux changed, pt tolerated well. call light within reach
[2024-10-06] MEDS: BUMETANIDE 1 MG TABLET 2 MG PO (08:25)
[2024-10-06] MEDS: acetaZOLAMIDE 250 MG TABLET PO ×2 (08:25→20:34)
[2024-10-06] MEDS: APIXABAN 5MG TABLET 5 MG PO ×2 (08:25→20:34)
[2024-10-06] MEDS: PARoxetine 20MG TABLET 20 MG PO (08:26)
[2024-10-06] MEDS: METOPROLOL SUCCINATE XL 25MG TABLET 25 MG PO (08:28)
[2024-10-06] MEDS: LEVOFLOXACIN/D5W 750 MG/150 ML 750 MG/150 ML PIGGYBACK 100 MG IV (08:28)
[2024-10-06] MEDS: PREGABALIN 100MG CAPSULE 100 MG PO ×3 (08:28→20:34)
[2024-10-06] MEDS: TRAMADOL 50MG TABLET 50 MG PO ×3 (08:44→20:34)
[2024-10-06] MEDS: INSULIN GLARGINE 100 UNITS/ML 3ML FLEXPEN 60 UNIT SUBCUT ×2 (08:46→20:34)
[2024-10-06 08:47] LABS: POC Glucose,Bedside 221 (70-110)
[2024-10-06] MEDS: humaLOG 100 UNITS/ML 10ML VIAL (SSI) SUBCUT ×4 (08:48→20:35)
--- NOTE | 2024-10-06 08:59 | PC.NURSE ---
dr limon at bedside
--- NOTE | 2024-10-06 09:13 | PC.NURSE ---
pt repositioned in bed, call light within reach. no further needs at this time
[2024-10-06] MEDS: IRON SUCROSE COMPLEX 200 MG in 0.9 % SODIUM CHLORIDE 100 ML 220 MG IV (09:28)
--- NOTE | 2024-10-06 10:56 | HMH.OTEV ---
OT Inpatient Evaluation Rehab OT IP Evaluation Start: 10/06/24 08:16 Freq: ONCE Status: Active Protocol: Document 10/06/24 10:52 NEVA (Rec: 10/06/24 10:56 NEVA [id number]) Rehab OT IP Assessment Subjective History Per H&P: Mr. Christiansen is a 64-year-old male with significant past medical history and recurrent readmissions to hospital. He has a history of morbid obesity for entheses though his weight appears down somewhat this visit compared to last visit), HFpEF, uncontrolled diabetes, LORI, chronic lower extremity lymphedema, multiple pressure wounds, partial right foot amputation, urinary incontinence, inability to care for his self, A-fib, chronic anticoagulation and CKD with several episodes of LUPE in the past 6 months. He presented to the ER today due to worsening shortness of breath and feeling dehydrated over the past few days per his report. States has been taking his medication. Denies fever or chills. No vomiting or diarrhea. No chest pain. Denies any cough. Sleeps sitting up at home, this is chronic. Legs in clean wraps today. Not having as much weeping in his legs. Was brought to the ER via EMS. On arrival, is speaking in full sentences. Workup in the ER showed tachycardia with heart rate in the 120s to 130s. Significant disturbances on labs with white count of 18 .4, sodium of 126, chloride of 74, pH of 7.59 on VBG with pCO2 of 34 and bicarb of 35. Kidney function with BUN 45 creatinine 1.2 which is improved from last admission 2 weeks ago. BNP elevated higher than it has been in the past at 4200. Potassium low at 2.6. Glucose severely elevated to 584. Given his significant disturbances, worsening diabetes control, initially recommended to the ER that patient be transferred for endocrine and multidisciplinary approach given complexity of patient and episodes of worsening kidney function when he has been admitted to our institution. Attempts were made to transfer patient. He was placed on a wait list at . At this time, unable to transfer however. Medicine admitted for further management. Subjective Get me that. Pt supine in bed when therapy arrived. Pt orient x3. Pt 's sister entered room for session. Pt reports he was living with his sister. pt's sister reports pt primarily remains in the bed/chair and transfers to toilet when needed with some assistance and RW. Pt reports with plan to return home with his sister. Pt reported they need to use bedside commode. Pt went from supine to EOB with SBA. Pt then completed a stand pivot transfer with walker from EOB to bedside commode. Pt reported they had to have a bowel movement. Pt left on bedside commode with call light in reach and all other needs within reach. Nursing notified of pt. Objective Patient Orientation Person,Place,Birthday Right Upper WFL Extremity Gross ROM Left Upper Extremity WFL Gross ROM Bed Mobility bed mobility-scooting,bed mobility - supine/sit Assist Level Supervision/Stand by Transfer Training Sit/Stand/Pivot Transfer Assist Level Supervision/Stand by Chair Transfer Sit to/from Ambulatory Technique Chair Transfer Standard Walker Assistive Devices Overall Commode/ Standby Assistance Toilet Transfer Ability Commode/Toilet Sit to/from Ambulatory Transfer Technique Decrease in Yes Endurance Rehab OT IP prob,goals,plan Problems Date of Evaluation: 10/06/24 Rehab Potential Rehab Potential Innapropriate for Skilled Therapy Discharge Plan OT Discharge Plan Pt most appropriate to d/c home when deemed medically necessary d/t current level of functional mobility, home set-up, and family support. Pt not appropriate for skilled acute care OT at this time d/t pt?s functional mobility and transfers being at baseline. Eval Complexity Eval Charge Codes 87114 - Moderate Complexity PHYSICIAN CERTIFICATION: I certify the specified therapy services for Bebeto Christiansen are required, authorized, and reviewed every 30 days.
--- NOTE | 2024-10-06 11:03 | HMH.PTEV ---
Physical Therapy Evaluation Rehab PT IP Evaluation Start: 10/05/24 15:02 Freq: ONCE Status: Active Protocol: Document 10/06/24 10:35 GEORGEDAREN (Rec: 10/06/24 10:42 GEORGEDAREN [id number]) Subjective/History History History Per H&P: Mr. Christiasnen is a 64-year-old male with significant past medical history and recurrent readmissions to hospital. He has a history of morbid obesity for entheses though his weight appears down somewhat this visit compared to last visit), HFpEF, uncontrolled diabetes, LORI, chronic lower extremity lymphedema, multiple pressure wounds, partial right foot amputation, urinary incontinence, inability to care for his self, A-fib, chronic anticoagulation and CKD with several episodes of LUPE in the past 6 months. He presented to the ER today due to worsening shortness of breath and feeling dehydrated over the past few days per his report. States has been taking his medication. Denies fever or chills. No vomiting or diarrhea. No chest pain. Denies any cough. Sleeps sitting up at home, this is chronic. Legs in clean wraps today. Not having as much weeping in his legs. Was brought to the ER via EMS. On arrival, is speaking in full sentences. Workup in the ER showed tachycardia with heart rate in the 120s to 130s. Significant disturbances on labs with white count of 18 .4, sodium of 126, chloride of 74, pH of 7.59 on VBG with pCO2 of 34 and bicarb of 35. Kidney function with BUN 45 creatinine 1.2 which is improved from last admission 2 weeks ago. BNP elevated higher than it has been in the past at 4200. Potassium low at 2.6. Glucose severely elevated to 584. Given his significant disturbances, worsening diabetes control, initially recommended to the ER that patient be transferred for endocrine and multidisciplinary approach given complexity of patient and episodes of worsening kidney function when he has been admitted to our institution. Attempts were made to transfer patient. He was placed on a wait list at . At this time, unable to transfer however. Medicine admitted for further management. Subjective Subjective Pt reports he was living with his sister. Pt's sister present during evaluation. Per pt's sister, pt primarily remains in the bed and transfers to toilet when needed with some assistance and RW. Pt with plan to return home with his sister. [facility] How much help from another person do you currently need... Turning from your None back to your side while in a flat bed without using bedrails? Moving from lying on None back to sitting on the side of a flat bed without using bedrails? Moving to and from a A little bed to a chair ( including a wheelchair)? Standing up from a A little chair using your arms? (e.g., wheelchair, bedside chair) Walking in hospital A lot room? Climbing 3-5 steps A lot with a railing? Mobility Score 18 Mobility Level [facility] Mobility 6 Walk 10 steps or more Mobility Calculator Rehab PT IP Eval Objective Appearance Patient Behavior Appropriate,Cooperative Patient Orientation Person,Situation Difficulty following none instructions Speech Pattern Clear Ambulation Patient Able to Yes Ambulate Ambulation Observation IP General Gait Wide Based Gait Pattern Observation Ambulation Distance 3 (feet) Ambulation Assistive Rolling Walker Device Ambulation Ability Supervision/Stand by Balance Ability to Arise Able, uses arms to help Sitting Balance Steady, safe Standing Balance Unsteady Dynamic Sitting Good Balance Ability Transfers Chair Transfer Supervision/Stand by Ability Sit to Stand Bed Supervision/Stand by Transfer Ability Sit to Stand Chair Supervision/Stand by Transfer Ability Rehab PT IP prob,goals,plan Problems Date of Evaluation: 10/06/24 Rehab Potential Rehab Potential Innapropriate for Skilled Therapy Discharge Plan PT Discharge Plan Pt most appropriate to d/c home when deemed medically necessary d/t current level of mobility, home set-up, and family support. Pt demo'd ability to perform supine>sit EOB, STS, and transfer to [facility] with supervision. Pt not appropriate for skilled acute care PT at this time d/t pt?s mobility being at baseline. Recommending PT services upon d/c form [facility] to address generalized weakness. Eval Complexity Eval Charge Codes 85476 - Moderate Complexity PHYSICIAN CERTIFICATION: I certify the specified therapy services for Bebeto Christiansen are required, authorized, and reviewed every 30 days.
[2024-10-06] MEDS: humaLOG 100 UNITS/ML 10ML VIAL (SSI) 5 UNIT SUBCUT ×2 (11:50→18:07)
[2024-10-06 11:55] LABS: POC Glucose,Bedside 262 (70-110)
[2024-10-06 12:05] LABS: POC Glucose,Bedside 268 (70-110)
[2024-10-06 13:17] LABS: POC Glucose,Bedside 233 (70-110)
--- NOTE | 2024-10-06 13:39 | PC.NURSE ---
report called to jas perez
--- NOTE | 2024-10-06 13:45 | PC.NURSE ---
Patient transported to Medical Surgical room 210 at this time.
--- NOTE | 2024-10-06 14:14 | PC.NURSE ---
Pt arrived to floor via bed @8006
[2024-10-06 17:29] LABS: VBG Base Excess 10.7 mmol/L (-2.4-2.3); VBG Oxygen Saturation 81.5 % (50-70); VBG PCO2 53.7 mmol/L (35-51); VBG PH 7.43 mmol/L (7.31-7.41); VBG PO2 47.6 mmol/L (28-40); VBG Total CO2 36.7 mmol/L (23-27)
[2024-10-06 17:41] LABS: POC Glucose,Bedside 207 (70-110)
[2024-10-06 18:04] LABS: Anion Gap 9.9 mEq/L (5-15); Blood Urea Nitrogen 41 mg/dl (9-20); Calcium 9.4 mg/dl (8.4-10.2); Carbon Dioxide 38 mmol/L (22.0-30.0); Chloride 79 mmol/L (98-107); Creatinine Clearance Estimated 53 mL/min (50-200); Estimated Glomerular Filt Rate 41 ml/min (>60); GFR (African American) 50 ML/MIN (>60); Glucose 201 mg/dl (74-100); Magnesium 2.1 mg/dl (1.6-2.3); Sodium 124 mmol/L (136-145)
[2024-10-06 18:10] LABS: Potassium 2.9 mmoL/L (3.5-5.1)
[2024-10-06] MEDS: ONDANSETRON 4MG/2ML VIAL 4 MG IV (19:47)
--- NOTE | 2024-10-06 19:48 | EXP.ACUTE.PN ---
Subjective *Date: 10/06/24 *Time: 22:46 Interval history: Stable on room air. Remains afebrile. No nausea or vomiting. Having good urine output, negative greater than 1L since admission. Bandages removed on morning rounds, edema in proving in legs. Still has significant ulcerations and skin breakdown. Bandages with green mucoid discharge, consistent/concerning for Pseudomonas. Complaining of pain in legs Medical Exam Vital signs and Labs for Last 24 Hours: Vital Signs Temp Pulse Pulse Resp BP BP Pulse Ox 10/06/24 19:00 10/06/24 18:41 10/06/24 18:11 10/06/24 17:41 10/06/24 17:11 10/06/24 17:00 10/06/24 16:00 98.7 F 110 H 20 111/40 L 94 L 10/06/24 16:00 97.5 F L 63 22 123/70 100 10/06/24 15:00 10/06/24 14:00 10/06/24 13:00 10/06/24 12:14 100 H 10/06/24 12:14 97.8 F 88 13 113/74 99 10/06/24 11:00 10/06/24 09:45 12 10/06/24 09:31 125 H 10/06/24 09:30 15 10/06/24 09:15 13 10/06/24 09:01 13 121/67 10/06/24 09:00 10/06/24 08:45 87 13 98 10/06/24 08:40 108 H 95 10/06/24 08:30 87 13 96 10/06/24 08:27 86 15 143/59 H 97 10/06/24 08:00 98.8 F 100 H 16 144/75 H 98 10/06/24 07:30 100 H 13 89 L 10/06/24 07:15 73 15 96 10/06/24 07:00 86 12 121/62 98 10/06/24 06:45 89 12 95 10/06/24 06:30 89 13 99 10/06/24 06:29 10/06/24 06:16 11 L 124/73 10/06/24 06:15 62 19 96 10/06/24 06:00 96 H 13 124/73 96 10/06/24 05:00 10/06/24 04:30 90 11 L 98 10/06/24 04:15 97 H 14 97 10/06/24 04:00 125/60 10/06/24 04:00 98.5 F 105 H 13 125/60 95 10/06/24 04:00 97 H 10/06/24 03:45 89 14 97 10/06/24 03:30 85 16 97 10/06/24 03:15 20 10/06/24 03:01 95 H 12 96 10/06/24 03:01 120/68 10/06/24 03:00 94 H 15 96 10/06/24 03:00 10/06/24 02:01 105 H 15 135/60 96 10/06/24 02:00 10/06/24 01:00 10/06/24 00:08 98.2 F 66 14 129/70 98 10/06/24 00:00 118 H 10/05/24 23:00 10/05/24 22:00 83 12 133/66 100 10/05/24 21:00 10/05/24 20:00 98 10/05/24 20:00 98.5 F 121 H 22 139/66 97 10/05/24 20:00 134 H O2 Del Method 10/06/24 19:00 Room Air 10/06/24 18:41 Room Air 10/06/24 18:11 Room Air 10/06/24 17:41 Room Air 10/06/24 17:11 Room Air 10/06/24 17:00 Room Air 10/06/24 16:00 Room Air 10/06/24 16:00 Room Air 10/06/24 15:00 Room Air 10/06/24 14:00 Room Air 10/06/24 13:00 Room Air 10/06/24 12:14 10/06/24 12:14 10/06/24 11:00 Room Air 10/06/24 09:45 10/06/24 09:31 10/06/24 09:30 10/06/24 09:15 10/06/24 09:01 10/06/24 09:00 Room Air 10/06/24 08:45 Room Air 10/06/24 08:40 Room Air 10/06/24 08:30 Room Air 10/06/24 08:27 Room Air 10/06/24 08:00 10/06/24 07:30 Room Air 10/06/24 07:15 Room Air 10/06/24 07:00 Room Air 10/06/24 06:45 10/06/24 06:30 10/06/24 06:29 Room Air 10/06/24 06:16 10/06/24 06:15 10/06/24 06:00 10/06/24 05:00 Room Air 10/06/24 04:30 10/06/24 04:15 10/06/24 04:00 10/06/24 04:00 Room Air 10/06/24 04:00 10/06/24 03:45 10/06/24 03:30 10/06/24 03:15 10/06/24 03:01 10/06/24 03:01 10/06/24 03:00 10/06/24 03:00 Room Air 10/06/24 02:01 10/06/24 02:00 Room Air 10/06/24 01:00 Room Air 10/06/24 00:08 10/06/24 00:00 10/05/24 23:00 Room Air 10/05/24 22:00 Room Air 10/05/24 21:00 Room Air 10/05/24 20:00 Room Air 10/05/24 20:00 Room Air 10/05/24 20:00 Intake and Output 10/06/24 10/06/24 10/06/24 07:59 15:59 23:59 Intake Total 210 / 992 662 / 992 120 / 992 Output Total 1300 / 1600 300 / 1600 Balance -1090 / -608 362 / -608 120 / -608 Intake: Intake, Oral Amount 210 / 850 520 / 850 120 / 850 Intake, Total IV Amount 142 / 142 Levofloxacin/D5w 750 mg/150 ml 142 / 142 750 mg In 150 ml @ 100 mls/hr IV Q24H [facility] Rx#:[id number] Output: Output, Urine Amount 1300 / 1600 300 / 1600 Other: Number of Unmeasured Voids 0 0 Weight 173.136 kg Patient Weight 10/06/24 23:59 Weight 173.136 kg Laboratory Results - last 24 hr 10/05/24 10:38: Urine Sodium 7.0 L 10/05/24 20:08: POC Glucose 305 H* 10/05/24 23:18: Sodium 129 L, Potassium 2.6 L*, Chloride 78 L, Carbon Dioxide > 40 H*, Anion Gap 13.6, BUN 41 H, Creatinine 1.40 H D, Estimated Creat Clear 65, Estimated GFR 51 L, Est GFR ( Amer) 62 D, Glucose 108 H D, Calcium 9.6 10/06/24 00:13: POC Glucose 100 10/06/24 04:03: POC Glucose 120 H 10/06/24 05:40: POC Glucose 128 H 10/06/24 05:41: WBC 17.7 H, RBC 4.61, Hgb 9.4 L, Hct 32.5 L, MCV 70.5 L, MCH 20.4 L, MCHC 28.9 L, RDW 18.7 H, Plt Count 469 H, MPV 9.0, Neut % (Auto) 81.3 H, Lymph % (Auto) 11.7, Grayson % (Auto) 5.4, Eos % (Auto) 0.6, Baso % (Auto) 0.3, Neut # (Auto) 14.4 H, Lymph # (Auto) 2.1, Grayson # (Auto) 1.0, Eos # (Auto) 0.1, Baso # (Auto) 0.1, Sodium 128 L, Potassium 2.7 L*, Chloride 81 L, Carbon Dioxide 38 H, Anion Gap 11.7, BUN 41 H, Creatinine 1.30 H, Estimated Creat Clear 70, Estimated GFR 56 L, Est GFR ( Amer) 67, Glucose 136 H D, Calcium 8.8, Magnesium 2.3, Total Bilirubin 0.7, AST 33, ALT 16 D, Alkaline Phosphatase 155 H, Total Protein 7.0, Albumin 3.5, Globulin 3.5 H, Albumin/Globulin Ratio 1.0 L 10/06/24 08:38: POC Glucose 221 H 10/06/24 11:47: POC Glucose 262 H 10/06/24 11:58: POC Glucose 268 H 10/06/24 13:09: POC Glucose 233 H 10/06/24 17:00: VBG pH 7.43 H, VBG pCO2 53.7 H, VBG pO2 47.6 H, VBG HCO3 35.0 H, VBG Total CO2 36.7 H, VBG O2 Saturation 81.5 H, VBG Base Excess 10.7 H, VBG Lactic Acid 3.0 H 10/06/24 17:15: Sodium 124 L, Potassium 2.9 L*, Chloride 79 L, Carbon Dioxide 38 H, Anion Gap 9.9, BUN 41 H, Creatinine 1.70 H D, Estimated Creat Clear 53, Estimated GFR 41 L, Est GFR ( Amer) 50 L D, Glucose 201 H D, POC Glucose 207 H, Calcium 9.4, Magnesium 2.1 I & O for Labs for Last 24 Hours: Intake & Output 10/03/24 10/04/24 10/05/24 10/06/24 23:59 23:59 23:59 23:59 Intake Total 2415 / 2625 992 / 992 Output Total 3535 / 4035 1600 / 1600 Balance -1120 / -1410 -608 / -608 Weight 178.262 kg 173.136 kg Microbiology Reports for the Last 24 Hours: Microbiology 10/05/24 10:39 Blood Blood Culture - Preliminary NO GROWTH AFTER 24 HOURS 10/05/24 10:30 Blood Blood Culture - Preliminary NO GROWTH AFTER 24 HOURS Constitutional: Present no acute distress, morbidly obese, chronically ill appearing and cooperative Head: Present atraumatic and normocephalic ENT: Present normal exam Comment:: Poor dentition Respiratory: Present distant breath sounds and normal respiratory effort; Absent accessory muscle use, respiratory distress, stridor, wheezes or crackles Comment:: Irregularly irregular GI: Present soft and normal bowel sounds; Absent distention or tenderness Comments:: Obese abdomen Rectal (male): Present normal inspection Comment:: Dressings removed today, 1+ edema to knees, chronic stasis dermatitis, wrinkling of toes. Ulcerations of bilateral shins, left leg worse than right. Erythema improved from last visit. Draining from ulcers but no significant weeping down legs. Ulcerations through epidermis Skin: Present erythema (Bilateral lower legs) and wounds (Stasis ulceration, worse on right posterior leg) Neuro: Present Grossly Intact, alert, awake, oriented x 3 and moves all extremities Assessment and Plan *Assessment and plan (1) Alkalosis, metabolic: Status: Acute Category: Medical Code(s): E87.3 - Alkalosis (2) DKA (diabetic ketoacidosis): Status: Acute Category: Medical Code(s): E11.10 - Type 2 diabetes mellitus with ketoacidosis without coma (3) Acute on chronic heart failure with preserved ejection fraction (HFpEF): Status: Acute Category: Medical Code(s): I50.33 - Acute on chronic diastolic (congestive) heart failure (4) Venous stasis ulcer of both lower extremities without varicose veins: Status: Acute Category: Medical Code(s): I87.2 - Venous insufficiency (chronic) (peripheral); L97.919 - Non-pressure chronic ulcer of unspecified part of right lower leg with unspecified severity; L97.929 - Non-pressure chronic ulcer of unspecified part of left lower leg with unspecified severity (5) Peripheral vascular disease: Status: Acute Category: Medical Code(s): I73.9 - Peripheral vascular disease, unspecified (6) Cellulitis: Status: Acute Qualifiers: Laterality: unspecified laterality Site of cellulitis: extremity Site of cellulitis of extremity: lower extremity Qualified Code(s): L03.119 - Cellulitis of unspecified part of limb Category: Medical Code(s): L03.90 - Cellulitis, unspecified (7) Chronic wound: Status: Acute Category: Medical Code(s): T14.8XXA - Other injury of unspecified body region, initial encounter (8) Bilateral edema of lower extremity: Status: Acute Category: Medical Code(s): R60.0 - Localized edema (9) Atrial fibrillation with RVR: Status: Resolved Category: Medical Code(s): I48.91 - Unspecified atrial fibrillation (10) Diabetic neuropathy: Status: Acute Qualifiers: Diabetes mellitus complication detail: diabetic polyneuropathy Diabetes mellitus type: type 2 Qualified Code(s): E11.42 - Type 2 diabetes mellitus with diabetic polyneuropathy Category: Medical Code(s): E11.40 - Type 2 diabetes mellitus with diabetic neuropathy, unspecified (11) Volume overload: Status: Acute Qualifiers: Hypervolemia type: unspecified Qualified Code(s): E87.70 - Fluid overload, unspecified Category: Medical Code(s): E87.70 - Fluid overload, unspecified (12) Microcytic anemia: Status: Acute Category: Medical Code(s): D50.9 - Iron deficiency anemia, unspecified (13) Adult failure to thrive: Status: Acute Category: Medical Code(s): R62.7 - Adult failure to thrive (14) LORI (obstructive sleep apnea): Status: Acute Category: Medical Code(s): G47.33 - Obstructive sleep apnea (adult) (pediatric) (15) Diabetes mellitus: Status: Acute Qualifiers: Diabetes mellitus complication status: with hyperglycemia Diabetes mellitus skilled nursing insulin use: without long term care social worker use Diabetes mellitus type: type 2 Qualified Code(s): E11.65 - Type 2 diabetes mellitus with hyperglycemia Category: Medical Code(s): E11.9 - Type 2 diabetes mellitus without complications (16) Sacral wound: Status: Acute Qualifiers: Encounter type: initial encounter Qualified Code(s): S31.000A - Unspecified open wound of lower back and pelvis without penetration into retroperitoneum, initial encounter Category: Medical Code(s): S31.000A - Unspecified open wound of lower back and pelvis without penetration into retroperitoneum, initial encounter (17) Morbid obesity with BMI of 45.0-49.9, adult: Status: Acute Category: Medical Code(s): E66.01 - Morbid (severe) obesity due to excess calories; Z68.42 - Body mass index [BMI] 45.0-49.9, adult Plan Bebeto Christiansen is a 64-year-old male with morbid obesity, acute on chronic HFpEF, volume overload, lower extremity erythema, stasis ulcerations. Presented with worsening fatigue and shortness of breath. Found to have metabolic alkalosis, hyponatremia, severe hypokalemia. Discussed case with ER physician, requests admission for treatment of metabolic disturbances. Discussed patient's complexity and need for multidisciplinary approach. Attempts are made to transfer patient, but unable to transfer due to hospitals around us on divert. I decided to admit for further care. Showing some improvement overnight. Sodium slightly improved, downgrade to MedSurg. Continues to require patient management. Problems addressed as follows: #Metabolic alkalosis: #Hypokalemia #Hyponatremia #Hypochloremia - Unclear etiology at this time. Urine sodium low at 7, consistent with overall volume sodium depletion. Improved to 128 this morning. Chloride improved to 81. Make adjustments to diuretic regimen. Repeat VBG to evaluate alkalosis this afternoon ordered. - Alkalosis most consistent with contraction alkalosis. High suspicion this is related to his diuretics. Patient does not appears volume overloaded at previous visits - De-escalate loop diuretic, Bumex 2 mg IV daily; continue acetazolamide 250 mg p.o. twice daily - Aggressive correction of potassium. Initiated electrolyte protocol - pH 7.59 on labs at presentation. pCO2 34. Suspect respiratory component as well is pCO2 lower than expected. Repeat VBG ordered for the evening - Sodium 126 on presentation, chloride 75, bicarb 35. Repeat BMP ordered for this evening - If sodium drops, will consider hypertonic saline overnight at low rate of 25 cc an hour. #Acute on Chronic HFpEF #Atrial fibrillation #Hypertension -Does not appear volume overloaded this visit. BNP above his normal however at 4200. - Continue Bumex, transition to 2 mg p.o. twice daily. - Acetazolamide as above - Potassium 2.7, BUN 41, creatinine 1.3. Magnesium 2.3. Repeat BMP ordered for this evening. Repeat CBC, CMP, magnesium ordered for the morning - Fluid restrict to 2 L daily #Lower extremity swelling, lymphedema #Chronic ulceration of lower legs; skin breakdown on buttocks #Lower extremity pain ? Patient afebrile, white count still elevated at 17. 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 Suspect polymicrobial colonization versus infection including Pseudomonas. ? Continues to have lower extremity pain. Caution with leg wraps. Tolerating current pain regimen with fair control - Continue Lyrica 3 times a day and tramadol every 6 hours as needed - Caution with opiates due to concern for possible withdrawal symptoms in the past Diabetes: - A1c worse last visit at 10.5. Reports compliance. Recent increase in glargine to 75 units twice daily with mealtime insulin of 15 units 2-3 times a day with meals - Continue insulin glargine 60 units twice daily. Continue high intensity sliding scale with decreased to 10 units additionally with meals. Morning glucose 136. - Diabetic diet of 1500 jone - Holding Jardiance due to risk for Marilin's gangrene given groin wounds and retracted penis Microcytic anemia: Hemoglobin 9.4 today. received iron infusions last visit. Will administer Venofer 200 mg IV once today. This is his third infusion in 1 month. Will need 2 more to complete full course. Hemoglobin slowly improving LORI: Consider oxygen at night versus CPAP after discussion with patient about his home regimen. On room air at this time; goal sats greater 90% Morbid obesity complicates all aspects of his care. Does appear to be losing some weight however after starting tirzepatide. Plan to continue after discharge. BMI is less than 50 this admission Wound care consulted to assist with legs and stasis ulcers, refer to outpt wound care after DC Full code eliquis 5mg BID Diabetic diet
--- NOTE | 2024-10-06 19:49 | PC.WOUNDNOTE ---
RIGHT LEG LEFT LEG
--- NOTE | 2024-10-06 19:52 | PC.NURSE ---
PATIENT'S BLE UNWRAPPED TO BE EXAMINED, CLEANED, AND RE-DRESSED. PATIENT'S RIGHT LEG FOUND TO NOT HAVE MUCH DRAINAGE NOTED. MULTIPLE AREAS WITH SLIGHT SEROSANG DRAINAGE PRESENT. THE LEFT LEG HAD COPIOUS AMOUNTS OF PURULENT DRAINAGE NOTED, RANGING IN COLOR FROM GREEN, YELLOW, BROWN. STRONG FOUL ODOR NOTED. SILVER GELLING FIBER DRESSINGS PLACED DIRECTLY ON SKIN TO BLE. THESE DRESSINGS COVERED WITH ABD PADS, FOLLOWED BY KERLEX AND COBAND. ORDERS PER MD ROBRETS. THESE DRESSINGS ARE NOW CDI. DRESSINGS SHOULD BE ABLE TO STAY FOR UP TO 7 DAYS, UNLESS BECOMING VISIBLY SOILED. PATIENT TOLERATED DRESSING CHANGES VERY WELL.
[2024-10-06 20:31] LABS: POC Glucose,Bedside 191 (70-110)
[2024-10-06] MEDS: PRO-STAT AWC 30ML LIQUID PACKET 30 ML PO (20:34)
[2024-10-06] MEDS: PANTOPRAZOLE 40MG TABLET 40 MG PO (20:35)
[2024-10-06 21:05] LABS: Reflex Lactic Add Lactic Reflex
[2024-10-06 21:33] LABS: Lactic Acid Follow Up (RFLX 1) 1.8 mmol/L (0.7-2.1)
[2024-10-07] VITALS: BP 107/57; PULSE 100; RESP 19; TEMP 36.4; O2SAT 99
--- NOTE | 2024-10-07 02:37 | PC.NURSE ---
At 01:49 AM pt pressed the call light to Tell the jd edwards developer to send someone in to check his vacume on his PW. Upon entering the room with ANDREIA Duenas, pt bed was noted to be approximately 3-4 foot from the wall. We unlocked bed and put it back against wall, checked PW tubing and vacume and it was all working well. We told him we could see urine going into the canister on the wall, and he demanded we stay in there until he was done urinating. Pt voiced he had no more needs and would be going back to sleep at this time.
[2024-10-07 02:49] LABS: POC Glucose,Bedside 125 (70-110)
--- NOTE | 2024-10-07 03:10 | PC.NURSE ---
Pt AOx4. Received prn tramadol for pain earlier in the shift. Glucose check around 0200 was 125. Dressings to bilateral legs c/d/i. Pt is currently resting in bed with eyes closed. Respirations even and unlabored. Bed is low, locked, and call light is in reach. Bed alarm is on and functioning.
[2024-10-07] MEDS: POTASSIUM CHLORIDE 20MEQ TAB 40 MEQ PO ×2 (03:31→12:26)
[2024-10-07 04:00] VITALS: BP 105/59; PULSE 79; RESP 17; TEMP 36.6; O2SAT 99; BMI 47.4
[2024-10-07] MEDS: TRAMADOL 50MG TABLET 50 MG PO ×2 (04:25→10:15)
[2024-10-07] MEDS: ONDANSETRON 4MG/2ML VIAL 4 MG IV ×2 (04:26→10:14)
[2024-10-07 05:23] LABS: POC Glucose,Bedside 113 (70-110)
[2024-10-07 08:00] VITALS: BP 106/53; PULSE 68; RESP 22; TEMP 36.7; O2SAT 97
[2024-10-07 08:24] LABS: POC Glucose,Bedside 559 (70-110)
[2024-10-07 08:55] LABS: Basophils % 0.3 % (0.1-2.0); Eosinophils # 0.2 Kmm3 (0.0-0.4); Eosinophils % 1.2 % (0.1-12.0); Hematocrit 31.7 % (42.0-52.0); Hemoglobin 9.1 g/dL (14.1-18.0); Immature Granulocytes % 0.7 %; Lymphocytes % 14.2 % (10-50); Mean Corpuscular HGB Conc 28.7 g/dL (31.8-35.4); Mean Corpuscular Hemoglobin 20.8 pg (27.0-31.2); Mean Corpuscular Volume 72.4 fl (80-94); Mean Platelet Volume 8.9 fl (7.4-10.4); Monocytes % 6.9 % (1.7-9.3); Neutrophils # 10.9 K/mm3 (1.8-7.8); Neutrophils % 76.7 % (37.0-80.0); Nucleated Red Blood Cells # 0 10^3/uL; Nucleated Red Blood Cells % 0 %; Platelet Count 465 K/mm3 (142-424); Red Blood Count 4.38 M/mm3 (4.60-6.20); Red Cell Distribution Width 18.4 % (11.5-17.5); Red Cell Distribution Width-SD 47.5 fL; White Blood Count 14.3 K/mm3 (4.8-10.8)
[2024-10-07 09:06] LABS: Albumin Level 2.9 g/dl (3.5-5.0); Chloride 83 mmol/L (98-107); Potassium 3.3 mmoL/L (3.5-5.1); Sodium 127 mmol/L (136-145)
[2024-10-07 09:09] LABS: Alanine Aminotransferase 14 U/L (12-78); Alkaline Phosphatase 140 U/L (38-126); Anion Gap 12.3 mEq/L (5-15); Aspartate Amino Transferase 24 U/L (17-59); Bilirubin,Total 0.4 mg/dl (0.2-1.3); Blood Urea Nitrogen 35 mg/dl (9-20); Calcium 8.4 mg/dl (8.4-10.2); Carbon Dioxide 35 mmol/L (22.0-30.0); Creatinine Clearance Estimated 65 mL/min (50-200); Estimated Glomerular Filt Rate 51 ml/min (>60); GFR (African American) 62 ML/MIN (>60); Globulin 2.9 g/dL (1.3-3.2); Glucose 178 mg/dl (74-100); Magnesium 2.3 mg/dl (1.6-2.3); Total Protein,Serum 5.8 g/dl (6.3-8.2)
[2024-10-07] MEDS: PREGABALIN 100MG CAPSULE 100 MG PO ×2 (09:59→12:26)
[2024-10-07] MEDS: PARoxetine 20MG TABLET 20 MG PO (09:59)
[2024-10-07] MEDS: acetaZOLAMIDE 250 MG TABLET PO (09:59)
[2024-10-07] MEDS: BUMETANIDE 1 MG TABLET 2 MG PO (09:59)
[2024-10-07] MEDS: METOPROLOL SUCCINATE XL 25MG TABLET 25 MG PO (09:59)
[2024-10-07] MEDS: APIXABAN 5MG TABLET 5 MG PO (09:59)
[2024-10-07] MEDS: LEVOFLOXACIN/D5W 750 MG/150 ML 750 MG/150 ML PIGGYBACK 100 MG IV (09:59)
[2024-10-07] MEDS: INSULIN GLARGINE 100 UNITS/ML 3ML FLEXPEN 60 UNIT SUBCUT (10:12)
[2024-10-07 12:00] VITALS: BP 106/62; PULSE 87; RESP 24; TEMP 36.7; O2SAT 98
[2024-10-07 12:41] LABS: POC Glucose,Bedside 247 (70-110)
[2024-10-07] MEDS: humaLOG 100 UNITS/ML 10ML VIAL (SSI) SUBCUT (12:44)
--- NOTE | 2024-10-07 14:37 | P.DS_ITS ---
General Admission date:: 10/05/24 Discharge date: 10/07/24 HPI HPI HPI: Mr. Christiansen is a 64-year-old male with significant past medical history and recurrent readmissions to hospital. He has a history of morbid obesity for entheses though his weight appears down somewhat this visit compared to last visit), HFpEF, uncontrolled diabetes, LORI, chronic lower extremity lymphedema, multiple pressure wounds, partial right foot amputation, urinary incontinence, inability to care for his self, A-fib, chronic anticoagulation and CKD with several episodes of LUPE in the past 6 months. He presented to the ER today due to worsening shortness of breath and feeling dehydrated over the past few days per his report. States has been taking his medication. Denies fever or chills. No vomiting or diarrhea. No chest pain. Denies any cough. Sleeps sitting up at home, this is chronic. Legs in clean wraps today. Not having as much weeping in his legs. Was brought to the ER via EMS. On arrival, is speaking in full sentences. Workup in the ER showed tachycardia with heart rate in the 120s to 130s. Significant disturbances on labs with white count of 18.4, sodium of 126, chloride of 74, pH of 7.59 on VBG with pCO2 of 34 and bicarb of 35. Kidney function with BUN 45 creatinine 1.2 which is improved from last admission 2 weeks ago. BNP elevated higher than it has been in the past at 4200. Potassium low at 2.6. Glucose severely elevated to 584. Given his significant disturbances, worsening diabetes control, initially recommended to the ER that patient be transferred for endocrine and multidisciplinary approach given complexity of patient and episodes of worsening kidney function when he has been admitted to our institution. Attempts were made to transfer patient. He was placed on a wait list at . At this time, unable to transfer however. Medicine admitted for further management. On arrival to the floor, patient states he feels a little bit better than when he first came in. Has no oxygen requirement at this time. Heart rate is improved. Hospital Course Hospital Course Hospital Course: Bebeto Christiansen is a 64-year-old male with morbid obesity, acute on chronic HFpEF, volume overload, lower extremity erythema, stasis ulcerations. Presented with worsening fatigue and shortness of breath. Found to have metabolic alkalosis, hyponatremia, severe hypokalemia. Discussed case with ER physician, requests admission for treatment of metabolic disturbances. Discussed patient's complexi ty and need for multidisciplinary approach. Attempts are made to transfer patient, but unable to transfer due to hospitals around us on divert. I decided to admit for further care. Showed improvement during admission. Sodium slightly improved. Trending up. Tolerating p.o. intake. Initiated on antibiotics for superficial cellulitis. Given his response to diuresis, antibiotics, improvement in sodium, will discharge home with sister. Recommend continued outpatient wound care. Problems addressed as follows: #Metabolic alkalosis: #Hypokalemia #Hyponatremia #Hypochloremia - Unclear etiology at this time. Urine sodium low at 7, consistent with overall volume sodium depletion. Improved to 128 by day of discharge. Chloride improved to 83. Diuretic regimen adjusted. Patient appears more dry than he has in the past. Significant alkalosis present, highly suspicious for contraction alkalosis related to diuretics. Does not appear volume overloaded. Diet reticulocyte Dieck to Bumex 2 mg twice daily. Continue acetazolamide 250 mL Ehly for alkalosis.. Continue metolazone 2.5 mg daily. - pH 7.59 on labs at presentation. pCO2 34. Repeat blood gas today charge with pH improvement to 7.43, pCO2 53, bicarb 35 #Acute on Chronic HFpEF #Atrial fibrillation #Hypertension -Does not appear volume overloaded this visit. BNP above his normal however at 4200. Treated with Bumex. Started on acetazolamide. Aggressive replacement of electrolytes during admission. Was fluid restricted to 2 L daily. #Lower extremity swelling, lymphedema #Chronic ulceration of lower legs; skin breakdown on buttocks #Lower extremity pain ? Patient afebrile, white count elevated however and peaked at 17. Initiated on levofloxacin 750 mg IV daily due to history of polymicrobial infections previous identified along his skin and ulcerations. Was having some foul-smelling discharge with discoloration concerning for possible Pseudomonas. Will continue Levaquin for 7 days. Does not appear to have any systemic signs of infection. ? Continues to have lower extremity pain. Caution with leg wraps. Tolerating current pain regimen with fair control - Continue Lyrica 3 times a day and tramadol every 6 hours as needed - Caution with opiates due to concern for possible withdrawal symptoms in the past Diabetes: - A1c worse last visit at 10.5. Reports compliance. Recent increase in glargine to 75 units twice daily with mealtime insulin of 15 units 2-3 times a day with meals - Holding Jardiance due to risk for Marilin's gangrene given groin wounds and retracted penis Microcytic anemia: Hemoglobin stable in the 9 range during admission. Received iron infusion during this admission. Has completed 3 infusions over the past month. Would benefit from 2 more to complete full course of 1 g of Venofer. Hemoglobin slowly improving on serial labs over multiple LORI: Consider oxygen at night versus CPAP after discussion with patient about his home regimen. On room air at this time; goal sats greater 90% Morbid obesity complicates all aspects of his care. Does appear to be losing some weight however after starting tirzepatide. Plan to continue after discharge. BMI is less than 50 this admission, showing documented weight loss Wound care consulted to assist with legs and stasis ulcers, refer to outpt wound care after DC Total time spent on discharge 32 minutes in counseling, documentation, chart review, and direct care with patient. Exam Data for Last 24 hours Vital signs and Labs for Last 24 Hours: Temp Pulse Resp BP Pulse Ox O2 Del Method O2 Flow Rate 98.0 F 87 24 106/62 L 98 Room Air 2 10/07/24 12:00 10/07/24 12:00 10/07/24 12:00 10/07/24 12:00 10/07/24 12:00 10/07/24 12:00 10/07/24 00:00 Laboratory Results - last 24 hr 10/05/24 16:38: POC Glucose 559 H* 10/06/24 17:00: VBG pH 7.43 H, VBG pCO2 53.7 H, VBG pO2 47.6 H, VBG HCO3 35.0 H, VBG Total CO2 36.7 H, VBG O2 Saturation 81.5 H, VBG Base Excess 10.7 H, VBG Lactic Acid 3.0 H 10/06/24 17:15: Sodium 124 L, Potassium 2.9 L*, Chloride 79 L, Carbon Dioxide 38 H, Anion Gap 9.9, BUN 41 H, Creatinine 1.70 H D, Estimated Creat Clear 53, Estimated GFR 41 L, Est GFR ( Amer) 50 L D, Glucose 201 H D, POC Glucose 207 H, Calcium 9.4, Magnesium 2.1 10/06/24 20:24: POC Glucose 191 H 10/06/24 21:16: Lactate 1.8 10/07/24 02:42: POC Glucose 125 H 10/07/24 05:07: POC Glucose 113 H 10/07/24 08:25: WBC 14.3 H, RBC 4.38 L, Hgb 9.1 L, Hct 31.7 L, MCV 72.4 L, MCH 20.8 L, MCHC 28.7 L, RDW 18.4 H, Plt Count 465 H, MPV 8.9, Neut % (Auto) 76.7, Lymph % (Auto) 14.2, Rosebud % (Auto) 6.9, Eos % (Auto) 1.2, Baso % (Auto) 0.3, Neut # (Auto) 10.9 H, Lymph # (Auto) 2.0, Rosebud # (Auto) 1.0, Eos # (Auto) 0.2, Baso # (Auto) 0.0, Sodium 127 L, Potassium 3.3 L, Chloride 83 L, Carbon Dioxide 35 H, Anion Gap 12.3, BUN 35 H, Creatinine 1.40 H, Estimated Creat Clear 65, Estimated GFR 51 L, Est GFR ( Amer) 62 D, Glucose 178 H, Calcium 8.4, Magnesium 2.3, Total Bilirubin 0.4, AST 24 D, ALT 14, Alkaline Phosphatase 140 H, Total Protein 5.8 L, Albumin 2.9 L D, Globulin 2.9, Albumin/Globulin Ratio 1.0 L 10/07/24 12:31: POC Glucose 247 H I & O for Last 24 hours: Intake & Output 10/04/24 10/05/24 10/06/24 10/07/24 23:59 23:59 23:59 23:59 Intake Total 2415 / 2625 992 / 992 900 / 900 Output Total 3535 / 4035 1950 / 2350 1450 / 1450 Balance -1120 / -1410 -958 / -1358 -550 / -550 Weight 178.262 kg 173.136 kg 173 kg Microbiology Reports for the Last 24 Hours: Microbiology 10/05/24 15:25 Anus CRE Surveillance Culture - Final 10/05/24 10:30 Blood Blood Culture - Preliminary NO GROWTH AFTER 48 HOURS 10/05/24 10:39 Blood Blood Culture - Preliminary NO GROWTH AFTER 48 HOURS Constitutional Constitutional: mild distress, morbidly obese, chronically ill appearing and cooperative *Routine HEENT Exam Head: Present normocephalic and atraumatic Eye: Present EOMI and PERRL ENT: Present mucous membranes moist Comments: dime sized abrasion on upper lip *Routine Neck Exam Neck: Present supple *Routine Respiratory Exam Respiratory: Present rhonchi, distant breath sounds, normal respiratory effort and symmetric chest movement; Absent wheezes or crackles *Routine Cardiovascular Exam Cardiovascular: Present Normal S1, Normal S2 and irregularly irregular *Routine Abdominal Exam Abdominal: Present soft, normoactive bowel sounds and obese; Absent tenderness *Routine Rectal Exam Patient deferred: visual exam Comments: Chronic decubitus wounds on bottom and upper portions of inner posterior thighs. Stage II *Routine Exam Comments: Severely retracted penis *Routine Extremities Exam Extremities: Present edema, full ROM and normal capillary refill *Routine Skin Exam Skin: Present dry and warm Comments: Severe wounds on bilateral shins, left worse than right. Bandages in place that are dry. Poor blood flow to feet, blue discoloration of toes which is chronic and stable *Routine Neurological Exam Neurological: Present alert, oriented X3 and moving all extremities; Absent altered mental status Detailed Neck Exam: Thyroids Thyroid: Absent bruit Results Data Completed and Pending Labs on day of discharge: Labs from last 24 hours 10/07/24 10/07/24 10/07/24 12:31 08:25 05:07 WBC 14.3 H RBC 4.38 L Hgb 9.1 L Hct 31.7 L MCV 72.4 L MCH 20.8 L MCHC 28.7 L RDW 18.4 H Plt Count 465 H MPV 8.9 Neut % (Auto) 76.7 Lymph % (Auto) 14.2 Rosebud % (Auto) 6.9 Eos % (Auto) 1.2 Baso % (Auto) 0.3 Neut # (Auto) 10.9 H Lymph # (Auto) 2.0 Rosebud # (Auto) 1.0 Eos # (Auto) 0.2 Baso # (Auto) 0.0 VBG pH VBG pCO2 VBG pO2 VBG HCO3 VBG Total CO2 VBG O2 Saturation VBG Base Excess VBG Lactic Acid Sodium 127 L Potassium 3.3 L Chloride 83 L Carbon Dioxide 35 H Anion Gap 12.3 BUN 35 H Creatinine 1.40 H Estimated Creat Clear 65 Estimated GFR 51 L Est GFR ( Amer) 62 D Glucose 178 H POC Glucose 247 H 113 H Lactate Calcium 8.4 Magnesium 2.3 Total Bilirubin 0.4 AST 24 D ALT 14 Alkaline Phosphatase 140 H Total Protein 5.8 L Albumin 2.9 L D Globulin 2.9 Albumin/Globulin Ratio 1.0 L 10/07/24 10/06/24 10/06/24 02:42 21:16 20:24 WBC RBC Hgb Hct MCV MCH MCHC RDW Plt Count MPV Neut % (Auto) Lymph % (Auto) Rosebud % (Auto) Eos % (Auto) Baso % (Auto) Neut # (Auto) Lymph # (Auto) Rosebud # (Auto) Eos # (Auto) Baso # (Auto) VBG pH VBG pCO2 VBG pO2 VBG HCO3 VBG Total CO2 VBG O2 Saturation VBG Base Excess VBG Lactic Acid Sodium Potassium Chloride Carbon Dioxide Anion Gap BUN Creatinine Estimated Creat Clear Estimated GFR Est GFR ( Amer) Glucose POC Glucose 125 H 191 H Lactate 1.8 Calcium Magnesium Total Bilirubin AST ALT Alkaline Phosphatase Total Protein Albumin Globulin Albumin/Globulin Ratio 10/06/24 10/06/24 10/05/24 17:15 17:00 16:38 WBC RBC Hgb Hct MCV MCH MCHC RDW Plt Count MPV Neut % (Auto) Lymph % (Auto) Rosebud % (Auto) Eos % (Auto) Baso % (Auto) Neut # (Auto) Lymph # (Auto) Rosebud # (Auto) Eos # (Auto) Baso # (Auto) VBG pH 7.43 H VBG pCO2 53.7 H VBG pO2 47.6 H VBG HCO3 35.0 H VBG Total CO2 36.7 H VBG O2 Saturation 81.5 H VBG Base Excess 10.7 H VBG Lactic Acid 3.0 H Sodium 124 L Potassium 2.9 L* Chloride 79 L Carbon Dioxide 38 H Anion Gap 9.9 BUN 41 H Creatinine 1.70 H D Estimated Creat Clear 53 Estimated GFR 41 L Est GFR ( Amer) 50 L D Glucose 201 H D POC Glucose 207 H 559 H* Lactate Calcium 9.4 Magnesium 2.1 Total Bilirubin AST ALT Alkaline Phosphatase Total Protein Albumin Globulin Albumin/Globulin Ratio Preliminary micro results at discharge 10/05/24 10:30 Blood Culture - Preliminary Blood NO GROWTH AFTER 48 HOURS 10/05/24 10:39 Blood Culture - Preliminary Blood NO GROWTH AFTER 48 HOURS DS: Diagnosis Discharge Diagnosis (1) Alkalosis, metabolic: Status: Resolved Code(s): E87.3 - Alkalosis (2) DKA (diabetic ketoacidosis): Status: Resolved Code(s): E11.10 - Type 2 diabetes mellitus with ketoacidosis without coma (3) Acute on chronic heart failure with preserved ejection fraction (HFpEF): Status: Acute Code(s): I50.33 - Acute on chronic diastolic (congestive) heart failure (4) Venous stasis ulcer of both lower extremities without varicose veins: Status: Acute Code(s): I87.2 - Venous insufficiency (chronic) (peripheral); L97.919 - Non-pressure chronic ulcer of unspecified part of right lower leg with unspecified severity; L97.929 - Non-pressure chronic ulcer of unspecified part of left lower leg with unspecified severity (5) Peripheral vascular disease: Status: Acute Code(s): I73.9 - Peripheral vascular disease, unspecified (6) Cellulitis: Status: Acute Code(s): L03.90 - Cellulitis, unspecified Qualifiers: Laterality: unspecified laterality Site of cellulitis: extremity Site of cellulitis of extremity: lower extremity Qualified Code(s): L03.119 - Cellulitis of unspecified part of limb (7) Chronic wound: Status: Acute Code(s): T14.8XXA - Other injury of unspecified body region, initial encounter (8) Bilateral edema of lower extremity: Status: Acute Code(s): R60.0 - Localized edema (9) Atrial fibrillation with RVR: Status: Resolved Code(s): I48.91 - Unspecified atrial fibrillation (10) Diabetic neuropathy: Status: Acute Code(s): E11.40 - Type 2 diabetes mellitus with diabetic neuropathy, unspecified Qualifiers: Diabetes mellitus complication detail: diabetic polyneuropathy Diabetes mellitus type: type 2 Qualified Code(s): E11.42 - Type 2 diabetes mellitus with diabetic polyneuropathy (11) Volume overload: Status: Acute Code(s): E87.70 - Fluid overload, unspecified Qualifiers: Hypervolemia type: unspecified Qualified Code(s): E87.70 - Fluid overload, unspecified (12) Microcytic anemia: Status: Acute Code(s): D50.9 - Iron deficiency anemia, unspecified (13) Adult failure to thrive: Status: Acute Code(s): R62.7 - Adult failure to thrive (14) LORI (obstructive sleep apnea): Status: Acute Code(s): G47.33 - Obstructive sleep apnea (adult) (pediatric) (15) Diabetes mellitus: Status: Acute Code(s): E11.9 - Type 2 diabetes mellitus without complications Qualifiers: Diabetes mellitus complication status: with hyperglycemia Diabetes mellitus intermediate accountant insulin use: without residential use Diabetes mellitus type: type 2 Qualified Code(s): E11.65 - Type 2 diabetes mellitus with hyperglycemia (16) Sacral wound: Status: Acute Code(s): S31.000A - Unspecified open wound of lower back and pelvis without penetration into retroperitoneum, initial encounter Qualifiers: Encounter type: initial encounter Qualified Code(s): S31.000A - Unspecified open wound of lower back and pelvis without penetration into retroperitoneum, initial encounter (17) Morbid obesity with BMI of 45.0-49.9, adult: Status: Acute Code(s): E66.01 - Morbid (severe) obesity due to excess calories; Z68.42 - Body mass index [BMI] 45.0-49.9, adult Meds Home Medications and Allergies Home Medications ?Medication ?Instructions ?Recorded ?Confirmed ?Type paroxetine HCl 20 mg tablet 20 mg PO DAILY 07/30/24 History insulin lispro 100 unit/mL See Protocol SQ ACHS 30 day s #1.2 08/01/24 10/11/24 Rx subcutaneous solution (Humalog mL U-100 Insulin) apixaban 5 mg tablet (Eliquis) 5 mg PO BID 30 days #60 tabs 09/22/24 10/11/24 Rx metoprolol succinate 25 mg 25 mg PO DAILY 30 days #30 tabs 09/22/24 10/11/24 Rx tablet,extended release 24 hr nystatin 100,000 unit/gram topical 1 applic topical QI D #60 grams 09/22/24 10/11/24 Rx powder pregabalin 100 mg capsule 100 mg PO TID 30 days #90 ca ps 09/22/24 10/11/24 Rx acetazolamide 250 mg tablet 250 mg PO DAILY 30 days #3 0 tabs 10/07/24 10/11/24 Rx bumetanide 2 mg tablet 2 mg PO BID 30 days #90 tabs 10/07/24 10/11/24 Rx levofloxacin 750 mg tablet 750 mg PO DAILY #7 tabs 10/11/24 Rx metolazone 2.5 mg tablet 2.5 mg PO DAILY 30 days #60 tabs 10/07/24 10/11/24 Rx potassium chloride 20 mEq 40 meq (2 x 20 mEq) PO DAILY 30 10/07/24 10/11/24 Rx tablet,extended days #60 tabs release(part/cryst) (Klor-Con M) sodium hypochlorite 0.25 % 1 applic topical DAILYP PRN WILL 10/07/24 10/11/24 Rx solution (Dakin's Solution) DRESSING CHANGES #0 mL tramadol 75 mg tablet 75 mg PO Q6H PRN pain 30 day s #120 10/07/24 10/11/24 Rx tabs insulin glargine 100 unit/mL (3 60 unit SQ BID 5 10/11/24 History mL) subcutaneous pen (Lantus Solostar U-100 Insulin) iron sucrose 200 mg iron/10 mL 200 mg (10 mL) IV WEEKL Y 2 doses 10/11/24 10/11/24 Rx intravenous solution (Venofer) ondansetron 4 mg disintegrating 4 mg PO Q6H PRN nausea and 10/11/24 10/11/24 Rx tablet vomiting #30 tabs tirzepatide 5 mg/0.5 mL 5 mg (0.5 mL) SQ WEEKLY #2 m L 10/11/24 10/11/24 Rx subcutaneous pen injector (Mounjaro) tizanidine 4 mg capsule 4 mg PO HS PRN muscle spasti city 10/11/24 10/11/24 Rx #30 caps New Prescriptions to Start Prescriptions: acetazolamide Cullen Wu levofloxacin Cullen Wu potassium chloride [Klor-Con M20] Cullen Wu tramadol Cullen Wu Allergies Allergy/AdvReac Type Severity Reaction Status Date / Time hydromorphone (From Dilaudid) AdvReac Vomiting Verified 10/11/24 15:04 morphine AdvReac Vomiting Verified 10/11/24 15:04 Discharge Plan Disposition Patient Disposition: Home, Self-Care Condition: Fair Discharge Order Discharge Orders: Discharge Order (Routine); Ordered 10/07/24 Ordered By: Cullen Wu Follow up Plan Follow up with: Saulo Martinez DO [Primary Care Provider, [facility]] - 10/11/24 2:45 pm Pete Coyle PT [Physical Therapist, Rehab Therapy] - 10/10/24 2:00 pm Referral Note: Wound Care Prescriptions/Medication Reconciliation: New acetazolamide 250 mg Tablet 250 mg PO DAILY 30 Days Qty: 30 0RF potassium chloride [Klor-Con M20] 20 mEq Tablet,Er Particles/Crystals 40 meq PO DAILY 30 Days Qty: 60 0RF Dakin's Solution 0.25 % Solution 1 applic topical DAILYP PRN (Reason: WILL DRESSING CHANGES) Qty: 0 0RF tramadol 75 mg tablet 75 mg PO Q6H PRN (Reason: pain) 30 Days Qty: 120 0RF levofloxacin 750 mg tablet 750 mg PO DAILY Qty: 7 0RF Continued paroxetine HCl 20 mg Tablet 20 mg PO DAILY insulin lispro [Humalog U-100 Insulin] 100 unit/mL Solution See Protocol SQ ACHS 30 Days Qty: 1.2 4RF Protocol: Insulin Corrective Med-Dose Regimen Condition: Fingerstick Blood Glucose Dose/Route: Insulin Units Condition: 151-200 mg/dl Dose/Route: 2 units/SQ Condition: 201-250 mg/dl Dose/Route: 5 units/SQ Condition: 251-300 mg/dl Dose/Route: 8 units/SQ Condition: 301-350 mg/dl Dose/Route: 10 units/SQ Condition: 351-400 mg/dl Dose/Route: 12 units/SQ Condition: 401-450 mg/dl Dose/Route: 15 units/SQ Condition: > 450 mg/dl Dose/Route: CALL MD Protocol Text: Medium Intensity Sliding Scale Insulin nystatin 100,000 unit/gram Powder 1 applic topical QID Qty: 60 0RF metoprolol succinate 25 mg Tablet Extended Release 24 Hr 25 mg PO DAILY 30 Days Qty: 30 0RF pregabalin 100 mg capsule 100 mg PO TID 30 Days Qty: 90 0RF Eliquis 5 mg Tablet 5 mg PO BID 30 Days Qty: 60 0RF Changed metolazone 2.5 mg Tablet 2.5 mg PO DAILY 30 Days Qty: 60 0RF bumetanide 2 mg tablet 2 mg PO BID 30 Days Qty: 90 0RF Discontinued tramadol 50 mg tablet 50 mg PO Q8H PRN (Reason: pain) Qty: 15 0RF No Action Mounjaro 5 mg/0.5 mL pen injector 5 mg SQ WEEKLY Qty: 2 2RF ondansetron 4 mg tablet,disintegrating 4 mg PO Q6H PRN (Reason: nausea and vomiting) Qty: 30 3RF Venofer 200 mg iron/10 mL solution 200 mg IV WEEKLY Rx Instructions: administer over 30 mins. Patient has received 3 doses already. tizanidine 4 mg capsule 4 mg PO HS PRN (Reason: muscle spasticity) Qty: 30 0RF insulin glargine [Lantus Solostar U-100 Insulin] 100 unit/mL (3 mL) insulin pen 60 unit SQ BID Problem Reconciliation Problems Reviewed?: Yes Patient Discharge Instructions ACTIVITY: Continue current activity DIET: continue same diet and diabetic diet Print Language: Hungarian Providers Primary Care Provider: Saulo Martinez Admit Provider: Cullen Wu Attending Provider: Cullen Wu
[2024-10-07 14:55] LABS: Chloride, Urine <20 mmol/L (Not Estab.)
--- NOTE | 2024-10-10 11:42 | SW/DCPLANNER ---
Phoned patient to do a follow up phone call and patient stated come on its a waste of time and that i woke him up and he hung up. Prashanth Hardy
== END 2024-10-07 17:15 | disposition home or self-care (01) | DRG 637 ==
LOC: ER 10:48 → ICU 13:10 → 2ND 10-06 12:43
PROVIDERS: Admitting Provider Internal Medicine Adolescent Medicine; Emergency Provider Emergency Medicine; PCP Internal Medicine; Visit Provider Internal Medicine Adolescent Medicine
DX: E11.10 Type 2 diabetes mellitus with ketoacidosis without coma (principal); I50.33 Acute on chronic diastolic (congestive) heart failure; I13.0 Hypertensive heart and chronic kidney disease with heart failure and stage 1 through stage 4 chronic kidney disease, or unspecified chronic kidney disease; E87.3 Alkalosis; E87.1 Hypo-osmolality and hyponatremia; Z68.42 Body mass index [BMI] 45.0-49.9, adult; R65.10 Systemic inflammatory response syndrome (SIRS) of non-infectious origin without acute organ dysfunction; L97.821 Non-pressure chronic ulcer of other part of left lower leg limited to breakdown of skin; L97.811 Non-pressure chronic ulcer of other part of right lower leg limited to breakdown of skin; I48.91 Unspecified atrial fibrillation; G47.33 Obstructive sleep apnea (adult) (pediatric); E11.51 Type 2 diabetes mellitus with diabetic peripheral angiopathy without gangrene; E78.5 Hyperlipidemia, unspecified; E66.01 Morbid (severe) obesity due to excess calories; I89.0 Lymphedema, not elsewhere classified; R32 Unspecified urinary incontinence; E11.22 Type 2 diabetes mellitus with diabetic chronic kidney disease; N18.9 Chronic kidney disease, unspecified; I87.8 Other specified disorders of veins; L89.152 Pressure ulcer of sacral region, stage 2; I87.2 Venous insufficiency (chronic) (peripheral); E11.42 Type 2 diabetes mellitus with diabetic polyneuropathy; D50.9 Iron deficiency anemia, unspecified; R62.7 Adult failure to thrive; E87.6 Hypokalemia; E87.8 Other disorders of electrolyte and fluid balance, not elsewhere classified; E86.9 Volume depletion, unspecified; Z74.1 Need for assistance with personal care; Z79.4 Long term (current) use of insulin; Z79.899 Other long term (current) drug therapy; Z88.5 Allergy status to narcotic agent; Z89.422 Acquired absence of other left toe(s); Z89.421 Acquired absence of other right toe(s); Z22.39 Carrier of other specified bacterial diseases; Z79.01 Long term (current) use of anticoagulants; Z79.85 Long-term (current) use of injectable non-insulin antidiabetic drugs; Z91.81 History of falling
CPT/HCPCS: 36415; 71045; 80048; 80053; 81001; 82436; 82803; 82962; 83605; 83735; 83880; 84484; 84540; 85025; 87040; 87081; 93005; 97162; 97166; J0692; J1756; J1938; J1956; J2405; J3370; J3475; J3480; J7040; J7131

== ENCOUNTER 2024-10-10 13:59 | Outpatient (RCR) | payer MEDICARE, SELFPAY ==
--- NOTE | 2024-10-10 15:03 | HMH.RHREAS ---
Rehab Reassessment Rehab OP Re-assessment Start: 10/10/24 14:06 Freq: Status: Active Protocol: Document 10/10/24 14:47 [email or web address] (Rec: 10/10/24 15:02 PHORNE [id number]) E-signed By Pete Coyle, PT Jose Alberto Wound Assessment Tool Assessment Wound size 5=Length x Width >80 sq cm Wound depth 3=Full thickness skin loss involving damage or necrosis of Wound edges 2=Distinct, outline clearly visible, attached, even with wound base Wound undermining 1=None present Necrotic tissue type 1=Non visible Necrotic tissue 1=None visible amount Exudate type 4=Serous: thin, watery, clear Exudate amount 4=Moderate Skin color 4=Dark red or purple &/or non-blanchable surrounding wound Peripheral tissue 5=Crepitus and/or pitting edema extends > or = 4 cm edema around wound Peripheral tissue 1=None present induration Granulation tissue 2=Bright, beefy red;75% to 100% of wound filled &/or tissue overgrowth Epithelialization 4=25% to < 50% wound covered Wound assessment 37 total score Rehab Re-assessment Subjective Subjective Pt reports less pain overall in B LE, but L LE remains tender to touch and painful with dressing changes. He was again adm to the hospital for several days last week with continuation of previous symptoms related to uncontrolled diabetes, CHF, and multiple LE wounds. He reports, I don't have as much drainage now. I've lost about 70 lbs in the past month with my new medicine ( mounjaro). I just don't have any appetite. Objective Objective Notes R lateral lower leg wounds: L= 11.5 cm, W= 16.0 cm, D= 0.1 cm. L lower leg wounds: L= 15.5 cm, W= 30.0 cm, D= 0.1 cm. B LE edema: Continued pitting edema noted, ut much improved with consistent compression. Pt has obviously lost a significant amount of fluid as hoped with increased diuretic medications. Assessment Progress Assessment Slower Than Expected Assessment Notes Pt has shown improvement in overall wound tissue health , but he continues to show increased overall wound surface area. He does continue to have significant open wound are on B lower legs and needs continued skilled therapy services to address these wounds. Patient goals met ST/4 LT/5 Plan Plan Continue per initial POC. Frequency of Therapy 1 x/wk Duration of therapy 4 wks Time and Billing Re-Eval Time 11 Re-Eval Billing 1 Units Charge for PT Yes reassessment? PHYSICIAN CERTIFICATION: I certify the specified therapy services for Bebeto Christiansen are required, authorized, and reviewed every 30 days.
== END 2024-10-10 23:59 | disposition home or self-care (01) ==
LOC: PT 13:59
PROVIDERS: Visit Provider Internal Medicine Adolescent Medicine
DX: L97.919 Non-pressure chronic ulcer of unspecified part of right lower leg with unspecified severity (principal); L97.929 Non-pressure chronic ulcer of unspecified part of left lower leg with unspecified severity
CPT/HCPCS: 97164; 97597; 97598

== ENCOUNTER 2024-10-25 15:29 | Observation (INO) | payer MEDICARE, SELFPAY ==
[2024-10-25] VITALS (7 sets, daily range): BP systolic 74–125; BP diastolic 57–77; PULSE 65–125; RESP 13–34; TEMP 36.5–36.7; O2SAT 97–100; BMI 43.7
--- NOTE | 2024-10-25 15:37 | XR_ITS ---
PROCEDURE INFORMATION: Exam: XR Chest Exam date and time: 10/25/2024 4:34 PM Age: 64 years old Clinical indication: Dyspnea TECHNIQUE: Imaging protocol: Radiologic exam of the chest. Views: 1 view. COMPARISON: CR XR CHEST PORTABLE 09/11/2024 12:01 AM FINDINGS: Lungs: The lungs appear clear. No focal areas of consolidation. Pleural spaces: No pleural effusions. Negative for pneumothorax. Heart/Mediastinum: Pulmonary vasculature is within range of normal. The heart is borderline enlarged. Bones/joints: Postoperative spinal fixation rods are present involving the thoracic spine, as before. IMPRESSION: Negative for an acute cardiopulmonary abnormality. Stable chest radiograph.
--- NOTE | 2024-10-25 15:37 | HMH.EDGENADL ---
Discharge Plan Disposition Patient Disposition: Admitted Prescriptions Prescriptions: No Action Mounjaro 5 mg/0.5 mL pen injector 5 mg SQ WEEKLY Qty: 2 2RF ondansetron 4 mg tablet,disintegrating 4 mg PO Q6H PRN (Reason: nausea and vomiting) Qty: 30 3RF Venofer 200 mg iron/10 mL solution 200 mg IV WEEKLY Rx Instructions: administer over 30 mins. Patient has received 3 doses already. tizanidine 4 mg capsule 4 mg PO HS PRN (Reason: muscle spasticity) Qty: 30 0RF insulin glargine [Lantus Solostar U-100 Insulin] 100 unit/mL (3 mL) insulin pen 60 unit SQ BID paroxetine HCl 20 mg Tablet 20 mg PO DAILY insulin lispro [Humalog U-100 Insulin] 100 unit/mL Solution See Protocol SQ ACHS 30 Days Qty: 1.2 4RF Protocol: Insulin Corrective Med-Dose Regimen Condition: Fingerstick Blood Glucose Dose/Route: Insulin Units Condition: 151-200 mg/dl Dose/Route: 2 units/SQ Condition: 201-250 mg/dl Dose/Route: 5 units/SQ Condition: 251-300 mg/dl Dose/Route: 8 units/SQ Condition: 301-350 mg/dl Dose/Route: 10 units/SQ Condition: 351-400 mg/dl Dose/Route: 12 units/SQ Condition: 401-450 mg/dl Dose/Route: 15 units/SQ Condition: > 450 mg/dl Dose/Route: CALL MD Protocol Text: Medium Intensity Sliding Scale Insulin nystatin 100,000 unit/gram Powder 1 applic topical QID Qty: 60 0RF metoprolol succinate 25 mg Tablet Extended Release 24 Hr 25 mg PO DAILY 30 Days Qty: 30 0RF pregabalin 100 mg capsule 100 mg PO TID 30 Days Qty: 90 0RF Eliquis 5 mg Tablet 5 mg PO BID 30 Days Qty: 60 0RF acetazolamide 250 mg Tablet 250 mg PO DAILY 30 Days Qty: 30 0RF potassium chloride [Klor-Con M20] 20 mEq Tablet,Er Particles/Crystals 40 meq PO DAILY 30 Days Qty: 60 0RF Dakin's Solution 0.25 % Solution 1 applic topical DAILYP PRN (Reason: WILL DRESSING CHANGES) Qty: 0 0RF tramadol 75 mg tablet 75 mg PO Q6H PRN (Reason: pain) 30 Days Qty: 120 0RF levofloxacin 750 mg tablet 750 mg PO DAILY Qty: 7 0RF metolazone 2.5 mg Tablet 2.5 mg PO DAILY 30 Days Qty: 60 0RF bumetanide 2 mg tablet 2 mg PO BID 30 Days Qty: 90 0RF Clinical Impressions Clinical Impression: Nausea & vomiting, Atrial fibrillation with rapid ventricular response, Acute hypokalemia, Hyperglycemia, Acute hyponatremia Instructions Patient Instructions: DI for Diarrhea and Traveler's Diarrhea -- Adult, DI for Diarrhea and Traveler's Diarrhea -- Child, DI for Nausea -- Adult, DI for Nausea -- Child Print Language Print Language: Mozambican Discharge ED Provider: Jennifer Felix General Adult HPI General Chief complaint: Nausea/Vomiting/Diarrhea Stated complaint: Nausea Time Seen by Provider: 10/25/24 15:51 Mode of Arrival: EMS Source of Information: Patient and EMS Description of Symptoms (Recalled from ER Triage Doc. by RN): pt presents to ED c/o nausea x 3 days and weakness. pt denies any vomiting, diarrhea or fever. History of Present Illness HPI narrative: Pt is well known to our ED, morbidly obese, history of CHF, PVD, DM, lower extremity wounds and amputations with frequent hospitalizations presents with nausa and vomiting. He was unable to tell me more from a history or physical standpoint only yelling at me to help him move in the bed and to get him something to vomit in. When asked what other symptoms he has, he would not tell me. Related Data Home Medications ?Medication ?Instructions ?Recorded ?Confirmed paroxetine HCl 20 mg tablet 20 mg PO DAILY 07/30/24 10/11/24 insulin glargine 100 unit/mL (3 60 unit SQ BID 10/11/24 10/11/24 mL) subcutaneous pen (Lantus Solostar U-100 Insulin) Previous Rx's ?Medication ?Instructions ?Recorded insulin lispro 100 unit/mL See Protocol SQ ACHS 30 days #1.2 08/01/24 subcutaneous solution (Humalog mL U-100 Insulin) apixaban 5 mg tablet (Eliquis) 5 mg PO BID 30 days #60 tabs 09/22/24 metoprolol succinate 25 mg 25 mg PO DAILY 30 days #30 tabs 09/22/24 tablet,extended release 24 hr nystatin 100,000 unit/gram topical 1 applic topical QID #60 grams 09/22/24 powder pregabalin 100 mg capsule 100 mg PO TID 30 days #90 caps 09/22/24 acetazolamide 250 mg tablet 250 mg PO DAILY 30 days #30 tabs 10/07/24 bumetanide 2 mg tablet 2 mg PO BID 30 days #90 tabs 10/07/24 levofloxacin 750 mg tablet 750 mg PO DAILY #7 tabs 10/07/24 metolazone 2.5 mg tablet 2.5 mg PO DAILY 30 days #60 tabs 10/07/24 potassium chloride 20 mEq 40 meq (2 x 20 mEq) PO DAILY 30 10/07/24 tablet,extended days #60 tabs release(part/cryst) (Klor-Con M) sodium hypochlorite 0.25 % 1 applic topical DAILYP PRN WILL 10/07/24 solution (Dakin's Solution) DRESSING CHANGES #0 mL tramadol 75 mg tablet 75 mg PO Q6H PRN pain 30 days #120 10/07/24 tabs iron sucrose 200 mg iron/10 mL 200 mg (10 mL) IV WEEKLY 2 doses 10/11/24 intravenous solution (Venofer) ondansetron 4 mg disintegrating 4 mg PO Q6H PRN nausea and 10/11/24 tablet vomiting #30 tabs tirzepatide 5 mg/0.5 mL 5 mg (0.5 mL) SQ WEEKLY #2 mL 10/11/24 subcutaneous pen injector (Mounjaro) tizanidine 4 mg capsule 4 mg PO HS PRN muscle spasticity 10/11/24 #30 caps Allergies Allergy/AdvReac Type Severity Reaction Status Date / Time hydromorphone (From Dilaudid) AdvReac Vomiting Verified 10/11/24 15:04 morphine AdvReac Vomiting Verified 10/11/24 15:04 [facility] Disclaimer: The information contained in this section may have been updated after the patient was seen, as this information can be updated by other users. Medical History Acute on chronic heart failure with preserved ejection fraction (HFpEF) Atrial fibrillation Cellulitis Cellulitis of left lower extremity Diabetes mellitus Hypertension Morbid obesity with BMI of 50.0-59.9, adult LORI (obstructive sleep apnea) Peripheral arterial disease Venous stasis ulcer of both lower extremities without varicose veins Volume overload Surgical History History of amputation of left fifth toe History of amputation of right fourth toe Family History Other No significant family history Social History Smoking Status: Former smoker alcohol intake: never current occupational status: retired and disabled Travel in the last 8 weeks?: None Have you lived/traveled outside US in past 30 days?: No Contact w/someone who lives/traveled outside US past 30 days?: No Exposure to someone with infectious disease in past 14 days?: No Do you have a fever (greater than 100.4 F or 38 C)?: No Have you tested positive for COVID-19?: No Exposed to someone with COVID-19 in past 14 days?: No Do you have a sore throat?: No Do you have a cough?: No Do you have any weakness?: No Do you have any diarrhea?: No Are you experiencing any unusual bleeding?: No Do you have any muscle aches/pain?: No Do you have any abdominal pain?: No Are you experiencing loss of taste or smell?: No Other Medical History Have you received the Flu Vaccine for this season: No Have you received the Pneumonia Vaccine: No ROS Obtained: Yes All systems reviewed & no additional complaints except as documented Physical Exam General General appearance: other (moaning repetitively ) Respiratory Respiratory exam: Present normal lung sounds bilaterally; Absent respiratory distress Cardiovascular Cardiovascular exam: Present regular rate; Absent normal rhythm Extremities Exam Extremities exam: Present other (severe bilateral lower extremity edema with compressive dressings in place ) Neurological Exam Neurological exam: Present alert and other (moving all extremities ) Medical Decision Making Medical Records Screening: Per USPSTF and CDC recommendations, given the prevalence of disease in our region, it is our hospital?s policy to screen for HIV and viral Hepatitis for all patients aged 18 and over and those with ongoing risk factors. Madi Inquiry Pt receiving controlled substance: No Vital Signs: 10/25/24 15:29 Temperature 97.8 F Temperature Source Oral Pulse Rate [Right Radial] 66 Respiratory Rate 18 Blood Pressure [Right Arm] 125/57 L Blood Pressure Mean [Right Arm] 79 Blood Pressure Source [Right Arm] Automatic Cuff Blood Pressure Position [Right Arm] Sitting 02 Sat by Pulse Oximetry 97 Oxygen Delivery Method Room Air Lab Data Lab results reviewed: Yes I reviewed the patient's lab results. Lab Results 10/25/24 15:35: VBG pH 7.59 H, VBG pCO2 34.5 L, VBG pO2 37.6, VBG HCO3 32.3 H, VBG Total CO2 33.3 H, VBG O2 Saturation 77.6 H, VBG Base Excess 10.5 H, VBG Lactic Acid 4.4 H 10/25/24 15:54: WBC 15.0 H, RBC 5.64, Hgb 12.0 L, Hct 38.9 L, MCV 69.0 L, MCH 21.3 L, MCHC 30.8 L, RDW 19.6 H, Plt Count 437 H, MPV 9.0, Neut % (Auto) 77.7, Lymph % (Auto) 15.7, Winn % (Auto) 5.3, Eos % (Auto) 0.5, Baso % (Auto) 0.3, Neut # (Auto) 11.7 H, Lymph # (Auto) 2.4, Winn # (Auto) 0.8, Eos # (Auto) 0.1, Baso # (Auto) 0.1, Sodium 127 L, Potassium 2.8 L*, Chloride 79 L, Carbon Dioxide 32 H, Anion Gap 18.8 H, BUN 25 H, Creatinine 1.20, Estimated Creat Clear 75, Estimated GFR 61, Est GFR ( Amer) 74, Glucose 417 H*, Calcium 9.7, Phosphorus 2.1 L, Magnesium 2.1, Total Bilirubin 0.9, AST 27, ALT 16, Alkaline Phosphatase 175 H, Troponin I 0.02, NT-Pro-B Natriuret Pep 1510 H, Total Protein 8.2 D, Albumin 4.3, Globulin 3.9 H, Albumin/Globulin Ratio 1.1, Lipase 227 10/25/24 15:54 10/25/24 15:54 Orders (Tests/Meds): ED MEDICATIONS Generic Name Dose Route Start Last Admin Trade Name Freq PRN Reason Stop Dose Admin Potassium Chloride/Water 100 mls @ 100 mls/hr 10/25/24 16:30 10/25/24 17:45 Potassium Chloride 10meq/100ml Ivpb IV 10/25/24 19:29 100 mls/hr Q1H JESSICA Administration Metoprolol Tartrate 5 mg 10/25/24 17:54 Metoprolol Tartrate 5mg/5ml Vial IV 10/25/24 17:55 ONCE ONE Discontinued Medications Generic Name Dose Route Start Last Admin Trade Name Eddieq PRN Reason Stop Dose Admin Ondansetron HCl 4 mg 10/25/24 15:35 10/25/24 15:57 Ondansetron 4mg/2ml Vial IV 10/25/24 15:36 4 mg ONCE ONE Administration Potassium Chloride 40 meq 10/25/24 16:20 10/25/24 17:42 Potassium Chloride 20meq/15ml Udc PO 10/25/24 16:21 40 meq ONCE ONE Administration ORDERS Category Date Time Status CXR --portable [XR chest portable] Stat Exams 10/25/24 15:37 Completed BNP [NT Pro Brain Natriuretic Pep.] Stat Lab 10/25/24 15:54 Completed CBC w/Auto Diff [Complete Blood Count Auto Diff] Stat Lab 10/25/24 15:54 Completed CMP [Comprehensive Metabolic Panel] Stat Lab 10/25/24 15:54 Completed Lactate Venous Stat Lab 10/25/24 15:35 Ordered Lipase Stat Lab 10/25/24 15:54 Completed Magnesium Stat Lab 10/25/24 15:54 Completed Phosphorous Stat Lab 10/25/24 15:54 Completed Trop I [Troponin I] Stat Lab 10/25/24 15:54 Completed Troponin I Q3H Lab 10/25/24 18:45 Ordered Troponin I Q3H Lab 10/25/24 21:45 Ordered UA [Urinalysis and Microscopic] Stat Lab 10/25/24 16:26 Ordered Blood Culture Stat Micro 10/25/24 15:36 Ordered Venous Blood Gas Stat RT 10/25/24 15:35 Completed Medical Decision Narrative: Pt well known to our hospital and I have personally cared for him on several occassions. He frequently is rude to staff and does not articulate well his complaints but he does appear more ill than recent presentations. Biggest concern for his presentation is DKA and metabolic abnormalities but other things such as sepsis, pna, CHF exacerbation etc are on the differential. Reassessment 557 patient continues to moan and scream and yell at staff he has been very belligerent. Patient was eventually moved into a room. Patient does have significant hypokalemia at 2.8. Will require oral and IV replacement but he continues to retch and is not able to tolerate anything by mouth at the moment. Patient also has hyponatremia may have some component of pseudohyponatremia in the setting of hyperglycemia but this is not significant enough to severely depress his sodium. He is still volume overloaded clinically no IV fluids have been administered. Additionally patient had a chest x-ray performed which I personally interpreted which shows no evidence of an acute cardiopulmonary emergency. He has a nonspecific leukocytosis but no other evidence of sepsis. Abdominal exam is benign he is not complaining of any abdominal pain at this point so holding on any scan. Intra-abdominal pathology remains in the differential but not indicated at the moment. Lastly patient developed A-fib RVR after being in the emergency department EKG was performed I personally interpreted shows a ventricular rate of [address] depressions throughout no ST elevations there is left axis deviation patient was given IV metoprolol. Discussed the case with hospital medicine who will admit him for further evaluation and management of his electrolyte abnormalities symptomatic nausea and vomiting and A-fib RVR. Critical Care Critical Care Time Critical Care Time: Yes Attestation: On 10/25/24, the high probability of a clinically significant, sudden or life threatening deterioration of the following system(s) required my full and direct attention, intervention and personal management. The time I documented below is in addition to time spent performing reported procedures but includes the following listed in this critical care notation. Total Time Total Critical Care Time: 35
--- OUTSIDE RECORDS SUMMARY | 2024-10-25 15:56 | XMS_ITS | Encounter Summary ---
Author Organization [facility] [place] [address] Care Team Providers Care Supervisor Assembly And Packing Name Role Phone Lincoln Hillman MD Primary Care Provider [phone] Juan Cantu MD Primary Care Provider [phone] Kym Frias RN Unavailable Unavailable Julee Giang MAGNET MAKER Unavailable Unavailable Encounter Details Date Type Department Care Team (Late st Contact Info) Description 02/08/2018 Lab Requisition [facility] [address] [place] [address] Cullen Resendez, [address] [place] [address] [id number] Heart failure (HCC) Social History Tobacco Use [...] - 11.0 x10(3)/mcL 02/08/2018 6:37 AM EDT [facility] RBC 5.06 4.30 - 5.90 x10(6)/mcL 02/08/2018 6:37 AM EDT [facility] Hgb 13.9 13.2 - 17.3 g/dL 02/08/2018 6:37 AM EDT [facility] Hct 43.2 39.0 - 55.0 % 02/08/2018 6:37 AM EDT [facility] MCV 85.4 81.0 - 101.0 fL 02/08/2018 6:37 AM EDT [facility] MCH 27.5 27.0 - 31.0 pg 02/08/2018 6:37 AM EDT [facility] MCHC 32.2(L) 33.0 - 36.0 g/dL 02/08/2018 6:37 AM EDT [facility] Platelet 260 150 - 400 x10(3)/mcL 02/08/2018 6:37 AM EDT [facility] MPV 9.8 7.4 - 10.4 fL 02/08/2018 6:37 AM EDT [facility] Neut Percent 57.4 % 02/08/2018 6:37 AM EDT [facility] Lymph Percent 33.2 % 02/08/2018 6:37 AM EDT [facility] [place] Percent 5.9 % 02/08/2018 6:37 AM EDT [facility] Eos Percent 2.6 % 02/08/2018 6:37 AM EDT [facility] Baso Percent 0.4 % 02/08/2018 6:37 AM EDT [facility] RDW 40.1 35.1 - 43.9 fL 02/08/2018 6:37 AM EDT [facility] NRBC Auto % 0.0 <=1.0 % 02/08/2018 6:37 AM EDT [facility] Imm Gran% 0.5 % 02/08/2018 6:37 AM EDT [facility] IMMGRAN# 0.0 <=0.0 x10(3)/mcL 02/08/2018 6:37 AM EDT [facility] Neut # 4.2 1.8 - 7.7 x10(3)/[facility] 02/08/2018 6:37 AM EDT [facility] Lymph # 2.4 1.0 - 4.8 x10(3)/[facility] 02/08/2018 6:37 AM EDT [facility] [place] # 0.4 0.0 - 0.8 x10(3)/[facility] 02/08/2018 6:37 AM EDT [facility] Eos# 0.2 0.0 - 0.7 x10(3)/[facility] 02/08/2018 6:37 AM EDT [facility] Baso # 0.0 0.0 - 0.2 x10(3)/[facility] 02/08/2018 6:37 AM EDT [facility] Blood VENOUS BLOOD / Unknown Venipuncture / Unknown 02/08/2018 6:07 AM EDT 02/08/2018 6:26 AM EDT us Cullen Resendez DO HEMATOLOGY ORDERABLES Final Resu lt [facility] [address] [place] [address] * (ABNORMAL) BASIC METABOLIC PANEL (02/08/2018 6:07 AM EDT) Sodium 140 137 - 145 mmol/L 02/08/2018 7:09 AM EDT [facility] Potassium 4.2 3.5 - 5.1 mmol/L 02/08/2018 7:09 AM EDT [facility] Chloride 99 98 - 107 mmol/L 02/08/2018 7:09 AM EDT [facility] Total CO2 34(H) 22 - 30 mmol/L 02/08/2018 7:09 AM EDT [facility] Anion Gap 7 7 - 16 mmol/L 02/08/2018 7:09 AM EDT [facility] Calcium 9.5 8.4 - 10.3 mg/dL 02/08/2018 7:09 AM EDT [facility] BUN 13 9 - 20 mg/dL 02/08/2018 7:09 AM EDT [facility] Creatinine 0.54(L) 0.66 - 1.25 mg/dL 02/08/2018 7:09 AM EDT [facility] GFR Afr Am 136 >=60 mL/min/1.7 3 m2 02/08/2018 7:09 AM EDT [facility] GFR Non Afr Am 117 >=60 mL/min/1.7 3 m2 02/08/2018 7:09 AM EDT [facility] Comment: This estimated GFR was [...] - 99 mg/dL 02/08/2018 7:09 AM EDT [facility] Blood VENOUS BLOOD / Unknown 02/08/2018 6:07 AM EDT 02/08/2018 6:27 AM EDT Cullen Resendez DO CHEMISTRY ORDERABLES Final Resul t [facility] [address] [facility] [place] [id number] documented in this encounter Visit Diagnoses Diagnosis Heart failure (HCC) Heart failure, unspecified documented in this encounter Care Teams Supervisor Assembly And Packing Relationship Specialty Start Date End Date Lincoln Hillman MD [address] [place] [address] PCP - General Family Medicine 03/25/18 08/26/18 Juan Cantu MD [address] [facility] [place] [address] PCP - General Internal Medicine 08/27/18 03/27/24 Kym Frias, substance addiction coordinator Team 07/25/19 08/24/19 Julee Giang LCSW Care Transition Team 01/06/20 0 documented as of this encounter
--- OUTSIDE RECORDS SUMMARY | 2024-10-25 15:56 | XMS_ITS | Encounter Summary ---
Author Organization [facility] [place] [address] Care Team Providers Care Financial Service Professional Name Role Phone Lincoln Hlilman MD Primary Care Provider [phone] Juan Cantu MD Primary Care Provider [phone] Kym Frias RN Unavailable Unavailable Julee Giang ANIMAL NURSE Unavailable Unavailable Encounter Details Date Type Department Care Team (Late st Contact Info) Description 01/07/2018 Lab Requisition [facility] [address], [place] [id number] Cullen Resendez, [address] [place] [address] Type 2 diabetes mellitus without [...] AM EDT) WBC 13.1(H) 4.5 - 11.0 x10(3)/[facility] 01/07/2018 8:48 AM EDT [facility] RBC 5.24 4.30 - 5.90 x10(6)/[facility] 01/07/2018 8:48 AM EDT [facility] Hgb 14.8 13.2 - 17.3 g/dL 01/07/2018 8:48 AM EDT [facility] Hct 44.6 39.0 - 55.0 % 01/07/2018 8:48 AM EDT [facility] MCV 85.1 81.0 - 101.0 fL 01/07/2018 8:48 AM EDT [facility] MCH 28.2 27.0 - 31.0 pg 01/07/2018 8:48 AM EDT [facility] MCHC 33.2 33.0 - 36.0 g/dL 01/07/2018 8:48 AM EDT [facility] Platelet 262 150 - 400 x10(3)/[facility] 01/07/2018 8:48 AM EDT [facility] MPV 10.6(H) 7.4 - 10.4 fL 01/07/2018 8:48 AM EDT [facility] Neut Percent 70.3 % 01/07/2018 8:48 AM EDT [facility] Lymph Percent 20.8 % 01/07/2018 8:48 AM EDT [facility] [place] Percent 6.2 % 01/07/2018 8:48 AM EDT [facility] Eos Percent 2.5 % 01/07/2018 8:48 AM EDT [facility] RDW 42.1 35.1 - 43.9 fL 01/07/2018 8:48 AM EDT [facility] Neut # 9.2(H) 1.8 - 7.7 x10(3)/[facility] 01/07/2018 8:48 AM EDT [facility] Lymph # 2.7 1.0 - 4.8 x10(3)/[facility] 01/07/2018 8:48 AM EDT [facility] [place] # 0.8 0.0 - 0.8 x10(3)/mcL 01/07/2018 8:48 AM EDT [facility] Eos# 0.3 0.0 - 0.7 x10(3)/[facility] 01/07/2018 8:48 AM EDT [facility] Baso # 0.0 0.0 - 0.2 x10(3)/[facility] 01/07/2018 8:48 AM EDT [facility] Blood VENOUS BLOOD / Unknown 01/07/2018 6:31 AM EDT 01/07/2018 7:25 AM EDT us Cullen Resendez DO HEMATOLOGY ORDERABLES Final Resu lt [facility] [address] [place], [place] [id number] * (ABNORMAL) BASIC METABOLIC PANEL (01/07/2018 6:31 AM EDT) Sodium 137 137 - 145 mmol/L 01/07/2018 9:42 AM EDT [facility] Potassium 4.1 3.5 - 5.1 mmol/L 01/07/2018 9:42 AM EDT [facility] Chloride 100 98 - 107 mmol/L 01/07/2018 9:42 AM EDT [facility] Total CO2 28 22 - 30 mmol/L 01/07/2018 9:42 AM EDT [facility] Anion Gap 9 7 - 16 mmol/L 01/07/2018 9:42 AM EDT [facility] Calcium 9.1 8.4 - 10.3 mg/dL 01/07/2018 9:42 AM EDT [facility] BUN 18 9 - 20 mg/dL 01/07/2018 9:42 AM EDT [facility] Creatinine 0.70 0.66 - 1.25 mg/dL 01/07/2018 9:42 AM EDT [facility] GFR Afr Am 122 >=60 mL/min/1.7 3 m2 01/07/2018 9:42 AM EDT [facility] GFR Non Afr Am 105 >=60 mL/min/1.7 3 m2 01/07/2018 9:42 AM EDT [facility] Comment: This estimated GFR was calculated [...] - 99 mg/dL 01/07/2018 9:42 AM EDT [facility] Blood VENOUS BLOOD / Unknown 01/07/2018 6:31 AM EDT 01/07/2018 7:25 AM EDT us Cullen Resendez DO CHEMISTRY ORDERABLES Final Resul t [facility] [address] [place] [address] documented in this encounter Visit Diagnoses Diagnosis Type 2 diabetes mellitus without complications (HCC) Type II or unspecified type diabetes mellitus without mention of complication, not stated as uncontrolled documented in this encounter Care Teams Financial Service Professional Relationship Specialty Start Date End Date Lincoln Hillman MD [address] [facility] [address] [place] [address] [place] [address] PCP - General Family Medicine 03/25/18 08/26/18 Juan Cantu MD [address] [place] [address] [place] [address] PCP - General Internal Medicine 08/27/18 03/27/24 Kym Frias RNemployment service specialist Team 07/25/19 08/24/19 Julee Giang LCSW Care Transition Team 01/06/20 0 documented as of this encounter
--- OUTSIDE RECORDS SUMMARY | 2024-10-25 15:56 | XMS_ITS | Clinical Summary ---
Author Organization [facility] Address [address] [facility] [address] [place] [address] Phone Care Team Providers Care Volleyball Player Name Role Phone Isiah Cline MD Unavailable [phone] Conditions or Problems Problem Name Problem Code Onset Date Status Entry Date Provider Comment Standard Description Annotate Edema, BLE 756170445 (SNOMED CT) 07/18 Active 07/18 Swetha Raul Edema of lower extremity Cellulitis of RLE 249191521 (SNOMED CT) 07/18 Active 07/18 Swetha Raul Cellulitis of lower limb Cellulitis of LLE 432975866 (SNOMED CT) 07/18 Active 07/18 Swetha Raul Cellulitis of lower limb Infection, local skin/subcutan eous tissue 686900645 (SNOMED CT) 07/18 Active 07/18 Swetha Raul Localized infection of skin AND/OR subcutaneous tissue Citrobacter infection B96.89 (ICD-10-CM ) 07/18 Active 07/18 Swetha Raul Other specified bacterial agents as the cause of diseases classified elsewhere Proteus infection 853832762 (SNOMED CT) 07/18 Active 07/18 Swetha Raul Proteus infection DM II with diabetic PVD 518260559 (SNOMED CT) 07/18 Active 07/18 Swetha Raul Peripheral vascular disease 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) 286347624 (SNOMED CT) 07/18 Active 07/18 Swetha Raul Peripheral vascular disease Paroxysmal atrial fib 629254793 (SNOMED CT) 07/18 Active 07/18 Swetha Raul Paroxysmal atrial flutter Obesity, class 3, BMI 40 or greater 24609129 ([facility] CT) 07/18 Active 07/18 Swetha Carter Coronary arteriosclerosis DM II with diabetic polyneuropath y 665415279 ([facility] CT) 07/18 Active 07/18 Swetha Carter Neuropathy Hypertensive heart and CKD, benign, 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 trazodone 94470119772 QIE qieuser TORSEMIDE 20 MG TABS Take 1 tablet by mouth Daily. torsemide 39393427234 QIE qieuser TIZANIDINE HCL 4 MG TABS Take 1 tablet by mouth Every 6 (Six) Hours As Needed for Muscle Spasms. tizanidine 33310533679 QIE q[facility]user SPIRONOLACTONE 50 MG TABS Take 1 tablet by mouth 2 (Two) Times a Day. spironolactone 87410046593 QIE qieuser rivaroxaban (XARELTO) 20 MG tablet Take 1 tablet by mouth Daily. XARELTO QIE qieuser PEG 3350 17 GM PACK Take 17 g by mouth Daily As Needed (Use if senna-docusate is ineffective). polyethylene glycol 3350 85123018879 QIE qieuser PAROXETINE HCL 40 MG TABS Take 0.5 tablets by mouth Every Morning. paroxetine hcl 67447964236 QIE qieuser PANTOPRAZOLE SODIUM 40 MG TBEC Take 1 tablet by mouth Every Night. pantoprazole 00947140224 QIE qieuser METOPROLOL SUCCINATE ER 50 MG AM10C-SVD Take 3 tablets by mouth Daily. metoprolol succinate 62680973833 QIE qieuser METFORMIN HCL 500 MG TABS Take 1 tablet by mouth 2 (Two) Times a Day With Meals. metformin 58621784668 QIE qieuser MELATONIN 5 MG TABS Take 1 tablet by mouth At Night As Needed (insomnia). melatonin 84268215148 QIE [facility] IRBESARTAN 75 MG TABS Take 1 tablet by mouth Daily. TAKE 0.5 TABLET ONCE DAILY. irbesartan 12167723644 QIE [facility] Insulin Pen Needle 30G X 8 MM misc Use 1 Needle 4 (Four) Times a Day for 30 days. Insulin Pen Needle 30G X 8 MM misc QIE qieuser INSULIN LISPRO 100 UNIT/ML SOLN Inject 2-9 Units under the skin into the appropriate area as directed 3 (Three) Times a Day With Meals. insulin lispro 42180008876 QIE qieuser HYDROXYZINE HCL 25 MG TABS Take 1 tablet by mouth 3 (Three) Times a Day As Needed for Anxiety. hydroxyzine hcl 26707564664 QIE qieuser glucose monitor monitoring kit Use 1 each 4 (Four) Times a Day Before Meals & at Bedtime. glucose monitor monitoring kit QIE qieuser glucose blood test strip Use as instructed glucose blood test strip QIE qieuser GLIPIZIDE ER 10 MG OQ52A-PEL Take 1 tablet by mouth 2 (Two) Times a Day. glipizide 43183504010 QIE qieuser GABAPENTIN 400 MG CAPS Take 1 capsule by mouth Every 8 (Eight) Hours. gabapentin 77240028194 QIE qieuser empagliflozin (JARDIANCE) 10 MG tablet tablet Take 1 tablet by mouth Daily. JARDIANCE QIE qieuser DOXYCYCLINE MONOHYDRATE 100 MG CAPS Take 1 capsule by mouth Every 12 (Twelve) Hours for 8 doses. Indications: Infection of the Skin and/or Soft Tissue doxycycline monohydrate 96516484630 QIE qieuser DICLOFENAC SODIUM 1 % GEL Apply 2 g topically to the appropriate area as directed 4 (Four) Times a Day. diclofenac sodium 34106045364 QIE qieuser CLOPIDOGREL BISULFATE 75 MG TABS Take 1 tablet by mouth Daily. clopidogrel 92888033049 QIE qieuser CEPHALEXIN 500 MG CAPS Take 1 capsule by mouth Every 6 (Six) Hours for 15 doses. Indications: Infection of the Skin and/or Soft Tissue cephalexin 64498199410 QIE qieuser BENZONATATE 200 MG CAPS Take 1 capsule by mouth 3 (Three) Times a Day As Needed for Cough. benzonatate 35560625261 QIE qieuser ATORVASTATIN CALCIUM 10 MG TABS Take 1 tablet by mouth Every Night. atorvastatin 17866948054 QIE q[facility]user ASPIRIN LOW DOSE 81 MG TBEC Take 1 tablet by mouth Daily. aspirin 06685012937 QIE [facility] Medications Administered No information available. [...]
--- OUTSIDE RECORDS SUMMARY | 2024-10-25 15:56 | XMS_ITS | Encounter Summary ---
Author Organization [facility] [place] [address] Care Team Providers Care Plodder Operator Name Role Phone Lincoln Hillman MD Primary Care Provider [phone] Juan Cantu MD Primary Care Provider [phone] Kym Frias RN Unavailable Unavailable Julee Giang COLORER HIDES [employer] SKINS Unavailable Unavailable Encounter Details Date Type Department Care Team (Late st Contact Info) Description 12/28/2017 Lab Requisition [facility] [address] [place] [address] Cullen Resendez, [address] [place] [address] Atrial fibrillation (HCC) Social History Tobacco [...] - 11.0 x10(3)/mcL 12/28/2017 7:46 AM EDT [facility] RBC 5.17 4.30 - 5.90 x10(6)/mcL 12/28/2017 7:46 AM EDT [facility] Hgb 14.3 13.2 - 17.3 g/dL 12/28/2017 7:46 AM EDT [facility] Hct 44.3 39.0 - 55.0 % 12/28/2017 7:46 AM EDT [facility] MCV 85.7 81.0 - 101.0 fL 12/28/2017 7:46 AM EDT [facility] MCH 27.7 27.0 - 31.0 pg 12/28/2017 7:46 AM EDT [facility] MCHC 32.3(L) 33.0 - 36.0 g/dL 12/28/2017 7:46 AM EDT [facility] Platelet 245 150 - 400 x10(3)/mcL 12/28/2017 7:46 AM EDT [facility] MPV 9.8 7.4 - 10.4 fL 12/28/2017 7:46 AM EDT [facility] Neut Percent 58.2 % 12/28/2017 7:46 AM EDT [facility] Lymph Percent 31.9 % 12/28/2017 7:46 AM EDT [facility] Titus Percent 6.3 % 12/28/2017 7:46 AM EDT [facility] Eos Percent 2.9 % 12/28/2017 7:46 AM EDT [facility] Baso Percent 0.4 % 12/28/2017 7:46 AM EDT [facility] RDW 41.3 35.1 - 43.9 fL 12/28/2017 7:46 AM EDT [facility] NRBC Auto % 0.0 <=1.0 % 12/28/2017 7:46 AM EDT [facility] Imm Gran% 0.3 % 12/28/2017 7:46 AM EDT [facility] IMMGRAN# 0.0 <=0.0 x10(3)/mcL 12/28/2017 7:46 AM EDT [facility] Neut # 5.4 1.8 - 7.7 x10(3)/[facility] 12/28/2017 7:46 AM EDT [facility] Lymph # 3.0 1.0 - 4.8 x10(3)/[facility] 12/28/2017 7:46 AM EDT [facility] Titus # 0.6 0.0 - 0.8 x10(3)/[facility] 12/28/2017 7:46 AM EDT [facility] Eos# 0.3 0.0 - 0.7 x10(3)/[facility] 12/28/2017 7:46 AM EDT [facility] Baso # 0.0 0.0 - 0.2 x10(3)/[facility] 12/28/2017 7:46 AM EDT [facility] Blood VENOUS BLOOD / Unknown 12/28/2017 6:05 AM EDT 12/28/2017 7:05 AM EDT Cullen Resendez DO HEMATOLOGY ORDERABLES Final Resu lt [facility] [address] [place] [address] [id number] * (ABNORMAL) BASIC METABOLIC PANEL (12/28/2017 6:05 AM EDT) Sodium 138 137 - 145 mmol/L 12/28/2017 7:57 AM EDT [facility] Potassium 3.8 3.5 - 5.1 mmol/L 12/28/2017 7:57 AM EDT [facility] Chloride 100 98 - 107 mmol/L 12/28/2017 7:57 AM EDT [facility] Total CO2 29 22 - 30 mmol/L 12/28/2017 7:57 AM EDT [facility] Anion Gap 9 7 - 16 mmol/L 12/28/2017 7:57 AM EDT [facility] Calcium 9.0 8.4 - 10.3 mg/dL 12/28/2017 7:57 AM EDT [facility] BUN 17 9 - 20 mg/dL 12/28/2017 7:57 AM EDT [facility] Creatinine 0.81 0.66 - 1.25 mg/dL 12/28/2017 7:57 AM EDT [facility] GFR Afr Am 115 >=60 mL/min/1.7 3 m2 12/28/2017 7:57 AM EDT [facility] GFR Non Afr Am 99 >=60 mL/min/1.7 3 m2 12/28/2017 7:57 AM EDT [facility] Comment: This estimated GFR was calculated [...] - 99 mg/dL 12/28/2017 7:57 AM EDT [facility] Blood VENOUS BLOOD / Unknown 12/28/2017 6:05 AM EDT 12/28/2017 7:24 AM EDT Cullen Resendez DO CHEMISTRY ORDERABLES Final Resul t [facility] [address] [facility] [place] [id number] documented in this encounter Visit Diagnoses Diagnosis Atrial fibrillation (HCC) Atrial fibrillation documented in this encounter Care Teams Plodder Operator Relationship Specialty Start Date End Date Lincoln Hillman MD [address] [facility] [address] [place] [address] PCP - General Family Medicine 03/25/18 08/26/18 Juan Cantu MD [address] [place] [address] [place] [address] PCP - General Internal Medicine 08/27/18 03/27/24 Frias, Kym A, pantograph operator Team 07/25/19 08/24/19 Julee Giang LCSW Care Transition Team 01/06/20 0 documented as of this encounter
--- OUTSIDE RECORDS SUMMARY | 2024-10-25 15:56 | XMS_ITS | Encounter Summary ---
Author Organization [facility] [place] [address] Care Team Providers Care Tube Building Machine Operator Name Role Phone Lincoln Hillman MD Primary Care Provider [phone] Juan Cantu MD Primary Care Provider [phone] Kym Frias RN Unavailable Unavailable Julee Giang CAST IRON DRAIN PIPE LAYER Unavailable Unavailable Encounter Details Date Type Department Care Team (Late st Contact Info) Description 01/11/2018 Lab Requisition [facility] [address] [place] [address] Cullen Resendez, [address] [place] [address] [id number] Type 2 diabetes mellitus without complications (HCC) [...] CBC WITH DIFF (01/11/2018 5:31 AM EDT) [facility] WBC 10.9 4.5 - 11.0 x10(3)/mcL 01/11/2018 6:16 AM EDT [facility] RBC 5.34 4.30 - 5.90 x10(6)/mcL 01/11/2018 6:16 AM EDT [facility] Hgb 14.7 13.2 - 17.3 g/dL 01/11/2018 6:16 AM EDT [facility] Hct 45.9 39.0 - 55.0 % 01/11/2018 6:16 AM EDT [facility] MCV 86.0 81.0 - 101.0 fL 01/11/2018 6:16 AM EDT [facility] MCH 27.5 27.0 - 31.0 pg 01/11/2018 6:16 AM EDT [facility] MCHC 32.0(L) 33.0 - 36.0 g/dL 01/11/2018 6:16 AM EDT [facility] Platelet 284 150 - 400 x10(3)/mcL 01/11/2018 6:16 AM EDT [facility] MPV 9.7 7.4 - 10.4 fL 01/11/2018 6:16 AM EDT [facility] Neut Percent 61.8 % 01/11/2018 6:16 AM EDT [facility] Lymph Percent 28.6 % 01/11/2018 6:16 AM EDT [facility] Chambers Percent 6.2 % 01/11/2018 6:16 AM EDT [facility] Eos Percent 2.4 % 01/11/2018 6:16 AM EDT [facility] Baso Percent 0.5 % 01/11/2018 6:16 AM EDT [facility] RDW 40.7 35.1 - 43.9 fL 01/11/2018 6:16 AM EDT [facility] NRBC Auto % 0.0 <=1.0 % 01/11/2018 6:16 AM EDT [facility] Imm Gran% 0.5 % 01/11/2018 6:16 AM EDT [facility] IMMGRAN# 0.1(H) <=0.0 x10(3)/[facility] 01/11/2018 6:16 AM EDT [facility] Neut # 6.7 1.8 - 7.7 x10(3)/[facility] 01/11/2018 6:16 AM EDT [facility] Lymph # 3.1 1.0 - 4.8 x10(3)/[facility] 01/11/2018 6:16 AM EDT [facility] Chambers # 0.7 0.0 - 0.8 x10(3)/[facility] 01/11/2018 6:16 AM EDT [facility] Eos# 0.3 0.0 - 0.7 x10(3)/[facility] 01/11/2018 6:16 AM EDT [facility] Baso # 0.1 0.0 - 0.2 x10(3)/[facility] 01/11/2018 6:16 AM EDT [facility] Blood VENOUS BLOOD / Unknown 01/11/2018 5:31 AM EDT 01/11/2018 5:56 AM EDT us Cullen Resendez DO HEMATOLOGY ORDERABLES Final Resu lt [facility] [address] [place] [address] [phone] * (ABNORMAL) BASIC METABOLIC PANEL (01/11/2018 5:31 AM EDT) Sodium 138 137 - 145 mmol/L 01/11/2018 6:48 AM EDT [facility] Potassium 4.0 3.5 - 5.1 mmol/L 01/11/2018 6:48 AM EDT [facility] Chloride 100 98 - 107 mmol/L 01/11/2018 6:48 AM EDT [facility] Total CO2 34(H) 22 - 30 mmol/L 01/11/2018 6:48 AM EDT [facility] Anion Gap 4(L) 7 - 16 mmol/L 01/11/2018 6:48 AM EDT [facility] Calcium 8.9 8.4 - 10.3 mg/dL 01/11/2018 6:48 AM EDT [facility] BUN 20 9 - 20 mg/dL 01/11/2018 6:48 AM EDT [facility] Creatinine 0.82 0.66 - 1.25 mg/dL 01/11/2018 6:48 AM EDT [facility] GFR Afr Am 114 >=60 mL/min/1.7 3 m2 01/11/2018 6:48 AM EDT [facility] GFR Non Afr Am 99 >=60 mL/min/1.7 3 m2 01/11/2018 6:48 AM EDT [facility] Comment: This estimated GFR [...] - 99 mg/dL 01/11/2018 6:48 AM EDT [facility] Blood VENOUS BLOOD / Unknown 01/11/2018 5:31 AM EDT 01/11/2018 5:57 AM EDT Cullen Resendez DO CHEMISTRY ORDERABLES Final Resul t [facility] [address] [facility] [place] [id number] documented in this encounter Visit Diagnoses Diagnosis Type 2 diabetes mellitus without complications (HCC) Type II or unspecified type diabetes mellitus without mention of complication, not stated as uncontrolled documented in this encounter Care Teams Tube Building Machine Operator Relationship Specialty Start Date End Date Lincoln Hillman MD [address] [place] [address] PCP - General Family Medicine 03/25/18 08/26/18 Juan Cantu MD [address] [place], [place] [address] [address] PCP - General Internal Medicine 08/27/18 03/27/24 Kym Frias RNjumpbasting canvas baster Team 07/25/19 08/24/19 Julee Giang LCSW Care Transition Team 01/06/20 0 documented as of this encounter
--- OUTSIDE RECORDS SUMMARY | 2024-10-25 15:56 | XMS_ITS | Encounter Summary ---
Author Organization [facility] [place] [address] Care Team Providers Care Pedicurist Name Role Phone Lincoln Hillman MD Primary Care Provider [phone] Juan Cantu MD Primary Care Provider [phone] Kym Frias RN Unavailable Unavailable Julee Giang BOTTOM SAW OPERATOR Unavailable Unavailable Encounter Details Date Type Department Care Team (Late st Contact Info) Description 02/11/2018 Lab Requisition [facility] [address] [facility] [place] [id number] Cullen Resendez, [address] [place] [address] Cardiac arrhythmia Social History Tobacco [...] 182 <=200 mg/dL 02/11/2018 8:58 AM EDT [facility] Comment: < 200 Desirable 200 - 239 Borderline High >= 240 High Triglyceride 213(H) <=150 mg/dL 02/11/2018 8:58 AM EDT [facility] HDL 36(L) 40 - 60 mg/dL 02/11/2018 8:58 AM EDT [facility] LDL Calculated 103 mg/dL 02/11/2018 8:58 AM EDT [facility] Comment: Desireable LDL Cholesterol: <130 mg/dL Borderline High Risk LDL Chol: 130-159 mg/dL High Risk LDL Cholesterol: >=160 mg/dL Coronary Risk Factor 19.8 02/11/2018 8:58 AM EDT [facility] Comment: Coronary Risk Factor......Male....Female 1/2 Average...............29.2....30.6 Average...................20.1....22.5 2X Average................10.5....14.2 3X Average................ 4.3.... 9.1 Blood VENOUS BLOOD / Unknown 02/11/2018 7:23 AM EDT 02/11/2018 7:36 AM EDT Cullen Resendez DO CHEMISTRY ORDERABLES Final Resul t Performing Organization Address City/State/[facility] Co de Phone Number [facility] [address] [place] [address] documented in this encounter Visit Diagnoses Diagnosis Cardiac arrhythmia Cardiac dysrhythmia, unspecified documented in this encounter Care Teams Pedicurist Relationship Specialty Start Date End Date Lincoln Hillman MD [address] [place] [address] PCP - General Family Medicine 03/25/18 08/26/18 Juan Cantu MD [address] [place] [address] PCP - General Internal Medicine 08/27/18 03/27/24 Kym Frias RNglove turner and former Team 07/25/19 08/24/19 Julee Giang LCSW Care Transition Team 01/06/20 0 documented as of this encounter
[2024-10-25] MEDS: ONDANSETRON 4MG/2ML VIAL 4 MG IV (15:57)
--- OUTSIDE RECORDS SUMMARY | 2024-10-25 15:57 | XMS_ITS | Data Portability ---
Author Organization [employer], [employer] Address [address] [facility] [address] [place] [address] Assessment Encounter Date Assessment Date Assessment LastModified [...] - 130 mg/dL 04/23 7:37 PM EST [facility] [facility] Not Available Not Available 09/01/2024 [...] - 130 mg/dL 04/23 4:47 PM EST [facility] Not Available Not Available 09/01/2024 [...] - 130 mg/dL 04/23 2:20 PM EST [facility] [facility] Not Available Not Available 09/01/2024 [...] mg/dL 04/23 7:[address] [employer] [facility] Not Available [...] - 99 mg/dL 04/23 6:03 AM EST [facility] Not Available Not Available 09/01/2024 16:25:14 04/23/19 25 04/23/2024 Basic metab olic 1999 panel - Serum or Plasm a urea nitrogen [mass/volume ] in serum or plasma 26 mg/dL low: 8mg/dL high: 23mg/d L high BUN 26 (H) 8 - 23 mg/dL 04/23 6:03 AM EST [facility] Not Available Not Available 09/01/2024 16:25:14 04/23/19 25 04/23/2024 Basic metab olic 1999 panel - Serum or Plasm a creatinine [mass/volume ] in serum or plasma 1.06 mg/dL low: 0.76mg /dLhig h: 1.27mg /dL Creat inine 1.06 0.76 - 1.27 mg/dL 04/23 6:03 AM EST [facility] [...] 5.2 mmol/ L 04/23 6:03 AM EST [facility]IGN[facility] AT[facility] Not Available Not Available 09/01/2024 16:25:14 04/23/19 25 04/23/2024 Basic metab olic 1999 panel - Serum or Plasm a chloride [moles/volum e] in serum or plasma 101 mmol/ L low: 98mmol /Lhigh : 107mmo l/L Chlor chava 101 98 - 107 mmol/ L 04/23 6:03 AM EST [facility] [employer] [facility] ATORY Not Available Not Available 09/01/2024 16:25:14 04/23/19 25 04/23/2024 Basic metab olic 1999 panel - Serum or Plasm a carbon dioxide, total [moles/volum e] in serum or plasma 33 mmol/ L low: 22mmol /Lhigh : 29mmol /L high CO2 33.0 (H) 22.0 - 29.0 mmol/ L 04/23 6:03 AM [facility] [employer] [facility] ATORY Not Available Not Available 09/01/2024 16:25:14 04/23/19 25 04/23/2024 Basic metab olic 1999 panel - Serum or Plasm a calcium [moles/volum e] in specimen 9.3 mg/dL low: 8.6mg/ dLhigh : 10.5mg /dL Calci um 9.3 8.6 - 10.5 mg/dL 04/23 6:03 AM EST [facility]IGNON [facility] AT[facility] Not Available Not Available 09/01/2024 16:25:14 04/23/19 25 04/23/2024 Basic metab olic 1999 panel - Serum or Plasm a urea nitrogen/cre atinine [mass ratio] in serum or plasma 24.5 low: 7high: 25 BUN/C reati nine Ratio 24.5 7.0 - 25.0 04/23 6:03 AM [facility] ATORY Not Available Not Available 09/01/2024 16:25:14 04/23/19 25 04/23/2024 Basic metab olic 2000 panel - Serum or Plasm a anion gap in serum or plasma by calculated.3 ions 9 mmol/ L low: 5mmol/ Lhigh: 15mmol /L Anion Gap 9.0 5.0 - 15.0 mmol/ L 04/23 6:03 AM [facility] ATORY Not Available Not Available 09/01/2024 16:25:14 04/23/19 25 04/23/2024 Basic metab olic 2000 panel - Serum or Plasm a glomerular filtration rate [volume rate/area] in serum, plasma or blood by creatinine-b ased formula (CKD-epi 2020)/1.73 sq M 79.4 mL/mi n/1.7 3 low: 60mL/m in/1.7 3 eGFR 79.4 >60.0 mL/mi n/1.7 3 04/23 6:03 AM [facility] ATORY Not Available Not Available 09/01/2024 16:25:14 [...] 145 mmol/ L 04/24 8:43 AM EST [employer]T [facility] LABOR ATORY Not Available Not Available 09/01/2024 16:25:14 04/24/19 25 04/24/2024 Basic metab olic 1999 panel - Serum or Plasm a potassium [moles/volum e] in serum or plasma 4.3 mmol/ L low: 3.5mmo l/Lhig h: 5.2mmo l/L Potas sium 4.3 3.5 - 5.2 mmol/ L 04/24 8:43 AM EST [employer] Look MediaT [facility] LABOR ATORY Not Available Not Available 09/01/2024 16:25:14 04/24/19 25 04/24/2024 Basic metab olic 1999 panel - Serum or Plasm a chloride [moles/volum e] in serum or plasma 97 mmol/ L low: 98mmol /Lhigh : 107mmo l/L low Chlor chava 97 (L) 98 - 107 mmol/ L 04/24 8:43 AM EST [employer] [facility] AT[facility] Not Available Not Available 09/01/2024 16:25:14 04/24/19 25 04/24/2024 Basic metab olic 1999 panel - Serum or Plasm a carbon dioxide, total [moles/volum e] in serum or plasma 34 mmol/ L low: 22mmol /Lhigh : 29mmol /L high CO2 34.0 (H) 22.0 - 29.0 mmol/ L 04/24 8:43 AM EST [employer] Look [employer]T [facility] LAB[facility] ATORY Not Available Not Available 09/01/2024 16:25:14 04/24/19 25 04/24/2024 Basic metab olic 2000 panel - Serum or Plasm a calcium [moles/volum e] in specimen 9.3 mg/dL low: 8.6mg/ dLhigh : 10.5mg /dL Calci um 9.3 8.6 - 10.5 mg/dL 04/24 8:43 AM EST [employer] ATORY Not Available Not Available 09/01/2024 16:25:14 04/24/19 25 04/24/2024 Basic metab olic 2000 panel - Serum or Plasm a urea nitrogen/cre atinine [mass ratio] in serum or plasma 24.6 low: 7high: 25 BUN/C reati nine Ratio 24.6 7.0 - 25.0 04/24 8:43 AM [facility] ATORY Not Available Not Available 09/01/2024 16:25:14 04/24/19 25 04/24/2024 Basic metab olic 2000 panel - Serum or Plasm a anion gap in serum or plasma by calculated.3 ions 8 mmol/ L low: 5mmol/ Lhigh: 15mmol /L Anion Gap 8.0 5.0 - 15.0 mmol/ L 04/24 8:43 AM [facility] ATORY Not Available Not Available 09/01/2024 16:25:14 04/24/19 25 04/24/2024 Basic metab olic 2000 panel - Serum or Plasm a glomerular filtration rate [volume rate/area] in serum, plasma or blood by creatinine-b ased formula (CKD-epi 2020)/1.73 sq M 72.7 mL/mi n/1.7 3 low: 60mL/m in/1.7 3 eGFR 72.7 >60.0 mL/mi n/1.7 3 04/24 8:43 AM [facility] ATORY Not Available Not Available 09/01/2024 16:25:14 [...] - 130 mg/dL 04/25 8:38 PM EST [facility] Not Available Not Available [...] - 130 mg/dL 04/25 4:41 PM EST [facility] H [employer] Not Available Not Available 09/01/2024 [...] - 130 mg/dL 04/25 11:28 AM EST [facility] H [employer] Not Available Not Available 09/01/2024 [...] 5.2 mmol/ L 04/25 5:27 AM EST [facility] [employer]T [facility] LAB[facility] ATORY Not Available Not Available 09/01/2024 16:25:14 04/25/19 25 04/25/2024 Basic metab olic 1999 panel - Serum or Plasm a chloride [moles/volum e] in serum or plasma 96 mmol/ L low: 98mmol /Lhigh : 107mmo l/L low Chlor chava 96 (L) 98 - 107 mmol/ L 04/25 5:27 AM EST [employer] MediaT H [employer] LABOR ATORY Not Available Not Available 09/01/2024 16:25:14 04/25/19 25 04/25/2024 Basic metab olic 1999 panel - Serum or Plasm a carbon dioxide, total [moles/volum e] in serum or plasma 35 mmol/ L low: 22mmol /Lhigh : 29mmol /L high CO2 35.0 (H) 22.0 - 29.0 mmol/ L 04/25 5:27 AM EST First Look MediaT [employer] ATORY Not Available Not Available 09/01/2024 16:25:14 04/25/19 25 04/25/2024 Basic metab olic 1999 panel - Serum or Plasm a calcium [moles/volum e] in specimen 9 mg/dL low: 8.6mg/ dLhigh : 10.5mg /dL Calci um 9.0 8.6 - 10.5 mg/dL 04/25 5:27 AM EST [facility] A[facility] TechnologiesT [facility] LAB[facility] ATORY Not Available Not Available 09/01/2024 16:25:14 04/25/19 25 04/25/2024 Basic metab olic 2000 panel - Serum or Plasm a urea nitrogen/cre atinine [mass ratio] in serum or plasma 26 low: 7high: 25 high BUN/C reati nine Ratio 26.0 (H) 7.0 - 25.0 04/25 5:27 AM EST [employer] ATORY Not Available Not Available 09/01/2024 16:25:14 04/25/19 25 04/25/2024 Basic metab olic 2000 panel - Serum or Plasm a anion gap in serum or plasma by calculated.3 ions 6 mmol/ L low: 5mmol/ Lhigh: 15mmol /L Anion Gap 6.0 5.0 - 15.0 mmol/ L 04/25 5:27 AM EST [employer] [facility] [employer] ATORY Not Available Not Available 09/01/2024 16:25:14 04/25/19 25 04/25/2024 Basic metab olic 2000 panel - Serum or Plasm a glomerular filtration rate [volume rate/area] in serum, plasma or blood by creatinine-b ased formula (CKD-epi 2020)/1.73 sq M 66.4 mL/mi n/1.7 3 low: 60mL/m in/1.7 3 eGFR 66.4 >60.0 mL/mi n/1.7 3 04/25 5:27 AM EST [facility] ATORY Not Available Not Available 09/01/2024 16:25:14 [...] - 130 mg/dL 04/26 7:07 AM EST [facility] A[facility] TechnologiesT H [facility] [place] [facility] AT[facility] Not Available Not Available [...] 6:[address] [facility] [employer] [place] [facility] Not Available Not Available 09/01/2024 16:25:14 04/26/19 25 04/26/2024 Basic metab olic 2000 panel - Serum or Plasm a urea nitrogen [mass/volume ] in serum or plasma 35 mg/dL low: 8mg/dL high: 23mg/d L high BUN 35 (H) 8 - 23 mg/dL 04/26 6:48 AM EST [facility] TechnologiesT [facility] [place] [facility] Not Available Not Available 09/01/2024 16:25:14 04/26/19 25 04/26/2024 Basic metab olic 1999 panel - Serum or Plasm a creatinine [mass/volume ] in serum or plasma 1.13 mg/dL low: 0.76mg /dLhig h: 1.27mg /dL Creat inine 1.13 0.76 - 1.27 mg/dL 04/26 6:48 AM EST [facility]TI [facility] A[facility] TechnologiesT H [place] [facility] Not Available Not Available 09/01/2024 16:25:14 04/26/19 25 04/26/2024 Basic metab olic 1999 panel - Serum or Plasm a sodium [moles/volum e] in serum or plasma 140 mmol/ L low: 136mmo l/Lhig h: 145mmo l/L Sodiu m 140 136 - 145 mmol/ L 04/26 6:48 AM EST [employer] [facility]T H [facility] [place] [facility] AT[facility] Not Available Not Available 09/01/2024 16:25:14 04/26/19 25 04/26/2024 Basic metab olic 1999 panel - Serum or Plasm a potassium [moles/volum e] in serum or plasma 4.3 mmol/ L low: 3.5mmo l/Lhig h: 5.2mmo l/L Potas sium 4.3 3.5 - 5.2 mmol/ L 04/26 6:48 AM EST [facility] [employer]T H [facility] [place] [facility] AT[facility] Not Available Not Available 09/01/2024 16:25:14 04/26/19 25 04/26/2024 Basic metab olic 1999 panel - Serum or Plasm a chloride [moles/volum e] in serum or plasma 98 mmol/ L low: 98mmol /Lhigh : 107mmo l/L Chlor chava 98 98 - 107 mmol/ L 04/26 6:[address] [employer] [facility] [place] [facility] Not Available Not Available 09/01/2024 16:25:14 04/26/19 25 04/26/2024 Basic metab olic 1999 panel - Serum or Plasm a carbon dioxide, total [moles/volum e] in serum or plasma 34 mmol/ L low: 22mmol /Lhigh : 29mmol /L high CO2 34.0 (H) 22.0 - 29.0 mmol/ L 04/26 6:48 AM [facility] ATORY Not Available Not Available 09/01/2024 16:25:14 04/26/19 25 04/26/2024 Basic metab olic 1999 panel - Serum or Plasm a calcium [moles/volum e] in specimen 9.4 mg/dL low: 8.6mg/ dLhigh : 10.5mg /dL Calci um 9.4 8.6 - 10.5 mg/dL 04/26 6:48 AM [facility] ATORY Not Available Not Available 09/01/2024 16:25:14 04/26/19 25 04/26/2024 Basic metab olic 1999 panel - Serum or Plasm a urea nitrogen/cre atinine [mass ratio] in serum or plasma 31 low: 7high: 25 high BUN/C reati nine Ratio 31.0 (H) 7.0 - 25.0 04/26 6:48 AM [facility] ATORY Not Available Not Available 09/01/2024 16:25:14 04/26/19 25 04/26/2024 Basic metab olic 1999 panel - Serum or Plasm a anion gap in serum or plasma by calculated.3 ions 8 mmol/ L low: 5mmol/ Lhigh: 15mmol /L Anion Gap 8.0 5.0 - 15.0 mmol/ L 04/26 6:48 AM [facility] ATORY Not Available Not Available 09/01/2024 16:25:14 [...] - 130 mg/dL 04/27 9:39 PM EST [employer] [facility] AT[facility] Not Available Not Available 09/01/2024 [...] - 130 mg/dL 04/27 4:37 PM EST [employer] [facility] AT[facility] Not Available Not Available 09/01/2024 [...] - 130 mg/dL 04/27 10:54 AM EST [facility] ATORY Not Available Not Available 09/01/2024 16:25:15 [...] - 130 mg/dL 04/28 5:22 PM EST [address]TI [facility] A[facility] TechnologiesT H [facility] [place] [facility] AT[facility] Not Available Not Available [...] - 130 mg/dL 04/29 8:16 PM EST [facility] [employer]T H [facility] [place] [facility] AT[facility] Not Available Not Available [...] - 130 mg/dL 04/29 11:04 AM EST [employer] [facility] [employer] LAB[facility] ATORY Not Available Not Available 09/01/2024 [...] - 130 mg/dL 04/29 7:59 AM EST [employer]T [facility] [employer] LABOR ATORY Not Available Not Available 09/01/2024 [...] - 130 mg/dL 04/30 7:48 PM EST [employer] [facility] AT[facility] Not Available Not Available 09/01/2024 [...] 5.2 mmol/ L 04/30 5:51 PM EST [employer] [facility] [employer] LAB[facility] ATORY Not Available Not Available 09/01/2024 [...] - 130 mg/dL 04/30 4:29 PM EST [employer] LAB[facility] AT[facility] Not Available Not Available 09/01/2024 [...] - 130 mg/dL 04/30 11:09 AM EST [employer] [facility] AT[facility] Not Available Not Available 09/01/2024 [...] - 10.80 10*3/ mm3 04/30 9:26 AM [facility] ATORY Not Available Not Available 09/01/2024 16:25:15 04/30/19 25 04/30/2024 CBC W Diffe renti al panel , metho d unspe cifie d - Blood erythrocytes [#/volume] in blood by automated count 5.6 10*6/ mm3 low: 4.1410 *6/mm3 high: 5.810* 6/mm3 RBC 5.60 4.14 - 5.80 10*6/ mm3 04/30 9:26 AM [facility] ATORY Not Available Not Available 09/01/2024 16:25:15 04/30/19 25 04/30/2024 CBC W Diffe renti al panel , metho d unspe cifie d - Blood hemoglobin [mass/volume ] in blood 13.4 g/dL low: 13g/dL high: 17.7g/ dL Hemog lobin 13.4 13.0 - 17.7 g/dL 04/30 9:26 AM [employer] LABOR ATORY Not Available Not Available 09/01/2024 16:25:15 04/30/1904/30/2024 CBC W Diffe renti al panel , metho d unspe cifie d - Blood hematocrit [volume fraction] of blood by automated count 44.1 % low: 37.5%h igh: 51% Hemat ocrit 44.1 37.5 - 51.0 % 04/30 9:26 AM [employer] LAB[facility] ATORY Not Available Not Available 09/01/2024 16:25:15 04/30/19 25 04/30/2024 CBC W Diffe renti al panel , metho d unspe cifie d - Blood MCV [entitic mean volume] in red blood cells by automated count 78.8 fL low: 79fLhi gh: 97fL low MCV 78.8 (L) 79.0 - 97.0 fL 04/30 9:26 AM [employer] LAB[facility] ATORY Not Available Not Available 09/01/2024 16:25:15 04/30/19 25 04/30/2024 CBC W Diffe renti al panel , metho d unspe cifie d - Blood MCH [entitic mass] by automated count 23.9 pg low: 26.6pg high: 33pg low MCH 23.9 (L) 26.6 - 33.0 pg 04/30 9:26 AM [facility] [employer] LAB[facility] ATORY Not Available Not Available 09/01/2024 16:25:15 04/30/19 25 04/30/2024 CBC W Diffe renti al panel , metho d unspe cifie d - Blood MCHC [entitic mass/volume] in red blood cells by automated count 30.4 g/dL low: 31.5g/ dLhigh : 35.7g/ dL low MCHC 30.4 (L) 31.5 - 35.7 g/dL 04/30 9:26 AM [facility] [employer] LAB[facility] ATORY Not Available Not Available 09/01/2024 16:25:15 04/30/19 25 04/30/2024 CBC W Diffe renti al panel , metho d unspe cifie d - Blood erythrocyte [distwidth] in red blood cells by automated count 19.9 % low: 12.3%h igh: 15.4% high RDW 19.9 (H) 12.3 - 15.4 % 04/30 9:26 AM [facility] [employer] LABOR ATORY Not Available Not Available 09/01/2024 16:25:15 04/30/19 25 04/30/2024 CBC W Diffe renti al panel , metho d unspe cifie d - Blood RDW-SD 54.4 fL low: 37fLhi gh: 54fL high RDW-S D 54.4 (H) 37.0 - 54.0 fl 04/30 9:26 AM [email or web address] [employer] [facility] AT[facility] Not Available Not Available 09/01/2024 16:25:15 04/30/19 25 04/30/2024 CBC W Diffe renti al panel , metho d unspe cifie d - Blood platelet [entitic mean volume] in blood by automated count 9.3 fL low: 6fLhig h: 12fL MPV 9.3 6.0 - 12.0 fL 04/30 9:26 AM [employer] LABOR ATORY Not Available Not Available 09/01/2024 16:25:15 04/30/19 25 04/30/2024 CBC W Diffe josé al panel , metho d unspe cifie d - Blood platelets [#/volume] in blood by automated count 232 10*3/ mm3 low: 58349* 3/mm3h igh: 16987* 3/mm3 Plate lets 232 140 - 450 10*3/ mm3 04/30 9:26 AM [employer] LABOR ATORY Not Available Not Available 09/01/2024 16:25:15 04/30/19 25 04/30/2024 CBC W Jennifere michaelti al panel , metho d unspe cifie d - Blood neutrophils/ leukocytes in blood by automated count 63.4 % low: 42.7%h igh: 76% Neutr ophil % 63.4 42.7 - 76.0 % 04/30 9:26 AM [employer] LABOR ATORY Not Available Not Available 09/01/2024 16:25:15 04/30/19 25 04/30/2024 CBC W Jennifere josé al panel , metho d unspe cifie d - Blood lymphocytes/ leukocytes in blood by automated count 25 % low: 19.6%h igh: 45.3% Lymph ocyte % 25.0 19.6 - 45.3 % 04/30 9:26 AM [employer] [facility] LABOR ATORY Not Available Not Available 09/01/2024 16:25:15 04/30/19 25 04/30/2024 CBC W Diffe renti al panel , metho d unspe cifie d - Blood monocytes/le ukocytes in blood by automated count 6.8 % low: 5%high : 12% Monoc yte % 6.8 5.0 - 12.0 % 04/30 9:[address] [employer] Not Available Not Available 09/01/2024 16:25:15 04/30/19 25 04/30/2024 CBC W Diffe renti al panel , metho d unspe cifie d - Blood eosinophils/ leukocytes in blood by automated count 4.1 % low: 0.3%hi gh: 6.2% Eosin ophil % 4.1 0.3 - 6.2 % 04/30 9:[address] [employer] [place] [facility] Not Available Not Available 09/01/2024 16:25:15 04/30/19 25 04/30/2024 CBC W Diffe renti al panel , metho d unspe cifie d - Blood basophils/le ukocytes in blood by automated count 0.5 % low: 0%high : 1.5% Basop hil % 0.5 0.0 - 1.5 % 04/30 9:26 AM EST [facility] [facility] [employer] [facility] ATORY Not Available Not Available 09/01/2024 16:25:15 04/30/19 25 04/30/2024 CBC W Diffe renti al panel , metho d unspe cifie d - Blood immature granulocytes /leukocytes in blood by automated count 0.2 % low: 0%high : 0.5% Immat ure Grans % 0.2 0.0 - 0.5 % 04/30 9:26 AM EST [facility] [facility] [employer] [place] [facility] AT[facility] Not Available Not Available 09/01/2024 16:25:15 04/30/19 25 04/30/2024 CBC W Diffe renti al panel , metho d unspe cifie d - Blood neutrophils/ leukocytes in blood by automated count 6.1 10*3/ mm3 low: 1.710* 3/mm3h igh: 710*3/ mm3 Neutr ophil s, Absol gambell 6.10 1.70 - 7.00 10*3/ mm3 04/30 9:[address] [employer] Not Available Not Available 09/01/2024 16:25:15 04/30/19 25 04/30/2024 CBC W Diffe renti al panel , metho d unspe cifie d - Blood lymphocytes [#/volume] in blood by automated count 2.41 10*3/ mm3 low: 0.710* 3/mm3h igh: 3.110* 3/mm3 Lymph ocyte s, Absol gambell 2.41 0.70 - 3.10 10*3/ mm3 04/30 9:26 AM EST [facility]T H [employer] LABOR ATORY Not Available Not Available 09/01/2024 16:25:15 04/30/19 25 04/30/2024 CBC W Diffe renti al panel , metho d unspe cifie d - Blood monocytes [#/volume] in blood by automated count 0.66 10*3/ mm3 low: 0.110* 3/mm3h igh: 0.910* 3/mm3 Monoc ytes, Absol gambell 0.66 0.10 - 0.90 10*3/ mm3 04/30 9:26 AM EST [employer] [facility] [employer] LABOR ATORY Not Available Not Available 09/01/2024 16:25:15 04/30/19 25 04/30/2024 CBC W Diffe renti al panel , metho d unspe cifie d - Blood eosinophils [#/volume] in blood by automated count 0.4 10*3/ mm3 low: 010*3/ mm3hig h: 0.410* 3/mm3 Eosin ophil s, Absol gambell 0.40 0.00 - 0.40 10*3/ mm3 04/30 9:26 AM EST [employer] [facility] [employer] LABOR ATORY Not Available Not Available 09/01/2024 16:25:15 04/30/19 25 04/30/2024 CBC W Diffe renti al panel , metho d unspe cifie d - Blood basophils [#/volume] in blood by automated count 0.05 10*3/ mm3 low: 010*3/ mm3hig h: 0.210* 3/mm3 Basop hils, Absol gambell 0.05 0.00 - 0.20 10*3/ mm3 04/30 9:26 AM EST [facility] ATORY Not Available Not Available 09/01/2024 16:25:15 04/30/19 25 04/30/2024 CBC W Diffe renti al panel , metho d unspe cifie d - Blood immature granulocytes [#/volume] in blood by automated count 0.02 10*3/ mm3 low: 010*3/ mm3hig h: 0.0510 *3/mm3 Immat ure Grans , Absol gambell 0.02 0.00 - 0.05 10*3/ mm3 04/30 9:26 AM EST [facility] ATORY Not Available Not Available 09/01/2024 16:25:15 04/30/19 25 04/30/2024 CBC W Diffe renti al panel , metho d unspe cifie d - Blood nucleated erythrocytes /leukocytes [ratio] in blood by automated count 0 text: 0.0 - 0.2 /100 WBC nRBC 0.0 0.0 - 0.2 /100 WBC 04/30 9:26 AM [facility] ATORY Not Available Not Available 09/01/2024 16:25:15 [...] 1.6 - 2.4 mg/dL 04/30 9:41 AM [facility] ATORY Not Available Not Available 09/01/2024 16:25:15 [...] - 130 mg/dL 04/30 7:08 AM EST [facility] [employer] AT[facility] Not Available Not Available [...] - 130 mg/dL 05/01 8:[address] [facility] TechnologiesT H [employer] LAB[facility] AT[facility] Not Available Not Available 09/01/2024 [...] - 130 mg/dL 05/01 4:58 PM EST [facility] [employer] LAB[facility] AT[facility] Not Available Not Available 09/01/2024 [...] - 130 mg/dL 05/01 11:34 AM EST [employer] [facility] [employer] [facility] AT[facility] Not Available Not Available [...] - 130 mg/dL 05/01 7:22 AM EST [employer] [facility] [employer] AT[facility] Not Available Not Available 09/01/2024 [...] - 130 mg/dL 05/02 9:26 PM EST First Look MediaT [employer] [facility] LABOR ATORY Not Available Not Available 09/01/2024 [...] - 130 mg/dL 05/02 8:34 PM EST [employer] [facility] MediaT [facility] [facility] [facility] AT[facility] Not [...] - 130 mg/dL 05/02 4:[address] [employer]T [facility] LABOR ATORY Not Available Not Available 09/01/2024 [...] - 130 mg/dL 05/02 12:21 PM EST [employer] [facility] AT[facility] Not Available Not Available 09/01/2024 [...] - 130 mg/dL 05/02 7:42 AM EST [employer] [facility] [employer]T [facility] LABOR ATORY Not Available Not Available 09/01/2024 [...] mm3 05/02 6:[address] [employer] [employer] AT[facility] Not Available Not Available 09/01/2024 16:25:16 05/02/19 25 05/02/2024 CBC W Diffe renti al panel , metho d unspe cifie d - Blood erythrocytes [#/volume] in blood by automated count 5.65 10*6/ mm3 low: 4.1410 *6/mm3 high: 5.810* 6/mm3 RBC 5.65 4.14 - 5.80 10*6/ mm3 05/02 6:05 AM EST [facility]T [facility] [employer] AT[facility] Not Available Not Available 09/01/2024 16:25:16 05/02/19 25 05/02/2024 CBC W Diffe renti al panel , metho d unspe cifie d - Blood hemoglobin [mass/volume ] in blood 13.4 g/dL low: 13g/dL high: 17.7g/ dL Hemog lobin 13.4 13.0 - 17.7 g/dL 05/02 6:05 AM EST [facility] [facility] [employer] AT[facility] Not Available Not Available 09/01/2024 16:25:16 05/02/19 25 05/02/2024 CBC W Diffe renti al panel , metho d unspe cifie d - Blood hematocrit [volume fraction] of blood by automated count 44.4 % low: 37.5%h igh: 51% Hemat ocrit 44.4 37.5 - 51.0 % 05/02 6:05 AM EST [facility] [employer] AT[facility] Not Available Not Available 09/01/2024 16:25:16 05/02/19 25 05/02/2024 CBC W Diffe renti al panel , metho d unspe cifie d - Blood MCV [entitic mean volume] in red blood cells by automated count 78.6 fL low: 79fLhi gh: 97fL low MCV 78.6 (L) 79.0 - 97.0 fL 05/02 6:05 AM [employer] [facility] LABOR ATORY Not Available Not Available 09/01/2024 16:25:16 05/02/19 25 05/02/2024 CBC W Diffe renti al panel , metho d unspe cifie d - Blood MCH [entitic mass] by automated count 23.7 pg low: 26.6pg high: 33pg low MCH 23.7 (L) 26.6 - 33.0 pg 05/02 6:05 AM [facility] Not Available Not Available 09/01/2024 16:25:16 05/02/19 25 05/02/2024 CBC W Diffe renti al panel , metho d unspe cifie d - Blood MCHC [entitic mass/volume] in red blood cells by automated count 30.2 g/dL low: 31.5g/ dLhigh : 35.7g/ dL low MCHC 30.2 (L) 31.5 - 35.7 g/dL 05/02 6:05 AM [facility] Not Available Not Available 09/01/2024 16:25:16 05/02/19 25 05/02/2024 CBC W Diffe renti al panel , metho d unspe cifie d - Blood erythrocyte [distwidth] in red blood cells by automated count 19.8 % low: 12.3%h igh: 15.4% high RDW 19.8 (H) 12.3 - 15.4 % 05/02 6:05 AM [facility] Not Available Not Available 09/01/2024 16:25:16 05/02/19 25 05/02/2024 CBC W Diffe renti al panel , metho d unspe cifie d - Blood RDW-SD 53.8 fL low: 37fLhi gh: 54fL RDW-S D 53.8 37.0 - 54.0 fl 05/02 6:05 AM [facility] Not Available Not Available 09/01/2024 16:25:16 05/02/19 25 05/02/2024 CBC W Diffe renti al panel , metho d unspe cifie d - Blood platelet [entitic mean volume] in blood by automated count 9.4 fL low: 6fLhig h: 12fL MPV 9.4 6.0 - 12.0 fL 05/02 6:05 AM [facility] Not Available Not Available 09/01/2024 16:25:16 05/02/19 25 05/02/2024 CBC W Diffe michaelti al panel , metho d unspe cifie d - Blood platelets [#/volume] in blood by automated count 245 10*3/ mm3 low: 18436* 3/mm3h igh: 75334* 3/mm3 Plate lets 245 140 - 450 10*3/ mm3 05/02 6:05 AM [employer] LABOR ATORY Not Available Not Available 09/01/2024 16:25:16 05/02/19 25 05/02/2024 CBC W Diffe michaelti al panel , metho d unspe cifie d - Blood neutrophils/ leukocytes in blood by automated count 61 % low: 42.7%h igh: 76% Neutr ophil % 61.0 42.7 - 76.0 % 05/02 6:05 AM [employer] [facility] LABOR ATORY Not Available Not Available 09/01/2024 [...] 12.0 % 05/02 6:05 AM EST [facility] [employer] [facility] LAB[facility] AT[facility] Not Available Not Available 09/01/2024 16:25:16 05/02/19 25 05/02/2024 CBC W Diffe renti al panel , metho d unspe cifie d - Blood eosinophils/ leukocytes in blood by automated count 4.7 % low: 0.3%hi gh: 6.2% Eosin ophil % 4.7 0.3 - 6.2 % 05/02 6:05 AM EST [employer] [facility] AT[facility] Not Available Not Available 09/01/2024 16:25:16 05/02/19 25 05/02/2024 CBC W Diffe renti al panel , metho d unspe cifie d - Blood basophils/le ukocytes in blood by automated count 0.8 % low: 0%high : 1.5% Basop hil % 0.8 0.0 - 1.5 % 05/02 6:05 AM EST [employer] [facility] [facility] AT[facility] Not Available Not Available 09/01/2024 16:25:16 05/02/19 25 05/02/2024 CBC W Diffe renti al panel , metho d unspe cifie d - Blood immature granulocytes /leukocytes in blood by automated count 0.3 % low: 0%high : 0.5% Immat ure Grans % 0.3 0.0 - 0.5 % 05/02 6:05 AM EST [employer] [facility] LAB[facility] AT[facility] Not Available Not Available 09/01/2024 16:25:16 05/02/19 25 05/02/2024 CBC W Diffe renti al panel , metho d unspe cifie d - Blood neutrophils/ leukocytes in blood by automated count 5.67 10*3/ mm3 low: 1.710* 3/mm3h igh: 710*3/ mm3 Neutr ophil s, Absol gambell 5.67 1.70 - 7.00 10*3/ mm3 05/02 6:05 AM EST [employer] [facility] [employer] [facility] AT[facility] Not Available Not Available 09/01/2024 16:25:16 05/02/19 25 05/02/2024 CBC W Diffe renti al panel , metho d unspe cifie d - Blood lymphocytes [#/volume] in blood by automated count 2.44 10*3/ mm3 low: 0.710* 3/mm3h igh: 3.110* 3/mm3 Lymph ocyte s, Absol gambell 2.44 0.70 - 3.10 10*3/ mm3 05/02 6:05 AM EST [facility] [employer] LAB[facility] AT[facility] Not Available Not Available 09/01/2024 16:25:16 05/02/19 25 05/02/2024 CBC W Diffe renti al panel , metho d unspe cifie d - Blood monocytes [#/volume] in blood by automated count 0.65 10*3/ mm3 low: 0.110* 3/mm3h igh: 0.910* 3/mm3 Monoc ytes, Absol gambell 0.65 0.10 - 0.90 10*3/ mm3 05/02 6:05 AM EST [facility] [employer] LAB[facility] AT[facility] Not Available Not Available 09/01/2024 16:25:16 05/02/19 25 05/02/2024 CBC W Diffe renti al panel , metho d unspe cifie d - Blood eosinophils [#/volume] in blood by automated count 0.44 10*3/ mm3 low: 010*3/ mm3hig h: 0.410* 3/mm3 high Eosin ophil s, Absol gambell 0.44 (H) 0.00 - 0.40 10*3/ mm3 05/02 6:05 AM EST [facility] [employer] LAB[facility] AT[facility] Not Available Not Available 09/01/2024 16:25:16 05/02/19 25 05/02/2024 CBC W Diffe renti al panel , metho d unspe cifie d - Blood basophils [#/volume] in blood by automated count 0.07 10*3/ mm3 low: 010*3/ mm3hig h: 0.210* 3/mm3 Basop hils, Absol gambell 0.07 0.00 - 0.20 10*3/ mm3 05/02 6:05 AM EST [facility] [employer] [employer] AT[facility] Not Available Not Available 09/01/2024 16:25:16 05/02/19 25 05/02/2024 CBC W Diffe renti al panel , metho d unspe cifie d - Blood immature granulocytes [#/volume] in blood by automated count 0.03 10*3/ mm3 low: 010*3/ mm3hig h: 0.0510 *3/mm3 Immat ure Grans , Absol gambell 0.03 0.00 - 0.05 10*3/ mm3 05/02 6:05 AM EST [employer] [facility] [employer] [facility] AT[facility] Not Available Not Available 09/01/2024 16:25:16 05/02/19 25 05/02/2024 CBC W Diffe renti al panel , metho d unspe cifie d - Blood nucleated erythrocytes /leukocytes [ratio] in blood by automated count 0 text: 0.0 - 0.2 /100 WBC nRBC 0.0 0.0 - 0.2 /100 WBC 05/02 6:05 AM EST [employer] [facility] [employer] ATORY Not Available Not Available 09/01/2024 16:25:16 [...] - 2.4 mg/dL 05/02 6:30 AM EST [facility] LAB[facility] AT[facility] Not Available [...] - 99 mg/dL 05/02 6:[address] [employer] LAB[facility] AT[facility] Not Available Not Available 09/01/2024 16:25:16 05/02/19 25 05/02/2024 Basic metab olic 2000 panel - Serum or Plasm a urea nitrogen [mass/volume ] in serum or plasma 30 mg/dL low: 8mg/dL high: 23mg/d L high BUN 30 (H) 8 - 23 mg/dL 05/02 6:[address] [employer] [employer] Not Available Not Available 09/01/2024 16:25:16 05/02/19 25 05/02/2024 Basic metab olic 2000 panel - Serum or Plasm a creatinine [mass/volume ] in serum or plasma 1.15 mg/dL low: 0.76mg /dLhig h: 1.27mg /dL Creat inine 1.15 0.76 - 1.27 mg/dL 05/02 6:30 AM EST [facility] AT[facility] Not Available Not Available 09/01/2024 16:25:16 05/02/19 25 05/02/2024 Basic metab olic 2000 panel - Serum or Plasm a sodium [moles/volum e] in serum or plasma 142 mmol/ L low: 136mmo l/Lhig h: 145mmo l/L Sodiu m 142 136 - 145 mmol/ L 05/02 6:30 AM EST [facility] AT[facility] Not Available Not Available 09/01/2024 16:25:16 05/02/19 25 05/02/2024 Basic metab olic 1999 panel - Serum or Plasm a potassium [moles/volum e] in serum or plasma 4.9 mmol/ L low: 3.5mmo l/Lhig h: 5.2mmo l/L Potas sium 4.9 3.5 - 5.2 mmol/ L 05/02 6:30 AM EST [facility] [employer] LAB[facility] AT[facility] Not Available Not Available 09/01/2024 16:25:16 05/02/19 25 05/02/2024 Basic metab olic 1999 panel - Serum or Plasm a chloride [moles/volum e] in serum or plasma 98 mmol/ L low: 98mmol /Lhigh : 107mmo l/L Chlor chava 98 98 - 107 mmol/ L 05/02 6:30 AM EST [employer] [facility] LAB[facility] AT[facility] Not Available Not Available 09/01/2024 16:25:16 05/02/19 25 05/02/2024 Basic metab olic 1999 panel - Serum or Plasm a carbon dioxide, total [moles/volum e] in serum or plasma 34 mmol/ L low: 22mmol /Lhigh : 29mmol /L high CO2 34.0 (H) 22.0 - 29.0 mmol/ L 05/02 6:30 AM EST [facility] [employer]T [employer] ATORY Not Available Not Available 09/01/2024 16:25:16 05/02/19 25 05/02/2024 Basic metab olic 1999 panel - Serum or Plasm a calcium [moles/volum e] in specimen 9.1 mg/dL low: 8.6mg/ dLhigh : 10.5mg /dL Calci um 9.1 8.6 - 10.5 mg/dL 05/02 6:30 AM EST [facility] LAB[facility] AT[facility] Not Available Not Available 09/01/2024 16:25:16 05/02/19 25 05/02/2024 Basic metab olic 2000 panel - Serum or Plasm a urea nitrogen/cre atinine [mass ratio] in serum or plasma 26.1 low: 7high: 25 high BUN/C reati nine Ratio 26.1 (H) 7.0 - 25.0 05/02 6:30 AM EST [employer] ATORY Not Available Not Available 09/01/2024 16:25:16 05/02/19 25 05/02/2024 Basic metab olic 2000 panel - Serum or Plasm a anion gap in serum or plasma by calculated.3 ions 10 mmol/ L low: 5mmol/ Lhigh: 15mmol /L Anion Gap 10.0 5.0 - 15.0 mmol/ L 05/02 6:30 AM EST [facility] [employer] ATORY Not Available Not Available 09/01/2024 16:25:16 05/02/19 25 05/02/2024 Basic metab olic 2000 panel - Serum or Plasm a glomerular filtration rate [volume rate/area] in serum, plasma or blood by creatinine-b ased formula (CKD-epi 2020)/1.73 sq M 72 mL/mi n/1.7 3 low: 60mL/m in/1.7 3 eGFR 72.0 >60.0 mL/mi n/1.7 3 05/02 6:30 AM EST [employer] ATORY Not Available Not Available 09/01/2024 16:25:16 [...] preta tion G1 90 or great er Etat l or high (1) G2 60-89 Mild [...] - 130 mg/dL 05/04 5:[address] [employer] [employer] Not Available Not Available 09/01/2024 [...] - 130 mg/dL 05/04 12:03 PM EST [employer] [facility] [employer] LAB[facility] AT[facility] Not Available Not Available 09/01/2024 [...] 70 - 130 mg/dL 05/04 8:18 AM [facility] [facility] LAB[facility] AT[facility] Not Available Not Available 09/01/2024 [...] - 130 mg/dL 05/05 8:24 PM EST [facility] AT[facility] Not Available [...] - 130 mg/dL 05/05 4:[address] [employer] AT[facility] Not Available [...] - 130 mg/dL 05/05 12:[address] [employer] [employer] LAB[facility] AT[facility] Not Available Not Available [...] mg/dL 05/05 7:[address] [employer] [facility] AT[facility] Not Available [...] 11:[address] [facility] [employer] Not Available Not Available 09/01/2024 [...] - 99 mg/dL 05/06 10:30 AM EST [employer] [facility] LAB[facility] AT[facility] Not Available Not Available 09/01/2024 16:25:17 05/06/19 25 05/06/2024 Basic metab olic 1999 panel - Serum or Plasm a urea nitrogen [mass/volume ] in serum or plasma 24 mg/dL low: 8mg/dL high: 23mg/d L high BUN 24 (H) 8 - 23 mg/dL 05/06 10:30 AM [facility] LABOR ATORY Not Available Not Available 09/01/2024 16:25:17 05/06/19 25 05/06/2024 Basic metab olic 1999 panel - Serum or Plasm a creatinine [mass/volume ] in serum or plasma 0.94 mg/dL low: 0.76mg /dLhig h: 1.27mg /dL Creat inine 0.94 0.76 - 1.27 mg/dL 05/06 10:30 AM [facility] LABOR ATORY Not Available Not Available 09/01/2024 16:25:17 05/06/19 25 05/06/2024 Basic metab olic 1999 panel - Serum or Plasm a sodium [moles/volum e] in serum or plasma 138 mmol/ L low: 136mmo l/Lhig h: 145mmo l/L Sodiu m 138 136 - 145 mmol/ L 05/06 10:30 AM [employer] LABOR ATORY Not Available Not Available 09/01/2024 16:25:17 05/06/19 25 05/06/2024 Basic metab olic 1999 panel - Serum or Plasm a potassium [moles/volum e] in serum or plasma 4 mmol/ L low: 3.5mmo l/Lhig h: 5.2mmo l/L Potas sium 4.0 3.5 - 5.2 mmol/ L 05/06 10:30 AM EST [employer] LABOR ATORY Not Available Not Available 09/01/2024 16:25:17 05/06/19 25 05/06/2024 Basic metab olic 2000 panel - Serum or Plasm a chloride [moles/volum e] in serum or plasma 96 mmol/ L low: 98mmol /Lhigh : 107mmo l/L low Chlor chava 96 (L) 98 - 107 mmol/ L 05/06 10:30 AM EST [employer] LABOR ATORY Not Available Not Available 09/01/2024 16:25:17 05/06/19 25 05/06/2024 Basic metab olic 2000 panel - Serum or Plasm a carbon dioxide, total [moles/volum e] in serum or plasma 32 mmol/ L low: 22mmol /Lhigh : 29mmol /L high CO2 32.0 (H) 22.0 - 29.0 mmol/ L 05/06 10:30 AM [facility] LABOR ATORY Not Available Not Available 09/01/2024 16:25:17 05/06/19 25 05/06/2024 Basic metab olic 2000 panel - Serum or Plasm a calcium [moles/volum e] in specimen 9.1 mg/dL low: 8.6mg/ dLhigh : 10.5mg /dL Calci um 9.1 8.6 - 10.5 mg/dL 05/06 10:30 AM [facility] LABOR ATORY Not Available Not Available 09/01/2024 16:25:17 05/06/19 25 05/06/2024 Basic metab olic 2000 panel - Serum or Plasm a urea nitrogen/cre atinine [mass ratio] in serum or plasma 25.5 low: 7high: 25 high BUN/C reati nine Ratio 25.5 (H) 7.0 - 25.0 05/06 10:30 AM [facility] LABOR ATORY Not Available Not Available 09/01/2024 16:25:17 05/06/19 25 05/06/2024 Basic metab olic 2000 panel - Serum or Plasm a anion gap in serum or plasma by calculated.3 ions 10 mmol/ L low: 5mmol/ Lhigh: 15mmol /L Anion Gap 10.0 5.0 - 15.0 mmol/ L 05/06 10:30 AM EST [facility] [facility] [employer] ATORY Not Available Not Available 09/01/2024 16:25:17 05/06/19 25 05/06/2024 Basic metab olic 1999 panel - Serum or Plasm a glomerular filtration rate [volume rate/area] in serum, plasma or blood by creatinine-b ased formula (CKD-epi 2020)/1.73 sq M 91.7 mL/mi n/1.7 3 low: 60mL/m in/1.7 3 eGFR 91.7 >60.0 mL/mi n/1.7 3 05/06 10:30 AM EST [employer] [facility] [employer] ATORY Not Available Not Available 09/01/2024 16:25:17 [...] 9:[address] [facility] [employer] [employer] ATORY Not Available Not Available 09/01/2024 16:25:17 05/06/19 25 05/06/2024 CBC panel - Blood by Autom ated count hematocrit [volume fraction] of blood by automated count 42 % low: 37.5%h igh: 51% Hemat ocrit 42.0 37.5 - 51.0 % 05/06 9:59 AM [facility] [employer] ATORY Not Available Not Available 09/01/2024 16:25:17 05/06/19 25 05/06/2024 CBC panel - Blood by Autom ated count MCV [entitic mean volume] in red blood cells by automated count 78.5 fL low: 79fLhi gh: 97fL low MCV 78.5 (L) 79.0 - 97.0 fL 05/06 9:59 AM [place] [employer] [facility] [employer] ATORY Not Available Not Available 09/01/2024 16:25:17 05/06/19 25 05/06/2024 CBC panel - Blood by Autom ated count MCH [entitic mass] by automated count 24.1 pg low: 26.6pg high: 33pg low MCH 24.1 (L) 26.6 - 33.0 pg 05/06 9:59 AM [place] [employer] [facility] [employer] ATORY Not Available Not Available 09/01/2024 16:25:17 05/06/19 25 05/06/2024 CBC panel - Blood by Autom ated count MCHC [entitic mass/volume] in red blood cells by automated count 30.7 g/dL low: 31.5g/ dLhigh : 35.7g/ dL low MCHC 30.7 (L) 31.5 - 35.7 g/dL 05/06 9:59 AM [place] [employer] [facility] [employer] ATORY Not Available Not Available 09/01/2024 16:25:17 05/06/19 25 05/06/2024 CBC panel - Blood by Autom ated count erythrocyte [distwidth] in red blood cells by automated count 19.9 % low: 12.3%h igh: 15.4% high RDW 19.9 (H) 12.3 - 15.4 % 05/06 9:[address] [employer] LABOR ATORY Not Available Not Available 09/01/2024 16:25:17 05/06/19 25 05/06/2024 CBC panel - Blood by Autom ated count RDW-SD 53.5 fL low: 37fLhi gh: 54fL RDW-S D 53.5 37.0 - 54.0 fl 05/06 9:59 AM EST [employer] [facility] [employer] LABOR ATORY Not Available Not Available 09/01/2024 16:25:17 05/06/19 25 05/06/2024 CBC panel - Blood by Autom ated count platelet [entitic mean volume] in blood by automated count 9.5 fL low: 6fLhig h: 12fL MPV 9.5 6.0 - 12.0 fL 05/06 9:59 AM EST [employer] [facility] LABOR ATORY Not Available Not Available 09/01/2024 16:25:17 05/06/19 25 05/06/2024 CBC panel - Blood by Autom ated count platelets [#/volume] in blood by automated count 256 10*3/ mm3 low: 16263* 3/mm3h igh: 53921* 3/mm3 Plate lets 256 140 - 450 10*3/ mm3 05/06 9:59 AM EST [employer] [facility] LABOR ATORY Not Available Not Available 09/01/2024 [...] - 130 mg/dL 05/06 7:55 AM EST [employer] [facility] LABOR ATORY Not Available Not Available 09/01/2024 [...] - 60 mg/dL 05/26 4:[address] [employer] [facility] [employer] [facility] LAB[facility] AT[facility] Not Available Not Available 09/01/2024 16:28:05 05/26/19 25 05/26/2024 Lipid panel with direc t LDL - Serum or Plasm a cholesterol in LDL [mass/volume ] in serum or plasma by calculation 74 mg/dL low: 0mg/dL high: 100mg/ dL LDL Trudy stero l 74 0 - 100 mg/dL 05/26 4:35 PM EST [employer] [facility] LABOR ATORY Not Available Not Available 09/01/2024 16:28:05 05/26/19 25 05/26/2024 Lipid panel with direc t LDL - Serum or Plasm a cholesterol in VLDL [mass/volume ] in serum or plasma 28 mg/dL low: 5mg/dL high: 40mg/d L VLDL Trudy stero l 28 5 - 40 mg/dL 05/26 4:35 PM EST [employer] [facility] LABOR ATORY Not Available Not Available 09/01/2024 16:28:05 05/26/19 25 05/26/2024 Lipid panel with direc t LDL - Serum or Plasm a cholesterol in LDL/choleste rol in HDL [mass ratio] in serum or plasma 1.3 LDL/H DL Ratio 1.30 05/26 4:35 PM EST [employer] LABOR ATORY Not Available Not Available 09/01/2024 16:28:05 05/26/19 25 05/26/2024 Lipid panel with direc t LDL - Serum or Plasm a Unknown Analyte Choles terol Refere nce Ranges ([facility] ATP III Classi ficati ons) Desira ble <200 mg/dL Border line High 200-23 9 mg/dL High Risk >240 mg/dL Trigly ceride Refere nce Ranges ([facility] ATP III Classi ficati ons) Normal <150 mg/dL Border line High 150-19 9 mg/dL High 200-49 9 mg/dL Very High >500 mg/dL HDL Refere nce Ranges ([facility] ATP III Classi ficati ons) Low <40 mg/dl (major risk factor for CHD) High >60 mg/dl ('nega tive' risk factor for CHD) LDL Refere nce Ranges ([facility] ATP III Classi ficati ons) Assaria l <100 mg/dL Near Assaria l 100-12 9 mg/dL Border line High 130-15 9 mg/dL High 160-18 9 mg/dL Very High >189 mg/dL LDL is calcul ated using the NIH LDL-C calcul ation. Trudy stero l Refer ence Range s ([facility] ATP III Class ifica tions ) Raad able <200 mg/dL Borde rline High 200-2 39 mg/dL High Risk >240 mg/dL Trigl yceri de Refer ence Range s ([facility]ristan ATP III Class ifica tions ) Etta l <150 mg/dL Borde rline High 150-1 99 mg/dL High 200-4 99 mg/dL Very High >500 mg/dL HDL Refer ence Range s ([facility] ATP III Class ifica tions ) Low <40 mg/dl (lanie r risk facto r for CHD) High >60 mg/dl ('neg ative ' risk facto r for CHD) LDL Refer ence Range s ([facility] h and Human Servi kristan ATP III [...] 10.80 10*3/ mm3 05/26 2:20 PM EST [employer] LABOR ATORY Not Available Not Available 09/01/2024 16:28:04 05/26/1905/26/2024 CBC W Diffe michaelti al panel , metho d unspe cifie d - Blood erythrocytes [#/volume] in blood by automated count 4.88 10*6/ mm3 low: 4.1410 *6/mm3 high: 5.810* 6/mm3 RBC 4.88 4.14 - 5.80 10*6/ mm3 05/26 2:20 PM EST [employer] [facility] LABOR ATORY Not Available Not Available 09/01/2024 16:28:04 05/26/1905/26/2024 CBC W Anthony kumar al panel , metho d unspe cifie d - Blood hemoglobin [mass/volume ] in blood 11.7 g/dL low: 13g/dL high: 17.7g/ dL low Hemog lobin 11.7 (L) 13.0 - 17.7 g/dL 05/26 2:20 PM EST [employer] LABOR ATORY Not Available Not Available 09/01/2024 16:28:04 05/26/1905/26/2024 CBC W Anthony kumar al panel , metho d unspe cifie d - Blood hematocrit [volume fraction] of blood by automated count 38.6 % low: 37.5%h igh: 51% Hemat ocrit 38.6 37.5 - 51.0 % 05/26 2:20 PM EST [employer] LABOR ATORY Not Available Not Available 09/01/2024 16:28:04 05/26/19 25 05/26/2024 CBC W Diffe renti al panel , metho d unspe cifie d - Blood MCV [entitic mean volume] in red blood cells by automated count 79.1 fL low: 79fLhi gh: 97fL MCV 79.1 79.0 - 97.0 fL 05/26 2:20 PM EST [employer] LABOR ATORY Not Available Not Available 09/01/2024 16:28:04 05/26/19 25 05/26/2024 CBC W Diffe renti al panel , metho d unspe cifie d - Blood MCH [entitic mass] by automated count 24 pg low: 26.6pg high: 33pg low MCH 24.0 (L) 26.6 - 33.0 pg 05/26 2:20 PM EST [employer] [facility] [employer] LABOR ATORY Not Available Not Available 09/01/2024 16:28:04 05/26/19 25 05/26/2024 CBC W Diffe renti al panel , metho d unspe cifie d - Blood MCHC [entitic mass/volume] in red blood cells by automated count 30.3 g/dL low: 31.5g/ dLhigh : 35.7g/ dL low MCHC 30.3 (L) 31.5 - 35.7 g/dL 05/26 2:20 PM EST [employer] [facility] [employer] LABOR ATORY Not Available Not Available 09/01/2024 16:28:04 05/26/19 25 05/26/2024 CBC W Diffe renti al panel , metho d unspe cifie d - Blood erythrocyte [distwidth] in red blood cells by automated count 18.4 % low: 12.3%h igh: 15.4% high RDW 18.4 (H) 12.3 - 15.4 % 05/26 2:20 PM EST [employer] [facility] [employer] LABOR ATORY Not Available Not Available 09/01/2024 16:28:04 05/26/19 25 05/26/2024 CBC W Diffe renti al panel , metho d unspe cifie d - Blood RDW-SD 52.8 fL low: 37fLhi gh: 54fL RDW-S D 52.8 37.0 - 54.0 fl 05/26 2:[address] [employer] [facility] [employer] [facility] AT[facility] Not Available Not Available 09/01/2024 16:28:04 05/26/19 25 05/26/2024 CBC W Diffe renti al panel , metho d unspe cifie d - Blood platelet [entitic mean volume] in blood by automated count 9.2 fL low: 6fLhig h: 12fL MPV 9.2 6.0 - 12.0 fL 05/26 2:20 PM EST [facility] [employer] LABOR ATORY Not Available Not Available 09/01/2024 16:28:04 05/26/19 25 05/26/2024 CBC W Diffe josé al panel , metho d unspe cifie d - Blood platelets [#/volume] in blood by automated count 279 10*3/ mm3 low: 75619* 3/mm3h igh: 86267* 3/mm3 Plate lets 279 140 - 450 10*3/ mm3 05/26 2:20 PM EST [employer] LABOR ATORY Not Available Not Available 09/01/2024 16:28:04 05/26/19 25 05/26/2024 CBC W Jennifere josé al panel , metho d unspe cifie d - Blood neutrophils/ leukocytes in blood by automated count 75 % low: 42.7%h igh: 76% Neutr ophil % 75.0 42.7 - 76.0 % 05/26 2:20 PM EST [employer] LABOR ATORY Not Available Not Available 09/01/2024 16:28:04 05/26/19 25 05/26/2024 CBC W Jennifere josé al panel , metho d unspe cifie d - Blood lymphocytes/ leukocytes in blood by automated count 14 % low: 19.6%h igh: 45.3% low Lymph ocyte % 14.0 (L) 19.6 - 45.3 % 05/26 2:20 PM EST [employer] LABOR ATORY Not Available Not Available 09/01/2024 [...] - 6.2 % 05/26 2:[address] PM [address] [facility] [facility] [employer] AT[facility] Not Available Not Available 09/01/2024 16:28:04 05/26/19 25 05/26/2024 CBC W Diffe renti al panel , metho d unspe cifie d - Blood basophils/le ukocytes in blood by automated count 0.3 % low: 0%high : 1.5% Basop hil % 0.3 0.0 - 1.5 % 05/26 2:[address] [employer] [facility] LAB[facility] ATORY Not Available Not Available 09/01/2024 16:28:04 05/26/19 25 05/26/2024 CBC W Diffe renti al panel , metho d unspe cifie d - Blood immature granulocytes /leukocytes in blood by automated count 0.3 % low: 0%high : 0.5% Immat ure Grans % 0.3 0.0 - 0.5 % 05/26 2:[address] [employer] [facility] LAB[facility] ATORY Not Available Not Available 09/01/2024 16:28:04 05/26/19 25 05/26/2024 CBC W Diffe renti al panel , metho d unspe cifie d - Blood neutrophils/ leukocytes in blood by automated count 7.02 10*3/ mm3 low: 1.710* 3/mm3h igh: 710*3/ mm3 high Neutr ophil s, Absol gambell 7.02 (H) 1.70 - 7.00 10*3/ mm3 05/26 2:[address] PM [address] [facility] [facility] LAB[facility] ATORY Not Available Not Available 09/01/2024 16:28:04 05/26/19 05/26/2024 CBC W Diffe renti al panel , metho d unspe cifie d - Blood lymphocytes [#/volume] in blood by automated count 1.31 10*3/ mm3 low: 0.710* 3/mm3h igh: 3.110* 3/mm3 Lymph ocyte s, Absol gambell 1.31 0.70 - 3.10 10*3/ mm3 05/26 2:20 PM EST [employer] LABOR ATORY Not Available Not Available 09/01/2024 16:28:04 05/26/19 25 05/26/2024 CBC W Diffe renti al panel , metho d unspe cifie d - Blood monocytes [#/volume] in blood by automated count 0.65 10*3/ mm3 low: 0.110* 3/mm3h igh: 0.910* 3/mm3 Monoc ytes, Absol gambell 0.65 0.10 - 0.90 10*3/ mm3 05/26 2:20 PM EST [facility] [employer] LAB[facility] Not Available Not Available 09/01/2024 16:28:04 05/26/19 25 05/26/2024 CBC W Diffe renti al panel , metho d unspe cifie d - Blood eosinophils [#/volume] in blood by automated count 0.33 10*3/ mm3 low: 010*3/ mm3hig h: 0.410* 3/mm3 Eosin ophil s, Absol gambell 0.33 0.00 - 0.40 10*3/ mm3 05/26 2:20 PM EST [facility] Not Available Not Available 09/01/2024 16:28:04 05/26/19 25 05/26/2024 CBC W Diffe renti al panel , metho d unspe cifie d - Blood basophils [#/volume] in blood by automated count 0.03 10*3/ mm3 low: 010*3/ mm3hig h: 0.210* 3/mm3 Basop hils, Absol gambell 0.03 0.00 - 0.20 10*3/ mm3 05/26 2:20 PM EST [facility] Not Available Not Available 09/01/2024 16:28:04 05/26/19 25 05/26/2024 CBC W Diffe renti al panel , metho d unspe cifie d - Blood immature granulocytes [#/volume] in blood by automated count 0.03 10*3/ mm3 low: 010*3/ mm3hig h: 0.0510 *3/mm3 Immat ure Grans , Absol gambell 0.03 0.00 - 0.05 10*3/ mm3 05/26 2:[address] [facility] Not Available Not Available 09/01/2024 16:28:04 05/26/19 25 05/26/2024 CBC W Diffe renti al panel , metho d unspe cifie d - Blood nucleated erythrocytes /leukocytes [ratio] in blood by automated count 0 text: 0.0 - 0.2 /100 WBC nRBC 0.0 0.0 - 0.2 /100 WBC 05/26 2:[address] [facility] [facility] Not Available Not Available 09/01/2024 [...] 2:[address] [facility] Not Available Not Available 09/01/2024 [...] - 130 mg/dL 05/27 7:57 [address] Not Available Not Available 09/01/2024 [...] - 130 mg/dL 05/27 4:43 PM EST [facility] Not Available Not Available 09/01/2024 [...] - 130 mg/dL 05/27 11:[address] [employer] [facility] Not Available Not Available 09/01/2024 [...] AM EST [facility] Not Available Not Available 09/01/2024 16:28:05 05/27/19 25 05/27/2024 CBC W Anthony kumar al panel , metho d unspe cifie d - Blood MCV [entitic mean volume] in red blood cells by automated count 80.9 fL low: 79fLhi gh: 97fL MCV 80.9 79.0 - 97.0 fL 05/27 5:46 AM EST [facility] Not Available Not Available 09/01/2024 16:28:05 05/27/19 25 05/27/2024 CBC W Anthony kumar al panel , metho d unspe cifie d - Blood MCH [entitic mass] by automated count 24 pg low: 26.6pg high: 33pg low MCH 24.0 (L) 26.6 - 33.0 pg 05/27 5:46 AM EST [employer] [facility] Not Available Not Available 09/01/2024 16:28:05 05/27/19 25 05/27/2024 CBC W Anthony kumar al panel , metho d unspe cifie d - Blood MCHC [entitic mass/volume] in red blood cells by automated count 29.7 g/dL low: 31.5g/ dLhigh : 35.7g/ dL low MCHC 29.7 (L) 31.5 - 35.7 g/dL 05/27 5:46 AM EST [facility] Not Available Not Available 09/01/2024 16:28:05 05/27/19 25 05/27/2024 CBC W Anthony kumar al panel , metho d unspe cifie d - Blood erythrocyte [distwidth] in red blood cells by automated count 18.6 % low: 12.3%h igh: 15.4% high RDW 18.6 (H) 12.3 - 15.4 % 05/27 5:46 AM EST [employer] Not Available Not Available 09/01/2024 16:28:05 05/27/19 25 05/27/2024 CBC W Anthony kumar al panel , metho d unspe cifie d - Blood RDW-SD 54.4 fL low: 37fLhi gh: 54fL high RDW-S D 54.4 (H) 37.0 - 54.0 fl 05/27 5:46 AM EST [facility] Not Available Not Available 09/01/2024 16:28:05 05/27/19 25 05/27/2024 CBC W Anthony kumar al panel , metho d unspe cifie d - Blood platelet [entitic mean volume] in blood by automated count 9.3 fL low: 6fLhig h: 12fL MPV 9.3 6.0 - 12.0 fL 05/27 5:46 AM EST [employer] Not Available Not Available 09/01/2024 16:28:05 05/27/19 25 05/27/2024 CBC W Anthony kumar al panel , metho d unspe cifie d - Blood platelets [#/volume] in blood by automated count 266 10*3/ mm3 low: 40349* 3/mm3h igh: 81733* 3/mm3 Plate lets 266 140 - 450 10*3/ mm3 05/27 5:46 AM EST [employer] [facility] Not Available Not Available 09/01/2024 16:28:05 05/27/19 25 05/27/2024 CBC W Anthony kumar al panel , metho d unspe cifie d - Blood neutrophils/ leukocytes in blood by automated count 62 % low: 42.7%h igh: 76% Neutr ophil % 62.0 42.7 - 76.0 % 05/27 5:46 AM [facility] Not Available Not Available 09/01/2024 [...] % 05/27 5:[address] [employer] Not Available Not Available 09/01/2024 16:28:05 05/27/19 25 05/27/2024 CBC W Diffe josé al panel , metho d unspe cifie d - Blood eosinophils/ leukocytes in blood by automated count 4.2 % low: 0.3%hi gh: 6.2% Eosin ophil % 4.2 0.3 - 6.2 % 05/27 5:[address] [employer] Not Available Not Available 09/01/2024 16:28:05 05/27/19 25 05/27/2024 CBC W Jennifere josé al panel , metho d unspe cifie d - Blood basophils/le ukocytes in blood by automated count 0.2 % low: 0%high : 1.5% Basop hil % 0.2 0.0 - 1.5 % 05/27 5:[address] [facility] Not Available [...] igh: 710*3/ mm3 Neutr ophil s, Absol gambell 5.39 1.70 - 7.00 10*3/ mm3 05/27 5:[address] [facility] Not Available Not Available 09/01/2024 16:28:05 05/27/19 25 05/27/2024 CBC W Diffe renti al panel , metho d unspe cifie d - Blood lymphocytes [#/volume] in blood by automated count 2.01 10*3/ mm3 low: 0.710* 3/mm3h igh: 3.110* 3/mm3 Lymph ocyte s, Absol gambell 2.01 0.70 - 3.10 10*3/ mm3 05/27 5:[address] [facility] Not Available Not Available 09/01/2024 16:28:05 05/27/19 25 05/27/2024 CBC W Diffe renti al panel , metho d unspe cifie d - Blood monocytes [#/volume] in blood by automated count 0.89 10*3/ mm3 low: 0.110* 3/mm3h igh: 0.910* 3/mm3 Monoc ytes, Absol gambell 0.89 0.10 - 0.90 10*3/ mm3 05/27 5:[address] [facility] Not Available Not Available 09/01/2024 16:28:05 05/27/19 25 05/27/2024 CBC W Diffe renti al panel , metho d unspe cifie d - Blood eosinophils [#/volume] in blood by automated count 0.37 10*3/ mm3 low: 010*3/ mm3hig h: 0.410* 3/mm3 Eosin ophil s, Absol gambell 0.37 0.00 - 0.40 10*3/ mm3 05/27 5:[address] [facility] Not Available Not Available 09/01/2024 16:28:05 05/27/19 25 05/27/2024 CBC W Diffe renti al panel , metho d unspe cifie d - Blood basophils [#/volume] in blood by automated count 0.02 10*3/ mm3 low: 010*3/ mm3hig h: 0.210* 3/mm3 Basop hils, Absol gambell 0.02 0.00 - 0.20 10*3/ mm3 05/27 5:[address] [facility] Not Available Not Available 09/01/2024 16:28:05/27/19 25 05/27/2024 CBC W Diffe renti al panel , metho d unspe cifie d - Blood immature granulocytes [#/volume] in blood by automated count 0.03 10*3/ mm3 low: 010*3/ mm3hig h: 0.0510 *3/mm3 Immat ure Grans , Absol gambell 0.03 0.00 - 0.05 10*3/ mm3 05/27 5:[address] [facility] Not Available Not Available 09/01/2024 16:28:05/27/19 25 05/27/2024 CBC W Diffe renti al panel , metho d unspe cifie d - Blood nucleated erythrocytes /leukocytes [ratio] in blood by automated count 0 text: 0.0 - 0.2 /100 WBC nRBC 0.0 0.0 - 0.2 /100 WBC 05/27 5:46 AM EST [address] [facility] [facility] Not Available Not Available 09/01/2024 [...] - 2.4 mg/dL 05/27 6:04 AM EST [facility] Not Available Not Available 09/01/2024 [...] - 130 mg/dL 05/28 8:09 PM EST [place] [facility] Not Available Not Available 09/01/2024 [...] 10.80 10*3/ mm3 05/28 3:17 PM EST [place] [facility] Not Available Not Available 09/01/2024 16:28:06 05/28/19 25 05/28/2024 CBC W Diffe renti al panel , metho d unspe cifie d - Blood erythrocytes [#/volume] in blood by automated count 4.97 10*6/ mm3 low: 4.1410 *6/mm3 high: 5.810* 6/mm3 RBC 4.97 4.14 - 5.80 10*6/ mm3 05/28 3:17 PM EST [facility] Not Available Not Available 09/01/2024 16:28:06 05/28/19 25 05/28/2024 CBC W Diffe renti al panel , metho d unspe cifie d - Blood hemoglobin [mass/volume ] in blood 11.9 g/dL low: 13g/dL high: 17.7g/ dL low Hemog lobin 11.9 (L) 13.0 - 17.7 g/dL 05/28 3:17 PM EST [employer] [facility] Not Available Not Available 09/01/2024 16:28:06 05/28/19 25 05/28/2024 CBC W Diffe renti al panel , metho d unspe cifie d - Blood hematocrit [volume fraction] of blood by automated count 38.9 % low: 37.5%h igh: 51% Hemat ocrit 38.9 37.5 - 51.0 % 05/28 3:17 PM EST [facility] Not Available Not Available 09/01/2024 16:28:05/28/19 25 05/28/2024 CBC W Diffe renti al panel , metho d unspe cifie d - Blood MCV [entitic mean volume] in red blood cells by automated count 78.3 fL low: 79fLhi gh: 97fL low MCV 78.3 (L) 79.0 - 97.0 fL 05/28 3:17 PM [facility] Not Available Not Available 09/01/2024 16:28:06 05/28/19 25 05/28/2024 CBC W Diffe renti al panel , metho d unspe cifie d - Blood MCH [entitic mass] by automated count 23.9 pg low: 26.6pg high: 33pg low MCH 23.9 (L) 26.6 - 33.0 pg 05/28 3:17 PM EST [employer] [facility] Not Available Not Available 09/01/2024 16:28:06 05/28/19 25 05/28/2024 CBC W Diffe renti al panel , metho d unspe cifie d - Blood MCHC [entitic mass/volume] in red blood cells by automated count 30.6 g/dL low: 31.5g/ dLhigh : 35.7g/ dL low MCHC 30.6 (L) 31.5 - 35.7 g/dL 05/28 3:17 PM [facility] Not Available Not Available 09/01/2024 16:28:06 05/28/19 25 05/28/2024 CBC W Diffnaren kumar al panel , metho d unspe cifie d - Blood erythrocyte [distwidth] in red blood cells by automated count 17.6 % low: 12.3%h igh: 15.4% high RDW 17.6 (H) 12.3 - 15.4 % 05/28 3:17 PM [facility] Not Available Not Available 09/01/2024 16:28:06 05/28/1905/28/2024 CBC W Diffnaren kumar al panel , metho d unspe cifie d - Blood RDW-SD 49.8 fL low: 37fLhi gh: 54fL RDW-S D 49.8 37.0 - 54.0 fl 05/28 3:17 PM [facility] Not Available Not Available 09/01/2024 16:28:06 05/28/19 25 05/28/2024 CBC W Diffnaren kumar al panel , metho d unspe cifie d - Blood platelet [entitic mean volume] in blood by automated count 9.2 fL low: 6fLhig h: 12fL MPV 9.2 6.0 - 12.0 fL 05/28 3:17 PM [facility] Not Available Not Available 09/01/2024 16:28:06 05/28/19 25 05/28/2024 CBC W Diffnaren kumar al panel , metho d unspe cifie d - Blood platelets [#/volume] in blood by automated count 305 10*3/ mm3 low: 00920* 3/mm3h igh: 82971* 3/mm3 Plate lets 305 140 - 450 10*3/ mm3 02/15 /2025 3:[address] [facility] Not Available Not Available 09/01/2024 16:28:06 05/28/19 25 05/28/2024 CBC W Diffe renti al panel , metho d unspe cifie d - Blood neutrophils/ leukocytes in blood by automated count 65.8 % low: 42.7%h igh: 76% Neutr ophil % 65.8 42.7 - 76.0 % 05/28 3:[address] [facility] Not Available Not Available 09/01/2024 16:28:06 05/28/1905/28/2024 CBC W Diffe renti al panel , metho d unspe cifie d - Blood lymphocytes/ leukocytes in blood by automated count 20.5 % low: 19.6%h igh: 45.3% Lymph ocyte % 20.5 19.6 - 45.3 % 05/28 3:[address] [facility] Not Available Not Available 09/01/2024 16:28:06 05/28/19 25 05/28/2024 CBC W Diffe renti al panel , metho d unspe cifie d - Blood monocytes/le ukocytes in blood by automated count 7.8 % low: 5%high : 12% Monoc yte % 7.8 5.0 - 12.0 % 05/28 3:17 PM [address] [facility] [facility] Not Available [...] - 1.5 % 05/28 3:17 PM EST [facility] [facility] Not Available Not Available 09/01/2024 16:28:06 05/28/19 25 05/28/2024 CBC W Diffe renti al panel , metho d unspe cifie d - Blood immature granulocytes /leukocytes in blood by automated count 0.3 % low: 0%high : 0.5% Immat ure Grans % 0.3 0.0 - 0.5 % 05/28 3:17 PM EST [employer] [facility] Not Available Not Available 09/01/2024 16:28:06 05/28/19 25 05/28/2024 CBC W Jennifere josé al panel , metho d unspe cifie d - Blood neutrophils/ leukocytes in blood by automated count 6.58 10*3/ mm3 low: 1.710* 3/mm3h igh: 710*3/ mm3 Neutr ophil s, Absol gambell 6.58 1.70 - 7.00 10*3/ mm3 05/28 3:17 PM EST [employer] [facility] Not Available Not Available 09/01/2024 16:28:06 05/28/19 25 05/28/2024 CBC W Jennifere josé al panel , metho d unspe cifie d - Blood lymphocytes [#/volume] in blood by automated count 2.05 10*3/ mm3 low: 0.710* 3/mm3h igh: 3.110* 3/mm3 Lymph ocyte s, Absol gambell 2.05 0.70 - 3.10 10*3/ mm3 05/28 3:17 PM EST [employer] [facility] Not Available Not Available 09/01/2024 16:28:06 05/28/19 25 05/28/2024 CBC W Diffe josé al panel , metho d unspe cifie d - Blood monocytes [#/volume] in blood by automated count 0.78 10*3/ mm3 low: 0.110* 3/mm3h igh: 0.910* 3/mm3 Monoc ytes, Absol gambell 0.78 0.10 - 0.90 10*3/ mm3 05/28 3:[address] [facility] Not Available Not Available 09/01/2024 16:28:06 05/28/19 25 05/28/2024 CBC W Diffe renti al panel , metho d unspe cifie d - Blood eosinophils [#/volume] in blood by automated count 0.52 10*3/ mm3 low: 010*3/ mm3hig h: 0.410* 3/mm3 high Eosin ophil s, Absol gambell 0.52 (H) 0.00 - 0.40 10*3/ mm3 05/28 3:[address] [facility] Not Available Not Available 09/01/2024 16:28:06 05/28/19 25 05/28/2024 CBC W Diffe renti al panel , metho d unspe cifie d - Blood basophils [#/volume] in blood by automated count 0.04 10*3/ mm3 low: 010*3/ mm3hig h: 0.210* 3/mm3 Basop hils, Absol gambell 0.04 0.00 - 0.20 10*3/ mm3 05/28 3:[address] [facility] Not Available Not Available 09/01/2024 16:28:06 05/28/19 25 05/28/2024 CBC W Diffe renti al panel , metho d unspe cifie d - Blood immature granulocytes [#/volume] in blood by automated count 0.03 10*3/ mm3 low: 010*3/ mm3hig h: 0.0510 *3/mm3 Immat ure Grans , Absol gambell 0.03 0.00 - 0.05 10*3/ mm3 05/28 3:[address] [facility] Not Available Not Available 09/01/2024 [...] - 130 mg/dL 05/29 4:43 PM EST [facility] [facility] Not Available Not Available 09/01/2024 [...] - 130 mg/dL 05/29 11:50 AM EST [employer] [facility] Not Available Not Available 09/01/2024 [...] - 130 mg/dL 05/29 7:26 AM EST [facility] Not Available Not Available 09/01/2024 16:28:06 [...] - 2.4 mg/dL 05/29 6:[address] [facility] Not Available Not Available 09/01/2024 [...] - 130 mg/dL 05/30 8:[address] [facility] Not Available Not Available 09/01/2024 [...] - 130 mg/dL 05/30 4:45 PM EST [employer] [facility] Not Available Not Available 09/01/2024 [...] RE FILMA RRAY 05/30 1:53 PM [address] Not Available [...] RRAY 05/30 1:[address] [facility] Not Available [...] - 130 mg/dL 05/30 7:22 AM EST [employer] [facility] [employer] Not Available Not Available 09/01/2024 [...] - 2.4 mg/dL 05/30 6:48 AM EST [facility] [employer] Not Available Not Available 09/01/2024 [...] - 99 mg/dL 05/30 6:41 AM EST [facility] Not Available Not Available 09/01/2024 16:28:06 05/30/19 25 05/30/2024 Renal funct ion 1999 panel - Serum or Plasm a urea nitrogen [mass/volume ] in serum or plasma 29 mg/dL low: 8mg/dL high: 23mg/d L high BUN 29 (H) 8 - 23 mg/dL 05/30 6:41 AM EST [facility] [employer] AT[facility] Not Available Not Available 09/01/2024 16:28:06 05/30/19 25 05/30/2024 Renal funct ion 1999 panel - Serum or Plasm a creatinine [mass/volume ] in serum or plasma 1.51 mg/dL low: 0.76mg /dLhig h: 1.27mg /dL high Creat inine 1.51 (H) 0.76 - 1.27 mg/dL 05/30 6:41 AM EST [facility] AT[facility] Not Available Not Available 09/01/2024 16:28:06 05/30/19 25 05/30/2024 Renal funct ion 1999 panel - Serum or Plasm a sodium [moles/volum e] in serum or plasma 133 mmol/ L low: 136mmo l/Lhig h: 145mmo l/L low Sodiu m 133 (L) 136 - 145 mmol/ L 05/30 6:41 AM EST [employer] [facility] AT[facility] Not Available Not Available 09/01/2024 16:28:06 05/30/19 25 05/30/2024 Renal funct ion 1999 panel - Serum or Plasm a potassium [moles/volum e] in serum or plasma 3.3 mmol/ L low: 3.5mmo l/Lhig h: 5.2mmo l/L low Potas sium 3.3 (L) 3.5 - 5.2 mmol/ L 05/30 6:41 AM EST [employer] [facility] AT[facility] Not Available Not Available 09/01/2024 16:28:06 05/30/19 25 05/30/2024 Renal funct ion 1999 panel - Serum or Plasm a chloride [moles/volum e] in serum or plasma 84 mmol/ L low: 98mmol /Lhigh : 107mmo l/L low Chlor chava 84 (L) 98 - 107 mmol/ L 05/30 6:41 AM EST [employer] AT[facility] Not Available Not Available 09/01/2024 16:28:06 05/30/19 25 05/30/2024 Renal funct ion 1999 panel - Serum or Plasm a carbon dioxide, total [moles/volum e] in serum or plasma 40 mmol/ L low: 22mmol /Lhigh : 29mmol /L high CO2 40.0 (H) 22.0 - 29.0 mmol/ L 05/30 6:41 AM [facility] AT[facility] Not Available Not Available 09/01/2024 16:28:06 05/30/19 25 05/30/2024 Renal funct ion 1999 panel - Serum or Plasm a calcium [moles/volum e] in specimen 9.3 mg/dL low: 8.6mg/ dLhigh : 10.5mg /dL Calci um 9.3 8.6 - 10.5 mg/dL 05/30 6:41 AM EST [facility] AT[facility] Not Available Not Available 09/01/2024 16:28:06 05/30/19 25 05/30/2024 Renal funct ion 1999 panel - Serum or Plasm a albumin [mass/volume ] in serum or plasma 3.6 g/dL low: 3.5g/d Lhigh: 5.2g/d L Album in 3.6 3.5 - 5.2 g/dL 05/30 6:41 AM [facility] AT[facility] Not Available Not Available 09/01/2024 16:28:06 05/30/19 25 05/30/2024 Renal funct ion 1999 panel - Serum or Plasm a phosphate [mass/volume ] in serum or plasma 5.6 mg/dL low: 2.5mg/ dLhigh : 4.5mg/ dL high Phosp horus 5.6 (H) 2.5 - 4.5 mg/dL 05/30 6:41 AM [facility] ATORY Not Available Not Available 09/01/2024 16:28:06 05/30/19 25 05/30/2024 Renal funct ion 1999 panel - Serum or Plasm a anion gap in serum or plasma by calculated.3 ions 9 mmol/ L low: 5mmol/ Lhigh: 15mmol /L Anion Gap 9.0 5.0 - 15.0 mmol/ L 05/30 6:41 AM [facility] ATORY Not Available Not Available 09/01/2024 16:28:06 05/30/19 25 05/30/2024 Renal funct ion 1999 panel - Serum or Plasm a urea nitrogen/cre atinine [mass ratio] in serum or plasma 19.2 low: 7high: 25 BUN/C reati nine Ratio 19.2 7.0 - 25.0 05/30 6:41 AM EST [facility] ATORY Not Available Not Available 09/01/2024 16:28:06 05/30/19 25 05/30/2024 Renal funct ion 1999 panel - Serum or Plasm a glomerular filtration rate [volume rate/area] in serum, plasma or blood by creatinine-b ased formula (CKD-epi 2020)/1.73 sq M 51.9 mL/mi n/1.7 3 low: 60mL/m in/1.7 3 low eGFR 51.9 (L) >60.0 mL/mi n/1.7 3 05/30 6:41 AM [facility] ATORY Not Available Not Available 09/01/2024 16:28:06 [...] - 130 mg/dL 06/01 4:[address] Not Available Not Available [...] - 130 mg/dL 06/01 4:[address] [facility] Not Available Not Available 09/01/2024 [...] - 130 mg/dL 06/01 11:[address] [facility] Not Available Not Available 09/01/2024 [...] 130 mg/dL 02/19 /2025 7:[address] [facility] Not Available [...] - 99 mg/dL 06/01 4:48 AM EST [facility] Not Available Not Available 09/01/2024 16:28:07 06/01/19 25 06/01/2024 Basic metab olic 2000 panel - Serum or Plasm a urea nitrogen [mass/volume ] in serum or plasma 33 mg/dL low: 8mg/dL high: 23mg/d L high BUN 33 (H) 8 - 23 mg/dL 06/01 4:48 AM EST [facility] Not Available Not Available 09/01/2024 16:28:07 06/01/19 25 06/01/2024 Basic metab olic 1999 panel - Serum or Plasm a creatinine [mass/volume ] in serum or plasma 1.33 mg/dL low: 0.76mg /dLhig h: 1.27mg /dL high Creat inine 1.33 (H) 0.76 - 1.27 mg/dL 06/01 4:48 AM EST [facility] Not Available Not Available 09/01/2024 16:28:07 06/01/19 25 06/01/2024 Basic metab olic 1999 panel - Serum or Plasm a sodium [moles/volum e] in serum or plasma 131 mmol/ L low: 136mmo l/Lhig h: 145mmo l/L low Sodiu m 131 (L) 136 - 145 mmol/ L 06/01 4:[address] [facility] Not Available Not Available 09/01/2024 16:28:07 06/01/19 25 06/01/2024 Basic metab olic 1999 panel - Serum or Plasm a potassium [moles/volum e] in serum or plasma 3.8 mmol/ L low: 3.5mmo l/Lhig h: 5.2mmo l/L Potas sium 3.8 3.5 - 5.2 mmol/ L 06/01 4:48 AM EST [facility] Not Available Not Available 09/01/2024 16:28:07 06/01/19 25 06/01/2024 Basic metab olic 1999 panel - Serum or Plasm a chloride [moles/volum e] in serum or plasma 87 mmol/ L low: 98mmol /Lhigh : 107mmo l/L low Chlor chava 87 (L) 98 - 107 mmol/ L 06/01 4:48 AM EST [employer] [facility] Not Available Not Available 09/01/2024 16:28:07 06/01/19 25 06/01/2024 Basic metab olic 1999 panel - Serum or Plasm a carbon dioxide, total [moles/volum e] in serum or plasma 37 mmol/ L low: 22mmol /Lhigh : 29mmol /L high CO2 37.0 (H) 22.0 - 29.0 mmol/ L 06/01 4:[address] [facility] Not Available Not Available 09/01/2024 16:28:07 06/01/19 25 06/01/2024 Basic metab olic 1999 panel - Serum or Plasm a calcium [moles/volum e] in specimen 9.2 mg/dL low: 8.6mg/ dLhigh : 10.5mg /dL Calci um 9.2 8.6 - 10.5 mg/dL 06/01 4:48 AM EST [facility]T [employer] Not Available Not Available 09/01/2024 16:28:07 06/01/19 25 06/01/2024 Basic metab olic 1999 panel - Serum or Plasm a urea nitrogen/cre atinine [mass ratio] in serum or plasma 24.8 low: 7high: 25 BUN/C reati nine Ratio 24.8 7.0 - 25.0 06/01 4:[address] [facility] Not Available Not Available 09/01/2024 16:28:07 06/01/19 25 06/01/2024 Basic metab olic 1999 panel - Serum or Plasm a anion gap in serum or plasma by calculated.3 ions 7 mmol/ L low: 5mmol/ Lhigh: 15mmol /L Anion Gap 7.0 5.0 - 15.0 mmol/ L 06/01 4:[address] [facility] Not Available Not Available 09/01/2024 16:28:07 06/01/19 25 06/01/2024 Basic metab olic 1999 panel - Serum or Plasm a glomerular filtration rate [volume rate/area] in serum, plasma or blood by creatinine-b ased formula (CKD-epi 2020)/1.73 sq M 60.4 mL/mi n/1.7 3 low: 60mL/m in/1.7 3 eGFR 60.4 >60.0 mL/mi n/1.7 3 06/01 4:[address] [facility] Not Available Not Available 09/01/2024 [...] - 130 mg/dL 06/02 11:19 AM EST [address] [facility] Not Available Not Available [...] 7:[address] [facility] Not Available Not Available [...] 6:[address] [facility] [employer] Not Available Not Available 09/01/2024 16:28:08 06/03/1906/03/2024 CBC W Anthony kumar al panel , metho d unspe cifie d - Blood hematocrit [volume fraction] of blood by automated count 38.7 % low: 37.5%h igh: 51% Hemat ocrit 38.7 37.5 - 51.0 % 06/03 6:50 AM EST [employer] [facility] Not Available Not Available 09/01/2024 16:28:08 06/03/19 25 06/03/2024 CBC W Anthony kumar al panel , metho d unspe cifie d - Blood MCV [entitic mean volume] in red blood cells by automated count 78.5 fL low: 79fLhi gh: 97fL low MCV 78.5 (L) 79.0 - 97.0 fL 06/03 6:50 AM EST [facility] [employer] [facility] Not Available Not Available 09/01/2024 16:28:08 06/03/19 25 06/03/2024 CBC W Anthony kumar al panel , metho d unspe cifie d - Blood MCH [entitic mass] by automated count 24.1 pg low: 26.6pg high: 33pg low MCH 24.1 (L) 26.6 - 33.0 pg 06/03 6:50 AM EST [facility] [employer] [facility] Not Available Not Available 09/01/2024 16:28:08 06/03/19 25 06/03/2024 CBC W Anthony kumar al panel , metho d unspe cifie d - Blood MCHC [entitic mass/volume] in red blood cells by automated count 30.7 g/dL low: 31.5g/ dLhigh : 35.7g/ dL low MCHC 30.7 (L) 31.5 - 35.7 g/dL 06/03 6:50 AM EST [employer] [facility] Not Available Not Available 09/01/2024 16:28:08 02/21/06/03/2024 CBC W Diffe renti al panel , metho d unspe cifie d - Blood erythrocyte [distwidth] in red blood cells by automated count 17.6 % low: 12.3%h igh: 15.4% high RDW 17.6 (H) 12.3 - 15.4 % 06/03 6:50 AM EST [employer] [facility] Not Available Not Available 09/01/2024 16:28:08 06/03/19 25 06/03/2024 CBC W Diffe josé al panel , metho d unspe cifie d - Blood RDW-SD 48.8 fL low: 37fLhi gh: 54fL RDW-S D 48.8 37.0 - 54.0 fl 06/03 6:50 AM [facility] Not Available Not Available 09/01/2024 16:28:08 06/03/19 25 06/03/2024 CBC W Anthony kumar al panel , metho d unspe cifie d - Blood platelet [entitic mean volume] in blood by automated count 9.1 fL low: 6fLhig h: 12fL MPV 9.1 6.0 - 12.0 fL 06/03 6:50 AM EST [facility] Not Available Not Available 09/01/2024 16:28:08 06/03/19 25 06/03/2024 CBC W Anthony kumar al panel , metho d unspe cifie d - Blood platelets [#/volume] in blood by automated count 326 10*3/ mm3 low: 96889* 3/mm3h igh: 30648* 3/mm3 Plate lets 326 140 - 450 10*3/ mm3 06/03 6:50 AM [employer] ATORY Not Available Not Available 09/01/2024 16:28:08 06/03/19 25 06/03/2024 CBC W Diffe josé al panel , metho d unspe cifie d - Blood neutrophils/ leukocytes in blood by automated count 78.7 % low: 42.7%h igh: 76% high Neutr ophil % 78.7 (H) 42.7 - 76.0 % 06/03 6:[address] [employer] [facility] Not Available Not Available 09/01/2024 16:28:08 06/03/19 25 06/03/2024 CBC W Diffe renti al panel , metho d unspe cifie d - Blood lymphocytes/ leukocytes in blood by automated count 14.6 % low: 19.6%h igh: 45.3% low Lymph ocyte % 14.6 (L) 19.6 - 45.3 % 06/03 6:50 AM EST [facility] [employer]TI [facility] [employer] Not Available Not Available 09/01/2024 16:28:08 06/03/1906/03/2024 CBC W Diffe renti al panel , metho d unspe cifie d - Blood monocytes/le ukocytes in blood by automated count 4.7 % low: 5%high : 12% low Monoc yte % 4.7 (L) 5.0 - 12.0 % 06/03 6:[address] [employer] Not Available Not Available 09/01/2024 16:28:08 06/03/1906/03/2024 CBC W Diffe renti al panel , metho d unspe cifie d - Blood eosinophils/ leukocytes in blood by automated count 0.1 % low: 0.3%hi gh: 6.2% low Eosin ophil % 0.1 (L) 0.3 - 6.2 % 06/03 6:50 AM EST [employer] Look Media[employer] H [facility] Not Available Not Available 09/01/2024 16:28:08 06/03/19 25 06/03/2024 CBC W Diffe renti al panel , metho d unspe cifie d - Blood basophils/le ukocytes in blood by automated count 0.3 % low: 0%high : 1.5% Basop hil % 0.3 0.0 - 1.5 % 06/03 6:50 AM EST [facility]TI [facility] [employer] Not Available Not Available 09/01/2024 16:28:08 02/21/20 25 06/03/2024 CBC W Diffe renti al panel , metho d unspe cifie d - Blood immature granulocytes /leukocytes in blood by automated count 1.6 % low: 0%high : 0.5% high Immat ure Grans % 1.6 (H) 0.0 - 0.5 % 06/03 6:[address] [facility] [employer] [facility] Not Available Not Available 09/01/2024 16:28:08 06/03/19 25 06/03/2024 CBC W Diffe renti al panel , metho d unspe cifie d - Blood neutrophils/ leukocytes in blood by automated count 11.08 10*3/ mm3 low: 1.710* 3/mm3h igh: 710*3/ mm3 high Neutr ophil s, Absol gambell 11.08 (H) 1.70 - 7.00 10*3/ mm3 06/03 6:50 AM EST [facility] [employer] [facility] Not Available Not Available 09/01/2024 16:28:08 06/03/19 25 06/03/2024 CBC W Diffe renti al panel , metho d unspe cifie d - Blood lymphocytes [#/volume] in blood by automated count 2.05 10*3/ mm3 low: 0.710* 3/mm3h igh: 3.110* 3/mm3 Lymph ocyte s, Absol gambell 2.05 0.70 - 3.10 10*3/ mm3 06/03 6:50 AM EST [facility] [employer] [facility] Not Available Not Available 09/01/2024 16:28:08 06/03/19 25 06/03/2024 CBC W Diffe renti al panel , metho d unspe cifie d - Blood monocytes [#/volume] in blood by automated count 0.66 10*3/ mm3 low: 0.110* 3/mm3h igh: 0.910* 3/mm3 Monoc ytes, Absol gambell 0.66 0.10 - 0.90 10*3/ mm3 06/03 6:50 AM EST [facility] [employer] [facility] Not Available Not Available 09/01/2024 16:28:08 06/03/19 25 06/03/2024 CBC W Diffe renti al panel , metho d unspe cifie d - Blood eosinophils [#/volume] in blood by automated count 0.02 10*3/ mm3 low: 010*3/ mm3hig h: 0.410* 3/mm3 Eosin ophil s, Absol gambell 0.02 0.00 - 0.40 10*3/ mm3 06/03 6:[address] [facility] [employer] [facility] Not Available Not Available 09/01/2024 16:28:08 06/03/19 25 06/03/2024 CBC W Diffe renti al panel , metho d unspe cifie d - Blood basophils [#/volume] in blood by automated count 0.04 10*3/ mm3 low: 010*3/ mm3hig h: 0.210* 3/mm3 Basop hils, Absol gambell 0.04 0.00 - 0.20 10*3/ mm3 06/03 6:50 AM EST [facility]TI [facility] [employer] [facility] Not Available Not Available 09/01/2024 16:28:08 06/03/19 25 06/03/2024 CBC W Diffe renti al panel , metho d unspe cifie d - Blood immature granulocytes [#/volume] in blood by automated count 0.22 10*3/ mm3 low: 010*3/ mm3hig h: 0.0510 *3/mm3 high Immat ure Grans , Absol gambell 0.22 (H) 0.00 - 0.05 10*3/ mm3 06/03 6:50 AM EST [address] [facility] [facility] [employer] [facility] Not Available Not Available 09/01/2024 16:28:08 06/03/19 25 06/03/2024 CBC W Diffe renti al panel , metho d unspe cifie d - Blood nucleated erythrocytes /leukocytes [ratio] in blood by automated count 0 text: 0.0 - 0.2 /100 WBC nRBC 0.0 0.0 - 0.2 /100 WBC 06/03 6:50 AM [facility] [employer] ATORY Not Available Not Available 09/01/2024 16:28:08 [...] 1.6 - 2.4 mg/dL 06/03 7:08 AM [facility] [employer] ATORY Not Available Not Available 09/01/2024 16:28:08 [...] 65 - 99 mg/dL 06/03 7:08 AM [facility] [employer] [facility] AT[facility] Not Available Not Available 09/01/2024 16:28:08 06/03/19 25 06/03/2024 Basic metab olic 2000 panel - Serum or Plasm a urea nitrogen [mass/volume ] in serum or plasma 30 mg/dL low: 8mg/dL high: 23mg/d L high BUN 30 (H) 8 - 23 mg/dL 06/03 7:08 AM [facility] [employer] ATORY Not Available Not Available 09/01/2024 16:28:08 06/03/19 25 06/03/2024 Basic metab olic 2000 panel - Serum or Plasm a creatinine [mass/volume ] in serum or plasma 1.11 mg/dL low: 0.76mg /dLhig h: 1.27mg /dL Creat inine 1.11 0.76 - 1.27 mg/dL 06/03 7:08 AM EST [employer] [facility] AT[facility] Not Available Not Available 09/01/2024 16:28:08 06/03/19 25 06/03/2024 Basic metab olic 1999 panel - Serum or Plasm a sodium [moles/volum e] in serum or plasma 133 mmol/ L low: 136mmo l/Lhig h: 145mmo l/L low Sodiu m 133 (L) 136 - 145 mmol/ L 06/03 7:08 AM [employer] [facility] ATORY Not Available Not Available 09/01/2024 16:28:08 06/03/19 25 06/03/2024 Basic metab olic 1999 panel - Serum or Plasm a potassium [moles/volum e] in serum or plasma 4.3 mmol/ L low: 3.5mmo l/Lhig h: 5.2mmo l/L Potas sium 4.3 3.5 - 5.2 mmol/ L 06/03 7:08 AM [employer] [facility] ATORY Not Available Not Available 09/01/2024 16:28:08 06/03/19 25 06/03/2024 Basic metab olic 1999 panel - Serum or Plasm a chloride [moles/volum e] in serum or plasma 89 mmol/ L low: 98mmol /Lhigh : 107mmo l/L low Chlor chava 89 (L) 98 - 107 mmol/ L 06/03 7:08 AM [employer] [facility] AT[facility] Not Available Not Available 09/01/2024 16:28:08 06/03/19 25 06/03/2024 Basic metab olic 1999 panel - Serum or Plasm a carbon dioxide, total [moles/volum e] in serum or plasma 35 mmol/ L low: 22mmol /Lhigh : 29mmol /L high CO2 35.0 (H) 22.0 - 29.0 mmol/ L 06/03 7:08 AM EST [employer] ATORY Not Available Not Available 09/01/2024 16:28:08 06/03/19 25 06/03/2024 Basic metab olic 2000 panel - Serum or Plasm a calcium [moles/volum e] in specimen 9.4 mg/dL low: 8.6mg/ dLhigh : 10.5mg /dL Calci um 9.4 8.6 - 10.5 mg/dL 06/03 7:08 AM EST [employer] ATORY Not Available Not Available 09/01/2024 16:28:08 06/03/19 25 06/03/2024 Basic metab olic 1999 panel - Serum or Plasm a urea nitrogen/cre atinine [mass ratio] in serum or plasma 27 low: 7high: 25 high BUN/C reati nine Ratio 27.0 (H) 7.0 - 25.0 06/03 7:08 AM EST [employer] ATORY Not Available Not Available 09/01/2024 16:28:08 06/03/19 25 06/03/2024 Basic metab olic 2000 panel - Serum or Plasm a anion gap in serum or plasma by calculated.3 ions 9 mmol/ L low: 5mmol/ Lhigh: 15mmol /L Anion Gap 9.0 5.0 - 15.0 mmol/ L 06/03 7:08 AM EST [employer] ATORY Not Available Not Available 09/01/2024 16:28:08 06/03/19 25 06/03/2024 Basic metab olic 1999 panel - Serum or Plasm a glomerular filtration rate [volume rate/area] in serum, plasma or blood by creatinine-b ased formula (CKD-epi 2020)/1.73 sq M 75.1 mL/mi n/1.7 3 low: 60mL/m in/1.7 3 eGFR 75.1 >60.0 mL/mi n/1.7 3 06/03 7:08 AM EST [employer] ATORY Not Available Not Available 09/01/2024 16:28:08 [...] - 130 mg/dL 06/29 10:11 PM EDT [facility] [employer] Not Available Not Available 09/01/2024 [...] - 130 mg/dL 06/29 8:37 PM EDT [facility] H [employer] [facility] Not Available Not Available 09/01/2024 [...] - 130 mg/dL 06/29 6:40 PM EDT [facility] [employer] Not Available Not Available 09/01/2024 [...] - 130 mg/dL 06/29 4:38 PM EDT [facility] [employer] [facility] Not Available Not Available 09/01/2024 [...] - 0.50 mg/dL 06/29 4:41 PM EDT [facility] [employer] [facility] AT[facility] Not Available Not Available 09/01/2024 [...] (H) <22 ng/L 06/29 1:43 PM EDT [facility] [employer] [facility] Not Available Not Available 09/01/2024 [...] text: abnorm al if >/= 20% Tropo baism T % Delta 0 Abnor mal if [...] n, EKG, Tropo basim, and seria l manzanraes es to deter mine if it is [...] No Beta Hemol ytic Strep tococ cus Blakeslee contreras at 2 days LENARD 07/01 11:03 [...] ELOY 06/29 12:[address] [facility] Not Available Not Available 09/01/2024 16:25:56 06/30/19 25 06/29/2024 Strep tococ cus pyoge cristobal Ag [Pres ence] in [facility] Unknown Analyte Test perfor med by Direct Antige n Testin g. Test perfo rmed by Dire t Antig en Testi ng. Not Available Not Available 09/01/2024 16:25:56 06/30/19 25 06/29/2024 Strep tococ cus pyoge cristobal Ag [Pres ence] in [facility] interpretati on and review of laboratory results Normal Not Available Not Available 08/12 16:25:56 06/30/19 25 06/29/2024 Urina lysis macro (dips tick) panel - Urine color of urine Yellow text: yellow , straw Color , UA Yello w Yello w, Straw 06/29 12:20 PM EDT [facility] Not Available Not Available 09/01/2024 16:25:56 06/30/19 25 06/29/2024 Urina lysis macro (dips tick) panel - Urine clarity of urine Clear text: clear Appea emma , UA Clear Clear 06/29 12:20 PM EDT [facility] Not Available Not Available 09/01/2024 16:25:56 06/30/19 25 06/29/2024 Urina lysis macro (dips tick) panel - Urine pH of urine by automated test strip 7 low: 5high: 8 pH, UA 7.0 5.0 - 8.0 06/29 12:[address] [facility] Not Available Not Available 09/01/2024 16:25:56 06/30/19 25 06/29/2024 Urina lysis macro (dips tick) panel - Urine specific gravity of urine by test strip 1.018 low: 1.001h igh: 1.03 Speci fic Gravi ty, UA 1.018 1.001 - 1.030 06/29 12:20 PM EDT [employer] [facility] [employer] LAB[facility] ATORY Not Available Not Available 09/01/2024 16:25:56 06/30/19 25 06/29/2024 Urina lysis macro (dips tick) panel - Urine glucose [mass/volume ] in urine by test strip 500 mg/dL (2+) text: negati ve abnormal Gluco se, UA 500 mg/dL (2+) (A) Negat minh 06/29 12:20 PM EDT [employer] [facility] [employer] [facility] ATORY Not Available Not Available 09/01/2024 16:25:56 06/30/19 25 06/29/2024 Urina lysis macro (dips tick) panel - Urine ketones [presence] in urine by test strip Negati ve text: negati ve [place] es, UA Negat minh Negat minh 06/29 12:20 PM EDT [employer] [facility] [employer] [facility] AT[facility] Not Available Not Available 09/01/2024 16:25:56 06/30/19 25 06/29/2024 Urina lysis macro (dips tick) panel - Urine bilirubin.to alberto [presence] in urine by test strip Negati ve text: negati ve Bilir ubin, UA Negat minh Negat minh 06/29 12:20 PM EDT [employer] [facility] [employer] [facility] AT[facility] Not Available Not Available 09/01/2024 16:25:56 06/30/19 25 06/29/2024 Urina lysis macro (dips tick) panel - Urine hemoglobin [presence] in urine by automated test strip Negati ve text: negati ve Blood , UA Negat minh Negat minh 06/29 12:20 PM EDT [employer] [facility] [employer] [facility] Not Available Not Available 09/01/2024 16:25:56 06/30/19 25 06/29/2024 Urina lysis macro (dips tick) panel - Urine protein [presence] in urine by test strip 30 mg/dL (1+) text: negati ve abnormal Prote in, UA 30 mg/dL (1+) (A) Negat minh 06/29 12:20 PM EDT [facility] [employer] [facility] AT[facility] Not Available Not Available 09/01/2024 16:25:56 06/30/19 25 06/29/2024 Urina lysis macro (dips tick) panel - Urine leukocyte esterase [presence] in urine by automated test strip Negati ve text: negati ve Leuk Kacey ase, UA Negat minh Negat minh 06/29 12:20 PM EDT [facility] [employer] [facility] Not Available Not Available 09/01/2024 16:25:56 06/30/19 25 06/29/2024 Urina lysis macro (dips tick) panel - Urine nitrite [presence] in urine by test strip Negati ve text: negati ve Nitri te, UA Negat minh Negat minh 06/29 12:20 PM EDT [facility] [employer] [facility] AT[facility] Not Available Not Available 09/01/2024 16:25:56 06/30/19 25 06/29/2024 Urina lysis macro (dips tick) panel - Urine urobilinogen [presence] in urine by test strip 0.2 E.U./d L text: 0.2 - 1.0 E.U./d L Urobi linog en, UA 0.2 E.U./ dL 0.2 - 1.0 E.U./ dL 06/29 12:20 PM EDT [facility] [employer] [facility] [employer] [facility] AT[facility] Not Available Not Available 09/01/2024 [...] sis PCR Not Detec contreras Not Detec conrteras BIOFI RE FILMA RRAY 06/29 1:20 PM [...] - 2.4 mg/dL 06/29 12:41 PM EDT [facility] Not Available [...] - 1.68 ng/dL 06/29 12:25 PM EDT [facility] [employer] [facility] Not Available Not Available [...] - 0.25 ng/mL 06/29 12:24 PM EDT [facility] Not Available [...] are availa ble. Refer to http:/ /www.b [facility]- pct-ca lculat or.com Change in PCT [...] avail able. Refer to http: //www .[facility] ms-pc t-jone culat or.co m [place] [...] 10.80 10*3/ mm3 06/29 11:58 AM EDT [employer] [facility] ATORY Not Available Not Available 09/01/2024 16:25:56 06/30/19 25 06/29/2024 CBC W Diffe renti al panel , metho d unspe cifie d - Blood erythrocytes [#/volume] in blood by automated count 4.64 10*6/ mm3 low: 4.1410 *6/mm3 high: 5.810* 6/mm3 RBC 4.64 4.14 - 5.80 10*6/ mm3 06/29 11:58 AM EDT [employer] ATORY Not Available Not Available 09/01/2024 16:25:56 06/30/1906/29/2024 CBC W Diffe renti al panel , metho d unspe cifie d - Blood hemoglobin [mass/volume ] in blood 11.2 g/dL low: 13g/dL high: 17.7g/ dL low Hemog lobin 11.2 (L) 13.0 - 17.7 g/dL 06/29 11:58 AM EDT [employer] ATORY Not Available Not Available 09/01/2024 16:25:56 06/30/19 25 06/29/2024 CBC W Diffe renti al panel , metho d unspe cifie d - Blood hematocrit [volume fraction] of blood by automated count 38.5 % low: 37.5%h igh: 51% Hemat ocrit 38.5 37.5 - 51.0 % 06/29 11:58 AM EDT [employer] [facility] AT[facility] Not Available Not Available 09/01/2024 16:25:56 06/30/19 25 06/29/2024 CBC W Diffe renti al panel , metho d unspe cifie d - Blood MCV [entitic mean volume] in red blood cells by automated count 83 fL low: 79fLhi gh: 97fL MCV 83.0 79.0 - 97.0 fL 06/29 11:58 AM EDT [employer] [facility] [employer] [facility] Not Available Not Available 09/01/2024 16:25:56 06/30/19 25 06/29/2024 CBC W Diffe renti al panel , metho d unspe cifie d - Blood MCH [entitic mass] by automated count 24.1 pg low: 26.6pg high: 33pg low MCH 24.1 (L) 26.6 - 33.0 pg 06/29 11:58 AM EDT [facility] [employer] [facility] Not Available Not Available 09/01/2024 16:25:56 06/30/19 25 06/29/2024 CBC W Diffe renti al panel , metho d unspe cifie d - Blood MCHC [entitic mass/volume] in red blood cells by automated count 29.1 g/dL low: 31.5g/ dLhigh : 35.7g/ dL low MCHC 29.1 (L) 31.5 - 35.7 g/dL 06/29 11:58 AM EDT [employer] [facility] AT[facility] Not Available Not Available 09/01/2024 16:25:56 06/30/1906/29/2024 CBC W Diffe renti al panel , metho d unspe cifie d - Blood erythrocyte [distwidth] in red blood cells by automated count 17.6 % low: 12.3%h igh: 15.4% high RDW 17.6 (H) 12.3 - 15.4 % 06/29 11:58 AM EDT [employer] ATORY Not Available Not Available 09/01/2024 16:25:56 06/30/19 25 06/29/2024 CBC W Diffe renti al panel , metho d unspe cifie d - Blood RDW-SD 53.1 fL low: 37fLhi gh: 54fL RDW-S D 53.1 37.0 - 54.0 fl 06/29 11:58 AM EDT [employer] [facility] [employer] [facility] ATORY Not Available Not Available 09/01/2024 16:25:56 06/30/19 25 06/29/2024 CBC W Diffe renti al panel , metho d unspe cifie d - Blood platelet [entitic mean volume] in blood by automated count 9 fL low: 6fLhig h: 12fL MPV 9.0 6.0 - 12.0 fL 06/29 11:58 AM EDT [employer] [facility] [employer] [facility] AT[facility] Not Available Not Available 09/01/2024 16:25:56 06/30/19 25 06/29/2024 CBC W Diffe renti al panel , metho d unspe cifie d - Blood platelets [#/volume] in blood by automated count 415 10*3/ mm3 low: 45064* 3/mm3h igh: 78586* 3/mm3 Plate lets 415 140 - 450 10*3/ mm3 06/29 11:58 AM EDT [facility] [employer] [facility] Not Available Not Available 09/01/2024 16:25:56 06/30/1906/29/2024 CBC W Diffe renti al panel , metho d unspe cifie d - Blood neutrophils/ leukocytes in blood by automated count 75.9 % low: 42.7%h igh: 76% Neutr ophil % 75.9 42.7 - 76.0 % 06/29 11:58 AM EDT [employer] [facility] ATORY Not Available Not Available 09/01/2024 16:25:56 06/30/19 25 06/29/2024 CBC W Diffe renti al panel , metho d unspe cifie d - Blood lymphocytes/ leukocytes in blood by automated count 14.2 % low: 19.6%h igh: 45.3% low Lymph ocyte % 14.2 (L) 19.6 - 45.3 % 06/29 11:58 AM EDT [employer] [facility] ATORY Not Available Not Available 09/01/2024 16:25:56 06/30/19 25 06/29/2024 CBC W Diffe renti al panel , metho d unspe cifie d - Blood monocytes/le ukocytes in blood by automated count 6.1 % low: 5%high : 12% Monoc yte % 6.1 5.0 - 12.0 % 06/29 11:58 AM EDT [facility] [employer] [facility] [employer] [facility] ATORY Not Available Not Available 09/01/2024 16:25:56 06/30/19 25 06/29/2024 CBC W Diffe renti al panel , metho d unspe cifie d - Blood eosinophils/ leukocytes in blood by automated count 3.1 % low: 0.3%hi gh: 6.2% Eosin ophil % 3.1 0.3 - 6.2 % 06/29 11:58 AM EDT [facility] [employer] [facility] [employer] [facility] AT[facility] Not Available Not Available 09/01/2024 16:25:56 06/30/19 25 06/29/2024 CBC W Diffe renti al panel , metho d unspe cifie d - Blood basophils/le ukocytes in blood by automated count 0.3 % low: 0%high : 1.5% Basop hil % 0.3 0.0 - 1.5 % 06/29 11:58 AM EDT [facility] [employer] [facility] [employer] [facility] ATORY Not Available Not Available 09/01/2024 16:25:56 06/30/19 25 06/29/2024 CBC W Diffe renti al panel , metho d unspe cifie d - Blood immature granulocytes /leukocytes in blood by automated count 0.4 % low: 0%high : 0.5% Immat ure Grans % 0.4 0.0 - 0.5 % 06/29 11:58 AM EDT [employer] [facility] [employer] [facility] AT[facility] Not Available Not Available 09/01/2024 16:25:56 06/30/19 25 06/29/2024 CBC W Diffe renti al panel , metho d unspe cifie d - Blood neutrophils/ leukocytes in blood by automated count 7.86 10*3/ mm3 low: 1.710* 3/mm3h igh: 710*3/ mm3 high Neutr ophil s, Absol gambell 7.86 (H) 1.70 - 7.00 10*3/ mm3 06/29 11:[address] [employer] [facility] ATORY Not Available Not Available 09/01/2024 16:25:56 06/30/19 25 06/29/2024 CBC W Diffe renti al panel , metho d unspe cifie d - Blood lymphocytes [#/volume] in blood by automated count 1.47 10*3/ mm3 low: 0.710* 3/mm3h igh: 3.110* 3/mm3 Lymph ocyte s, Absol gambell 1.47 0.70 - 3.10 10*3/ mm3 06/29 11:58 AM EDT [employer] [facility] AT[facility] Not Available Not Available 09/01/2024 16:25:56 06/30/19 25 06/29/2024 CBC W Diffe renti al panel , metho d unspe cifie d - Blood monocytes [#/volume] in blood by automated count 0.63 10*3/ mm3 low: 0.110* 3/mm3h igh: 0.910* 3/mm3 Monoc ytes, Absol gambell 0.63 0.10 - 0.90 10*3/ mm3 06/29 11:58 AM EDT [employer] [facility] [employer] [facility] AT[facility] Not Available Not Available 09/01/2024 16:25:56 06/30/19 25 06/29/2024 CBC W Diffe renti al panel , metho d unspe cifie d - Blood eosinophils [#/volume] in blood by automated count 0.32 10*3/ mm3 low: 010*3/ mm3hig h: 0.410* 3/mm3 Eosin ophil s, Absol gambell 0.32 0.00 - 0.40 10*3/ mm3 06/29 11:58 AM EDT [employer] [facility] AT[facility] Not Available Not Available 09/01/2024 16:25:56 03/19/06/29/2024 CBC W Diffe renti al panel , metho d unspe cifie d - Blood basophils [#/volume] in blood by automated count 0.03 10*3/ mm3 low: 010*3/ mm3hig h: 0.210* 3/mm3 Basop hils, Absol gambell 0.03 0.00 - 0.20 10*3/ mm3 06/29 11:[address] [employer] [facility] AT[facility] Not Available Not Available 09/01/2024 16:25:56 06/30/19 25 06/29/2024 CBC W Diffe renti al panel , metho d unspe cifie d - Blood immature granulocytes [#/volume] in blood by automated count 0.04 10*3/ mm3 low: 010*3/ mm3hig h: 0.0510 *3/mm3 Immat ure Grans , Absol gambell 0.04 0.00 - 0.05 10*3/ mm3 06/29 11:58 AM EDT [employer] [facility] AT[facility] Not Available Not Available 09/01/2024 16:25:56 06/30/19 25 06/29/2024 CBC W Diffe renti al panel , metho d unspe cifie d - Blood nucleated erythrocytes /leukocytes [ratio] in blood by automated count 0 text: 0.0 - 0.2 /100 WBC nRBC 0.0 0.0 - 0.2 /100 WBC 06/29 11:58 AM EDT [employer] ATORY Not Available Not Available 09/01/2024 16:25:56 [...] mg/dL 06/30 11:[address] [facility] Not Available [...] - 130 mg/dL 06/30 7:[address] [employer] [facility] [employer] [facility] Not Available Not Available [...] - 130 mg/dL 06/30 3:[address] [facility] [employer] Not Available Not Available [...] U/L 06/30 4:[address] [facility] Not Available [...] mg/dL 06/30 4:[address] [facility] [employer] [facility] Not Available Not Available 09/01/2024 [...] mg/dL 06/30 4:[address] [facility] Not Available [...] 10.80 10*3/ mm3 06/30 4:35 AM EDT [facility] Not Available Not Available 09/01/2024 16:25:57 07/01/19 25 06/30/2024 CBC panel - Blood by Autom ated count erythrocytes [#/volume] in blood by automated count 4.28 10*6/ mm3 low: 4.1410 *6/mm3 high: 5.810* 6/mm3 RBC 4.28 4.14 - 5.80 10*6/ mm3 06/30 4:35 AM EDT [facility] Not Available Not Available 09/01/2024 16:25:57 07/01/19 25 06/30/2024 CBC panel - Blood by Autom ated count hemoglobin [mass/volume ] in blood 10.3 g/dL low: 13g/dL high: 17.7g/ dL low Hemog lobin 10.3 (L) 13.0 - 17.7 g/dL 06/30 4:35 AM EDT [facility] Not Available Not Available 09/01/2024 16:25:57 07/01/19 25 06/30/2024 CBC panel - Blood by Autom ated count hematocrit [volume fraction] of blood by automated count 35.3 % low: 37.5%h igh: 51% low Hemat ocrit 35.3 (L) 37.5 - 51.0 % 06/30 4:35 AM EDT [facility] [employer] Not Available Not Available 09/01/2024 16:25:57 07/01/19 25 06/30/2024 CBC panel - Blood by Autom ated count MCV [entitic mean volume] in red blood cells by automated count 82.5 fL low: 79fLhi gh: 97fL MCV 82.5 79.0 - 97.0 fL 06/30 4:35 AM EDT [facility] Not Available Not Available 09/01/2024 16:25:57 07/01/19 25 06/30/2024 CBC panel - Blood by Autom ated count MCH [entitic mass] by automated count 24.1 pg low: 26.6pg high: 33pg low MCH 24.1 (L) 26.6 - 33.0 pg 06/30 4:35 AM EDT [facility] Not Available Not Available 09/01/2024 16:25:57 07/01/19 25 06/30/2024 CBC panel - Blood by Autom ated count MCHC [entitic mass/volume] in red blood cells by automated count 29.2 g/dL low: 31.5g/ dLhigh : 35.7g/ dL low MCHC 29.2 (L) 31.5 - 35.7 g/dL 06/30 4:35 AM EDT [facility] Not Available Not Available 09/01/2024 16:25:57 07/01/19 25 06/30/2024 CBC panel - Blood by Autom ated count erythrocyte [distwidth] in red blood cells by automated count 17.6 % low: 12.3%h igh: 15.4% high RDW 17.6 (H) 12.3 - 15.4 % 06/30 4:35 AM EDT [facility] ATORY Not Available Not Available 09/01/2024 16:25:57 07/01/19 25 06/30/2024 CBC panel - Blood by Autom ated count RDW-SD 52.4 fL low: 37fLhi gh: 54fL RDW-S D 52.4 37.0 - 54.0 fl 06/30 4:35 AM [employer] ATORY Not Available Not Available 09/01/2024 16:25:57 07/01/19 25 06/30/2024 CBC panel - Blood by Autom ated count platelet [entitic mean volume] in blood by automated count 9.2 fL low: 6fLhig h: 12fL MPV 9.2 6.0 - 12.0 fL 06/30 4:35 AM EDT [employer] ATORY Not Available Not Available 09/01/2024 16:25:57 07/01/19 25 06/30/2024 CBC panel - Blood by Autom ated count platelets [#/volume] in blood by automated count 376 10*3/ mm3 low: 66681* 3/mm3h igh: 58245* 3/mm3 Plate lets 376 140 - 450 10*3/ mm3 06/30 4:35 AM EDT [employer] ATORY Not Available Not Available 09/01/2024 16:25:57 [...] - 99 mg/dL 06/30 4:47 AM EDT [employer] ATORY Not Available Not Available 09/01/2024 16:25:57 07/01/19 25 06/30/2024 Basic metab olic 2000 panel - Serum or Plasm a urea nitrogen [mass/volume ] in serum or plasma 31 mg/dL low: 8mg/dL high: 23mg/d L high BUN 31 (H) 8 - 23 mg/dL 06/30 4:47 AM EDT [employer] ATORY Not Available Not Available 09/01/2024 16:25:57 07/01/19 25 06/30/2024 Basic metab olic 2000 panel - Serum or Plasm a creatinine [mass/volume ] in serum or plasma 1.16 mg/dL low: 0.76mg /dLhig h: 1.27mg /dL Creat inine 1.16 0.76 - 1.27 mg/dL 06/30 4:[address] [facility] [employer] [place] [facility] AT[facility] Not Available Not Available 09/01/2024 16:25:57 07/01/19 25 06/30/2024 Basic metab olic 1999 panel - Serum or Plasm a sodium [moles/volum e] in serum or plasma 136 mmol/ L low: 136mmo l/Lhig h: 145mmo l/L Sodiu m 136 136 - 145 mmol/ L 06/30 4:47 AM EDT [employer] [facility] [employer] LABOR ATORY Not Available Not Available 09/01/2024 16:25:57 07/01/19 25 06/30/2024 Basic metab olic 1999 panel - Serum or Plasm a potassium [moles/volum e] in serum or plasma 4.7 mmol/ L low: 3.5mmo l/Lhig h: 5.2mmo l/L Potas sium 4.7 3.5 - 5.2 mmol/ L 06/30 4:47 AM EDT [employer] [facility] [employer] LAB[facility] ATORY Not Available Not Available 09/01/2024 16:25:57 07/01/19 25 06/30/2024 Basic metab olic 1999 panel - Serum or Plasm a chloride [moles/volum e] in serum or plasma 96 mmol/ L low: 98mmol /Lhigh : 107mmo l/L low Chlor chava 96 (L) 98 - 107 mmol/ L 06/30 4:47 AM EDT [employer] [facility] [employer] [place] [facility] AT[facility] Not Available Not Available 09/01/2024 16:25:57 07/01/19 25 06/30/2024 Basic metab olic 1999 panel - Serum or Plasm a carbon dioxide, total [moles/volum e] in serum or plasma 30 mmol/ L low: 22mmol /Lhigh : 29mmol /L high CO2 30.0 (H) 22.0 - 29.0 mmol/ L 06/30 4:47 AM EDT First Look MediaT H [place] [facility] ATORY Not Available Not Available 09/01/2024 16:25:57 07/01/19 25 06/30/2024 Basic metab olic 1999 panel - Serum or Plasm a calcium [moles/volum e] in specimen 9.1 mg/dL low: 8.6mg/ dLhigh : 10.5mg /dL Calci um 9.1 8.6 - 10.5 mg/dL 06/30 4:47 AM EDT [facility] [employer] ATORY Not Available Not Available 09/01/2024 16:25:57 07/01/19 25 06/30/2024 Basic metab olic 1999 panel - Serum or Plasm a urea nitrogen/cre atinine [mass ratio] in serum or plasma 26.7 low: 7high: 25 high BUN/C reati nine Ratio 26.7 (H) 7.0 - 25.0 06/30 4:47 AM EDT [employer] [facility] [employer] ATORY Not Available Not Available 09/01/2024 16:25:57 07/01/19 25 06/30/2024 Basic metab olic 2000 panel - Serum or Plasm a anion gap in serum or plasma by calculated.3 ions 10 mmol/ L low: 5mmol/ Lhigh: 15mmol /L Anion Gap 10.0 5.0 - 15.0 mmol/ L 06/30 4:47 AM EDT [facility] [employer] AT[facility] Not Available Not Available 09/01/2024 16:25:57 07/01/19 25 06/30/2024 Basic metab olic 2000 panel - Serum or Plasm a glomerular filtration rate [volume rate/area] in serum, plasma or blood by creatinine-b ased formula (CKD-epi 2020)/1.73 sq M 70.8 mL/mi n/1.7 3 low: 60mL/m in/1.7 3 eGFR 70.8 >60.0 mL/mi n/1.7 3 06/30 4:47 AM EDT [facility] [employer] ATORY Not Available Not Available 09/01/2024 16:25:57 [...] - 130 mg/dL 07/01 7:16 PM EDT [facility] [employer] [place] [facility] ATORY Not Available Not Available 09/01/2024 [...] - 130 mg/dL 07/01 4:23 PM EDT [facility] [employer] [place] [facility] ATORY Not Available Not Available 09/01/2024 [...] - 130 mg/dL 07/01 11:[address] Aventa TechnologiesT H [employer] LABOR ATORY Not Available Not Available 09/01/2024 [...] - 130 mg/dL 07/01 6:42 AM EDT [employer] LABOR ATORY Not Available Not Available 09/01/2024 [...] 10.80 10*3/ mm3 07/01 4:54 AM EDT [employer] Look MediaT [employer] LABOR ATORY Not Available Not Available 09/01/2024 16:25:57 07/02/19 25 07/01/2024 CBC panel - Blood by Autom ated count erythrocytes [#/volume] in blood by automated count 4.48 10*6/ mm3 low: 4.1410 *6/mm3 high: 5.810* 6/mm3 RBC 4.48 4.14 - 5.80 10*6/ mm3 07/01 4:54 AM EDT [facility] [employer] ATORY Not Available Not Available 09/01/2024 16:25:57 07/02/19 25 07/01/2024 CBC panel - Blood by Autom ated count hemoglobin [mass/volume ] in blood 10.7 g/dL low: 13g/dL high: 17.7g/ dL low Hemog lobin 10.7 (L) 13.0 - 17.7 g/dL 07/01 4:54 AM EDT [facility] [employer] ATORY Not Available Not Available 09/01/2024 16:25:57 07/02/1907/01/2024 CBC panel - Blood by Autom ated count hematocrit [volume fraction] of blood by automated count 37 % low: 37.5%h igh: 51% low Hemat ocrit 37.0 (L) 37.5 - 51.0 % 07/01 4:54 AM EDT [facility] [employer] ATORY Not Available Not Available 09/01/2024 16:25:57 07/02/19 25 07/01/2024 CBC panel - Blood by Autom ated count MCV [entitic mean volume] in red blood cells by automated count 82.6 fL low: 79fLhi gh: 97fL MCV 82.6 79.0 - 97.0 fL 07/01 4:54 AM EDT [facility] [employer] ATORY Not Available Not Available 09/01/2024 16:25:57 07/02/19 25 07/01/2024 CBC panel - Blood by Autom ated count MCH [entitic mass] by automated count 23.9 pg low: 26.6pg high: 33pg low MCH 23.9 (L) 26.6 - 33.0 pg 07/01 4:54 AM EDT [facility] [employer] ATORY Not Available Not Available 09/01/2024 16:25:57 07/02/19 25 07/01/2024 CBC panel - Blood by Autom ated count MCHC [entitic mass/volume] in red blood cells by automated count 28.9 g/dL low: 31.5g/ dLhigh : 35.7g/ dL low MCHC 28.9 (L) 31.5 - 35.7 g/dL 07/01 4:54 AM EDT [employer] ATORY Not Available Not Available 09/01/2024 16:25:57 07/02/19 25 07/01/2024 CBC panel - Blood by Autom ated count erythrocyte [distwidth] in red blood cells by automated count 17.4 % low: 12.3%h igh: 15.4% high RDW 17.4 (H) 12.3 - 15.4 % 07/01 4:54 AM EDT [employer] [facility] [employer] ATORY Not Available Not Available 09/01/2024 16:25:57 07/02/19 25 07/01/2024 CBC panel - Blood by Autom ated count RDW-SD 52.5 fL low: 37fLhi gh: 54fL RDW-S D 52.5 37.0 - 54.0 fl 07/01 4:54 AM EDT [employer] [facility] [employer] ATORY Not Available Not Available 09/01/2024 16:25:57 07/02/1907/01/2024 CBC panel - Blood by Autom ated count platelet [entitic mean volume] in blood by automated count 9.6 fL low: 6fLhig h: 12fL MPV 9.6 6.0 - 12.0 fL 07/01 4:54 AM EDT [employer] [facility] [employer] ATORY Not Available Not Available 09/01/2024 16:25:57 07/02/19 25 07/01/2024 CBC panel - Blood by Autom ated count platelets [#/volume] in blood by automated count 414 10*3/ mm3 low: 69337* 3/mm3h igh: 71117* 3/mm3 Plate lets 414 140 - 450 10*3/ mm3 07/01 4:54 AM EDT [employer] ATORY Not Available Not Available 09/01/2024 16:25:57 [...] - 99 mg/dL 07/01 4:58 AM EDT First Look MediaT H [employer] [place] LAB[facility] ATORY Not Available Not Available 09/01/2024 16:25:57 07/02/19 25 07/01/2024 Basic metab olic 1999 panel - Serum or Plasm a urea nitrogen [mass/volume ] in serum or plasma 28 mg/dL low: 8mg/dL high: 23mg/d L high BUN 28 (H) 8 - 23 mg/dL 07/01 4:58 AM EDT [employer] LABOR ATORY Not Available Not Available 09/01/2024 16:25:57 07/02/19 25 07/01/2024 Basic metab olic 1999 panel - Serum or Plasm a creatinine [mass/volume ] in serum or plasma 1.19 mg/dL low: 0.76mg /dLhig h: 1.27mg /dL Creat inine 1.19 0.76 - 1.27 mg/dL 07/01 4:58 AM EDT [employer] LABOR ATORY Not Available Not Available 09/01/2024 16:25:57 07/02/19 25 07/01/2024 Basic metab olic 1999 panel - Serum or Plasm a sodium [moles/volum e] in serum or plasma 136 mmol/ L low: 136mmo l/Lhig h: 145mmo l/L Sodiu m 136 136 - 145 mmol/ L 07/01 4:58 AM EDT First Look MediaT [employer] [place] LABOR ATORY Not Available Not Available 09/01/2024 16:25:57 07/02/19 25 07/01/2024 Basic metab olic 1999 panel - Serum or Plasm a potassium [moles/volum e] in serum or plasma 4.6 mmol/ L low: 3.5mmo l/Lhig h: 5.2mmo l/L Potas sium 4.6 3.5 - 5.2 mmol/ L 07/01 4:58 AM EDT [employer] [facility] LABOR ATORY Not Available Not Available 09/01/2024 16:25:57 07/02/19 25 07/01/2024 Basic metab olic 1999 panel - Serum or Plasm a chloride [moles/volum e] in serum or plasma 95 mmol/ L low: 98mmol /Lhigh : 107mmo l/L low Chlor chava 95 (L) 98 - 107 mmol/ L 07/01 4:58 AM EDT [employer] [place] LABOR ATORY Not Available Not Available 09/01/2024 16:25:57 07/02/19 25 07/01/2024 Basic metab olic 1999 panel - Serum or Plasm a carbon dioxide, total [moles/volum e] in serum or plasma 28 mmol/ L low: 22mmol /Lhigh : 29mmol /L CO2 28.0 22.0 - 29.0 mmol/ L 07/01 4:58 AM EDT [employer] [place] LABOR ATORY Not Available Not Available 09/01/2024 16:25:57 07/02/19 25 07/01/2024 Basic metab olic 2000 panel - Serum or Plasm a calcium [moles/volum e] in specimen 9.2 mg/dL low: 8.6mg/ dLhigh : 10.5mg /dL Calci um 9.2 8.6 - 10.5 mg/dL 07/01 4:58 AM EDT [employer] [place] LABOR ATORY Not Available Not Available 09/01/2024 16:25:57 07/02/19 25 07/01/2024 Basic metab olic 1999 panel - Serum or Plasm a urea nitrogen/cre atinine [mass ratio] in serum or plasma 23.5 low: 7high: 25 BUN/C reati nine Ratio 23.5 7.0 - 25.0 07/01 4:58 AM EDT [employer] LABOR ATORY Not Available Not Available 09/01/2024 16:25:57 07/02/19 25 07/01/2024 Basic metab olic 2000 panel - Serum or Plasm a anion gap in serum or plasma by calculated.3 ions 13 mmol/ L low: 5mmol/ Lhigh: 15mmol /L Anion Gap 13.0 5.0 - 15.0 mmol/ L 07/01 4:[address] [facility] [employer] ATORY Not Available Not Available 09/01/2024 16:25:57 07/02/19 25 07/01/2024 Basic metab olic 1999 panel - Serum or Plasm a glomerular filtration rate [volume rate/area] in serum, plasma or blood by creatinine-b ased formula (CKD-epi 2020)/1.73 sq M 68.6 mL/mi n/1.7 3 low: 60mL/m in/1.7 3 eGFR 68.6 >60.0 mL/mi n/1.7 3 07/01 4:[address] Aventa TechnologiesT H [employer] ATORY Not Available Not Available 09/01/2024 16:25:57 [...] - 130 mg/dL 07/02 4:16 PM EDT [facility] [place] [facility] ATORY Not Available [...] - 130 mg/dL 07/02 1:55 PM EDT [facility] H [employer] [place] [facility] ATORY Not Available Not Available [...] - 130 mg/dL 07/02 8:51 AM EDT [facility] H [place] [facility] ATORY Not Available [...] - 130 mg/dL 07/02 6:43 AM EDT [facility] ATORY Not Available Not Available 09/01/2024 16:25:58 [...] 10.80 10*3/ mm3 07/02 6:23 AM EDT [facility] ATORY Not Available Not Available 09/01/2024 16:25:58 07/03/19 25 07/02/2024 CBC panel - Blood by Autom ated count erythrocytes [#/volume] in blood by automated count 4.64 10*6/ mm3 low: 4.1410 *6/mm3 high: 5.810* 6/mm3 RBC 4.64 4.14 - 5.80 10*6/ mm3 07/02 6:23 AM EDT [facility] ATORY Not Available Not Available 09/01/2024 16:25:58 07/03/1907/02/2024 CBC panel - Blood by Autom ated count hemoglobin [mass/volume ] in blood 11.5 g/dL low: 13g/dL high: 17.7g/ dL low Hemog lobin 11.5 (L) 13.0 - 17.7 g/dL 07/02 6:23 AM EDT [facility] ATORY Not Available Not Available 09/01/2024 16:25:58 07/03/19 25 07/02/2024 CBC panel - Blood by Autom ated count hematocrit [volume fraction] of blood by automated count 37.7 % low: 37.5%h igh: 51% Hemat ocrit 37.7 37.5 - 51.0 % 07/02 6:23 AM EDT [facility] [employer] ATORY Not Available Not Available 09/01/2024 16:25:58 07/03/19 25 07/02/2024 CBC panel - Blood by Autom ated count MCV [entitic mean volume] in red blood cells by automated count 81.3 fL low: 79fLhi gh: 97fL MCV 81.3 79.0 - 97.0 fL 07/02 6:23 AM EDT [facility] [employer] ATORY Not Available Not Available 09/01/2024 16:25:58 07/03/19 25 07/02/2024 CBC panel - Blood by Autom ated count MCH [entitic mass] by automated count 24.8 pg low: 26.6pg high: 33pg low MCH 24.8 (L) 26.6 - 33.0 pg 07/02 6:23 AM EDT [facility] [employer] ATORY Not Available Not Available 09/01/2024 16:25:58 07/03/19 25 07/02/2024 CBC panel - Blood by Autom ated count MCHC [entitic mass/volume] in red blood cells by automated count 30.5 g/dL low: 31.5g/ dLhigh : 35.7g/ dL low MCHC 30.5 (L) 31.5 - 35.7 g/dL 07/02 6:23 AM EDT [facility] [employer] ATORY Not Available Not Available 09/01/2024 16:25:58 07/03/19 25 07/02/2024 CBC panel - Blood by Autom ated count erythrocyte [distwidth] in red blood cells by automated count 17.5 % low: 12.3%h igh: 15.4% high RDW 17.5 (H) 12.3 - 15.4 % 07/02 6:23 AM EDT [employer] [facility] [employer] ATORY Not Available Not Available 09/01/2024 16:25:58 07/03/19 25 07/02/2024 CBC panel - Blood by Autom ated count RDW-SD 50.9 fL low: 37fLhi gh: 54fL RDW-S D 50.9 37.0 - 54.0 fl 07/02 6:23 AM EDT [employer] ATORY Not Available Not Available 09/01/2024 16:25:58 07/03/19 25 07/02/2024 CBC panel - Blood by Autom ated count platelet [entitic mean volume] in blood by automated count 9.2 fL low: 6fLhig h: 12fL MPV 9.2 6.0 - 12.0 fL 07/02 6:23 AM EDT [facility] ATORY Not Available Not Available 09/01/2024 16:25:58 07/03/19 25 07/02/2024 CBC panel - Blood by Autom ated count platelets [#/volume] in blood by automated count 442 10*3/ mm3 low: 48537* 3/mm3h igh: 05784* 3/mm3 Plate lets 442 140 - 450 10*3/ mm3 07/02 6:23 AM EDT [facility] ATORY Not Available Not Available 09/01/2024 16:25:58 [...] - 99 mg/dL 07/02 7:40 AM EDT [facility] ATORY Not Available Not Available 09/01/2024 16:25:57 07/03/19 25 07/02/2024 Basic metab olic 2000 panel - Serum or Plasm a urea nitrogen [mass/volume ] in serum or plasma 26 mg/dL low: 8mg/dL high: 23mg/d L high BUN 26 (H) 8 - 23 mg/dL 07/02 7:40 AM EDT [facility] [employer] [place] [facility] AT[facility] Not Available Not Available 09/01/2024 16:25:57 07/03/19 25 07/02/2024 Basic metab olic 1999 panel - Serum or Plasm a creatinine [mass/volume ] in serum or plasma 1.11 mg/dL low: 0.76mg /dLhig h: 1.27mg /dL Creat inine 1.11 0.76 - 1.27 mg/dL 07/02 7:40 AM EDT [facility] [employer] LABOR ATORY Not Available Not Available 09/01/2024 16:25:57 07/03/19 25 07/02/2024 Basic metab olic 1999 panel - Serum or Plasm a sodium [moles/volum e] in serum or plasma 139 mmol/ L low: 136mmo l/Lhig h: 145mmo l/L Sodiu m 139 136 - 145 mmol/ L 07/02 7:40 AM EDT [facility] [employer] LAB[facility] ATORY Not Available Not Available 09/01/2024 16:25:57 07/03/19 25 07/02/2024 Basic metab olic 1999 panel - Serum or Plasm a potassium [moles/volum e] in serum or plasma 4.1 mmol/ L low: 3.5mmo l/Lhig h: 5.2mmo l/L Potas sium 4.1 3.5 - 5.2 mmol/ L 07/02 7:40 AM EDT [facility] [employer] LABOR ATORY Not Available Not Available 09/01/2024 16:25:57 07/03/19 25 07/02/2024 Basic metab olic 1999 panel - Serum or Plasm a chloride [moles/volum e] in serum or plasma 96 mmol/ L low: 98mmol /Lhigh : 107mmo l/L low Chlor chava 96 (L) 98 - 107 mmol/ L 07/02 7:40 AM EDT [employer] [facility] [employer] LABOR ATORY Not Available Not Available 09/01/2024 16:25:57 07/03/19 25 07/02/2024 Basic metab olic 1999 panel - Serum or Plasm a carbon dioxide, total [moles/volum e] in serum or plasma 24 mmol/ L low: 22mmol /Lhigh : 29mmol /L CO2 24.0 22.0 - 29.0 mmol/ L 07/02 7:40 AM EDT [facility] ATORY Not Available Not Available 09/01/2024 16:25:57 07/03/19 25 07/02/2024 Basic metab olic 1999 panel - Serum or Plasm a calcium [moles/volum e] in specimen 9.2 mg/dL low: 8.6mg/ dLhigh : 10.5mg /dL Calci um 9.2 8.6 - 10.5 mg/dL 07/02 7:40 AM EDT [facility] ATORY Not Available Not Available 09/01/2024 16:25:57 07/03/19 25 07/02/2024 Basic metab olic 1999 panel - Serum or Plasm a urea nitrogen/cre atinine [mass ratio] in serum or plasma 23.4 low: 7high: 25 BUN/C reati nine Ratio 23.4 7.0 - 25.0 07/02 7:40 AM EDT [facility] ATORY Not Available Not Available 09/01/2024 16:25:57 07/03/19 25 07/02/2024 Basic metab olic 1999 panel - Serum or Plasm a anion gap in serum or plasma by calculated.3 ions 19 mmol/ L low: 5mmol/ Lhigh: 15mmol /L high Anion Gap 19.0 (H) 5.0 - 15.0 mmol/ L 07/02 7:40 AM EDT [facility] ATORY Not Available Not Available 09/01/2024 16:25:57 [...] - 130 mg/dL 07/03 10:30 PM EDT [facility] [employer] [facility] ATORY Not Available Not Available 09/01/2024 [...] - 130 mg/dL 07/03 8:11 PM EDT [facility] [employer] LABOR ATORY Not Available Not Available 09/01/2024 [...] - 130 mg/dL 07/03 5:39 PM EDT [facility] [employer] LABOR ATORY Not Available Not Available 09/01/2024 [...] - 130 mg/dL 07/03 12:22 PM EDT [facility] [employer] [place] [facility] ATORY Not Available Not Available [...] - 130 mg/dL 07/03 8:30 AM EDT [facility] [employer] [place] [facility] ATORY Not Available Not Available [...] - 130 mg/dL 07/03 7:07 AM EDT [facility] [employer] [place] [facility] ATORY Not Available Not Available 09/01/2024 [...] 10*3/ mm3 03/23 /2025 5:55 AM EDT [facility] ATORY Not Available Not Available 09/01/2024 16:25:58 07/04/1907/03/2024 CBC panel - Blood by Autom ated count erythrocytes [#/volume] in blood by automated count 4.71 10*6/ mm3 low: 4.1410 *6/mm3 high: 5.810* 6/mm3 RBC 4.71 4.14 - 5.80 10*6/ mm3 07/03 5:55 AM EDT [facility] ATORY Not Available Not Available 09/01/2024 16:25:58 07/04/1907/03/2024 CBC panel - Blood by Autom ated count hemoglobin [mass/volume ] in blood 11.5 g/dL low: 13g/dL high: 17.7g/ dL low Hemog lobin 11.5 (L) 13.0 - 17.7 g/dL 07/03 5:55 AM EDT [facility] ATORY Not Available Not Available 09/01/2024 16:25:58 07/04/19 25 07/03/2024 CBC panel - Blood by Autom ated count hematocrit [volume fraction] of blood by automated count 40 % low: 37.5%h igh: 51% Hemat ocrit 40.0 37.5 - 51.0 % 07/03 5:55 AM [employer] ATORY Not Available Not Available 09/01/2024 16:25:58 07/04/1907/03/2024 CBC panel - Blood by Autom ated count MCV [entitic mean volume] in red blood cells by automated count 84.9 fL low: 79fLhi gh: 97fL MCV 84.9 79.0 - 97.0 fL 07/03 5:55 AM [employer] ATORY Not Available Not Available 09/01/2024 16:25:58 07/04/19 25 07/03/2024 CBC panel - Blood by Autom ated count MCH [entitic mass] by automated count 24.4 pg low: 26.6pg high: 33pg low MCH 24.4 (L) 26.6 - 33.0 pg 07/03 5:55 AM EDT [facility] ATORY Not Available Not Available 09/01/2024 16:25:58 07/04/19 25 07/03/2024 CBC panel - Blood by Autom ated count MCHC [entitic mass/volume] in red blood cells by automated count 28.8 g/dL low: 31.5g/ dLhigh : 35.7g/ dL low MCHC 28.8 (L) 31.5 - 35.7 g/dL 07/03 5:55 AM EDT [facility] ATORY Not Available Not Available 09/01/2024 16:25:58 07/04/1907/03/2024 CBC panel - Blood by Autom ated count erythrocyte [distwidth] in red blood cells by automated count 17.7 % low: 12.3%h igh: 15.4% high RDW 17.7 (H) 12.3 - 15.4 % 07/03 5:55 AM EDT [facility] ATORY Not Available Not Available 09/01/2024 16:25:58 07/04/1907/03/2024 CBC panel - Blood by Autom ated count RDW-SD 53.3 fL low: 37fLhi gh: 54fL RDW-S D 53.3 37.0 - 54.0 fl 07/03 5:55 AM EDT [facility] ATORY Not Available Not Available 09/01/2024 16:25:58 07/04/1907/03/2024 CBC panel - Blood by Autom ated count platelet [entitic mean volume] in blood by automated count 9.3 fL low: 6fLhig h: 12fL MPV 9.3 6.0 - 12.0 fL 07/03 5:55 AM EDT [facility] ATORY Not Available Not Available 09/01/2024 16:25:58 07/04/19 25 07/03/2024 CBC panel - Blood by Autom ated count platelets [#/volume] in blood by automated count 409 10*3/ mm3 low: 31830* 3/mm3h igh: 09489* 3/mm3 Plate lets 409 140 - 450 10*3/ mm3 07/03 5:55 AM EDT [facility] ATORY Not Available Not Available 09/01/2024 16:25:58 [...] - 99 mg/dL 07/03 7:11 AM EDT [facility] AT[facility] Not Available Not Available 09/01/2024 16:25:58 07/04/19 25 07/03/2024 Basic metab olic 1999 panel - Serum or Plasm a urea nitrogen [mass/volume ] in serum or plasma 24 mg/dL low: 8mg/dL high: 23mg/d L high BUN 24 (H) 8 - 23 mg/dL 07/03 7:11 AM EDT [facility] ATORY Not Available Not Available 09/01/2024 16:25:58 07/04/19 25 07/03/2024 Basic metab olic 1999 panel - Serum or Plasm a creatinine [mass/volume ] in serum or plasma 1.04 mg/dL low: 0.76mg /dLhig h: 1.27mg /dL Creat inine 1.04 0.76 - 1.27 mg/dL 07/03 7:11 AM EDT [facility] ATORY Not Available Not Available 09/01/2024 16:25:58 07/04/19 25 07/03/2024 Basic metab olic 2000 panel - Serum or Plasm a sodium [moles/volum e] in serum or plasma 133 mmol/ L low: 136mmo l/Lhig h: 145mmo l/L low Sodiu m 133 (L) 136 - 145 mmol/ L 07/03 7:[address] [facility] [employer] [facility] AT[facility] Not Available Not Available 09/01/2024 16:25:58 07/04/19 25 07/03/2024 Basic metab olic 1999 panel - Serum or Plasm a potassium [moles/volum e] in serum or plasma 4.9 mmol/ L low: 3.5mmo l/Lhig h: 5.2mmo l/L Potas sium 4.9 3.5 - 5.2 mmol/ L 07/03 7:11 AM EDT [facility] [employer] [place] [facility] AT[facility] Not Available Not Available 09/01/2024 16:25:58 07/04/19 25 07/03/2024 Basic metab olic 1999 panel - Serum or Plasm a chloride [moles/volum e] in serum or plasma 92 mmol/ L low: 98mmol /Lhigh : 107mmo l/L low Chlor chava 92 (L) 98 - 107 mmol/ L 07/03 7:11 AM EDT [employer] [facility] [employer] [facility] Not Available Not Available 09/01/2024 16:25:58 07/04/1907/03/2024 Basic metab olic 1999 panel - Serum or Plasm a carbon dioxide, total [moles/volum e] in serum or plasma 21 mmol/ L low: 22mmol /Lhigh : 29mmol /L low CO2 21.0 (L) 22.0 - 29.0 mmol/ L 07/03 7:11 AM EDT [employer] [facility] [facility] [employer] [facility] [facility] Not Available Not Available 09/01/2024 16:25:58 07/04/19 25 07/03/2024 Basic metab olic 1999 panel - Serum or Plasm a calcium [moles/volum e] in specimen 9.2 mg/dL low: 8.6mg/ dLhigh : 10.5mg /dL Calci um 9.2 8.6 - 10.5 mg/dL 07/03 7:11 AM EDT [facility] [employer] Not Available Not Available 09/01/2024 16:25:58 07/04/19 25 07/03/2024 Basic metab olic 1999 panel - Serum or Plasm a urea nitrogen/cre atinine [mass ratio] in serum or plasma 23.1 low: 7high: 25 BUN/C reati nine Ratio 23.1 7.0 - 25.0 07/03 7:11 AM EDT [facility] [employer] [facility] Not Available Not Available 09/01/2024 16:25:58 07/04/19 25 07/03/2024 Basic [employer] olic 1999 panel - Serum or Plasm a anion gap in serum or plasma by calculated.3 ions 20 mmol/ L low: 5mmol/ Lhigh: 15mmol /L high Anion Gap 20.0 (H) 5.0 - 15.0 mmol/ L 07/03 7:11 AM EDT [facility] H [employer] ATORY Not Available Not Available 09/01/2024 16:25:58 07/04/19 25 07/03/2024 Basic metab olic 1999 panel - Serum or Plasm a glomerular filtration rate [volume rate/area] in serum, plasma or blood by creatinine-b ased formula (CKD-epi 2020)/1.73 sq M 80.7 mL/mi n/1.7 3 low: 60mL/m in/1.7 3 eGFR 80.7 >60.0 mL/mi n/1.7 3 07/03 7:11 AM EDT [facility] ATORY Not Available Not Available 09/01/2024 16:25:58 07/04/19 25 07/03/2024 Basic KupiVIP olic 1999 panel - Serum or Plasm [...] - 130 mg/dL 07/04 7:39 PM EDT [employer] [facility] AT[facility] Not Available Not Available 09/01/2024 [...] - 130 mg/dL 07/04 5:29 PM EDT [employer] ATORY Not Available Not Available 09/01/2024 [...] - 130 mg/dL 07/04 12:28 PM EDT [employer] [facility] AT[facility] Not Available Not Available 09/01/2024 [...] - 130 mg/dL 07/04 7:34 AM EDT [employer] [facility] AT[facility] Not Available Not Available 09/01/2024 [...] 10.80 10*3/ mm3 07/04 5:18 AM EDT [employer] ATORY Not Available Not Available 09/01/2024 16:25:59 07/05/19 25 07/04/2024 CBC panel - Blood by Autom ated count erythrocytes [#/volume] in blood by automated count 4.54 10*6/ mm3 low: 4.1410 *6/mm3 high: 5.810* 6/mm3 RBC 4.54 4.14 - 5.80 10*6/ mm3 07/04 5:18 AM EDT [employer] ATORY Not Available Not Available 09/01/2024 16:25:59 07/05/19 25 07/04/2024 CBC panel - Blood by Autom ated count hemoglobin [mass/volume ] in blood 11.1 g/dL low: 13g/dL high: 17.7g/ dL low Hemog lobin 11.1 (L) 13.0 - 17.7 g/dL 07/04 5:18 AM EDT [employer] [facility] ATORY Not Available Not Available 09/01/2024 16:25:59 07/05/19 25 07/04/2024 CBC panel - Blood by Autom ated count hematocrit [volume fraction] of blood by automated count 37.3 % low: 37.5%h igh: 51% low Hemat ocrit 37.3 (L) 37.5 - 51.0 % 07/04 5:18 AM EDT [employer] ATORY Not Available Not Available 09/01/2024 16:25:59 07/05/19 25 07/04/2024 CBC panel - Blood by Autom ated count MCV [entitic mean volume] in red blood cells by automated count 82.2 fL low: 79fLhi gh: 97fL MCV 82.2 79.0 - 97.0 fL 07/04 5:18 AM EDT [employer] [facility] ATORY Not Available Not Available 09/01/2024 16:25:59 07/05/19 25 07/04/2024 CBC panel - Blood by Autom ated count MCH [entitic mass] by automated count 24.4 pg low: 26.6pg high: 33pg low MCH 24.4 (L) 26.6 - 33.0 pg 07/04 5:18 AM EDT [facility] ATORY Not Available Not Available 09/01/2024 16:25:59 07/05/19 25 07/04/2024 CBC panel - Blood by Autom ated count MCHC [entitic mass/volume] in red blood cells by automated count 29.8 g/dL low: 31.5g/ dLhigh : 35.7g/ dL low MCHC 29.8 (L) 31.5 - 35.7 g/dL 07/04 5:18 AM EDT [facility] ATORY Not Available Not Available 09/01/2024 16:25:59 07/05/19 25 07/04/2024 CBC panel - Blood by Autom ated count erythrocyte [distwidth] in red blood cells by automated count 17.6 % low: 12.3%h igh: 15.4% high RDW 17.6 (H) 12.3 - 15.4 % 07/04 5:18 AM EDT [facility] ATORY Not Available Not Available 09/01/2024 16:25:59 07/05/19 25 07/04/2024 CBC panel - Blood by Autom ated count RDW-SD 51.4 fL low: 37fLhi gh: 54fL RDW-S D 51.4 37.0 - 54.0 fl 07/04 5:18 AM EDT [employer] [facility] LAB[facility] ATORY Not Available Not Available 09/01/2024 16:25:59 07/05/19 25 07/04/2024 CBC panel - Blood by Autom ated count platelet [entitic mean volume] in blood by automated count 8.8 fL low: 6fLhig h: 12fL MPV 8.8 6.0 - 12.0 fL 07/04 5:18 AM EDT [facility] [employer] Lizhi[facility]IL[facility] ATORY Not Available Not Available 09/01/2024 16:25:59 07/05/19 25 07/04/2024 CBC panel - Blood by Autom ated count platelets [#/volume] in blood by automated count 442 10*3/ mm3 low: 22760* 3/mm3h igh: 15070* 3/mm3 Plate lets 442 140 - 450 10*3/ mm3 07/04 5:18 AM EDT [facility] [employer] LizhiLILIAM [facility] ATORY Not Available Not Available [...] - 99 mg/dL 07/04 5:52 AM EDT [facility] [employer] LizhiLILIAM [facility] ATORY Not Available Not Available 09/01/2024 16:25:59 07/05/19 25 07/04/2024 Basic metab olic 2000 panel - Serum or Plasm a urea nitrogen [mass/volume ] in serum or plasma 22 mg/dL low: 8mg/dL high: 23mg/d L BUN 22 8 - 23 mg/dL 07/04 5:52 AM EDT [facility] [employer]IGNON [facility]ILIAM LAB[facility] ATORY Not Available Not Available 09/01/2024 16:25:59 07/05/19 25 07/04/2024 Basic metab olic 2000 panel - Serum or Plasm a creatinine [mass/volume ] in serum or plasma 1.12 mg/dL low: 0.76mg /dLhig h: 1.27mg /dL Creat inine 1.12 0.76 - 1.27 mg/dL 07/04 5:52 AM EDT [employer] [facility] ATORY Not Available Not Available 09/01/2024 16:25:59 07/05/19 25 07/04/2024 Basic metab olic 1999 panel - Serum or Plasm a sodium [moles/volum e] in serum or plasma 133 mmol/ L low: 136mmo l/Lhig h: 145mmo l/L low Sodiu m 133 (L) 136 - 145 mmol/ L 07/04 5:52 AM EDT [facility] ATORY Not Available Not Available 09/01/2024 16:25:59 07/05/19 25 07/04/2024 Basic metab olic 1999 panel - Serum or Plasm a potassium [moles/volum e] in serum or plasma 4.4 mmol/ L low: 3.5mmo l/Lhig h: 5.2mmo l/L Potas sium 4.4 3.5 - 5.2 mmol/ L 07/04 5:52 AM EDT [employer] [facility] ATORY Not Available Not Available 09/01/2024 16:25:59 07/05/19 25 07/04/2024 Basic metab olic 1999 panel - Serum or Plasm a chloride [moles/volum e] in serum or plasma 93 mmol/ L low: 98mmol /Lhigh : 107mmo l/L low Chlor chava 93 (L) 98 - 107 mmol/ L 07/04 5:52 AM EDT [employer] [facility] ATORY Not Available Not Available 09/01/2024 16:25:59 07/05/19 25 07/04/2024 Basic metab olic 1999 panel - Serum or Plasm a carbon dioxide, total [moles/volum e] in serum or plasma 29 mmol/ L low: 22mmol /Lhigh : 29mmol /L CO2 29.0 22.0 - 29.0 mmol/ L 07/04 5:52 AM EDT [facility] ATORY Not Available Not Available 09/01/2024 16:25:59 07/05/1907/04/2024 Basic metab olic 2000 panel - Serum or Plasm a calcium [moles/volum e] in specimen 9.3 mg/dL low: 8.6mg/ dLhigh : 10.5mg /dL Calci um 9.3 8.6 - 10.5 mg/dL 07/04 5:52 AM EDT [facility] ATORY Not Available Not Available 09/01/2024 16:25:59 07/05/19 25 07/04/2024 Basic metab olic 1999 panel - Serum or Plasm a urea nitrogen/cre atinine [mass ratio] in serum or plasma 19.6 low: 7high: 25 BUN/C reati nine Ratio 19.6 7.0 - 25.0 07/04 5:52 AM EDT [facility] ATORY Not Available Not Available 09/01/2024 16:25:59 07/05/19 25 07/04/2024 Basic metab olic 1999 panel - Serum or Plasm a anion gap in serum or plasma by calculated.3 ions 11 mmol/ L low: 5mmol/ Lhigh: 15mmol /L Anion Gap 11.0 5.0 - 15.0 mmol/ L 07/04 5:52 AM EDT [facility] ATORY Not Available Not Available 09/01/2024 16:25:59 07/05/19 25 07/04/2024 Basic KupiVIP olic 2000 panel - Serum or Plasm a glomerular filtration rate [volume rate/area] in serum, plasma or blood by creatinine-b ased formula (CKD-epi 2020)/1.73 sq M 73.8 mL/mi n/1.7 3 low: 60mL/m in/1.7 3 eGFR 73.8 >60.0 mL/mi n/1.7 3 07/04 5:52 AM EDT [facility] ATORY Not Available Not Available 09/01/2024 16:25:59 [...] - 130 mg/dL 07/05 7:38 AM EDT [facility] ATORY Not Available Not Available 09/01/2024 16:25:59 [...] 10.80 10*3/ mm3 07/05 5:00 AM EDT [facility] ATORY Not Available Not Available 09/01/2024 16:25:59 07/06/19 25 07/05/2024 CBC panel - Blood by Autom ated count erythrocytes [#/volume] in blood by automated count 4.52 10*6/ mm3 low: 4.1410 *6/mm3 high: 5.810* 6/mm3 RBC 4.52 4.14 - 5.80 10*6/ mm3 07/05 5:00 AM EDT [facility] ATORY Not Available Not Available 09/01/2024 16:25:59 07/06/19 25 07/05/2024 CBC panel - Blood by Autom ated count hemoglobin [mass/volume ] in blood 11.2 g/dL low: 13g/dL high: 17.7g/ dL low Hemog lobin 11.2 (L) 13.0 - 17.7 g/dL 07/05 5:00 AM EDSpiceCSM [employer] ATORY Not Available Not Available 09/01/2024 16:25:59 07/06/1907/05/2024 CBC panel - Blood by Autom ated count hematocrit [volume fraction] of blood by automated count 36.7 % low: 37.5%h igh: 51% low Hemat ocrit 36.7 (L) 37.5 - 51.0 % 07/05 5:00 AM [employer] ATORY Not Available Not Available 09/01/2024 16:25:59 07/06/1907/05/2024 CBC panel - Blood by Autom ated count MCV [entitic mean volume] in red blood cells by automated count 81.2 fL low: 79fLhi gh: 97fL MCV 81.2 79.0 - 97.0 fL 07/05 5:00 AM [employer] [facility] [employer] ATORY Not Available Not Available 09/01/2024 16:25:59 07/06/19 25 07/05/2024 CBC panel - Blood by Autom ated count MCH [entitic mass] by automated count 24.8 pg low: 26.6pg high: 33pg low MCH 24.8 (L) 26.6 - 33.0 pg 07/05 5:00 AM [employer] [facility] [employer] ATORY Not Available Not Available 09/01/2024 16:25:59 07/06/1907/05/2024 CBC panel - Blood by Autom ated count MCHC [entitic mass/volume] in red blood cells by automated count 30.5 g/dL low: 31.5g/ dLhigh : 35.7g/ dL low MCHC 30.5 (L) 31.5 - 35.7 g/dL 07/05 5:00 AM [employer] ATORY Not Available Not Available 09/01/2024 16:25:59 07/06/1907/05/2024 CBC panel - Blood by Autom ated count erythrocyte [distwidth] in red blood cells by automated count 18 % low: 12.3%h igh: 15.4% high RDW 18.0 (H) 12.3 - 15.4 % 07/05 5:00 AM EDT [employer] [facility] [employer] ATORY Not Available Not Available 09/01/2024 16:25:59 07/06/1907/05/2024 CBC panel - Blood by Autom ated count RDW-SD 50.7 fL low: 37fLhi gh: 54fL RDW-S D 50.7 37.0 - 54.0 fl 07/05 5:00 AM EDT [employer] [facility] [employer] ATORY Not Available Not Available 09/01/2024 16:25:59 07/06/1907/05/2024 CBC panel - Blood by Autom ated count platelet [entitic mean volume] in blood by automated count 9 fL low: 6fLhig h: 12fL MPV 9.0 6.0 - 12.0 fL 07/05 5:00 AM EDT [employer] [facility] [employer] ATORY Not Available Not Available 09/01/2024 16:25:59 07/06/1907/05/2024 CBC panel - Blood by Autom ated count platelets [#/volume] in blood by automated count 395 10*3/ mm3 low: 12900* 3/mm3h igh: 53413* 3/mm3 Plate lets 395 140 - 450 10*3/ mm3 07/05 5:00 AM EDT [employer] [facility] [employer] ATORY Not Available Not Available 09/01/2024 16:25:59 [...] 65 - 99 mg/dL 07/05 5:42 AM [facility] [employer]IGNON LILIAM [facility] ATORY Not Available Not Available 09/01/2024 16:25:59 07/06/19 25 07/05/2024 Basic metab olic 1999 panel - Serum or Plasm a urea nitrogen [mass/volume ] in serum or plasma 21 mg/dL low: 8mg/dL high: 23mg/d L BUN 21 8 - 23 mg/dL 07/05 5:42 AM EDT [facility] SANGE[employer]HA LILIAM [facility] ATORY Not Available Not Available 09/01/2024 16:25:59 07/06/1907/05/2024 Basic metab olic 1999 panel - Serum or Plasm a creatinine [mass/volume ] in serum or plasma 1.18 mg/dL low: 0.76mg /dLhig h: 1.27mg /dL Creat inine 1.18 0.76 - 1.27 mg/dL 07/05 5:42 AM EDT [facility] [employer] ATORY Not Available Not Available 09/01/2024 16:25:59 07/06/1907/05/2024 Basic metab olic 1999 panel - Serum or Plasm a sodium [moles/volum e] in serum or plasma 140 mmol/ L low: 136mmo l/Lhig h: 145mmo l/L Sodiu m 140 136 - 145 mmol/ L 07/05 5:42 AM EDT [facility] [employer] LILIAM [facility] ATORY Not Available Not Available 09/01/2024 16:25:59 07/06/1907/05/2024 Basic metab olic 1999 panel - Serum or Plasm a potassium [moles/volum e] in serum or plasma 3.9 mmol/ L low: 3.5mmo l/Lhig h: 5.2mmo l/L Potas sium 3.9 3.5 - 5.2 mmol/ L 07/05 5:42 AM EDT [facility] [employer]ON LILIAM [facility] ATORY Not Available Not Available 09/01/2024 16:25:59 07/06/19 25 07/05/2024 Basic metab olic 1999 panel - Serum or Plasm a chloride [moles/volum e] in serum or plasma 97 mmol/ L low: 98mmol /Lhigh : 107mmo l/L low Chlor chava 97 (L) 98 - 107 mmol/ L 07/05 5:42 AM EDT [employer] ATORY Not Available Not Available 09/01/2024 16:25:59 07/06/1907/05/2024 Basic metab olic 2000 panel - Serum or Plasm a carbon dioxide, total [moles/volum e] in serum or plasma 31 mmol/ L low: 22mmol /Lhigh : 29mmol /L high CO2 31.0 (H) 22.0 - 29.0 mmol/ L 07/05 5:42 AM EDT [employer] [facility] LABOR ATORY Not Available Not Available 09/01/2024 16:25:59 07/06/1907/05/2024 Basic metab olic 2000 panel - Serum or Plasm a calcium [moles/volum e] in specimen 8.9 mg/dL low: 8.6mg/ dLhigh : 10.5mg /dL Calci um 8.9 8.6 - 10.5 mg/dL 07/05 5:42 AM EDT [employer] [facility] ATORY Not Available Not Available 09/01/2024 16:25:59 07/06/1907/05/2024 Basic [facility] olic 2000 panel - Serum or Plasm a urea nitrogen/cre atinine [mass ratio] in serum or plasma 17.8 low: 7high: 25 BUN/C reati nine Ratio 17.8 7.0 - 25.0 07/05 5:42 AM EDT [facility] ATORY Not Available Not Available 09/01/2024 16:25:59 07/06/1907/05/2024 Basic metab olic 2000 panel - Serum or Plasm a anion gap in serum or plasma by calculated.3 ions 12 mmol/ L low: 5mmol/ Lhigh: 15mmol /L Anion Gap 12.0 5.0 - 15.0 mmol/ L 07/05 5:42 AM EDT [employer] [facility] ATORY Not Available Not Available 09/01/2024 [...] - 130 mg/dL 07/06 8:43 AM EDT [employer] [facility] ATORY Not Available Not Available 09/01/2024 [...] 10.80 10*3/ mm3 07/06 5:22 AM EDT [facility] ATORY Not Available Not Available 09/01/2024 16:25:59 07/07/1907/06/2024 CBC panel - Blood by Autom ated count erythrocytes [#/volume] in blood by automated count 4.62 10*6/ mm3 low: 4.1410 *6/mm3 high: 5.810* 6/mm3 RBC 4.62 4.14 - 5.80 10*6/ mm3 07/06 5:22 AM EDT [facility] ATORY Not Available Not Available 09/01/2024 16:25:59 07/07/1907/06/2024 CBC panel - Blood by Autom ated count hemoglobin [mass/volume ] in blood 11.1 g/dL low: 13g/dL high: 17.7g/ dL low Hemog lobin 11.1 (L) 13.0 - 17.7 g/dL 07/06 5:22 AM EDT [employer] [facility] [employer] ATORY Not Available Not Available 09/01/2024 16:25:59 07/07/1907/06/2024 CBC panel - Blood by Autom ated count hematocrit [volume fraction] of blood by automated count 37.5 % low: 37.5%h igh: 51% Hemat ocrit 37.5 37.5 - 51.0 % 07/06 5:22 AM EDT [employer] [facility] [employer] ATORY Not Available Not Available 09/01/2024 16:25:59 07/07/1907/06/2024 CBC panel - Blood by Autom ated count MCV [entitic mean volume] in red blood cells by automated count 81.2 fL low: 79fLhi gh: 97fL MCV 81.2 79.0 - 97.0 fL 07/06 5:22 AM EDGiftbar [employer] [facility] [employer] ATORY Not Available Not Available 09/01/2024 16:25:59 07/07/1907/06/2024 CBC panel - Blood by Autom ated count MCH [entitic mass] by automated count 24 pg low: 26.6pg high: 33pg low MCH 24.0 (L) 26.6 - 33.0 pg 07/06 5:22 AM [facility]bar[facility] [employer] ATORY Not Available Not Available 09/01/2024 16:25:59 07/07/1907/06/2024 CBC panel - Blood by Autom ated count MCHC [entitic mass/volume] in red blood cells by automated count 29.6 g/dL low: 31.5g/ dLhigh : 35.7g/ dL low MCHC 29.6 (L) 31.5 - 35.7 g/dL 07/06 5:22 AM EDT [employer] [facility] [employer] ATORY Not Available Not Available 09/01/2024 16:25:59 07/07/1907/06/2024 CBC panel - Blood by Autom ated count erythrocyte [distwidth] in red blood cells by automated count 18.1 % low: 12.3%h igh: 15.4% high RDW 18.1 (H) 12.3 - 15.4 % 07/06 5:22 AM EDT [facility] ATORY Not Available Not Available 09/01/2024 16:25:59 07/07/19 25 07/06/2024 CBC panel - Blood by Autom ated count RDW-SD 52.5 fL low: 37fLhi gh: 54fL RDW-S D 52.5 37.0 - 54.0 fl 07/06 5:22 AM EDT [facility] ATORY Not Available Not Available 09/01/2024 16:25:59 07/07/19 25 07/06/2024 CBC panel - Blood by Autom ated count platelet [entitic mean volume] in blood by automated count 9.1 fL low: 6fLhig h: 12fL MPV 9.1 6.0 - 12.0 fL 07/06 5:22 AM EDT [facility] ATORY Not Available Not Available 09/01/2024 16:25:59 07/07/1907/06/2024 CBC panel - Blood by Autom ated count platelets [#/volume] in blood by automated count 454 10*3/ mm3 low: 99649* 3/mm3h igh: 71856* 3/mm3 high Plate lets 454 (H) 140 - 450 10*3/ mm3 07/06 5:22 AM EDT [facility] ATORY Not Available Not Available 09/01/2024 16:25:59 [...] - 99 mg/dL 07/06 5:45 AM EDT [facility] ATORY Not Available Not Available 09/01/2024 16:25:59 07/07/19 25 07/06/2024 Basic metab olic 1999 panel - Serum or Plasm a urea nitrogen [mass/volume ] in serum or plasma 23 mg/dL low: 8mg/dL high: 23mg/d L BUN 23 8 - 23 mg/dL 07/06 5:45 AM EDT [employer] LABOR ATORY Not Available Not Available 09/01/2024 16:25:59 07/07/19 25 07/06/2024 Basic metab olic 1999 panel - Serum or Plasm a creatinine [mass/volume ] in serum or plasma 1.26 mg/dL low: 0.76mg /dLhig h: 1.27mg /dL Creat inine 1.26 0.76 - 1.27 mg/dL 07/06 5:45 AM EDT [employer] [facility] ATORY Not Available Not Available 09/01/2024 16:25:59 07/07/19 25 07/06/2024 Basic metab olic 1999 panel - Serum or Plasm a sodium [moles/volum e] in serum or plasma 135 mmol/ L low: 136mmo l/Lhig h: 145mmo l/L low Sodiu m 135 (L) 136 - 145 mmol/ L 07/06 5:45 AM EDT [employer] [facility] ATORY Not Available Not Available 09/01/2024 16:25:59 07/07/19 25 07/06/2024 Basic metab olic 1999 panel - Serum or Plasm a potassium [moles/volum e] in serum or plasma 3.9 mmol/ L low: 3.5mmo l/Lhig h: 5.2mmo l/L Potas sium 3.9 3.5 - 5.2 mmol/ L 07/06 5:45 AM EDT [employer] [facility] LABOR ATORY Not Available Not Available 09/01/2024 16:25:59 07/07/19 25 07/06/2024 Basic metab olic 1999 panel - Serum or Plasm a chloride [moles/volum e] in serum or plasma 90 mmol/ L low: 98mmol /Lhigh : 107mmo l/L low Chlor chava 90 (L) 98 - 107 mmol/ L 07/06 5:45 AM EDT [employer] [facility] LAB[facility] ATORY Not Available Not Available 09/01/2024 16:25:59 07/07/1907/06/2024 Basic metab olic 1999 panel - Serum or Plasm a carbon dioxide, total [moles/volum e] in serum or plasma 30 mmol/ L low: 22mmol /Lhigh : 29mmol /L high CO2 30.0 (H) 22.0 - 29.0 mmol/ L 07/06 5:45 AM EDT [employer] [facility] ATORY Not Available Not Available 09/01/2024 16:25:59 07/07/1907/06/2024 Basic [facility] olic 1999 panel - Serum or Plasm a calcium [moles/volum e] in specimen 8.9 mg/dL low: 8.6mg/ dLhigh : 10.5mg /dL Calci um 8.9 8.6 - 10.5 mg/dL 07/06 5:45 AM EDT [employer] [facility] ATORY Not Available Not Available 09/01/2024 16:25:59 07/07/1907/06/2024 Basic [facility] olic 2000 panel - Serum or Plasm a urea nitrogen/cre atinine [mass ratio] in serum or plasma 18.3 low: 7high: 25 BUN/C reati nine Ratio 18.3 7.0 - 25.0 07/06 5:45 AM EDT [employer] [facility] ATORY Not Available Not Available 09/01/2024 16:25:59 07/07/19 25 07/06/2024 Basic metab olic 1999 panel - Serum or Plasm a anion gap in serum or plasma by calculated.3 ions 15 mmol/ L low: 5mmol/ Lhigh: 15mmol /L Anion Gap 15.0 5.0 - 15.0 mmol/ L 07/06 5:45 AM EDT [employer] [facility] ATORY Not Available Not Available 09/01/2024 [...] - 130 mg/dL 07/07 11:34 AM EDT [employer] [facility] LAB[facility] ATORY Not Available Not Available 09/01/2024 [...] - 130 mg/dL 07/07 7:24 AM EDT [employer] [facility] ATORY Not Available Not Available 09/01/2024 [...] - 99 mg/dL 07/07 5:17 AM EDT [employer] [facility] ATORY Not Available Not Available 09/01/2024 16:26:00 07/08/19 25 07/07/2024 Basic metab olic 2000 panel - Serum or Plasm a urea nitrogen [mass/volume ] in serum or plasma 25 mg/dL low: 8mg/dL high: 23mg/d L high BUN 25 (H) 8 - 23 mg/dL 07/07 5:17 AM EDT [employer] [facility] ATORY Not Available Not Available 09/01/2024 16:26:00 07/08/1907/07/2024 Basic metab olic 1999 panel - Serum or Plasm a creatinine [mass/volume ] in serum or plasma 1.19 mg/dL low: 0.76mg /dLhig h: 1.27mg /dL Creat inine 1.19 0.76 - 1.27 mg/dL 07/07 5:17 AM EDT [employer] [facility] ATORY Not Available Not Available 09/01/2024 16:26:00 07/08/1907/07/2024 Basic metab olic 1999 panel - Serum or Plasm a sodium [moles/volum e] in serum or plasma 137 mmol/ L low: 136mmo l/Lhig h: 145mmo l/L Sodiu m 137 136 - 145 mmol/ L 07/07 5:17 AM EDT [employer] [facility] ATORY Not Available Not Available 09/01/2024 16:26:00 07/08/1907/07/2024 Basic metab olic 1999 panel - Serum or Plasm a potassium [moles/volum e] in serum or plasma 3.6 mmol/ L low: 3.5mmo l/Lhig h: 5.2mmo l/L Potas sium 3.6 3.5 - 5.2 mmol/ L 07/07 5:17 AM EDT [employer] [facility] ATORY Not Available Not Available 09/01/2024 16:26:00 07/08/1907/07/2024 Basic metab olic 1999 panel - Serum or Plasm a chloride [moles/volum e] in serum or plasma 91 mmol/ L low: 98mmol /Lhigh : 107mmo l/L low Chlor chava 91 (L) 98 - 107 mmol/ L 07/07 5:17 AM EDT [employer] [facility] ATORY Not Available Not Available 09/01/2024 16:26:00 07/08/1907/07/2024 Basic metab olic 1999 panel - Serum or Plasm a carbon dioxide, total [moles/volum e] in serum or plasma 34 mmol/ L low: 22mmol /Lhigh : 29mmol /L high CO2 34.0 (H) 22.0 - 29.0 mmol/ L 07/07 5:17 AM EDT [employer] [facility] Not Available Not Available 09/01/2024 16:26:00 07/08/1907/07/2024 Basic metab olic 1999 panel - Serum or Plasm a calcium [moles/volum e] in specimen 9 mg/dL low: 8.6mg/ dLhigh : 10.5mg /dL Calci um 9.0 8.6 - 10.5 mg/dL 07/07 5:17 AM EDT [facility] [employer] [facility] ATORY Not Available Not Available 09/01/2024 16:26:00 07/08/1907/07/2024 Basic metab olic 1999 panel - Serum or Plasm a urea nitrogen/cre atinine [mass ratio] in serum or plasma 21 low: 7high: 25 BUN/C reati nine Ratio 21.0 7.0 - 25.0 07/07 5:17 AM EDT [facility] [employer] [facility] ATORY Not Available Not Available 09/01/2024 16:26:00 07/08/1907/07/2024 Basic metab olic 1999 panel - Serum or Plasm a anion gap in serum or plasma by calculated.3 ions 12 mmol/ L low: 5mmol/ Lhigh: 15mmol /L Anion Gap 12.0 5.0 - 15.0 mmol/ L 07/07 5:17 AM EDT [employer] [facility] [employer] [facility] ATORY Not Available Not Available 09/01/2024 16:26:00 [...] mg/dL 08/18 8:[address] [facility] Not Available [...] L 08/18 3:[address] [facility] Not Available Not [...] 10.80 10*3/ mm3 08/18 2:32 PM EDT [employer] LABOR AT[facility] Not Available Not Available 09/01/2024 16:24:23 08/19/19 25 08/18/2024 CBC W Diffe renti al panel , metho d unspe cifie d - Blood erythrocytes [#/volume] in blood by automated count 3.9 10*6/ mm3 low: 4.1410 *6/mm3 high: 5.810* 6/mm3 low RBC 3.90 (L) 4.14 - 5.80 10*6/ mm3 08/18 2:32 PM EDT [facility] Not Available Not Available 09/01/2024 16:24:23 08/19/19 25 08/18/2024 CBC W Diffe renti al panel , metho d unspe cifie d - Blood hemoglobin [mass/volume ] in blood 9.3 g/dL low: 13g/dL high: 17.7g/ dL low Hemog lobin 9.3 (L) 13.0 - 17.7 g/dL 08/18 2:32 PM EDT [facility] Not Available Not Available 09/01/2024 16:24:23 08/19/19 25 08/18/2024 CBC W Diffe renti al panel , metho d unspe cifie d - Blood hematocrit [volume fraction] of blood by automated count 30.4 % low: 37.5%h igh: 51% low Hemat ocrit 30.4 (L) 37.5 - 51.0 % 08/18 2:32 PM EDT [facility] [employer] [facility] Not Available Not Available 09/01/2024 16:24:23 08/19/19 25 08/18/2024 CBC W Diffe renti al panel , metho d unspe cifie d - Blood MCV [entitic mean volume] in red blood cells by automated count 77.9 fL low: 79fLhi gh: 97fL low MCV 77.9 (L) 79.0 - 97.0 fL 08/18 2:32 PM EDT [facility] [employer] ATORY Not Available Not Available 09/01/2024 16:24:23 08/19/19 25 08/18/2024 CBC W Diffe renti al panel , metho d unspe cifie d - Blood MCH [entitic mass] by automated count 23.8 pg low: 26.6pg high: 33pg low MCH 23.8 (L) 26.6 - 33.0 pg 08/18 2:32 PM EDT [facility] [employer] [facility] [employer] ATORY Not Available Not Available 09/01/2024 16:24:23 08/19/19 25 08/18/2024 CBC W Diffe renti al panel , metho d unspe cifie d - Blood MCHC [entitic mass/volume] in red blood cells by automated count 30.6 g/dL low: 31.5g/ dLhigh : 35.7g/ dL low MCHC 30.6 (L) 31.5 - 35.7 g/dL 08/18 2:32 PM EDT [employer] [facility] [employer] ATORY Not Available Not Available 09/01/2024 16:24:23 08/19/19 25 08/18/2024 CBC W Diffe renti al panel , metho d unspe cifie d - Blood erythrocyte [distwidth] in red blood cells by automated count 17.2 % low: 12.3%h igh: 15.4% high RDW 17.2 (H) 12.3 - 15.4 % 08/18 2:32 PM EDT [employer] [facility] [employer] LABOR ATORY Not Available Not Available 09/01/2024 16:24:23 08/19/19 25 08/18/2024 CBC W Diffe renti al panel , metho d unspe cifie d - Blood RDW-SD 48.5 fL low: 37fLhi gh: 54fL RDW-S D 48.5 37.0 - 54.0 fl 08/18 2:32 PM EDT [employer] [employer] LABOR ATORY Not Available Not Available 09/01/2024 16:24:23 08/19/19 25 08/18/2024 CBC W Diffe josé al panel , metho d unspe cifie d - Blood platelet [entitic mean volume] in blood by automated count 8.8 fL low: 6fLhig h: 12fL MPV 8.8 6.0 - 12.0 fL 08/18 2:32 PM EDT [employer] [facility] [employer] LABOR ATORY Not Available Not Available 09/01/2024 16:24:23 08/19/19 25 08/18/2024 CBC W Diffe josé al panel , metho d unspe cifie d - Blood platelets [#/volume] in blood by automated count 405 10*3/ mm3 low: 33010* 3/mm3h igh: 81653* 3/mm3 Plate lets 405 140 - 450 10*3/ mm3 08/18 2:32 PM EDT [employer] [facility] [employer] LABOR ATORY Not Available Not Available 09/01/2024 16:24:23 08/19/19 25 08/18/2024 CBC W Diffe renti al panel , metho d unspe cifie d - Blood neutrophils/ leukocytes in blood by automated count 80.6 % low: 42.7%h igh: 76% high Neutr ophil % 80.6 (H) 42.7 - 76.0 % 08/18 2:[address] [employer] [facility] [employer] ATORY Not Available Not Available 09/01/2024 16:24:23 08/19/19 25 08/18/2024 CBC W Diffe renti al panel , metho d unspe cifie d - Blood lymphocytes/ leukocytes in blood by automated count 11 % low: 19.6%h igh: 45.3% low Lymph ocyte % 11.0 (L) 19.6 - 45.3 % 08/18 2:32 PM EDT [facility] [employer] [employer] ATORY Not Available Not Available 09/01/2024 16:24:23 08/19/19 25 08/18/2024 CBC W Diffe renti al panel , metho d unspe cifie d - Blood monocytes/le ukocytes in blood by automated count 6.6 % low: 5%high : 12% Monoc yte % 6.6 5.0 - 12.0 % 08/18 2:32 PM EDT [facility] [employer] ATORY Not Available Not Available 09/01/2024 16:24:23 08/19/19 25 08/18/2024 CBC W Diffe renti al panel , metho d unspe cifie d - Blood eosinophils/ leukocytes in blood by automated count 0.7 % low: 0.3%hi gh: 6.2% Eosin ophil % 0.7 0.3 - 6.2 % 08/18 2:32 PM EDT [facility] [employer] [employer] ATORY Not Available Not Available 09/01/2024 16:24:23 08/19/19 25 08/18/2024 CBC W Diffe renti al panel , metho d unspe cifie d - Blood basophils/le ukocytes in blood by automated count 0.4 % low: 0%high : 1.5% Basop hil % 0.4 0.0 - 1.5 % 08/18 2:32 PM EDT [facility] [employer] [facility] Not Available Not Available 09/01/2024 16:24:23 08/19/19 25 08/18/2024 CBC W Diffe renti al panel , metho d unspe cifie d - Blood immature granulocytes /leukocytes in blood by automated count 0.7 % low: 0%high : 0.5% high Immat ure Grans % 0.7 (H) 0.0 - 0.5 % 08/18 2:32 PM EDT [employer] ATORY Not Available Not Available 09/01/2024 16:24:23 08/19/19 25 08/18/2024 CBC W Diffe renti al panel , metho d unspe cifie d - Blood neutrophils/ leukocytes in blood by automated count 9.2 10*3/ mm3 low: 1.710* 3/mm3h igh: 710*3/ mm3 high Neutr ophil s, Absol gambell 9.20 (H) 1.70 - 7.00 10*3/ mm3 08/18 2:32 PM EDT [facility] [employer] ATORY Not Available Not Available 09/01/2024 16:24:23 08/19/19 25 08/18/2024 CBC W Diffe renti al panel , metho d unspe cifie d - Blood lymphocytes [#/volume] in blood by automated count 1.26 10*3/ mm3 low: 0.710* 3/mm3h igh: 3.110* 3/mm3 Lymph ocyte s, Absol gambell 1.26 0.70 - 3.10 10*3/ mm3 08/18 2:32 PM EDT [facility] [employer] LAB[facility] ATORY Not Available Not Available 09/01/2024 16:24:23 08/19/19 25 08/18/2024 CBC W Diffe renti al panel , metho d unspe cifie d - Blood monocytes [#/volume] in blood by automated count 0.75 10*3/ mm3 low: 0.110* 3/mm3h igh: 0.910* 3/mm3 Monoc ytes, Absol gambell 0.75 0.10 - 0.90 10*3/ mm3 08/18 2:32 PM EDT [facility] [employer] ATORY Not Available Not Available 09/01/2024 16:24:23 08/19/19 25 08/18/2024 CBC W Diffe renti al panel , metho d unspe cifie d - Blood eosinophils [#/volume] in blood by automated count 0.08 10*3/ mm3 low: 010*3/ mm3hig h: 0.410* 3/mm3 Eosin ophil s, Absol gambell 0.08 0.00 - 0.40 10*3/ mm3 08/18 2:32 PM EDT [employer] [facility] ATORY Not Available Not Available 09/01/2024 16:24:23 08/19/19 25 08/18/2024 CBC W Diffe renti al panel , metho d unspe cifie d - Blood basophils [#/volume] in blood by automated count 0.04 10*3/ mm3 low: 010*3/ mm3hig h: 0.210* 3/mm3 Basop hils, Absol gambell 0.04 0.00 - 0.20 10*3/ mm3 08/18 2:32 PM EDT [facility] [employer] LAB[facility] ATORY Not Available Not Available 09/01/2024 16:24:23 08/19/19 25 08/18/2024 CBC W Diffe renti al panel , metho d unspe cifie d - Blood immature granulocytes [#/volume] in blood by automated count 0.08 10*3/ mm3 low: 010*3/ mm3hig h: 0.0510 *3/mm3 high Immat ure Grans , Absol gambell 0.08 (H) 0.00 - 0.05 10*3/ mm3 08/18 2:32 PM EDT [facility] [employer] LAB[facility] ATORY Not Available Not Available 09/01/2024 16:24:23 08/19/19 25 08/18/2024 CBC W Diffe renti al panel , metho d unspe cifie d - Blood nucleated erythrocytes /leukocytes [ratio] in blood by automated count 0.4 text: 0.0 - 0.2 /100 WBC high nRBC 0.4 (H) 0.0 - 0.2 /100 WBC 08/18 2:32 PM EDT [facility] [employer] [facility] ATORY Not Available Not Available 09/01/2024 [...] Negat minh <300 50-75 Posit minh >900 Mca 300-9 00 Negat minh <300 >75 Posit [...] avail able. Refer to http: //[email or web address] [email or web address] m [place] [...] than 80% defin es a negat minh manzaanres e in PCT resul t repre senti [...] 2.0 mmol/ L 08/18 1:21 PM EDT [facility] [employer] AT[facility] Not Available Not Available 09/01/2024 16:24:23 [...] 10.80 10*3/ mm3 08/18 1:00 PM EDT [facility] [employer] ATORY Not Available Not Available 09/01/2024 16:24:23 08/19/19 25 08/18/2024 CBC W Diffe renti al panel , metho d unspe cifie d - Blood erythrocytes [#/volume] in blood by automated count 3.94 10*6/ mm3 low: 4.1410 *6/mm3 high: 5.810* 6/mm3 low RBC 3.94 (L) 4.14 - 5.80 10*6/ mm3 08/18 1:00 PM EDT [facility] [employer] AT[facility] Not Available Not Available 09/01/2024 16:24:23 08/19/19 25 08/18/2024 CBC W Diffe renti al panel , metho d unspe cifie d - Blood hemoglobin [mass/volume ] in blood 9.1 g/dL low: 13g/dL high: 17.7g/ dL low Hemog lobin 9.1 (L) 13.0 - 17.7 g/dL 08/18 1:00 PM EDT [facility] [employer] [facility] Not Available Not Available 09/01/2024 16:24:23 08/19/19 25 08/18/2024 CBC W Diffe renti al panel , metho d unspe cifie d - Blood hematocrit [volume fraction] of blood by automated count 30.8 % low: 37.5%h igh: 51% low Hemat ocrit 30.8 (L) 37.5 - 51.0 % 08/18 1:00 PM EDT [employer] [facility] [employer] AT[facility] Not Available Not Available 09/01/2024 16:24:23 08/19/19 25 08/18/2024 CBC W Diffe renti al panel , metho d unspe cifie d - Blood MCV [entitic mean volume] in red blood cells by automated count 78.2 fL low: 79fLhi gh: 97fL low MCV 78.2 (L) 79.0 - 97.0 fL 08/18 1:00 PM EDT [employer] [employer] ATORY Not Available Not Available 09/01/2024 16:24:23 08/19/19 25 08/18/2024 CBC W Diffe renti al panel , metho d unspe cifie d - Blood MCH [entitic mass] by automated count 23.1 pg low: 26.6pg high: 33pg low MCH 23.1 (L) 26.6 - 33.0 pg 08/18 1:00 PM EDT [employer] [employer] ATORY Not Available Not Available 09/01/2024 16:24:23 08/19/19 25 08/18/2024 CBC W Diffe renti al panel , metho d unspe cifie d - Blood MCHC [entitic mass/volume] in red blood cells by automated count 29.5 g/dL low: 31.5g/ dLhigh : 35.7g/ dL low MCHC 29.5 (L) 31.5 - 35.7 g/dL 08/18 1:00 PM EDT [employer] [employer] ATORY Not Available Not Available 09/01/2024 16:24:23 08/19/19 25 08/18/2024 CBC W Diffe renti al panel , metho d unspe cifie d - Blood erythrocyte [distwidth] in red blood cells by automated count 17.2 % low: 12.3%h igh: 15.4% high RDW 17.2 (H) 12.3 - 15.4 % 08/18 1:00 PM EDT [employer] [facility] [employer] ATORY Not Available Not Available 09/01/2024 16:24:23 08/19/19 25 08/18/2024 CBC W Diffe michaelti al panel , metho d unspe cifie d - Blood RDW-SD 48.8 fL low: 37fLhi gh: 54fL RDW-S D 48.8 37.0 - 54.0 fl 08/18 1:00 PM EDT [facility] [employer] AT[facility] Not Available Not Available 09/01/2024 16:24:23 08/19/19 25 08/18/2024 CBC W Diffe josé al panel , metho d unspe cifie d - Blood platelet [entitic mean volume] in blood by automated count 8.7 fL low: 6fLhig h: 12fL MPV 8.7 6.0 - 12.0 fL 08/18 1:00 PM EDT [employer] [employer] ATORY Not Available Not Available 09/01/2024 16:24:23 08/19/19 25 08/18/2024 CBC W Diffe josé al panel , metho d unspe cifie d - Blood platelets [#/volume] in blood by automated count 403 10*3/ mm3 low: 10376* 3/mm3h igh: 08533* 3/mm3 Plate lets 403 140 - 450 10*3/ mm3 08/18 1:00 PM EDT [employer] [employer] ATORY Not Available Not Available 09/01/2024 16:24:23 08/19/19 25 08/18/2024 CBC W Diffe renashlie al panel , metho d unspe cifie d - Blood neutrophils/ leukocytes in blood by automated count 79.5 % low: 42.7%h igh: 76% high Neutr ophil % 79.5 (H) 42.7 - 76.0 % 08/18 1:00 PM EDT [facility] [employer] [facility] ATORY Not Available Not Available 09/01/2024 16:24:23 08/19/19 25 08/18/2024 CBC W Diffe renti al panel , metho d unspe cifie d - Blood lymphocytes/ leukocytes in blood by automated count 11.9 % low: 19.6%h igh: 45.3% low Lymph ocyte % 11.9 (L) 19.6 - 45.3 % 08/18 1:00 PM EDT [facility] [employer] [facility] ATORY Not Available Not Available 09/01/2024 16:24:23 08/19/19 25 08/18/2024 CBC W Diffe renti al panel , metho d unspe cifie d - Blood monocytes/le ukocytes in blood by automated count 6.9 % low: 5%high : 12% Monoc yte % 6.9 5.0 - 12.0 % 08/18 1:00 PM EDT [facility] [employer] [facility] ATORY Not Available Not Available 09/01/2024 16:24:23 08/19/19 25 08/18/2024 CBC W Diffe renti al panel , metho d unspe cifie d - Blood eosinophils/ leukocytes in blood by automated count 0.8 % low: 0.3%hi gh: 6.2% Eosin ophil % 0.8 0.3 - 6.2 % 08/18 1:00 PM EDT [facility] [employer] [facility] ATORY Not Available Not Available 09/01/2024 16:24:23 08/19/19 25 08/18/2024 CBC W Diffe renti al panel , metho d unspe cifie d - Blood basophils/le ukocytes in blood by automated count 0.2 % low: 0%high : 1.5% Basop hil % 0.2 0.0 - 1.5 % 08/18 1:00 PM EDT [facility] [employer] LAB[facility] ATORY Not Available Not Available 09/01/2024 16:24:23 08/19/19 25 08/18/2024 CBC W Diffe renti al panel , metho d unspe cifie d - Blood immature granulocytes /leukocytes in blood by automated count 0.7 % low: 0%high : 0.5% high Immat ure Grans % 0.7 (H) 0.0 - 0.5 % 08/18 1:[address] [employer] LAB[facility] ATORY Not Available Not Available 09/01/2024 16:24:23 08/19/19 25 08/18/2024 CBC W Diffe renti al panel , metho d unspe cifie d - Blood neutrophils/ leukocytes in blood by automated count 8.92 10*3/ mm3 low: 1.710* 3/mm3h igh: 710*3/ mm3 high Neutr ophil s, Absol gambell 8.92 (H) 1.70 - 7.00 10*3/ mm3 08/18 1:00 PM EDT [employer] [facility] ATORY Not Available Not Available 09/01/2024 16:24:23 08/19/19 25 08/18/2024 CBC W Diffe renti al panel , metho d unspe cifie d - Blood lymphocytes [#/volume] in blood by automated count 1.34 10*3/ mm3 low: 0.710* 3/mm3h igh: 3.110* 3/mm3 Lymph ocyte s, Absol gambell 1.34 0.70 - 3.10 10*3/ mm3 08/18 1:00 PM EDT [employer] [facility] ATORY Not Available Not Available 09/01/2024 16:24:23 08/19/19 25 08/18/2024 CBC W Diffe renti al panel , metho d unspe cifie d - Blood monocytes [#/volume] in blood by automated count 0.78 10*3/ mm3 low: 0.110* 3/mm3h igh: 0.910* 3/mm3 Monoc ytes, Absol gambell 0.78 0.10 - 0.90 10*3/ mm3 08/18 1:00 PM EDT [employer] [facility] ATORY Not Available Not Available 09/01/2024 16:24:23 08/19/19 25 08/18/2024 CBC W Diffe renti al panel , metho d unspe cifie d - Blood eosinophils [#/volume] in blood by automated count 0.09 10*3/ mm3 low: 010*3/ mm3hig h: 0.410* 3/mm3 Eosin ophil s, Absol gambell 0.09 0.00 - 0.40 10*3/ mm3 08/18 1:00 PM EDT [facility] [employer] [facility] ATORY Not Available Not Available 09/01/2024 16:24:23 08/19/19 25 08/18/2024 CBC W Diffe renti al panel , metho d unspe cifie d - Blood basophils [#/volume] in blood by automated count 0.02 10*3/ mm3 low: 010*3/ mm3hig h: 0.210* 3/mm3 Basop hils, Absol gambell 0.02 0.00 - 0.20 10*3/ mm3 08/18 1:00 PM EDT [facility] [employer] [facility] Not Available Not Available 09/01/2024 16:24:23 08/19/19 25 08/18/2024 CBC W Diffe renti al panel , metho d unspe cifie d - Blood immature granulocytes [#/volume] in blood by automated count 0.08 10*3/ mm3 low: 010*3/ mm3hig h: 0.0510 *3/mm3 high Immat ure Grans , Absol gambell 0.08 (H) 0.00 - 0.05 10*3/ mm3 08/18 1:00 PM EDT [facility] [employer] [facility] ATORY Not Available Not Available 09/01/2024 16:24:23 08/19/19 25 08/18/2024 CBC W Diffe renti al panel , metho d unspe cifie d - Blood nucleated erythrocytes /leukocytes [ratio] in blood by automated count 0.4 text: 0.0 - 0.2 /100 WBC high nRBC 0.4 (H) 0.0 - 0.2 /100 WBC 08/18 1:00 PM EDT [facility] ATORY Not Available Not [...] - 2.4 mg/dL 08/18 1:35 PM EDT [facility] [employer] [facility] Not Available Not Available 09/01/2024 16:24:23 [...] (H) <22 ng/L 08/18 1:27 PM EDT [facility] [employer] [facility] Not Available Not Available 09/01/2024 16:24:23 [...] 5.0 - 8.0 08/18 1:09 PM EDT [facility] [employer] [facility] ATORY Not Available Not Available 09/01/2024 16:24:23 08/19/19 25 08/18/2024 Urina lysis macro (dips tick) panel - Urine specific gravity of urine by test strip 1.014 low: 1.001h igh: 1.03 Speci fic Gravi ty, UA 1.014 1.001 - 1.030 08/18 1:09 PM EDT [facility] [employer] [facility] ATORY Not Available Not Available 09/01/2024 16:24:23 08/19/19 25 08/18/2024 Urina lysis macro (dips tick) panel - Urine glucose [mass/volume ] in urine by test strip Negati ve text: negati ve Gluco se, UA Negat minh Negat minh 08/18 1:09 PM EDT [facility] [employer] [facility] ATORY Not Available Not Available 09/01/2024 16:24:23 08/19/19 25 08/18/2024 Urina lysis macro (dips tick) panel - Urine ketones [presence] in urine by test strip Negati ve text: negati ve [place] es, UA Negat minh Negat minh 08/18 1:09 PM EDT [facility] [employer] [facility] ATORY Not Available Not Available 09/01/2024 16:24:23 08/19/19 25 08/18/2024 Urina lysis macro (dips tick) panel - Urine bilirubin.to alberto [presence] in urine by test strip Negati ve text: negati ve Bilir ubin, UA Negat minh Negat minh 08/18 1:09 PM EDT [facility] [employer] [facility] ATORY Not Available Not Available 09/01/2024 16:24:23 08/19/19 25 08/18/2024 Urina lysis macro (dips tick) panel - Urine hemoglobin [presence] in urine by automated test strip Negati ve text: negati ve Blood , UA Negat minh Negat minh 08/18 1:09 PM EDT [facility] [employer] [facility] ATORY Not Available Not Available 09/01/2024 16:24:23 08/19/19 25 08/18/2024 Urina lysis macro (dips tick) panel - Urine protein [presence] in urine by test strip Trace text: negati ve abnormal Prote in, UA Trace (A) Negat minh 08/18 1:09 PM EDT [facility] [employer] LAB[facility] ATORY Not Available Not Available 09/01/2024 16:24:23 08/19/19 25 08/18/2024 Urina lysis macro (dips tick) panel - Urine leukocyte esterase [presence] in urine by automated test strip Trace text: negati ve abnormal Leuk Kacey ase, UA Trace (A) Negat minh 08/18 1:09 PM EDT [facility] [employer] [facility] ATORY Not Available Not Available 09/01/2024 16:24:23 08/19/19 25 08/18/2024 Urina lysis macro (dips tick) panel - Urine nitrite [presence] in urine by test strip Negati ve text: negati ve Nitri te, UA Negat minh Negat minh 08/18 1:09 PM EDT [facility] [employer] [facility] ATORY Not Available Not Available 09/01/2024 16:24:23 08/19/19 25 08/18/2024 Urina lysis macro (dips tick) panel - Urine urobilinogen [presence] in urine by test strip 0.2 E.U./d L text: 0.2 - 1.0 E.U./d L Urobi linog en, UA 0.2 E.U./ dL 0.2 - 1.0 E.U./ dL 08/18 1:09 PM EDT [facility] [employer] [facility] ATORY Not Available Not Available 09/01/2024 [...] mg/dL 08/19 10:[address] [facility] Not Available [...] 5.2 mmol/ L 08/19 10:[address] [facility] [address] [employer] [facility] AT[facility] Not Available Not Available [...] - 130 mg/dL 08/19 8:[address] [employer] [facility] Not Available [...] - 130 mg/dL 08/19 4:51 PM EDT [facility] ATORY Not Available [...] - 130 mg/dL 08/19 11:57 AM EDT [facility] [employer] [facility] AT[facility] Not Available Not Available 09/01/2024 [...] - 130 mg/dL 08/19 10:24 AM EDT [facility] [employer] [facility] ATORY Not Available Not Available 09/01/2024 [...] - 130 mg/dL 08/19 7:08 AM EDT [facility] H [employer] [facility] AT[facility] Not Available Not Available 09/01/2024 [...] - 200 U/L 08/19 6:53 AM EDT [facility] [employer] [facility] AT[facility] Not Available Not Available 09/01/2024 [...] 10.80 10*3/ mm3 08/19 6:27 AM EDT [facility] [employer] [facility] ATORY Not Available Not Available 09/01/2024 16:24:24 08/20/19 25 08/19/2024 CBC W Diffe renti al panel , metho d unspe cifie d - Blood erythrocytes [#/volume] in blood by automated count 3.54 10*6/ mm3 low: 4.1410 *6/mm3 high: 5.810* 6/mm3 low RBC 3.54 (L) 4.14 - 5.80 10*6/ mm3 08/19 6:27 AM EDT [employer] ATORY Not Available Not Available 09/01/2024 16:24:24 08/20/19 25 08/19/2024 CBC W Diffe renti al panel , metho d unspe cifie d - Blood hemoglobin [mass/volume ] in blood 8.4 g/dL low: 13g/dL high: 17.7g/ dL low Hemog lobin 8.4 (L) 13.0 - 17.7 g/dL 08/19 6:27 AM EDT [employer] ATORY Not Available Not Available 09/01/2024 16:24:24 08/20/19 25 08/19/2024 CBC W Diffe michaelti al panel , metho d unspe cifie d - Blood hematocrit [volume fraction] of blood by automated count 28 % low: 37.5%h igh: 51% low Hemat ocrit 28.0 (L) 37.5 - 51.0 % 08/19 6:27 AM EDT [employer] ATORY Not Available Not Available 09/01/2024 16:24:24 08/20/19 25 08/19/2024 CBC W Diffe michaelti al panel , metho d unspe cifie d - Blood MCV [entitic mean volume] in red blood cells by automated count 79.1 fL low: 79fLhi gh: 97fL MCV 79.1 79.0 - 97.0 fL 08/19 6:27 AM EDT [employer] ATORY Not Available Not Available 09/01/2024 16:24:24 08/20/19 25 08/19/2024 CBC W Diffe renti al panel , metho d unspe cifie d - Blood MCH [entitic mass] by automated count 23.7 pg low: 26.6pg high: 33pg low MCH 23.7 (L) 26.6 - 33.0 pg 08/19 6:27 AM EDT [employer] ATORY Not Available Not Available 09/01/2024 16:24:24 08/20/19 25 08/19/2024 CBC W Diffe renti al panel , metho d unspe cifie d - Blood MCHC [entitic mass/volume] in red blood cells by automated count 30 g/dL low: 31.5g/ dLhigh : 35.7g/ dL low MCHC 30.0 (L) 31.5 - 35.7 g/dL 08/19 6:27 AM EDT [employer] ATORY Not Available Not Available 09/01/2024 16:24:24 08/20/19 25 08/19/2024 CBC W Diffe renti al panel , metho d unspe cifie d - Blood erythrocyte [distwidth] in red blood cells by automated count 17.2 % low: 12.3%h igh: 15.4% high RDW 17.2 (H) 12.3 - 15.4 % 08/19 6:27 AM EDT [employer] ATORY Not Available Not Available 09/01/2024 16:24:24 08/20/19 25 08/19/2024 CBC W Diffe renti al panel , metho d unspe cifie d - Blood RDW-SD 49.6 fL low: 37fLhi gh: 54fL RDW-S D 49.6 37.0 - 54.0 fl 08/19 6:27 AM EDT [employer] ATORY Not Available Not Available 09/01/2024 16:24:24 08/20/19 25 08/19/2024 CBC W Diffe renti al panel , metho d unspe cifie d - Blood platelet [entitic mean volume] in blood by automated count 8.7 fL low: 6fLhig h: 12fL MPV 8.7 6.0 - 12.0 fL 08/19 6:27 AM EDT [employer] ATORY Not Available Not Available 09/01/2024 16:24:24 08/20/19 25 08/19/2024 CBC W Diffe renti al panel , metho d unspe cifie d - Blood platelets [#/volume] in blood by automated count 390 10*3/ mm3 low: 01931* 3/mm3h igh: 02120* 3/mm3 Plate lets 390 140 - 450 10*3/ mm3 08/19 6:27 AM EDT [employer] ATORY Not Available Not Available 09/01/2024 16:24:24 08/20/19 25 08/19/2024 CBC W Diffe renti al panel , metho d unspe cifie d - Blood neutrophils/ leukocytes in blood by automated count 76.7 % low: 42.7%h igh: 76% high Neutr ophil % 76.7 (H) 42.7 - 76.0 % 08/19 6:27 AM EDT [employer] ATORY Not Available Not Available 09/01/2024 16:24:24 08/20/19 25 08/19/2024 CBC W Diffe renti al panel , metho d unspe cifie d - Blood lymphocytes/ leukocytes in blood by automated count 12.6 % low: 19.6%h igh: 45.3% low Lymph ocyte % 12.6 (L) 19.6 - 45.3 % 08/19 6:27 AM EDT [facility] Not Available Not Available 09/01/2024 16:24:24 08/20/19 25 08/19/2024 CBC W Diffe renti al panel , metho d unspe cifie d - Blood monocytes/le ukocytes in blood by automated count 8.8 % low: 5%high : 12% Monoc yte % 8.8 5.0 - 12.0 % 08/19 6:27 AM EDT [facility] Not Available Not Available 09/01/2024 16:24:24 08/20/19 25 08/19/2024 CBC W Diffe renti al panel , metho d unspe cifie d - Blood eosinophils/ leukocytes in blood by automated count 0.7 % low: 0.3%hi gh: 6.2% Eosin ophil % 0.7 0.3 - 6.2 % 08/19 6:27 AM EDT [facility] [employer] [facility] Not Available Not Available 09/01/2024 16:24:24 08/20/19 25 08/19/2024 CBC W Diffe renti al panel , metho d unspe cifie d - Blood basophils/le ukocytes in blood by automated count 0.4 % low: 0%high : 1.5% Basop hil % 0.4 0.0 - 1.5 % 08/19 6:27 AM EDT [facility] [employer] [facility] Not Available Not Available 09/01/2024 16:24:24 08/20/19 25 08/19/2024 CBC W Diffe renti al panel , metho d unspe cifie d - Blood immature granulocytes /leukocytes in blood by automated count 0.8 % low: 0%high : 0.5% high Immat ure Grans % 0.8 (H) 0.0 - 0.5 % 08/19 6:27 AM EDT [facility] [employer] [facility] Not Available Not Available 09/01/2024 16:24:24 08/20/19 25 08/19/2024 CBC W Diffe renti al panel , metho d unspe cifie d - Blood neutrophils/ leukocytes in blood by automated count 8.51 10*3/ mm3 low: 1.710* 3/mm3h igh: 710*3/ mm3 high Neutr ophil s, Absol gambell 8.51 (H) 1.70 - 7.00 10*3/ mm3 08/19 6:27 AM EDT [facility] [employer] [facility] [employer] [facility] Not Available Not Available 09/01/2024 16:24:24 08/20/19 25 08/19/2024 CBC W Diffe renti al panel , metho d unspe cifie d - Blood lymphocytes [#/volume] in blood by automated count 1.4 10*3/ mm3 low: 0.710* 3/mm3h igh: 3.110* 3/mm3 Lymph ocyte s, Absol gambell 1.40 0.70 - 3.10 10*3/ mm3 05/09 /2025 6:27 AM EDT [employer] [facility] Not Available Not Available 09/01/2024 16:24:24 08/20/19 25 08/19/2024 CBC W Diffe renti al panel , metho d unspe cifie d - Blood monocytes [#/volume] in blood by automated count 0.98 10*3/ mm3 low: 0.110* 3/mm3h igh: 0.910* 3/mm3 high Monoc ytes, Absol gambell 0.98 (H) 0.10 - 0.90 10*3/ mm3 08/19 6:27 AM EDT [employer] [facility] [employer] [facility] Not Available Not Available 09/01/2024 16:24:24 08/20/19 25 08/19/2024 CBC W Diffe renti al panel , metho d unspe cifie d - Blood eosinophils [#/volume] in blood by automated count 0.08 10*3/ mm3 low: 010*3/ mm3hig h: 0.410* 3/mm3 Eosin ophil s, Absol gambell 0.08 0.00 - 0.40 10*3/ mm3 08/19 6:27 AM EDT [employer] [facility] [employer] [facility] Not Available Not Available 09/01/2024 16:24:24 08/20/19 25 08/19/2024 CBC W Diffe renti al panel , metho d unspe cifie d - Blood basophils [#/volume] in blood by automated count 0.04 10*3/ mm3 low: 010*3/ mm3hig h: 0.210* 3/mm3 Basop hils, Absol gambell 0.04 0.00 - 0.20 10*3/ mm3 08/19 6:27 AM EDT [employer] [employer] [facility] Not Available Not Available 09/01/2024 16:24:24 08/20/19 25 08/19/2024 CBC W Diffe renti al panel , metho d unspe cifie d - Blood immature granulocytes [#/volume] in blood by automated count 0.09 10*3/ mm3 low: 010*3/ mm3hig h: 0.0510 *3/mm3 high Immat ure Grans , Absol gambell 0.09 (H) 0.00 - 0.05 10*3/ mm3 08/19 6:27 AM EDT [facility] AT[facility] Not Available Not Available 09/01/2024 16:24:24 08/20/19 25 08/19/2024 CBC W Diffe renti al panel , metho d unspe cifie d - Blood nucleated erythrocytes /leukocytes [ratio] in blood by automated count 0.2 text: 0.0 - 0.2 /100 WBC nRBC 0.2 0.0 - 0.2 /100 WBC 08/19 6:27 AM EDT [facility] ATORY Not Available Not Available 09/01/2024 16:24:24 [...] - 99 mg/dL 08/19 6:58 AM EDT [facility] AT[facility] Not Available Not Available 09/01/2024 16:24:24 08/20/19 25 08/19/2024 Basic metab olic 2000 panel - Serum or Plasm a urea nitrogen [mass/volume ] in serum or plasma 69 mg/dL low: 8mg/dL high: 23mg/d L high BUN 69 (H) 8 - 23 mg/dL 08/19 6:58 AM EDT [facility] ATORY Not Available Not Available 09/01/2024 16:24:24 08/20/19 25 08/19/2024 Basic metab olic 2000 panel - Serum or Plasm a creatinine [mass/volume ] in serum or plasma 2.29 mg/dL low: 0.76mg /dLhig h: 1.27mg /dL high Creat inine 2.29 (H) 0.76 - 1.27 mg/dL 08/19 6:58 AM EDT [employer] [facility] Not Available Not Available 09/01/2024 16:24:24 08/20/19 25 08/19/2024 Basic metab olic 1999 panel - Serum or Plasm a sodium [moles/volum e] in serum or plasma 136 mmol/ L low: 136mmo l/Lhig h: 145mmo l/L Sodiu m 136 136 - 145 mmol/ L 08/19 6:58 AM EDT [facility] Not Available Not Available 09/01/2024 16:24:24 08/20/19 25 08/19/2024 Basic metab olic 1999 panel - Serum or Plasm a potassium [moles/volum e] in serum or plasma 6.8 mmol/ L low: 3.5mmo l/Lhig h: 5.2mmo l/L critical high Potas sium 6.8 (HH) 3.5 - 5.2 mmol/ L 08/19 6:58 AM EDT [facility] AT[facility] Not Available Not Available 09/01/2024 16:24:24 08/20/19 25 08/19/2024 Basic metab olic 1999 panel - Serum or Plasm a chloride [moles/volum e] in serum or plasma 102 mmol/ L low: 98mmol /Lhigh : 107mmo l/L Chlor chava 102 98 - 107 mmol/ L 08/19 6:58 AM EDT [employer] [facility] Not Available Not Available 09/01/2024 16:24:24 08/20/19 25 08/19/2024 Basic metab olic 1999 panel - Serum or Plasm a carbon dioxide, total [moles/volum e] in serum or plasma 21 mmol/ L low: 22mmol /Lhigh : 29mmol /L low CO2 21.0 (L) 22.0 - 29.0 mmol/ L 08/19 6:58 AM EDT [employer] [facility] Not Available Not Available 09/01/2024 16:24:24 08/20/19 25 08/19/2024 Basic metab olic 2000 panel - Serum or Plasm a calcium [moles/volum e] in specimen 9.5 mg/dL low: 8.6mg/ dLhigh : 10.5mg /dL Calci um 9.5 8.6 - 10.5 mg/dL 08/19 6:58 AM EDT [employer] ATORY Not Available Not Available 09/01/2024 16:24:24 08/20/19 25 08/19/2024 Basic metab olic 2000 panel - Serum or Plasm a urea nitrogen/cre atinine [mass ratio] in serum or plasma 30.1 low: 7high: 25 high BUN/C reati nine Ratio 30.1 (H) 7.0 - 25.0 08/19 6:58 AM EDT [facility] AT[facility] Not Available Not Available 09/01/2024 16:24:24 08/20/19 25 08/19/2024 Basic [employer] olic 2000 panel - Serum or Plasm a anion gap in serum or plasma by calculated.3 ions 13 mmol/ L low: 5mmol/ Lhigh: 15mmol /L Anion Gap 13.0 5.0 - 15.0 mmol/ L 08/19 6:58 AM EDT [facility] AT[facility] Not Available Not Available 09/01/2024 16:24:24 08/20/19 25 08/19/2024 Basic metab olic 2000 panel - Serum or Plasm a glomerular filtration rate [volume rate/area] in serum, plasma or blood by creatinine-b ased formula (CKD-epi 2020)/1.73 sq M 31.3 mL/mi n/1.7 3 low: 60mL/m in/1.7 3 low eGFR 31.3 (L) >60.0 mL/mi n/1.7 3 08/19 6:58 AM EDT [facility] AT[facility] Not Available Not Available 09/01/2024 16:24:24 [...] 52 mmol/ L 08/20 10:04 PM EDT [facility] ATORY Not Available [...] Urine 59.4 mg/dL 08/21 12:21 PM EDT [facility] ATORY Not Available [...] Urine 460 mg/dL 08/21 12:21 PM EDT [facility] Not Available [...] - 130 mg/dL 08/20 4:45 PM EDT [facility] [...] 10.80 10*3/ mm3 08/20 2:28 PM EDT [employer] [facility] AT[facility] Not Available Not Available 09/01/2024 16:24:24 08/21/1908/20/2024 CBC panel - Blood by Autom ated count erythrocytes [#/volume] in blood by automated count 3.91 10*6/ mm3 low: 4.1410 *6/mm3 high: 5.810* 6/mm3 low RBC 3.91 (L) 4.14 - 5.80 10*6/ mm3 08/20 2:28 PM EDT [employer] [facility] AT[facility] Not Available Not Available 09/01/2024 16:24:24 08/21/1908/20/2024 CBC panel - Blood by Autom ated count hemoglobin [mass/volume ] in blood 9 g/dL low: 13g/dL high: 17.7g/ dL low Hemog lobin 9.0 (L) 13.0 - 17.7 g/dL 08/20 2:28 PM EDT [employer] [facility] AT[facility] Not Available Not Available 09/01/2024 16:24:24 08/21/19 25 08/20/2024 CBC panel - Blood by Autom ated count hematocrit [volume fraction] of blood by automated count 30.5 % low: 37.5%h igh: 51% low Hemat ocrit 30.5 (L) 37.5 - 51.0 % 08/20 2:28 PM EDT [employer] [facility] AT[facility] Not Available Not Available 09/01/2024 16:24:24 08/21/1908/20/2024 CBC panel - Blood by Autom ated count MCV [entitic mean volume] in red blood cells by automated count 78 fL low: 79fLhi gh: 97fL low MCV 78.0 (L) 79.0 - 97.0 fL 08/20 2:28 PM EDT [facility] ATORY Not Available Not Available 09/01/2024 16:24:24 08/21/19 25 08/20/2024 CBC panel - Blood by Autom ated count MCH [entitic mass] by automated count 23 pg low: 26.6pg high: 33pg low MCH 23.0 (L) 26.6 - 33.0 pg 08/20 2:28 PM EDT [facility] ATORY Not Available Not Available 09/01/2024 16:24:24 08/21/19 25 08/20/2024 CBC panel - Blood by Autom ated count MCHC [entitic mass/volume] in red blood cells by automated count 29.5 g/dL low: 31.5g/ dLhigh : 35.7g/ dL low MCHC 29.5 (L) 31.5 - 35.7 g/dL 08/20 2:28 PM EDT [facility] ATORY Not Available Not Available 09/01/2024 16:24:24 08/21/1908/20/2024 CBC panel - Blood by Autom ated count erythrocyte [distwidth] in red blood cells by automated count 17.2 % low: 12.3%h igh: 15.4% high RDW 17.2 (H) 12.3 - 15.4 % 08/20 2:28 PM EDT [facility] ATORY Not Available Not Available 09/01/2024 16:24:24 [...] - 12.0 fL 08/20 2:28 PM EDT [facility] [employer]IGNON Liz[facility] ATORY Not Available Not Available 09/01/2024 16:24:24 08/21/19 25 08/20/2024 CBC panel - Blood by Autom ated count platelets [#/volume] in blood by automated count 425 10*3/ mm3 low: 90733* 3/mm3h igh: 87510* 3/mm3 Plate lets 425 140 - 450 10*3/ mm3 08/20 2:28 PM EDT [facility] [employer]worksMIGNON Visto [facility] ATORY Not Available Not Available 09/01/2024 16:24:24 [...] - 99 mg/dL 08/20 2:47 PM EDT [facility] [employer] Visto [facility] ATORY Not Available Not Available 09/01/2024 16:24:24 08/21/19 25 08/20/2024 Basic metab olic 2000 panel - Serum or Plasm a urea nitrogen [mass/volume ] in serum or plasma 55 mg/dL low: 8mg/dL high: 23mg/d L high BUN 55 (H) 8 - 23 mg/dL 08/20 2:47 PM EDT [facility] [employer] Visto [facility] ATORY Not Available Not Available 09/01/2024 16:24:24 08/21/19 25 08/20/2024 Basic metab olic 2000 panel - Serum or Plasm a creatinine [mass/volume ] in serum or plasma 1.64 mg/dL low: 0.76mg /dLhig h: 1.27mg /dL high Creat inine 1.64 (H) 0.76 - 1.27 mg/dL 08/20 2:47 PM EDT [facility] [employer] [facility] Not Available Not Available 09/01/2024 16:24:24 08/21/19 25 08/20/2024 Basic metab olic 1999 panel - Serum or Plasm a sodium [moles/volum e] in serum or plasma 135 mmol/ L low: 136mmo l/Lhig h: 145mmo l/L low Sodiu m 135 (L) 136 - 145 mmol/ L 08/20 2:47 PM EDT [employer] [facility] [employer] ATORY Not Available Not Available 09/01/2024 16:24:24 08/21/19 25 08/20/2024 Basic metab olic 1999 panel - Serum or Plasm a potassium [moles/volum e] in serum or plasma 5 mmol/ L low: 3.5mmo l/Lhig h: 5.2mmo l/L Potas sium 5.0 3.5 - 5.2 mmol/ L 08/20 2:47 PM EDT [employer] [facility] [employer] [facility] ATORY Not Available Not Available 09/01/2024 16:24:24 08/21/19 25 08/20/2024 Basic metab olic 1999 panel - Serum or Plasm a chloride [moles/volum e] in serum or plasma 98 mmol/ L low: 98mmol /Lhigh : 107mmo l/L Chlor chava 98 98 - 107 mmol/ L 08/20 2:47 PM EDT [facility] [employer] [employer] [facility] Not Available Not Available 09/01/2024 16:24:24 08/21/19 25 08/20/2024 Basic metab olic 1999 panel - Serum or Plasm a carbon dioxide, total [moles/volum e] in serum or plasma 26 mmol/ L low: 22mmol /Lhigh : 29mmol /L CO2 26.0 22.0 - 29.0 mmol/ L 08/20 2:[address] [employer] TechnologiesT H [employer] [place] LABOR ATORY Not Available Not Available 09/01/2024 16:24:24 08/21/19 25 08/20/2024 Basic metab olic 2000 panel - Serum or Plasm a calcium [moles/volum e] in specimen 9.5 mg/dL low: 8.6mg/ dLhigh : 10.5mg /dL Calci um 9.5 8.6 - 10.5 mg/dL 08/20 2:47 PM EDT [employer] [facility] AT[facility] Not Available Not Available 09/01/2024 16:24:24 08/21/19 25 08/20/2024 Basic metab olic 1999 panel - Serum or Plasm a urea nitrogen/cre atinine [mass ratio] in serum or plasma 33.5 low: 7high: 25 high BUN/C reati nine Ratio 33.5 (H) 7.0 - 25.0 08/20 2:47 PM EDT [employer] [facility] [employer] [facility] AT[facility] Not Available Not Available 09/01/2024 16:24:24 08/21/19 25 08/20/2024 Basic metab olic 2000 panel - Serum or Plasm a anion gap in serum or plasma by calculated.3 ions 11 mmol/ L low: 5mmol/ Lhigh: 15mmol /L Anion Gap 11.0 5.0 - 15.0 mmol/ L 08/20 2:47 PM EDT [facility] [employer] [facility] Not Available Not Available 09/01/2024 16:24:24 08/21/19 25 08/20/2024 Basic [employer] olic 2000 panel - Serum or Plasm a glomerular filtration rate [volume rate/area] in serum, plasma or blood by creatinine-b ased formula (CKD-epi 2020)/1.73 sq M 46.7 mL/mi n/1.7 3 low: 60mL/m in/1.7 3 low eGFR 46.7 (L) >60.0 mL/mi n/1.7 3 08/20 2:47 PM EDT [employer] [facility] LAB[facility] ATORY Not Available Not Available 09/01/2024 [...] - 130 mg/dL 08/20 11:25 AM EDT [employer] [facility] [employer] [facility] AT[facility] Not Available Not Available 09/01/2024 [...] - 130 mg/dL 08/20 7:08 AM EDT [facility] [employer] [facility] Not Available Not Available 09/01/2024 [...] 10.80 10*3/ mm3 08/21 9:49 PM EDT [employer] [facility] [employer] [employer] [facility] AT[facility] Not Available Not Available 09/01/2024 16:24:25 08/22/19 25 08/21/2024 CBC W Diffe renti al panel , metho d unspe cifie d - Blood erythrocytes [#/volume] in blood by automated count 3.75 10*6/ mm3 low: 4.1410 *6/mm3 high: 5.810* 6/mm3 low RBC 3.75 (L) 4.14 - 5.80 10*6/ mm3 08/21 9:49 PM EDT [facility] [employer] [facility] Not Available Not Available 09/01/2024 16:24:25 08/22/19 25 08/21/2024 CBC W Diffe renti al panel , metho d unspe cifie d - Blood hemoglobin [mass/volume ] in blood 8.8 g/dL low: 13g/dL high: 17.7g/ dL low Hemog lobin 8.8 (L) 13.0 - 17.7 g/dL 08/21 9:49 PM EDT [facility] [employer] [facility] Not Available Not Available 09/01/2024 16:24:25 08/22/19 25 08/21/2024 CBC W Diffe renti al panel , metho d unspe cifie d - Blood hematocrit [volume fraction] of blood by automated count 29 % low: 37.5%h igh: 51% low Hemat ocrit 29.0 (L) 37.5 - 51.0 % 08/21 9:49 PM EDT [facility] [employer] [employer] [facility] AT[facility] Not Available Not Available 09/01/2024 16:24:25 08/22/19 25 08/21/2024 CBC W Diffe renti al panel , metho d unspe cifie d - Blood MCV [entitic mean volume] in red blood cells by automated count 77.3 fL low: 79fLhi gh: 97fL low MCV 77.3 (L) 79.0 - 97.0 fL 08/21 9:49 PM EDT [facility] [employer] [facility] AT[facility] Not Available Not Available 09/01/2024 16:24:25 08/22/19 25 08/21/2024 CBC W Diffe renti al panel , metho d unspe cifie d - Blood MCH [entitic mass] by automated count 23.5 pg low: 26.6pg high: 33pg low MCH 23.5 (L) 26.6 - 33.0 pg 08/21 9:49 PM EDT [facility] [employer] [facility] AT[facility] Not Available Not Available 09/01/2024 16:24:25 08/22/19 25 08/21/2024 CBC W Diffe renti al panel , metho d unspe cifie d - Blood MCHC [entitic mass/volume] in red blood cells by automated count 30.3 g/dL low: 31.5g/ dLhigh : 35.7g/ dL low MCHC 30.3 (L) 31.5 - 35.7 g/dL 08/21 9:49 PM EDT [employer] [facility] [employer] [facility] ATORY Not Available Not Available 09/01/2024 16:24:25 08/22/19 25 08/21/2024 CBC W Diffe renti al panel , metho d unspe cifie d - Blood erythrocyte [distwidth] in red blood cells by automated count 16.9 % low: 12.3%h igh: 15.4% high RDW 16.9 (H) 12.3 - 15.4 % 08/21 9:49 PM EDT [employer] [facility] [employer] [facility] ATORY Not Available Not Available 09/01/2024 16:24:25 08/22/19 25 08/21/2024 CBC W Diffe renti al panel , metho d unspe cifie d - Blood RDW-SD 47.4 fL low: 37fLhi gh: 54fL RDW-S D 47.4 37.0 - 54.0 fl 08/21 9:49 PM EDT [facility] [employer] [facility] AT[facility] Not Available Not Available 09/01/2024 16:24:25 08/22/19 25 08/21/2024 CBC W Diffe renti al panel , metho d unspe cifie d - Blood platelet [entitic mean volume] in blood by automated count 8.6 fL low: 6fLhig h: 12fL MPV 8.6 6.0 - 12.0 fL 08/21 9:49 PM EDT [employer] [facility] [employer] [facility] AT[facility] Not Available Not Available 09/01/2024 16:24:25 08/22/19 25 08/21/2024 CBC W Diffe renti al panel , metho d unspe cifie d - Blood platelets [#/volume] in blood by automated count 433 10*3/ mm3 low: 77155* 3/mm3h igh: 48263* 3/mm3 Plate lets 433 140 - 450 10*3/ mm3 08/21 9:49 PM EDT [facility] [employer] [facility] LAB[facility] ATORY Not Available Not Available 09/01/2024 16:24:25 08/22/19 25 08/21/2024 CBC W Diffe josé al panel , metho d unspe cifie d - Blood neutrophils/ leukocytes in blood by automated count 69.8 % low: 42.7%h igh: 76% Neutr ophil % 69.8 42.7 - 76.0 % 08/21 9:49 PM EDT [facility] [employer] [place] LAB[facility] ATORY Not Available Not Available 09/01/2024 16:24:25 08/22/19 25 08/21/2024 CBC W Jennifere josé al panel , metho d unspe cifie d - Blood lymphocytes/ leukocytes in blood by automated count 16.7 % low: 19.6%h igh: 45.3% low Lymph ocyte % 16.7 (L) 19.6 - 45.3 % 08/21 9:49 PM EDT [facility] [employer] [facility] ATORY Not Available Not Available 09/01/2024 16:24:25 08/22/19 25 08/21/2024 CBC W Jennifere josé al panel , metho d unspe cifie d - Blood monocytes/le ukocytes in blood by automated count 6.9 % low: 5%high : 12% Monoc yte % 6.9 5.0 - 12.0 % 08/21 9:49 PM EDT [facility] [employer] LABOR ATORY Not Available Not Available 09/01/2024 16:24:25 08/22/19 25 08/21/2024 CBC W Diffe josé al panel , metho d unspe cifie d - Blood eosinophils/ leukocytes in blood by automated count 3.4 % low: 0.3%hi gh: 6.2% Eosin ophil % 3.4 0.3 - 6.2 % 08/21 9:49 PM EDT [facility] [employer] [place] [facility] AT[facility] Not Available Not Available 09/01/2024 16:24:25 08/22/19 25 08/21/2024 CBC W Diffe renti al panel , metho d unspe cifie d - Blood basophils/le ukocytes in blood by automated count 0.4 % low: 0%high : 1.5% Basop hil % 0.4 0.0 - 1.5 % 08/21 9:[address] [employer] [facility] Not Available Not Available 09/01/2024 16:24:25 08/22/19 25 08/21/2024 CBC W Diffe renti al panel , metho d unspe cifie d - Blood immature granulocytes /leukocytes in blood by automated count 2.8 % low: 0%high : 0.5% high Immat ure Grans % 2.8 (H) 0.0 - 0.5 % 08/21 9:49 PM EDT [facility] LABOR ATORY Not Available Not Available 09/01/2024 16:24:25 08/22/19 25 08/21/2024 CBC W Diffe renti al panel , metho d unspe cifie d - Blood neutrophils/ leukocytes in blood by automated count 7.35 10*3/ mm3 low: 1.710* 3/mm3h igh: 710*3/ mm3 high Neutr ophil s, Absol gambell 7.35 (H) 1.70 - 7.00 10*3/ mm3 08/21 9:49 PM EDT [employer] [facility] H [employer] [place] LABOR ATORY Not Available Not Available 09/01/2024 16:24:25 08/22/19 25 08/21/2024 CBC W Diffe renti al panel , metho d unspe cifie d - Blood lymphocytes [#/volume] in blood by automated count 1.75 10*3/ mm3 low: 0.710* 3/mm3h igh: 3.110* 3/mm3 Lymph ocyte s, Absol gambell 1.75 0.70 - 3.10 10*3/ mm3 08/21 9:49 PM EDT [employer] [facility] LAB[facility] ATORY Not Available Not Available 09/01/2024 16:24:25 08/22/19 25 08/21/2024 CBC W Diffe renti al panel , metho d unspe cifie d - Blood monocytes [#/volume] in blood by automated count 0.72 10*3/ mm3 low: 0.110* 3/mm3h igh: 0.910* 3/mm3 Monoc ytes, Absol gambell 0.72 0.10 - 0.90 10*3/ mm3 08/21 9:[address] [employer] [facility] [employer] [facility] [employer] [facility] ATORY Not Available Not Available 09/01/2024 16:24:25 08/22/19 25 08/21/2024 CBC W Diffe renti al panel , metho d unspe cifie d - Blood eosinophils [#/volume] in blood by automated count 0.36 10*3/ mm3 low: 010*3/ mm3hig h: 0.410* 3/mm3 Eosin ophil s, Absol gambell 0.36 0.00 - 0.40 10*3/ mm3 08/21 9:49 PM EDT [employer] [facility] [employer] [facility] ATORY Not Available Not Available 09/01/2024 16:24:25 08/22/19 25 08/21/2024 CBC W Diffe renti al panel , metho d unspe cifie d - Blood basophils [#/volume] in blood by automated count 0.04 10*3/ mm3 low: 010*3/ mm3hig h: 0.210* 3/mm3 Basop hils, Absol gambell 0.04 0.00 - 0.20 10*3/ mm3 08/21 9:49 PM EDT [employer] [facility] [employer] [facility] ATORY Not Available Not Available 09/01/2024 16:24:25 08/22/19 25 08/21/2024 CBC W Diffe renti al panel , metho d unspe cifie d - Blood immature granulocytes [#/volume] in blood by automated count 0.29 10*3/ mm3 low: 010*3/ mm3hig h: 0.0510 *3/mm3 high Immat ure Grans , Absol gambell 0.29 (H) 0.00 - 0.05 10*3/ mm3 08/21 9:49 PM EDT [employer] MediaT H [place] [facility] ATORY Not Available Not Available 09/01/2024 16:24:25 08/22/19 25 08/21/2024 CBC W Diffe renti al panel , metho d unspe cifie d - Blood nucleated erythrocytes /leukocytes [ratio] in blood by automated count 0.2 text: 0.0 - 0.2 /100 WBC nRBC 0.2 0.0 - 0.2 /100 WBC 08/21 9:49 PM EDT [facility] ATORY Not Available [...] - 0.25 ng/mL 08/21 10:18 PM EDT [facility] LAB[facility] ATORY Not Available Not Available 09/01/2024 [...] values are availa ble. Refer to http:/ /www.[email or web address]- pct-ca lculat or.com Change in PCT [...] avail able. Refer to http: //www .[facility] ms-pc isaias-jone farias or.co m [place] [...] - 130 mg/dL 08/21 11:31 AM EDT [employer] [facility] ATORY Not Available Not Available 09/01/2024 [...] 10.80 10*3/ mm3 08/21 11:03 AM EDT [facility] ATORY Not Available Not Available 09/01/2024 16:24:25 08/22/19 25 08/21/2024 CBC panel - Blood by Autom ated count erythrocytes [#/volume] in blood by automated count 3.76 10*6/ mm3 low: 4.1410 *6/mm3 high: 5.810* 6/mm3 low RBC 3.76 (L) 4.14 - 5.80 10*6/ mm3 08/21 11:03 AM EDT [employer] [facility] ATORY Not Available Not Available 09/01/2024 16:24:25 08/22/19 25 08/21/2024 CBC panel - Blood by Autom ated count hemoglobin [mass/volume ] in blood 8.8 g/dL low: 13g/dL high: 17.7g/ dL low Hemog lobin 8.8 (L) 13.0 - 17.7 g/dL 08/21 11:03 AM EDT [employer] [facility] ATORY Not Available Not Available 09/01/2024 16:24:25 08/22/19 25 08/21/2024 CBC panel - Blood by Autom ated count hematocrit [volume fraction] of blood by automated count 28.9 % low: 37.5%h igh: 51% low Hemat ocrit 28.9 (L) 37.5 - 51.0 % 08/21 11:03 AM [employer] ATORY Not Available Not Available 09/01/2024 16:24:25 08/22/19 25 08/21/2024 CBC panel - Blood by Autom ated count MCV [entitic mean volume] in red blood cells by automated count 76.9 fL low: 79fLhi gh: 97fL low MCV 76.9 (L) 79.0 - 97.0 fL 08/21 11:03 AM [employer] ATORY Not Available Not Available 09/01/2024 16:24:25 08/22/19 25 08/21/2024 CBC panel - Blood by Autom ated count MCH [entitic mass] by automated count 23.4 pg low: 26.6pg high: 33pg low MCH 23.4 (L) 26.6 - 33.0 pg 08/21 11:03 AM [employer] ATORY Not Available Not Available 09/01/2024 16:24:25 08/22/19 25 08/21/2024 CBC panel - Blood by Autom ated count MCHC [entitic mass/volume] in red blood cells by automated count 30.4 g/dL low: 31.5g/ dLhigh : 35.7g/ dL low MCHC 30.4 (L) 31.5 - 35.7 g/dL 08/21 11:03 AM [employer] ATORY Not Available Not Available 09/01/2024 16:24:25 08/22/19 25 08/21/2024 CBC panel - Blood by Autom ated count erythrocyte [distwidth] in red blood cells by automated count 17 % low: 12.3%h igh: 15.4% high RDW 17.0 (H) 12.3 - 15.4 % 08/21 11:03 AM EDT [facility] [employer] [facility] Not Available Not Available 09/01/2024 16:24:25 08/22/19 25 08/21/2024 CBC panel - Blood by Autom ated count RDW-SD 47.3 fL low: 37fLhi gh: 54fL RDW-S D 47.3 37.0 - 54.0 fl 08/21 11:03 AM EDT [employer] ATORY Not Available Not Available 09/01/2024 16:24:25 08/22/19 25 08/21/2024 CBC panel - Blood by Autom ated count platelet [entitic mean volume] in blood by automated count 8.2 fL low: 6fLhig h: 12fL MPV 8.2 6.0 - 12.0 fL 08/21 11:03 AM EDT [facility] ATORY Not Available Not Available 09/01/2024 16:24:25 08/22/19 25 08/21/2024 CBC panel - Blood by Autom ated count platelets [#/volume] in blood by automated count 415 10*3/ mm3 low: 54025* 3/mm3h igh: 21281* 3/mm3 Plate lets 415 140 - 450 10*3/ mm3 08/21 11:03 AM EDT [facility] ATORY Not Available Not Available 09/01/2024 16:24:25 [...] - 99 mg/dL 08/21 11:38 AM EDT [facility] ATORY Not Available Not Available 09/01/2024 16:24:25 08/22/19 25 08/21/2024 Basic metab olic 1999 panel - Serum or Plasm a urea nitrogen [mass/volume ] in serum or plasma 48 mg/dL low: 8mg/dL high: 23mg/d L high BUN 48 (H) 8 - 23 mg/dL 08/21 11:38 AM EDT [facility] ATORY Not Available Not Available 09/01/2024 16:24:25 08/22/19 25 08/21/2024 Basic metab olic 1999 panel - Serum or Plasm a creatinine [mass/volume ] in serum or plasma 1.35 mg/dL low: 0.76mg /dLhig h: 1.27mg /dL high Creat inine 1.35 (H) 0.76 - 1.27 mg/dL 08/21 11:38 AM EDT [facility] ATORY Not Available Not Available 09/01/2024 16:24:25 08/22/19 25 08/21/2024 Basic metab olic 1999 panel - Serum or Plasm a sodium [moles/volum e] in serum or plasma 135 mmol/ L low: 136mmo l/Lhig h: 145mmo l/L low Sodiu m 135 (L) 136 - 145 mmol/ L 08/21 11:38 AM EDT [facility] ATORY Not Available Not Available 09/01/2024 16:24:25 08/22/19 25 08/21/2024 Basic metab olic 1999 panel - Serum or Plasm a potassium [moles/volum e] in serum or plasma 4.7 mmol/ L low: 3.5mmo l/Lhig h: 5.2mmo l/L Potas sium 4.7 3.5 - 5.2 mmol/ L 08/21 11:38 AM EDT [facility] ATORY Not Available Not Available 09/01/2024 16:24:25 08/22/19 25 08/21/2024 Basic metab olic 1999 panel - Serum or Plasm a chloride [moles/volum e] in serum or plasma 96 mmol/ L low: 98mmol /Lhigh : 107mmo l/L low Chlor chava 96 (L) 98 - 107 mmol/ L 08/21 11:38 AM EDT [employer] [facility] [employer] [facility] AT[facility] Not Available Not Available 09/01/2024 16:24:25 08/22/19 25 08/21/2024 Basic metab olic 1999 panel - Serum or Plasm a carbon dioxide, total [moles/volum e] in serum or plasma 28 mmol/ L low: 22mmol /Lhigh : 29mmol /L CO2 28.0 22.0 - 29.0 mmol/ L 08/21 11:38 AM EDT [employer] [employer] [facility] Not Available Not Available 09/01/2024 16:24:25 08/22/1908/21/2024 Basic metab olic 1999 panel - Serum or Plasm a calcium [moles/volum e] in specimen 9.4 mg/dL low: 8.6mg/ dLhigh : 10.5mg /dL Calci um 9.4 8.6 - 10.5 mg/dL 08/21 11:38 AM EDT [employer] [facility] [employer] ATORY Not Available Not Available 09/01/2024 16:24:25 08/22/19 25 08/21/2024 Basic metab olic 1999 panel - Serum or Plasm a urea nitrogen/cre atinine [mass ratio] in serum or plasma 35.6 low: 7high: 25 high BUN/C reati nine Ratio 35.6 (H) 7.0 - 25.0 08/21 11:38 AM EDT [employer] [facility] [employer] [facility] Not Available Not Available 09/01/2024 16:24:25 08/22/19 25 08/21/2024 Basic metab olic 1999 panel - Serum or Plasm a anion gap in serum or plasma by calculated.3 ions 11 mmol/ L low: 5mmol/ Lhigh: 15mmol /L Anion Gap 11.0 5.0 - 15.0 mmol/ L 08/21 11:38 AM EDT [facility] [employer] [facility] Not Available Not Available 09/01/2024 [...] - 130 mg/dL 08/21 7:26 AM EDT [facility] [employer] [place] [facility] Not Available Not Available [...] - 130 mg/dL 08/22 8:55 PM EDT [facility] [employer] [facility] Not Available Not Available 09/01/2024 [...] - 130 mg/dL 08/22 4:31 PM EDT [employer] [facility] [employer] [place] [facility] Not Available Not Available [...] 10.80 10*3/ mm3 08/23 6:21 AM EDT [facility] [place] [facility] Not Available Not Available 09/01/2024 16:24:26 08/24/19 25 08/23/2024 CBC W Diffe renti al panel , metho d unspe cifie d - Blood erythrocytes [#/volume] in blood by automated count 4.15 10*6/ mm3 low: 4.1410 *6/mm3 high: 5.810* 6/mm3 RBC 4.15 4.14 - 5.80 10*6/ mm3 08/23 6:21 AM EDT [facility] [employer] [place] [facility] Not Available Not Available 09/01/2024 16:24:26 08/24/19 25 08/23/2024 CBC W Diffe michaelti al panel , metho d unspe cifie d - Blood hemoglobin [mass/volume ] in blood 9.5 g/dL low: 13g/dL high: 17.7g/ dL low Hemog lobin 9.5 (L) 13.0 - 17.7 g/dL 08/23 6:21 AM EDT [facility] Not Available Not Available 09/01/2024 16:24:26 08/24/19 25 08/23/2024 CBC W Diffe renti al panel , metho d unspe cifie d - Blood hematocrit [volume fraction] of blood by automated count 32 % low: 37.5%h igh: 51% low Hemat ocrit 32.0 (L) 37.5 - 51.0 % 08/23 6:21 AM EDT [facility] [place] [facility] Not Available Not Available 09/01/2024 16:24:26 08/24/19 25 08/23/2024 CBC W Diffe renti al panel , metho d unspe cifie d - Blood MCV [entitic mean volume] in red blood cells by automated count 77.1 fL low: 79fLhi gh: 97fL low MCV 77.1 (L) 79.0 - 97.0 fL 08/23 6:21 AM EDT [employer] [facility] [employer] [facility] Not Available Not Available 09/01/2024 16:24:26 08/24/19 25 08/23/2024 CBC W Diffe renti al panel , metho d unspe cifie d - Blood MCH [entitic mass] by automated count 22.9 pg low: 26.6pg high: 33pg low MCH 22.9 (L) 26.6 - 33.0 pg 08/23 6:21 AM EDT [facility] [employer] [facility] Not Available Not Available 09/01/2024 16:24:26 08/24/19 25 08/23/2024 CBC W Diffe renti al panel , metho d unspe cifie d - Blood MCHC [entitic mass/volume] in red blood cells by automated count 29.7 g/dL low: 31.5g/ dLhigh : 35.7g/ dL low MCHC 29.7 (L) 31.5 - 35.7 g/dL 08/23 6:21 AM EDT [facility] [employer] [facility] Not Available Not Available 09/01/2024 16:24:26 08/24/19 25 08/23/2024 CBC W Diffe renti al panel , metho d unspe cifie d - Blood erythrocyte [distwidth] in red blood cells by automated count 16.8 % low: 12.3%h igh: 15.4% high RDW 16.8 (H) 12.3 - 15.4 % 08/23 6:21 AM EDT [employer] [employer] [facility] Not Available Not Available 09/01/2024 16:24:26 08/24/19 25 08/23/2024 CBC W Diffnaren kumar al panel , metho d unspe cifie d - Blood RDW-SD 46.9 fL low: 37fLhi gh: 54fL RDW-S D 46.9 37.0 - 54.0 fl 08/23 6:21 AM EDT [employer] [facility] [employer] [facility] Not Available Not Available 09/01/2024 16:24:26 08/24/19 25 08/23/2024 CBC W Anthony kumar al panel , metho d unspe cifie d - Blood platelet [entitic mean volume] in blood by automated count 8.4 fL low: 6fLhig h: 12fL MPV 8.4 6.0 - 12.0 fL 08/23 6:21 AM EDT [facility] [employer] AT[facility] Not Available Not Available 09/01/2024 16:24:26 08/24/19 25 08/23/2024 CBC W Anthony kumar al panel , metho d unspe cifie d - Blood platelets [#/volume] in blood by automated count 472 10*3/ mm3 low: 69211* 3/mm3h igh: 69310* 3/mm3 high Plate lets 472 (H) 140 - 450 10*3/ mm3 08/23 6:21 AM EDT [employer] [facility] [employer] [facility] Not Available Not Available 09/01/2024 16:24:26 08/24/19 25 08/23/2024 CBC W Anthony kumar al panel , metho d unspe cifie d - Blood neutrophils/ leukocytes in blood by automated count 72.6 % low: 42.7%h igh: 76% Neutr ophil % 72.6 42.7 - 76.0 % 08/23 6:21 AM EDT [employer] [facility] [employer] [facility] Not Available Not Available 09/01/2024 16:24:26 08/24/19 25 08/23/2024 CBC W Diffe josé al panel , metho d unspe cifie d - Blood lymphocytes/ leukocytes in blood by automated count 16.5 % low: 19.6%h igh: 45.3% low Lymph ocyte % 16.5 (L) 19.6 - 45.3 % 08/23 6:21 AM EDT [employer] [facility] [employer] [facility] Not Available Not Available 09/01/2024 16:24:26 08/24/19 25 08/23/2024 CBC W Diffe renti al panel , metho d unspe cifie d - Blood monocytes/le ukocytes in blood by automated count 6 % low: 5%high : 12% Monoc yte % 6.0 5.0 - 12.0 % 08/23 6:21 AM EDT [employer] [facility] [employer] [facility] Not Available Not Available 09/01/2024 16:24:26 08/24/19 25 08/23/2024 CBC W Diffe renti al panel , metho d unspe cifie d - Blood eosinophils/ leukocytes in blood by automated count 0.6 % low: 0.3%hi gh: 6.2% Eosin ophil % 0.6 0.3 - 6.2 % 08/23 6:21 AM EDT [employer] [facility] [employer] [facility] Not Available Not Available 09/01/2024 16:24:26 08/24/19 25 08/23/2024 CBC W Diffe renti al panel , metho d unspe cifie d - Blood basophils/le ukocytes in blood by automated count 0.4 % low: 0%high : 1.5% Basop hil % 0.4 0.0 - 1.5 % 08/23 6:21 AM EDT [employer] [place] [facility] AT[facility] Not Available Not Available 09/01/2024 16:24:26 08/24/19 25 08/23/2024 CBC W Diffe renti al panel , metho d unspe cifie d - Blood immature granulocytes /leukocytes in blood by automated count 3.9 % low: 0%high : 0.5% high Immat ure Grans % 3.9 (H) 0.0 - 0.5 % 08/23 6:21 AM EDT [employer] [facility] AT[facility] Not Available Not Available 09/01/2024 16:24:26 08/24/19 25 08/23/2024 CBC W Diffe renti al panel , metho d unspe cifie d - Blood neutrophils/ leukocytes in blood by automated count 9 10*3/ mm3 low: 1.710* 3/mm3h igh: 710*3/ mm3 high Neutr ophil s, Absol gambell 9.00 (H) 1.70 - 7.00 10*3/ mm3 08/23 6:21 AM EDT [employer] [facility] Not Available Not Available 09/01/2024 16:24:26 08/24/19 25 08/23/2024 CBC W Diffe renti al panel , metho d unspe cifie d - Blood lymphocytes [#/volume] in blood by automated count 2.05 10*3/ mm3 low: 0.710* 3/mm3h igh: 3.110* 3/mm3 Lymph ocyte s, Absol gambell 2.05 0.70 - 3.10 10*3/ mm3 08/23 6:21 AM EDT [employer] [facility] Not Available Not Available 09/01/2024 16:24:26 08/24/19 25 08/23/2024 CBC W Diffe renti al panel , metho d unspe cifie d - Blood monocytes [#/volume] in blood by automated count 0.74 10*3/ mm3 low: 0.110* 3/mm3h igh: 0.910* 3/mm3 Monoc ytes, Absol gambell 0.74 0.10 - 0.90 10*3/ mm3 08/23 6:21 AM EDT [employer] [facility] [employer] [facility] Not Available Not Available 09/01/2024 16:24:26 08/24/19 25 08/23/2024 CBC W Diffe renti al panel , metho d unspe cifie d - Blood eosinophils [#/volume] in blood by automated count 0.08 10*3/ mm3 low: 010*3/ mm3hig h: 0.410* 3/mm3 Eosin ophil s, Absol gambell 0.08 0.00 - 0.40 10*3/ mm3 08/23 6:21 AM EDT [facility] [employer] [place] [facility] Not Available Not Available 09/01/2024 16:24:26 08/24/19 25 08/23/2024 CBC W Diffe renti al panel , metho d unspe cifie d - Blood basophils [#/volume] in blood by automated count 0.05 10*3/ mm3 low: 010*3/ mm3hig h: 0.210* 3/mm3 Basop hils, Absol gambell 0.05 0.00 - 0.20 10*3/ mm3 08/23 6:[address] [employer] [place] [facility] Not Available Not Available 09/01/2024 16:24:26 08/24/19 25 08/23/2024 CBC W Diffe renti al panel , metho d unspe cifie d - Blood immature granulocytes [#/volume] in blood by automated count 0.49 10*3/ mm3 low: 010*3/ mm3hig h: 0.0510 *3/mm3 high Immat ure Grans , Absol gambell 0.49 (H) 0.00 - 0.05 10*3/ mm3 08/23 6:21 AM EDT [employer] [facility] [employer] [employer] Not Available Not Available 09/01/2024 16:24:26 08/24/19 25 08/23/2024 CBC W Diffe renti al panel , metho d unspe cifie d - Blood nucleated erythrocytes /leukocytes [ratio] in blood by automated count 0.2 text: 0.0 - 0.2 /100 WBC nRBC 0.2 0.0 - 0.2 /100 WBC 08/23 6:[address] [employer] Not Available Not Available 09/01/2024 [...] Details Recorded Time 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 084937993 Active 2024 Rigoberto Rucker, UNIVERSITY PROFESSOR [address], [place], [address], [employer] 5 09:10:54 Peripheral arterial disease 150685797 Active 2024 Rigoberto Rucker, UNIVERSITY PROFESSOR [address], [place], [address], [employer] 5 09:11:40 Paroxysmal atrial fibrillatio n 616448980 Active 2024 Rigoberto Rucker, UNIVERSITY PROFESSOR [address], [place], [address], [employer] 5 09:14:46 Type 2 diabetes mellitus with peripheral angiopathy 407721318 Active 2024 Rigoberto Rucker UNIVERSITY PROFESSOR [address], [place], [address], [employer] 5 09:16:10 Microcytic anemia 160535479 Active 2024 Rigoberto Rucker, UNIVERSITY PROFESSOR [address], [place], [address], [employer] 5 09:16:33 Essential hypertensio n 87681843 Active 2024 Rigoberto Rucker, UNIVERSITY PROFESSOR [address], [place], [address], [employer] 5 09:16:50 Body mass index 40+ - severely obese 605127364 Active 2024 Rigoberto Rucker, UNIVERSITY PROFESSOR [address], [place], [address], [employer] 5 09:18:52 Mixed anxiety and depressive disorder 838477931 Active 2024 Rigoberto Rucker, UNIVERSITY PROFESSOR [address], [place], [address], [employer] 5 09:19:48 Peripheral neuropathy due to type 2 diabetes mellitus 2305501452564 Active 2024 Unyime Eyoh, UNIVERSITY PROFESSOR [address], [address], [address], [employer] 5 09:31:19 Muscle weakness 71026532 Active 2024 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 Medical Equipment None Reported. Allergies Allergen ID Allergen Name Allergen Category Reaction Reaction Severity Criticality Documentation Date Start Date Code Code System Note Provider Name and Address Organization Details Recorded Time 55938 Substance with sulfonami de structure and antibacte rial mechanism of action (substanc e) medicatio n Not available Not available Not available 05/23/2024 50107 8003 SNOMED naima page null, [employer] 5 10:26:26 36602 [employer]romorp desiree medicatio n Not available Not available Not available 05/23/2024 3423 RxNorm naima page null, [employer] 5 10:26:37 11641 furosemid e medicatio n Not available Not available Not available 05/23/2024 4603 RxNorm naima page null, [facility] 5 10:26:45 56782 morphine medicatio n Not available Not available Not available 05/23/2024 7052 RxNorm naima page null, [facility] 5 10:26:52 58844 sulfameth oxazole / trimethop rim medicatio n Not available Not available Not available 09/01/20242023 66692 RxNorm unrec ogniz ed react ion (text : Nause a And Vomit ing, code: [id number]) (from exter nal sourc e) Not [...] Address Organization Details Last Updated DateTime 05/24/2024 861119.8 g 49.1 kg/m2 190.5 cm Rigoberto Rucker NP [address] [facility] [address], [place], [address], [place] - [facility] 05/24/2024 08:59:26 Social History None recorded. Functional Status None recorded. Mental Status None recorded. Family History Nothing Reported. Medical History No medical history recorded. Past Encounters Encounter ID Performer Location Encounter Start Date Encounter Closed Date Diagnosis/Indication Diagnosis SNOMED-CT Code Diagnosis ICD10 Code Diagnosis Note [id number] Rigoberto Rucker NP [facility] [address] [facility] [address] [place] [address] 05/24/2024 08:58:51 05/24/2024 22:25:01 Osteomyelitis of forefoot 951632030 M86.9 S/p right fourth toe amputation on 04/23/2024. Patient completed IV Zosyn. Patient advised to keep f/u appointmen t for suture removal. HH SN for wound management and close monitoring . Peripheral arterial disease 259837570 I73.9 continue to foot ulcers, s/p right 4th toe amputation . Continue Plavix, statin and AC. F/U with vascular surgeon. Paroxysmal atrial fibrillation 795573363 I48.0 Continue Metoprolol for rate control and Eliquis for stroke risk reduction. High risk med, monitor for bleeding. 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 Continue current diabetic regimen, monitor BG closely to assess for lows and assist with insulin adjustment . Consistent carbohydra te. Microcytic anemia 489081 007 D50.9 Hgb stable per hospital record, continue to optimize dietary iron intake. F/U with PCP for labs monitoring . Essential hypertension 55700340 I10 Continue b/p meds, monitor b/p closely, limit salt. HH SN for diseases/m eds management and education. Body mass index 40+ - severely obese 261771327 E66.01 Z68.42 BMI 49.1. Discussed at length most important aspect of weight management being calorie balance, and more specifical ly calorie deficit to begin weight loss. Discussed hypothesis of insulin resistance , intermitte nt fasting, and time restricted feeding. Reviewed protocols and recommenda tions. Mixed anxi ety and depressive disorder 158412560 F41.9 F32.A Continue Hydroxyzin e and Trazodone. Peripheral neuropathy due to type 2 diabetes mellitus 7495506704 107 E11.42 Continue Gabapentin for pain management . Muscle weakness 60364360 M62.81 PT/OT eval and treat to address [...] [employer] Member ID Guarantor Name 09/11/2024 1 [facility] (MEDICARE REPLACEMENT/A DVANTAGE - PPO) [id number] Bebeto Christiansen [id number] Bebeto Christiansen Notes Date Note Type Note [...] for suture removal. Patient will benefit from [facility] services to assist with needs. Hospital records reviewed. Medications reviewed and reconciled. Rigoberto Rucker NP [address] [place] [address], [place], [address], [place] 05/24/2024 22:24:32
--- OUTSIDE RECORDS SUMMARY | 2024-10-25 15:58 | XMS_ITS | Clinical Summary ---
Author Organization [facility] Address [address] [place] [address] Phone Care Team Providers Care Braid Maker Name Role Phone Unavailable Primary Care Provider [...] cellulitis. Patient had been following in the [facility] wound clinic with Dr. Fischer, but has [...] cuff is unreliable. He has some dizziness. Paving Machine Operator to place an art line. Septic shock 10/22/2023 Assessment & Plan (10/27/2023 7:24 PM EDT): Post IV fluids. Antibiotics. Very short-lived Levophed peripherally in the ICU. Septic shock resolved. Assessment & Plan (10/26/2023 1:59 PM EDT): Post IV fluids. Antibiotics. Very short-lived Levophed peripherally in the ICU. Septic shock resolved. Assessment & Plan (10/22/2023 5:50 PM EDT): Sepsis Evaluation: [place] body weight: 84.5 kg (186 lb 4.6 [...] sepsis) RR>= 22 Resp: 16 GCS< 15 [place] Coma Scale Score: 15 SBP< 100 mmHg [...] Overview (05/19/2023): Patient was referred to the [facility] ED. I personally contacted the ED. Shortness [...] artery disease 07/08/2022 Overview (08/18/2022): Status post DIRECT RESPONSE CONSULTANT left anterior tibial artery and left popliteal artery. Shingle Trimmer Dr. Espinoza. Assessment & Plan (10/30/2023 9:20 [...] revascularization to the left lower extremity with DIRECT RESPONSE CONSULTANT to the left popliteal artery and anterior tibial artery confucianist of three-vessel runoff to the left foot [...] was consulted. He had PV angiography with DIRECT RESPONSE CONSULTANT to the left popliteal artery and anterior [...] revascularization to the left lower extremity with DIRECT RESPONSE CONSULTANT to the left popliteal artery and anterior tibial artery confucianist of three-vessel runoff to the left foot [...] p.o. twice daily for 30 days 3. Curlew offloading with dressing change, walker, knee roller [...] hospital 06/30 with a left foot ulcer. iNall says he first noticed the wound in [...] was consulted. He had PV angiography with DIRECT RESPONSE CONSULTANT tot he left popliteal artery and anterior [...] on Friday 07/28. CBC, CMP every Thursday [place] 5-325 1-2 tab Q6 PRN pain Continue [...] will follow-up outpatient Orthopedic surgery follow-up outpatient [place] for pain management until follow-up with Dr. [...] (07/04/2022): Added automatically from request for surgery [id number] Wound healing, delayed 06/30/2022 Overview (07/07/2022): Added automatically from request for surgery [id number] MDD (major depressive disord er), recurrent episode, [...] fibrillation 07/19/2020 Overview (08/18/2022): Chronic atrial fibrillation [id number] score of 3 Assessment & Plan (10/27/2023 [...] able to void without issue. Echo from [facility] in 2018 with LV EF 50-55%, tough [...] (07/02/2022): Added automatically from request for surgery [id number] Venous stasis ulcer of right lower extremity [...] completed on this admission. There is a [facility] notation of Osteomyelitis of the left [...] an outpatient. This can be done at [facility] outpatient therapy, or an F. It is [...] to his appointment with Dr. Day. 3. [facility] orders: Will need dressing changes QOD A. [...] his pain, we will put him on POKER SUPERVISOR with continuous rate, but he will need [...] was stopped when he went to the alf a few months ago, I suspect due to expense. His sugars have not been well controlled on the sliding scale over there. For the time being we'll put him on sliding scale as well as carbohydrate coverage. Since I expect to return to the alf, I don't think there is any reason [...] eliquis - continue coreg Echo 2018 from [facility]: Assessment & Plan (04/02/2018 6:18 PM EST): Chronic atrial fibrillation on Eliquis anticoagulation. Eliquis had been on hold secondary to his surgery but Dr. Moulton approved it to be restarted today. I will hold his aspirin upon discharge. Currently rate is reasonably controlled. telemetry for monitoring. Continue his carvedilol and digoxin. Encounters Date Type Department Care Team Description 08/08/[address] [address] Lora Harrison MA Other from [...] Intra-operative Cultures; Surgeon: Yifan Baron DO; Location: [facility]; Service: Orthopedics IR PICC INSERTION EQUAL OR [...] from your doctor or pharmacy? Never 10/26/2023 [facility] Utilities Answer Date Recorded In the past [...] often do you attend chur ch or pentecostalism services? Never 10/26/2023 Do you belong to any clubs o r organizations such as restoration groups, unions, fraternal or athletic groups, or [...] Date Recorded PHQ-2 Total Score 2 10/26/2023 [facility] [place] of Occupat ional [facility] - Occupational Stress Questionnaire Answer Date Recorded [...] place to sleep or slept in a fdc (including now)? No 07/16/2022 Housing Stability Vital Sign Answer Te e Recorded In the last 12 months, was t here a time when you were not able to pay the mortgage or rent on time? No 10/22/2023 In the past 12 months, how m any times have you moved where you were living? 1 10/22/2023 At any time in the past 12 m [facility], were you homeless or living in a fdc (including now)? No 10/22/2023 Education Answer Date [...] 03/13, 10/23/2023, Additional history exists Influenza Vaccine (#1) 2024 , 01/02/2020, 02/11/2018 DTaP/TDaP/Td (2 - Td or Tdap) 04/02/2025 04/02/2015 Lipids 05/26/2025 05/26/2024, 03/14, 07/14/2022, Additional history exists Hepatitis C Screening Completed 08/22/2022 Hepatitis B Vaccine Aged Out No longe r eligible based on patient's age to complete this topic Meningococcal B Vaccine Aged Out No l onger eligible based on patient's age to complete this topic Medical Devices Implanted Type Area [employer] Counterperson Device Identifier Shelf Expiration Date Model / Serial / Lot Floseal Hemostatic Matrix 10ml - [id number] Implanted:Qty: 6 on 03/29/2018 by Clark Moulton MD at [facility] N/A: Spine Thoracic [employer] 07/28/2019 [id number] / / [id number] Screw Multi Axial 5.5 X 30 Ti - [id number] Implanted:Qty: 4 on 03/29/2018 by Clark Moulton MD at [facility] N/A: Spine Thoracic [employer] [id number] / / Screw Multi Axial 5.5 X 35 Ti - [id number] Implanted:Qty: 4 on 03/29/2018 by Clark Moulton MD at [facility] N/A: Spine Thoracic [employer] [id number] / / Screw Multi Axial 5.5 X 40 Ti - [id number] Implanted:Qty: 8 on 03/29/2018 by Clark Moulton MD at [facility]/A: Spine Thoracic [employer] [id number] / / Matrix Dural Regeneration 1x3 - [id number] Implanted:Qty: 1 on 03/29/2018 by Clark Moulton MD at [facility]/A: Spine Thoracic [employer] 10/10/2020 [id number] / / [id number] John Matrix 5cm - [id number] Implanted:Qty: 1 on 03/29/2018 by Clark Moulton MD at [facility] 07/05/2020 [id number] / / Procedures Procedure Name Priority Date/Time [...] - 145 mmol/L 11/09/2023 8:22 AM EDT [facility] Potassium 3.9 3.8 - 4.9 mmol/L 11/09/2023 8:22 AM EDT [facility] Chloride 100 98 - 107 mmol/L 11/09/2023 8:22 AM EDT [facility] Total CO2 33(H) 21 - 29 mmol/L 11/09/2023 8:22 AM EDT [facility] Anion Gap 3(L) 7 - 16 mmol/L 11/09/2023 8:22 AM EDT [facility] Calcium 9.1 8.4 - 10.2 mg/dL 11/09/2023 8:22 AM EDT [facility] BUN 17 9 - 20 mg/dL 11/09/2023 8:22 AM EDT [facility] Creatinine 0.70 0.52 - 1.25 mg/dL 11/09/2023 8:22 AM EDT [facility] Glucose Lvl 231(H) 70 - 140 mg/dL 11/09/2023 8:22 AM EDT [facility] eGFR (CKD-EPIcr 2020) 104 >=60 mL/min/1.7 3 m2 11/09/2023 8:22 AM EDT [facility] Comment:Estimated GFR was ca lculated using the CKD-EPIcr (2020) equation refit without race. The equation is recommended by the National Kidney Foundation - [place] Society of Nephrology Task Force. Blood VENOUS BLOOD / Unknown 11/09/2023 7:29 AM EDT 11/09/2023 7:30 AM EDT Aixa Aguilera MD CHEMISTRY ORDERABLES Final Res ult Performing Organization Address [facility] de Phone Number [facility] [address] [facility] [place] [address] * (ABNORMAL) HEMOGLOBIN A1C (10/23/2023 4:03 AM EDT) Hgb A1C 9.2(H) <=5.6 % 10/23/2023 12:41 PM EDT [facility] Comment:Indicative of diabet es Est. Avg Glucose 217 mg/dL 10/23/2023 12:41 PM EDT [facility] Blood VENOUS BLOOD / Unknown Venipuncture / Unknown 10/23/2023 4:03 AM EDT 10/23/2023 4:08 AM EDT Rafael Lisa MD CHEMISTRY ORDERABLES Final Res ult Performing Organization Address [facility] de Phone Number [facility] [address] [place] [address] [place] [address] * MICROALBUMIN/CREATININE RATIO URINE (08/22/2022) Sodium 138 [...] OFFICE Platelet 268 150 - 399 X10(3)/MCL [facility] Microalb, Ur 0.6 <=31 MG/L [facility] Creatinine, Urine 113 MG/DL [facility] Hep C Ab neg S/CORATIO [facility] Calcium 9.10 8.70 - 10.70 MG/DL [facility] Urine URINE SPECIMEN COLLECTION / Unknown 08/22/2022 Juan Cantu MD URINE ORDERABLES Final Re sult [facility] OFFICE * (ABNORMAL) LIPID SCREEN (07/14/2022 5:15 AM EDT) Pathologist [facility] Cholesterol 163 <=200 mg/dL 07/14/2022 5:54 AM EDT [facility] Comment: < 200 Desirable 200 - 239 Borderline High >= 240 High Triglyceride 155(H) <=150 mg/dL 07/14/2022 5:54 AM EDT [facility] HDL 36(L) >=50 mg/dL 07/14/2022 5:54 AM EDT [facility] LDL Calculated 96 mg/dL 07/14/2022 5:54 AM EDT [facility] Comment: Desireable LDL Cholesterol: <130 mg/dL Borderline High Risk LDL Chol: 130-159 mg/dL High Risk LDL Cholesterol: >=160 mg/dL Blood VENOUS BLOOD / Unknown Venipuncture / Unknown 07/14/2022 5:15 AM EDT 07/14/2022 5:26 AM EDT Olga Lovelace NP CHEMISTRY ORDERABLES Final Res ult [facility] [address] [place] [address] from Last 3 Months or Most Recently Relevant to Health Maintenance Insurance [employer] MEDICARE ADVANTAGE PPO [id number] Advance Directives For more information, please contact: [phone] * Full Code (Latest Code Status on [...]
--- OUTSIDE RECORDS SUMMARY | 2024-10-25 15:58 | XMS_ITS | Encounter Summary ---
Author Organization [facility] [place] [address] Care Team Providers Care Heavy Coil Winder Name Role Phone Juan Cantu MD Primary Care Provider [phone] Encounter Details Date Type Department Care Team (Late st Contact Info) Description 11/09/2023 Lab Requisition [facility] [address] [place] [address] Aixa Aguilera MD [address] [place] [address] [place] [address] Hypertension secondary to endocrine disorders; Type [...] from your doctor or pharmacy? Never 10/26/2023 [facility] Utilities Answer Date Recorded In the [...] often do you attend chur ch or islam services? Never 10/26/2023 Do you belong to any clubs o r organizations such as pentecostalism groups, unions, fraternal or athletic groups, or [...] Date Recorded PHQ-2 Total Score 2 10/26/2023 [facility] - Occupational Stress Questionnaire Answer [...] place to sleep or slept in a fpc (including now)? No 07/16/2022 Housing Stability Vital Sign Answer Te e Recorded In the last 12 months, was t here a time when you were not able to pay the mortgage or rent on time? No 10/22/2023 In the past 12 months, how m any times have you moved where you were living? 1 10/22/2023 At any time in the past 12 m [facility], were you homeless or living in a fpc (including now)? No 10/22/2023 Education Answer Date [...] AM EDT) WBC 6.0 4.5 - 11.0 x10(3)/[facility] 11/09/2023 8:21 AM EDT [facility] RBC 4.42 4.30 - 5.90 x10(6)/mcL 11/09/2023 8:21 AM EDT [facility] Hgb 10.7(L) 13.2 - 17.3 g/dL 11/09/2023 8:21 AM EDT [facility] Hct 36.0(L) 39.0 - 55.0 % 11/09/2023 8:21 AM EDT [facility] MCV 81.4 81.0 - 101.0 fL 11/09/2023 8:21 AM EDT [facility] MCH 24.2(L) 27.0 - 31.0 pg 11/09/2023 8:21 AM EDT [facility] MCHC 29.7(L) 33.0 - 36.0 g/dL 11/09/2023 8:21 AM EDT [facility] Platelet 302 150 - 400 x10(3)/[facility] 11/09/2023 8:21 AM EDT [facility] MPV 9.9 7.4 - 10.4 fL 11/09/2023 8:21 AM EDT [facility] Neut Percent 50.9 % 11/09/2023 8:21 AM EDT [facility] Lymph Percent 33.9 % 11/09/2023 8:21 AM EDT [facility] Elk Percent 9.9 % 11/09/2023 8:21 AM EDT [facility] Eos Percent 4.0 % 11/09/2023 8:21 AM EDT [facility] Baso Percent 0.8 % 11/09/2023 8:21 AM EDT [facility] RDW 48.1(H) 35.1 - 43.9 fL 11/09/2023 8:21 AM EDT [facility] NRBC Auto % 0.0 <=1.0 % 11/09/2023 8:21 AM EDT [facility] Imm Gran% 0.5 % 11/09/2023 8:21 AM EDT [facility] IMMGRAN# 0.0 <=0.0 x10(3)/[facility] 11/09/2023 8:21 AM EDT [facility] Neut # 3.0 1.8 - 7.7 x10(3)/[facility] 11/09/2023 8:21 AM EDT [facility] Lymph # 2.0 1.0 - 4.8 x10(3)/[facility] 11/09/2023 8:21 AM EDT [facility] Elk # 0.6 0.0 - 0.8 x10(3)/[facility] 11/09/2023 8:21 AM EDT [facility] Eos# 0.2 0.0 - 0.7 x10(3)/[facility] 11/09/2023 8:21 AM EDT [facility] Baso # 0.1 0.0 - 0.2 x10(3)/[facility] 11/09/2023 8:21 AM EDT [facility] Blood VENOUS BLOOD / Unknown 11/09/2023 7:29 AM EDT 11/09/2023 7:30 AM EDT us Aixa Aguilera MD HEMATOLOGY ORDERABLES Final Re sult [facility] [address] [place] [address] * (ABNORMAL) BASIC METABOLIC PANEL (11/09/2023 7:29 AM EDT) Sodium 136 135 - 145 mmol/L 11/09/2023 8:22 AM EDT [facility] Potassium 3.9 3.8 - 4.9 mmol/L 11/09/2023 8:22 AM EDT [facility] Chloride 100 98 - 107 mmol/L 11/09/2023 8:22 AM EDT [facility] Total CO2 33(H) 21 - 29 mmol/L 11/09/2023 8:22 AM EDT [facility] Anion Gap 3(L) 7 - 16 mmol/L 11/09/2023 8:22 AM EDT [facility] Calcium 9.1 8.4 - 10.2 mg/dL 11/09/2023 8:22 AM EDT [facility] BUN 17 9 - 20 mg/dL 11/09/2023 8:22 AM EDT [facility] Creatinine 0.70 0.52 - 1.25 mg/dL 11/09/2023 8:22 AM EDT [facility] Glucose Lvl 231(H) 70 - 140 mg/dL 11/09/2023 8:22 AM EDT [facility] eGFR (CKD-EPIcr 2020) 104 >=60 mL/min/1.7 3 m2 11/09/2023 8:22 AM EDT [facility] Comment:Estimated GFR was ca lculated using the CKD-EPIcr (2020) equation refit without race. The equation is recommended by the National Kidney Foundation - [place] Society of Nephrology Task Force. Blood VENOUS BLOOD / Unknown 11/09/2023 7:29 AM EDT 11/09/2023 7:30 AM EDT Aixa Aguilera MD CHEMISTRY ORDERABLES Final Res ult [facility] [address] [place] [address] documented in this encounter Visit Diagnoses Diagnosis Hypertension secondary to endocrine disorders Other secondary hypertension, unspecified Type 2 diabetes mellitus with diabetic neuropathy, unspecified (HCC) documented in this encounter Additional Health Concerns Assessment Noted Time PHQ-9 Depression Total Score: 2 10/26/19 24 2:00 PM EDT PHQ-2 Depression Total Score: 2 10/26/19 2:00 PM EDT documented as of this encounter Care Teams Heavy Coil Winder Relationship Specialty Start Date End Date Juan Cantu MD [address] [place] [address] PCP - General Internal Medicine 08/27/18 03/27/24 documented as of this encounter
--- OUTSIDE RECORDS SUMMARY | 2024-10-25 15:58 | XMS_ITS | Clinical Summary ---
Author Organization Healthcare Address [address] [place] [address] Care Team Providers Care Rn Cardiac Cath Name Role Phone Unavailable Primary Care Provider Unavailabl e Encounters Date Type Department Care Team Description 10/05/2024 - 10/06/2024 12:50 AM EDT Emergency [facility] Emergency Department [address] [place] [address] Discharge Disposition: ED Dismiss - Never Arrived from Last 3 Months Social History Tobacco Use Types Packs/Day Years Used Date Smoking Tobacco: Never Assessed Sex and Gender Information Value Date Recorded Sex Assigned at Not on file Legal Sex Male 12:14 PM EDT Gender Identity Not on file Sexual Orientation Not on file Last Filed Vital Signs Vital Sign Reading Time Taken Comments Blood Pressure 107/57 10/07/2024 1:08 AM EDT Pulse 100 10/07/2024 1:08 AM EDT Temperature 36.4 C (97.6 F) 10/07/2024 1:08 AM EDT Respiratory Rate 19 10/07/2024 1:08 AM EDT Oxygen Saturation 99% 10/07/2024 1:08 AM EDT RA Inhaled Oxygen Concentration - - Weight - - Height - - Body Mass Index - - Plan of Treatment Not on file
--- OUTSIDE RECORDS SUMMARY | 2024-10-25 15:58 | XMS_ITS | Encounter Summary ---
Author Organization Healthcare Address [address] [place] [address] Care Team Providers Care Rn Digestive Name Role Phone Unavailable Primary Care Provider Unavailabl e Encounter Details Date Type Department Care Team (Late st Contact Info) Description 10/05/2024 - 10/06/2024 12:50 AM EDT Emergency [facility] Emergency Department [address] [place] [address] Discharge Disposition: ED Dismiss - Never Arrived Social History Tobacco Use Types Packs/Day Years Used Date Smoking Tobacco: Never Assessed Sex and Gender Information Value Date Recorded Sex Assigned at Not on file Legal Sex Male 12:14 PM EDT Gender Identity Not on file Sexual Orientation Not on file documented as of this encounter Plan of Treatment Not on file documented as of this encounter Visit Diagnoses Not on filedocumented in this encounter
[2024-10-25 16:02] LABS: VBG HCO3 32.3 mmol/L (23-30); VBG PCO2 34.5 mmol/L (35-51); VBG PO2 37.6 mmol/L (28-40)
[2024-10-25 16:03] LABS: Hematocrit 38.9 % (42.0-52.0); Hemoglobin 12.0 g/dL (14.1-18.0); Immature Granulocytes % 0.5 %; Mean Corpuscular HGB Conc 30.8 g/dL (31.8-35.4); Mean Corpuscular Hemoglobin 21.3 pg (27.0-31.2); Mean Corpuscular Volume 69.0 fl (80-94); Nucleated Red Blood Cells % 0 %; Platelet Count 437 K/mm3 (142-424); Red Blood Count 5.64 M/mm3 (4.60-6.20); Red Cell Distribution Width-SD 45.8 fL; White Blood Count 15.0 K/mm3 (4.8-10.8)
[2024-10-25 16:05] LABS: Lactate Venous 4.4 mmol/L (0.4-2.0); VBG PH 7.59 mmol/L (7.31-7.41)
[2024-10-25 16:12] LABS: Alanine Aminotransferase 16 U/L (12-78); Albumin Level 4.3 g/dl (3.5-5.0); Albumin/Globulin Ratio 1.1 (1.1-1.8); Alkaline Phosphatase 175 U/L (38-126); Anion Gap 18.8 mEq/L (5-15); Aspartate Amino Transferase 27 U/L (17-59); Bilirubin,Total 0.9 mg/dl (0.2-1.3); Blood Urea Nitrogen 25 mg/dl (9-20); Calcium 9.7 mg/dl (8.4-10.2); Carbon Dioxide 32 mmol/L (22.0-30.0); Chloride 79 mmol/L (98-107); Creatinine Clearance Estimated 75 mL/min (50-200); Creatinine,Serum 1.20 mg/dl (0.66-1.25); Estimated Glomerular Filt Rate 61 ml/min (>60); GFR (African American) 74 ML/MIN (>60); Globulin 3.9 g/dL (1.3-3.2); Lipase 227 U/L (23-300); Magnesium 2.1 mg/dl (1.6-2.3); Phosphorous 2.1 mg/dl (2.5-4.5); Sodium 127 mmol/L (136-145); Total Protein,Serum 8.2 g/dl (6.3-8.2)
[2024-10-25 16:17] LABS: Potassium 2.8 mmoL/L (3.5-5.1)
[2024-10-25 16:18] LABS: Glucose 417 mg/dl (74-100)
[2024-10-25 16:24] LABS: NT Pro Brain Natriuretic Pep. 1510 pg/mL (0-125); Troponin I 0.02 ng/ml (0.00-0.034)
[2024-10-25] MEDS: POTASSIUM CHLORIDE 20MEQ/15ML UDC 40 MEQ PO (17:42)
--- NOTE | 2024-10-25 17:51 | ECG_ITS ---
APPROVED REPORT Exam: Resting ECG HR:146 bpm ECG Measurements Heart Rate 146 AXES QRSd 94 QRS -43 QT 309 T 26 QTc 393 Conclusion ATRIAL FIBRILLATION WITH RAPID VENTRICULAR RESPONSE WITH ABERRANT CONDUCTION OR VENTRICULAR PREMATURE COMPLEXES LEFT AXIS DEVIATION [QRS AXIS < -30] POSSIBLE ANTERIOR MYOCARDIAL INFARCTION , PROBABLY OLD [30 ms Q WAVE IN V3/V4, OR R < 0.2 mV IN V4] ST DEPRESSION, CONSIDER SUBENDOCARDIAL INJURY [0.1+ mV ST DEPRESSION] ABNORMAL ECG UNCONFIRMED REPORT Electronically signed by : Cullen Felix, 10/25/2024 23:28:57
--- NOTE | 2024-10-25 17:58 | PC.NURSE ---
called and spoke with tampico for bed assignment
[2024-10-25] MEDS: METOPROLOL TARTRATE 5MG/5ML VIAL 5 MG IV (18:02)
--- NOTE | 2024-10-25 18:11 | PC.NURSE ---
report called to shannan on second floor
--- NOTE | 2024-10-25 18:38 | PC.NURSE ---
arrived to floor by w/c from ED
--- NOTE | 2024-10-25 19:22 | PC.NURSE ---
attempted to do a full skin assessment at admission on pt. pt refused stating he wanted to get in the chair now.
[2024-10-25 20:03] LABS: Reflex Lactic Add Lactic Reflex
--- NOTE | 2024-10-25 20:50 | P.HP_ITS ---
<Statement entered by Jorge A Martin MD - 10/30/24 08:54> Personally examined patient and agree with plan of care as outlined by the LINE SERVICER. History of Present Illness *Admission Date: 10/25/24 *Reason for visit:: Nausea and vomiting *History of present illness: This is a 64-year-old male with a past medical history of morbid obesity, atrial fibrillation, HFrEF, diabetes with diabetic foot ulcers, chronic bilateral lower extremity edema, LORI who presents emergency department today with complaints of nausea vomiting and inability to intake oral. Patient started on Mounjaro approximately 2 months ago. Has recently increased his dose to 5 mg. at the bedside provides collateral and states that he has had 3 days of poor p.o. intake and significant moaning and groaning stating his belly hurts. She reports he has not eaten much. He endorses nausea but no significant vomiting. He denies fever. He does have bilateral lower extremity wounds that are being cared for at wound care. Emergency department workup notable for white blood cell count of 15. Potassium of 2.8, sodium of 127, anion gap of 18, glucose of 417 alk phos of 175, proBNP of 1500, lipase of 227. While in the emergency department he was noted to be in A-fib with RVR requiring IV metoprolol. Given his continued abdominal pain and inability to intake p.o., and A-fib with RVR it is felt he would benefit from hospitalization. He is admitted to hospital service at this time [facility] Disclaimer: The information contained in this section may have been updated after the ruth nt was seen, as this information can be updated by other users. Medical History Acute on chronic heart failure with preserved ejection fraction (HFpEF) Atrial fibrillation Cellulitis Cellulitis of left lower extremity Diabetes mellitus Hypertension Morbid obesity with BMI of 50.0-59.9, adult LORI (obstructive sleep apnea) Peripheral arterial disease Venous stasis ulcer of both lower extremities without varicose veins Volume overload Surgical History History of amputation of left fifth toe History of amputation of right fourth toe Family History Other No significant family history Social History Smoking Status: Current every day smoker alcohol intake: never current occupational status: retired and disabled Travel in the last 8 weeks?: None Have you lived/traveled outside [place] in past 30 days?: No Contact w/someone who lives/traveled outside US past 30 days?: No Exposure to someone with infectious disease in past 14 days?: No Do you have a fever (greater than 100.4 F or 38 C)?: No Have you tested positive for COVID-19?: No Exposed to someone with COVID-19 in past 14 days?: No Do you have a sore throat?: No Do you have a cough?: No Do you have any weakness?: No Do you have any diarrhea?: No Are you experiencing any unusual bleeding?: No Do you have any muscle aches/pain?: No Do you have any abdominal pain?: No Are you experiencing loss of taste or smell?: No Other Medical History Have you received the Flu Vaccine for this season: No Have you received the Pneumonia Vaccine: No Review of Systems Review of Systems Review of systems:: pertinent systems reviewed and negative unless documented below Review of systems (narrative): Negative except for HPI Meds Home Medications and Allergies Home Medications ?Medication ?Instructions ?Recorded ?Confirmed ?Type paroxetine HCl 20 mg tablet 20 mg PO DAILY 07/30/24 History insulin lispro 100 unit/mL See Protocol SQ ACHS 30 day s #1.2 08/01/24 10/11/24 Rx subcutaneous solution (Humalog mL U-100 Insulin) apixaban 5 mg tablet (Eliquis) 5 mg PO BID 30 days #60 tabs 09/22/24 10/11/24 Rx metoprolol succinate 25 mg 25 mg PO DAILY 30 days #30 tabs 09/22/24 10/11/24 Rx tablet,extended release 24 hr nystatin 100,000 unit/gram topical 1 applic topical QI D #60 grams 09/22/24 10/11/24 Rx powder pregabalin 100 mg capsule 100 mg PO TID 30 days #90 ca ps 09/22/24 10/11/24 Rx acetazolamide 250 mg tablet 250 mg PO DAILY 30 days #3 0 tabs 10/07/24 10/11/24 Rx bumetanide 2 mg tablet 2 mg PO BID 30 days #90 tabs 10/07/24 10/11/24 Rx levofloxacin 750 mg tablet 750 mg PO DAILY #7 tabs 10/11/24 Rx metolazone 2.5 mg tablet 2.5 mg PO DAILY 30 days #60 tabs 10/07/24 10/11/24 Rx potassium chloride 20 mEq 40 meq (2 x 20 mEq) PO DAILY 30 10/07/24 10/11/24 Rx tablet,extended days #60 tabs release(part/cryst) (Klor-Con M) sodium hypochlorite 0.25 % 1 applic topical DAILYP PRN WILL 10/07/24 10/11/24 Rx solution (Dakin's Solution) DRESSING CHANGES #0 mL tramadol 75 mg tablet 75 mg PO Q6H PRN pain 30 day s #120 10/07/24 10/11/24 Rx tabs insulin glargine 100 unit/mL (3 60 unit SQ BID 5 10/11/24 History mL) subcutaneous pen (Lantus Solostar U-100 Insulin) iron sucrose 200 mg iron/10 mL 200 mg (10 mL) IV WEEKL Y 2 doses 10/11/24 10/11/24 Rx intravenous solution (Venofer) ondansetron 4 mg disintegrating 4 mg PO Q6H PRN nausea and 10/11/24 10/11/24 Rx tablet vomiting #30 tabs tirzepatide 5 mg/0.5 mL 5 mg (0.5 mL) SQ WEEKLY #2 m L 10/11/24 10/11/24 Rx subcutaneous pen injector (Romario) tizanidine 4 mg capsule 4 mg PO HS PRN muscle spasti city 10/11/24 10/11/24 Rx #30 caps New Prescriptions to Start Prescriptions: Allergies Allergy/AdvReac Type Severity Reaction Status Date / Time hydromorphone (From Dilaudid) AdvReac Vomiting Verified 10/11/24 15:04 morphine AdvReac Vomiting Verified 10/11/24 15:04 Exam Data for Last 24 hours Vital signs and Labs for Last 24 Hours: Temp Pulse Resp BP Pulse Ox O2 Del Method 98.1 F 65 22 116/77 98 Room Air 10/25/24 18:54 10/25/24 18:54 10/25/24 18:54 10/25/24 18:54 10/25/24 18:54 10/25/24 18:55 Laboratory Results - last 24 hr 10/25/24 15:35: VBG pH 7.59 H, VBG pCO2 34.5 L, VBG pO2 37.6, VBG HCO3 32.3 H, VBG Total CO2 33.3 H, VBG O2 Saturation 77.6 H, VBG Base Excess 10.5 H, VBG Lactic Acid 4.4 H 10/25/24 15:54: WBC 15.0 H, RBC 5.64, Hgb 12.0 L, Hct 38.9 L, MCV 69.0 L, MCH 21.3 L, MCHC 30.8 L, RDW 19.6 H, Plt Count 437 H, MPV 9.0, Neut % (Auto) 77.7, Lymph % (Auto) 15.7, [place] % (Auto) 5.3, Eos % (Auto) 0.5, Baso % (Auto) 0.3, Neut # (Auto) 11.7 H, Lymph # (Auto) 2.4, [place] # (Auto) 0.8, Eos # (Auto) 0.1, Baso # (Auto) 0.1, Sodium 127 L, Potassium 2.8 L*, Chloride 79 L, Carbon Dioxide 32 H, Anion Gap 18.8 H, BUN 25 H, Creatinine 1.20, Estimated Creat Clear 75, Estimated GFR 61, Est GFR ( Amer) 74, Glucose 417 H*, Calcium 9.7, Phosphorus 2.1 L, Magnesium 2.1, Total Bilirubin 0.9, AST 27, ALT 16, Alkaline Phosphatase 175 H, Troponin I 0.02, NT-Pro-B Natriuret Pep 1510 H, Total Protein 8.2 D, Albumin 4.3, Globulin 3.9 H, Albumin/Globulin Ratio 1.1, Lipase 227 I & O for Last 24 hours: Intake & Output 10/22/24 10/23/24 10/24/24 10/25/24 23:59 23:59 23:59 23:59 Weight 158.757 kg Constitutional Constitutional: no acute distress *Routine HEENT Exam Head: Present normocephalic Eye: Present EOMI and PERRL ENT: Present mucous membranes moist *Routine Neck Exam Neck: Present supple; Absent lymphadenopathy *Routine Respiratory Exam Respiratory: Present CTA bilaterally *Routine Cardiovascular Exam Cardiovascular: Present RRR *Routine Abdominal Exam Abdominal: Present soft, normoactive bowel sounds and tenderness (Epigastric tenderness) *Routine Rectal Exam Rectal:: deferred *Routine Genitalia Exam Genitalia:: deferred *Routine Extremities Exam Extremities: Absent cyanosis, clubbing or edema *Routine Skin Exam Skin: Present rash and cracked Comments: Bilateral lower extremity wounds noted. See nursing documentation/media for pictures. Softening the skin with areas of blood noted. *Routine Neurological Exam Neurological: Present alert and oriented X3 Assessment and Plan *Assessment and plan (1) Acute hyponatremia: Status: Acute Category: Medical Code(s): E87.1 - Hypo-osmolality and hyponatremia (2) Hyperglycemia: Status: Acute Category: Medical Code(s): R73.9 - Hyperglycemia, unspecified (3) Atrial fibrillation with rapid ventricular response: Status: Acute Category: Medical Code(s): I48.91 - Unspecified atrial fibrillation (4) Nausea & vomiting: Status: Acute Category: Medical Code(s): R11.2 - Nausea with vomiting, unspecified (5) Morbid obesity with BMI of 45.0-49.9, adult: Status: Acute Category: Medical Code(s): E66.01 - Morbid (severe) obesity due to excess calories; Z68.42 - Body mass index [BMI] 45.0-49.9, adult (6) Atrial fibrillation with RVR: Status: Acute Category: Medical Code(s): I48.91 - Unspecified atrial fibrillation (7) Chronic wound: Status: Acute Category: Medical Code(s): T14.8XXA - Other injury of unspecified body region, initial encounter (8) Bilateral edema of lower extremity: Status: Acute Category: Medical Code(s): R60.0 - Localized edema (9) Diabetes mellitus: Status: Acute Qualifiers: Diabetes mellitus type: type 2 Diabetes mellitus [employer] insulin use: without jail use Diabetes mellitus complication status: with hyperglyc emia Qualified Code(s): E11.65 - Type 2 diabetes mellitus with hyperglycemia Category: Medical Code(s): E11.9 - Type 2 diabetes mellitus without complications Plan #Nausea and vomiting Recently increased dose of Mounjaro. Likely contributing cause. Patient reports poor p.o. intake over the last 3 days. Might have gastric tenderness noted. Lipase of 227. If antiemetics do not improve patient's symptoms, will send for CT scan of the abdomen. Continue antiemetics as needed #Metabolic alkalosis #Hypokalemia #Hyponatremia #Hypochloremia Present on prior hospitalization as well. Does not appear to be an overloaded at this time so we will de-escalate patient's home Bumex Will will continue patient's home acetazolamide daily Electrolyte protocol initiated Sodium of 127 noted today. Likely partially falsely elevated given hyperglycemia with glucose of 427 on arrival to the ED. Chloride of 79. #Acute on chronic HFpEF Mildly elevated BNP but patient appears dry/euvolemic on exam Will hold diuretic overnight given hyponatremia Will restart Bumex in a.m. Continue acetazolamide 1500 mL fluid restriction #His atrial fibrillation with RVR Noted to have heart rate in the 120s upon arrival to the emergency department requiring IV metoprolol Continue as needed IV metoprolol if needed. Restart home oral metoprolol in a.m. #Lower extremity edema/lymphedema #Chronic ulceration of lower legs and buttocks Foul-smelling drainage noted. Patient was previously on Levaquin. Will continue Continue Lyrica for pain control Continue home tramadol Will consult wound care for ulcers #Morbid obesity Complicates all aspects of care #Diabetes with hyperglycemia Continue sliding scale insulin Continue glargine twice a day #LORI Continue home oxygen
[2024-10-25 21:08] LABS: Lactic Acid Follow Up (RFLX 1) 3.6 mmol/L (0.7-2.1)
[2024-10-25 21:14] LABS: Troponin I 0.03 ng/ml (0.00-0.034)
[2024-10-25] MEDS: APIXABAN 5MG TABLET 5 MG PO (21:28)
[2024-10-25] MEDS: PREGABALIN 100MG CAPSULE 100 MG PO (21:28)
[2024-10-25] MEDS: humaLOG 100 UNITS/ML 10ML VIAL (SSI) SUBCUT (21:29)
[2024-10-25 22:12] LABS: POC Glucose,Bedside 478 (70-110)
[2024-10-25 22:41] LABS: Reflex Lactic (2 hrs) Add Lactic Reflex
[2024-10-26] VITALS (7 sets, daily range): BP systolic 96–122; BP diastolic 55–78; PULSE 53–110; RESP 16–19; TEMP 36.4–36.6; O2SAT 93–100; BMI 46.1
[2024-10-26 00:30] LABS: Lactic Acid Follow up (RFLX 2) 2.7 mmol/L (0.7-2.1)
[2024-10-26 00:40] LABS: Troponin I 0.03 ng/ml (0.00-0.034)
--- NOTE | 2024-10-26 01:13 | PC.WOUNDNOTE ---
Left leg Right leg Left leg
[2024-10-26 01:44] LABS: POC Glucose,Bedside 364 (70-110)
[2024-10-26] MEDS: humaLOG 100 UNITS/ML 10ML VIAL (SSI) 6 UNIT SUBCUT (02:16)
[2024-10-26] MEDS: humaLOG 100 UNITS/ML 10ML VIAL (SSI) SUBCUT ×4 (05:23→21:59)
[2024-10-26 05:36] LABS: Microscopic, Urine URINE MICROSCOPIC (MICROSCOPIC)
[2024-10-26 05:39] LABS: Color,Urine YELLOW (Yellow); Glucose,Urine (UA) 3+ (Negative); Ketones,Urine TRACE (Negative); Leukocyte Esterase,Urine 2+ (Negative); PH,Urine 7.0 (5.0-8.5); Protein,Urine 1+ (Negative); Specific Gravity, Urine 1.010 (1.005-1.030); Urobilinogen,Urine 0.2 EU/dl (0.2)
[2024-10-26 05:42] LABS: Bilirubin,Urine Negative (Negative)
[2024-10-26 05:56] LABS: WBC,Urine 20-50 #/hpf (0-3)
[2024-10-26 05:57] LABS: Bacteria,Urine 3+ /lpf; Calcium Oxalate Crystals,Urine Trace /lpf; Mucus,Urine 1+ /lpf
[2024-10-26 06:51] LABS: POC Glucose,Bedside 319 (70-110)
[2024-10-26] MEDS: METOPROLOL SUCCINATE XL 25MG TABLET 25 MG PO (08:22)
[2024-10-26] MEDS: PREGABALIN 100MG CAPSULE 100 MG PO ×3 (08:22→22:00)
[2024-10-26] MEDS: APIXABAN 5MG TABLET 5 MG PO ×2 (08:22→22:00)
--- NOTE | 2024-10-26 08:23 | HMH.PHAINT1 ---
Pharmacy Intervention Comments: MEDICATION RECONCILIATION COMPLETED ON PATIENT USING EXTERNAL FILL HISTORY FROM PHARMACY AND DISCHARGE SUMMARY FROM PREVIOUS ADMISSION. -LISA CALDERON, JEANCARLOSD
[2024-10-26] MEDS: INSULIN GLARGINE 100 UNITS/ML 3ML FLEXPEN 60 UNIT SUBCUT ×2 (08:24→22:00)
[2024-10-26 08:29] LABS: Hematocrit 36.7 % (42.0-52.0); Hemoglobin 11.0 g/dL (14.1-18.0); Immature Granulocytes % 0.3 %; Mean Corpuscular HGB Conc 30.0 g/dL (31.8-35.4); Mean Corpuscular Hemoglobin 21.0 pg (27.0-31.2); Mean Corpuscular Volume 70.2 fl (80-94); Nucleated Red Blood Cells % 0 %; Platelet Count 360 K/mm3 (142-424); Red Blood Count 5.23 M/mm3 (4.60-6.20); Red Cell Distribution Width-SD 47.8 fL; White Blood Count 13.0 K/mm3 (4.8-10.8)
--- NOTE | 2024-10-26 09:42 | HMH.PTEV ---
Physical Therapy Evaluation Rehab PT IP Evaluation Start: 10/25/24 19:21 Freq: .once Status: Active Protocol: Document 10/26/24 08:58 ROSA (Rec: 10/26/24 09:42 ROSA [id number]) Subjective/History History History Per H&P: This is a 64-year-old male with a past medical history of morbid obesity, atrial fibrillation, HFrEF, diabetes with diabetic foot ulcers, chronic bilateral lower extremity edema, LORI who presents emergency department today with complaints of nausea vomiting and inability to intake oral. Patient started on Mounjaro approximately 2 months ago. Has recently increased his dose to 5 mg. at the bedside provides collateral and states that he has had 3 days of poor p.o. intake and significant moaning and groaning stating his belly hurts. She reports he has not eaten much. He endorses nausea but no significant vomiting. He denies fever. He does have bilateral lower extremity wounds that are being cared for at wound care. Emergency department workup notable for white blood cell count of 15. Potassium of 2.8, sodium of 127, anion gap of 18, glucose of 417 alk phos of 175, proBNP of 1500, lipase of 227. While in the emergency department he was noted to be in A-fib with RVR requiring IV metoprolol. Given his continued abdominal pain and inability to intake p.o., and A-fib with RVR it is felt he would benefit from hospitalization. He is admitted to hospital service at this time Subjective Subjective PLOF: Pt reports he has been having more trouble getting around his home and performing transfers. Pt normally uses a w/c and performs IND EOB<>w/c transfers . HOME: Lives in a single-story home with his sister. ASSIST: Sister able to assist as needed. [facility] How much help from another person do you currently need... Turning from your A little back to your side while in a flat bed without using bedrails? Moving from lying on A little back to sitting on the side of a flat bed without using bedrails? Moving to and from a A little bed to a chair ( including a wheelchair)? Standing up from a A little chair using your arms? (e.g., wheelchair, bedside chair) Walking in hospital A lot room? Climbing 3-5 steps A lot with a railing? Mobility Score 16 Mobility Level [facility] Mobility 5 Stand (1 or more minutes) Mobility Calculator Rehab PT IP Eval Objective Appearance Patient Behavior Appropriate,Cooperative Patient Orientation Person Difficulty following none instructions Speech Pattern Clear Ambulation Patient Able to No Ambulate Balance Ability to Arise Able, uses arms to help Sitting Balance Steady, safe Standing Balance Unsteady Dynamic Sitting Good Balance Ability Dynamic Standing Poor Balance Ability Transfers Bed Transfer Ability Moderate x 1 (50% assist) Sit to Stand Bed Moderate x 1 (50% assist) Transfer Ability Rehab PT IP prob,goals,plan Problems Date of Evaluation: 10/26/24 PT IP Problems Bed Mobility,Transfers,Gait,Balance,Self care,Safety Rehab Potential Rehab Potential Good Plan PT Intervention Plan Bed Mobility,Transfers,Gait,Balance,Self care,Safety, Therapeutic Exercise Other Intervention 1-2 times Plan PT Plan Frequency Daily Duration LOS Discharge Goals Bed Transfer Ability Contact Guard/Hand Hold Sit to Stand Chair Minimal x 1 (25% assist) Transfer Ability Discharge Plan PT Discharge Plan Initial physical therapy evaluation performed. Patient presents below baseline at this time in functional mobility, transfers, and strength. Pt not safe to return home at this time d/t current level of functional mobility. Pt normally able to perform bed mobility with IND and transfers with SBA. Pt required elevated EOB to be able to stand and transfer to recliner. Pt with poor standing endurance. Pt required Mod A for bed mobility. PT recommending short-term rehabilitation stay upon d/c from [facility] to address deficits and decrease caregiver burden. Pt would benefit from skilled PT while at [facility] to prevent further functional decline and maximize safety with mobility. Eval Complexity Eval Charge Codes 17131 - Moderate Complexity PHYSICIAN CERTIFICATION: I certify the specified therapy services for Bebeto Christiansen are required, authorized, and reviewed every 30 days.
[2024-10-26 09:48] LABS: POC Glucose,Bedside 346 (70-110)
[2024-10-26] MEDS: CEFTRIAXONE 1 GM 1 GM in 0.9 % SODIUM CHLORIDE 50 ML IV (09:58)
[2024-10-26 10:32] LABS: Alanine Aminotransferase 12 U/L (12-78); Albumin Level 3.3 g/dl (3.5-5.0); Albumin/Globulin Ratio 1.1 (1.1-1.8); Alkaline Phosphatase 129 U/L (38-126); Anion Gap 17.1 mEq/L (5-15); Aspartate Amino Transferase 21 U/L (17-59); Bilirubin,Total 0.6 mg/dl (0.2-1.3); Blood Urea Nitrogen 31 mg/dl (9-20); Calcium 9.2 mg/dl (8.4-10.2); Carbon Dioxide 31 mmol/L (22.0-30.0); Chloride 81 mmol/L (98-107); Creatinine Clearance Estimated 56 mL/min (50-200); Creatinine,Serum 1.60 mg/dl (0.66-1.25); Estimated Glomerular Filt Rate 44 ml/min (>60); GFR (African American) 53 ML/MIN (>60); Globulin 2.9 g/dL (1.3-3.2); Glucose 304 mg/dl (74-100); Magnesium 2.2 mg/dl (1.6-2.3); Phosphorous 3.0 mg/dl (2.5-4.5); Potassium 3.1 mmoL/L (3.5-5.1); Sodium 126 mmol/L (136-145); Total Protein,Serum 6.2 g/dl (6.3-8.2)
--- NOTE | 2024-10-26 10:37 | SW/DCPLANNER ---
Spoke with patient regarding discharge planning, patient refused rehabilitation placement. PT evaluation did recommend placement. Patient has all appropriate DME at home. Due to insurance patient is not a candidate for home health services. Discharge date unknown, I will continue to follow up. [employer] social worker at bedside during conversation.
--- NOTE | 2024-10-26 11:16 | HMH.OTEV ---
OT Inpatient Evaluation Rehab OT IP Evaluation Start: 10/26/24 08:57 Freq: ONCE Status: Active Protocol: Document 10/26/24 11:11 ANDERS (Rec: 10/26/24 11:15 [facility] [id number]) Rehab OT IP Assessment Subjective History Per H&P: This is a 64-year-old male with a past medical history of morbid obesity, atrial fibrillation, HFrEF, diabetes with diabetic foot ulcers, chronic bilateral lower extremity edema, LORI who presents emergency department today with complaints of nausea vomiting and inability to intake oral. Patient started on Mounjaro approximately 2 months ago. Has recently increased his dose to 5 mg. at the bedside provides collateral and states that he has had 3 days of poor p.o. intake and significant moaning and groaning stating his belly hurts. She reports he has not eaten much. He endorses nausea but no significant vomiting. He denies fever. He does have bilateral lower extremity wounds that are being cared for at wound care. Emergency department workup notable for white blood cell count of 15. Potassium of 2.8, sodium of 127, anion gap of 18, glucose of 417 alk phos of 175, proBNP of 1500, lipase of 227. While in the emergency department he was noted to be in A-fib with RVR requiring IV metoprolol. Given his continued abdominal pain and inability to intake p.o., and A-fib with RVR it is felt he would benefit from hospitalization. He is admitted to hospital service at this time Subjective PLOF: Pt reports he has been having more trouble getting around his home and performing transfers. Pt normally uses a w/c and performs IND EOB<>w/c transfers . HOME: Lives in a single-story home with his sister. ADL: Pt reports he is normally independent with dressing, feeding, and bathing. Dependent on sister to complete all IADLS. ASSIST: Sister able to assist as needed. Objective Patient Orientation Person,Place,Birthday Right Upper WFL Extremity Gross ROM Left Upper Extremity WFL Gross ROM Transfer Training Sit/Stand/Pivot Transfer Assist Level Moderate x 1 (50% assist) Rehab OT IP prob,goals,plan Problems Date of Evaluation: 10/26/24 OT IP Problems Bed Mobility,Transfers,Balance,Self care,Safety Rehab Potential Rehab Potential Good Equipment Needs Assistive Devices Rolling / Wheeled Walker,Wheelchair Plan OT intervention Plan Bed Mobility,Transfers,Balance,Self care,Safety, Therapeutic Exercise OT Plan Frequency Daily Duration LOS Discharge Goals Bed Mobility Ability Assistance x1 Sit to Stand Chair Minimal x 1 (25% assist) Transfer Ability Chair Transfer Minimal x 1 (25% assist) Ability Chair Transfer Stand Step Pivot Technique Chair Transfer Rolling Walker Assistive Devices Lower Body Dressing Moderate Assistance Ability Upper Body Dressing Minimal Assistance Ability Performing Toilet Moderate Assistance Hygiene Ability Overall Commode/ Minimal Assistance Toilet Transfer Ability Commode/Toilet Stand Step Pivot Transfer Technique Discharge Plan OT Discharge Plan Pt will continue to be seen for OT services while at [facility]. At this time, pt would benefit most from short term rehab at [facility] following discharge. If patient is reluctant to short term rehab, pt would require 24/7 assistance from family upon returning home. Therapist would recommend OT evaluation as well. Continued skilled therapy is important in order for patient to improve strength, safety, endurance, ADL independence, and functional transfers to reach PLOF. Eval Complexity Eval Charge Codes 82132 - Moderate Complexity PHYSICIAN CERTIFICATION: I certify the specified therapy services for Bebeto Christiansen are required, authorized, and reviewed every 30 days.
[2024-10-26] MEDS: POTASSIUM CHLORIDE 20MEQ TAB 40 MEQ PO ×5 (12:08→23:30)
[2024-10-26] MEDS: TRAMADOL 50MG TABLET 50 MG PO (12:10)
[2024-10-26 12:22] LABS: POC Glucose,Bedside 260 (70-110)
[2024-10-26 13:38] LABS: Hemoglobin A1C > 14.0 % (4.0-6.0)
[2024-10-26] MEDS: ACETAMINOPHEN 325MG TAB 650 MG PO (14:56)
[2024-10-26] MEDS: TIZANIDINE 4MG TABLET 4 MG PO (15:00)
[2024-10-26] MEDS: SITAGLIPTIN 50MG TABLET 50 MG PO (15:00)
[2024-10-26] MEDS: BUMETANIDE 1 MG TABLET 2 MG PO (16:48)
[2024-10-26 16:59] LABS: POC Glucose,Bedside 253 (70-110)
[2024-10-26 18:01] LABS: Anion Gap 12.0 mEq/L (5-15); Blood Urea Nitrogen 29 mg/dl (9-20); Calcium 9.1 mg/dl (8.4-10.2); Carbon Dioxide 34 mmol/L (22.0-30.0); Chloride 83 mmol/L (98-107); Creatinine Clearance Estimated 50 mL/min (50-200); Creatinine,Serum 1.80 mg/dl (0.66-1.25); Estimated Glomerular Filt Rate 38 ml/min (>60); GFR (African American) 46 ML/MIN (>60); Glucose 260 mg/dl (74-100); Sodium 126 mmol/L (136-145)
[2024-10-26 18:09] LABS: Potassium 3.0 mmoL/L (3.5-5.1)
[2024-10-26] MEDS: 0.9 % SODIUM CHLORIDE 1000ML 500 ML IV (18:48)
[2024-10-26] MEDS: PRO-STAT AWC 30ML LIQUID PACKET 30 ML PO (21:00)
[2024-10-26] MEDS: TRAMADOL 50MG TABLET 75 MG PO (22:00)
[2024-10-26 22:17] LABS: POC Glucose,Bedside 211 (70-110)
--- NOTE | 2024-10-26 22:24 | EXP.PN ---
Subjective *Date: 11/08/24 *Time: 04:47 Interval history: Patient feels slightly better today, continues to have decreased oral appetite and intermittent nausea. Exam Data for Last 24 hours Vital signs and Labs for Last 24 Hours: Temp Pulse Resp BP Pulse Ox O2 Del Method 97.5 F L 89 19 96/59 L 97 Room Air 10/26/24 20:00 10/26/24 20:00 10/26/24 20:00 10/26/24 20:00 10/26/24 20:00 10/26/24 20:00 Laboratory Results - last 24 hr 10/25/24 00:01: Lactate 2.7 H, Troponin I 0.03 10/26/24 01:32: POC Glucose 364 H* 10/26/24 05:21: POC Glucose 319 H* 10/26/24 05:25: Urine Color Yellow, Urine Appearance Clear, Urine pH 7.0, Ur Specific [place] 1.010, Urine Protein 1+ A, Urine Glucose (UA) 3+, Urine Ketones Trace, Urine Blood Negative, Urine Nitrate Negative, Urine Bilirubin Negative, Urine Urobilinogen 0.2, Ur Leukocyte Esterase 2+ A, Urine RBC 5-10, Urine WBC 20-50, Ur Squamous Epith Cells 5-10, Ur Transition Epith Cell 3-5, Calcium Oxalate Crystal Trace, Urine Bacteria 3+, Urine Mucus 1+, Urine Yeast 1+ 10/26/24 08:22: WBC 13.0 H, RBC 5.23, Hgb 11.0 L, Hct 36.7 L, MCV 70.2 L, MCH 21.0 L, MCHC 30.0 L, RDW 19.8 H, Plt Count 360, MPV 9.1, Neut % (Auto) 76.3, Lymph % (Auto) 15.4, [place] % (Auto) 6.9, Eos % (Auto) 0.8, Baso % (Auto) 0.3, Neut # (Auto) 9.9 H, Lymph # (Auto) 2.0, [place] # (Auto) 0.9, Eos # (Auto) 0.1, Baso # (Auto) 0.0, Sodium 126 L, Potassium 3.1 L, Chloride 81 L, Carbon Dioxide 31 H, Anion Gap 17.1 H, BUN 31 H, Creatinine 1.60 H D, Estimated Creat Clear 56, Estimated GFR 44 L, Est GFR ( Amer) 53 L D, Glucose 304 H D, Hemoglobin A1c > 14.0 H D, Calcium 9.2, Phosphorus 3.0 D, Magnesium 2.2, Total Bilirubin 0.6, AST 21, ALT 12, Alkaline Phosphatase 129 H, Total Protein 6.2 L, Albumin 3.3 L D, Globulin 2.9, Albumin/Globulin Ratio 1.1 10/26/24 08:24: POC Glucose 346 H* 10/26/24 12:13: POC Glucose 260 H 10/26/24 16:47: POC Glucose 253 H 10/26/24 17:37: Sodium 126 L, Potassium 3.0 L, Chloride 83 L, Carbon Dioxide 34 H, Anion Gap 12.0, BUN 29 H, Creatinine 1.80 H, Estimated Creat Clear 50, Estimated GFR 38 L, Est GFR ( Amer) 46 L, Glucose 260 H, Calcium 9.1 10/26/24 22:02: POC Glucose 211 H I & O for Last 24 hours: Intake & Output 10/23/24 10/24/24 10/25/24 10/26/24 23:59 23:59 23:59 23:59 Intake Total 1540 / 1540 Output Total 300 / 300 Balance 1240 / 1240 Weight 158.757 kg 168.396 kg Microbiology Reports for the Last 24 Hours: Microbiology 10/25/24 18:00 Blood Blood Culture - Preliminary 10/25/24 15:54 Blood Blood Culture - Preliminary NO GROWTH AFTER 24 HOURS Constitutional Constitutional: mild distress, morbidly obese, chronically ill appearing and cooperative *Routine HEENT Exam Head: Present normocephalic and atraumatic Eye: Present EOMI and PERRL ENT: Present mucous membranes moist Comments: dime sized abrasion on upper lip *Routine Neck Exam Neck: Present supple *Routine Respiratory Exam Respiratory: Present rhonchi, distant breath sounds, normal respiratory effort and symmetric chest movement; Absent wheezes or crackles *Routine Cardiovascular Exam Cardiovascular: Present Normal S1, Normal S2 and irregularly irregular *Routine Abdominal Exam Abdominal: Present soft, normoactive bowel sounds and obese; Absent tenderness *Routine Rectal Exam Patient deferred: visual exam Comments: Chronic decubitus wounds on bottom and upper portions of inner posterior thighs. Stage II *Routine Exam Comments: Severely retracted penis *Routine Extremities Exam Extremities: Present edema, full ROM and normal capillary refill *Routine Skin Exam Skin: Present dry and warm Comments: Severe wounds on bilateral shins, left worse than right. Bandages in place that are dry. Poor blood flow to feet, blue discoloration of toes which is chronic and stable *Routine Neurological Exam Neurological: Present alert, oriented X3 and moving all extremities; Absent altered mental status Detailed Neck Exam: Thyroids Thyroid: Absent bruit Assessment and Plan *Assessment and plan (1) Acute hyponatremia: Status: Acute Category: Medical Code(s): E87.1 - Hypo-osmolality and hyponatremia (2) Hyperglycemia: Status: Acute Category: Medical Code(s): R73.9 - Hyperglycemia, unspecified (3) Atrial fibrillation with rapid ventricular response: Status: Acute Category: Medical Code(s): I48.91 - Unspecified atrial fibrillation (4) Nausea & vomiting: Status: Acute Category: Medical Code(s): R11.2 - Nausea with vomiting, unspecified (5) Morbid obesity with BMI of 45.0-49.9, adult: Status: Acute Category: Medical Code(s): E66.01 - Morbid (severe) obesity due to excess calories; Z68.42 - Body mass index [BMI] 45.0-49.9, adult (6) Atrial fibrillation with RVR: Status: Acute Category: Medical Code(s): I48.91 - Unspecified atrial fibrillation (7) Chronic wound: Status: Acute Category: Medical Code(s): T14.8XXA - Other injury of unspecified body region, initial encounter (8) Bilateral edema of lower extremity: Status: Acute Category: Medical Code(s): R60.0 - Localized edema (9) Diabetes mellitus: Status: Acute Qualifiers: Diabetes mellitus complication status: with hyperglycemia Diabetes mellitus mcfp insulin use: without intermediate frame tender use Diabetes mellitus type: type 2 Qualified Code(s): E11.65 - Type 2 diabetes mellitus with hyperglycemia Category: Medical Code(s): E11.9 - Type 2 diabetes mellitus without complications Plan #Nausea and vomiting Recently increased dose of Mounjaro. Likely contributing cause. Patient reports poor p.o. intake over the last 3 days. Might have gastric tenderness noted. Lipase of 227. Patient p.o. tolerance has improved today, but continues to have decreased appetite and intermittent nausea. #Metabolic alkalosis #Hypokalemia #Hyponatremia #Hypochloremia Present on prior hospitalization as well. Does not appear to be an overloaded at this time so we will de-escalate patient's home Bumex Will will continue patient's home acetazolamide daily Electrolyte protocol initiated Sodium of 127 noted today. Likely partially falsely elevated given hyperglycemia with glucose of 427 on arrival to the ED. Chloride of 79. #Acute on chronic HFpEF Mildly elevated BNP but patient appears dry/euvolemic on exam Will restart Bumex today Continue acetazolamide 1500 mL fluid restriction #His atrial fibrillation with RVR Noted to have heart rate in the 120s upon arrival to the emergency department requiring IV metoprolol Continue as needed IV metoprolol if needed. Restart home oral metoprolol in a.m. #Lower extremity edema/lymphedema #Chronic ulceration of lower legs and buttocks Foul-smelling drainage noted. Patient was previously on Levaquin. Will continue Continue Lyrica for pain control Continue home tramadol Will consult wound care for ulcers #Morbid obesity Complicates all aspects of care #Diabetes with hyperglycemia Continue sliding scale insulin Continue glargine twice a day #LORI Continue home oxygen
[2024-10-27] VITALS: BP 112/70; PULSE 90; RESP 18; TEMP 36.5; O2SAT 97
--- NOTE | 2024-10-27 00:15 | PC.NURSE ---
Pt refused wound care, stated he was sleeping and that they already did it for today. He just wants his pain meds. Pt asked for door to be shut after nurse gave pt meds.
[2024-10-27] MEDS: ACETAMINOPHEN 325MG TAB 650 MG PO (00:39)
[2024-10-27] MEDS: POTASSIUM CHLORIDE 20MEQ TAB 40 MEQ PO ×3 (02:30→13:13)
[2024-10-27 04:00] VITALS: BP 121/59; PULSE 75; PULSE 90; RESP 17; TEMP 36.8; O2SAT 99; BMI 46.1
--- NOTE | 2024-10-27 05:23 | PC.NURSE ---
v/s, ox4. Pt up in chair. Pt c/o pain, treated per JUN. No acute events to report. Plan of care ongoing.
[2024-10-27 06:21] LABS: Hematocrit 37.3 % (42.0-52.0); Hemoglobin 11.2 g/dL (14.1-18.0); Immature Granulocytes % 0.5 %; Mean Corpuscular HGB Conc 30.0 g/dL (31.8-35.4); Mean Corpuscular Hemoglobin 21.4 pg (27.0-31.2); Mean Corpuscular Volume 71.3 fl (80-94); Nucleated Red Blood Cells % 0 %; Platelet Count 410 K/mm3 (142-424); Red Blood Count 5.23 M/mm3 (4.60-6.20); Red Cell Distribution Width-SD 49.2 fL; White Blood Count 14.8 K/mm3 (4.8-10.8)
[2024-10-27 06:28] LABS: Alanine Aminotransferase 11 U/L (12-78); Albumin Level 3.9 g/dl (3.5-5.0); Albumin/Globulin Ratio 1.1 (1.1-1.8); Alkaline Phosphatase 136 U/L (38-126); Anion Gap 15.5 mEq/L (5-15); Aspartate Amino Transferase 22 U/L (17-59); Bilirubin,Total 0.5 mg/dl (0.2-1.3); Blood Urea Nitrogen 33 mg/dl (9-20); Calcium 9.5 mg/dl (8.4-10.2); Carbon Dioxide 36 mmol/L (22.0-30.0); Chloride 81 mmol/L (98-107); Creatinine Clearance Estimated 50 mL/min (50-200); Creatinine,Serum 1.80 mg/dl (0.66-1.25); Estimated Glomerular Filt Rate 38 ml/min (>60); GFR (African American) 46 ML/MIN (>60); Globulin 3.6 g/dL (1.3-3.2); Glucose 211 mg/dl (74-100); Magnesium 2.4 mg/dl (1.6-2.3); Potassium 3.5 mmoL/L (3.5-5.1); Sodium 129 mmol/L (136-145); Total Protein,Serum 7.5 g/dl (6.3-8.2)
[2024-10-27] MEDS: SITAGLIPTIN 50MG TABLET 50 MG PO (06:55)
[2024-10-27] MEDS: humaLOG 100 UNITS/ML 10ML VIAL (SSI) SUBCUT ×3 (06:57→16:48)
[2024-10-27 07:05] LABS: POC Glucose,Bedside 187 (70-110)
[2024-10-27 08:00] VITALS: BP 103/61; PULSE 85; RESP 18; TEMP 36.9; O2SAT 99
[2024-10-27] MEDS: CEFTRIAXONE 1 GM 1 GM in 0.9 % SODIUM CHLORIDE 50 ML IV (09:38)
[2024-10-27] MEDS: TIZANIDINE 4MG TABLET 4 MG PO (09:38)
[2024-10-27] MEDS: PRO-STAT AWC 30ML LIQUID PACKET 30 ML PO (09:40)
[2024-10-27] MEDS: METOPROLOL SUCCINATE XL 25MG TABLET 25 MG PO (10:43)
[2024-10-27] MEDS: INSULIN GLARGINE 100 UNITS/ML 3ML FLEXPEN 60 UNIT SUBCUT (10:43)
[2024-10-27] MEDS: PREGABALIN 100MG CAPSULE 100 MG PO ×2 (10:43→14:08)
[2024-10-27] MEDS: TRAMADOL 50MG TABLET 75 MG PO (10:54)
[2024-10-27 11:28] LABS: POC Glucose,Bedside 249 (70-110)
[2024-10-27 12:00] VITALS: BP 109/60; PULSE 90; RESP 16; TEMP 36.9; O2SAT 95
--- NOTE | 2024-10-27 13:13 | EXP.DC.SUM ---
General Admission date:: 10/25/24 HPI HPI HPI: This is a 64-year-old male with a past medical history of morbid obesity, atrial fibrillation, HFrEF, diabetes with diabetic foot ulcers, chronic bilateral lower extremity edema, LORI who presents emergency department today with complaints of nausea vomiting and inability to intake oral. Patient started on Mounjaro approximately 2 months ago. Has recently increased his dose to 5 mg. at the bedside provides collateral and states that he has had 3 days of poor p.o. intake and significant moaning and groaning stating his belly hurts. She reports he has not eaten much. He endorses nausea but no significant vomiting. He denies fever. He does have bilateral lower extremity wounds that are being cared for at wound care. Emergency department workup notable for white blood cell count of 15. Potassium of 2.8, sodium of 127, anion gap of 18, glucose of 417 alk phos of 175, proBNP of 1500, lipase of 227. While in the emergency department he was noted to be in A-fib with RVR requiring IV metoprolol. Given his continued abdominal pain and inability to intake p.o., and A-fib with RVR it is felt he would benefit from hospitalization. He is admitted to hospital service at this time Hospital Course Hospital Course Hospital Course: Bebeto Christiansen is a 64-year-old male who presented with intractable nausea/vomiting and was admitted for the same. #Intractable nausea/vomiting #Medication side effect #Severe electrolyte abnormalities ? Presented with intractable nausea/vomiting in the setting of recent dose increase of Mounjaro to 5 mg weekly yesterday. Patient states he has been tolerating Mounjaro 2.5 mg weekly prior to this. ? Symptoms self resolved with time. Hypokalemia, hyponatremia, hyperchloremia improved with fluid resuscitation and improvement in oral intake. ? Currently tolerating p.o. intake without issues. ? Advised patient follow-up with his PCP to further discuss Mounjaro dosing, and to hold off Mounjaro until then. #Type 2 diabetes ? Hemoglobin A1c greater than 14%, mildly worsened from 10.5% just 2 months ago after starting Mounjaro. ? Thoroughly educated on nutritional changes. ? Started Januvia 50 mg daily. ? Continue home Lantus 60 units twice daily. ? Patient previously intolerant to metformin, holding off on SGLT2i due skin breakdown in the groin area. ? Continue home pregabalin 100 mg 3 times daily. #UTI ? Discharge with levofloxacin for 5 more days. #HFpEF #Lower extremity wounds ? Currently euvolemic. Lower extremities look the best they have looked in months. No signs of volume overload. ? Continue home Bumex 2 mg twice daily, metolazone 2.5 mg daily. Continue to hold off on spironolactone due to refractory hyperkalemia in the past. ? Continue follow-up with wound care for lower extremity dressing changes. ? Continue home tramadol, tizanidine for lower extremity wound pain. #Anxiety/depression ? Patient states his anxiety is not well-controlled with paroxetine, switched to Lexapro 20 mg daily. ? Follow-up with PCP for further evaluation management. Total time spent on discharge: 32 minutes on chart review, counseling, documentation, and direct care with patient. Exam Data for Last 24 hours Vital signs and Labs for Last 24 Hours: Temp Pulse Resp BP Pulse Ox O2 Del Method 98.4 F 85 18 103/61 L 99 Room Air 10/27/24 08:00 10/27/24 08:00 10/27/24 08:00 10/27/24 08:00 10/27/24 08:00 10/27/24 11:24 Laboratory Results - last 24 hr 10/26/24 05:25: Urine Color Yellow, Urine Appearance Clear, Urine pH 7.0, Ur Specific [place] 1.010, Urine Protein 1+ A, Urine Glucose (UA) 3+, Urine Ketones Trace, Urine Blood Negative, Urine Nitrate Negative, Urine Bilirubin Negative, Urine Urobilinogen 0.2, Ur Leukocyte Esterase 2+ A, Urine RBC 5-10, Urine WBC 20-50, Ur Squamous Epith Cells 5-10, Ur Transition Epith Cell 3-5, Calcium Oxalate Crystal Trace, Urine Bacteria 3+, Urine Mucus 1+, Urine Yeast 1+ 10/26/24 08:22: Hemoglobin A1c > 14.0 H D 10/26/24 16:47: POC Glucose 253 H 10/26/24 17:37: Sodium 126 L, Potassium 3.0 L, Chloride 83 L, Carbon Dioxide 34 H, Anion Gap 12.0, BUN 29 H, Creatinine 1.80 H, Estimated Creat Clear 50, Estimated GFR 38 L, Est GFR ( Amer) 46 L, Glucose 260 H, Calcium 9.1 10/26/24 22:02: POC Glucose 211 H 10/27/24 06:03: WBC 14.8 H, RBC 5.23, Hgb 11.2 L, Hct 37.3 L, MCV 71.3 L, MCH 21.4 L, MCHC 30.0 L, RDW 19.8 H, Plt Count 410, MPV 9.0, Neut % (Auto) 70.6, Lymph % (Auto) 20.7, [place] % (Auto) 5.9, Eos % (Auto) 2.0, Baso % (Auto) 0.3, Neut # (Auto) 10.4 H, Lymph # (Auto) 3.1, [place] # (Auto) 0.9, Eos # (Auto) 0.3, Baso # (Auto) 0.1, Sodium 129 L, Potassium 3.5, Chloride 81 L, Carbon Dioxide 36 H, Anion Gap 15.5 H, BUN 33 H, Creatinine 1.80 H, Estimated Creat Clear 50, Estimated GFR 38 L, Est GFR ( Amer) 46 L, Glucose 211 H, Calcium 9.5, Magnesium 2.4 H, Total Bilirubin 0.5, AST 22, ALT 11 L, Alkaline Phosphatase 136 H, Total Protein 7.5, Albumin 3.9 D, Globulin 3.6 H, Albumin/Globulin Ratio 1.1 10/27/24 06:57: POC Glucose 187 H 10/27/24 10:42: POC Glucose 249 H I & O for Last 24 hours: Intake & Output 10/24/24 10/25/24 10/26/24 10/27/24 23:59 23:59 23:59 23:59 Intake Total 1540 / 1780 770 / 770 Output Total 300 / 300 300 / 300 Balance 1240 / 1480 470 / 470 Weight 158.757 kg 168.396 kg 168.396 kg Microbiology Reports for the Last 24 Hours: Microbiology 10/25/24 18:00 Blood Aerobic Organism ID Result 1 - Final Not Reportable 10/25/24 18:00 Blood Aerobic Organism ID Result 2 - Final Not Reportable 10/25/24 18:00 Blood Aerobic Organism ID Result 3 - Final Not Reportable 10/25/24 18:00 Blood Aerobic Organism ID Result 4 - Final Not Reportable 10/25/24 18:00 Blood Antimicrobic Susceptibility - Final Not Reportable 10/25/24 18:00 Blood Blood Culture - Preliminary Gram Positive Cocci 10/26/24 05:25 Urine,Clean Catch Urine Culture - Preliminary Gram Negative Rods 10/25/24 15:54 Blood Blood Culture - Preliminary NO GROWTH AFTER 24 HOURS Constitutional Constitutional: no acute distress and obese *Routine HEENT Exam Head: Present normocephalic Eye: Present EOMI and PERRL ENT: Present mucous membranes moist *Routine Neck Exam Neck: Present supple; Absent lymphadenopathy *Routine Respiratory Exam Respiratory: Present CTA bilaterally *Routine Cardiovascular Exam Cardiovascular: Present RRR *Routine Abdominal Exam Abdominal: Present soft and normoactive bowel sounds; Absent tenderness *Routine Extremities Exam Extremities: Present edema; Absent cyanosis or clubbing *Routine Skin Exam Skin: Present warm; Absent rash *Routine Neurological Exam Neurological: Present alert and oriented X3 Results Data Completed and Pending Labs on day of discharge: Labs from last 24 hours 10/27/24 10/27/24 10/27/24 10:42 06:57 06:03 WBC 14.8 H RBC 5.23 Hgb 11.2 L Hct 37.3 L MCV 71.3 L MCH 21.4 L MCHC 30.0 L RDW 19.8 H Plt Count 410 MPV 9.0 Neut % (Auto) 70.6 Lymph % (Auto) 20.7 [place] % (Auto) 5.9 Eos % (Auto) 2.0 Baso % (Auto) 0.3 Neut # (Auto) 10.4 H Lymph # (Auto) 3.1 [place] # (Auto) 0.9 Eos # (Auto) 0.3 Baso # (Auto) 0.1 Sodium 129 L Potassium 3.5 Chloride 81 L Carbon Dioxide 36 H Anion Gap 15.5 H BUN 33 H Creatinine 1.80 H Estimated Creat Clear 50 Estimated GFR 38 L Est GFR ( Amer) 46 L Glucose 211 H POC Glucose 249 H 187 H Hemoglobin A1c Calcium 9.5 Magnesium 2.4 H Total Bilirubin 0.5 AST 22 ALT 11 L Alkaline Phosphatase 136 H Total Protein 7.5 Albumin 3.9 D Globulin 3.6 H Albumin/Globulin Ratio 1.1 Urine Color Urine Appearance Urine pH Ur Specific [place] Urine Protein Urine Glucose (UA) Urine Ketones Urine Blood Urine Nitrate Urine Bilirubin Urine Urobilinogen Ur Leukocyte Esterase Urine RBC Urine WBC Ur Squamous Epith Cells Ur Transition Epith Cell Calcium Oxalate Crystal Urine Bacteria Urine Mucus Urine Yeast 10/26/24 10/26/24 10/26/24 22:02 17:37 16:47 WBC RBC Hgb Hct MCV MCH MCHC RDW Plt Count MPV Neut % (Auto) Lymph % (Auto) [place] % (Auto) Eos % (Auto) Baso % (Auto) Neut # (Auto) Lymph # (Auto) [place] # (Auto) Eos # (Auto) Baso # (Auto) Sodium 126 L Potassium 3.0 L Chloride 83 L Carbon Dioxide 34 H Anion Gap 12.0 BUN 29 H Creatinine 1.80 H Estimated Creat Clear 50 Estimated GFR 38 L Est GFR ( Amer) 46 L Glucose 260 H POC Glucose 211 H 253 H Hemoglobin A1c Calcium 9.1 Magnesium Total Bilirubin AST ALT Alkaline Phosphatase Total Protein Albumin Globulin Albumin/Globulin Ratio Urine Color Urine Appearance Urine pH Ur Specific [place] Urine Protein Urine Glucose (UA) Urine Ketones Urine Blood Urine Nitrate Urine Bilirubin Urine Urobilinogen Ur Leukocyte Esterase Urine RBC Urine WBC Ur Squamous Epith Cells Ur Transition Epith Cell Calcium Oxalate Crystal Urine Bacteria Urine Mucus Urine Yeast 10/26/24 10/26/24 08:22 05:25 WBC RBC Hgb Hct MCV MCH MCHC RDW Plt Count MPV Neut % (Auto) Lymph % (Auto) [place] % (Auto) Eos % (Auto) Baso % (Auto) Neut # (Auto) Lymph # (Auto) [place] # (Auto) Eos # (Auto) Baso # (Auto) Sodium Potassium Chloride Carbon Dioxide Anion Gap BUN Creatinine Estimated Creat Clear Estimated GFR Est GFR ( Amer) Glucose POC Glucose Hemoglobin A1c > 14.0 H D Calcium Magnesium Total Bilirubin AST ALT Alkaline Phosphatase Total Protein Albumin Globulin Albumin/Globulin Ratio Urine Color Yellow Urine Appearance Clear Urine pH 7.0 Ur Specific [place] 1.010 Urine Protein 1+ A Urine Glucose (UA) 3+ Urine Ketones Trace Urine Blood Negative Urine Nitrate Negative Urine Bilirubin Negative Urine Urobilinogen 0.2 Ur Leukocyte Esterase 2+ A Urine RBC 5-10 Urine WBC 20-50 Ur Squamous Epith Cells 5-10 Ur Transition Epith Cell 3-5 Calcium Oxalate Crystal Trace Urine Bacteria 3+ Urine Mucus 1+ Urine Yeast 1+ Preliminary micro results at discharge 10/25/24 18:00 Blood Culture - Preliminary Blood Gram Positive Cocci 10/26/24 05:25 Urine Culture - Preliminary Urine,Clean Catch Gram Negative Rods 10/25/24 15:54 Blood Culture - Preliminary Blood NO GROWTH AFTER 24 HOURS DS: Diagnosis Discharge Diagnosis (1) Acute hyponatremia: Status: Acute Code(s): E87.1 - Hypo-osmolality and hyponatremia (2) Hyperglycemia: Status: Acute Code(s): R73.9 - Hyperglycemia, unspecified (3) Atrial fibrillation with rapid ventricular response: Status: Acute Code(s): I48.91 - Unspecified atrial fibrillation (4) Nausea & vomiting: Status: Acute Code(s): R11.2 - Nausea with vomiting, unspecified (5) Morbid obesity with BMI of 45.0-49.9, adult: Status: Acute Code(s): E66.01 - Morbid (severe) obesity due to excess calories; Z68.42 - Body mass index [BMI] 45.0-49.9, adult (6) Chronic wound: Status: Acute Code(s): T14.8XXA - Other injury of unspecified body region, initial encounter (7) Bilateral edema of lower extremity: Status: Acute Code(s): R60.0 - Localized edema (8) Diabetes mellitus: Status: Acute Code(s): E11.9 - Type 2 diabetes mellitus without complications Qualifiers: Diabetes mellitus complication status: with hyperglycemia 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: without senior care use Diabetes mellitus type: type 2 Qualified Code(s): E11.65 - Type 2 diabetes mellitus with hyperglycemia Meds Home Medications and Allergies Home Medications ?Medication ?Instructions ?Recorded ?Confirmed ?Type insulin lispro 100 unit/mL See Protocol SQ ACHS 30 days #1.2 08/01/24 11/04/24 Rx subcutaneous solution (Humalog mL U-100 Insulin) apixaban 5 mg tablet (Eliquis) 5 mg PO BID 30 days #60 tabs 09/22/24 11/04/24 Rx bumetanide 2 mg tablet 2 mg PO BID 30 days #90 tabs 10/07/24 11/04/24 Rx metolazone 2.5 mg tablet 2.5 mg PO DAILY 30 days #60 tabs 10/07/24 11/04/24 Rx potassium chloride 20 mEq 40 meq (2 x 20 mEq) PO DAILY 30 10/07/24 11/04/24 Rx tablet,extended days #60 tabs release(part/cryst) (Klor-Con M) insulin glargine 100 unit/mL (3 60 unit SQ BID 10/11/24 11/04/24 History mL) subcutaneous pen (Lantus Solostar U-100 Insulin) ondansetron 4 mg disintegrating 4 mg PO Q6H PRN nausea and 10/11/24 11/04/24 Rx tablet vomiting #30 tabs escitalopram oxalate 20 mg tablet 20 mg PO DAILY 30 days #30 tabs 10/27/24 11/04/24 Rx (Lexapro) levofloxacin 750 mg tablet 750 mg PO DAILY 8 days #8 tabs 10/27/24 11/04/24 Rx ondansetron HCl 4 mg tablet 4 mg PO Q6H PRN nausea and 10/27/24 11/04/24 Rx vomiting #14 tabs tirzepatide 2.5 mg/0.5 mL 2.5 mg (0.5 mL) SQ WEEKLY 30 days 11/04/24 11/04/24 Rx subcutaneous pen injector #2.5 mL (Romario) tizanidine 4 mg capsule 4 mg PO HSP PRN muscle spasticity 11/04/24 11/04/24 Rx #30 caps tizanidine 4 mg tablet 4 mg PO 11/04/24 11/04/24 History tramadol 75 mg tablet 75 mg PO Q6HP PRN Moderate Pain 11/04/24 11/04/24 Rx (Scale Score 5-6) #120 tabs metoprolol succinate 25 mg 25 mg PO DAILY 30 days #30 tabs 11/09/24 Rx tablet,extended release 24 hr pregabalin 100 mg capsule 100 mg PO TID 30 days #90 caps 11/09/24 Rx New Prescriptions to Start Prescriptions: escitalopram oxalate [Lexapro] Jorge A Martin levofloxacin Jorge A Martin ondansetron HCl Jorge A Martin Allergies Allergy/AdvReac Type Severity Reaction Status Date / Time sitagliptin (From Januvia) AdvReac Severe Verified 11/04/24 11:24 hydromorphone (From Dilaudid) AdvReac Vomiting Verified 11/04/24 11:24 morphine AdvReac Vomiting Verified 11/04/24 11:24 Discharge Plan Disposition Patient Disposition: Home, Self-Care Condition: Fair Follow up Plan Follow up with: Saulo Martinez DO [Primary Care Provider, [facility]] - 11/04/24 11:00 am Prescriptions/Medication Reconciliation: New escitalopram oxalate [Lexapro] 20 mg tablet 20 mg PO DAILY 30 Days Qty: 30 0RF levofloxacin 750 mg tablet 750 mg PO DAILY 8 Days Qty: 8 0RF ondansetron HCl 4 mg tablet 4 mg PO Q6H PRN (Reason: nausea and vomiting) Qty: 14 0RF Continued ondansetron 4 mg tablet,disintegrating 4 mg PO Q6H PRN (Reason: nausea and vomiting) Qty: 30 3RF insulin glargine [Lantus Solostar U-100 Insulin] 100 unit/mL (3 mL) insulin pen 60 unit SQ BID insulin lispro [Humalog U-100 Insulin] 100 unit/mL Solution See Protocol SQ ACHS 30 Days Qty: 1.2 4RF Protocol: Insulin Corrective Med-Dose Regimen Condition: Fingerstick Blood Glucose Dose/Route: Insulin Units Condition: 151-200 mg/dl Dose/Route: 2 units/SQ Condition: 201-250 mg/dl Dose/Route: 5 units/SQ Condition: 251-300 mg/dl Dose/Route: 8 units/SQ Condition: 301-350 mg/dl Dose/Route: 10 units/SQ Condition: 351-400 mg/dl Dose/Route: 12 units/SQ Condition: 401-450 mg/dl Dose/Route: 15 units/SQ Condition: > 450 mg/dl Dose/Route: CALL MD Protocol Text: Medium Intensity Sliding Scale Insulin Eliquis 5 mg Tablet 5 mg PO BID 30 Days Qty: 60 0RF potassium chloride [Klor-Con M20] 20 mEq Tablet,Er Particles/Crystals 40 meq PO DAILY 30 Days Qty: 60 0RF metolazone 2.5 mg Tablet 2.5 mg PO DAILY 30 Days Qty: 60 0RF bumetanide 2 mg tablet 2 mg PO BID 30 Days Qty: 90 0RF Discontinued Mounjaro 5 mg/0.5 mL pen injector 5 mg SQ WEEKLY Qty: 2 2RF paroxetine HCl 20 mg Tablet 20 mg PO DAILY tizanidine 4 mg capsule 4 mg PO HSP PRN (Reason: muscle spasticity) No Action tizanidine 4 mg tablet 4 mg PO Patient Comments: TAKE ONE CAPSULE BY MOUTH AT BEDTIME NEEDED FOR muscle spasticity tizanidine 4 mg capsule 4 mg PO HSP PRN (Reason: muscle spasticity) Qty: 30 0RF tramadol 75 mg tablet 75 mg PO Q6HP PRN (Reason: Moderate Pain (Scale Score 5-6)) Qty: 120 0RF Mounjaro 2.5 mg/0.5 mL pen injector 2.5 mg SQ WEEKLY 30 Days Qty: 2.5 0RF Rx Instructions: for 4 weeks pregabalin 100 mg capsule 100 mg PO TID 30 Days Qty: 90 0RF metoprolol succinate 25 mg tablet extended release 24 hr 25 mg PO DAILY 30 Days Qty: 30 0RF Problem Reconciliation Problems Reviewed?: Yes Patient Discharge Instructions Patient Instructions: DI for Heart Failure, DI for Atrial Fibrillation, DI for Urinary Tract Infection (UTI), DI for Hyponatremia, Nausea and Vomiting-Adult, Hypokalemia, Stop Light Heart Failure, Stop Light Infection Print Language: Spanish Providers Primary Care Provider: Saulo Martinez Admit Provider: Jorge A Martin Attending Provider: Jorge A Martin
[2024-10-27] MEDS: BUMETANIDE 1MG/4ML VIAL 2 MG IV (13:23)
[2024-10-27 17:07] LABS: POC Glucose,Bedside 207 (70-110)
[2024-10-28 09:25] LABS: Acinetobacter calcoaceticus-ba Not Detected; Bacteroides fragilis Not Detected; Candida auris Not Detected; Candida glabrata Not Detected; Enterobacterales Not Detected; Enterococcus faecalis Not Detected; Enterococcus faecium Not Detected; Klebsiella aerogenes Not Detected; Klebsiella pneumoniae grp Not Detected; Proteus spp. Not Detected; Salmonella spp. Not Detected; Serratia marcescens Not Detected; Staphylococcus epidermidis Detected; Staphylococcus lugdunensis Not Detected; Stenotrophomonas maltophilia Not Detected; Streptococcus agalactiae(GrpB) Not Detected; Streptococcus pyogenes Group A Not Detected; Streptococcus spp. Not Detected; mecA/C Detected
[2024-10-28 15:10] LABS: Staphylococcus spp. Detected
--- NOTE | 2024-10-29 10:30 | PC.NURSE ---
pts final urine culture results were sent to the hospitalist as the pt was admitted.
--- NOTE | 2024-10-30 12:21 | PC.NURSE ---
pts final urine culture results forwarded to the hospitalist as the pt was admitted.
--- NOTE | 2024-10-31 11:18 | SW/DCPLANNER ---
Phone patient X2, left voicemail.
--- NOTE | 2024-11-03 09:56 | PC.NURSE ---
Pts culture results forwarded to the hospitalist as the pt was admitted.
== END 2024-10-27 17:47 | disposition home or self-care (01) ==
LOC: ER 17:57 → 2ND 18:04
PROVIDERS: Admitting Provider Student in an Organized Health Care Education/Training Program; Emergency Provider Student in an Organized Health Care Education/Training Program; PCP Internal Medicine; Visit Provider Student in an Organized Health Care Education/Training Program
DX: R11.2 Nausea with vomiting, unspecified (principal); I48.91 Unspecified atrial fibrillation; E66.01 Morbid (severe) obesity due to excess calories; T14.8XXA Other injury of unspecified body region, initial encounter; R60.0 Localized edema; F32.A Depression, unspecified; E11.622 Type 2 diabetes mellitus with other skin ulcer; E11.65 Type 2 diabetes mellitus with hyperglycemia; E11.51 Type 2 diabetes mellitus with diabetic peripheral angiopathy without gangrene; F41.9 Anxiety disorder, unspecified; L97.929 Non-pressure chronic ulcer of unspecified part of left lower leg with unspecified severity; L98.419 Non-pressure chronic ulcer of buttock with unspecified severity; L97.919 Non-pressure chronic ulcer of unspecified part of right lower leg with unspecified severity; E87.3 Alkalosis; E87.1 Hypo-osmolality and hyponatremia; E87.6 Hypokalemia; I50.33 Acute on chronic diastolic (congestive) heart failure; N39.0 Urinary tract infection, site not specified; E87.8 Other disorders of electrolyte and fluid balance, not elsewhere classified; F17.200 Nicotine dependence, unspecified, uncomplicated; G47.33 Obstructive sleep apnea (adult) (pediatric); Z68.42 Body mass index [BMI] 45.0-49.9, adult; Z89.421 Acquired absence of other right toe(s); Z89.422 Acquired absence of other left toe(s); Z88.5 Allergy status to narcotic agent; Z88.8 Allergy status to other drugs, medicaments and biological substances; Z79.4 Long term (current) use of insulin; Z79.01 Long term (current) use of anticoagulants; Z79.899 Other long term (current) drug therapy
CPT/HCPCS: 96361; 96365; 96375; 96376 ×2; 36415; 71045; 80048; 80053; 81001; 82803; 82962; 83036; 83605; 83690; 83735; 83880; 84100; 84484; 85025; 87040; 87077; 87086; 87088; 87154; 87186; 93005; 97162; 97166; 97530; G0378; J0696; J1939; J2405; J3480; J7030

== ENCOUNTER 2024-12-06 13:15 | Observation (INO) | payer MEDICARE, SELFPAY ==
[2024-12-06] VITALS (13 sets, daily range): BP systolic 92–133; BP diastolic 42–83; PULSE 84–105; RESP 16–22; TEMP 36.5–37.1; O2SAT 94–100; BMI 46.8
--- NOTE | 2024-12-06 13:26 | ED_ITS ---
<Statement entered by Alfredo Dubon MD - 12/07/24 07:00> I was consulted by the KRISTY, and we discussed the complexity of the problems being addressed. I approve the treatment and management plan for this patient's care in the emergency department, thus performing a substantive portion of the medical decision making. Alfredo Dubon MD Discharge Plan Disposition Patient Disposition: Admitted Condition: Fair Clinical Impressions Clinical Impression: Cellulitis of leg, right, Acute kidney injury superimposed on chronic kidney disease, Acute hypokalemia Sepsis Qualifiers: Sepsis type: sepsis due to unspecified organism Sepsis acute organ dysfunction status: with acute organ dysfunction Severe sepsis acute organ dysfunction type: acute renal failure Acute renal failure type: unspecified Severe sepsis shock status: without septic shock Qualified Code(s): A41.9 - Sepsis, unspecified organism Diabetic foot ulcer Qualifiers: Diabetic foot ulcer location: unspecified part of foot Diabetes mellitus type: other specified (including ASHKAN) Laterality: unspecified laterality Non-pressure ulcer stage: unspecified non-pressure ulcer stage Qualified Code(s): E13.621 - Other specified diabetes mellitus with foot ulcer Discharge ED Provider: Alfredo Dubon General Adult HPI General Chief complaint: Wound/Laceration Stated complaint: laceration to right pinky toe Time Seen by Provider: 12/06/24 13:25 History of Present Illness HPI narrative: 64-year-old male with a history of diabetes presents to the emergency department with complaints of what he thinks is a laceration to his right foot. He states that he first noticed the wound yesterday. He is unsure of any injury to the area. He reports he does have chronic foot wounds that his sister has been doing every other day bandage changes. Related Data Home Medications ?Medication ?Instructions ?Recorded ?Confirmed insulin glargine 100 unit/mL (3 60 unit SQ BID 5 12/06/24 mL) subcutaneous pen (Lantus Solostar U-100 Insulin) apixaban 5 mg tablet (Eliquis) 5 mg PO BID 12/06/24 bumetanide 2 mg tablet 3 mg PO TID 12/06/24 5 metolazone 2.5 mg tablet 5 mg PO DAILY 12/06/2412/06 Previous Rx's ?Medication ?Instructions ?Recorded insulin lispro 100 unit/mL See Protocol SQ ACHS 30 day s #1.2 08/01/24 subcutaneous solution (Humalog mL U-100 Insulin) ondansetron 4 mg disintegrating 4 mg PO Q6H PRN nausea and 10/11/24 tablet vomiting #30 tabs ondansetron HCl 4 mg tablet 4 mg PO Q6H PRN nausea and 10/27/24 vomiting #14 tabs metoprolol succinate 25 mg 25 mg PO DAILY 30 days #30 tabs 11/18/24 tablet,extended release 24 hr potassium chloride 20 mEq See Rx Instructions .Route 0 11/18/24 tablet,extended release(part/cryst) .COMPLEX #60 tabs pregabalin 100 mg capsule 100 mg PO TID 30 days #90 ca ps 11/22/24 tirzepatide 2.5 mg/0.5 mL 2.5 mg (0.5 mL) SQ WEEKLY 30 days 11/22/24 subcutaneous pen injector #2.5 mL (Mounjaro) tizanidine 4 mg capsule 4 mg PO HSP PRN muscle spast icity 11/22/24 #30 caps tramadol 50 mg tablet 75 mg (1.5 x 50 mg) PO Q6H P RN 11/22/24 pain #180 tabs escitalopram oxalate 20 mg tablet 20 mg PO DAILY #90 t abs 11/23/24 (Lexapro) Allergies Allergy/AdvReac Type Severity Reaction Status Date / Time sitagliptin (From Januvia) AdvReac Severe Verified 11/22/24 08:34 hydromorphone (From Dilaudid) AdvReac Vomiting Verified 11/22/24 08:34 morphine AdvReac Vomiting Verified 11/22/24 08:34 PFS PFS Disclaimer: The information contained in this section may have been updated after the patient was seen, as this information can be updated by other users. Medical History Morbid obesity with BMI of 50.0-59.9, adult Atrial fibrillation Peripheral arterial disease Hypertension Diabetes mellitus Cellulitis of left lower extremity Venous stasis ulcer of both lower extremities without varicose veins Volume overload Cellulitis Acute on chronic heart failure with preserved ejection fraction (HFpEF) LORI (obstructive sleep apnea) Surgical History History of amputation of right fourth toe History of amputation of left fifth toe Family History Other No significant family history Social History Smoking Status: Former smoker alcohol intake: never current occupational status: retired and disabled Travel in the last 8 weeks?: None Have you lived/traveled outside US in past 30 days?: No Contact w/someone who lives/traveled outside US past 30 days?: No Exposure to someone with infectious disease in past 14 days?: No Do you have a fever (greater than 100.4 F or 38 C)?: No Have you tested positive for COVID-19?: No Exposed to someone with COVID-19 in past 14 days?: No Do you have a sore throat?: No Do you have a cough?: No Do you have any weakness?: No Do you have any diarrhea?: No Are you experiencing any unusual bleeding?: No Do you have any muscle aches/pain?: No Do you have any abdominal pain?: No Are you experiencing loss of taste or smell?: No Other Medical History Have you received the Flu Vaccine for this season: No Have you received the Pneumonia Vaccine: No ROS Obtained: Yes All systems reviewed & no additional complaints except as documented Integumentary/Breasts Comments: Wounds to bilateral feet, swelling to bilateral legs Physical Exam Narrative Physical exam: Patient with significant swelling to bilateral lower extremities. No pitting is noted at this time. Patient's skin is very dry and flaky to bilateral lower extremities as well. He does have erythema present that is more pronounced on the right leg as opposed to the left. Patient has toes that have been amputated on the bilateral feet. In addition he has what appears to be a chronic diabetic foot ulcer to the lateral aspect of his right foot there is foul odor coming from the wound as well as what appears to be some chronic tissue around the opening of the wound. Patient also has a chronic diabetic foot ulcer to his left foot as well however it is not as significant as the right. Patient is alert and oriented with no focal neurological deficits. He has sounds that are clear to auscultation bilaterally with normal heart sounds. Patient with decree sensation to bilateral lower extremities. 2+ pulses are present in all extremities. General General appearance: alert Respiratory Respiratory exam: Present normal lung sounds bilaterally Cardiovascular Cardiovascular exam: Present regular rate Neurological Exam Neurological exam: Present alert Medical Decision Making Medical Records Screening: Per USPSTF and CDC recommendations, given the prevalence of disease in our region, it is our hospital?s policy to screen for HIV and viral Hepatitis for all patients aged 18 and over and those with ongoing risk factors. Madi Inquiry Pt receiving controlled substance: No Vital Signs: 12/06/24 13:26 12/06/24 14:54 12/06/24 15:00 Temperature 98.4 F Temperature Source Oral Pulse Rate 86 84 Pulse Rate [Left Radial] 102 H Respiratory Rate 19 17 19 Blood Pressure 120/77 110/74 Blood Pressure [Right Arm] 133/65 Blood Pressure Mean 87 94 Blood Pressure Mean [Right Arm] 87 Blood Pressure Source [Right Arm] Automatic Cuff Blood Pressure Position [Right Arm] Sitting 02 Sat by Pulse Oximetry 95 100 98 Oxygen Delivery Method Room Air Room Air Room Air 12/06/24 16:08 12/06/24 16:16 12/06/24 16:31 Temperature Temperature Source Pulse Rate 89 88 88 Pulse Rate [Left Radial] Respiratory Rate 19 20 19 Blood Pressure 97/44 L 94/46 L 113/71 Blood Pressure [Right Arm] Blood Pressure Mean 61 54 85 Blood Pressure Mean [Right Arm] Blood Pressure Source [Right Arm] Blood Pressure Position [Right Arm] 02 Sat by Pulse Oximetry 97 96 96 Oxygen Delivery Method Room Air Room Air Room Air 12/06/24 17:13 12/06/24 17:15 12/06/24 17:31 Temperature Temperature Source Pulse Rate 105 H 89 Pulse Rate [Left Radial] Respiratory Rate 17 Blood Pressure 105/83 L 127/77 120/43 L Blood Pressure [Right Arm] Blood Pressure Mean 90 78 Blood Pressure Mean [Right Arm] Blood Pressure Source [Right Arm] Blood Pressure Position [Right Arm] 02 Sat by Pulse Oximetry 97 96 98 Oxygen Delivery Method Room Air 12/06/24 17:46 12/06/24 18:07 Temperature 98.7 F Temperature Source Pulse Rate 84 90 Pulse Rate [Left Radial] Respiratory Rate 19 19 Blood Pressure 118/74 118/74 Blood Pressure [Right Arm] Blood Pressure Mean 88 Blood Pressure Mean [Right Arm] Blood Pressure Source [Right Arm] Blood Pressure Position [Right Arm] 02 Sat by Pulse Oximetry 99 Oxygen Delivery Method Room Air Room Air Lab Data Lab Results 12/06/24 14:04: WBC 19.4 H, RBC 4.81, Hgb 10.1 L, Hct 33.2 L, MCV 69.0 L, MCH 21.0 L, MCHC 30.4 L, RDW 19.9 H, Plt Count 444 H, MPV 9.1, Neut % (Auto) 89.8 H, Lymph % (Auto) 6.0 L, Fountain % (Auto) 2.5, Eos % (Auto) 0.8, Baso % (Auto) 0.3, N eut # (Auto) 17.4 H, Lymph # (Auto) 1.2, Fountain # (Auto) 0.5, Eos # (Auto) 0.2, Baso # (Auto) 0.1, Sodium 128 L, Potassium 2.7 L*, Chloride 84 L, Carbon Dioxide 30, Anion Gap 16.7 H, BUN 49 H, Creatinine 2.80 H, Estimated Creat Clear 32, E stimated GFR 23 L, Est GFR ( Amer) 28 L, Glucose 285 H, Lactate 2.6 H, C alcium 8.3 L, Magnesium 2.0, Total Bilirubin 0.7, AST 20, ALT 12, Alkaline Phosphatase 232 H, Total Protein 6.3, Albumin 3.4 L, Globulin 2.9, Albumin/Globulin Ratio 1.2 12/06/24 14:23: SARS-CoV-2 (PCR) Not detected, Influenza A Untype (PCR) Not detected, Influenza Type B (PCR) Not detected 12/06/24 14:04 12/06/24 14:04 Orders (Tests/Meds): ED MEDICATIONS Generic Name Dose Route Start Last Admin Trade Name Freq PRN Reason Stop Dose Admin Acetaminophen 650 mg 12/06/24 18:54 Acetaminophen 325mg Tab PO 01/05/25 18:53 Q4HP PRN Fever or Mild Pain (1-3) Apixaban 5 mg 12/06/24 21:00 Apixaban 5mg Tablet PO 01/05/25 20:59 BID JESSICA Piperacillin Sod/Tazobactam 50 mls @ 100 mls/hr 12/06/24 19:00 Sod 3.375 gm/ Sodium Chloride IV 12/16/24 18:59 Q6H JESSICA Sodium Chloride 1,000 mls @ 50 mls/hr 12/06/24 19:00 Sod Chlor 0.9% 1000ml Bag IV 01/05/25 18:59 .Q20H [facility] Insulin Glargine 60 unit 12/06/24 21:00 Insulin Glargine 100 Units/Ml 3ml Flexpen SUBCUT 01/05/25 20:59 BID [facility] Insulin Human Lispro 0 unit 12/06/24 21:00 Humalog 100 Units/Ml 10ml Vial (Ssi) SUBCUT 01/05/25 20:59 ACHS [facility] Protocol Metoprolol Succinate 25 mg 12/07/24 09:00 Metoprolol Succinate Xl 25mg Tablet PO 01/06/25 08:59 DAILY [facility] Miscellaneous 1 each 12/06/24 19:00 Vancomycin Consult Request NOTAPPLIC 01/05/25 18:59 CONSULT PHARMACY [facility] Non-Formulary Medication 4 mg 12/06/24 20:05 Tizanidine PO HSP PRN muscle spasticity Ondansetron HCl 4 mg 12/06/24 18:54 Ondansetron 4mg/2ml Vial IV 01/05/25 18:53 Q8HP PRN Nausea Pregabalin 100 mg 12/06/24 21:00 Pregabalin 100mg Capsule PO 01/05/25 20:59 TID JESSICA Sodium Chloride 10 ml 12/06/24 18:54 Sodium Chloride 0.9% 10ml Flush Syringe IV 01/05/25 18:53 NEEDED PRN Maintain IV Site Tramadol HCl 75 mg 12/06/24 20:05 Tramadol 50mg Tablet PO 01/05/25 20:04 Q6H PRN pain Discontinued Medications Generic Name Dose Route Start Last Admin Trade Name Freq PRN Reason Stop Dose Admin Piperacillin Sod/Tazobactam 50 mls @ 100 mls/hr 12/06/24 14:36 12/06/24 15:42 Sod 3.375 gm/ Sodium Chloride IV 12/06/24 15:05 Infused ONCE ONE Infusion Vancomycin HCl 2,500 mg/ 500 mls @ 250 mls/hr 12/06/24 14:45 12/06/24 17:40 Sodium Chloride IV 12/06/24 16:44 Infused ONCE ONE Infusion Potassium Chloride/Water 100 mls @ 100 mls/hr 12/06/24 15:27 12/06/24 17:24 Potassium Chloride 10meq/100ml Ivpb IV 12/06/24 16:26 Infused ONCE ONE Infusion Miscellaneous 1 each 12/06/24 14:45 Vancomycin Consult Request NOTAPPLIC 01/05/25 14:44 CONSULT PHARMACY [facility] Potassium Chloride 40 meq 12/06/24 15:27 12/06/24 15:58 Potassium Chloride 20meq Tab PO 12/06/24 15:28 40 meq ONCE ONE Administration Sodium Chloride 500 ml 12/06/24 15:37 12/06/24 15:58 Sodium Chloride 0.9% 500ml Bag IV 12/06/24 15:38 500 ml ONCE ONE Administration ORDERS Category Date Time Status CT foot RT wo con Stat Cat Scan 12/06/24 13:56 Completed CBC w/Auto Diff [Complete Blood Count Auto Diff] Stat Lab 12/06/24 14:04 Completed CMP [Comprehensive Metabolic Panel] Stat Lab 12/06/24 14:04 Completed Lactate Venous Stat Lab 12/06/24 14:09 Ordered Lactic Acid Stat Lab 12/06/24 14:04 Completed Magnesium Stat Lab 12/06/24 14:04 Completed Rapid PCR Covid and Flu A/B Stat Lab 12/06/24 14:23 Completed Blood Culture Stat Micro 12/06/24 14:52 Received Wound Culture and Gram Stain Stat Micro 12/06/24 14:20 Results Medical Decision Narrative: Initial impression of presenting illness: 64-year-old male with a history of diabetes presents to the emergency department with complaints of laceration to his right foot that he first noticed last night. He reports that he has a history of diabetic foot ulcers and that his sister does every other day bandage changes however when they change the bandage yesterday they noticed that there was bleeding coming from his right foot and he assumed that he had a laceration. He denies fevers, he states he has not been following wound management. Differential diagnosis includes but not limited to: Cellulitis, osteomyelitis, abscess, laceration, uncontrolled diabetes, heart failure. Patient initially arrives hemodynamically stable, afebrile, without respiratory distress and vital signs interpreted by myself. Initial physical exam shows significant swelling to bilateral lower extremities. Patient's right lower extremity with erythema. Patient's skin is dry and flaky on both lower extremities. He also appears to have a chronic diabetic foot ulcer that is present to the lateral aspect of his right foot. There is a foul odor coming from the wound and what appears to be necrotic tissue surrounding the opening to the wound. In addition patient has a chronic diabetic ulcer to his left foot as well however that does not appear to be as significant as the right. The rest of exam is unremarkable. Initial diagnostic plan: CT of the right foot, laboratory studies including lactic acid and blood cultures, wound culture Results from initial plan were reviewed and interpreted by myself, pertinent positives include: White blood cell count was 19.4, potassium 2.7, lactic acid was 2.6, sodium was 128 with a chloride of 84. Patient has a history of chronic kidney disease with his last creatinine of 1.8 on October 27 and a BUN of 33. Today he has creatinine of 2.8 with a BUN of 40. Rest of laboratory studies were nonactionable. CT of right lower extremity was negative for osteomyelitis however cellulitis was present. The radiologist also made mention of a retained foreign body which according to patient's history that appears to be a chronic finding. Interventions in the ED: Patient was given both oral and IV potassium for supplementation as well as normal saline bolus to treat his acute on chronic kidney disease as well as his elevated lactic acid. Did not give patient the normal saline bolus for sepsis protocol as he is already very edematous and appears to be chronically fluid overloaded. Patient was also started on vancomycin and Zosyn to treat his cellulitis. Patient was made aware of the results and the findings, upon reevaluation patient has remained stable throughout stay, symptoms remain stable upon reevaluation patient is resting comfortably in his room with no signs of acute distress. Consultation/discussion with other physicians: Spoke with hospitalist Dr. Martin regarding patient's presenting complaint and workup findings. He was agreeable to admit patient for further treatment. Disposition: I reviewed the findings today's workup with patient and informed that it appears he has an infection in his leg as well as acute on chronic kidney disease. Advised him that we would like to admit him for further treatment of his workup findings. He is agreeable to admission at this time. Critical Care Critical Care Time Critical Care Time: No
--- OUTSIDE RECORDS SUMMARY | 2024-12-06 13:27 | XMS_ITS | Clinical Summary ---
Author Organization [facility] Address [address] [facility] [address] [place] [address] Phone Care Team Providers Care Nut Sorter Operator Name Role Phone Isiah Cline MD Unavailable [phone] Conditions or Problems Problem Name Problem Code Onset Date Status Entry Date Provider Comment Standard Description Annotate Edema, BLE 309196412 (SNOMED CT) 07/18 Active 07/18 Swetha Raul Edema of lower extremity Cellulitis of RLE 698427709 (SNOMED CT) 07/18 Active 07/18 Swetha Ralu Cellulitis of lower limb Cellulitis of LLE 457874790 (SNOMED CT) 07/18 Active 07/18 Swetha Raul Cellulitis of lower limb Infection, local skin/subcutan eous tissue 691033677 (SNOMED CT) 07/18 Active 07/18 Swetha Raul Localized infection of skin AND/OR subcutaneous tissue Citrobacter infection B96.89 (ICD-10-CM ) 07/18 Active 07/18 Swetha Raul Other specified bacterial agents as the cause of diseases classified elsewhere Proteus infection 501840529 (SNOMED CT) 07/18 Active 07/18 Swetha Raul Proteus infection DM II with diabetic PVD 748411730 (SNOMED CT) 07/18 Active 07/18 Swetha Raul Peripheral vascular disease 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) 610181866 (SNOMED CT) 07/18 Active 07/18 Swetha Raul Peripheral vascular disease Paroxysmal atrial fib 542890603 (SNOMED CT) 07/18 Active 07/18 Swetha Raul Paroxysmal atrial flutter Obesity, class 3, BMI 40 or greater 92942778 ([facility] CT) 07/18 Active 07/18 Swetha Carter Coronary arteriosclerosis DM II with diabetic polyneuropath y 897300023 ([facility] CT) 07/18 Active 07/18 Swetha Carter Neuropathy Hypertensive heart and CKD, benign, with acute/chronic systolic heart failure and with CKD II (I50.23/N18.2 ) 1690417 (OMED CT) 07/18 Active 07/18 Swetha Carter Benign essential hypertension Medications Medication Instructions Start Date Stop Date Generic Name NDC Provider TRAZODONE HCL 50 MG TABS Take 1 tablet by mouth Every Night. trazodone [id number] QIE qieuser TORSEMIDE 20 MG TABS Take 1 tablet by mouth Daily. torsemide 72955083767 QIE qieuser TIZANIDINE HCL 4 MG TABS Take 1 tablet by mouth Every 6 (Six) Hours As Needed for Muscle Spasms. tizanidine 95749160640 QIE qieuser SPIRONOLACTONE 50 MG TABS Take 1 tablet by mouth 2 (Two) Times a Day. spironolactone 11871737269 QIE qieuser rivaroxaban (XARELTO) 20 MG tablet Take 1 tablet by mouth Daily. XARELTO QIE qieuser PEG 3350 17 GM PACK Take 17 g by mouth Daily As Needed (Use if senna-docusate is ineffective). polyethylene glycol 3350 [id number] QIE qieuser PAROXETINE HCL 40 MG TABS Take 0.5 tablets by mouth Every Morning. paroxetine hcl 32243289576 QIE qieuser PANTOPRAZOLE SODIUM 40 MG TBEC Take 1 tablet by mouth Every Night. pantoprazole 57844917171 QIE qieuser METOPROLOL SUCCINATE ER 50 MG [id number] Take 3 tablets by mouth Daily. metoprolol succinate 68101801691 QIE qieuser METFORMIN HCL 500 MG TABS Take 1 tablet by mouth 2 (Two) Times a Day With Meals. metformin 33161700786 QIE qieuser MELATONIN 5 MG TABS Take 1 tablet by mouth At Night As Needed (insomnia). melatonin 20337593610 QIE qieuser IRBESARTAN 75 MG TABS Take 1 tablet by mouth Daily. TAKE 0.5 TABLET ONCE DAILY. irbesartan 41870403186 QIE qieuser Insulin Pen Needle 30G X 8 MM misc Use 1 Needle 4 (Four) Times a Day for 30 days. Insulin Pen Needle 30G X 8 MM misc QIE qieuser INSULIN LISPRO 100 UNIT/ML SOLN Inject 2-9 Units under the skin into the appropriate area as directed 3 (Three) Times a Day With Meals. insulin lispro 91892435921 QIE qieuser HYDROXYZINE HCL 25 MG TABS Take 1 tablet by mouth 3 (Three) Times a Day As Needed for Anxiety. hydroxyzine hcl 76382714085 QIE qieuser glucose monitor monitoring kit Use 1 each 4 (Four) Times a Day Before Meals & at Bedtime. glucose monitor monitoring kit QIE qieuser glucose blood test strip Use as instructed glucose blood test strip QIE qieuser GLIPIZIDE ER 10 MG [id number]-MAF Take 1 tablet by mouth 2 (Two) Times a Day. glipizide 79913667965 QIE qieuser GABAPENTIN 400 MG CAPS Take 1 capsule by mouth Every 8 (Eight) Hours. gabapentin 62328403674 QIE qieuser empagliflozin (JARDIANCE) 10 MG tablet tablet Take 1 tablet by mouth Daily. JARDIANCE QIE qieuser DOXYCYCLINE MONOHYDRATE 100 MG CAPS Take 1 capsule by mouth Every 12 (Twelve) Hours for 8 doses. Indications: Infection of the Skin and/or Soft Tissue doxycycline monohydrate 97573190339 QIE qieuser DICLOFENAC SODIUM 1 % GEL Apply 2 g topically to the appropriate area as directed 4 (Four) Times a Day. diclofenac sodium 50551891742 QIE qieuser CLOPIDOGREL BISULFATE 75 MG TABS Take 1 tablet by mouth Daily. clopidogrel 48652393226 QIE qieuser CEPHALEXIN 500 MG CAPS Take 1 capsule by mouth Every 6 (Six) Hours for 15 doses. Indications: Infection of the Skin and/or Soft Tissue cephalexin 90319823471 QIE qieuser BENZONATATE 200 MG CAPS Take 1 capsule by mouth 3 (Three) Times a Day As Needed for Cough. benzonatate 79718519116 QIE qieuser ATORVASTATIN CALCIUM 10 MG TABS Take 1 tablet by mouth Every Night. atorvastatin 01888059921 QIE qieuser ASPIRIN LOW DOSE 81 MG TBEC Take 1 tablet by mouth Daily. aspirin 96194299936 QIE qieuser Medications Administered No information available. [...]
--- OUTSIDE RECORDS SUMMARY | 2024-12-06 13:28 | XMS_ITS | Clinical Summary ---
Author Organization Healthcare Address [address] [place] [address] Care Team Providers Care Director [employer] Name Role Phone Unavailable Primary Care Provider Unavailabl e Encounters Date Type Department Care Team Description 10/05/2024 - 10/06/2024 12:50 AM EDT Emergency [facility] [address] [place] [address] Discharge Disposition: ED Dismiss - [...]
--- OUTSIDE RECORDS SUMMARY | 2024-12-06 13:28 | XMS_ITS | Clinical Summary ---
Author Organization [facility] Address [address] [place] [address] Care Team Providers Care Property Insurance Inspector Name Role Phone Saulo Martinez Mukul Primary Care Provider + Allergies Active Allergy Reactions Criticality Noted Date Comments Sulfamethoxazole-Trimethoprim Nausea And Vomiting 03/26/2024 Hydromorphone Nausea And Vomiting 03/26/2024 Morphine Nausea And Vomiting 03/26/2024 Medications clopidogrel (PLAVIX) 75 MG tablet Take 1 tablet by mouth Daily. Active hydrOXYzine (ATARAX) 25 MG tablet Take 1 tablet by mouth 3 (Three) Times a Day As Needed for Anxiety. 5 Active polyethylene glycol (MIRALAX) 17 g packet Take 17 g by mouth Daily As Needed (Use if senna-docusate is ineffective). 5 Active glipizide (GLUCOTROL XL) 10 MG 24 hr tablet Take 1 tablet by mouth 2 (Two) Times a Day. Active tiZANidine (ZANAFLEX) 4 MG tablet Take 1 tablet by mouth Every 6 (Six) Hours As Needed for Muscle Spasms. Active PARoxetine (PAXIL) 40 MG tablet Take 0.5 tablets by mouth Every Morning. 5 Active pantoprazole (PROTONIX) 40 MG EC tablet Take 1 tablet by mouth Every Night. Active atorvastatin (LIPITOR) 10 MG tablet Take 1 tablet by mouth Every Night. Active aspirin 81 MG EC tablet Take 1 tablet by mouth Daily. Active glucose monitor monitoring kit Use 1 each 4 (Four) Times a Day Before Meals & at Bedtime. 1 each 5 Active glucose blood test strip Use as instructed 100 each 5 Active bumetanide (BUMEX) 2 MG tablet Take 1 tablet by mouth 3 (Three) Times a Day. Active Insulin Glargine (LANTUS SOLOSTAR) 100 UNIT/ML injection pen Inject 60 Units under the skin into the appropriate area as directed 2 (Two) Times a Day. Active Insulin Lispro, 1 Unit Dial, (HumaLOG KwikPen) 100 UNIT/ML solution pen-injector Inject under the skin into the appropriate area as directed 3 (Three) Times a Day With Meals. Per sliding scale Active dilTIAZem CD (CARDIZEM CD) 120 MG 24 hr capsule Take 1 capsule by mouth Daily. 30 capsule 08/23/2024 3:58 PM EDT Active gabapentin (NEURONTIN) 400 MG capsuleIndicatio ns:Bilateral cellulitis of lower leg,Sepsis due to cellulitis,Criti jone limb ischemia of both lower extremities Take 1 capsule by mouth Every 8 (Eight) Hours. Active HYDROcodone-acet aminophen (NORCO) 7.5-325 MG per tabletIndication s:Bilateral cellulitis of lower leg Take 1 tablet by mouth Every 6 (Six) Hours As Needed for Moderate Pain. 12 tablet 08/23/2024 3:58 PM EDT Active metoprolol succinate XL (TOPROL-XL) 50 MG 24 hr tablet Take 1 tablet by mouth Daily. Active rivaroxaban (XARELTO) 20 MG tablet Take 1 tablet by mouth Daily. 30 tablet 08/23/2024 3:58 PM EDT 5 Active Active Problems Problem Noted Date Diagnosed Date Cellulitis in diabetic foot 08/18/2024 Acute on chronic heart failu re with preserved ejection fraction (HFpEF) 06/01/2024 Acute on chronic heart failure 05/26/2024 Bilateral cellulitis of lower leg 03/27/2024 Morbid obesity 03/27/2024 HTN (hypertension) 03/27/2024 Type 2 diabetes mellitus wit h diabetic ulcer of lower extremity 03/27/2024 PAF (paroxysmal atrial fibrillation) 03/27/2024 Hyperlipidemia 03/27/2024 Microcytic anemia 03/27/2024 Elevated troponin 03/27/2024 Sepsis 03/27/2024 Sepsis due to cellulitis 03/26/2024 Critical limb ischemia of both lower extremities 03/26/2024 Absence of toe of left foot 05/19/2023 Type 2 diabetes mellitus with peripheral neuropa thy 08/27/2018 Resolved Problems Problem Noted Date Diagnosed Date Resolved Date Atrial fibrillation with RVR 06/29/2024 07/07/2024 Type 2 diabetes mellitus 03/27/2024 Immunizations Immunization Administration Dates Next Due Flu Vaccine Quad PF 6-35MO 04/02/2015 Fluzone >6mos 07/07/2024 Fluzone (or Fluarix & Flulaval for VFC) >6mos ,01/02/2020 Influenza, Unspecified 02/11/2018 PPD Test 07/22/2022,07/12/2022 Pneumococcal Polysaccharide (PPSV23) 07/22/2019 Shingrix 01/02/2020 Tdap 04/02/2015 Family History Medical History Relation Name Comments COPD Father Heart attack Father Heart disease Father Valvular heart disease Father Diabetes Mother Hypertension Mother Relation Name Status Comments Father Mother Social History Tobacco Use Types Packs/Day Years Used Date Smoking Tobacco: Never Passive Smoke Exposure: Never Smokeless Tobacco: Never Alcohol Use Standard Drinks/Week Comments Not Currently 0 (1 standard drink = 0.6 oz pur e alcohol) rare [facility] Utilities Answer Date Recorded In the past 12 months has e [employer], gas, oil, or water [employer] threatened to shut off services in your home? No 08/19/2024 AUDIT-C Answer Date Recorded Q1: How often do you have a drink containing alcohol? Never 08/19/2024 Q2: How many drinks containi ng alcohol do you have on a typical day when you are drinking? Patient does not drink Q3: How often do you have si x or more drinks on one occasion? Never 08/19/2024 Overall Financial Resource Strain (CARDIA) Answe r Date Recorded How hard is it for you to pa y for the very basics like food, housing, medical care, and heating? Not hard at all 08/19/2024 [facility] - Occupational Stress Questionnaire Answer Date Recorded Do you feel stress - tense, restless, nervous, or anxious, or unable to sleep at night because your mind is troubled all the time - these days? Not at all 08/19/2024 Exercise Vital Sign Answer Date Recorde d On average, how many days pe r week do you engage in moderate to strenuous exercise (like a brisk walk)? 0 days 08/19/2024 On average, how many minutes do you engage in exercise at this level? 0 min 08/19/2024 Hunger Vital Sign Answer Date Recorded Within the past 12 months, y ou worried that your food would run out before you got the money to buy more. Never true 08/20/19 25 Within the past 12 months, t he food you bought just didn't last and you didn't have money to get more. Never true 08/19/2024 PRAPARE - Transportation Answer Date Re corded In the past 12 months, has l ack of transportation kept you from medical appointments or from getting medications? No 12/2024 In the past 12 months, has l ack of transportation kept you from meetings, work, or from getting things needed for daily living? No 08/19/2024 Abuse Screen Answer Date Recorded Feels Unsafe at Home or Work/School no 08/19/2024 Feels Threatened by Someone no 12/2024 Does Anyone Try to Keep You From Having Contact with Others or Doing Things Outside Your Home? no 08/19/2024 Physical Signs of Abuse Present no 08/19/2024 Housing Stability Answer Date Recorded Current Living Arrangements home 08/11 Potentially Unsafe Housing Conditions none 08/20/2024 Family and Community Support Answer Te e Recorded If for any reason you need h elp with day-to-day activities such as bathing, preparing meals, shopping, managing finances, etc., do you get the help you need? I get all the help I need 08/19/2024 How often do you feel lonely or isolated from those around you? Never 08/19/2024 Employment Answer Date Recorded Do you want help finding or keeping work or a job? I do not need or want help 08/19/2024 Disabilities Answer Date Recorded Difficulty Concentrating, Remembering or Making Decisions no 08/19/2024 Difficulty Managing Errands Independently no 08/19/2024 Education Answer Date Recorded Do you want help with school or training? For example, starting or completing job training or getting a high school diploma, GED or equivalent No 08/19/2024 Preferred Language Mexican 08/19/2024 PHQ-2 Answer Date Recorded Patient Health Questionnaire-2 Score 0 08/19/2024 Sex and Gender Information Value Date Recorded Sex Assigned at Not on file Legal Sex Male 10:58 PM EST Gender Identity Not on file Sexual Orientation Not on file Last Filed Vital Signs Vital Sign Reading Time Taken Comments Blood Pressure 120/58 08/23/2024 10:10 AM EDT Pulse 111 08/23/2024 10:10 AM EDT Temperature 36.4 C (97.5 F) 08/23/2024 10:10 AM EDT Respiratory Rate 20 08/23/2024 10:10 AM EDT Oxygen Saturation 96% 08/23/2024 10:10 AM EDT Inhaled Oxygen Concentration - - Weight 193 kg (425 lb 7.8 oz) 08/18/2024 12:05 P M EDT Height 190.5 cm (6' 3 ) 08/18/2024 12:05 PM EDT Body Mass Index 53.18 08/18/2024 12:05 PM EDT Plan of Treatment Health Maintenance Due Date Last Done Comments DIABETIC EYE EXAM 06/28/1971 DIABETIC FOOT EXAM 06/28/1971 URINE MICROALBUMIN-CREATININ E RATIO (uACR) 06/28/1971 COLOGUARD 2006 COLON CANCER SCREENING 5 YEA R SIGMOIDOSCOPY 2006 COLONOSCOPY 2006 [address] CANCER SCREENING 2006 CT COLONOGRAPHY 2006 FECAL OCCULT BLOOD TEST 2006 FIT Testing (1 year) 2006 ZOSTER VACCINE (2 of 2) 02/27/2020 01/02/2020 Pneumococcal Vaccine 50+ (2 of 2 - PCV) 07/21/2020 07/22/2019 COVID-19 Vaccine (1 - 2023-2 5 season) 2023 ANNUAL WELLNESS VISIT 06/03/2024 03/03/2022 HEPATITIS C SCREENING 06/03/2024 HEMOGLOBIN A1C 12/31/2024 06/30/2024, 05/14, 03/27/2024, Additional history exists INFLUENZA VACCINE 01/11/2025 07/07/2024, , 01/02/2020, Additional history exists TDAP/TD VACCINES (2 - Td or Tdap) 04/02/2025 015 LIPID PANEL 05/26/2025 05/26/2024, 03/14, 07/14/2022, Additional history exists Procedures Procedure Name Priority Date/Time Associated Diagnosis Comments HEMOGLOBIN A1C Urgent 06/30/2024 3:12 AM EDT LIPID PANEL STAT 05/26/2024 3:15 PM EST from Last 3 Months or Most Recently Relevant to Health Maintenance Results * (ABNORMAL) Hemoglobin A1c (06/30/2024 3:12 AM EDT) Hemoglobin A1C 10.90(H) 4.80 - 5.60 % 06/30/2024 4:36 AM EDT [facility] Blood Venipuncture / Unknown 06/30/2024 3:12 AM EDT 06/30/2024 4:21 AM EDT Narrative [facility] - 06/30/2024 4:36 AM EDT Hemoglobin A1C Ranges: Increased Risk for Diabetes 5.7% to 6.4% Diabetes >= 6.5% Diabetic Goal < 7.0% Horacio Quan MD LAB BLOOD ORDERABLES Final Res ult [facility]
[address] [place] [address], * (ABNORMAL) Lipid Panel (05/26/2024 3:15 PM EST) Total Cholesterol 155 0 - 200 mg/dL 05/26/2024 4:35 PM EST [facility] Triglycerides 165(H) 0 - 150 mg/dL 05/26/2024 4:35 PM EST [facility] HDL Cholesterol 53 40 - 60 mg/dL 05/26/2024 4:35 PM EST [facility] LDL Cholesterol 74 0 - 100 mg/dL 05/26/2024 4:35 PM EST [facility] VLDL Cholesterol 28 5 - 40 mg/dL 05/26/2024 4:35 PM EST [facility] LDL/HDL Ratio 1.30 05/26/2024 4:35 PM EST [facility] Blood Line / Unknown 05/26/2024 3: 15 PM EST 05/26/2024 3:19 PM EST Narrative [facility] - 05/26/2024 4:35 PM EST Cholesterol Reference Ranges (U.S. Department of Health and Human Services ATP III Classifications) Desirable <200 mg/dL Borderline High 200-239 mg/dL High Risk >240 mg/dL Triglyceride Reference Ranges (U.S. Department of Health and Human Services ATP III Classifications) Normal <150 mg/dL Borderline High 150-199 mg/dL High 200-499 mg/dL Very High >500 mg/dL HDL Reference Ranges (U.S. Department of Health and Human Services ATP III Classifications) Low <40 mg/dl (major risk factor for CHD) High >60 mg/dl ('negative' risk factor for CHD) LDL Reference Ranges (U.S. Department of Health and Human Services ATP III Classifications) Optimal <100 mg/dL Near Optimal 100-129 mg/dL Borderline High 130-159 mg/dL High 160-189 mg/dL Very High >189 mg/dL LDL is calculated using the NIH LDL-C calculation. Dea Sahu APRN LAB BLOOD ORDERABLES Fin al Result [facility]
[address] [place] [address], from Last 3 Months or Most Recently Relevant to Health Maintenance Insurance Advance Directives * CPR (Attempt to Resuscitate) (Latest Code Status on File) Date Activated Date Inactivated Comments 08/18/2024 5:47 PM 08/23/2024 5:56 PM Question Answer Comments Code Status (Patient has no pulse and is not breathing): CPR (Attempt to Resuscitate) Medical Interventions (Patie nt has pulse or is breathing): Full Support Level Of Support Discussed With: Patient * CPR (Attempt to Resuscitate) Date Activated Date Inactivated Comments 06/29/2024 3:41 PM 07/07/2024 5:59 PM Question Answer Comments Code Status (Patient has no pulse and is not breathing): CPR (Attempt to Resuscitate) Medical Interventions (Patie nt has pulse or is breathing): Full Support Level Of Support Discussed With: Patient * CPR (Attempt to Resuscitate) Date Activated Date Inactivated Comments 05/26/2024 5:44 PM 06/03/2024 1:46 PM Question Answer Comments Code Status (Patient has no pulse and is not breathing): CPR (Attempt to Resuscitate) Medical Interventions (Patie nt has pulse or is breathing): Full Support Level Of Support Discussed With: Patient * CPR (Attempt to Resuscitate) Date Activated Date Inactivated Comments 03/27/2024 5:42 AM 05/06/2024 6:58 PM Question Answer Comments Code Status (Patient has no pulse and is not breathing): CPR (Attempt to Resuscitate) Medical Interventions (Patie nt has pulse or is breathing): Full Support Care Teams Property Insurance Inspector Relationship Specialty Start Date End Date Saulo Martinez DO [address] [place] [address] PCP - General Internal Medicine 08/23/24
--- OUTSIDE RECORDS SUMMARY | 2024-12-06 13:28 | XMS_ITS | Encounter Summary ---
Author Organization [facility] [place] [address] Care Team Providers Care Concentrator Operator Name Role Phone Lincoln Hillman MD Primary Care Provider [phone] Juan Cantu MD Primary Care Provider [phone] Kym Frias RN Unavailable Unavailable Julee Giang MARKETING PROJECT COORDINATOR Unavailable Unavailable Encounter Details Date Type Department Care Team (Late st Contact Info) Description 01/11/2018 Lab Requisition [facility] [address] [place] [address] Cullen Resendez, [address] [place] [address] [id number] Type 2 diabetes mellitus without complications (HCC) [...] CBC WITH DIFF (01/11/2018 5:31 AM EDT) [facility] WBC 10.9 4.5 - 11.0 x10(3)/mcL 01/11/2018 6:16 AM EDT [facility] RBC 5.34 4.30 - 5.90 x10(6)/mcL 01/11/2018 6:16 AM EDT [facility] Hgb 14.7 13.2 - 17.3 g/dL 01/11/2018 6:16 AM EDT [facility] Hct 45.9 39.0 - 55.0 % 01/11/2018 6:16 AM EDT [facility] MCV 86.0 81.0 - 101.0 fL 01/11/2018 6:16 AM EDT [facility] MCH 27.5 27.0 - 31.0 pg 01/11/2018 6:16 AM EDT [facility] MCHC 32.0(L) 33.0 - 36.0 g/dL 01/11/2018 6:16 AM EDT [facility] Platelet 284 150 - 400 x10(3)/mcL 01/11/2018 6:16 AM EDT [facility] MPV 9.7 7.4 - 10.4 fL 01/11/2018 6:16 AM EDT [facility] Neut Percent 61.8 % 01/11/2018 6:16 AM EDT [facility] Lymph Percent 28.6 % 01/11/2018 6:16 AM EDT [facility] [place] Percent 6.2 % 01/11/2018 6:16 AM EDT [facility] Eos Percent 2.4 % 01/11/2018 6:16 AM EDT [facility] Baso Percent 0.5 % 01/11/2018 6:16 AM EDT [facility] RDW 40.7 35.1 - 43.9 fL 01/11/2018 6:16 AM EDT [facility] NRBC Auto % 0.0 <=1.0 % 01/11/2018 6:16 AM EDT [facility] Imm Gran% 0.5 % 01/11/2018 6:16 AM EDT [facility] IMMGRAN# 0.1(H) <=0.0 x10(3)/[facility] 01/11/2018 6:16 AM EDT [facility] Neut # 6.7 1.8 - 7.7 x10(3)/[facility] 01/11/2018 6:16 AM EDT [facility] Lymph # 3.1 1.0 - 4.8 x10(3)/[facility] 01/11/2018 6:16 AM EDT [facility] [place] # 0.7 0.0 - 0.8 x10(3)/[facility] 01/11/2018 6:16 AM EDT [facility] Eos# 0.3 0.0 - 0.7 x10(3)/[facility] 01/11/2018 6:16 AM EDT [facility] Baso # 0.1 0.0 - 0.2 x10(3)/[facility] 01/11/2018 6:16 AM EDT [facility] Blood VENOUS BLOOD / Unknown 01/11/2018 5:31 AM EDT 01/11/2018 5:56 AM EDT us Cullen Resendez DO HEMATOLOGY ORDERABLES Final Resu lt [facility] [address] [place] [address] [id number] * (ABNORMAL) BASIC METABOLIC PANEL (01/11/2018 5:31 AM EDT) Sodium 138 137 - 145 mmol/L 01/11/2018 6:48 AM EDT [facility] Potassium 4.0 3.5 - 5.1 mmol/L 01/11/2018 6:48 AM EDT [facility] Chloride 100 98 - 107 mmol/L 01/11/2018 6:48 AM EDT [facility] Total CO2 34(H) 22 - 30 mmol/L 01/11/2018 6:48 AM EDT [facility] Anion Gap 4(L) 7 - 16 mmol/L 01/11/2018 6:48 AM EDT [facility] Calcium 8.9 8.4 - 10.3 mg/dL 01/11/2018 6:48 AM EDT [facility] BUN 20 9 - 20 mg/dL 01/11/2018 6:48 AM EDT [facility] Creatinine 0.82 0.66 - 1.25 mg/dL 01/11/2018 6:48 AM EDT [facility] GFR Afr Am 114 >=60 mL/min/1.7 3 m2 01/11/2018 6:48 AM EDT [facility] GFR Non Afr Am 99 >=60 mL/min/1.7 3 m2 01/11/2018 6:48 AM EDT [facility] Comment: This estimated GFR was [...] - 99 mg/dL 01/11/2018 6:48 AM EDT [facility] Blood VENOUS BLOOD / Unknown 01/11/2018 5:31 AM EDT 01/11/2018 5:57 AM EDT Cullen Resendez DO CHEMISTRY ORDERABLES Final Resul t [facility] [address] [facility] [place] [phone] documented in this encounter Visit Diagnoses Diagnosis Type 2 diabetes mellitus without complications (HCC) Type II or unspecified type diabetes mellitus without mention of complication, not stated as uncontrolled documented in this encounter Care Teams Concentrator Operator Relationship Specialty Start Date End Date Lincoln Hillman MD [address] [place] [address] PCP - General Family Medicine 03/25/18 08/26/18 Juan Cantu MD [address] [place], [place] [address] [address] PCP - General Internal Medicine 08/27/18 03/27/24 Kym Frias RNcomputational geneticist Team 07/25/19 08/24/19 Julee Giang LCSW Care Transition Team 01/06/20 0 documented as of this encounter
--- OUTSIDE RECORDS SUMMARY | 2024-12-06 13:28 | XMS_ITS | Encounter Summary ---
Author Organization [facility] [place] [address] Care Team Providers Care High Rigger Name Role Phone Juan Cantu MD Primary Care Provider [phone] Encounter Details Date Type Department Care Team (Late st Contact Info) Description 11/09/2023 Lab Requisition [facility] [address] [place] [address] Aixa Aguilera MD [address] [place] [address] [place] [id number] Hypertension secondary to endocrine disorders; Type [...] from your doctor or pharmacy? Never 10/26/2023 [facility] Utilities Answer Date Recorded In the past [...] often do you attend chur ch or taoist services? Never 10/26/2023 Do you belong to any clubs o r organizations such as bahai groups, unions, fraternal or athletic groups, or [...] Date Recorded PHQ-2 Total Score 2 10/26/2023 [facility] - Occupational Stress Questionnaire Answer Date [...] place to sleep or slept in a mcc (including now)? No 07/16/2022 Housing Stability Vital Sign Answer Te e Recorded In the last 12 months, was t here a time when you were not able to pay the mortgage or rent on time? No 10/22/2023 In the past 12 months, how m any times have you moved where you were living? 1 10/22/2023 At any time in the past 12 m [place], were you homeless or living in a mcc (including now)? No 10/22/2023 Education Answer Date [...] AM EDT) WBC 6.0 4.5 - 11.0 x10(3)/[facility] 11/09/2023 8:21 AM EDT [facility] RBC 4.42 4.30 - 5.90 x10(6)/mcL 11/09/2023 8:21 AM EDT [facility] Hgb 10.7(L) 13.2 - 17.3 g/dL 11/09/2023 8:21 AM EDT [facility] Hct 36.0(L) 39.0 - 55.0 % 11/09/2023 8:21 AM EDT [facility] MCV 81.4 81.0 - 101.0 fL 11/09/2023 8:21 AM EDT [facility] MCH 24.2(L) 27.0 - 31.0 pg 11/09/2023 8:21 AM EDT [facility] MCHC 29.7(L) 33.0 - 36.0 g/dL 11/09/2023 8:21 AM EDT [facility] Platelet 302 150 - 400 x10(3)/[facility] 11/09/2023 8:21 AM EDT [facility] MPV 9.9 7.4 - 10.4 fL 11/09/2023 8:21 AM EDT [facility] Neut Percent 50.9 % 11/09/2023 8:21 AM EDT [facility] Lymph Percent 33.9 % 11/09/2023 8:21 AM EDT [facility] [place] Percent 9.9 % 11/09/2023 8:21 AM EDT [facility] Eos Percent 4.0 % 11/09/2023 8:21 AM EDT [facility] Baso Percent 0.8 % 11/09/2023 8:21 AM EDT [facility] RDW 48.1(H) 35.1 - 43.9 fL 11/09/2023 8:21 AM EDT [facility] NRBC Auto % 0.0 <=1.0 % 11/09/2023 8:21 AM EDT [facility] Imm Gran% 0.5 % 11/09/2023 8:21 AM EDT [facility] IMMGRAN# 0.0 <=0.0 x10(3)/[facility] 11/09/2023 8:21 AM EDT [facility] Neut # 3.0 1.8 - 7.7 x10(3)/[facility] 11/09/2023 8:21 AM EDT [facility] Lymph # 2.0 1.0 - 4.8 x10(3)/[facility] 11/09/2023 8:21 AM EDT [facility] [place] # 0.6 0.0 - 0.8 x10(3)/[facility] 11/09/2023 8:21 AM EDT [facility] Eos# 0.2 0.0 - 0.7 x10(3)/[facility] 11/09/2023 8:21 AM EDT [facility] Baso # 0.1 0.0 - 0.2 x10(3)/[facility] 11/09/2023 8:21 AM EDT [facility] Blood VENOUS BLOOD / Unknown 11/09/2023 7:29 AM EDT 11/09/2023 7:30 AM EDT us Aixa Aguilera MD HEMATOLOGY ORDERABLES Final Re sult [facility] [address] [place] [id number] * (ABNORMAL) BASIC METABOLIC PANEL (11/09/2023 7:29 AM EDT) Sodium 136 135 - 145 mmol/L 11/09/2023 8:22 AM EDT [facility] Potassium 3.9 3.8 - 4.9 mmol/L 11/09/2023 8:22 AM EDT [facility] Chloride 100 98 - 107 mmol/L 11/09/2023 8:22 AM EDT [facility] Total CO2 33(H) 21 - 29 mmol/L 11/09/2023 8:22 AM EDT [facility] Anion Gap 3(L) 7 - 16 mmol/L 11/09/2023 8:22 AM EDT [facility] Calcium 9.1 8.4 - 10.2 mg/dL 11/09/2023 8:22 AM EDT [facility] BUN 17 9 - 20 mg/dL 11/09/2023 8:22 AM EDT [facility] Creatinine 0.70 0.52 - 1.25 mg/dL 11/09/2023 8:22 AM EDT [facility] Glucose Lvl 231(H) 70 - 140 mg/dL 11/09/2023 8:22 AM EDT [facility] eGFR (CKD-EPIcr 2020) 104 >=60 mL/min/1.7 3 m2 11/09/2023 8:22 AM EDT [facility] Comment:Estimated GFR was ca lculated using the CKD-EPIcr (2020) equation refit without race. The equation is recommended by the National Kidney Foundation - [place] [employer] Neph[employer] Task Force. 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
--- OUTSIDE RECORDS SUMMARY | 2024-12-06 13:28 | XMS_ITS | Encounter Summary ---
Author Organization [facility] [place] [address] Care Team Providers Care Melting Operator Name Role Phone Lincoln Hillman MD Primary Care Provider [phone] Juan Cantu MD Primary Care Provider [phone] Kym Frias RN Unavailable Unavailable Julee Giang FEATHER DUSTER WINDER Unavailable Unavailable Encounter Details Date Type Department Care Team (Late st Contact Info) Description 02/11/2018 Lab Requisition [facility] LAB [address] [facility] [place] [id number] Cullen Resendez, [address] [place] [address] Cardiac arrhythmia Social History Tobacco [...] 182 <=200 mg/dL 02/11/2018 8:58 AM EDT [facility] Comment: < 200 Desirable 200 - 239 Borderline High >= 240 High Triglyceride 213(H) <=150 mg/dL 02/11/2018 8:58 AM EDT [facility] HDL 36(L) 40 - 60 mg/dL 02/11/2018 8:58 AM EDT [facility] LDL Calculated 103 mg/dL 02/11/2018 8:58 AM EDT [facility] Comment: Desireable LDL Cholesterol: <130 mg/dL Borderline High Risk LDL Chol: 130-159 mg/dL High Risk LDL Cholesterol: >=160 mg/dL Coronary Risk Factor 19.8 02/11/2018 8:58 AM EDT [facility] Comment: Coronary Risk Factor......Male....Female 1/2 Average...............29.2....30.6 Average...................20.1....22.5 2X Average................10.5....14.2 3X Average................ 4.3.... 9.1 Blood VENOUS BLOOD / Unknown 02/11/2018 7:23 AM EDT 02/11/2018 7:36 AM EDT Cullen Resendez DO CHEMISTRY ORDERABLES Final Resul t Performing Organization Address City/State/[facility] Co de Phone Number [facility] [address] [place] [address] documented in this encounter Visit Diagnoses Diagnosis Cardiac arrhythmia Cardiac dysrhythmia, unspecified documented in this encounter Care Teams Melting Operator Relationship Specialty Start Date End Date Lincoln Hillman MD [address] [place] [address] PCP - General Family Medicine 03/25/18 08/26/18 Juan Cantu MD [address] [place] [address] PCP - General Internal Medicine 08/27/18 03/27/24 Kym Frias RNbulldozer operator Team 07/25/19 08/24/19 Julee Giang LCSW Care Transition Team 01/06/20 0 documented as of this encounter
--- OUTSIDE RECORDS SUMMARY | 2024-12-06 13:28 | XMS_ITS | Encounter Summary ---
Author Organization [facility] [place] [address] Care Team Providers Care Timber Supervisor Name Role Phone Lincoln Hillman MD Primary Care Provider [phone] Juan Cantu MD Primary Care Provider [phone] Kym Frias RN Unavailable Unavailable Julee Giang DOCUMENTATION IMPROVEMENT SPECIALIST Unavailable Unavailable Encounter Details Date Type Department Care Team (Late st Contact Info) Description 02/08/2018 Lab Requisition DAN[facility] LAB [address] [place] [address] Cullen Resendez, [address] [place] [id number] Heart failure (HCC) Social History Tobacco Use [...] - 11.0 x10(3)/mcL 02/08/2018 6:37 AM EDT [facility] RBC 5.06 4.30 - 5.90 x10(6)/mcL 02/08/2018 6:37 AM EDT [facility] Hgb 13.9 13.2 - 17.3 g/dL 02/08/2018 6:37 AM EDT [facility] Hct 43.2 39.0 - 55.0 % 02/08/2018 6:37 AM EDT [facility] MCV 85.4 81.0 - 101.0 fL 02/08/2018 6:37 AM EDT [facility] MCH 27.5 27.0 - 31.0 pg 02/08/2018 6:37 AM EDT [facility] MCHC 32.2(L) 33.0 - 36.0 g/dL 02/08/2018 6:37 AM EDT [facility] Platelet 260 150 - 400 x10(3)/mcL 02/08/2018 6:37 AM EDT [facility] MPV 9.8 7.4 - 10.4 fL 02/08/2018 6:37 AM EDT [facility] Neut Percent 57.4 % 02/08/2018 6:37 AM EDT [facility] Lymph Percent 33.2 % 02/08/2018 6:37 AM EDT [facility] Cross Percent 5.9 % 02/08/2018 6:37 AM EDT [facility] Eos Percent 2.6 % 02/08/2018 6:37 AM EDT [facility] Baso Percent 0.4 % 02/08/2018 6:37 AM EDT [facility] RDW 40.1 35.1 - 43.9 fL 02/08/2018 6:37 AM EDT [facility] NRBC Auto % 0.0 <=1.0 % 02/08/2018 6:37 AM EDT [facility] Imm Gran% 0.5 % 02/08/2018 6:37 AM EDT [facility] IMMGRAN# 0.0 <=0.0 x10(3)/mcL 02/08/2018 6:37 AM EDT [facility] Neut # 4.2 1.8 - 7.7 x10(3)/[facility] 02/08/2018 6:37 AM EDT [facility] Lymph # 2.4 1.0 - 4.8 x10(3)/[facility] 02/08/2018 6:37 AM EDT [facility] Cross # 0.4 0.0 - 0.8 x10(3)/[facility] 02/08/2018 6:37 AM EDT [facility] Eos# 0.2 0.0 - 0.7 x10(3)/[facility] 02/08/2018 6:37 AM EDT [facility] Baso # 0.0 0.0 - 0.2 x10(3)/[facility] 02/08/2018 6:37 AM EDT [facility] Blood VENOUS BLOOD / Unknown Venipuncture / Unknown 02/08/2018 6:07 AM EDT 02/08/2018 6:26 AM EDT us Cullen Resendez DO HEMATOLOGY ORDERABLES Final Resu lt [facility] [address] [place] [address] * (ABNORMAL) BASIC METABOLIC PANEL (02/08/2018 6:07 AM EDT) Sodium 140 137 - 145 mmol/L 02/08/2018 7:09 AM EDT [facility] Potassium 4.2 3.5 - 5.1 mmol/L 02/08/2018 7:09 AM EDT [facility] Chloride 99 98 - 107 mmol/L 02/08/2018 7:09 AM EDT [facility] Total CO2 34(H) 22 - 30 mmol/L 02/08/2018 7:09 AM EDT [facility] Anion Gap 7 7 - 16 mmol/L 02/08/2018 7:09 AM EDT [facility] Calcium 9.5 8.4 - 10.3 mg/dL 02/08/2018 7:09 AM EDT [facility] BUN 13 9 - 20 mg/dL 02/08/2018 7:09 AM EDT [facility] Creatinine 0.54(L) 0.66 - 1.25 mg/dL 02/08/2018 7:09 AM EDT [facility] GFR Afr Am 136 >=60 mL/min/1.7 3 m2 02/08/2018 7:09 AM EDT [facility] GFR Non Afr Am 117 >=60 mL/min/1.7 3 m2 02/08/2018 7:09 AM EDT [facility] Comment: This estimated GFR was calculated [...] - 99 mg/dL 02/08/2018 7:09 AM EDT [facility] Blood VENOUS BLOOD / Unknown 02/08/2018 6:07 AM EDT 02/08/2018 6:27 AM EDT Cullen Resendez DO CHEMISTRY ORDERABLES Final Resul t [facility] [address] [facility] [place] [id number] documented in this encounter Visit Diagnoses Diagnosis Heart failure (HCC) Heart failure, unspecified documented in this encounter Care Teams Timber Supervisor Relationship Specialty Start Date End Date Lincoln Hillman MD [address] [place] [address] PCP - General Family Medicine 03/25/18 08/26/18 Juan Cantu MD [address] [facility] [place] [address] PCP - General Internal Medicine 08/27/18 03/27/24 Kym Frias, gravity prospecting observer helper Team 07/25/19 08/24/19 Julee Giang LCSW Care Transition Team 01/06/20 0 documented as of this encounter
--- OUTSIDE RECORDS SUMMARY | 2024-12-06 13:28 | XMS_ITS | Encounter Summary ---
Author Organization [facility] [place] [address] Care Team Providers Care Email Marketing Executive Name Role Phone Lincoln Hillman MD Primary Care Provider [phone] Juan Cantu MD Primary Care Provider [phone] Kym Frias RN Unavailable Unavailable Julee Giang SIGNAL AND COMMUNICATIONS MAINTAINER Unavailable Unavailable Encounter Details Date Type Department Care Team (Late st Contact Info) Description 01/07/2018 Lab Requisition PLFD LAB [address] [place], [place] [id number] Cullen Resendez, [address] [place] [address] Type 2 diabetes mellitus without [...] AM EDT) WBC 13.1(H) 4.5 - 11.0 x10(3)/[facility] 01/07/2018 8:48 AM EDT [facility] RBC 5.24 4.30 - 5.90 x10(6)/[facility] 01/07/2018 8:48 AM EDT [facility] Hgb 14.8 13.2 - 17.3 g/dL 01/07/2018 8:48 AM EDT [facility] Hct 44.6 39.0 - 55.0 % 01/07/2018 8:48 AM EDT [facility] MCV 85.1 81.0 - 101.0 fL 01/07/2018 8:48 AM EDT [facility] MCH 28.2 27.0 - 31.0 pg 01/07/2018 8:48 AM EDT [facility] MCHC 33.2 33.0 - 36.0 g/dL 01/07/2018 8:48 AM EDT [facility] Platelet 262 150 - 400 x10(3)/[facility] 01/07/2018 8:48 AM EDT [facility] MPV 10.6(H) 7.4 - 10.4 fL 01/07/2018 8:48 AM EDT [facility] Neut Percent 70.3 % 01/07/2018 8:48 AM EDT [facility] Lymph Percent 20.8 % 01/07/2018 8:48 AM EDT [facility] [place] Percent 6.2 % 01/07/2018 8:48 AM EDT [facility] Eos Percent 2.5 % 01/07/2018 8:48 AM EDT [facility] RDW 42.1 35.1 - 43.9 fL 01/07/2018 8:48 AM EDT [facility] Neut # 9.2(H) 1.8 - 7.7 x10(3)/[facility] 01/07/2018 8:48 AM EDT [facility] Lymph # 2.7 1.0 - 4.8 x10(3)/[facility] 01/07/2018 8:48 AM EDT [facility] [place] # 0.8 0.0 - 0.8 x10(3)/mcL 01/07/2018 8:48 AM EDT [facility] Eos# 0.3 0.0 - 0.7 x10(3)/[facility] 01/07/2018 8:48 AM EDT [facility] Baso # 0.0 0.0 - 0.2 x10(3)/[facility] 01/07/2018 8:48 AM EDT [facility] Blood VENOUS BLOOD / Unknown 01/07/2018 6:31 AM EDT 01/07/2018 7:25 AM EDT us Cullen Resendez DO HEMATOLOGY ORDERABLES Final Resu lt [facility] [address] [place], [place] [phone] * (ABNORMAL) BASIC METABOLIC PANEL (01/07/2018 6:31 AM EDT) Sodium 137 137 - 145 mmol/L 01/07/2018 9:42 AM EDT [facility] Potassium 4.1 3.5 - 5.1 mmol/L 01/07/2018 9:42 AM EDT [facility] Chloride 100 98 - 107 mmol/L 01/07/2018 9:42 AM EDT [facility] Total CO2 28 22 - 30 mmol/L 01/07/2018 9:42 AM EDT [facility] Anion Gap 9 7 - 16 mmol/L 01/07/2018 9:42 AM EDT [facility] Calcium 9.1 8.4 - 10.3 mg/dL 01/07/2018 9:42 AM EDT [facility] BUN 18 9 - 20 mg/dL 01/07/2018 9:42 AM EDT [facility] Creatinine 0.70 0.66 - 1.25 mg/dL 01/07/2018 9:42 AM EDT [facility] GFR Afr Am 122 >=60 mL/min/1.7 3 m2 01/07/2018 9:42 AM EDT [facility] GFR Non Afr Am 105 >=60 mL/min/1.7 3 m2 01/07/2018 9:42 AM EDT [facility] Comment: This estimated GFR was [...] - 99 mg/dL 01/07/2018 9:42 AM EDT [facility] Blood VENOUS BLOOD / Unknown 01/07/2018 6:31 AM EDT 01/07/2018 7:25 AM EDT us Cullen Resendez DO CHEMISTRY ORDERABLES Final Resul t [facility] [address] [place] [address] documented in this encounter Visit Diagnoses Diagnosis Type 2 diabetes mellitus without complications (HCC) Type II or unspecified type diabetes mellitus without mention of complication, not stated as uncontrolled documented in this encounter Care Teams Email Marketing Executive Relationship Specialty Start Date End Date Lincoln Hillman MD [address] [facility] [address] [place] [address] [place] [address] PCP - General Family Medicine 03/25/18 08/26/18 Juan Cantu MD [address] [place] [address] [place] [address] PCP - General Internal Medicine 08/27/18 03/27/24 Kym Frias RNhorologist apprentice Team 07/25/19 08/24/19 Julee Giang LCSW Care Transition Team 01/06/20 0 documented as of this encounter
--- OUTSIDE RECORDS SUMMARY | 2024-12-06 13:28 | XMS_ITS | Clinical Summary ---
Author Organization [facility] Address [address] [place] [address] Phone Care Team Providers Care Airport Maintenance Chief Name Role Phone Unavailable Primary Care Provider [...] cellulitis. Patient had been following in the [facility] wound clinic with Dr. Fischer, but has [...] cuff is unreliable. He has some dizziness. Title I Math Tutor to place an art line. Septic shock 10/22/2023 Assessment & Plan (10/27/2023 7:24 PM EDT): Post IV fluids. Antibiotics. Very short-lived Levophed peripherally in the ICU. Septic shock resolved. Assessment & Plan (10/26/2023 1:59 PM EDT): Post IV fluids. Antibiotics. Very short-lived Levophed peripherally in the ICU. Septic shock resolved. Assessment & Plan (10/22/2023 5:50 PM EDT): Sepsis Evaluation: [place] body weight: 84.5 kg (186 lb 4.6 [...] sepsis) RR>= 22 Resp: 16 GCS< 15 [place] Coma Scale Score: 15 SBP< 100 mmHg [...] Overview (05/19/2023): Patient was referred to the [facility] ED. I personally contacted the ED. Shortness [...] artery disease 07/08/2022 Overview (08/18/2022): Status post LONGITUDINAL FLOAT OPERATOR left anterior tibial artery and left popliteal artery. Dulite Machine Bluer Dr. Espinoza. Assessment & Plan (10/30/2023 9:20 [...] revascularization to the left lower extremity with LONGITUDINAL FLOAT OPERATOR to the left popliteal artery and anterior tibial artery mandaen of three-vessel runoff to the left foot [...] was consulted. He had PV angiography with LONGITUDINAL FLOAT OPERATOR to the left popliteal artery and anterior [...] revascularization to the left lower extremity with LONGITUDINAL FLOAT OPERATOR to the left popliteal artery and anterior tibial artery mandaen of three-vessel runoff to the left foot [...] p.o. twice daily for 30 days 3. [place] offloading with dressing change, walker, knee roller [...] was consulted. He had PV angiography with LONGITUDINAL FLOAT OPERATOR tot he left popliteal artery and anterior [...] on Friday 07/28. CBC, CMP every Thursday [place] 5-325 1-2 tab Q6 PRN pain Continue [...] will follow-up outpatient Orthopedic surgery follow-up outpatient [place] for pain management until follow-up with Dr. [...] (07/04/2022): Added automatically from request for surgery [id number] Wound healing, delayed 06/30/2022 Overview (07/07/2022): Added automatically from request for surgery [id number] MDD (major depressive disord er), recurrent episode, [...] fibrillation 07/19/2020 Overview (08/18/2022): Chronic atrial fibrillation [id number] score of 3 Assessment & Plan (10/27/2023 [...] able to void without issue. Echo from [place] in 2018 with LV EF 50-55%, tough [...] (07/02/2022): Added automatically from request for surgery [id number] Venous stasis ulcer of right lower extremity [...] completed on this admission. There is a [facility] notation of Osteomyelitis of the [...] an outpatient. This can be done at [facility] outpatient therapy, or an F. It is [...] his appointment with Dr. Day. 3. [facility] orders: Will need dressing changes QOD [...] his pain, we will put him on CONSUMER EDUCATION SPECIALIST with continuous rate, but he will need [...] was stopped when he went to the detention a few months ago, I suspect due to expense. His sugars have not been well controlled on the sliding scale over there. For the time being we'll put him on sliding scale as well as carbohydrate coverage. Since I expect to return to the detention, I don't think there is any reason [...] eliquis - continue coreg Echo 2018 from [facility]: Assessment & Plan (04/02/2018 6:18 PM EST): Chronic atrial fibrillation on Eliquis anticoagulation. Eliquis had been on hold secondary to his surgery but Dr. Moulton approved it to be restarted today. I will hold his aspirin upon discharge. Currently rate is reasonably controlled. telemetry for monitoring. Continue his carvedilol and digoxin. Immunizations Immunization Administration Dates Next Due Influenza [...] Intra-operative Cultures; Surgeon: Yifan Baron DO; Location: [facility] MAIN OR; Service: Orthopedics IR PICC INSERTION EQUAL OR [...] 1 [phone] - 1979 Smokeless Tobacco: Never Tobacco Cessation:Counseling Given: Not Answered Alcohol Use Standard Drinks/Week Comments Yes 1 (1 standard drink = 0.6 oz pur e alcohol) rarely B1300 Health Literacy Answer Date Recor ded How often do you need to hav e someone help you when you read instructions, pamphlets, or other written material from your doctor or pharmacy? Never 10/26/2023 [facility] Utilities Answer Date Recorded In the past 12 months has th e VR1, gas, oil, or water [employer] threatened to shut off services in your [...] week 10/26/2023 How often do you attend [facility] or christianity services? Never 10/26/2023 Do you belong to any clubs o r organizations such as confucianism groups, unions, fraternal or athletic groups, or [...] Date Recorded PHQ-2 Total Score 2 10/26/2023 [facility] [place] [facility] Occupat [facility] - Occupational Stress [...] place to sleep or slept in a [place] health care facility (including now)? No 07/16/2022 Housing Stability Vital Sign Answer Te e Recorded In the last 12 months, was t here a time when you were not able to pay the mortgage or rent on time? No 10/22/2023 In the past 12 months, how m any times have you moved where you were living? 1 10/22/2023 At any time in the past 12 m [facility], were you homeless or living in a [place] health [place] facility (including now)? No 10/22/2023 Education Answer Date [...] Additional history exists Influenza Vaccine (#1) 2024 2, 01/02/2020, 02/11/2018 DTaP/TDaP/Td (2 - Td or Tdap) 04/02/2025 04/02/2015 Lipids 05/26/2025 05/26/2024, 03/14, 07/14/2022, Additional history exists Hepatitis C Screening Completed 08/22/2022 Hepatitis B Vaccine Aged Out No longe r eligible based on patient's age to complete this topic Meningococcal B Vaccine Aged Out No l onger eligible based on patient's age to complete this topic Medical Devices Implanted Type Area [employer] Device Identifier Shelf Expiration Date Model / Serial / Lot Floseal Hemostatic Matrix 10ml - [id number] Implanted:Qty: 6 on 03/29/2018 by Clark Moulton MD at [facility] N/A: Spine Thoracic [employer]T 07/28/2019 [id number] / / [id number] Screw Multi Axial 5.5 X 30 Ti - [id number] Implanted:Qty: 4 on 03/29/2018 by Clark Moulton MD at [facility]/A: Spine Thoracic [employer] [id number] / / Screw Multi Axial 5.5 X 35 Ti - [id number] Implanted:Qty: 4 on 03/29/2018 by Clark Moulton MD at [facility] N/A: Spine Thoracic [employer] [id number] / / Screw Multi Axial 5.5 X 40 Ti - [id number] Implanted:Qty: 8 on 03/29/2018 by Clark Moulton MD at [facility]: Spine Thoracic [employer] [id number] / / Matrix Dural Regeneration 1x3 - [id number] Implanted:Qty: 1 on 03/29/2018 by Clark Moulton MD at [facility] N/A: Spine Thoracic [employer] 10/10/2020 [id number] / / [id number] [place] Matrix 5cm - [id number] Implanted:Qty: 1 on 03/29/2018 by Clark Moulton MD at [facility] 07/05/2020 [id number] / / Procedures Procedure Name Priority Date/Time [...] BASIC METABOLIC PANEL (11/09/2023 7:29 AM EDT) [facility] Sodium 136 135 - 145 mmol/L 11/09/2023 8:22 AM EDT [facility] Potassium 3.9 3.8 - 4.9 mmol/L 11/09/2023 8:22 AM EDT [facility] Chloride 100 98 - 107 mmol/L 11/09/2023 8:22 AM EDT [facility] Total CO2 33(H) 21 - 29 mmol/L 11/09/2023 8:22 AM EDT [facility] Anion Gap 3(L) 7 - 16 mmol/L 11/09/2023 8:22 AM EDT [facility] Calcium 9.1 8.4 - 10.2 mg/dL 11/09/2023 8:22 AM EDT [facility] BUN 17 9 - 20 mg/dL 11/09/2023 8:22 AM EDT [facility] Creatinine 0.70 0.52 - 1.25 mg/dL 11/09/2023 8:22 AM EDT [facility] Glucose Lvl 231(H) 70 - 140 mg/dL 11/09/2023 8:22 AM EDT [facility] eGFR (CKD-EPIcr 2020) 104 >=60 mL/min/1.7 3 m2 11/09/2023 8:22 AM EDT [facility] Comment:Estimated GFR was ca lculated using the CKD-EPIcr (2020) equation refit without race. The equation is recommended by the National Kidney Foundation - [place] [employer] of Nephrology Task Force. Blood VENOUS BLOOD / Unknown 11/09/2023 7:29 AM EDT 11/09/2023 7:30 AM EDT Aixa Aguilera MD CHEMISTRY ORDERABLES Final Res ult Performing Organization Address [facility] Co de Phone Number [facility] [address] [facility] [place] [address] * (ABNORMAL) HEMOGLOBIN A1C (10/23/2023 4:03 AM EDT) Hgb A1C 9.2(H) <=5.6 % 10/23/2023 12:41 PM EDT [facility] Comment:Indicative of diabet es Est. Avg Glucose 217 mg/dL 10/23/2023 12:41 PM EDT [facility] Blood VENOUS BLOOD / Unknown Venipuncture / Unknown 10/23/2023 4:03 AM EDT 10/23/2023 4:08 AM EDT Rafael Lisa MD CHEMISTRY ORDERABLES Final Res ult Performing Organization Address [facility] Co de Phone Number [facility] [address] [place] [address] * MICROALBUMIN/CREATININE RATIO URINE (08/22/2022) Pathologist [facility] Sodium 138 137 - 147 MMOL/L [facility] [...] OFFICE Platelet 268 150 - 399 X10(3)/MCL [facility] Microalb, Ur 0.6 <=31 MG/L [facility] Creatinine, Urine 113 MG/DL [facility] Hep C Ab neg S/CORATIO [facility] Calcium 9.10 8.70 - 10.70 MG/DL [facility] Urine URINE SPECIMEN COLLECTION / Unknown 08/22/2022 Juan Cantu MD URINE ORDERABLES Final Re sult Performing Organization Address [facility]/ZIP Co de Phone Number [facility] * (ABNORMAL) LIPID SCREEN (07/14/2022 5:15 AM EDT) Cholesterol 163 <=200 mg/dL 07/14/2022 5:54 AM EDT [facility] Comment: < 200 Desirable 200 - 239 Borderline High >= 240 High Triglyceride 155(H) <=150 mg/dL 07/14/2022 5:54 AM EDT [facility] HDL 36(L) >=50 mg/dL 07/14/2022 5:54 AM EDT [facility] LDL Calculated 96 mg/dL 07/14/2022 5:54 AM EDT [facility] Comment: Desireable LDL Cholesterol: <130 mg/dL Borderline High Risk LDL Chol: 130-159 mg/dL High Risk LDL Cholesterol: >=160 mg/dL Blood VENOUS BLOOD / Unknown Venipuncture / Unknown 07/14/2022 5:15 AM EDT 07/14/2022 5:26 AM EDT Olga Lovelace NP CHEMISTRY ORDERABLES Final Res ult Performing Organization Address City/[facility]/ZIP Co de Phone Number [facility] [address] [place] [address] from Last 3 Months or Most Recently Relevant to Health Maintenance Insurance [facility] MEDICARE ADVANTAGE PPO [id number] Advance Directives For more information, please contact: [phone] * Full Code (Latest Code Status on [...]
--- OUTSIDE RECORDS SUMMARY | 2024-12-06 13:28 | XMS_ITS | Encounter Summary ---
Author Organization [facility] [place] [address] Care Team Providers Care Manager Mba Name Role Phone Lincoln Hillman MD Primary Care Provider [phone] Juan Cantu MD Primary Care Provider [phone] Kym Frias RN Unavailable Unavailable Julee Giang ASSOCIATE PROFESSOR OF LAW Unavailable Unavailable Encounter Details Date Type Department Care Team (Late st Contact Info) Description 12/28/2017 Lab Requisition [facility] [address] [place] [address] Cullen Resendez, [address] [place] [id number] Atrial fibrillation (HCC) Social History Tobacco [...] EDT [facility] [place] Percent 6.3 % 12/28/2017 7:46 AM EDT [...] LABORATORY Neut # 5.4 1.8 - 7.7 x10(3)/[facility] 12/28/2017 7:46 AM EDT [facility] Lymph # 3.0 1.0 - 4.8 x10(3)/[facility] 12/28/2017 7:46 AM EDT [facility] Sevier # 0.6 0.0 - 0.8 x10(3)/[facility] 12/28/2017 7:46 AM EDT [facility] Eos# 0.3 0.0 - 0.7 x10(3)/[facility] 12/28/2017 7:46 AM EDT [facility] Baso # 0.0 0.0 - 0.2 x10(3)/[facility] 12/28/2017 7:46 AM EDT [facility] Blood VENOUS BLOOD / Unknown 12/28/2017 6:05 AM EDT 12/28/2017 7:05 AM EDT Cullen Resendez DO HEMATOLOGY ORDERABLES Final Resu lt [facility] [address] [place] [address] [id number] * (ABNORMAL) BASIC METABOLIC PANEL (12/28/2017 6:05 [...] [facility] [address] [facility] [place] [id number] documented in this encounter Visit Diagnoses Diagnosis Atrial fibrillation (HCC) Atrial fibrillation documented in this encounter Care Teams Manager Mba Relationship Specialty Start Date End Date Lincoln Hillman MD [address] [facility] [address] [place] [address] PCP - General Family Medicine 03/25/18 08/26/18 Juan Cantu MD [address] [place] [address] [place] [address] PCP - General Internal Medicine 08/27/18 03/27/24 Frias, Kym A, brim flexer Team 07/25/19 08/24/19 Julee Giang LCSW Care Transition Team 01/06/20 0 documented as of this encounter
--- NOTE | 2024-12-06 13:56 | CT_ITS ---
FINAL REPORT TECHNIQUE: Thin section axial images were obtained through the right lower extremity without contrast. Reconstruction images were obtained from the axial data. Exam was performed using dose reduction technique. 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 No acute fracture or dislocation is identified. There is multijoint degenerative disease. Calcifications adjacent to the medial and lateral malleoli could represent age-indeterminate avulsion fractures, likely chronic. Evaluations of the soft tissues are limited. No soft tissue windows were submitted. There is soft tissue edema, worse along the midfoot, forefoot, and dorsal foot. There is a soft tissue defect along the plantar lateral forefoot at the level of the head of the fifth metatarsal. There is a small amount of air within the tract extending toward the head of the fifth metatarsal. On series 1002, image 13 is a punctate radiodensity just proximal to the soft tissue defect which could be a foreign body in or on the soft tissues. There is no evidence of bone destruction or loculated fluid collection. Within the subcutaneous fat posterior to the calcaneal process is a linear foreign body measuring approximately 12 mm. IMPRESSION: No CT evidence of osteomyelitis. Diffuse soft tissue edema consistent with cellulitis. No loculated fluid collection. Ulceration along the lateral forefoot with foreign body in or on the soft tissues just proximal to the ulceration. Foreign body posterior to the calcaneus. Reviewed, Interpreted and Dictated by Samara Buenrostro MD Transcribed by Selma Gerard Authenticated and [facility]
[2024-12-06 14:26] LABS: Coronavirus 19, PCR Not Detected (NotDetected); Influenza A, PCR Not Detected (NotDetected); Influenza B, PCR Not Detected (NotDetected)
[2024-12-06 14:26] LABS: Magnesium 2.0 mg/dl (1.6-2.3)
--- NOTE | 2024-12-06 14:32 | HMH.ITSTN ---
BROUGHT PATIENT TO CT FOR SCAN, PATIENT REFUSED SCAN
[2024-12-06 14:36] LABS: Hematocrit 33.2 % (42.0-52.0); Hemoglobin 10.1 g/dL (14.1-18.0); Immature Granulocytes % 0.6 %; Mean Corpuscular HGB Conc 30.4 g/dL (31.8-35.4); Mean Corpuscular Hemoglobin 21.0 pg (27.0-31.2); Mean Corpuscular Volume 69.0 fl (80-94); Nucleated Red Blood Cells % 0 %; Platelet Count 444 K/mm3 (142-424); Red Blood Count 4.81 M/mm3 (4.60-6.20); Red Cell Distribution Width-SD 47.5 fL; White Blood Count 19.4 K/mm3 (4.8-10.8)
[2024-12-06] MEDS: PIPERCILLIN/TAZO 3.375 GM in 0.9 % SODIUM CHLORIDE 50 ML IV ×2 (15:04→20:48)
[2024-12-06] MEDS: VANCOMYCIN HCL 2,500 MG in 0.9 % SODIUM CHLORIDE 500 ML 250 MG IV (15:05)
[2024-12-06 15:13] LABS: Albumin Level 3.4 g/dl (3.5-5.0); Chloride 84 mmol/L (98-107); Sodium 128 mmol/L (136-145)
[2024-12-06 15:16] LABS: Alanine Aminotransferase 12 U/L (12-78); Albumin/Globulin Ratio 1.2 (1.1-1.8); Alkaline Phosphatase 232 U/L (38-126); Anion Gap 16.7 mEq/L (5-15); Aspartate Amino Transferase 20 U/L (17-59); Bilirubin,Total 0.7 mg/dl (0.2-1.3); Blood Urea Nitrogen 49 mg/dl (9-20); Calcium 8.3 mg/dl (8.4-10.2); Carbon Dioxide 30 mmol/L (22.0-30.0); Creatinine Clearance Estimated 32 mL/min (50-200); Creatinine,Serum 2.80 mg/dl (0.66-1.25); Estimated Glomerular Filt Rate 23 ml/min (>60); GFR (African American) 28 ML/MIN (>60); Globulin 2.9 g/dL (1.3-3.2); Glucose 285 mg/dl (74-100); Total Protein,Serum 6.3 g/dl (6.3-8.2)
[2024-12-06 15:27] LABS: Potassium 2.7 mmoL/L (3.5-5.1)
[2024-12-06] MEDS: POTASSIUM CHLORIDE 20MEQ TAB 40 MEQ PO (15:58)
[2024-12-06] MEDS: SODIUM CHLORIDE 0.9% 500ML BAG 500 ML IV (15:58)
--- NOTE | 2024-12-06 17:41 | PC.NURSE ---
Patient report called to KARTHIK Mccartney.
[2024-12-06 18:12] LABS: Reflex Lactic Add Lactic Reflex
--- NOTE | 2024-12-06 19:00 | P.HP_ITS ---
<Statement entered by Jorge A Martin MD - 12/07/24 15:43> Personally evaluated patient and agree with the plan of care as outlined by the [facility] WELDER. History of Present Illness *Admission Date: 12/06/24 *Reason for visit:: Wound to right foot *History of present illness: This is a 64-year-old male who is well-known to our service line and has a past medical history significant for diabetic foot ulcer, chronic kidney disease, atrial fibrillation, iron deficiency anemia, morbid obesity, systolic dysfunction congestive heart failure, diabetic neuropathy, peripheral vascular disease, obstructive sleep apnea, hypertension, and diabetes who presents with a chief complaint of a laceration to his right lower extremity. Due to patient's symptoms, he presented to the emergency room for evaluation. While in the emergency room, patient had a significant elevation in his white blood cell count, hide heart heart rate, low potassium, and chronic wounds to his lower extremities. Patient was meeting sepsis criteria, so he was admitted for further management. During my evaluation of the patient, patient states he noted the laceration on his lower extremity last night. He reports that someone was changing his wounds and noticed that he had worsening of his chronic cellulitis. He is currently denying any chest pain, lightheadedness, dizziness, fever, chills, rigors, nausea, vomiting, diarrhea. CT scan of the lower extremity shows diffuse soft tissue edema consistent with cellulitis, no loculated fluid collection, and no foreign body. Additional pertinent values obtained include a white blood cell count of 19.4, hemoglobin 10.1, hematocrit 33.2, platelet count of 444, neutrophils 89.8%, sodium 128, potassium of 2.7, chloride of 84, venous lactic acid of 2.6, creatinine 2.8, BUN of 49, GFR of 23, calcium of 8.3, and alkaline phosphate of 232. [facility] Disclaimer: The information contained in this section may have been updated after the p yamilex was seen, as this information can be updated by other users. Medical History Morbid obesity with BMI of 50.0-59.9, adult Atrial fibrillation Peripheral arterial disease Hypertension Diabetes mellitus Cellulitis of left lower extremity Venous stasis ulcer of both lower extremities without varicose veins Volume overload Cellulitis Acute on chronic heart failure with preserved ejection fraction (HFpEF) LORI (obstructive sleep apnea) Surgical History History of amputation of right fourth toe History of amputation of left fifth toe Family History Other No significant family history Social History Smoking Status: Former smoker alcohol intake: never current occupational status: retired and disabled Travel in the last 8 weeks?: None Have you lived/traveled outside US in past 30 days?: No Contact w/someone who lives/traveled outside US past 30 days?: No Exposure to someone with infectious disease in past 14 days?: No Do you have a fever (greater than 100.4 F or 38 C)?: No Have you tested positive for COVID-19?: No Exposed to someone with COVID-19 in past 14 days?: No Do you have a sore throat?: No Do you have a cough?: No Do you have any weakness?: No Do you have any diarrhea?: No Are you experiencing any unusual bleeding?: No Do you have any muscle aches/pain?: No Do you have any abdominal pain?: No Are you experiencing loss of taste or smell?: No Other Medical History Have you received the Flu Vaccine for this season: No Have you received the Pneumonia Vaccine: No Review of Systems Review of Systems Review of systems:: pertinent systems reviewed and negative unless documented below Constitutional Constitutional: Reports system reviewed and no additional complaints, except as documented Eyes Eyes: Reports system reviewed and no additional complaints, except as documented ENT Ears, Nose, Mouth, and Throat: Reports system reviewed and no additional complaints, except as documented *Cardiovascular Cardiovascular: Reports leg edema *Respiratory Respiratory: Reports system reviewed and no additional complaints, except as documented *Genitourinary Genitourinary: Reports system reviewed and no additional complaints, except as documented *Musculoskeletal Musculoskeletal: Reports system reviewed and no additional complaints, except as documented Integumentary/Breasts Skin/Breast: Reports erythema, Reports non-healing lesions and Reports skin ulcer *Neurologic Neurologic: Reports system reviewed and no additional complaints, except as documented Psychiatric Psychiatric: Reports system reviewed and no additional complaints, except as documented Endocrine Endocrine: Reports system reviewed and no additional complaints, except as documented Hematologic/Lymphatic Hematologic/Lymphatic: Reports system reviewed and no additional complaints, except as documented Allergic/Immunologic Allergic/Immunologic: Reports system reviewed and no additional complaints, except as documented Meds Home Medications and Allergies Home Medications ?Medication ?Instructions ?Recorded ?Confirmed ?Type insulin lispro 100 unit/mL See Protocol SQ ACHS 30 day s #1.2 08/01/24 12/06/24 Rx subcutaneous solution (Humalog mL U-100 Insulin) insulin glargine 100 unit/mL (3 60 unit SQ BID 5 12/06/24 History mL) subcutaneous pen (Lantus Solostar U-100 Insulin) ondansetron 4 mg disintegrating 4 mg PO Q6H PRN nausea and 10/11/24 12/06/24 Rx tablet vomiting #30 tabs ondansetron HCl 4 mg tablet 4 mg PO Q6H PRN nausea and 10/27/24 12/06/24 Rx vomiting #14 tabs metoprolol succinate 25 mg 25 mg PO DAILY 30 days #30 tabs 11/18/24 12/06/24 Rx tablet,extended release 24 hr potassium chloride 20 mEq See Rx Instructions .Route 0 11/18/24 12/06/24 Rx tablet,extended release(part/cryst) .COMPLEX #60 tabs pregabalin 100 mg capsule 100 mg PO TID 30 days #90 ca ps 11/22/24 12/06/24 Rx tirzepatide 2.5 mg/0.5 mL 2.5 mg (0.5 mL) SQ WEEKLY 30 days 11/22/24 12/06/24 Rx subcutaneous pen injector #2.5 mL (Romario) tizanidine 4 mg capsule 4 mg PO HSP PRN muscle spast icity 11/22/24 12/06/24 Rx #30 caps tramadol 50 mg tablet 75 mg (1.5 x 50 mg) PO Q6H P RN 11/22/24 12/06/24 Rx pain #180 tabs escitalopram oxalate 20 mg tablet 20 mg PO DAILY #90 t abs 11/23/24 12/06/24 Rx (Lexapro) apixaban 5 mg tablet (Eliquis) 5 mg PO BID 12/06/24 History bumetanide 2 mg tablet 3 mg PO TID 12/06/24 5 History metolazone 2.5 mg tablet 5 mg PO DAILY 12/06/2412/06 History New Prescriptions to Start Prescriptions: Allergies Allergy/AdvReac Type Severity Reaction Status Date / Time sitagliptin (From Januvia) AdvReac Severe Verified 11/22/24 08:34 hydromorphone (From Dilaudid) AdvReac Vomiting Verified 11/22/24 08:34 morphine AdvReac Vomiting Verified 11/22/24 08:34 Exam Data for Last 24 hours Vital signs and Labs for Last 24 Hours: Temp Pulse Resp BP Pulse Ox O2 Del Method 98.7 F 90 19 118/74 99 Room Air 12/06/24 18:07 12/06/24 18:07 12/06/24 18:07 12/06/24 18:07 12/06/24 17:46 12/06/24 18:54 Laboratory Results - last 24 hr 12/06/24 14:04: WBC 19.4 H, RBC 4.81, Hgb 10.1 L, Hct 33.2 L, MCV 69.0 L, MCH 2 1.0 L, MCHC 30.4 L, RDW 19.9 H, Plt Count 444 H, MPV 9.1, Neut % (Auto) 89.8 H, Lymph % (Auto) 6.0 L, Collier % (Auto) 2.5, Eos % (Auto) 0.8, Baso % (Auto) 0.3, Neut # (Auto) 17.4 H, Lymph # (Auto) 1.2, Collier # (Auto) 0.5, Eos # (Auto) 0.2, Baso # (Auto) 0.1, Sodium 128 L, Potassium 2.7 L*, Chloride 84 L, Carbon Dioxide 30, Anion Gap 16.7 H, BUN 49 H, Creatinine 2.80 H, Estimated Creat Clear 32, Estimated GFR 23 L, Est GFR ( Amer) 28 L, Glucose 285 H, Lactate 2.6 H, Calcium 8.3 L, Magnesium 2.0, Total Bilirubin 0.7, AST 20, ALT 12, Alkaline Phosphatase 232 H, Total Protein 6.3, Albumin 3.4 L, Globulin 2.9, Albumin/Globulin Ratio 1.2 12/06/24 14:23: SARS-CoV-2 (PCR) Not detected, Influenza A Untype (PCR) Not detected, Influenza Type B (PCR) Not detected I & O for Last 24 hours: Intake & Output 12/03/24 12/04/24 12/05/24 12/06/24 23:59 23:59 23:59 23:59 Intake Total 650 / 650 Balance 650 / 650 Weight 170.097 kg Microbiology Reports for the Last 24 Hours: Microbiology 12/06/24 14:20 Foot,Right Gram Stain - Final Constitutional Constitutional: no acute distress, obese and chronically ill appearing *Routine HEENT Exam Head: Present normocephalic and atraumatic Eye: Present EOMI ENT: Present mucous membranes moist *Routine Neck Exam Neck: Present supple, full ROM and trachea midline *Routine Respiratory Exam Respiratory: Present CTA bilaterally and distant breath sounds *Routine Cardiovascular Exam Cardiovascular: Present RRR, Normal S1 and Normal S2 *Routine Abdominal Exam Abdominal: Present soft, normoactive bowel sounds and obese *Routine Rectal Exam Rectal:: deferred *Routine Genitalia Exam Genitalia:: deferred *Routine Extremities Exam Extremities: Present edema and full ROM Routine Back/Spine/Pelvis Exam Back/Spine: Present full ROM *Routine Skin Exam Skin: Present dry, warm, wounds and gangrene *Routine Neurological Exam Neurological: Present alert, oriented X3 and moving all extremities Routine Psychiatric Exam Psychiatric: Present normal affect, normal thought process, cooperative, good insight and good judgment H&P: Result Impressions This is a 64-year-old male who has a known diabetic wound ulcers who presents with a possible laceration to right lower extremity. Review of photographs taken of the right lower extremity shows a ulceration to the lateral aspect of patient's right foot that is consistent with dry gangrene Assessment and Plan *Assessment and plan (1) Diabetic foot ulcer: Status: Acute Qualifiers: Diabetes mellitus type: other specified (including ASHKAN) Diabetic foot ulcer location: unspecified part of foot Laterality: unspecified laterality Non-pressure ulcer stage: unspecified non-pressure ulcer stage Qualified Code(s): E13.621 - Other specified diabetes mellitus with foot ulcer; L97.509 - Non-pressure chronic ulcer of other part of unspecified foot with unspecified severity Category: Medical Code(s): E11.621 - Type 2 diabetes mellitus with foot ulcer; L97.509 - Non-pressure chronic ulcer of other part of unspecified foot with unspecified severity (2) Sepsis: Status: Acute Qualifiers: Acute renal failure type: unspecified Sepsis acute organ dysfunction status: with acute organ dysfunction Sepsis type: sepsis due to unspecified organism Severe sepsis acute organ dysfunction type: acute renal failure Severe sepsis shock status: without septic shock Qualified Code(s): A41.9 - Sepsis, unspecified organism; R65.20 - Severe sepsis without septic shock; N17.9 - Acute kidney failure, unspecified Category: Medical Code(s): A41.9 - Sepsis, unspecified organism (3) Acute hypokalemia: Status: Acute Category: Medical Code(s): E87.6 - Hypokalemia (4) Acute kidney injury superimposed on chronic kidney disease: Status: Acute Category: Medical Code(s): N17.9 - Acute kidney failure, unspecified; N18.9 - Chronic kidney disease, unspecified (5) Cellulitis of leg, right: Status: Acute Category: Medical Code(s): L03.115 - Cellulitis of right lower limb (6) Morbid obesity with BMI of 45.0-49.9, adult: Status: Acute Category: Medical Code(s): E66.01 - Morbid (severe) obesity due to excess calories; Z68.42 - Body mass index [BMI] 45.0-49.9, adult (7) Lactic acidosis: Status: Acute Category: Medical Code(s): E87.20 - Acidosis, unspecified (8) Leukocytosis: Status: Acute Qualifiers: Leukocytosis type: unspecified Qualified Code(s): D72.829 - Elevated white blood cell count, unspecified Category: Medical Code(s): D72.829 - Elevated white blood cell count, unspecified (9) Hyponatremia: Status: Acute Category: Medical Code(s): E87.1 - Hypo-osmolality and hyponatremia Plan Assessment: Sepsis Diabetic foot ulcer Bilateral lower extremity cellulitis Leukocytosis with left shift Lactic acidosis Possible dry gangrene - Will continue Zosyn 3.375 g IV every 6 hours - Will continue vancomycin IV pharmacy to dose - Patient is currently meeting sepsis criteria but due to HFpEF and stable blood pressure I will not give 30 mL of IV hydration per kilogram of body weight for fear this may cause more harm - Sepsis reperfusion screening performed - Repeat venous lactic acid Acute on chronic renal impairment: Most likely prerenal; baseline creatinine is 1.8 -Due to multifactorial reasons to include diuretics and sepsis -Will give gentle IV hydration -If there is no improvement of patient's creatinine, will obtain urine workup -Will consider ultrasound of the kidneys -Will avoid nephrotoxic drugs Hyponatremia - Will give gentle IV hydration of 50 mL normal saline IV - Obtain urine sodium Hypokalemia - Patient was given oral and IV potassium while in the emergency room - Will recheck patient's potassium and trend daily Lymphedema - Patient's lower extremities are consistent with lymphedema stage IV Hyperglycemia -Sliding scale insulin AC and at bedtime with mild scale coverage Plan: Admit patient to the MedSurg unit Will consult podiatry Bilateral lower extremity venous arterial Doppler Activity as tolerated Wound care therapy Physical therapy Occupational Therapy Case management Cardiac/1800 ADA diet CBC/BMP daily Once med rec is updated will continue patient's apixaban 4 mg Zofran IV push. Hours. Nausea vomit Pharmacy to dose vancomycin Blood cultures x 2 Wound culture Full code I have discussed this case with attending physician Dr. Martin and I look forward to more input
[2024-12-06 19:09] LABS: Lactic Acid Follow Up (RFLX 1) 1.4 mmol/L (0.7-2.1)
--- NOTE | 2024-12-06 19:13 | PC.NURSE ---
DIABETIC ULCER TO OUTER RIGHT FOOT OUTER RIGHT FOOT TOP OF RIGHT LEG LEFT LEG DIABETIC FOOT ULCER TO BOTTOM OF LEFT FOOT DIABETIC FOOT ULCER TO BOTTOM OF LEFT HEEL SIDE OF LEFT LEG
--- NOTE | 2024-12-06 20:22 | EXP.SEPSISRE ---
[facility] Tissue Perfusion Eval Sepsis Re-Evaluation Performed: Yes Date Performed: 12/06/24 Time Performed: 20:22
[2024-12-06 20:30] LABS: POC Glucose,Bedside 321 gm/dL (70-110)
[2024-12-06] MEDS: 0.9 % SODIUM CHLORIDE 1000ML 1,000 ML 50 ML IV (20:47)
[2024-12-06] MEDS: PREGABALIN 100MG CAPSULE 100 MG PO (20:48)
[2024-12-06] MEDS: APIXABAN 5MG TABLET 5 MG PO (20:49)
[2024-12-06] MEDS: TRAMADOL 50MG TABLET 75 MG PO (20:49)
[2024-12-06] MEDS: INSULIN GLARGINE 100 UNITS/ML 3ML FLEXPEN 60 UNIT SUBCUT (20:49)
[2024-12-06] MEDS: humaLOG 100 UNITS/ML 10ML VIAL (SSI) SUBCUT (20:50)
[2024-12-06 23:58] LABS: Sodium,Urine Random 47.0 mmol/L (30-90)
[2024-12-07] VITALS (9 sets, daily range): BP systolic 98–120; BP diastolic 57–63; PULSE 58–120; RESP 16–18; TEMP 36.3–37; O2SAT 92–98; BMI 48.4
--- NOTE | 2024-12-07 00:34 | PC.WOUNDNOTE ---
open areas to pt right and left side of buttock open area to pt scrotum and small tunneled area to pt malina area open areas to pt inner thigh/ groin
--- NOTE | 2024-12-07 00:39 | PC.NURSE ---
this nurse assessed pt malina area and groin pt has multiple open wounds of different shapes and sizes including one small area that seems to be tunneling. this nurse did clean areas with normal saline and covered some areas with a non-adherent. some areas are slightly bleeding and pt admits that his buttocks and groin are painful. wound consult entered at this time
[2024-12-07] MEDS: PIPERCILLIN/TAZO 3.375 GM in 0.9 % SODIUM CHLORIDE 50 ML IV ×4 (02:21→20:06)
--- NOTE | 2024-12-07 05:38 | PC.NURSE ---
Pt is A&Ox4. Pt has multiple wounds in his malina area, groin and bilateral lower extremities (see previous wound notes) Wounds to groin bleed when pt is up and transferring, pt bilateral lower extremities are seeping fluid and edema remains 3+ pitting. Pt rested intermittently this shift and has tolerated IV antibiotics well and was treated for pain. Pt IV fluids continue @ 50 ml/hr.
[2024-12-07] MEDS: humaLOG 100 UNITS/ML 10ML VIAL (SSI) SUBCUT ×3 (05:54→20:07)
[2024-12-07 05:58] LABS: POC Glucose,Bedside 238 gm/dL (70-110)
--- NOTE | 2024-12-07 06:00 | CA_ITS ---
FINAL REPORT TECHNIQUE: Arterial duplex Doppler evaluation of the lower extremities with spectral analysis. CLINICAL HISTORY: Cellulitis, Morbid obesity, DM-foot ulcer, unhealing wound, lymph edema FINDINGS: Right lower extremity, flow velocities (cm per second): Common femoral artery: 318 Profunda: 135 Proximal SFA: 180 Mid SFA: 120 Distal SFA: 90 Anterior tibial artery: 55 Posterior tibial artery: Proximal peroneal: 112 Left lower extremity, flow velocities (cm per second): Common femoral artery: 186 Profunda: 90 Proximal SFA: 160 Mid SFA: 85 Distal SFA: Anterior tibial artery: 50 Posterior tibial artery: 58 Proximal peroneal: 131 IMPRESSION: Very limited exam. Of the visualized arteries, waveforms are predominantly biphasic with no gross occlusion. Consider CTA if further evaluation needed. Reviewed, Interpreted and Dictated by Samara Buenrostro MD Transcribed by Amanda Landa Authenticated and [facility]
[2024-12-07 06:49] LABS: Hematocrit 30.1 % (42.0-52.0); Immature Granulocytes % 0.7 %; Mean Corpuscular HGB Conc 28.9 g/dL (31.8-35.4); Mean Corpuscular Hemoglobin 20.0 pg (27.0-31.2); Mean Corpuscular Volume 69.2 fl (80-94); Nucleated Red Blood Cells % 0 %; Platelet Count 359 K/mm3 (142-424); Red Blood Count 4.35 M/mm3 (4.60-6.20); Red Cell Distribution Width-SD 48.7 fL; White Blood Count 13.7 K/mm3 (4.8-10.8)
[2024-12-07 06:52] LABS: Chloride 91 mmol/L (98-107); Sodium 135 mmol/L (136-145)
[2024-12-07 06:55] LABS: Anion Gap 13.7 mEq/L (5-15); Blood Urea Nitrogen 48 mg/dl (9-20); Calcium 8.3 mg/dl (8.4-10.2); Carbon Dioxide 33 mmol/L (22.0-30.0); Creatinine Clearance Estimated 41 mL/min (50-200); Creatinine,Serum 2.20 mg/dl (0.66-1.25); Estimated Glomerular Filt Rate 30 ml/min (>60); GFR (African American) 37 ML/MIN (>60); Glucose 221 mg/dl (74-100)
[2024-12-07 07:01] LABS: Hemoglobin 8.9 g/dL (14.1-18.0)
[2024-12-07 07:03] LABS: Potassium 2.7 mmoL/L (3.5-5.1)
--- NOTE | 2024-12-07 07:07 | P.CONS_ITS ---
History of Present Illness *Admission Date: 12/06/24 *History of present illness: This is a 64-year-old male who is well-known to our service line and has a past medical history significant for diabetic foot ulcer, chronic kidney disease, atrial fibrillation, iron deficiency anemia, morbid obesity, systolic dysfunction congestive heart failure, diabetic neuropathy, peripheral vascular disease, obstructive sleep apnea, hypertension, and diabetes who presents with a chief complaint of a laceration to his right lower extremity. Due to patient's symptoms, he presented to the emergency room for evaluation. While in the emergency room, patient had a significant elevation in his white blood cell count, hide heart heart rate, low potassium, and chronic wounds to his lower extremities. Patient was meeting sepsis criteria, so he was admitted for further management. During my evaluation of the patient, patient states he noted the laceration on his lower extremity last night. He reports that someone was changing his wounds and noticed that he had worsening of his chronic cellulitis. He is currently denying any chest pain, lightheadedness, dizziness, fever, chills, rigors, nausea, vomiting, diarrhea. CT scan of the lower extremity shows diffuse soft tissue edema consistent with cellulitis, no loculated fluid collection, and no foreign body. Additional pertinent values obtained include a white blood cell count of 19.4, hemoglobin 10.1, hematocrit 33.2, platelet count of 444, neutrophils 89.8%, sodium 128, potassium of 2.7, chloride of 84, venous lactic acid of 2.6, creatinine 2.8, BUN of 49, GFR of 23, calcium of 8.3, and alkaline phosphate of 232. 12/07/24: Podiatry consulted today for Dry gangrene to medial aspect of right foot. Podiatry last saw this patient while inpatient on 09/13/2024 for B/L LE Cellulitis. [facility] Disclaimer: The information contained in this section may have been updated after the patient was seen, as this information can be updated by other users. Medical History Morbid obesity with BMI of 50.0-59.9, adult Atrial fibrillation Peripheral arterial disease Hypertension Diabetes mellitus Cellulitis of left lower extremity Venous stasis ulcer of both lower extremities without varicose veins Volume overload Cellulitis Acute on chronic heart failure with preserved ejection fraction (HFpEF) LORI (obstructive sleep apnea) Surgical History History of amputation of right fourth toe History of amputation of left fifth toe Family History Other No significant family history Social History Smoking Status: Former smoker alcohol intake: never current occupational status: retired and disabled Travel in the last 8 weeks?: None Have you lived/traveled outside US in past 30 days?: No Contact w/someone who lives/traveled outside US past 30 days?: No Exposure to someone with infectious disease in past 14 days?: No Do you have a fever (greater than 100.4 F or 38 C)?: No Have you tested positive for COVID-19?: No Exposed to someone with COVID-19 in past 14 days?: No Do you have a sore throat?: No Do you have a cough?: No Do you have any weakness?: No Do you have any diarrhea?: No Are you experiencing any unusual bleeding?: No Do you have any muscle aches/pain?: No Do you have any abdominal pain?: No Are you experiencing loss of taste or smell?: No Review of Systems *Neurologic Neurologic: Reports system reviewed and no additional complaints, except as documented Meds Home Medications and Allergies Home Medications ?Medication ?Instructions ?Recorded ?Confirmed ?Type insulin lispro 100 unit/mL See Protocol SQ ACHS 30 day s #1.2 08/01/24 12/06/24 Rx subcutaneous solution (Humalog mL U-100 Insulin) insulin glargine 100 unit/mL (3 60 unit SQ BID 5 12/06/24 History mL) subcutaneous pen (Lantus Solostar U-100 Insulin) metoprolol succinate 25 mg 25 mg PO DAILY 30 days #30 tabs 11/18/24 12/06/24 Rx tablet,extended release 24 hr pregabalin 100 mg capsule 100 mg PO TID 30 days #90 ca ps 11/22/24 12/06/24 Rx tirzepatide 2.5 mg/0.5 mL 2.5 mg (0.5 mL) SQ WEEKLY 30 days 11/22/24 12/06/24 Rx subcutaneous pen injector #2.5 mL (Mounjaro) tizanidine 4 mg capsule 4 mg PO HSP PRN muscle spast icity 11/22/24 12/06/24 Rx #30 caps tramadol 50 mg tablet 75 mg (1.5 x 50 mg) PO Q6H P RN 11/22/24 12/06/24 Rx pain #180 tabs escitalopram oxalate 20 mg tablet 20 mg PO DAILY #90 t abs 11/23/24 12/06/24 Rx (Lexapro) apixaban 5 mg tablet (Eliquis) 5 mg PO BID 12/06/24 History bumetanide 2 mg tablet 3 mg PO TID 12/06/24 5 History metolazone 2.5 mg tablet 5 mg PO DAILY 12/06/2412/06 History potassium chloride 20 mEq 40 meq PO DAILY 12/07/24 History tablet,extended release(part/cryst) New Prescriptions to Start Prescriptions: Allergies Allergy/AdvReac Type Severity Reaction Status Date / Time sitagliptin (From Januvia) AdvReac Severe Verified 11/22/24 08:34 hydromorphone (From Dilaudid) AdvReac Vomiting Verified 11/22/24 08:34 morphine AdvReac Vomiting Verified 11/22/24 08:34 Exam (Inpt) Vital signs and Labs for Last 24 Hours: Temp Pulse Resp BP Pulse Ox O2 Del Method 97.9 F 114 H 16 104/60 L 98 Room Air 12/07/24 04:00 12/07/24 04:00 12/07/24 04:00 12/07/24 04:00 12/07/24 04:00 12/07/24 05:00 Laboratory Results - last 24 hr 12/06/24 14:04: WBC 19.4 H, RBC 4.81, Hgb 10.1 L, Hct 33.2 L, MCV 69.0 L, MCH 21.0 L, MCHC 30.4 L, RDW 19.9 H, Plt Count 444 H, MPV 9.1, Neut % (Auto) 89.8 H, Lymph % (Auto) 6.0 L, [place] % (Auto) 2.5, Eos % (Auto) 0.8, Baso % (Auto) 0.3, N eut # (Auto) 17.4 H, Lymph # (Auto) 1.2, [place] # (Auto) 0.5, Eos # (Auto) 0.2, Baso # (Auto) 0.1, Sodium 128 L, Potassium 2.7 L*, Chloride 84 L, Carbon Dioxide 30, Anion Gap 16.7 H, BUN 49 H, Creatinine 2.80 H, Estimated Creat Clear 32, E stimated GFR 23 L, Est GFR ( Amer) 28 L, Glucose 285 H, Lactate 2.6 H, C alcium 8.3 L, Magnesium 2.0, Total Bilirubin 0.7, AST 20, ALT 12, Alkaline Phosphatase 232 H, Total Protein 6.3, Albumin 3.4 L, Globulin 2.9, Albumin/Globulin Ratio 1.2 12/06/24 14:23: SARS-CoV-2 (PCR) Not detected, Influenza A Untype (PCR) Not detected, Influenza Type B (PCR) Not detected 12/06/24 18:52: Lactate 1.4 12/06/24 20:21: POC Glucose 321 H* 12/06/24 23:45: Urine Sodium 47.0 12/07/24 05:50: POC Glucose 238 H 12/07/24 06:28: WBC 13.7 H D, RBC 4.35 L, Hgb 8.9 L D, Hct 30.1 L, MCV 69.2 L, M CH 20.0 L, MCHC 28.9 L, RDW 20.0 H, Plt Count 359, MPV 9.0, Neut % (Auto) 86.6 H , Lymph % (Auto) 7.5 L, [place] % (Auto) 3.7, Eos % (Auto) 1.2, Baso % (Auto) 0.3, Neut # (Auto) 11.9 H, Lymph # (Auto) 1.0, [place] # (Auto) 0.5, Eos # (Auto) 0.2, Baso # (Auto) 0.0, Sodium 135 L, Potassium 2.7 L*, Chloride 91 L, Carbon Dioxide 33 H, Anion Gap 13.7, BUN 48 H, Creatinine 2.20 H D, Estimated Creat Clear 41, E stimated GFR 30 L, Est GFR ( Amer) 37 L D, Glucose 221 H D, Calcium 8.3 L I & O for Labs for Last 24 Hours: Intake & Output 12/04/24 12/05/24 12/06/24 12/07/24 23:59 23:59 23:59 23:59 Intake Total 700 / 700 410 / 410 Output Total 0 / 0 500 / 500 Balance 700 / 700 -90 / -90 Weight 375 lb 389 lb 4.8 oz Microbiology Reports for the Last 24 Hours: Microbiology 12/06/24 14:20 Foot,Right Gram Stain - Final Constitutional: Present no acute distress and cooperative Head: Present normocephalic Eye: Present as per HPI Neck: Present normal inspection Respiratory: Present normal respiratory effort and able to speak in complete sentences Cardiac: Present pedal pulses present Comment:: Difficult to palpate secondary to lymphedema, swelling. No pedal hair growth. GI: Present soft Rectal (male): Present deferred (male): Present deferred Extremities: Present edema Comment:: 2+ b/l lower extremity edema Skin: Present erythema and wounds Comment:: B/L LE edema, erythema with weeping drainage from both legs. Multiple areas of loose peeling sloughing skin to both anterior ankles. Right hallux distal tip ulcer 0.2x0.2x0.1cm, right sub 5th (plantar side) DFU 3.1x 2.5x 1.1cm, had foul odor, soft wound edges, eschar tissue centrally, (wound culture obtained), right lateral foot ulcer, 2.0x2.0x 0.0 cm, Small sore to Left 3rd distal tip toe, 100% granular 0.2x0.2x0.0cm, Left Lateral foot ulcer, 100% granular 3.2x 2.0x 0.1cm,Left lateral heel 0.3x0.3x0.1cm, this had some macerated borders, but once debrided was 100% granular, Sharp excisional full-thickness debridement with 15 blade through skin into subcu for all wounds. Neuro: Present oriented x 3; Absent Sensory Function Intact Comment:: Some decreased/absent sensation to plantar feet secondary to DM neuropathy. Ankle: bilateral: erythema (cellulitis), bilateral: swelling (2+ pitting edema), bilateral: tenderness (L>R LE) and bilateral: wound (b/l foot DFU's ) Feet/Toes: bilateral: amputation (R 4th toe, L 5th toe amp), bilateral: erythema (b/l feet and lower legs ), bilateral: hammer toe, bilateral: nail abnormalities (thick and discolored, right hallux nail has dark blood under nail from trauma/ bumping it. ), bilateral: onychomycosis, bilateral: tenderness (b/l feet and lower leg cellultis ) and bilateral: wound (B/L foot DFU's see above ..) Feet Bottom: 2 1. Right sub 5th (plantar side) DFU had foul odor, soft wound edges, peeling skin noted, eschar tissue centrally, (wound culture obtained). Sharp excisional full-thickness debridement with 15 blade through skin into subcu, post debridement measurements: 3.1x 2.5x 1.1cm. Inspection: Present foot deformity deformity: Present hammer toes, nail disorder, skin break, infection and ulceration Pulses: L dorsalis pedis pulse: diminished, R dorsalis pedis pulse: diminished, L posterior tibial pulse: diminished and R posterior tibial pulse: diminished CFT: dim: CFT Results Labs 12/07/24 06:28 12/07/24 06:28 Labs: Abnormal lab results 12/06/24 12/06/24 12/07/24 Range/Units 14:04 20:21 05:50 WBC 19.4 H (4.8-10.8) K/mm3 RBC (4.60-6.20) M/mm3 Hgb 10.1 L (14.1-18.0) g/dL Hct 33.2 L (42.0-52.0) % MCV 69.0 L (80-94) fl MCH 21.0 L (27.0-31.2) pg MCHC 30.4 L (31.8-35.4) g/dL RDW 19.9 H (11.5-17.5) % Plt Count 444 H (142-424) K/mm3 Neut % (Auto) 89.8 H (37.0-80.0) % Lymph % (Auto) 6.0 L (10-50) % Neut # (Auto) 17.4 H (1.8-7.8) K/mm3 Sodium 128 L (136-145) mmol/L Potassium 2.7 L* (3.5-5.1) mmoL/L Chloride 84 L (98-107) mmol/L Carbon Dioxide (22.0-30.0) mmol/L Anion Gap 16.7 H (5-15) mEq/L BUN 49 H (9-20) mg/dl Creatinine 2.80 H (0.66-1.25) mg/dl Estimated GFR 23 L (>60) ml/min Est GFR ( Amer) 28 L (>60) ML/MIN Glucose 285 H (74-100) mg/dl POC Glucose 321 H* 238 H (70-110) gm/dL Lactate 2.6 H (0.7-2.1) mmol/L Calcium 8.3 L (8.4-10.2) mg/dl Alkaline Phosphatase 232 H (38-126) U/L Albumin 3.4 L (3.5-5.0) g/dl 12/07/24 Range/Units 06:28 WBC 13.7 H D (4.8-10.8) K/mm3 RBC 4.35 L (4.60-6.20) M/mm3 Hgb 8.9 L D (14.1-18.0) g/dL Hct 30.1 L (42.0-52.0) % MCV 69.2 L (80-94) fl MCH 20.0 L (27.0-31.2) pg MCHC 28.9 L (31.8-35.4) g/dL RDW 20.0 H (11.5-17.5) % Plt Count (142-424) K/mm3 Neut % (Auto) 86.6 H (37.0-80.0) % Lymph % (Auto) 7.5 L (10-50) % Neut # (Auto) 11.9 H (1.8-7.8) K/mm3 Sodium 135 L (136-145) mmol/L Potassium 2.7 L* (3.5-5.1) mmoL/L Chloride 91 L (98-107) mmol/L Carbon Dioxide 33 H (22.0-30.0) mmol/L Anion Gap (5-15) mEq/L BUN 48 H (9-20) mg/dl Creatinine 2.20 H D (0.66-1.25) mg/dl Estimated GFR 30 L (>60) ml/min Est GFR ( Amer) 37 L D (>60) ML/MIN Glucose 221 H D (74-100) mg/dl POC Glucose (70-110) gm/dL Lactate (0.7-2.1) mmol/L Calcium 8.3 L (8.4-10.2) mg/dl Alkaline Phosphatase (38-126) U/L Albumin (3.5-5.0) g/dl H & H 12/06/24 12/07/24 Range/Units 14:04 06:28 Hgb 10.1 L 8.9 L D (14.1-18.0) g/dL Hct 33.2 L 30.1 L (42.0-52.0) % All other labs normal. Assessment and Plan *Assessment and plan (1) Diabetic neuropathy: Status: Acute Qualifiers: Diabetes mellitus complication detail: diabetic polyneuropathy Diabetes mellitus type: type 2 Qualified Code(s): E11.42 - Type 2 diabetes mellitus with diabetic polyneuropathy Category: Medical Code(s): E11.40 - Type 2 diabetes mellitus with diabetic neuropathy, unspecified (2) Peripheral vascular disease: Status: Acute Category: Medical Code(s): I73.9 - Peripheral vascular disease, unspecified (3) Foreign body of right heel: Status: Acute Category: Medical Code(s): S90.851A - Superficial foreign body, right foot, initial encounter (4) Cellulitis: Status: Acute Qualifiers: Laterality: unspecified laterality Site of cellulitis: extremity Site of cellulitis of extremity: lower extremity Qualified Code(s): L03.119 - Cellulitis of unspecified part of limb Category: Medical Code(s): L03.90 - Cellulitis, unspecified (5) History of amputation of right fourth toe: Status: Acute Category: Surgical Code(s): Z89.421 - Acquired absence of other right toe(s) (6) History of amputation of left fifth toe: Status: Acute Category: Surgical Code(s): Z89.422 - Acquired absence of other left toe(s) (7) Peripheral arterial disease: Status: Acute Category: Medical Code(s): I73.9 - Peripheral vascular disease, unspecified (8) Venous stasis ulcer of both lower extremities without varicose veins: Status: Acute Category: Medical Code(s): I87.2 - Venous insufficiency (chronic) (peripheral); L97.919 - Non-pressure chronic ulcer of unspecified part of right lower leg with unspecified severity; L97.929 - Non-pressure chronic ulcer of unspecified part of left lower leg with unspecified severity (9) Diabetic ulcer of right foot: Status: Acute Qualifiers: Diabetes mellitus type: type 2 Diabetic foot ulcer location: other N on-pressure ulcer stage: with fat layer exposed Qualified Code(s): E11.621 - Type 2 diabetes mellitus with foot ulcer; L97.512 - Non-pressure chronic ulcer of other part of right foot with fat layer exposed Category: Medical Code(s): E11.621 - Type 2 diabetes mellitus with foot ulcer; L97.519 - Non-pressure chronic ulcer of other part of right foot with unspecified severity (10) Diabetic ulcer of left foot: Problem Comment: Left lateral foot DFU Status: Acute Qualifiers: Diabetes mellitus type: type 2 Diabetic foot ulcer location: other N on-pressure ulcer stage: with fat layer exposed Qualified Code(s): E11.621 - Type 2 diabetes mellitus with foot ulcer; L97.522 - Non-pressure chronic ulcer of other part of left foot with fat layer exposed Category: Medical Code(s): E11.621 - Type 2 diabetes mellitus with foot ulcer; L97.529 - Non-pressure chronic ulcer of other part of left foot with unspecified severity (11) Morbid obesity with BMI of 45.0-49.9, adult: Status: Acute Category: Medical Code(s): E66.01 - Morbid (severe) obesity due to excess calories; Z68.42 - Body mass index [BMI] 45.0-49.9, adult Plan 12/07/24: -Patient made NPO until after Podiatry consult -Will determine if patient will need any surgical debridement/procedures after assessment. -Reviewed CT scan 12/06/24: Evidence of osteomyelitis. Diffuse soft tissue edema consistent with cellulitis. No loculated fluid collection. -Labs Reviewed: 12/07/24, WBC trending down from 19.4 to today 12/07/24 at 13.7. -Will order ESR and CRP for today to check infection markers. -We saw patient, Dr. Romero was able to do debridement at the bedside -Patient will not need any surgical debridement done today. -Patient may resume a diabetic diet -B/L foot DFU's was cleaned and debrided see above for the details -Wound culture was obtained from Right sub 5th wound. -Patient will need to have wound vac placed on right sub 5th wound, the patient agrees to work with wound care on doing dressing changes. -We will alternate dressing changes with [facility] Wound care once discharged for home. [facility] WC will treat legs for Lymphedema. -Ideally Patient would benefit most from SNF and wound vac placement if patient is in agreeable. -Continue to get IV Zosyn 3.375 g IV every 6 hours and vancomycin IV pharmacy to dose per Hospitalist orders. -Feet were dressed today with Betadine soaked gauze, dry gauze, kerlix and shanae wrap. -Podiatry will round again tomorrow and debrided DFU's again and will decide if he will need wound vac placed while inpatient, Podiatry will work on getting him approved for a vac for home use. -All orders per Dr. Romero.
--- NOTE | 2024-12-07 07:26 | EXP.PHA.CONS ---
Pharmacy Consult Date: 12/07/24 Time: 07:26 Referring provider: DR. BEE Reason for Consult:: VANCOMYCIN DOSING Allergies Allergy/AdvReac Type Severity Reaction Status Date / Time sitagliptin (From Januvia) AdvReac Severe Verified 11/22/24 08:34 hydromorphone (From Dilaudid) AdvReac Vomiting Verified 11/22/24 08:34 morphine AdvReac Vomiting Verified 11/22/24 08:34 Home Medications ?Medication ?Instructions ?Recorded ?Confirmed ?Type insulin lispro 100 unit/mL See Protocol SQ ACHS 30 days #1.2 08/01/24 12/06/24 Rx subcutaneous solution (Humalog mL U-100 Insulin) insulin glargine 100 unit/mL (3 60 unit SQ BID 10/11/24 12/06/24 History mL) subcutaneous pen (Lantus Solostar U-100 Insulin) ondansetron 4 mg disintegrating 4 mg PO Q6H PRN nausea and 10/11/24 12/06/24 Rx tablet vomiting #30 tabs ondansetron HCl 4 mg tablet 4 mg PO Q6H PRN nausea and 10/27/24 12/06/24 Rx vomiting #14 tabs metoprolol succinate 25 mg 25 mg PO DAILY 30 days #30 tabs 11/18/24 12/06/24 Rx tablet,extended release 24 hr potassium chloride 20 mEq See Rx Instructions .Route 11/18/24 12/06/24 Rx tablet,extended release(part/cryst) .COMPLEX #60 tabs pregabalin 100 mg capsule 100 mg PO TID 30 days #90 caps 11/22/24 12/06/24 Rx tirzepatide 2.5 mg/0.5 mL 2.5 mg (0.5 mL) SQ WEEKLY 30 days 11/22/24 12/06/24 Rx subcutaneous pen injector #2.5 mL (Mounjaro) tizanidine 4 mg capsule 4 mg PO HSP PRN muscle spasticity 11/22/24 12/06/24 Rx #30 caps tramadol 50 mg tablet 75 mg (1.5 x 50 mg) PO Q6H PRN 11/22/24 12/06/24 Rx pain #180 tabs escitalopram oxalate 20 mg tablet 20 mg PO DAILY #90 tabs 11/23/24 12/06/24 Rx (Lexapro) apixaban 5 mg tablet (Eliquis) 5 mg PO BID 12/06/24 12/06/24 History bumetanide 2 mg tablet 3 mg PO TID 12/06/24 12/06/24 History metolazone 2.5 mg tablet 5 mg PO DAILY 12/06/24 12/06/24 History New Prescriptions to Start Prescriptions: Height: 1.91 m Weight: 176.584 kg Laboratory Results:: Laboratory Results - last 24 hr 12/06/24 14:04: WBC 19.4 H, RBC 4.81, Hgb 10.1 L, Hct 33.2 L, MCV 69.0 L, MCH 21.0 L, MCHC 30.4 L, RDW 19.9 H, Plt Count 444 H, MPV 9.1, Neut % (Auto) 89.8 H, Lymph % (Auto) 6.0 L, [place] % (Auto) 2.5, Eos % (Auto) 0.8, Baso % (Auto) 0.3, Neut # (Auto) 17.4 H, Lymph # (Auto) 1.2, [place] # (Auto) 0.5, Eos # (Auto) 0.2, Baso # (Auto) 0.1, Sodium 128 L, Potassium 2.7 L*, Chloride 84 L, Carbon Dioxide 30, Anion Gap 16.7 H, BUN 49 H, Creatinine 2.80 H, Estimated Creat Clear 32, Estimated GFR 23 L, Est GFR ( Amer) 28 L, Glucose 285 H, Lactate 2.6 H, Calcium 8.3 L, Magnesium 2.0, Total Bilirubin 0.7, AST 20, ALT 12, Alkaline Phosphatase 232 H, Total Protein 6.3, Albumin 3.4 L, Globulin 2.9, Albumin/Globulin Ratio 1.2 12/06/24 14:23: SARS-CoV-2 (PCR) Not detected, Influenza A Untype (PCR) Not detected, Influenza Type B (PCR) Not detected 12/06/24 18:52: Lactate 1.4 12/06/24 20:21: POC Glucose 321 H* 12/06/24 23:45: Urine Sodium 47.0 12/07/24 05:50: POC Glucose 238 H 12/07/24 06:28: WBC 13.7 H D, RBC 4.35 L, Hgb 8.9 L D, Hct 30.1 L, MCV 69.2 L, MCH 20.0 L, MCHC 28.9 L, RDW 20.0 H, Plt Count 359, MPV 9.0, Neut % (Auto) 86.6 H, Lymph % (Auto) 7.5 L, [place] % (Auto) 3.7, Eos % (Auto) 1.2, Baso % (Auto) 0.3, Neut # (Auto) 11.9 H, Lymph # (Auto) 1.0, [place] # (Auto) 0.5, Eos # (Auto) 0.2, Baso # (Auto) 0.0, Sodium 135 L, Potassium 2.7 L*, Chloride 91 L, Carbon Dioxide 33 H, Anion Gap 13.7, BUN 48 H, Creatinine 2.20 H D, Estimated Creat Clear 41, Estimated GFR 30 L, Est GFR ( Amer) 37 L D, Glucose 221 H D, Calcium 8.3 L Medical History: Medical History (Updated 12/06/24 @ 19:12 by Kenny Chen APRN) Morbid obesity with BMI of 50.0-59.9, adult Atrial fibrillation Peripheral arterial disease Hypertension Diabetes mellitus Cellulitis of left lower extremity Venous stasis ulcer of both lower extremities without varicose veins Volume overload Cellulitis Acute on chronic heart failure with preserved ejection fraction (HFpEF) LORI (obstructive sleep apnea) Assessment and Plan Assessment and plan all Dx Assessment and Plan for all problems:: Pharmacokinetic dosing service Objective: Patient: Floor: Age: 64 yo Serum creatinine: 2.20 mg/dL Height: 75.2 Inches Weight (kg): 176.6 Assessment: IBW (kg): 84.96 Dosing wt(kg): 176.6 Estimated Creatinine clearance (ml/min): 41.3 CRCL method: Cockcroft and Gault using ibw(default). Drug selected: Vancomycin Loading dose (mg): Vd (liters): 141.3 (factor used: 0.8 L/kg) Stephan (hr-1): 0.039 Half life (hrs): 17.77 CLvanco=?? 5.511 L/hr Recommended dose: 2250 mg Interval: 18 hrs Infusion time (hrs): 2.0 Predicted peak (mcg/mL): 30.4 Predicted trough (mcg/mL): 16.29 Total body weight is being used for vancomycin dosing. Recommendations: Give Vancomycin 2250 mg q 18 hrs with an expected Cpeak of 30.4 mcg/ml and an expected Ctrough of 16.29 mcg/ml AUC 0-24 /LENARD Data: LENARD 0.5 mcg/mL:?? AUC/LENARD:? 1088.7 LENARD 1.0 mcg/mL:?? AUC/LENARD:? 544.4 --------- LENARD 1.5 mcg/mL:?? AUC/LENARD:? 362.9 LENARD 2.0 mcg/mL:?? AUC/LENARD:? 272.2 Thank you for the consult, will continue to follow. -LISA CALDERON, JEANCARLOSD
[2024-12-07] MEDS: PREGABALIN 100MG CAPSULE 100 MG PO ×3 (08:27→20:07)
[2024-12-07] MEDS: METOPROLOL SUCCINATE XL 25MG TABLET 25 MG PO (08:27)
[2024-12-07] MEDS: APIXABAN 5MG TABLET 5 MG PO ×2 (08:27→20:07)
[2024-12-07] MEDS: TRAMADOL 50MG TABLET 75 MG PO (08:28)
--- NOTE | 2024-12-07 08:35 | HMH.PHAINT1 ---
Pharmacy Intervention Comments: MEDICATION RECONCILIATION COMPLETED ON PATIENT USING EXTERNAL FILL HISTORY FROM PHARMACY AND DISCHARGE SUMMARY FROM PREVIOUS ADMISSION. -LISA CALDERON, JEANCARLOSD
[2024-12-07] MEDS: VANCOMYCIN HCL 2,250 MG in 0.9 % SODIUM CHLORIDE 250 ML 125 MG IV (09:27)
--- NOTE | 2024-12-07 09:50 | HMH.PTEV ---
Physical Therapy Evaluation Rehab PT IP Evaluation Start: 12/06/24 18:47 Freq: ONCE Status: Active Protocol: Document 12/07/24 09:43 ROSA (Rec: 12/07/24 09:50 ROSA [id number]) Subjective/History History History Per H&P: This is a 64-year-old male who is well-known to our service line and has a past medical history significant for diabetic foot ulcer, chronic kidney disease, atrial fibrillation, iron deficiency anemia, morbid obesity, systolic dysfunction congestive heart failure, diabetic neuropathy, peripheral vascular disease, obstructive sleep apnea, hypertension , and diabetes who presents with a chief complaint of a laceration to his right lower extremity. Due to patient's symptoms, he presented to the emergency room for evaluation. While in the emergency room, patient had a significant elevation in his white blood cell count, hide heart heart rate, low potassium, and chronic wounds to his lower extremities. Patient was meeting sepsis criteria, so he was admitted for further management. During my evaluation of the patient, patient states he noted the laceration on his lower extremity last night. He reports that someone was changing his wounds and noticed that he had worsening of his chronic cellulitis . He is currently denying any chest pain, lightheadedness, dizziness, fever, chills, rigors, nausea, vomiting, diarrhea. CT scan of the lower extremity shows diffuse soft tissue edema consistent with cellulitis, no loculated fluid collection, and no foreign body. Additional pertinent values obtained include a white blood cell count of 19.4, hemoglobin 10 .1, hematocrit 33.2, platelet count of 444, neutrophils 89.8%, sodium 128, potassium of 2.7, chloride of 84, venous lactic acid of 2.6, creatinine 2.8, BUN of 49, GFR of 23, calcium of 8.3, and alkaline phosphate of 232. Subjective Subjective Pt reports he is still living with his sister in a single-story home. Pt reports he remains IND with household level mobility using a RW. Pt denies any recent difficulty with household level mobility. Pt uses a w/c as needed. Pt's sister able to assist with tasks as needed. New diagnosis of No cancer in past 12 months? [facility] How much help from another person do you currently need... Turning from your None back to your side while in a flat bed without using bedrails? Moving from lying on None back to sitting on the side of a flat bed without using bedrails? Moving to and from a None bed to a chair ( including a wheelchair)? Standing up from a A little chair using your arms? (e.g., wheelchair, bedside chair) Walking in hospital A little room? Climbing 3-5 steps Total with a railing? Mobility Score 19 Mobility Level [facility] Mobility 6 Walk 10 steps or more Mobility Calculator Rehab PT IP Eval Objective Appearance Patient Behavior Appropriate,Cooperative Patient Orientation Person,Place,Situation Difficulty following none instructions Speech Pattern Clear Ambulation Patient Able to Yes Ambulate Ambulation Observation IP General Gait Wide Based Gait Pattern Observation Ambulation Distance 3 (feet) Ambulation Assistive Standard Walker Device Ambulation Ability Supervision/Stand by Balance Ability to Arise Able, uses arms to help Sitting Balance Steady, safe Standing Balance Unsteady Dynamic Sitting Good Balance Ability Dynamic Standing Poor Balance Ability Transfers Bed Transfer Ability Independent Sit to Stand Bed Supervision/Stand by Transfer Ability Rehab PT IP prob,goals,plan Problems Date of Evaluation: 12/07/24 PT IP Problems Other Other Pt Problem endurance Rehab Potential Rehab Potential Innapropriate for Skilled Therapy Discharge Plan PT Discharge Plan Pt presents at his baseline with mobility. Pt not appropriate for skilled acute care PT d/t pt's mobility being baseline/IND with transfers. PT recommending PT services to address strength deficits. Eval Complexity Eval Charge Codes 19336 - Moderate Complexity PHYSICIAN CERTIFICATION: I certify the specified therapy services for Bebeto Christiansen are required, authorized, and reviewed every 30 days.
[2024-12-07] MEDS: INSULIN GLARGINE 100 UNITS/ML 3ML FLEXPEN 60 UNIT SUBCUT ×2 (10:53→20:08)
[2024-12-07 11:19] LABS: C-Reactive Protein 284.5 mg/L (0-4)
--- NOTE | 2024-12-07 12:54 | SW/DCPLANNER ---
Addendum entered by Melissa Spaulding 12/08/24 15:43: Per Kayy fletcher/ [facility] patient does not have an out of pocket cost for medications and they will be delivered to patient's home this evening. Patient has been informed regarding discharge plan. Addendum entered by Melissa Spaulding 12/08/24 14:08: Patient information/order has been faxed to [facility] for home IV medications. has ordered a midline to be placed. Patient will discharge home this afternoon. Original Note: Spoke with patient regarding outpatient services for iv antibiotics or if patient can do it at home or [facility] facility. Patient stated that he could do it at home and that he has done it before. Once Dr Romero gets patient's dose and how many times a day we will get patient sat up. Patient does not qualify for home health with his insurance. Prashanth Hardy
--- NOTE | 2024-12-07 13:51 | HMH.PTWOUND ---
Rehab Inpt Wound Evaluation Rehab IP Wound Evaluation Start: 12/07/24 00:43 Freq: ONCE Status: Active Protocol: Document 12/07/24 13:46 NANCY (Rec: 12/07/24 13:51 PHORNEGRA [id number]) Rehab PT Wound Assessment Subjective Subjective 64-year-old male who is well-known to our service line and has a past medical history significant for diabetic foot ulcer, chronic kidney disease, atrial fibrillation, iron deficiency anemia, morbid obesity, systolic dysfunction congestive heart failure, diabetic neuropathy, peripheral vascular disease, obstructive sleep apnea, hypertension, and diabetes who presents with a chief complaint of a laceration to his right lower extremity. Due to patient's symptoms, he presented to the emergency room for evaluation. While in the emergency room, patient had a significant elevation in his white blood cell count, high heart rate, low potassium, and chronic wounds to his lower extremities. Patient was meeting sepsis criteria, so he was admitted for further management. Pt presents with R foot and multiple buttock/sacral area wounds upon adm. Wound Right Buttock Wound Type Pressure Ulcer Is This a Chronic Yes Wound Wound Staging Stage III Query Text:Stage I - Unbroken, red skin, no blanching. Stage II - Skin broken, superficial skin loss involving epidermis alone or also dermis. Partial loss of skin layers. Stage III - Pressure area involves epidermis, dermis and subcutaneous tissue, full thickness skin loss. Stage IV - Pressure area involves epidermis, subcutaneous tissue, bone and other supportive tissue. Full thickness skin loss with extensive destruction of underlying tissue and structures. Wound Length (cm) 4.0 Wound Width (cm) 8.0 Wound Depth (cm) 0.2 Wound Bed Appearance Beefy Red Wound Margins Well Defined Description Surrounding Tissue [place] Appearance Wound Drainage Serosanguineous Description Drainage Amount Small Primary Dressing Composite Dressing Change Tolerated Well Patient Tolerance Plan/Recommendation Comment [facility] [place] appropriately caring for buttock and sacral wounds at this time. Multiple wounds noted with largest wound measured. all wounds appear to have full granulation tissue without necrosis at this time. R foot wound beign cared for by podiatry service. Will assist with wound care as needed for further debridement or dressing changes. Eval Complexity Eval Charge Codes 26914 - High Complexity [place] Wound Assessment Tool Assessment Wound size 4=Length x Width 36.1--<80 sq cm Wound depth 3=Full thickness skin loss involving damage or necrosis of Wound edges 3=Well-defined, not attached to wound base Wound undermining 1=None present Necrotic tissue type 1=Non visible Necrotic tissue 1=None visible amount Exudate type 3=Serosanguineous: thin, watery, pale red/pink Exudate amount 3=Small Skin color 1=[place] or normal for ethnic group surrounding wound Peripheral tissue 1=No swelling or edema edema Peripheral tissue 1=None present induration Granulation tissue 2=Bright, beefy red;75% to 100% of wound filled &/or tissue overgrowth Epithelialization 5= < 25% wound covered Wound assessment 29 total score PHYSICIAN CERTIFICATION: I certify the specified therapy services for Bebeto Christiansen are required, authorized, and reviewed every 30 days.
[2024-12-07 13:53] LABS: Magnesium 2.1 mg/dl (1.6-2.3)
[2024-12-07] MEDS: POTASSIUM CHLORIDE 20MEQ TAB 40 MEQ PO ×3 (14:12→20:07)
[2024-12-07 16:38] LABS: POC Glucose,Bedside 192 gm/dL (70-110)
[2024-12-07 16:38] LABS: POC Glucose,Bedside 225 gm/dL (70-110)
[2024-12-07 16:57] LABS: POC Glucose,Bedside 146 gm/dL (70-110)
--- NOTE | 2024-12-07 18:08 | PC.NURSE ---
AOX4, SAT UP TO CHAIR FOR MOST OF SHIFT. BEDSIDE DEBRIDEMENT PER PODIATRY TODAY. TOLERATING PO INTAKE. IVF DC'D PER PROVIDER.
[2024-12-07 19:56] LABS: POC Glucose,Bedside 158 gm/dL (70-110)
--- NOTE | 2024-12-07 21:40 | P.PN_ITS ---
Subjective *Date: 12/20/24 *Time: 12:54 Interval history: Patient feeling slightly better today, right foot dressed and wrapped. Tolerating p.o. intake. Exam Data for Last 24 hours Vital signs and Labs for Last 24 Hours: Temp Pulse Resp BP Pulse Ox O2 Del Method 97.4 F L 97 H 18 100/61 L 95 Room Air 12/07/24 20:00 12/07/24 20:00 12/07/24 20:00 12/07/24 20:00 12/07/24 20:00 12/07/24 21:00 Laboratory Results - last 24 hr 12/06/24 23:45: Urine Sodium 47.0 12/07/24 05:50: POC Glucose 238 H 12/07/24 06:28: WBC 13.7 H D, RBC 4.35 L, Hgb 8.9 L D, Hct 30.1 L, MCV 69.2 L, MCH 20.0 L, MCHC 28.9 L, RDW 20.0 H, Plt Count 359, MPV 9.0, Neut % (Auto) 86.6 H, Lymph % (Auto) 7.5 L, [place] % (Auto) 3.7, Eos % (Auto) 1.2, Baso % (Auto) 0.3, Neut # (Auto) 11.9 H, Lymph # (Auto) 1.0, [place] # (Auto) 0.5, Eos # (Auto) 0.2, Baso # (Auto) 0.0, ESR 96 H, Sodium 135 L, Potassium 2.7 L*, Chloride 91 L, Carbon Dioxide 33 H, Anion Gap 13.7, BUN 48 H, Creatinine 2.20 H D, Estimated Creat Clear 41, Estimated GFR 30 L, Est GFR ( Amer) 37 L D, Glucose 221 H D, Calcium 8.3 L, Magnesium 2.1, C-Reactive Protein 284.5 H 12/07/24 08:30: POC Glucose 192 H 12/07/24 12:50: POC Glucose 225 H 12/07/24 16:49: POC Glucose 146 H 12/07/24 19:41: POC Glucose 158 H I & O for Last 24 hours: Intake & Output 12/04/24 12/05/24 12/06/24 12/07/24 23:59 23:59 23:59 23:59 Intake Total 700 / 1060 2093.333 / 2092.333 Output Total 0 / 0 950 / 950 Balance 700 / 1060 1143.333 / 1143.333 Weight 170.097 kg 176.584 kg Microbiology Reports for the Last 24 Hours: Microbiology 12/06/24 14:52 Blood Blood Culture - Preliminary NO GROWTH AFTER 24 HOURS 12/06/24 14:04 Blood Blood Culture - Preliminary NO GROWTH AFTER 24 HOURS 12/06/24 14:20 Foot,Right Gram Stain - Final 12/06/24 14:20 Foot,Right Wound Culture - Preliminary Constitutional Constitutional: no acute distress and obese *Routine HEENT Exam Head: Present normocephalic Eye: Present EOMI and PERRL ENT: Present mucous membranes moist *Routine Neck Exam Neck: Present supple; Absent lymphadenopathy *Routine Respiratory Exam Respiratory: Present CTA bilaterally *Routine Cardiovascular Exam Cardiovascular: Present RRR *Routine Abdominal Exam Abdominal: Present soft and normoactive bowel sounds; Absent tenderness *Routine Extremities Exam Extremities: Present edema; Absent cyanosis or clubbing *Routine Skin Exam Skin: Present warm; Absent rash *Routine Neurological Exam Neurological: Present alert and oriented X3 Assessment and Plan *Assessment and plan (1) Diabetic foot ulcer: Status: Acute Qualifiers: Diabetes mellitus type: other specified (including ASHKAN) Diabetic foot ulcer location: unspecified part of foot Laterality: unspecified laterality Non-pressure ulcer stage: unspecified non-pressure ulcer stage Qualified Code(s): E13.621 - Other specified diabetes mellitus with foot ulcer; L97.509 - Non-pressure chronic ulcer of other part of unspecified foot with unspecified severity Category: Medical Code(s): E11.621 - Type 2 diabetes mellitus with foot ulcer; L97.509 - Non-pressure garage mechanic latonya ulcer of other part of unspecified foot with unspecified severity (2) Sepsis: Status: Acute Qualifiers: Acute renal failure type: unspecified Sepsis acute organ dysfunction status: with acute organ dysfunction Sepsis type: sepsis due to unspecified organism Severe sepsis acute organ dysfunction type: acute renal failure Severe sepsis shock status: without septic shock Qualified Code(s): A41.9 - Sepsis, unspecified organism; R65.20 - Severe sepsis without septic shock; N17.9 - Acute kidney failure, unspecified Category: Medical Code(s): A41.9 - Sepsis, unspecified organism (3) Acute hypokalemia: Status: Acute Category: Medical Code(s): E87.6 - Hypokalemia (4) Acute kidney injury superimposed on chronic kidney disease: Status: Acute Category: Medical Code(s): N17.9 - Acute kidney failure, unspecified; N18.9 - Chronic kidney disease, unspecified (5) Cellulitis of leg, right: Status: Acute Category: Medical Code(s): L03.115 - Cellulitis of right lower limb (6) Morbid obesity with BMI of 45.0-49.9, adult: Status: Acute Category: Medical Code(s): E66.01 - Morbid (severe) obesity due to excess calories; Z68.42 - Body mass index [BMI] 45.0-49.9, adult (7) Lactic acidosis: Status: Acute Category: Medical Code(s): E87.20 - Acidosis, unspecified (8) Leukocytosis: Status: Acute Qualifiers: Leukocytosis type: unspecified Qualified Code(s): D72.829 - Elevated white blood cell count, unspecified Category: Medical Code(s): D72.829 - Elevated white blood cell count, unspecified (9) Hyponatremia: Status: Acute Category: Medical Code(s): E87.1 - Hypo-osmolality and hyponatremia Plan Bebeto Christiansen is a 64-year-old male who presented with worsening right subfifth metatarsal diabetic foot ulcer and admitted for the same. Sepsis Infected diabetic foot ulcer Bilateral lower extremity cellulitis Leukocytosis with left shift ? Podiatry consulted, s/p bedside full-thickness debridement. Cultures obtained, pending. Advised to continue IV antibiotics. ? Continue IV vancomycin, Zosyn 3.375 g every 6 hours. ? WBC 13.7, HR 100. Continues to meet sepsis criteria. ? Follow-up surgical cultures, blood cultures. #LUPE on CKD - Creatinine improved from 2.8-2.2 with IV fluids. Patient tolerated p.o. intake. ? Follow-up morning RFT's. #Lymphedema - Patient's lower extremities are consistent with lymphedema stage IV #Type 2 diabetes ? Hemoglobin A1c greater than 14%, mildly worsened from 10.5% just 2 months ago after starting Mounjaro. ? Thoroughly educated on nutritional changes. ? Continue home Lantus 60 units twice daily. ? Patient previously intolerant to metformin, holding off on SGLT2i due skin breakdown in the groin area. ? Continue home pregabalin 100 mg 3 times daily. #HFpEF #Lower extremity wounds ? Will hold home Bumex, metolazone due to LUPE. Avoiding spironolactone due to refractory LUPE in the past. ? Continue follow-up with wound care for lower extremity dressing changes. ? Continue home tramadol, tizanidine for lower extremity wound pain. #Anxiety/depression ? Patient states his anxiety is not well-controlled with paroxetine, switched to Lexapro 20 mg daily. ? Follow-up with PCP for further evaluation management.
[2024-12-08] VITALS: BP 104/63; PULSE 75; PULSE 90; RESP 18; TEMP 36.7; O2SAT 95
[2024-12-08] MEDS: PIPERCILLIN/TAZO 3.375 GM in 0.9 % SODIUM CHLORIDE 50 ML IV ×2 (03:45→08:33)
[2024-12-08 04:00] VITALS: BP 119/77; PULSE 88; PULSE 90; RESP 16; TEMP 36.9; O2SAT 95; BMI 48.4
[2024-12-08] MEDS: VANCOMYCIN HCL 2,250 MG in 0.9 % SODIUM CHLORIDE 250 ML 125 MG IV (05:19)
[2024-12-08 06:32] LABS: POC Glucose,Bedside 170 gm/dL (70-110)
[2024-12-08] MEDS: humaLOG 100 UNITS/ML 10ML VIAL (SSI) SUBCUT ×2 (06:45→10:36)
--- NOTE | 2024-12-08 06:45 | EXP.ORTH.PN ---
Subjective *Date: 12/08/24 *Time: 15:15 Interval history: 12/08/24: Podiatry follow up Ortho Exam (Inpt) Vital signs and Labs for Last 24 Hours: Temp Pulse Resp BP Pulse Ox O2 Del Method 98.4 F 88 16 119/77 95 Room Air 12/08/24 04:00 12/08/24 04:00 12/08/24 04:00 12/08/24 04:00 12/08/24 04:00 12/08/24 04:00 Laboratory Results - last 24 hr 12/07/24 06:28: WBC 13.7 H D, RBC 4.35 L, Hgb 8.9 L D, Hct 30.1 L, MCV 69.2 L, MCH 20.0 L, MCHC 28.9 L, RDW 20.0 H, Plt Count 359, MPV 9.0, Neut % (Auto) 86.6 H, Lymph % (Auto) 7.5 L, [place] % (Auto) 3.7, Eos % (Auto) 1.2, Baso % (Auto) 0.3, Neut # (Auto) 11.9 H, Lymph # (Auto) 1.0, [place] # (Auto) 0.5, Eos # (Auto) 0.2, Baso # (Auto) 0.0, ESR 96 H, Sodium 135 L, Potassium 2.7 L*, Chloride 91 L, Carbon Dioxide 33 H, Anion Gap 13.7, BUN 48 H, Creatinine 2.20 H D, Estimated Creat Clear 41, Estimated GFR 30 L, Est GFR ( Amer) 37 L D, Glucose 221 H D, Calcium 8.3 L, Magnesium 2.1, C-Reactive Protein 284.5 H 12/07/24 08:30: POC Glucose 192 H 12/07/24 12:50: POC Glucose 225 H 12/07/24 16:49: POC Glucose 146 H 12/07/24 19:41: POC Glucose 158 H 12/08/24 06:25: POC Glucose 170 H I & O for Labs for Last 24 Hours: Intake & Output 12/05/24 12/06/24 12/07/24 12/08/24 23:59 23:59 23:59 23:59 Intake Total 700 / 700 2143.333 / 2143.333 30 30 Output Total 0 / 0 950 / 950 525 / 525 Balance 700 / 700 1193.333 / 1193.333 -495 / -495 Weight 375 lb 389 lb 4.8 oz 389 lb 4.817 oz Microbiology Reports for the Last 24 Hours: Microbiology 12/07/24 07:38 Foot,Right - Wound Gram Stain - Final 12/06/24 14:52 Blood Blood Culture - Preliminary NO GROWTH AFTER 24 HOURS 12/06/24 14:04 Blood Blood Culture - Preliminary NO GROWTH AFTER 24 HOURS 12/06/24 14:20 Foot,Right Gram Stain - Final 12/06/24 14:20 Foot,Right Wound Culture - Preliminary Constitutional: Present no acute distress and cooperative Head: Present normocephalic Eyes: Present as per HPI Neck: Present trachea midline Respiratory: Present normal respiratory effort Cardiac: Present pedal pulses present Comment:: HR improving now in the low 50's. Comments:: deferred (male): Present deferred Extremities: Present edema (B/l lower legs cellulitis/lymphedema wraps intact, no drainage or strikethrough noted. ) Skin: Present erythema, dry, warm and wounds Comment:: B/L LE edema, erythema with weeping drainage from both legs. Multiple areas of loose peeling sloughing skin to both anterior ankles. -Right hallux distal tip ulcer 0.2x0.2x0.1cm -Right sub 5th met DFU I&D Debrided with a 15' blade and forceps sharply, excisionally through skin into the subcu layer in deep fascia 3.1 x 2.5x2 cm deep. Good bleeding was noted. -Left 3rd tip of toe 0.3 x0.3x 0cm,debrided was 100% granular, Sharp excisional full-thickness debridement with 15 blade through skin into subcu. Good bleeding was noted. -Left 3rd tip of toe 0.3 x0.3x 0cm,Sharp excisional full-thickness debridement with 15 blade through skin into subcu. Good bleeding was noted. -Right lateral foot ulcer, 2.0x2.0x 0.0 cm,debrided was 100% granular, Sharp excisional full-thickness debridement with 15 blade through skin into subcu. Good bleeding was noted. -Small sore to Left 3rd distal tip toe, 100% granular 0.2x0.2x0.0cm, debrided was 100% granular, Sharp excisional full-thickness debridement with 15 blade through skin into subcu. Good bleeding was noted. -Left Lateral foot ulcer, 100% granular 3.2x 2.0x 0.1cm, debrided was 100% granular, Sharp excisional full-thickness debridement with 15 blade through skin into subcu.Good bleeding was noted. -Left lateral heel 0.3x0.3x0.1cm, debrided was 100% granular, Sharp excisional full-thickness debridement with 15 blade through skin into subcu. Good bleeding was noted. Neuro: Present oriented x 3; Absent Sensory Function Intact Comment:: Some decreased/absent sensation to plantar feet secondary to DM neuropathy. Ankle: bilateral: erythema, bilateral: swelling and bilateral: tenderness (tenderness (L>R LE)) Feet/Toes: bilateral: amputation (amputation (R 4th toe, L 5th toe amp)), bilateral: erythema and bilateral: tenderness ((L>R LE)) Assessment and Plan *Assessment and plan (1) Diabetic neuropathy: Status: Acute Qualifiers: Diabetes mellitus complication detail: diabetic polyneuropathy Diabetes mellitus type: type 2 Qualified Code(s): E11.42 - Type 2 diabetes mellitus with diabetic polyneuropathy Category: Medical Code(s): E11.40 - Type 2 diabetes mellitus with diabetic neuropathy, unspecified (2) Peripheral vascular disease: Status: Acute Category: Medical Code(s): I73.9 - Peripheral vascular disease, unspecified (3) Foreign body of right heel: Status: Acute Category: Medical Code(s): S90.851A - Superficial foreign body, right foot, initial encounter (4) Cellulitis: Status: Acute Qualifiers: Laterality: unspecified laterality Site of cellulitis: extremity Site of cellulitis of extremity: lower extremity Qualified Code(s): L03.119 - Cellulitis of unspecified part of limb Category: Medical Code(s): L03.90 - Cellulitis, unspecified (5) History of amputation of right fourth toe: Status: Acute Category: Surgical Code(s): Z89.421 - Acquired absence of other right toe(s) (6) History of amputation of left fifth toe: Status: Acute Category: Surgical Code(s): Z89.422 - Acquired absence of other left toe(s) (7) Peripheral arterial disease: Status: Acute Category: Medical Code(s): I73.9 - Peripheral vascular disease, unspecified (8) Venous stasis ulcer of both lower extremities without varicose veins: Status: Acute Category: Medical Code(s): I87.2 - Venous insufficiency (chronic) (peripheral); L97.919 - Non-pressure chronic ulcer of unspecified part of right lower leg with unspecified severity; L97.929 - Non-pressure chronic ulcer of unspecified part of left lower leg with unspecified severity (9) Diabetic ulcer of right foot: Status: Acute Qualifiers: Diabetes mellitus type: type 2 Diabetic foot ulcer location: other Non-pressure ulcer stage: with fat layer exposed Qualified Code(s): E11.621 - Type 2 diabetes mellitus with foot ulcer; L97.512 - Non-pressure chronic ulcer of other part of right foot with fat layer exposed Category: Medical Code(s): E11.621 - Type 2 diabetes mellitus with foot ulcer; L97.519 - Non-pressure chronic ulcer of other part of right foot with unspecified severity (10) Diabetic ulcer of left foot: Problem Comment: Left lateral foot DFU Status: Acute Qualifiers: Diabetes mellitus type: type 2 Diabetic foot ulcer location: other Non-pressure ulcer stage: with fat layer exposed Qualified Code(s): E11.621 - Type 2 diabetes mellitus with foot ulcer; L97.522 - Non-pressure chronic ulcer of other part of left foot with fat layer exposed Category: Medical Code(s): E11.621 - Type 2 diabetes mellitus with foot ulcer; L97.529 - Non-pressure chronic ulcer of other part of left foot with unspecified severity (11) Morbid obesity with BMI of 45.0-49.9, adult: Status: Acute Category: Medical Code(s): E66.01 - Morbid (severe) obesity due to excess calories; Z68.42 - Body mass index [BMI] 45.0-49.9, adult Plan 12/08/24: -Dr. Romero and I have Reviewed CT scan 12/06/24: Coronal series 1001, image 63?66 and sagittal series 1002, image 31 she has a small foreign body open wound/soft tissue defect consistent with area of DFU. No evidence of cortical erosion consistent with osteomyelitis noted. -Labs Reviewed: 12/07/24, WBC trending down from 19.4 to today 12/07/24 at 13.7. ESR. 96, CRP. 284.5 -Wounds debridement see skin section for wound measurements (buttocks not evaluated by Podiatry). -Wound culture was obtained from right sub-fifth metatarsal DFU was taken from 12/07/24-Gram stain showing moderate gram-positive cocci, moderate gram-negative cocci- Final is pending -Continue IV abx: Vanco, Zosyn. -Discussed plan of care with hospitalist and Pete from [facility] wound care team. -Discussed possibility of wound VAC. -Discussed need for lymphedema therapy. -Patient has history of noncompliance, no showing appointments, unable to do his own dressing changes, chronic cellulitis, chronic bilateral lower extremity lymphedema, diabetes. Currently he lives with his sister who helps him with dressing changes a few times a week. -He has been offered SNF placement in the past but has refused. In my opinion his best chance to avoid worsening infection, progression to osteomyelitis and foot limb salvage attempt would be SNF placement with continued IV antibiotics via PICC and wound VAC therapy change 3 times weekly. -If patient continues to refuse SNF placement, he is high risk for worsening/recurrent infection, osteomyelitis, sepsis, partial foot or limb loss. -All orders per Dr. Romero.
[2024-12-08] MEDS: TRAMADOL 50MG TABLET 75 MG PO (07:39)
[2024-12-08] MEDS: PREGABALIN 100MG CAPSULE 100 MG PO ×2 (07:42→13:17)
[2024-12-08] MEDS: ESCITALOPRAM 20MG TABLET 20 MG PO (07:43)
[2024-12-08] MEDS: METOPROLOL SUCCINATE XL 25MG TABLET 25 MG PO (07:43)
[2024-12-08] MEDS: APIXABAN 5MG TABLET 5 MG PO (07:43)
[2024-12-08 08:00] VITALS: BP 113/64; PULSE 100; PULSE 107; RESP 18; TEMP 36.4; O2SAT 91
[2024-12-08] MEDS: INSULIN GLARGINE 100 UNITS/ML 3ML FLEXPEN 60 UNIT SUBCUT (08:31)
[2024-12-08 08:45] LABS: Hematocrit 30.8 % (42.0-52.0); Hemoglobin 9.2 g/dL (14.1-18.0); Immature Granulocytes % 0.6 %; Mean Corpuscular HGB Conc 29.9 g/dL (31.8-35.4); Mean Corpuscular Hemoglobin 20.5 pg (27.0-31.2); Mean Corpuscular Volume 68.6 fl (80-94); Nucleated Red Blood Cells % 0 %; Platelet Count 375 K/mm3 (142-424); Red Blood Count 4.49 M/mm3 (4.60-6.20); Red Cell Distribution Width-SD 48.0 fL; White Blood Count 11.0 K/mm3 (4.8-10.8)
[2024-12-08 08:46] LABS: Chloride 91 mmol/L (98-107); Sodium 131 mmol/L (136-145)
[2024-12-08 08:49] LABS: Anion Gap 10.0 mEq/L (5-15); Blood Urea Nitrogen 39 mg/dl (9-20); Carbon Dioxide 33 mmol/L (22.0-30.0); Creatinine Clearance Estimated 56 mL/min (50-200); Creatinine,Serum 1.60 mg/dl (0.66-1.25); Estimated Glomerular Filt Rate 44 ml/min (>60); GFR (African American) 53 ML/MIN (>60)
[2024-12-08 08:50] LABS: Calcium 9.0 mg/dl (8.4-10.2); Glucose 183 mg/dl (74-100)
[2024-12-08 08:56] LABS: C-Reactive Protein 281.3 mg/L (0-4)
[2024-12-08 09:26] LABS: NT Pro Brain Natriuretic Pep. 2750 pg/mL (0-125)
[2024-12-08 09:52] LABS: Potassium 3.0 mmoL/L (3.5-5.1)
[2024-12-08 10:22] LABS: Magnesium 2.0 mg/dl (1.6-2.3)
[2024-12-08] MEDS: POTASSIUM CHLORIDE 20MEQ TAB 40 MEQ PO ×2 (10:23→13:17)
[2024-12-08 10:32] LABS: POC Glucose,Bedside 176 gm/dL (70-110)
[2024-12-08 12:00] VITALS: BP 108/68; PULSE 120; PULSE 86; RESP 18; TEMP 36.8; O2SAT 97
[2024-12-08] MEDS: BUMETANIDE 1 MG TABLET 2 MG PO (13:17)
--- NOTE | 2024-12-08 13:53 | EXP.DC.SUM ---
General Admission date:: 12/06/24 HPI HPI HPI: This is a 64-year-old male who is well-known to our service line and has a past medical history significant for diabetic foot ulcer, chronic kidney disease, atrial fibrillation, iron deficiency anemia, morbid obesity, systolic dysfunction congestive heart failure, diabetic neuropathy, peripheral vascular disease, obstructive sleep apnea, hypertension, and diabetes who presents with a chief complaint of a laceration to his right lower extremity. Due to patient's symptoms, he presented to the emergency room for evaluation. While in the emergency room, patient had a significant elevation in his white blood cell count, hide heart heart rate, low potassium, and chronic wounds to his lower extremities. Patient was meeting sepsis criteria, so he was admitted for further management. During my evaluation of the patient, patient states he noted the laceration on his lower extremity last night. He reports that someone was changing his wounds and noticed that he had worsening of his chronic cellulitis. He is currently denying any chest pain, lightheadedness, dizziness, fever, chills, rigors, nausea, vomiting, diarrhea. CT scan of the lower extremity shows diffuse soft tissue edema consistent with cellulitis, no loculated fluid collection, and no foreign body. Additional pertinent values obtained include a white blood cell count of 19.4, hemoglobin 10.1, hematocrit 33.2, platelet count of 444, neutrophils 89.8%, sodium 128, potassium of 2.7, chloride of 84, venous lactic acid of 2.6, creatinine 2.8, BUN of 49, GFR of 23, calcium of 8.3, and alkaline phosphate of 232. 12/07/24: Podiatry consulted today for Dry gangrene to medial aspect of right foot. Podiatry last saw this patient while inpatient on 09/13/2024 for B/L LE Cellulitis. Hospital Course Hospital Course Hospital Course: Bebeto Christiansen is a 64-year-old male who presented with worsening right subfifth metatarsal diabetic foot ulcer and admitted for the same. Sepsis, resolved Infected diabetic foot ulcer Bilateral lower extremity cellulitis ? Podiatry consulted, s/p bedside full-thickness debridement on 12/07/2024 of right fifth metatarsal diabetic foot ulcer. Wound cultures pending at this time. ? Clinically improved with IV vancomycin, Zosyn. WBC improved, 11.0. No longer septic. ? Discussed with podiatry, recommended IV cefepime 2 g Q12 for 3 weeks. PICC line placed. IV antibiotic will be coordinated with bio prescription and will be administered at home. ? Follow-up with podiatry within 2 weeks. #LUPE on CKD - Creatinine improved from 2.8-1.6 with fluid rehydration. #Lymphedema - Patient's lower extremities are consistent with lymphedema stage IV. #Type 2 diabetes ? Hemoglobin A1c greater than 14%, mildly worsened from 10.5% just 2 months ago after starting Mounjaro. ? Thoroughly educated on nutritional changes. ? Continue home Lantus 60 units twice daily. ? Patient previously intolerant to metformin, holding off on SGLT2i due skin breakdown in the groin area. ? Continue home pregabalin 100 mg 3 times daily. ? Will follow-up with PCP for further management of diabetes. #HFpEF #Lower extremity wounds ? Continue home Bumex 2 mg 3 times daily, metolazone 2.5 mg daily. Avoiding spironolactone due to refractory LUPE in the past. ? Continue follow-up with wound care for lower extremity dressing changes. ? Continue home tramadol, tizanidine for lower extremity wound pain. #Anxiety/depression ? Continue Lexapro 20 mg daily. Exam Data for Last 24 hours Vital signs and Labs for Last 24 Hours: Temp Pulse Resp BP Pulse Ox O2 Del Method 98.3 F 86 18 108/68 L 97 Room Air 12/08/24 12:00 12/08/24 12:00 12/08/24 12:00 12/08/24 12:00 12/08/24 12:00 12/08/24 12:06 Laboratory Results - last 24 hr 12/07/24 06:28: Magnesium 2.1 12/07/24 08:30: POC Glucose 192 H 12/07/24 12:50: POC Glucose 225 H 12/07/24 16:49: POC Glucose 146 H 12/07/24 19:41: POC Glucose 158 H 12/08/24 06:25: POC Glucose 170 H 12/08/24 08:30: WBC 11.0 H, RBC 4.49 L, Hgb 9.2 L, Hct 30.8 L, MCV 68.6 L, MCH 20.5 L, MCHC 29.9 L, RDW 19.9 H, Plt Count 375, MPV 8.7, Neut % (Auto) 81.5 H, Lymph % (Auto) 12.1, Carver % (Auto) 4.4, Eos % (Auto) 1.0, Baso % (Auto) 0.4, Neut # (Auto) 8.9 H, Lymph # (Auto) 1.3, Carver # (Auto) 0.5, Eos # (Auto) 0.1, Baso # (Auto) 0.0, ESR 118 H, Sodium 131 L, Potassium 3.0 L, Chloride 91 L, Carbon Dioxide 33 H, Anion Gap 10.0, BUN 39 H, Creatinine 1.60 H D, Estimated Creat Clear 56, Estimated GFR 44 L, Est GFR ( Amer) 53 L D, Glucose 183 H, Calcium 9.0, Magnesium 2.0, C-Reactive Protein 281.3 H, NT-Pro-B Natriuret Pep 2750 H 12/08/24 10:24: POC Glucose 176 H I & O for Last 24 hours: Intake & Output 12/05/24 12/06/24 12/07/24 12/08/24 23:59 23:59 23:59 23:59 Intake Total 700 / 1060 2143.333 / 2173.333 1280 / 1280 Output Total 0 / 0 950 / 1300 1375 / 1375 Balance 700 / 1060 1193.333 / 873.333 -95 / -95 Weight 170.097 kg 176.584 kg 176.584 kg Microbiology Reports for the Last 24 Hours: Microbiology 12/06/24 14:20 Foot,Right Gram Stain - Final 12/06/24 14:20 Foot,Right Wound Culture - Preliminary Gram Negative Rods Gram Negative Rods#2 Gram Positive Cocci 12/07/24 07:38 Foot,Right - Wound Gram Stain - Final 12/07/24 07:38 Foot,Right - Wound Wound Culture - Preliminary 12/06/24 14:52 Blood Blood Culture - Preliminary NO GROWTH AFTER 24 HOURS 12/06/24 14:04 Blood Blood Culture - Preliminary NO GROWTH AFTER 24 HOURS Constitutional Constitutional: no acute distress and obese *Routine HEENT Exam Head: Present normocephalic Eye: Present EOMI and PERRL ENT: Present mucous membranes moist *Routine Neck Exam Neck: Present supple; Absent lymphadenopathy *Routine Respiratory Exam Respiratory: Present CTA bilaterally *Routine Cardiovascular Exam Cardiovascular: Present RRR *Routine Abdominal Exam Abdominal: Present soft and normoactive bowel sounds; Absent tenderness *Routine Extremities Exam Extremities: Present edema; Absent cyanosis or clubbing Comments: Right foot dressed and wrapped. *Routine Skin Exam Skin: Present warm; Absent rash *Routine Neurological Exam Neurological: Present alert and oriented X3 Results Data Completed and Pending Labs on day of discharge: Labs from last 24 hours 12/08/24 12/08/24 12/08/24 10:24 08:30 06:25 WBC 11.0 H RBC 4.49 L Hgb 9.2 L Hct 30.8 L MCV 68.6 L MCH 20.5 L MCHC 29.9 L RDW 19.9 H Plt Count 375 MPV 8.7 Neut % (Auto) 81.5 H Lymph % (Auto) 12.1 Carver % (Auto) 4.4 Eos % (Auto) 1.0 Baso % (Auto) 0.4 Neut # (Auto) 8.9 H Lymph # (Auto) 1.3 Carver # (Auto) 0.5 Eos # (Auto) 0.1 Baso # (Auto) 0.0 ESR 118 H Sodium 131 L Potassium 3.0 L Chloride 91 L Carbon Dioxide 33 H Anion Gap 10.0 BUN 39 H Creatinine 1.60 H D Estimated Creat Clear 56 Estimated GFR 44 L Est GFR ( Amer) 53 L D Glucose 183 H POC Glucose 176 H 170 H Calcium 9.0 Magnesium 2.0 C-Reactive Protein 281.3 H NT-Pro-B Natriuret Pep 2750 H 12/07/24 12/07/24 12/07/24 19:41 16:49 12:50 WBC RBC Hgb Hct MCV MCH MCHC RDW Plt Count MPV Neut % (Auto) Lymph % (Auto) Carver % (Auto) Eos % (Auto) Baso % (Auto) Neut # (Auto) Lymph # (Auto) Carver # (Auto) Eos # (Auto) Baso # (Auto) ESR Sodium Potassium Chloride Carbon Dioxide Anion Gap BUN Creatinine Estimated Creat Clear Estimated GFR Est GFR ( Amer) Glucose POC Glucose 158 H 146 H 225 H Calcium Magnesium C-Reactive Protein NT-Pro-B Natriuret Pep 12/07/24 12/07/24 08:30 06:28 WBC RBC Hgb Hct MCV MCH MCHC RDW Plt Count MPV Neut % (Auto) Lymph % (Auto) Carver % (Auto) Eos % (Auto) Baso % (Auto) Neut # (Auto) Lymph # (Auto) Carver # (Auto) Eos # (Auto) Baso # (Auto) ESR Sodium Potassium Chloride Carbon Dioxide Anion Gap BUN Creatinine Estimated Creat Clear Estimated GFR Est GFR ( Amer) Glucose POC Glucose 192 H Calcium Magnesium 2.1 C-Reactive Protein NT-Pro-B Natriuret Pep Preliminary micro results at discharge 12/06/24 14:20 Wound Culture - Preliminary Foot,Right Gram Negative Rods Gram Negative Rods#2 Gram Positive Cocci 12/07/24 07:38 Wound Culture - Preliminary Foot,Right - Wound 12/06/24 14:52 Blood Culture - Preliminary Blood NO GROWTH AFTER 24 HOURS 12/06/24 14:04 Blood Culture - Preliminary Blood NO GROWTH AFTER 24 HOURS DS: Diagnosis Discharge Diagnosis (1) Diabetic neuropathy: Status: Acute Code(s): E11.40 - Type 2 diabetes mellitus with diabetic neuropathy, unspecified Qualifiers: Diabetes mellitus complication detail: diabetic polyneuropathy Diabetes mellitus type: type 2 Qualified Code(s): E11.42 - Type 2 diabetes mellitus with diabetic polyneuropathy (2) Peripheral vascular disease: Status: Acute Code(s): I73.9 - Peripheral vascular disease, unspecified (3) Foreign body of right heel: Status: Acute Code(s): S90.851A - Superficial foreign body, right foot, initial encounter (4) Cellulitis: Status: Acute Code(s): L03.90 - Cellulitis, unspecified Qualifiers: Laterality: unspecified laterality Site of cellulitis: extremity Site of cellulitis of extremity: lower extremity Qualified Code(s): L03.119 - Cellulitis of unspecified part of limb (5) History of amputation of right fourth toe: Status: Acute Code(s): Z89.421 - Acquired absence of other right toe(s) (6) History of amputation of left fifth toe: Status: Acute Code(s): Z89.422 - Acquired absence of other left toe(s) (7) Peripheral arterial disease: Status: Acute Code(s): I73.9 - Peripheral vascular disease, unspecified (8) Venous stasis ulcer of both lower extremities without varicose veins: Status: Acute Code(s): I87.2 - Venous insufficiency (chronic) (peripheral); L97.919 - Non-pressure chronic ulcer of unspecified part of right lower leg with unspecified severity; L97.929 - Non-pressure chronic ulcer of unspecified part of left lower leg with unspecified severity (9) Diabetic ulcer of right foot: Status: Acute Code(s): E11.621 - Type 2 diabetes mellitus with foot ulcer; L97.519 - Non-pressure chronic ulcer of other part of right foot with unspecified severity Qualifiers: Diabetes mellitus type: type 2 Diabetic foot ulcer location: other Non-pressure ulcer stage: with fat layer exposed Qualified Code(s): E11.621 - Type 2 diabetes mellitus with foot ulcer; L97.512 - Non-pressure chronic ulcer of other part of right foot with fat layer exposed (10) Diabetic ulcer of left foot: Status: Acute Code(s): E11.621 - Type 2 diabetes mellitus with foot ulcer; L97.529 - Non-pressure chronic ulcer of other part of left foot with unspecified severity Qualifiers: Diabetes mellitus type: type 2 Diabetic foot ulcer location: other Non-pressure ulcer stage: with fat layer exposed Qualified Code(s): E11.621 - Type 2 diabetes mellitus with foot ulcer; L97.522 - Non-pressure chronic ulcer of other part of left foot with fat layer exposed Problem details: Left lateral foot DFU (11) Morbid obesity with BMI of 45.0-49.9, adult: Status: Acute Code(s): E66.01 - Morbid (severe) obesity due to excess calories; Z68.42 - Body mass index [BMI] 45.0-49.9, adult Meds Home Medications and Allergies Home Medications ?Medication ?Instructions ?Recorded ?Confirmed ?Type insulin lispro 100 unit/mL See Protocol SQ ACHS 30 days #1.2 08/01/24 12/15/24 Rx subcutaneous solution (Humalog mL U-100 Insulin) insulin glargine 100 unit/mL (3 60 unit SQ BID 10/11/24 12/15/24 History mL) subcutaneous pen (Lantus Solostar U-100 Insulin) metoprolol succinate 25 mg 25 mg PO DAILY 30 days #30 tabs 11/18/24 12/15/24 Rx tablet,extended release 24 hr pregabalin 100 mg capsule 100 mg PO TID 30 days #90 caps 11/22/24 12/15/24 Rx tirzepatide 2.5 mg/0.5 mL 2.5 mg (0.5 mL) SQ WEEKLY 30 days 11/22/24 12/15/24 Rx subcutaneous pen injector #2.5 mL (Mounjaro) tizanidine 4 mg capsule 4 mg PO HSP PRN muscle spasticity 11/22/24 12/15/24 Rx #30 caps tramadol 50 mg tablet 75 mg (1.5 x 50 mg) PO Q6H PRN 11/22/24 12/15/24 Rx pain #180 tabs escitalopram oxalate 20 mg tablet 20 mg PO DAILY #90 tabs 11/23/24 12/15/24 Rx (Lexapro) apixaban 5 mg tablet (Eliquis) 5 mg PO BID 12/06/24 12/15/24 History metolazone 2.5 mg tablet 5 mg PO DAILY 12/06/24 12/15/24 History potassium chloride 20 mEq 40 meq PO DAILY 12/07/24 12/15/24 History tablet,extended release(part/cryst) bumetanide 2 mg tablet 2 mg PO TID 30 days #0 tabs 12/08/24 12/15/24 Rx cefepime 2 gram solution for IV 12/15/24 12/15/24 History injection New Prescriptions to Start Prescriptions: Allergies Allergy/AdvReac Type Severity Reaction Status Date / Time sitagliptin (From Januvia) AdvReac Severe sore Verified 12/15/24 13:34 hydromorphone (From Dilaudid) AdvReac Vomiting Verified 12/15/24 13:34 morphine AdvReac Vomiting Verified 12/15/24 13:34 Discharge Plan Disposition Patient Disposition: Home, Self-Care Condition: Fair Follow up Plan Prescriptions/Medication Reconciliation: Continued insulin glargine [Lantus Solostar U-100 Insulin] 100 unit/mL (3 mL) insulin pen 60 unit SQ BID Mounjaro 2.5 mg/0.5 mL pen injector 2.5 mg SQ WEEKLY 30 Days Qty: 2.5 0RF tizanidine 4 mg capsule 4 mg PO HSP PRN (Reason: muscle spasticity) Qty: 30 0RF pregabalin 100 mg capsule 100 mg PO TID 30 Days Qty: 90 0RF tramadol 50 mg tablet 75 mg PO Q6H PRN (Reason: pain) Qty: 180 0RF metoprolol succinate 25 mg tablet extended release 24 hr 25 mg PO DAILY 30 Days Qty: 30 0RF escitalopram oxalate [Lexapro] 20 mg tablet 20 mg PO DAILY Qty: 90 3RF insulin lispro [Humalog U-100 Insulin] 100 unit/mL Solution See Protocol SQ ACHS 30 Days Qty: 1.2 4RF Protocol: Insulin Corrective Med-Dose Regimen Condition: Fingerstick Blood Glucose Dose/Route: Insulin Units Condition: 151-200 mg/dl Dose/Route: 2 units/SQ Condition: 201-250 mg/dl Dose/Route: 5 units/SQ Condition: 251-300 mg/dl Dose/Route: 8 units/SQ Condition: 301-350 mg/dl Dose/Route: 10 units/SQ Condition: 351-400 mg/dl Dose/Route: 12 units/SQ Condition: 401-450 mg/dl Dose/Route: 15 units/SQ Condition: > 450 mg/dl Dose/Route: CALL MD Protocol Text: Medium Intensity Sliding Scale Insulin metolazone 2.5 mg tablet 5 mg PO DAILY Eliquis 5 mg tablet 5 mg PO BID potassium chloride 20 mEq tablet,ER particles/crystals 40 meq PO DAILY Patient Comments: TAKE TWO TABLETS BY MOUTH EVERY DAY Changed bumetanide 2 mg tablet 2 mg PO TID 30 Days Qty: 0 0RF No Action cefepime 2 gram recon soln IV Problem Reconciliation Problems Reviewed?: Yes Patient Discharge Instructions Patient Instructions: Cellulitis, DI for Diabetic Foot Ulcer, Stop Light Infection Print Language: Lithuanian Providers Primary Care Provider: Saulo Martinez Admit Provider: Jorge A Martin Attending Provider: Jorge A Martin
--- NOTE | 2024-12-08 14:13 | PC.NURSE ---
iv to be removed once midline placed.
[2024-12-08] MEDS: CEFEPIME HCL 2 GM in 0.9 % SODIUM CHLORIDE 100 ML IV (16:12)
--- NOTE | 2024-12-09 10:48 | SW/DCPLANNER ---
Spoke with patient on the phone. Patient stated that he is doing good. 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 Patient stated that he did get his antibiotics from [facility] and has already administered it. Patient stated that he has no concerns or questions. Prashanth Hardy
--- NOTE | 2024-12-10 07:57 | PC.NURSE ---
pts final wound culture results forwarded to the hospitalist as the pt was admitted.
--- NOTE | 2024-12-11 09:34 | PC.NURSE ---
final wound culture forwarded to the hospitalist as the pt was admitted.
== END 2024-12-08 17:22 | disposition home or self-care (01) ==
LOC: ER 17:03 → 2ND 17:08
PROVIDERS: Nurse Practitioner Family; Podiatrist; Admitting Provider Student in an Organized Health Care Education/Training Program; Emergency Provider Student in an Organized Health Care Education/Training Program; PCP Internal Medicine; Visit Provider Student in an Organized Health Care Education/Training Program
DX: E11.621 Type 2 diabetes mellitus with foot ulcer (principal); E11.42 Type 2 diabetes mellitus with diabetic polyneuropathy; E11.65 Type 2 diabetes mellitus with hyperglycemia; S90.851A Superficial foreign body, right foot, initial encounter; I87.2 Venous insufficiency (chronic) (peripheral); L97.512 Non-pressure chronic ulcer of other part of right foot with fat layer exposed; L97.522 Non-pressure chronic ulcer of other part of left foot with fat layer exposed; E66.01 Morbid (severe) obesity due to excess calories; A41.9 Sepsis, unspecified organism; R65.20 Severe sepsis without septic shock; N17.9 Acute kidney failure, unspecified; E87.6 Hypokalemia; N18.9 Chronic kidney disease, unspecified; L03.115 Cellulitis of right lower limb; E87.20 Acidosis, unspecified; E87.1 Hypo-osmolality and hyponatremia; E11.51 Type 2 diabetes mellitus with diabetic peripheral angiopathy without gangrene; I89.0 Lymphedema, not elsewhere classified; F41.9 Anxiety disorder, unspecified; I48.91 Unspecified atrial fibrillation; F32.A Depression, unspecified; E11.22 Type 2 diabetes mellitus with diabetic chronic kidney disease; I13.0 Hypertensive heart and chronic kidney disease with heart failure and stage 1 through stage 4 chronic kidney disease, or unspecified chronic kidney disease; I50.30 Unspecified diastolic (congestive) heart failure; F17.200 Nicotine dependence, unspecified, uncomplicated; Z89.422 Acquired absence of other left toe(s); Z89.421 Acquired absence of other right toe(s); Z68.42 Body mass index [BMI] 45.0-49.9, adult; Z88.5 Allergy status to narcotic agent; Z88.8 Allergy status to other drugs, medicaments and biological substances; Z79.85 Long-term (current) use of injectable non-insulin antidiabetic drugs; Z79.4 Long term (current) use of insulin; Z79.01 Long term (current) use of anticoagulants; Z79.899 Other long term (current) drug therapy
CPT/HCPCS: 36410; 36415; 73700; 80048; 80053; 82962; 83605; 83735; 83880; 84540; 85025; 85651; 86140; 87040; 87070; 87077; 87186; 87205; 87636; 93925; 96361; 96365; 96366; 96367; 96376; 97162; 97165; 99284; G0378; J0692; J2543; J3373; J3480; J7030; J7040; J7050

== ENCOUNTER 2024-12-26 11:55 | Emergency (ER) | payer MEDICARE, SELFPAY ==
[2024-12-26 11:57] VITALS: BP 143/74; PULSE 112; RESP 16; TEMP 36.9; O2SAT 98; BMI 46.8
--- NOTE | 2024-12-26 12:08 | ED_ITS ---
<Statement entered by Jennifer Felix MD - 12/26/24 14:40> I was consulted by the KRISTY, and we discussed the complexity of the problems being addressed. I approved the treatment and management plan for this patient's care in the emergency department, thus performing a substantive portion of the medical decision making. Jennifer Felix MD, MOE, FACEP Discharge Plan Disposition Patient Disposition: Home, Self-Care Condition: Good Prescriptions Prescriptions: No Action cefepime 2 gram recon soln IV insulin glargine [Lantus Solostar U-100 Insulin] 100 unit/mL (3 mL) insulin pen 60 unit SQ BID Mounjaro 2.5 mg/0.5 mL pen injector 2.5 mg SQ WEEKLY 30 Days Qty: 2.5 0RF tizanidine 4 mg capsule 4 mg PO HSP PRN (Reason: muscle spasticity) Qty: 30 0RF pregabalin 100 mg capsule 100 mg PO TID 30 Days Qty: 90 0RF tramadol 50 mg tablet 75 mg PO Q6H PRN (Reason: pain) Qty: 180 0RF metoprolol succinate 25 mg tablet extended release 24 hr 25 mg PO DAILY 30 Days Qty: 30 0RF escitalopram oxalate [Lexapro] 20 mg tablet 20 mg PO DAILY Qty: 90 3RF insulin lispro [Humalog U-100 Insulin] 100 unit/mL Solution See Protocol SQ ACHS 30 Days Qty: 1.2 4RF Protocol: Insulin Corrective Med-Dose Regimen Condition: Fingerstick Blood Glucose Dose/Route: Insulin Units Condition: 151-200 mg/dl Dose/Route: 2 units/SQ Condition: 201-250 mg/dl Dose/Route: 5 units/SQ Condition: 251-300 mg/dl Dose/Route: 8 units/SQ Condition: 301-350 mg/dl Dose/Route: 10 units/SQ Condition: 351-400 mg/dl Dose/Route: 12 units/SQ Condition: 401-450 mg/dl Dose/Route: 15 units/SQ Condition: > 450 mg/dl Dose/Route: CALL Protocol Text: Medium Intensity Sliding Scale Insulin metolazone 2.5 mg tablet 5 mg PO DAILY Eliquis 5 mg tablet 5 mg PO BID potassium chloride 20 mEq tablet,ER particles/crystals 40 meq PO DAILY Patient Comments: TAKE TWO TABLETS BY MOUTH EVERY DAY bumetanide 2 mg tablet 2 mg PO TID 30 Days Qty: 0 0RF Referrals Follow up/Referrals: Provider,Referral, MD [Referring, Medical] - See instructions Activity Restrictions/Add. Instructions Additional Instructions/Restrictions: You were evaluated on an emergency basis. It is very important that you follow- up with your primary care provider and any specialist who we discussed within the next 2 days in order to better assess your health more comprehensively. For example, incidental findings on imaging or laboratory results that were performed today may be discovered, which do not require immediate medical care, but may impact your health in the future. If your symptoms worsen or persist, please return to the emergency department immediately for reassessment. Take all medications as prescribed. In queue for allowing me to participate in your health care, and I hope you feel better soon. Clinical Impressions Clinical Impression: Change of dressing Instructions Patient Instructions: Peripherally Inserted Central Catheter Print Language Print Language: Azerbaijani Discharge ED Provider: Jennifer Felix General Adult HPI General Stated complaint: side/back pain Time Seen by Provider: 12/26/24 12:08 History of Present Illness HPI narrative: 64-year-old male that is well-known to this emergency department presents requesting PICC line dressing change. She was recently admitted to this facility for cellulitis and concern for sepsis. He is currently on cefepime daily for treatment of his cellulitis. He just had follow-up with his primary care provider for follow-up of his recent hospitalization Related Data Home Medications ?Medication ?Instructions ?Recorded ?Confirmed insulin glargine 100 unit/mL (3 60 unit SQ BID 5 12/15/24 mL) subcutaneous pen (Lantus Solostar U-100 Insulin) apixaban 5 mg tablet (Eliquis) 5 mg PO BID 12/06/24 metolazone 2.5 mg tablet 5 mg PO DAILY 12/06/2412/15 potassium chloride 20 mEq 40 meq PO DAILY 12/07/2408/05 tablet,extended release(part/cryst) cefepime 2 gram solution for IV 12/15/24 12/15/24 injection Previous Rx's ?Medication ?Instructions ?Recorded insulin lispro 100 unit/mL See Protocol SQ ACHS 30 day s #1.2 08/01/24 subcutaneous solution (Humalog mL U-100 Insulin) metoprolol succinate 25 mg 25 mg PO DAILY 30 days #30 tabs 11/18/24 tablet,extended release 24 hr pregabalin 100 mg capsule 100 mg PO TID 30 days #90 ca ps 11/22/24 tirzepatide 2.5 mg/0.5 mL 2.5 mg (0.5 mL) SQ WEEKLY 30 days 11/22/24 subcutaneous pen injector #2.5 mL (Mounjaro) tizanidine 4 mg capsule 4 mg PO HSP PRN muscle spast icity 11/22/24 #30 caps tramadol 50 mg tablet 75 mg (1.5 x 50 mg) PO Q6H P RN 11/22/24 pain #180 tabs escitalopram oxalate 20 mg tablet 20 mg PO DAILY #90 t abs 11/23/24 (Lexapro) bumetanide 2 mg tablet 2 mg PO TID 30 days #0 tabs 12/08/24 Allergies Allergy/AdvReac Type Severity Reaction Status Date / Time sitagliptin (From Januvia) AdvReac Severe sore Verified 12/15/24 13:34 hydromorphone (From Dilaudid) AdvReac Vomiting Verified 12/15/24 13:34 morphine AdvReac Vomiting Verified 12/15/24 13:34 PFS PFS Disclaimer: The information contained in this section may have been updated after the patient was seen, as this information can be updated by other users. Medical History Morbid obesity with BMI of 50.0-59.9, adult Atrial fibrillation Peripheral arterial disease Hypertension Diabetes mellitus Cellulitis of left lower extremity Venous stasis ulcer of both lower extremities without varicose veins Volume overload Cellulitis Acute on chronic heart failure with preserved ejection fraction (HFpEF) LORI (obstructive sleep apnea) Surgical History History of amputation of right fourth toe History of amputation of left fifth toe Family History Other No significant family history Social History Smoking Status: Former smoker alcohol intake: never current occupational status: retired and disabled Travel in the last 8 weeks?: None Have you lived/traveled outside [place] in past 30 days?: No Contact w/someone who lives/traveled outside [place] past 30 days?: No Exposure to someone with infectious disease in past 14 days?: No Do you have a fever (greater than 100.4 F or 38 C)?: No Have you tested positive for COVID-19?: No Exposed to someone with COVID-19 in past 14 days?: No Do you have a sore throat?: No Do you have a cough?: No Do you have any weakness?: No Do you have any diarrhea?: No Are you experiencing any unusual bleeding?: No Do you have any muscle aches/pain?: No Do you have any abdominal pain?: No Are you experiencing loss of taste or smell?: No Other Medical History Have you received the Flu Vaccine for this season: No Have you received the Pneumonia Vaccine: No ROS Obtained: Yes All systems reviewed & no additional complaints except as documented Physical Exam Narrative Physical exam: General: Awake, aware, in no acute distress HEENT: Normocephalic, no evidence of trauma CV: RRR, no murmurs, rubs, or gallops Pulm: CTA bilaterally with no rhonchi, rales, wheezes ABD: Nontender, no swelling, guarding, or rebound tenderness Psych, appropriate mood and affect Musculoskeletal: Patient with dressings to bilateral lower extremities that appear fresh and recently changed General General appearance: alert Respiratory Respiratory exam: Present normal lung sounds bilaterally Cardiovascular Cardiovascular exam: Present regular rate Neurological Exam Neurological exam: Present alert Medical Decision Making Medical Records Screening: Per USPSTF and CDC recommendations, given the prevalence of disease in our region, it is our hospital?s policy to screen for HIV and viral Hepatitis for all patients aged 18 and over and those with ongoing risk factors. Madi Inquiry Pt receiving controlled substance: No Medical Decision Narrative: Initial impression of presenting illness: 64-year-old male presents emergency department requesting PICC line dressing change. Is well-known to this emergency department and was recently admitted to this facility for treatment of cellulitis and sepsis. He is currently receiving cefepime daily through his PICC. Just left his primary care provider's office for follow-up from his recent admission. Patient arrives hemodynamically stable, afebrile, without respiratory distress with vital signs interpreted by myself. Initial physical exam: Unremarkable for acute findings. Patient does have dressings to bilateral lower extremities which appear to be fresh newly placed. grossly unremarkable. Initial diagnostic plan: PICC line dressing change Disposition: Stressed the importance of patient keeping his PICC line clean and dry with sterile dressing changes. Advised him to continue taking all previously prescribed medications including his Bumex as well as his cefepime to help with swelling and infection control. Advised him to follow-up with his primary care provider for ongoing management of his symptoms and return to the emergency department any new or worsening symptoms patient is agreeable to plan of care. Critical Care Critical Care Time Critical Care Time: No
--- OUTSIDE RECORDS SUMMARY | 2024-12-26 12:11 | XMS_ITS | Encounter Summary ---
Author Organization [facility] [place] [address] Care Team Providers Care Bander And Cellophaner Helper Machine Name Role Phone Lincoln Hillman MD Primary Care Provider [phone] Juan Cantu MD Primary Care Provider [phone] Kym Frias RN Unavailable Unavailable Julee Giang LEAF STRIPPER Unavailable Unavailable Encounter Details Date Type Department Care Team (Late st Contact Info) Description 12/28/2017 Lab Requisition [facility] [address] [place] [address] Cullen Resendez, [address] [place] [id number] Atrial fibrillation (HCC) Social History Tobacco [...] - 11.0 x10(3)/mcL 12/28/2017 7:46 AM EDT [facility] RBC 5.17 4.30 - 5.90 x10(6)/mcL 12/28/2017 7:46 AM EDT [facility] Hgb 14.3 13.2 - 17.3 g/dL 12/28/2017 7:46 AM EDT [facility] Hct 44.3 39.0 - 55.0 % 12/28/2017 7:46 AM EDT [facility] MCV 85.7 81.0 - 101.0 fL 12/28/2017 7:46 AM EDT [facility] MCH 27.7 27.0 - 31.0 pg 12/28/2017 7:46 AM EDT [facility] MCHC 32.3(L) 33.0 - 36.0 g/dL 12/28/2017 7:46 AM EDT [facility] Platelet 245 150 - 400 x10(3)/mcL 12/28/2017 7:46 AM EDT [facility] MPV 9.8 7.4 - 10.4 fL 12/28/2017 7:46 AM EDT [facility] Neut Percent 58.2 % 12/28/2017 7:46 AM EDT [facility] Lymph Percent 31.9 % 12/28/2017 7:46 AM EDT [facility] Hubbard Percent 6.3 % 12/28/2017 7:46 AM EDT [facility] Eos Percent 2.9 % 12/28/2017 7:46 AM EDT [facility] Baso Percent 0.4 % 12/28/2017 7:46 AM EDT [facility] RDW 41.3 35.1 - 43.9 fL 12/28/2017 7:46 AM EDT [facility] NRBC Auto % 0.0 <=1.0 % 12/28/2017 7:46 AM EDT [facility] Imm Gran% 0.3 % 12/28/2017 7:46 AM EDT [facility] IMMGRAN# 0.0 <=0.0 x10(3)/mcL 12/28/2017 7:46 AM EDT [facility] Neut # 5.4 1.8 - 7.7 x10(3)/[facility] 12/28/2017 7:46 AM EDT [facility] Lymph # 3.0 1.0 - 4.8 x10(3)/[facility] 12/28/2017 7:46 AM EDT [facility] Hubbard # 0.6 0.0 - 0.8 x10(3)/[facility] 12/28/2017 7:46 AM EDT [facility] Eos# 0.3 0.0 - 0.7 x10(3)/[facility] 12/28/2017 7:46 AM EDT [facility] Baso # 0.0 0.0 - 0.2 x10(3)/[facility] 12/28/2017 7:46 AM EDT [facility] Blood VENOUS BLOOD / Unknown 12/28/2017 6:05 AM EDT 12/28/2017 7:05 AM EDT Cullen Resendez DO HEMATOLOGY ORDERABLES Final Resu lt [facility] [address] [place] [id number] * (ABNORMAL) BASIC METABOLIC PANEL (12/28/2017 6:05 AM EDT) Sodium 138 137 - 145 mmol/L 12/28/2017 7:57 AM EDT [facility] Potassium 3.8 3.5 - 5.1 mmol/L 12/28/2017 7:57 AM EDT [facility] Chloride 100 98 - 107 mmol/L 12/28/2017 7:57 AM EDT [facility] Total CO2 29 22 - 30 mmol/L 12/28/2017 7:57 AM EDT [facility] Anion Gap 9 7 - 16 mmol/L 12/28/2017 7:57 AM EDT [facility] Calcium 9.0 8.4 - 10.3 mg/dL 12/28/2017 7:57 AM EDT [facility] BUN 17 9 - 20 mg/dL 12/28/2017 7:57 AM EDT [facility] Creatinine 0.81 0.66 - 1.25 mg/dL 12/28/2017 7:57 AM EDT [facility] GFR Afr Am 115 >=60 mL/min/1.7 3 m2 12/28/2017 7:57 AM EDT [facility] GFR Non Afr Am 99 >=60 mL/min/1.7 3 m2 12/28/2017 7:57 AM EDT [facility] Comment: This estimated GFR was [...] - 99 mg/dL 12/28/2017 7:57 AM EDT [facility] Blood VENOUS BLOOD / Unknown 12/28/2017 6:05 AM EDT 12/28/2017 7:24 AM EDT Cullen Resendez DO CHEMISTRY ORDERABLES Final Resul t [facility] [address] [facility] [place] [id number] documented in this encounter Visit Diagnoses Diagnosis Atrial fibrillation (HCC) Atrial fibrillation documented in this encounter Care Teams Bander And Cellophaner Helper Machine Relationship Specialty Start Date End Date Lincoln Hillman MD [address] [facility] [address] [place] [address] PCP - General Family Medicine 03/25/18 08/26/18 Juan Cantu MD [address] [place] [address] [place] [address] PCP - General Internal Medicine 08/27/18 03/27/24 Frias, Kym A, castings trimmer Team 07/25/19 08/24/19 Julee Giang LCSW Care Transition Team 01/06/20 0 documented as of this encounter
--- OUTSIDE RECORDS SUMMARY | 2024-12-26 12:11 | XMS_ITS | Encounter Summary ---
Author Organization [facility] [place] [address] Care Team Providers Care Business Management Professor Name Role Phone Lincoln Hillman MD Primary Care Provider [phone] Juan Cantu MD Primary Care Provider [phone] Kym Frias RN Unavailable Unavailable Julee Giang ASSAYER Unavailable Unavailable Encounter Details Date Type Department Care Team (Late st Contact Info) Description 02/11/2018 Lab Requisition [facility] [address] [facility] [place] [id number] Cullen Resendez, [address] [place] [address] Cardiac arrhythmia Social History Tobacco [...] 182 <=200 mg/dL 02/11/2018 8:58 AM EDT [facility] Comment: < 200 Desirable 200 - 239 Borderline High >= 240 High Triglyceride 213(H) <=150 mg/dL 02/11/2018 8:58 AM EDT [facility] HDL 36(L) 40 - 60 mg/dL 02/11/2018 8:58 AM EDT [facility] LDL Calculated 103 mg/dL 02/11/2018 8:58 AM EDT [facility] Comment: Desireable LDL Cholesterol: <130 mg/dL Borderline High Risk LDL Chol: 130-159 mg/dL High Risk LDL Cholesterol: >=160 mg/dL Coronary Risk Factor 19.8 02/11/2018 8:58 AM EDT [facility] Comment: Coronary Risk Factor......Male....Female 1/2 Average...............29.2....30.6 Average...................20.1....22.5 2X Average................10.5....14.2 3X Average................ 4.3.... 9.1 Blood VENOUS BLOOD / Unknown 02/11/2018 7:23 AM EDT 02/11/2018 7:36 AM EDT Cullen Resendez DO CHEMISTRY ORDERABLES Final Resul t Performing Organization Address City/State/[facility] Co de Phone Number [facility] [address] [place] [address] documented in this encounter Visit Diagnoses Diagnosis Cardiac arrhythmia Cardiac dysrhythmia, unspecified documented in this encounter Care Teams Business Management Professor Relationship Specialty Start Date End Date Lincoln Hillman MD [address] [place] [address] PCP - General Family Medicine 03/25/18 08/26/18 Juan Cantu MD [address] [facility] [place] [address] PCP - General Internal Medicine 08/27/18 03/27/24 Kym Frias RNprocess stripper Team 07/25/19 08/24/19 Julee Giang LCSW Care Transition Team 01/06/20 0 documented as of this encounter
--- OUTSIDE RECORDS SUMMARY | 2024-12-26 12:11 | XMS_ITS | Clinical Summary ---
Author Organization [facility] Address [address] [place] [address] Phone Care Team Providers Care Printed Circuit Boards Beveler Name Role Phone Unavailable Primary Care Provider [...] cellulitis. Patient had been following in the [facility] wound clinic with Dr. Fischer, but [...] cuff is unreliable. He has some dizziness. Picc Nurse to place an art line. Septic shock 10/22/2023 Assessment & Plan (10/27/2023 7:24 PM EDT): Post IV fluids. Antibiotics. Very short-lived Levophed peripherally in the ICU. Septic shock resolved. Assessment & Plan (10/26/2023 1:59 PM EDT): Post IV fluids. Antibiotics. Very short-lived Levophed peripherally in the ICU. Septic shock resolved. Assessment & Plan (10/22/2023 5:50 PM EDT): Sepsis Evaluation: Jordan body weight: 84.5 kg (186 lb 4.6 [...] sepsis) RR>= 22 Resp: 16 GCS< 15 [place] Coma Scale Score: 15 SBP< 100 mmHg [...] Overview (05/19/2023): Patient was referred to the [facility] ED. I personally contacted the ED. [...] artery disease 07/08/2022 Overview (08/18/2022): Status post WELFARE MANAGER left anterior tibial artery and left popliteal artery. Steelworker Dr. Espinoza. Assessment & Plan (10/30/2023 9:20 [...] revascularization to the left lower extremity with WELFARE MANAGER to the left popliteal artery and anterior tibial artery religion of three-vessel runoff to the left foot [...] was consulted. He had PV angiography with WELFARE MANAGER to the left popliteal artery and anterior [...] revascularization to the left lower extremity with WELFARE MANAGER to the left popliteal artery and anterior tibial artery religion of three-vessel runoff to the left foot [...] p.o. twice daily for 30 days 3. [place] offloading with dressing change, walker, knee roller [...] was consulted. He had PV angiography with WELFARE MANAGER tot he left popliteal artery and anterior [...] on Friday 07/28. CBC, CMP every Thursday [place] 5-325 1-2 tab Q6 PRN pain Continue [...] will follow-up outpatient Orthopedic surgery follow-up outpatient [place] for pain management until follow-up with Dr. [...] (07/04/2022): Added automatically from request for surgery [id number] Wound healing, delayed 06/30/2022 Overview (07/07/2022): Added automatically from request for surgery [id number] MDD (major depressive disord er), recurrent episode, [...] fibrillation 07/19/2020 Overview (08/18/2022): Chronic atrial fibrillation [id number] score of 3 Assessment & Plan (10/27/2023 [...] able to void without issue. Echo from [place] in 2018 with LV EF 50-55%, tough [...] (07/02/2022): Added automatically from request for surgery [id number] Venous stasis ulcer of right lower extremity [...] completed on this admission. There is a [facility] notation of Osteomyelitis of the left fibula [...] an outpatient. This can be done at [facility] outpatient therapy, or an F. It [...] to his appointment with Dr. Day. 3. [facility] orders: Will need dressing changes QOD [...] his pain, we will put him on JINGLE WRITER with continuous rate, but he will need [...] was stopped when [facility] a few months ago, I suspect due to expense. His sugars have not been well controlled on the sliding scale over there. For the time being we'll put him on sliding scale as well as carbohydrate coverage. Since I expect to return to the penitentiary, I don't think there is any reason [...] eliquis - continue [facility]g [facility] Assessment & Plan (04/02/2018 6:18 PM EST): [...] Left Foot Abcess and Intra-operative Cultures; Surgeon: Yfian Baron DO; Location: [facility]; Service: Orthopedics IR PICC INSERTION [...] from your doctor or pharmacy? Never 10/26/2023 [facility] Utilities Answer Date Recorded In the past 12 months has th e [employer], gas, oil, or water [employer] threatened to shut off services in your [...] week 10/26/2023 How often do you attend [facility] or mu-ism services? Never 10/26/2023 Do you belong to any clubs o r organizations such as mormon groups, unions, fraternal or athletic groups, or [...] Date Recorded PHQ-2 Total Score 2 10/26/2023 [facility] of Occupat ional Health - Occupational Stress [...] place to sleep or slept in a senior care (including now)? No 07/16/2022 Housing Stability Vital Sign Answer Te e Recorded In the last 12 months, was t here a time when you were not able to pay the mortgage or rent on time? No 10/22/2023 In the past 12 months, how m any times have you moved where you were living? 1 10/22/2023 At any time in the past 12 m [facility], were you homeless or living in a senior care (including now)? No 10/22/2023 Education Answer Date [...] 03/04/2023 03/03/2022 Kidney Health: uACR 08/23/2023 08/22/2022 Kidney Health: eGFR 11/08/2024 11/09/2023, 11/02/2023, 11/01/2023, Additional history exists Hemoglobin A1c 11/24/2024 05/27/2024, 03/13, 10/23/2023, Additional history exists COVID-19 Vaccine ( - season) 2024 Influenza Vaccine (#1) 2024 2, 01/02/2020, 02/11/2018 [...] this topic Medical Devices Implanted Type Area Driver/Refuse Collector Device Identifier Shelf Expiration Date Model / Serial / Lot Floseal Hemostatic Matrix 10ml - [id number] Implanted:Qty: 6 on 03/29/2018 by Clark Moulton MD at [facility] N/A: Spine Thoracic MOFFETT 07/28/2019 [id number] / / [id number] Screw Multi Axial 5.5 X 30 Ti - [id number] Implanted:Qty: 4 on 03/29/2018 by Clark Moulton MD at [facility]/A: Spine Thoracic [employer] [id number] / / Screw Multi Axial 5.5 X 35 Ti - [id number] Implanted:Qty: 4 on 03/29/2018 by Clark Moulton MD at [facility] N/A: Spine Thoracic [employer] [id number] / / Screw Multi Axial 5.5 X 40 Ti - [id number] Implanted:Qty: 8 on 03/29/2018 by Clark Moulton MD at [facility]: Spine Thoracic [employer] [id number] / / Matrix Dural Regeneration 1x3 - [id number] Implanted:Qty: 1 on 03/29/2018 by Clark Moulton MD at [facility] N/A: Spine Thoracic [employer] 10/10/2020 [id number] / / [id number] John Matrix 5cm - [id number] Implanted:Qty: 1 on 03/29/2018 by Clark Moulton MD at [facility] 07/05/2020 [id number] / / Procedures Procedure Name Priority Date/Time [...] BASIC METABOLIC PANEL (11/09/2023 7:29 AM EDT) [facility] Sodium 136 135 - 145 mmol/L 11/09/2023 8:22 AM EDT [facility] Potassium 3.9 3.8 - 4.9 mmol/L 11/09/2023 8:22 AM EDT [facility] Chloride 100 98 - 107 mmol/L 11/09/2023 8:22 AM EDT [facility] Total CO2 33(H) 21 - 29 mmol/L 11/09/2023 8:22 AM EDT [facility] Anion Gap 3(L) 7 - 16 mmol/L 11/09/2023 8:22 AM EDT [facility] Calcium 9.1 8.4 - 10.2 mg/dL 11/09/2023 8:22 AM EDT [facility] BUN 17 9 - 20 mg/dL 11/09/2023 8:22 AM EDT [facility] Creatinine 0.70 0.52 - 1.25 mg/dL 11/09/2023 8:22 AM EDT [facility] Glucose Lvl 231(H) 70 - 140 mg/dL 11/09/2023 8:22 AM EDT [facility] eGFR (CKD-EPIcr 2020) 104 >=60 mL/min/1.7 3 m2 11/09/2023 8:22 AM EDT [facility] Comment:Estimated GFR was ca lculated using the CKD-EPIcr (2020) equation refit without race. The equation is recommended by the National Kidney Foundation - [employer] of Nephrology Task Force. Blood VENOUS BLOOD / Unknown 11/09/2023 7:29 AM EDT 11/09/2023 7:30 AM EDT Aixa Aguilera MD CHEMISTRY ORDERABLES Final Res ult Performing Organization Address [facility] Co de Phone Number [facility] [address] [place] [address] * (ABNORMAL) HEMOGLOBIN A1C (10/23/2023 4:03 AM EDT) Hgb A1C 9.2(H) <=5.6 % 10/23/2023 12:41 PM EDT [facility] Comment:Indicative of diabet es Est. Avg Glucose 217 mg/dL 10/23/2023 12:41 PM EDT [facility] Blood VENOUS BLOOD / Unknown Venipuncture / Unknown 10/23/2023 4:03 AM EDT 10/23/2023 4:08 AM EDT Rafael Lisa MD CHEMISTRY ORDERABLES Final Res ult Performing Organization Address [facility] Co de Phone Number [facility] [address] [place] [address] * MICROALBUMIN/CREATININE RATIO URINE (08/22/2022) Pathologist [place] [...] OFFICE Calcium 9.10 8.70 - 10.70 MG/DL [facility] OFFICE Urine URINE SPECIMEN COLLECTION / Unknown 08/22/2022 Juan Cantu MD URINE ORDERABLES Final Re sult Performing Organization Address [facility]/ZIP Co de Phone Number [facility] OFFICE * (ABNORMAL) LIPID SCREEN (07/14/2022 5:15 AM EDT) Cholesterol 163 <=200 mg/dL 07/14/2022 5:54 AM EDT [facility] Comment: < 200 Desirable 200 - 239 Borderline High >= 240 High Triglyceride 155(H) <=150 mg/dL 07/14/2022 5:54 AM EDT [facility] HDL 36(L) >=50 mg/dL 07/14/2022 5:54 AM EDT [facility] LDL Calculated 96 mg/dL 07/14/2022 5:54 AM EDT [facility] Comment: Desireable LDL Cholesterol: <130 mg/dL Borderline High Risk LDL Chol: 130-159 mg/dL High Risk LDL Cholesterol: >=160 mg/dL Blood VENOUS BLOOD / Unknown Venipuncture / Unknown 07/14/2022 5:15 AM EDT 07/14/2022 5:26 AM EDT Olga Lovelace NP CHEMISTRY ORDERABLES Final Res ult Performing Organization Address City/[facility]/ZIP Co de Phone Number [facility] [address] [place] [address] from Last 3 Months or Most Recently Relevant to Health Maintenance Insurance [facility] MEDICARE ADVANTAGE PPO [id number] Advance Directives For more information, please contact: [phone] * Full Code (Latest Code Status on [...]
--- OUTSIDE RECORDS SUMMARY | 2024-12-26 12:11 | XMS_ITS | Encounter Summary ---
Author Organization [facility] [place] [address] Care Team Providers Care Acid Tester Name Role Phone Lincoln Hillman MD Primary Care Provider [phone] Juan Cantu MD Primary Care Provider [phone] Kym Frias RN Unavailable Unavailable Julee Giang PROVIDER ENGAGEMENT EXECUTIVE Unavailable Unavailable Encounter Details Date Type Department Care Team (Late st Contact Info) Description 01/11/2018 Lab Requisition [facility] [address] [place] [address] Cullen Resendez, [address] [place] [address] [id number] Type 2 diabetes mellitus without complications (HCC) [...] CBC WITH DIFF (01/11/2018 5:31 AM EDT) [facility] WBC 10.9 4.5 - 11.0 x10(3)/mcL 01/11/2018 6:16 AM EDT [facility] RBC 5.34 4.30 - 5.90 x10(6)/mcL 01/11/2018 6:16 AM EDT [facility] Hgb 14.7 13.2 - 17.3 g/dL 01/11/2018 6:16 AM EDT [facility] Hct 45.9 39.0 - 55.0 % 01/11/2018 6:16 AM EDT [facility] MCV 86.0 81.0 - 101.0 fL 01/11/2018 6:16 AM EDT [facility] MCH 27.5 27.0 - 31.0 pg 01/11/2018 6:16 AM EDT [facility] MCHC 32.0(L) 33.0 - 36.0 g/dL 01/11/2018 6:16 AM EDT [facility] Platelet 284 150 - 400 x10(3)/mcL 01/11/2018 6:16 AM EDT [facility] MPV 9.7 7.4 - 10.4 fL 01/11/2018 6:16 AM EDT [facility] Neut Percent 61.8 % 01/11/2018 6:16 AM EDT [facility] Lymph Percent 28.6 % 01/11/2018 6:16 AM EDT [facility] Bibb Percent 6.2 % 01/11/2018 6:16 AM EDT [facility] Eos Percent 2.4 % 01/11/2018 6:16 AM EDT [facility] Baso Percent 0.5 % 01/11/2018 6:16 AM EDT [facility] RDW 40.7 35.1 - 43.9 fL 01/11/2018 6:16 AM EDT [facility] NRBC Auto % 0.0 <=1.0 % 01/11/2018 6:16 AM EDT [facility] Imm Gran% 0.5 % 01/11/2018 6:16 AM EDT [facility] IMMGRAN# 0.1(H) <=0.0 x10(3)/[facility] 01/11/2018 6:16 AM EDT [facility] Neut # 6.7 1.8 - 7.7 x10(3)/[facility] 01/11/2018 6:16 AM EDT [facility] Lymph # 3.1 1.0 - 4.8 x10(3)/[facility] 01/11/2018 6:16 AM EDT [facility] Bibb # 0.7 0.0 - 0.8 x10(3)/[facility] 01/11/2018 6:16 AM EDT [facility] Eos# 0.3 0.0 - 0.7 x10(3)/[facility] 01/11/2018 6:16 AM EDT [facility] Baso # 0.1 0.0 - 0.2 x10(3)/[facility] 01/11/2018 6:16 AM EDT [facility] Blood VENOUS BLOOD / Unknown 01/11/2018 5:31 AM EDT 01/11/2018 5:56 AM EDT us Cullen Resendez DO HEMATOLOGY ORDERABLES Final Resu lt [facility] [address] [place] [phone] * (ABNORMAL) BASIC METABOLIC PANEL (01/11/2018 5:31 AM EDT) Sodium 138 137 - 145 mmol/L 01/11/2018 6:48 AM EDT [facility] Potassium 4.0 3.5 - 5.1 mmol/L 01/11/2018 6:48 AM EDT [facility] Chloride 100 98 - 107 mmol/L 01/11/2018 6:48 AM EDT [facility] Total CO2 34(H) 22 - 30 mmol/L 01/11/2018 6:48 AM EDT [facility] Anion Gap 4(L) 7 - 16 mmol/L 01/11/2018 6:48 AM EDT [facility] Calcium 8.9 8.4 - 10.3 mg/dL 01/11/2018 6:48 AM EDT [facility] BUN 20 9 - 20 mg/dL 01/11/2018 6:48 AM EDT [facility] Creatinine 0.82 0.66 - 1.25 mg/dL 01/11/2018 6:48 AM EDT [facility] GFR Afr Am 114 >=60 mL/min/1.7 3 m2 01/11/2018 6:48 AM EDT [facility] GFR Non Afr Am 99 >=60 mL/min/1.7 3 m2 01/11/2018 6:48 AM EDT [facility] Comment: This estimated GFR was calculated [...] - 99 mg/dL 01/11/2018 6:48 AM EDT [facility] Blood VENOUS BLOOD / Unknown 01/11/2018 5:31 AM EDT 01/11/2018 5:57 AM EDT Cullen Resendez DO CHEMISTRY ORDERABLES Final Resul t [facility] [address] [facility] [place] [id number] documented in this encounter Visit Diagnoses Diagnosis Type 2 diabetes mellitus without complications (HCC) Type II or unspecified type diabetes mellitus without mention of complication, not stated as uncontrolled documented in this encounter Care Teams Acid Tester Relationship Specialty Start Date End Date Lincoln Hillman MD [address] [place] [address] PCP - General Family Medicine 03/25/18 08/26/18 Juan Cantu MD [address] [place], [place] [address] [address] PCP - General Internal Medicine 08/27/18 03/27/24 Kym Frias RNdrupal web developer Team 07/25/19 08/24/19 Julee Giang LCSW Care Transition Team 01/06/20 0 documented as of this encounter
--- OUTSIDE RECORDS SUMMARY | 2024-12-26 12:11 | XMS_ITS | Clinical Summary ---
Author Organization Healthcare Address [address] [place] [address] Care Team Providers Care Reflexologist Name Role Phone Unavailable Primary Care Provider Unavailabl e Encounters Date Type Department Care Team Description 10/05/2024 - 10/06/2024 12:50 AM EDT Emergency [facility] Emergency Department [address] [place] [address] Discharge Disposition: ED Dismiss - [...]
--- OUTSIDE RECORDS SUMMARY | 2024-12-26 12:11 | XMS_ITS | Encounter Summary ---
Author Organization [facility] [place] [address] Care Team Providers Care Gallery Or Museum Technician Name Role Phone Lincoln Hillman MD Primary Care Provider [phone] Juan Cantu MD Primary Care Provider [phone] Kym Frias RN Unavailable Unavailable Julee Giang FLUXER Unavailable Unavailable Encounter Details Date Type Department Care Team (Late st Contact Info) Description 02/08/2018 Lab Requisition [facility] [address] [place] [address] Cullen Resendez, [address] [place] [address] [id number] Heart failure (HCC) Social History Tobacco Use [...] - 11.0 x10(3)/mcL 02/08/2018 6:37 AM EDT [facility] RBC 5.06 4.30 - 5.90 x10(6)/mcL 02/08/2018 6:37 AM EDT [facility] Hgb 13.9 13.2 - 17.3 g/dL 02/08/2018 6:37 AM EDT [facility] Hct 43.2 39.0 - 55.0 % 02/08/2018 6:37 AM EDT [facility] MCV 85.4 81.0 - 101.0 fL 02/08/2018 6:37 AM EDT [facility] MCH 27.5 27.0 - 31.0 pg 02/08/2018 6:37 AM EDT [facility] MCHC 32.2(L) 33.0 - 36.0 g/dL 02/08/2018 6:37 AM EDT [facility] Platelet 260 150 - 400 x10(3)/mcL 02/08/2018 6:37 AM EDT [facility] MPV 9.8 7.4 - 10.4 fL 02/08/2018 6:37 AM EDT [facility] Neut Percent 57.4 % 02/08/2018 6:37 AM EDT [facility] Lymph Percent 33.2 % 02/08/2018 6:37 AM EDT [facility] [place] Percent 5.9 % 02/08/2018 6:37 AM EDT [facility] Eos Percent 2.6 % 02/08/2018 6:37 AM EDT [facility] Baso Percent 0.4 % 02/08/2018 6:37 AM EDT [facility] RDW 40.1 35.1 - 43.9 fL 02/08/2018 6:37 AM EDT [facility] NRBC Auto % 0.0 <=1.0 % 02/08/2018 6:37 AM EDT [facility] Imm Gran% 0.5 % 02/08/2018 6:37 AM EDT [facility] IMMGRAN# 0.0 <=0.0 x10(3)/mcL 02/08/2018 6:37 AM EDT [facility] Neut # 4.2 1.8 - 7.7 x10(3)/[facility] 02/08/2018 6:37 AM EDT [facility] Lymph # 2.4 1.0 - 4.8 x10(3)/[facility] 02/08/2018 6:37 AM EDT [facility] [place] # 0.4 0.0 - 0.8 x10(3)/[facility] 02/08/2018 6:37 AM EDT [facility] Eos# 0.2 0.0 - 0.7 x10(3)/[facility] 02/08/2018 6:37 AM EDT [facility] Baso # 0.0 0.0 - 0.2 x10(3)/[facility] 02/08/2018 6:37 AM EDT [facility] Blood VENOUS BLOOD / Unknown Venipuncture / Unknown 02/08/2018 6:07 AM EDT 02/08/2018 6:26 AM EDT us Cullen Resendez DO HEMATOLOGY ORDERABLES Final Resu lt [facility] [address] [place] [address] * (ABNORMAL) BASIC METABOLIC PANEL (02/08/2018 6:07 AM EDT) Sodium 140 137 - 145 mmol/L 02/08/2018 7:09 AM EDT [facility] Potassium 4.2 3.5 - 5.1 mmol/L 02/08/2018 7:09 AM EDT [facility] Chloride 99 98 - 107 mmol/L 02/08/2018 7:09 AM EDT [facility] Total CO2 34(H) 22 - 30 mmol/L 02/08/2018 7:09 AM EDT [facility] Anion Gap 7 7 - 16 mmol/L 02/08/2018 7:09 AM EDT [facility] Calcium 9.5 8.4 - 10.3 mg/dL 02/08/2018 7:09 AM EDT [facility] BUN 13 9 - 20 mg/dL 02/08/2018 7:09 AM EDT [facility] Creatinine 0.54(L) 0.66 - 1.25 mg/dL 02/08/2018 7:09 AM EDT [facility] GFR Afr Am 136 >=60 mL/min/1.7 3 m2 02/08/2018 7:09 AM EDT [facility] GFR Non Afr Am 117 >=60 mL/min/1.7 3 m2 02/08/2018 7:09 AM EDT [facility] Comment: This estimated GFR was [...] - 99 mg/dL 02/08/2018 7:09 AM EDT [facility] Blood VENOUS BLOOD / Unknown 02/08/2018 6:07 AM EDT 02/08/2018 6:27 AM EDT Cullen Resendez DO CHEMISTRY ORDERABLES Final Resul t [facility] [address] [facility] [place] [id number] documented in this encounter Visit Diagnoses Diagnosis Heart failure (HCC) Heart failure, unspecified documented in this encounter Care Teams Gallery Or Museum Technician Relationship Specialty Start Date End Date Lnicoln Hillman MD [address] [place] [address] PCP - General Family Medicine 03/25/18 08/26/18 Juan Cantu MD [address] [facility] [place] [address] PCP - General Internal Medicine 08/27/18 03/27/24 Kym Frias, control area operator Team 07/25/19 08/24/19 Julee Giang LCSW Care Transition Team 01/06/20 0 documented as of this encounter
--- OUTSIDE RECORDS SUMMARY | 2024-12-26 12:11 | XMS_ITS | Encounter Summary ---
Author Organization [facility] [place] [address] Care Team Providers Care Client Services Account Manager Name Role Phone Juan Cantu MD Primary Care Provider [phone] Encounter Details Date Type Department Care Team (Late st Contact Info) Description 11/09/2023 Lab Requisition [facility] [address] [place] [address] Aixa Aguilera MD [address] [place] [address] [place] [address] Hypertension secondary to endocrine disorders; Type [...] from your doctor or pharmacy? Never 10/26/2023 [facility] Utilities Answer Date Recorded In the [...] often do you attend chur ch or advent services? Never 10/26/2023 Do you belong to any clubs o r organizations such as gnosticist groups, unions, fraternal or athletic groups, or [...] Date Recorded PHQ-2 Total Score 2 10/26/2023 [facility] - Occupational Stress Questionnaire Answer Date [...] place to sleep or slept in a group home (including now)? No 07/16/2022 Housing Stability Vital Sign Answer Te e Recorded In the last 12 months, was t here a time when you were not able to pay the mortgage or rent on time? No 10/22/2023 In the past 12 months, how m any times have you moved where you were living? 1 10/22/2023 At any time in the past 12 m [facility], were you homeless or living in a group home (including now)? No 10/22/2023 Education Answer Date [...] AM EDT) WBC 6.0 4.5 - 11.0 x10(3)/[facility] 11/09/2023 8:21 AM EDT [facility] RBC 4.42 4.30 - 5.90 x10(6)/mcL 11/09/2023 8:21 AM EDT [facility] Hgb 10.7(L) 13.2 - 17.3 g/dL 11/09/2023 8:21 AM EDT [facility] Hct 36.0(L) 39.0 - 55.0 % 11/09/2023 8:21 AM EDT [facility] MCV 81.4 81.0 - 101.0 fL 11/09/2023 8:21 AM EDT [facility] MCH 24.2(L) 27.0 - 31.0 pg 11/09/2023 8:21 AM EDT [facility] MCHC 29.7(L) 33.0 - 36.0 g/dL 11/09/2023 8:21 AM EDT [facility] Platelet 302 150 - 400 x10(3)/[facility] 11/09/2023 8:21 AM EDT [facility] MPV 9.9 7.4 - 10.4 fL 11/09/2023 8:21 AM EDT [facility] Neut Percent 50.9 % 11/09/2023 8:21 AM EDT [facility] Lymph Percent 33.9 % 11/09/2023 8:21 AM EDT [facility] [place] Percent 9.9 % 11/09/2023 8:21 AM EDT [facility] Eos Percent 4.0 % 11/09/2023 8:21 AM EDT [facility] Baso Percent 0.8 % 11/09/2023 8:21 AM EDT [facility] RDW 48.1(H) 35.1 - 43.9 fL 11/09/2023 8:21 AM EDT [facility] NRBC Auto % 0.0 <=1.0 % 11/09/2023 8:21 AM EDT [facility] Imm Gran% 0.5 % 11/09/2023 8:21 AM EDT [facility] IMMGRAN# 0.0 <=0.0 x10(3)/[facility] 11/09/2023 8:21 AM EDT [facility] Neut # 3.0 1.8 - 7.7 x10(3)/[facility] 11/09/2023 8:21 AM EDT [facility] Lymph # 2.0 1.0 - 4.8 x10(3)/[facility] 11/09/2023 8:21 AM EDT [facility] [place] # 0.6 0.0 - 0.8 x10(3)/[facility] 11/09/2023 8:21 AM EDT [facility] Eos# 0.2 0.0 - 0.7 x10(3)/[facility] 11/09/2023 8:21 AM EDT [facility] Baso # 0.1 0.0 - 0.2 x10(3)/[facility] 11/09/2023 8:21 AM EDT [facility] Blood VENOUS BLOOD / Unknown 11/09/2023 7:29 AM EDT 11/09/2023 7:30 AM EDT us Aixa Aguilera MD HEMATOLOGY ORDERABLES Final Re sult [facility] [address] [place] [address] * (ABNORMAL) BASIC METABOLIC PANEL (11/09/2023 7:29 AM EDT) Sodium 136 135 - 145 mmol/L 11/09/2023 8:22 AM EDT [facility] Potassium 3.9 3.8 - 4.9 mmol/L 11/09/2023 8:22 AM EDT [facility] Chloride 100 98 - 107 mmol/L 11/09/2023 8:22 AM EDT [facility] Total CO2 33(H) 21 - 29 mmol/L 11/09/2023 8:22 AM EDT [facility] Anion Gap 3(L) 7 - 16 mmol/L 11/09/2023 8:22 AM EDT [facility] Calcium 9.1 8.4 - 10.2 mg/dL 11/09/2023 8:22 AM EDT [facility] BUN 17 9 - 20 mg/dL 11/09/2023 8:22 AM EDT [facility] Creatinine 0.70 0.52 - 1.25 mg/dL 11/09/2023 8:22 AM EDT [facility] Glucose Lvl 231(H) 70 - 140 mg/dL 11/09/2023 8:22 AM EDT [facility] eGFR (CKD-EPIcr 2020) 104 >=60 mL/min/1.7 3 m2 11/09/2023 8:22 AM EDT [facility] Comment:Estimated GFR was ca lculated using the CKD-EPIcr (2020) equation refit without race. The equation is recommended by the National Kid[employer] - [place] [employer] of Nephrology Task Force. 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
--- OUTSIDE RECORDS SUMMARY | 2024-12-26 12:11 | XMS_ITS | Encounter Summary ---
Author Organization [facility] [place] [address] Care Team Providers Care Security Shift Supervisor Name Role Phone Lincoln Hillman MD Primary Care Provider [phone] Juan Cantu MD Primary Care Provider [phone] Kym Frias RN Unavailable Unavailable Julee Giang ORGANIZATIONAL DEVELOPMENT DIRECTOR Unavailable Unavailable Encounter Details Date Type Department Care Team (Late st Contact Info) Description 01/07/2018 Lab Requisition [facility] [address] [place], [place] [id number] Cullen Resendez, [address] [place] [address] Type 2 diabetes mellitus without [...] AM EDT) WBC 13.1(H) 4.5 - 11.0 x10(3)/[facility] 01/07/2018 8:48 AM EDT [facility] RBC 5.24 4.30 - 5.90 x10(6)/[facility] 01/07/2018 8:48 AM EDT [facility] Hgb 14.8 13.2 - 17.3 g/dL 01/07/2018 8:48 AM EDT [facility] Hct 44.6 39.0 - 55.0 % 01/07/2018 8:48 AM EDT [facility] MCV 85.1 81.0 - 101.0 fL 01/07/2018 8:48 AM EDT [facility] MCH 28.2 27.0 - 31.0 pg 01/07/2018 8:48 AM EDT [facility] MCHC 33.2 33.0 - 36.0 g/dL 01/07/2018 8:48 AM EDT [facility] Platelet 262 150 - 400 x10(3)/[facility] 01/07/2018 8:48 AM EDT [facility] MPV 10.6(H) 7.4 - 10.4 fL 01/07/2018 8:48 AM EDT [facility] Neut Percent 70.3 % 01/07/2018 8:48 AM EDT [facility] Lymph Percent 20.8 % 01/07/2018 8:48 AM EDT [facility] [place] Percent 6.2 % 01/07/2018 8:48 AM EDT [facility] Eos Percent 2.5 % 01/07/2018 8:48 AM EDT [facility] RDW 42.1 35.1 - 43.9 fL 01/07/2018 8:48 AM EDT [facility] Neut # 9.2(H) 1.8 - 7.7 x10(3)/[facility] 01/07/2018 8:48 AM EDT [facility] Lymph # 2.7 1.0 - 4.8 x10(3)/[facility] 01/07/2018 8:48 AM EDT [facility] [place] # 0.8 0.0 - 0.8 x10(3)/mcL 01/07/2018 8:48 AM EDT [facility] Eos# 0.3 0.0 - 0.7 x10(3)/[facility] 01/07/2018 8:48 AM EDT [facility] Baso # 0.0 0.0 - 0.2 x10(3)/[facility] 01/07/2018 8:48 AM EDT [facility] Blood VENOUS BLOOD / Unknown 01/07/2018 6:31 AM EDT 01/07/2018 7:25 AM EDT us Cullen Resendez DO HEMATOLOGY ORDERABLES Final Resu lt [facility] [address] [place], [place] [id number] * (ABNORMAL) BASIC METABOLIC PANEL (01/07/2018 6:31 AM EDT) Sodium 137 137 - 145 mmol/L 01/07/2018 9:42 AM EDT [facility] Potassium 4.1 3.5 - 5.1 mmol/L 01/07/2018 9:42 AM EDT [facility] Chloride 100 98 - 107 mmol/L 01/07/2018 9:42 AM EDT [facility] Total CO2 28 22 - 30 mmol/L 01/07/2018 9:42 AM EDT [facility] Anion Gap 9 7 - 16 mmol/L 01/07/2018 9:42 AM EDT [facility] Calcium 9.1 8.4 - 10.3 mg/dL 01/07/2018 9:42 AM EDT [facility] BUN 18 9 - 20 mg/dL 01/07/2018 9:42 AM EDT [facility] Creatinine 0.70 0.66 - 1.25 mg/dL 01/07/2018 9:42 AM EDT [facility] GFR Afr Am 122 >=60 mL/min/1.7 3 m2 01/07/2018 9:42 AM EDT [facility] GFR Non Afr Am 105 >=60 mL/min/1.7 3 m2 01/07/2018 9:42 AM EDT [facility] Comment: This estimated GFR was calculated [...] - 99 mg/dL 01/07/2018 9:42 AM EDT [facility] Blood VENOUS BLOOD / Unknown 01/07/2018 6:31 AM EDT 01/07/2018 7:25 AM EDT us Cullen Resendez DO CHEMISTRY ORDERABLES Final Resul t [facility] [address] [place] [address] documented in this encounter Visit Diagnoses Diagnosis Type 2 diabetes mellitus without complications (HCC) Type II or unspecified type diabetes mellitus without mention of complication, not stated as uncontrolled documented in this encounter Care Teams Security Shift Supervisor Relationship Specialty Start Date End Date Lincoln Hillman MD [address] [facility] [address] [place] [address] [place] [address] PCP - General Family Medicine 03/25/18 08/26/18 Juan Cantu MD [address] [place] [address] [place] [address] PCP - General Internal Medicine 08/27/18 03/27/24 Kym Frias RNcatering service manager Team 07/25/19 08/24/19 Julee Giang LCSW Care Transition Team 01/06/20 0 documented as of this encounter
--- OUTSIDE RECORDS SUMMARY | 2024-12-26 12:11 | XMS_ITS | Clinical Summary ---
Author Organization [facility] Address [address] [place] [address] Care Team Providers Care Film Reproducer Name Role Phone Saulo Martinez Mukul Primary [...] = 0.6 oz pur e alcohol) rare [facility] Utilities Answer Date Recorded In the past 12 months has e [employer], gas, oil, or water [employer] threatened to shut off services in your [...] and heating? Not hard at all 08/19/2024 [facility] [place] [facility] - Occupational Stress [...] GED or equivalent No 08/19/2024 Preferred Language Malagasy 08/19/2024 PHQ-2 Answer Date Recorded Patient Health [...] (2 of 2 - PCV) 07/21/2020 07/22/2019 ANNUAL WELLNESS VISIT 06/03/2024 03/03/2022 HEPATITIS C SCREENING 06/03/2024 COVID-19 Vaccine (1 - 2023-2 5 season) 2024 HEMOGLOBIN A1C 12/31/2024 06/30/2024, 05/14, 03/27/2024, Additional [...] - 5.60 % 06/30/2024 4:36 AM EDT [facility] Blood Venipuncture / Unknown 06/30/2024 3:12 AM EDT 06/30/2024 4:21 AM EDT Narrative [facility] - 06/30/2024 4:36 AM EDT Hemoglobin A1C Ranges: Increased Risk for Diabetes 5.7% to 6.4% Diabetes >= 6.5% Diabetic Goal < 7.0% Horacio Quan MD LAB BLOOD ORDERABLES Final Res ult [facility]
[address] [place] [address], * (ABNORMAL) Lipid Panel (05/26/2024 3:15 PM EST) Total Cholesterol 155 0 - 200 mg/dL 05/26/2024 4:35 PM EST [facility] Triglycerides 165(H) 0 - 150 mg/dL 05/26/2024 4:35 PM EST [facility] HDL Cholesterol 53 40 - 60 mg/dL 05/26/2024 4:35 PM EST [facility] LDL Cholesterol 74 0 - 100 mg/dL 05/26/2024 4:35 PM EST [facility] VLDL Cholesterol 28 5 - 40 mg/dL 05/26/2024 4:35 PM EST [facility] LDL/HDL Ratio 1.30 05/26/2024 4:35 PM EST [facility] Blood Line / Unknown 05/26/2024 3: 15 PM EST 05/26/2024 3:19 PM EST Narrative [facility] - 05/26/2024 4:35 PM [...] APRN LAB BLOOD ORDERABLES Fin al Result [facility]
[address] [place] [address], from Last 3 Months or Most Recently [...] or is breathing): Full Support Care Teams Film Reproducer Relationship Specialty Start Date End Date Saulo Martinez DO [address] [place] [address] PCP - General Internal Medicine 08/23/24
--- NOTE | 2024-12-26 13:10 | PC.NURSE ---
pt sister called and reported that she felt that he needed a full workup because he hasnt been sleeping much at night and has had trouble urinating at times
--- NOTE | 2024-12-26 13:15 | PC.NURSE ---
VAN Conner at bedside reassessing the patient. He stated he wants to leave and doesnt want any work up at this time
--- NOTE | 2024-12-26 13:21 | PC.NURSE ---
called pt sister again and informed her that the patient stated he didnt want a workup for any of the complaints and denies any hallucinations or difficulty urinating. she stated she would be on her way to get him
[2024-12-26 13:23] VITALS: BP 151/87; PULSE 75; RESP 17; TEMP 37; O2SAT 98
== END 2024-12-26 13:30 | disposition home or self-care (01) ==
PROVIDERS: Emergency Provider Student in an Organized Health Care Education/Training Program; PCP Internal Medicine
DX: Z48.00 Encounter for change or removal of nonsurgical wound dressing (principal)
CPT/HCPCS: 99282

== ENCOUNTER 2024-12-30 07:38 | Emergency (ER) | payer MEDICARE, SELFPAY ==
--- OUTSIDE RECORDS SUMMARY | 2024-12-28 14:13 | XMS_ITS | Encounter Summary ---
Author Organization [facility] Address [address] [place] [address] Care Team Providers Care Line Maintainer Name Role Phone Saulo Martinez Primary Care Provider + Reason for Visit * Reason Comments Numbness Wound Check Encounter Details Date Type Department Care Team (Late st Contact Info) Description 12/28/2024 2:13 PM EDT - 12/28/2024 3:18 PM EDT Emergency [facility] [address] [place] [address] Chavo Santana MD [address] [facility] [place] [address] Discharge Disposition: Left Against Medical Advice Social History Tobacco Use Types Packs/Day Years Used Date Smoking Tobacco: Never Passive Smoke Exposure: Never Smokeless Tobacco: Never Alcohol Use Standard Drinks/Week Comments Not Currently 0 (1 standard drink = 0.6 oz pur e alcohol) rare [facility] Utilities Answer Date Recorded In the past 12 months has [facility] [employer], oil, or water [employer] threatened to shut off services in your [...] and heating? Not hard at all 08/19/2024 [facility] - Occupational Stress Questionnaire Answer Date [...] Feels Unsafe at Home or Work/School no 12/28/2024 Feels Threatened by Someone no 12/12 Does Anyone Try to Keep You From Having Contact with Others or Doing Things Outside Your Home? no 12/28/2024 Physical Signs of Abuse Present no 12/28/2024 Housing Stability Answer Date Recorded Current Living [...] GED or equivalent No 08/19/2024 Preferred Language Kuwaiti 08/19/2024 PHQ-2 Answer Date Recorded Patient Health Questionnaire-2 Score 0 08/19/2024 Sex and Gender Information Value Date Recorded Sex Assigned at Not on file Legal Sex Male 10:58 PM EST Gender Identity Not on file Sexual Orientation Not on file documented as of this encounter Last Filed Vital Signs Vital Sign Reading Time Taken Comments Blood Pressure 106/87 12/28/2024 12:52 PM EDT Pulse 130 12/28/2024 12:52 PM EDT Temperature 36.6 C (97.8 F) 12/28/2024 12:52 PM EDT Respiratory Rate 16 12/28/2024 12:52 PM EDT Oxygen Saturation 100% 12/28/2024 12:52 PM EDT Inhaled Oxygen Concentration - - Weight 170 kg (375 lb) 12/28/2024 12:52 PM EDT Height 190.5 cm (6' 3 ) 12/28/2024 12:52 PM EDT Body Mass Index 46.87 12/28/2024 12:52 PM EDT documented in this encounter Functional Status * Calculated C-SSRS Risk Score (Lifetime/Recent) Answer Date of Assessment Author No Risk Indicated 12/28/2024 12:54 PM EDT Derrick Rosales RN * Burt Suicide Severity Rating Scale (Screener/Recent Self-Report) Question Answer Date of Assessment Author 1. Wish to be (Past 1 Month) No 12/28/2024 12:54 PM EDT Duke Coleman, RN 2. Non-Specific Active Suicidal Thoughts (Past 1 Month) No 12/28/2024 12:54 PM EDT Duke Coleman, RN 6. Suicidal Behavior (Lifetime) No 12/28/2024 12:54 PM EDT Duke Coleman, RN documented as of this encounter Medications at Time of Discharge aspirin 81 MG EC tablet Take 1 tablet by mouth Daily. atorvastatin (LIPITOR) 10 MG tablet Take 1 tablet by mouth Every Night. bumetanide (BUMEX) 2 MG tablet Take 1 tablet by mouth 3 (Three) Times a Day. clopidogrel (PLAVIX) 75 MG tablet Take 1 tablet by mouth Daily. dilTIAZem CD (CARDIZEM CD) 120 MG 24 hr capsule Take 1 capsule by mouth Daily. 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 08/23/2024 glipizide (GLUCOTROL XL) 10 MG 24 hr tablet Take 1 tablet by mouth 2 (Two) Times a Day. glucose blood test strip Use as instructed 100 each 06/30/2024 glucose monitor monitoring kit Use 1 each 4 (Four) Times a Day Before Meals & at Bedtime. 1 each 06/30/2024 HYDROcodone-aceta minophen (NORCO) 7.5-325 MG per tabletIndications :Bilateral cellulitis of lower leg Take 1 tablet by mouth Every 6 (Six) Hours As Needed for Moderate Pain. 12 tablet 08/23/2024 3:58 PM EDT 08/23/2024 hydrOXYzine (ATARAX) 25 MG tablet Take 1 tablet by mouth 3 (Three) Times a Day As Needed for Anxiety. 05/06/2024 Insulin Glargine (LANTUS SOLOSTAR) 100 UNIT/ML injection pen Inject 60 Units under the skin into the appropriate area as directed 2 (Two) Times a Day. Insulin Lispro, 1 Unit Dial, (HumaLOG KwikPen) 100 UNIT/ML solution pen-injector Inject under the skin into the appropriate area as directed 3 (Three) Times a Day With Meals. Per sliding scale metoprolol succinate XL (TOPROL-XL) 50 MG 24 hr tablet Take 1 tablet by mouth Daily. 08/23/2024 pantoprazole (PROTONIX) 40 MG EC tablet Take 1 tablet by mouth Every Night. PARoxetine (PAXIL) 40 MG tablet Take 0.5 tablets by mouth Every Morning. 06/01/2024 polyethylene glycol (MIRALAX) 17 g packet Take 17 g by mouth Daily As Needed (Use if senna-docusate is ineffective). 05/06/2024 rivaroxaban (XARELTO) 20 MG tablet Take 1 tablet by mouth Daily. 30 tablet 08/23/2024 3:58 PM EDT 08/23/2024 tiZANidine (ZANAFLEX) 4 MG tablet Take 1 tablet by mouth Every 6 (Six) Hours As Needed for Muscle Spasms. documented as of this encounter Plan of Treatment Not on file documented as of this encounter Procedures Procedure Name Priority Date/Time Associated Diagnosis Comments RESPIRATORY PANEL PCR W/ COVID-19 (SARS-COV-2), NUCLEAR PROCESS ENGINEER SWAB IN UTM/VTP, 2 HR TAT STAT 12/28/2024 1:20 PM EDT COVID PRE-OP / PRE-PROCEDURE SCREENING ORDER (NO ISOLATION) STAT 12/28/2024 1:20 PM EDT MAC TOP STAT 12/28/2024 1:18 PM EDT GOLD TOP - SST STAT 12/28/2024 1:18 PM EDT DK GREEN TOP STAT 12/28/2024 1:18 PM EDT SCAN SLIDE STAT 12/28/2024 1:18 PM EDT CBC WITH AUTO DIFFERENTIAL STAT 12/28/2024 1:18 PM EDT LAVENDER TOP STAT 12/28/2024 1:18 PM EDT LIGHT BLUE TOP STAT 12/28/2024 1:18 PM EDT RAINBOW DRAW STAT 12/28/2024 1:18 PM EDT CBC AND DIFFERENTIAL STAT 12/28/2024 1:18 PM EDT MAGNESIUM STAT 12/28/2024 1:18 PM EDT COMPREHENSIVE METABOLIC PANEL STAT 12/28/2024 1:18 PM EDT documented in this encounter Results * Respiratory Panel PCR w/COVID-19(SARS-CoV-2) JOE/REFUGIO/TREVON/PAD/COR/ANGELITA In-House, NUCLEAR PROCESS ENGINEER Swab in UTM/VTM, 2 HR TAT - Swab, Nasopharynx (12/28/2024 1:20 PM EDT) Pathologist [facility] ADENOVIRUS, PCR Not Detected Not Detected BIOFIRE TOR 12/28/2024 2:52 PM EDT [facility] Coronavirus 229E Not Detected Not Detected [facility]RE [facility] 12/28/2024 2:52 PM EDT [facility] Coronavirus HKU1 Not Detected Not Detected [facility]RE [facility] 12/28/2024 2:52 PM EDT [facility] Coronavirus NL63 Not Detected Not Detected [facility]RE [facility] 12/28/2024 2:52 PM EDT [facility] Coronavirus OC43 Not Detected Not Detected [facility]RE [facility] 12/28/2024 2:52 PM EDT [facility] COVID19 Not Detected Not Detected - Ref. Range [facility]IOFIRE [facility] 12/28/2024 2:52 PM EDT [facility] Human Metapneumovirus Not Detected Not Detected [facility]IO[facility]RE [facility] 12/28/2024 2:52 PM EDT [facility] Human Rhinovirus/Enterov irus Not Detected Not Detected [facility]RE [facility] 12/28/2024 2:52 PM EDT [facility] Influenza A PCR Not Detected Not Detected [facility] 12/28/2024 2:52 PM EDT [facility] Influenza B PCR Not Detected Not Detected [facility]RE [facility] 12/28/2024 2:52 PM EDT [facility] Parainfluenza Virus 1 Not Detected Not Detected [facility]IO[facility]RE [facility] 12/28/2024 2:52 PM EDT [facility] Parainfluenza Virus 2 Not Detected Not Detected [facility]IO[facility]RE T[facility] 12/28/2024 2:52 PM EDT [facility] Parainfluenza Virus 3 Not Detected Not Detected [facility] 12/28/2024 2:52 PM EDT [facility] Parainfluenza Virus 4 Not Detected Not Detected [facility] 12/28/2024 2:52 PM EDT [facility] RSV, PCR Not Detected Not Detected [facility] 12/28/2024 2:52 PM EDT [facility] Bordetella pertussis pcr Not Detected Not Detected [facility] 12/28/2024 2:52 PM EDT [facility] Bordetella parapertussis PCR Not Detected Not Detected [facility] 12/28/2024 2:52 PM EDT [facility] Chlamydophila pneumoniae PCR Not Detected Not Detected [facility] 12/28/2024 2:52 PM EDT [facility] Mycoplasma pneumo by PCR Not Detected Not Detected [facility] 12/28/2024 2:52 PM EDT [facility] Swab Nasopharyngeal structure / Unknown Collection / Unknown 12/28/2024 1:20 PM EDT 12/28/2024 1:48 PM EDT [facility] - 12/28/2024 2:52 PM EDT In the setting of a positive respiratory panel with a viral infection PLUS a negative procalcitonin without other underlying concern for bacterial infection, consider observing off antibiotics or discontinuation of antibiotics and continue supportive care. If the respiratory panel is positive for atypical bacterial infection (Bordetella pertussis, Chlamydophila pneumoniae, or Mycoplasma pneumoniae), consider antibiotic de-escalation to target atypical bacterial infection. us Chavo Santana MD MICROBIOLOGY - GENERAL OR DERABLES Final Result [facility]
[address] [place] [address], * Scan Slide (12/28/2024 1:18 PM EDT) Anisocytosis Slight/1+ None Seen 12/28/2024 1:58 PM EDT [facility] Hypochromia Slight/1+ None Seen 12/28/2024 1:58 PM EDT [facility] Polychromasia Slight/1+ None Seen 12/28/2024 1:58 PM EDT [facility] WBC Morphology Normal Normal 12/28/2024 1:58 PM EDT [facility] Platelet Morphology Normal Normal 12/28/2024 1:58 PM EDT [facility] Blood Venipuncture / Unknown 12/28/2024 1:18 PM EDT 12/28/2024 1:27 PM EDT Chavo Santana MD LAB BLOOD ORDERABLES Rand l Result Performing Organization Address City/[facility]/ZIP Co de Phone Number [facility]
[address] [place] [address], * Magnesium (12/28/2024 1:18 PM EDT) Magnesium 2.3 1.6 - 2.4 mg/dL 12/28/2024 2:17 PM EDT [facility] Blood Venipuncture / Unknown 12/28/2024 1:18 PM EDT 12/28/2024 1:27 PM EDT Chavo Santana MD LAB BLOOD ORDERABLES Rand l Result [facility]
[address] [place] [address], [place] [phone] * Light Blue Top (12/28/2024 1:18 PM EDT) Extra Tube Hold for add-ons. 12/28/2024 1:30 PM EDT [facility] Comment:Auto resulted Blood Venipuncture / Unknown 12/28/2024 1:18 PM EDT 12/28/2024 1:27 PM EDT Chavo Santana MD LAB BLOOD ORDER ONLY Rand l Result Performing Organization Address City/[facility]/ZIP Co de Phone Number [facility]
[address] [place] [address], [place] [phone] * Mac Top (12/28/2024 1:18 PM EDT) Extra Tube Hold for add-ons. 12/28/2024 1:30 PM EDT [facility] Comment:Auto resulted. Blood Venipuncture / Unknown 12/28/2024 1:18 PM EDT 12/28/2024 1:27 PM EDT Chavo Santana MD LAB BLOOD ORDER ONLY Rand l Result Performing Organization Address [facility] Co de Phone Number [facility]
[address] [place] [address], [place] [phone] * Gold Top - SST (12/28/2024 1:18 PM EDT) Extra Tube Hold for add-ons. 12/28/2024 1:30 PM EDT [facility] Comment:Auto resulted. Blood Venipuncture / Unknown 12/28/2024 1:18 PM EDT 12/28/2024 1:27 PM EDT Chavo Santana MD LAB BLOOD ORDER ONLY Rand l Result Performing Organization Address City/[facility]/ZIP Co de Phone Number [facility]
[address] [place] [address], [place] [phone] * Lavender Top (12/28/2024 1:18 PM EDT) Extra Tube hold for add-on 12/28/2024 1:30 PM EDT [facility] Comment:Auto resulted Blood Venipuncture / Unknown 12/28/2024 1:18 PM EDT 12/28/2024 1:27 PM EDT Chavo Santana MD LAB BLOOD ORDER ONLY Rand l Result Performing Organization Address City/[facility]/ZIP Co de Phone Number [facility]
[address] [place] [address], * Green Top (Gel) (12/28/2024 1:18 PM EDT) Pathologist [facility] Extra Tube Hold for add-ons. 12/28/2024 1:30 PM EDT [facility] Comment:Auto resulted. Blood Venipuncture / Unknown 12/28/2024 1:18 PM EDT 12/28/2024 1:27 PM EDT Chavo Santana MD LAB BLOOD ORDER ONLY Rand l Result Performing Organization Address City/[facility]/ZIP Co de Phone Number [facility]
[address] [place] [address], * (ABNORMAL) CBC Auto Differential (12/28/2024 1:18 PM EDT) Pathologist [facility] WBC 16.90(H) 3.40 - 10.80 10*3/mm3 12/28/2024 1:58 PM EDT [facility] RBC 3.73(L) 4.14 - 5.80 10*6/mm3 12/28/2024 1:58 PM EDT [facility] Hemoglobin 8.0(L) 13.0 - 17.7 g/dL 12/28/2024 1:58 PM EDT [facility] Hematocrit 26.3(L) 37.5 - 51.0 % 12/28/2024 1:58 PM EDT [facility] MCV 70.5(L) 79.0 - 97.0 fL 12/28/2024 1:58 PM EDT [facility] MCH 21.4(L) 26.6 - 33.0 pg 12/28/2024 1:58 PM EDT [facility] MCHC 30.4(L) 31.5 - 35.7 g/dL 12/28/2024 1:58 PM EDT [facility] RDW 21.2(H) 12.3 - 15.4 % 12/28/2024 1:58 PM EDT [facility] RDW-SD 53.3 37.0 - 54.0 fl 12/28/2024 1:58 PM EDT [facility] MPV 9.3 6.0 - 12.0 fL 12/28/2024 1:58 PM EDT [facility] Platelets 529(H) 140 - 450 10*3/mm3 12/28/2024 1:58 PM EDT [facility] Neutrophil % 75.5 42.7 - 76.0 % 12/28/2024 1:58 PM EDT [facility] Lymphocyte % 12.6(L) 19.6 - 45.3 % 12/28/2024 1:58 PM EDT [facility] Monocyte % 7.9 5.0 - 12.0 % 12/28/2024 1:58 PM EDT [facility] Eosinophil % 2.6 0.3 - 6.2 % 12/28/2024 1:58 PM EDT [facility] Basophil % 0.7 0.0 - 1.5 % 12/28/2024 1:58 PM EDT [facility] Immature Grans % 0.7(H) 0.0 - 0.5 % 12/28/2024 1:58 PM EDT [facility] Neutrophils, Absolute 12.77(H) 1.70 - 7.00 10*3/mm3 12/28/2024 1:58 PM EDT [facility] Lymphocytes, Absolute 2.13 0.70 - 3.10 10*3/mm3 12/28/2024 1:58 PM EDT [facility] Monocytes, Absolute 1.34(H) 0.10 - 0.90 10*3/mm3 12/28/2024 1:58 PM EDT [facility] Eosinophils, Absolute 0.44(H) 0.00 - 0.40 10*3/mm3 12/28/2024 1:58 PM EDT [facility] Basophils, Absolute 0.11 0.00 - 0.20 10*3/mm3 12/28/2024 1:58 PM EDT [facility] Immature Grans, Absolute 0.11(H) 0.00 - 0.05 10*3/mm3 12/28/2024 1:58 PM EDT [facility] nRBC 0.0 0.0 - 0.2 /100 WBC 12/28/2024 1:58 PM EDT [facility] Blood Venipuncture / Unknown 12/28/2024 1:18 PM EDT 12/28/2024 1:27 PM EDT Narrative [facility] - 12/28/2024 1:58 PM EDT Appended report. These results have been appended to a previously verified report. Chavo Santana MD LAB BLOOD ORDERABLES Rand l Result [facility]
[address] [place] [address], * (ABNORMAL) Comprehensive Metabolic Panel (12/28/2024 1:18 PM EDT) Glucose 118(H) 65 - 99 mg/dL 12/28/2024 2:17 PM EDT [facility] BUN 70.0(H) 8.0 - 23.0 mg/dL 12/28/2024 2:17 PM EDT [facility] Creatinine 2.99(H) 0.76 - 1.27 mg/dL 12/28/2024 2:17 PM EDT [facility] Sodium 136 136 - 145 mmol/L 12/28/2024 2:17 PM EDT [facility] Potassium 3.2(L) 3.5 - 5.2 mmol/L 12/28/2024 2:17 PM [facility] Chloride 92(L) 98 - 107 mmol/L 12/28/2024 2:17 PM [facility] CO2 25.7 22.0 - 29.0 mmol/L 12/28/2024 2:17 PM [facility] Calcium 9.4 8.6 - 10.5 mg/dL 12/28/2024 2:17 PM [facility] Total Protein 7.1 6.0 - 8.5 g/dL 12/28/2024 2:17 PM [facility] Albumin 3.6 3.5 - 5.2 g/dL 12/28/2024 2:17 PM [facility] ALT (SGPT) 11 1 - 41 U/L 12/28/2024 2:17 PM [facility] AST (SGOT) 18 1 - 40 U/L 12/28/2024 2:17 PM [facility] Alkaline Phosphatase 108 39 - 117 U/L 12/28/2024 2:17 PM [facility] Total Bilirubin 0.3 0.0 - 1.2 mg/dL 12/28/2024 2:17 PM [facility] Globulin 3.5 gm/dL 12/28/2024 2:17 PM [facility] Comment:Calculated Result A/G Ratio 1.0 g/dL 12/28/2024 2:17 PM [facility] BUN/Creatinine Ratio 23.4 7.0 - 25.0 12/28/2024 2:17 PM [facility] Anion Gap 18.3(H) 5.0 - 15.0 mmol/L 12/28/2024 2:17 PM [facility] eGFR 22.7(L) >60.0 mL/min/1.7 3 12/28/2024 2:17 PM [facility] Blood Venipuncture / Unknown 12/28/2024 1:18 PM EDT 12/28/2024 1:27 PM EDT Narrative [facility] - 12/28/2024 2:17 PM EDT GFR Categories in Chronic Kidney Disease (CKD) GFR Category GFR (mL/min/1.73) Interpretation G1 90 or greater Normal or high (1) G2 60-89 Mild decrease (1) G3a 45-59 Mild to moderate decrease G3b 30-44 Moderate to severe decrease G4 15-29 Severe decrease G5 14 or less Kidney failure (1)In the absence of evidence of kidney disease, neither GFR category G1 or G2 fulfill the criteria for CKD. eGFR calculation 2020 CKD-EPI creatinine equation, which does not include race as a factor us Chavo Santana MD LAB BLOOD ORDERABLES Rand russo Result [facility]
[address] [place] [address], documented in this encounter Visit Diagnoses Not on filedocumented in this encounter Administered Medications Inactive Administered Medications - up to 3 most recent administrations Medication Order MAR Action Action Date Dose Rate Site sodium chloride 0.9 % flush 10 mL 10 mL, Intravenous, As Needed, Line Care, Starting on Thu12/28/24 at 1304 documented in this encounter Active and Recently Administered Medications Times are shown in EDT. Scheduled Medication Order 12/26/2024 12/27/2024 12/28/2024 acetaminophen (TYLENOL) tablet 1,000 mg 1,000 mg, Oral, Once, On Thu12/28/24 at 1337, For 1 dose, If given for fever, use fever parameter: fever greater than 100.4 F Based on patient request - if ordered for moderate or severe pain, provider allows for administration of a medication prescribed for a lower pain scale. Do not exceed 4 grams of acetaminophen in a 24 hr period. Max dose of 2gm for AST/ALT greater than 120 units/L. If given for pain, use the following pain scale: Mild Pain = Pain Score of 1-3, CPOT 1-2 Moderate Pain = Pain Score of 4-6, CPOT 3-4 Severe Pain = Pain Score of 7-10, CPOT 5-8 1337 (Due) sodium chloride 0.9 % bolus 1,000 mL 1,000 mL, Intravenous, at 2,000 mL/hr, Administer over 0.5 Hours, Once, On Thu12/28/24 at 1449, For 1 dose 1449 (Due) PRN Medication Order 12/26/2024 12/27/2024 12/28/2024 sodium chloride 0.9 % flush 10 mL(Linked Group 1) 10 mL, Intravenous, As Needed, Line Care, Starting on Thu12/28/24 at 1304 Linked Groups Order Group 1: Insert Peripheral IV (CANCELED) STAT, Once, On Thu12/28/24 at 1305, For 1 occurrence And sodium chloride 0.9 % flush 10 mLJump to med 10 mL, Intravenous, As Needed, Line Care, Starting on Thu12/28/24 at 1304 documented in this encounter Additional Health Concerns Infection Onset Date Last Indicated Resolved Time COVID Screen (preop/placement) 12/28/2024 12/28/2024 12/28/2024 2:52 PM EDT documented as of this encounter Care Teams Line Maintainer Relationship Specialty Start Date End Date Saulo Martinez DO [address] [place] [address] PCP - General Internal Medicine 08/23/24 documented as of this encounter
[2024-12-30] VITALS (7 sets, daily range): BP systolic 100–144; BP diastolic 52–80; PULSE 75–90; RESP 12–20; TEMP 36.6–36.8; O2SAT 92–96; BMI 46.8
--- NOTE | 2024-12-30 07:57 | XR_ITS ---
FINAL REPORT CLINICAL HISTORY: Shortness of breath COMPARISON: 09/11/2024 FINDINGS: A single frontal view of the chest was obtained. No acute pulmonary opacity is present. There is no evidence of effusion or pneumothorax. There are extensive postoperative changes the from thoracic spine fixation. Mediastinum is otherwise unremarkable. There is stable mild cardiomegaly. IMPRESSION: No acute abnormality. Reviewed, Interpreted and Dictated by Aixa Carrillo MD Transcribed by Amanda Landa Authenticated and [facility]
--- NOTE | 2024-12-30 08:00 | HMH.EDGENADL ---
Discharge Plan Disposition Patient Disposition: Xfer Other Prescriptions Prescriptions: No Action cefepime 2 gram recon soln 2 g IV BID insulin glargine [Lantus Solostar U-100 Insulin] 100 unit/mL (3 mL) insulin pen 60 unit SQ BID Mounjaro 2.5 mg/0.5 mL pen injector 2.5 mg SQ WEEKLY 30 Days Qty: 2.5 0RF metoprolol succinate 25 mg tablet extended release 24 hr 25 mg PO DAILY 30 Days Qty: 30 0RF escitalopram oxalate [Lexapro] 20 mg tablet 20 mg PO DAILY Qty: 90 3RF pregabalin 100 mg capsule 100 mg PO TID 30 Days Qty: 90 0RF tizanidine 4 mg capsule 4 mg PO HSP PRN (Reason: muscle spasticity) Qty: 30 0RF tramadol 50 mg tablet 75 mg PO Q6H PRN (Reason: pain) Qty: 180 0RF insulin lispro [Humalog U-100 Insulin] 100 unit/mL Solution See Protocol SQ ACHS 30 Days Qty: 1.2 4RF Protocol: Insulin Corrective Med-Dose Regimen Condition: Fingerstick Blood Glucose Dose/Route: Insulin Units Condition: 151-200 mg/dl Dose/Route: 2 units/SQ Condition: 201-250 mg/dl Dose/Route: 5 units/SQ Condition: 251-300 mg/dl Dose/Route: 8 units/SQ Condition: 301-350 mg/dl Dose/Route: 10 units/SQ Condition: 351-400 mg/dl Dose/Route: 12 units/SQ Condition: 401-450 mg/dl Dose/Route: 15 units/SQ Condition: > 450 mg/dl Dose/Route: CALL MD Protocol Text: Medium Intensity Sliding Scale Insulin metolazone 2.5 mg tablet 5 mg PO DAILY Eliquis 5 mg tablet 5 mg PO BID potassium chloride 20 mEq tablet,ER particles/crystals 40 meq PO DAILY Patient Comments: TAKE TWO TABLETS BY MOUTH EVERY DAY bumetanide 2 mg tablet 2 mg PO TID 30 Days Qty: 0 0RF Referrals Follow up/Referrals: Provider,Referral, [Referring, Medical] - See instructions Clinical Impressions Clinical Impression: Dyspnea, Decubitus ulcer of ankle, stage 3, Morbid obesity, LUPE (acute kidney injury), Atrial fibrillation with rapid ventricular response, Acute UTI, ESBL E. coli carrier Stand Alone Forms Stand Alone Forms: Transfer Record - ED Instructions Patient Instructions: DI for Skin Abscess Print Language Print Language: Cypriot Discharge ED Provider: Jennifer Felix General Adult HPI General Chief complaint: Skin/Abscess/Foreign Body Stated complaint: sob, sores on buttocks Time Seen by Provider: 12/30/24 07:47 History of Present Illness HPI narrative: Patient is a 64-year-old man very well-known to our emergency department in our hospital with a history of chronic lower extremity infections with a PICC line and getting IV antibiotics who has been very noncompliant with medications and management treatment programs in the past refusing to be in a care home which is what he has been told many times that he needs. Presents today with worsening dyspnea and fevers he claims over the last week as well as painful sacral decubitus ulcers. States that his sister is the only caregiver from the wound management standpoint at home. Also states that he has foul-smelling urine and is concerned to have a urinary tract infection. Related Data Home Medications ?Medication ?Instructions ?Recorded ?Confirmed insulin glargine 100 unit/mL (3 60 unit SQ BID 10/11/24 12/30/24 mL) subcutaneous pen (Lantus Solostar U-100 Insulin) apixaban 5 mg tablet (Eliquis) 5 mg PO BID 12/06/24 12/30/24 metolazone 2.5 mg tablet 5 mg PO DAILY 12/06/24 12/30/24 potassium chloride 20 mEq 40 meq PO DAILY 12/07/24 12/30/24 tablet,extended release(part/cryst) cefepime 2 gram solution for 2 g IV BID 12/15/24 12/15/24 injection Previous Rx's ?Medication ?Instructions ?Recorded insulin lispro 100 unit/mL See Protocol SQ ACHS 30 days #1.2 08/01/24 subcutaneous solution (Humalog mL U-100 Insulin) metoprolol succinate 25 mg 25 mg PO DAILY 30 days #30 tabs 11/18/24 tablet,extended release 24 hr tirzepatide 2.5 mg/0.5 mL 2.5 mg (0.5 mL) SQ WEEKLY 30 days 11/22/24 subcutaneous pen injector #2.5 mL (Mounjaro) bumetanide 2 mg tablet 2 mg PO TID 30 days #0 tabs 12/08/24 escitalopram oxalate 20 mg tablet 20 mg PO DAILY #90 tabs 12/29/24 (Lexapro) pregabalin 100 mg capsule 100 mg PO TID 30 days #90 caps 12/29/24 tizanidine 4 mg capsule 4 mg PO HSP PRN muscle spasticity 12/29/24 #30 caps tramadol 50 mg tablet 75 mg (1.5 x 50 mg) PO Q6H PRN 12/29/24 pain #180 tabs Allergies Allergy/AdvReac Type Severity Reaction Status Date / Time sitagliptin (From Januvia) AdvReac Severe sore Verified 12/15/24 13:34 hydromorphone (From Dilaudid) AdvReac Vomiting Verified 12/15/24 13:34 morphine AdvReac Vomiting Verified 12/15/24 13:34 [facility] Disclaimer: The information contained in this section may have been updated after the patient was seen, as this information can be updated by other users. Medical History Morbid obesity with BMI of 50.0-59.9, adult Atrial fibrillation Peripheral arterial disease Hypertension Diabetes mellitus Cellulitis of left lower extremity Venous stasis ulcer of both lower extremities without varicose veins Volume overload Cellulitis Acute on chronic heart failure with preserved ejection fraction (HFpEF) LORI (obstructive sleep apnea) Surgical History History of amputation of right fourth toe History of amputation of left fifth toe Family History Other No significant family history Social History Smoking Status: Never smoker alcohol intake: never current occupational status: retired and disabled Travel in the last 8 weeks?: None Have you lived/traveled outside [place] in past 30 days?: No Contact w/someone who lives/traveled outside [place] past 30 days?: No Exposure to someone with infectious disease in past 14 days?: No Do you have a fever (greater than 100.4 F or 38 C)?: No Have you tested positive for COVID-19?: No Exposed to someone with COVID-19 in past 14 days?: No Do you have a sore throat?: No Do you have a cough?: No Do you have any weakness?: No Do you have any diarrhea?: No Are you experiencing any unusual bleeding?: No Do you have any muscle aches/pain?: No Do you have any abdominal pain?: No Are you experiencing loss of taste or smell?: No Other Medical History Have you received the Flu Vaccine for this season: No Have you received the Pneumonia Vaccine: No ROS Obtained: Yes All systems reviewed & no additional complaints except as documented Physical Exam General General appearance: alert and in no apparent distress Respiratory Respiratory exam: Present normal lung sounds bilaterally; Absent respiratory distress Cardiovascular Cardiovascular exam: Present tachycardia Rectal Exam Rectal exam: Present other (Patient has extensive sacral decubitus ulcers some are stage II but some are also stage III penetrating through into the subcutaneous fat no muscular exposure or bony exposure or tunneling noted) Neurological Exam Neurological exam: Present alert and oriented X3 Medical Decision Making Medical Records Screening: Per USPSTF and CDC recommendations, given the prevalence of disease in our region, it is our hospital?s policy to screen for HIV and viral Hepatitis for all patients aged 18 and over and those with ongoing risk factors. Madi Inquiry Pt receiving controlled substance: No Vital Signs: 12/30/24 07:56 12/30/24 08:51 12/30/24 09:01 Temperature 98.2 F Temperature Source Oral Pulse Rate 86 Pulse Rate [Left Radial] 75 Respiratory Rate 20 16 17 Blood Pressure 144/75 H 100/56 L Blood Pressure [Right Arm] 137/68 Blood Pressure Mean [Right Arm] 91 02 Sat by Pulse Oximetry 96 92 L Oxygen Delivery Method Room Air Lab Data Lab results reviewed: Yes I reviewed the patient's lab results. Lab Results 12/30/24 08:18: Urine Color Yellow, Urine Appearance Sl cloudy, Urine pH 6.0, Ur Specific [place] 1.020, Urine Protein 2+ A, Urine Glucose (UA) Negative, Urine Ketones Trace, Urine Blood 2+ A, Urine Nitrate Negative, Urine Bilirubin Negative, Urine Urobilinogen 0.2, Ur Leukocyte Esterase 1+ A, Urine RBC Occasional, Urine WBC 20-50, Ur Squamous Epith Cells 5-10, Urine Bacteria 2+ 12/30/24 08:34: WBC 16.8 H, RBC 3.57 L, Hgb 7.4 L, Hct 24.7 L, MCV 69.2 L, MCH 20.7 L, MCHC 30.0 L, RDW 20.5 H, Plt Count 476 H, MPV 9.1, Neut % (Auto) 83.0 H, Lymph % (Auto) 9.7 L, Terry % (Auto) 5.5, Eos % (Auto) 0.5, Baso % (Auto) 0.5, Neut # (Auto) 13.9 H, Lymph # (Auto) 1.6, Terry # (Auto) 0.9, Eos # (Auto) 0.1, Baso # (Auto) 0.1, Sodium 134 L, Potassium 3.4 L, Chloride 89 L, Carbon Dioxide 24, Anion Gap 24.4 H, BUN 86 H, Creatinine 4.20 H, Estimated Creat Clear 22, Estimated GFR 14 L*, Est GFR ( Amer) 17 L*, Glucose 157 H, Calcium 8.3 L, Total Bilirubin 1.4 H, AST 25, ALT 15, Alkaline Phosphatase 128 H, Troponin I 0.04 H, NT-Pro-B Natriuret Pep 14571 H, Total Protein 7.0, Albumin 3.7, Globulin 3.3 H, Albumin/Globulin Ratio 1.1 12/30/24 08:34 12/30/24 08:34 Orders (Tests/Meds): ED MEDICATIONS Discontinued Medications Generic Name Dose Route Start Last Admin Trade Name Freq PRN Reason Stop Dose Admin Meropenem 1 gm/ Sodium 100 mls @ 100 mls/hr 12/30/24 09:39 12/30/24 09:48 Chloride IV 12/30/24 09:40 100 mls/hr ONCE ONE Administration Metoprolol Tartrate 5 mg 12/30/24 08:29 12/30/24 08:57 Metoprolol Tartrate 5mg/5ml Vial IV 12/30/24 08:30 5 mg ONCE ONE Administration Morphine Sulfate 4 mg 12/30/24 08:44 12/30/24 08:56 Morphine 4mg/Ml Syringe IV 12/30/24 08:45 4 mg ONCE ONE Administration Ondansetron HCl 4 mg 12/30/24 08:44 12/30/24 08:56 Ondansetron 4mg/2ml Vial IV 12/30/24 08:45 4 mg ONCE ONE Administration ORDERS Category Date Time Status CXR --portable [XR chest portable] Stat Exams 12/30/24 07:57 Completed BNP [NT Pro Brain Natriuretic Pep.] Stat Lab 12/30/24 08:34 Completed CBC w/Auto Diff [Complete Blood Count Auto Diff] Stat Lab 12/30/24 08:34 Completed CMP [Comprehensive Metabolic Panel] Stat Lab 12/30/24 08:34 Completed D-Dimer Stat Lab 12/30/24 08:34 Received Trop I [Troponin I] Stat Lab 12/30/24 08:34 Completed Troponin I Q3H Lab 12/30/24 11:00 Ordered Troponin I Q3H Lab 12/30/24 14:00 Ordered UA [Urinalysis and Microscopic] Stat Lab 12/30/24 08:18 Completed Urine Culture Stat Micro 12/30/24 08:18 Received Medical Decision Narrative: Patient is a chronically ill 64-year-old male with above history of physical. Has chronic lower extremity edema known heart failure presents today with dyspnea. Does appear to be volume overloaded but he is unsure of his dry weight and his weight today. Will check his weights in comparison with when he was recently in the hospital. With regards to his lower extremity wounds they are improving he has home Unna type boots on and I did not take them down he states those are much improved. He has extensive sacral decubitus ulcers some of which are stage III. However patient refuses to come into the hospital for the sake of rehab or care home placement which is ultimately what he needs he states he has been told this many times. States that he just will not do it. No evidence of any infection on these ulcers he does needs better wound management. Will workup his dyspnea and his complaints of possible urinary tract infection. Reassessment 10:05 AM as discussed above patient arrived with a PICC line in place and was on cefepime after reviewing hospital medicine's notes from recent hospitalization this was initiated as recommended by the thermal cutting machine operator who is following him for his lower extremity wounds and he has been on cefepime since that time to treat the lower extremity infections which he claims are significantly improving. Patient does have evidence of urinary tract infection today and looking through his last urine culture result he had a multidrug-resistant E. coli organism that was an ESBL in the past and I presume that that is what his UTI is again today especially developing this infection on top of the cefepime. Therefore meropenem has been initiated to treat this presumed ESBL organism. Chest x-ray was performed which I personally interpreted which shows no intrathoracic abnormality. Of note patient has significant acute kidney injury with a creatinine of 4.2 BUN of 86 this is elevated above his baseline which was recently 1.6. We do not have nephrology coverage I discussed the case with our hospital medicine and we both feel the patient would be better served at a higher level of care where he can both have infectious disease and nephrology coverage. Patient seems to be at his baseline from a heart failure standpoint. Additionally he does have A-fib RVR no endorgan damage from that at the moment and seems to be stable he has been given multiple doses of IV metoprolol with intermittent improvement in his heart rate. I spoke with Dr. Casey with [facility] who accepted the patient for further management. Critical Care Critical Care Time Critical Care Time: Yes Attestation: On 12/30/24, the high probability of a clinically significant, sudden or life threatening deterioration of the following system(s) required my full and direct attention, intervention and personal management. The time I documented below is in addition to time spent performing reported procedures but includes the following listed in this critical care notation. Total Time Total Critical Care Time: 65
--- OUTSIDE RECORDS SUMMARY | 2024-12-30 08:04 | XMS_ITS | Clinical Summary ---
Author Organization [facility] Address [address] [place] [address] Care Team Providers Care Co Founder & Ceo Name Role Phone Saulo Martinez Mukul Primary [...] 06/29/2024 07/07/2024 Type 2 diabetes mellitus 03/27/2024 Encounters Date Type Department Care Team Description 12/28/2024 2:13 PM EDT - 12/28/2024 3:18 PM EDT Emergency [facility] EMERGENCY DEPARTMENT [address] [place] [id number] Chavo Santana MD Discharge Disposition: Left Against Medical Advice 12/28/2024 Travel from Last 3 Months Immunizations Immunization Administration Dates Next Due Flu [...] = 0.6 oz pur e alcohol) rare [facility] Utilities Answer Date Recorded In the past 12 months has [employer], gas, oil, or water [employer] threatened to shut off services in your [...] and heating? Not hard at all 08/19/2024 [facility] Occupat unc healthal Health - Occupational Stress Questionnaire Answer Date [...] GED or equivalent No 08/19/2024 Preferred Language Maltese 08/19/2024 PHQ-2 Answer Date Recorded Patient Health [...] Mass Index 46.87 12/28/2024 12:52 PM EDT Plan of Treatment Health Maintenance [...] VISIT 06/03/2024 03/03/2022 HEPATITIS C SCREENING 06/03/2024 INFLUENZA VACCINE 11/11/2024 07/07/2024, , 01/02/2020, Additional history exists HEMOGLOBIN A1C 12/31/2024 06/30/2024, 05/14, 03/27/2024, Additional history exists TDAP/TD VACCINES (2 - Td or Tdap) 04/02/2025 015 LIPID PANEL 05/26/2025 05/26/2024, 03/14, 07/14/2022, Additional history exists Procedures Procedure Name Priority Date/Time Associated Diagnosis Comments RESPIRATORY PANEL PCR W/ COVID-19 (SARS-COV-2), [facility] SWAB IN UTM/VTP, 2 HR TAT STAT 12/28/2024 1:20 PM EDT COVID PRE-OP / PRE-PROCEDURE SCREENING ORDER (NO ISOLATION) STAT 12/28/2024 1:20 PM EDT LIGHT BLUE TOP STAT 12/28/2024 1:18 PM EDT MAC TOP STAT 12/28/2024 1:18 PM EDT GOLD TOP - SST STAT 12/28/2024 1:18 PM EDT LAVENDER TOP STAT 12/28/2024 1:18 PM EDT DK GREEN TOP STAT 12/28/2024 1:18 PM EDT CBC AND DIFFERENTIAL STAT 12/28/2024 1:18 PM EDT SCAN SLIDE STAT 12/28/2024 1:18 PM EDT MAGNESIUM STAT 12/28/2024 1:18 PM EDT CBC WITH AUTO DIFFERENTIAL STAT 12/28/2024 1:18 PM EDT RAINBOW DRAW STAT 12/28/2024 1:18 PM EDT COMPREHENSIVE METABOLIC PANEL STAT 12/28/2024 1:18 PM EDT HEMOGLOBIN A1C Urgent 06/30/2024 3:12 AM EDT LIPID PANEL STAT 05/26/2024 3:15 PM EST from Last 3 Months or Most Recently Relevant to Health Maintenance Results * Respiratory Panel PCR w/COVID-19(SARS-CoV-2) JOE/REFUGIO/TREVON/PAD/COR/ANGELITA In-House, [facility] Swab in UTM/VTM, 2 HR TAT - Swab, Nasopharynx (12/28/2024 1:20 PM EDT) [facility] ADENOVIRUS, PCR Not Detected Not Detected [facility] 12/28/2024 2:52 PM EDT [facility] Coronavirus 229E Not Detected Not Detected [facility] 12/28/2024 2:52 PM EDT [facility] Coronavirus HKU1 Not Detected Not Detected [facility] 12/28/2024 2:52 PM EDT [facility] Coronavirus NL63 Not Detected Not Detected [facility] 12/28/2024 2:52 PM EDT [facility] Coronavirus OC43 Not Detected Not Detected [facility] 12/28/2024 2:52 PM EDT [facility] COVID19 Not Detected Not Detected - Ref. Range [facility] 12/28/2024 2:52 PM EDT [facility] Human Metapneumovirus Not Detected Not Detected [facility] 12/28/2024 2:52 PM EDT [facility] Human Rhinovirus/Enterov irus Not Detected Not Detected [facility] 12/28/2024 2:52 PM EDT [facility] Influenza A PCR Not Detected Not Detected [facility] 12/28/2024 2:52 PM EDT [facility] Influenza B PCR Not Detected Not Detected [facility] 12/28/2024 2:52 PM EDT [facility] Parainfluenza Virus 1 Not Detected Not Detected [facility] 12/28/2024 2:52 PM EDT [facility] Parainfluenza Virus 2 Not Detected Not Detected [facility] 12/28/2024 2:52 PM EDT [facility] Parainfluenza Virus 3 Not Detected Not Detected [facility] 12/28/2024 2:52 PM EDT [facility] Parainfluenza Virus 4 Not Detected Not Detected [facility] 12/28/2024 2:52 PM EDT [facility] RSV, PCR Not Detected Not Detected [facility] 12/28/2024 2:52 PM EDT [facility] Bordetella pertussis pcr Not Detected Not Detected [facility] 12/28/2024 2:52 PM EDT [facility] Bordetella parapertussis PCR Not Detected Not Detected [facility] 12/28/2024 2:52 PM EDT [facility] Chlamydophila pneumoniae PCR Not Detected Not Detected [facility] 12/28/2024 2:52 PM EDT [facility] Mycoplasma pneumo by PCR Not Detected Not Detected [facility] 12/28/2024 2:52 PM EDT [facility] Swab Nasopharyngeal structure / Unknown Collection / Unknown 12/28/2024 1:20 PM EDT 12/28/2024 1:48 PM EDT [facility] - 12/28/2024 2:52 PM EDT In [...] antibiotic de-escalation to target atypical bacterial infection. Chavo Santana MD MICROBIOLOGY - GENERAL OR DERABLES Final Result [facility]
[address] [place] [address], * Mac Top (12/28/2024 1:18 PM EDT) Extra Tube Hold for add-ons. 12/28/2024 1:30 PM EDT [facility] Comment:Auto resulted. Blood Venipuncture / Unknown 12/28/2024 1:18 PM EDT 12/28/2024 1:27 PM EDT Chavo Santana MD LAB BLOOD ORDER ONLY Rand l Result [facility]
[address] [place] [address], * Gold Top - SST (12/28/2024 1:18 PM EDT) Extra Tube Hold for add-ons. 12/28/2024 1:30 PM EDT [facility] Comment:Auto resulted. Blood Venipuncture / Unknown 12/28/2024 1:18 PM EDT 12/28/2024 1:27 PM EDT Chavo Santana MD LAB BLOOD ORDER ONLY Rand l Result Performing Organization Address City/[facility]/ZIP Co de Phone Number [facility]
[address] [place] [address], * Green Top (Gel) (12/28/2024 1:18 PM EDT) Extra Tube Hold for add-ons. 12/28/2024 1:30 PM EDT [facility] Comment:Auto resulted. Blood Venipuncture / Unknown 12/28/2024 1:18 PM EDT 12/28/2024 1:27 PM EDT Chavo Santana MD LAB BLOOD ORDER ONLY Rand l Result [facility]
[address] [place] [address], * Scan Slide (12/28/2024 1:18 PM EDT) Pathologist [facility] Anisocytosis Slight/1+ None Seen 12/28/2024 1:58 PM EDT [facility] Hypochromia Slight/1+ None Seen 12/28/2024 1:58 PM EDT [facility] Polychromasia Slight/1+ None Seen 12/28/2024 1:58 PM EDT [facility] WBC Morphology Normal Normal 12/28/2024 1:58 PM EDT [facility] Platelet Morphology Normal Normal 12/28/2024 1:58 PM EDT [facility] Blood Venipuncture / Unknown 12/28/2024 1:18 PM EDT 12/28/2024 1:27 PM EDT [facility] Deny Santana MD LAB BLOOD ORDERABLES Rand l Result [facility]
[address] [place] [address], * (ABNORMAL) CBC Auto Differential (12/28/2024 1:18 PM EDT) Pathologist [facility] WBC 16.90(H) 3.40 - 10.80 10*3/mm3 12/28/2024 1:58 PM EDT [facility] RBC 3.73(L) 4.14 - 5.80 10*6/mm3 12/28/2024 1:58 PM EDT [facility] Hemoglobin 8.0(L) 13.0 - 17.7 g/dL 12/28/2024 1:58 PM EDT [facility] Hematocrit 26.3(L) 37.5 - 51.0 % 12/28/2024 1:58 PM EDT [facility] MCV 70.5(L) 79.0 - 97.0 fL 12/28/2024 1:58 PM EDT [facility] MCH 21.4(L) 26.6 - 33.0 pg 12/28/2024 1:58 PM EDT [facility] MCHC 30.4(L) 31.5 - 35.7 g/dL 12/28/2024 1:58 PM EDT [facility] RDW 21.2(H) 12.3 - 15.4 % 12/28/2024 1:58 PM EDT [facility] RDW-SD 53.3 37.0 - 54.0 fl 12/28/2024 1:58 PM EDT [facility] MPV 9.3 6.0 - 12.0 fL 12/28/2024 1:58 PM EDT [facility] Platelets 529(H) 140 - 450 10*3/mm3 12/28/2024 1:58 PM EDT [facility] Neutrophil % 75.5 42.7 - 76.0 % 12/28/2024 1:58 PM EDT [facility] Lymphocyte % 12.6(L) 19.6 - 45.3 % 12/28/2024 1:58 PM EDT [facility] Monocyte % 7.9 5.0 - 12.0 % 12/28/2024 1:58 PM EDT [facility] Eosinophil % 2.6 0.3 - 6.2 % 12/28/2024 1:58 PM EDT [facility] Basophil % 0.7 0.0 - 1.5 % 12/28/2024 1:58 PM EDT [facility] Immature Grans % 0.7(H) 0.0 - 0.5 % 12/28/2024 1:58 PM EDT [facility] Neutrophils, Absolute 12.77(H) 1.70 - 7.00 10*3/mm3 12/28/2024 1:58 PM EDT [facility] Lymphocytes, Absolute 2.13 0.70 - 3.10 10*3/mm3 12/28/2024 1:58 PM EDT [facility] Monocytes, Absolute 1.34(H) 0.10 - 0.90 10*3/mm3 12/28/2024 1:58 PM EDT [facility] Eosinophils, Absolute 0.44(H) 0.00 - 0.40 10*3/mm3 12/28/2024 1:58 PM EDT [facility] Basophils, Absolute 0.11 0.00 - 0.20 10*3/mm3 12/28/2024 1:58 PM EDT [facility] Immature Grans, Absolute 0.11(H) 0.00 - 0.05 10*3/mm3 12/28/2024 1:58 PM EDT [facility] nRBC 0.0 0.0 - 0.2 /100 WBC 12/28/2024 1:58 PM EDT [facility] Blood Venipuncture / Unknown 12/28/2024 1:18 PM EDT 12/28/2024 1:27 PM EDT Narrative [facility] - 12/28/2024 1:58 PM EDT Appended report. These results have been appended to a previously verified report. Chavo Santana MD LAB BLOOD ORDERABLES Rand l Result [facility]
[address] [place] [address], * Lavender Top (12/28/2024 1:18 PM EDT) Extra Tube hold for add-on 12/28/2024 1:30 PM EDT [facility] Comment:Auto resulted Blood Venipuncture / Unknown 12/28/2024 1:18 PM EDT 12/28/2024 1:27 PM EDT Chavo Santana MD LAB BLOOD ORDER ONLY Rand l Result [facility]
[address] [place] [address], * Light Blue Top (12/28/2024 1:18 PM EDT) [facility] Extra Tube Hold for add-ons. 12/28/2024 1:30 PM EDT [facility] Comment:Auto resulted Blood Venipuncture / Unknown 12/28/2024 1:18 PM EDT 12/28/2024 1:27 PM EDT Chavo Santana MD LAB BLOOD ORDER ONLY Rand l Result Performing Organization Address City/[facility]/ZIP Co de Phone Number [facility]
[address] [place] [address], * Magnesium (12/28/2024 1:18 PM EDT) [facility] Magnesium 2.3 1.6 - 2.4 mg/dL 12/28/2024 2:17 PM EDT [facility] Blood Venipuncture / Unknown 12/28/2024 1:18 PM EDT 12/28/2024 1:27 PM EDT Chavo Santana MD LAB BLOOD ORDERABLES Rand l Result [facility]
[address] [place] [address], * (ABNORMAL) Comprehensive Metabolic Panel (12/28/2024 1:18 PM EDT) [facility] Glucose 118(H) 65 - 99 mg/dL 12/28/2024 2:17 PM EDT [facility] BUN 70.0(H) 8.0 - 23.0 mg/dL 12/28/2024 2:17 PM EDT [facility] Creatinine 2.99(H) 0.76 - 1.27 mg/dL 12/28/2024 2:17 PM EDT [facility] Sodium 136 136 - 145 mmol/L 12/28/2024 2:17 PM [facility] Potassium 3.2(L) 3.5 - 5.2 mmol/L 12/28/2024 2:17 PM [facility] Chloride 92(L) 98 - 107 mmol/L 12/28/2024 2:17 PM [facility] CO2 25.7 22.0 - 29.0 mmol/L 12/28/2024 2:17 PM T [facility] Calcium 9.4 8.6 - 10.5 mg/dL 12/28/2024 2:17 PM [facility] Total Protein 7.1 6.0 - 8.5 g/dL 12/28/2024 2:17 PM [facility] Albumin 3.6 3.5 - 5.2 g/dL 12/28/2024 2:17 PM [facility] ALT (SGPT) 11 1 - 41 U/L 12/28/2024 2:17 PM [facility] AST (SGOT) 18 1 - 40 U/L 12/28/2024 2:17 PM [facility] Alkaline Phosphatase 108 39 - 117 U/L 12/28/2024 2:17 PM [facility] Total Bilirubin 0.3 0.0 - 1.2 mg/dL 12/28/2024 2:17 PM [facility] Globulin 3.5 gm/dL 12/28/2024 2:17 PM [facility] Comment:Calculated Result A/G Ratio 1.0 g/dL 12/28/2024 2:17 PM [facility] BUN/Creatinine Ratio 23.4 7.0 - 25.0 12/28/2024 2:17 PM [facility] Anion Gap 18.3(H) 5.0 - 15.0 mmol/L 12/28/2024 2:17 PM [facility] eGFR 22.7(L) >60.0 mL/min/1.7 3 12/28/2024 2:17 PM EDT [facility] Blood Venipuncture / Unknown 12/28/2024 1:18 PM EDT 12/28/2024 1:27 PM EDT [facility] - 12/28/2024 2:17 PM EDT GFR [...] does not include race as a factor Chavo Santana MD LAB BLOOD ORDERABLES Rand l Result Performing Organization Address City/[facility]/ZIP Co de Phone Number [facility]
[address] [place] [address], [place] [phone] * (ABNORMAL) Hemoglobin A1c (06/30/2024 3:12 AM EDT) Hemoglobin A1C 10.90(H) 4.80 - 5.60 % 06/30/2024 4:36 AM EDT [facility] Blood Venipuncture / Unknown 06/30/2024 3:12 AM EDT 06/30/2024 4:21 AM EDT [facility] - 06/30/2024 4:36 AM EDT Hemoglobin A1C Ranges: Increased Risk for Diabetes 5.7% to 6.4% Diabetes >= 6.5% Diabetic Goal < 7.0% Horacio Quan MD LAB BLOOD ORDERABLES Final Res ult Performing Organization Address City/[facility]/ZIP Co de Phone Number [facility]
[address] [place] [address], * (ABNORMAL) Lipid Panel (05/26/2024 3:15 PM EST) Total Cholesterol 155 0 - 200 mg/dL 05/26/2024 4:35 PM EST [facility] Triglycerides 165(H) 0 - 150 mg/dL 05/26/2024 4:35 PM EST [facility] HDL Cholesterol 53 40 - 60 mg/dL 05/26/2024 4:35 PM EST [facility] LDL Cholesterol 74 0 - 100 mg/dL 05/26/2024 4:35 PM EST [facility] VLDL Cholesterol 28 5 - 40 mg/dL 05/26/2024 4:35 PM EST [facility] LDL/HDL Ratio 1.30 05/26/2024 4:35 PM EST [facility] Blood Line / Unknown 05/26/2024 3: 15 PM EST 05/26/2024 3:19 PM EST [facility] - 05/26/2024 4:35 PM EST Cholesterol [...] APRN LAB BLOOD ORDERABLES Fin al Result [facility]
[address] [place] [address], from Last 3 Months or Most Recently [...] or is breathing): Full Support Care Teams Co Founder & Ceo Relationship Specialty Start Date End Date Saulo Martinez DO [address] [place] [address] PCP - General Internal Medicine 08/23/24
--- OUTSIDE RECORDS SUMMARY | 2024-12-30 08:05 | XMS_ITS | Encounter Summary ---
Author Organization [facility] Address [address] [place] [address] Care Team Providers Care Er Physician Name Role Phone Saulo Martinez Primary Care Provider + Encounter Details Date Type Department Care Team (Latest Contact Info) Description 12/28/2024 Travel Social History Tobacco Use Types Packs/Day Years Used Date Smoking Tobacco: Never Passive Smoke Exposure: Never Smokeless Tobacco: Never Alcohol Use Standard Drinks/Week Comments Not Currently 0 (1 standard drink = 0.6 oz pur e alcohol) rare [facility] Utilities Answer Date Recorded In the past 12 months has [employer], gas, oil, or water [employer] threatened to shut off services in your [...] and heating? Not hard at all 08/19/2024 [place] [facility] Health - Occupational Stress [...] GED or equivalent No 08/19/2024 Preferred Language Tongan 08/19/2024 PHQ-2 Answer Date Recorded Patient Health Questionnaire-2 Score 0 08/19/2024 Sex and Gender Information Value Date Recorded Sex Assigned at Not on file Legal Sex Male 10:58 PM EST Gender Identity Not on file Sexual Orientation Not on file documented as of this encounter Functional Status * Calculated C-SSRS Risk Score (Lifetime/Recent) Answer Date of Assessment Author No Risk Indicated 12/28/2024 12:54 PM EDT Derrick Rosales RN * Carter Suicide Severity Rating Scale (Screener/Recent Self-Report) Question Answer Date of Assessment Author 1. Wish to be (Past 1 Month) No 12/28/2024 12:54 PM EDT Duke Coleman RN 2. Non-Specific Active Suicidal Thoughts (Past 1 Month) No 12/28/2024 12:54 PM EDT Duke Coleman RN 6. Suicidal Behavior (Lifetime) No 12/28/2024 12:54 PM EDT Duke Coleman RN documented as of this encounter Plan of Treatment Not on file documented as of this encounter Visit Diagnoses Not on filedocumented in this encounter Additional Health Concerns Infection Onset Date Last Indicated Resolved Time COVID Screen (preop/placement) 12/28/2024 12/28/2024 12/28/2024 2:52 PM EDT documented as of this encounter Care Teams Er Physician Relationship Specialty Start Date End Date Saulo Martinez DO [address] [place] [address] PCP - General Internal Medicine 08/23/24 documented as of this encounter
--- OUTSIDE RECORDS SUMMARY | 2024-12-30 08:06 | XMS_ITS | Encounter Summary ---
Author Organization [facility] [place] [address] Care Team Providers Care Strategy Consultant Name Role Phone Lincoln Hillman MD Primary Care Provider [phone] Juan Cantu MD Primary Care Provider [phone] Kym Frias RN Unavailable Unavailable Julee Giang MAGNETIC TESTING TECHNICIAN Unavailable Unavailable Encounter Details Date Type Department Care Team (Late st Contact Info) Description 02/11/2018 Lab Requisition [facility] [address] [facility] [place] [id number] Cullen Resendez, [address] [place] [address] Cardiac arrhythmia Social History Tobacco [...] 182 <=200 mg/dL 02/11/2018 8:58 AM EDT [facility] Comment: < 200 Desirable 200 - 239 Borderline High >= 240 High Triglyceride 213(H) <=150 mg/dL 02/11/2018 8:58 AM EDT [facility] HDL 36(L) 40 - 60 mg/dL 02/11/2018 8:58 AM EDT [facility] LDL Calculated 103 mg/dL 02/11/2018 8:58 AM EDT [facility] Comment: Desireable LDL Cholesterol: <130 mg/dL Borderline High Risk LDL Chol: 130-159 mg/dL High Risk LDL Cholesterol: >=160 mg/dL Coronary Risk Factor 19.8 02/11/2018 8:58 AM EDT [facility] Comment: Coronary Risk Factor......Male....Female 1/2 Average...............29.2....30.6 Average...................20.1....22.5 2X Average................10.5....14.2 3X Average................ 4.3.... 9.1 Blood VENOUS BLOOD / Unknown 02/11/2018 7:23 AM EDT 02/11/2018 7:36 AM EDT Cullen Resendez DO CHEMISTRY ORDERABLES Final Resul t Performing Organization Address City/State/[facility] Co de Phone Number [facility] [address] [place] [address] documented in this encounter Visit Diagnoses Diagnosis Cardiac arrhythmia Cardiac dysrhythmia, unspecified documented in this encounter Care Teams Strategy Consultant Relationship Specialty Start Date End Date Lincoln Hillman MD [address] [place] [address] PCP - General Family Medicine 03/25/18 08/26/18 Juan Cantu MD [address] [facility] [place] [address] PCP - General Internal Medicine 08/27/18 03/27/24 Kym Frias RNair pollution analyst Team 07/25/19 08/24/19 Julee Giang LCSW Care Transition Team 01/06/20 0 documented as of this encounter
--- OUTSIDE RECORDS SUMMARY | 2024-12-30 08:06 | XMS_ITS | Encounter Summary ---
Author Organization [facility] [place] [address] Care Team Providers Care Harpsichord Maker Name Role Phone Lincoln Hillman MD Primary Care Provider [phone] Juan Cantu MD Primary Care Provider [phone] Kym Frias RN Unavailable Unavailable Julee Giang SCIENCE INSTRUCTOR Unavailable Unavailable Encounter Details Date Type Department Care Team (Late st Contact Info) Description 02/08/2018 Lab Requisition [facility] [address] [place] [address] Cullen Resendez, [address] [place] [address] [phone] Heart failure (HCC) Social History Tobacco Use [...] - 11.0 x10(3)/mcL 02/08/2018 6:37 AM EDT [facility] RBC 5.06 4.30 - 5.90 x10(6)/mcL 02/08/2018 6:37 AM EDT [facility] Hgb 13.9 13.2 - 17.3 g/dL 02/08/2018 6:37 AM EDT [facility] Hct 43.2 39.0 - 55.0 % 02/08/2018 6:37 AM EDT [facility] MCV 85.4 81.0 - 101.0 fL 02/08/2018 6:37 AM EDT [facility] MCH 27.5 27.0 - 31.0 pg 02/08/2018 6:37 AM EDT [facility] MCHC 32.2(L) 33.0 - 36.0 g/dL 02/08/2018 6:37 AM EDT [facility] Platelet 260 150 - 400 x10(3)/mcL 02/08/2018 6:37 AM EDT [facility] MPV 9.8 7.4 - 10.4 fL 02/08/2018 6:37 AM EDT [facility] Neut Percent 57.4 % 02/08/2018 6:37 AM EDT [facility] Lymph Percent 33.2 % 02/08/2018 6:37 AM EDT [facility] Carson Percent 5.9 % 02/08/2018 6:37 AM EDT [facility] Eos Percent 2.6 % 02/08/2018 6:37 AM EDT [facility] Baso Percent 0.4 % 02/08/2018 6:37 AM EDT [facility] RDW 40.1 35.1 - 43.9 fL 02/08/2018 6:37 AM EDT [facility] NRBC Auto % 0.0 <=1.0 % 02/08/2018 6:37 AM EDT [facility] Imm Gran% 0.5 % 02/08/2018 6:37 AM EDT [facility] IMMGRAN# 0.0 <=0.0 x10(3)/mcL 02/08/2018 6:37 AM EDT [facility] Neut # 4.2 1.8 - 7.7 x10(3)/[facility] 02/08/2018 6:37 AM EDT [facility] Lymph # 2.4 1.0 - 4.8 x10(3)/[facility] 02/08/2018 6:37 AM EDT [facility] Carson # 0.4 0.0 - 0.8 x10(3)/[facility] 02/08/2018 6:37 AM EDT [facility] Eos# 0.2 0.0 - 0.7 x10(3)/[facility] 02/08/2018 6:37 AM EDT [facility] Baso # 0.0 0.0 - 0.2 x10(3)/[facility] 02/08/2018 6:37 AM EDT [facility] Blood VENOUS BLOOD / Unknown Venipuncture / Unknown 02/08/2018 6:07 AM EDT 02/08/2018 6:26 AM EDT us Cullen Resendez DO HEMATOLOGY ORDERABLES Final Resu lt [facility] [address] [place] [address] * (ABNORMAL) BASIC METABOLIC PANEL (02/08/2018 6:07 AM EDT) Sodium 140 137 - 145 mmol/L 02/08/2018 7:09 AM EDT [facility] Potassium 4.2 3.5 - 5.1 mmol/L 02/08/2018 7:09 AM EDT [facility] Chloride 99 98 - 107 mmol/L 02/08/2018 7:09 AM EDT [facility] Total CO2 34(H) 22 - 30 mmol/L 02/08/2018 7:09 AM EDT [facility] Anion Gap 7 7 - 16 mmol/L 02/08/2018 7:09 AM EDT [facility] Calcium 9.5 8.4 - 10.3 mg/dL 02/08/2018 7:09 AM EDT [facility] BUN 13 9 - 20 mg/dL 02/08/2018 7:09 AM EDT [facility] Creatinine 0.54(L) 0.66 - 1.25 mg/dL 02/08/2018 7:09 AM EDT [facility] GFR Afr Am 136 >=60 mL/min/1.7 3 m2 02/08/2018 7:09 AM EDT [facility] GFR Non Afr Am 117 >=60 mL/min/1.7 3 m2 02/08/2018 7:09 AM EDT [facility] Comment: This estimated GFR was [...] - 99 mg/dL 02/08/2018 7:09 AM EDT [facility] Blood VENOUS BLOOD / Unknown 02/08/2018 6:07 AM EDT 02/08/2018 6:27 AM EDT Cullen Resendez DO CHEMISTRY ORDERABLES Final Resul t [facility] [address] [facility] [place] [id number] documented in this encounter Visit Diagnoses Diagnosis Heart failure (HCC) Heart failure, unspecified documented in this encounter Care Teams Harpsichord Maker Relationship Specialty Start Date End Date Lincoln Hillman MD [address] [place] [address] PCP - General Family Medicine 03/25/18 08/26/18 Juan Cantu MD [address] [place] [address] PCP - General Internal Medicine 08/27/18 03/27/24 Kym Frias, gas station operator Team 07/25/19 08/24/19 Julee Giang LCSW Care Transition Team 01/06/20 0 documented as of this encounter
--- OUTSIDE RECORDS SUMMARY | 2024-12-30 08:07 | XMS_ITS | Clinical Summary ---
Author Organization Healthcare Address [address] [place] [address] Care Team Providers Care Electrical Prospecting Supervisor Name Role Phone Unavailable Primary Care Provider Unavailabl e Encounters Date Type Department Care Team Description 10/05/2024 - 10/06/2024 12:50 AM EDT Emergency [facility] Emergency Department [address] [place] [address] Discharge Disposition: ED Dismiss - [...]
--- OUTSIDE RECORDS SUMMARY | 2024-12-30 08:07 | XMS_ITS | Encounter Summary ---
Author Organization [facility] [place] [address] Care Team Providers Care Jig Operator Name Role Phone Lincoln Hillman MD Primary Care Provider [phone] Juan Cantu MD Primary Care Provider [phone] Kym Frias RN Unavailable Unavailable Julee Giang CDA TEACHER Unavailable Unavailable Encounter Details Date Type Department Care Team (Late st Contact Info) Description 12/28/2017 Lab Requisition [facility] [address] [place] [address] Cullen Resendez, [address] [place] [id number] Atrial fibrillation (HCC) Social History Tobacco [...] x10(3)/mcL 12/28/2017 7:46 AM EDT [facility] RBC 5.17 4.30 - 5.90 x10(6)/mcL 12/28/2017 7:46 AM EDT [facility] Hgb 14.3 13.2 - 17.3 g/dL 12/28/2017 7:46 AM EDT [facility] Hct 44.3 39.0 - 55.0 % 12/28/2017 7:46 AM EDT [facility] MCV 85.7 81.0 - 101.0 fL 12/28/2017 7:46 AM EDT [facility] MCH 27.7 27.0 - 31.0 pg 12/28/2017 7:46 AM EDT [facility] MCHC 32.3(L) 33.0 - 36.0 g/dL 12/28/2017 7:46 AM EDT [facility] Platelet 245 150 - 400 x10(3)/mcL 12/28/2017 7:46 AM EDT [facility] MPV 9.8 7.4 - 10.4 fL 12/28/2017 7:46 AM EDT [facility] Neut Percent 58.2 % 12/28/2017 7:46 AM EDT [facility] Lymph Percent 31.9 % 12/28/2017 7:46 AM EDT [facility] Percent 6.3 % 12/28/2017 7:46 AM EDT [facility] Eos Percent 2.9 % 12/28/2017 7:46 AM EDT [facility] Baso Percent 0.4 % 12/28/2017 7:46 AM EDT [facility] RDW 41.3 35.1 - 43.9 fL 12/28/2017 7:46 AM EDT [facility] NRBC Auto % 0.0 <=1.0 % 12/28/2017 7:46 AM EDT [facility] Imm Gran% 0.3 % 12/28/2017 7:46 AM EDT [facility] IMMGRAN# 0.0 <=0.0 x10(3)/mcL 12/28/2017 7:46 AM EDT [facility] Neut # 5.4 1.8 - 7.7 x10(3)/[facility] 12/28/2017 7:46 AM EDT [facility] Lymph # 3.0 1.0 - 4.8 x10(3)/[facility] 12/28/2017 7:46 AM EDT [facility] # 0.6 0.0 - 0.8 x10(3)/[facility] 12/28/2017 7:46 AM EDT [facility] Eos# 0.3 0.0 - 0.7 x10(3)/[facility] 12/28/2017 7:46 AM EDT [facility] Baso # 0.0 0.0 - 0.2 x10(3)/[facility] 12/28/2017 7:46 AM EDT [facility] Blood VENOUS BLOOD / Unknown 12/28/2017 6:05 AM EDT 12/28/2017 7:05 AM EDT Cullen Resendez DO HEMATOLOGY ORDERABLES Final Resu lt [facility] [address] [place] [address] [phone] * (ABNORMAL) BASIC METABOLIC PANEL (12/28/2017 6:05 AM EDT) Sodium 138 137 - 145 mmol/L 12/28/2017 7:57 AM EDT [facility] Potassium 3.8 3.5 - 5.1 mmol/L 12/28/2017 7:57 AM EDT [facility] Chloride 100 98 - 107 mmol/L 12/28/2017 7:57 AM EDT [facility] Total CO2 29 22 - 30 mmol/L 12/28/2017 7:57 AM EDT [facility] Anion Gap 9 7 - 16 mmol/L 12/28/2017 7:57 AM EDT [facility] Calcium 9.0 8.4 - 10.3 mg/dL 12/28/2017 7:57 AM EDT [facility] BUN 17 9 - 20 mg/dL 12/28/2017 7:57 AM EDT [facility] Creatinine 0.81 0.66 - 1.25 mg/dL 12/28/2017 7:57 AM EDT [facility] GFR Afr Am 115 >=60 mL/min/1.7 3 m2 12/28/2017 7:57 AM EDT [facility] GFR Non Afr Am 99 >=60 mL/min/1.7 3 m2 12/28/2017 7:57 AM EDT [facility] Comment: This estimated GFR [...] mg/dL 12/28/2017 7:57 AM EDT [facility] Blood VENOUS BLOOD / Unknown 12/28/2017 6:05 AM EDT 12/28/2017 7:24 AM EDT Cullen Resendez DO CHEMISTRY ORDERABLES Final Resul t [facility] [address] [facility] [place] [id number] documented in this encounter Visit Diagnoses Diagnosis Atrial fibrillation (HCC) Atrial fibrillation documented in this encounter Care Teams Jig Operator Relationship Specialty Start Date End Date Lincoln Hillman MD [address] [facility] [address] [place] [address] PCP - General Family Medicine 03/25/18 08/26/18 Juan Cantu MD [address] [place] [address] [place] [address] PCP - General Internal Medicine 08/27/18 03/27/24 Frias, Kym A, psychology tech Team 07/25/19 08/24/19 Julee Giang LCSW Care Transition Team 01/06/20 0 documented as of this encounter
--- OUTSIDE RECORDS SUMMARY | 2024-12-30 08:07 | XMS_ITS | Encounter Summary ---
Author Organization [facility] [address] Care Team Providers Care Treasury Director Name Role Phone Lincoln Hillman MD Primary Care Provider [phone] Juan Cantu MD Primary Care Provider [phone] Kym Frias RN Unavailable Unavailable Julee Giang TOWEL HEMMER Unavailable Unavailable Encounter Details Date Type Department Care Team (Late st Contact Info) Description 01/11/2018 Lab Requisition [facility] [address] [place] [address] Cullen Resendez, [address] [place] [address] [phone] Type 2 diabetes mellitus without complications (HCC) [...] CBC WITH DIFF (01/11/2018 5:31 AM EDT) [facility] WBC 10.9 4.5 - 11.0 x10(3)/mcL 01/11/2018 6:16 AM EDT [facility] RBC 5.34 4.30 - 5.90 x10(6)/mcL 01/11/2018 6:16 AM EDT [facility] Hgb 14.7 13.2 - 17.3 g/dL 01/11/2018 6:16 AM EDT [facility] Hct 45.9 39.0 - 55.0 % 01/11/2018 6:16 AM EDT [facility] MCV 86.0 81.0 - 101.0 fL 01/11/2018 6:16 AM EDT [facility] MCH 27.5 27.0 - 31.0 pg 01/11/2018 6:16 AM EDT [facility] MCHC 32.0(L) 33.0 - 36.0 g/dL 01/11/2018 6:16 AM EDT [facility] Platelet 284 150 - 400 x10(3)/mcL 01/11/2018 6:16 AM EDT [facility] MPV 9.7 7.4 - 10.4 fL 01/11/2018 6:16 AM EDT [facility] Neut Percent 61.8 % 01/11/2018 6:16 AM EDT [facility] Lymph Percent 28.6 % 01/11/2018 6:16 AM EDT [facility] Scott Percent 6.2 % 01/11/2018 6:16 AM EDT [facility] Eos Percent 2.4 % 01/11/2018 6:16 AM EDT [facility] Baso Percent 0.5 % 01/11/2018 6:16 AM EDT [facility] RDW 40.7 35.1 - 43.9 fL 01/11/2018 6:16 AM EDT [facility] NRBC Auto % 0.0 <=1.0 % 01/11/2018 6:16 AM EDT [facility] Imm Gran% 0.5 % 01/11/2018 6:16 AM EDT [facility] IMMGRAN# 0.1(H) <=0.0 x10(3)/[facility] 01/11/2018 6:16 AM EDT [facility] Neut # 6.7 1.8 - 7.7 x10(3)/[facility] 01/11/2018 6:16 AM EDT [facility] Lymph # 3.1 1.0 - 4.8 x10(3)/[facility] 01/11/2018 6:16 AM EDT [facility] Scott # 0.7 0.0 - 0.8 x10(3)/[facility] 01/11/2018 6:16 AM EDT [facility] Eos# 0.3 0.0 - 0.7 x10(3)/[facility] 01/11/2018 6:16 AM EDT [facility] Baso # 0.1 0.0 - 0.2 x10(3)/[facility] 01/11/2018 6:16 AM EDT [facility] Blood VENOUS BLOOD / Unknown 01/11/2018 5:31 AM EDT 01/11/2018 5:56 AM EDT us Cullen Resendez DO HEMATOLOGY ORDERABLES Final Resu lt [facility] [address] [place] [phone] * (ABNORMAL) BASIC METABOLIC PANEL (01/11/2018 5:31 AM EDT) Sodium 138 137 - 145 mmol/L 01/11/2018 6:48 AM EDT [facility] Potassium 4.0 3.5 - 5.1 mmol/L 01/11/2018 6:48 AM EDT [facility] Chloride 100 98 - 107 mmol/L 01/11/2018 6:48 AM EDT [facility] Total CO2 34(H) 22 - 30 mmol/L 01/11/2018 6:48 AM EDT [facility] Anion Gap 4(L) 7 - 16 mmol/L 01/11/2018 6:48 AM EDT [facility] Calcium 8.9 8.4 - 10.3 mg/dL 01/11/2018 6:48 AM EDT [facility] BUN 20 9 - 20 mg/dL 01/11/2018 6:48 AM EDT [facility] Creatinine 0.82 0.66 - 1.25 mg/dL 01/11/2018 6:48 AM EDT [facility] GFR Afr Am 114 >=60 mL/min/1.7 3 m2 01/11/2018 6:48 AM EDT [facility] GFR Non Afr Am 99 >=60 mL/min/1.7 3 m2 01/11/2018 6:48 AM EDT [facility] Comment: This estimated GFR was [...] - 99 mg/dL 01/11/2018 6:48 AM EDT [facility] Blood VENOUS BLOOD / Unknown 01/11/2018 5:31 AM EDT 01/11/2018 5:57 AM EDT Cullen Resendez DO CHEMISTRY ORDERABLES Final Resul t [facility] [address] [facility] [place] [phone] documented in this encounter Visit Diagnoses Diagnosis Type 2 diabetes mellitus without complications (HCC) Type II or unspecified type diabetes mellitus without mention of complication, not stated as uncontrolled documented in this encounter Care Teams Treasury Director Relationship Specialty Start Date End Date Lincoln Hillman MD [address] [place] [address] PCP - General Family Medicine 03/25/18 08/26/18 Juan Cantu MD [address] [place], [place] [address] [address] PCP - General Internal Medicine 08/27/18 03/27/24 Kym Frias RNstress analyst Team 07/25/19 08/24/19 Julee Giang LCSW Care Transition Team 01/06/20 0 documented as of this encounter
--- OUTSIDE RECORDS SUMMARY | 2024-12-30 08:07 | XMS_ITS | Encounter Summary ---
Author Organization [facility] [place] [address] Care Team Providers Care Loader Machine Name Role Phone Juan Cantu MD Primary Care Provider [phone] Encounter Details Date Type Department Care Team (Late st Contact Info) Description 11/09/2023 Lab Requisition [facility] [address] [place] [address] Aixa Aguilera MD [address] [place] [address] [place] [address] Hypertension secondary to endocrine disorders; Type [...] from your doctor or pharmacy? Never 10/26/2023 [facility] Utilities Answer Date Recorded In [...] often do you attend chur ch or gnosticist services? Never 10/26/2023 Do you belong to any clubs o r organizations such as mosque groups, unions, fraternal or athletic groups, or [...] Date Recorded PHQ-2 Total Score 2 10/26/2023 [facility] - Occupational Stress Questionnaire Answer [...] place to sleep or slept in a chcf (including now)? No 07/16/2022 Housing Stability Vital Sign Answer Te e Recorded In the last 12 months, was t here a time when you were not able to pay the mortgage or rent on time? No 10/22/2023 In the past 12 months, how m any times have you moved where you were living? 1 10/22/2023 At any time in the past 12 m [facility], were you homeless or living in a chcf (including now)? No 10/22/2023 Education Answer Date [...] AM EDT) WBC 6.0 4.5 - 11.0 x10(3)/[facility] 11/09/2023 8:21 AM EDT [facility] RBC 4.42 4.30 - 5.90 x10(6)/mcL 11/09/2023 8:21 AM EDT [facility] Hgb 10.7(L) 13.2 - 17.3 g/dL 11/09/2023 8:21 AM EDT [facility] Hct 36.0(L) 39.0 - 55.0 % 11/09/2023 8:21 AM EDT [facility] MCV 81.4 81.0 - 101.0 fL 11/09/2023 8:21 AM EDT [facility] MCH 24.2(L) 27.0 - 31.0 pg 11/09/2023 8:21 AM EDT [facility] MCHC 29.7(L) 33.0 - 36.0 g/dL 11/09/2023 8:21 AM EDT [facility] Platelet 302 150 - 400 x10(3)/[facility] 11/09/2023 8:21 AM EDT [facility] MPV 9.9 7.4 - 10.4 fL 11/09/2023 8:21 AM EDT [facility] Neut Percent 50.9 % 11/09/2023 8:21 AM EDT [facility] Lymph Percent 33.9 % 11/09/2023 8:21 AM EDT [facility] Percent 9.9 % 11/09/2023 8:21 AM EDT [facility] Eos Percent 4.0 % 11/09/2023 8:21 AM EDT [facility] Baso Percent 0.8 % 11/09/2023 8:21 AM EDT [facility] RDW 48.1(H) 35.1 - 43.9 fL 11/09/2023 8:21 AM EDT [facility] NRBC Auto % 0.0 <=1.0 % 11/09/2023 8:21 AM EDT [facility] Imm Gran% 0.5 % 11/09/2023 8:21 AM EDT [facility] IMMGRAN# 0.0 <=0.0 x10(3)/[facility] 11/09/2023 8:21 AM EDT [facility] Neut # 3.0 1.8 - 7.7 x10(3)/[facility] 11/09/2023 8:21 AM EDT [facility] Lymph # 2.0 1.0 - 4.8 x10(3)/[facility] 11/09/2023 8:21 AM EDT [facility] # 0.6 0.0 - 0.8 x10(3)/[facility] 11/09/2023 8:21 AM EDT [facility] Eos# 0.2 0.0 - 0.7 x10(3)/[facility] 11/09/2023 8:21 AM EDT [facility] Baso # 0.1 0.0 - 0.2 x10(3)/[facility] 11/09/2023 8:21 AM EDT [facility] Blood VENOUS BLOOD / Unknown 11/09/2023 7:29 AM EDT 11/09/2023 7:30 AM EDT us Aixa Aguilera MD HEMATOLOGY ORDERABLES Final Re sult [facility] [address] [place] [address] * (ABNORMAL) BASIC METABOLIC PANEL (11/09/2023 7:29 AM EDT) Sodium 136 135 - 145 mmol/L 11/09/2023 8:22 AM EDT [facility] Potassium 3.9 3.8 - 4.9 mmol/L 11/09/2023 8:22 AM EDT [facility] Chloride 100 98 - 107 mmol/L 11/09/2023 8:22 AM EDT [facility] Total CO2 33(H) 21 - 29 mmol/L 11/09/2023 8:22 AM EDT [facility] Anion Gap 3(L) 7 - 16 mmol/L 11/09/2023 8:22 AM EDT [facility] Calcium 9.1 8.4 - 10.2 mg/dL 11/09/2023 8:22 AM EDT [facility] BUN 17 9 - 20 mg/dL 11/09/2023 8:22 AM EDT [facility] Creatinine 0.70 0.52 - 1.25 mg/dL 11/09/2023 8:22 AM EDT [facility] Glucose Lvl 231(H) 70 - 140 mg/dL 11/09/2023 8:22 AM EDT [facility] eGFR (CKD-EPIcr 2020) 104 >=60 mL/min/1.7 3 m2 11/09/2023 8:22 AM EDT [facility] Comment:Estimated GFR was ca lculated using the CKD-EPIcr (2020) equation refit without race. The equation is recommended by the [employer] - [place] [employer] Task Force. 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
--- OUTSIDE RECORDS SUMMARY | 2024-12-30 08:07 | XMS_ITS | Encounter Summary ---
Author Organization [facility] [place] [address] Care Team Providers Care Research Soil Scientist Name Role Phone Lincoln Hillman MD Primary Care Provider [phone] Juan Cantu MD Primary Care Provider [phone] Kym Frias RN Unavailable Unavailable Julee Giang QUILT SEWER Unavailable Unavailable Encounter Details Date Type Department Care Team (Late st Contact Info) Description 01/07/2018 Lab Requisition [facility] LAB [address] [place], [place] [id number] Cullen Resendez, [address] [place] [address] Type 2 diabetes mellitus without [...] AM EDT) WBC 13.1(H) 4.5 - 11.0 x10(3)/[facility] 01/07/2018 8:48 AM EDT [facility] RBC 5.24 4.30 - 5.90 x10(6)/[facility] 01/07/2018 8:48 AM EDT [facility] Hgb 14.8 13.2 - 17.3 g/dL 01/07/2018 8:48 AM EDT [facility] Hct 44.6 39.0 - 55.0 % 01/07/2018 8:48 AM EDT [facility] MCV 85.1 81.0 - 101.0 fL 01/07/2018 8:48 AM EDT [facility] MCH 28.2 27.0 - 31.0 pg 01/07/2018 8:48 AM EDT [facility] MCHC 33.2 33.0 - 36.0 g/dL 01/07/2018 8:48 AM EDT [facility] Platelet 262 150 - 400 x10(3)/[facility] 01/07/2018 8:48 AM EDT [facility] MPV 10.6(H) 7.4 - 10.4 fL 01/07/2018 8:48 AM EDT [facility] Neut Percent 70.3 % 01/07/2018 8:48 AM EDT [facility] Lymph Percent 20.8 % 01/07/2018 8:48 AM EDT [facility] [place] Percent 6.2 % 01/07/2018 8:48 AM EDT [facility] Eos Percent 2.5 % 01/07/2018 8:48 AM EDT [facility] RDW 42.1 35.1 - 43.9 fL 01/07/2018 8:48 AM EDT [facility] Neut # 9.2(H) 1.8 - 7.7 x10(3)/[facility] 01/07/2018 8:48 AM EDT [facility] Lymph # 2.7 1.0 - 4.8 x10(3)/[facility] 01/07/2018 8:48 AM EDT [facility] [place] # 0.8 0.0 - 0.8 x10(3)/[facility] 01/07/2018 8:48 AM EDT [facility] Eos# 0.3 0.0 - 0.7 x10(3)/[facility] 01/07/2018 8:48 AM EDT [facility] Baso # 0.0 0.0 - 0.2 x10(3)/[facility] 01/07/2018 8:48 AM EDT [facility] Blood VENOUS BLOOD / Unknown 01/07/2018 6:31 AM EDT 01/07/2018 7:25 AM EDT us Cullen Resendez DO HEMATOLOGY ORDERABLES Final Resu lt [facility] [address] [place], [place] [id number] * (ABNORMAL) BASIC METABOLIC PANEL (01/07/2018 6:31 AM EDT) Sodium 137 137 - 145 mmol/L 01/07/2018 9:42 AM EDT [facility] Potassium 4.1 3.5 - 5.1 mmol/L 01/07/2018 9:42 AM EDT [facility] Chloride 100 98 - 107 mmol/L 01/07/2018 9:42 AM EDT [facility] Total CO2 28 22 - 30 mmol/L 01/07/2018 9:42 AM EDT [facility] Anion Gap 9 7 - 16 mmol/L 01/07/2018 9:42 AM EDT [facility] Calcium 9.1 8.4 - 10.3 mg/dL 01/07/2018 9:42 AM EDT [facility] BUN 18 9 - 20 mg/dL 01/07/2018 9:42 AM EDT [facility] Creatinine 0.70 0.66 - 1.25 mg/dL 01/07/2018 9:42 AM EDT [facility] GFR Afr Am 122 >=60 mL/min/1.7 3 m2 01/07/2018 9:42 AM EDT [facility] GFR Non Afr Am 105 >=60 mL/min/1.7 3 m2 01/07/2018 9:42 AM EDT [facility] Comment: This estimated GFR was calculated [...] - 99 mg/dL 01/07/2018 9:42 AM EDT [facility] Blood VENOUS BLOOD / Unknown 01/07/2018 6:31 AM EDT 01/07/2018 7:25 AM EDT us Cullen Resendez DO CHEMISTRY ORDERABLES Final Resul t [facility] [address] [place] [address] documented in this encounter Visit Diagnoses Diagnosis Type 2 diabetes mellitus without complications (HCC) Type II or unspecified type diabetes mellitus without mention of complication, not stated as uncontrolled documented in this encounter Care Teams Research Soil Scientist Relationship Specialty Start Date End Date Lincoln Hillman MD [facility] [address] [place] [address] [place] [address] PCP - General Family Medicine 03/25/18 08/26/18 Juan Cantu MD [address] [place] [address] [place] [address] PCP - General Internal Medicine 08/27/18 03/27/24 Kym Frias RNsenior mainframe developer Team 07/25/19 08/24/19 Julee Giang LCSW Care Transition Team 01/06/20 0 documented as of this encounter
--- OUTSIDE RECORDS SUMMARY | 2024-12-30 08:07 | XMS_ITS | Clinical Summary ---
Author Organization [facility] Address [address] [place] [address] Phone Care Team Providers Care Examination Proctor Name Role Phone Unavailable Primary Care Provider [...] cellulitis. Patient had been following in the [facility] wound clinic with Dr. Fischer, but has [...] cuff is unreliable. He has some dizziness. Way Inspector to place an art line. Septic shock 10/22/2023 Assessment & Plan (10/27/2023 7:24 PM EDT): Post IV fluids. Antibiotics. Very short-lived Levophed peripherally in the ICU. Septic shock resolved. Assessment & Plan (10/26/2023 1:59 PM EDT): Post IV fluids. Antibiotics. Very short-lived Levophed peripherally in the ICU. Septic shock resolved. Assessment & Plan (10/22/2023 5:50 PM EDT): Sepsis Evaluation: [place] body weight: 84.5 kg (186 lb 4.6 [...] sepsis) RR>= 22 Resp: 16 GCS< 15 Potter Coma Scale Score: 15 SBP< 100 mmHg [...] Overview (05/19/2023): Patient was referred to the [facility] ED. I personally contacted the ED. Shortness [...] artery disease 07/08/2022 Overview (08/18/2022): Status post RN RESOURCE NURSE left anterior tibial artery and left popliteal artery. Survey Instrument Operator Dr. Espinoza. Assessment & Plan (10/30/2023 9:20 [...] revascularization to the left lower extremity with RN RESOURCE NURSE to the left popliteal artery and anterior tibial artery orthodox of three-vessel runoff to the left foot [...] was consulted. He had PV angiography with RN RESOURCE NURSE to the left popliteal artery and anterior tibial artery 07/07/[address] Naranoj. He was started on plavix. Plan: Continue plavix 75mg daily Continue apixaban 5mg BID Stopped Statin at patient's request followup with cardiology Assessment & Plan (07/12/2022 5:12 PM EDT): Cardiology saw the patient this admission. They started Plavix, patient is already on Eliquis for A-fib Per procedure report Dr. Naranjo, 07/07/2022: Impression: Successful revascularization to the left lower extremity with RN RESOURCE NURSE to the left popliteal artery and anterior tibial artery orthodox of three-vessel runoff to the left foot [...] p.o. twice daily for 30 days 3. [place] offloading with dressing change, walker, knee roller [...] was consulted. He had PV angiography with RN RESOURCE NURSE tot he left popliteal artery and anterior [...] on Friday 07/28. CBC, CMP every Thursday [place] 5-325 1-2 tab Q6 PRN pain Continue [...] will follow-up outpatient Orthopedic surgery follow-up outpatient [place] for pain management until follow-up with Dr. [...] (07/04/2022): Added automatically from request for surgery [id number] Wound healing, delayed 06/30/2022 Overview (07/07/2022): Added automatically from request for surgery [id number] MDD (major depressive disord er), recurrent episode, [...] fibrillation 07/19/2020 Overview (08/18/2022): Chronic atrial fibrillation [id number] score of 3 Assessment & Plan (10/27/2023 [...] able to void without issue. Echo from [facility] in 2018 with LV EF 50-55%, tough [...] (07/02/2022): Added automatically from request for surgery [id number] Venous stasis ulcer of right lower extremity [...] completed on this admission. There is a [facility] notation of Osteomyelitis of the left fibula [...] an outpatient. This can be done at [facility] outpatient therapy, or an F. It is [...] to his appointment with Dr. Day. 3. [facility] orders: Will need dressing changes QOD [...] his pain, we will put him on FARM AGENT with continuous rate, but he will need [...] - continue coreg Echo 2018 from [facility]: Assessment & Plan (04/02/2018 6:18 PM EST): [...] Foot Abcess and Intra-operative Cultures; Surgeon: Yifan Barno DO; Location: [facility] MAIN OR; Service: Orthopedics IR PICC [...] from your doctor or pharmacy? Never 10/26/2023 [facility] Utilities Answer Date Recorded In the past 12 months has th e [employer], gas, oil, or water [employer] threatened to shut off services in your [...] week 10/26/2023 How often do you attend [facility] or jewish services? Never 10/26/2023 Do you belong to any clubs o r organizations such as moravian groups, unions, fraternal or athletic groups, or [...] Date Recorded PHQ-2 Total Score 2 10/26/2023 [facility] [place] of Occupat ional Health - Occupational Stress [...] to sleep or slept in a senior living (including now)? No 07/16/2022 Housing Stability Vital Sign Answer Te e Recorded In the last 12 months, was t here a time when you were not able to pay the mortgage or rent on time? No 10/22/2023 In the past 12 months, how m any times have you moved where you were living? 1 10/22/2023 At any time in the past 12 m [facility], were you homeless or living in a senior living (including now)? No 10/22/2023 Education Answer Date [...] this topic Medical Devices Implanted Type Area Field Consultant Device Identifier Shelf Expiration Date Model / Serial / Lot Floseal Hemostatic Matrix 10ml - [id number] Implanted:Qty: 6 on 03/29/2018 by Clark Moulton MD at [facility] N/A: Spine Thoracic [employer] 07/28/2019 [id number] / / [id number] Screw Multi Axial 5.5 X 30 Ti - [id number] Implanted:Qty: 4 on 03/29/2018 by Clark Moulton MD at [facility]/A: Spine Thoracic [employer] [id number] / / Screw Multi Axial 5.5 X 35 Ti - [id number] Implanted:Qty: 4 on 03/29/2018 by Clark Moulton MD at [facility] N/A: Spine Thoracic [employer] [id number] / / Screw Multi Axial 5.5 X 40 Ti - [id number] Implanted:Qty: 8 on 03/29/2018 by Clark Moulton MD at [facility]: Spine Thoracic [employer] [id number] / / Matrix Dural Regeneration 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 - [id number] Implanted:Qty: 1 on 03/29/2018 by Clark Moulton MD at [facility] N/A: Spine Thoracic [employer] 10/10/2020 [id number] / / [id number] John Matrix 5cm - [id number] Implanted:Qty: 1 on 03/29/2018 by Clark Moulton MD at [facility] 07/05/2020 [id number] / / Procedures Procedure Name Priority Date/Time [...] BASIC METABOLIC PANEL (11/09/2023 7:29 AM EDT) [facility] Sodium 136 135 - 145 mmol/L 11/09/2023 8:22 AM EDT [facility] Potassium 3.9 3.8 - 4.9 mmol/L 11/09/2023 8:22 AM EDT [facility] Chloride 100 98 - 107 mmol/L 11/09/2023 8:22 AM EDT [facility] Total CO2 33(H) 21 - 29 mmol/L 11/09/2023 8:22 AM EDT [facility] Anion Gap 3(L) 7 - 16 mmol/L 11/09/2023 8:22 AM EDT [facility] Calcium 9.1 8.4 - 10.2 mg/dL 11/09/2023 8:22 AM EDT [facility] BUN 17 9 - 20 mg/dL 11/09/2023 8:22 AM EDT [facility] Creatinine 0.70 0.52 - 1.25 mg/dL 11/09/2023 8:22 AM EDT [facility] Glucose Lvl 231(H) 70 - 140 mg/dL 11/09/2023 8:22 AM EDT [facility] eGFR (CKD-EPIcr 2020) 104 >=60 mL/min/1.7 3 m2 11/09/2023 8:22 AM EDT [facility] Comment:Estimated GFR was ca lculated using the CKD-EPIcr (2020) equation refit without race. The equation is recommended by the National Kidney Foundation - [place] Society of Nephrology Task Force. Blood VENOUS BLOOD / Unknown 11/09/2023 7:29 AM EDT 11/09/2023 7:30 AM EDT Aixa Aguilera MD CHEMISTRY ORDERABLES Final Res ult Performing Organization Address [facility] Co de Phone Number [facility] [address] [place] [address] * (ABNORMAL) HEMOGLOBIN A1C (10/23/2023 4:03 AM EDT) Hgb A1C 9.2(H) <=5.6 % 10/23/2023 12:41 PM EDT [facility] Comment:Indicative of diabet es Est. Avg Glucose 217 mg/dL 10/23/2023 12:41 PM EDT [facility] Blood VENOUS BLOOD / Unknown Venipuncture / Unknown 10/23/2023 4:03 AM EDT 10/23/2023 4:08 AM EDT Rafael Lisa MD CHEMISTRY ORDERABLES Final Res ult Performing Organization Address [facility] Co de Phone Number [facility] [address] [place] [address] * MICROALBUMIN/CREATININE RATIO URINE (08/22/2022) Pathologist [facility] Sodium 138 137 - 147 MMOL/L [facility] [...] OFFICE Calcium 9.10 8.70 - 10.70 MG/DL [facility] OFFICE Urine URINE SPECIMEN COLLECTION / Unknown 08/22/2022 Juan Cantu MD URINE ORDERABLES Final Re sult Performing Organization Address [facility]/ZIP Co de Phone Number [facility] OFFICE * (ABNORMAL) LIPID SCREEN (07/14/2022 5:15 AM EDT) Cholesterol 163 <=200 mg/dL 07/14/2022 5:54 AM EDT [facility] Comment: < 200 Desirable 200 - 239 Borderline High >= 240 High Triglyceride 155(H) <=150 mg/dL 07/14/2022 5:54 AM EDT [facility] HDL 36(L) >=50 mg/dL 07/14/2022 5:54 AM EDT [facility] LDL Calculated 96 mg/dL 07/14/2022 5:54 AM EDT [facility] Comment: Desireable LDL Cholesterol: <130 mg/dL Borderline High Risk LDL Chol: 130-159 mg/dL High Risk LDL Cholesterol: >=160 mg/dL Blood VENOUS BLOOD / Unknown Venipuncture / Unknown 07/14/2022 5:15 AM EDT 07/14/2022 5:26 AM EDT Olga Lovelace NP CHEMISTRY ORDERABLES Final Res ult Performing Organization Address City/[facility]/ZIP Co de Phone Number [facility] [address] [place] [address] from Last 3 Months or Most Recently Relevant to Health Maintenance Insurance [facility] MEDICARE ADVANTAGE PPO [id number] Advance Directives For more information, please contact: [phone] * Full Code (Latest Code Status on [...]
--- NOTE | 2024-12-30 08:18 | ECG_ITS ---
APPROVED REPORT Exam: Resting ECG HR:125 bpm ECG Measurements Heart Rate 125 AXES QRSd 114 QRS 130 QT 352 T 3 QTc 426 Conclusion ATRIAL FIBRILLATION WITH RAPID VENTRICULAR RESPONSE WITH ABERRANT CONDUCTION OR VENTRICULAR PREMATURE COMPLEXES INCOMPLETE RIGHT BUNDLE BRANCH BLOCK [90+ ms QRS DURATION, TERMINAL R IN V1/V2, 40+ ms S IN I/aVL/V4/V5/V6] POSSIBLE RIGHT VENTRICULAR HYPERTROPHY [SOME/ALL OF: PROMINENT R IN V1, LATE TRANSITION, RAD, SYLVIE, SSS] ABNORMAL ECG UNCONFIRMED REPORT Electronically signed by : Cullen Felix, 12/30/2024 16:38:32
[2024-12-30 08:21] LABS: Microscopic, Urine URINE MICROSCOPIC (MICROSCOPIC)
--- NOTE | 2024-12-30 08:29 | PC.NURSE ---
lab at bedside to draw labs as patient picc line will not draw
[2024-12-30 08:42] LABS: Hematocrit 24.7 % (42.0-52.0); Hemoglobin 7.4 g/dL (14.1-18.0); Immature Granulocytes % 0.8 %; Mean Corpuscular HGB Conc 30.0 g/dL (31.8-35.4); Mean Corpuscular Hemoglobin 20.7 pg (27.0-31.2); Mean Corpuscular Volume 69.2 fl (80-94); Nucleated Red Blood Cells % 0 %; Platelet Count 476 K/mm3 (142-424); Red Blood Count 3.57 M/mm3 (4.60-6.20); Red Cell Distribution Width-SD 51.1 fL; White Blood Count 16.8 K/mm3 (4.8-10.8)
[2024-12-30 08:45] LABS: Bilirubin,Urine Negative (Negative); Color,Urine YELLOW (Yellow); Glucose,Urine (UA) Negative (Negative); Ketones,Urine TRACE (Negative); Leukocyte Esterase,Urine 1+ (Negative); PH,Urine 6.0 (5.0-8.5); Protein,Urine 2+ (Negative); Specific Gravity, Urine 1.020 (1.005-1.030); Urobilinogen,Urine 0.2 EU/dl (0.2)
[2024-12-30 08:49] LABS: Albumin Level 3.7 g/dl (3.5-5.0); Chloride 89 mmol/L (98-107); Potassium 3.4 mmoL/L (3.5-5.1); Sodium 134 mmol/L (136-145)
[2024-12-30 08:52] LABS: Alanine Aminotransferase 15 U/L (12-78); Albumin/Globulin Ratio 1.1 (1.1-1.8); Alkaline Phosphatase 128 U/L (38-126); Anion Gap 24.4 mEq/L (5-15); Aspartate Amino Transferase 25 U/L (17-59); Bilirubin,Total 1.4 mg/dl (0.2-1.3); Calcium 8.3 mg/dl (8.4-10.2); Carbon Dioxide 24 mmol/L (22.0-30.0); Creatinine Clearance Estimated 22 mL/min (50-200); Estimated Glomerular Filt Rate 14 ml/min (>60); GFR (African American) 17 ML/MIN (>60); Globulin 3.3 g/dL (1.3-3.2); Glucose 157 mg/dl (74-100); Total Protein,Serum 7.0 g/dl (6.3-8.2)
[2024-12-30] MEDS: ONDANSETRON 4MG/2ML VIAL 4 MG IV (08:56)
[2024-12-30] MEDS: MORPHINE 4MG/ML SYRINGE 4 MG IV (08:56)
[2024-12-30] MEDS: METOPROLOL TARTRATE 5MG/5ML VIAL 5 MG IV (08:57)
[2024-12-30 09:00] LABS: Bacteria,Urine 2+ /lpf; RBC,Urine Occasional #/hpf (0-3); WBC,Urine 20-50 #/hpf (0-3)
[2024-12-30 09:03] LABS: NT Pro Brain Natriuretic Pep. 21400 pg/mL (0-125)
[2024-12-30 09:05] LABS: Troponin I 0.04 ng/ml (0.00-0.034)
[2024-12-30 09:26] LABS: Blood Urea Nitrogen 86 mg/dl (9-20); Creatinine,Serum 4.20 mg/dl (0.66-1.25)
--- NOTE | 2024-12-30 09:30 | PC.NURSE ---
Dr. Felix notified of BUN 86 and Cr. 4.2.
[2024-12-30] MEDS: MEROPENEM 1 GM in 0.9 % SODIUM CHLORIDE 100 ML IV (09:48)
--- NOTE | 2024-12-30 10:00 | PC.NURSE ---
Dr. Felix speaking with [facility].
--- NOTE | 2024-12-30 10:02 | PC.NURSE ---
MIAH LEAL on phone with [facility]
[2024-12-30 10:27] LABS: D-Dimer 0.65 ug/mL (0.0-0.5)
== END 2024-12-30 11:34 | disposition other institution (70) ==
PROVIDERS: Emergency Provider Student in an Organized Health Care Education/Training Program; PCP Internal Medicine
DX: R06.02 Shortness of breath (principal); L89.153 Pressure ulcer of sacral region, stage 3; N39.0 Urinary tract infection, site not specified; I48.91 Unspecified atrial fibrillation; N17.9 Acute kidney failure, unspecified; E11.621 Type 2 diabetes mellitus with foot ulcer; E66.01 Morbid (severe) obesity due to excess calories; I11.0 Hypertensive heart disease with heart failure; R50.9 Fever, unspecified; I50.9 Heart failure, unspecified; L97.529 Non-pressure chronic ulcer of other part of left foot with unspecified severity; Z79.4 Long term (current) use of insulin
CPT/HCPCS: 36415; 71045; 80053; 81001; 83880; 84484; 85025; 85378; 87086; 93005; 96374; 96375; 99285; J2185; J2270; J2405